=== PATIENT | male | born 1975 | race Caucasian/White ===

== ENCOUNTER 2023-03-22 13:37 | Outpatient (OUT) | payer BC, SELFPAY ==
--- NOTE | 2023-03-22 13:37 | CONS_ITS ---
PAIN MANAGEMENT CONSULTATION ? CONSULTATION DATE: ??03/22/2023 ? TO:? Jaymie Haas M.D. ? CHIEF COMPLAINT:? Includes left lower back pain.? ? HISTORY:? Patient returns today complaining of 3-7/10 pain in her left lower back area, sharp in character, increased with activities such as standing, walking and performing transitioning maneuvers. ?She feels most comfortable in the semi-recumbent position.? Denies any change in bowel and bladder habits or new sensorimotor changes in the lower extremities. ? MEDICATIONS:? Current medications include Flexeril 20 mg at h.s., Percocet which she uses sparingly, 5 mg pills, one pill daily p.r.n.? She reports it does improve her quality of life, level of functioning and sleep pattern.? When she does take the medications, she denies any side effects. ? EXAM:? Notable for patient having no clinical radiculopathy or myelopathy involving the lower extremities; however, she has severe pain with lumbar facet loading maneuvers on the left side.? It appears to be most significant at possibly the L4 level.? She has significant myofascial spasm, which is also quite severe, along the left erector spinae muscle. ? IMPRESSION:? Our impression is patient appears to have chronic pain secondary to lumbosacral spondylosis on the left side, possibly most severe at the L4-5 level.? It was difficult to determine the level involved.? There is associated significant myofascial spasm of the left erector spinae muscle. ? RECOMMENDATIONS:? I have recommended she undergo lumbosacral spine films.? I have placed a skin marker over the most painful area, and review of the same revealed the patient to have a skin marker over the left L3-L4 facet joint area.? I have discontinued Flexeril.? I have placed her on Zanaflex 4 mg pills, half a pill to one pill t.i.d.? I did start aquatic therapy and to consider proceeding with trigger point injection of the left erector spinae muscle in the office.? Will see the patient back in the office in approximately 4-6 weeks? time or sooner if needed. ? As part of providing excellent, safe, comprehensive care, the following was completed at our patient's visit: ? 1. A medication reconciliation and review to ensure accurate knowledge of current/active medications, including asking our patients to inform us about any raqr-nmn-qmjkaoc medications or herbal remedies/nutritional supplements/alternative remedies. ? 2. A review to specifically ensure our patients have had annual screening for: elevated body mass index (BMI, see intake chart for exact total), tobacco use, screening for depression, and screening for unhealthy alcohol use.? When screening is concerning, patients are provided with education and the specific recommendation to discuss the concerning health issue and treatment options with their primary care provider.? MTDD
== END 2023-03-22 13:38 | disposition home or self-care (01) ==
LOC: PM 13:37
PROVIDERS: PCP Family Medicine; Visit Provider Nurse Practitioner
DX: M54.50 Low back pain, unspecified (principal); M47.816 Spondylosis without myelopathy or radiculopathy, lumbar region; M51.36 Other intervertebral disc degeneration, lumbar region; M47.817 Spondylosis without myelopathy or radiculopathy, lumbosacral region; G89.29 Other chronic pain; M62.838 Other muscle spasm
CPT/HCPCS: 72114; G0463

== ENCOUNTER 2023-03-22 14:40 | Outpatient (OUT) | payer BC, SELFPAY ==
--- NOTE | 2023-03-22 | XR_ITS ---
The [address] [address] Patient Name: SUSHILA YATES MRN: [id number] date: 1975 Sex: M Assigned Patient Location: [facility] Current Patient Location: Accession/Order Number: [id number] Exam Date: 03/22/2023 15:19 Report Date: 03/23/2023 05:39 At the request of: SANDY SALAZAR Procedure: XR lumbar spine 6V w bending EXAMINATION: XR lumbar spine 6V w bending HISTORY: Lumbar Pain , chronic COMPARISON: No relevant comparison available. FINDINGS: BONES: Mild degenerative facet arthropathy L3-L4 through L5-S1. No significant spondylosis, scoliosis, fracture, or visible bony lesion. DISC SPACES: Slight disc space narrowing L4-L5, L5-S1. PARASPINOUS: Negative. No paraspinous abnormality is seen. OTHER: Skin surface marker projects posterior to the L3-L4 left facet. XR/XR lumbar spine 6V w bending IMPRESSION: 1. Mild degenerative disc disease and facet arthropathy of the lower lumbar spine. Electronically authenticated by: ROBERT RAI Date: 03/23/2023 05:39
== END 2023-03-22 14:41 | disposition home or self-care (01) ==
PROVIDERS: PCP Family Medicine; Visit Provider Anesthesiology Pain Medicine
DX: M54.50 Low back pain, unspecified (principal); M47.816 Spondylosis without myelopathy or radiculopathy, lumbar region; M51.36 Other intervertebral disc degeneration, lumbar region
CPT/HCPCS: 72114

== ENCOUNTER 2023-06-14 14:43 | Outpatient (OUT) | payer BC, SELFPAY ==
--- NOTE | 2023-06-14 | CONS_ITS ---
CONSULTATION DATE: ??06/14/2023 TO:? Jaymie Haas M.D. HISTORY:? Patient was seen today complaining of pain in multiple areas, mainly his left lower back area, ore than the right side.? It was not associated with spasm.? He describes the pain as overall being 5-7/10 pain, sharp in character, increased with activities such as standing, walking and performing transitioning maneuvers.? He feels most comfortable in the semi-recumbent position.? Denies any change in bowel and bladder habits or new sensorimotor changes in the lower extremities.? MEDICATION:? Current medication includes tizanidine 4 mg b.i.d. to t.i.d., Percocet which he takes infrequently.? He reports, when he does take the medicine, it does improve in history symptoms, quality of life and sleep pattern.? Again, he takes this infrequently, possibly two to a maximum of three times per week and he denies any side effects with the use of the same. EXAM:? His examination is notable for patient having no clinical radiculopathy or myelopathy involving the lower extremities.? Patient had severe pain with lumbar facet loading maneuvers occurring bilaterally from L2 through L5, mainly at L2-3 and L4-5, with associated myofascial spasm of the erector spinae muscle, predominantly on the left side, most severe at the L5 level.? Currently, patient has no signs consistent with myelopathy or radiculopathy on today?s visit. IMPRESSION:? Our impression is patient has chronic pain secondary to lumbosacral spondylosis with facet loading pain clinically.? His last RFA performed at L2-3 and L4-5 was on 06/30/2021 and 07/14/2021.? RECOMMENDATIONS:? I recommend we proceed with a bilateral L2-3 and L4-5 RFA under fluoroscopic guidance, with anesthesia.? I have also recommended trigger point injection on today?s visit for the left erector spinae muscle using 2 mL of 2% lidocaine, 2 mL of 0.25% Marcaine and 10 mg of Kenalog.? Of note, status post which, patient reports a marked reduction in pain symptoms.? As part of providing excellent, safe, comprehensive care, the following was completed at our patient's visit: 1. A medication reconciliation and review to ensure accurate knowledge of current/active medications, including asking our patients to inform us about any [id number]-wxmxsoj medications or herbal remedies/nutritional supplements/alternative remedies. 2. A review to specifically ensure our patients have had annual screening for: elevated body mass index (BMI, see intake chart for exact total), tobacco use, screening for depression, and screening for unhealthy alcohol use.? When screening is concerning, patients are provided with education and the specific recommendation to discuss the concerning health issue and treatment options with their primary care provider. JANINE
--- NOTE | 2023-06-14 | CONS_ITS ---
PROCEDURE DATE: ??06/14/2023 PROCEDURE:? Trigger point injection left erector spinae muscle at the L5 level in the office. PREOPERATIVE DIAGNOSIS:? Pain secondary to myofascial spasm left erector spinae muscle, lumbar spondylosis. POSTOPERATIVE DIAGNOSIS:? Pain secondary to myofascial spasm left erector spinae muscle, lumbar spondylosis. SOLUTION USED FOR INJECTION:? 2 mL of 2% lidocaine, 2 mL of 0.25% Marcaine and 10 mg of Kenalog, total of 5 mL, and 3 mL used for the injection at the site. IMMEDIATE COMPLICATIONS:? None. PROCEDURE:? After informed consent was obtained from the patient, placed in the prone position.? Skin overlying the area was prepped with alcohol.? A 25 gauge 1 ?? needle was inserted at the substance of the left erector spinae muscle, approximately 2 cm from midline at the L5 level.?? Needle tip was advanced there was a mild twitch response, at which point we injected 3 mL of solution.? No indication of intravascular or intraneural needle tip placement or injection.? Patient tolerated the procedure well without complications, reports a reduction in pain symptoms post procedurally. JANINE
== END 2023-06-14 14:44 | disposition home or self-care (01) ==
LOC: PM 14:43
PROVIDERS: PCP Family Medicine; Visit Provider Anesthesiology Pain Medicine
DX: M62.838 Other muscle spasm (principal); M47.816 Spondylosis without myelopathy or radiculopathy, lumbar region; M47.817 Spondylosis without myelopathy or radiculopathy, lumbosacral region
CPT/HCPCS: 20552

== ENCOUNTER 2023-06-28 09:46 | Day surgery (SDC) | payer BC, SELFPAY ==
[2023-06-28 10:34] VITALS: BP 159/102; PULSE 69; RESP 16; TEMP 37.3; O2SAT 96
[2023-06-28] MEDS: 0.9 % SODIUM CHLORIDE 500 ML IV (10:44)
[2023-06-28] MEDS: METHYLPREDNISOLONE ACETATE 40 MG/ML VIAL INJ (11:57)
[2023-06-28] MEDS: LIDOCAINE HCL 2% 400 MG/20 ML MDV 15 ML INJ (11:57)
[2023-06-28] MEDS: BUPIVACAINE HCL 0.25% PF 25 MG/10 ML VIAL 6 ML INJ (11:57)
--- NOTE | 2023-06-28 12:12 | W.PM.PROCNOT ---
Date of procedure: 06/28/23 Pre-op diagnosis: Lumbar Spondylosis Post-op diagnosis: same as pre-op Procedure: Bilateral Lumbar 2/3, 4/5 Radiofrequency ablation Under fluoroscopic guidance Rhizotomy was created using radio frequency ablation at 80?C for 90 seconds 1 to 2 lesions created at each site. Post lesioning injection of 2 mL each of 0.25% Marcaine and 2% lidocaine with Depo-Medrol 40mg. 0.5 to 1 mL injected at each site IV in place yes If Intravenous fluids: NS at KVO Anesthesia local 2% lidocaine for Anesthesia Other: MAC Timeout process compliant After informed consent obtained.Patient brought to the procedure room placed in the prone position skin overlying the area was prepped and draped in a sterile fashion using betadine. 25 gauge needle was used to create a skin wheal over each of the targeted areas utilizing 2% lidocaine. A rhizotomy needle with a 10 mm active tip was inserted over each of the anesthetized areas and directed towards each of the medial branches accomplished under fluoroscopic guidance. after encountering the same we had positive sensory stimulation, negative motor stimulation was noted. lesions were then created. Post lesioning, steroid solution was injected needles removed. Patient was transferred to recovery room in stable condition to be discharged home after meeting criteria. Anesthesia: MAC Surgeon: Sha Johnson Condition: stable
[2023-06-28 12:23] VITALS: BP 154/99; PULSE 80; RESP 16; O2SAT 97
--- NOTE | 2023-06-28 16:37 | PC.NURSE ---
Pt was advised at time of discharge to take BP med when he returned home as he had skipped it early am of procedure d/t NPO.
== END 2023-06-28 12:54 | disposition home or self-care (01) ==
LOC: SURGOUT 09:46
PROVIDERS: PCP Family Medicine; Visit Provider Anesthesiology Pain Medicine
DX: M47.816 Spondylosis without myelopathy or radiculopathy, lumbar region (principal)
CPT/HCPCS: 64635; 64636; J1030; J2704

== ENCOUNTER 2023-07-20 09:47 | Outpatient (OUT) | payer BC, SELFPAY ==
--- NOTE | 2023-07-20 10:18 | P.CN_ITS ---
Consult Note: HPI Data of Consult Patient: known to practice within the last 3 years Requesting Physician: Cheryl Arango NP Primary Care Provider: Jaymie Haas MD Consult Narrative Reason for consult: f/u Narrative: Prosper Milian a pleasant 47 year old male presents for evaluation and management of chronic pain. today 0/10, reporting 100% relief in pain and functional improvement post bilateral L2,3 4,5 thermal RFA. Finds benefit from current medication regimen, tolerating well without side effects. cc:: CC: Cheryl Arango NP Review of Systems ROS Status of ROS 10 or more systems reviewed and unremark able except as noted in history and [facility] (Updated 07/20/23 @ 10:25 by Cheryl Arango NP) Subdural hematoma ?S06.5XAA - Traumatic subdural hemorrhage with loss of consciousness status unknown, initial encounter (ICD-10) Osteoarthritis ?M19.90 - Unspecified osteoarthritis, unspecified site (ICD-10) Asthma ?J45.909 - Unspecified asthma, uncomplicated (ICD-10) HTN (hypertension) ?I10 - Essential (primary) hypertension (ICD-10) Meds Home Medications and Allergies Home Medications Medication Instructions Recorded Confirmed Type albuterol sulfate 90 mcg/actuation 2 inh inhalation Q3H PRN shortness 03/22/23 03/22/23 History aerosol inhaler of breath or wheezing dexamethasone 6 mg tablet 6 mg PO DAILY 03/22/23 03/22/23 History diclofenac sodium 50 mg 50 mg PO BID 03/22/23 03/22/23 History tablet,delayed release fluticasone propionate 110 2 inh inhalation BID 03/22/23 03/22/23 History mcg/actuation HFA aerosol inhaler lisinopril 20 mg tablet 20 mg PO DAILY 03/22/23 03/22/23 History metoprolol tartrate 25 mg tablet 25 mg PO DAILY 03/22/23 03/22/23 History ondansetron HCl 8 mg tablet 8 mg PO TID 03/22/23 03/22/23 History oxycodone-acetaminophen 5 mg-325 1 tab PO DAILY 03/22/23 03/22/23 History mg tablet (Endocet) simvastatin 20 mg tablet 20 mg PO DAILY 03/22/23 03/22/23 History sumatriptan succinate 50 mg tablet See Rx Instructions PO .COMPLEX 03/22/23 03/22/23 History tizanidine 4 mg capsule 4 mg PO TID PRN muscle spasticity 03/22/23 03/22/23 History Allergies Allergy/AdvReac Type Severity Reaction Status Date / Time nubain Allergy Unknown Uncoded 03/22/23 15:33 Exam Constitutional Documenting provider has reviewed patient's vital signs: yes Common normals: no apparent distress, oriented x3, healthy appearing, alert and well nourished General appearance: cooperative HENMT Common normals: normocephalic, hearing grossly normal bilaterally and moist oral mucous membranes Head and scalp: normocephalic Eye Common normals: PERRL Pupil: PERRL Neck & C-Spine Common normals: full ROM General: normal visual inspection Chest Common normals: inspection of chest normal Respiratory Common normals: normal respiratory effort, no retractions and no use of accessory muscles Back & Pelvis Lumbar spine/lower back: lumbar ROM normal and other soft tissue findings (right lower paraspinal muscle tenderness) Other: no radiculopathy negative facet loading Extremity Common normals: normal to inspection and full ROM Neuro Common normals: oriented x3, CN's II-XII intact bilaterally, moves all extremities, no focal motor deficits, no sensory deficits noted and deep tendon reflexes 2+ bilaterally Sensorium/orientation: alert Motor exam: strength 5/5 throughout and no movement abnormalities noted Psych Common normals: mental status grossly normal, thought process normal, cooperative, affect normal, speech normal and activity/motor behavior normal Speech: normal speech Thought process: normal thought process Results Additional Findings Additional findings: I have checked an [place] report on this patient today and there are no aberrancies noted in the prescribing history.?? A drug screen was completed and reviewed within the last year, and if there has not been a drug screen completed we ordered one today to monitor higher risk, state monitored pain medication use. As part of providing excellent, safe, comprehensive care, the following was completed at our patient's visit: 1. A medication reconciliation and review to ensure accurate knowledge of current/active medications, including asking our patients to inform us about any osxs-swr-yggrvuc medications or herbal remedies/nutritional supplemen ts/alternative remedies. 2. A review to specifically ensure our patients have had annual screening for: elevated body mass index (BMI), tobacco use, screening for depression, and screening for unhealthy alcohol use. When screening is concerning, patients are provided with education and the specific recommendation to discuss the concerning health issue and treatment options with their primary care provider. Assessment and Plan Assessment and Plan (1) Lumbar spondylosis: (2) Chronic prescription opiate use: Assessment and Plan: I feel these medications are improving the patient's quality of life and allow them to tolerate activities of daily living as well as participate in recreational activity.? The patient does not report intolerable side effects. The patient is NOT opioid naive and non-pharmacologic and non-opioid treatment has failed to significantly relieve the patient's pain and improve functionality. The patient has a diagnosis that is related to a somatic or visceral pain etiology. ? ?? I reviewed with the patient the potential risks and side effects with the use of? opioid medications including but not limited to respiratory depression,? sedation, and even . I verified the patient has access to naloxone should? these effects occur. I advised the patient to avoid the use of any other? sedation substances including alcohol, THC, and benzodiazepines while? taking opioid medications due to the risk of compounding side effects and? detrimental outcomes. I reviewed the REGISTERED RADIATION THERAPIST, pain treatment agreement, urine? drug screen, and opioid start talking forms. The patient was advised to let? their family know they had Naloxone in case they would need to administer? the medication.? ?? A drug screen was completed within the last year, and no aberrancies were noted regarding their use of controlled substances. The patient understands they are subject to the terms and conditions of the pain contract that they have signed. ? ?? I have checked an [place] report on this patient today and there are no aberrancies noted in the prescribing history.? (3) Muscle spasm: Plan continue current medication regimen, tolerating well without side effects. finding functional benefit. f/u as needed
== END 2023-07-20 09:48 | disposition home or self-care (01) ==
LOC: PM 09:47
PROVIDERS: PCP Family Medicine; Visit Provider Nurse Practitioner
DX: M47.816 Spondylosis without myelopathy or radiculopathy, lumbar region (principal); Z79.891 Long term (current) use of opiate analgesic; M62.838 Other muscle spasm
CPT/HCPCS: G0463

== ENCOUNTER 2023-08-22 14:02 | Outpatient (OUT) | payer BC, SELFPAY ==
--- OUTSIDE RECORDS SUMMARY | 2023-08-22 14:14 | XMS_ITS | CCD ---
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 Name Role Phone Jaymie Mart MD Primary Care Provider [phone] HAMILTON CUMMINGS Referring Unavailable JAYMIE MART Primary Care Unavailable JAYMIE MART Primary Care Unavailable HAMILTON CUMMINGS Referring Unavailable Jaymie Mart Unavailable Austin aBrahona Unavailable Kurtis Patel Admitting UnavailKurtis Maldonado Attending Unavailadrianne e Jaymie Mart Primary Care Unavailable PANTOJA ., DR ALLYSON Tellez Attending Unavailable PANTOJA ., DR ALLYSON Tellez Admitting Unavailable MA ., HANNA Consulting Unavailable BARRON, DR JAYMIE Gonzalez Primary Care Unavailable BARRON, DR JAYMIE Gonzalez Primary Care Unavailable LAKSHMIPATHY ., SANDY Admitting Ginger vailable LAKSHMIPATHY ., SANDY Attending Ginger vailable PANTOJA ., DR ALLYSON Tellez Admitting Unavailable PANTOJA ., DR ALLYSON Tellez Consulting Unavailable PANTOJA ., DR ALLYSON Tellez Attending Unavailable BARRON, DR JAYMIE Gonzalez Primary Care Unavailable PANTOJA ., DR ALLYSON Tellez Admitting Unavailable PANTOJA ., DR ALLYSON Tellez Attending Unavailable MA ., HANNA Consulting Unavailable BARRON, DR JAYMIE Gonzalez Primary Care Unavailable PANTOJA ., DR ALLYSON Tellez Admitting Unavailable PANTOJA ., DR ALLYSON Tellez Consulting Unavailable PANTOJA ., DR ALLYSON Tellez Attending Unavailable BARRON, DR JAYMIE Gonzalez Primary Care Unavailable MA ., HANNA Attending Unavailable MA ., HANNA Admitting Unavailable BARRON, DR JAYMIE Gonzalez Primary Care Unavailable DR ROBERT RAI Consulting Unavailable MA ., HANNA Consulting Unavailable BARRON, DR JAYMIE Gonzalez Consulting Unavailable BARRON, DR JAYMIE Gonzalez Attending Unavailable BARRON, DR JAYMIE Gonzalez Admitting Unavailable BARRON, DR JAYMIE Gonzalez Primary Care Unavailable BARRON, DR JAYMIE Gonzalez Primary Care Unavailable BARRON, DR JAYMIE Gonzalez Consulting Unavailable MART, DR JAYMIE Gonzalez Attending Unavailable MART, DR JAYMIE Gonzalez Admitting Unavailable ALFONZO FERNANDEZ Consulting Unavailable MART, DR JAYMIE Gonzalez Primary Care Unavailable MART, DR JAYMIE Gonzalez Consulting Unavailable MART, DR JAYMIE Gonzalez Attending Unavailable MART, DR JAYMIE Gonzalez Admitting Unavailable PANTOJA ., DR ALLYSON Tellez Attending Unavailable PANTOJA ., DR ALLYSON Tellez Admitting Unavailable MA ., HANNA Consulting Unavailable BARRON, DR JAYMIE Gonzalez Primary Care Unavailable PANTOJA ., DR ALLYSON Tlelez Attending Unavailable PANTOJA ., DR ALLYSON Tellez Admitting Unavailable MA ., HANNA Consulting Unavailable BARRON, DR JAYMIE Gonzalez Primary Care Unavailable MART, DR JAYMIE Gonzalez Primary Care Unavailable PANTOJA ., DR ALLYSON Tellez Attending Unavailable PANTOJA ., DR ALLYSON Tellez Admitting Unavailable MA ., HANNA Consulting Unavailable Allergies Allergy Classification Reported Allergen(s) Allergy Type Date of Onset Reaction(s) Facility Nalbuphine (2 sources) Nalbuphine Drug Allergy 7 [facility] Opioid Agonists (2 sources) traMADol Drug Allergy 1 Nausea And Vomiting [facility] (13 sources) Nalbuphine; Translations: [Nubain] Drug Allergy 7 BP dropped [facility] Repository (5 sources) traMADol Drug Allergy 6 Unknown [facility] Other (5 sources) Nubain *ANALGESICS - OPIOID* Propensity to adverse reactions Unknown [facility] Other (3 sources) Allergies Reconciled Propensity to adverse reactions Unknown [facility] Other (3 sources) patient allergy list reviewed by nurse or physicia Propensity to adverse reactions 9 Comment:Done [facility] Other Medications Current Medications Medication Drug Class(es) Dates Sig (Normalized) Sig (Original) acetaminophen 325 mg / oxyCODONE hydrochloride 5 mg oral tablet (3 sources) Opioid Agonist take 1 tablet by mouth every six hours oxyCODONE-Acetamin ophen 5-325 MG 1 tablet as needed Orally every 6 hrs Active albuterol 0.83 mg/ml inhalation solution (20 sources) beta2-Adrenergic Agonist Albuterol Sulfate (2.5 MG/3ML) 0.083% 3 mL as needed Inhalation every 6 hrs Active take 1 puff(s) by in halation every four hours as needed Albuterol Sulfate HFA 108 (90 Base) MCG/ACT INHALE 1 PUFF INTO THE LUNGS EVERY 4 HOURS NEEDED for 30 Active Albuterol Sulfat e (2.5 MG/3ML) 0.083% 3 mL as needed Inhalation every 6 hrs Active take 1 puff(s) by in halation every four hours as needed Albuterol Sulfate HFA 108 (90 Base) MCG/ACT INHALE 1 PUFF INTO THE LUNGS EVERY 4 HOURS NEEDED for 30 Active take 1 puff(s) by in halation every four hours as needed Albuterol Sulfate HFA 108 (90 Base) MCG/ACT 1 puff as needed Inhalation every 4 hrs for 30 days Active azithromycin 250 mg oral tablet (3 sources) Macrolide Antimicrobial Start: 06-03-2023 Azithromycin 250 MG as directed Orally 2 tabs po today, then 1 tab daily x 4 more days for May, Active Start: 12-10-2022 Azithromycin 2 50 MG as directed Orally 2 tabs po today, then 1 tab daily x 4 more days for December, Active cyclobenzaprine hydrochloride 10 mg oral tablet (11 sources) Muscle Relaxant take 2 tablets by mouth once daily at bedtime Cyclobenzaprine HCl 10 MG 2 tabs @ HS Orally Once a day Active diclofenac potassium 50 mg oral tablet (11 sources) Nonsteroidal Anti-inflammatory Drug take 1.5 tablets by mouth once daily Diclofenac Potassium 50 MG 1.5 tabs Orally once a day Active lisinopril 20 mg oral tablet (13 sources) Angiotensin Converting Enzyme Inhibitor take 1 tablet by mouth once daily Lisinopril 20 MG TAKE 1 TABLET BY MOUTH EVERY DAY for 90 Active take 1 tablet by mouth once zuleima y lisinopril (PRINIVIL;ZESTRIL) 10 MG tablet Take 10 mg by mouth daily 0 Active meclizine hydrochloride 12.5 mg oral tablet (1 source) Antiemetic Start: 11-02-2022 take 1 tablet by mouth every eight hours as needed for dizziness Meclizine HCl 12.5 MG 1 tablet as needed Orally every 8 hours as needed for dizziness, may cause sedation for 5 days Oct, Active meloxicam 15 mg oral tablet (2 sources) Nonsteroidal Anti-inflammatory Drug Start: 11-16-2020 take 1 tablet by mouth once daily meloxicam (MOBIC) 15 MG tablet TAKE 1 TABLET BY MOUTH EVERY DAY 0 11/16/2020 Active 24 hr metoprolol succinate 25 mg extended release oral tablet (11 sources) beta-Adrenergic Montserrat take 1 tablet by mouth once daily Metoprolol Succinate ER 25 MG TAKE 1 TABLET BY MOUTH EVERY DAY for 90 Active predniSONE 20 mg oral tablet (6 sources) Start: 12-02-2022 take 2 tablets by mouth every twenty-four hours predniSONE 20 MG 2 tablets Orally Once a day for 5 days Nov, Active Start: 12-02-2022 take 2 tablets by mouth every twenty-four hours simvastatin 20 mg oral tablet (13 sources) HMG-CoA Reductase Inhibitor take 1 tablet by mouth once daily Simvastatin 20 MG TAKE 1 TABLET BY MOUTH EVERY DAY for 90 Active tiZANidine 4 mg oral tablet (2 sources) Central alpha-2 Adrenergic Agonist Start: take 1 tablet by mouth three times daily as needed tiZANidine (ZANAFLEX) 4 MG tablet TAKE 1 TABLET BY MOUTH 3 TIMES A DAY NEEDED 0 11/20/2020 Active traZODone hydrochloride 50 mg oral tablet (2 sources) Serotonin Reuptake Inhibitor Start: take 1 tablet by mouth every twenty-four hours traZODone HCl 50 MG 1 tablet at bedtime as needed Orally Once a day for 30 day(s) Jul, Active valACYclovir 1000 mg oral tablet (1 source) Herpesvirus Nucleoside Analog DNA Polymerase Inhibitor, Herpes Simplex Virus Nucleoside Analog DNA Polymerase Inhibitor, Herpes Zoster Virus Nucleoside Analog DNA Polymerase Inhibitor take 1 tablet by mouth twice daily Valtrex 1 GM 1 tab Orally bid for 1 days Active Completed/Discontinued Medications Medication Drug Class(es) Dates Sig (Normalized) Sig (Original) gabapentin 100 mg oral capsule (1 source) Anti-epileptic Agent Start: 01-30-2021 End: 02-27-2021 gabapentin (NEURONTIN) 100 MG capsule TAKE 2 PILLS THREE TIMES PER DAY 180 capsule 0 01/30/2021 02/27/2021 Discontinued (REORDER) iopamidol (ISOVUE-M 200) 41 % injection (1 source) Start: 02-25-2021 End: 02-25-2021 iopamidol (ISOVUE-M 200) 41 % injection 10 ml lidocaine hydrochloride 20 mg/ml injection (1 source) Antiarrhythmic, Amide Local Anesthetic Start: 02-25-2021 End: 02-25-2021 lidocaine 2 % injection Problems Active Problems Problem Classification Problem Date Documented Date Episodic/Chronic Abdominal pain (6 sources) Generalized abdominal pain; Translations: [Generalized abdominal pain] Onset: 05-01-2014 Episodic Acute bronchitis (1 source) Acute bronchitis, unspecified Episodic Anxiety disorders (13 sources) Generalized anxiety disorder; Translations: [Generalized anxiety disorder] Onset: 08-02-2018 Chronic Asthma (11 sources) Reactive airways dysfunction syndrome; Translations: [Unspecified asthma, uncomplicated] Chronic Chronic obstructive pulmonary disease and bronchiectasis (3 sources) Acute exacerbation of chronic asthmatic bronchitis; Translations: [Chronic obstructive asthma, with (acute) exacerbation] Onset: 10-29-2016 Chronic Chronic obstructive pulmonary disease and bronchiectasis (4 sources) Bronchitis, not specified as acute or chronic; Translations: [BRONCHITIS NOT SPEC ACUTE/CHRON] Onset: 12-10-2022 Episodic Conditions associated with dizziness or vertigo (1 source) Benign paroxysmal vertigo, left ear Episodic Disorders of lipid metabolism (14 sources) Hyperlipidemia; Translations: [Hyperlipidemia, unspecified] Chronic Essential hypertension (6 sources) Benign essential hypertension; Translations: [Essential hypertension, benign] Onset: 01-10-2019 Chronic Headache; including migraine (17 sources) Complicated migraine; Translations: [Migraine with aura, not intractable, without status migrainosus] Chronic Joint disorders and dislocations; trauma-related (3 sources) Traumatic arthropathy of the shoulder region; Translations: [Traumatic arthropathy, shoulder region] Onset: 03-08-2017 Chronic Malaise and fatigue (18 sources) Fatigue; Translations: [Other fatigue] Onset: 07-06-2022 Episodic Miscellaneous mental health disorders (4 sources) Primary insomnia; Translations: [Primary insomnia] Chronic Noninfectious gastroenteritis (14 sources) Acute gastroenteritis; Translations: [Noninfective gastroenteritis and colitis, unspecified] Episodic Osteoarthritis (1 source) Unilateral primary osteoarthritis, left hip; Translations: [UNI PRIM OSTEOARTHRITIS LT HIP] Onset: 04-22-2022 Chronic Other circulatory disease (12 sources) Elevated blood-pressure reading without diagnosis of hypertension; Translations: [Elevated blood-pressure reading, without diagnosis of hypertension] Episodic Other connective tissue disease (4 sources) Cramp and spasm; Translations: [CRAMP AND SPASM] Onset: 09-16-2022 Episodic Other connective tissue disease (5 sources) Other muscle spasm; Translations: [OTHER MUSCLE SPASM] Onset: 06-24-2022 Episodic Other injuries and conditions due to external causes (3 sources) Injury of left lower leg; Translations: [Unspecified injury of left lower leg, initial encounter] Episodic Other nervous system disorders (1 source) Other chronic pain; Translations: [OTHER CHRONIC PAIN] Onset: 06-02-2022 Chronic Other non-traumatic joint disorders (17 sources) Shoulder joint pain; Translations: [Pain in right shoulder] Onset: 03-08-2017 Episodic Other nutritional; endocrine; and metabolic disorders (9 sources) Body mass index 30+ - obesity; Translations: [Obesity, unspecified] Chronic Other nutritional; endocrine; and metabolic disorders (6 sources) Obese class II; Translations: [Body mass index (BMI) 36.0-36.9, adult] Chronic Other nutritional; endocrine; and metabolic disorders (9 sources) Obese class I; Translations: [Body mass index 32.0-32.9, adult] Onset: 10-29-2016 Chronic Other nutritional; endocrine; and metabolic disorders (3 sources) Simple obesity ; Translations: [Other obesity due to excess calories] Onset: 10-29-2016 Chronic Other nutritional; endocrine; and metabolic disorders (3 sources) Obesity; Translations: [Obesity, unspecified] Chronic Other skin disorders (11 sources) Other hypertrophic disorders of the skin; Translations: [Inflamed skin tag] Episodic Other skin disorders (3 sources) Hypertrophic condition of skin; Translations: [Other hypertrophic disorders of the skin] Episodic Other upper respiratory disease (11 sources) Rhinitis; Translations: [Chronic rhinitis] Chronic Other upper respiratory disease (3 sources) Seasonal allergic rhinitis; Translations: [Other seasonal allergic rhinitis] Onset: 01-05-2018 Chronic Other upper respiratory infections (6 sources) Chronic maxillary sinusitis; Translations: [Chronic maxillary sinusitis] Onset: 10-29-2016 Chronic Otitis media and related conditions (3 sources) Non-suppurative otitis media; Translations: [Unspecified nonsuppurative otitis media, right ear] Episodic Residual codes; unclassified (1 source) Family history of malignant neoplasm of digestive organs; Translations: [Family history of malignant neoplasm of digestive organs] Onset: 11-29-2022 Episodic Residual codes; unclassified (3 sources) Family history of malignant neoplasm of gastrointestinal tract; Translations: [Family history of malignant neoplasm of digestive organs] Episodic Respiratory failure; insufficiency; arrest (adult) (11 sources) Chronic respiratory failure; Translations: [Chronic respiratory failure with hypoxia] Chronic Spondylosis; intervertebral disc disorders; other back problems (20 sources) Lumbar spondylosis; Translations: [Spondylosis without myelopathy or radiculopathy, lumbar region] Onset: 02-19-2021 02-19-2021 Chronic Spondylosis; intervertebral disc disorders; other back problems (20 sources) Sciatica; Translations: [Sciatica, left side] Onset: 05-08-2018 02-19-2021 Episodic Syncope (15 sources) Syncope and collapse; Translations: [Syncope and collapse] Onset: 03-31-2022 Episodic Unclassified (1 source) Encounter for screening for malignant neoplasm of colon; Translations: [Encounter for screening for malignant neoplasm of colon] Onset: 11-29-2022 Unclassified (4 sources) LOW BACK PAIN, UNSPECIFIED; Translations: [LOW BACK PAIN, UNSPECIFIED] Onset: 06-02-2022 Unclassified (3 sources) History of disease caused by Severe acute respiratory syndrome coronavirus 2 (situation); Translations: [Personal history of COVID-19] Viral infection (1 source) Viral infection, unspecified Episodic Viral infection (3 sources) Disease caused by 2019-nCoV; Translations: [COVID-19] Past or Other Problems Problem Classification Problem Date Documented Da te Episodic/Chronic Allergic reactions (3 sources) Contact dermatitis; Translations: [Contact dermatitis and other eczema, due to unspecified cause] Onset: 07-18-2018 Episodic Bacterial infection; unspecified site (3 sources) Bacterial infectious disease; Translations: [Bacterial infection, unspecified, in conditions classified elsewhere and of unspecified site] Onset: 10-29-2016 Episodic Fluid and electrolyte disorders (3 sources) Dehydration; Translations: [Dehydration] Onset: 01-05-2018 Episodic Headache; including migraine (3 sources) Cough headache syndrome; Translations: [Primary cough headache] Onset: 10-29-2016 Episodic Immunizations and screening for infectious disease (2 sources) Contact with or exposure to other viral diseases; Translations: [Contact with and (suspected) exposure to covid-19] Onset: 08-26-2020 02-19-2021 Episodic Influenza (3 sources) Upper respiratory tract infection due to Influenza; Translations: [Influenza due to unidentified influenza virus with other respiratory manifestations] Onset: 11-26-2015 Episodic Mycoses (3 sources) Tinea cruris; Translations: [Tinea cruris] Onset: 05-08-2018 Episodic Open wounds of extremities (3 sources) Open wound of hand except fingers without complication; Translations: [Open wound of hand except finger(s) alone, without mention of complication] Onset: 08-25-2015 Episodic Other circulatory disease (2 sources) Elevated blood-pressure reading, without diagnosis of hypertension; Translations: [ELEVATED BP READING W/O DX HTN] Onset: 04-01-2022 Episodic Other connective tissue disease (3 sources) Ganglion of joint; Translations: [Ganglion of joint] Onset: 01-10-2019 Episodic Other connective tissue disease (3 sources) Cramp in limb; Translations: [Cramp of limb] Onset: 02-28-2018 Episodic Other lower respiratory disease (6 sources) Cough; Translations: [Cough, unspecified] Onset: 12-04-2015 Episodic Other non-traumatic joint disorders (4 sources) Pain in left hip; Translations: [PAIN IN LEFT HIP] Onset: 04-20-2022 Episodic Other non-traumatic joint disorders (3 sources) Arthralgia of the ankle and/or foot; Translations: [Pain in joint, ankle and foot] Onset: 05-03-2016 Episodic Residual codes; unclassified (3 sources) Family history of diabetes mellitus; Translations: [Family history of diabetes mellitus] Onset: 01-25-2014 Episodic Residual codes; unclassified (3 sources) C/O - a back symptom; Translations: [Other symptoms referable to back] Onset: 05-17-2016 Episodic Residual codes; unclassified (3 sources) Insomnia; Translations: [Insomnia, unspecified] Onset: 08-02-2018 Episodic Sprains and strains (6 sources) Lumbar sprain; Translations: [Sprain of ligaments of lumbar spine, initial encounter] Onset: 08-27-2014 Episodic Unclassified (1 source) LOW BACK PAIN, UNSPECIFIED; Translations: [LOW BACK PAIN, UNSPECIFIED] Onset: 06-01-2022 Unclassified (3 sources) Tetanus-diphtheria [Td] [DT]; Translations: [Tetanus-diphtheria [Td] [DT]] Onset: 08-25-2015 Results Test Name Value Interpretation Reference Range Facility XR CHEST 2 Von 12-10-2022 XR CHEST 2 V EXAM: XR CHEST 2 V HISTORY: Bronchitis , cough and symptoms of a cold for the past 3 days. COMPARISON: 08/22/2021 TECHNIQUE: Upright PA and lateral chest x-ray FINDINGS: There has been interval clearing of the bilateral infiltrates. No acute infiltrate, effusion or pneumothorax is identified. The heart is not enlarged and the vasculature is not distended. Calcification of the costochondral cartilage is noted in the osseous structures are grossly intact. IMPRESSION: Interval clearing of the previously noted bilateral infiltrates. There is no evidence of a focal infiltrate or cardiac decompensation at this time. Electronically authenticated by: ALFONZO FERNANDEZ Date: 2022-12-10 12:03 Normal [facility] CBC AUTO DIFFon 07-06-2022 BASO # 0.1 103/ul Normal 0.0-0.1 [facility] Comment on above: Performed By: #### B CATHY, TSH #### [facility] [address] [address] [address] Fazal Shearer Basophils/100 WBC (Bld) 0.8 % Normal 0.2-2.0 [facility] Comment on above: Performed By: #### B CATHY, TSH #### [facility] [address] [place] [address] Dr. Fazal Shearer EO # 0.2 103/ul Normal 0.0-0.7 [facility] Comment on above: Performed By: #### B MP, TSH #### [facility] [address] [address] [address] Fazal Shearer Eosinophils/100 WBC (Bld) 2.1 % Normal 0.9-7.0 [facility] Comment on above: Performed By: #### B MP, TSH #### [facility] [address] [place] [address] Dr. Fazal Shearer Erythrocyte distribution width (RBC) [Ratio] 12.7 % Normal 11.0-15.0 [facility] Comment on above: Performed By: #### B MP, TSH #### [facility] [address] [address] [address] Fazal Shearer Hematocrit (Bld) [Volume fraction] 45.2 % Normal 42.0-54.0 [facility] Comment on above: Performed By: #### B MP, TSH #### [facility] [address] [place] [address] Dr. Fazal Shearer Hemoglobin (Bld) [Mass/Vol] 15.4 g/dL Normal 14.0-18.0 [facility] Comment on above: Performed By: #### B MP, TSH #### [facility] [address] [place] [address] Dr. Fazal Shearer IG # 0.07 10e3/ul Critically high 0.00-0.03 [facility] Comment on above: Performed By: #### B MP, TSH #### [facility] [address] [place] [address] Dr. Fazal Shearer IG % 0.9 % Critically high 0.0-0.5 [facility] Comment on above: Performed By: #### B MP, TSH #### [facility] [address] [place] [address] Dr. Fazal Shearer LYMPH # 2.3 103/ul Normal 1.2-3.8 [facility] Comment on above: Performed By: #### B MP, TSH #### [facility] [address] [place] [address] Dr. Fazal Shearer Lymphocytes/100 WBC (Bld) 30.2 % Normal 20.5-60.0 [facility] Comment on above: Performed By: #### B MP, TSH #### [facility] [address] [place] [address] Dr. Fazal Shearer MANUAL DIFF REQ NO Normal [facility] Comment on above: Performed By: #### B MP, TSH #### [facility] [address] [place] [address] Dr. Fazal Shearer MCH (RBC) [Entitic mass] 28.8 pg Normal 25.9-34.0 [facility] Comment on above: Performed By: #### B MP, TSH #### [facility] [address] [place] [address] Dr. Fazal Shearer MCHC (RBC) [Mass/Vol] 34.1 g/dL Normal 29.9-35.2 [facility] Comment on above: Performed By: #### B MP, TSH #### [facility] [address] [place] [address] Dr. Fazal Shearer MCV (RBC) [Entitic vol] 84.6 fL Normal 80.0-94.0 [facility] Comment on above: Performed By: #### B MP, TSH #### [facility] [address] [place] [address] Dr. Fazal Shearer MONO # 0.6 103/ul Normal 0.3-0.8 [facility] Comment on above: Performed By: #### B MP, TSH #### [facility] [address] [place] [address] Dr. Fazal Shearer Monocytes/100 WBC (Bld) 7.5 % Normal 1.7-12.0 [facility] Comment on above: Performed By: #### B MP, TSH #### [facility] [address] [place] [address] Dr. Fazal Shearer NEUT # 4.4 103/ul Normal 1.4-6.5 [facility] Comment on above: Performed By: #### B MP, TSH #### [facility] [address] [place] [address] Dr. Fazal Shearer Neutrophils/100 WBC (Bld) 58.5 % Normal 43.0-75.0 [facility] Comment on above: Performed By: #### B MP, TSH #### [facility] [address] [place] [address] Dr. Fazal Shearer Platelet mean volume (Bld) [Entitic vol] 9.1 fL Critically low 9.5-13.5 [facility] Comment on above: Performed By: #### B MP, TSH #### [facility] [address] [place] [address] Dr. Fazal Shearer PLT 245 103/ul Normal 150-450 [facility] Comment on above: Performed By: #### B MP, TSH #### [facility] [address] [place] [address] Dr. Fazal Shearer RBC 5.34 106/ul Normal 4.70-6.10 [facility] Comment on above: Performed By: #### B MP, TSH #### [facility] [address] [place] [address] Dr. Fazal Shearer WBC 7.5 103/ul Normal 4.0-11.[address] [facility] Comment on above: Performed By: #### B MP, TSH #### [facility] [address] [place] [address] Dr. Fazal Shearer PROF CHEM 8 (BAS METB)on Anion gap [Moles/Vol] 9.3 mmol/L Normal [facility] Comment on above: Performed By: #### B CATHY, TSH #### [facility] [address] [place] [address] Dr. Fazal Shearer Calcium [Mass/Vol] 9.2 mg/dL Normal 8.5-10.1 [facility] Comment on above: Performed By: #### B MP, TSH #### [facility] [address] [place] [address] Dr. Fazal Shearer Chloride [Moles/Vol] 105 mmol/L Normal 98-[address] [facility] Comment on above: Performed By: #### B MP, TSH #### [facility] [address] [place] [address] Dr. Fazal Shearer CO2 [Moles/Vol] 31.9 mmol/L Normal 21.0-32.0 [facility] Comment on above: Performed By: #### B MP, TSH #### [facility] [address] [place] [address] Dr. Fazal Shearer Creatinine [Mass/Vol] 1.04 mg/dL Normal 0.70-1.30 [facility] Comment on above: Performed By: #### B MP, TSH #### [facility] [address] [place] [address] Dr. Fazal Shearer EGFR-AF LUXEMBOURGER >60 Normal >=60 [facility] Comment on above: Performed By: #### B MP, TSH #### [facility] [address] [place] [address] Dr. Fazal Shearer EGFR-NON AF LUXEMBOURGER >60 Normal >=60 [facility] Comment on above: Performed By: #### B MP, TSH #### [facility] [address] [address] [address] Fazal Shearer Glucose [Mass/Vol] 102 mg/dL Normal 74-106 [facility] Comment on above: Performed By: #### B MP, TSH #### [facility] [address] [place] [address] Dr. Fazal Shearer Potassium [Moles/Vol] 5.2 mmol/L Critically high 3.5-5.1 [facility] Comment on above: Performed By: #### B MP, TSH #### [facility] [address] [place] [address] Dr. Fazal Shearer Sodium [Moles/Vol] 141 mmol/L Normal 136-145 [facility] Comment on above: Performed By: #### B MP, TSH #### [facility] [address] [place] [address] Dr. Fazal Shearer Urea nitrogen [Mass/Vol] 15.0 mg/dL Normal 7.0-18.0 [facility] Comment on above: Performed By: #### B MP, TSH #### [facility] [address] [place] [address] Dr. Fazal Shearer Urea nitrogen/Creatinine [Mass ratio] 14.4 mg/mg Normal [facility] Comment on above: Performed By: #### B MP, TSH #### [facility] [address] [place] [address] Dr. Fazal Shearer TSHon 07-06-2022 TSH 1.300 uIU/mL Normal 0.358-3.740 [facility] Comment on above: Performed By: #### B MP, TSH #### [facility] [address] [place] [address] Dr. Fazal Shearer CBC AUTO DIFFon 03-31-2022 BASO # 0.1 103/ul Normal 0.0-0.1 [facility] Comment on above: Performed By: #### B MP, TSH #### [facility] [address] [place] [address] Dr. Fazal Shearer Basophils/100 WBC (Bld) 0.9 % Normal 0.2-2.0 [facility] Comment on above: Performed By: #### B MP, TSH #### [facility] [address] [place] [address] Dr. Fazal Shearer EO # 0.2 103/ul Normal 0.0-0.7 [facility] Comment on above: Performed By: #### B MP, TSH #### [facility] [address] [place] [address] Dr. Fazal Shearer Eosinophils/100 WBC (Bld) 3.2 % Normal 0.9-7.0 [facility] Comment on above: Performed By: #### B CATHY, TSH #### [facility] [address] [place] [address] Dr. Fazal Shearer Erythrocyte distribution width (RBC) [Ratio] 12.2 % Normal 11.0-15.0 [facility] Comment on above: Performed By: #### B MP, TSH #### [facility] [address] [place] [address] Dr. Fazal Shearer Hematocrit (Bld) [Volume fraction] 41.3 % Critically low 42.0-54.0 [facility] Comment on above: Performed By: #### B MP, TSH #### [facility] [address] [place] [address] Dr. Fazal Shearer Hemoglobin (Bld) [Mass/Vol] 14.1 g/dL Normal 14.0-18.0 [facility] Comment on above: Performed By: #### B MP, TSH #### [facility] [address] [place] [address] Dr. Fazal Shearer IG # 0.05 10e3/ul Critically high 0.00-0.03 [facility] Comment on above: Performed By: #### B MP, TSH #### [facility] [address] [address] [address] Fazal Shearer IG % 0.9 % Critically high 0.0-0.5 [facility] Comment on above: Performed By: #### B MP, TSH #### [facility] [address] [address] [address] Fazal Shearer LYMPH # 2.0 103/ul Normal 1.2-3.8 [facility] Comment on above: Performed By: #### B MP, TSH #### [facility] [address] [address] [address] Fazal Shearer Lymphocytes/100 WBC (Bld) 33.5 % Normal 20.5-60.0 [facility] Comment on above: Performed By: #### B MP, TSH #### [facility] [address] [place] [address] Dr. Fazal Shearer MANUAL DIFF REQ NO Normal [facility] Comment on above: Performed By: #### B MP, TSH #### [facility] [address] [place] [address] Dr. Fazal Shearer MCH (RBC) [Entitic mass] 29.3 pg Normal 25.9-34.0 [facility] Comment on above: Performed By: #### B MP, TSH #### [facility] [address] [place] [address] Dr. Fazal Shearer MCHC (RBC) [Mass/Vol] 34.1 g/dL Normal 29.9-35.2 [facility] Comment on above: Performed By: #### B MP, TSH #### [facility] [address] [place] [address] Dr. Fazal Shearer MCV (RBC) [Entitic vol] 85.9 fL Normal 80.0-94.0 [facility] Comment on above: Performed By: #### B MP, TSH #### [facility] [address] [address] [address] Fazal Shearer MONO # 0.5 103/ul Normal 0.3-0.8 [facility] Comment on above: Performed By: #### B MP, TSH #### [facility] [address] [address] [address] Fazal Shearer Monocytes/100 WBC (Bld) 8.4 % Normal 1.7-12.0 [facility] Comment on above: Performed By: #### B MP, TSH #### [facility] [address] [place] [address] Dr. Fazal Shearer NEUT # 3.1 103/ul Normal 1.4-6.5 [facility] Comment on above: Performed By: #### B MP, TSH #### [facility] [address] [place] [address] Dr. Fazal Shearer Neutrophils/100 WBC (Bld) 53.1 % Normal 43.0-75.0 [facility] Comment on above: Performed By: #### B MP, TSH #### [facility] [address] [place] [address] Dr. Fazal Shearer Platelet mean volume (Bld) [Entitic vol] 9.3 fL Critically low 9.5-13.5 [facility] Comment on above: Performed By: #### B MP, TSH #### [facility] [address] [place] [address] Dr. Fazal Shearer PLT 248 103/ul Normal 150-450 [facility] Comment on above: Performed By: #### B MP, TSH #### [facility] [address] [place] [address] Dr. Fazal Shearer RBC 4.81 106/ul Normal 4.70-6.10 [facility] Comment on above: Performed By: #### B MP, TSH #### [facility] [address] [place] [address] Dr. Fazal Shearer WBC 5.9 103/ul Normal 4.0-11.0 [facility] Comment on above: Performed By: #### B MP, TSH #### [facility] [address] [place] [address] Dr. Fazal Shearer ECHOCARDIO M/2D COMPLETEon 0 03-31-2022 ECHOCARDIO M/2D COMPLETE Patient: SUSHILA YATES Exam Date: 03/31/2022 : 1975 Gender:M Ordering : DR JAYMIE MART M.D. Admission #: [id number] Family : Order #: [id number] CLICK HERE TO VIEW EXAM ECHOCARDIOGRAM REPORT PROCEDURE: CARDIO PULMONARY ECHOCARDIO M/2D COMP INDICATIONS: Syncope and collapse, hypertension COMPARISON: None. DESCRIPTION: COMPLETE ECHOCARDIOGRAM Real-time transthoracic echocardiography with 2D, M-mode, spectral and color flow Doppler performed. QUALITY: Technical quality was limited. 71 260# BP 143/94 HR 73 LEFT VENTRICLE: Normal chamber size. Mild concentric left ventricular hypertrophy. Normal systolic function. LV EF: Normal left ventricular ejection fraction, (55%). DIASTOLIC: Normal diastolic function. ATRIAL SEPTUM: Visually appears intact. LEFT ATRIUM: Normal chamber size. RIGHT ATRIUM: Normal chamber size. RIGHT VENTRICLE: Normal chamber size. Normal right ventricular systolic function. TRICUSPID VALVE: Normal mobility and thickness. No stenosis with trivial regurgitation. No evidence of pulmonary hypertension. RVSP 24 mmHg MITRAL VALVE: Normal mobility and thickness. No evidence of mitral valve stenosis. There is no mitral annular calcification. No mitral regurgitation. AORTIC VALVE: Normal trileaflet appearance. No visible sclerosis. Normal leaflet mobility. No evidence of aortic valve stenosis. No aortic regurgitation. AORTIC ROOT: Normal diameter and appearance. Ascending aorta is normal in size. PULMONIC VALVE: Normal thickness and mobility. No stenosis. Mild regurgitation. PERICARDIUM: No evidence of pericardial effusion. IVC: Collapses with inspirations. IVC is normal in size. PLEURA: CONCLUSION: 1. Technically limited study with poor sound transmission. 2. Mild concentric left ventricular hypertrophy. Ventricular systolic function appears normal. LVEF is 55%. 3. Normal diastolic function. 4. No significant valvular dysfunction. 5. No pericardial effusion. 6. Normal right-sided pressures. Dictated by: Dustin Mei M.D. on 03/31/2022 at 19:37 Approved by: Dustin Mei M.D. on 03/31/2022 at 19:40 Normal [facility] PROF CHEM 8 (BAS METB)on Anion gap [Moles/Vol] 7.8 mmol/L Normal [facility] Comment on above: Performed By: #### B MP, TSH #### [facility] [address] [place] [address] Dr. Fazal Shearer Calcium [Mass/Vol] 8.4 mg/dL Critically low 8.5-10.1 [facility] Comment on above: Performed By: #### B MP, TSH #### [facility] [address] [address] [address] Fazal Shearer Chloride [Moles/Vol] 104 mmol/L Normal 98-107 [facility] Comment on above: Performed By: #### B MP, TSH #### [facility] [address] [address] [address] Fazal Shearer CO2 [Moles/Vol] 30.3 mmol/L Normal 21.0-32.0 [facility] Comment on above: Performed By: #### B CATHY, TSH #### [facility] [address] [place] [address] Dr. Fazal Shearer Creatinine [Mass/Vol] 0.99 mg/dL Normal 0.70-1.30 [facility] Comment on above: Performed By: #### B CATHY, TSH #### [facility] [address] [address] [address] Fazal Shearer EGFR-AF LUXEMBOURGER >60 Normal >=60 [facility] Comment on above: Performed By: #### B CATHY, TSH #### [facility] [address] [place] [address] Dr. Fazal Shearer EGFR-NON AF LUXEMBOURGER >60 Normal >=60 [facility] Comment on above: Performed By: #### B CATHY, TSH #### [facility] [address] [address] [address] Fazal Shearer Glucose [Mass/Vol] 103 mg/dL Normal 74-106 [facility] Comment on above: Performed By: #### B CATHY, TSH #### [facility] [address] [address] [address] Fazal Shearer Potassium [Moles/Vol] 4.1 mmol/L Normal 3.5-5.1 [facility] Comment on above: Performed By: #### B CATHY, TSH #### [facility] [address] [address] [address] Fazal Shearer Sodium [Moles/Vol] 138 mmol/L Normal 136-145 [facility] Comment on above: Performed By: #### B CATHY, TSH #### [facility] [address] [address] [address] Fazal Shearer Urea nitrogen [Mass/Vol] 17.0 mg/dL Normal 7.0-18.0 [facility] Comment on above: Performed By: #### B CATHY, TSH #### [facility] [address] [address] [address] Fazal Shearer Urea nitrogen/Creatinine [Mass ratio] 17.2 mg/mg Normal [facility] Comment on above: Performed By: #### B CATHY, TSH #### [facility] [address] [place] [address] Dr. Fazal Shearer TSHon 03-31-2022 TSH 0.867 uIU/mL Normal 0.358-3.740 [facility] Comment on above: Performed By: #### B CATHY, TSH #### [facility] [address] [place] [address] Dr. Fazal Shearer Coding Summary.on 08-17-2021 Coding Summary. [id number] ODs5xAp+PGhlYWQ+PE1 JTKWeR71blELlgQ1BR0 dAGP0XLBAOHQWTNP2RW H6evNQ1GYinX8OjqeEm UdyqxEEnTS94WJh3LNH 6jXhrHNjvzB6ejLQcH5 d8JyQsCW14zB79ICrxD FKkUcV3DuZpqkfvpYMf R3uxApWorEOkPyh+PHR hYmxlIHdpZHRoPScxMD RjHmSfbVfjVN2rYa2rW GVyLWNvbGxhcHNlOiBj g4siISOyUKrqRU8ewQi uS7ZpkKF5WDOoo5n1Qv 48dHI+DNLmKLG9rYccE Vzic239IfVnl0urAGD0 bFAkIEyiFSB0A07jm8B 1UWVaMSIoYOZ0cMH6iF 1umHpdersxH4ZmnYTbW lJ5SHF9kUUqmC7qzVis gdeyeV6nZfz+L97JRH3 DDKADNW5WUbd5A1MbCo wvdHI+BO36CFDnTN11a FMhoMCon2lpmIl6ZvZl XGLyEUA0zMlpCGenc3A hYKVoG54ytWYfd6V5IU EujAholMNcWxMpxYZ0x P0xCVrupvvrt7gzmxzl Etttw0dfxq20xL35Z52 vPVovNUSnBUW8EPXvPN QclXwjip6lgI1kPp1+I Fldq9drk1jxeNn7RoJk BFAovbUizCjfRHX6r7G gRh28E4GjzLzyi4GeQc i6be73nSKah1T3mJV9C DhdUCYstT8nROseNdH6 PHVvUeEhsU04yNDdLEz sHq9tlOttsShcSS3cCY RxmychRJWyeJ2bHPTdj VGfnNhoSF5xHQJzdrfm z710QzZkHCN9BHFkyCK kA3JmsK0hXzRuMTMzGO QyY0SsaZSdQHipA725Z HmiNxX4OSUjmqJgD7Zz RPTfkKkgOxR1y5N0Fz8 Od1VzxsgrKNV0QPkdCR YgZvByGkPxWiZ8R5FwF ua7YYMzdAhcFH3wN3Eq EHKmgrsfzydnyMQ5SGM hKXNkiP95tJDsYVzxZz 2wb0J4o403ODEvHFSgr D50Sr7duQyqQSBzeTOD rY1mrrxoa0lovfbuQbV mUCMzWFf9MGt0DDLsjM uhBcYvICX2LhR5FBV6f XEweF5oyXgyryruyD9n Oyc+B05plP3lAHO6XCV 5tfpbFRMmmwVmAG16ET 84A6FhZmukeBPirPQ+P VOohsOidIkkZK3tSoGg y4mtu0CsCVrdL3IxZBJ nMFshWmc9OCReORB1rH I9oH4zPZMbRXnbp7M7x KL6T1QzepNxkz7re4qa ELPnUKroU95pqBGjv6A 9AKKjwCZ1VWXumYjxRj DwcA78Qoe+PGNvbGdyb 1AmPiwvy1siy7iunBy0 IjMwJSIgdmFsaWduPSJ 4c3RcPb77Q60zSQtsNR RoPSIxNSUiIHZhbGlnb z5toL6dTd7+PGNvbCB3 pPZ6mW5bOXXlAbY3CHx lI915KfJtxALsVekap2 mtp6tpkYw2KfFhCNMgg wMyvCynFAV2g5ZkHm84 E84hPBavMVEaIKVkHSR vDMNlwPdxri8boT5eGg 8+OC0fm9oube19cM98i HI+NTEyASD1mBsuEGpg BBBqgN4hDJnpZfY0DHW xFpSgqU86xXRuLYdzIs 9tvMonpVmyJH8nRXSji hyrk068DyLym1ukBKEz hFAgIGoxYFY5N93gv6Q 5MMBdUGRyIMB7lYY5gW 1hbGlnbjogbGVmdDsgd dKtkMouPXplWSjbT744 IHRvcDsnPlBhdGllbnQ cDkJhSBg5S6IuJcr5BR OvtZuoDN4qsGNjQJnsB z7mqMixrUzwZA2iKQAb qsfkw715NyVbg8heTGB azERyPGtiOTM4X05to6 Y0RGXhBVSkSUJ2fYE6z L8cnEowleumcPHgmThg phAqzVdbPBgtFBqiK44 6IHRvcDsnPkJpcnRoIE QeiVC0BE44ZJ39uCTdg 0B0lNV2O6ZnIOLbptua qhgkfBQ3BIGyZPQozH0 4Il2brZvjEf2yVBHaYT O8YXHofWNrT0ZtwA7tA hLwZGHeRYZiG4InrHVl VVbtW384GVktFhP0PJZ mxiSxR4WbNZAzzFtqTl A5s6T4Rk2MN5Q8EK55C E37oQDqr4O0xKT6C9Xr LMQhojtgryqfmJM3WJW fEIXsmJ60Oo3fsGngRs 1cWLEtZYU7HGCuyOKsS 9AbyP9tMiNdXKQwAJAj V7KtzKNaNOrpO420BZo mGfP1LXKfilYaO5TpLL ZgmQhmIiW7i9C7Yb2EB Lb9TE60KA82mFKci5N4 iFI0I1KzFNTmvwjhtuv ixTT0HSJsVXTqaZ36Ka 8uxRejPm0fDYTzKAJ8B NKqrRUuP9LgqP4tDgZx PWXcAMCqO2DwhRXjQCz dU275AMvfGoX5ZZDuyd JtL1DfGKZsgGekOyO4f 3S7Zk3SWLMrEH07JBE1 oYH8SM21MJ13D6UpLpx vdGFibGU+PHRhYmxlIH dpZHRoPScxMDAlJyBzd BjqRX0rCz1xOHDgZSRc pZdyeDXlEaEgf8gtARE iKDxkIB7jqOtpC8XfaI T2EQArq1q3Ml19F49wW 3JvdXA+LNBoqLJ8iCL4 xZ8nRgCtCaA3CVoxQ58 1XsTlyCGgAhkcm5cqq0 cdlQx7YdV7JKNuliXcu KabHKK8d3KrQk46M19j IHdpZHRoPSIxNSUiIHZ itMqtci6apG6mYu5+PG FaxKW7wCX8gL5rPpHgI gZ2LGcvE178XtJbwVYf Xmtil7dir1sbpAp2EaM vZAIgxkMacNnbUQN3c9 ErPn36V8OzhWqcw2KuK hn3hp15uFVhp2Y3sSY1 N4QtOQSpcrcfaBYgrFf sVW0xAKGnfpesJJYorG 5dCLXtB0q7WxArIsF7V JlmB3LovnW2OPWlvSGj XOzdDFX1B67ca0N5RIN tWCOxBGC1tUE5mP4gaI lnbjogbGVmdDsgdmVyd XlhBRdsZRqtL646WPRj rUjmWWOdkQ3kWHTicXZ szXzjBQ5wYLYcqnziUx RJRElPTiwgREVOTklTP F77NB46iWYoy4X1zYL2 N0BzQOVaofizuapyzVA 8BPRsEDVgbN40oAHxAL vrEg1uq2P2c892EKMnA SGugQ11Ca1yeRcxOYIf lQHOfL4saptrd1ymzhy gZrBcPEAbGKt6ECr4MF PrpUviRhDlBPP7YcN9C XE9kWPnkN1hyPkswcbs vF1iUka+MDEvMDUvMTk 3NjwvdGQ+YPQeMWO4bO tqHZweSFRynV7vNBZzE 6w0AyLlFfM9CHngY9Ya GZRztyhbOx52lK6cJcU fSgG2KFejG4KpwbA1HT PpsUQpDLneUQG8I24vt 3R7ZCJkXEPlTNN8wON5 dA0zsOtahqcxiVOdyYg gdmVydGljYWwtYWxpZ2 61BDXcdXliPtA2UUmvD RYaBZ55DA95aLQtr5H3 sMV7A8WkBMEenmsnwcg liJI6HVCvEZMqrL14jC MgOFcvPz7sc3Z2r307J PVhPLDlsQ07Pf9buVdt VJVnlEOMsO4aoqiel3j agwzhUbZeAULiSDg0WL o1WCFcpPezMpKuZZG0H sR9KFY8tZKkpI6apJvq rkueoP6fRmr+TWFsZTw vdGQ+ZBRlEER1rDapTM xrPRXydN7mYFAsH9h8L qByGpD7MSuvH3CoLAXa dkntRr02fV7sDwMpWoO 1JNhxL9JkvbH3KMTstM UrJDfeMTO0I69rq0O6L FNqIGQaTMO0nDT2yF1i bGlnbjogbGVmdDsgdmV qyPxdJMttIYulZ683MZ PgwIwoObUeESNeER5hg TwvdGQ+PT81dg82U4Fo OdifCri3NTIlJIS5fSU 9cP9sHWYyHCvbk9O5kP B0P7HxgaIvpq5td9uzM HQxFSxoE11jeBBlb5F8 KKFeiSZ4IIZfwZtuMxG yhK03Fcw+PGNvbGdyb3 FuQpubm2lqk2wqwAs5Y jMwJSIgdmFsaWduPSJ0 i6LyPc46X09iWEkvOTE oPSIzMCUiIHZhbGlnbj 4oxC3dMi3+KEGkoTA7o IE8cZ6yCtQxWbZ8WLlu U115XqJlsTBgHejug5n bs6zutKb6FyCuWCIrzx RnmOfcVDA1l5TqEn70U 5ErdUkmp1FeStp7mi03 rFAcs2L1wNT9B7YpTAA jnbwhnLDhuLvwRZ6tDZ OiubkpKSZkqK1sUERjF 1y6FpBtVjM8VAinD6Kj loS7OWJhqMDvHDQpwER RsE3rhifpv6upyhhzDj IaKMRsHQi2OWu6TLTmu YpfZsBxPZZ7YuJ6TIV3 yZUhzB2dyUpwiuzxfQ4 wOyc+RKg6w9ijeIMqXB 6ppCM6ZX54XT99jQUsh 1F5lIQ8C0ArRUFmsruy sszpzFF0AHYrFHHzbO8 1Rg3kuZmdIw8xSWXsAD B1EUWshQLtL4PisV4hK cRoWDLqLIIoU0CcoXPc QJtcB051UVmaEzA8OLG oyrLmG3UvEANgdSpnBp M0r8P8Fk2KED23BJ93U Z47rNVxo3E8pQU7O7Py RDIxfggvoexiaUJ6KQX wPOUukP85Ri9quKuhYm 7qTITwWYC0IIWmqSBlD 5GztA6pIeUkICOyHNBu L2IanHOiOXvaZ021GTs jXpX8HUUtwzJvX9FgNC EtpDxwOwP5c0X7Ho5PA j34WS61HB85eEXuf4Y9 eWL2V0VyFWPxhrwhkkq nvTE7VUZtSNRsvV54Dn 7oqEszLh1gOPHmKXE6F FPzfLBzL4MdsL9kGlKx BDDcSQDcI8HfcPPvMGf kG639JQovIqB8OLTisq JfM7LvIJWqfEwbEnU0l 2D4Lf9YNZwmfgh6R7Ot PjwvdHI+KO33DAVvUP6 1jNCljMYcv0nkjVb4Ig XgHMLrTZS9pVziTBovr 8HlSEFlZ71bxPPol6F8 IGNv (more content not included)... Normal [facility] Auto Diffon 08-08-2021 Basophils/100 WBC (Bld) 0.6 % Normal 0.0-2.0 F [facility] Comment on above: Order Comment: Order Added by Discern Expert. Performed By: #### 2 [id number], [id number], 0932483, [id number], 7270297, 43093826, 8190193, 74880618, 2534007, [id number] #### [facility] [address] [place] [address] Basophils/Leukocytes Auto (Bld) [Pure # fraction] 0.1 E9/L Normal 0.0-0.2 [facility] Comment on above: Order Comment: Order Added by Discern Expert. Performed By: #### 2 149443, 5577227, 8554153, 15528262, 9381653, 88583486, 9768293, 42996262, 6202875, 32453974 #### [facility] [address] [place] [address] 45680 Eosinophils/100 WBC (Bld) 1.0 % Normal 0.0-8.0 [facility] Comment on above: Order Comment: Order Added by Discern Expert. Performed By: #### 2 148480, 1402563, 6090376, 66791655, 6965259, 67500989, 3034070, 24151087, 4873618, 12286112 #### [facility] [address] [place] [address] 10201 Eosinophils/Leukocytes Auto (Bld) [Pure # fraction] 0.1 E9/L Normal 0.0-0.5 [facility] Comment on above: Order Comment: Order Added by Discern Expert. Performed By: #### 2 207326, 9268947, 7917980, 87465069, 2751342, 39341622, 9882049, 89633782, 1439692, 91076319 #### [facility] [address] [place] [address] 64177 Lymphocytes/100 WBC (Bld) 7.4 % Low 14.0-50.0 [facility] Comment on above: Order Comment: Order Added by Discern Expert. Performed By: #### 2 475228, 1032263, 1600282, 00216250, 6107989, 36376823, 1995140, 70871035, 9840419, 68619434 #### [facility] [address] [place] [address] Lymphocytes/Leukocytes Auto (Bld) [Pure # fraction] 0.8 E9/L Low 1.0-4.0 [facility] Comment on above: Order Comment: Order Added by Discern Expert. Performed By: #### 2 930555, 4664268, 3820892, 60042626, 9985737, 18109483, 6059823, 26429133, 3640303, 72911093 #### [facility] [address] [place] [address] Monocytes/100 WBC (Bld) 11.8 % Normal 4.0-14.0 [facility] Comment on above: Order Comment: Order Added by Discern Expert. Performed By: #### 2 196378, 9454081, 9490986, 96457888, 2562253, 42919145, 2393666, 82650615, 8048587, 46387719 #### [facility] [address] [place] [address] Monocytes/Leukocytes Auto (Bld) [Pure # fraction] 1.2 E9/L High 0.2-1.0 [facility] Comment on above: Order Comment: Order Added by Discern Expert. Performed By: #### 2 837683, 9097482, 7310834, 11644079, 1609735, 22378903, 6724956, 86296507, 6223993, 03384349 #### [facility] [address] [place] [address] Neutrophils/100 WBC (Bld) 79.2 % High 36.0-75.0 [facility] Comment on above: Order Comment: Order Added by Discern Expert. Performed By: #### 2 391627, 8410551, 8756566, 19009375, 2453854, 67289962, 9345097, 67377906, 6753115, 63771617 #### [facility] [address] [place] [address] Neutrophils/Leukocytes Auto (Bld) [Pure # fraction] 8.3 E9/L High 2.0-7.5 [facility] Comment on above: Order Comment: Order Added by Discern Expert. Performed By: #### 2 548578, 2119454, 1616775, 73940900, 2104860, 39279046, 7680814, 34287511, 7690245, 42351283 #### [facility] [address] [place] [address] BMPon 08-08-2021 Creatinine [Mass/Vol] 1.1 mg/dL Normal 0.5-1.3 [facility] Comment on above: Performed By: #### 2 643692, 6980861, 2796822, 79704494, 5625407, 34963478, 3992016, 33876453, 0481159, 75087444 #### [facility] [address] [place] [address] Urea nitrogen [Mass/Vol] 15 mg/dL Normal 5-21 [facility] Comment on above: Performed By: #### 2 748498, 6312330, 9340144, 75495910, 1728646, 33926160, 9418946, 52077397, 9811089, 87391729 #### [facility] [address] [place] [address] Urea nitrogen/Creatinine [Mass ratio] 14 No Units Normal 10-20 [facility] Comment on above: Performed By: #### 2 697011, 0675729, 5117756, 83454682, 6116313, 64968473, 3898577, 19627584, 8728807, 56376922 #### [facility] [address] [place] [address] Anion gap [Moles/Vol] 17 mmol/L High 6-16 [facility] Comment on above: Performed By: #### 2 892743, 4576983, 6972219, 17404669, 7076282, 40854470, 3104420, 24070774, 7499256, 62679737 #### [facility] [address] [place] [address] Calcium [Mass/Vol] 8.9 mg/dL Normal 8.9-11.1 [facility] Comment on above: Performed By: #### 2 242287, 6649481, 3403051, 80853194, 9541874, 55589917, 0050881, 78036467, 3475297, 43285402 #### [facility] [address] [place] [address] Chloride [Moles/Vol] 98 mmol/L Low 101-111 [facility] Comment on above: Performed By: #### 2 213690, 2697172, 2824766, 86894568, 3466500, 95560814, 7056672, 70019138, 5076332, 79704894 #### [facility] [address] [place] [address] CO2 [Moles/Vol] 22 mmol/L Normal 21-31 [facility] Comment on above: Performed By: #### 2 451563, 8610727, 6469969, 98494827, 1033454, 61810653, 7394329, 75050174, 2062044, 87020406 #### [facility] [address] [place] [address] Glucose [Mass/Vol] 108 mg/dL Normal 55-199 [facility] Comment on above: Result Comment: If t his glucose result represents a fasting glucose, interpretation should refer to the following reference range: 55-99 mg/dL Performed By: #### 2 068932, 2882909, 9704390, 94616539, 8017305, 17904195, 0327982, 72475938, 3712539, 81260180 #### [facility] [address] [place] [address] Potassium [Moles/Vol] 3.9 mmol/L Normal 3.5-5.3 [facility] Comment on above: Performed By: #### 2 613367, 5570446, 8982390, 79390562, 2629299, 10907094, 5074993, 44309693, 6800382, 74494326 #### [facility] [address] [place] [address] Sodium [Moles/Vol] 133 mmol/L Low 135-145 [facility] Comment on above: Performed By: #### 2 473926, 6833913, 8516500, 70851261, 9750128, 86488550, 0822735, 12432403, 8660249, 00821071 #### [facility] [address] [place] [address] BNPon 08-08-2021 Natriuretic peptide B (Bld) [Mass/Vol] pg/mL Low 5-80 [facility] Comment on above: Performed By: #### 2 712111, 3844808, 5980353, 23025846, 8057299, 44023726, 4696487, 54419332, 6442388, 93050492 #### [facility] [address] [place] [address] CBC w/ Auto Diffon Erythrocyte distribution width (RBC) [Ratio] 13.0 % Normal 10.9-14.2 [facility] Comment on above: Performed By: #### 2 982118, 0560851, 3976054, 09074754, 5557074, 63105612, 7331206, 44626177, 1895979, 31189846 #### [facility] [address] [place] [address] Hematocrit (Bld) [Volume fraction] 42.6 % Normal 37.7-49.0 [facility] Comment on above: Performed By: #### 2 950464, 6818972, 4965421, 10303307, 5848463, 00884398, 2302461, 01104358, 1132172, 61642835 #### [facility] [address] [place] [address] Hemoglobin (Bld) [Mass/Vol] 15.0 g/dL Normal 13.5-17.5 [facility] Comment on above: Performed By: #### 2 882290, 4035653, 9639027, 37878701, 8967319, 22491388, 8001680, 34059537, 1115815, 59723267 #### [facility] [address] [place] [address] MCH (RBC) [Entitic mass] 29.2 pg Normal 27.0-34.0 [facility] Comment on above: Performed By: #### 2 881201, 8608983, 5704665, 25039157, 3541054, 53438697, 5550436, 73204706, 4949649, 36148798 #### [facility] [address] [place] [address] MCHC (RBC) [Mass/Vol] 35.2 g/dL Normal 31.4-36.0 [facility] Comment on above: Performed By: #### 2 162586, 9484943, 1062545, 40063060, 8567333, 75071704, 5208786, 84309694, 2447668, 70791684 #### [facility] [address] [place] [address] MCV (RBC) [Entitic vol] 82.9 fL Normal 80.0-100.0 [facility] Comment on above: Performed By: #### 2 108746, 1036345, 8310252, 98669115, 2965786, 18132001, 3890270, 59247366, 0042118, 65916677 #### [facility] [address] [place] [address] Platelet mean volume (Bld) [Entitic vol] 7.2 fL Normal 6.4-10.8 [facility] Comment on above: Performed By: #### 2 032947, 3517001, 2480918, 56479842, 9245593, 83287375, 9767984, 57684657, 5840612, 31546006 #### [facility] [address] [place] [address] Platelets (Bld) [#/Vol] 263.0 E9/L Normal 150.0-500.0 [facility] Comment on above: Performed By: #### 2 080022, 8375676, 7957805, 69908903, 7662396, 81732258, 3253998, 98515596, 4644279, 34499458 #### [facility] [address] [place] [address] RBC (Bld) [#/Vol] 5.1 E12/L Normal 4.3-5.9 [facility] Comment on above: Performed By: #### 2 526994, 0693406, 1781792, 26925850, 8252222, 30218835, 3812339, 72719641, 0892284, 18359684 #### [facility] [address] [place] [address] WBC corrected for nucl RBC Auto (Bld) [#/Vol] 10.5 E9/L Normal 4.0-11.0 [facility] Comment on above: Performed By: #### 2 486528, 7196833, 3376042, 45707803, 3380389, 20397673, 4479268, 31163615, 7270470, 33262769 #### [facility] [address] [place] [address] CTA Cheston 08-08-2021 CTA Chest Exam Date/Time: 08/08/2021 14:51 EST Reason for Exam: PE suspected, low/intermediate prob, positive D-dimer;Other (please specify) Report IMPRESSION: NO CT EVIDENCE OF PULMONARY EMBOLISM. NO CHEST ABNORMALITY IS EVIDENT. CLINICAL HISTORY: PE suspected, low/intermediate prob, positive D-dimer. Cough and shortness of breath. COMMENT: Axial images were obtained after the rapid injection of IV contrast with narrow collimation and reconstructed at a narrow interval. Coronal and sagittal reconstructions were performed. On the PACS, images were reviewed in cine display and using MIP postprocessing. The pulmonary arteries are contrast opacified and no intraluminal filling defects are noted. The thoracic aorta is normal in diameter, without evidence of aneurysm or dissection. The heart is normal in size. No pericardial effusion is noted. There is no mediastinal nor hilar lymphadenopathy. No infiltration, no lung mass, nor pleural effusion is evident. All CT scans at this facility use dose modulation, iterative reconstruction, and/or weight based dosing when appropriate to reduce radiation dose to as low as reasonably achievable. FINAL REPORT Dictated: 08/08/2021 3:25 pm Hung Mg M.D. Signed (Electronic Signature): 08/08/2021 3:25 pm Signed by: Hung Mg M.D. Transcribed by: MANDA Technologist: KRISTIN Technical Comments GFR (mL/min/1/73m2) >60 Contrast: Isovue 370 Contrast amount in ml's: 83 Normal [facility] Consent for Treatmenton 01-0 Consent for Treatment [id number] 2 [id number] E1#1.00CD:127 Normal [facility] D-Dimeron 08-08-2021 Fibrin D-dimer FEU (PPP) [Mass/Vol] 889 [id number] Abnormal 215-500 [facility] Comment on above: Result Comment: Resu lts Verified By Repeat Analysis Results Called To MYA ADAM By And Read Back For Confirmation On 08/08/2021 13:45:41 EST. This assay is intended for use as an aid in the diagnosis of DVT or PE. These conditions cannot be excluded with certainty solely on the basis of a D-dimer concentration being within the reference range This D-Dimer assay may be used in conjunction with a non-high clinical pretest probability assessment to exclude deep-vein thrombosis(DVT). For exclusion of venous thrombosis or pulmonary embolism the analyte D-Dimer should not be used as an aid in patients with: Therapeutic dose anticoagulant therapy for >24 hours Fibrinolytic therapy within previous 7 days Trauma or surgery within previous 4 weeks Disseminated malignacies Aortic aneurysm Sepsis, severe infections, pneumonia, severe skin infections Liver cirrhosis Performed By: #### 2 000521, 8861774, 6484280, 66091748, 1156915, 61904217, 2788844, 10569452, 3709073, 59841155 #### [facility] [address] [place] [address] Discharge Instructionson Discharge Instructions [id number] 01 [id number] 32#1.00CD:127 Normal [facility] ED Clinical Summaryon 2021 ED Clinical Summary [address] [address] ED Clinical Summary Person Information Name: DIDION[facility] Age[facility] 45 Years : 1975 Sex: Male Language: Norwegian PCP: JAYMIE MART MD Marital Status: Visit Id: Visit Reason: Body aches; Cough; Vomiting; VOMITING, DRY SINUS Speciality: Acuity: 2 Enc Type: Emergency Med Service: Emergency Arrival: 08/08/2021 11:40:31 Discharge: 08/08/2021 16:51:53 LOS: 000 05:11 Checkin: 08/08/2021 11:40:31 Checkout: 08/08/2021 16:51:53 Dispo Type: Home (Routine DC) EVENTS: Event Name Event Status Request Date/Time Start Date/Time Complete Date/Time Arrive Complete 08/08/2021 11:40:31 08/08/2021 11:40:31 08/08/2021 11:40:31 Document Home Meds Request 08/08/2021 11:40:31 Triage Complete 08/08/2021 11:40:31 08/08/2021 11:50:43 08/08/2021 11:50:43 Registration Complete 08/08/2021 11:46:46 08/08/2021 11:46:46 08/08/2021 11:46:46 Reg Complete Request 08/08/2021 11:46:46 Workers Comp Complete 08/08/2021 11:50:43 08/08/2021 12:36:21 08/08/2021 12:36:21 Patient Care Request 08/08/2021 11:50:44 Patient Isolation Request 08/08/2021 11:50:44 Bed Assign Complete 08/08/2021 11:51:20 08/08/2021 11:51:20 08/08/2021 11:51:20 Dr Exam Complete 08/08/2021 11:51:20 08/08/2021 12:11:02 08/08/2021 12:11:02 RN Exam Complete 08/08/2021 11:51:20 08/08/2021 12:01:26 08/08/2021 12:01:26 Meds Admin Complete 08/08/2021 12:02:28 08/08/2021 12:22:43 Pending Labs Complete 08/08/2021 12:02:28 08/08/2021 12:50:15 Lab Complete 08/08/2021 12:02:28 08/08/2021 12:50:15 X-Ray Complete 08/08/2021 12:02:28 08/08/2021 12:08:48 08/08/2021 12:18:39 Registration Complete 08/08/2021 12:11:02 08/08/2021 12:16:03 08/08/2021 12:16:03 Pending Labs Complete 08/08/2021 12:13:38 08/08/2021 12:13:38 08/08/2021 12:35:50 Lab Complete 08/08/2021 12:13:38 08/08/2021 12:13:38 08/08/2021 12:35:50 Pending Labs Complete 08/08/2021 12:14:21 08/08/2021 12:14:21 08/08/2021 12:14:21 Wet Read Request 08/08/2021 12:18:39 Pending Labs Complete 08/08/2021 12:19:35 08/08/2021 12:19:35 08/08/2021 12:19:43 Lab Complete 08/08/2021 12:19:35 08/08/2021 12:19:35 08/08/2021 12:19:43 EKG Complete 08/08/2021 12:35:06 08/08/2021 13:11:00 Meds Admin Complete 08/08/2021 12:35:06 08/08/2021 15:58:03 Pending Labs Request 08/08/2021 12:35:06 Lab Inlab 08/08/2021 12:35:06 RT Request 08/08/2021 12:35:06 RT Tx/ABG Complete 08/08/2021 12:35:06 08/08/2021 14:49:35 08/08/2021 14:49:35 RT Tx/ABG Complete 08/08/2021 12:35:06 08/08/2021 12:36:15 08/08/2021 12:36:15 RT Tx/ABG Complete 08/08/2021 12:35:07 08/08/2021 14:49:30 08/08/2021 14:49:30 RT Tx/ABG Complete 08/08/2021 12:35:07 08/08/2021 12:36:09 08/08/2021 12:36:09 RT Tx/ABG Complete 08/08/2021 12:48:39 08/08/2021 14:49:24 08/08/2021 14:49:24 Pending Labs Complete 08/08/2021 13:01:58 08/08/2021 13:01:58 08/08/2021 13:46:01 Lab Complete 08/08/2021 13:01:58 08/08/2021 13:01:58 08/08/2021 13:46:01 CT Complete 08/08/2021 13:49:56 08/08/2021 14:21:58 08/08/2021 14:51:39 Meds Admin Complete 08/08/2021 15:42:12 08/08/2021 15:58:04 Discharge Complete 08/08/2021 15:54:09 08/08/2021 16:52:02 08/08/2021 16:52:02 Transfer Complete 08/08/2021 16:52:02 08/08/2021 16:52:02 08/08/2021 16:52:02 ADDRESS: [address] [place] [id number] [facility] DOC NOTES: MEDICAL INFORMATION: Prescriptions Given: New Medications Printed Prescriptions azithromycin (azithromycin 250 mg Tab) 250 Milligram By Mouth As Directed. Refills: 0. codeine-promethazin e (Codeine Phosphate-Promethaz ine HCl 10mg-6.25mg Syrup) 5 Milliliter By Mouth every 4 hours. Refills: 0. ondansetron (Zofran ODT 4 mg Tab-Dis) 1 Tablets By Mouth every 8 hours. Refills: 0. predniSONE (predniSONE 20 mg Tab) 1 Tablets By Mouth As Directed. take two tabs daily for 5 days, then one tab daily for 5 days.. Refills: 0. PATIENT EDUCATION INFORMATION: Instructions: Acute Bronchitis, Adult, Rqgf-[id number] Follow up: With: Address: When: JAYMIE MART [facility] [place] [id number] Business (1) In 3 days 08/11/2021 DIAGNOSIS: 1:Acute bronchitis Normal [facility] ED Note-Physicianon 08-08-19 ED Note-Physician Basic Information Time Seen: Chaz Enamorado MD 08/08/2021 12:11 Chief Complaint pt reports to ed for vomiting that started yesterday. reports cough fever and body aches that started the 25th History of Present Illness 45-year-old male presents with a chief complaint of uncontrolled vomiting since 10 PM last evening. He states that he has had a vigorous nonproductive cough this last 24 hours. He states that when he attempts to lay down the cough becomes more vigorous. He has been unable to keep liquids down. Patient states that he started with congestion about 10 days ago. Nasal congestion dry throat. He then developed a cough that became very severe these last 2 days. Patient's past medical history is positive only for hypertension. He does not have a history of heart or lung disease. Patient has not been vaccinated against Covid. Review of Systems A 10 point review of systems is negative except as noted above. Medical and Surgical History: Reviewed and noted Social history: Lives at home Tobacco: Denies Physical Exam Vitals & Measurements T: 37.4 ?C(Oral) HR: 118(Monitored) RR: 20 BP: 147/92 SpO2: 95% HT: 180.0 cm HT: 180 cm WT: 118.0 kg WT: 118 kg BMI: 36.42 This is an overweight 45-year-old male he is alert and oriented x3 he has a vigorous continuous cough throughout the entire exam. His skin is slightly diaphoretic and warm to the touch. Color is pink on room air. The heart is accelerated but regular. Fairly good air entry to both lung moore. No definite wheezing is obtained. Abdomen is obese soft but tender to palpation across the upper abdomen. There is no guarding rebound or masses. Medical Decision Making Patient got significant improvement following the breathing treatment. This will be continued home with 2 puffs every 4 hours. We will add a steroid and an antibiotic because of the fever and the duration of the symptoms. Patient will be given a total of 2 L of normal saline here before discharge. Assessment/Plan 1. Acute bronchitis (J20.9: Acute bronchitis, unspecified) Orders: albuterol, 180 mcg, 2 puff(s), Aerosol, Inhalation, Once, Stop date 08/08/21 12:33:00 EST, STAT, Start date 08/08/21 12:33:00 EST, Teach and Treat azithromycin, 250 mg, Oral, As Directed, # 6 tab(s), Refills(s) 0 codeine-promethazin e, 5 mL, Oral, q4hr, 240 mL, Refill(s) 0 ondansetron, 4 mg = 1 tab(s), Oral, q8hr, # 10 tab(s), Refills(s) 0 predniSONE, 20 mg = 1 tab(s), Oral, As Directed, take two tabs daily for 5 days, then one tab daily for 5 days., # 15 tab(s), Refills(s) 0 predniSONE, 40 mg = 2 tab(s), Tab, Oral, Once, Stop date 08/08/21 15:42:00 EST, STAT, Start date 08/08/21 15:42:00 EST, 08/08/21 15:42:00 EST Sodium Chloride 0.9% intravenous solution, 1,000 mL, Soln-IV, IV, Once, Stop date 08/08/21 12:33:00 EST, STAT, Start date 08/08/21 12:33:00 EST, mL/hr, Infuse over 61, minute(s) Sodium Chloride 0.9% intravenous solution, Soln-IV, Misc, Once, Stop date 08/08/21 15:53:52 EST, Physician Stop, 08/08/21 15:53:52 EST B-Type Natriuretic Peptide Blood Culture Charcoal Blood Culture Charcoal Continuous Pulse Oximetry CTA Chest D-Dimer ECG 12 Lead Adult ED Cardiac Monitoring Oxygen Therapy Troponin 0 Hr. Troponin 3 Hr. Troponin 6 Hr. Troponin 9 Hr. Medications Administered Given albuterol HFA 90 mcg/inh MDI, 180 mcg, Inhalation [id number] [F], 1000 mL, IV [id number] [F], 1000 mL, IV predniSONE 20 mg Tab, 40 mg, Oral Zofran 4 mg/2 mL Injection, 4 mg, IV Push Disposition Plan Patient Discharge Condition Improved Discharge Disposition Home Discharge Prescription List Prescriptions azithromycin 250 mg Tab, 250 mg, Oral, As Directed Codeine Phosphate-Promethaz ine HCl 10mg-6.25mg Syrup, 5 mL, Oral, q4hr predniSONE 20 mg Tab, 20 mg= 1 tab(s), Oral, As Directed Zofran ODT 4 mg Tab-Dis, 4 mg= 1 tab(s), Oral, q8hr Follow-up With When Contact Information JAYMIE MART In 3 days 08/11/[address] [facility] (1) Additional Instructions: Patient Education Acute Bronchitis, Adult, Qwpm-mo-Olok Problem List/Past Medical History Ongoing No qualifying data Historical No qualifying data Medications Inpatient No active inpatient medications Home azithromycin 250 mg Tab, 250 mg, Oral, As Directed Codeine Phosphate-Promethaz ine HCl 10mg-6.25mg Syrup, 5 mL, Oral, q4hr predniSONE 20 mg Tab, 20 mg= 1 tab(s), Oral, As Directed Zofran ODT 4 mg Tab-Dis, 4 mg= 1 tab(s), Oral, q8hr Allergies Nubain (Hives) Lab Results WBC: 10.5 E9/L (08/08/21 12:10:00) RBC: 5.1 E12/L (08/08/21 12:10:00) HGB: 15 gm/dL (08/08/21 12:10:00) Hct: 42.6 % (08/08/21 12:10:00) MCV: 82.9 fL (08/08/21 12:10:00) MCH: 29.2 pg (08/08/21 12:10:00) MCHC: 35.2 gm/dL (08/08/21 12:10:00) RDW: 13 % (08/08/21 12:10:00) Platelet: 263 E9/L (08/08/21 12:10:00) MPV: 7.2 fL (08/08/21 12:10:00) Neutro Auto: 79.2 % High (08/08/21 12:10:00) Lymph Auto: 7.4 % Low (08/08/21 1 (more content not included)... Normal [facility] Comment on above: Result Comment: Elec tronically Signed By: Fei ARENAS, Chaz\.br\Date and Time Signed: 08/08/21 16:00 [facility] ED Patient Education Noteon 08-08-2021 ED Patient Education Note Pulmonary Medicine Acute Bronchitis, Adult Acute bronchitis is when air tubes (bronchi) in the lungs suddenly get swollen. The condition can make it hard to breathe. It can also cause these symptoms: ? A cough. ? Coughing up clear, yellow, or green mucus. ? Wheezing. ? Chest congestion. ? Shortness of breath. ? A fever. ? Body aches. ? Chills. ? A sore throat. Follow these instructions at home: Medicines ? Take poea-apt-fxdzrak and prescription medicines only as told by your doctor. ? If you were prescribed an antibiotic medicine, take it as told by your doctor. Do not stop taking the antibiotic even if you start to feel better. General instructions ? Rest. ? Drink enough fluids to keep your pee (urine) pale yellow. ? Avoid smoking and secondhand smoke. If you smoke and you need help quitting, ask your doctor. Quitting will help your lungs heal faster. ? Use an inhaler, cool mist vaporizer, or humidifier as told by your doctor. ? Keep all follow-up visits as told by your doctor. This is important. How is this prevented? To lower your risk of getting this condition again: ? Wash your hands often with soap and water. If you cannot use soap and water, use hand associate product manager. ? Avoid contact with people who have cold symptoms. ? Try not to touch your hands to your mouth, nose, or eyes. ? Make sure to get the flu shot every year. Contact a doctor if: ? Your symptoms do not get better in 2 weeks. Get help right away if: ? You cough up blood. ? You have chest pain. ? You have very bad shortness of breath. ? You become dehydrated. ? You faint (pass out) or keep feeling like you are going to pass out. ? You keep throwing up (vomiting). ? You have a very bad headache. ? Your fever or chills gets worse. This information is not intended to replace advice given to you by your health care provider. Make sure you discuss any questions you have with your health care provider. Document Released: 01/10/2009 Document Revised: 07/07/2018 Document Reviewed: 01/12/2017 Elsevier Patient Education ? 2019 [employer]. Normal [facility] ED Patient Summaryon 022 ED Patient Summary [address] [address] Patient Discharge Instructions Person Information Name: SUSHILA YATES Age: 45 Years Arrival Date: 08/08/2021 11:40:31 Discharge Diagnosis: 1:Acute bronchitis Primary Care Physician: JAYMIE MART MD Provider Information Primary Provider: Chaz Enamorado MD Advanced Charter Boat Captain:None The exam and treatment you received in the Emergency Department were for an urgent problem and are not intended as complete care. It is important that you follow up with a doctor, nurse practitioner, or physician?s child nutrition assistant for ongoing care. If your symptoms become worse or you do not improve as expected and you are unable to reach your usual health care provider, you should return to the Emergency Department. We are available 24 hours a day. SUSHILA YATES has been given the following list of patient education materials, prescriptions and follow-up instructions: Follow-up Instructions: With: Address: When: JAYMIE MART [address] [place], [place] [id number] Business (1) In 3 days 08/11/2021 In the event that this physician does not participate in your insurance network, please consult with your insurance company to find a nearby participating provider. Patient Education Materials: Acute Bronchitis, Adult, Upqs-tx-Eekc A MESSAGE TO ALL PATIENTS REGARDING OPIOIDS PRESCRIPTION OPIOIDS: WHAT YOU NEED TO KNOW Prescription opioids can be used to help relieve rnvwwztq-tm-rqykrr pain and are often prescribed following a surgery or injury, or for certain health conditions. These medications can be an important part of the treatment but also come with serious risks. It is important to work with your healthcare provider to make sure you are getting the safest, most effective care. WHAT ARE THE RISKS AND SIDE EFFECTS OF OPIOID USE? Prescription opioids carry serious risks of addiction and overdose, especially with prolonged use. An opioid overdose, often marked by slowed breathing, can cause sudden . The use of prescription opioids can have a number of side effects as well, even when taken as directed: ? Tolerance?meaning you might need to take more of the medication for the same pain relief ? Physical dependence?meaning you have symptoms of withdrawal when a medication is stopped ? Increased sensitivity to pain ? Constipation ? Nausea, vomiting, and dry mouth ? Sleepiness and dizziness ? Confusion ? Depression ? Low levels of testosterone that can result in lower sex drive, energy, and strength ? Itching and sweating RISKS ARE GREATER WITH: ? History of drug misuse, substance use disorder, or overdose ? Mental health conditions (such as depression or anxiety) ? Sleep apnea ? Older age (65 years and older) ? Avoid alcohol while taking prescription opioids. Also, unless specifically advised by your health care provider, medications to avoid include: ? Benzodiazepines (such as Xanax or Valium) ? Muscle relaxants (such as Soma or Flexeril) ? Hypnotics (such as Ambien or Lunesta) ? Other prescription opioids KNOW YOUR OPTIONS Talk to your health care provider about ways to manage your pain that don?t involve prescription opioids. Some of these options may actually work better and have fewer risks and side effects. Options may include: ? Pain relievers such as acetaminophen, ibuprofen, and naproxen ? Some medication that are also used for depression or seizures ? Physical therapy and exercise ? Cognitive behavioral therapy, a psychological, goal-directed approach, in which patients learn how to modify physical, behavioral, and emotional triggers of pain and stress. IF YOU ARE PRESCRIBED OPIOIDS FOR PAIN: ? Never take opioids in greater amounts or more often than prescribed. ? Follow up with your primary health care provider. o Work together to create a plan on how to manage your pain. o Talk about ways to help manage your pain that don?t involve prescription opioids. o Talk about any and all concerns and side effects. ? Help prevent misuse and abuse o Never sell or share prescription opioids. o Never use another person?s prescription opioids. ? Store prescription opioids in a secure place and out of reach of others (this may include visitors, children, friends, and family). ? Safely dispose of unused prescription opioids: Find your community drug take-back program or your pharmacy mail-back program, or flush them down the toilet, following guidance from the Food and Drug Administration (www.fda.gov/Drugs/ ResourcesForYou). ? Visit www.cdc.gov/drugove rdose to learn about the risks of opioids abuse and overdose. ? If you believe you may be struggling with addiction, tell your health caregiver services home and ask for guidance or call [facility]?S National Helpline at 2-377-340-PTBB. i Source: [facility] (more content not included)... Normal [facility] Hep Func Panelon 08-08-2021 Bilirubin.indirect [Mass or moles/Vol] UTC Abnormal 0.1-0.9 [facility] Comment on above: Result Comment: Resu lt verified by Discern Rule. Performed result UT (Unable to Calculate) was sent as an Alpha code due the inability to calculate a valid numeric value. Performed By: #### 2 [id number], [id number], 5825055, 29053335, 3136237, 42425665, 7485887, 88248808, 2853387, [id number] #### [facility] [address] [place] [address] Albumin [Mass/Vol] 4.1 g/dL Normal 3.3-5.0 [facility] Comment on above: Performed By: #### 2 993594, 8358098, 1117626, 24320075, 5402681, 86725221, 2452835, 75543124, 9589959, 85127701 #### [facility] [address] [place] [address] Albumin/Globulin (S) [Mass conc ratio] 1.2 Normal 1.1-2.2 [facility] Comment on above: Performed By: #### 2 059442, 3031545, 9280296, 49262191, 8851816, 85415287, 1767694, 63881917, 2392835, 24677244 #### [facility] [address] [place] [address] ALP [Catalytic activity/Vol] 54 Int._Unit/L Normal 21-98 [facility] Comment on above: Performed By: #### 2 285590, 1727822, 0638652, 34818992, 1427588, 39507397, 0811972, 49706811, 9510570, 33789382 #### [facility] [address] [place] [address] ALT No additional P-5'-P [Catalytic activity/Vol] 34 Int._Unit/L Normal 6-46 [facility] Comment on above: Performed By: #### 2 209961, 8634794, 8582454, 49519979, 1789212, 05664885, 6304238, 16519849, 9643261, 74857602 #### [facility] [address] [place] [address] AST [Catalytic activity/Vol] 30 Int._Unit/L Normal 5-43 [facility] Comment on above: Performed By: #### 2 340041, 6405137, 3454778, 96068580, 7456973, 96327964, 0256551, 21244851, 4613148, 49609228 #### [facility] [address] [place] 0[address] Bilirubin [Mass/Vol] 0.7 mg/dL Normal 0.0-1.1 [facility] Comment on above: Performed By: #### 2 807566, 5595294, 1264226, 40682293, 0460993, 64145115, 4189886, 60693018, 8742304, 13096938 #### [facility] [address] [place] [address] Bilirubin.direct [Mass/Vol] mg/dL Normal 0.1-0.4 [facility] Comment on above: Performed By: #### 2 277431, 0803478, 3344923, 44879609, 3068410, 88283849, 6637628, 94384402, 1530035, 87536661 #### [facility] [address] [place] [address] Globulin (S) [Mass/Vol] 3.5 g/dL Normal 1.4-4.0 [facility] Comment on above: Performed By: #### 2 156615, 9482006, 7567924, 80683765, 1568890, 25815352, 8695332, 62107764, 4739800, 26757971 #### [facility] [address] [place] [address] Protein [Mass/Vol] 7.6 g/dL Normal 6.0-7.8 [facility] Comment on above: Performed By: #### 2 432216, 7199509, 8502202, 13092531, 6530048, 42377967, 0443954, 11396121, 0429457, 60398900 #### [facility] [address] [place] [address] Lipase Levelon 08-08-2021 Lipase [Catalytic activity/Vol] 24 U/L Normal 13-58 [facility] Comment on above: Performed By: #### 2 105972, 4966010, 3188456, 57955217, 1039264, 75837209, 3015382, 81899658, 6230513, 37972407 #### [facility] [address] [place] [address] Monitor Recordon 08-08-2021 Monitor Record [id number] Normal [facility] PT & PTTon 08-08-2021 aPTT Coag (PPP) [Time] 33.1 second(s) Normal 25.1-36.5 [facility] Comment on above: Result Comment: Hepa rin therapeutic range (represented by Anti-Factor Xa activity of 0.2 - 0.4 U/mL) corresponds to PTT of 56.6 - 109.0 sec. Performed By: #### 2 348687, 2767645, 5562896, 09928897, 8523638, 91668897, 6500204, 89338437, 1279959, 73823842 #### [facility] [address] [place] [address] INR Coag (PPP) [Relative time] 1.1 {INR} Invalid Interpretation Code [facility] Comment on above: Result Comment: INR results are specifically intended to assess patients stabilized on long-term Anticoagulation therapy suggested INR?s ?Less Intensive Anticoagulation? 2.0 ? 3.0 Conventional Range 3.0 ? 4.5 Performed By: #### 2 790074, 8880971, 1371226, 46311986, 5341654, 87309035, 9396251, 74010562, 9201723, 54377494 #### [facility] [address] [place] [address] PT Coag (PPP) [Time] 13.6 second(s) High 10.2-12.9 [facility] Comment on above: Performed By: #### 2 483148, 2947763, 1364553, 73335412, 2342343, 87952423, 1802280, 53780063, 1543377, 09831686 #### [facility] [address] [place] [address] Rapid COVID Antigen ([facility])on 08-08-2021 Rapid COV Int NEG Ctl Pass Normal [facility] Comment on above: Performed By: #### 2 [id number] #### [facility] [address] [place] [address] Rapid COV Int POS Ctl Pass Normal [facility] Comment on above: Performed By: #### 2 [id number] #### [facility] [address] [place] [address] SARS-CoV+SARS-CoV-2 (COVID-19) Ag IA.rapid Ql (Resp) Not detected Normal Not Detected [facility] Comment on above: Result Comment: The [employer]? System for Rapid Detection of SARS-CoV-2 is a chromatographic digital immunoassay intended for the direct and qualitative detection of SARS-CoV-2 nucleocapsid antigens in nasal swabs from individuals who are suspected of COVID-19 by their healthcare provider within the first five days of the onset of symptoms. Negative results should be treated as presumptive, do not rule out SARS-CoV-2 infection and should not be used as the sole basis for treatment or patient management decisions, including infection control decisions. Negative results should be considered in the context of a patient?s recent exposures, history and the presence of clinical signs and symptoms consistent with COVID-19, and confirmed with a molecular assay, if necessary, for patient management. For in vitro diagnostic use. In the [facility], only for use under an Emergency Use Authorization. In the [place], this test has not been FDA cleared or approved; this test has been authorized by FDA under an EUA for use by authorized laboratories; use by laboratories certified under the CLIA, 42 U.S.C. ?263a, that meet requirements to perform moderate, high, or waived complexity tests and at the Point of Care (POC), i.e., in patient care settings operating under a CLIA Certificate of Waiver, Certificate of Compliance, or Certificate of Accreditation. This test has been authorized only for the detection of proteins from SARS-CoV-2, not for any other viruses or pathogens; and, in the [place], this test is only authorized for the duration of the declaration that circumstances exist justifying the authorization of emergency use of in vitro diagnostics for detection and/or diagnosis of the virus that causes COVID-19 under Section 564(b)(1) of the Act, 21 U.S.C. ? 360bbb-3(b)(1), unless the authorization is terminated or revoked sooner. Performed By: #### 2 [id number] #### [facility] [address] [place] [address] ADMITTED TO INTENSIVE CARE UNIT FOR CONDITION OF INTEREST:FIND:PT: NO Normal [facility] Comment on above: Performed By: #### 2 [id number] #### [facility] [address] [place] [address] EMPLOYED IN A HEALTHCARE SETTING:FIND:PT: NO Normal [facility] Comment on above: Performed By: #### 2 [id number] #### [facility] [address] [place] [address] FIRST TEST FOR CONDITION OF INTEREST:FIND:PT: Unknown Normal [facility] Comment on above: Performed By: #### 2 [id number] #### [facility] [address] [place] [address] HAS SYMPTOMS RELATED TO CONDITION OF INTEREST:FIND:PT: YES Normal [facility] Comment on above: Performed By: #### 2 [id number] #### [facility] [address] [place] [address] HOSPITALIZED FOR CONDITION OF INTEREST:FIND:PT: Unknown Normal [facility] Comment on above: Performed By: #### 2 [id number] #### [facility] [address] [place] [address] STATUS:FIND:PT: NO Normal [facility] Comment on above: Performed By: #### 2 [id number] #### [facility] [address] [place] [address] RESIDES IN A CONGREGATE CARE SETTING:FIND:PT: NO Normal [facility] Comment on above: Performed By: #### 2 [id number] #### [facility] [address] [place] [address] Troponin 0 Hr.on 08-08-2021 Troponin I.cardiac [Mass/Vol] 3.40 pg/mL Low 15.90-38.40 [facility] Comment on above: Result Comment: The 95% CI (Confidence Interval) PPV (Positive Predictive Value) for myocardial infarction in females is 38 pg/mL, in males 51 pg/mL. The results should be used in conjunction with clinical conditions of myocardial infarction. (Access High Sensitivity Troponin I Instructions For Use, [employer], March 2018) Performed By: #### 2 979095, 5113168, 7067971, 16605547, 1405348, 84377980, 8627197, 81394714, 2863844, 89370339 #### [facility] [address] [place] [address] XR Chest Single Viewon 08-08 XR Chest Single View Exam Date/Time: 08/08/2021 12:18 EST Reason for Exam: Cough Report IMPRESSION: NO EVIDENCE OF ACTIVE CHEST DISEASE. CLINICAL HISTORY: Cough. COMMENT: AP portable. The heart is normal in size. The mediastinum is unremarkable. The lungs appear clear. No infiltration nor pleural effusion is evident. FINAL REPORT Dictated: 08/08/2021 2:50 pm Hung Mg M.D. Signed (Electronic Signature): 08/08/2021 2:50 pm Signed by: Hung Mg M.D. Transcribed by: MANDA Technologist: ALLAN Bo [facility] eGFRon 08-08-2021 GFR/1.73 sq M.predicted among blacks MDRD (S/P/Bld) [Vol rate/Area] mL/min/{1.73_m2} Normal >=59 [facility] Comment on above: Order Comment: Order added by Discern Expert. Result Comment: eGFR is race adjusted. AA=. Performed By: #### 2 959680, 4248970, 0940746, 29906348, 1236116, 19590500, 5347792, 03920408, 6229029, 38761538 #### [facility] [address] [place] [address] GFR/1.73 sq M.predicted among non-blacks MDRD (S/P/Bld) [Vol rate/Area] mL/min/{1.73_m2} Normal >=59 [facility] Comment on above: Order Comment: Order added by Discern Expert. Result Comment: Waste Hand gregory kidney disease could be indicated at eGFR's of less than 60 mL/min/1.73m2. Kidney failure is indicated at less than 15 mL/min/1.73m2. Performed By: #### 2 155287, 9588910, 9178108, 67982778, 2450827, 85244535, 8470090, 07349352, 8425703, 74417994 #### [facility] [address] [place] [address] CT LUMBAR SPINE W CONTRASTOr dered By: Hamilton Cummings on 02-26-2021 L5/S1 moderate bilateral neuroforaminal narrowing due to posterior disc osteophyte complex and bilateral facet joint hypertrophy with mild posterior listhesis of L5 on S1. The remainder of the lumbar spine demonstrates mild discogenic degenerative change with mild facet joint hypertrophy as detailed below. COMPARISON: No prior studies available for comparison. DIAGNOSIS: M54.16 Lumbar radiculopathy ICD10 COMMENTS: Back pain TECHNIQUE: Spiral scanning of the lumbar spine was performed after intrathecal injection of contrast under fluoroscopy in a separate procedure. CT Dose-Length Product (estimate related to radiation exposure from this exam): 984.32 mGy*cm. FINDINGS: The visualized lung bases show no signs of focal infiltrate or nodule. T11/T12: The spinal canal is patent. The bilateral neuroforamina are patent. Disc space height is preserved. There is a very small amount of degenerative change with Schmorl's nodes at the inferior endplate of T11. Note is made of spina bifida of posterior spinous process of T11. T12/L1: The spinal canal is patent. The bilateral neuroforamina are patent. Disc space height is preserved. L1/L2: Spinal canal is patent. There is very subtle left posterior impression on the thecal sac from a slightly hypertrophied left facet joint, this is very subtle and does not lead to any canal stenosis. L2/L3: The spinal canal is patent. The bilateral neuroforamina are patent. There is very subtle left posterior impression on the thecal sac from a slightly hypertrophied left facet joint and subtle hypertrophy of the ligamentum flavum. This does not lead to any significant canal stenosis. L3/L4: Spinal canal is patent. Bilateral neuroforamina are patent. There is mild to moderate degenerative change at the inferior endplate of L3 and superior endplate of L3 with small Schmorl's nodes. There is subtle bilateral facet hypertrophy. L4/L5: Spinal canal is patent. The bilateral neuroforamina are patent. There is mild bilateral facet joint hypertrophy. L5/S1: Spinal canal is patent. There is moderate bilateral neural foraminal stenosis secondary to posterior disc osteophyte complex. There is moderate loss of disc space height and 2 mm posterior listhesis of L5 on S1. [employer] Work Phone: [place], [facility] Incoming Radiant Results From [employer] - 02/26/2021 10:26 AM EDT IMPRESSION: L5/S1 moderate bilateral neuroforaminal narrowing due to posterior disc osteophyte complex and bilateral facet joint hypertrophy with mild posterior listhesis of L5 on S1. The remainder of the lumbar spine demonstrates mild discogenic degenerative change with mild facet joint hypertrophy as detailed below. COMPARISON: No prior studies available for comparison. DIAGNOSIS: M54.16 Lumbar radiculopathy ICD10 COMMENTS: Back pain TECHNIQUE: Spiral scanning of the lumbar spine was performed after intrathecal injection of contrast under fluoroscopy in a separate procedure. CT Dose-Length Product (estimate related to radiation exposure from this exam): 984.32 mGy*cm. FINDINGS: The visualized lung bases show no signs of focal infiltrate or nodule. T11/T12: The spinal canal is patent. The bilateral neuroforamina are patent. Disc space height is preserved. There is a very small amount of degenerative change with Schmorl's nodes at the inferior endplate of T11. Note is made of spina bifida of posterior spinous process of T11. T12/L1: The spinal canal is patent. The bilateral neuroforamina are patent. Disc space height is preserved. L1/L2: Spinal canal is patent. There is very subtle left posterior impression on the thecal sac from a slightly hypertrophied left facet joint, this is very subtle and does not lead to any canal stenosis. L2/L3: The spinal canal is patent. The bilateral neuroforamina are patent. There is very subtle left posterior impression on the thecal sac from a slightly hypertrophied left facet joint and subtle hypertrophy of the ligamentum flavum. This does not lead to any significant canal stenosis. L3/L4: Spinal canal is patent. Bilateral neuroforamina are patent. There is mild to moderate degenerative change at the inferior endplate of L3 and superior endplate of L3 with small Schmorl's nodes. There is subtle bilateral facet hypertrophy. L4/L5: Spinal canal is patent. The bilateral neuroforamina are patent. There is mild bilateral facet joint hypertrophy. L5/S1: Spinal canal is patent. There is moderate bilateral neural foraminal stenosis secondary to posterior disc osteophyte complex. There is moderate loss of disc space height and 2 mm posterior listhesis of L5 on S1. [employer] Work Phone: IR LUMBAR PUNCTURE FOR MYELO GRAM CTOrdered By: Hamilton Cummings on 02-26-2021 1. Successful fluoroscopy-guided myelogram by injection of contrast in the intrathecal sac under fluoroscopic imaging. 2. Both cinematic and spot fluoroscopy images were obtained. Contrast is seen to traverse the lumbar spine. There is no significant canal stenosis. Bilateral neuroforamina and nerve sleeves are seen. HISTORY: SUSHILA YATES is a Male of 45 years age, with M54.16 Lumbar radiculopathy ICD10. Radiation dose: 50.62 mGy. DIAGNOSIS: Back pain COMMENTS: None PROCEDURE: Following universal protocol, patient and site verification was performed with a timeout prior to the procedure. Following the discussion of the procedure, and this, risks versus benefits, informed consent was obtained from the patient. The patient was placed on fluoroscopy table in prone position and the lower back area was prepped and draped in usual sterile fashion. The area between the interspinous process was marked. This was at the L3 level. Using the usual sterile conditions, 1% lidocaine (5 mL) and fluoroscopy guidance, a 20 gauge needle was inserted into the spinal canal. After confirmation of intra-thecal location of the needle tip by CSF leakage through the needle. 15 mL of Isovue was injected into the spinal canal under direct fluoroscopic imaging. Both see me and spot fluoroscopy images were obtained. Contrast was seen to traverse both cranially and caudally throughout the lumbar spinal canal. The bilateral nerve sleeves are seen. There is no significant canal stenosis seen. Following that the needle was withdrawn from the back. The patient tolerated the procedure well without complications. The patient was transferred to CT for CT myelogram imaging. Please see CT dictation for full details. [employer] Work Phone: [place], [facility] Incoming Radiant Results From [employer] - 02/26/2021 11:13 AM EDT IMPRESSION: 1. Successful fluoroscopy-guided myelogram by injection of contrast in the intrathecal sac under fluoroscopic imaging. 2. Both cinematic and spot fluoroscopy images were obtained. Contrast is seen to traverse the lumbar spine. There is no significant canal stenosis. Bilateral neuroforamina and nerve sleeves are seen. HISTORY: SUSHILA YATES is a Male of 45 years age, with M54.16 Lumbar radiculopathy ICD10. Radiation dose: 50.62 mGy. DIAGNOSIS: Back pain COMMENTS: None PROCEDURE: Following universal protocol, patient and site verification was performed with a timeout prior to the procedure. Following the discussion of the procedure, and this, risks versus benefits, informed consent was obtained from the patient. The patient was placed on fluoroscopy table in prone position and the lower back area was prepped and draped in usual sterile fashion. The area between the interspinous process was marked. This was at the L3 level. Using the usual sterile conditions, 1% lidocaine (5 mL) and fluoroscopy guidance, a 20 gauge needle was inserted into the spinal canal. After confirmation of intra-thecal location of the needle tip by CSF leakage through the needle. 15 mL of Isovue was injected into the spinal canal under direct fluoroscopic imaging. Both see me and spot fluoroscopy images were obtained. Contrast was seen to traverse both cranially and caudally throughout the lumbar spinal canal. The bilateral nerve sleeves are seen. There is no significant canal stenosis seen. Following that the needle was withdrawn from the back. The patient tolerated the procedure well without complications. The patient was transferred to CT for CT myelogram imaging. Please see CT dictation for full details. [employer] Phone: No Panel InformationOrdered By: Hamilton Cummings on 02-26-2021 [employer] Phone: [employer] Phone: CT LUMBAR SPINE W CONTRASTon 02-25-2021 CT LUMBAR SPINE W CONTRAST IMPRESSION: L5/S1 moderate bilateral neuroforaminal narrowing due to posterior disc osteophyte complex and bilateral facet joint hypertrophy with mild posterior listhesis of L5 on S1. The remainder of the lumbar spine demonstrates mild discogenic degenerative change with mild facet joint hypertrophy as detailed below. COMPARISON: No prior studies available for comparison. DIAGNOSIS: M54.16 Lumbar radiculopathy ICD10 COMMENTS: Back pain TECHNIQUE: Spiral scanning of the lumbar spine was performed after intrathecal injection of contrast under fluoroscopy in a separate procedure. CT Dose-Length Product (estimate related to radiation exposure from this exam): 984.32 mGy*cm. FINDINGS: The visualized lung bases show no signs of focal infiltrate or nodule. T11/T12: The spinal canal is patent. The bilateral neuroforamina are patent. Disc space height is preserved. There is a very small amount of degenerative change with Schmorl's nodes at the inferior endplate of T11. Note is made of spina bifida of posterior spinous process of T11. T12/L1: The spinal canal is patent. The bilateral neuroforamina are patent. Disc space height is preserved. L1/L2: Spinal canal is patent. There is very subtle left posterior impression on the thecal sac from a slightly hypertrophied left facet joint, this is very subtle and does not lead to any canal stenosis. L2/L3: The spinal canal is patent. The bilateral neuroforamina are patent. There is very subtle left posterior impression on the thecal sac from a slightly hypertrophied left facet joint and subtle hypertrophy of the ligamentum flavum. This does not lead to any significant canal stenosis. L3/L4: Spinal canal is patent. Bilateral neuroforamina are patent. There is mild to moderate degenerative change at the inferior endplate of L3 and superior endplate of L3 with small Schmorl's nodes. There is subtle bilateral facet hypertrophy. L4/L5: Spinal canal is patent. The bilateral neuroforamina are patent. There is mild bilateral facet joint hypertrophy. L5/S1: Spinal canal is patent. There is moderate bilateral neural foraminal stenosis secondary to posterior disc osteophyte complex. There is moderate loss of disc space height and 2 mm posterior listhesis of L5 on S1. Interpreted by: Shun Shah MD Signed by: Shun Shah MD 02/26/21 Final result Normal [facility] IR LUMBAR PUNCTURE FOR MYELO GRAM CTon 02-25-2021 IR LUMBAR PUNCTURE FOR MYELOGRAM CT IMPRESSION: 1. Successful fluoroscopy-guided myelogram by injection of contrast in the intrathecal sac under fluoroscopic imaging. 2. Both cinematic and spot fluoroscopy images were obtained. Contrast is seen to traverse the lumbar spine. There is no significant canal stenosis. Bilateral neuroforamina and nerve sleeves are seen. HISTORY: SUSHILA YATES is a Male of 45 years age, with M54.16 Lumbar radiculopathy ICD10. Radiation dose: 50.62 mGy. DIAGNOSIS: Back pain COMMENTS: None PROCEDURE: Following universal protocol, patient and site verification was performed with a timeout prior to the procedure. Following the discussion of the procedure, and this, risks versus benefits, informed consent was obtained from the patient. The patient was placed on fluoroscopy table in prone position and the lower back area was prepped and draped in usual sterile fashion. The area between the interspinous process was marked. This was at the L3 level. Using the usual sterile conditions, 1% lidocaine (5 mL) and fluoroscopy guidance, a 20 gauge needle was inserted into the spinal canal. After confirmation of intra-thecal location of the needle tip by CSF leakage through the needle. 15 mL of Isovue was injected into the spinal canal under direct fluoroscopic imaging. Both see me and spot fluoroscopy images were obtained. Contrast was seen to traverse both cranially and caudally throughout the lumbar spinal canal. The bilateral nerve sleeves are seen. There is no significant canal stenosis seen. Following that the needle was withdrawn from the back. The patient tolerated the procedure well without complications. The patient was transferred to CT for CT myelogram imaging. Please see CT dictation for full details. Interpreted by: Shun Shah MD Signed by: Shun Shah MD 02/26/21 Final result Normal [facility] Basic Metabolic Panelon 07 Anion gap [Moles/Vol] 10 mmol/L Normal 9-15 [facility] Comment on above: Performed By: #### B MP #### [facility] [address] [place] [address] Calcium [Mass/Vol] 9.3 mg/dL Normal 8.5-9.9 [facility] Comment on above: Performed By: #### B MP #### [facility] [address] [place] [address] Chloride [Moles/Vol] 102 mmol/L Normal 95-107 [facility] Comment on above: Performed By: #### B MP #### [facility] [address] [place] [address] CO2 [Moles/Vol] 27 mmol/L Normal 20-31 [facility] Comment on above: Performed By: #### B MP #### [facility] [address] [place] [address] Creatinine [Mass/Vol] 0.83 mg/dL Normal 0.70-1.20 [facility] Comment on above: Performed By: #### B MP #### [facility] [address] [place] [address] GFR >60.0 Normal >60 [facility] Comment on above: Result Comment: >60 mL/min/1.73m2 EGFR, calc. for ages 18 and older using the MDRD formula (not corrected for weight), is valid for stable renal function. Performed By: #### B MP #### [facility] [address] [place] [address] GFR/1.73 sq M.predicted among blacks MDRD (S/P/Bld) [Vol rate/Area] mL/min/{1.73_m2} Normal >60 [facility] Comment on above: Result Comment: >60 mL/min/1.73m2 EGFR, calc. for ages 18 and older using the MDRD formula (not corrected for weight), is valid for stable renal function. Performed By: #### B MP #### [facility] [address] [place] [address] Glucose [Mass/Vol] 96 mg/dL Normal 70-99 [facility] Comment on above: Performed By: #### B MP #### [facility] [address] [place] [address] Potassium [Moles/Vol] 3.8 mmol/L Normal 3.4-4.9 [facility] Comment on above: Performed By: #### B MP #### [facility] [address] [place] [address] Sodium [Moles/Vol] 139 mmol/L Normal 135-144 [facility] Comment on above: Performed By: #### B MP #### [facility] [address] [place] [address] Urea nitrogen [Mass/Vol] 13 mg/dL Normal 6-20 [facility] Comment on above: Performed By: #### B MP #### [facility] [address] [place] [address] CBC With Platelet No Differe ntialon 02-19-2021 Erythrocyte distribution width (RBC) [Ratio] 12.9 % Normal 11.5-14.5 [facility] Comment on above: Performed By: #### C BCND #### [facility] [address] [place] [address] Hematocrit (Bld) [Volume fraction] 45.5 % Normal 42.0-52.0 [facility] Comment on above: Performed By: #### C BCND #### [facility] [address] [place] [address] Hemoglobin (Bld) [Mass/Vol] 15.3 g/dL Normal 14.0-18.0 [facility] Comment on above: Performed By: #### C BCND #### [facility] [address] [place] [address] MCH (RBC) [Entitic mass] 28.7 pg Normal 27.0-31.3 [facility] Comment on above: Performed By: #### C BCND #### [facility] [address] [place] [address] MCHC 33.7 % Normal 33.0-37.0 [facility] Comment on above: Performed By: #### C BCND #### [facility] [address] [place] [address] MCV (RBC) [Entitic vol] 85.4 fL Normal 80.0-100.0 [facility] Comment on above: Performed By: #### C BCND #### [facility] [address] [place] [address] Platelets (Bld) [#/Vol] 259 10*3/uL Normal 130-400 [facility] Comment on above: Performed By: #### C BCND #### [facility] [address] [place] [address] RBC (Bld) [#/Vol] 5.33 10*6/uL Normal 4.70-6.10 [facility] Comment on above: Performed By: #### C BCND #### [facility] [address] [place] [address] WBC (Bld) [#/Vol] 6.2 10*3/uL Normal 4.8-10.8 [facility] Comment on above: Performed By: #### C BCND #### [facility] [address] [place] [address] Prothrombin Timeon INR Coag (PPP) [Relative time] 1.0 {INR} Normal [facility] Comment on above: Performed By: #### P T #### [facility] [address] [place] [address] PT Coag (PPP) [Time] 13.2 s Normal 12.3-14.9 [facility] Comment on above: Performed By: #### P T #### [facility] [address] [place] [address] Vital Signs Date Time Vital Sign Value Performing Clinician Facility 07-26-2023 10:45-0500 Body height 182.88 cm Jaymie Mart Other [facility] Other 07-26-2023 10:45-0500 Body mass index (BMI) [Ratio] 37.24 kg/m2 Jaymie Mart Other [facility] Other 07-26-2023 10:45-0500 Body weight 124.56 kg Jaymie Mart Other [facility] Other 07-26-2023 10:45-0500 Diastolic blood pressure 85 mm[Hg] Jaymie Mart Other [facility] Other 07-26-2023 10:45-0500 Systolic blood pressure 122 mm[Hg] Jaymie Mart Other [facility] Other 06-03-2023 15:00-0400 Body height 182.88 cm Jaymie Mart Other [facility] Other 06-03-2023 15:00-0400 Body mass index (BMI) [Ratio] 37.81 kg/m2 Jaymie Mart Other [facility] Other 06-03-2023 15:00-0400 Body temperature 98 [degF] Jaymie Mart Other [facility] Other 06-03-2023 15:00-0400 Body weight 126.46 kg Jaymie Mart Other [facility] Other 06-03-2023 15:00-0400 Diastolic blood pressure 76 mm[Hg] Jaymie Mrat Other [facility] Other 06-03-2023 15:00-0400 SaO2% (BldA) [Mass fraction] 98 % Jaymie Mart Other [facility] Other 06-03-2023 15:00-0400 Systolic blood pressure 130 mm[Hg] Jaymie Mart Other [facility] Other 02-11-2023 10:30-0400 Body height 182.88 cm Jaymie Mart Other [facility] Other 02-11-2023 10:30-0400 Body mass index (BMI) [Ratio] 37.16 kg/m2 Jaymie Mart Other [facility] Other 02-11-2023 10:30-0400 Body weight 124.29 kg Jaymie Mart Other [facility] Other 02-11-2023 10:30-0400 Diastolic blood pressure 85 mm[Hg] Jaymie Mart Other [facility] Other 02-11-2023 10:30-0400 Systolic blood pressure 124 mm[Hg] Jaymie Mart Other [facility] Other 11-02-2022 16:15-0400 Body height 182.88 cm Austin Jun Other [facility] Other 11-02-2022 16:15-0400 Body mass index (BMI) [Ratio] 37.05 kg/m2 Austin Ball Other [facility] Other 11-02-2022 16:15-0400 Body weight 123.92 kg Austin Ball Other [facility] Other 11-02-2022 16:15-0400 Diastolic blood pressure 86 mm[Hg] Austin Ball Other [facility] Other 11-02-2022 16:15-0400 Respiratory rate 16 /min Austin Ball Other [facility] Other 11-02-2022 16:15-0400 Systolic blood pressure 136 mm[Hg] Austin Ball Other [facility] Other 10-27-2022 11:30-0400 Body height 182.88 cm Jaymie Mart Other [facility] Other 10-27-2022 11:30-0400 Body mass index (BMI) [Ratio] 37.29 kg/m2 Jaymie Mart Other [facility] Other 10-27-2022 11:30-0400 Body weight 124.74 kg Jaymie Mart Other [facility] Other 10-27-2022 11:30-0400 Diastolic blood pressure 80 mm[Hg] Jaymie Mart Other [facility] Other 10-27-2022 11:30-0400 SaO2% (BldA) [Mass fraction] 97 % Jaymie Mart Other [facility] Other 03-22-2023 11:30-0400 Systolic blood pressure 132 mm[Hg] Jaymie Mart Other [facility] Other 02-25-2021 14:30-0400 Diastolic blood pressure 90 mm[Hg] [place] [facility] [employer] Phone: 02-25-2021 14:30-0400 Heart rate 79 /min [place] [facility] [employer] Phone: 02-25-2021 14:30-0400 Respiratory rate 16 /min [place] [facility] [employer] Phone: 02-25-2021 14:30-0400 SaO2% (BldA) [Mass fraction] 97 % [place] [facility] [employer] Phone: 02-25-2021 14:30-0400 Systolic blood pressure 148 mm[Hg] [place] [facility] [employer] Phone: 02-25-2021 10:43-0400 Body height 180.3 cm [place] [facility] [employer] Phone: 02-25-2021 10:43-0400 Body mass index (BMI) [Ratio] 36.54 kg/m2 [place] [facility] [employer] Phone: 02-25-2021 10:43-0400 Body weight 118.84 kg [place] [facility] [employer] Phone: Encounters Encounter Date Encounter Type Care Provider Facility Start: 08-17-2023 End: 08-17-2023 ambulatory Jaymie Mart Other [facility] Other Start: 08-17-2023 Telephone encounter Jaymie Mart [facility] Start: 07-26-2023 End: 07-26-2023 ambulatory Jaymie Mart Other [facility] Other Start: 07-26-2023 Office outpatient vi sit 15 minutes Jaymie Mart [facility] Start: 07-18-2023 End: 07-18-2023 ambulatory Jaymie Mart Other [facility] Other Start: 07-18-2023 Telephone encounter Jaymie Mart [facility] Start: 06-03-2023 End: 06-03-2023 ambulatory Jaymie Mart Other [facility] Other Start: 06-03-2023 Office outpatient vi sit 15 minutes Jaymie Mart [facility] Start: 05-27-2023 End: 05-27-2023 ambulatory Jaymie Mart Other [facility] Other Start: 05-27-2023 Telephone encounter Jaymie Mart [facility] Start: 02-11-2023 End: 02-11-2023 ambulatory Jaymie Mart Other [facility] Other Start: 02-11-2023 Office outpatient vi sit 15 minutes Jaymie Mart [facility] Start: 12-10-2022 Telephone encounter Jaymie Mart [facility] Start: 12-10-2022 End: 12-11-[address] JAYMIE MART [facility] Other Start: 12-02-2022 (Televisit) Televisit Jaymie Mart [facility] Start: 12-02-2022 End: 12-02-2022 ambulatory Jaymie Mart Other [facility] Other Start: 11-29-2022 End: 11-29-2022 ambulatory Kurtis Patel Facility:[facility] Start: 11-02-2022 End: 11-02-2022 ambulatory Austin Barahona Other [facility] Other Start: 11-02-2022 Office outpatient vi sit 15 minutes [facility] Start: 10-29-2022 End: 10-29-2022 ambulatory Jaymie Mart Other [facility] Other Start: 10-29-2022 Telephone encounter Jaymie Mart [facility] Start: 10-27-2022 End: 10-27-2022 ambulatory Jaymie Mart Other [place] [employer] Other Start: 10-27-2022 Office outpatient vi sit 15 minutes Jaymie Mart [facility] Start: 09-16-2022 End: 09-17-[address] ALLYSON PANTOJA . Facility:[facility] Start: 07-06-2022 End: 07-07-[address] JAYMIE MART Facility:[facility] Start: 06-24-2022 End: 06-25-[address] ALLYSON PANTOJA . Facility:[facility] Start: 06-01-2022 End: 06-01-[address] ALLYSON PANTOJA . Facility:[facility] Start: 05-13-2022 End: 05-14-[address] ALLYSON PANTOJA . Facility:[facility] Start: 04-20-2022 End: 04-20-[address] ALLYSON PANTOJA . Facility:[facility] Start: 04-01-2022 End: 04-02-2022 ambulatory HANNA MA . Facility:[facility] Start: 03-31-2022 End: 04-01-[address] JAYMIE MART Facility:[facility] Start: 12-24-2021 End: 12-25-[address] JAYMIE MART Facility:[facility] Start: 02-25-2021 End: 02-28-2021 ambulatory JAYMIE MART [facility] Start: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 spondylosis Bilateral low back pain with sciatica, sciatica laterality unspecified, unspecified chronicity Procedures IR LUMBAR PUNCTURE FOR MYELOGRAM CT Hamilton Cummings APRN - [employer] [address] [facility] [facility] [address] [place] [address] Additional Source Comments (unrecognized sect ion and content) No Status Records FoundNo Status Records FoundNo Status Records FoundNo Status Records FoundNo Status Records Found INFORMATION SOURCE (unrecogn ized section and content) DATE CREATED AUTHOR 02/20/2021 [facility] DATE CREATED AUTHOR AUTHOR'S ORGANIZ ATION 02/28/2021 [facility] DATE CREATED AUTHOR AUTHOR'S ORGANIZ ATION 10/25/2021 [facility] DATE CREATED AUTHOR AUTHOR'S ORGANIZ ATION 12/03/2022 [facility] DATE CREATED AUTHOR AUTHOR'S ORGANIZ ATION 12/17/2022 [facility] Reason for Visit (unrecogniz ed section and content) Refill Status Reason Specialty Diagnoses / Procedures Referre d By Contact Referred To Contact Closed Radiology Diagnoses Lumbar radiculopathy Lumbar spondylosis Bilateral low back pain with sciatica, sciatica laterality unspecified, unspecified chronicity Procedures CT LUMBAR SPINE W CONTRAST Hamilton Cummings, BED SETTER - [employer] [address] [place] [address] FOR RECORDS PERTAINING TO PATIENTS WHO ARE OR HAVE BEEN ENROLLED IN A CHEMICAL DEPENDENCY/SUBSTANCEABUSE PROGRAM, SOME INFORMATION MAY BE OMITTED. This clinical summary was aggregated from multiple sources. Caution should be exercised in using it in the provision of clinical care. This summary normalizes information from multiple sources, and as a consequence, information in this document may materially change the coding, format and clinical context of patient data. In addition, data may be omitted in some cases. CLINICAL DECISIONS SHOULD BE BASED ON THE PRIMARY CLINICAL RECORDS. [facility] [employer] [facility]. provides no warranty or guarantee of the accuracy or completeness of information in this document.
--- NOTE | 2023-08-22 15:23 | PM.CN ---
Consult Note: HPI Data of Consult Patient: known to practice within the last 3 years Consult date: 08/22/23 Requesting Physician: Portia Clark MD Primary Care Provider: Jaymie Haas MD Consult Narrative Reason for consult: low back pain Narrative: 48yom who presents for assessment. notes increasing low back pain after straining last week. radiates into buttocks. has used percocet, with minimal benefit. 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 denies adverse med side effects. cc:: CC: Portia Clark MD Review of Systems ROS Status of ROS 10 or more systems reviewed and unremarkable except as noted in history and below [facility] Medical History Subdural hematoma ?S06.5XAA - Traumatic subdural hemorrhage with loss of consciousness status unknown, initial encounter (ICD-10) Osteoarthritis ?M19.90 - Unspecified osteoarthritis, unspecified site (ICD-10) Asthma ?J45.909 - Unspecified asthma, uncomplicated (ICD-10) HTN (hypertension) ?I10 - Essential (primary) hypertension (ICD-10) Meds Home Medications and Allergies Home Medications Medication Instructions Recorded Confirmed Type albuterol sulfate 90 mcg/actuation 2 inh inhalation Q3H PRN shortness 03/22/23 03/22/23 History aerosol inhaler of breath or wheezing dexamethasone 6 mg tablet 6 mg PO DAILY 03/22/23 03/22/23 History diclofenac sodium 50 mg 50 mg PO BID 03/22/23 03/22/23 History tablet,delayed release fluticasone propionate 110 2 inh inhalation BID 03/22/23 03/22/23 History mcg/actuation HFA aerosol inhaler lisinopril 20 mg tablet 20 mg PO DAILY 03/22/23 03/22/23 History metoprolol tartrate 25 mg tablet 25 mg PO DAILY 03/22/23 03/22/23 History ondansetron HCl 8 mg tablet 8 mg PO TID 03/22/23 03/22/23 History oxycodone-acetaminophen 5 mg-325 1 tab PO DAILY 03/22/23 03/22/23 History mg tablet (Endocet) simvastatin 20 mg tablet 20 mg PO DAILY 03/22/23 03/22/23 History sumatriptan succinate 50 mg tablet See Rx Instructions PO .COMPLEX 03/22/23 03/22/23 History tizanidine 4 mg capsule 4 mg PO TID PRN muscle spasticity 03/22/23 03/22/23 History oxycodone-acetaminophen 5 mg-325 1 tab PO DAILY PRN pain #30 tabs 08/22/23 Rx mg tablet (Percocet) Allergies Allergy/AdvReac Type Severity Reaction Status Date / Time nubain Allergy Unknown Uncoded 03/22/23 15:33 Exam Narrative Exam Narrative: Psych-alert and oriented x 3. Attentive and appropriate, constitutionally normal, displays normal mood and affect per situation.? There are no obvious deficits in memory, reasoning, or intellect.? Skin-no obvious rashes, bruising, erythema noted to the patient's area of pain. Extremities- extremities are warm with minimal edema and palpable pulses. Lumbar-no significant tenderness to palpation noted in the lumbar spine and paraspinal musculature.?Multiple trigger points expressed on palpation. Pain is elicited with extension, and lateral rotation of the lumbar spine. Range of motion is slightly diminished with these motions due to pain. Coordination remains intact.? Gait remains non-antalgic. Assessment and Plan Assessment and Plan (1) Myofascial pain dysfunction syndrome: (2) Lumbar spondylosis: Plan 48yom who presents for assessment. failed physical and medical modalities. given low back spasming and trigger points expressed on palpation, prudent to attempt bilateral paralumbar trigger point injections. he is in agreement. meds reviewed, will refill percocet. follow up in 4-6 weeks. Procedure: Bilateral paralumbar trigger point injection Medications: Bupivacaine 0.25% 4cc, kenalog 40mg I explained the details of the procedure to the patient including the risks, benefits, and alternatives.? We had an informed discussion.? The patient verbalized understanding and signed the consent form.? All questions were answered appropriately.? A time-out was performed.? After obtaining a comfortable seated position, the skin overlying the lumbar spine was prepped with alcohol 3 times.? The needle was inserted in a sterile manner towards the trigger points expressed. The contents of the syringe were gently injected without any resistance into the joint space after negative aspiration for blood or other bodily fluids.? The needle was removed and pressure was applied at the injection site to decrease the incidence of ecchymosis and hematoma formation.? A sterile bandage was applied.
== END 2023-08-22 14:03 | disposition home or self-care (01) ==
PROVIDERS: PCP Family Medicine; Visit Provider Anesthesiology
DX: M79.18 Myalgia, other site (principal); M47.816 Spondylosis without myelopathy or radiculopathy, lumbar region
CPT/HCPCS: 20553; J0665; J3301

== ENCOUNTER 2023-09-19 11:08 | Outpatient (OUT) | payer BC, SELFPAY ==
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
== END 2023-09-19 11:09 | disposition home or self-care (01) ==
PROVIDERS: PCP Family Medicine; Visit Provider Anesthesiology
DX: M79.18 Myalgia, other site (principal); M47.816 Spondylosis without myelopathy or radiculopathy, lumbar region
CPT/HCPCS: 20553; J0665; J3301

== ENCOUNTER 2023-09-29 12:19 | Outpatient (OUT) | payer BC, SELFPAY ==
--- OUTSIDE RECORDS SUMMARY | 2023-09-29 12:24 | XMS_ITS | CCD ---
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 Performed By: #### 2 150213 ####[facility] [address] [place] [address] U PCP Scr Negative Normal NEGATIVE [facility] Comment on above: Performed By: #### 2 [id number] ####[facility] [address] [place] [address] Vaccinationson 09-16-2023 Vaccinations [id number] Normal [facility] eGFRon 09-16-2023 eGFR 93 mL/min/1.73 m2 Normal >=59 [facility] Comment on above: Order Comment: Order added by Discern Expert. Performed By: #### 2 [id number], [id number], [id number], 9740572, 7739972, 9921491, 3222063, [id number] ####[facility] [address] [place] [address] XR CHEST 2 Von 12-10-2022 XR CHEST [...] ALFONZO FERNANDEZ Date: 2022-12-10 12:03 Normal [facility] [place] CBC AUTO DIFFon 07-06-2022 BASO # 0.1 103/ul Normal 0.0-0.1 [facility] Comment on above: Performed By: #### B CATHY, TSH #### [facility] [place] [facility] [address] [place] [address] Dr. Fazal Shearer Basophils/100 WBC (Bld) 0.8 % Normal 0.2-2.0 [facility] Comment on above: Performed By: #### B CATHY, TSH #### [facility] [place] [facility] [address] [place] [address] Dr. Fazal Shearer EO # 0.2 103/ul Normal 0.0-0.7 [facility] Comment on above: Performed By: #### B CATHY, TSH #### [facility] [place] [facility] [address] [place] [address] Dr. Fazal Shearer Eosinophils/100 WBC (Bld) 2.1 % Normal 0.9-7.0 [facility] Comment on above: Performed By: #### B CATHY, TSH #### [facility] [place] [facility] [address] [place] [address] Dr. Fazal Shearer Erythrocyte distribution width (RBC) [Ratio] 12.7 % Normal 11.0-15.0 [facility] Comment on above: Performed By: #### B CATHY, TSH #### [facility] [place] [facility] [address] [place] [address] Dr. Fazal Shearer Hematocrit (Bld) [Volume fraction] 45.2 % Normal 42.0-54.0 [facility] Comment on above: Performed By: #### B MP, TSH #### [facility] [place] [facility] [address] [place] [address] Dr. Fazal Shearer Hemoglobin (Bld) [Mass/Vol] 15.4 g/dL Normal 14.0-18.0 [facility] Comment on above: Performed By: #### B MP, TSH #### [facility] [place] [facility] [address] [place] [address] Dr. Fazal Shearer IG # 0.07 10e3/ul Critically high 0.00-0.03 [facility] Comment on above: Performed By: #### B CATHY, TSH #### [facility] [place] [facility] [address] [place] [address] Dr. Fazal Shearer IG % 0.9 % Critically high 0.0-0.5 [facility] Comment on above: Performed By: #### B CATHY, TSH #### [facility] [place] [facility] [address] [place] [address] Dr. Fazal Shearer LYMPH # 2.3 103/ul Normal 1.2-3.8 [facility] Comment on above: Performed By: #### B CATHY, TSH #### [facility] [place] [facility] [address] [place] [address] Dr. Fazal Shearer Lymphocytes/100 WBC (Bld) 30.2 % Normal 20.5-60.0 [facility] Comment on above: Performed By: #### B CATHY, TSH #### [facility] [place] [facility] [address] [place] [address] Dr. Fazal Shearer MANUAL DIFF REQ NO Normal [facility] Comment on above: Performed By: #### B MP, TSH #### [facility] [place] [facility] [address] [place] [address] Dr. Fazal Shearer MCH (RBC) [Entitic mass] 28.8 pg Normal 25.9-34.0 [facility] Comment on above: Performed By: #### B CATHY, TSH #### [facility] [place] [facility] [address] [place] [address] Dr. Fazal Shearer MCHC (RBC) [Mass/Vol] 34.1 g/dL Normal 29.9-35.2 [facility] Comment on above: Performed By: #### B CATHY, TSH #### [facility] [place] [facility] [address] [place] [address] Dr. Fazal Shearer MCV (RBC) [Entitic vol] 84.6 fL Normal 80.0-94.0 [facility] Comment on above: Performed By: #### B MP, TSH #### [facility] [place] [facility] [address] [place] [address] Dr. Fazal Shearer MONO # 0.6 103/ul Normal 0.3-0.8 [facility] Comment on above: Performed By: #### B CATHY, TSH #### [facility] [place] [facility] [address] [place] [address] Dr. Fazal Shearer Monocytes/100 WBC (Bld) 7.5 % Normal 1.7-12.0 [facility] Comment on above: Performed By: #### B CATHY, TSH #### [facility] [place] [facility] [address] [place] [address] Dr. Fazal Shearer NEUT # 4.4 103/ul Normal 1.4-6.5 [facility] Comment on above: Performed By: #### B CATHY, TSH #### [facility] [place] [facility] [address] [place] [address] Dr. Fazal Shearer Neutrophils/100 WBC (Bld) 58.5 % Normal 43.0-75.0 [facility] Comment on above: Performed By: #### B CATHY, TSH #### [facility] [place] [facility] [address] [place] [address] Dr. Fazal Shearer Platelet mean volume (Bld) [Entitic vol] 9.1 fL Critically low 9.5-13.5 [facility] Comment on above: Performed By: #### B CATHY, TSH #### [facility] [place] [facility] [address] [place] [address] Dr. Fazal Shearer PLT 245 103/ul Normal 150-450 [facility] [place] Comment on above: Performed By: #### B CATHY, TSH #### [facility] [place] [facility] [address] [place] [address] Dr. Fazal Shearer RBC 5.34 106/ul Normal 4.70-6.10 [facility] Comment on above: Performed By: #### B CATHY, TSH #### [facility] [place] [facility] [address] [address] [address] Fazal Shearer WBC 7.5 103/ul Normal 4.0-11.0 [facility] Comment on above: Performed By: #### B CATHY, TSH #### [facility] [place] [facility] [address] [address] [address] Fazal Shearer PROF CHEM 8 (BAS METB)on Anion gap [Moles/Vol] 9.3 mmol/L Normal [facility] Comment on above: Performed By: #### B CATHY, TSH #### [facility] [place] [facility] [address] [place] [address] Dr. Fazal Shearer Calcium [Mass/Vol] 9.2 mg/dL Normal 8.5-10.1 [facility] Comment on above: Performed By: #### B CATHY, TSH #### [facility] [place] [facility] [address] [place] [address] Dr. Fazal Shearer Chloride [Moles/Vol] 105 mmol/L Normal 98-107 [facility] [place] Comment on above: Performed By: #### B CATHY, TSH #### [facility] [place] [facility] [address] [place] [address] Dr. Fazal Shearer CO2 [Moles/Vol] 31.9 mmol/L Normal 21.0-32.0 [facility] Comment on above: Performed By: #### B CATHY, TSH #### [facility] [place] [facility] [address] [address] [address] Fazal Shearer Creatinine [Mass/Vol] 1.04 mg/dL Normal 0.70-1.30 [facility] [place] Comment on above: Performed By: #### B CATHY, TSH #### [facility] [place] [facility] [address] [place] [address] Dr. Fazal Shearer EGFR-AF SLOVAK >60 Normal >=60 [facility] Comment on above: Performed By: #### B CATHY, TSH #### [facility] [place] [facility] [address] [address] [address] Fazal Shearer EGFR-NON AF SLOVAK >60 Normal >=60 [facility] [place] Comment on above: Performed By: #### B MP, TSH #### [facility] [place] [facility] [address] [address] [address] Fazal Shearer Glucose [Mass/Vol] 102 mg/dL Normal 74-106 [facility] Comment on above: Performed By: #### B MP, TSH #### [facility] [place] [facility] [address] [address] [address] Fazal Shearer Potassium [Moles/Vol] 5.2 mmol/L Critically high 3.5-5.1 [facility] Comment on above: Performed By: #### B MP, TSH #### [facility] [place] [facility] [address] [place] [address] Dr. Fazal Shearer Sodium [Moles/Vol] 141 mmol/L Normal 136-145 [facility] Comment on above: Performed By: #### B MP, TSH #### [facility] [place] [facility] [address] [place] [address] Dr. Fazal Shearer Urea nitrogen [Mass/Vol] 15.0 mg/dL Normal 7.0-18.0 [facility] Comment on above: Performed By: #### B MP, TSH #### [facility] [place] [facility] [address] [place] [address] Dr. Fazal Shearer Urea nitrogen/Creatinine [Mass ratio] 14.4 mg/mg Normal [facility] Comment on above: Performed By: #### B MP, TSH #### [facility] [place] [facility] [address] [place] [address] Dr. Fazal Shearer TSHon 07-06-2022 TSH 1.300 uIU/mL Normal 0.358-3.740 [facility] Comment on above: Performed By: #### B MP, TSH #### [facility] [place] [facility] [address] [place] [address] Dr. Fazal Shearer CBC AUTO DIFFon 03-31-2022 BASO # 0.1 103/ul Normal 0.0-0.1 [facility] Comment on above: Performed By: #### B MP, TSH #### [facility] [place] [facility] [address] [address] [address] Fazal Shearer Basophils/100 WBC (Bld) 0.9 % Normal 0.2-2.0 [facility] Comment on above: Performed By: #### B MP, TSH #### [facility] [place] [facility] [address] [place] [address] Dr. Fazal Shearer EO # 0.2 103/ul Normal 0.0-0.7 [facility] Comment on above: Performed By: #### B MP, TSH #### [facility] [place] [facility] [address] [place] [address] Dr. Fazal Shearer Eosinophils/100 WBC (Bld) 3.2 % Normal 0.9-7.0 [facility] Comment on above: Performed By: #### B MP, TSH #### [facility] [place] [facility] [address] [place] [address] Dr. Fazal Shearer Erythrocyte distribution width (RBC) [Ratio] 12.2 % Normal 11.0-15.0 [facility] Comment on above: Performed By: #### B MP, TSH #### [facility] [place] [facility] [address] [place] [address] Dr. Fazal Shearer Hematocrit (Bld) [Volume fraction] 41.3 % Critically low 42.0-54.0 [facility] Comment on above: Performed By: #### B MP, TSH #### [facility] [place] [facility] [address] [place] [address] Dr. Fazal Shearer Hemoglobin (Bld) [Mass/Vol] 14.1 g/dL Normal 14.0-18.0 [facility] Comment on above: Performed By: #### B MP, TSH #### [facility] [place] [facility] [address] [place] [address] Dr. Fazal Shearer IG # 0.05 10e3/ul Critically high 0.00-0.03 [facility] Comment on above: Performed By: #### B MP, TSH #### [facility] [place] [facility] [address] [place] [address] Dr. Fazal Shearer IG % 0.9 % Critically high 0.0-0.5 [facility] Comment on above: Performed By: #### B MP, TSH #### [facility] [place] [facility] [address] [address] [address] Fazal Shearer LYMPH # 2.0 103/ul Normal 1.2-3.8 [facility] Comment on above: Performed By: #### B MP, TSH #### [facility] [place] [facility] [address] [address] [address] Fazal Shearer Lymphocytes/100 WBC (Bld) 33.5 % Normal 20.5-60.0 [facility] Comment on above: Performed By: #### B MP, TSH #### [facility] [place] [facility] [address] [place] [address] Dr. Fazal Shearer MANUAL DIFF REQ NO Normal [facility] Comment on above: Performed By: #### B MP, TSH #### [facility] [place] [facility] [address] [place] [address] Dr. Fazal Shearer MCH (RBC) [Entitic mass] 29.3 pg Normal 25.9-34.0 [facility] Comment on above: Performed By: #### B MP, TSH #### [facility] [place] [facility] [address] [place] [address] Dr. Fazal Shearer MCHC (RBC) [Mass/Vol] 34.1 g/dL Normal 29.9-35.2 [facility] Comment on above: Performed By: #### B MP, TSH #### [facility] [place] [facility] [address] [place] [address] Dr. Fazal Shearer MCV (RBC) [Entitic vol] 85.9 fL Normal 80.0-94.0 [facility] Comment on above: Performed By: #### B MP, TSH #### [facility] [place] [facility] [address] [place] [address] Dr. Fazal Shearer MONO # 0.5 103/ul Normal 0.3-0.8 [facility] Comment on above: Performed By: #### B MP, TSH #### [facility] [place] [facility] [address] [address] [address] Fazal Shearer Monocytes/100 WBC (Bld) 8.4 % Normal 1.7-12.0 [facility] Comment on above: Performed By: #### B MP, TSH #### [facility] [place] [facility] [address] [place] [address] Dr. Fazal Shearer NEUT # 3.1 103/ul Normal 1.4-6.5 [facility] Comment on above: Performed By: #### B MP, TSH #### [facility] [place] [facility] [address] [place] [address] Dr. Fazal Shearer Neutrophils/100 WBC (Bld) 53.1 % Normal 43.0-75.0 [facility] Comment on above: Performed By: #### B MP, TSH #### [facility] [place] [facility] [address] [place] [address] Dr. Fazal Shearer Platelet mean volume (Bld) [Entitic vol] 9.3 fL Critically low 9.5-13.5 [facility] Comment on above: Performed By: #### B MP, TSH #### [facility] [place] [facility] [address] [place] [address] Dr. Fazal Shearer PLT 248 103/ul Normal 150-450 [facility] Comment on above: Performed By: #### B MP, TSH #### [facility] [place] [facility] [address] [place] [address] Dr. Fazal Shearer RBC 4.81 106/ul Normal 4.70-6.10 [facility] Comment on above: Performed By: #### B MP, TSH #### [facility] [place] [facility] [address] [place] [address] Dr. Fazal Shearer WBC 5.9 103/ul Normal 4.0-11.0 [facility] Comment on above: Performed By: #### B MP, TSH #### [facility] [place] [facility] [address] [place] [address] Dr. Fazal Shearer ECHOCARDIO M/2D COMPLETEon 0 03-31-2022 ECHOCARDIO M/2D COMPLETE Patient: SUSHILA YATES Exam Date: 03/31/2022 : 1975 Gender:M Ordering : DR JAYMIE MART M.D. Admission #: [id number] Family : Order #: [id number] CLICK HERE TO VIEW EXAM ECHOCARDIOGRAM REPORT [...] Mei M.D. on 03/31/2022 at 19:40 Normal [facility] PROF CHEM 8 (BAS METB)on Anion gap [Moles/Vol] 7.8 mmol/L Normal [facility] Comment on above: Performed By: #### B MP, TSH #### [facility] [place] [facility] [address] [place] [address] Dr. Fazal Shearer Calcium [Mass/Vol] 8.4 mg/dL Critically low 8.5-10.1 Th e [facility] [place] Comment on above: Performed By: #### B MP, TSH #### [facility] [place] [facility] [address] [address] [address] Fazal Shearer Chloride [Moles/Vol] 104 mmol/L Normal 98-107 [facility] Comment on above: Performed By: #### B MP, TSH #### [facility] [place] [facility] [address] [address] [address] Fazal Shearer CO2 [Moles/Vol] 30.3 mmol/L Normal 21.0-32.0 [facility] Comment on above: Performed By: #### B MP, TSH #### [facility] [place] [facility] [address] [address] [address] Fazal Shearer Creatinine [Mass/Vol] 0.99 mg/dL Normal 0.70-1.30 [facility] [place] Comment on above: Performed By: #### B MP, TSH #### [facility] [place] [facility] [address] [address] [address] Fazal Shearer EGFR-AF SLOVAK >60 Normal >=60 [facility] Comment on above: Performed By: #### B MP, TSH #### [facility] [place] [facility] [address] [address] [address] Fazal Shearer EGFR-NON AF SLOVAK >60 Normal >=60 [facility] Comment on above: Performed By: #### B MP, TSH #### [facility] [place] [facility] [address] [address] [address] Fazal Shearer Glucose [Mass/Vol] 103 mg/dL Normal 74-106 [facility] Comment on above: Performed By: #### B MP, TSH #### [facility] [place] [facility] [address] [address] [address] Fazal Shearer Potassium [Moles/Vol] 4.1 mmol/L Normal 3.5-5.1 [facility] [place] Comment on above: Performed By: #### B MP, TSH #### [facility] [place] [facility] [address] [address] [address] Fazal Shearer Sodium [Moles/Vol] 138 mmol/L Normal 136-145 [facility] Comment on above: Performed By: #### B MP, TSH #### [facility] [place] [facility] [address] [place], [place] [address] Dr. Fazal Shearer Urea nitrogen [Mass/Vol] 17.0 mg/dL Normal 7.0-18.0 [facility] Comment on above: Performed By: #### B MP, TSH #### [facility] [place] [facility] [address] [place], [place] [address] Dr. Fazal Shearer Urea nitrogen/Creatinine [Mass ratio] 17.2 mg/mg Normal [facility] Comment on above: Performed By: #### B MP, TSH #### [facility] [place] [facility] [address] [place], [place] [address] Dr. Fazal Shearer TSHon 03-31-2022 TSH 0.867 uIU/mL Normal 0.358-3.740 [facility] Comment on above: Performed By: #### B MP, TSH #### [facility] [place] [facility] [address] [place], [place] [address] LUMBAR SPINE W [...] mm posterior listhesis of L5 on S1. [employer] Work Phone: [place], [facility] Incoming Radiant Results From [employer] - 02/26/2021 10:26 AM EDT IMPRESSION: L5/S1 [...] mm posterior listhesis of L5 on S1. [employer] Work Phone: IR LUMBAR PUNCTURE FOR MYELO [...] Please see CT dictation for full details. [employer] Work Phone: [place], [facility] Incoming Radiant Results From [employer] - 02/26/2021 11:13 AM EDT IMPRESSION: 1. [...] Please see CT dictation for full details. [employer] Phone: No Panel InformationOrdered By: Hamilton Cummings on 02-26-2021 [employer] Phone: [employer] Phone: CT LUMBAR SPINE W CONTRASTon 02-25-2021 [...] Shun Shah MD 02/26/21 Final result Normal [facility] IR LUMBAR PUNCTURE FOR MYELO GRAM [...] Shun Shah MD 02/26/21 Final result Normal [facility] Basic Metabolic Panelon 07-1 Anion gap [Moles/Vol] 10 mmol/L Normal 9-15 [facility] Comment on above: Performed By: #### B MP #### [facility] [address] [place] [address] Calcium [Mass/Vol] 9.3 mg/dL Normal 8.5-9.9 [facility] Comment on above: Performed By: #### B MP #### [facility] [address] [place] [address] Chloride [Moles/Vol] 102 mmol/L Normal 95-107 [facility] Comment on above: Performed By: #### B MP #### [facility] [address] [place] [address] CO2 [Moles/Vol] 27 mmol/L Normal 20-31 [facility] Comment on above: Performed By: #### B MP #### [facility] [address] [place] [address] Creatinine [Mass/Vol] 0.83 mg/dL Normal 0.70-1.20 [facility] Comment on above: Performed By: #### B MP #### [facility] [address] [place] [address] GFR >60.0 Normal >60 [facility] Comment on above: Result Comment: >60 mL/min/1.73m2 EGFR, calc. for ages 18 and older using the MDRD formula (not corrected for weight), is valid for stable renal function. Performed By: #### B MP #### [facility] [address] [place] [address] GFR/1.73 sq M.predicted among blacks MDRD (S/P/Bld) [Vol rate/Area] mL/min/{1.73_m2} Normal >60 [facility] Comment on above: Result Comment: >60 mL/min/1.73m2 EGFR, calc. for ages 18 and older using the MDRD formula (not corrected for weight), is valid for stable renal function. Performed By: #### B MP #### [facility] [address] [place] [address] Glucose [Mass/Vol] 96 mg/dL Normal 70-99 [facility] Comment on above: Performed By: #### B MP #### [facility] [address] [place] [address] Potassium [Moles/Vol] 3.8 mmol/L Normal 3.4-4.9 [facility] Comment on above: Performed By: #### B MP #### [facility] [address] [place] [address] Sodium [Moles/Vol] 139 mmol/L Normal 135-144 [facility] Comment on above: Performed By: #### B MP #### [facility] [address] [place] [address] Urea nitrogen [Mass/Vol] 13 mg/dL Normal 6-20 [facility] Comment on above: Performed By: #### B MP #### [facility] [address] [place] [address] CBC With Platelet No Differe ntialon 02-19-2021 Erythrocyte distribution width (RBC) [Ratio] 12.9 % Normal 11.5-14.5 [facility] Comment on above: Performed By: #### C BCND #### [facility] [address] [place] [address] Hematocrit (Bld) [Volume fraction] 45.5 % Normal 42.0-52.0 [facility] Comment on above: Performed By: #### C BCND #### [facility] [address] [place] [address] Hemoglobin (Bld) [Mass/Vol] 15.3 g/dL Normal 14.0-18.0 [facility] Comment on above: Performed By: #### C BCND #### [facility] [address] [place] [address] MCH (RBC) [Entitic mass] 28.7 pg Normal 27.0-31.3 [facility] Comment on above: Performed By: #### C BCND #### [facility] [address] [place] [address] MCHC 33.7 % Normal 33.0-37.0 [facility] Comment on above: Performed By: #### C BCND #### [facility] [address] [place] [address] MCV (RBC) [Entitic vol] 85.4 fL Normal 80.0-100.[address] [facility] Comment on above: Performed By: #### C BCND #### [facility] [address] [place] [address] Platelets (Bld) [#/Vol] 259 10*3/uL Normal 130-400 [facility] Comment on above: Performed By: #### C BCND #### [facility] [address] [place] [address] RBC (Bld) [#/Vol] 5.33 10*6/uL Normal 4.70-6.10 [facility] Comment on above: Performed By: #### C BCND #### [facility] [address] [place] [address] WBC (Bld) [#/Vol] 6.2 10*3/uL Normal 4.8-10.8 [facility] Comment on above: Performed By: #### C BCND #### [facility] [address] [place] [address] Prothrombin Timeon 1 INR Coag (PPP) [Relative time] 1.0 {INR} Normal [facility] Comment on above: Performed By: #### P T #### [facility] [address] [place] [address] PT Coag (PPP) [Time] 13.2 s Normal 12.3-14.9 [facility] Comment on above: Performed By: #### P T #### [facility] [address] [place] [address] Vital Signs Date Time Vital Sign Value Performing Clinician Facility 09-19-2023 11:45-0500 Body height 182.88 cm Jaymie Mart Other [facility] Other 09-19-2023 11:45-0500 Body mass index (BMI) [Ratio] 37.29 kg/m2 Jaymie Mart Other [facility] Other 09-19-2023 11:45-0500 Body weight 124.74 kg Jaymie Mart Other [facility] Other 09-19-2023 11:45-0500 Diastolic blood pressure 81 mm[Hg] Jaymie Mart Other [facility] Other 09-19-2023 11:45-0500 Systolic blood pressure 121 mm[Hg] Jaymie Mart Other [facility] Other 07-26-2023 10:45-0500 Body height 182.88 cm Jaymie Mart Other [facility] Other 07-26-2023 10:45-0500 Body mass index (BMI) [Ratio] 37.24 kg/m2 Jaymie Mart Other [facility] Other 07-26-2023 10:45-0500 Body weight 124.56 kg Jaymie Mart Other [facility] Other 07-26-2023 10:45-0500 Diastolic blood pressure 85 mm[Hg] Jaymie Mart Other [facility] Other 07-26-2023 10:45-0500 Systolic blood pressure 122 mm[Hg] Jaymie Mart Other [facility] Other 06-03-2023 15:00-0400 Body height 182.88 cm Jaymie Mart Other [facility] Other 06-03-2023 15:00-0400 Body mass index (BMI) [Ratio] 37.81 kg/m2 Jaymie Mart Other [facility] Other 06-03-2023 15:00-0400 Body temperature 98 [degF] Jaymie Mart Other [facility] Other 06-03-2023 15:00-0400 Body weight 126.46 kg Jaymie Mart Other [facility] Other 06-03-2023 15:00-0400 Diastolic blood pressure 76 mm[Hg] Jaymie Mart Other [facility] Other 06-03-2023 15:00-0400 SaO2% (BldA) [Mass fraction] 98 % Jaymie Mart Other [facility] Other 06-03-2023 15:00-0400 Systolic blood pressure 130 mm[Hg] Jaymie Mart Other [facility] Other 02-11-2023 10:30-0400 Body height 182.88 cm Jaymie Mart Other [facility] Other 02-11-2023 10:30-0400 Body mass index (BMI) [Ratio] 37.16 kg/m2 Jaymie Mart Other [facility] Other 02-11-2023 10:30-0400 Body weight 124.29 kg Jaymie Mart Other [facility] Other 02-11-2023 10:30-0400 Diastolic blood pressure 85 mm[Hg] Jaymie Mart Other [facility] Other 02-11-2023 10:30-0400 Systolic blood pressure 124 mm[Hg] Jaymie Mart Other [facility] Other 11-02-2022 16:15-0400 Body height 182.88 cm Austin Ball Other [facility] Other 11-02-2022 16:15-0400 Body mass index (BMI) [Ratio] 37.05 kg/m2 Austin Ball Other [facility] Other 11-02-2022 16:15-0400 Body weight 123.92 kg Austin Ball Other [facility] Other 11-02-2022 16:15-0400 Diastolic blood pressure 86 mm[Hg] Austin Ball Other [facility] Other 11-02-2022 16:15-0400 Respiratory rate 16 /min Austin Ball Other [facility] Other 11-02-2022 16:15-0400 Systolic blood pressure 136 mm[Hg] Austin Ball Other [facility] Other 10-27-2022 11:30-0400 Body height 182.88 cm Jaymie Mart Other [facility] Other 10-27-2022 11:30-0400 Body mass index (BMI) [Ratio] 37.29 kg/m2 Jaymie Mart Other [facility] Other 10-27-2022 11:30-0400 Body weight 124.74 kg Jaymie Mart Other [facility] Other 10-27-2022 11:30-0400 Diastolic blood pressure 80 mm[Hg] Jaymie Mart Other [facility] Other 10-27-2022 11:30-0400 SaO2% (BldA) [Mass fraction] 97 % Jaymie Mart Other [facility] Other 10-27-2022 11:30-0400 Systolic blood pressure 132 mm[Hg] Jaymie Mart Other [facility] Other 02-25-2021 14:30-0400 Diastolic blood pressure 90 mm[Hg] [place] [facility] Phone: 02-25-2021 14:30-0400 Heart rate 79 /min [place] 1 [facility] Phone: 02-25-2021 14:30-0400 Respiratory rate 16 /min [place] 1 [facility] Phone: 02-25-2021 14:30-0400 SaO2% (BldA) [Mass fraction] 97 % [place] 1 [facility] Phone: 02-25-2021 14:30-0400 Systolic blood pressure 148 mm[Hg] [place] 1 [facility] Phone: 02-25-2021 10:43-0400 Body height 180.3 cm [place] 1 [facility] Phone: 02-25-2021 10:43-0400 Body mass index (BMI) [Ratio] 36.54 kg/m2 [place] 1 [facility] Phone: 02-25-2021 10:43-0400 Body weight 118.84 kg [place] 1 [facility] Phone: Encounters Encounter Date Encounter Type Care Provider Facility Start: 09-19-2023 End: 09-20-2023 ambulatory Andosman Clark MD [facility] Other Start: 09-19-2023 Office outpatient vi sit 15 minutes Jaymie Mart [facility] Start: 09-16-2023 End: 09-17-2023 Emergency department patient visit Mayela Vicente [place] Start: 08-22-2023 End: 08-23-2023 ambulatory Portia Clark MD Facility:[facility] Start: 08-17-2023 End: 08-17-2023 ambulatory Jaymie Mart Other [facility] Other Start: 08-17-2023 Telephone encounter Jaymie Mart [facility] Start: 07-26-2023 End: 07-26-2023 ambulatory Jaymie Mart Other [facility] Other Start: 07-26-2023 Office outpatient vi sit 15 minutes Jaymie Mart [facility] Start: 07-18-2023 End: 07-18-2023 ambulatory Jaymie Barron Other [facility] Other Start: 07-18-2023 Telephone encounter Jaymie Mart [facility] Start: 06-03-2023 End: 06-03-2023 ambulatory Jaymie Barron Other [facility] Other Start: 06-03-2023 Office outpatient vi sit 15 minutes Jaymie Mart [facility] Start: 05-27-2023 End: 05-27-2023 ambulatory Jaymie Barron Other [facility] Other Start: 05-27-2023 Telephone encounter Jaymie Mart [facility] Start: 02-11-2023 End: 02-11-2023 ambulatory Jaymie Mart Other [facility] Other Start: 02-11-2023 Office outpatient vi sit 15 minutes Jaymie Mart [facility] Start: 12-10-2022 Telephone encounter Jaymie Mart [facility] Start: 12-10-2022 End: 12-11-[address] JAYMIE MART [facility]

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
== END 2023-09-29 12:20 | disposition home or self-care (01) ==
PROVIDERS: PCP Family Medicine; Visit Provider Family Medicine
DX: N50.82 Scrotal pain (principal)
CPT/HCPCS: 76870

== ENCOUNTER 2023-10-10 09:02 | Outpatient (OUT) | payer BC, SELFPAY ==
--- OUTSIDE RECORDS SUMMARY | 2023-10-10 09:07 | XMS_ITS | CCD ---
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 #### B CAHTY, TSH #### [facility] [address] [place] [address] Dr. Fazal Shearer Calcium [Mass/Vol] 9.2 mg/dL Normal 8.5-10.1 [facility] Comment on above: Performed By: #### B CATHY, TSH #### [facility] [address] [place] [address] Dr. Fazal Shearer Chloride [Moles/Vol] 105 mmol/L Normal 98-107 [facility] Comment on above: Performed By: #### B CATHY, TSH #### [facility] [address] [place] [address] Dr. Fazal Shearer CO2 [Moles/Vol] 31.9 mmol/L Normal 21.0-32.0 [facility] Comment on above: Performed By: #### B CATHY, TSH #### [facility] [address] [place] [address] Dr. Fazal Shearer Creatinine [Mass/Vol] 1.04 mg/dL Normal 0.70-1.30 [facility] Comment on above: Performed By: #### B CATHY, TSH #### [facility] [address] [place] [address] Dr. Fazal Shearer EGFR-AF CITIZEN OF [place] >60 Normal >=60 [facility] Comment on above: Performed By: #### B CATHY, TSH #### [facility] [address] [address] [address] Fazal Shearer EGFR-NON AF CITIZEN OF [place] >60 Normal >=60 [facility] Comment on above: Performed By: #### B MP, TSH #### [facility] [address] [address] [address] Fazal Shearer Glucose [Mass/Vol] 102 mg/dL Normal 74-106 [facility] Comment on above: Performed By: #### B MP, TSH #### [facility] [address] [address] [address] Fazal Shearer Potassium [Moles/Vol] 5.2 mmol/L Critically high 3.5-5.1 [facility] Comment on above: Performed By: #### B CATHY, TSH #### [facility] [address] [place] [address] Dr. Fazal Shearer Sodium [Moles/Vol] 141 mmol/L Normal 136-145 [facility] Comment on above: Performed By: #### B CATHY, TSH #### [facility] [address] [place] [address] Dr. Fazal Shearer Urea nitrogen [Mass/Vol] 15.0 mg/dL Normal 7.0-18.0 [facility] Comment on above: Performed By: #### B CATHY, TSH #### [facility] [address] [place] [address] Dr. Fazal Shearer Urea nitrogen/Creatinine [Mass ratio] 14.4 mg/mg Normal [facility] Comment on above: Performed By: #### B CATHY, TSH #### [facility] [address] [place] [address] Dr. Fazal Shearer TSHon 07-06-2022 TSH 1.300 uIU/mL Normal 0.358-3.740 [facility] Comment on above: Performed By: #### B MP, TSH #### [facility] [address] [place] [address] Dr. Fazal Shearer CBC AUTO DIFFon 03-31-2022 BASO # 0.1 103/ul Normal 0.0-0.1 [facility] Comment on above: Performed By: #### B CATHY, TSH #### [facility] [address] [place] [address] Dr. Fazal Shearer Basophils/100 WBC (Bld) 0.9 % Normal 0.2-2.0 [facility] Comment on above: Performed By: #### B MP, TSH #### [facility] [address] [place] [address] Dr. Fazal Shearer EO # 0.2 103/ul Normal 0.0-0.7 [facility] Comment on above: Performed By: #### B MP, TSH #### [facility] [address] [place] [address] Dr. Fazal Shearer Eosinophils/100 WBC (Bld) 3.2 % Normal 0.9-7.0 [facility] Comment on above: Performed By: #### B MP, TSH #### [facility] [address] [place] [address] Dr. Fazal Shearer Erythrocyte distribution width (RBC) [Ratio] 12.2 % Normal 11.0-15.0 [facility] Comment on above: Performed By: #### B MP, TSH #### [facility] [address] [place] [address] Dr. Fazal Shearer Hematocrit (Bld) [Volume fraction] 41.3 % Critically low 42.0-54.0 [facility] Comment on above: Performed By: #### B MP, TSH #### [facility] [address] [place] [address] Dr. Fazal Shearer Hemoglobin (Bld) [Mass/Vol] 14.1 g/dL Normal 14.0-18.0 [facility] Comment on above: Performed By: #### B MP, TSH #### [facility] [address] [place] [address] Dr. Fazal Shearer IG # 0.05 10e3/ul Critically high 0.00-0.03 [place] Comment on above: Performed By: #### B MP, TSH #### [facility] [address] [place] [address] Dr. Fazal Shearer IG % 0.9 % Critically high 0.0-0.5 [facility] Comment on above: Performed By: #### B MP, TSH #### [facility] [address] [address] [address] Fazal Shearer LYMPH # 2.0 103/ul Normal 1.2-3.8 [facility] Comment on above: Performed By: #### B MP, TSH #### [facility] [address] [address] [address] Fazal Shearer Lymphocytes/100 WBC (Bld) 33.5 % Normal 20.5-60.0 [facility] Comment on above: Performed By: #### B MP, TSH #### [facility] [address] [place] [address] Dr. Fazal Shearer MANUAL DIFF REQ NO Normal [facility] Comment on above: Performed By: #### B MP, TSH #### [facility] [address] [place] [address] Dr. Fazal Shearer MCH (RBC) [Entitic mass] 29.3 pg Normal 25.9-34.0 [facility] Comment on above: Performed By: #### B MP, TSH #### [facility] [address] [place] [address] Dr. Fazal Shearer MCHC (RBC) [Mass/Vol] 34.1 g/dL Normal 29.9-35.2 [facility] Comment on above: Performed By: #### B MP, TSH #### [facility] [address] [place] [address] Dr. Fazal Shearer MCV (RBC) [Entitic vol] 85.9 fL Normal 80.0-94.0 [facility] Comment on above: Performed By: #### B MP, TSH #### [facility] [address] [place] [address] Dr. Fazal Shearer MONO # 0.5 103/ul Normal 0.3-0.8 [facility] Comment on above: Performed By: #### B MP, TSH #### [facility] [address] [place] [address] Dr. Fazal Shearer Monocytes/100 WBC (Bld) 8.4 % Normal 1.7-12.0 [facility] Comment on above: Performed By: #### B MP, TSH #### [facility] [address] [place] [address] Dr. Fazal Shearer NEUT # 3.1 103/ul Normal 1.4-6.5 [facility] Comment on above: Performed By: #### B MP, TSH #### [facility] [address] [place] [address] Dr. Fazal Shearer Neutrophils/100 WBC (Bld) 53.1 % Normal 43.0-75.0 [facility] Comment on above: Performed By: #### B MP, TSH #### [facility] [address] [place] [address] Dr. Fazal Shearer Platelet mean volume (Bld) [Entitic vol] 9.3 fL Critically low 9.5-13.5 [facility] Comment on above: Performed By: #### B MP, TSH #### [facility] [address] [place] [address] Dr. Fazal Shearer PLT 248 103/ul Normal 150-450 [facility] Comment on above: Performed By: #### B MP, TSH #### [facility] [address] [place] [address] Dr. Fazal Shearer RBC 4.81 106/ul Normal 4.70-6.10 [facility] Comment on above: Performed By: #### B MP, TSH #### [facility] [address] [place] [address] Dr. Fazal Shearer WBC 5.9 103/ul Normal 4.0-11.0 [facility] Comment on above: Performed By: #### B MP, TSH #### [facility] [address] [place] [address] Dr. Fazal Shearer ECHOCARDIO M/2D COMPLETEon 0 03-31-2022 ECHOCARDIO M/2D COMPLETE Patient: SUSHILA YATES Exam Date: 03/31/2022 : 1975 Gender:M Ordering : DR JAYMIE MART M.D. Admission #: [id number] Family : Order #: [id number] CLICK HERE TO VIEW EXAM ECHOCARDIOGRAM REPORT [...] Mei M.D. on 03/31/2022 at 19:40 Normal [facility] PROF CHEM 8 (BAS METB)on Anion gap [Moles/Vol] 7.8 mmol/L Normal [facility] Comment on above: Performed By: #### B MP, TSH #### [facility] [address] [place] [address] Dr. Fazal Shearer Calcium [Mass/Vol] 8.4 mg/dL Critically low 8.5-10.1 [facility] Comment on above: Performed By: #### B MP, TSH #### [facility] [address] [address] [address] Fazal Shearer Chloride [Moles/Vol] 104 mmol/L Normal 98-107 [facility] Comment on above: Performed By: #### B MP, TSH #### [facility] [address] [address] [address] Fazal Shearer CO2 [Moles/Vol] 30.3 mmol/L Normal 21.0-32.0 [facility] Comment on above: Performed By: #### B MP, TSH #### [facility] [address] [address] [address] Fazal Shearer Creatinine [Mass/Vol] 0.99 mg/dL Normal 0.70-1.30 [facility] Comment on above: Performed By: #### B MP, TSH #### [facility] [address] [address] [address] Fazal Shearer EGFR-AF CITIZ[place] >60 Normal >=60 [facility] Comment on above: Performed By: #### B MP, TSH #### [facility] [address] [address] [address] Fazal Shearer EGFR-NON AF CITIZEN OF [place] >60 Normal >=60 [facility] Comment on above: Performed By: #### B MP, TSH #### [facility] [address] [address] [address] Fazal Shearer Glucose [Mass/Vol] 103 mg/dL Normal 74-106 [facility] Comment on above: Performed By: #### B MP, TSH #### [facility] [address] [address] [address] Fazal Shearer Potassium [Moles/Vol] 4.1 mmol/L Normal 3.5-5.1 [facility] Comment on above: Performed By: #### B MP, TSH #### [facility] [address] [address] [address] Fazal Shearer Sodium [Moles/Vol] 138 mmol/L Normal 136-145 [facility] Comment on above: Performed By: #### B MP, TSH #### [facility] [address] [place], [place] [address] Dr. Fazal Shearer Urea nitrogen [Mass/Vol] 17.0 mg/dL Normal 7.0-18.0 [facility] Comment on above: Performed By: #### B MP, TSH #### [facility] [address] [place], [place] [address] Dr. Fazal Shearer Urea nitrogen/Creatinine [Mass ratio] 17.2 mg/mg Normal [facility] Comment on above: Performed By: #### B MP, TSH #### [facility] [address] [place], [place] [address] Dr. Fazal Shearer TSHon 03-31-2022 TSH 0.867 uIU/mL Normal 0.358-3.740 [facility] Comment on above: Performed By: #### B MP, TSH #### [facility] [address] [place], [place] [address] LUMBAR SPINE W [...] mm posterior listhesis of L5 on S1. [employer] Work Phone: [place], [facility] Incoming Radiant Results From [employer] - 02/26/2021 10:26 AM EDT IMPRESSION: L5/S1 [...] mm posterior listhesis of L5 on S1. [employer] Work Phone: IR LUMBAR PUNCTURE FOR MYELO [...] Please see CT dictation for full details. [employer] Work Phone: [place], [place] Incoming Radiant Results From [employer] - 02/26/2021 11:13 AM EDT IMPRESSION: 1. [...] Please see CT dictation for full details. [employer] Phone: No Panel InformationOrdered By: Hamilton Cummings on 02-26-2021 [employer] Phone: [employer] Phone: CT LUMBAR SPINE W CONTRASTon 02-25-2021 [...] Shun Shah MD 02/26/21 Final result Normal [facility] IR LUMBAR PUNCTURE FOR MYELO GRAM [...] Shun Shah MD 02/26/21 Final result Normal [facility] Basic Metabolic Panelon 07- Anion gap [Moles/Vol] 10 mmol/L Normal 9-15 [facility] Comment on above: Performed By: #### B MP #### [facility] [address] [place] [address] Calcium [Mass/Vol] 9.3 mg/dL Normal 8.5-9.9 [facility] Comment on above: Performed By: #### B MP #### [facility] [address] [place] [address] Chloride [Moles/Vol] 102 mmol/L Normal 95-107 [facility] Comment on above: Performed By: #### B MP #### [facility] [address] [place] [address] CO2 [Moles/Vol] 27 mmol/L Normal 20-31 [facility] Comment on above: Performed By: #### B MP #### [facility] [address] [place] [address] Creatinine [Mass/Vol] 0.83 mg/dL Normal 0.70-1.20 [facility] Comment on above: Performed By: #### B MP #### [facility] [address] [place] [address] GFR >60.0 Normal >60 [facility] Comment on above: Result Comment: >60 mL/min/1.73m2 EGFR, calc. for ages 18 and older using the MDRD formula (not corrected for weight), is valid for stable renal function. Performed By: #### B MP #### [facility] [address] [place] [address] GFR/1.73 sq M.predicted among blacks MDRD (S/P/Bld) [Vol rate/Area] mL/min/{1.73_m2} Normal >60 [facility] Comment on above: Result Comment: >60 mL/min/1.73m2 EGFR, calc. for ages 18 and older using the MDRD formula (not corrected for weight), is valid for stable renal function. Performed By: #### B MP #### [facility] [address] [place] [address] Glucose [Mass/Vol] 96 mg/dL Normal 70-99 [facility] Comment on above: Performed By: #### B MP #### [facility] [address] [place] [address] Potassium [Moles/Vol] 3.8 mmol/L Normal 3.4-4.9 [facility] Comment on above: Performed By: #### B MP #### [facility] [address] [place] [address] Sodium [Moles/Vol] 139 mmol/L Normal 135-144 [facility] Comment on above: Performed By: #### B MP #### [facility] [address] [place] [address] Urea nitrogen [Mass/Vol] 13 mg/dL Normal 6-20 [facility] Comment on above: Performed By: #### B MP #### [facility] [address] [place] [address] CBC With Platelet No Differe ntialon 02-19-2021 Erythrocyte distribution width (RBC) [Ratio] 12.9 % Normal 11.5-14.5 [facility] Comment on above: Performed By: #### C BCND #### [facility] [address] [place] [address] Hematocrit (Bld) [Volume fraction] 45.5 % Normal 42.0-52.0 [facility] Comment on above: Performed By: #### C BCND #### [facility] [address] [place] [address] Hemoglobin (Bld) [Mass/Vol] 15.3 g/dL Normal 14.0-18.0 [facility] Comment on above: Performed By: #### C BCND #### [facility] [address] [place] [address] MCH (RBC) [Entitic mass] 28.7 pg Normal 27.0-31.3 [facility] Comment on above: Performed By: #### C BCND #### [facility] [address] [place] [address] MCHC 33.7 % Normal 33.0-37.0 [facility] Comment on above: Performed By: #### C BCND #### [facility] [address] [place] [address] MCV (RBC) [Entitic vol] 85.4 fL Normal 80.0-100.0 [facility] Comment on above: Performed By: #### C BCND #### [facility] [address] [place] [address] Platelets (Bld) [#/Vol] 259 10*3/uL Normal 130-400 [facility] Comment on above: Performed By: #### C BCND #### [facility] [address] [place] [address] RBC (Bld) [#/Vol] 5.33 10*6/uL Normal 4.70-6.10 [facility] Comment on above: Performed By: #### C BCND #### [facility] [address] [place] [address] WBC (Bld) [#/Vol] 6.2 10*3/uL Normal 4.8-10.8 [facility] Comment on above: Performed By: #### C BCND #### [facility] [address] [place] [address] Prothrombin Timeon 1 INR Coag (PPP) [Relative time] 1.0 {INR} Normal [facility] Comment on above: Performed By: #### P T #### [facility] [address] [place] [address] PT Coag (PPP) [Time] 13.2 s Normal 12.3-14.9 [facility] Comment on above: Performed By: #### P T #### [facility] [address] [place] [address] Vital Signs Date Time Vital Sign Value Performing Clinician Facility 09-19-2023 11:45-0500 Body height 182.88 cm Jaymie Mart Other [facility] Other 09-19-2023 11:45-0500 Body mass index (BMI) [Ratio] 37.29 kg/m2 Jaymie Mart Other [facility] Other 09-19-2023 11:45-0500 Body weight 124.74 kg Jaymie Mart Other [facility] Other 09-19-2023 11:45-0500 Diastolic blood pressure 81 mm[Hg] Jaymie Mart Other [facility] Other 09-19-2023 11:45-0500 Systolic blood pressure 121 mm[Hg] Jaymie Mart Other [facility] Other 07-26-2023 10:45-0500 Body height 182.88 cm Jaymie Mart Other [facility] Other 07-26-2023 10:45-0500 Body mass index (BMI) [Ratio] 37.24 kg/m2 Jaymie Matr Other [facility] Other 07-26-2023 10:45-0500 Body weight 124.56 kg Jaymie Mart Other [facility] Other 07-26-2023 10:45-0500 Diastolic blood pressure 85 mm[Hg] Jaymie Mart Other [facility] Other 07-26-2023 10:45-0500 Systolic blood pressure 122 mm[Hg] Jaymie Mart Other [facility] Other 06-03-2023 15:00-0400 Body height 182.88 cm Jaymie Mart Other [facility] Other 06-03-2023 15:00-0400 Body mass index (BMI) [Ratio] 37.81 kg/m2 Jaymie Mart Other [facility] Other 06-03-2023 15:00-0400 Body temperature 98 [degF] Jaymie Mart Other [facility] Other 06-03-2023 15:00-0400 Body weight 126.46 kg Jaymie Mart Other [facility] Other 06-03-2023 15:00-0400 Diastolic blood pressure 76 mm[Hg] Jaymie Mart Other [facility] Other 06-03-2023 15:00-0400 SaO2% (BldA) [Mass fraction] 98 % Jaymie Mart Other [facility] Other 06-03-2023 15:00-0400 Systolic blood pressure 130 mm[Hg] Jaymie Mart Other [facility] Other 02-11-2023 10:30-0400 Body height 182.88 cm Jaymie Mart Other [facility] Other 02-11-2023 10:30-0400 Body mass index (BMI) [Ratio] 37.16 kg/m2 Jaymie Mart Other [facility] Other 02-11-2023 10:30-0400 Body weight 124.29 kg Jaymie Mart Other [facility] Other 02-11-2023 10:30-0400 Diastolic blood pressure 85 mm[Hg] Jaymie Mart Other [facility] Other 02-11-2023 10:30-0400 Systolic blood pressure 124 mm[Hg] Jaymie Mart Other [facility] Other 11-02-2022 16:15-0400 Body height 182.88 cm Austin Ball Other [facility] Other 11-02-2022 16:15-0400 Body mass index (BMI) [Ratio] 37.05 kg/m2 Austin Ball Other [facility] Other 11-02-2022 16:15-0400 Body weight 123.92 kg Austin Ball Other [facility] Other 11-02-2022 16:15-0400 Diastolic blood pressure 86 mm[Hg] Austin Ball Other [facility] Other 11-02-2022 16:15-0400 Respiratory rate 16 /min Austin Ball Other [facility] Other 11-02-2022 16:15-0400 Systolic blood pressure 136 mm[Hg] Austin Ball Other [facility] Other 10-27-2022 11:30-0400 Body height 182.88 cm Jaymie Mart Other [facility] Other 10-27-2022 11:30-0400 Body mass index (BMI) [Ratio] 37.29 kg/m2 Jaymie Mart Other [facility] Other 10-27-2022 11:30-0400 Body weight 124.74 kg Jaymie Mart Other [facility] Other 10-27-2022 11:30-0400 Diastolic blood pressure 80 mm[Hg] Jaymie Mart Other [facility] Other 10-27-2022 11:30-0400 SaO2% (BldA) [Mass fraction] 97 % Jaymie Mart Other [facility] Other 10-27-2022 11:30-0400 Systolic blood pressure 132 mm[Hg] Jaymie Mart Other [facility] Other 02-25-2021 14:30-0400 Diastolic blood pressure 90 mm[Hg] [place] [facility] [employer] [facility] [employer] Phone: 02-25-2021 14:30-0400 Heart rate 79 /min [place] [facility] Phone: 02-25-2021 14:30-0400 Respiratory rate 16 /min [place] [facility] [employer] [facility] [employer] Phone: 02-25-2021 14:30-0400 SaO2% (BldA) [Mass fraction] 97 % [place] [facility] Phone: 02-25-2021 14:30-0400 Systolic blood pressure 148 mm[Hg] [place] [facility] [employer] [facility] [employer] Phone: 02-25-2021 10:43-0400 Body height 180.3 cm [place] [facility] Phone: 02-25-2021 10:43-0400 Body mass index (BMI) [Ratio] 36.54 kg/m2 [place] [facility] Phone: 02-25-2021 10:43-0400 Body weight 118.84 kg [place] [facility] [employer] Phone: Encounters Encounter Date Encounter Type Care Provider Facility Start: 09-19-2023 End: 09-20-2023 ambulatory Portia Clark MD [facility] Other Start: 09-19-2023 Office outpatient vi sit 15 minutes Jaymie Mart [facility] Start: 09-16-2023 End: 09-17-2023 Emergency department patient visit DO Mayela Vicente Facility:[facility] Start: 08-22-2023 End: 08-23-2023 ambulatory Portia Clark MD Facility:[facility] Start: 08-17-2023 End: 08-17-2023 ambulatory Jaymie Mart Other [facility] Other Start: 08-17-2023 Telephone encounter Jaymie Mart [facility] Start: 07-26-2023 End: 07-26-2023 ambulatory Jaymie Mart Other [facility] Other Start: 07-26-2023 Office outpatient vi sit 15 minutes Jaymie Mart [facility] Start: 07-18-2023 End: 07-18-2023 ambulatory Jaymie Mart Other [facility] Other Start: 07-18-2023 Telephone encounter Jaymie Mart [facility] Start: 06-03-2023 End: 06-03-2023 ambulatory Jaymie Barron Other [facility] Other Start: 06-03-2023 Office outpatient vi sit 15 minutes Jaymie Mart [facility] Start: 05-27-2023 End: 05-27-2023 ambulatory Jaymie Mart Other [employer] Other Start: 05-27-2023 Telephone encounter Jaymie Mart [facility] Start: 02-11-2023 End: 02-11-2023 ambulatory Jaymie Mart Other [facility] Other Start: 02-11-2023 Office outpatient vi sit 15 minutes Jaymie Mart [facility] Start: 12-10-2022 Telephone encounter Jaymie Mart [facility] Start: 12-10-2022 End: 12-11-[address] JAYMIE MART [facility] Other Start: 12-02-2022 (Televisit) Televisit Jaymie Mart Lisa [facility] Start: 12-02-2022 End: 12-02-2022 ambulatory Jaymie Mart Other [facility] Other Start: 11-29-2022 End: 11-29-2022 ambulatory Kurtis Patel Facility:[facility] Start: 11-02-2022 End: 11-02-2022 ambulatory Austin Jun Other [employer] Other Start: 11-02-2022 Office outpatient vi sit 15 minutes [facility] Start: 10-29-2022 End: 10-29-2022 ambulatory Jaymie Mart Other [facility] Other Start: 10-29-2022 Telephone encounter Jaymie Mart [facility] Start: 10-27-2022 End: 10-27-2022 ambulatory Jaymie Mart Other [facility] Other Start: 10-27-2022 Office outpatient vi sit 15 minutes Jaymie Mart [facility] Start: 09-16-2022 End: 09-17-[address] ALLYSON [...] Start: 02-25-2021 End: 02-28-2021 ambulatory JAYMIE MART [facility] Start: 02-25-2021 End: 02-27-2021 Subsequent hospital visit by physician Shun Shah MD Work Phone: [facility] CT Scan Comment on above: Arrived Lumbar radiculopathy ; Lumbar spondylosis; Bilateral low back pain with sciatica, sciatica laterality unspecified, unspecified chronicity Procedures Date Procedure Procedure Detail Performing Clinician Start: 02-25-2021 Ct lumbar spine w/contrast material Hamilton Cummings [employer] 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 Phone: Start: 02-25-2021 Injection procedure myelography/ct lumbar Hamilton Cummings 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 Phone: Plan of Treatment Date Care Activity Detail Author Start: 12-23-2022 ambulatory Ambulatory Facility:[facility] Start: 02-19-2022 Creatinine measurement Creatinine mo nitoring [facility] [employer] Phone: Start: 02-19-2022 Potassium monitoring Potassium monit oring [facility] [employer] Phone: Start: 04-08-2021 Influenza vaccination Flu vaccine (# 1) [facility] [employer] Phone: Start: 2020 Screening for malign ant neoplasm of colon Colon cancer screen colonoscopy [facility] [employer] Phone: Start: 1994 DTaP/Tdap/Td vaccine (1 - Tdap) DTaP/Tdap/Td vaccine (1 - Tdap) [facility] [employer] Phone: Start: 1990 HIV screening HIV screen [facility] Work Phone: Start: 1987 COVID-19 Vaccine (1) COVID-19 Vaccin e (1) [facility] Work Phone: Start: 1985 Lipid panel Lipid screen [facility] Work Phone: Start: 1975 Hepatitis C screening Hepatitis C sc kwaku [facility] Work Phone: Immunizations Immunization Date Immunization Notes Care Provider Mat hutchinson 08-25-2015 tetanus toxoid, reduced diphtheria toxoid, and acellular pertussis vaccine, adsorbed Jaymie Mart Other [employer] Other Payers Date Payer Category Payer Unknown [id number] 2023 Unknown 2022 Self-pay 1975 Unknown [id number] 2.16.8 [id number] 1975 Unknown [id number] 2.16.8 40.1.774195.3.579.2.182 1975 Unknown [id number] 2.16.84 0.1.505538.3.579.2.593 1975 Unknown [id number] 2.16.84 0.1.134081.3.579.2.593 1975 Unknown [id number] 2.16.84 0.1.826709.3.579.2.593 1975 Unknown [id number] 2.16.84 0.1.610967.3.579.2.593 1975 Unknown [id number] 2.16.84 0.1.872394.3.579.2.593 1975 Unknown [id number] 2.16.84 0.1.701314.3.579.2.593 1975 Unknown [id number] 2.16.84 0.1.014394.3.579.2.593 1975 Unknown [id number] 2.16.84 0.1.234368.3.579.2.593 1975 Unknown [id number] 2.16.84 0.1.559286.3.579.2.593 1975 Unknown [id number] 2.16.84 0.1.073033.3.579.2.593 1975 Unknown [id number] 2.16.84 0.1.899643.3.579.2.593 1975 Unknown [id number] 2.16.84 0.1.873776.3.579.2.593 1975 Unknown [id number] 2.16. 840.1.654588.3.579.2.196 1975 Unknown [id number] 2.16. 840.1.144942.3.579.2.196 1975 Unknown [id number] 2.16.8 40.1.461844.3.579.2.727 1959 Unknown [id number] 1. [id number] Unknown [id number] 2.16.8 40.1.434426.3.579.2.531 Social History Date Type Detail Facility Start: 02-25-2021 Tobacco smoking status [facility] Never smoker [employer] Phone: Start: 02-25-2021 Tobacco use and exposure Never used [employer] Start: 1975 Sex Assigned At Not on file [facility] [employer] Phone: Exposure to SARS-CoV-2 (event) Not sure [employer] Phone: Sex Assigned At Sex Assigned At [facility] [employer] Other Clinical Notes 04-08-2016 to 09-19-2023 Note Date & Type Note Facility 09-19-2023 Evaluation note Encounter Date Diagnosis Assessment Notes Sep, Lumbar pain (ICD-10 - M54.50) Continue meds per pain mgmt @ [facility], heat, icing area. Agreed off work through 10/08. Followup w pain mgmt as scheduled and call for appt if that needs extended. [facility] Other 01-10-2024 Evaluation note* Encounter Date Diagnosis Assessment Notes Treatment Notes Treatment Clinical Notes Aug, Primary insomnia (ICD-10 - F51.01) [facility] Other 12-19-2023 Evaluation note* Encounter Date Diagnosis [...] how his sleep issues could cause headaches [facility] Other 10-27-2023 Evaluation note* Encounter Date Diagnosis [...] verbalized understanding and agreement with treatment plan. [facility] Other 04-27-2023 Evaluation note* Encounter Date Diagnosis Assessment Notes Treatment Notes Treatment Clinical Notes Nov, Viral illness (ICD-10 - B34.9) Discussed symptom managment. his vomiting has subsided. will improve cough and dyspnea w steroids and inhaler. Note printed and faxed to his work. [employer] Other 03-28-2023 Evaluation note* Encounter Date Diagnosis [...] exercise. Keep active and continue present trreatment [facility] Other 03-22-2023 Evaluation note* Encounter Date Diagnosis Assessment Notes Treatment Notes Treatment Clinical Notes Oct, Lumbar degenerative disc disease (ICD-10 - M51.36) Discussed work responsibilities and completed letter as requested. [employer] Other 02-09-2023 NoteCONSULTATION CONSULTATION DATE: 09/16/2022 HISTORY [...] otherwise indicated. Patient agrees with this plan.[facility] 09-16-2022 NoteCONSULTATION PROCEDURE DATE: 09/16/2022 PREOPERATIVE DIAGNOSIS: [...] will be followed up in the clinic.[facility] [id number] NoteCONSULTATION CONSULTATION DATE: 06/24/2022 This is a [...] otherwise indicated. The patient agrees with this.[facility] [id number] NoteCONSULTATION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
--- NOTE | 2023-10-10 09:17 | XR_ITS ---
The [address] [address] Patient Name: SUSHILA YATES MRN: [id number] date: 1975 Sex: M Assigned Patient Location: RAD Current Patient Location: RAD Accession/Order Number: [id number] Exam Date: 10/10/2023 09:35 Report Date: 10/10/2023 10:00 At the request of: ROBERT ROSAS Procedure: XR foreign body eye EXAMINATION: XR foreign body eye HISTORY: pre mri COMPARISON: No relevant comparison available. FINDINGS: ORBITS: A metallic plate and screws identified along the inferior margin. Multiple metallic wires project over the right maxillary sinus. Left craniotomy with metallic plates and screws OTHER: Negative. XR/XR foreign body eye IMPRESSION: Multiple metallic plates and screws as detailed above. Composition should be determined before MRI Electronically authenticated by: JANEL MORA Date: 10/10/2023 10:00
== END 2023-10-10 09:03 | disposition home or self-care (01) ==
LOC: RAD 09:03
PROVIDERS: PCP Family Medicine; Visit Provider Orthopaedic Surgery
DX: R10.2 Pelvic and perineal pain (principal); Z96.7 Presence of other bone and tendon implants; M54.50 Low back pain, unspecified
CPT/HCPCS: 70030

== ENCOUNTER 2023-10-24 09:20 | Outpatient (OUT) | payer BC, SELFPAY ==
--- NOTE | 2023-10-24 | XR_ITS ---
The [place] [address] Patient Name: SUSHILA YATES MRN: [id number] date: 1975 Sex: M Assigned Patient Location: Current Patient Location: Accession/Order Number: [id number] Exam Date: 10/24/2023 09:22 Report Date: 10/24/2023 15:16 At the request of: ROBERT ROSAS Procedure: XR lumbar spine min 4V EXAMINATION: XR lumbar spine min 4V HISTORY: LUMBAR SPINE PAIN COMPARISON: No relevant comparison available. FINDINGS: BONES: Normal alignment with no acute fracture or spondylolisthesis. Mild facet osteoarthropathy DISC SPACES: Moderate narrowing L5-S1 with endplate sclerosis PARASPINOUS: Negative. No paraspinous abnormality is seen. OTHER: No transient spondylolisthesis with flexion or extension XR/XR lumbar spine min 4V IMPRESSION: Mild degenerative changes No dynamic instability Electronically authenticated by: JANEL MORA Date: 10/24/2023 15:16
--- NOTE | 2023-10-24 | XR_ITS ---
The [address] [address] Patient Name: SUSHILA YATES MRN: [id number] date: 1975 Sex: M Assigned Patient Location: Current Patient Location: Accession/Order Number: [id number] Exam Date: 10/24/2023 09:22 Report Date: 10/24/2023 13:39 At the request of: ROBERT ROSAS Procedure: XR pelvis 1-2V PROCEDURE: XR pelvis 1-2V COMPARISON: None. 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 No evidence of acute fracture. SOFT TISSUES:Negative. No visible soft tissue swelling. EFFUSION:None visible. OTHER: Negative. XR/XR pelvis 1-2V IMPRESSION: Diastases of the pubic symphysis Electronically authenticated by: JANEL MORA Date: 10/24/2023 13:39
--- OUTSIDE RECORDS SUMMARY | 2023-10-24 09:39 | XMS_ITS | CCD ---
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 Calcium [Mass/Vol] 9.2 mg/dL Normal 8.5-10.1 [facility] Comment on above: Performed By: #### B CATHY, TSH #### [facility] [address] [place] [address] Dr. Fazal Shearer Chloride [Moles/Vol] 105 mmol/L Normal 98-107 [facility] Comment on above: Performed By: #### B CATHY, TSH #### [facility] [address] [place] [address] Dr. Fazal Shearer CO2 [Moles/Vol] 31.9 mmol/L Normal 21.0-32.0 [facility] Comment on above: Performed By: #### B CATHY, TSH #### [facility] [address] [place] [address] Dr. Fazal Shearer Creatinine [Mass/Vol] 1.04 mg/dL Normal 0.70-1.30 [facility] Comment on above: Performed By: #### B CATHY, TSH #### [facility] [address] [place] [address] Dr. Fazal Shearer EGFR-AF NIGERIAN >60 Normal >=60 [facility] Comment on above: Performed By: #### B CATHY, TSH #### [facility] [address] [address] [address] Fazal Shearer EGFR-NON AF NIGERIAN >60 Normal >=60 [facility] Comment on above: Performed By: #### B MP, TSH #### [facility] [address] [address] [address] Fazal Shearer Glucose [Mass/Vol] 102 mg/dL Normal 74-106 [facility] Comment on above: Performed By: #### B MP, TSH #### [facility] [address] [address] [address] Fazal Shearer Potassium [Moles/Vol] 5.2 mmol/L Critically high 3.5-5.1 [facility] Comment on above: Performed By: #### B CATHY, TSH #### [facility] [address] [place] [address] Dr. Fazal Shearer Sodium [Moles/Vol] 141 mmol/L Normal 136-145 [facility] Comment on above: Performed By: #### B CATHY, TSH #### [facility] [address] [place] [address] Dr. Fazal Shearer Urea nitrogen [Mass/Vol] 15.0 mg/dL Normal 7.0-18.0 [facility] Comment on above: Performed By: #### B CATHY, TSH #### [facility] [address] [place] [address] Dr. Fazal Shearer Urea nitrogen/Creatinine [Mass ratio] 14.4 mg/mg Normal [facility] Comment on above: Performed By: #### B CATHY, TSH #### [facility] [address] [place] [address] Dr. Fazal Shearer TSHon 07-06-2022 TSH 1.300 uIU/mL Normal 0.358-3.[address] [facility] Comment on above: Performed By: #### B MP, TSH #### [facility] [address] [place] [address] Dr. Fazal Shearer CBC AUTO DIFFon 03-31-2022 BASO # 0.1 103/ul Normal 0.0-0.1 [facility] Comment on above: Performed By: #### B CATHY, TSH #### [facility] [address] [place] [address] Dr. Fazal Shearer Basophils/100 WBC (Bld) 0.9 % Normal 0.2-2.0 [facility] Comment on above: Performed By: #### B MP, TSH #### [facility] [address] [place] [address] Dr. Fazal Shearer EO # 0.2 103/ul Normal 0.0-0.7 [facility] Comment on above: Performed By: #### B MP, TSH #### [facility] [address] [place] [address] Dr. Fazal Shearer Eosinophils/100 WBC (Bld) 3.2 % Normal 0.9-7.0 [facility] Comment on above: Performed By: #### B MP, TSH #### [facility] [address] [place] [address] Dr. Fazal Shearer Erythrocyte distribution width (RBC) [Ratio] 12.2 % Normal 11.0-15.0 [facility] Comment on above: Performed By: #### B MP, TSH #### [facility] [address] [place] [address] Dr. Fazal Shearer Hematocrit (Bld) [Volume fraction] 41.3 % Critically low 42.0-54.0 [facility] Comment on above: Performed By: #### B MP, TSH #### [facility] [address] [place] [address] Dr. Fazal Shearer Hemoglobin (Bld) [Mass/Vol] 14.1 g/dL Normal 14.0-18.0 [facility] Comment on above: Performed By: #### B MP, TSH #### [facility] [address] [place] [address] Dr. Fazal Shearer IG # 0.05 10e3/ul Critically high 0.00-0.03 [facility] Comment on above: Performed By: #### B MP, TSH #### [facility] [address] [place] [address] Dr. Fazal Shearer IG % 0.9 % Critically high 0.0-0.5 [facility] Comment on above: Performed By: #### B MP, TSH #### [facility] [address] [address] [address] Fazal Shearer LYMPH # 2.0 103/ul Normal 1.2-3.8 [facility] Comment on above: Performed By: #### B MP, TSH #### [facility] [address] [address] [address] Fazal Shearer Lymphocytes/100 WBC (Bld) 33.5 % Normal 20.5-60.0 [facility] Comment on above: Performed By: #### B MP, TSH #### [facility] [address] [place] [address] Dr. Fazal Shearer MANUAL DIFF REQ NO Normal [facility] Comment on above: Performed By: #### B MP, TSH #### [facility] [address] [place] [address] Dr. Fazal Shearer MCH (RBC) [Entitic mass] 29.3 pg Normal 25.9-34.0 [facility] Comment on above: Performed By: #### B MP, TSH #### [facility] [address] [place] [address] Dr. Fazal Shearer MCHC (RBC) [Mass/Vol] 34.1 g/dL Normal 29.9-35.2 [facility] Comment on above: Performed By: #### B MP, TSH #### [facility] [address] [place] [address] Dr. Fazal Shearer MCV (RBC) [Entitic vol] 85.9 fL Normal 80.0-94.0 [facility] Comment on above: Performed By: #### B MP, TSH #### [facility] [address] [place] [address] Dr. Fazal Shearer MONO # 0.5 103/ul Normal 0.3-0.8 [facility] Comment on above: Performed By: #### B MP, TSH #### [facility] [address] [place] [address] Dr. Fazal Shearer Monocytes/100 WBC (Bld) 8.4 % Normal 1.7-12.0 [facility] Comment on above: Performed By: #### B MP, TSH #### [facility] [address] [place] [address] Dr. Fazal Shearer NEUT # 3.1 103/ul Normal 1.4-6.5 [facility] Comment on above: Performed By: #### B MP, TSH #### [facility] [address] [place] [address] Dr. Fazal Shearer Neutrophils/100 WBC (Bld) 53.1 % Normal 43.0-75.0 [facility] Comment on above: Performed By: #### B MP, TSH #### [facility] [address] [place] [address] Dr. Fazal Shearer Platelet mean volume (Bld) [Entitic vol] 9.3 fL Critically low 9.5-13.5 [facility] Comment on above: Performed By: #### B MP, TSH #### [facility] [address] [place] [address] Dr. Fazal Shearer PLT 248 103/ul Normal 150-450 [facility] Comment on above: Performed By: #### B MP, TSH #### [facility] [address] [place] [address] Dr. Fazal Shearer RBC 4.81 106/ul Normal 4.70-6.10 [facility] Comment on above: Performed By: #### B MP, TSH #### [facility] [address] [place] [address] Dr. Fazal Shearer WBC 5.9 103/ul Normal 4.0-11.0 [facility] Comment on above: Performed By: #### B MP, TSH #### [facility] [address] [place] [address] Dr. Fazal Shearer ECHOCARDIO M/2D COMPLETEon 0 03-31-2022 ECHOCARDIO M/2D COMPLETE Patient: SUSHILA YATES Exam Date: 03/31/2022 : 1975 Gender:M Ordering : DR JAYMIE MART M.D. Admission #: [id number] Family : Order #: [id number] CLICK HERE TO VIEW EXAM ECHOCARDIOGRAM REPORT [...] Mei M.D. on 03/31/2022 at 19:40 Normal [facility] PROF CHEM 8 (BAS METB)on Anion gap [Moles/Vol] 7.8 mmol/L Normal [facility] Comment on above: Performed By: #### B MP, TSH #### [facility] [address] [place] [address] Dr. Fazal Shearer Calcium [Mass/Vol] 8.4 mg/dL Critically low 8.5-10.1 [facility] Comment on above: Performed By: #### B MP, TSH #### [facility] [address] [address] [address] Fazal Shearer Chloride [Moles/Vol] 104 mmol/L Normal 98-107 [facility] Comment on above: Performed By: #### B MP, TSH #### [facility] [address] [address] [address] Fazal Shearer CO2 [Moles/Vol] 30.3 mmol/L Normal 21.0-32.0 [facility] Comment on above: Performed By: #### B MP, TSH #### [facility] [address] [address] [address] Fazal Shearer Creatinine [Mass/Vol] 0.99 mg/dL Normal 0.70-1.30 [facility] Comment on above: Performed By: #### B MP, TSH #### [facility] [address] [address] [address] Fazal Shearer EGFR-AF NIGERIAN >60 Normal >=60 [facility] Comment on above: Performed By: #### B MP, TSH #### [facility] [address] [address] [address] Fazal Shearer EGFR-NON AF NIGERIAN >60 Normal >=60 [facility] Comment on above: Performed By: #### B MP, TSH #### [facility] [address] [address] [address] Fazal Shearer Glucose [Mass/Vol] 103 mg/dL Normal 74-106 [facility] Comment on above: Performed By: #### B MP, TSH #### [facility] [address] [address] [address] Fazal Shearer Potassium [Moles/Vol] 4.1 mmol/L Normal 3.5-5.1 [facility] Comment on above: Performed By: #### B MP, TSH #### [facility] [address] [address] [address] Fazal Shearer Sodium [Moles/Vol] 138 mmol/L Normal 136-145 [facility] Comment on above: Performed By: #### B MP, TSH #### [facility] [address] [place], [place] [address] Dr. Fazal Shearer Urea nitrogen [Mass/Vol] 17.0 mg/dL Normal 7.0-18.0 [facility] Comment on above: Performed By: #### B MP, TSH #### [facility] [address] [place], [place] [address] Dr. Fazal Shearer Urea nitrogen/Creatinine [Mass ratio] 17.2 mg/mg Normal [facility] Comment on above: Performed By: #### B MP, TSH #### [facility] [address] [place], [place] [address] Dr. Fazal Shearer TSHon 03-31-2022 TSH 0.867 uIU/mL Normal 0.358-3.740 [facility] Comment on above: Performed By: #### B MP, TSH #### [facility] [address] [place], [place] [address] LUMBAR SPINE W [...] mm posterior listhesis of L5 on S1. [employer] Work Phone: [place], [facility] Incoming Radiant Results From [employer] - 02/26/2021 10:26 AM EDT IMPRESSION: L5/S1 [...] mm posterior listhesis of L5 on S1. [employer] Work Phone: IR LUMBAR PUNCTURE FOR MYELO [...] Please see CT dictation for full details. [employer] Work Phone: [place], [facility] Incoming Radiant Results From [employer] - 02/26/2021 11:13 AM EDT IMPRESSION: 1. [...] Please see CT dictation for full details. [employer] Phone: No Panel InformationOrdered By: Hamilton [employer] on 02-26-2021 [employer] Phone: [employer] Phone: CT LUMBAR SPINE W CONTRASTon 02-25-2021 [...] Shun Shah MD 02/26/21 Final result Normal [facility] IR LUMBAR PUNCTURE FOR MYELO GRAM CTon [...] Shun Shah MD 02/26/21 Final result Normal [facility] Basic Metabolic Panelon 07- Anion gap [Moles/Vol] 10 mmol/L Normal 9-15 [facility] Comment on above: Performed By: #### B MP #### [facility] [address] [place] [address] Calcium [Mass/Vol] 9.3 mg/dL Normal 8.5-9.9 [facility] Comment on above: Performed By: #### B MP #### [facility] [address] [place] [address] Chloride [Moles/Vol] 102 mmol/L Normal 95-107 [facility] Comment on above: Performed By: #### B MP #### [facility] [address] [place] [address] CO2 [Moles/Vol] 27 mmol/L Normal 20-31 [facility] Comment on above: Performed By: #### B MP #### [facility] [address] [place] [address] Creatinine [Mass/Vol] 0.83 mg/dL Normal 0.70-1.20 [facility] Comment on above: Performed By: #### B MP #### [facility] [address] [place] [address] GFR >60.0 Normal >60 [facility] Comment on above: Result Comment: >60 mL/min/1.73m2 EGFR, calc. for ages 18 and older using the MDRD formula (not corrected for weight), is valid for stable renal function. Performed By: #### B MP #### [facility] [address] [place] [address] GFR/1.73 sq M.predicted among blacks MDRD (S/P/Bld) [Vol rate/Area] mL/min/{1.73_m2} Normal >60 [facility] Comment on above: Result Comment: >60 mL/min/1.73m2 EGFR, calc. for ages 18 and older using the MDRD formula (not corrected for weight), is valid for stable renal function. Performed By: #### B MP #### [facility] [address] [place] [address] Glucose [Mass/Vol] 96 mg/dL Normal 70-99 [facility] Comment on above: Performed By: #### B MP #### [facility] [address] [place] [address] Potassium [Moles/Vol] 3.8 mmol/L Normal 3.4-4.9 [facility] Comment on above: Performed By: #### B MP #### [facility] [address] [place] [address] Sodium [Moles/Vol] 139 mmol/L Normal 135-144 [facility] Comment on above: Performed By: #### B MP #### [facility] [address] [place] [address] Urea nitrogen [Mass/Vol] 13 mg/dL Normal 6-20 [facility] Comment on above: Performed By: #### B MP #### [facility] [address] [place] [address] CBC With Platelet No Differe ntialon 02-19-2021 Erythrocyte distribution width (RBC) [Ratio] 12.9 % Normal 11.5-14.5 [facility] Comment on above: Performed By: #### C BCND #### [facility] [address] [place] [address] Hematocrit (Bld) [Volume fraction] 45.5 % Normal 42.0-52.0 [facility] Comment on above: Performed By: #### C BCND #### [facility] [address] [place] [address] Hemoglobin (Bld) [Mass/Vol] 15.3 g/dL Normal 14.0-18.0 [facility] Comment on above: Performed By: #### C BCND #### [facility] [address] [place] [address] MCH (RBC) [Entitic mass] 28.7 pg Normal 27.0-31.3 [facility] Comment on above: Performed By: #### C BCND #### [facility] [address] [place] [address] MCHC 33.7 % Normal 33.0-37.0 [facility] Comment on above: Performed By: #### C BCND #### [facility] [address] [place] [address] MCV (RBC) [Entitic vol] 85.4 fL Normal 80.0-100.0 [facility] Comment on above: Performed By: #### C BCND #### [facility] [address] [place] [address] Platelets (Bld) [#/Vol] 259 10*3/uL Normal 130-400 [facility] Comment on above: Performed By: #### C BCND #### [facility] [address] [place] [address] RBC (Bld) [#/Vol] 5.33 10*6/uL Normal 4.70-6.10 [facility] Comment on above: Performed By: #### C BCND #### [facility] [address] [place] [address] WBC (Bld) [#/Vol] 6.2 10*3/uL Normal 4.8-10.8 [facility] Comment on above: Performed By: #### C BCND #### [facility] [address] [place] [address] Prothrombin Timeon 1 INR Coag (PPP) [Relative time] 1.0 {INR} Normal [facility] Comment on above: Performed By: #### P T #### [facility] [address] [place] [address] PT Coag (PPP) [Time] 13.2 s Normal 12.3-14.9 [facility] Comment on above: Performed By: #### P T #### [facility] [address] [place] [address] Vital Signs Date Time Vital Sign Value Performing Clinician Facility 09-19-2023 11:45-0500 Body height 182.88 cm Jaymie Mart Other [facility] 09-19-2023 11:45-0500 Body mass index (BMI) [Ratio] 37.29 kg/m2 Jaymie Mart Other [facility] Other 09-19-2023 11:45-0500 Body weight 124.74 kg Jaymie Mart Other [facility] Other 09-19-2023 11:45-0500 Diastolic blood pressure 81 mm[Hg] Jaymie Mart Other [facility] Other 09-19-2023 11:45-0500 Systolic blood pressure 121 mm[Hg] Jaymie Mart Other [facility] Other 07-26-2023 10:45-0500 Body height 182.88 cm Jaymie Mart Other [facility] Other 07-26-2023 10:45-0500 Body mass index (BMI) [Ratio] 37.24 kg/m2 Jaymie Mart Other [facility] Other 07-26-2023 10:45-0500 Body weight 124.56 kg Jaymie Mart Other [facility] Other 07-26-2023 10:45-0500 Diastolic blood pressure 85 mm[Hg] Jaymie Mart Other [facility] Other 07-26-2023 10:45-0500 Systolic blood pressure 122 mm[Hg] Jaymie Mart Other [facility] Other 06-03-2023 15:00-0400 Body height 182.88 cm Jaymie Mart Other [facility] Other 06-03-2023 15:00-0400 Body mass index (BMI) [Ratio] 37.81 kg/m2 Jaymie Mart Other [facility] Other 06-03-2023 15:00-0400 Body temperature 98 [degF] Jaymie Mart Other [facility] Other 06-03-2023 15:00-0400 Body weight 126.46 kg Jaymie Mart Other [facility] Other 06-03-2023 15:00-0400 Diastolic blood pressure 76 mm[Hg] Jaymie Mart Other [facility] Other 06-03-2023 15:00-0400 SaO2% (BldA) [Mass fraction] 98 % Jaymie Mart Other [facility] Other 06-03-2023 15:00-0400 Systolic blood pressure 130 mm[Hg] Jaymie Mart Other [facility] Other 02-11-2023 10:30-0400 Body height 182.88 cm Jaymie Mart Other [facility] Other 02-11-2023 10:30-0400 Body mass index (BMI) [Ratio] 37.16 kg/m2 Jaymie Mart Other [facility] Other 02-11-2023 10:30-0400 Body weight 124.29 kg Jaymie Mart Other [facility] Other 02-11-2023 10:30-0400 Diastolic blood pressure 85 mm[Hg] Jaymie Mart Other [facility] Other 02-11-2023 10:30-0400 Systolic blood pressure 124 mm[Hg] Jaymie Mart Other [facility] Other 11-02-2022 16:15-0400 Body height 182.88 cm Austin Ball Other [facility] Other 11-02-2022 16:15-0400 Body mass index (BMI) [Ratio] 37.05 kg/m2 Austin Ball Other [facility] Other 11-02-2022 16:15-0400 Body weight 123.92 kg Austin Ball Other [facility] Other 11-02-2022 16:15-0400 Diastolic blood pressure 86 mm[Hg] Austin Ball Other [facility] Other 11-02-2022 16:15-0400 Respiratory rate 16 /min Austin Ball Other [facility] Other 11-02-2022 16:15-0400 Systolic blood pressure 136 mm[Hg] Austin Ball Other [facility] Other 10-27-2022 11:30-0400 Body height 182.88 cm Jaymie Mart Other [facility] Other 10-27-2022 11:30-0400 Body mass index (BMI) [Ratio] 37.29 kg/m2 Jaymie Mart Other [facility] Other 10-27-2022 11:30-0400 Body weight 124.74 kg Jaymie Mart Other [facility] Other 10-27-2022 11:30-0400 Diastolic blood pressure 80 mm[Hg] Jaymie Mart Other [facility] Other 10-27-2022 11:30-0400 SaO2% (BldA) [Mass fraction] 97 % Jaymie Mart Other [facility] Other 10-27-2022 11:30-0400 Systolic blood pressure 132 mm[Hg] Jaymie Mart Other [facility] Other 02-25-2021 14:30-0400 Diastolic blood pressure 90 mm[Hg] [place] [facility] Phone: 02-25-2021 14:30-0400 Heart rate 79 /min [place] [facility] Phone: 02-25-2021 14:30-0400 Respiratory rate 16 /min [place] [facility] Phone: 02-25-2021 14:30-0400 SaO2% (BldA) [Mass fraction] 97 % [place] [facility] Phone: 02-25-2021 14:30-0400 Systolic blood pressure 148 mm[Hg] [place] [facility] Phone: 02-25-2021 10:43-0400 Body height 180.3 cm [place] [facility] Phone: 02-25-2021 10:43-0400 Body mass index (BMI) [Ratio] 36.54 kg/m2 [place] [facility] Phone: 02-25-2021 10:43-0400 Body weight 118.84 kg [place] [facility] Phone: Encounters Encounter Date Encounter Type Care Provider Facility Start: 09-19-2023 End: 09-20-2023 ambulatory Portia Clark MD [facility] Other Start: 09-19-2023 Office outpatient vi sit 15 minutes Jaymie Mart [facility] Start: 09-16-2023 End: 09-17-2023 Emergency department patient visit DO Mayela Vicente Facility:[facility] Start: 08-22-2023 End: 08-23-2023 ambulatory Portia Clark MD Facility:[facility] [place] [facility] Start: 08-17-2023 End: 08-17-2023 ambulatory Jaymie Mart Other [facility] Other Start: 08-17-2023 Telephone encounter Jaymie Mart [facility] Start: 07-26-2023 End: 07-26-2023 ambulatory Jyamie Mart Other [facility] Other Start: 07-26-2023 Office outpatient vi sit 15 minutes Jaymie Mart [facility] Start: 07-18-2023 End: 07-18-2023 ambulatory Jaymie Mart Other [facility] Other Start: 07-18-2023 Telephone encounter Jaymie Mart [facility] Start: 06-03-2023 End: 06-03-2023 ambulatory Jaymie Barron Other [facility] Other Start: 06-03-2023 Office outpatient vi sit 15 minutes Jaymie Mart [facility] Start: 05-27-2023 End: 05-27-2023 ambulatory Jaymie Mart Other [facility] Other Start: 05-27-2023 Telephone encounter Jaymie Mart [facility] Start: 02-11-2023 End: 02-11-2023 ambulatory Jaymie Mart Other [facility] Other Start: 02-11-2023 Office outpatient vi sit 15 minutes Jaymie Mart [facility] Start: 12-10-2022 Telephone encounter Jaymie Mart [facility] Start: 12-10-2022 End: 12-11-[address] JAYMIE MART [facility] Other Start: 12-02-2022 (Televisit) Televisit Jaymie Mart [facility] Start: 12-02-2022 End: 12-02-2022 ambulatory Jaymie Mart Other [facility] Other Start: 11-29-2022 End: 11-29-2022 ambulatory Kurtis Patel Facility:[facility] Start: 11-02-2022 End: 11-02-2022 ambulatory Austin Jun Other [facility] Other Start: 11-02-2022 Office outpatient vi sit 15 minutes [facility] Start: 10-29-2022 End: 10-29-2022 ambulatory Jaymie Mart Other [facility] Other Start: 10-29-2022 Telephone encounter Jaymie Mart [facility] Start: 10-27-2022 End: 10-27-2022 ambulatory Jaymie Mart Other [facility] Other Start: 10-27-2022 Office outpatient vi sit 15 minutes Jaymie Mart [facility] Start: 09-16-2022 End: 09-17-[address] [...] Start: 02-25-2021 End: 02-28-[address] 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 - [employer] Work Phone: Plan of Treatment Date Care Activity Detail Author Start: 12-23-2022 ambulatory Ambulatory Facility:[facility] Start: 02-19-2022 Creatinine measurement Creatinine mo nitoring [facility] Phone: Start: 02-19-2022 Potassium monitoring Potassium monit oring [facility] Phone: Start: 04-08-2021 Influenza vaccination Flu vaccine (# 1) [facility] Phone: Start: 2020 Screening for malign ant neoplasm of colon Colon cancer screen colonoscopy [facility] Phone: Start: 1994 DTaP/Tdap/Td vaccine (1 - Tdap) DTaP/Tdap/Td vaccine (1 - Tdap) [facility] Phone: Start: 1990 HIV screening HIV screen [facility] Work Phone: Start: 1987 COVID-19 Vaccine (1) COVID-19 Vaccin e (1) [facility] Work Phone: Start: 1985 Lipid panel Lipid screen [facility] Work Phone: Start: 1975 Hepatitis C screening Hepatitis C sc kwaku [facility] Work Phone: Immunizations Immunization Date Immunization Notes Care Provider Mat hutchinson 08-25-2015 tetanus toxoid, reduced diphtheria toxoid, and acellular pertussis vaccine, adsorbed Jaymie Mart Other [facility] Other Payers Date Payer Category Payer Unknown [id number] 2023 Unknown 2022 Self-pay 1975 Unknown [id number] 2.16.8 [id number] 1975 Unknown [id number] 2.16.8 40.1.279542.3.579.2.182 1975 Unknown [id number] 2.16.84 0.1.294900.3.579.2.593 1975 Unknown [id number] 2.16.84 0.1.817577.3.579.2.593 1975 Unknown [id number] 2.16.84 0.1.131768.3.579.2.593 1975 Unknown [id number] 2.16.84 0.1.227785.3.579.2.593 1975 Unknown [id number] 2.16.84 0.1.241889.3.579.2.593 1975 Unknown [id number] 2.16.84 0.1.176681.3.579.2.593 1975 Unknown [id number] 2.16.84 0.1.687943.3.579.2.593 1975 Unknown [id number] 2.16.84 0.1.392848.3.579.2.593 1975 Unknown [id number] 2.16.84 0.1.070499.3.579.2.593 1975 Unknown [id number] 2.16.84 0.1.089606.3.579.2.593 1975 Unknown [id number] 2.16.84 0.1.687484.3.579.2.593 1975 Unknown [id number] 2.16.84 0.1.713642.3.579.2.593 1975 Unknown [id number] 2.16. 840.1.447998.3.579.2.196 1975 Unknown [id number] 2.16. 840.1.904685.3.579.2.196 1975 Unknown [id number] 2.16.8 40.1.605453.3.579.2.727 1959 Unknown [id number] 1. [id number] Unknown [id number] 2.16.8 40.1.896095.3.579.2.531 Social History Date Type Detail Facility Start: 02-25-2021 Tobacco smoking status [facility] Never smoker [facility] Phone: Start: 02-25-2021 Tobacco use and exposure Never used [facility] Start: 1975 Sex Assigned At Not on file [facility] Phone: Exposure to SARS-CoV-2 (event) Not sure [facility] Phone: Sex Assigned At Sex Assigned At [facility] Other Clinical Notes 04-08-2016 to 09-19-2023 Note Date & Type Note Facility 09-19-2023 Evaluation note Encounter Date Diagnosis Assessment Notes Sep, Lumbar pain (ICD-10 - M54.50) Continue meds per pain mgmt @ [facility], heat, icing area. Agreed off work through 10/08. Followup w pain mgmt as scheduled and call for appt if that needs extended. [facility] Other 01-10-2024 Evaluation note* Encounter Date Diagnosis Assessment Notes Treatment Notes Treatment Clinical Notes Aug, Primary insomnia (ICD-10 - F51.01) [facility] Other 12-19-2023 Evaluation note* Encounter Date Diagnosis [...] how his sleep issues could cause headaches [facility] Other 10-27-2023 Evaluation note* Encounter Date Diagnosis [...] verbalized understanding and agreement with treatment plan. [facility] Other 04-27-2023 Evaluation note* Encounter Date Diagnosis Assessment Notes Treatment Notes Treatment Clinical Notes Nov, Viral illness (ICD-10 - B34.9) Discussed symptom managment. his vomiting has subsided. will improve cough and dyspnea w steroids and inhaler. Note printed and faxed to his work. [facility] Other 03-28-2023 Evaluation note* Encounter Date Diagnosis [...] exercise. Keep active and continue present trreatment [facility] Other 03-22-2023 Evaluation note* Encounter Date Diagnosis Assessment Notes Treatment Notes Treatment Clinical Notes Oct, Lumbar degenerative disc disease (ICD-10 - M51.36) Discussed work responsibilities and completed letter as requested. [facility] Other 02-09-2023 NoteCONSULTATION CONSULTATION DATE: 09/16/2022 HISTORY [...] otherwise indicated. Patient agrees with this plan.[facility] 09-16-2022 NoteCONSULTATION PROCEDURE DATE: 09/16/2022 PREOPERATIVE DIAGNOSIS: [...] will be followed up in the clinic.[id number] NoteCONSULTATION CONSULTATION DATE: 06/24/2022 This is a [...] otherwise indicated. The patient agrees with this.[id number] NoteCONSULTATION CONSULTATION DATE: HISTORY OF PRESENT ILLNESS: [...] 10 mg q.h.s., diclofenac 50 mg b.i.d., [place] 5/325 b.i.d., multivitamin. Patient's REVIEW OF SYSTEMS [...] is complaining of slight constipation with his [place]; therefore, I recommended MiraLax to be taken once to twice daily to effect. Vitamin importance was discussed as well.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
== END 2023-10-24 09:21 | disposition home or self-care (01) ==
LOC: EC 09:20
PROVIDERS: PCP Family Medicine; Visit Provider Orthopaedic Surgery
DX: M54.50 Low back pain, unspecified (principal); R10.2 Pelvic and perineal pain; S33.4XXA Traumatic rupture of symphysis pubis, initial encounter
CPT/HCPCS: 72110; 72170

== ENCOUNTER 2023-10-27 08:00 | Outpatient (OUT) | payer BC, SELFPAY ==
--- OUTSIDE RECORDS SUMMARY | 2023-10-27 08:04 | XMS_ITS | CCD ---
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 Performed By: #### B MP, TSH #### [facility] [address] [address] [address] Fazal Shearer IG % 0.9 % Critically high 0.0-0.5 [facility] Comment on above: Performed By: #### B MP, TSH #### [facility] [address] [place] [address] Dr. Fazal Shearer LYMPH # 2.3 103/ul Normal 1.2-3.8 [facility] Comment on above: Performed By: #### B MP, TSH #### [facility] [address] [address] [address] Fazal Shearer Lymphocytes/100 WBC (Bld) 30.2 % Normal 20.5-60.0 [facility] Comment on above: Performed By: #### B MP, TSH #### [facility] [address] [address] [address] Fazal Shearer MANUAL DIFF REQ NO Normal [facility] Comment on above: Performed By: #### B MP, TSH #### [facility] [address] [address] [address] Fazal Shearer MCH (RBC) [Entitic mass] 28.8 pg Normal 25.9-34.0 [facility] Comment on above: Performed By: #### B MP, TSH #### [facility] [address] [place] [address] Dr. Fazal Shearer MCHC (RBC) [Mass/Vol] 34.1 g/dL Normal 29.9-35.2 [facility] Comment on above: Performed By: #### B MP, TSH #### [facility] [address] [address] [address] Fazal Shearer MCV (RBC) [Entitic vol] 84.6 fL Normal 80.0-94.[address] [facility] Comment on above: Performed By: #### B MP, TSH #### [facility] [address] [place] [address] Dr. Fazal Shearer MONO # 0.6 103/ul Normal 0.3-0.8 [facility] Comment on above: Performed By: #### B MP, TSH #### [facility] [address] [place] [address] Dr. Fazal Shearer Monocytes/100 WBC (Bld) 7.5 % Normal 1.7-12.[address] [facility] Comment on above: Performed By: #### B MP, TSH #### [facility] [address] [place] [address] Dr. Fazal Shearer NEUT # 4.4 103/ul Normal 1.4-6.5 [facility] Comment on above: Performed By: #### B MP, TSH #### [facility] [address] [place] [address] Dr. Fazal Shearer Neutrophils/100 WBC (Bld) 58.5 % Normal 43.0-75.0 [facility] Comment on above: Performed By: #### B MP, TSH #### [facility] [address] [place] [address] Dr. Fazal Shearer Platelet mean volume (Bld) [Entitic vol] 9.1 fL Critically low 9.5-13.5 [facility] Comment on above: Performed By: #### B MP, TSH #### [facility] [address] [place] [address] Dr. Fazal Shearer PLT 245 103/ul Normal 150-450 [facility] Comment on above: Performed By: #### B MP, TSH #### [facility] [address] [place] [address] Dr. Fazal Shearer RBC 5.34 106/ul Normal 4.70-6.10 [facility] Comment on above: Performed By: #### B MP, TSH #### [facility] [address] [address] [address] Fazal Shearer WBC 7.5 103/ul Normal 4.0-11.0 [facility] Comment on above: Performed By: #### B MP, TSH #### [facility] [address] [place] [address] Dr. Fazal Shearer PROF CHEM 8 (BAS METB)on Anion gap [Moles/Vol] 9.3 mmol/L Normal [facility] Comment on above: Performed By: #### B CATHY, TSH #### [facility] [address] [place] [address] Dr. Fazal Shearer Calcium [Mass/Vol] 9.2 mg/dL Normal 8.5-10.1 [facility] Comment on above: Performed By: #### B CATHY, TSH #### [facility] [address] [place] [address] Dr. Fazal Shearer Chloride [Moles/Vol] 105 mmol/L Normal 98-107 [facility] Comment on above: Performed By: #### B CATHY, TSH #### [facility] [address] [place] [address] Dr. Fazal Shearer CO2 [Moles/Vol] 31.9 mmol/L Normal 21.0-32.0 [facility] Comment on above: Performed By: #### B CATHY, TSH #### [facility] [address] [place] [address] Dr. Fazal Shearer Creatinine [Mass/Vol] 1.04 mg/dL Normal 0.70-1.30 [facility] Comment on above: Performed By: #### B CATHY, TSH #### [facility] [address] [place] [address] Dr. Fazal Shearer EGFR-AF UZBEK >60 Normal >=60 [facility] Comment on above: Performed By: #### B CATHY, TSH #### [facility] [address] [place] [address] Dr. Fazal Shearer EGFR-NON AF UZBEK >60 Normal >=60 [facility] Comment on above: Performed By: #### B MP, TSH #### [facility] [address] [place] [address] Dr. Fazal Shearer Glucose [Mass/Vol] 102 mg/dL Normal 74-106 [facility] Comment on above: Performed By: #### B MP, TSH #### [facility] [address] [place] [address] Dr. Fazal Shearer Potassium [Moles/Vol] 5.2 mmol/L Critically high 3.5-5.1 [facility] Comment on above: Performed By: #### B MP, TSH #### [facility] [address] [place] [address] Dr. Fazal Shearer Sodium [Moles/Vol] 141 mmol/L Normal 136-145 [facility] Comment on above: Performed By: #### B MP, TSH #### [facility] [address] [place] [address] Dr. Fazal Shearer Urea nitrogen [Mass/Vol] 15.0 mg/dL Normal 7.0-18.0 [facility] Comment on above: Performed By: #### B MP, TSH #### [facility] [address] [place] [address] Dr. Fazal Shearer Urea nitrogen/Creatinine [Mass ratio] 14.4 mg/mg Normal [facility] Comment on above: Performed By: #### B MP, TSH #### [facility] [address] [place] [address] Dr. Fazal Shearer TSHon 07-06-2022 TSH 1.300 uIU/mL Normal 0.358-3.740 [facility] Comment on above: Performed By: #### B MP, TSH #### [facility] [address] [place] [address] Dr. Fazal Shearer CBC AUTO DIFFon 03-31-2022 BASO # 0.1 103/ul Normal 0.0-0.1 [facility] Comment on above: Performed By: #### B MP, TSH #### [facility] [address] [place] [address] Dr. Fazal Shearer Basophils/100 WBC (Bld) 0.9 % Normal 0.2-2.[address] [facility] Comment on above: Performed By: #### B MP, TSH #### [facility] [address] [place] [address] Dr. Fazal Shearer EO # 0.2 103/ul Normal 0.0-0.7 [facility] Comment on above: Performed By: #### B MP, TSH #### [facility] [address] [place] [address] Dr. Fazal Shearer Eosinophils/100 WBC (Bld) 3.2 % Normal 0.9-7.0 [facility] Comment on above: Performed By: #### B CATHY, TSH #### [facility] [address] [place] [address] Dr. Fazal Shearer Erythrocyte distribution width (RBC) [Ratio] 12.2 % Normal 11.0-15.0 [facility] Comment on above: Performed By: #### B CATHY, TSH #### [facility] [address] [place] [address] Dr. Fazal Shearer Hematocrit (Bld) [Volume fraction] 41.3 % Critically low 42.0-54.0 [facility] Comment on above: Performed By: #### B CATHY, TSH #### [facility] [address] [place] [address] Dr. Fazal Shearer Hemoglobin (Bld) [Mass/Vol] 14.1 g/dL Normal 14.0-18.0 [facility] Comment on above: Performed By: #### B MP, TSH #### [facility] [address] [place] [address] Dr. Fazal Shearer IG # 0.05 10e3/ul Critically high 0.00-0.03 [facility] Comment on above: Performed By: #### B CATHY, TSH #### [facility] [address] [place] [address] Dr. Fazal Shearer IG % 0.9 % Critically high 0.0-0.5 [facility] Comment on above: Performed By: #### B CATHY, TSH #### [facility] [address] [address] [address] Fazal Shearer LYMPH # 2.0 103/ul Normal 1.2-3.8 [facility] Comment on above: Performed By: #### B MP, TSH #### [facility] [address] [address] [address] Fazal Shearer Lymphocytes/100 WBC (Bld) 33.5 % Normal 20.5-60.0 [facility] Comment on above: Performed By: #### B MP, TSH #### [facility] [address] [address] [address] Fazal Shearer MANUAL DIFF REQ NO Normal [facility] Comment on above: Performed By: #### B MP, TSH #### [facility] [address] [place] [address] Dr. Fazal Shearer MCH (RBC) [Entitic mass] 29.3 pg Normal 25.9-34.0 [facility] Comment on above: Performed By: #### B MP, TSH #### [facility] [address] [place] [address] Dr. Fazal Shearer MCHC (RBC) [Mass/Vol] 34.1 g/dL Normal 29.9-35.2 [facility] Comment on above: Performed By: #### B MP, TSH #### [facility] [address] [place] [address] Dr. Fazal Shearer MCV (RBC) [Entitic vol] 85.9 fL Normal 80.0-94.[address] [facility] Comment on above: Performed By: #### B MP, TSH #### [facility] [address] [place] [address] Dr. Fazal Shearer MONO # 0.5 103/ul Normal 0.3-0.8 [facility] Comment on above: Performed By: #### B MP, TSH #### [facility] [address] [place] [address] Dr. Fazal Shearer Monocytes/100 WBC (Bld) 8.4 % Normal 1.7-12.[address] [facility] Comment on above: Performed By: #### B MP, TSH #### [facility] [address] [address] [address] Fazal Shearer NEUT # 3.1 103/ul Normal 1.4-6.5 [facility] Comment on above: Performed By: #### B MP, TSH #### [facility] [address] [address] [address] Fazal Shearer Neutrophils/100 WBC (Bld) 53.1 % Normal 43.0-75.0 [facility] Comment on above: Performed By: #### B MP, TSH #### [facility] [address] [address] [address] Fazal Shearer Platelet mean volume (Bld) [Entitic vol] 9.3 fL Critically low 9.5-13.5 [facility] Comment on above: Performed By: #### B MP, TSH #### [facility] [address] [address] [address] Fazal Shearer PLT 248 103/ul Normal 150-450 [facility] Comment on above: Performed By: #### B MP, TSH #### [facility] [address] [address] [address] Fazal Shearer RBC 4.81 106/ul Normal 4.70-6.10 [facility] Comment on above: Performed By: #### B MP, TSH #### [facility] [address] [address] [address] Fazal Shearer WBC 5.9 103/ul Normal 4.0-11.0 [facility] Comment on above: Performed By: #### B MP, TSH #### [facility] [address] [address] [address] Fazal Shearer ECHOCARDIO M/2D COMPLETEon 0 03-31-2022 ECHOCARDIO M/2D COMPLETE Patient: SUSHILA YATES Exam Date: 03/31/2022 : 1975 Gender:M Ordering : DR JAYMIE MART M.D. Admission #: [id number] Family : Order #: [id number] CLICK HERE TO VIEW EXAM ECHOCARDIOGRAM REPORT [...] Mei M.D. on 03/31/2022 at 19:40 Normal [facility] PROF CHEM 8 (BAS METB)on Anion gap [Moles/Vol] 7.8 mmol/L Normal [facility] Comment on above: Performed By: #### B CATHY, TSH #### [facility] [address] [place], [place] [address] Dr. Fazal Shearer Calcium [Mass/Vol] 8.4 mg/dL Critically low 8.5-10.1 [facility] Comment on above: Performed By: #### B CATHY, TSH #### [facility] [address] [address] [address] Fazal Shearer Chloride [Moles/Vol] 104 mmol/L Normal 98-107 [facility] Comment on above: Performed By: #### B MP, TSH #### [facility] [address] [place] [address] Dr. Fazal Shearer CO2 [Moles/Vol] 30.3 mmol/L Normal 21.0-32.0 [facility] Comment on above: Performed By: #### B MP, TSH #### [facility] [address] [place] [address] Dr. Fazal Shearer Creatinine [Mass/Vol] 0.99 mg/dL Normal 0.70-1.30 [facility] Comment on above: Performed By: #### B CATHY, TSH #### [facility] [address] [place] [address] Dr. Fazal Shearer EGFR-AF UZBEK >60 Normal >=60 [facility] Comment on above: Performed By: #### B CATHY, TSH #### [facility] [address] [place] [address] Dr. Fazal Shearer EGFR-NON AF UZBEK >60 Normal >=60 [facility] Comment on above: Performed By: #### B CATHY, TSH #### [facility] [address] [place] [address] Dr. Fazal Shearer Glucose [Mass/Vol] 103 mg/dL Normal 74-106 [facility] Comment on above: Performed By: #### B CATHY, TSH #### [facility] [address] [place] [address] Dr. Fazal Shearer Potassium [Moles/Vol] 4.1 mmol/L Normal 3.5-5.1 [facility] Comment on above: Performed By: #### B MP, TSH #### [facility] [address] [place] [address] Dr. Fazal Shearer Sodium [Moles/Vol] 138 mmol/L Normal 136-145 [facility] Comment on above: Performed By: #### B CATHY, TSH #### [facility] [address] [place] [address] Dr. Fazal Shearer Urea nitrogen [Mass/Vol] 17.0 mg/dL Normal 7.0-18.0 [facility] Comment on above: Performed By: #### B MP, TSH #### [facility] [address] [place], [place] [address] Dr. Fazal Shearer Urea nitrogen/Creatinine [Mass ratio] 17.2 mg/mg Normal [facility] Comment on above: Performed By: #### B MP, TSH #### [facility] [address] [place], [place] [address] Dr. Fazal Shearer TSHon 03-31-2022 TSH 0.867 uIU/mL Normal 0.358-3.740 [facility] Comment on above: Performed By: #### B MP, TSH #### [facility] [address] [place], [place] [address] LUMBAR SPINE W [...] mm posterior listhesis of L5 on S1. [employer] Work Phone: [place], [facility] Incoming Radiant Results From [employer] - 02/26/2021 10:26 AM EDT IMPRESSION: L5/S1 [...] mm posterior listhesis of L5 on S1. [employer] Work Phone: IR LUMBAR PUNCTURE FOR MYELO [...] Please see CT dictation for full details. [employer] Work Phone: [place], [facility] Incoming Radiant Results From [employer] - 02/26/2021 11:13 AM EDT IMPRESSION: 1. [...] Please see CT dictation for full details. [employer] Phone: No Panel InformationOrdered By: Hamilton Cummings on 02-26-2021 [employer] Phone: [employer] Phone: CT LUMBAR SPINE W CONTRASTon 02-25-2021 [...] Shun Shah MD 02/26/21 Final result Normal [facility] IR LUMBAR PUNCTURE FOR MYELO [...] Shun Shah MD 02/26/21 Final result Normal [facility] Basic Metabolic Panelon 07- Anion gap [Moles/Vol] 10 mmol/L Normal 9-15 [facility] Comment on above: Performed By: #### B MP #### [facility] [address] [place] [address] Calcium [Mass/Vol] 9.3 mg/dL Normal 8.5-9.9 [facility] Comment on above: Performed By: #### B MP #### [facility] [address] [place] [address] Chloride [Moles/Vol] 102 mmol/L Normal 95-107 [facility] Comment on above: Performed By: #### B MP #### [facility] [address] [place] [address] CO2 [Moles/Vol] 27 mmol/L Normal 20-31 [facility] Comment on above: Performed By: #### B MP #### [facility] [address] [place] [address] Creatinine [Mass/Vol] 0.83 mg/dL Normal 0.70-1.20 [facility] Comment on above: Performed By: #### B MP #### [facility] [address] [place] [address] GFR >60.0 Normal >60 [facility] Comment on above: Result Comment: >60 mL/min/1.73m2 EGFR, calc. for ages 18 and older using the MDRD formula (not corrected for weight), is valid for stable renal function. Performed By: #### B MP #### [facility] [address] [place] [address] GFR/1.73 sq M.predicted among blacks MDRD (S/P/Bld) [Vol rate/Area] mL/min/{1.73_m2} Normal >60 [facility] Comment on above: Result Comment: >60 mL/min/1.73m2 EGFR, calc. for ages 18 and older using the MDRD formula (not corrected for weight), is valid for stable renal function. Performed By: #### B MP #### [facility] [address] [place] [address] Glucose [Mass/Vol] 96 mg/dL Normal 70-99 [facility] Comment on above: Performed By: #### B MP #### [facility] [address] [place] [address] Potassium [Moles/Vol] 3.8 mmol/L Normal 3.4-4.9 [facility] Comment on above: Performed By: #### B MP #### [facility] [address] [place] [address] Sodium [Moles/Vol] 139 mmol/L Normal 135-144 [facility] Comment on above: Performed By: #### B MP #### [facility] [address] [place] [address] Urea nitrogen [Mass/Vol] 13 mg/dL Normal 6-20 [facility] Comment on above: Performed By: #### B MP #### [facility] [address] [place] [address] CBC With Platelet No Differe ntialon 02-19-2021 Erythrocyte distribution width (RBC) [Ratio] 12.9 % Normal 11.5-14.5 [facility] Comment on above: Performed By: #### C BCND #### [facility] [address] [place] [address] Hematocrit (Bld) [Volume fraction] 45.5 % Normal 42.0-52.0 [facility] Comment on above: Performed By: #### C BCND #### [facility] [address] [place] [address] Hemoglobin (Bld) [Mass/Vol] 15.3 g/dL Normal 14.0-18.0 [facility] Comment on above: Performed By: #### C BCND #### [facility] [address] [place] [address] MCH (RBC) [Entitic mass] 28.7 pg Normal 27.0-31.3 [facility] Comment on above: Performed By: #### C BCND #### [facility] [address] [place] [address] MCHC 33.7 % Normal 33.0-37.0 [facility] Comment on above: Performed By: #### C BCND #### [facility] [address] [place] [address] MCV (RBC) [Entitic vol] 85.4 fL Normal 80.0-100.0 [facility] Comment on above: Performed By: #### C BCND #### [facility] [address] [place] [address] Platelets (Bld) [#/Vol] 259 10*3/uL Normal 130-400 [facility] Comment on above: Performed By: #### C BCND #### [facility] [address] [place] [address] RBC (Bld) [#/Vol] 5.33 10*6/uL Normal 4.70-6.10 [facility] Comment on above: Performed By: #### C BCND #### [facility] [address] [place] [address] WBC (Bld) [#/Vol] 6.2 10*3/uL Normal 4.8-10.8 [facility] Comment on above: Performed By: #### C BCND #### [facility] [address] [place] [address] Prothrombin Timeon 1 INR Coag (PPP) [Relative time] 1.0 {INR} Normal [facility] Comment on above: Performed By: #### P T #### [facility] [address] [place] [address] PT Coag (PPP) [Time] 13.2 s Normal 12.3-14.9 [facility] Comment on above: Performed By: #### P T #### [facility] [address] [place] [address] Vital Signs Date Time Vital Sign Value Performing Clinician Facility 09-19-2023 11:45-0500 Body height 182.88 cm Jaymie Mart Other [facility] Other 09-19-2023 11:45-0500 Body mass index (BMI) [Ratio] 37.29 kg/m2 Jaymie Mart Other [facility] Other 09-19-2023 11:45-0500 Body weight 124.74 kg Jaymie Mart Other [facility] Other 09-19-2023 11:45-0500 Diastolic blood pressure 81 mm[Hg] Jaymie Mart Other [facility] Other 09-19-2023 11:45-0500 Systolic blood pressure 121 mm[Hg] Jaymie Mart Other [facility] Other 07-26-2023 10:45-0500 Body height 182.88 cm Jaymie Mart Other [facility] Other 07-26-2023 10:45-0500 Body mass index (BMI) [Ratio] 37.24 kg/m2 Jaymie Mart Other [facility] Other 07-26-2023 10:45-0500 Body weight 124.56 kg Jaymie Mart Other [facility] Other 07-26-2023 10:45-0500 Diastolic blood pressure 85 mm[Hg] Jaymie Mart Other [facility] Other 07-26-2023 10:45-0500 Systolic blood pressure 122 mm[Hg] Jaymie Mart Other [facility] Other 06-03-2023 15:00-0400 Body height 182.88 cm Jaymie Mart Other [facility] Other 06-03-2023 15:00-0400 Body mass index (BMI) [Ratio] 37.81 kg/m2 Jaymie Mart Other [facility] Other 06-03-2023 15:00-0400 Body temperature 98 [degF] Jaymie Mart Other [facility] Other 06-03-2023 15:00-0400 Body weight 126.46 kg Jaymie Mart Other [facility] Other 06-03-2023 15:00-0400 Diastolic blood pressure 76 mm[Hg] Jaymie Mart Other [facility] Other 06-03-2023 15:00-0400 SaO2% (BldA) [Mass fraction] 98 % Jaymie Mart Other [facility] Other 06-03-2023 15:00-0400 Systolic blood pressure 130 mm[Hg] Jaymie Mart Other [facility] Other 02-11-2023 10:30-0400 Body height 182.88 cm Jaymie Mart Other [facility] Other 02-11-2023 10:30-0400 Body mass index (BMI) [Ratio] 37.16 kg/m2 Jaymie Mart Other [facility] Other 02-11-2023 10:30-0400 Body weight 124.29 kg Jaymie Mart Other [facility] Other 02-11-2023 10:30-0400 Diastolic blood pressure 85 mm[Hg] Jaymie Mart Other [facility] Other 02-11-2023 10:30-0400 Systolic blood pressure 124 mm[Hg] Jaymie Mart Other [facility] Other 11-02-2022 16:15-0400 Body height 182.88 cm Austin Ball Other [facility] Other 11-02-2022 16:15-0400 Body mass index (BMI) [Ratio] 37.05 kg/m2 Austin Ball Other [facility] Other 11-02-2022 16:15-0400 Body weight 123.92 kg Austin Ball Other [facility] Other 11-02-2022 16:15-0400 Diastolic blood pressure 86 mm[Hg] Austin Ball Other [facility] Other 11-02-2022 16:15-0400 Respiratory rate 16 /min Austin Ball Other [facility] Other 11-02-2022 16:15-0400 Systolic blood pressure 136 mm[Hg] Austin Ball Other [facility] Other 10-27-2022 11:30-0400 Body height 182.88 cm Jaymie Mart Other [facility] Other 10-27-2022 11:30-0400 Body mass index (BMI) [Ratio] 37.29 kg/m2 Jaymie Mart Other [facility] Other 10-27-2022 11:30-0400 Body weight 124.74 kg Jaymie Mart Other [facility] Other 10-27-2022 11:30-0400 Diastolic blood pressure 80 mm[Hg] Jaymie Mart Other [facility] Other 10-27-2022 11:30-0400 SaO2% (BldA) [Mass fraction] 97 % Jaymie Mart Other [facility] Other 10-27-2022 11:30-0400 Systolic blood pressure 132 mm[Hg] Jaymie Mart Other [facility] Other 02-25-2021 14:30-0400 Diastolic blood pressure 90 mm[Hg] [facility] Phone: 02-25-2021 14:30-0400 Heart rate 79 /min [facility] Phone: 02-25-2021 14:30-0400 Respiratory rate 16 /min [facility] Phone: 02-25-2021 14:30-0400 SaO2% (BldA) [Mass fraction] 97 % [facility] Phone: 02-25-2021 14:30-0400 Systolic blood pressure 148 mm[Hg] [facility] Phone: 02-25-2021 10:43-0400 Body height 180.3 cm [facility] Phone: 02-25-2021 10:43-0400 Body mass index (BMI) [Ratio] 36.54 kg/m2 [facility] Phone: 02-25-2021 10:43-0400 Body weight 118.84 kg [facility] Phone: Encounters Encounter Date Encounter Type Care Provider Facility Start: 09-19-2023 End: 09-20-2023 ambulatory Portia Clark MD [facility] Other Start: 09-19-2023 Office outpatient vi sit 15 minutes Jaymie Mart [facility] Start: 09-16-2023 End: 09-17-2023 Emergency department patient visit DO Mayela Vicente [place] Start: 08-22-2023 End: 08-23-2023 ambulatory Portia Clark MD Facility:[facility] Start: 08-17-2023 End: 08-17-2023 ambulatory Jaymie Mart Other [facility] Other Start: 08-17-2023 Telephone encounter Jaymie Mart [facility] Start: 07-26-2023 End: 07-26-2023 ambulatory Jaymie Mart Other [facility] Other Start: 07-26-2023 Office outpatient vi sit 15 minutes Jaymie Mart [facility] Start: 07-18-2023 End: 07-18-2023 ambulatory Jaymie Mart Other [facility] Other Start: 07-18-2023 Telephone encounter Jaymie Mart [facility] Start: 06-03-2023 End: 06-03-2023 ambulatory Jaymie Mart Other [facility] Other Start: 06-03-2023 Office outpatient vi sit 15 minutes Jaymie Mart [facility] Start: 05-27-2023 End: 05-27-2023 ambulatory Jaymie Mart Other [facility] Other Start: 05-27-2023 Telephone encounter Jaymie Mart [facility] Start: 02-11-2023 End: 02-11-2023 ambulatory Jaymie Mart Other [facility] Other Start: 02-11-2023 Office outpatient vi sit 15 minutes Jaymie Mart [facility] Start: 12-10-2022 Telephone encounter Jaymie Mart [facility] Start: 12-10-2022 End: 12-11-[address] JAYMIE MART [facility] Other Start: 12-02-2022 (Televisit) Televisit Jaymie Mart [facility] Start: 12-02-2022 End: 12-02-2022 ambulatory Jaymie Mart Other [facility] Other Start: 11-29-2022 End: 11-29-2022 ambulatory Kurtis Patel Facility:[facility] Start: 11-02-2022 End: 11-02-2022 ambulatory Austin Barahona Other [facility] Other Start: 11-02-2022 Office outpatient vi sit 15 minutes [facility] Start: 10-29-2022 End: 10-29-2022 ambulatory Jaymie Mart Other [facility] Other Start: 10-29-2022 Telephone encounter Jaymie Mart [facility] Start: 10-27-2022 End: 10-27-2022 ambulatory Jaymie Mart Other [facility] Other Start: 10-27-2022 Office outpatient vi sit 15 minutes Jaymie Mart [facility] Start: 09-16-2022 End: 09-17-[address] [...] Start: 02-25-2021 End: 02-28-2021 ambulatory JAYMIE MART [facility] Start: 02-25-2021 End: 02-27-2021 Subsequent hospital visit by physician Shun Shah MD Work Phone: [facility] CT Scan Comment on above: Arrived Lumbar radiculopathy ; Lumbar spondylosis; Bilateral low back pain with sciatica, sciatica laterality unspecified, unspecified chronicity Procedures Date Procedure Procedure Detail Performing Clinician Start: 02-25-2021 Ct lumbar spine w/contrast material Hamilton Cummings CULTURAL ANTHROPOLOGY PROFESSOR - TOUR SALES REPRESENTATIVE Work Phone: Start: 02-25-2021 Injection procedure myelography/ct lumbar Hamilton Cummings CULTURAL ANTHROPOLOGY PROFESSOR - TOUR SALES REPRESENTATIVE Work Phone: Plan of Treatment Date Care Activity Detail Author Start: 12-23-2022 ambulatory Ambulatory Facility:[facility] 1 Start: 02-19-2022 Creatinine measurement Creatinine mo nitoring [facility] Phone: Start: 02-19-2022 Potassium monitoring Potassium monit oring [facility] Phone: Start: 04-08-2021 Influenza vaccination Flu vaccine (# 1) [facility] Phone: Start: 2020 Screening for malign ant neoplasm of colon Colon cancer screen colonoscopy [facility] Phone: Start: 1994 DTaP/Tdap/Td vaccine (1 - Tdap) DTaP/Tdap/Td vaccine (1 - Tdap) [facility] Phone: Start: 1990 HIV screening HIV screen [facility] Work Phone: Start: 1987 COVID-19 Vaccine (1) COVID-19 Vaccin e (1) [facility] Phone: Start: 01-05-1986 Lipid panel Lipid screen [facility] Work Phone: Start: 1975 Hepatitis C screening Hepatitis C [facility] Work Phone: Immunizations Immunization Date Immunization Notes Care Provider Mat hutchinson 08-25-2015 tetanus toxoid, reduced diphtheria toxoid, and acellular pertussis vaccine, adsorbed Jaymie Mart Other [facility] Other Payers Date Payer Category Payer Unknown [id number] 2023 Unknown 2022 Self-pay 1975 Unknown [id number] 2.16.8 [id number] 1975 Unknown [id number] 2.16.8 [id number] 1975 Unknown [id number] 2.16.84 0.1.653126.3.579.2.593 1975 Unknown [id number] 2.16.84 0.1.225427.3.579.2.593 1975 Unknown [id number] 2.16.84 0.1.258094.3.579.2.593 1975 Unknown [id number] 2.16.84 0.1.599970.3.579.2.593 1975 Unknown [id number] 2.16.84 0.1.026953.3.579.2.593 1975 Unknown [id number] 2.16.84 0.1.778254.3.579.2.593 1975 Unknown [id number] 2.16.84 0.1.133856.3.579.2.593 1975 Unknown [id number] 2.16.84 0.1.998735.3.579.2.593 1975 Unknown [id number] 2.16.84 0.1.660222.3.579.2.593 1975 Unknown [id number] 2.16.84 0.1.702661.3.579.2.593 1975 Unknown [id number] 2.16.84 0.1.279290.3.579.2.593 1975 Unknown [id number] 2.16.84 0.1.183463.3.579.2.593 1975 Unknown [id number] 2.16. 840.1.263082.3.579.2.196 1975 Unknown [id number] 2.16. 840.1.880489.3.579.2.196 1975 Unknown [id number] 2.16.8 40.1.693412.3.579.2.727 1959 Unknown [id number] 1.

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
--- NOTE | 2023-10-27 08:45 | PM.CN ---
Consult Note: HPI Data of Consult Requesting Physician: Cheryl Arango NP Primary Care Provider: Jaymie Haas MD Consult Narrative cc:: CC: Cheryl Arango NP [facility] Medical History Subdural hematoma ?S06.5XAA - Traumatic subdural hemorrhage with loss of consciousness status unknown, initial encounter (ICD-10) Osteoarthritis ?M19.90 - Unspecified osteoarthritis, unspecified site (ICD-10) Asthma ?J45.909 - Unspecified asthma, uncomplicated (ICD-10) HTN (hypertension) ?I10 - Essential (primary) hypertension (ICD-10) Meds Home Medications and Allergies Home Medications ?Medication ?Instructions ?Recorded ?Confirmed ?Type albuterol sulfate 90 mcg/actuation 2 inh inhalation Q3H PRN shortness 03/22/23 03/22/23 History aerosol inhaler of breath or wheezing dexamethasone 6 mg tablet 6 mg PO DAILY 03/22/23 03/22/23 History diclofenac sodium 50 mg 50 mg PO BID 03/22/23 03/22/23 History tablet,delayed release fluticasone propionate 110 2 inh inhalation BID 03/22/23 03/22/23 History mcg/actuation HFA aerosol inhaler lisinopril 20 mg tablet 20 mg PO DAILY 03/22/23 03/22/23 History metoprolol tartrate 25 mg tablet 25 mg PO DAILY 03/22/23 03/22/23 History ondansetron HCl 8 mg tablet 8 mg PO TID 03/22/23 03/22/23 History oxycodone-acetaminophen 5 mg-325 1 tab PO DAILY 03/22/23 03/22/23 History mg tablet (Endocet) simvastatin 20 mg tablet 20 mg PO DAILY 03/22/23 03/22/23 History sumatriptan succinate 50 mg tablet See Rx Instructions PO .COMPLEX 03/22/23 03/22/23 History tizanidine 4 mg capsule 4 mg PO TID PRN muscle spasticity 03/22/23 03/22/23 History oxycodone-acetaminophen 5 mg-325 1 tab PO DAILY PRN pain #30 tabs 08/22/23 Rx mg tablet (Percocet) oxycodone-acetaminophen 5 mg-325 1 tab PO Q8H PRN pain #7 tabs 08/22/23 Rx mg tablet (Percocet) oxycodone-acetaminophen 5 mg-325 1 tab PO DAILY PRN pain #30 tabs 09/16/23 Rx mg tablet (Percocet) oxycodone-acetaminophen 5 mg-325 1 tab PO DAILY PRN pain #30 tabs 09/19/23 Rx mg tablet (Percocet) gabapentin 300 mg capsule 300 mg PO QID #120 caps 10/10/23 Rx oxycodone-acetaminophen 5 mg-325 1 tab PO TID PRN pain #90 tabs 10/10/23 Rx mg tablet (Percocet) Allergies Allergy/AdvReac Type Severity Reaction Status Date / Time nubain Allergy Unknown Uncoded 03/22/23 15:33 Assessment and Plan Assessment and Plan (1) Myofascial pain dysfunction syndrome: (2) Lumbar spondylosis: (3) Pelvic fracture: (4) Chronic prescription opiate use: Assessment and Plan: I feel these medications are improving the patient's quality of life and allow them to tolerate activities of daily living as well as participate in recreational activity.? The patient does not report intolerable side effects. The patient is NOT opioid naive and non-pharmacologic and non-opioid treatment has failed to significantly relieve the patient's pain and improve functionality. The patient has a diagnosis that is related to a somatic or visceral pain etiology. ? ?? I reviewed with the patient the potential risks and side effects with the use of? opioid medications including but not limited to respiratory depression,? sedation, and even . I verified the patient has access to naloxone should? these effects occur. I advised the patient to avoid the use of any other? sedation substances including alcohol, THC, and benzodiazepines while? taking opioid medications due to the risk of compounding side effects and? detrimental outcomes. I reviewed the TELEPHONE DIRECTORY DISTRIBUTOR DRIVER, pain treatment agreement, urine? drug screen, and opioid start talking forms. The patient was advised to let? their family know they had Naloxone in case they would need to administer? the medication.? ?? A drug screen was completed within the last year, and no aberrancies were noted regarding their use of controlled substances. The patient understands they are subject to the terms and conditions of the pain contract that they have signed. ? ?? I have checked an [place] report on this patient today and there are no aberrancies noted in the prescribing history.? (5) Chronic pain syndrome: Plan update UDS today start gabapentin 300mg HS continue current medications, tolerating well without side effects, finding functional improvement continue f/u with orthopedics f/u 3 months, sooner if needed
== END 2023-10-27 08:01 | disposition home or self-care (01) ==
LOC: PM 08:01
PROVIDERS: PCP Family Medicine; Visit Provider Nurse Practitioner
DX: M79.18 Myalgia, other site (principal); M47.816 Spondylosis without myelopathy or radiculopathy, lumbar region; S32.599A Other specified fracture of unspecified pubis, initial encounter for closed fracture; Z79.891 Long term (current) use of opiate analgesic; G89.4 Chronic pain syndrome
CPT/HCPCS: G0463

== ENCOUNTER 2024-01-25 08:53 | Outpatient (OUT) | payer BC, SELFPAY ==
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
--- OUTSIDE RECORDS SUMMARY | 2024-01-25 09:03 | XMS_ITS | CCD ---
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 Name Role Phone Chantal Mart MD Primary Care Provider [phone] HAMILTON ELDER Referring Unavailable CHANTAL MART Primary Care Unavailable CHANTAL MART Primary Care Unavailable HAMILTON ELDER Referring Unavailable Chantal Mart Unavailable Austni Barahona Unavailable Kurtis Patel Admitting UnavailKurtis Maldonado Attending UnavailChantal Vincent Primary Care Unavailable PANTOJA ., DR ALLYSON Tellez Attending Unavailable PANTOJA ., DR ALLYSON Tellez Admitting Unavailable MA ., HANNA Consulting Unavailable MART, DR CHANTAL Gonzalez Primary Care Unavailable MART, DR CHANTAL Gonzalez Primary Care Unavailable LAKSHMIPATHY ., SANDY Admitting Ginger vailable LAKSHMIPATHJosee ., SANDY Attending Ginger vailable PANTOJA ., DR ALLYSON Tellez Admitting Unavailable PANTOJA ., DR ALLYSON Tellez Consulting Unavailable PANTOJA ., DR ALLYSON Tellez Attending Unavailable MART, DR CHANTAL Gonzalez Primary Care Unavailable PANTOJA ., DR ALLYSON Tellez Admitting Unavailable PANTOJA ., DR ALLYSON Tellez Attending Unavailable MA ., HANNA Consulting Unavailable BARRON, DR CHANTAL Gonzalez Primary Care Unavailable PANTOJA ., DR ALLYSON Tellez Admitting Unavailable PANTOJA ., DR ALLYSON Tellez Consulting Unavailable PANTOJA ., DR ALLYSON Tellez Attending Unavailable MART, DR CHANTAL Gonzalez Primary Care Unavailable MA ., HANNA Attending Unavailable MA ., HANNA Admitting Unavailable BARRON, DR CHANTAL Gonzalez Primary Care Unavailable DR ROBERT RAI Consulting Unavailable MA ., HANNA Consulting Unavailable BARRON, DR CHANTAL Gonzalez Consulting Unavailable BARRON, DR CHANTAL Gonzalez Attending Unavailable MART, DR CHNATAL Gonzalez Admitting Unavailable MART, DR CHANTAL Gonzalez Primary Care Unavailable MART, DR CHANTAL Gonzalez Primary Care Unavailable BARRON, DR CHANTAL Gonzalez Consulting Unavailable BARRON, DR CHANTAL Gonzalez Attending Unavailable BARRON, DR CHANTAL Gonzalez Admitting Unavailable NEFCY, ALFONZO Consulting Unavailable BARRON, DR CHANTAL Gonzalez Primary Care Unavailable MART, DR CHANTAL Gonzalez Consulting Unavailable BARRON, DR CHANTAL Gonzalez Attending Unavailable BARRON, DR CHANTAL Gonzalez Admitting Unavailable PANTOJA ., DR ALLYSON Tellez Attending Unavailable PANTOJA ., DR ALLYSON Tellez Admitting Unavailable MA ., HANNA Consulting Unavailable BARRON, DR CHANTAL Gonzalez Primary Care Unavailable PANTOJA ., DR ALLYSON Tellez Attending Unavailable PANTOJA ., DR ALLYSON Tellez Admitting Unavailable MA ., HANNA Consulting Unavailable MART, DR CHANTAL Gonzalez Primary Care Unavailable MART, DR CHANTAL Gonzalez Primary Care Unavailable PANTOJA ., DR ALLYSON Tellez Attending Unavailable PANTOJA ., DR ALLYSON Tellez Admitting Unavailable MA ., HANNA Consulting Unavailable Amber ARENAS, Portia Garcia Attending Unavailable Amber ARENAS, Portia Garcia Attending Unavailable Unavailable Primary Care Provider UnavailMayela yS Attending Unavailable Chantal Mart MD Primary Care Provider NAPADAM CORTEZ Attending Unavailable ADAM NAVARRO K Attending Unavailable CHANTAL MART Primary Care Unavailable SHANICEORA ADAM K Referring Unavailable CHANTAL MART Primary Care Unavailable NAPORA ADAM K Admitting Unavailable NAPORA, ADAM K Attending Unavailable CHANTAL MART Primary Care Unavailable NAPORA, ADAM K Referring Unavailable Allergies Allergy Classification Reported Allergen(s) Allergy Type Date of Onset Reaction(s) Facility Nalbuphine (2 sources) Nalbuphine Drug Allergy 7 [facility] Opioid Agonists (2 sources) traMADol Drug Allergy 1 Nausea And Vomiting [facility] (15 sources) Nalbuphine; Translations: [Nubain] Drug Allergy 7 BP dropped [facility] Repository (10 sources) traMADol; Translations: [TRAMADOL] Drug Allergy 6 Nausea And Vomiting [employer] Other (6 sources) Nubain *ANALGESICS - OPIOID* Propensity to adverse reactions Unknown [employer] Other (3 sources) Allergies Reconciled Propensity to adverse reactions Unknown [employer] Other (3 sources) patient allergy list reviewed by nurse or physicia Propensity to adverse reactions 9 Comment:Done [employer] Other (7 sources) Nalbuphine; Translations: [NALBUPHINE] Drug Allergy 7 [facility] (1 source) No Known Medication Allergies; Translations: [No Known Medication Allergies] Propensity to adverse reactions (disorder) [facility] Repository Medications Current Medications Medication Drug Class(es) Dates Sig (Normalized) Sig (Original) acetaminophen 325 mg oral tablet (4 sources) Start: 12-14-2023 take 2 tablets by mouth every six hours for pain acetaminophen (TylenoL) 325 mg tablet Indications: Pelvic pain Take 2 tablets (650 mg) by mouth every 6 hours if needed for mild pain (1 - 3) for up to 30 doses. 30 tablet 12/14/2023 Active Start: 12-08-2023 take 1 tablet by olive th every four hours as needed 650 mg, oral, Every 4 hours PRN, pain mild (1-3), first line, Starting on Tue12/08/23 at 1809, If ordered PRN for pain, nurse is permitted to administer this medication for higher pain scores based on patient preference? Yes acetaminophen 325 mg / oxyCODONE hydrochloride 5 mg oral tablet (6 sources) Opioid Agonist End: 12-21-2023 take 1 tablet by mouth three times daily as needed oxyCODONE-acetaminophen (Percocet) 5-325 mg tablet Take 1 tablet by mouth 3 times a day as needed. 12/21/2023 Discontinued (Stop Taking at Discharge) take 1 tablet by olive th every six hours oxyCODONE-Acetaminophen 5-325 MG 1 table t as needed Orally every 6 hrs Active [id number] 200 actuat albuterol 0.09 mg/actuat metered dose inhaler (20 sources) beta2-Adrenergic Agonist Start: 12-09-2023 take 2 puff(s) by inhalation every six hours as needed for wheezing 2 puff, inhalation, Every 6 hours PRN, wheezing, Starting on Tue12/09/23 at 1116, Shake well before use. Albuterol Sulfat e (2.5 MG/3ML) 0.083% 3 [...] every 4 hrs for 30 days Active aspirin 81 mg delayed release oral tablet (5 sources) Platelet Aggregation Inhibitor, Nonsteroidal Anti-inflammatory Drug Start: 12-10-2023 End: 01-25-2024 take 1 tablet by mouth twice daily aspirin 81 mg EC tablet Indications: Pelvic pain Take 1 tablet (81 mg) by mouth 2 times a day. 84 tablet 12/14/2023 01/25/2024 Active Start: 12-08-2023 End: 12-10-2023 take 81 mg by mouth twice daily 81 mg, oral, 2 times d aily, First dose on Tue12/08/23 at 2100 azithromycin 250 mg oral tablet (3 sources) Macrolide Antimicrobial Start: 06-03-2023 Azithromycin 250 MG as directed Orally 2 tabs po today, then 1 tab daily x 4 more days for May, Active Start: 12-10-2022 Azithromycin 2 50 MG as directed Orally 2 tabs po today, then 1 tab daily x 4 more days for 5 December, Active benzocaine 15 mg / menthol 3.6 mg oral lozenge (1 source) Standardized Chemical Allergen Start: 12-09-2023 1 lozenge, Mouth/Throat, Every 2 hour PRN, sore throat, Starting on Tue12/09/23 at 0739 bisacodyl 10 mg rectal suppository (1 source) Stimulant Laxative Start: 12-10-2023 take 10 mg rectal route every twenty-four hours as needed 10 mg, rectal, Daily PRN, constipation, first line, Starting on Tue12/10/23 at 0723 calcium carbonate 500 mg chewable tablet (1 source) Start: 12-10-2023 take 1000 mg by mouth four times daily as needed for gastroesophageal reflux disease 1,000 mg, oral, 4 times daily PRN, heartburn, indigestion, Starting on 12/10/23 at 2201 calcium carbonate 1500 mg / cholecalciferol 800 unt chewable tablet (3 sources) Vitamin D Start: 12-14-2023 End: 01-13-2024 calcium carbonate-vitami n D3 (Calcium 600 with Vitamin D3) 600 mg-10 mcg (400 unit) chewable tablet Indications: Pelvic pain Chew 1 tablet 2 times a day. 60 tablet 12/14/2023 01/13/2024 Active cetirizine hydrochloride 10 mg oral tablet (3 sources) Histamine-1 Receptor Antagonist take 1 tablet by mouth every twelve hours cetirizine (ZyrTEC) 10 mg tablet Take 1 tablet (10 mg) by mouth every 12 hours. Active cholecalciferol 0.025 mg oral tablet (4 sources) Vitamin D Start: 12-08-2023 take 5000 [IU] by mouth once daily 5,000 Units, oral, Daily, First dose on Tata 12/08/23 at 2100 take 1 tablet by mouth once zuleima y cholecalciferol (Vitamin D-3) 5,000 Units tablet Take 1 tablet (5,000 Units) by mouth once daily. Active cyclobenzaprine hydrochloride 10 mg oral tablet (18 sources) Muscle Relaxant Start: 12-14-2023 take 1 tablet by mouth three times daily as needed for muscle spasms cyclobenzaprine (Flexeril) 10 mg tablet Indications: Pelvic pain Take 1 tablet (10 mg) by mouth 3 times a day as needed for muscle spasms for up to 7 days. 21 tablet 12/14/2023 Active Start: 09-17-2023 End: 12-08-2023 take 1 tablet by mouth three times daily as needed for pain cyclobenzaprine (Flexeril) 10 mg tablet TAKE 1 TABLET BY MOUTH THREE TIMES A DAY NEEDED FOR MUSCLE PAIN 09/17/2023 12/08/2023 Discontinued (Therapy completed) take [address] [facility] once daily at bedtime Cyclobenzaprine HCl 10 MG 2 tabs @ HS Orally Once a day Active diclofenac sodium 50 mg delayed release oral tablet (17 sources) Nonsteroidal Anti-inflammatory Drug take 1 tablet by mouth twice daily diclofenac (Voltaren) 50 mg EC tablet Take 1 tablet (50 mg) by mouth 2 times a day. Active take 1.5 tablets by mouth once d aily Diclofenac Potassium 50 MG 1.5 tabs Orally once a day Active diphenhydrAMINE hydrochloride 25 mg oral capsule (1 source) Histamine-1 Receptor Antagonist Start: 12-12-2023 25 mg, oral, Nightly PRN, sleep, If melatonin does not work, Starting on Tue12/12/23 at 0310 docusate sodium 100 mg oral capsule (4 sources) Start: 12-08-2023 End: 01-13-2024 take 1 capsule by mouth twice daily docusate sodium (Colace) 100 mg capsule Indications: Pelvic pain Take 1 capsule (100 mg) by mouth 2 times a day. 60 capsule 12/14/2023 01/13/2024 Active fluticasone propionate 0.05 mg/actuat metered dose nasal spray (1 source) Corticosteroid Start: 12-14-2023 2 spray, Each Nostril, Daily, First dose on Tue12/14/23 at 2030, Shake gently. Before first use, prime pump (press 6 times until fine spray appears). After use, clean tip and replace cap. gabapentin 300 mg oral capsule (7 sources) Anti-epileptic Agent Start: 10-27-2023 take 1 capsule by mouth once daily at bedtime gabapentin (Neurontin) 300 mg capsule Take 1 capsule (300 mg) by mouth once daily at bedtime. 10/27/2023 Active Start: 01-30-2021 End: 02-27-2021 gabapentin (NEURONTIN) 100 M G capsule TAKE 2 PILLS THREE TIMES PER DAY 180 capsule 0 01/30/2021 02/27/2021 Discontinued (REORDER) glucosamine/chondr [place] A sod (OSTEO BI-FLEX ORAL) (3 sources) take 1 tablet by mouth twice daily glucosamine/chondr [place] A sod (OSTEO BI-FLEX ORAL) Take 1 tablet by mouth 2 times a day. Active 1 ml HYDROmorphone hydrochloride 1 mg/ml cartridge (2 sources) Opioid Agonist Start: 024 0.2 mg, intravenous, Every 3 hours PRN, pain breakthrough, Starting on Tue12/08/23 at 1810 Start: 12-08-2023 End: 12-08-2023 0.4 mg, intravenous, Every 5 min PRN, pain severe (7-10), first line, Starting on Tue12/08/23 at 1441, Recovery (only), Max total of 4 mg regardless of dose. lisinopril 20 mg oral tablet (19 sources) Angiotensin Converting Enzyme Inhibitor take 1 tablet by mouth once daily lisinopril 20 mg tablet Take 1 tablet (20 mg) by mouth once daily. Active take 1 tablet by mouth once zuleima y lisinopril (PRINIVIL;ZESTRIL) 10 MG tablet Take 10 mg by mouth daily 0 Active loratadine 10 mg oral tablet (2 sources) Start: 12-14-2023 take 10 mg by mouth twice daily 10 mg, oral, 2 times daily, First dose (after last modification) on Tue12/14/23 at 2115 Start: 12-13-2023 End: 12-14-2023 take 10 mg by mouth once daily 10 mg, oral, Daily, Fir st dose on Tue12/13/23 at 2145 magnesium oxide 500 mg oral tablet (5 sources) Start: 11-29-2022 take 1 tablet by mouth once daily magnesium oxide 500 mg magnesium tablet Take 1 tablet (500 mg) by mouth once daily. 11/29/2022 Active meclizine hydrochloride 12.5 mg oral tablet (1 source) Antiemetic Start: 11-02-2022 take 1 tablet by mouth every eight hours as needed for dizziness Meclizine HCl 12.5 MG 1 tablet as needed Orally every 8 hours as needed for dizziness, may cause sedation for 5 days Oct, Active melatonin 5 mg oral tablet (1 source) Start: 12-09-2023 take 5 mg by mouth once daily as needed for sleep 5 mg, oral, Nightly PRN, sleep, Starting on Tue12/09/23 at 2318 meloxicam 15 mg oral tablet (2 sources) Nonsteroidal Anti-inflammatory Drug Start: 11-16-2020 take 1 tablet by mouth once daily meloxicam (MOBIC) 15 MG tablet TAKE 1 TABLET BY MOUTH EVERY DAY 0 11/16/2020 Active 24 hr metoprolol succinate 25 mg extended release oral tablet (18 sources) beta-Adrenergic [place] Start: 11-15-2023 take 1 tablet by mouth once daily metoprolol succinate XL (Toprol-XL) 25 mg 24 hr tablet Take 1 tablet (25 mg) by mouth once daily. 11/15/2023 Active take 1 tablet by mouth once zuleima y Metoprolol Succinate ER 25 MG TAKE 1 TABLET BY MOUTH EVERY DAY for 90 Active multivitamin tablet (3 sources) take 1 tablet by mouth once daily multivitamin tablet Take 1 tablet by mouth once daily. Active ondansetron 4 mg oral tablet (4 sources) Serotonin-3 Receptor Antagonist Start: ondansetron (Zofran) 4 mg tablet Indications: Pelvic pain Take 2 tablets (8 mg) by mouth every 8 hours if needed for nausea or vomiting for up to 15 doses. 15 tablet 12/14/2023 Active Start: 12-08-2023 take 1 tablet by olive th every eight hours as needed ondansetron (Zofran) tablet 4 mg oxyCODONE hydrochloride 5 mg oral tablet (3 sources) Opioid Agonist Start: 12-08-2023 take 1 tablet by mouth every six hours as needed 10 mg, oral, Every 6 hours PRN, pain severe (7-10), first line, Starting on Tata 12/08/23 at 1809, If ordered PRN for pain, nurse is permitted to administer this medication for higher pain scores based on patient preference? Yes Start: 12-08-2023 End: 12-21-2023 take 1 tablet by mouth every six hours oxyCODONE (Roxicodone) 5 mg immediate release tablet Indications: Pelvic pain , Acute postoperative pain Take 1 tablet (5 mg) by mouth every 6 hours for 7 days. 28 tablet 12/14/2023 12/21/2023 Active pantoprazole (1 source) Proton Pump Inhibitor Start: 12-11-2023 pantoprazole (ProtoNix) EC tablet 40 mg phenol 14 mg/ml mucosal spray (1 source) Start: 12-11-2023 take 1 spray(s) by mouth every two hours as needed 1 spray, Mouth/Throat, Every 2 hour PRN, sore throat, Starting on [place] 12/11/23 at 1141, Instruct patient to spit out after 15 seconds. polyethylene glycol 3350 39085 mg powder for oral solution (1 source) Osmotic Laxative Start: 12-08-2023 17 g, oral, D aily, First dose on Tue12/08/23 at 1830, Bowel Regimen - for prevention of constipation. predniSONE 20 mg oral tablet (6 sources) Start: 12-02-2022 take 2 tablets by mouth every twenty-four hours predniSONE 20 MG 2 tablets Orally Once a day for 5 days Nov, Active Start: 12-02-2022 take 2 tablets by mouth every twenty-four hours Promethazine (1 source) Phenothiazine Start: 12-11-2023 take 1 tablet by mouth every six hours as needed promethazine (Phenergan) tablet 25 mg promethazine (Phenergan) 12.5 mg in sodium chloride 0.9% 50 mL IV (1 source) Start: 12-11-2023 take 12.5 mg intravenously every six hours as needed 12.5 mg, intravenous, Administer over 15 Minutes, Every 6 hours PRN, nausea/vomiting, first line, Starting on Tue12/11/23 at 2110 sennosides, care home 8.6 mg oral tablet (1 source) Start: 12-08-2023 take 1 tablet by mouth once daily 8.6 mg (1 tablet), oral, Nightly, First dose on Tue12/08/23 at 2100 simethicone 80 mg chewable tablet (1 source) Start: 12-09-2023 take 40 mg by mouth four times daily as needed 40 mg, oral, 4 times daily PRN, flatulence, Starting on Tue12/09/23 at 1319 simvastatin 20 mg oral tablet (20 sources) HMG-CoA Reductase Inhibitor Start: 12-08-2023 take 20 mg by mouth once daily 20 mg, oral, Nightly, First dose on Tue12/08/23 at 2100 sodium chloride 0.111 meq/ml nasal spray (1 source) Start: 12-13-2023 take 1 spray(s) nasal route four times daily as needed for congestion 1 spray, Each Nostril, 4 times daily PRN, congestion, Starting on Tue12/13/23 at 1350 tiZANidine 4 mg oral tablet (5 sources) Central alpha-2 Adrenergic Agonist Start: 11-20-2020 take 1 tablet by mouth three times daily as needed tiZANidine (ZANAFLEX) 4 MG tablet TAKE 1 TABLET BY MOUTH 3 TIMES A DAY NEEDED 0 11/20/2020 Active traZODone hydrochloride 50 mg oral tablet (8 sources) Serotonin Reuptake Inhibitor Start: 07-26-2023 take 1 tablet by mouth every twenty-four [...] Drug Class(es) Dates Sig (Normalized) Sig (Original) calcium chloride 0.0014 meq/ml / potassium chloride 0.004 meq/ml / sodium chloride 0.103 meq/ml / sodium lactate 0.028 meq/ml injectable solution (2 sources) Start: 12-11-2023 End: 12-15-2023 take 75 mL intravenously every hour 75 mL/hr, intravenous, Continuous, Starting on Tue12/11/23 at 0000 Start: 12-08-2023 End: 12-08-2023 take 100 mL intravenously every hour 100 mL/hr, intravenous, Continuous, Starting on Tue12/08/23 at 1500, Recovery (only) ceFAZolin 2000 mg injection (1 source) Cephalosporin Antibacterial Start: 12-09-2023 End: 12-09-2023 take 2 g intravenously every eight hours 2 g, intravenous, Administer over 30 Minutes, Every 8 hours, First dose on Tue12/09/23 at 0630, For 2 doses, premix bag, Dosing of this medication varies based on severity of illness. Does this patient have sepsis or concern for sepsis (probable or documented infection plus systemic manifestations of infection)? No, Suspected Indication (Select all that apply): Surgical Prophylaxis iopamidol (ISOVUE-M 200) 41 % injection (1 source) Start: 02-25-2021 End: 02-25-2021 iopamidol (ISOVUE-M 200) 41 % injection 10 ml lidocaine hydrochloride 20 mg/ml injection (1 source) Antiarrhythmic, Amide Local Anesthetic Start: 02-25-2021 End: 02-25-2021 lidocaine 2 % injection naproxen 500 mg oral tablet (1 source) Nonsteroidal Anti-inflammatory Drug Start: 09-17-2023 End: 09-24-2023 take 1 tablet by mouth twice daily naproxen (Naprosyn) 500 mg tablet Take 1 tablet (500 mg) by mouth 2 times a day. 09/17/2023 09/24/2023 oxygen (O2) therapy (1 source) Start: 12-08-2023 End: 12-08-2023 inhalation, Continuous , First dose on Tata 12/08/23 at 1500, Recovery (only), Device: Nasal Cannula, Rate in liters per minute: 2 LPM, Keep O2 Sat Above: 92% Problems Active Problems Problem Classification Problem Date Documented Date Episodic/Chronic Abdominal pain (20 sources) Generalized abdominal pain; Translations: [Generalized abdominal pain] Onset: 05-01-2014 11-30-2023 Episodic Acute bronchitis (1 source) Acute bronchitis, unspecified Episodic Anxiety disorders (14 sources) Generalized anxiety disorder; Translations: [Generalized anxiety disorder] Onset: 08-02-2018 Chronic Asthma (15 sources) Reactive airways dysfunction syndrome; Translations: [Unspecified asthma, uncomplicated] Onset: 12-08-2023 12-08-2023 Chronic Chronic obstructive pulmonary disease and bronchiectasis [...] left ear Episodic Disorders of lipid metabolism (18 sources) Hyperlipidemia; Translations: [Hyperlipidemia, unspecified] Onset: 12-08-2023 12-08-2023 Chronic Essential hypertension (9 sources) Benign essential hypertension; Translations: [Essential hypertension, benign] Onset: 01-10-2019 12-08-2023 Chronic Headache; including migraine (19 sources) Complicated [...] left lower leg, initial encounter] Episodic Other male genital disorders (5 sources) Pain in scrotum ; Translations: [Scrotal pain] Onset: 11-30-2023 11-30-2023 Episodic Other nervous system disorders (1 source) Other chronic pain; Translations: [OTHER CHRONIC PAIN] Onset: 06-02-2022 Chronic Other nervous system disorders (1 source) Acute postoperative pain; Translations: [Other acute postprocedural pain] 12-14-2023 Episodic Other nervous system disorders (2 sources) Other acute postprocedural pain; Translations: [Other acute postprocedural pain] Onset: 12-08-2023 Episodic Other non-traumatic joint disorders (18 sources) Shoulder joint pain; Translations: [Pain in right shoulder] Onset: 03-08-2017 Episodic Other non-traumatic joint disorders (5 sources) Hip pain; Translations: [Pain in right hip] Onset: 11-30-2023 11-30-2023 Episodic Other nutritional; endocrine; and metabolic disorders [...] nutritional; endocrine; and metabolic disorders (6 sources) Obesity; Translations: [Obesity, unspecified] Onset: 12-08-2023 12-08-2023 Chronic Other skin disorders (12 sources) Other [...] Episodic Immunizations and screening for infectious disease (7 sources) Contact with or exposure to other [...] Name Value Interpretation Reference Range Facility XR PELVIS 3+ VIEWSon 024 XR PELVIS 3+ VIEWS Interpreted By: Caryn Norman, STUDY: XR PELVIS 3+ VIEWS; ; 12/28/2023 12:54 pm INDICATION: Signs/Symptoms:pain. COMPARISON: Pelvis radiographs dated 12/08/2023. ACCESSION NUMBER(S): [id number] ORDERING CLINICIAN: ADAM NAVARRO FINDINGS: Extensive postsurgical changes of the pelvic fusion through parasymphyseal pubis and bilateral sacroiliac joints is noted. Hardware is intact without perihardware lucency to suggest loosening. There is interval evidence of metallic clips projecting over the pubic symphysis, likely related to recent postsurgical status. No obvious soft tissue abnormality. IMPRESSION: Extensive postsurgical changes of the pelvis with intact hardware. MACRO: None Signed by: Caryn Norman 12/30/2023 12:52 PM Dictation workstation: [id number] [facility] Comment on above: Order Comment: 5v pe lvis (AP/inlet/outlet/Judet's) Basic metabolic 2000 panelon 12-14-2023 Anion gap [Moles/Vol] 12 mmol/L Normal 10-20 [facility] Comment on above: Performed By: #### 2 4321-2 ####ANASTACIO Hodge ([id number])[facility] ([facility])[address] [place] [address] Calcium [Mass/Vol] 8.3 mg/dL Low 8.6-10.6 [facility] Comment on above: Performed By: #### 2 4321-2 ####ANASTACIO Hodge ([id number])[facility] ([facility])[address] [place] [address] Chloride [Moles/Vol] 103 mmol/L Normal 98-107 [facility] Comment on above: Performed By: #### 2 4321-2 ####ANASTACIO WOOD L ([id number])[facility] ([facility])[address] [place] [address] CO2 [Moles/Vol] 27 mmol/L Normal 21-32 [facility] Comment on above: Performed By: #### 2 4321-2 ####ANASTACIO WOOD L ([id number])[facility] ([facility])[address] [place] [address] Creatinine [Mass/Vol] 0.82 mg/dL Normal 0.50-1.30 [facility] Comment on above: Performed By: #### 2 4321-2 ####ANASTACIO WOOD L ([id number])[facility] ([facility])[address] [place] [address] GFR/1.73 sq M.predicted MDRD (S/P/Bld) [Vol rate/Area] mL/min/{1.73_m2} Normal >60 [facility] Comment on above: Result Comment: Calc ulations of estimated GFR are performed using the 2020 CKD-EPI Study Refit equation without the race variable for the IDMS-Traceable creatinine methods. https://jasn.asnjournals.org/content/early/ASN.15914 22613 Performed By: #### 2 4321-2 ####ANASTACIO Hodge ([id number])[facility] ([facility])[address] [place] [address] Glucose [Mass/Vol] 103 mg/dL High 74-99 [facility] Comment on above: Performed By: #### 2 4321-2 ####ANASTACIO Hodge ([id number])[facility] ([facility])[address] [place] [address] Potassium [Moles/Vol] 3.6 mmol/L Normal 3.5-5.3 [facility] Comment on above: Performed By: #### 2 4321-2 ####ANASTACIO WOOD L ([id number])[facility] ([facility])[address] [place] [address] Sodium [Moles/Vol] 138 mmol/L Normal 136-145 [facility] Comment on above: Performed By: #### 2 4321-2 ####ANASTACIO WOOD L ([id number])[facility] ([facility])[address] [place] [address] Urea nitrogen [Mass/Vol] 14 mg/dL Normal 6-23 [facility] Comment on above: Performed By: #### 2 4321-2 ####ANASTACIO HAMMTZER L ([id number])[facility] ([facility])[address] [place] [address] Anion gap [Moles/Vol] 12 mmol/L 10 - 2 0 mmol/L [facility] Calcium [Mass/Vol] 8.3 mg/dL Low 8.6 - 10. 6 mg/dL [facility] Chloride [Moles/Vol] 103 mmol/L 98 - 10 7 mmol/L [facility] CO2 [Moles/Vol] 27 mmol/L 21 - 32 mmol/L [facility] Creatinine [Mass/Vol] 0.82 mg/dL 0.50 - 1.30 mg/dL [facility] eGFR - PINF [facility] Comment on above: Calculations of cris mated GFR are performed using the 2020 CKD-EPI Study Refit equation without the race variable for the IDMS-Traceable creatinine methods. https://jasn.asnjournals.org/content/early/ASN.68063 93973 Glucose [Mass/Vol] 103 mg/dL High 74 - 99 mg/dL [facility] Interpretation and review of laboratory results Abnormal [facility] Potassium [Moles/Vol] 3.6 mmol/L 3.5 - 5.3 mmol/L [facility] Sodium [Moles/Vol] 138 mmol/L 136 - 145 mmol/L [facility] Urea nitrogen [Mass/Vol] 14 mg/dL 6 - 23 mg/dL [facility] CBC W Auto Differential pane l (Bld)on 12-14-2023 Basophils (Bld) [#/Vol] 0.05 x10*3/uL Normal 0.00-0.10 [facility] Comment on above: Performed By: #### 5 7021-8 ####ANASTACIO WOOD L ([id number])[facility] ([facility])[address] [place] [address] Basophils/100 WBC (Bld) 0.6 % Normal 0.0-2.0 [facility] Comment on above: Performed By: #### 5 7021-8 ####ANASTACIO KENNYMOTZER L ([id number])[facility] ([facility])[address] [place] [address] Eosinophils (Bld) [#/Vol] 0.30 x10*3/uL Normal 0.00-0.70 [facility] Comment on above: Performed By: #### 5 7021-8 ####ANASTACIO KENNYMOTZER L ([id number])[facility] ([facility])[address] [place] [address] Eosinophils/100 WBC (Bld) 3.3 % Normal 0.0-6.0 [facility] Comment on above: Performed By: #### 5 7021-8 ####ANASTACIO Hodge ([id number])[facility] ([facility])[address] [place] [address] Erythrocyte distribution width (RBC) [Ratio] 13.1 % Normal 11.5-14.5 [facility] Comment on above: Performed By: #### 5 7021-8 ####ANASTACIO Hodge ([id number])[facility] ([facility])[address] [place] [address] Hematocrit (Bld) [Volume fraction] 32.7 % Low 41.0-52.0 [facility] Comment on above: Performed By: #### 5 7021-8 ####ANASTACIO Hodge ([id number])[facility] ([facility])[address] [place] [address] Hemoglobin (Bld) [Mass/Vol] 10.8 g/dL Low 13.5-17.5 [facility] Comment on above: Performed By: #### 5 7021-8 ####ANASTACIO Hodge ([id number])[facility] ([facility])[address] [place] [address] Immature granulocytes (Bld) [#/Vol] 0.13 x10*3/uL Normal 0.00-0.70 [facility] Comment on above: Performed By: #### 5 7021-8 ####ANASTACIO Hodge ([id number])[facility] ([facility])[address] [place] [address] Immature granulocytes/100 WBC (Bld) 1.4 % High 0.0-0.9 [facility] Comment on above: Result Comment: Brittany ture Granulocyte Count (IG) includes promyelocytes, myelocytes and metamyelocytes but does not include bands. Percent differential counts (%) should be interpreted in the context of the absolute cell counts (cells/UL). Performed By: #### 5 7021-8 ####ANASTACIO Hodge ([id number])[facility] ([facility])[address] [place] [address] Lymphocytes (Bld) [#/Vol] 1.61 x10*3/uL Normal 1.20-4.80 [facility] Comment on above: Performed By: #### 5 7021-8 ####ANASTACIO Hodge ([id number])[facility] ([facility])[address] [place] [address] Lymphocytes/100 WBC (Bld) 17.8 % Normal 13.0-44.0 [facility] Comment on above: Performed By: #### 5 7021-8 ####ANASTACIO Hodge ([id number])[facility] ([facility])[address] [place] [address] MCH (RBC) [Entitic mass] 28.1 pg Normal 26.0-34.0 [facility] Comment on above: Performed By: #### 5 7021-8 ####ANASTACIO Hodge ([id number])[facility] ([facility])[address] [place] [address] MCHC (RBC) [Mass/Vol] 33.0 g/dL Normal 32.0-36.0 [facility] Comment on above: Performed By: #### 5 7021-8 ####ANASTACIO Hodge ([id number])[facility] ([facility])[address] [place] [address] MCV (RBC) [Entitic vol] 85 fL Normal 80-100 [facility] Comment on above: Performed By: #### 5 7021-8 ####ANASTACIO Hodge ([id number])[facility] ([facility])[address] [place] [address] Monocytes (Bld) [#/Vol] 0.71 x10*3/uL Normal 0.10-1.00 [facility] Comment on above: Performed By: #### 5 7021-8 ####ANASTACIO Hodge ([id number])[facility] ([facility])[address] [place] [address] Monocytes/100 WBC (Bld) 7.8 % Normal 2.0-10.0 [facility] Comment on above: Performed By: #### 5 7021-8 ####ANASTACIO Hodge ([id number])[facility] ([facility])[address] [place] [address] Neutrophils (Bld) [#/Vol] 6.25 x10*3/uL Normal 1.20-7.70 [facility] Comment on above: Result Comment: Perc ent differential counts (%) should be interpreted in the context of the absolute cell counts (cells/uL). Performed By: #### 5 7021-8 ####ANASTACIO Hodge ([id number])[facility] ([facility])[address] [place] [address] Neutrophils/100 WBC (Bld) 69.1 % Normal 40.0-80.0 [facility] Comment on above: Performed By: #### 5 7021-8 ####ANASTACIO Hodge ([id number])[facility] ([facility])[address] [place] [address] Nucleated RBC/100 WBC (Bld) [Ratio] 0.0 /100 WBCs Normal 0.0-0.0 [facility] Comment on above: Performed By: #### 5 7021-8 ####ANASTACIO Hodge ([id number])[facility] ([facility])[address] [place] [address] Platelets (Bld) [#/Vol] 280 x10*3/uL Normal 150-450 [facility] Comment on above: Performed By: #### 5 7021-8 ####ANASTACIO Hodge ([id number])[facility] ([facility])[address] [place] [address] RBC (Bld) [#/Vol] 3.85 x10*6/uL Low 4.50-5.90 [facility] Comment on above: Performed By: #### 5 7021-8 ####ANASTACIO Hodge ([id number])[facility] ([facility])[address] [place] [address] WBC (Bld) [#/Vol] 9.1 x10*3/uL Normal 4.4-11.3 [facility] Comment on above: Performed By: #### 5 7021-8 ####ANASTACIO Hodge ([id number])[facility] ([facility])[address] [place] [address] Basophils (Bld) [#/Vol] 0.05 10*3/uL [facility] Basophils/100 WBC (Bld) 0.6 % 0.0 - 2.0 % [facility] Eosinophils (Bld) [#/Vol] 0.30 10*3/uL [facility] Eosinophils/100 WBC (Bld) 3.3 % 0.0 - 6.0 % [facility] Erythrocyte distribution width (RBC) [Ratio] 13.1 % 11.5 - 14.5 % [facility] Hematocrit (Bld) [Volume fraction] 32.7 % Low 41.0 - 52.0 % [facility] Hemoglobin (Bld) [Mass/Vol] 10.8 g/dL Low 13.5 - 17.5 g/dL [facility] Immature granulocytes (Bld) [#/Vol] 0.13 10*3/uL [facility] Immature granulocytes/100 WBC (Bld) 1.4 % High 0.0 - 0.9 % [facility] Comment on above: Immature Granulocyte Count (IG) includes promyelocytes, myelocytes and metamyelocytes but does not include bands. Percent differential counts (%) should be interpreted in the context of the absolute cell counts (cells/UL). Interpretation and review of laboratory results Abnormal [facility] Lymphocytes (Bld) [#/Vol] 1.61 10*3/uL [facility] Lymphocytes/100 WBC (Bld) 17.8 % 13.0 - 44.0 % [facility] MCH (RBC) [Entitic mass] 28.1 pg 26.0 - 34.0 pg [facility] MCHC (RBC) [Mass/Vol] 33.0 g/dL 32.0 - 36.0 g/dL [facility] MCV (RBC) [Entitic vol] 85 fL 80 - 100 fL [facility] Monocytes (Bld) [#/Vol] 0.71 10*3/uL [facility] Monocytes/100 WBC (Bld) 7.8 % 2.0 - 10.0 % [facility] Neutrophils (Bld) [#/Vol] 6.25 10*3/uL [facility] Comment on above: Percent differential counts (%) should be interpreted in the context of the absolute cell counts (cells/uL). Neutrophils/100 WBC (Bld) 69.1 % 40.0 - 80.0 % [facility] Nucleated RBC/100 WBC (Bld) [Ratio] 0.0 % [facility] Platelets (Bld) [#/Vol] 280 10*3/uL [facility] RBC (Bld) [#/Vol] 3.85 10*6/uL [facility] WBC (Bld) [#/Vol] 9.1 10*3/uL [facility] Electrocardiogram, 12-lead P RN ACS symptomsOrdered By: Dustin Lyman on 12-14-2023 Atrial Rate 104 BPM [facility] Work Phone: [phone] P [place] 43 degrees [facility] Work Phone: [phone] P Offset 196 ms [facility] Work Phone: [phone] P Onset 139 ms [facility] Work Phone: [phone] TN Interval 154 ms [facility] Work Phone: [phone] Q Onset 216 ms [facility] Work Phone: [phone] QRS Count 17 beats [facility] Work Phone: [phone] QRS Duration 94 ms [facility] Work Phone: [phone] QT Interval 346 ms [facility] Work Phone: [phone] QTC Calculation(Bazett) 454 ms [facility] Work Phone: [phone] QTC Fredericia 415 ms [facility] Work Phone: R [place] 9 degrees [facility] Work Phone: T [place] 27 degrees [facility] Work Phone: T Offset 389 ms [facility] Work Phone: Ventricular Rate 104 BPM [facility] Work Phone: [facility] Work Phone: Electrocardiogram, 12-lead P RN ACS symptomson 12-14-2023 Sinus tachycardia Minimal voltage criteria for LVH, may be normal variant Borderline ECG No previous ECGs available Confirmed by Dustin Lyman ([id number]) on 12/14/2023 2:58:33 PM Dustin Bernabe MD - 12/14/2023 Sinus tachycardia Minimal voltage criteria for LVH, may be normal variant Borderline ECG No previous ECGs available Confirmed by Dustin Lyman ([id number]) on 12/14/2023 2:58:33 PM [facility] Work Phone: Magnesiumon 12-14-2023 Magnesium [Mass/Vol] 2.11 mg/dL Normal 1.60-2.40 [facility] Comment on above: Performed By: #### 1 9123-9 ####ANASTACIO Hodge ([id number])[facility] ([facility])[address] [place] [address] Magnesium [Mass/Vol] 2.11 mg/dL 1.60 - 2.40 mg/dL [facility] Magnesium [Mass/Vol]on 12-13 Interpretation and review of laboratory results Normal [facility] No Panel Informationon 12-13 [facility] Basic metabolic 2000 panelon 12-13-2023 Anion gap [Moles/Vol] 13 mmol/L Normal 10-20 [facility] Comment on above: Performed By: #### 2 4321-2 ####ANASTACIO Hodge ([id number])[facility] ([facility])[address] [place] [address] Calcium [Mass/Vol] 8.5 mg/dL Low 8.6-10.6 [facility] Comment on above: Performed By: #### 2 4321-2 ####ANASTACIO Hodge ([id number])[facility] ([facility])[address] [place] [address] Chloride [Moles/Vol] 100 mmol/L Normal 98-107 [facility] Comment on above: Performed By: #### 2 4321-2 ####ANASTACIO Hodge ([id number])[facility] ([facility])[address] [place] [address] CO2 [Moles/Vol] 28 mmol/L Normal 21-32 [facility] Comment on above: Performed By: #### 2 4321-2 ####ANASTACIO Hodge ([id number])[facility] ([facility])[address] [place] [address] Creatinine [Mass/Vol] 0.92 mg/dL Normal 0.50-1.30 [facility] Comment on above: Performed By: #### 2 4321-2 ####ANASTACIO Hodge ([id number])[facility] ([facility])[address] [place] [address] GFR/1.73 sq M.predicted MDRD (S/P/Bld) [Vol rate/Area] mL/min/{1.73_m2} Normal >60 [facility] Comment on above: Result Comment: Calc ulations of estimated GFR are performed using the 2020 CKD-EPI Study Refit equation without the race variable for the IDMS-Traceable creatinine methods. https://jasn.asnjournals.org/content//ASN.34154 85087 Performed By: #### 2 4321-2 ####ANASTACIO Hodeg ([id number])[facility] ([facility])[address] [place] [address] Glucose [Mass/Vol] 101 mg/dL High 74-99 [facility] Comment on above: Performed By: #### 2 4321-2 ####ANASTACIO WOOD L ([id number])[facility] ([facility])[address] [place] [address] Potassium [Moles/Vol] 3.9 mmol/L Normal 3.5-5.3 [facility] Comment on above: Performed By: #### 2 4321-2 ####ANASTACIO WOOD L ([id number])[facility] ([facility])[address] [place] [address] Sodium [Moles/Vol] 137 mmol/L Normal 136-145 [facility] Comment on above: Performed By: #### 2 4321-2 ####ANASTACIO WOOD L ([id number])[facility] ([facility])[address] [place] [address] Urea nitrogen [Mass/Vol] 16 mg/dL Normal 6-23 [facility] Comment on above: Performed By: #### 2 4321-2 ####ANASTACIO WOOD L ([id number])[facility] ([facility])[address] [place] [address] Anion gap [Moles/Vol] 13 mmol/L 10 - 2 0 mmol/L [facility] Calcium [Mass/Vol] 8.5 mg/dL Low 8.6 - 10. 6 mg/dL [facility] Chloride [Moles/Vol] 100 mmol/L 98 - 10 7 mmol/L [facility] CO2 [Moles/Vol] 28 mmol/L 21 - 32 mmol/L [facility] Creatinine [Mass/Vol] 0.92 mg/dL 0.50 - 1.30 mg/dL [facility] eGFR - PINF [facility] Comment on above: Calculations of cris mated GFR are performed using the 2020 CKD-EPI Study Refit equation without the race variable for the IDMS-Traceable creatinine methods. https://jasn.asnjournals.org/content//ASN.21887 66238 Glucose [Mass/Vol] 101 mg/dL High 74 - 99 mg/dL [facility] Interpretation and review of laboratory results Abnormal [facility] Potassium [Moles/Vol] 3.9 mmol/L 3.5 - 5.3 mmol/L [facility] Sodium [Moles/Vol] 137 mmol/L 136 - 145 mmol/L [facility] Urea nitrogen [Mass/Vol] 16 mg/dL 6 - 23 mg/dL [facility] CBC W Auto Differential pane l (Bld)on 12-13-2023 Basophils (Bld) [#/Vol] 0.06 x10*3/uL Normal 0.00-0.10 [facility] Comment on above: Performed By: #### 5 7021-8 ####ANASTACIO Hodge ([id number])[facility] ([facility])[address] [place] [address] Basophils/100 WBC (Bld) 0.5 % Normal 0.0-2.0 [facility] Comment on above: Performed By: #### 5 7021-8 ####ANASTACIO KENNYMOEDBI L ([id number])[facility] ([facility])[address] [place] [address] Eosinophils (Bld) [#/Vol] 0.40 x10*3/uL Normal 0.00-0.70 [facility] Comment on above: Performed By: #### 5 7021-8 ####ANASTACIO KENNYMODEBI L ([id number])[facility] ([facility])[address] [place] [address] Eosinophils/100 WBC (Bld) 3.4 % Normal 0.0-6.0 [facility] Comment on above: Performed By: #### 5 7021-8 ####ANASTACIO KENNYMODEBI L ([id number])[facility] ([facility])[address] [place] [address] Erythrocyte distribution width (RBC) [Ratio] 13.1 % Normal 11.5-14.5 [facility] Comment on above: Performed By: #### 5 7021-8 ####ANASTACIO KENNYMOTZER L ([id number])[facility] ([facility])[address] [place] [address] Hematocrit (Bld) [Volume fraction] 36.4 % Low 41.0-52.0 [facility] Comment on above: Performed By: #### 5 7021-8 ####ANASTACIO Hodge ([id number])[facility] ([facility])[address] [place] [address] Hemoglobin (Bld) [Mass/Vol] 12.0 g/dL Low 13.5-17.5 [facility] Comment on above: Performed By: #### 5 7021-8 ####ANASTACIO Hodge ([id number])[facility] ([facility])[address] [place] [address] Immature granulocytes (Bld) [#/Vol] 0.17 x10*3/uL Normal 0.00-0.70 [facility] Comment on above: Performed By: #### 5 7021-8 ####ANASTACIO Hodge ([id number])[facility] ([facility])[address] [place] [address] Immature granulocytes/100 WBC (Bld) 1.4 % High 0.0-0.9 [facility] Comment on above: Result Comment: Brittany ture Granulocyte Count (IG) includes promyelocytes, myelocytes and metamyelocytes but does not include bands. Percent differential counts (%) should be interpreted in the context of the absolute cell counts (cells/UL). Performed By: #### 5 7021-8 ####ANASTACIO Hodge ([id number])[facility] ([facility])[address] [place] [address] Lymphocytes (Bld) [#/Vol] 2.07 x10*3/uL Normal 1.20-4.80 [facility] Comment on above: Performed By: #### 5 7021-8 ####ANASTACIO Hodge ([id number])[facility] ([facility])[address] [place] [address] Lymphocytes/100 WBC (Bld) 17.5 % Normal 13.0-44.0 [facility] Comment on above: Performed By: #### 5 7021-8 ####ANASTACIO Hodge ([id number])[facility] ([facility])[address] [place] [address] MCH (RBC) [Entitic mass] 28.1 pg Normal 26.0-34.0 [facility] Comment on above: Performed By: #### 5 7021-8 ####ANASTACIO Hodge ([id number])[facility] ([facility])[address] [place] [address] MCHC (RBC) [Mass/Vol] 33.0 g/dL Normal 32.0-36.0 [facility] Comment on above: Performed By: #### 5 7021-8 ####ANASTACIO Hodge ([id number])[facility] ([facility])[address] [place] [address] MCV (RBC) [Entitic vol] 85 fL Normal 80-100 [facility] Comment on above: Performed By: #### 5 7021-8 ####ANASTACIO Hodge ([id number])[facility] ([facility])[address] [place] [address] Monocytes (Bld) [#/Vol] 0.87 x10*3/uL Normal 0.10-1.00 [facility] Comment on above: Performed By: #### 5 7021-8 ####ANASTACIO Hodge ([id number])[facility] ([facility])[address]34 [place] [address] Monocytes/100 WBC (Bld) 7.3 % Normal 2.0-10.0 [facility] Comment on above: Performed By: #### 5 7021-8 ####ANASTACIO Hodge ([id number])[facility] ([facility])[address] [place] [address] Neutrophils (Bld) [#/Vol] 8.28 x10*3/uL High 1.20-7.70 [facility] Comment on above: Result Comment: Perc ent differential counts (%) should be interpreted in the context of the absolute cell counts (cells/uL). Performed By: #### 5 7021-8 ####ANASTACIO Hodge ([id number])[facility] ([facility])[address] [place] [address] Neutrophils/100 WBC (Bld) 69.9 % Normal 40.0-80.0 [facility] Comment on above: Performed By: #### 5 7021-8 ####ANASTACIO Hodge ([id number])[facility] ([facility])[address] [place] [address] Nucleated RBC/100 WBC (Bld) [Ratio] 0.0 /100 WBCs Normal 0.0-0.0 [facility] Comment on above: Performed By: #### 5 7021-8 ####ANASTACIO Hodge ([id number])[facility] ([facility])[address] [place] [address] Platelets (Bld) [#/Vol] 307 x10*3/uL Normal 150-450 [facility] Comment on above: Performed By: #### 5 7021-8 ####ANASTACIO Hodge ([id number])[facility] ([facility])[address] [place] [address] RBC (Bld) [#/Vol] 4.27 x10*6/uL Low 4.50-5.90 [facility] Comment on above: Performed By: #### 5 7021-8 ####ANASTACIO Hodge ([id number])[facility] ([facility])[address] [place] [address] WBC (Bld) [#/Vol] 11.9 x10*3/uL High 4.4-11.3 [facility] Comment on above: Performed By: #### 5 7021-8 ####ANASTACIO WOOD L ([id number])[facility] ([facility])[address] [place] [address] Basophils (Bld) [#/Vol] 0.06 10*3/uL [facility] Basophils/100 WBC (Bld) 0.5 % 0.0 - 2.0 % [facility] Eosinophils (Bld) [#/Vol] 0.40 10*3/uL [facility] Eosinophils/100 WBC (Bld) 3.4 % 0.0 - 6.0 % [facility] Erythrocyte distribution width (RBC) [Ratio] 13.1 % 11.5 - 14.5 % [facility] Hematocrit (Bld) [Volume fraction] 36.4 % Low 41.0 - 52.0 % [facility] Hemoglobin (Bld) [Mass/Vol] 12.0 g/dL Low 13.5 - 17.5 g/dL [facility] Immature granulocytes (Bld) [#/Vol] 0.17 10*3/uL [facility] Immature granulocytes/100 WBC (Bld) 1.4 % High 0.0 - 0.9 % [facility] Comment on above: Immature Granulocyte Count (IG) includes promyelocytes, myelocytes and metamyelocytes but does not include bands. Percent differential counts (%) should be interpreted in the context of the absolute cell counts (cells/UL). Interpretation and review of laboratory results Abnormal [facility] Lymphocytes (Bld) [#/Vol] 2.07 10*3/uL [facility] Lymphocytes/100 WBC (Bld) 17.5 % 13.0 - 44.0 % [facility] MCH (RBC) [Entitic mass] 28.1 pg 26.0 - 34.0 pg [facility] MCHC (RBC) [Mass/Vol] 33.0 g/dL 32.0 - 36.0 g/dL [facility] MCV (RBC) [Entitic vol] 85 fL 80 - 100 fL [facility] Monocytes (Bld) [#/Vol] 0.87 10*3/uL [facility] Monocytes/100 WBC (Bld) 7.3 % 2.0 - 10.0 % [facility] Neutrophils (Bld) [#/Vol] 8.28 10*3/uL High [facility] Comment on above: Percent differential counts (%) should be interpreted in the context of the absolute cell counts (cells/uL). Neutrophils/100 WBC (Bld) 69.9 % 40.0 - 80.0 % [facility] Nucleated RBC/100 WBC (Bld) [Ratio] 0.0 % [facility] Platelets (Bld) [#/Vol] 307 10*3/uL [facility] RBC (Bld) [#/Vol] 4.27 10*6/uL [facility] WBC (Bld) [#/Vol] 11.9 10*3/uL [facility] Magnesiumon 12-13-2023 Magnesium [Mass/Vol] 2.12 mg/dL Normal 1.60-2.40 [facility] Comment on above: Performed By: #### 1 9123-9 ####ANASTACIO Hodge ([id number])[facility] ([facility])[address] [place] [address] Magnesium [Mass/Vol] 2.12 mg/dL 1.60 - 2.40 mg/dL [facility] Magnesium [Mass/Vol]on 12-12 Interpretation and review of laboratory results Normal [facility] [facility] No Panel Informationon 12-12 [facility] Basic metabolic 2000 panelon 12-12-2023 Anion gap [Moles/Vol] 14 mmol/L 10 - 2 0 mmol/L [facility] Calcium [Mass/Vol] 7.8 mg/dL Low 8.6 - 10. 6 mg/dL [facility] Chloride [Moles/Vol] 103 mmol/L 98 - 10 7 mmol/L [facility] CO2 [Moles/Vol] 25 mmol/L 21 - 32 mmol/L [facility] Creatinine [Mass/Vol] 0.87 mg/dL 0.50 - 1.30 mg/dL [facility] eGFR - PINF [facility] Comment on above: Calculations of cris mated GFR are performed using the 2020 CKD-EPI Study Refit equation without the race variable for the IDMS-Traceable creatinine methods. https://jasn.asnjournals.org/content/early/ASN.23221 43033 Glucose [Mass/Vol] 89 mg/dL 74 - 99 mg/dL [facility] Interpretation and review of laboratory results Abnormal [facility] Potassium [Moles/Vol] 3.4 mmol/L Low 3.5 - 5.3 mmol/L [facility] Sodium [Moles/Vol] 139 mmol/L 136 - 145 mmol/L [facility] Urea nitrogen [Mass/Vol] 14 mg/dL 6 - 23 mg/dL [facility] Anion gap [Moles/Vol] 14 mmol/L Normal 10-20 [facility] Comment on above: Performed By: #### 2 4321-2 ####ANASTACIO Hodge ([id number])[facility] ([facility])[address] [place] [address] Calcium [Mass/Vol] 7.8 mg/dL Low 8.6-10.6 [facility] Comment on above: Performed By: #### 2 4321-2 ####ANASTACIO Hodge ([id number])[facility] ([facility])[address] [place] [address] Chloride [Moles/Vol] 103 mmol/L Normal 98-107 [facility] Comment on above: Performed By: #### 2 4321-2 ####ANASTACIO WOOD L ([id number])[facility] ([facility])[address] [place] [address] CO2 [Moles/Vol] 25 mmol/L Normal 21-32 [facility] Comment on above: Performed By: #### 2 4321-2 ####ANASTACIO Hodge ([id number])[facility] ([facility])[address] [place] [address] Creatinine [Mass/Vol] 0.87 mg/dL Normal 0.50-1.30 [facility] Comment on above: Performed By: #### 2 4321-2 ####ANASTACIO WOOD L ([id number])[facility] ([facility])[address] [place] [address] GFR/1.73 sq M.predicted MDRD (S/P/Bld) [Vol rate/Area] mL/min/{1.73_m2} Normal >60 [facility] Comment on above: Result Comment: Calc ulations of estimated GFR are performed using the 2020 CKD-EPI Study Refit equation without the race variable for the IDMS-Traceable creatinine methods. https://jasn.asnjournals.org/content/early/ASN.80889 31251 Performed By: #### 2 4321-2 ####ANASTACIO Hodge ([id number])[facility] ([facility])[address] [place] [address] Glucose [Mass/Vol] 89 mg/dL Normal 74-99 [facility] Comment on above: Performed By: #### 2 4321-2 ####ANASTACIO Hodge ([id number])[facility] ([facility])[address] [place] [address] Potassium [Moles/Vol] 3.4 mmol/L Low 3.5-5.3 [facility] Comment on above: Performed By: #### 2 4321-2 ####ANASTACIO WOOD L ([id number])[facility] ([facility])[address] [place] [address] Sodium [Moles/Vol] 139 mmol/L Normal 136-145 [facility] Comment on above: Performed By: #### 2 4321-2 ####ANASTACIO WOOD L ([id number])[facility] ([facility])[address] [place] [address] Urea nitrogen [Mass/Vol] 14 mg/dL Normal 6-23 [facility] Comment on above: Performed By: #### 2 4321-2 ####ANASTACIO WOOD L ([id number])[facility] ([facility])[address] [place] [address] CBC W Auto Differential pane l (Bld)on 12-12-2023 Basophils (Bld) [#/Vol] 0.07 10*3/uL [facility] Basophils/100 WBC (Bld) 0.5 % 0.0 - 2.0 % [facility] Eosinophils (Bld) [#/Vol] 0.26 10*3/uL [facility] Eosinophils/100 WBC (Bld) 2.0 % 0.0 - 6.0 % [facility] Erythrocyte distribution width (RBC) [Ratio] 12.8 % 11.5 - 14.5 % [facility] Hematocrit (Bld) [Volume fraction] 34.8 % Low 41.0 - 52.0 % [facility] Hemoglobin (Bld) [Mass/Vol] 11.8 g/dL Low 13.5 - 17.5 g/dL [facility] Immature granulocytes (Bld) [#/Vol] 0.10 10*3/uL [facility] Immature granulocytes/100 WBC (Bld) 0.8 % 0.0 - 0.9 % [facility] Comment on above: Immature Granulocyte Count (IG) includes promyelocytes, myelocytes and metamyelocytes but does not include bands. Percent differential counts (%) should be interpreted in the context of the absolute cell counts (cells/UL). Interpretation and review of laboratory results Abnormal [facility] Lymphocytes (Bld) [#/Vol] 1.93 10*3/uL [facility] Lymphocytes/100 WBC (Bld) 14.7 % 13.0 - 44.0 % [facility] MCH (RBC) [Entitic mass] 27.8 pg 26.0 - 34.0 pg [facility] MCHC (RBC) [Mass/Vol] 33.9 g/dL 32.0 - 36.0 g/dL [facility] MCV (RBC) [Entitic vol] 82 fL 80 - 100 fL [facility] Monocytes (Bld) [#/Vol] 1.09 10*3/uL High [facility] Monocytes/100 WBC (Bld) 8.3 % 2.0 - 10.0 % [facility] Neutrophils (Bld) [#/Vol] 9.66 10*3/uL High [facility] Comment on above: Percent differential counts (%) should be interpreted in the context of the absolute cell counts (cells/uL). Neutrophils/100 WBC (Bld) 73.7 % 40.0 - 80.0 % [facility] Nucleated RBC/100 WBC (Bld) [Ratio] 0.0 % [facility] Platelets (Bld) [#/Vol] 296 10*3/uL [facility] RBC (Bld) [#/Vol] 4.25 10*6/uL [facility] WBC (Bld) [#/Vol] 13.1 10*3/uL High [facility] Basophils (Bld) [#/Vol] 0.07 x10*3/uL Normal 0.00-0.10 [facility] Comment on above: Performed By: #### 5 7021-8 #### ANASTACIO Hodge ([id number]) [facility] ([facility]) [address] [place] [address] Basophils/100 WBC (Bld) 0.5 % Normal 0.0-2.0 [facility] Comment on above: Performed By: #### 5 7021-8 #### ANASTACIO Hodge ([id number]) [facility] ([facility]) [address] [place] [address] 39646 Eosinophils (Bld) [#/Vol] 0.26 x10*3/uL Normal 0.00-0.70 [facility] Comment on above: Performed By: #### 5 7021-8 #### ANASTACIO Hodge ([id number]) [facility] ([facility]) [address] [place] [address] 12140 Eosinophils/100 WBC (Bld) 2.0 % Normal 0.0-6.0 [facility] Comment on above: Performed By: #### 5 7021-8 #### ANASTACIO Hodge ([id number]) [facility] ([facility]) [address] [place] [address] 60035 Erythrocyte distribution width (RBC) [Ratio] 12.8 % Normal 11.5-14.5 [facility] Comment on above: Performed By: #### 5 7021-8 #### ANASTACIO Hodge ([id number]) [facility] ([facility]) [address] [place] [address] 73746 Hematocrit (Bld) [Volume fraction] 34.8 % Low 41.0-52.0 [facility] Comment on above: Performed By: #### 5 7021-8 #### ANASTACIO HAMMTZER L ([id number]) [facility] ([facility]) [address] [place] [address] 91994 Hemoglobin (Bld) [Mass/Vol] 11.8 g/dL Low 13.5-17.5 [facility] Comment on above: Performed By: #### 5 7021-8 #### ANASTACIO SCHMOTZER L ([id number]) [facility] ([facility]) [address] [place] [address] 26104 Immature granulocytes (Bld) [#/Vol] 0.10 x10*3/uL Normal 0.00-0.70 [facility] Comment on above: Performed By: #### 5 7021-8 #### ANASTACIO KENNYMOTZER L ([id number]) [facility] ([facility]) [address] [place] [address] 85663 Immature granulocytes/100 WBC (Bld) 0.8 % Normal 0.0-0.9 [facility] Comment on above: Result Comment: Brittany ture Granulocyte Count (IG) includes promyelocytes, myelocytes and metamyelocytes but does not include bands. Percent differential counts (%) should be interpreted in the context of the absolute cell counts (cells/UL). Performed By: #### 5 7021-8 #### ANASTACIO WOOD L ([id number]) [facility] ([facility]) [address] [place] [address]59[address] Lymphocytes (Bld) [#/Vol] 1.93 x10*3/uL Normal 1.20-4.80 [facility] Comment on above: Performed By: #### 5 7021-8 #### ANASTACIO HAMMTZER L ([id number]) [facility] ([facility]) [address] [place] [address] 18092 Lymphocytes/100 WBC (Bld) 14.7 % Normal 13.0-44.0 [facility] Comment on above: Performed By: #### 5 7021-8 #### ANASTACIO KENNYMOTZER L ([id number]) [facility] ([facility]) [address] [place] [address] MCH (RBC) [Entitic mass] 27.8 pg Normal 26.0-34.0 [facility] Comment on above: Performed By: #### 5 7021-8 #### ANASTACIO Hodge ([id number]) [facility] ([facility]) [address] [place] [address] MCHC (RBC) [Mass/Vol] 33.9 g/dL Normal 32.0-36.0 [facility] Comment on above: Performed By: #### 5 7021-8 #### ANASTACIO Hodge ([id number]) [facility] ([facility]) [address] [place] [address] MCV (RBC) [Entitic vol] 82 fL Normal 80-100 [facility] Comment on above: Performed By: #### 5 7021-8 #### ANASTACIO Hodge ([id number]) [facility] ([facility]) [address] [place] [address] Monocytes (Bld) [#/Vol] 1.09 x10*3/uL High 0.10-1.00 [facility] Comment on above: Performed By: #### 5 7021-8 #### ANASTACIO Hodge ([id number]) [facility] ([facility]) [address] [place] [address] Monocytes/100 WBC (Bld) 8.3 % Normal 2.0-10.0 [facility] Comment on above: Performed By: #### 5 7021-8 #### ANASTACIO Hodge ([id number]) [facility] ([facility]) [address] [place] [address] Neutrophils (Bld) [#/Vol] 9.66 x10*3/uL High 1.20-7.70 [facility] Comment on above: Result Comment: Perc ent differential counts (%) should be interpreted in the context of the absolute cell counts (cells/uL). Performed By: #### 5 7021-8 #### ANASTACIO Hodge ([id number]) [facility] ([facility]) [address] [place] [address] 61674 Neutrophils/100 WBC (Bld) 73.7 % Normal 40.0-80.0 [facility] Comment on above: Performed By: #### 5 7021-8 #### ANASTACIO Hodge ([id number]) [facility] ([facility]) [address] [place] [address] 86703 Nucleated RBC/100 WBC (Bld) [Ratio] 0.0 /100 WBCs Normal 0.0-0.0 [facility] Comment on above: Performed By: #### 5 7021-8 #### ANASTACIO Hodge ([id number]) [facility] ([facility]) [address] [place] [address] 73143 Platelets (Bld) [#/Vol] 296 x10*3/uL Normal 150-450 [facility] Comment on above: Performed By: #### 5 7021-8 #### ANASTACIO Hodge ([id number]) [facility] ([facility]) [address] [place] [address] 47069 RBC (Bld) [#/Vol] 4.25 x10*6/uL Low 4.50-5.90 [facility] Comment on above: Performed By: #### 5 7021-8 #### ANASTACIO Hodge ([id number]) [facility] ([facility]) [address] [place] [address] 53664 WBC (Bld) [#/Vol] 13.1 x10*3/uL High 4.4-11.3 [facility] Comment on above: Performed By: #### 5 7021-8 #### ANASTACIO Hodge ([id number]) [facility] ([facility]) [address] [place] [address] 03136 Magnesiumon 12-12-2023 Magnesium [Mass/Vol] 1.81 mg/dL 1.60 - 2.40 mg/dL [facility] Magnesium [Mass/Vol] 1.81 mg/dL Normal 1.60-2.40 [facility] Comment on above: Performed By: #### 1 9123-9 #### ANASTACIO Hodge ([id number]) [facility] ([facility]) [address] [place] [address] Magnesium [Mass/Vol]on 12-11 Interpretation and review of laboratory results Normal [facility] No Panel Informationon 12-11 [facility] ECG 12-LEADon 12-11-2023 ECG 12-LEAD Ventricular Rate 104 Atrial Rate 104 P-R Interval 154 QRS Duration 94 Q-T Interval 346 QTC Calculation(Bazett) 454 P [place] 43 R [place] 9 T [place] 27 QRS Count 17 Q Onset 216 P Onset 139 P Offset 196 T Offset 389 QTC Fredericia 415 Diagnosis Sinus tachycardia Minimal voltage criteria for LVH, may be normal variant Borderline ECG No previous ECGs available Confirmed by Dustin Lyman ([id number]) on 12/14/2023 2:58:33 PM Normal [facility] XR ABDOMEN 1 VIEWon 12-11-19 24 XR ABDOMEN 1 VIEW Interpreted By: Victoriano Warren and Liller Gregory STUDY: XR ABDOMEN 1 VIEW; 12/11/2023 12:18 pm INDICATION: Signs/Symptoms:Confi rm NG tube placement. COMPARISON: 12/10/2023 ACCESSION NUMBER(S): [id number] ORDERING CLINICIAN: CORRIE CAI FINDINGS: Interval placement of enteric tube which projects over the expected location of the gastric antrum/proximal duodenum. Similar gaseous distention of multiple loops of bowel when compared to prior exam measuring up to 4.7 cm. No evidence to suggest pneumoperitoneum. Visualized lungs are clear. No acute osseous injury. IMPRESSION: 1. Enteric tube projects over the expected location of the gastric antrum/proximal duodenum. 2. Similar gaseous distention of multiple loops of small bowel when compared to prior exam. I personally reviewed the images/study and I agree with the findings as stated above by resident physician, Dr. Benny Matamoros. The study was interpreted at [facility] in [facility]. MACRO: none Signed by: Victoriano Warren 12/11/2023 4:14 PM Dictation workstation: [id number] Normal [facility] XR ABDOMEN 1 VIEW Interpreted By: Victoriano Warren and Stephens Katherine STUDY: XR ABDOMEN 1 VIEW; 12/10/2023 11:52 pm INDICATION: Signs/Symptoms:c/f postop ileus. COMPARISON: Pelvic radiographs 12/08/2023 ACCESSION NUMBER(S): [id number] ORDERING CLINICIAN: ROXANNA BERMAN FINDINGS: Postsurgical changes noted from pelvic ring fusion with trans sacroiliac screws. Hardware is intact without perihardware fracture or lucency. Overall nonobstructive bowel gas pattern with gaseous distention of multiple loops of small bowel throughout the abdomen measuring up to 4.3 cm. Limited evaluation of pneumoperitoneum on supine imaging, however no gross evidence of free air is noted. Osseous structures demonstrate no acute bony changes. IMPRESSION: 1. Gaseous distention of multiple loops of bowel throughout the abdomen with overall nonobstructive bowel gas pattern. Findings compatible with postoperative ileus. 2. Postsurgical changes as described above. I personally reviewed the images/study and I agree with Leti Dumont DO's (president + publisher) findings as stated. This study was interpreted at [place], [place]. MACRO: None Signed by: Victoriano Warren 12/11/2023 11:13 AM Dictation workstation: [id number] Normal [facility] XR Abdomen Single viewon 1. Enteric tube projects over the expected location of the gastric antrum/proximal duodenum. 2. Similar gaseous distention of multiple loops of small bowel when compared to prior exam. I personally reviewed the images/study and I agree with the findings as stated above by resident physician, Dr. Benny Matamoros. The study was interpreted at [facility] in [facility]. MACRO: none Signed by: Victoriano Warren 12/11/2023 4:14 PM Dictation workstation: [id number] [facility]AL Interpreted By: Victoriano Warren and Liller Gregory STUDY: XR ABDOMEN 1 VIEW; 12/11/2023 12:18 pm INDICATION: Signs/Symptoms:Confi rm NG tube placement. COMPARISON: 12/10/2023 ACCESSION NUMBER(S): [id number] ORDERING CLINICIAN: CORRIE CAI FINDINGS: Interval placement of enteric tube which projects over the expected location of the gastric antrum/proximal duodenum. Similar gaseous distention of multiple loops of bowel when compared to prior exam measuring up to 4.7 cm. No evidence to suggest pneumoperitoneum. Visualized lungs are clear. No acute osseous injury. [facility] Laci Warren MD - 12/11/2023 Interpreted By: Victoriano Warren and Liller Gregory STUDY: XR ABDOMEN 1 VIEW; 12/11/2023 12:18 pm INDICATION: Signs/Symptoms:Confi rm NG tube placement. COMPARISON: 12/10/2023 ACCESSION NUMBER(S): [id number] ORDERING CLINICIAN: CORRIE CAI FINDINGS: Interval placement of enteric tube which projects over the expected location of the gastric antrum/proximal duodenum. Similar gaseous distention of multiple loops of bowel when compared to prior exam measuring up to 4.7 cm. No evidence to suggest pneumoperitoneum. Visualized lungs are clear. No acute osseous injury. IMPRESSION: 1. Enteric tube projects over the expected location of the gastric antrum/proximal duodenum. 2. Similar gaseous distention of multiple loops of small bowel when compared to prior exam. I personally reviewed the images/study and I agree with the findings as stated above by resident physician, Dr. Benny Matamoros. The study was interpreted at [facility] in [facility]. MACRO: none Signed by: Victoriano Warren 12/11/2023 4:14 PM Dictation workstation: [id number] [facility] Work Phone: [facility] Work Phone: Radiology Study observation (narrative) [facility] Work Phone: 1. Gaseous distention of multiple loops of bowel throughout the abdomen with overall nonobstructive bowel gas pattern. Findings compatible with postoperative ileus. 2. Postsurgical changes as described above. I personally reviewed the images/study and I agree with Leti Dumont DO's (president + publisher) findings as stated. This study was interpreted at [place], [place]. MACRO: None Signed by: Victoriano Warren 12/11/2023 11:13 AM Dictation workstation: [id number] MMODAL Interpreted By: Victoriano Warren and Stephens Katherine STUDY: XR ABDOMEN 1 VIEW; 12/10/2023 11:52 pm INDICATION: Signs/Symptoms:c/f postop ileus. COMPARISON: Pelvic radiographs 12/08/2023 ACCESSION NUMBER(S): [id number] ORDERING CLINICIAN: ROXANNA BERMAN FINDINGS: Postsurgical changes noted from pelvic ring fusion with trans sacroiliac screws. Hardware is intact without perihardware fracture or lucency. Overall nonobstructive bowel gas pattern with gaseous distention of multiple loops of small bowel throughout the abdomen measuring up to 4.3 cm. Limited evaluation of pneumoperitoneum on supine imaging, however no gross evidence of free air is noted. Osseous structures demonstrate no acute bony changes. MMODAL Laci Warren MD - 12/11/2023 Interpreted By: Victoriano Warren and Stephens Katherine STUDY: XR ABDOMEN 1 VIEW; 12/10/2023 11:52 pm INDICATION: Signs/Symptoms:c/f postop ileus. COMPARISON: Pelvic radiographs 12/08/2023 ACCESSION NUMBER(S): [id number] ORDERING CLINICIAN: ROXANNA BERMAN FINDINGS: Postsurgical changes noted from pelvic ring fusion with trans sacroiliac screws. Hardware is intact without perihardware fracture or lucency. Overall nonobstructive bowel gas pattern with gaseous distention of multiple loops of small bowel throughout the abdomen measuring up to 4.3 cm. Limited evaluation of pneumoperitoneum on supine imaging, however no gross evidence of free air is noted. Osseous structures demonstrate no acute bony changes. IMPRESSION: 1. Gaseous distention of multiple loops of bowel throughout the abdomen with overall nonobstructive bowel gas pattern. Findings compatible with postoperative ileus. 2. Postsurgical changes as described above. I personally reviewed the images/study and I agree with Leti Dumont DO's (president + publisher) findings as stated. This study was interpreted at [place], [place]. MACRO: None Signed by: Victoriano Warren 12/11/2023 11:13 AM Dictation workstation: [id number] [facility] Work Phone: XR Abdomen Single viewOrdere d By: Laci Warren on 12-11-2023 [facility] Work Phone: Basic metabolic 2000 panelon 12-10-2023 Anion gap [Moles/Vol] 14 mmol/L Normal 10-20 [facility] Comment on above: Performed By: #### 2 4321-2 #### ANASTACIO Hodge ([id number]) [facility] ([facility]) [address] [place] [address] 13274 Calcium [Mass/Vol] 9.3 mg/dL Normal 8.6-10.6 [facility] Comment on above: Performed By: #### 2 4321-2 #### ANASTACIO WOOD L ([id number]) [facility] ([facility]) [address] [place] [address] 92068 Chloride [Moles/Vol] 95 mmol/L Low 98-107 [facility] Comment on above: Performed By: #### 2 4321-2 #### ANASTACIO WOOD L ([id number]) [facility] ([facility]) [address] [place] [address] 07197 CO2 [Moles/Vol] 31 mmol/L Normal 21-32 [facility] Comment on above: Performed By: #### 2 4321-2 #### ANASTACIO WOOD L ([id number]) [facility] ([facility]) [address] [place] [address] 08413 Creatinine [Mass/Vol] 1.01 mg/dL Normal 0.50-1.30 [facility] Comment on above: Performed By: #### 2 4321-2 #### ANASTACIO WOOD L ([id number]) [facility] ([facility]) [address] [place] [address] 14446 GFR/1.73 sq M.predicted MDRD (S/P/Bld) [Vol rate/Area] mL/min/{1.73_m2} Normal >60 [facility] Comment on above: Result Comment: Calc ulations of estimated GFR are performed using the 2020 CKD-EPI Study Refit equation without the race variable for the IDMS-Traceable creatinine methods. https://jasn.asnjournals.org/content//ASN.37941 90393 Performed By: #### 2 4321-2 #### ANASTACIO Hodge ([id number]) [facility] ([facility]) [address] [place] [address] 64661 Glucose [Mass/Vol] 109 mg/dL High 74-99 [facility] Comment on above: Performed By: #### 2 4321-2 #### ANASTACIO Hodge ([id number]) [facility] ([facility]) [address] [place] [address] 04697 Potassium [Moles/Vol] 4.2 mmol/L Normal 3.5-5.3 [facility] Comment on above: Performed By: #### 2 4321-2 #### ANASTACIO Hodge ([id number]) [facility] ([facility]) [address] [place] [address] 16346 Sodium [Moles/Vol] 136 mmol/L Normal 136-145 [facility] Comment on above: Performed By: #### 2 4321-2 #### ANASTACIO Hodge ([id number]) [facility] ([facility]) [address] [place] [address] 85650 Urea nitrogen [Mass/Vol] 12 mg/dL Normal 6-23 [facility] Comment on above: Performed By: #### 2 4321-2 #### ANASTACIO Hodge ([id number]) [facility] ([facility]) [address] [place] [address] 15033 Anion gap [Moles/Vol] 14 mmol/L 10 - 2 0 mmol/L [facility] Calcium [Mass/Vol] 9.3 mg/dL 8.6 - 10. 6 mg/dL [facility] Chloride [Moles/Vol] 95 mmol/L Low 98 - 10 7 mmol/L [facility] CO2 [Moles/Vol] 31 mmol/L 21 - 32 mmol/L [facility] Creatinine [Mass/Vol] 1.01 mg/dL 0.50 - 1.30 mg/dL [facility] eGFR - PINF [facility] Comment on above: Calculations of cris mated GFR are performed using the 2020 CKD-EPI Study Refit equation without the race variable for the IDMS-Traceable creatinine methods. https://jasn.asnjournals.org/content//ASN.27649 55888 Glucose [Mass/Vol] 109 mg/dL High 74 - 99 mg/dL [facility] Interpretation and review of laboratory results Abnormal [facility] Potassium [Moles/Vol] 4.2 mmol/L 3.5 - 5.3 mmol/L [facility] Sodium [Moles/Vol] 136 mmol/L 136 - 145 mmol/L [facility] Urea nitrogen [Mass/Vol] 12 mg/dL 6 - 23 mg/dL [facility] CBC W Auto Differential pane l (Bld)on 12-10-2023 Basophils (Bld) [#/Vol] 0.08 x10*3/uL Normal 0.00-0.10 [facility] Comment on above: Performed By: #### 5 7021-8 #### ANASTACIO KENNYMOTZER L ([id number]) [facility] ([facility]) [address] [place] [address] Basophils/100 WBC (Bld) 0.7 % Normal 0.0-2.0 [facility] Comment on above: Performed By: #### 5 7021-8 #### ANASTACIO SCHMOTZER L ([id number]) [facility] ([facility]) [address] [place] [address] Eosinophils (Bld) [#/Vol] 0.17 x10*3/uL Normal 0.00-0.70 [facility] Comment on above: Performed By: #### 5 7021-8 #### ANASTACIO SCHMOTZER L ([id number]) [facility] ([facility]) [address] [place] [address] Eosinophils/100 WBC (Bld) 1.4 % Normal 0.0-6.0 [facility] Comment on above: Performed By: #### 5 7021-8 #### ANASTACIO Hodge ([id number]) [facility] ([facility]) [address] [place] [address] Erythrocyte distribution width (RBC) [Ratio] 13.1 % Normal 11.5-14.5 [facility] Comment on above: Performed By: #### 5 7021-8 #### ANASTACIO Hodge ([id number]) [facility] ([facility]) [address] [place] [address] Hematocrit (Bld) [Volume fraction] 40.2 % Low 41.0-52.0 [facility] Comment on above: Performed By: #### 5 7021-8 #### ANASTACIO Hodge ([id number]) [facility] ([facility]) [address] [place] [address] Hemoglobin (Bld) [Mass/Vol] 12.9 g/dL Low 13.5-17.5 [facility] Comment on above: Performed By: #### 5 7021-8 #### ANASTACIO Hodge ([id number]) [facility] ([facility]) [address] [place] [address] Immature granulocytes (Bld) [#/Vol] 0.11 x10*3/uL Normal 0.00-0.70 [facility] Comment on above: Performed By: #### 5 7021-8 #### ANASTACIO Hodge ([id number]) [facility] ([facility]) [address] [place] [address] Immature granulocytes/100 WBC (Bld) 0.9 % Normal 0.0-0.9 [facility] Comment on above: Result Comment: Brittany ture Granulocyte Count (IG) includes promyelocytes, myelocytes and metamyelocytes but does not include bands. Percent differential counts (%) should be interpreted in the context of the absolute cell counts (cells/UL). Performed By: #### 5 7021-8 #### ANASTACIO Hodge ([id number]) [facility] ([facility]) [address] [place] [address] Lymphocytes (Bld) [#/Vol] 1.82 x10*3/uL Normal 1.20-4.80 [facility] Comment on above: Performed By: #### 5 7021-8 #### ANASTACIO Hodge ([id number]) [facility] ([facility]) [address] [place] [address] Lymphocytes/100 WBC (Bld) 15.4 % Normal 13.0-44.0 [facility] Comment on above: Performed By: #### 5 7021-8 #### ANASTACIO Hodge ([id number]) [facility] ([facility]) [address] [place] [address]6299 MCH (RBC) [Entitic mass] 27.6 pg Normal 26.0-34.0 [facility] Comment on above: Performed By: #### 5 7021-8 #### ANASTACIO Hodge ([id number]) [facility] ([facility]) [address] [place] [address] MCHC (RBC) [Mass/Vol] 32.1 g/dL Normal 32.0-36.0 [facility] Comment on above: Performed By: #### 5 7021-8 #### ANASTACIO Hodge ([id number]) [facility] ([facility]) [address] [place] [address]89 MCV (RBC) [Entitic vol] 86 fL Normal 80-100 [facility] Comment on above: Performed By: #### 5 7021-8 #### ANASTACIO Hodge ([id number]) [facility] ([facility]) [address] [place] [address] Monocytes (Bld) [#/Vol] 0.86 x10*3/uL Normal 0.10-1.00 [facility] Comment on above: Performed By: #### 5 7021-8 #### ANASTACIO Hodge ([id number]) [facility] ([facility]) [address] [place] [address]991 Monocytes/100 WBC (Bld) 7.3 % Normal 2.0-10.0 [facility] Comment on above: Performed By: #### 5 7021-8 #### ANASTACIO Hodge ([id number]) [facility] ([facility]) [address] [place] [address] Neutrophils (Bld) [#/Vol] 8.78 x10*3/uL High 1.20-7.70 [facility] Comment on above: Result Comment: Perc ent differential counts (%) should be interpreted in the context of the absolute cell counts (cells/uL). Performed By: #### 5 7021-8 #### ANASTACIO Hodge ([id number]) [facility] ([facility]) [address] [place] [address] Neutrophils/100 WBC (Bld) 74.3 % Normal 40.0-80.0 [facility] Comment on above: Performed By: #### 5 7021-8 #### ANASTACIO Hodge ([id number]) [facility] ([facility]) [address] [place] [address] 65[address] Nucleated RBC/100 WBC (Bld) [Ratio] 0.0 /100 WBCs Normal 0.0-0.0 [facility] Comment on above: Performed By: #### 5 7021-8 #### ANASTACIO oHdge ([id number]) [facility] ([facility]) [address] [place] [address] Platelets (Bld) [#/Vol] 286 x10*3/uL Normal 150-450 [facility] Comment on above: Performed By: #### 5 7021-8 #### ANASTACIO Hodge ([id number]) [facility] ([facility]) [address] [place] [address]1339 RBC (Bld) [#/Vol] 4.67 x10*6/uL Normal 4.50-5.90 [facility] Comment on above: Performed By: #### 5 7021-8 #### ANASTACIO Hodge ([id number]) [facility] ([facility]) [address] [place] [address] 35951 WBC (Bld) [#/Vol] 11.8 x10*3/uL High 4.4-11.3 [facility] Comment on above: Performed By: #### 5 7021-8 #### ANASTACIO Hodge ([id number]) [facility] ([facility]) [address] [place] [address] Basophils (Bld) [#/Vol] 0.08 10*3/uL [facility] Basophils/100 WBC (Bld) 0.7 % 0.0 - 2.0 % [facility] Eosinophils (Bld) [#/Vol] 0.17 10*3/uL [facility] Eosinophils/100 WBC (Bld) 1.4 % 0.0 - 6.0 % [facility] Erythrocyte distribution width (RBC) [Ratio] 13.1 % 11.5 - 14.5 % [facility] Hematocrit (Bld) [Volume fraction] 40.2 % Low 41.0 - 52.0 % [facility] Hemoglobin (Bld) [Mass/Vol] 12.9 g/dL Low 13.5 - 17.5 g/dL [facility] Immature granulocytes (Bld) [#/Vol] 0.11 10*3/uL [facility] Immature granulocytes/100 WBC (Bld) 0.9 % 0.0 - 0.9 % [facility] Comment on above: Immature Granulocyte Count (IG) includes promyelocytes, myelocytes and metamyelocytes but does not include bands. Percent differential counts (%) should be interpreted in the context of the absolute cell counts (cells/UL). Interpretation and review of laboratory results Abnormal [facility] Lymphocytes (Bld) [#/Vol] 1.82 10*3/uL [facility] Lymphocytes/100 WBC (Bld) 15.4 % 13.0 - 44.0 % [facility] MCH (RBC) [Entitic mass] 27.6 pg 26.0 - 34.0 pg [facility] MCHC (RBC) [Mass/Vol] 32.1 g/dL 32.0 - 36.0 g/dL [facility] MCV (RBC) [Entitic vol] 86 fL 80 - 100 fL [facility] Monocytes (Bld) [#/Vol] 0.86 10*3/uL [facility] Monocytes/100 WBC (Bld) 7.3 % 2.0 - 10.0 % [facility] Neutrophils (Bld) [#/Vol] 8.78 10*3/uL [facility] Comment on above: Percent differential counts (%) should be interpreted in the context of the absolute cell counts (cells/uL). Neutrophils/100 WBC (Bld) 74.3 % 40.0 - 80.0 % [facility] Nucleated RBC/100 WBC (Bld) [Ratio] 0.0 % [facility] Platelets (Bld) [#/Vol] 286 10*3/uL [facility] RBC (Bld) [#/Vol] 4.67 10*6/uL [facility] WBC (Bld) [#/Vol] 11.8 10*3/uL [facility] XR Abdomen Single viewon Radiology Study observation (narrative) [facility] Work Phone: Blood type and Indirect anti body screen panel (Bld)on 12-08-2023 ABO group Nom (Bld) O [facility] Blood group antibody screen Ql Negative [facility] D Ag Ql (Bld) Positive [facility] ABO group Nom (Bld) O Normal [facility] Comment on above: Performed By: #### 3 4532-2 #### ANASTACIO Hodge ([id number]) [facility] ([facility]) [address] [place] [address] Blood group antibody screen Ql Negative Normal [facility] Comment on above: Performed By: #### 3 4532-2 #### ANASTACIO Hodge ([id number]) [facility] ([facility]) [address] [place] [address] D Ag Ql (Bld) Positive [facility] Comment on above: Performed By: #### 3 4532-2 #### ANASTACIO Hodge ([id number]) [facility] ([facility]) [address] [place] [address] FL FLUORO IMAGES NO CHARGEon 05-02-2024 FL FLUORO IMAGES NO CHARGE These images are not reportable by radiology and will not be interpreted by Radiologists. [facility] VERAB/VERIFY ABORHon 024 ABO group Nom (Bld) O [facility] Comment on above: Performed By: #### V ERAB ####ANASTACIO WOOD L ([id number])[facility] ([facility])[address] [place] [address] D Ag Ql (Bld) Positive [facility] Comment on above: Performed By: #### V ERAB ####ANASTACIO WOOD L ([id number])[facility] ([facility])[address] [place] [address] XR PELVIS 1-2 VIEWSon 2023 XR PELVIS 1-2 VIEWS Interpreted By: Sushma Black, STUDY: Pelvis, 2 views. INDICATION: Signs/Symptoms:COUNT NOT DONE. RULE OUT ANY RETAINED SURGICAL ITEMS. MP Vizcaino #[id number]. COMPARISON: 11/30/2023. ACCESSION NUMBER(S): [id number] ORDERING CLINICIAN: ADAM NAVARRO FINDINGS: No unexpected surgical instrument is visualized within the pelvis. Anterior and posterior pelvic ring fusion changes noted with trans sacral trans iliac screws and plate and screws across the pubic symphysis. IMPRESSION: 1. No unexpected surgical instrument is visualized within the pelvis. MACRO: None. Signed by: Sushma Black 12/08/2023 2:12 PM Dictation workstation: [id number] [facility] XR Pelvis 1 or 2 Viewson 1. No unexpected surgical instrument is visualized within the pelvis. MACRO: None. Signed by: Sushma Black 12/08/2023 2:12 PM Dictation workstation: [id number] MMODAL Interpreted By: Sushma Black, STUDY: Pelvis, 2 views. INDICATION: Signs/Symptoms:COUNT NOT DONE. RULE OUT ANY RETAINED SURGICAL ITEMS. MP HURTADO 10 #[id number]. COMPARISON: 11/30/2023. ACCESSION NUMBER(S): [id number] ORDERING CLINICIAN: ADAM NAVARRO FINDINGS: No unexpected surgical instrument is visualized within the pelvis. Anterior and posterior pelvic ring fusion changes noted with trans sacral trans iliac screws and plate and screws across the pubic symphysis. MMODAL Sushma Black MD - 12/08/2023 Interpreted By: Sushma Black, STUDY: Pelvis, 2 views. INDICATION: Signs/Symptoms:COUNT NOT DONE. RULE OUT ANY RETAINED SURGICAL ITEMS. MP OR 10 #[id number]. COMPARISON: 11/30/2023. ACCESSION NUMBER(S): [id number] ORDERING CLINICIAN: ADAM NAVARRO FINDINGS: No unexpected surgical instrument is visualized within the pelvis. Anterior and posterior pelvic ring fusion changes noted with trans sacral trans iliac screws and plate and screws across the pubic symphysis. IMPRESSION: 1. No unexpected surgical instrument is visualized within the pelvis. MACRO: None. Signed by: Sushma Black 12/08/2023 2:12 PM Dictation workstation: [id number] [facility] Work Phone: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 Shearer NEUT # 4.4 103/ul Normal 1.4-6.5 [facility] Comment on above: Performed By: #### B MP, TSH #### [facility] [address] [place] [address] Dr. Fazal Shearer Neutrophils/100 WBC (Bld) 58.5 % Normal 43.0-75.0 [facility] Comment on above: Performed By: #### B MP, TSH #### [facility] [address] [place] [address] Dr. Fazal Shearer Platelet mean volume (Bld) [Entitic vol] 9.1 fL Critically low 9.5-13.5 [facility] Comment on above: Performed By: #### B MP, TSH #### [facility] [address] [place] [address] Dr. Fazal Shearer PLT 245 103/ul Normal 150-450 [facility] Comment on above: Performed By: #### B MP, TSH #### [facility] [address] [place] [address] Dr. Fazal Shearer RBC 5.34 106/ul Normal 4.70-6.10 [facility] Comment on above: Performed By: #### B MP, TSH #### [facility] [address] [place] [address] Dr. Fazal Seharer WBC 7.5 103/ul Normal 4.0-11.0 [facility] Comment on above: Performed By: #### B MP, TSH #### [facility] [address] [address] [address] Fazal Shearer PROF CHEM 8 (BAS METB)on Anion gap [Moles/Vol] 9.3 mmol/L Normal [facility] Comment on above: Performed By: #### B MP, TSH #### [facility] [address] [place] [address] Dr. Fazal Shearer Calcium [Mass/Vol] 9.2 mg/dL Normal 8.5-10.1 [facility] Comment on above: Performed By: #### B MP, TSH #### [facility] [address] [place] [address] Dr. Fazal Shearer Chloride [Moles/Vol] 105 mmol/L Normal 98-107 [facility] Comment on above: Performed By: #### B MP, TSH #### [facility] [address] [place] [address] Dr. Fazal Shearer CO2 [Moles/Vol] 31.9 mmol/L Normal 21.0-32.0 [facility] Comment on above: Performed By: #### B MP, TSH #### [facility] [address] [place] [address] Dr. Fazal Shearer Creatinine [Mass/Vol] 1.04 mg/dL Normal 0.70-1.30 [facility] Comment on above: Performed By: #### B MP, TSH #### [facility] [address] [place] [address] Dr. Fazal Shearer EGFR-AF CONGOLESE >60 Normal >=60 [facility] Comment on above: Performed By: #### B MP, TSH #### [facility] [address] [place] [address] Dr. Fazal Shearer EGFR-NON AF CONGOLESE >60 Normal >=60 [facility] Comment on above: Performed By: #### B MP, TSH #### [facility] [address] [place] [address] Dr. Fazal Shearer Glucose [Mass/Vol] 102 mg/dL Normal 74-106 [facility] Comment on above: Performed By: #### B MP, TSH #### [facility] [address] [place] [address] Dr. Fazal Shearer Potassium [Moles/Vol] 5.2 mmol/L Critically high 3.5-5.1 [facility] Comment on above: Performed By: #### B MP, TSH #### [facility] [address] [place] [address] Dr. Fazal Shearer Sodium [Moles/Vol] 141 mmol/L Normal 136-145 [facility] Comment on above: Performed By: #### B MP, TSH #### [facility] [address] [place] [address] Dr. Fazal Shearer Urea nitrogen [Mass/Vol] 15.0 mg/dL Normal 7.0-18.0 [facility] Comment on above: Performed By: #### B MP, TSH #### [facility] [address] [place] [address] Dr. Fazal Shearer Urea nitrogen/Creatinine [Mass ratio] 14.4 mg/mg Normal [facility] Comment on above: Performed By: #### B MP, TSH #### [facility] [address] [place] [address] Dr. Fazal Shearer TSHon 07-06-2022 TSH 1.300 uIU/mL Normal 0.358-3.740 [facility] Comment on above: Performed By: #### B MP, TSH #### [facility] [address] [place] [address] Dr. Fazal Shearer CBC AUTO DIFFon 03-31-2022 BASO # 0.1 103/ul Normal 0.0-0.1 [facility] Comment on above: Performed By: #### B MP, TSH #### [facility] [address] [place] [address] Dr. Fazal Shearer Basophils/100 WBC (Bld) 0.9 % Normal 0.2-2.0 [facility] Comment on above: Performed By: #### B MP, TSH #### [facility] [address] [place] [address] Dr. Fazal Shearer EO # 0.2 103/ul Normal 0.0-0.7 [facility] Comment on above: Performed By: #### B MP, TSH #### [facility] [address] [place] [address] Dr. Fazal Shearer Eosinophils/100 WBC (Bld) 3.2 % Normal 0.9-7.0 [facility] Comment on above: Performed By: #### B CATHY, TSH #### [facility] [address] [place] [address] Dr. Fazal Shearer Erythrocyte distribution width (RBC) [Ratio] 12.2 % Normal 11.0-15.0 [facility] Comment on above: Performed By: #### B CATHY, TSH #### [facility] [address] [place] [address] Dr. Fazal Shearer Hematocrit (Bld) [Volume fraction] 41.3 % Critically low 42.0-54.0 [facility] Comment on above: Performed By: #### B CATHY, TSH #### [facility] [address] [place] [address] Dr. Fazal Shearer Hemoglobin (Bld) [Mass/Vol] 14.1 g/dL Normal 14.0-18.0 [facility] Comment on above: Performed By: #### B CATHY, TSH #### [facility] [address] [place] [address] Dr. Fazal Shearer IG # 0.05 10e3/ul Critically high 0.00-0.03 [facility] Comment on above: Performed By: #### B CATHY, TSH #### [facility] [address] [place] [address] Dr. Fazal Shearer IG % 0.9 % Critically high 0.0-0.5 [facility] Comment on above: Performed By: #### B MP, TSH #### [facility] [address] [place] [address] Dr. Fazal Shearer LYMPH # 2.0 103/ul Normal 1.2-3.8 The [facility] Comment on above: Performed By: #### B CATHY, TSH #### [facility] [address] [place] [address] Dr. Fazal Shearer Lymphocytes/100 WBC (Bld) 33.5 % Normal 20.5-60.0 [facility] Comment on above: Performed By: #### B MP, TSH #### [facility] [address] [place] [address] Dr. Fazal Shearer MANUAL DIFF REQ NO Normal [facility] Comment on above: Performed By: #### B MP, TSH #### [facility] [address] [place] [address] Dr. Fazal Shearer MCH (RBC) [Entitic mass] 29.3 pg Normal 25.9-34.0 [facility] Comment on above: Performed By: #### B CATHY, TSH #### [facility] [address] [place] [address] Dr. Fazal Shearer MCHC (RBC) [Mass/Vol] 34.1 g/dL Normal 29.9-35.2 [facility] Comment on above: Performed By: #### B CATHY, TSH #### [facility] [address] [place] [address] Dr. Fazal Shearer MCV (RBC) [Entitic vol] 85.9 fL Normal 80.0-94.0 [facility] Comment on above: Performed By: #### B CATHY, TSH #### [facility] [address] [place] [address] Dr. Fazal Shearer MONO # 0.5 103/ul Normal 0.3-0.8 [facility] Comment on above: Performed By: #### B CATHY, TSH #### [facility] [address] [place] [address] Dr. Fazal Shearer Monocytes/100 WBC (Bld) 8.4 % Normal 1.7-12.0 [facility] Comment on above: Performed By: #### B MP, TSH #### [facility] [address] [place] [address] Dr. Fazal Shearer NEUT # 3.1 103/ul Normal 1.4-6.5 [facility] Comment on above: Performed By: #### B MP, TSH #### [facility] [address] [address] [address] Fazal Shearer Neutrophils/100 WBC (Bld) 53.1 % Normal 43.0-75.0 [facility] Comment on above: Performed By: #### B MP, TSH #### [facility] [address] [address] [address] Fazal Shearer Platelet mean volume (Bld) [Entitic vol] 9.3 fL Critically low 9.5-13.5 [facility] Comment on above: Performed By: #### B MP, TSH #### [facility] [address] [address] [address] Fazal Shearer PLT 248 103/ul Normal 150-450 [facility] Comment on above: Performed By: #### B CATHY, TSH #### [facility] [address] [address] [address] Fazal Shearer RBC 4.81 106/ul Normal 4.70-6.10 [facility] Comment on above: Performed By: #### B CATHY, TSH #### [facility] [address] [address] [address] Fazal Shearer WBC 5.9 103/ul Normal 4.0-11.0 [facility] Comment on above: Performed By: #### B CATHY, TSH #### [facility] [address] [address] [address] Fazal Shearer ECHOCARDIO M/2D COMPLETEon 0 03-31-2022 ECHOCARDIO M/2D COMPLETE Patient: PROSPER MILIAN Exam Date: 03/31/2022 : 1975 Gender:M Ordering : DR CHANTAL MART M.D. Admission #: [id number] Family : Order #: [id number] CLICK HERE TO VIEW EXAM ECHOCARDIOGRAM REPORT [...] Mei M.D. on 03/31/2022 at 19:40 Normal [facility] PROF CHEM 8 (BAS METB)on Anion gap [Moles/Vol] 7.8 mmol/L Normal [facility] Comment on above: Performed By: #### B CATHY, TSH #### [facility] [address] [place] [address] Dr. Fazal Shearer Calcium [Mass/Vol] 8.4 mg/dL Critically low 8.5-10.1 Th e [facility] Comment on above: Performed By: #### B CATHY, TSH #### [facility] [address] [address] [address] Fazal Shearer Chloride [Moles/Vol] 104 mmol/L Normal 98-107 [facility] Comment on above: Performed By: #### B CATHY, TSH #### [facility] [address] [address] [address] Fazal Shearer CO2 [Moles/Vol] 30.3 mmol/L Normal 21.0-32.0 [facility] Comment on above: Performed By: #### B MP, TSH #### [facility] [address] [place] [address] Dr. Fazal Shearer Creatinine [Mass/Vol] 0.99 mg/dL Normal 0.70-1.30 [facility] Comment on above: Performed By: #### B MP, TSH #### [facility] [address] [address] [address] Fazal Shearer EGFR-AF CONGOLESE >60 Normal >=60 [facility] Comment on above: Performed By: #### B MP, TSH #### [facility] [address] [place] [address] Dr. Fazal Shearer EGFR-NON AF [place]ESE >60 Normal >=60 [facility] Comment on above: Performed By: #### B MP, TSH #### [facility] [address] [place] [address] Dr. Fazal Shearer Glucose [Mass/Vol] 103 mg/dL Normal 74-106 [facility] Comment on above: Performed By: #### B MP, TSH #### [facility] [address] [place] [address] Dr. Fazal Shearer Potassium [Moles/Vol] 4.1 mmol/L Normal 3.5-5.1 [facility] Comment on above: Performed By: #### B MP, TSH #### [facility] [address] [place] [address] Dr. Fazal Shearer Sodium [Moles/Vol] 138 mmol/L Normal 136-145 [facility] Comment on above: Performed By: #### B MP, TSH #### [facility] [address] [address] [address] Fazal Shearer Urea nitrogen [Mass/Vol] 17.0 mg/dL Normal 7.0-18.0 [facility] Comment on above: Performed By: #### B MP, TSH #### [facility] [address] [place] [address] Dr. Fazal Shearer Urea nitrogen/Creatinine [Mass ratio] 17.2 mg/mg Normal [facility] Comment on above: Performed By: #### B MP, TSH #### [facility] [address] [place], [place] [address] Dr. Fazal Shearer TSHon 03-31-2022 TSH 0.867 uIU/mL Normal 0.358-3.740 [facility] Comment on above: Performed By: #### B MP, TSH #### [facility] [address] [place], [place] [address] LUMBAR SPINE W CONTRASTOr dered By: Hamilton Elder on 02-26-2021 L5/S1 moderate bilateral neuroforaminal narrowing [...] mm posterior listhesis of L5 on S1. [employer] Work Phone: [place], [facility] Incoming Radiant Results From [employer] - 02/26/2021 10:26 AM EDT IMPRESSION: L5/S1 [...] mm posterior listhesis of L5 on S1. [employer] Work Phone: IR LUMBAR PUNCTURE FOR MYELO GRAM CTOrdered By: Hamilton Elder on 02-26-2021 1. Successful fluoroscopy-guided myelogram by injection of contrast in the intrathecal sac under fluoroscopic imaging. 2. Both cinematic and spot fluoroscopy images were obtained. Contrast is seen to traverse the lumbar spine. There is no significant canal stenosis. Bilateral neuroforamina and nerve sleeves are seen. HISTORY: PROSPER MILIAN is a Male of 45 years age, [...] Please see CT dictation for full details. [employer] Phone: [place], [place] Incoming Radiant Results From [employer] - 02/26/2021 11:13 AM EDT IMPRESSION: 1. Successful fluoroscopy-guided myelogram by injection of contrast in the intrathecal sac under fluoroscopic imaging. 2. Both cinematic and spot fluoroscopy images were obtained. Contrast is seen to traverse the lumbar spine. There is no significant canal stenosis. Bilateral neuroforamina and nerve sleeves are seen. HISTORY: PROSPER MILIAN is a Male of 45 years age, [...] Please see CT dictation for full details. [employer] Phone: No Panel InformationOrdered By: Hamilton Elder on 02-26-2021 [employer] Phone: [employer] Phone: CT LUMBAR SPINE W CONTRASTon 02-25-2021 [...] Shun Shah MD 02/26/21 Final result Normal [facility] IR LUMBAR PUNCTURE FOR MYELO GRAM CTon 02-25-2021 IR LUMBAR PUNCTURE FOR MYELOGRAM CT IMPRESSION: 1. Successful fluoroscopy-guided myelogram by injection of contrast in the intrathecal sac under fluoroscopic imaging. 2. Both cinematic and spot fluoroscopy images were obtained. Contrast is seen to traverse the lumbar spine. There is no significant canal stenosis. Bilateral neuroforamina and nerve sleeves are seen. HISTORY: PROSPER IMLIAN is a Male of 45 years age, [...] Shun Shah MD 02/26/21 Final result Normal [facility] Basic Metabolic Panelon 02-05 Anion gap [Moles/Vol] 10 mmol/L Normal 9-15 [facility] Comment on above: Performed By: #### B MP #### [facility] [address] [facility] [address] Calcium [Mass/Vol] 9.3 mg/dL Normal 8.5-9.9 [facility] Comment on above: Performed By: #### B MP #### [facility] [address] [place] [address] Chloride [Moles/Vol] 102 mmol/L Normal 95-107 [facility] Comment on above: Performed By: #### B MP #### [facility] [address] [place] [address] CO2 [Moles/Vol] 27 mmol/L Normal 20-31 [facility] Comment on above: Performed By: #### B MP #### [facility] [address] [place] [address] Creatinine [Mass/Vol] 0.83 mg/dL Normal 0.70-1.20 [facility] Comment on above: Performed By: #### B MP #### [facility] [address] [place] [address] GFR >60.0 Normal >60 [facility] Comment on above: Result Comment: >60 mL/min/1.73m2 EGFR, calc. for ages 18 and older using the MDRD formula (not corrected for weight), is valid for stable renal function. Performed By: #### B MP #### [facility] [address] [place] [address] GFR/1.73 sq M.predicted among blacks MDRD (S/P/Bld) [Vol rate/Area] mL/min/{1.73_m2} Normal >60 [facility] Comment on above: Result Comment: >60 mL/min/1.73m2 EGFR, calc. for ages 18 and older using the MDRD formula (not corrected for weight), is valid for stable renal function. Performed By: #### B MP #### [facility] [address] [place] [address] Glucose [Mass/Vol] 96 mg/dL Normal 70-99 [facility] Comment on above: Performed By: #### B MP #### [facility] [address] [place] [address] Potassium [Moles/Vol] 3.8 mmol/L Normal 3.4-4.9 [facility] Comment on above: Performed By: #### B MP #### [facility] [address] [place] [address] Sodium [Moles/Vol] 139 mmol/L Normal 135-144 [facility] Comment on above: Performed By: #### B MP #### [facility] [address] [place] [address] Urea nitrogen [Mass/Vol] 13 mg/dL Normal 6-20 [facility] Comment on above: Performed By: #### B MP #### [facility] [address] [place] [address] CBC With Platelet No Differe ntialon 02-19-2021 Erythrocyte distribution width (RBC) [Ratio] 12.9 % Normal 11.5-14.5 [facility] Comment on above: Performed By: #### C BCND #### [facility] [address] [place] [address] Hematocrit (Bld) [Volume fraction] 45.5 % Normal 42.0-52.0 [facility] Comment on above: Performed By: #### C BCND #### [facility] [address] [place] [address] Hemoglobin (Bld) [Mass/Vol] 15.3 g/dL Normal 14.0-18.0 [facility] Comment on above: Performed By: #### C BCND #### [facility] [address] [place] [address] MCH (RBC) [Entitic mass] 28.7 pg Normal 27.0-31.3 [facility] Comment on above: Performed By: #### C BCND #### [facility] [address] [place] [address] MCHC 33.7 % Normal 33.0-37.0 [facility] Comment on above: Performed By: #### C BCND #### [facility] [address] [place] [address] MCV (RBC) [Entitic vol] 85.4 fL Normal 80.0-100.0 [facility] Comment on above: Performed By: #### C BCND #### [facility] [address] [place] [address] Platelets (Bld) [#/Vol] 259 10*3/uL Normal 130-400 [facility] Comment on above: Performed By: #### C BCND #### [facility] [address] [place] [address] RBC (Bld) [#/Vol] 5.33 10*6/uL Normal 4.70-6.10 [facility] Comment on above: Performed By: #### C BCND #### [facility] [address] [place] [address] WBC (Bld) [#/Vol] 6.2 10*3/uL Normal 4.8-10.8 [facility] Comment on above: Performed By: #### C BCND #### [facility] [address] [place] [address] Prothrombin Timeon 1 INR Coag (PPP) [Relative time] 1.0 {INR} Normal [facility] Comment on above: Performed By: #### P T #### [facility] [address] [place] [address] PT Coag (PPP) [Time] 13.2 s Normal 12.3-14.9 [facility] Comment on above: Performed By: #### P T #### [facility] [address] [place] [address] Vital Signs Date Time Vital Sign Value Performing Clinician Facility 12-21-2023 08:13-0400 Body temperature 97.5 [degF] Adam Navarro MD Work Phone: [facility] 12-21-2023 08:13-0400 Diastolic blood pressure 80 mm[Hg] Adam Navarro MD Work Phone: [facility] 12-21-2023 08:13-0400 Heart rate 85 /min Adam Navarro MD Work Phone: [facility] 12-21-2023 08:13-0400 Respiratory rate 16 /min Adam Navarro MD Work Phone: [facility] 12-21-2023 08:13-0400 SaO2% (BldA) [Mass fraction] 97 % Adam Navarro MD Work Phone: [facility] 12-21-2023 08:13-0400 Systolic blood pressure 119 mm[Hg] Adam Navarro MD Work Phone: [facility] 12-11-2023 08:33-0400 Body height 180.3 cm Adam Navarro MD Work Phone: [facility] 12-11-2023 08:33-0400 Body mass index (BMI) [Ratio] 38.76 kg/m2 Adam Navarro MD Work Phone: [facility] 12-11-2023 08:33-0400 Body weight 126 kg Adam Navarro MD Work Phone: [facility] 11-30-2023 13:53-0400 Body height 180.3 cm Adam Navarro MD Work Phone: [facility] 11-30-2023 13:53-0400 Body mass index (BMI) [Ratio] 37.66 kg/m2 Adam Navarro MD Work Phone: [facility] 11-30-2023 13:53-0400 Body weight 122.47 kg Adam Navarro MD Work Phone: [facility] 09-19-2023 11:45-0500 Body height 182.88 cm Chantal Mart Other [employer] Other 09-19-2023 11:45-0500 Body mass index (BMI) [Ratio] 37.29 kg/m2 Chantal Mart Other [employer] Other 09-19-2023 11:45-0500 Body weight 124.74 kg Chantal Mart Other [employer] Other 09-19-2023 11:45-0500 Diastolic blood pressure 81 mm[Hg] Chantal Mart Other [employer] Other 09-19-2023 11:45-0500 Systolic blood pressure 121 mm[Hg] Chantal Mart Other [employer] Other 07-26-2023 10:45-0500 Body height 182.88 cm Chantal Mart Other [employer] Other 07-26-2023 10:45-0500 Body mass index (BMI) [Ratio] 37.24 kg/m2 Chantal Mart Other [employer] Other 07-26-2023 10:45-0500 Body weight 124.56 kg Chantal Mart Other [employer] Other 07-26-2023 10:45-0500 Diastolic blood pressure 85 mm[Hg] Chantal Mart Other [employer] Other 07-26-2023 10:45-0500 Systolic blood pressure 122 mm[Hg] Chantal Mart Other [employer] Other 06-03-2023 15:00-0400 Body height 182.88 cm Chantal Mart Other [employer] Other 06-03-2023 15:00-0400 Body mass index (BMI) [Ratio] 37.81 kg/m2 Chantal Mart Other [employer] Other 06-03-2023 15:00-0400 Body temperature 98 [degF] Chantal Mart Other [employer] Other 06-03-2023 15:00-0400 Body weight 126.46 kg Chantal Mart Other [employer] Other 06-03-2023 15:00-0400 Diastolic blood pressure 76 mm[Hg] Chantal Mart Other [employer] Other 06-03-2023 15:00-0400 SaO2% (BldA) [Mass fraction] 98 % Chantal Mart Other [employer] Other 06-03-2023 15:00-0400 Systolic blood pressure 130 mm[Hg] Chantal Mart Other [employer] Other 02-11-2023 10:30-0400 Body height 182.88 cm Chantal Mart Other [employer] Other 02-11-2023 10:30-0400 Body mass index (BMI) [Ratio] 37.16 kg/m2 Chantal Mart Other [employer] Other 02-11-2023 10:30-0400 Body weight 124.29 kg Chantal Mart Other [employer] Other 02-11-2023 10:30-0400 Diastolic blood pressure 85 mm[Hg] Chantal Mart Other [employer] Other 02-11-2023 10:30-0400 Systolic blood pressure 124 mm[Hg] Chantal Mart Other [employer] Other 11-02-2022 16:15-0400 Body height 182.88 cm Austin Ball Other [employer] Other 11-02-2022 16:15-0400 Body mass index (BMI) [Ratio] 37.05 kg/m2 Austin Ball Other [employer] Other 11-02-2022 16:15-0400 Body weight 123.92 kg Austin Ball Other [employer] Other 11-02-2022 16:15-0400 Diastolic blood pressure 86 mm[Hg] Austin Ball Other [employer] Other 11-02-2022 16:15-0400 Respiratory rate 16 /min Austin Ball Other [employer] Other 11-02-2022 16:15-0400 Systolic blood pressure 136 mm[Hg] Austin Ball Other [employer] Other 10-27-2022 11:30-0400 Body height 182.88 cm Chantal Mart Other [employer] Other 10-27-2022 11:30-0400 Body mass index (BMI) [Ratio] 37.29 kg/m2 Chantal Mart Other [employer] Other 10-27-2022 11:30-0400 Body weight 124.74 kg Chantal Mart Other [employer] Other 10-27-2022 11:30-0400 Diastolic blood pressure 80 mm[Hg] Chantal Mart Other [employer] Other 10-27-2022 11:30-0400 SaO2% (BldA) [Mass fraction] 97 % Chantal Mart Other [employer] Other 10-27-2022 11:30-0400 Systolic blood pressure 132 mm[Hg] Chantal Mart Other [employer] Other 02-25-2021 14:30-0400 Diastolic blood pressure 90 mm[Hg] [place] [facility] [employer] Phone: 02-25-2021 14:30-0400 Heart rate 79 /min [place] [facility] [employer] Phone: 02-25-2021 14:30-0400 Respiratory rate 16 /min [place] [facility] [employer] Phone: 02-25-2021 14:30-0400 SaO2% (BldA) [Mass fraction] 97 % [place] [facility] [employer] Phone: 02-25-2021 14:30-0400 Systolic blood pressure 148 mm[Hg] [place] [facility] [employer] Phone: 02-25-2021 10:43-0400 Body height 180.3 cm [place] [facility] [employer] Phone: 02-25-2021 10:43-0400 Body mass index (BMI) [Ratio] 36.54 kg/m2 [place] [facility] [employer] Phone: 02-25-2021 10:43-0400 Body weight 118.84 kg [place] [facility] [employer] Phone: Encounters Encounter Date Encounter Type Care Provider Facility Start: 12-28-2023 End: 12-29-2023 ambulatory ADAM NAVARRO [facility]ulatory Start: 12-28-2023 End: 12-28-2023 Postop follow up visit related to original px Adam Navarro MD Work Phone: [facility] Comment on above: Pelvic pain Start: 12-28-2023 End: 12-28-2023 Subsequent hospital visit by physician [place] [id number] X-Ray 3 [facility] Comment on above: Pelvic pain Start: 12-08-2023 End: 12-21-2023 Evaluation and management of inpatient [facility] Start: 12-08-2023 End: 12-21-2023 Evaluation and management of inpatient Adam Navarro MD Work Phone: [facility] 6 Comment on above: Pelvic pain (Primary Dx); Acute postoperative pain Start: 11-30-2023 End: 12-01-2023 ambulatory [facility]ulatory Start: 11-30-2023 End: 11-30-2023 Office outpatient new 60 minutes Adam Navarro MD Work Phone: [facility] Comment on above: Pelvic pain (Primary Dx) Start: 11-30-2023 End: 11-30-2023 Subsequent hospital visit by physician [facility] [id number] X-Ray 2 [facility] Comment on above: Pelvic pain Start: 09-19-2023 End: 09-20-2023 ambulatory Portia Clark MD [employer] Other Start: 09-19-2023 Office outpatient vi sit 15 minutes Chantal Mart [facility] Start: 09-16-2023 End: 09-17-2023 Emergency department patient visit Mayela Vicente [place] [place]: 08-22-2023 End: 08-23-2023 ambulatory Portia Clark MD Facility: [facility] Start: 08-17-2023 End: 08-17-2023 ambulatory Chantal Mart Other [employer] Other Start: 08-17-2023 Telephone encounter Chantal Mart [facility] Start: 07-26-2023 End: 07-26-2023 ambulatory Chantal Mart Other [employer] Other Start: 07-26-2023 Office outpatient vi sit 15 minutes Chantal Mart [facility] Start: 07-18-2023 End: 07-18-2023 ambulatory Chantal Mart Other [employer] Other Start: 07-18-2023 Telephone encounter Chantal Mart [facility] Start: 06-03-2023 End: 06-03-2023 ambulatory Chantal Mart Other [employer] Other Start: 06-03-2023 Office outpatient vi sit 15 minutes Chantal Mart [facility] Start: 05-27-2023 End: 05-27-2023 ambulatory Chantal Mart Other [employer] Other Start: 05-27-2023 Telephone encounter Chantal Mart [facility] Start: 02-11-2023 End: 02-11-2023 ambulatory Chantal Mart Other [employer] Other Start: 02-11-2023 Office outpatient vi sit 15 minutes Chantal Mart [facility] Start: 12-10-2022 Telephone encounter Chantal Mart [facility] Start: 12-10-2022 End: 12-11-[address] CHANTAL MART [employer] Other Start: 12-02-2022 (Televisit) Televisit Chantal Gonzalez [facility] Start: 12-02-2022 End: 12-02-2022 ambulatory Chantal Mart Other [employer] Other Start: 11-29-2022 End: 11-29-2022 ambulatory Kurtis Patel Facility:[facility] Start: 11-02-2022 End: 11-02-2022 ambulatory Austin Jun Other [employer] Other Start: 11-02-2022 Office outpatient vi sit 15 minutes Austin Barahona [facility] Start: 10-29-2022 End: 10-29-2022 ambulatory Chantal Mart Other [employer] Other Start: 10-29-2022 Telephone encounter Chantal Mart [facility] Start: 10-27-2022 End: 10-27-2022 ambulatory Chantal Mart Other [employer] Other Start: 10-27-2022 Office outpatient vi sit 15 minutes Chantal Mart [facility] Start: 09-16-2022 End: 09-17-[address] ALLYSON PANTOJA . Facility:[facility] Start: 07-06-2022 End: 07-07-[address] CHANTAL MART Facility:[facility] Start: 06-24-2022 End: 06-25-[address] ALLYSON PANTOJA . Facility:[facility] Start: 06-01-2022 End: 06-01-[address] ALLYSON PANTOJA . Facility:[facility] Start: 05-13-2022 End: 05-14-[address] ALLYSON PANTOJA . Facility:[facility] Start: 04-20-2022 End: 04-20-[address] ALLYSON PANTOJA . Facility:[facility] Start: 04-01-2022 End: 04-02-2022 ambulatory HANNA MA . Facility:[facility] Start: 03-31-2022 End: 04-01-[address] CHANTAL MART Facility:[facility] Start: 12-24-2021 End: 12-25-[address] CHANTAL MART Facility:[facility] Start: 02-25-2021 End: 02-28-2021 ambulatory CHANTAL MART [facility] Start: 02-25-2021 End: 02-27-2021 Subsequent hospital visit by physician Shun Shah MD Work Phone: [facility] CT Scan Comment on above: Arrived Lumbar radiculopathy ; Lumbar spondylosis; Bilateral low back pain with sciatica, sciatica laterality unspecified, unspecified chronicity Procedures Date Procedure Procedure Detail Performing Clinician Start: 12-21-2023 DISCHARGE PATIENT DERICK NAVARRO Start: 12-14-2023 PROVIDER CERTIFICATION ADAM NAVARRO Start: 12-14-2023 ADULT DISCHARGE DIET MARCO ANTONIO NAVARRO Start: 12-14-2023 MEDICATION ADMINISTRATION ADAM NAVARRO Start: 12-14-2023 NOTIFY PROVIDER (DO NOT PROMPT FOR PARAMETERS) ADAM NAVARRO Start: 12-14-2023 SNF DISCHARGE POTENTIAL ADAM NAVARRO Start: 12-14-2023 SNF LEVEL OF CARE DERICK NAVARRO Start: 12-14-2023 SNF RECEIVING AGENCY STANDING ORDERS ADAM NAVARRO Start: 12-14-2023 SNF REHAB POTENTIAL DRAKE NAVARRO Start: 12-14-2023 VITAL SIGNS ADAM CORTEZ Start: 12-14-2023 Basic metabolic 2000 panel - Serum or Plasma ADAM NAVARRO Start: 12-14-2023 CBC W Auto Different ial panel - Blood ADAM NAVARRO Start: 12-14-2023 Magnesium [Mass/volu me] in Serum or Plasma ADAM NAVARRO Start: 12-14-2023 Basic metabolic pane l calcium total Fausto Zendejas MD Work Phone: Start: 12-13-2023 Basic metabolic 2000 panel - Serum or Plasma ADAM NAVARRO Start: 12-13-2023 CBC W Auto Different ial panel - Blood ADAM NAVARRO Start: 12-13-2023 Magnesium [Mass/volu me] in Serum or Plasma ADAM NAVARRO Start: 12-13-2023 Basic metabolic pane l calcium total Fausto Zendejas MD Work Phone: Start: 12-12-2023 ECG 12-LEAD ADAM CORTEZ Start: 12-12-2023 Basic metabolic 2000 panel - Serum or Plasma ADAM NAVARRO Start: 12-12-2023 CBC W Auto Different ial panel - Blood ADAM NAVARRO Start: 12-12-2023 Magnesium [Mass/volu me] in Serum or Plasma ADAM NAVARRO Start: 12-12-2023 Basic metabolic pane l calcium total Fausto Zendejas MD Work Phone: Start: 12-11-2023 ECG 12-LEAD ADAM CORTEZ Start: 12-11-2023 Ecg routine ecg w/le ast 12 lds trcg only w/o i&r Sam Gibson DPM Work Phone: Start: 12-11-2023 XR ABDOMEN 1 VIEW DERICK NAVARRO Start: 12-11-2023 Radiologic exam abdo men 1 view Corrie Cai MD Work Phone: Start: 12-11-2023 NASOGASTRIC TUBE INSERTION ADAM NAVARRO Start: 12-11-2023 XR ABDOMEN 1 VIEW DERICK NAVARRO Start: 12-10-2023 Radiologic exam abdo men 1 view Roxanna Berman MD Work Phone: Start: 12-10-2023 Basic metabolic 2000 panel - Serum or Plasma ADAM NAVARRO Start: 12-10-2023 CBC W Auto Different ial panel - Blood ADAM NAVARRO Start: 12-10-2023 Basic metabolic pane l calcium total Fausto Zendejas MD Work Phone: Start: 12-08-2023 PULSE OXIMETRY, CONTINUOUS ADAM NAVARRO Start: 12-08-2023 PULSE OXIMETRY, CONTINUOUS Sam Arthur DPM Work Phone: Start: 12-08-2023 ADMIT TO INPATIENT YAMILET NAVARRO Start: 12-08-2023 FL FLUORO IMAGES NO CHARGE ADAM NAVARRO Start: 12-08-2023 XR PELVIS 1-2 VIEWS DRAKE NAVARRO Start: 12-08-2023 XR tomography Unspec ified body region Adam Navarro MD Work Phone: Start: 12-08-2023 Radiologic examinati on pelvis 1/2 views Adam Navarro MD Work Phone: Start: 12-08-2023 VERAB/VERIFY ABORH YAMILET NAVARRO Start: 12-08-2023 TYPE AND SCREEN ADAM NAVARRO Start: 12-08-2023 Blood typing serolog ic rh (d) Benny Dacosta DO Work Phone: Start: 12-08-2023 End: 12-08-2023 Optx ant pelvic bone fx&/dislc int fixj if pfr Adam Navarro MD Work Phone: Start: 12-08-2023 PLACE IN OUTPATIENT/HOSPITAL AMBULATORY SURGERY ADAM NAVARRO Start: 12-08-2023 FULL CODE ADAM CORTEZ Start: 11-30-2023 CASE REQUEST OPERATING ROOM ADAM NAVARRO Start: 11-30-2023 XR PELVIS 3+ VIEWS YAMILET NAVARRO Start: 02-25-2021 Ct lumbar spine w/co ntrast material Hamilton Hensley Jael [employer] 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 Work Phone: Start: 02-25-2021 Injection procedure myelography/ct lumbar Hamilton Hensley Jael [employer]ACLE 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 Work Phone: Plan of Treatment Date Care Activity Detail Author Start: 09-16-2033 DTaP/Tdap/Td Vaccine s (2 - Td or Tdap) DTaP/Tdap/Td Vaccines (2 - Td or Tdap) [facility] Start: 2025 Zoster Vaccines (1 o f 2) Zoster Vaccines (1 of 2) [facility] Start: 04-08-2024 Influenza vaccination Influenz a Vaccine (Season Ended) [facility] Start: 02-01-2024 End: 02-01-2024 Patient encounter procedure 02/01/2024 1:30 PM EDT Office Visit [facility] [address] [place] [id number] [place] [address] [place] [address] [facility] Start: 01-28-2024 End: 12-27-2024 XR Pelvis 3 Views XR pelvis 3+ views Imaging Routine Pelvic pain Expected: 01/28/2024, Expires: 12/27/2024 [facility] Work Phone: Comment on above: Expected: 01/28/2024 , Expires: 12/27/2024 Start: 12-28-2023 End: 12-26-2024 XR Pelvis 3 Views [facility] Area Work Phone: Comment on above: Expected: 12/28/2023 , Expires: 12/26/2024 Once for 1 Occurrenc es starting 12/28/2023 until 12/28/2023 Start: 12-08-2023 Subsequent hospital visit by physician 12/08/2023 Hospital Encounter [facility] [address] [place] [address] [place] [address] Department of Orthopedics [place], [place] [id number] [facility] [place] Start: 11-30-2023 End: 11-29-2024 XR Pelvis 3 Views [facility] Service Area Work Phone: Comment on above: Expected: 11/30/2023 , Expires: 11/29/2024 Once for 1 Occurrenc es starting 11/30/2023 until 11/30/2023 Start: 04-08-2023 COVID-19 Vaccine () COVID-19 Vaccine () [facility] Start: 12-23-2022 ambulatory Ambulatory Facility:H 1 Start: 02-19-2022 Creatinine measurement Creatinine mo nitoring [facility] Phone: Start: 02-19-2022 Potassium monitoring Potassium monit oring [facility] Phone: Start: 04-08-2021 Influenza vaccination Flu vaccine (# 1) [facility] Phone: Start: 2020 Screening for malign ant neoplasm of colon Colon cancer screen colonoscopy [facility] Phone: Start: 1994 DTaP/Tdap/Td vaccine (1 - Tdap) DTaP/Tdap/Td vaccine (1 - Tdap) [facility] Phone: Start: 1994 Hepatitis B Vaccines (1 of 3 - 19+ 3-dose series) Hepatitis B Vaccines (1 of 3 - 19+ 3-dose series) [facility] Start: 1993 Diabetes mellitus screening Diabetes Screening [facility] Start: 1993 Hepatitis C screening Hepatitis C [facility] Start: 1990 HIV screening HIV screen [facility] Work Phone: Start: 1987 COVID-19 Vaccine (1) COVID-19 Vaccin e (1) [facility] Work Phone: Start: 1985 Lipid panel Lipid screen [facility] Work Phone: Start: 1981 Pneumococcal Vaccine : Pediatrics (0 to 5 Years) and At-Risk Patients (6 to 64 Years) (1 of 2 - PCV) Pneumococcal Vaccine: Pediatrics (0 to 5 Years) and At-Risk Patients (6 to 64 Years) (1 of 2 - PCV) [facility] Start: 1976 MMR Vaccines (1 of 1 - Standard series) MMR Vaccines (1 of 1 - Standard series) [facility] Start: 1975 Hepatitis C screening Hepatitis C [facility] Work Phone: Start: 1975 HIV screening HIV Screening [facility] Start: 1975 Lipid panel Lipid Panel [facility] Start: 1975 Screening for malign ant neoplasm of colon [facility] Start: 1975 Yearly Adult Physical Yearly Adult P hysical [facility] End: 12-08-2023 Continuous Pulse oximetry, In Phase 1 Continuous Pulse oximetry, In Phase 1 Respiratory Care Routine Continuous until discontinued starting 12/08/2023 [facility] Work Phone: Comment on above: Continuous until dis continued starting 12/08/2023 Electrocardiogram, 12-lead PRN ACS symptoms Electrocardiogram, 12-lead PRN ACS symptoms ECG Routine As needed until discontinued starting 12/08/2023, 1 completed [facility] Work Phone: Comment on above: As needed until disc ontinued starting 12/08/2023, 1 completed Electrocardiogram, 12-lead PRN ACS symptoms Electrocardiogram, 12-lead PRN ACS symptoms ECG Routine 12/12/2023 12:34 PM EDT [facility] Work Phone: Optx ant pelvic bone fx&/dislc int fixj if pfr Open Reduction Internal Fixation Pelvis Pelvic pain [facility] End: 12-09-2023 Urethral Catheter Removal Urethral Catheter Removal Procedures Routine Once for 1 Occurrences starting 12/09/2023 until 12/09/2023 [facility] Work Phone: Comment on above: Once for 1 Occurrenc es starting 12/09/2023 until 12/09/2023 End: 12-08-2023 Verify ABO/Rh Group Test (VERAB) [facility] Work Phone: Comment on above: STAT (Lab) for 1 Occ urrences starting 12/08/2023 until 12/08/2023 Immunizations Immunization Date Immunization Notes Care Provider Mat hutchinson 09-16-2023 tetanus toxoid, reduced diphtheria toxoid, and acellular pertussis vaccine, adsorbed Adam Navarro MD Work Phone: [facility] 05-23-2019 influenza virus vaccine, unspecified formulation Adam Navarro MD Work Phone: [facility] Work Phone: 08-25-2015 tetanus and diphther ia toxoids, adsorbed, preservative free, for adult use (5 Lf of tetanus toxoid and 2 Lf of diphtheria toxoid) Adam Navarro MD Work Phone: [facility] Work Phone: 08-25-2015 tetanus toxoid, reduced diphtheria toxoid, and acellular pertussis vaccine, adsorbed [employer] Other Payers Date Payer Category Payer Unknown [id number] 2022 Self-pay 2020 Unknown 1975 Unknown [id number] 2.16.8 [id number] 1975 Unknown [id number] 2.16.8 40.1.546796.3.579.2.182 1975 Unknown [id number] 2.16.84 0.1.721216.3.579.2.593 1975 Unknown [id number] 2.16.84 0.1.723933.3.579.2.593 1975 Unknown [id number] 2.16.84 0.1.681010.3.579.2.593 1975 Unknown [id number] 2.16.84 0.1.507643.3.579.2.593 1975 Unknown [id number] 2.16.84 0.1.767510.3.579.2.593 1975 Unknown [id number] 2.16.84 0.1.318137.3.579.2.593 1975 Unknown [id number] 2.16.84 0.1.306519.3.579.2.593 1975 Unknown [id number] 2.16.84 0.1.212196.3.579.2.593 1975 Unknown [id number] 2.16.84 0.1.155831.3.579.2.593 1975 Unknown [id number] 2.16.84 0.1.664981.3.579.2.593 1975 Unknown [id number] 2.16.84 0.1.731203.3.579.2.593 1975 Unknown [id number] 2.16.84 0.1.520329.3.579.2.593 1975 Unknown [id number] 2.16. 840.1.902695.3.579.2.196 1975 Unknown [id number] 2.16. 840.1.057679.3.579.2.196 1975 Unknown [id number] 2.16.8 40.1.302005.3.579.2.727 1975 Unknown [id number] 2.16.8 40.1.536049.3.579.2.1244 1975 Unknown [id number] 2.16.8 40.1.034063.3.579.2.1244 1975 Unknown [id number] 2.16.8 40.1.137739.3.579.2.1245 1975 Unknown [id number] 2.16.8 40.1.254532.3.579.2.124 1975 Unknown [id number] 2.16.8 40.1.407544.3.579.2.1245 1959 Unknown [id number] 1. [id number] Unknown [id number] 2.16.8 40.1.067356.3.579.2.531 Social History Date Type Detail Facility Start: 02-25-2021 End: 11-30-2023 Tobacco smoking status [facility] Never smoker [facility] Phone: Start: 02-25-2021 End: 11-30-2023 Tobacco use and exposure Never used [employer] Start: 1975 Sex Assigned At Not on file [facility] Phone: Start: 11-20-2023 End: 12-28-2023 Exposure to SARS-CoV-2 (event) Not sure [facility] Phone: Start: 12-08-2023 End: 12-11-2023 Sex Assigned At [facility] Start: 11-30-2023 End: 12-28-2023 Alcoholic beverage intake Ex-drinker (finding) [facility] Work Phone: Start: 1975 Sex assigned at Male [facility] Start: 11-30-2023 Gender identity Identifies as male gender (finding) [facility] Work Phone: Start: 11-30-2023 Sexual orientation Heterosexual (finding) [facility] Work Phone: Start: 12-08-2023 End: 12-11-2023 History of Social function [facility] Has the [employer], [employer], [employer], or water [employer] threatened to shut off services in your home in past 12Mo No [facility] How often to you hav e a drink containing alcohol? Never [facility] How many standard drinks containing alcohol do you have on a typical day? Patient does not drink [facility] Work Phone: Do you feel stress - tense, restless, nervous, or anxious, or unable to sleep at night because your mind is troubled all the time - these days [OSQ] Not at all [facility] Work Phone: (I/We) worried kiki er (my/our) food would run out before (I/we) got money to buy more. Never true [facility] Work Phone: Medical Equipment Procedure Code Equipment Code Equipment Origin al Text Equipment Identifier Morgan Welch 5.5cc - [id number] - [id number] Start: 12-08-2023 Power Mix, Mini Ingite, 4cc - [id number] - [id number], [id number] FDA Start: 12-08-2023 Bme Elite Implan t Kit [id number] Start: 12-08-2023 Comment on above: Description: Per ibis morgan 5/3 Screw, Cortical, Self-Tapping, 3.5 X 32 Mm, Stainless Steel - [id number] Start: 12-08-2023 Screw, 7.3mm Can n, Full Thread, 165mm, Sterile - [id number] Start: 12-08-2023 Screw, 7.3mm Can n, Full Thread, 145mm, Sterile - [id number] Start: 12-08-2023 Screw, Cortical, Self-Tapping, 3.5 X 36 Mm, Stainless Steel - [id number] Start: 12-08-2023 Plate, 3.5 X 6h Pubic Symphysis - Sna - [id number] Start: 12-08-2023 Screw, Cortical, Self-Tapping, 3.5 X 30 Mm, Stainless Steel - Sna - [id number] Start: 12-08-2023 Screw, Cortical, Self-Tapping, 3.5 X 24 Mm, Stainless Steel - Sna - [id number] Start: 12-08-2023 Screw Cortex 3.5 X 70 - Sna - [id number] Start: 12-08-2023 Screw, Cortical, Self-Tapping, 3.5 X 34 Mm, Stainless Steel - Sna - [id number] Start: 12-08-2023 Screw, Cortical, Self-Tapping, 3.5 X 75 Mm, Stainless Steel - Sna - [id number] Start: 12-08-2023 Washer, F/Large Screws, 13 Mm, Stainless Steel - [id number] Start: 12-08-2023 Clinical Notes 04-08-2016 to 12-20-2023 Daisy Watson - 12/20/2023 12:34 PM Man Hobson PTA - 12/19/2023 2:09 PM Hina Watson - 12/19/2023 11:52 AM KIMTRaul Hayward MD - 12/19/2023 5:25 AM EDTDischarge Instructions Note Date & Type Note Facility 12-20-2023 History of Presen t illness Narrative GUALBERTO sent updates to [facility] and asked for an update on precert. Precert escalated 12/18. GUALBERTO will continue to follow. 1434-Auth received. SW attempted to book transport for 6pm today, [facility] intent on confirming for 9pm[facility] confirmed stretcher transport for 930 am Wednesday 12/20. GUALBERTO updated [facility], the floor SNF and patient. 7000 complete, [facility] sent. [facility] Physical Therapy Treatment Patient Name: Prosper Milian Today's Date: 12/19/2023 Time Calculation Start Time: 1300 Stop Time: 1311 Time Calculation (min): 11 min Assessment/Plan PT Assessment End of Session Communication: Bedside nurse, PCT/NA/CTA Assessment Comment: . End of Session Patient Position: Up in chair, Alarm on PT Plan Inpatient/Swing Bed or Outpatient: Inpatient PT Plan Treatment/Interventions: Bed mobility, Transfer training, Balance training, Neuromuscular re-education, Strengthening, Endurance training, Range of motion, Therapeutic exercise, Therapeutic activity, Home exercise program, Positioning, Postural re-education, Wheelchair management PT Plan: Skilled PT PT Frequency: 3 times per week PT Discharge Recommendations: Moderate intensity level of continued care Equipment Recommended upon Discharge: (TBD at next level of care) PT Recommended Transfer Status: Assist x1, Assistive device (bariatric RW) PT - OK to Discharge: Yes (PT eval complete and DC rec made) General Visit Information: PT Visit PT Received On: 12/19/23 General Patient Position Received: Bed, 3 rail up, Alarm on General Comment: Pt in supine on arrival, willing to participate with encouragement, pt demonstrates increased ability to pivot to chair while maintaining WBing precautions Subjective Precautions: Precautions Medical Precautions: (NWBL LE, stand pivot R LE) Vital Signs: Objective Pain: Pain Assessment Pain Score: 0 - No pain Cognition: Cognition Orientation Level: Oriented X4 Treatments: Therapeutic Exercise Therapeutic Exercise Activity 1: sitting LAQ x15 reps AROM Bed Mobility 1 Bed Mobility 1: Supine to sitting Level of Assistance 1: Close supervision Bed Mobility Comments 1: HOB maximally elevated, additional time to complete Transfer 1 Technique 1: Sit to stand Transfer Device 1: Walker Transfer Level of Assistance 1: Contact guard Trials/Comments 1: cues for hand placement and to maintain M+WBing precuaiotns Transfers 2 Transfer From 2: Bed to Transfer to 2: Chair with arms Technique 2: To right, Stand pivot Transfer Device 2: Walker Transfer Level of Assistance 2: Contact guard Outcome Measures: [facility] Basic Mobility Turning from your back to your side while in a flat bed without using bedrails: A little Moving from lying on your back to sitting on the side of a flat bed without using bedrails: A little Moving to and from bed to chair (including a wheelchair): A little Standing up from a chair using your arms (e.g. wheelchair or bedside chair): A little To walk in hospital room: Total Climbing 3-5 steps with railing: Total Basic Mobility - Total Score: 14 Education Documentation Precautions, taught by Mal Hobson PTA at 12/19/2023 2:06 PM. Learner: Patient Readiness: Acceptance Method: Explanation Response: Verbalizes Understanding Education Comments No comments found. OP EDUCATION: Encounter Problems Encounter Problems (Active) Balance STG - Maintains dynamic sitting balance without upper extremity support and supervision. (Progressing) Start: 12/09/23 Expected End: 12/23/23 INTERVENTIONS: 1. Practice sitting on the edge of a bed/mat with minimal support. 2. Educate patient about maintining total hip precautions while maintaining balance. 3. Educate patient about pressure relief. 4. Educate patient about use of assistive device. Mobility Pt will perform bed mobility with min assist. (Progressing) Start: 12/09/23 Expected End: 12/23/23 Encounter Problems (Resolved) PT Transfers Pt will perform stand pivot transfer with fww and mod assist while maintaining WB precautions. (Met) Start: 12/09/23 Expected End: 12/23/23 Resolved: 12/15/23 Pending updated therapy notes for precert. [facility] notified. SW will continue to follow. 1610-SW sent updated PT note to [facility]. SW escalated precert. SW will continue to follow. [facility] Orthopaedic Surgery Progress Note: S: NAEON. AFVSS. Pain controlled on current regimen. Denies any new onset numbness, tingling or weakness. Denies nausea, vomiting, chest pain, dyspnea, or calf tenderness. Denies any fever or chills. O: Constitutional: NAD, resting comfortably in bed CV: RRR per peripheral pulses, limbs wwp GI: normalizing distention Psych: Appropriate mood and behavior MSK: Bilateral lower extremities/Pelvis -Post-operative dressing in place without strikethrough bleeding. -Motor intact in DF/PF/EHL/FHL -SILT in saph/sural/SPN/DPN distributions -Foot wwp, palpable DP pulse RLE, dopplerable DP/PT pulse LLE -Compartments soft and compressible, no pain with passive dorsiflexion A/P: 48yo M s/p anterior pelvis ORIF, perc fixation posterior pelvis on 12/[address] Navarro. Recovering appropriately - tolerating regular diet - Bowel Regimen: Colace, senna, dulcolax. Got enema 12/11/23 - Multimodal pain therapy: scheduled tylenol, prn oxycodone, dilaudid prn for breakthrough - Weightbearing: stand pivot transfer RLE, NWB LLE. - DVT PPx: SCD, ASA 81 mg BID - Drain: HV x1 removed 12/12 - Dressing removed 12/15 - ACS consulted for ileus: NGT removed, tolerating regular diet, signed off - Continue home meds: as indicated Dispo: SNF; medically clear for discharge, awaiting precert This plan was discussed with the attending, Dr. Navarro. This patient will be followed by ortho trauma team (All Ideagen chat preferred): 1st call: Raul Hayward PGY1 2nd call: Thad Marie PGY2 3rd call: Fausto Zendejas PGY3 Raul Hayward MD Orthopedic Surgery PGY-1 [facility] Pager: [phone] Available by Flinja Please reach out to the orthopaedic on-call SAMMY or resident (please refer to Qgenda) On weekends and after 6PM: At [facility] Main: Please reach out to the orthopaedic on-call resident ([phone]) At [facility]: Please reach out to the orthopaedic on-call SAMMY or resident (please refer to Qgenda) Orthopaedic Surgery Progress Note: S: NAEON. AFVSS. Pain controlled on current regimen. Denies any new onset numbness, tingling or weakness. Denies nausea, vomiting, chest pain, dyspnea, or calf tenderness. Denies any fever or chills. O: Constitutional: NAD, resting comfortably in bed CV: RRR per peripheral pulses, limbs wwp GI: normalizing distention Psych: Appropriate mood and behavior MSK: Bilateral lower extremities/Pelvis -Post-operative dressing in place without strikethrough bleeding. -Motor intact in DF/PF/EHL/FHL -SILT in saph/sural/SPN/DPN distributions -Foot wwp, palpable DP pulse RLE, dopplerable DP/PT pulse LLE -Compartments soft and compressible, no pain with passive dorsiflexion A/P: 48yo M s/p anterior pelvis ORIF, perc fixation posterior pelvis on 12/[address] Navarro. Recovering appropriately - tolerating regular diet - Bowel Regimen: Colace, senna, dulcolax. Got enema 12/11/23 - Multimodal pain therapy: scheduled tylenol, prn oxycodone, dilaudid prn for breakthrough - Weightbearing: stand pivot transfer RLE, NWB LLE. - DVT PPx: SCD, ASA 81 mg BID - Drain: HV x1 removed 12/12 - Dressing removed 12/15 - ACS consulted for ileus: NGT removed, tolerating regular diet, signed off - Continue home meds: as indicated Dispo: SNF; medically clear for discharge This plan was discussed with the attending, Dr. Navarro. This patient will be followed by ortho trauma team (All Epic chat preferred): 1st call: Raul Hayward PGY1 2nd call: Thad Marie PGY2 3rd call: Fausto Zendejas PGY3 Thad Marie MD Orthopaedic Surgery PGY-2 Orthopa[facility] Surgery Progress Note: S: NAEON. AFVSS. Pain controlled on current regimen. Denies any new onset numbness, tingling or weakness. Denies nausea, vomiting, chest pain, dyspnea, or calf tenderness. Denies any fever or chills. O: Constitutional: NAD, resting comfortably in bed CV: RRR per peripheral pulses, limbs wwp GI: normalizing distention Psych: Appropriate mood and behavior MSK: Bilateral lower extremities/Pelvis -Post-operative dressing in place without strikethrough bleeding. -Motor intact in DF/PF/EHL/FHL -SILT in saph/sural/SPN/DPN distributions -Foot wwp, palpable DP pulse RLE, dopplerable DP/PT pulse LLE -Compartments soft and compressible, no pain with passive dorsiflexion A/P: 48yo M s/p anterior pelvis ORIF, perc fixation posterior pelvis on 12/[address] Navarro. Recovering appropriately - NPO - Bowel Regimen: Colace, senna, dulcolax. Got enema 12/11/23 - Multimodal pain therapy: scheduled tylenol, prn oxycodone, dilaudid prn for breakthrough - Weightbearing: stand pivot transfer RLE, NWB LLE. - DVT PPx: SCD, ASA 81 mg BID - Drain: HV x1 removed 12/12 - Dressing removed 12/15 - ACS consulted for ileus: NGT removed, tolerating regular diet, signed off - Continue home meds: as indicated Dispo: SNF; medically clear for discharge This plan was discussed with the attending, Dr. Navarro. This patient will be followed by ortho trauma team (All Epic chat preferred): 1st call: Raul Hayward PGY1 2nd call: Thad Marie PGY2 3rd call: Fausto Zendejas PGY3 Thad Marie MD Orthopaedic Surgery PGY-2 GUALBERTO received a call from [facility] requesting 7000 for precert. GUALBERTO requested SNF to start precert yesterday. Finalized [facility] needed for 7000 to be submitted. [facility] needs signature for completion. GUALBERTO updated [facility]. Will continue to follow. 1034-GUALBERTO received update from sig other requesting referral to be submitted to [facility]. Referral submitted for review. Will follow up. 1134- [facility] accepted. GUALBERTO asked SNF to start precert. [place] completed, GUALBERTO updated DSC for 7000. GUALBERTO updated patient and sig other. Will continue to follow. ENID Tovar Orthopaedic Surgery Progress Note: S: NAEON. AFVSS. Pain controlled on current regimen. Denies any new onset numbness, tingling or weakness. Denies nausea, vomiting, chest pain, dyspnea, or calf tenderness. Denies any fever or chills. O: Constitutional: NAD, resting comfortably in bed CV: RRR per peripheral pulses, limbs wwp GI: less distended Psych: Appropriate mood and behavior MSK: Bilateral lower extremities/Pelvis -Post-operative dressing in place without strikethrough bleeding. -Motor intact in DF/PF/EHL/FHL -SILT in saph/sural/SPN/DPN distributions -Foot wwp, palpable DP pulse RLE, dopplerable DP/PT pulse LLE -Compartments soft and compressible, no pain with passive dorsiflexion A/P: 48yo M s/p anterior pelvis ORIF, perc fixation posterior pelvis on 12/[address] Navarro. Recovering appropriately - NPO - Bowel Regimen: Colace, senna, dulcolax. Got enema 12/11/23 - Multimodal pain therapy: scheduled tylenol, prn oxycodone, dilaudid prn for breakthrough - Weightbearing: stand pivot transfer RLE, NWB LLE. - DVT PPx: SCD, ASA 81 mg BID - Drain: HV x1 removed 12/12 - Dressing removed 12/15 - ACS consulted for ileus: NGT removed, tolerating regular diet, signed off - Continue home meds: as indicated Dispo: SNF; medically clear for discharge This plan was discussed with the attending, Dr. Navarro. This patient will be followed by ortho trauma team (All Epic chat preferred): 1st call: Raul Hayward PGY1 2nd call: Thad Marie PGY2 3rd call: Fausto Zendejas PGY3 Thda Marie MD Orthopaedic Surgery PGY-2 GUALBERTO followed up with sig brandon Mcduffie. S.O. states patient is agreeable to [facility]. GUALBERTO spoke to [facility]. They are OON with insurance. [facility] confirmed they are in network and can clincally accept. GUALBERTO asked [facility] [place] to initiate precert. SW updated patient at bedside. Patient confirmed he is agreeable. SW will continue to follow. [facility] Physical Therapy Physical Therapy Treatment Patient Name: Prosper Milian Today's Date: 12/15/2023 Time Calculation Start Time: 1035 Stop Time: 1059 Time Calculation (min): 24 min Assessment/Plan PT Assessment Barriers to Discharge: moderate assist for bed mobility with HOB elevated and use of bed rails, stairs to enter home End of Session Communication: Bedside nurse, PCT/NA/CTA Assessment Comment: Pt tolerated session well. Continues to require moderate assistance at trunk for supine to sit bed mobility with HOB elevated and significant use of bed rails. Pt transferred sit to stand and stand pivot transfer bed to chair with CGA and VCs fror hand placement. Pt continues to benefit from skilled PT and remains appropriate for moderate intensity PT upon discharge. End of Session Patient Position: Up in chair, Alarm on PT Plan Inpatient/Swing Bed or Outpatient: Inpatient PT Plan Treatment/Interventions: Bed mobility, Transfer training, Balance training, Neuromuscular re-education, Strengthening, Endurance training, Range of motion, Therapeutic exercise, Therapeutic activity, Home exercise program, Positioning, Postural re-education, Wheelchair management PT Plan: Skilled PT PT Frequency: 3 times per week PT Discharge Recommendations: Moderate intensity level of continued care Equipment Recommended upon Discharge: (TBD at next level of care) PT Recommended Transfer Status: Assist x1, Assistive device (bariatric RW) PT - OK to Discharge: Yes (PT eval complete and DC rec made) General Visit Information: PT Visit PT Received On: 12/15/23 General Reason for Referral: 48 year old male s/p anterior pelvis ORIF, percutaneous fixation on 12/08/23. Past Medical History Relevant to Rehab: s/p [facility]ING 09/16/23 pubic symphysis injury Prior to Session Communication: Bedside nurse Patient Position Received: Bed, 4 rail up, Alarm on General Comment: Pt cleared for PT by RN. Pt alert and agreeable to PT. Subjective Precautions: Precautions LE Weight Bearing Status: (NWB L LE, stand pivot WB R LE) Medical Precautions: Fall precautions Objective Pain: Pain Assessment Pain Assessment: 0-10 Pain Score: 2 Pain Type: Surgical pain Pain Location: Pelvis Pain Interventions: Repositioned, Rest (transfer to chair) Response to Interventions: no change in pain Cognition: Cognition Overall Cognitive Status: Within Functional Limits Postural Control: Postural Control Posture Comment: WFL Static Sitting Balance Static Sitting-Balance Support: Bilateral upper extremity supported, Feet supported Static Sitting-Level of Assistance: Distant supervision Dynamic Sitting Balance Dynamic Sitting-Balance Support: Bilateral upper extremity supported, Feet supported Dynamic Sitting-Balance: Forward lean Dynamic Sitting-Comments: distant supervision Static Standing Balance Static Standing-Balance Support: Bilateral upper extremity supported (bariatric RW) Static Standing-Level of Assistance: Contact guard Dynamic Standing Balance Dynamic Standing-Balance Support: Bilateral upper extremity supported (bariatric RW) Dynamic Standing-Balance: Turning (pivoting on R LE, L LE NWB) Dynamic Standing-Comments: CGA Activity Tolerance: Activity Tolerance Endurance: Endurance does not limit participation in activity Treatments: Therapeutic Exercise Therapeutic Exercise Performed: Yes Therapeutic Exercise Activity 1: LAQx3 hold, seated marches, ankle pumps Therapeutic Activity Therapeutic Activity Performed: Yes Therapeutic Activity 1: room set up, bed mobility, transfers, patient education, sitting balance Bed Mobility Bed Mobility: Yes Bed Mobility 1 Bed Mobility 1: Supine to sitting Level of Assistance 1: Moderate assistance (trunk mnanagement) Bed Mobility Comments 1: HOB partially elevated, significant use of bed rails Ambulation/Gait Training Ambulation/Gait Training Performed: No (pt only cleared for R LE stand pivot transfer WB) Transfers Transfer: Yes Transfer 1 Transfer From 1: Bed to Transfer to 1: Chair with arms Technique 1: Stand pivot Transfer Device 1: (bariatric RW) Transfer Level of Assistance 1: Contact guard Trials/Comments 1: pt puilling up on RW and quickly achieving stand before PT could give VCs for proper hand placement Transfers 2 Transfer From 2: Chair with arms to Transfer to 2: Stand Technique 2: Sit to stand, Stand to sit Transfer Device 2: (bariatric RW) Transfer Level of Assistance 2: Contact guard Trials/Comments 2: VCs for hand placement Outcome Measures: [facility] Basic Mobility Turning from your back to your side while in a flat bed without using bedrails: A lot Moving from lying on your back to sitting on the side of a flat bed without using bedrails: A lot Moving to and from bed to chair (including a wheelchair): A little Standing up from a chair using your arms (e.g. wheelchair or bedside chair): A little To walk in hospital room: Total Climbing 3-5 steps with railing: Total Basic Mobility - Total Score: 12 Education Documentation Precautions, taught by Cheryl Morrow V PT at 12/15/2023 11:18 AM. Learner: Patient Readiness: Acceptance Method: Explanation Response: Verbalizes Understanding Comment: NWB L LE, Stand pivot transfer WB R LE Mobility Training, taught by Cheryl Morrow V PT at 12/15/2023 11:18 AM. Learner: Patient Readiness: Acceptance Method: Explanation Response: Verbalizes Understanding Comment: NWB L LE, Stand pivot transfer WB R LE Education Comments No comments found. Encounter Problems Encounter Problems (Active) Balance STG - Maintains dynamic sitting balance without upper extremity support and supervision. (Progressing) Mobility Pt will perform bed mobility with min assist. (Progressing) Start: 12/09/23 Expected End: 12/23/23 Encounter Problems (Resolved) PT Transfers Pt will perform stand pivot transfer with fww and mod assist while maintaining WB precautions. (Met) Start: 12/09/23 Expected End: 12/23/23 Resolved: 12/15/23 Orthopaedic Surgery Progress Note: S: NAEON. AFVSS. Pain controlled on current regimen. Denies any new onset numbness, tingling or weakness. Denies nausea, vomiting, chest pain, dyspnea, or calf tenderness. Denies any fever or chills. O: Constitutional: NAD, resting comfortably in bed CV: RRR per peripheral pulses, limbs wwp GI: less distended Psych: Appropriate mood and behavior MSK: Bilateral lower extremities/Pelvis -Post-operative dressing in place without strikethrough bleeding. -Motor intact in DF/PF/EHL/FHL -SILT in saph/sural/SPN/DPN distributions -Foot wwp, palpable DP pulse RLE, dopplerable DP/PT pulse LLE -Compartments soft and compressible, no pain with passive dorsiflexion A/P: 48yo M s/p anterior pelvis ORIF, perc fixation posterior pelvis on 12/[address] Navarro. Recovering appropriately - NPO - Bowel Regimen: Colace, senna, dulcolax. Got enema 12/11/23 - Multimodal pain therapy: scheduled tylenol, prn oxycodone, dilaudid prn for breakthrough - Weightbearing: stand pivot transfer RLE, NWB LLE. - DVT PPx: SCD, ASA 81 mg BID - Drain: HV x1 removed 12/12 - ACS consulted for ileus: NGT removed, tolerating regular diet, signed off - Continue home meds: as indicated Dispo: SNF; medically clear for discharge This plan was discussed with the attending, Dr. Navarro. This patient will be followed by ortho trauma team (All Epic chat preferred): 1st call: Raul Hayward PGY1 2nd call: Thad Marie PGY2 3rd call: Fausto Zendejas PGY3 Thad Marie MD Orthopaedic Surgery PGY-2 GUALBERTO received call from Shukri Mcduffie. Shukri reports interest in [facility]. Referral submitted for review. GUALBERTO asked [facility] [place] if they have a bed available. GUALBERTO will continue to follow. [facility] cannot accept. [facility] state they do not have a bed available. GUALBERTO updated Meri Mcduffie. Geoff.Mayank is agreeable to referral being submitted to SNFs in their area. Referrals submitted for review. GUALBERTO will continue to follow. ENID Tovar Orthopaedic Surgery Progress Note: S: NAEON. AFVSS. Pain controlled on current regimen. Denies any new onset numbness, tingling or weakness. Denies nausea, vomiting, chest pain, dyspnea, or calf tenderness. Denies any fever or chills. Abdominal pain much improved. Several BM yesterday. Tolerating regular diet. O: Constitutional: NAD, resting comfortably in bed CV: RRR per peripheral pulses, limbs wwp GI: distended Psych: Appropriate mood and behavior MSK: Bilateral lower extremities/Pelvis -Post-operative dressing in place without strikethrough bleeding. -Motor intact in DF/PF/EHL/FHL -SILT in saph/sural/SPN/DPN distributions -Foot wwp, palpable DP pulse RLE, dopplerable DP/PT pulse LLE -Compartments soft and compressible, no pain with passive dorsiflexion A/P: 48yo M s/p anterior pelvis ORIF, perc fixation posterior pelvis on 12/[address] Navarro. Recovering appropriately - NPO - Bowel Regimen: Colace, senna, dulcolax. Got enema 12/11/23 - Multimodal pain therapy: scheduled tylenol, prn oxycodone, dilaudid prn for breakthrough - Weightbearing: stand pivot transfer RLE, NWB LLE. - DVT PPx: SCD, ASA 81 mg BID - Drain: HV x1 removed 12/12 - ACS consulted for ileus: NGT removed, tolerating regular diet, signed off - Continue home meds: as indicated Dispo: SNF; medically clear for discharge This plan was discussed with the attending, Dr. Navarro. This patient will be followed by ortho trauma team (All Epic chat preferred): 1st call: Raul Hayward PGY1 2nd call: Thad Mraie PGY2 3rd call: Fausto Zendejas PGY3 Thad Marie MD Orthopaedic Surgery PGY-2 Physical Therapy Physical Therapy Treatment Patient Name: Prosper Milian Today's Date: 12/13/2023 Time Calculation Start Time: 1602 Stop Time: 1625 Time Calculation (min): 23 min Assessment/Plan PT Assessment End of Session Communication: Bedside nurse Assessment Comment: Pt tolerated session well. Reports 4/10 soreness with LE ther ex. Unrated pain in standing on R LE. Pt completed sit to stand transfer with Mod Ax1, standing pivots with CGA. Maintained NWB L LE throguhout session. Pt continues to benefit from skilled PT and remains appropriate for moderate intensity PT upon discharge. End of Session Patient Position: Bed, 3 rail up, Alarm off, not on at start of session PT Plan Inpatient/Swing Bed or Outpatient: Inpatient PT Plan Treatment/Interventions: Bed mobility, Transfer training, Balance training, Neuromuscular re-education, Strengthening, Endurance training, Range of motion, Therapeutic exercise, Therapeutic activity, Home exercise program, Positioning, Postural re-education, Wheelchair management PT Plan: Skilled PT PT Frequency: 3 times per week PT Discharge Recommendations: Moderate intensity level of continued care Equipment Recommended upon Discharge: (TBD at next level of care) PT Recommended Transfer Status: Assist x1, Assistive device (RW for stand pivot transfers) PT - OK to Discharge: Yes (PT eval complete and DC rec made) General Visit Information: PT Visit PT Received On: 12/13/23 General Reason for Referral: 48 year old male s/p anterior pelvis ORIF, percutaneous fixation on 12/08/23. Past Medical History Relevant to Rehab: s/p SENIOR LIVING 09/16/23 pubic symphysis injury Prior to Session Communication: Bedside nurse Patient Position Received: Bed, 3 rail up, Alarm off, not on at start of session General Comment: Pt cleared for PT by RN. Pt alert and agreeable to PT. Subjective Precautions: Precautions LE Weight Bearing Status: (NWB L LE, stand pivot WB R LE) Medical Precautions: Fall precautions Objective Pain: Pain Assessment Pain Assessment: 0-10 Pain Score: 0 - No pain Pain Interventions: Repositioned, Rest (LE ther ex, sit to stand transfer, pivoting in standing) Response to Interventions: pain increased to 4/10 with ther ex, unable to rate pain with standing Cognition: Cognition Overall Cognitive Status: Within Functional Limits Postural Control: Postural Control Posture Comment: posterior lean onto B UEs in sitting, WFL in standing with RW Static Sitting Balance Static Sitting-Balance Support: Bilateral upper extremity supported, Feet supported Static Sitting-Level of Assistance: Close supervision Dynamic Sitting Balance Dynamic Sitting-Balance Support: Bilateral upper extremity supported, Feet supported Dynamic Sitting-Balance: Reaching for objects Dynamic Sitting-Comments: close supervision Static Standing Balance Static Standing-Balance Support: Bilateral upper extremity supported (RW) Static Standing-Level of Assistance: Contact guard Static Standing-Comment/Number of Minutes: NWB L LE Dynamic Standing Balance Dynamic Standing-Balance Support: Bilateral upper extremity supported (RW) Dynamic Standing-Balance: Turning Dynamic Standing-Comments: NWB L LE Activity Tolerance: Activity Tolerance Endurance: Tolerates 10 - 20 min exercise with multiple rests Treatments: Therapeutic Exercise Therapeutic Exercise Performed: Yes Therapeutic Exercise Activity 1: supine ankle pumps, heel slides, glute sets, quad sets, hip abd/add, SAQx3 hold 2x10 each LE. Therapeutic Activity Therapeutic Activity Performed: Yes Therapeutic Activity 1: bed mobility, transfers, brief standing pivots Bed Mobility Bed Mobility: Yes Bed Mobility 1 Bed Mobility 1: Supine to sitting Level of Assistance 1: Moderate assistance (trunk and L LE management) Bed Mobility 2 Bed Mobility 2: Sitting to supine Level of Assistance 2: Minimum assistance Bed Mobility Comments 2: L LE management Bed Mobility 3 Bed Mobility 3: Rolling right Level of Assistance 3: Close supervision Bed Mobility Comments 3: use of bed rails Transfers Transfer: Yes Transfer 1 Transfer From 1: Bed to Transfer to 1: Stand Technique 1: Sit to stand, Stand to sit Transfer Device 1: Walker, Gait belt Transfer Level of Assistance 1: Moderate assistance Trials/Comments 1: VCs for hand placement for sit to stand transfer Transfers 2 Technique 2: Stand pivot Transfer Device 2: Walker (Gait belt) Transfer Level of Assistance 2: Contact guard Trials/Comments 2: pivoting 90* to R in standing, then 90* back to L, then pivoting laterally about 1/2ft to reach HOB Outcome Measures: [facility] Basic Mobility Turning from your back to your side while in a flat bed without using bedrails: A lot Moving from lying on your back to sitting on the side of a flat bed without using bedrails: A lot Moving to and from bed to chair (including a wheelchair): A lot Standing up from a chair using your arms (e.g. wheelchair or bedside chair): A lot To walk in hospital room: Total Climbing 3-5 steps with railing: Total Basic Mobility - Total Score: 10 Education Documentation Precautions, taught by Cheryl Morrow PT at 12/13/2023 5:00 PM. Learner: Patient Readiness: Acceptance Method: Explanation Response: Verbalizes Understanding Comment: CHRISTOPHER Hodge LE Mobility Training, taught by Cheryl Morrow PT at 12/13/2023 5:00 PM. Learner: Patient Readiness: Acceptance Method: Explanation Response: Verbalizes Understanding Comment: NWB L LE Education Comments No comments found. Encounter Problems Encounter Problems (Active) Balance STG - Maintains dynamic sitting balance without upper extremity support and supervision. (Progressing) Mobility Pt will perform bed mobility with min assist. (Progressing) Start: 12/09/23 Expected End: 12/23/23 PT Transfers Pt will perform stand pivot transfer with fww and mod assist while maintaining WB precautions. (Progressing) Start: 12/09/23 Expected End: 12/23/23 Called [facility] regarding insurance claim paying for SNF. Stated they can't use insurance to pay for the SNF. Veronica Soto RN, [facility] ACUTE CARE SURGERY - PROGRESS NOTE Patient Name: Prosper Milian Admit Date: [id number] : 1975 AGE: 48 y.o. GENDER: male TODAY'S ASSESSMENT AND PLAN OF CARE: Prosper Milian is a 48 y.o. male who presented for elective orthopedic procedure on 12/07 and underwent Anterior pelvic ring ORIF and posterior pelvic ring screw fixation with Dr Navarro. ACS consulted for ileus. Patient doing well this AM. States his abdominal bloating and discomfort is improving. Passing flatus and had BM. Tolerating clears without n/v Recs: - No indication for surgical intervention - Ok to advance diet as tolerated - Rest of care per primary team - ACS will sign off, please call with questions or if condition changes. Patient discussed with attending Dr. Jorgito Iyer APRN-[facility] Acute Care Surgery Pager [phone] CHIEF COMPLAINT / EVENTS LAST 24HRS / HPI: NAEO. Patient endorsing passing gas and having bowel movements. Tolerating clears without n/v MEDICAL HISTORY / ROS: Admission history and ROS reviewed. Pertinent changes as follows: none PHYSICAL EXAM: Temp: [36.3 C (97.3 F)] Resp: [18] BP: (142-144)/(92-104) SpO2: [97 %] Physical Exam Neurological: Awake, alert, conversive Respiratory/Thorax: even, unlabored Gastrointestinal: Distended but improving from prior exam, non tender, soft. Lower midline and b/l flank incisions with dressing and drain in place per ortho Skin: warm, dry Musculoskeletal: HENRY Eyes: non-icteric Extremities: no edema Psychological: appropriate mood/affect IMAGING SUMMARY: KUB showed distended bowel loops LABS: Results from last 7 days Lab Units 12/12/23 0714 12/10/23 0946 WBC AUTO x10*3/uL 13.1* 11.8* HEMOGLOBIN g/dL 11.8* 12.9* HEMATOCRIT % 34.8* 40.2* PLATELETS AUTO x10*3/uL 296 286 NEUTROS PCT AUTO % 73.7 74.3 LYMPHS PCT AUTO % 14.7 15.4 MONOS PCT AUTO % 8.3 7.3 EOS PCT AUTO % 2.0 1.4 Results from last 7 days Lab Units 12/12/23 0714 12/10/23 0946 SODIUM mmol/L 139 136 POTASSIUM mmol/L 3.4* 4.2 CHLORIDE mmol/L 103 95* CO2 mmol/L 25 31 BUN mg/dL 14 12 CREATININE mg/dL 0.87 1.01 CALCIUM mg/dL 7.8* 9.3 GLUCOSE mg/dL 89 109* I have reviewed all medications, laboratory results, and imaging pertinent for today's encounter. Orthopaedic Surgery Progress Note: S: NAEON. AFVSS. Pain controlled on current regimen. Denies any new onset numbness, tingling or weakness. Denies nausea, vomiting, chest pain, dyspnea, or calf tenderness. Denies any fever or chills. Abdominal pain much improved. Several BM yesterday. O: Constitutional: NAD, resting comfortably in bed CV: RRR per peripheral pulses, limbs wwp GI: distended Psych: Appropriate mood and behavior MSK: Bilateral lower extremities/Pelvis -Post-operative dressing in place without strikethrough bleeding. -HV in place holding suction -Motor intact in DF/PF/EHL/FHL -SILT in saph/sural/SPN/DPN distributions -Foot wwp, palpable DP pulse RLE, dopplerable DP/PT pulse LLE -Compartments soft and compressible, no pain with passive dorsiflexion A/P: 48yo M s/p anterior pelvis ORIF, perc fixation posterior pelvis on 12/[address] Navarro. Recovering appropriately - NPO - Bowel Regimen: Colace, senna, dulcolax. Got enema 12/11/23 - Multimodal pain therapy: scheduled tylenol, prn oxycodone, dilaudid prn for breakthrough - Weightbearing: stand pivot transfer RLE, NWB LLE. - DVT PPx: SCD, ASA 81 mg BID - Drain: HVx1, please record output at the end of each 8 hour nursing shift - will remove today - ACS consulted for ileus: NGT removed, clears now transitioned to broth, HOB elevated to 30 degrees at all times, K>4, Mg>2 - Continue home meds: as indicated Dispo: PT recs SNF, pending placement, drain, ACS recs for ileus This plan was discussed with the attending, Dr. Navarro. This patient will be followed by ortho trauma team (All Epic chat preferred): 1st call: Raul Hayward PGY1 2nd call: Thad Marie PGY2 3rd call: Fausto Zendejas PGY3 Thad Marie MD Orthopaedic Surgery PGY-2 Occupational Therapy Occupational Therapy Occupational Therapy Treatment Name: Prosper Milian : 1975 Date: 12/12/23 Room: [address] [place] [address] Time Calculation Start Time: 1342 Stop Time: 1405 Time Calculation (min): 23 min Assessment: End of Session Communication: Bedside nurse End of Session Patient Position: Bed, 2 rail up (bed in chair position) Plan: Treatment Interventions: ADL retraining, Functional transfer training, Patient/family training, Equipment evaluation/education, Compensatory technique education OT Frequency: 3 times per week OT Discharge Recommendations: Moderate intensity level of continued care OT Recommended Transfer Status: Maximum assist, Assist of 2 OT - OK to Discharge: Yes Subjective General: OT Last Visit OT Received On: 12/12/23 Prior to Session Communication: Bedside nurse Patient Position Received: Bed, 3 rail up, Alarm off, not on at start of session Family/Caregiver Present: Yes Caregiver Feedback: pt's girlfriend present during session General Comment: Pt in supine on arrival, c/o abdominal discomfort d/t ilius, willing to participate in OT. Pt tolerated mobilizing to EOB with assistance and practiced one brief STS using WW and Assistance. Precautions: LE Weight Bearing Status: (NWB L LE, Stand Pivot transfer R LE) Medical Precautions: Fall precautions Vitals: Vital Signs Heart Rate: (102-118) BP: (!) 142/104 Lines/Tubes/Drains: Closed/Suction Drain Left;Proximal;Anterior Thigh Accordion (Active) Number of days: 4 Cognition: Orientation Level: Oriented X4 Pain Assessment: Pain Assessment Pain Assessment: 0-10 Pain Score: (unrated) Pain Type: Acute pain Pain Location: Abdomen Pain Interventions: Repositioned Objective Activities of Daily Living: UE Dressing UE Dressing Level of Assistance: Minimum assistance UE Dressing Comments: required assistance with R sleeve d/t IV LE Dressing Sock Level of Assistance: Maximum assistance Bed Mobility/Transfers: Bed Mobility Bed Mobility: Yes Bed Mobility 1 Bed Mobility 1: Supine to sitting Level of Assistance 1: Moderate assistance (x2) Bed Mobility 2 Bed Mobility 2: Sitting to supine Level of Assistance 2: Moderate assistance Transfers Transfer: Yes Transfer 1 Transfer From 1: Sit to Transfer to 1: Stand Technique 1: Sit to stand Transfer Device 1: Walker Transfer Level of Assistance 1: Moderate assistance Trials/Comments 1: Pt required pulling up on walker handles and cues to maintain L LE NWB Balance: Dynamic Sitting Balance Dynamic Sitting-Comments: Pt worked on lateral scooting with Min A and verbal cues to maintain WB restrictions Outcome Measures: [facility] Daily Activity Putting on and taking off regular lower body clothing: A lot Bathing (including washing, rinsing, drying): A lot Putting on and taking off regular upper body clothing: A lot Toileting, which includes using toilet, bedpan or urinal: A lot Taking care of personal grooming such as brushing teeth: A little Eating Meals: None Daily Activity - Total Score: 15 Education Documentation No documentation found. Education Comments No comments found. Goals: Encounter Problems Encounter Problems (Active) ADLs Patient with complete upper body dressing with set-up level of assistance donning and doffing all UE clothes with no adaptive equipment while edge of bed (Progressing) Start: 12/09/23 Expected End: 12/30/23 Patient with complete lower body dressing with minimal assist level of assistance donning and doffing all LE clothes with PRN adaptive equipment while edge of bed (Progressing) Start: 12/09/23 Expected End: 12/30/23 Patient will complete toileting including hygiene clothing management/hygiene with minimal assist level of assistance and bedside commode. (Progressing) Start: 12/09/23 Expected End: 12/30/23 COGNITION/SAFETY Patient will recall and adhere to weight bearing and /or ROM restrictions with all ADL and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 (4-6), first line, Starting on Tata 12/08/23 at 1809, If ordered PRN for pain, nurse is permitted to administer this medication for higher pain scores based on patient preference? Yes phenoL (Chloraseptic) 1.4 % mouth/throat spray 1 spray 1 spray, Mouth/Throat, Every 2 hour PRN, sore throat, Starting on 12/11/23 at 1141, Instruct patient to spit out after 15 seconds. promethazine (Phenergan) 12.5 mg in sodium chloride 0.9% 50 mL IV 12.5 mg, intravenous, Administer over 15 Minutes, Every 6 hours PRN, nausea/vomiting, first line, Starting on 12/11/23 at 2110 promethazine (Phenergan) suppository 25 mg(Linked Group 3) 25 mg, rectal, Every 12 hours PRN, nausea/vomiting, first line, Starting on 12/11/23 at 2053, 1st Line. Give TN if patient is unable to take orally. If inadequate response within 60 minutes, proceed to next-line agent or contact provider if no further options ordered. promethazine (Phenergan) tablet 25 mg(Linked Group 3) 25 mg, oral, Every 6 hours PRN, nausea/vomiting, first line, Starting on 12/11/23 at 2053, 1st Line. If inadequate response within 60 minutes, proceed to next-line agent or contact provider if no further options ordered. simethicone (Mylicon) chewable tablet 40 mg 40 mg, oral, 4 times daily PRN, flatulence, Starting on Tue12/09/23 at 1319 sodium chloride (Jay) 0.65 % nasal spray 1 spray 1 spray, Each Nostril, 4 times daily PRN, congestion, Starting on Tue12/13/23 at 1350 Linked Groups Order Group 1: pantoprazole (ProtoNix) EC tablet 40 mgJump to med 40 mg, oral, Daily before breakfast, First dose on 12/11/23 at 0700, Use pantoprazole tablet if patient can take meds orally. Do not crush, chew, or split. Or esomeprazole (NexIUM) suspension 40 mgJump to med 40 mg, nasoduodenal tube, Daily before breakfast, First dose on 12/11/23 at 0700, Use esomeprazole suspension if patient cannot take meds orally but has feeding tube. Add 15 mL water to catheter-tipped syringe, add granules from packet. Shake and let thicken. Administer through NG tube within 30 minutes. Refill with 15 mL of water, shake and flush NG tube. Or pantoprazole (ProtoNix) injection 40 mgJump to med 40 mg, intravenous, Daily before breakfast, First dose on 12/11/23 at 0700, Use pantoprazole injection if patient unable to take meds orally or per feeding tube. Reconstitute with 10 mL sodium chloride 0.9% for injection. Push over 2 minutes. Group 2: ondansetron (Zofran) tablet 4 mgJump to med 4 mg, oral, Every 8 hours PRN, nausea/vomiting, first line, Starting on [facility] 12/08/23 at 2006 Or ondansetron (Zofran) injection 4 mgJump to med 4 mg, intravenous, Every 8 hours PRN, nausea/vomiting, second line, Starting on [facility] 12/08/23 at 2006, Give IV if patient is unable to take orally. When administering via IV Push, administer over 3-5 minutes. Group 3: promethazine (Phenergan) tablet 25 mgJump to med 25 mg, oral, Every 6 hours PRN, nausea/vomiting, first line, Starting on 12/11/23 at 2052, 1st Line. If inadequate response within 60 minutes, proceed to next- line agent or contact provider if no further options ordered. Or promethazine (Phenergan) suppository 25 mgJump to med 25 mg, rectal, Every 12 hours PRN, nausea/vomiting, first line, Starting on 12/11/23 at 2052, 1st Line. Give TN if patient is unable to take orally. If inadequate response within 60 minutes, proceed to next-line agent or contact provider if no further options ordered. 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 [facility]. provides no warranty or guarantee of the accuracy or completeness of information in this document.
== END 2024-01-25 08:54 | disposition home or self-care (01) ==
PROVIDERS: PCP Family Medicine; Visit Provider Nurse Practitioner
DX: M79.18 Myalgia, other site (principal); M47.816 Spondylosis without myelopathy or radiculopathy, lumbar region; S32.9XXA Fracture of unspecified parts of lumbosacral spine and pelvis, initial encounter for closed fracture; Z79.891 Long term (current) use of opiate analgesic; G89.4 Chronic pain syndrome
CPT/HCPCS: G0463

== ENCOUNTER 2024-03-06 14:45 | Outpatient (RCR) | payer BC, SELFPAY | END 2024-05-04 11:55 | disposition home or self-care (01) | LOC: PT 14:45 | PROVIDERS: PCP Family Medicine | DX: R10.2 Pelvic and perineal pain (principal) | CPT/HCPCS: 97010; 97014; 97026; 97110; 97112; 97162; 97530 ==

== ENCOUNTER 2024-04-26 13:42 | Outpatient (OUT) | payer BC, SELFPAY ==
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
== END 2024-04-26 13:43 | disposition home or self-care (01) ==
PROVIDERS: PCP Family Medicine; Visit Provider Nurse Practitioner
DX: M47.816 Spondylosis without myelopathy or radiculopathy, lumbar region (principal); M46.1 Sacroiliitis, not elsewhere classified; M62.838 Other muscle spasm; Z79.891 Long term (current) use of opiate analgesic
CPT/HCPCS: G0463

== ENCOUNTER 2024-05-01 07:56 | Emergency (ER) | payer BC, SELFPAY ==
[2024-05-01] VITALS (26 sets, daily range): BP systolic 113–171; BP diastolic 82–95; PULSE 59–76; TEMP 36.6; O2SAT 95–99; BMI 49.6
--- NOTE | 2024-05-01 08:05 | ECG_ITS ---
[facility] Test Date: 2024-05-01 Pat Name: SUSHILA YATES Department: Room: - Gender: Male [place] Gilder: : 1975 Requested By: CHANTAL MART Order Number: [id number] Reading MD: JUS JENKINS Measurements Intervals Epps Rate: 65 P: 38 MO: 178 QRS: 12 QRSD: 104 T: 17 QT: 402 QTc: 414 Interpretive Statements 1100 Sinus rhythm 1102 Sinus arrhythmia 5211 Minimal voltage criteria for LVH, may be normal variant 9130 borderline ECG Compared to ECG 08/19/2021 12:07:53 Left ventricular hypertrophy now present Sinus tachycardia no longer present Electronically Signed On 05-01-2024 22:31:42 EDT by JUS JENKINS
--- NOTE | 2024-05-01 08:05 | XR_ITS ---
[address] [address] Patient Name: SUSHILA YATES MRN: [id number] date: 1975 Sex: M Assigned Patient Location: ER Current Patient Location: ER Accession/Order Number: [id number] Exam Date: 05/01/2024 08:02 Report Date: 05/01/2024 08:26 At the request of: LEOBARDO JAMESON Procedure: XR chest 1V EXAM: CHEST 2 VIEWS HISTORY: cp TECHNIQUE: PA and lateral views chest. COMPARISON: None. FINDINGS: The lungs are clear. There is no focal lung consolidation, pleural effusion or pneumothorax. Pulmonary vasculature is within normal limits. Mild cardiomegaly. XR/XR chest 1V IMPRESSION: 1. No acute cardiopulmonary disease. 2. Mild cardiomegaly. Electronically authenticated by: TRUNG NEVAREZ Date: 05/01/2024 08:26
--- OUTSIDE RECORDS SUMMARY | 2024-05-01 08:28 | XMS_ITS | CCD ---
Author Organization [facility] Care Team Providers Care Strainer Tender Name Role Phone Chantal Mart MD Primary Care Provider HAMILTON ELDER Referring Unavailable CHANTAL MART Primary Care Unavailable CHANTAL MART Primary Care Unavailable HAMILTON ELDER Referring Unavailable Chantal Mart Unavailable Austin Barahona Unavailable Kurtis Patel Admitting UnavailKurtis Maldonado Attending UnavailChantal Vincent Primary Care Unavailable PANTOJA ., DR ALLYSON Tellez Attending Unavailable PANTOJA ., DR ALLYSON Tellez Admitting Unavailable MA ., HANNA Consulting Unavailable MART, DR CHANTAL Gonzalez Primary Care Unavailable MART, DR CHANTAL Gonzalez Primary Care Unavailable LAKSHMIPATHY ., SANDY Admitting Ginger vailable LAKSHMIPATHMary ., SANDY Attending Ginger vailable PANTOJA ., [...] DR CHANTAL Gonzalez Attending Unavailable MART, DR CHANTAL Gonzalez Admitting Unavailable MART, DR CHANTAL Gonzalez Primary Care Unavailable MART, DR CHANTAL Gonzalez Primary Care Unavailable BARRON, DR CHANTAL Gonzalez Consulting Unavailable BARRON, DR CHANTAL Gonzalez Attending Unavailable MART, DR CHANTAL Gonzalez Admitting Unavailable NEFCY, ALFONZO [...] Attending Unavailable Unavailable Primary Care Provider UnavailMayela Sy Attending Unavailable Chantal Mart MD Primary Care Provider NAPORA, ADAM K Attending Unavailable CHANTAL MART Primary Care Unavailable NAPORA, ADAM K Attending Unavailable CHANTAL MART Primary Care Unavailable NAPORA, ADAM K Attending Unavailable NAPORA, ADAM K Referring Unavailable NAPORA, ADAM K Admitting Unavailable NAPORA, ADAM K Attending Unavailable CHANTAL MART Primary Care Unavailable NAPORA, ADAM K Referring Unavailable CHANTAL MART Primary Care Unavailable NAPORA, ADAM K Referring Unavailable CHANTAL MART Primary Care Unavailable NAPORA, ADAM K Referring Unavailable CHANTAL MART Primary Care Unavailable Allergies Allergy Classification Reported Allergen(s) Allergy Type Date of Onset Reaction(s) Facility Nalbuphine (2 sources) [facility]uphine [facility]on[facility] (2 sources) traMADol Drug Allergy 1 Nausea And Vomiting [employer]Alerts (15 sources) Nalbuphine; Translations: [Nubain] Drug Allergy 7 BP dropped [facility] Repository (10 sources) traMADol; Translations: [TRAMADOL] Drug Allergy 6 Nausea And Vomiting General Assembly Other (6 sources) Nubain *ANALGESICS - OPIOID* Propensity to adverse reactions Unknown General Assembly Other (3 sources) Allergies Reconciled Propensity to adverse reactions Unknown General Assembly Other (3 sources) patient allergy list reviewed by nurse or physicia Propensity to adverse reactions 9 Comment:Done General Assembly Other (7 sources) Nalbuphine; Translations: [NALBUPHINE] Drug Allergy 7 [facility] (1 source) No Known Medication Allergies; Translations: [No Known Medication Allergies] Propensity to adverse reactions (disorder) [facility] Repository Medications Current Medications Medication Drug Class(es) [...] pain mild (1-3), first line, Starting on Tata 12/08/23 at [...] as needed Orally every 6 hrs Active [id number] 200 actuat albuterol 0.09 mg/actuat metered dose [...] x 4 more days for December, Active benzocaine 15 mg / menthol [...] Starting on 12/10/23 at 0723 calcium carbonate 500 mg chewable [...] Discontinued (Therapy completed) take 2 tablets by mo ut once daily at bedtime Cyclobenzaprine HCl 10 [...] Start: 12-08-2023 take 1 tablet by olive every eight hours as needed ondansetron (Zofran) [...] 2 hour PRN, sore throat, Starting on Tue12/11/23 at 1141, Instruct patient to spit out after 15 seconds. polyethylene glycol 3350 69209 mg powder for oral solution (1 source) [...] line, Starting on Tue12/11/23 at 2110 sennosides, jail 8.6 mg oral tablet (1 source) Start: [...] sources) Sciatica; Translations: [Sciatica, left side] Onset: 10-01-2018 07-15-2021 Episodic Syncope (16 sources) Syncope and collapse; [...] Solomon, STUDY: XR PELVIS 3+ VIEWS; ; 02/29/2024 12:59 pm INDICATION: Signs/Symptoms:pelvi s fracture. COMPARISON: 02/01/2020 ACCESSION NUMBER(S): [id number] ORDERING CLINICIAN: ADAM NAVARRO FINDINGS: Pelvis, five views Postsurgical changes in the sacrum and the pubic symphysis with screws and plate and screw fixation respectively. The hardware is intact. There is no malalignment. No significant degenerative changes IMPRESSION: Postsurgical change in the pelvis with intact hardware. No malalignment seen MACRO: None Signed by: Cesar Solomon 03/01/2024 6:55 PM Dictation workstation: [id number] [facility] Comment on above: Order Comment: 5 vie w of the pelvis XR PELVIS 3+ VIEWSon 024 XR PELVIS 3+ VIEWS Interpreted By: Sushma Black, STUDY: Pelvis, 5 views. INDICATION: Signs/Symptoms:pelvi s fracture. COMPARISON: 12/28/2023. ACCESSION NUMBER(S): [id number] ORDERING CLINICIAN: ADAM NAVARRO FINDINGS: No acute fracture or malalignment. Anterior pelvic ring fusion with plate and screws. Posterior pelvic ring fusion with trans sacral trans iliac screws. Hardware is intact without perihardware fractures or lucencies. Pelvic ring is maintained. Bilateral hip joints are unremarkable with well preserved joint spaces. Soft tissues are within normal limits. IMPRESSION: Anterior and posterior pelvic ring fusion without hardware complication. MACRO: None. Signed by: Sushma Black 02/02/2024 7:24 PM Dictation workstation: [id number] [facility] Comment on above: Order Comment: 5 vie w of the pelvis XR PELVIS 3+ VIEWSon 024 XR PELVIS 3+ VIEWS Interpreted By: Caryn Norman, STUDY: XR PELVIS 3+ VIEWS; ; 12/28/2023 12:54 pm INDICATION: Signs/Symptoms:pain. COMPARISON: Pelvis radiographs dated 12/08/2023. ACCESSION NUMBER(S): [id number] ORDERING CLINICIAN: ADAM NAVARRO FINDINGS: Extensive postsurgical [...] Caryn Norman 12/30/2023 12:52 PM Dictation workstation: [id number] [facility] Comment on above: Order Comment: 5v pe lvis (AP/inlet/outlet/Judet's) Basic metabolic 2000 panelon 12-14-2023 Anion gap [Moles/Vol] 12 mmol/L 10 - 2 0 mmol/L [facility] Calcium [Mass/Vol] 8.3 mg/dL Low 8.6 - 10. 6 mg/dL [facility] Chloride [Moles/Vol] 103 mmol/L 98 - 10 7 mmol/L [facility] CO2 [Moles/Vol] 27 mmol/L 21 - 32 mmol/L [facility] Creatinine [Mass/Vol] 0.82 mg/dL 0.50 - 1.30 mg/dL [facility] eGFR - PINF [facility] Comment on above: Calculations of cris mated GFR are performed using the 2020 CKD-EPI Study Refit equation without the race variable for the IDMS-Traceable creatinine methods. https://jasn.asnjournals.org/content//ASN.70921 57148 Glucose [Mass/Vol] 103 mg/dL High 74 - 99 mg/dL [facility] Interpretation and review of laboratory results Abnormal [facility] Potassium [Moles/Vol] 3.6 mmol/L 3.5 - 5.3 mmol/L [facility] Sodium [Moles/Vol] 138 mmol/L 136 - 145 mmol/L [facility] Urea nitrogen [Mass/Vol] 14 mg/dL 6 - 23 mg/dL [facility] Anion gap [Moles/Vol] 12 mmol/L Normal 10-20 [facility] Comment on above: Performed By: #### 2 4321-2 ####ANASTACIO Hodge ([id number])[facility] ([facility])[address] [place] [address] Calcium [Mass/Vol] 8.3 mg/dL Low 8.6-10.6 [facility] Comment on above: Performed By: #### 2 4321-2 ####ANASTACIO WOOD L ([id number])[facility] ([facility])[address] [place] [address] Chloride [Moles/Vol] 103 mmol/L Normal 98-107 [facility] Comment on above: Performed By: #### 2 4321-2 ####ANASTACIO Hodge ([id number])[facility] ([facility])[address] [place] [address] CO2 [Moles/Vol] 27 mmol/L Normal 21-32 [facility] Comment on above: Performed By: #### 2 4321-2 ####ANASTACIO Hodge ([id number])[facility] ([facility])[address] [place] [address] Creatinine [Mass/Vol] 0.82 mg/dL Normal 0.50-1.30 [facility] Comment on above: Performed By: #### 2 4321-2 ####ANASTACIO Hodge ([id number])[facility] ([facility])[address] [place] [address] GFR/1.73 sq M.predicted MDRD (S/P/Bld) [Vol rate/Area] mL/min/{1.73_m2} Normal >60 [facility] Comment on above: Result Comment: Calc ulations of estimated GFR are performed using the 2020 CKD-EPI Study Refit equation without the race variable for the IDMS-Traceable creatinine methods. https://jasn.asnjournals.org/content///ASN.44459 76338 Performed By: #### 2 4321-2 ####ANASTACIO Hodge ([id number])[facility] ([facility])[address] [place] [address] Glucose [Mass/Vol] 103 mg/dL High 74-99 [facility] Comment on above: Performed By: #### 2 4321-2 ####ANASTACIO Hodge ([id number])[facility] ([facility])[address] [place] [address] Potassium [Moles/Vol] 3.6 mmol/L Normal 3.5-5.3 [facility] Comment on above: Performed By: #### 2 4321-2 ####ANASTACIO WOOD L ([id number])[facility] ([facility])[address] [place] [address] Sodium [Moles/Vol] 138 mmol/L Normal 136-145 [facility] Comment on above: Performed By: #### 2 4321-2 ####ANASTACIO WOOD L ([id number])[facility] ([facility])[address] [place] [address] Urea nitrogen [Mass/Vol] 14 mg/dL Normal 6-23 [facility] Comment on above: Performed By: #### 2 4321-2 ####ANASTACIO WOOD L ([id number])[facility] ([facility])[address] [place] [address] CBC W Auto Differential pane l (Bld)on 12-14-2023 Basophils (Bld) [#/Vol] 0.05 10*3/uL [facility] Basophils/100 WBC (Bld) 0.6 % 0.0 - 2.0 % [facility] Eosinophils (Bld) [#/Vol] 0.30 10*3/uL [facility] Eosinophils/100 WBC (Bld) 3.3 % 0.0 - 6.0 % [facility] Erythrocyte distribution width (RBC) [Ratio] 13.1 % 11.5 - 14.5 % [facility] Hematocrit (Bld) [Volume fraction] 32.7 % Low 41.0 - 52.0 % [facility] Hemoglobin (Bld) [Mass/Vol] 10.8 g/dL Low 13.5 - 17.5 g/dL [facility] Immature granulocytes (Bld) [#/Vol] 0.13 10*3/uL [facility] Immature granulocytes/100 WBC (Bld) 1.4 % High 0.0 - 0.9 % [facility] Comment on above: Immature Granulocyte Count (IG) includes promyelocytes, myelocytes and metamyelocytes but does not include bands. Percent differential counts (%) should be interpreted in the context of the absolute cell counts (cells/UL). Interpretation and review of laboratory results Abnormal [facility] Lymphocytes (Bld) [#/Vol] 1.61 10*3/uL [facility] Lymphocytes/100 WBC (Bld) 17.8 % 13.0 - 44.0 % [facility] MCH (RBC) [Entitic mass] 28.1 pg 26.0 - 34.0 pg [facility] MCHC (RBC) [Mass/Vol] 33.0 g/dL 32.0 - 36.0 g/dL [facility] MCV (RBC) [Entitic vol] 85 fL 80 - 100 fL [facility] Monocytes (Bld) [#/Vol] 0.71 10*3/uL [facility] Monocytes/100 WBC (Bld) 7.8 % 2.0 - 10.0 % [facility] Neutrophils (Bld) [#/Vol] 6.25 10*3/uL [facility] Comment on above: Percent differential counts (%) should be interpreted in the context of the absolute cell counts (cells/uL). Neutrophils/100 WBC (Bld) 69.1 % 40.0 - 80.0 % [facility] Nucleated RBC/100 WBC (Bld) [Ratio] 0.0 % [facility] Platelets (Bld) [#/Vol] 280 10*3/uL [facility] RBC (Bld) [#/Vol] 3.85 10*6/uL Low [facility] WBC (Bld) [#/Vol] 9.1 10*3/uL [facility] Basophils (Bld) [#/Vol] 0.05 x10*3/uL Normal 0.00-0.10 [facility] Comment on above: Performed By: #### 5 7021-8 ####ANASTACIO Hodge ([id number])[facility] ([facility])[address] [place] [address] Basophils/100 WBC (Bld) 0.6 % Normal 0.0-2.0 [facility] Comment on above: Performed By: #### 5 7021-8 ####ANASTACIO Hodge ([id number])[facility] ([facility])[id number] [place] [address] Eosinophils (Bld) [#/Vol] 0.30 x10*3/uL Normal 0.00-0.70 [facility] Comment on above: Performed By: #### 5 7021-8 ####ANASTACIO Hodge ([id number])[facility] ([facility])[address] [place] [address] Eosinophils/100 WBC (Bld) 3.3 % Normal 0.0-6.0 [facility] Comment on above: Performed By: #### 5 7021-8 ####ANASTACIO Hodge ([id number])[facility] ([facility])[address] [place] [address] Erythrocyte distribution width (RBC) [Ratio] 13.1 % Normal 11.5-14.5 [facility] Comment on above: Performed By: #### 5 7021-8 ####ANASTACIO Hodge ([id number])[facility] ([facility])[address] [place] [address] Hematocrit (Bld) [Volume fraction] 32.7 % Low 41.0-52.0 [facility] Comment on above: Performed By: #### 5 7021-8 ####ANASTACIO Hodge ([id number])[facility] ([facility])[address] [place] [address] Hemoglobin (Bld) [Mass/Vol] 10.8 g/dL Low 13.5-17.5 [facility] Comment on above: Performed By: #### 5 7021-8 ####ANASTACIO WOOD L ([id number])[facility] ([facility])[address] [place] [address] Immature granulocytes (Bld) [#/Vol] 0.13 x10*3/uL Normal 0.00-0.70 [facility] Comment on above: Performed By: #### 5 7021-8 ####ANASTACIO Hodge ([id number])[facility] ([facility])[address] [place] [address] Immature granulocytes/100 WBC (Bld) 1.4 % High 0.0-0.9 [facility] Comment on above: Result Comment: Brittany ture Granulocyte Count (IG) includes promyelocytes, myelocytes and metamyelocytes but does not include bands. Percent differential counts (%) should be interpreted in the context of the absolute cell counts (cells/UL). Performed By: #### 5 7021-8 ####ANASTACIO Hodge ([id number])[facility] ([facility])[address] [place] [address] Lymphocytes (Bld) [#/Vol] 1.61 x10*3/uL Normal 1.20-4.80 [facility] Comment on above: Performed By: #### 5 7021-8 ####ANASTACIO Hodge ([id number])[facility] ([facility])[address] [place] [address] Lymphocytes/100 WBC (Bld) 17.8 % Normal 13.0-44.0 [facility] Comment on above: Performed By: #### 5 7021-8 ####ANASTACIO Hodge ([id number])[facility] ([facility])[address] [place] [address] MCH (RBC) [Entitic mass] 28.1 pg Normal 26.0-34.0 [facility] Comment on above: Performed By: #### 5 7021-8 ####ANASTACIO Hodge ([id number])[facility] ([facility])[address] [place] [address] MCHC (RBC) [Mass/Vol] 33.0 g/dL Normal 32.0-36.0 [facility] Comment on above: Performed By: #### 5 7021-8 ####ANASTACIO Hodge ([id number])[facility] ([facility])[address] [place] [address] MCV (RBC) [Entitic vol] 85 fL Normal 80-100 [facility] Comment on above: Performed By: #### 5 7021-8 ####ANASTACIO Hodge ([id number])[facility] ([facility])[address] [place] [address] Monocytes (Bld) [#/Vol] 0.71 x10*3/uL Normal 0.10-1.00 [facility] Comment on above: Performed By: #### 5 7021-8 ####ANASTACIO Hodge ([id number])[facility] ([facility])[address] [place] [address] Monocytes/100 WBC (Bld) 7.8 % Normal 2.0-10.0 [facility] Comment on above: Performed By: #### 5 7021-8 ####ANASTACIO Hodge ([id number])[facility] ([facility])[address] [place] [address] Neutrophils (Bld) [#/Vol] 6.25 x10*3/uL Normal 1.20-7.70 [facility] Comment on above: Result Comment: Perc ent differential counts (%) should be interpreted in the context of the absolute cell counts (cells/uL). Performed By: #### 5 7021-8 ####ANASTACIO Hodge ([id number])[facility] ([facility])[address] [place] [address] Neutrophils/100 WBC (Bld) 69.1 % Normal 40.0-80.0 [facility] Comment on above: Performed By: #### 5 7021-8 ####ANASTACIO Hodge ([id number])[facility] ([facility])[address] [place] [address] Nucleated RBC/100 WBC (Bld) [Ratio] 0.0 /100 WBCs Normal 0.0-0.0 [facility] Comment on above: Performed By: #### 5 7021-8 ####ANASTACIO Hodge ([id number])[facility] ([facility])[address] [place] [address] Platelets (Bld) [#/Vol] 280 x10*3/uL Normal 150-450 [facility] Comment on above: Performed By: #### 5 7021-8 ####ANASTACIO Hodge ([id number])[facility] ([facility])[address] [place] [address] RBC (Bld) [#/Vol] 3.85 x10*6/uL Low 4.50-5.90 [facility] Comment on above: Performed By: #### 5 7021-8 ####ANASTACIO Hodge ([id number])[facility] ([facility])[address] [place] [address] WBC (Bld) [#/Vol] 9.1 x10*3/uL Normal 4.4-11.3 [facility] Comment on above: Performed By: #### 5 7021-8 ####ANASTACIO Hodge ([id number])[facility] ([facility])[address] [place] [address] Electrocardiogram, 12-lead P RN ACS symptomsOrdered By: Dustin Lyman on 12-14-2023 Atrial Rate 104 BPM [facility] Work Phone: [phone] P Deland 43 degrees [facility] Work Phone: [phone] P Offset 196 ms [facility] Work Phone: [phone] P Onset 139 ms [facility] Work Phone: [phone] TN Interval 154 ms [facility] Work Phone: [phone] Q Onset 216 ms [facility] Work Phone: [phone] QRS Count 17 beats [facility] Work Phone: [phone] QRS Duration 94 ms [facility] Work Phone: [phone] QT Interval 346 ms [facility] Work Phone: [phone] QTC Calculation(Bazett) 454 ms [facility] Work Phone: [phone] QTC Fredericia 415 ms [facility] Work Phone: [phone] R Deland 9 degrees [facility] Work Phone: [phone] T Deland 27 degrees [facility] Work Phone: T Offset 389 ms [facility] Work Phone: Ventricular Rate [address] [facility] Work Phone: [facility] Work Phone: Electrocardiogram, 12-lead P RN ACS symptomson 12-14-2023 Sinus tachycardia Minimal voltage criteria for LVH, may be normal variant Borderline ECG No previous ECGs available Confirmed by Dustin Lyman ([id number]) on 12/14/2023 2:58:33 PM MUSE Dustin Lyman MD - 12/14/2023 Sinus tachycardia Minimal voltage criteria for LVH, may be normal variant Borderline ECG No previous ECGs available Confirmed by Dustin Lyman ([id number]) on 12/14/2023 2:58:33 PM [facility] Work Phone: Magnesiumon 12-14-2023 Magnesium [Mass/Vol] 2.11 mg/dL 1.60 - 2.40 mg/dL [facility] Magnesium [Mass/Vol] 2.11 mg/dL Normal 1.60-2.40 [facility] Comment on above: Performed By: #### 1 9123-9 ####ANASTACIO Hodge ([id number])[facility] ([facility])[address] [place] [address] Magnesium [Mass/Vol]on 12-13 Interpretation and review of laboratory results Normal [facility] No Panel Informationon 12-13 [facility] Basic metabolic 2000 panelon 12-13-2023 Anion gap [Moles/Vol] 13 mmol/L 10 - 2 0 mmol/L [facility] Calcium [Mass/Vol] 8.5 mg/dL Low 8.6 - 10. 6 mg/dL [facility] Chloride [Moles/Vol] 100 mmol/L 98 - 10 7 mmol/L [facility] CO2 [Moles/Vol] 28 mmol/L 21 - 32 mmol/L [facility] Creatinine [Mass/Vol] 0.92 mg/dL 0.50 - 1.30 mg/dL [facility] eGFR - PINF [facility] Comment on above: Calculations of cris mated GFR are performed using the 2020 CKD-EPI Study Refit equation without the race variable for the IDMS-Traceable creatinine methods. https://jasn.asnjournals.org/content/early//ASN.58504 27889 Glucose [Mass/Vol] 101 mg/dL High 74 - 99 mg/dL [facility] Interpretation and review of laboratory results Abnormal [facility] Potassium [Moles/Vol] 3.9 mmol/L 3.5 - 5.3 mmol/L [facility] Sodium [Moles/Vol] 137 mmol/L 136 - 145 mmol/L [facility] Urea nitrogen [Mass/Vol] 16 mg/dL 6 - 23 mg/dL [facility] Anion gap [Moles/Vol] 13 mmol/L Normal 10-20 [facility] Comment on above: Performed By: #### 2 4321-2 ####ANASTACIO WOOD L ([id number])[facility] ([facility])[address] [place] [address] Calcium [Mass/Vol] 8.5 mg/dL Low 8.6-10.6 [facility] Comment on above: Performed By: #### 2 4321-2 ####ANASTACIO KENNYMOTZER L ([id number])[facility] ([facility])[address] [place] [address] Chloride [Moles/Vol] 100 mmol/L Normal 98-107 [facility] Comment on above: Performed By: #### 2 4321-2 ####ANASTACIO KENNYMOTZER L ([id number])[facility] ([facility])[address] [place] [address] CO2 [Moles/Vol] 28 mmol/L Normal 21-32 [facility] Comment on above: Performed By: #### 2 4321-2 ####ANASTACIO WOOD L ([id number])[facility] ([facility])[address] [place] [address] Creatinine [Mass/Vol] 0.92 mg/dL Normal 0.50-1.30 [facility] Comment on above: Performed By: #### 2 4321-2 ####ANASTACIO Hodge ([id number])[facility] ([facility])[address] [place] [address] GFR/1.73 sq M.predicted MDRD (S/P/Bld) [Vol rate/Area] mL/min/{1.73_m2} Normal >60 [facility] Comment on above: Result Comment: Calc ulations of estimated GFR are performed using the 2020 CKD-EPI Study Refit equation without the race variable for the IDMS-Traceable creatinine methods. https://jasn.asnjournals.org/content//ASN.01709 07230 Performed By: #### 2 4321-2 ####ANASTACIO Hodge ([id number])[facility] ([facility])[address] [place] [address] Glucose [Mass/Vol] 101 mg/dL High 74-99 [facility] Comment on above: Performed By: #### 2 4321-2 ####ANASTACIO Hodge ([id number])[facility] ([facility])[address] [place] [address] Potassium [Moles/Vol] 3.9 mmol/L Normal 3.5-5.3 [facility] Comment on above: Performed By: #### 2 4321-2 ####ANASTACIO Hodge ([id number])[facility] ([facility])[address] [place] [address] Sodium [Moles/Vol] 137 mmol/L Normal 136-145 [facility] Comment on above: Performed By: #### 2 4321-2 ####ANASTACIO Hodge ([id number])[facility] ([facility])[address] [place] [address] Urea nitrogen [Mass/Vol] 16 mg/dL Normal 6-23 [facility] Comment on above: Performed By: #### 2 4321-2 ####ANASTACIO Hodge ([id number])[facility] ([facility])[address] [place] [address] CBC W Auto Differential pane l (Bld)on 12-13-2023 Basophils (Bld) [#/Vol] 0.06 10*3/uL [facility] Basophils/100 WBC (Bld) 0.5 % 0.0 - 2.0 % [facility] Eosinophils (Bld) [#/Vol] 0.40 10*3/uL [facility] Eosinophils/100 WBC (Bld) 3.4 % 0.0 - 6.0 % [facility] [facility] Erythrocyte distribution width (RBC) [Ratio] 13.1 % 11.5 - 14.5 % [facility] Hematocrit (Bld) [Volume fraction] 36.4 % Low 41.0 - 52.0 % [facility] Hemoglobin (Bld) [Mass/Vol] 12.0 g/dL Low 13.5 - 17.5 g/dL [facility] Immature granulocytes (Bld) [#/Vol] 0.17 10*3/uL [facility] Immature granulocytes/100 WBC (Bld) 1.4 % High 0.0 - 0.9 % [facility] Comment on above: Immature Granulocyte Count (IG) includes promyelocytes, myelocytes and metamyelocytes but does not include bands. Percent differential counts (%) should be interpreted in the context of the absolute cell counts (cells/UL). Interpretation and review of laboratory results Abnormal [facility] Lymphocytes (Bld) [#/Vol] 2.07 10*3/uL [facility] Lymphocytes/100 WBC (Bld) 17.5 % 13.0 - 44.0 % [facility] MCH (RBC) [Entitic mass] 28.1 pg 26.0 - 34.0 pg [facility] MCHC (RBC) [Mass/Vol] 33.0 g/dL 32.0 - 36.0 g/dL [facility] MCV (RBC) [Entitic vol] 85 fL 80 - 100 fL [facility] Monocytes (Bld) [#/Vol] 0.87 10*3/uL [facility] Monocytes/100 WBC (Bld) 7.3 % 2.0 - 10.0 % [facility] Neutrophils (Bld) [#/Vol] 8.28 10*3/uL High [facility] Comment on above: Percent differential counts (%) should be interpreted in the context of the absolute cell counts (cells/uL). Neutrophils/100 WBC (Bld) 69.9 % 40.0 - 80.0 % [facility] Nucleated RBC/100 WBC (Bld) [Ratio] 0.0 % [facility] Platelets (Bld) [#/Vol] 307 10*3/uL [facility] RBC (Bld) [#/Vol] 4.27 10*6/uL Low [facility] WBC (Bld) [#/Vol] 11.9 10*3/uL High [facility] Basophils (Bld) [#/Vol] 0.06 x10*3/uL Normal 0.00-0.10 [facility] Comment on above: Performed By: #### 5 7021-8 ####ANASTACIO Hodge ([id number])[facility] ([facility])[address] [place] [address] Basophils/100 WBC (Bld) 0.5 % Normal 0.0-2.0 [facility] Comment on above: Performed By: #### 5 7021-8 ####ANASTACIO KENNYMOTZER L ([id number])[facility] ([facility])[address] [place] [address] Eosinophils (Bld) [#/Vol] 0.40 x10*3/uL Normal 0.00-0.70 [facility] Comment on above: Performed By: #### 5 7021-8 ####ANASTACIO KENNYMODEBI L ([id number])[facility] ([facility])[address] [place] [address] Eosinophils/100 WBC (Bld) 3.4 % Normal 0.0-6.0 [facility] Comment on above: Performed By: #### 5 7021-8 ####ANASTACIO KENNYMODEBI L ([id number])[facility] ([facility])[address] [place] [address] Erythrocyte distribution width (RBC) [Ratio] 13.1 % Normal 11.5-14.5 [facility] Comment on above: Performed By: #### 5 7021-8 ####ANASTACIO Hodge ([id number])[facility] ([facility])[address] [place] [address] Hematocrit (Bld) [Volume fraction] 36.4 % Low 41.0-52.0 [facility] Comment on above: Performed By: #### 5 7021-8 ####ANASTACIO Hodge ([id number])[facility] ([facility])[address] [place] [address] Hemoglobin (Bld) [Mass/Vol] 12.0 g/dL Low 13.5-17.5 [facility] Comment on above: Performed By: #### 5 7021-8 ####ANASTACIO Hodge ([id number])[facility] ([facility])[address] [place] [address] Immature granulocytes (Bld) [#/Vol] 0.17 x10*3/uL Normal 0.00-0.70 [facility] Comment on above: Performed By: #### 5 7021-8 ####ANASTACIO Hodge ([id number])[facility] ([facility])[address] [place] [address] Immature granulocytes/100 WBC (Bld) 1.4 % High 0.0-0.9 [facility] Comment on above: Result Comment: Brittany ture Granulocyte Count (IG) includes promyelocytes, myelocytes and metamyelocytes but does not include bands. Percent differential counts (%) should be interpreted in the context of the absolute cell counts (cells/UL). Performed By: #### 5 7021-8 ####ANASTACIO Hodge ([id number])[facility] ([facility])[address] [place] [address] Lymphocytes (Bld) [#/Vol] 2.07 x10*3/uL Normal 1.20-4.80 [facility] Comment on above: Performed By: #### 5 7021-8 ####ANASTACIO Hodge ([id number])[facility] ([facility])[address] [place] [address] Lymphocytes/100 WBC (Bld) 17.5 % Normal 13.0-44.0 [facility] Comment on above: Performed By: #### 5 7021-8 ####ANASTACIO Hdoge ([id number])[facility] ([facility])[address] [place] [address] MCH (RBC) [Entitic mass] 28.1 pg Normal 26.0-34.0 [facility] Comment on above: Performed By: #### 5 7021-8 ####ANASTACIO Hodge ([id number])[facility] ([facility])[address] [place] [address] MCHC (RBC) [Mass/Vol] 33.0 g/dL Normal 32.0-36.0 [facility] Comment on above: Performed By: #### 5 7021-8 ####ANASTACIO Hodge ([id number])[facility] ([facility])[address] [place] [address] MCV (RBC) [Entitic vol] 85 fL Normal 80-100 [facility] Comment on above: Performed By: #### 5 7021-8 ####ANASTACIO Hodge ([id number])[facility] ([facility])[address] [place] [address] Monocytes (Bld) [#/Vol] 0.87 x10*3/uL Normal 0.10-1.00 [facility] Comment on above: Performed By: #### 5 7021-8 ####ANASTACIO Hodge ([id number])[facility] ([facility])[address] [place] [address] Monocytes/100 WBC (Bld) 7.3 % Normal 2.0-10.0 [facility] Comment on above: Performed By: #### 5 7021-8 ####ANASTACIO Hodge ([id number])[facility] ([facility])[address] [place] [address] Neutrophils (Bld) [#/Vol] 8.28 x10*3/uL High 1.20-7.70 [facility] Comment on above: Result Comment: Perc ent differential counts (%) should be interpreted in the context of the absolute cell counts (cells/uL). Performed By: #### 5 7021-8 ####ANASTACIO Hodge ([id number])[facility] ([facility])[address] [place] [address] Neutrophils/100 WBC (Bld) 69.9 % Normal 40.0-80.0 [facility] Comment on above: Performed By: #### 5 7021-8 ####ANASTACIO Hodge ([id number])[facility] ([facility])[address] [place] [address] Nucleated RBC/100 WBC (Bld) [Ratio] 0.0 /100 WBCs Normal 0.0-0.0 [facility] Comment on above: Performed By: #### 5 7021-8 ####ANASTACIO Hodge ([id number])[facility] ([facility])[address] [place] [address] Platelets (Bld) [#/Vol] 307 x10*3/uL Normal 150-450 [facility] Comment on above: Performed By: #### 5 7021-8 ####ANASTACIO Hodge ([id number])[facility] ([facility])[address] [place] [address] RBC (Bld) [#/Vol] 4.27 x10*6/uL Low 4.50-5.90 [facility] Comment on above: Performed By: #### 5 7021-8 ####ANASTACIO Hodge ([id number])[facility] ([facility])[address] [place] [address] WBC (Bld) [#/Vol] 11.9 x10*3/uL High 4.4-11.3 [facility] Comment on above: Performed By: #### 5 7021-8 ####ANASTACIO WOOD L ([id number])[facility] ([facility])[address] [place] [address] Magnesiumon 12-13-2023 Magnesium [Mass/Vol] 2.12 mg/dL 1.60 - 2.40 mg/dL [facility] Magnesium [Mass/Vol] 2.12 mg/dL Normal 1.60-2.40 [facility] Comment on above: Performed By: #### 1 9123-9 ####ANASTACIO WOOD L ([id number])[facility] ([facility])[address] [place] [address] Magnesium [Mass/Vol]on 12-12 Interpretation and review of laboratory results Normal [facility] No Panel Informationon 12-12 [facility] Basic metabolic 2000 panelon 12-12-2023 Anion gap [Moles/Vol] 14 mmol/L 10 - 2 0 mmol/L [facility] Calcium [Mass/Vol] 7.8 mg/dL Low 8.6 - 10. 6 mg/dL [facility] Chloride [Moles/Vol] 103 mmol/L 98 - 10 7 mmol/L [facility] CO2 [Moles/Vol] 25 mmol/L 21 - 32 mmol/L [facility] Creatinine [Mass/Vol] 0.87 mg/dL 0.50 - 1.30 mg/dL [facility] eGFR - PINF [facility] Comment on above: Calculations of cris mated GFR are performed using the 2020 CKD-EPI Study Refit equation without the race variable for the IDMS-Traceable creatinine methods. https://jasn.asnjournals.org/content//ASN.42221 04076 Glucose [Mass/Vol] 89 mg/dL 74 - 99 mg/dL [facility] Interpretation and review of laboratory results Abnormal [facility] Potassium [Moles/Vol] 3.4 mmol/L Low 3.5 - 5.3 mmol/L [facility] Sodium [Moles/Vol] 139 mmol/L 136 - 145 mmol/L [facility] Urea nitrogen [Mass/Vol] 14 mg/dL 6 - 23 mg/dL [facility] Anion gap [Moles/Vol] 14 mmol/L Normal 10-20 [facility] Comment on above: Performed By: #### 2 4321-2 ####ANASTACIO WOOD L ([id number])[facility] ([facility])[address] [place] [address] Calcium [Mass/Vol] 7.8 mg/dL Low 8.6-10.6 [facility] Comment on above: Performed By: #### 2 4321-2 ####ANASTACIO HAMMTZER L ([id number])[facility] ([facility])[address] [place] [address] Chloride [Moles/Vol] 103 mmol/L Normal 98-107 [facility] Comment on above: Performed By: #### 2 4321-2 ####ANASTACIO WOOD L ([id number])[facility] ([facility])[address] [place] [address] CO2 [Moles/Vol] 25 mmol/L Normal 21-32 [facility] Comment on above: Performed By: #### 2 4321-2 ####ANASTACIO WOOD L ([id number])[facility] ([facility])[address] [place] [address] Creatinine [Mass/Vol] 0.87 mg/dL Normal 0.50-1.30 [facility] Comment on above: Performed By: #### 2 4321-2 ####ANASTACIO HAMMTZER L ([id number])[facility] ([facility])[address] [place] [address] GFR/1.73 sq M.predicted MDRD (S/P/Bld) [Vol rate/Area] mL/min/{1.73_m2} Normal >60 [facility] Comment on above: Result Comment: Calc ulations of estimated GFR are performed using the 2020 CKD-EPI Study Refit equation without the race variable for the IDMS-Traceable creatinine methods. https://jasn.asnjournals.org/content//ASN.14314 70072 Performed By: #### 2 4321-2 ####ANASTACIO Hodge ([id number])[facility] ([facility])[address] [place] [address] Glucose [Mass/Vol] 89 mg/dL Normal 74-99 [facility] Comment on above: Performed By: #### 2 4321-2 ####ANASTACIO Hodge ([id number])[facility] ([facility])[address] [place] [address] Potassium [Moles/Vol] 3.4 mmol/L Low 3.5-5.3 [facility] Comment on above: Performed By: #### 2 4321-2 ####ANASTACIO Hodge ([id number])[facility] ([facility])[address] [place] [address] Sodium [Moles/Vol] 139 mmol/L Normal 136-145 [facility] Comment on above: Performed By: #### 2 4321-2 ####ANASTACIO Hodge ([id number])[facility] ([facility])[address] [place] [address] Urea nitrogen [Mass/Vol] 14 mg/dL Normal 6-23 [facility] Comment on above: Performed By: #### 2 4321-2 ####ANASTACIO Hodge ([id number])[facility] ([facility])[address] [place] [address] CBC W Auto Differential pane l (Bld)on 12-12-2023 Basophils (Bld) [#/Vol] 0.07 10*3/uL [facility] Basophils/100 WBC (Bld) 0.5 % 0.0 - 2.0 % [facility] Eosinophils (Bld) [#/Vol] 0.26 10*3/uL [facility] Eosinophils/100 WBC (Bld) 2.0 % 0.0 - 6.0 % [facility] Erythrocyte distribution width (RBC) [Ratio] 12.8 % 11.5 - 14.5 % [facility] Hematocrit (Bld) [Volume fraction] 34.8 % Low 41.0 - 52.0 % [facility] Hemoglobin (Bld) [Mass/Vol] 11.8 g/dL Low 13.5 - 17.5 g/dL [facility] Immature granulocytes (Bld) [#/Vol] 0.10 10*3/uL [facility] Immature granulocytes/100 WBC (Bld) 0.8 % 0.0 - 0.9 % [facility] Comment on above: Immature Granulocyte Count (IG) includes promyelocytes, myelocytes and metamyelocytes but does not include bands. Percent differential counts (%) should be interpreted in the context of the absolute cell counts (cells/UL). Interpretation and review of laboratory results Abnormal [facility] Lymphocytes (Bld) [#/Vol] 1.93 10*3/uL [facility] Lymphocytes/100 WBC (Bld) 14.7 % 13.0 - 44.0 % [facility] MCH (RBC) [Entitic mass] 27.8 pg 26.0 - 34.0 pg [facility] MCHC (RBC) [Mass/Vol] 33.9 g/dL 32.0 - 36.0 g/dL [facility] MCV (RBC) [Entitic vol] 82 fL 80 - 100 fL [facility] Monocytes (Bld) [#/Vol] 1.09 10*3/uL High [facility] Monocytes/100 WBC (Bld) 8.3 % 2.0 - 10.0 % [facility] Neutrophils (Bld) [#/Vol] 9.66 10*3/uL High [facility] Comment on above: Percent differential counts (%) should be interpreted in the context of the absolute cell counts (cells/uL). Neutrophils/100 WBC (Bld) 73.7 % 40.0 - 80.0 % [facility] Nucleated RBC/100 WBC (Bld) [Ratio] 0.0 % [facility] Platelets (Bld) [#/Vol] 296 10*3/uL [facility] RBC (Bld) [#/Vol] 4.25 10*6/uL Low [facility] WBC (Bld) [#/Vol] 13.1 10*3/uL [facility] Basophils (Bld) [#/Vol] 0.07 x10*3/uL Normal 0.00-0.10 [facility] Comment on above: Performed By: #### 5 7021-8 #### ANASTACIO Hodge ([id number]) [facility] ([facility]) [address] [place] [address] Basophils/100 WBC (Bld) 0.5 % Normal 0.0-2.0 [facility] Comment on above: Performed By: #### 5 7021-8 #### ANASTACIO Hodge ([id number]) [facility] ([facility]) [address] [place] [address] Eosinophils (Bld) [#/Vol] 0.26 x10*3/uL Normal 0.00-0.70 [facility] Comment on above: Performed By: #### 5 7021-8 #### ANASTACIO WOOD L ([id number]) [facility] ([facility]) [address] [place] [address] Eosinophils/100 WBC (Bld) 2.0 % Normal 0.0-6.0 [facility] Comment on above: Performed By: #### 5 7021-8 #### ANASTACIO Hodge ([id number]) [facility] ([facility]) [address] [place] [address] Erythrocyte distribution width (RBC) [Ratio] 12.8 % Normal 11.5-14.5 [facility] Comment on above: Performed By: #### 5 7021-8 #### ANASTACIO WOOD L ([id number]) [facility] ([facility]) [address] [place] [address] Hematocrit (Bld) [Volume fraction] 34.8 % Low 41.0-52.0 [facility] Comment on above: Performed By: #### 5 7021-8 #### ANASTACIO WOOD L ([id number]) [facility] ([facility]) [address] [place] [address], [place] [address] Hemoglobin (Bld) [Mass/Vol] 11.8 g/dL Low 13.5-17.5 [facility] Comment on above: Performed By: #### 5 7021-8 #### ANASTACIO Hodge ([id number]) [facility] ([facility]) [address] [place] [address] Immature granulocytes (Bld) [#/Vol] 0.10 x10*3/uL Normal 0.00-0.70 [facility] Comment on above: Performed By: #### 5 7021-8 #### ANASTACIO Hodge ([id number]) [facility] ([facility]) [address] [place] [address] Immature granulocytes/100 WBC (Bld) 0.8 % Normal 0.0-0.9 [facility] Comment on above: Result Comment: Brittany ture Granulocyte Count (IG) includes promyelocytes, myelocytes and metamyelocytes but does not include bands. Percent differential counts (%) should be interpreted in the context of the absolute cell counts (cells/UL). Performed By: #### 5 7021-8 #### ANASTACIO Hodge ([id number]) [facility] ([facility]) [address] [place] [address] Lymphocytes (Bld) [#/Vol] 1.93 x10*3/uL Normal 1.20-4.80 [facility] Comment on above: Performed By: #### 5 7021-8 #### ANASTACIO Hodge ([id number]) [facility] ([facility]) [address] [place] [address] Lymphocytes/100 WBC (Bld) 14.7 % Normal 13.0-44.0 [facility] Comment on above: Performed By: #### 5 7021-8 #### ANASTACIO Hodge ([id number]) [facility] ([facility]) [address] [place] [address] MCH (RBC) [Entitic mass] 27.8 pg Normal 26.0-34.0 [facility] Comment on above: Performed By: #### 5 7021-8 #### ANASTACIO Hodge ([id number]) [facility] ([facility]) [address] [place] [address] MCHC (RBC) [Mass/Vol] 33.9 g/dL Normal 32.0-36.0 [facility] Comment on above: Performed By: #### 5 7021-8 #### ANASTACIO WOOD L ([id number]) [facility] ([facility]) [address] [place] [address] MCV (RBC) [Entitic vol] 82 fL Normal 80-100 [facility] Comment on above: Performed By: #### 5 7021-8 #### ANASTACIO Hodge ([id number]) [facility] ([facility]) [address] [place] [address] Monocytes (Bld) [#/Vol] 1.09 x10*3/uL High 0.10-1.00 [facility] Comment on above: Performed By: #### 5 7021-8 #### ANASTACIO WOOD L ([id number]) [facility] ([facility]) [address] [place] [address] Monocytes/100 WBC (Bld) 8.3 % Normal 2.0-10.0 [facility] Comment on above: Performed By: #### 5 7021-8 #### ANASTACIO KENNYMODEBI L ([id number]) [facility] ([facility]) [address] [place] [address] Neutrophils (Bld) [#/Vol] 9.66 x10*3/uL High 1.20-7.70 [facility] Comment on above: Result Comment: Perc ent differential counts (%) should be interpreted in the context of the absolute cell counts (cells/uL). Performed By: #### 5 7021-8 #### ANASTACIO KENNYMOTZSABINE L ([id number]) [facility] ([facility]) [address] [place] [address] Neutrophils/100 WBC (Bld) 73.7 % Normal 40.0-80.0 [facility] Comment on above: Performed By: #### 5 7021-8 #### ANASTACIO Hodge ([id number]) [facility] ([facility]) [address] [place] [address] Nucleated RBC/100 WBC (Bld) [Ratio] 0.0 /100 WBCs Normal 0.0-0.0 [facility] Comment on above: Performed By: #### 5 7021-8 #### ANASTACIO Hodge ([id number]) [facility] ([facility]) [address] [place] [address] Platelets (Bld) [#/Vol] 296 x10*3/uL Normal 150-450 [facility] Comment on above: Performed By: #### 5 7021-8 #### ANASTACIO Hodge ([id number]) [facility] ([facility]) [address] [place] [address] RBC (Bld) [#/Vol] 4.25 x10*6/uL Low 4.50-5.90 [facility] Comment on above: Performed By: #### 5 7021-8 #### ANASTACIO Hodge ([id number]) [facility] ([facility]) [address] [place] [address] WBC (Bld) [#/Vol] 13.1 x10*3/uL High 4.4-11.3 [facility] Comment on above: Performed By: #### 5 7021-8 #### ANASTACIO Hodge ([id number]) [facility] ([facility]) [address] [place] [address] Magnesiumon 12-12-2023 Magnesium [Mass/Vol] 1.81 mg/dL 1.60 - 2.40 mg/dL [facility] Magnesium [Mass/Vol] 1.81 mg/dL Normal 1.60-2.40 [facility] Comment on above: Performed By: #### 1 9123-9 #### ANASTACIO Hodge ([id number]) [facility] ([facility]) [address] [place] [address] Magnesium [Mass/Vol]on 12-11 Interpretation and review of laboratory results Normal [facility] No Panel Informationon 12-11 [facility] ECG 12-LEADon 12-11-2023 ECG 12-LEAD Ventricular Rate 104 Atrial Rate 104 P-R Interval 154 QRS Duration 94 Q-T Interval 346 QTC Calculation(Bazett) 454 P Deland 43 R Deland 9 T Deland 27 QRS Count 17 Q Onset 216 P Onset 139 P Offset 196 T Offset 389 QTC Fredericia 415 Diagnosis Sinus tachycardia Minimal voltage criteria for LVH, may be normal variant Borderline ECG No previous ECGs available Confirmed by Dustin Lyman ([id number]) on 12/14/2023 2:58:33 PM Normal [facility] XR ABDOMEN 1 VIEWon 12-11-19 24 XR ABDOMEN 1 VIEW Interpreted By: Victoriano Warren and Liller Gregory STUDY: XR ABDOMEN 1 VIEW; 12/11/2023 12:18 pm INDICATION: Signs/Symptoms:Confi rm NG tube placement. COMPARISON: 12/10/2023 ACCESSION NUMBER(S): [id number] ORDERING CLINICIAN: CORRIE CAI FINDINGS: Interval placement [...] Benny Matamoros. The study was interpreted at [facility] in [facility]. MACRO: none Signed by: Victoriano Warren 12/11/2023 4:14 PM Dictation workstation: [id number] Normal [facility] XR Abdomen Single viewon 1. Enteric tube projects over the expected location of the gastric antrum/proximal duodenum. 2. Similar gaseous distention of multiple loops of small bowel when compared to prior exam. I personally reviewed the images/study and I agree with the findings as stated above by resident physician, Dr. Benny Matamoros. The study was interpreted at [facility] in [facility]. MACRO: none Signed by: Victoriano Warren 12/11/2023 4:14 PM Dictation workstation: [id number] MMODAL Interpreted By: Victoriano Warren and Liller Gregory STUDY: XR ABDOMEN 1 VIEW; 12/11/2023 12:18 pm INDICATION: Signs/Symptoms:Confi rm NG tube placement. COMPARISON: 12/10/2023 ACCESSION NUMBER(S): [id number] ORDERING CLINICIAN: CORRIE MEDVED FINDINGS: Interval placement of enteric tube which projects over the expected location of the gastric antrum/proximal duodenum. Similar gaseous distention of multiple loops of bowel when compared to prior exam measuring up to 4.7 cm. No evidence to suggest pneumoperitoneum. Visualized lungs are clear. No acute osseous injury. MMODAL Laci Warren MD - 12/11/2023 Interpreted By: Victoriano Warren and Liller Gregory STUDY: XR ABDOMEN 1 VIEW; 12/11/2023 12:18 pm INDICATION: Signs/Symptoms:Confi rm NG tube placement. COMPARISON: 12/10/2023 ACCESSION NUMBER(S): [id number] ORDERING CLINICIAN: CORRIE TAVAREZVED FINDINGS: Interval placement of enteric tube which [...] Benny Matamoros. The study was interpreted at [facility] in [facility]. MACRO: none Signed by: Victoriano Warren 12/11/2023 4:14 PM Dictation workstation: [id number] [facility] Work Phone: [facility] Work Phone: Radiology Study observation (narrative) [facility] Work Phone: 1. Gaseous distention of multiple loops of bowel throughout the abdomen with overall nonobstructive bowel gas pattern. Findings compatible with postoperative ileus. 2. Postsurgical changes as described above. I personally reviewed the images/study and I agree with Leti Dumont DO's (medical transcription radiology) findings as stated. This study was interpreted at [place], [place]. MACRO: None Signed by: Victoriano Warren 12/11/2023 11:13 AM Dictation workstation: [id number] MMODAL Interpreted By: Victoriano Warren and Stephens Katherine STUDY: XR ABDOMEN 1 VIEW; 12/10/2023 11:52 pm INDICATION: Signs/Symptoms:c/f postop ileus. COMPARISON: Pelvic radiographs 12/08/2023 ACCESSION NUMBER(S): [id number] ORDERING CLINICIAN: ROXANNA BERMAN FINDINGS: Postsurgical changes [...] ileus. COMPARISON: Pelvic radiographs 12/08/2023 ACCESSION NUMBER(S): [id number] ORDERING CLINICIAN: ROXANNA BERMAN FINDINGS: Postsurgical changes [...] and I agree with Leti Dumont DO's (medical transcription radiology) findings as stated. This study was interpreted at [facility], [place], [place]. MACRO: None Signed by: Victoriano Warren 12/11/2023 11:13 AM Dictation workstation: [id number] [facility] Work Phone: XR Abdomen Single viewOrdere d By: Laci Warren on 12-11-2023 [facility] Work Phone: Basic metabolic 2000 panelon 12-10-2023 Anion gap [Moles/Vol] 14 mmol/L 10 - 2 0 mmol/L [facility] Calcium [Mass/Vol] 9.3 mg/dL 8.6 - 10. 6 mg/dL [facility] Chloride [Moles/Vol] 95 mmol/L Low 98 - 10 7 mmol/L [facility] CO2 [Moles/Vol] 31 mmol/L 21 - 32 mmol/L [facility] Creatinine [Mass/Vol] 1.01 mg/dL 0.50 - 1.30 mg/dL [facility] eGFR - PINF [facility] Comment on above: Calculations of cris mated GFR are performed using the 2020 CKD-EPI Study Refit equation without the race variable for the IDMS-Traceable creatinine methods. https://jasn.asnjournals.org/content/early/ASN.32544 07804 Glucose [Mass/Vol] 109 mg/dL High 74 - 99 mg/dL [facility] Interpretation and review of laboratory results Abnormal [facility] Potassium [Moles/Vol] 4.2 mmol/L 3.5 - 5.3 mmol/L [facility] Sodium [Moles/Vol] 136 mmol/L 136 - 145 mmol/L [facility] Urea nitrogen [Mass/Vol] 12 mg/dL 6 - 23 mg/dL [facility] Anion gap [Moles/Vol] 14 mmol/L Normal 10-20 [facility] Comment on above: Performed By: #### 2 4321-2 #### ANASTACIO WOOD L ([id number]) [facility] ([facility]) [address] [place] [address] 68573 Calcium [Mass/Vol] 9.3 mg/dL Normal 8.6-10.6 [facility] Comment on above: Performed By: #### 2 4321-2 #### ANASTACIO HAMMTZER L ([id number]) [facility] ([facility]) [address] [place] [address] 64267 Chloride [Moles/Vol] 95 mmol/L Low 98-107 [facility] Comment on above: Performed By: #### 2 4321-2 #### ANASTACIO WOOD L ([id number]) [facility] ([facility]) [address] [place] [address] 22449 CO2 [Moles/Vol] 31 mmol/L Normal 21-32 [facility] Comment on above: Performed By: #### 2 4321-2 #### ANASTACIO WOOD L ([id number]) [facility] ([facility]) [address] [place] [address] 13819 Creatinine [Mass/Vol] 1.01 mg/dL Normal 0.50-1.30 [facility] Comment on above: Performed By: #### 2 4321-2 #### ANASTACIO WOOD L ([id number]) [facility] ([facility]) [address] [place] [address] 58619 GFR/1.73 sq M.predicted MDRD (S/P/Bld) [Vol rate/Area] mL/min/{1.73_m2} Normal >60 [facility] Comment on above: Result Comment: Calc ulations of estimated GFR are performed using the 2020 CKD-EPI Study Refit equation without the race variable for the IDMS-Traceable creatinine methods. https://jasn.asnjournals.org/content//ASN.02132 32193 Performed By: #### 2 4321-2 #### ANASTACIO Hodge ([id number]) [facility] ([facility]) [address] [place] [address] Glucose [Mass/Vol] 109 mg/dL High 74-99 [facility] Comment on above: Performed By: #### 2 4321-2 #### ANASTACIO Hodge ([id number]) [facility] ([facility]) [address] [place] [address] 94595 Potassium [Moles/Vol] 4.2 mmol/L Normal 3.5-5.3 [facility] Comment on above: Performed By: #### 2 4321-2 #### ANASTACIO Hodge ([id number]) [facility] ([facility]) [address] [place] [address] 58166 Sodium [Moles/Vol] 136 mmol/L Normal 136-145 [facility] Comment on above: Performed By: #### 2 4321-2 #### ANASTACIO Hodge ([id number]) [facility] ([facility]) [address] [place] [address] 21699 Urea nitrogen [Mass/Vol] 12 mg/dL Normal 6-23 [facility] Comment on above: Performed By: #### 2 4321-2 #### ANASTACIO WOOD L ([id number]) [facility] ([facility]) [address] [place] [address] 82695 CBC W Auto Differential pane l (Bld)on 12-10-2023 Basophils (Bld) [#/Vol] 0.08 10*3/uL [facility] Basophils/100 WBC (Bld) 0.7 % 0.0 - 2.0 % [facility] Eosinophils (Bld) [#/Vol] 0.17 10*3/uL [facility] Eosinophils/100 WBC (Bld) 1.4 % 0.0 - 6.0 % [facility] Erythrocyte distribution width (RBC) [Ratio] 13.1 % 11.5 - 14.5 % [facility] Hematocrit (Bld) [Volume fraction] 40.2 % Low 41.0 - 52.0 % [facility] Hemoglobin (Bld) [Mass/Vol] 12.9 g/dL Low 13.5 - 17.5 g/dL [facility] Immature granulocytes (Bld) [#/Vol] 0.11 10*3/uL [facility] Immature granulocytes/100 WBC (Bld) 0.9 % 0.0 - 0.9 % [facility] Comment on above: Immature Granulocyte Count (IG) includes promyelocytes, myelocytes and metamyelocytes but does not include bands. Percent differential counts (%) should be interpreted in the context of the absolute cell counts (cells/UL). Interpretation and review of laboratory results Abnormal [facility] Lymphocytes (Bld) [#/Vol] 1.82 10*3/uL [facility] Lymphocytes/100 WBC (Bld) 15.4 % 13.0 - 44.0 % [facility] MCH (RBC) [Entitic mass] 27.6 pg 26.0 - 34.0 pg [facility] MCHC (RBC) [Mass/Vol] 32.1 g/dL 32.0 - 36.0 g/dL [facility] MCV (RBC) [Entitic vol] 86 fL 80 - 100 fL [facility] Monocytes (Bld) [#/Vol] 0.86 10*3/uL [facility] Monocytes/100 WBC (Bld) 7.3 % 2.0 - 10.0 % [facility] Neutrophils (Bld) [#/Vol] 8.78 10*3/uL High [facility] Comment on above: Percent differential counts (%) should be interpreted in the context of the absolute cell counts (cells/uL). Neutrophils/100 WBC (Bld) 74.3 % 40.0 - 80.0 % [facility] Nucleated RBC/100 WBC (Bld) [Ratio] 0.0 % [facility] Platelets (Bld) [#/Vol] 286 10*3/uL [facility] RBC (Bld) [#/Vol] 4.67 10*6/uL [facility] WBC (Bld) [#/Vol] 11.8 10*3/uL [facility] Basophils (Bld) [#/Vol] 0.08 x10*3/uL Normal 0.00-0.10 [facility] Comment on above: Performed By: #### 5 7021-8 #### ANASTACIO Hodge ([id number]) [facility] ([facility]) [address] [place] [address] 00375 Basophils/100 WBC (Bld) 0.7 % Normal 0.0-2.0 [facility] Comment on above: Performed By: #### 5 7021-8 #### ANASTACIO Hodge ([id number]) [facility] ([facility]) [address] [place] [address] 41804 Eosinophils (Bld) [#/Vol] 0.17 x10*3/uL Normal 0.00-0.70 [facility] Comment on above: Performed By: #### 5 7021-8 #### ANASTACIO Hodge ([id number]) [facility] ([facility]) [address] [place] [address] 30534 Eosinophils/100 WBC (Bld) 1.4 % Normal 0.0-6.0 [facility] Comment on above: Performed By: #### 5 7021-8 #### ANASTACIO Hodge ([id number]) [facility] ([facility]) [address] [place] [address] 13591 Erythrocyte distribution width (RBC) [Ratio] 13.1 % Normal 11.5-14.5 [facility] Comment on above: Performed By: #### 5 7021-8 #### ANASTACIO Hodge ([id number]) [facility] ([facility]) [address] [place] [address] 49555 Hematocrit (Bld) [Volume fraction] 40.2 % Low 41.0-52.0 [facility] Comment on above: Performed By: #### 5 7021-8 #### ANASTACIO Hodge ([id number]) [facility] ([facility]) [address] [place] [address] 17121 Hemoglobin (Bld) [Mass/Vol] 12.9 g/dL Low 13.5-17.5 [facility] Comment on above: Performed By: #### 5 7021-8 #### ANASTACIO Hodge ([id number]) [facility] ([facility]) [address] [place] [address] 07520 Immature granulocytes (Bld) [#/Vol] 0.11 x10*3/uL Normal 0.00-0.70 [facility] Comment on above: Performed By: #### 5 7021-8 #### ANASTACIO Hodge ([id number]) [facility] ([facility]) [address] [place] [address] 57672 Immature granulocytes/100 WBC (Bld) 0.9 % Normal 0.0-0.9 [facility] Comment on above: Result Comment: Brittany ture Granulocyte Count (IG) includes promyelocytes, myelocytes and metamyelocytes but does not include bands. Percent differential counts (%) should be interpreted in the context of the absolute cell counts (cells/UL). Performed By: #### 5 7021-8 #### ANASTACIO Hodge ([id number]) [facility] ([facility]) [address] [place] [address] 60741 Lymphocytes (Bld) [#/Vol] 1.82 x10*3/uL Normal 1.20-4.80 [facility] Comment on above: Performed By: #### 5 7021-8 #### ANASTACIO Hodge ([id number]) [facility] ([facility]) [address] [place] [address] 83117 Lymphocytes/100 WBC (Bld) 15.4 % Normal 13.0-44.0 [facility] Comment on above: Performed By: #### 5 7021-8 #### ANASTACIO Hodge ([id number]) [facility] ([facility]) [address] [place] [address] 89084 MCH (RBC) [Entitic mass] 27.6 pg Normal 26.0-34.0 [facility] Comment on above: Performed By: #### 5 7021-8 #### ANASTACIO Hodge ([id number]) [facility] ([facility]) [address] [place] [address] MCHC (RBC) [Mass/Vol] 32.1 g/dL Normal 32.0-36.0 [facility] Comment on above: Performed By: #### 5 7021-8 #### ANASTACIO Hodge ([id number]) [facility] ([facility]) [address] [place] [address] 39575 MCV (RBC) [Entitic vol] 86 fL Normal 80-100 [facility] Comment on above: Performed By: #### 5 7021-8 #### ANASTACIO Hodge ([id number]) [facility] ([facility]) [address] [place] [address] 40353 Monocytes (Bld) [#/Vol] 0.86 x10*3/uL Normal 0.10-1.00 [facility] Comment on above: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 [id number] 9#1.00TIFF Normal [facility] eGFRon 09-16-2023 eGFR 93 mL/min/1.73 m2 Normal >=59 [facility] Comment on above: Order Comment: Order added by Discern Expert. Performed By: #### 2 556880, 1750245, 6805710, 52075028, 4458622, 7911893, 54676478, 2057552 ####[address] [place] [address] XR CHEST 2 Von 12-10-2022 XR CHEST [...] ALFONZO FERNANDEZ Date: 2022-12-10 12:03 Normal [facility] CBC AUTO DIFFon 07-06-2022 BASO # 0.1 103/ul Normal 0.0-0.1 [facility] Comment on above: Performed By: #### B MP, TSH #### [facility] [address] [place] [address] Dr. Fazal Shearer Basophils/100 WBC (Bld) 0.8 % Normal 0.2-2.0 [facility] Comment on above: Performed By: #### B MP, TSH #### [facility] [address] [place] [address] Dr. Fazal Shearer EO # 0.2 103/ul Normal 0.0-0.7 [facility] Comment on above: Performed By: #### B MP, TSH #### [facility] [address] [place] [address] Dr. Fazal Shearer Eosinophils/100 WBC (Bld) 2.1 % Normal 0.9-7.0 [facility] Comment on above: Performed By: #### B MP, TSH #### [facility] [address] [place] [address] Dr. Fazal Shearer Erythrocyte distribution width (RBC) [Ratio] 12.7 % Normal 11.0-15.0 [facility] Comment on above: Performed By: #### B MP, TSH #### [facility] [address] [place] [address] Dr. Fazal Shearer Hematocrit (Bld) [Volume fraction] 45.2 % Normal 42.0-54.0 [facility] Comment on above: Performed By: #### B MP, TSH #### [facility] [address] [place] [address] Dr. Fazal Shearer Hemoglobin (Bld) [Mass/Vol] 15.4 g/dL Normal 14.0-18.0 [facility] Comment on above: Performed By: #### B MP, TSH #### [facility] [address] [place] [address] Dr. Fazal Shearer IG # 0.07 10e3/ul Critically high 0.00-0.03 [facility] Comment on above: Performed By: #### B MP, TSH #### [facility] [address] [place] [address] Dr. Fazal Shearer IG % 0.9 % Critically high 0.0-0.5 [facility] Comment on above: Performed By: #### B MP, TSH #### [facility] [address] [place] [address] Dr. Fazal Shearer LYMPH # 2.3 103/ul Normal 1.2-3.8 [facility] Comment on above: Performed By: #### B CATHY, TSH #### [facility] [address] [place] [address] Dr. Fazal Shearer Lymphocytes/100 WBC (Bld) 30.2 % Normal 20.5-60.0 [facility] Comment on above: Performed By: #### B MP, TSH #### [facility] [address] [place] [address] Dr. Fazal Shearer MANUAL DIFF REQ NO Normal [facility] Comment on above: Performed By: #### B CATHY, TSH #### [facility] [address] [place] [address] Dr. Fazal Shearer MCH (RBC) [Entitic mass] 28.8 pg Normal 25.9-34.0 [facility] Comment on above: Performed By: #### B CATHY, TSH #### [facility] [address] [place] [address] Dr. Fazal Shearer MCHC (RBC) [Mass/Vol] 34.1 g/dL Normal 29.9-35.2 [facility] Comment on above: Performed By: #### B CATHY, TSH #### [facility] [address] [place] [address] Dr. Fazal Shearer MCV (RBC) [Entitic vol] 84.6 fL Normal 80.0-94.0 [facility] Comment on above: Performed By: #### B CATHY, TSH #### [facility] [address] [place] [address] Dr. Fazal Shearer MONO # 0.6 103/ul Normal 0.3-0.8 [facility] Comment on above: Performed By: #### B CATHY, TSH #### [facility] [address] [place] [address] Dr. Fazal Shearer Monocytes/100 WBC (Bld) 7.5 % Normal 1.7-12.0 [facility] Comment on above: Performed By: #### B CATHY, TSH #### [facility] [address] [place] [address] Dr. Fazal Shearer NEUT # 4.4 103/ul Normal 1.4-6.5 [facility] Comment on above: Performed By: #### B CATHY, TSH #### [facility] [address] [place] [address] Dr. Fazal Shearer Neutrophils/100 WBC (Bld) 58.5 % Normal 43.0-75.0 [facility] Comment on above: Performed By: #### B CATHY, TSH #### [facility] [address] [place] [address] Dr. Fazal Shearer Platelet mean volume (Bld) [Entitic vol] 9.1 fL Critically low 9.5-13.5 [facility] Comment on above: Performed By: #### B CATHY, TSH #### [facility] [address] [place] [address] Dr. Fazal Shearer PLT 245 103/ul Normal 150-450 [facility] Comment on above: Performed By: #### B CATHY, TSH #### [facility] [address] [place] [address] Dr. Fazal Sheaerr RBC 5.34 106/ul Normal 4.70-6.10 [facility] Comment on above: Performed By: #### B CATHY, TSH #### [facility] [address] [place] [address] Dr. Fazal Shearer WBC 7.5 103/ul Normal 4.0-11.0 [facility] Comment on above: Performed By: #### B CATHY, TSH #### [facility] [address] [place] [address] Dr. Fazal Shearer PROF CHEM 8 (BAS METB)on Anion gap [Moles/Vol] 9.3 mmol/L Normal [facility] Comment on above: Performed By: #### B MP, TSH #### [facility] [address] [place] [address] Dr. Fazal Shearer Calcium [Mass/Vol] 9.2 mg/dL Normal 8.5-10.1 [facility] Comment on above: Performed By: #### B MP, TSH #### [facility] [address] [place] [address] Dr. Fazal Shearer Chloride [Moles/Vol] 105 mmol/L Normal 98-107 [facility] Comment on above: Performed By: #### B MP, TSH #### [facility] [address] [place] [address] Dr. Fazal Shearer CO2 [Moles/Vol] 31.9 mmol/L Normal 21.0-32.0 [facility] Comment on above: Performed By: #### B MP, TSH #### [facility] [address] [place] [address] Dr. Fazal Shearer Creatinine [Mass/Vol] 1.04 mg/dL Normal 0.70-1.30 [facility] Comment on above: Performed By: #### B MP, TSH #### [facility] [address] [place] [address] Dr. Fazal Shearer EGFR-AF FAROESE >60 Normal >=60 [facility] Comment on above: Performed By: #### B MP, TSH #### [facility] [address] [place] [address] Dr. Fazal Shearer EGFR-NON AF FAROESE >60 Normal >=60 [facility] Comment on above: Performed By: #### B MP, TSH #### [facility] [address] [place] [address] Dr. Fazal Shearer Glucose [Mass/Vol] 102 mg/dL Normal 74-106 [facility] Comment on above: Performed By: #### B MP, TSH #### [facility] [address] [place] [address] Dr. Fazal Shearer Potassium [Moles/Vol] 5.2 mmol/L Critically high 3.5-5.1 [facility] Comment on above: Performed By: #### B MP, TSH #### [facility] [address] [place] [address] Dr. Fazal Shearer Sodium [Moles/Vol] 141 mmol/L Normal 136-145 [facility] Comment on above: Performed By: #### B MP, TSH #### [facility] [address] [place] [address] Dr. Fazal Shearer Urea nitrogen [Mass/Vol] 15.0 mg/dL Normal 7.0-18.0 [facility] Comment on above: Performed By: #### B CATHY, TSH #### [facility] [address] [place] [address] Dr. Fazal Shearer Urea nitrogen/Creatinine [Mass ratio] 14.4 mg/mg Normal [facility] Comment on above: Performed By: #### B CATHY, TSH #### [facility] [address] [place] [address] Dr. Fazal Shearer TSHon 07-06-2022 TSH 1.300 uIU/mL Normal 0.358-3.740 [facility] Comment on above: Performed By: #### B CATHY, TSH #### [facility] [address] [place] [address] Dr. Fazal Shearer CBC AUTO DIFFon 03-31-2022 BASO # 0.1 103/ul Normal 0.0-0.1 [facility] Comment on above: Performed By: #### B MP, TSH #### [facility] [address] [place] [address] Dr. Fazal Shearer Basophils/100 WBC (Bld) 0.9 % Normal 0.2-2.0 [facility] Comment on above: Performed By: #### B MP, TSH #### [facility] [address] [place] [address] Dr. Fazal Shearer EO # 0.2 103/ul Normal 0.0-0.7 [facility] Comment on above: Performed By: #### B CATHY, TSH #### [facility] [address] [address] [address] Fazal Shearer Eosinophils/100 WBC (Bld) 3.2 % Normal 0.9-7.0 [facility] Comment on above: Performed By: #### B MP, TSH #### [facility] [address] [place] [address] Dr. Fazal Shearer Erythrocyte distribution width (RBC) [Ratio] 12.2 % Normal 11.0-15.0 [facility] Comment on above: Performed By: #### B MP, TSH #### [facility] [address] [place] [address] Dr. Fazal Shearer Hematocrit (Bld) [Volume fraction] 41.3 % Critically low 42.0-54.0 [facility] Comment on above: Performed By: #### B MP, TSH #### [facility] [address] [place] [address] Dr. Fazal Shearer Hemoglobin (Bld) [Mass/Vol] 14.1 g/dL Normal 14.0-18.0 [facility] Comment on above: Performed By: #### B MP, TSH #### [facility] [address] [place] [address] Dr. Fazal Shearer IG # 0.05 10e3/ul Critically high 0.00-0.03 [facility] Comment on above: Performed By: #### B MP, TSH #### [facility] [address] [place] [address] Dr. Fazal Shearer IG % 0.9 % Critically high 0.0-0.5 [facility] Comment on above: Performed By: #### B MP, TSH #### [facility] [address] [place] [address] Dr. Fazal Shearer LYMPH # 2.0 103/ul Normal 1.2-3.8 [facility] Comment on above: Performed By: #### B MP, TSH #### [facility] [address] [place] [address] Dr. Fazal Shearer Lymphocytes/100 WBC (Bld) 33.5 % Normal 20.5-60.0 [facility] Comment on above: Performed By: #### B MP, TSH #### [facility] [address] [place] [address] Dr. Fazal Shearer MANUAL DIFF REQ NO Normal [facility] Comment on above: Performed By: #### B MP, TSH #### [facility] [address] [place] [address] Dr. Fazal Shearer MCH (RBC) [Entitic mass] 29.3 pg Normal 25.9-34.0 [facility] Comment on above: Performed By: #### B MP, TSH #### [facility] [address] [place] [address] Dr. Fazal Shearer MCHC (RBC) [Mass/Vol] 34.1 g/dL Normal 29.9-35.2 [facility] Comment on above: Performed By: #### B MP, TSH #### [facility] [address] [place] [address] Dr. Fazal Shearer MCV (RBC) [Entitic vol] 85.9 fL Normal 80.0-94.0 [facility] Comment on above: Performed By: #### B MP, TSH #### [facility] [address] [place] [address] Dr. Fazal Shearer MONO # 0.5 103/ul Normal 0.3-0.8 [facility] Comment on above: Performed By: #### B MP, TSH #### [facility] [address] [place] [address] Dr. Fazal Shearer Monocytes/100 WBC (Bld) 8.4 % Normal 1.7-12.0 [facility] Comment on above: Performed By: #### B MP, TSH #### [facility] [address] [place] [address] Dr. Fazal Shearer NEUT # 3.1 103/ul Normal 1.4-6.5 [facility] Comment on above: Performed By: #### B MP, TSH #### [facility] [address] [place] [address] Dr. Fazal Shearer Neutrophils/100 WBC (Bld) 53.1 % Normal 43.0-75.0 [facility] Comment on above: Performed By: #### B MP, TSH #### [facility] [address] [address] [address] Fazal Shearer Platelet mean volume (Bld) [Entitic vol] 9.3 fL Critically low 9.5-13.5 [facility] Comment on above: Performed By: #### B MP, TSH #### [facility] [address] [address] [address] Fazal Shearer PLT 248 103/ul Normal 150-450 [facility] Comment on above: Performed By: #### B MP, TSH #### [facility] [address] [address] [address] Fazal Shearer RBC 4.81 106/ul Normal 4.70-6.10 [facility] Comment on above: Performed By: #### B MP, TSH #### [facility] [address] [address] [address] Fazal Shearer WBC 5.9 103/ul Normal 4.0-11.0 [facility] Comment on above: Performed By: #### B MP, TSH #### [facility] [address] [place] [address] Dr. Fazal Shearer ECHOCARDIO M/2D COMPLETEon 0 03-31-2022 ECHOCARDIO M/2D COMPLETE Patient: PROSPER MILIAN Exam Date: 03/31/2022 : 1975 Gender:M Ordering : DR CHANTAL MART M.D. Admission #: [id number] Family : Order #: [id number] CLICK HERE TO VIEW EXAM ECHOCARDIOGRAM REPORT [...] M.D. on 03/31/2022 at 19:40 Normal [facility] PROF CHEM 8 (BAS METB)on Anion gap [Moles/Vol] 7.8 mmol/L Normal [facility] Comment on above: Performed By: #### B CATHY, TSH #### [facility] [address] [address] [address] Fazal Shearer Calcium [Mass/Vol] 8.4 mg/dL Critically low 8.5-10.1 [facility] Comment on above: Performed By: #### B MP, TSH #### [facility] [address] [address] [address] Fazal Shearer Chloride [Moles/Vol] 104 mmol/L Normal 98-107 [facility] Comment on above: Performed By: #### B MP, TSH #### [facility] [address] [address] [address] Fazal Shearer CO2 [Moles/Vol] 30.3 mmol/L Normal 21.0-32.0 [facility] Comment on above: Performed By: #### B MP, TSH #### [facility] [address] [address] [address] Fazal Shearer Creatinine [Mass/Vol] 0.99 mg/dL Normal 0.70-1.30 [facility] Comment on above: Performed By: #### B MP, TSH #### [facility] [address] [address] [address] Fazal Shearer EGFR-AF FAROESE >60 Normal >=60 [facility] Comment on above: Performed By: #### B MP, TSH #### [facility] [address] [address] [address] Fazal Shearer EGFR-NON AF FAROESE >60 Normal >=60 [facility] Comment on above: Performed By: #### B MP, TSH #### [facility] [address] [place] [address] Dr. Fazal Shearer Glucose [Mass/Vol] 103 mg/dL Normal 74-106 [facility] Comment on above: Performed By: #### B MP, TSH #### [facility] [address] [place] [address] Dr. Fazal Shearer Potassium [Moles/Vol] 4.1 mmol/L Normal 3.5-5.1 [facility] Comment on above: Performed By: #### B MP, TSH #### [facility] [address] [place] [address] Dr. Fazal Shearer Sodium [Moles/Vol] 138 mmol/L Normal 136-145 [facility] Comment on above: Performed By: #### B MP, TSH #### [facility] [address] [place] [address] Dr. Fazal Shearer Urea nitrogen [Mass/Vol] 17.0 mg/dL Normal 7.0-18.0 [facility] Comment on above: Performed By: #### B MP, TSH #### [facility] [address] [place] [address] Dr. Fazal Shearer Urea nitrogen/Creatinine [Mass ratio] 17.2 mg/mg Normal [facility] Comment on above: Performed By: #### B MP, TSH #### [facility] [address] [place], [place] [address] Dr. Fazal Shearer TSHon 03-31-2022 TSH 0.867 uIU/mL Normal 0.358-3.740 [facility] Comment on above: Performed By: #### B MP, TSH #### [facility] [address] [place], [place] [address] LUMBAR SPINE W [...] mm posterior listhesis of L5 on S1. [employer] Work Phone: [place], [facility] Incoming Radiant Results From [employer] - 02/26/2021 10:26 AM EDT IMPRESSION: L5/S1 [...] mm posterior listhesis of L5 on S1. [employer] Work Phone: IR LUMBAR PUNCTURE FOR MYELO [...] Please see CT dictation for full details. [employer] Phone: [place], [place] Incoming Radiant Results From [employer] - 02/26/2021 11:13 AM EDT IMPRESSION: 1. [...] Please see CT dictation for full details. [employer] Phone: No Panel InformationOrdered By: Hamilton Elder on 02-26-2021 [employer] Phone: [employer] Phone: CT LUMBAR SPINE W CONTRASTon 02-25-2021 [...] Shun Shah MD 02/26/[address] [facility] ([place], [place] IR LUMBAR PUNCTURE FOR MYELO GRAM CTon [...] Shun Shah MD 02/26/[address] [facility] [place] Basic Metabolic Panelon 02-05 Anion gap [Moles/Vol] 10 mmol/L Normal 9-15 [facility] Comment on above: Performed By: #### B MP #### [facility] [place] [address] [place] [address] Calcium [Mass/Vol] 9.3 mg/dL Normal 8.5-9.9 [facility] [place] Comment on above: Performed By: #### B MP #### [facility], [place]) [address] [place] [address] Chloride [Moles/Vol] 102 mmol/L Normal 95-107 [facility] Comment on above: Performed By: #### B MP #### [facility] [place] [address] [place] [address] CO2 [Moles/Vol] 27 mmol/L Normal 20-31 [facility] [place] Comment on above: Performed By: #### B MP #### [facility], [place]) [address] [place] [address] Creatinine [Mass/Vol] 0.83 mg/dL Normal 0.70-1.20 [facility] Comment on above: Performed By: #### B MP #### [facility], [place]) [address] [place] [address] GFR >60.0 Normal >60 [facility] [place] Comment on above: Result Comment: >60 mL/min/1.73m2 EGFR, calc. for ages 18 and older using the MDRD formula (not corrected for weight), is valid for stable renal function. Performed By: #### B MP #### [facility] ([place], [place]) [address] [place] [address] GFR/1.73 sq M.predicted among blacks MDRD (S/P/Bld) [Vol rate/Area] mL/min/{1.73_m2} Normal >60 [facility] [place] Comment on above: Result Comment: >60 mL/min/1.73m2 EGFR, calc. for ages 18 and older using the MDRD formula (not corrected for weight), is valid for stable renal function. Performed By: #### B MP #### [facility], [place]) [address] [place] [address] Glucose [Mass/Vol] 96 mg/dL Normal 70-99 [facility] [place] Comment on above: Performed By: #### B MP #### [facility], [place]) [address] [place] [address] Potassium [Moles/Vol] 3.8 mmol/L Normal 3.4-4.9 [facility] Comment on above: Performed By: #### B MP #### [facility], [place]) [address] [place] [address] Sodium [Moles/Vol] 139 mmol/L Normal 135-144 [facility] [place] Comment on above: Performed By: #### B MP #### [facility], [place]) [address] [place] [address] Urea nitrogen [Mass/Vol] 13 mg/dL Normal 6-20 [facility] [place] Comment on above: Performed By: #### B MP #### [facility] ([place], [place]) [address] [place] [address] CBC With Platelet No Differe ntialon 02-19-2021 Erythrocyte distribution width (RBC) [Ratio] 12.9 % Normal 11.5-14.5 [facility] [place] Comment on above: Performed By: #### C BCND #### [facility] ([place], [place]) [address] [place] [address] Hematocrit (Bld) [Volume fraction] 45.5 % Normal 42.0-52.0 [facility] [place] Comment on above: Performed By: #### C BCND #### [facility], [place]) [address] [place] [address] Hemoglobin (Bld) [Mass/Vol] 15.3 g/dL Normal 14.0-18.0 [facility] [place] Comment on above: Performed By: #### C BCND #### [facility], [place]) [address] [place] [address] MCH (RBC) [Entitic mass] 28.7 pg Normal 27.0-31.3 [facility] [place] Comment on above: Performed By: #### C BCND #### [facility], [place]) [address] [place] [address] MCHC 33.7 % Normal 33.0-37.0 [facility] [place] Comment on above: Performed By: #### C BCND #### [facility], [place]) [address] [place] [address] MCV (RBC) [Entitic vol] 85.4 fL Normal 80.0-100.0 [facility] [place] Comment on above: Performed By: #### C BCND #### [facility], [place]) [address] [place] [address] Platelets (Bld) [#/Vol] 259 10*3/uL Normal 130-400 [facility] [place] Comment on above: Performed By: #### C BCND #### [facility], [place]) [address] [place] [address] RBC (Bld) [#/Vol] 5.33 10*6/uL Normal 4.70-6.10 [facility] [place] Comment on above: Performed By: #### C BCND #### [facility], [place]) [address] [place] [address] WBC (Bld) [#/Vol] 6.2 10*3/uL Normal 4.8-10.8 [facility] [place] Comment on above: Performed By: #### C BCND #### [facility], [place]) [address] [place] [address] Prothrombin Timeon INR Coag (PPP) [Relative time] 1.0 {INR} Normal [facility] [place] Comment on above: Performed By: #### P T #### [facility], [place]) [address] [place] [address] PT Coag (PPP) [Time] 13.2 s Normal 12.3-14.9 [facility] Comment on above: Performed By: #### P T #### [facility], [place]) [address] [place] [address] Vital Signs Date Time Vital Sign Value Performing Clinician Facility 12-21-2023 08:13-040 Body temperature 97.5 [degF] Adam Navarro MD Work Phone: [facility] 12-21-2023 08:13-040 Diastolic blood pressure 80 mm[Hg] Adam Navarro MD Work Phone: [facility] 12-21-2023 08:13-0400 Heart rate 85 /min Adam Navarro MD Work Phone: [facility] 12-21-2023 08:13-0400 Respiratory rate 16 /min Adam Navarro MD Work Phone: [facility] 12-21-2023 08:13-0400 SaO2% (BldA) [Mass fraction] 97 % Adam Navarro MD Work Phone: [facility] 12-21-2023 08:13-0400 Systolic blood pressure 119 mm[Hg] Adam Navarro MD Work Phone: [facility] 12-11-2023 08:33-0400 Body height 180.3 cm Adam Navarro MD Work Phone: [facility] 12-11-2023 08:33-0400 Body mass index (BMI) [Ratio] 38.76 kg/m2 Adam Navarro MD Work Phone: [facility] 12-11-2023 08:33-0400 Body weight 126 kg Adam Navarro MD Work Phone: [facility] 11-30-2023 13:53-0400 Body height 180.3 cm Adam Navarro MD Work Phone: [facility] 11-30-2023 13:53-0400 Body mass index (BMI) [Ratio] 37.66 kg/m2 Adam Navarro MD Work Phone: [facility] 11-30-2023 13:53-0400 Body weight 122.47 kg Adam Navarro MD Work Phone: [facility] 09-19-2023 11:45-0500 Body height 182.88 cm Chantal Mart Other [employer] Other 09-19-2023 11:45-0500 Body mass index (BMI) [Ratio] 37.29 kg/m2 Chantal Mart Other [employer] Other 09-19-2023 11:45-0500 Body weight 124.74 kg Chantal Mart Other [employer] Other 09-19-2023 11:45-0500 Diastolic blood pressure 81 mm[Hg] Chantal Mart Other [employer] Other 09-19-2023 11:45-0500 Systolic blood pressure 121 mm[Hg] Chantal Mart Other [employer] Other 07-26-2023 10:45-0500 Body height 182.88 cm Chantal Mart Other [employer] Other 07-26-2023 10:45-0500 Body mass index (BMI) [Ratio] 37.24 kg/m2 Chantal Mart Other [employer] Other 07-26-2023 10:45-0500 Body weight 124.56 kg Chantal Mart Other [employer] Other 07-26-2023 10:45-0500 Diastolic blood pressure 85 mm[Hg] Chantal Mart Other [employer] Other 07-26-2023 10:45-0500 Systolic blood pressure 122 mm[Hg] Chantal Mart Other [employer] Other 06-03-2023 15:00-0400 Body height 182.88 cm Chantal Mart Other [employer] Other 06-03-2023 15:00-0400 Body mass index (BMI) [Ratio] 37.81 kg/m2 Chantal Mart Other [employer] Other 06-03-2023 15:00-0400 Body temperature 98 [degF] Chantal Mart Other [employer] Other 06-03-2023 15:00-0400 Body weight 126.46 kg Chantal Mart Other [employer] Other 06-03-2023 15:00-0400 Diastolic blood pressure 76 mm[Hg] Chantal Mart Other [employer] Other 06-03-2023 15:00-0400 SaO2% (BldA) [Mass fraction] 98 % Chantal Mart Other [employer] Other 06-03-2023 15:00-0400 Systolic blood pressure 130 mm[Hg] Chantal Mart Other [employer] Other 02-11-2023 10:30-0400 Body height 182.88 cm Chantal Mart Other [employer] Other 02-11-2023 10:30-0400 Body mass index (BMI) [Ratio] 37.16 kg/m2 Chantal Mart Other [employer] Other 02-11-2023 10:30-0400 Body weight 124.29 kg Chantal Mart Other [employer] Other 02-11-2023 10:30-0400 Diastolic blood pressure 85 mm[Hg] Chantal Mart Other [employer] Other 02-11-2023 10:30-0400 Systolic blood pressure 124 mm[Hg] Chantal Mart Other [employer] Other 11-02-2022 16:15-0400 Body height 182.88 cm Austin Ball Other [employer] Other 11-02-2022 16:15-0400 Body mass index (BMI) [Ratio] 37.05 kg/m2 Austin Ball Other [facility] [employer] Other 11-02-2022 16:15-0400 Body weight 123.92 kg Austin Ball Other [employer] Other 11-02-2022 16:15-0400 Diastolic blood pressure 86 mm[Hg] Austin Ball Other [facility] [employer] Other 11-02-2022 16:15-0400 Respiratory rate 16 /min Austin Ball Other [facility] [employer] Other 11-02-2022 16:15-0400 Systolic blood pressure 136 mm[Hg] Austin Ball Other [facility] [employer] Other 10-27-2022 11:30-0400 Body height 182.88 cm Chantal Mart Other [facility] [employer] Other 10-27-2022 11:30-0400 Body mass index (BMI) [Ratio] 37.29 kg/m2 Chantal Mart Other [facility] [employer] Other 10-27-2022 11:30-0400 Body weight 124.74 kg Chantal Mart Other [employer] Other 10-27-2022 11:30-0400 Diastolic blood pressure 80 mm[Hg] Chantal Mart Other [employer] Other 10-27-2022 11:30-0400 SaO2% (BldA) [Mass fraction] 97 % Chantal Mart Other [employer] Other 10-27-2022 11:30-0400 Systolic blood pressure 132 mm[Hg] Chantal Mart Other [employer] Other 02-25-2021 14:30-0400 Diastolic blood pressure 90 mm[Hg] [place] [address] [employer] Phone: 02-25-2021 14:30-0400 Heart rate 79 /min [place] [address] [employer] Work Phone: 02-25-2021 14:30-0400 Respiratory rate 16 /min [place] [address] [employer] Phone: 02-25-2021 14:30-0400 SaO2% (BldA) [Mass fraction] 97 % [place] [address] [employer] Phone: 02-25-2021 14:30-0400 Systolic blood pressure 148 mm[Hg] [place] [address] [employer] Work Phone: 02-25-2021 10:43-0400 Body height 180.3 cm [place] [address] [employer] Phone: 02-25-2021 10:43-0400 Body mass index (BMI) [Ratio] 36.54 kg/m2 [place] [address] [employer] Phone: 02-25-2021 10:43-0400 Body weight 118.84 kg [place] [address] [employer] Phone: Encounters Encounter Date Encounter Type Care Provider Facility Start: 02-29-2024 End: 02[facility]29[facility] Start: 02-01-2024 End: 02-02-2024 ambulatory [facility] Start: 12-28-2023 End: 12-28-2023 Postop follow up visit related to original px Adam Navarro MD Work Phone: [facility] Comment on above: Pelvic pain Start: 12-28-2023 End: 12-28-2023 Subsequent hospital visit by physician [place] [address] X-Ray 3 [facility] Comment on above: Pelvic pain Start: 12-28-2023 End: 12-28-2023 ambulatory [facility] Start: 12-08-2023 End: 12-21-2023 Evaluation and management of inpatient Adam Navarro MD Work Phone: [facility] [place] [address] Comment on above: Pelvic pain (Primary Dx); Acute postoperative pain Start: 11-30-2023 End: 11-30-2023 Office outpatient new 60 minutes Adam Navarro MD Work Phone: [facility] Comment on above: Pelvic pain (Primary Dx) Start: 11-30-2023 End: 11-30-2023 Subsequent hospital visit by physician Larry [id number] X-Ray 2 [facility] Comment on above: Pelvic pain Start: 11-30-2023 End: 12-01-2023 ambulatory [facility] Start: 09-19-2023 End: 09-20-2023 ambulatory Portia Clark MD [facility] [employer] Other Start: 09-19-2023 Office outpatient vi sit 15 minutes Chantal Mart [facility] Start: 09-16-2023 End: 09-17-2023 Emergency department patient visit Mayela Vicente Facility:[facility] Start: 08-22-2023 End: 08-23-2023 ambulatory Portia Clark MD Facility:[facility] Start: 08-17-2023 End: 08-17-2023 ambulatory Chantal Mart Other [employer] Other Start: 08-17-2023 Telephone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
[2024-05-01 08:32] LABS: Basophils Absolute Auto 0.1 10^3/uL (0.0-0.1); Basophils Percent Auto 0.7 % (0.2-2.0); Eosinophils Absolute Auto 0.3 10^3/uL (0.0-0.7); Hematocrit 41.9 % (42.0-54.0); Hemoglobin 13.2 g/dL (14.0-18.0); Immature Granulocytes Abs Auto 0.06 10^3/uL (0.00-0.03); Immature Granulocytes Pct Auto 0.7 % (0.0-0.5); Lymphocytes Absolute Auto 2.9 10^3/uL (1.2-3.8); Lymphocytes Percent Auto 31.3 % (20.5-60.0); Mean Corpuscular HGB Conc 31.5 g/dL (29.9-35.2); Mean Corpuscular Hemoglobin 25.4 pg (25.9-34.0); Mean Corpuscular Volume 80.7 fL (80.0-94.0); Mean Platelet Volume 9.3 fL (9.5-13.5); Monocytes Absolute Auto 0.6 10^3/uL (0.3-0.8); Monocytes Percent Auto 6.7 % (1.7-12.0); Neutrophils Absolute Auto 5.3 10^3/uL (1.4-6.5); Neutrophils Percent Auto 57.6 % (43.0-75.0); Platelet Count 251 10^3/uL (150-450); Red Blood Count 5.19 10^6/uL (4.70-6.10); Red Cell Distribution Width 14.5 % (11.0-15.0); White Blood Count 9.1 10^3/uL (4.0-11.0)
[2024-05-01] MEDS: FAMOTIDINE/PF 20 MG/2 ML VIAL IV (08:37)
[2024-05-01 08:45] LABS: INR 1.02; Prothrombin Time 10.8 sec (9.0-11.6)
[2024-05-01 08:47] LABS: Troponin I High Sensitivity 6.7 pg/mL (4.0-76.1)
[2024-05-01 08:48] LABS: Alanine Aminotransferase 28 U/L (16-63); Albumin Globulin Ratio 1.1; Albumin Level 3.8 g/dL (3.4-5.0); Alkaline Phosphatase 78 U/L (46-116); Anion Gap 9.6; Aspartate Amino Transferase 17 U/L (15-37); BUN Creatinine Ratio 16.8; Bilirubin Total 0.3 mg/dL (0.2-1.0); Calcium 9.2 mg/dL (8.5-10.1); Carbon Dioxide 29.1 mmol/L (21.0-32.0); Chloride 102 mmol/L (98-107); Estimated GFR (African America >60 (>=60); Estimated GFR (Non-African Ame >60 (>=60); Globulin 3.4 g/dL; Glucose 104 mg/dL (74-106); Potassium 3.7 mmol/L (3.5-5.1); Sodium 137 mmol/L (136-145); Total Protein 7.2 g/dL (6.4-8.2)
--- NOTE | 2024-05-01 09:22 | ED_ITS ---
HPI - Chest Pain General Chief Complaint: Chest Pain Stated Complaint: CHEST TIGHTNESS/ SHORTNESS OF BREATH Time Seen by Provider: 05/01/24 08:04 Source: patient Mode of arrival: walk-in Limitations: no limitations History of Present Illness HPI narrative: The patient presented to us with a chest pressure that started at 4 AM, he mentioned that he was going to sleep when he felt pressure in the retrosternal area, not associated with any pain otherwise no fever chills he did mention that he have a chronic cough although he is not a smoker But his cough usually is associated with the morning and the cough usually is productive The patient have no fever chills nausea vomiting or any other complaint that he denies any complaint before going to sleep at 4 AM Related Data Home Medications ?Medication ?Instructions ?Recorded ?Confirmed albuterol sulfate 90 mcg/actuation 2 inh inhalation Q3H PRN shortness 03/22/23 04/26/24 aerosol inhaler of breath or wheezing fluticasone propionate 110 2 inh inhalation BID 03/22/23 04/26/24 mcg/actuation HFA aerosol inhaler lisinopril 20 mg tablet 20 mg PO DAILY 03/22/23 04/26/24 metoprolol tartrate 25 mg tablet 25 mg PO DAILY 03/22/23 04/26/24 simvastatin 20 mg tablet 20 mg PO DAILY 03/22/23 04/26/24 sumatriptan succinate 50 mg tablet See Rx Instructions PO .COMPLEX 03/22/23 04/26/24 gabapentin 300 mg capsule 300 mg PO BID 01/25/24 04/26/24 Previous Rx's ?Medication ?Instructions ?Recorded oxycodone-acetaminophen 5 mg-325 1 tab PO TID PRN pain #90 tabs 01/25/24 mg tablet (Percocet) diclofenac sodium 50 mg 50 mg PO BID PRN pain #60 tabs 02/29/24 tablet,delayed release baclofen 10 mg tablet 10 mg PO TID PRN muscle spasm #90 04/26/24 tabs oxycodone-acetaminophen 5 mg-325 1 tab PO TID PRN pain #90 tabs 04/26/24 mg tablet (Percocet) famotidine 20 mg tablet (Pepcid) 20 mg PO BID #10 tabs 05/01/24 pantoprazole 40 mg tablet,delayed 40 mg PO DAILY #30 tabs 05/01/24 release (Protonix) Allergies Allergy/AdvReac Type Severity Reaction Status Date / Time nubain Allergy Unknown Uncoded 03/22/23 15:33 Review of Systems ROS Status of ROS 10 or more systems reviewed and unremark able except as noted in history and below [facility] [place] [facility] History Subdural hematoma ?S06.5XAA - Traumatic subdural hemorrhage with loss of consciousness status unknown, initial encounter (ICD-10) Osteoarthritis ?M19.90 - Unspecified osteoarthritis, unspecified site (ICD-10) Asthma ?J45.909 - Unspecified asthma, uncomplicated (ICD-10) HTN (hypertension) ?I10 - Essential (primary) hypertension (ICD-10) Social History Little interest or pleasure in doing things: not at all Feeling down, depressed, or hopeless: not at all Exam Narrative Exam Narrative: Nurses notes and vital signs reviewed and patient is not hypoxic. General: Well-appearing and in no apparent distress. Skin: Warm, dry, no pallor noted. No rash. Head: Normocephalic, atraumatic. Neck: Supple, non-tender. Eye: Pupils are equal, round and EOMI. No scleral icterus. Ears, Nose, Mouth, and Throat: TM are clear, no nasal mucosal hypertrophy. Oral mucosa is moist, no posterior oropharynx erythema, uvula is mid-line Cardiovascular: Regular Rate and Rhythm without murmur, gallop or rub. Respiratory: No accessory muscle use or respiratory distress. Lungs are clear to auscultation, no wheezing, rales or rhonchi Chest Wall: no tenderness Back: No midline thoracic or lumbar vertebral tenderness. No CVA tenderness Musculoskeletal: normal ROM, no calf or popliteal tenderness, no lower extremity edema/swelling GI: Abdomen is soft, non-distended. Normal bowel sounds. No masses appreciated. No tenderness to palpation. No rebound, guarding, or rigidity noted. Neurological: A&O x4. No cranial nerve dysfunction observed. No truncal ataxia. Moves all extremities. Sensation intact. Psychiatric: Cooperative and interactive. Normal mood and affect. Constitutional Vital Signs, click to edit/add: Last Vital Signs Temp 97.9 F 05/01/24 08:06 Pulse 66 05/01/24 08:50 Resp 16 05/01/24 08:50 BP 138/88 05/01/24 08:45 Pulse Ox 97 05/01/24 08:50 O2 Del Method Room Air 05/01/24 08:06 Course Vital Signs Vital signs: Vital Signs Pulse Oximetry 99 05/01/24 08:03 Temperature 97.9 F 05/01/24 08:06 Pulse Rate 66 05/01/24 08:50 Respiratory Rate 16 05/01/24 08:50 Blood Pressure 138/88 05/01/24 08:45 Pulse Oximetry 97 05/01/24 08:50 Oxygen Delivery Method Room Air 05/01/24 08:06 MDM - Chest Pain MDM Narrative Medical decision making narrative: The patient EKG showing sinus rhythm with a heart rate of [address] elevation or depression The patient chest x-ray showed no acute pathology as well as the rest of his blood workup including CBC chemistry and troponin The patient troponin was repeated twice and was negative the patient also was treated in the ER with Pepcid He was discharged home with GERD treatment in addition to Protonix The patient is to follow up with primary care physician in next 2-3 days or to r eturn to the emergency department should any of the signs or symptoms worsen or new symptoms develop. The patient agrees with the following Diagnosis and Treatment plan and the patient will be discharged home. Lab Data Labs: Lab Results 05/01/24 05/01/24 Range/Units 08:19 09:27 WBC 9.1 (4.0-11.0) 10^3/uL RBC 5.19 (4.70-6.10) 10^6/uL Hgb 13.2 L (14.0-18.0) g/dL Hct 41.9 L (42.0-54.0) % MCV 80.7 (80.0-94.0) fL MCH 25.4 L (25.9-34.0) pg MCHC 31.5 (29.9-35.2) g/dL RDW 14.5 (11.0-15.0) % Plt Count 251 (150-450) 10^3/uL MPV 9.3 L (9.5-13.5) fL Neut % (Auto) 57.6 (43.0-75.0) % Lymph % (Auto) 31.3 (20.5-60.0) % [place] % (Auto) 6.7 (1.7-12.0) % Eos % (Auto) 3.0 (0.9-7.0) % Baso % (Auto) 0.7 (0.2-2.0) % Neut # (Auto) 5.3 (1.4-6.5) 10^3/uL Lymph # (Auto) 2.9 (1.2-3.8) 10^3/uL [place] # (Auto) 0.6 (0.3-0.8) 10^3/uL Eos # (Auto) 0.3 (0.0-0.7) 10^3/uL Baso # (Auto) 0.1 (0.0-0.1) 10^3/uL Abs Immat Gran (auto) 0.06 H (0.00-0.03) 10^3/uL Imm/Tot Granulo (auto) 0.7 H (0.0-0.5) % PT 10.8 (9.0-11.6) sec INR 1.02 Sodium 137 (136-145) mmol/L Potassium 3.7 (3.5-5.1) mmol/L Chloride 102 (98-107) mmol/L Carbon Dioxide 29.1 (21.0-32.0) mmol/L Anion Gap 9.6 BUN 17.0 (7.0-18.0) mg/dL Creatinine 1.01 (0.70-1.30) mg/dL Est GFR ( Amer) >60 (>=60) Est GFR (Non-Af Amer) >60 (>=60) BUN/Creatinine Ratio 16.8 Glucose 104 (74-106) mg/dL Calcium 9.2 (8.5-10.1) mg/dL Total Bilirubin 0.3 (0.2-1.0) mg/dL AST 17 (15-37) U/L ALT 28 (16-63) U/L Alkaline Phosphatase 78 (46-116) U/L Troponin I High Sens 6.7 4.9 (4.0-76.1) pg/mL Total Protein 7.2 (6.4-8.2) g/dL Albumin 3.8 (3.4-5.0) g/dL Globulin 3.4 g/dL Albumin/Globulin Ratio 1.1 Discharge Plan Discharge Chief Complaint: Chest Pain Clinical Impression: Chest pressure, Chest pain due to GERD Patient Disposition: Home, Self-Care Time of Disposition Decision: 09:24 Condition: Good Prescriptions / Home Meds: New famotidine [Pepcid] 20 mg tablet 20 mg PO BID Qty: 10 0RF pantoprazole [Protonix] 40 mg tablet,delayed release (DR/EC) 40 mg PO DAILY Qty: 30 0RF No Action albuterol sulfate 90 mcg/actuation HFA aerosol inhaler 2 inh inhalation Q3H PRN (Reason: shortness of breath or wheezing) fluticasone propionate 110 mcg/actuation HFA aerosol inhaler 2 inh inhalation BID sumatriptan succinate 50 mg tablet See Rx Instructions .ROUTE .COMPLEX Rx Instructions: take 1 tab at onset of headache; if no relief may repeat 1 tab after at least 2 hrs; max = 4 tabs/24 hr lisinopril 20 mg tablet 20 mg PO DAILY metoprolol tartrate 25 mg tablet 25 mg PO DAILY simvastatin 20 mg tablet 20 mg PO DAILY oxycodone-acetaminophen [Percocet] 5-325 mg tablet 1 tab PO TID PRN (Reason: pain) Qty: 90 0RF baclofen 10 mg tablet 10 mg PO TID PRN (Reason: muscle spasm) Qty: 90 2RF gabapentin 300 mg capsule 300 mg PO BID oxycodone-acetaminophen [Percocet] 5-325 mg tablet 1 tab PO TID PRN (Reason: pain) Qty: 90 0RF Rx Instructions: must last 30 days diclofenac sodium 50 mg tablet,delayed release (DR/EC) 50 mg PO BID PRN (Reason: pain) Qty: 60 2RF Print Language: [place] Instructions: Chest Pain (DC), GERD (Gastroesophageal Reflux Disease) (ED) Referrals: Jaymie Haas MD [Primary Care Provider] - 1 week
[2024-05-01 10:34] LABS: Troponin I High Sensitivity 4.9 pg/mL (4.0-76.1)
== END 2024-05-01 10:57 | disposition home or self-care (01) ==
PROVIDERS: Emergency Provider Emergency Medicine; PCP Family Medicine
DX: K21.9 Gastro-esophageal reflux disease without esophagitis (principal); R07.89 Other chest pain
CPT/HCPCS: 36415; 71045; 80053; 84484; 85025; 85610; 93005; 96374; 99285

== ENCOUNTER 2024-05-14 07:51 | Day surgery (SDC) | payer BC, SELFPAY ==
--- OUTSIDE RECORDS SUMMARY | 2024-05-14 07:55 | XMS_ITS | CCD ---
Author Organization [facility] Care Team Providers Care Certified Social Workers In Health Care Name Role Phone Chantal Mart MD Primary Care Provider HAMILTON ELDER Referring Unavailable CHANTAL MART Primary Care Unavailable CHANTAL MART Primary Care Unavailable HAMILTON ELDER Referring Unavailable Chantal Mart Unavailable Austin Barahona Unavailable Kurtis Patel Admitting UnavailKutris Maldonado Attending UnavailChantal Vincent Primary Care Unavailable [...] CHANTAL Gonzalez Primary Care Unavailable MA ., HNANA Attending Unavailable MA ., HANNA Admitting Unavailable [...] Unavailable Chantal Mart MD Primary Care Provider [phone] [place], ADAM K Attending Unavailable CHANTAL MART [...] Nalbuphine (2 sources) [facility]id Agonists (2 sources) traMADol Drug Allergy 1 Nausea And Vomiting ZAINA PHARMA (15 sources) Nalbuphine; Translations: [Nubain] Drug Allergy [address] [facility] Repository (10 sources) traMADol; Translations: [TRAMADOL] Drug Allergy 6 Nausea And Vomiting Seekly Other (6 sources) Nubain *ANALGESICS - OPIOID* Propensity to adverse reactions Unknown [facility] Other (3 sources) Allergies Reconciled Propensity to adverse reactions Unknown [facility] Other (3 sources) patient allergy list reviewed by nurse or physicia Propensity to adverse reactions 9 Comment:Done [facility]ek[facility] Other (7 sources) Nalbuphine; Translations: [NALBUPHINE] Drug Allergy 7 [facility] (1 source) No Known Medication Allergies; Translations: [No Known Medication Allergies] Propensity to adverse reactions (disorder) [facility] Repository Medications Current Medications Medication Drug [...] as needed Orally every 6 hrs Active [id number] 200 actuat albuterol 0.09 mg/actuat metered dose [...] out after 15 seconds. polyethylene glycol 3350 73307 mg powder for oral solution (1 source) [...] line, Starting on Tue12/11/23 at 2110 sennosides, longterm 8.6 mg oral tablet (1 source) Start: [...] Signs/Symptoms:pelvi s fracture. COMPARISON: 02/01/2020 ACCESSION NUMBER(S): [id number] ORDERING CLINICIAN: ADAM NAVARRO FINDINGS: Pelvis, five views Postsurgical changes in the sacrum and the pubic symphysis with screws and plate and screw fixation respectively. The hardware is intact. There is no malalignment. No significant degenerative changes IMPRESSION: Postsurgical change in the pelvis with intact hardware. No malalignment seen MACRO: None Signed by: Cesar Solomon 03/01/2024 6:55 PM Dictation workstation: [id number] [facility] Comment on above: Order Comment: 5 vie w of the pelvis XR PELVIS 3+ VIEWSon 024 XR PELVIS 3+ VIEWS Interpreted By: Sushma Black, STUDY: Pelvis, 5 views. INDICATION: Signs/Symptoms:pelvi s fracture. COMPARISON: 12/28/2023. ACCESSION NUMBER(S): [id number] ORDERING CLINICIAN: ADAM NAVARRO FINDINGS: No acute [...] Sushma Black 02/02/2024 7:24 PM Dictation workstation: [id number] [facility] Comment on above: Order Comment: 5 vie w of the pelvis XR PELVIS 3+ VIEWSon 024 XR PELVIS 3+ VIEWS Interpreted By: Caryn Norman, STUDY: XR PELVIS 3+ VIEWS; ; 12/28/2023 12:54 pm INDICATION: Signs/Symptoms:pain. COMPARISON: Pelvis radiographs dated 12/08/2023. ACCESSION NUMBER(S): [id number] ORDERING CLINICIAN: ADAM NAVARRO FINDINGS: Extensive postsurgical [...] Caryn Norman 12/30/2023 12:52 PM Dictation workstation: [id number] [facility] Comment on above: Order Comment: 5v pe lvis (AP/inlet/outlet/Judet's) Basic metabolic 2000 panelon 12-14-2023 Anion gap [Moles/Vol] 12 mmol/L 10 - 2 0 mmol/L [facility] Calcium [Mass/Vol] 8.3 mg/dL Low 8.6 - 10. 6 mg/dL [facility] Chloride [Moles/Vol] 103 mmol/L 98 - 10 7 mmol/L [facility] CO2 [Moles/Vol] 27 mmol/L 21 - 32 mmol/L [facility] Creatinine [Mass/Vol] 0.82 mg/dL 0.50 - 1.30 mg/dL [facility] eGFR - PINF [facility] Comment on above: Calculations of cris mated GFR are performed using the 2020 CKD-EPI Study Refit equation without the race variable for the IDMS-Traceable creatinine methods. https://jasn.asnjournals.org/content//ASN.26295 65990 Glucose [Mass/Vol] 103 mg/dL High 74 - 99 mg/dL [facility] Interpretation and review of laboratory results Abnormal [facility] Potassium [Moles/Vol] 3.6 mmol/L 3.5 - 5.3 mmol/L [facility] Sodium [Moles/Vol] 138 mmol/L 136 - 145 mmol/L [facility] Urea nitrogen [Mass/Vol] 14 mg/dL 6 - 23 mg/dL [facility] Anion gap [Moles/Vol] 12 mmol/L Normal 10-20 [facility] Comment on above: Performed By: #### 2 4321-2 ####ANASTACIO Hodge ([id number])[facility] ([facility])[address] [place] [address] Calcium [Mass/Vol] 8.3 mg/dL Low 8.6-10.6 [facility] Comment on above: Performed By: #### 2 4321-2 ####ANASTACIO WOOD L ([id number])[facility] ([facility])[address] [place] [address] Chloride [Moles/Vol] 103 mmol/L Normal 98-107 [facility] Comment on above: Performed By: #### 2 4321-2 ####ANASTACIO Hodge ([id number])[facility] ([facility])[address] [place] [address] CO2 [Moles/Vol] 27 mmol/L Normal 21-32 [facility] Comment on above: Performed By: #### 2 4321-2 ####ANASTACIO Hodge ([id number])[facility] ([facility])[address] [place] [address] Creatinine [Mass/Vol] 0.82 mg/dL Normal 0.50-1.30 [facility] Comment on above: Performed By: #### 2 4321-2 ####ANASTACIO Hodge ([id number])[facility] ([facility])[address] [place] [address] GFR/1.73 sq M.predicted MDRD (S/P/Bld) [Vol rate/Area] mL/min/{1.73_m2} Normal >60 [facility] Comment on above: Result Comment: Calc ulations of estimated GFR are performed using the 2020 CKD-EPI Study Refit equation without the race variable for the IDMS-Traceable creatinine methods. https://jasn.asnjournals.org/content///ASN.11234 69269 Performed By: #### 2 4321-2 ####ANASTACIO Hodge ([id number])[facility] ([facility])[address] [place] [address] Glucose [Mass/Vol] 103 mg/dL High 74-99 [facility] Comment on above: Performed By: #### 2 4321-2 ####ANASTACIO Hodge ([id number])[facility] ([facility])[address] [place] [address] Potassium [Moles/Vol] 3.6 mmol/L Normal 3.5-5.3 [facility] Comment on above: Performed By: #### 2 4321-2 ####ANASTACIO WOOD L ([id number])[facility] ([facility])[address] [place] [address] Sodium [Moles/Vol] 138 mmol/L Normal 136-145 [facility] Comment on above: Performed By: #### 2 4321-2 ####ANASTACIO WOOD L ([id number])[facility] ([facility])[address] [place] [address] Urea nitrogen [Mass/Vol] 14 mg/dL Normal 6-23 [facility] Comment on above: Performed By: #### 2 4321-2 ####ANASTACIO WOOD L ([id number])[facility] ([facility])[address] [place] [address] CBC W Auto Differential pane l (Bld)on 12-14-2023 Basophils (Bld) [#/Vol] 0.05 10*3/uL [facility] Basophils/100 WBC (Bld) 0.6 % 0.0 - 2.0 % [facility] Eosinophils (Bld) [#/Vol] 0.30 10*3/uL [facility] Eosinophils/100 WBC (Bld) 3.3 % 0.0 - 6.0 % [facility] Erythrocyte distribution width (RBC) [Ratio] 13.1 % 11.5 - 14.5 % [facility] Hematocrit (Bld) [Volume fraction] 32.7 % Low 41.0 - 52.0 % [facility] Hemoglobin (Bld) [Mass/Vol] 10.8 g/dL Low 13.5 - 17.5 g/dL [facility] Immature granulocytes (Bld) [#/Vol] 0.13 10*3/uL [facility] Immature granulocytes/100 WBC (Bld) 1.4 % High 0.0 - 0.9 % [facility] Comment on above: Immature Granulocyte Count (IG) includes promyelocytes, myelocytes and metamyelocytes but does not include bands. Percent differential counts (%) should be interpreted in the context of the absolute cell counts (cells/UL). Interpretation and review of laboratory results Abnormal [facility] Lymphocytes (Bld) [#/Vol] 1.61 10*3/uL [facility] Lymphocytes/100 WBC (Bld) 17.8 % 13.0 - 44.0 % [facility] MCH (RBC) [Entitic mass] 28.1 pg 26.0 - 34.0 pg [facility] MCHC (RBC) [Mass/Vol] 33.0 g/dL 32.0 - 36.0 g/dL [facility] MCV (RBC) [Entitic vol] 85 fL 80 - 100 fL [facility] Monocytes (Bld) [#/Vol] 0.71 10*3/uL [facility] Monocytes/100 WBC (Bld) 7.8 % 2.0 - 10.0 % [facility] Neutrophils (Bld) [#/Vol] 6.25 10*3/uL [facility] Comment on above: Percent differential counts (%) should be interpreted in the context of the absolute cell counts (cells/uL). Neutrophils/100 WBC (Bld) 69.1 % 40.0 - 80.0 % [facility] Nucleated RBC/100 WBC (Bld) [Ratio] 0.0 % [facility] Platelets (Bld) [#/Vol] 280 10*3/uL [facility] RBC (Bld) [#/Vol] 3.85 10*6/uL [facility] WBC (Bld) [#/Vol] 9.1 10*3/uL [facility] Basophils (Bld) [#/Vol] 0.05 x10*3/uL Normal 0.00-0.10 [facility] Comment on above: Performed By: #### 5 7021-8 ####ANASTACIO Hodge ([id number])[facility] ([facility])[address] [place] [address] Basophils/100 WBC (Bld) 0.6 % Normal 0.0-2.0 [facility] Comment on above: Performed By: #### 5 7021-8 ####ANASTACIO Hodge ([id number])[facility] ([facility])[id number] [place] [address] Eosinophils (Bld) [#/Vol] 0.30 x10*3/uL Normal 0.00-0.70 [facility] Comment on above: Performed By: #### 5 7021-8 ####ANASTACIO Hodge ([id number])[facility] ([facility])[id number] [place] [address] Eosinophils/100 WBC (Bld) 3.3 % Normal 0.0-6.0 [facility] Comment on above: Performed By: #### 5 7021-8 ####ANASTACIO Hodge ([id number])[facility] ([facility])[address] [place] [address] Erythrocyte distribution width (RBC) [Ratio] 13.1 % Normal 11.5-14.5 [facility] Comment on above: Performed By: #### 5 7021-8 ####ANASTACIO Hodge ([id number])[facility] ([facility])[address] [place] [address] Hematocrit (Bld) [Volume fraction] 32.7 % Low 41.0-52.0 [facility] Comment on above: Performed By: #### 5 7021-8 ####ANASTACIO Hodge ([id number])[facility] ([facility])[address] [place] [address] Hemoglobin (Bld) [Mass/Vol] 10.8 g/dL Low 13.5-17.5 [facility] Comment on above: Performed By: #### 5 7021-8 ####ANASTACIO WOOD L ([id number])[facility] ([facility])[id number] [place] [address] Immature granulocytes (Bld) [#/Vol] 0.13 x10*3/uL Normal 0.00-0.70 [facility] Comment on above: Performed By: #### 5 7021-8 ####ANASTACIO Hodge ([id number])[facility] ([facility])[id number] [place] [address] Immature granulocytes/100 WBC (Bld) 1.4 % High 0.0-0.9 [facility] Comment on above: Result Comment: Brittany ture Granulocyte Count (IG) includes promyelocytes, myelocytes and metamyelocytes but does not include bands. Percent differential counts (%) should be interpreted in the context of the absolute cell counts (cells/UL). Performed By: #### 5 7021-8 ####ANASTACIO Hodge ([id number])[facility] ([facility])[address] [place] [address] Lymphocytes (Bld) [#/Vol] 1.61 x10*3/uL Normal 1.20-4.80 [facility] Comment on above: Performed By: #### 5 7021-8 ####ANASTACIO Hodge ([id number])[facility] ([facility])[address] [place] [address] Lymphocytes/100 WBC (Bld) 17.8 % Normal 13.0-44.0 [facility] Comment on above: Performed By: #### 5 7021-8 ####ANASTACIO Hodge ([id number])[facility] ([facility])[address] [place] [address] MCH (RBC) [Entitic mass] 28.1 pg Normal 26.0-34.0 [facility] Comment on above: Performed By: #### 5 7021-8 ####ANASTACIO Hodge ([id number])[facility] ([facility])[address] [place] [address] MCHC (RBC) [Mass/Vol] 33.0 g/dL Normal 32.0-36.0 [facility] Comment on above: Performed By: #### 5 7021-8 ####ANASTACIO Hodge ([id number])[facility] ([facility])[address] [place] [address] MCV (RBC) [Entitic vol] 85 fL Normal 80-100 [facility] Comment on above: Performed By: #### 5 7021-8 ####ANASTACIO Hodge ([id number])[facility] ([facility])[address] [place] [address] Monocytes (Bld) [#/Vol] 0.71 x10*3/uL Normal 0.10-1.00 [facility] Comment on above: Performed By: #### 5 7021-8 ####ANASTACIO Hodge ([id number])[facility] ([facility])[address] [place] [address] Monocytes/100 WBC (Bld) 7.8 % Normal 2.0-10.0 [facility] Comment on above: Performed By: #### 5 7021-8 ####ANASTACIO Hodge ([id number])[facility] ([facility])[address] [place] [address] Neutrophils (Bld) [#/Vol] 6.25 x10*3/uL Normal 1.20-7.70 [facility] Comment on above: Result Comment: Perc ent differential counts (%) should be interpreted in the context of the absolute cell counts (cells/uL). Performed By: #### 5 7021-8 ####ANASTACIO Hodge ([id number])[facility] ([facility])[address] [place] [address] Neutrophils/100 WBC (Bld) 69.1 % Normal 40.0-80.0 [facility] Comment on above: Performed By: #### 5 7021-8 ####ANASTACIO Hodge ([id number])[facility] ([facility])[address] [place] [address] Nucleated RBC/100 WBC (Bld) [Ratio] 0.0 /100 WBCs Normal 0.0-0.0 [facility] Comment on above: Performed By: #### 5 7021-8 ####ANASTACIO Hodge ([id number])[facility] ([facility])[address] [place] [address] Platelets (Bld) [#/Vol] 280 x10*3/uL Normal 150-450 [facility] Comment on above: Performed By: #### 5 7021-8 ####ANASTACIO Hodge ([id number])[facility] ([facility])[address] [place] [address] RBC (Bld) [#/Vol] 3.85 x10*6/uL Low 4.50-5.90 [facility] Comment on above: Performed By: #### 5 7021-8 ####ANASTACIO Hodge ([id number])[facility] ([facility])[address] [place] [address] WBC (Bld) [#/Vol] 9.1 x10*3/uL Normal 4.4-11.3 [facility] Comment on above: Performed By: #### 5 7021-8 ####ANASTACIO Hodge ([id number])[facility] ([facility])[address] [place] [address] Electrocardiogram, 12-lead P RN ACS symptomsOrdered By: Dustin Lyman on 12-14-2023 Atrial Rate 104 BPM [facility] Work Phone: [phone] P [place] 43 degrees [facility] Work Phone: [phone] P Offset 196 ms [facility] Work Phone: [phone] P Onset 139 ms [facility] Work Phone: [phone] AK Interval 154 ms [facility] Work Phone: [phone] Q Onset 216 ms [facility] Work Phone: [phone] QRS Count 17 beats [facility] Work Phone: [phone] QRS Duration 94 ms [facility] Work Phone: [phone] QT Interval 346 ms [facility] Work Phone: [phone] QTC Calculation(Bazett) 454 ms [facility] Work Phone: [phone] QTC Fredericia 415 ms [facility] Work Phone: [phone] R [place] 9 degrees [facility] Work Phone: [phone] T [place] 27 degrees [facility] Work Phone: T Offset 389 ms [facility] Work Phone: Ventricular Rate 104 BPM [facility] Work Phone: [facility] Work Phone: Electrocardiogram, 12-lead P RN ACS symptomson 12-14-2023 Sinus tachycardia Minimal voltage criteria for LVH, may be normal variant Borderline ECG No previous ECGs available Confirmed by Dustin Lyman ([id number]) on 12/14/2023 2:58:33 PM MUSE Dustin Lyman MD - 12/14/2023 Sinus tachycardia Minimal voltage criteria for LVH, may be normal variant Borderline ECG No previous ECGs available Confirmed by Dustin Lyman ([id number]) on 12/14/2023 2:58:33 PM [facility] Work Phone: Magnesiumon 12-14-2023 Magnesium [Mass/Vol] 2.11 mg/dL 1.60 - 2.40 mg/dL [facility] Magnesium [Mass/Vol] 2.11 mg/dL Normal 1.60-2.40 [facility] Comment on above: Performed By: #### 1 9123-9 ####ANASTACIO Hodge ([id number])[facility] ([facility])[id number] [place] [address] Magnesium [Mass/Vol]on 12-13 Interpretation and review of laboratory results Normal [facility] No Panel Informationon 12-13 [facility] Basic metabolic 2000 panelon 12-13-2023 Anion gap [Moles/Vol] 13 mmol/L 10 - 2 0 mmol/L [facility] Calcium [Mass/Vol] 8.5 mg/dL Low 8.6 - 10. 6 mg/dL [facility] Chloride [Moles/Vol] 100 mmol/L 98 - 10 7 mmol/L [facility] CO2 [Moles/Vol] 28 mmol/L 21 - 32 mmol/L [facility] Creatinine [Mass/Vol] 0.92 mg/dL 0.50 - 1.30 mg/dL [facility] eGFR - PINF [facility] Comment on above: Calculations of cris mated GFR are performed using the 2020 CKD-EPI Study Refit equation without the race variable for the IDMS-Traceable creatinine methods. https://jasn.asnjournals.org/content/early//ASN.87832 89079 Glucose [Mass/Vol] 101 mg/dL High 74 - 99 mg/dL [facility] Interpretation and review of laboratory results Abnormal [facility] Potassium [Moles/Vol] 3.9 mmol/L 3.5 - 5.3 mmol/L [facility] Sodium [Moles/Vol] 137 mmol/L 136 - 145 mmol/L [facility] Urea nitrogen [Mass/Vol] 16 mg/dL 6 - 23 mg/dL [facility] Anion gap [Moles/Vol] 13 mmol/L Normal 10-20 [facility] Comment on above: Performed By: #### 2 4321-2 ####ANASTACIO WOOD L ([id number])[facility] ([facility])[address] [place] [address] Calcium [Mass/Vol] 8.5 mg/dL Low 8.6-10.6 [facility] Comment on above: Performed By: #### 2 4321-2 ####ANASTACIO KENNYMOTZER L ([id number])[facility] ([facility])[address] [place] [address] Chloride [Moles/Vol] 100 mmol/L Normal 98-107 [facility] Comment on above: Performed By: #### 2 4321-2 ####ANASTACIO KENNYMOTZER L ([id number])[facility] ([facility])[address] [place] [address] CO2 [Moles/Vol] 28 mmol/L Normal 21-32 [facility] Comment on above: Performed By: #### 2 4321-2 ####ANASTACIO WOOD L ([id number])[facility] ([facility])[address] [place] [address] Creatinine [Mass/Vol] 0.92 mg/dL Normal 0.50-1.30 [facility] Comment on above: Performed By: #### 2 4321-2 ####ANASTACIO Hodge ([id number])[facility] ([facility])[address] [place] [address] GFR/1.73 sq M.predicted MDRD (S/P/Bld) [Vol rate/Area] mL/min/{1.73_m2} Normal >60 [facility] Comment on above: Result Comment: Calc ulations of estimated GFR are performed using the 2020 CKD-EPI Study Refit equation without the race variable for the IDMS-Traceable creatinine methods. https://jasn.asnjournals.org/content//ASN.57396 39425 Performed By: #### 2 4321-2 ####ANASTACIO Hodge ([id number])[facility] ([facility])[address] [place] [address] Glucose [Mass/Vol] 101 mg/dL High 74-99 [facility] Comment on above: Performed By: #### 2 4321-2 ####ANASTACIO Hodge ([id number])[facility] ([facility])[address] [place] [address] Potassium [Moles/Vol] 3.9 mmol/L Normal 3.5-5.3 [facility] Comment on above: Performed By: #### 2 4321-2 ####ANASTACIO Hodge ([id number])[facility] ([facility])[address] [place] [address] Sodium [Moles/Vol] 137 mmol/L Normal 136-145 [facility] Comment on above: Performed By: #### 2 4321-2 ####ANASTACIO Hodge ([id number])[facility] ([facility])[address] [place] [address] Urea nitrogen [Mass/Vol] 16 mg/dL Normal 6-23 [facility] Comment on above: Performed By: #### 2 4321-2 ####ANASTACIO Hodge ([id number])[facility] ([facility])[address] [place] [address] CBC W Auto Differential pane l (Bld)on 12-13-2023 Basophils (Bld) [#/Vol] 0.06 10*3/uL [facility] Basophils/100 WBC (Bld) 0.5 % 0.0 - 2.0 % [facility] Eosinophils (Bld) [#/Vol] 0.40 10*3/uL [facility] Eosinophils/100 WBC (Bld) 3.4 % 0.0 - 6.0 % [facility] Erythrocyte distribution width (RBC) [Ratio] 13.1 % 11.5 - 14.5 % [facility] Hematocrit (Bld) [Volume fraction] 36.4 % Low 41.0 - 52.0 % [facility] Hemoglobin (Bld) [Mass/Vol] 12.0 g/dL Low 13.5 - 17.5 g/dL [facility] Immature granulocytes (Bld) [#/Vol] 0.17 10*3/uL [facility] Immature granulocytes/100 WBC (Bld) 1.4 % High 0.0 - 0.9 % [facility] Comment on above: Immature Granulocyte Count (IG) includes promyelocytes, myelocytes and metamyelocytes but does not include bands. Percent differential counts (%) should be interpreted in the context of the absolute cell counts (cells/UL). Interpretation and review of laboratory results Abnormal [facility] Lymphocytes (Bld) [#/Vol] 2.07 10*3/uL [facility] Lymphocytes/100 WBC (Bld) 17.5 % 13.0 - 44.0 % [facility] MCH (RBC) [Entitic mass] 28.1 pg 26.0 - 34.0 pg [facility] MCHC (RBC) [Mass/Vol] 33.0 g/dL 32.0 - 36.0 g/dL [facility] MCV (RBC) [Entitic vol] 85 fL 80 - 100 fL [facility] Monocytes (Bld) [#/Vol] 0.87 10*3/uL [facility] Monocytes/100 WBC (Bld) 7.3 % 2.0 - 10.0 % [facility] Neutrophils (Bld) [#/Vol] 8.28 10*3/uL High [facility] Comment on above: Percent differential counts (%) should be interpreted in the context of the absolute cell counts (cells/uL). Neutrophils/100 WBC (Bld) 69.9 % 40.0 - 80.0 % [facility] [facility] Nucleated RBC/100 WBC (Bld) [Ratio] 0.0 % [facility] Platelets (Bld) [#/Vol] 307 10*3/uL [facility] RBC (Bld) [#/Vol] 4.27 10*6/uL Low [facility] WBC (Bld) [#/Vol] 11.9 10*3/uL High [facility] Basophils (Bld) [#/Vol] 0.06 x10*3/uL Normal 0.00-0.10 [facility] Comment on above: Performed By: #### 5 7021-8 ####ANASTACIO Hodge ([id number])[facility] ([facility])[address] [place] [address] Basophils/100 WBC (Bld) 0.5 % Normal 0.0-2.0 [facility] Comment on above: Performed By: #### 5 7021-8 ####ANASTACIO KENNYMOTZER L ([id number])[facility] ([facility])[address] [place] [address] Eosinophils (Bld) [#/Vol] 0.40 x10*3/uL Normal 0.00-0.70 [facility] Comment on above: Performed By: #### 5 7021-8 ####ANASTACIO KENNYMODEBI L ([id number])[facility] ([facility])[address] [place] [address] Eosinophils/100 WBC (Bld) 3.4 % Normal 0.0-6.0 [facility] Comment on above: Performed By: #### 5 7021-8 ####ANASTACIO KENNYMODEBI L ([id number])[facility] ([facility])[address] [place] [address] Erythrocyte distribution width (RBC) [Ratio] 13.1 % Normal 11.5-14.5 [facility] Comment on above: Performed By: #### 5 7021-8 ####ANASTACIO Hodge ([id number])[facility] ([facility])[address] [place] [address] Hematocrit (Bld) [Volume fraction] 36.4 % Low 41.0-52.0 [facility] Comment on above: Performed By: #### 5 7021-8 ####ANASTACIO Hodge ([id number])[facility] ([facility])[id number] [place] [address] Hemoglobin (Bld) [Mass/Vol] 12.0 g/dL Low 13.5-17.5 [facility] Comment on above: Performed By: #### 5 7021-8 ####ANASTACIO Hodge ([id number])[facility] ([facility])[id number] [place] [address] Immature granulocytes (Bld) [#/Vol] 0.17 x10*3/uL Normal 0.00-0.70 [facility] Comment on above: Performed By: #### 5 7021-8 ####ANASTACIO Hodge ([id number])[facility] ([facility])[id number] [place] [address] Immature granulocytes/100 WBC (Bld) 1.4 % High 0.0-0.9 [facility] Comment on above: Result Comment: Brittany ture Granulocyte Count (IG) includes promyelocytes, myelocytes and metamyelocytes but does not include bands. Percent differential counts (%) should be interpreted in the context of the absolute cell counts (cells/UL). Performed By: #### 5 7021-8 ####ANASTACIO Hodge ([id number])[facility] ([facility])[address] [place] [address] Lymphocytes (Bld) [#/Vol] 2.07 x10*3/uL Normal 1.20-4.80 [facility] Comment on above: Performed By: #### 5 7021-8 ####ANASTACIO Hodge ([id number])[facility] ([facility])[address] [place] [address] Lymphocytes/100 WBC (Bld) 17.5 % Normal 13.0-44.0 [facility] Comment on above: Performed By: #### 5 7021-8 ####ANASTACIO Hodge ([id number])[facility] ([facility])[address] [place] [address] MCH (RBC) [Entitic mass] 28.1 pg Normal 26.0-34.0 [facility] Comment on above: Performed By: #### 5 7021-8 ####ANASTACIO Hodge ([id number])[facility] ([facility])[address]67 [place] [address] MCHC (RBC) [Mass/Vol] 33.0 g/dL Normal 32.0-36.0 [facility] Comment on above: Performed By: #### 5 7021-8 ####ANASTACIO Hodge ([id number])[facility] ([facility])[address] [place] [address] MCV (RBC) [Entitic vol] 85 fL Normal 80-100 [facility] Comment on above: Performed By: #### 5 7021-8 ####ANASTACIO Hodge ([id number])[facility] ([facility])[address]247 [place] [address] Monocytes (Bld) [#/Vol] 0.87 x10*3/uL Normal 0.10-1.00 [facility] Comment on above: Performed By: #### 5 7021-8 ####ANASTACIO Hodge ([id number])[facility] ([facility])[address]72 [place] [address] Monocytes/100 WBC (Bld) 7.3 % Normal 2.0-10.0 [facility] Comment on above: Performed By: #### 5 7021-8 ####ANASTACIO Hodge ([id number])[facility] ([facility])[address]90 [place] [address] Neutrophils (Bld) [#/Vol] 8.28 x10*3/uL High 1.20-7.70 [facility] Comment on above: Result Comment: Perc ent differential counts (%) should be interpreted in the context of the absolute cell counts (cells/uL). Performed By: #### 5 7021-8 ####ANASTACIO Hodge ([id number])[facility] ([facility])[address]53 [place] [address] Neutrophils/100 WBC (Bld) 69.9 % Normal 40.0-80.0 [facility] Comment on above: Performed By: #### 5 7021-8 ####ANASTACIO Hodge ([id number])[facility] ([facility])[address]90 [place] [address] Nucleated RBC/100 WBC (Bld) [Ratio] 0.0 /100 WBCs Normal 0.0-0.0 [facility] Comment on above: Performed By: #### 5 7021-8 ####ANASTACIO Hodge ([id number])[facility] ([facility])[address]255 [place] [address] Platelets (Bld) [#/Vol] 307 x10*3/uL Normal 150-450 [facility] Comment on above: Performed By: #### 5 7021-8 ####ANASTACIO Hodge ([id number])[facility] ([facility])[address]37 [place] [address] RBC (Bld) [#/Vol] 4.27 x10*6/uL Low 4.50-5.90 [facility] Comment on above: Performed By: #### 5 7021-8 ####ANASTACIO Hodge ([id number])[facility] ([facility])[address]186 [place] [address] WBC (Bld) [#/Vol] 11.9 x10*3/uL High 4.4-11.3 [facility] Comment on above: Performed By: #### 5 7021-8 ####ANASTACIO WOOD L ([id number])[facility] ([facility])[address]63 [place] [address] Magnesiumon 12-13-2023 Magnesium [Mass/Vol] 2.12 mg/dL 1.60 - 2.40 mg/dL [facility] Magnesium [Mass/Vol] 2.12 mg/dL Normal 1.60-2.40 [facility] Comment on above: Performed By: #### 1 9123-9 ####ANASTACIO WOOD L ([id number])[facility] ([facility])[address]115 [place] [address] Magnesium [Mass/Vol]on 12-12 Interpretation and review of laboratory results Normal [facility] No Panel Informationon 12-12 [facility] Basic metabolic 2000 panelon 12-12-2023 Anion gap [Moles/Vol] 14 mmol/L 10 - 2 0 mmol/L [facility] Calcium [Mass/Vol] 7.8 mg/dL Low 8.6 - 10. 6 mg/dL [facility] Chloride [Moles/Vol] 103 mmol/L 98 - 10 7 mmol/L [facility] CO2 [Moles/Vol] 25 mmol/L 21 - 32 mmol/L [facility] Creatinine [Mass/Vol] 0.87 mg/dL 0.50 - 1.30 mg/dL [facility] eGFR - PINF [facility] Comment on above: Calculations of cris mated GFR are performed using the 2020 CKD-EPI Study Refit equation without the race variable for the IDMS-Traceable creatinine methods. https://jasn.asnjournals.org/content//ASN.95432 01375 Glucose [Mass/Vol] 89 mg/dL 74 - 99 mg/dL [facility] Interpretation and review of laboratory results Abnormal [facility] Potassium [Moles/Vol] 3.4 mmol/L Low 3.5 - 5.3 mmol/L [facility] Sodium [Moles/Vol] 139 mmol/L 136 - 145 mmol/L [facility] Urea nitrogen [Mass/Vol] 14 mg/dL 6 - 23 mg/dL [facility] Anion gap [Moles/Vol] 14 mmol/L Normal 10-20 [facility] Comment on above: Performed By: #### 2 4321-2 ####ANASTACIO WOOD L ([id number])[facility] ([facility])[address] [place] [address] Calcium [Mass/Vol] 7.8 mg/dL Low 8.6-10.6 [facility] Comment on above: Performed By: #### 2 4321-2 ####ANASTACIO HAMMTZER L ([id number])[facility] ([facility])[address]755 [place] [address] Chloride [Moles/Vol] 103 mmol/L Normal 98-107 [facility] Comment on above: Performed By: #### 2 4321-2 ####ANASTACIO WOOD L ([id number])[facility] ([facility])[address]67 [place] [address] CO2 [Moles/Vol] 25 mmol/L Normal 21-32 [facility] Comment on above: Performed By: #### 2 4321-2 ####ANASTACIO WOOD L ([id number])[facility] ([facility])[address] [place] [address] Creatinine [Mass/Vol] 0.87 mg/dL Normal 0.50-1.30 [facility] Comment on above: Performed By: #### 2 4321-2 ####ANASTACIO HAMMTZER L ([id number])[facility] ([facility])[address] [place] [address] GFR/1.73 sq M.predicted MDRD (S/P/Bld) [Vol rate/Area] mL/min/{1.73_m2} Normal >60 [facility] Comment on above: Result Comment: Calc ulations of estimated GFR are performed using the 2020 CKD-EPI Study Refit equation without the race variable for the IDMS-Traceable creatinine methods. https://jasn.asnjournals.org/content//ASN.20698 65184 Performed By: #### 2 4321-2 ####ANASTACIO Hodge ([id number])[facility] ([facility])[address]17 [place] [address] Glucose [Mass/Vol] 89 mg/dL Normal 74-99 [facility] Comment on above: Performed By: #### 2 4321-2 ####ANASTACIO Hodge ([id number])[facility] ([facility])[address]698 [place] [address] Potassium [Moles/Vol] 3.4 mmol/L Low 3.5-5.3 [facility] Comment on above: Performed By: #### 2 4321-2 ####ANASTACIO Hodge ([id number])[facility] ([facility])[address]12 [place] [address] Sodium [Moles/Vol] 139 mmol/L Normal 136-145 [facility] Comment on above: Performed By: #### 2 4321-2 ####ANASTACIO Hodge ([id number])[facility] ([facility])[address]491 [place] [address] Urea nitrogen [Mass/Vol] 14 mg/dL Normal 6-23 [facility] Comment on above: Performed By: #### 2 4321-2 ####ANASTACIO Hodge ([id number])[facility] ([facility])[id number] [place] [address] CBC W Auto Differential pane l (Bld)on 12-12-2023 Basophils (Bld) [#/Vol] 0.07 10*3/uL [facility] Basophils/100 WBC (Bld) 0.5 % 0.0 - 2.0 % [facility] Eosinophils (Bld) [#/Vol] 0.26 10*3/uL [facility] Eosinophils/100 WBC (Bld) 2.0 % 0.0 - 6.0 % [facility] Erythrocyte distribution width (RBC) [Ratio] 12.8 % 11.5 - 14.5 % [facility] Hematocrit (Bld) [Volume fraction] 34.8 % Low 41.0 - 52.0 % [facility] Hemoglobin (Bld) [Mass/Vol] 11.8 g/dL Low 13.5 - 17.5 g/dL [facility] Immature granulocytes (Bld) [#/Vol] 0.10 10*3/uL [facility] Immature granulocytes/100 WBC (Bld) 0.8 % 0.0 - 0.9 % [facility] Comment on above: Immature Granulocyte Count (IG) includes promyelocytes, myelocytes and metamyelocytes but does not include bands. Percent differential counts (%) should be interpreted in the context of the absolute cell counts (cells/UL). Interpretation and review of laboratory results Abnormal [facility] Lymphocytes (Bld) [#/Vol] 1.93 10*3/uL [facility] Lymphocytes/100 WBC (Bld) 14.7 % 13.0 - 44.0 % [facility] MCH (RBC) [Entitic mass] 27.8 pg 26.0 - 34.0 pg [facility] MCHC (RBC) [Mass/Vol] 33.9 g/dL 32.0 - 36.0 g/dL [facility] MCV (RBC) [Entitic vol] 82 fL 80 - 100 fL [facility] Monocytes (Bld) [#/Vol] 1.09 10*3/uL High [facility] Monocytes/100 WBC (Bld) 8.3 % 2.0 - 10.0 % [facility] Neutrophils (Bld) [#/Vol] 9.66 10*3/uL High [facility] Comment on above: Percent differential counts (%) should be interpreted in the context of the absolute cell counts (cells/uL). Neutrophils/100 WBC (Bld) 73.7 % 40.0 - 80.0 % [facility] Nucleated RBC/100 WBC (Bld) [Ratio] 0.0 % [facility] Platelets (Bld) [#/Vol] 296 10*3/uL [facility] RBC (Bld) [#/Vol] 4.25 10*6/uL Low [facility] WBC (Bld) [#/Vol] 13.1 10*3/uL [facility] Basophils (Bld) [#/Vol] 0.07 x10*3/uL Normal 0.00-0.10 [facility] Comment on above: Performed By: #### 5 7021-8 #### ANASTACIO Hodge ([id number]) [facility] ([facility]) [address] [place] [address] Basophils/100 WBC (Bld) 0.5 % Normal 0.0-2.0 [facility] Comment on above: Performed By: #### 5 7021-8 #### ANASTACIO Hodge ([id number]) [facility] ([facility]) [address] [place] [address] Eosinophils (Bld) [#/Vol] 0.26 x10*3/uL Normal 0.00-0.70 [facility] Comment on above: Performed By: #### 5 7021-8 #### ANASTACIO WOOD L ([id number]) [facility] ([facility]) [address] [place] [address] Eosinophils/100 WBC (Bld) 2.0 % Normal 0.0-6.0 [facility] Comment on above: Performed By: #### 5 7021-8 #### ANASTACIO Hodge ([id number]) [facility] ([facility]) [address] [place] [address] Erythrocyte distribution width (RBC) [Ratio] 12.8 % Normal 11.5-14.5 [facility] Comment on above: Performed By: #### 5 7021-8 #### ANASTACIO WOOD L ([id number]) [facility] ([facility]) [address] [place] [address] Hematocrit (Bld) [Volume fraction] 34.8 % Low 41.0-52.0 [facility] Comment on above: Performed By: #### 5 7021-8 #### ANASTACIO WOOD L ([id number]) [facility] ([facility]) [address] [place] [address], [place] [address] Hemoglobin (Bld) [Mass/Vol] 11.8 g/dL Low 13.5-17.5 [facility] Comment on above: Performed By: #### 5 7021-8 #### ANASTACIO Hodge ([id number]) [facility] ([facility]) [address] [place] [address] Immature granulocytes (Bld) [#/Vol] 0.10 x10*3/uL Normal 0.00-0.70 [facility] Comment on above: Performed By: #### 5 7021-8 #### ANASTACIO Hodge ([id number]) [facility] ([facility]) [address] [place] [address] Immature granulocytes/100 WBC (Bld) 0.8 % Normal 0.0-0.9 [facility] Comment on above: Result Comment: Brittany ture Granulocyte Count (IG) includes promyelocytes, myelocytes and metamyelocytes but does not include bands. Percent differential counts (%) should be interpreted in the context of the absolute cell counts (cells/UL). Performed By: #### 5 7021-8 #### ANASTACIO Hodge ([id number]) [facility] ([facility]) [address] [place] [address] Lymphocytes (Bld) [#/Vol] 1.93 x10*3/uL Normal 1.20-4.80 [facility] Comment on above: Performed By: #### 5 7021-8 #### ANASTACIO Hodge ([id number]) [facility] ([facility]) [address] [place] [address] Lymphocytes/100 WBC (Bld) 14.7 % Normal 13.0-44.0 [facility] Comment on above: Performed By: #### 5 7021-8 #### ANASTACIO Hodge ([id number]) [facility] ([facility]) [address] [place] [address] MCH (RBC) [Entitic mass] 27.8 pg Normal 26.0-34.0 [facility] Comment on above: Performed By: #### 5 7021-8 #### ANASTACIO Hodge ([id number]) [facility] ([facility]) [address] [place] [address] MCHC (RBC) [Mass/Vol] 33.9 g/dL Normal 32.0-36.0 [facility] Comment on above: Performed By: #### 5 7021-8 #### ANASTACIO WOOD L ([id number]) [facility] ([facility]) [address] [place] [address] MCV (RBC) [Entitic vol] 82 fL Normal 80-100 [facility] Comment on above: Performed By: #### 5 7021-8 #### ANASTACIO Hodge ([id number]) [facility] ([facility]) [address] [place] [address]805 Monocytes (Bld) [#/Vol] 1.09 x10*3/uL High 0.10-1.00 [facility] Comment on above: Performed By: #### 5 7021-8 #### ANASTACIO WOOD L ([id number]) [facility] ([facility]) [id number] [place] [address]40 Monocytes/100 WBC (Bld) 8.3 % Normal 2.0-10.0 [facility] Comment on above: Performed By: #### 5 7021-8 #### ANASTACIO KENNYMODEBI L ([id number]) [facility] ([facility]) [address] [place] [address]84 Neutrophils (Bld) [#/Vol] 9.66 x10*3/uL High 1.20-7.70 [facility] Comment on above: Result Comment: Perc ent differential counts (%) should be interpreted in the context of the absolute cell counts (cells/uL). Performed By: #### 5 7021-8 #### ANASTACIO KENNYMOTZSABINE L ([id number]) [facility] ([facility]) [address] [place] [address] Neutrophils/100 WBC (Bld) 73.7 % Normal 40.0-80.0 [facility] Comment on above: Performed By: #### 5 7021-8 #### ANASTACIO Hodge ([id number]) [facility] ([facility]) [address] [place] [address] 34091 Nucleated RBC/100 WBC (Bld) [Ratio] 0.0 /100 WBCs Normal 0.0-0.0 [facility] Comment on above: Performed By: #### 5 7021-8 #### ANASTACIO Hodge ([id number]) [facility] ([facility]) [address] [place] [address]80 Platelets (Bld) [#/Vol] 296 x10*3/uL Normal 150-450 [facility] Comment on above: Performed By: #### 5 7021-8 #### ANASTACIO Hodge ([id number]) [facility] ([facility]) [address] [place] [address] 00294 RBC (Bld) [#/Vol] 4.25 x10*6/uL Low 4.50-5.90 [facility] Comment on above: Performed By: #### 5 7021-8 #### ANASTACIO Hodge ([id number]) [facility] ([facility]) [address] [place] [address] 86178 WBC (Bld) [#/Vol] 13.1 x10*3/uL High 4.4-11.3 [facility] Comment on above: Performed By: #### 5 7021-8 #### ANASTACIO Hodge ([id number]) [facility] ([facility]) [address] [place] [address] Magnesiumon 12-12-2023 Magnesium [Mass/Vol] 1.81 mg/dL 1.60 - 2.40 mg/dL [facility] Magnesium [Mass/Vol] 1.81 mg/dL Normal 1.60-2.40 [facility] Comment on above: Performed By: #### 1 9123-9 #### ANASTACIO Hodge ([id number]) [facility] ([facility]) [address] [place] [address] 26317 Magnesium [Mass/Vol]on 12-11 Interpretation and review of laboratory results Normal [facility] No Panel Informationon 12-11 [facility] ECG 12-LEADon 12-11-2023 ECG 12-LEAD Ventricular Rate 104 Atrial Rate 104 P-R Interval 154 QRS Duration 94 Q-T Interval 346 QTC Calculation(Bazett) 454 P [place] 43 R [place] 9 T [place] 27 QRS Count 17 Q Onset 216 P Onset 139 P Offset 196 T Offset 389 QTC Fredericia 415 Diagnosis Sinus tachycardia Minimal voltage criteria for LVH, may be normal variant Borderline ECG No previous ECGs available Confirmed by Dustin Lyman ([id number]) on 12/14/2023 2:58:33 PM Normal [facility] XR ABDOMEN 1 VIEWon 12-11-19 24 XR ABDOMEN 1 VIEW Interpreted By: Victoriano Warren and Liller Gregory STUDY: XR ABDOMEN 1 VIEW; 12/11/2023 12:18 pm INDICATION: Signs/Symptoms:Confi rm NG tube placement. COMPARISON: 12/10/2023 ACCESSION NUMBER(S): [id number] ORDERING CLINICIAN: CORRIE CAI FINDINGS: Interval placement [...] Benny Matamoros. The study was interpreted at [facility] in [facility]. MACRO: none Signed by: Victoriano Warren 12/11/2023 4:14 PM Dictation workstation: [id number] [address] [facility] XR Abdomen Single viewon 1. Enteric tube projects over the expected location of the gastric antrum/proximal duodenum. 2. Similar gaseous distention of multiple loops of small bowel when compared to prior exam. I personally reviewed the images/study and I agree with the findings as stated above by resident physician, Dr. Benny Matamoros. The study was interpreted at [facility] in [facility]. MACRO: none Signed by: Victoriano Warren 12/11/2023 4:14 PM Dictation workstation: [id number] Interpreted By: Victoriano Warren and Liller Gregory STUDY: XR ABDOMEN 1 VIEW; 12/11/2023 12:18 pm INDICATION: Signs/Symptoms:Confi rm NG tube placement. COMPARISON: 12/10/2023 ACCESSION NUMBER(S): [id number] ORDERING CLINICIAN: CORRIE MEDVED FINDINGS: Interval placement [...] NG tube placement. COMPARISON: 12/10/2023 ACCESSION NUMBER(S): [id number] ORDERING CLINICIAN: CORRIE TAVAREZVED FINDINGS: Interval placement [...] Benny Matamoros. The study was interpreted at [facility] in [facility]. MACRO: none Signed by: Victoriano Warren 12/11/2023 4:14 PM Dictation workstation: [id number] [facility] Work Phone: [facility] Work Phone: Radiology Study observation (narrative) [facility] Work Phone: 1. Gaseous distention of multiple loops of bowel throughout the abdomen with overall nonobstructive bowel gas pattern. Findings compatible with postoperative ileus. 2. Postsurgical changes as described above. I personally reviewed the images/study and I agree with Leti Dumont DO's (manager of radiology) findings as stated. This study was interpreted at [place], [place]. MACRO: None Signed by: Victoriano Warren 12/11/2023 11:13 AM Dictation workstation: [id number] MMODAL Interpreted By: Victoriano Warren and Stephens Katherine STUDY: XR ABDOMEN 1 VIEW; 12/10/2023 11:52 pm INDICATION: Signs/Symptoms:c/f postop ileus. COMPARISON: Pelvic radiographs 12/08/2023 ACCESSION NUMBER(S): [id number] ORDERING CLINICIAN: ROXANNA BERMAN FINDINGS: Postsurgical changes [...] ileus. COMPARISON: Pelvic radiographs 12/08/2023 ACCESSION NUMBER(S): [id number] ORDERING CLINICIAN: ROXANNA BERMAN FINDINGS: Postsurgical changes [...] and I agree with Leti Dumont DO's (manager of radiology) findings as stated. This study was interpreted at [facility], [place], [place]. MACRO: None Signed by: Victoriano Warren 12/11/2023 11:13 AM Dictation workstation: [id number] [facility] Work Phone: XR Abdomen Single viewOrdere d By: Laci Warren on 12-11-2023 [facility] [facility] Work Phone: Basic metabolic 2000 panelon 12-10-2023 Anion gap [Moles/Vol] 14 mmol/L 10 - 2 0 mmol/L [facility] Calcium [Mass/Vol] 9.3 mg/dL 8.6 - 10. 6 mg/dL [facility] Chloride [Moles/Vol] 95 mmol/L Low 98 - 10 7 mmol/L [facility] CO2 [Moles/Vol] 31 mmol/L 21 - 32 mmol/L [facility] Creatinine [Mass/Vol] 1.01 mg/dL 0.50 - 1.30 mg/dL [facility] eGFR - PINF [facility] Comment on above: Calculations of cris mated GFR are performed using the 2020 CKD-EPI Study Refit equation without the race variable for the IDMS-Traceable creatinine methods. https://jasn.asnjournals.org/content/early/ASN.28272 18560 Glucose [Mass/Vol] 109 mg/dL High 74 - 99 mg/dL [facility] Interpretation and review of laboratory results Abnormal [facility] Potassium [Moles/Vol] 4.2 mmol/L 3.5 - 5.3 mmol/L [facility] Sodium [Moles/Vol] 136 mmol/L 136 - 145 mmol/L [facility] Urea nitrogen [Mass/Vol] 12 mg/dL 6 - 23 mg/dL [facility] Anion gap [Moles/Vol] 14 mmol/L Normal 10-20 [facility] Comment on above: Performed By: #### 2 4321-2 #### ANASTACIO WOOD L ([id number]) [facility] ([facility]) [address] [place] [address] 84410 Calcium [Mass/Vol] 9.3 mg/dL Normal 8.6-10.6 [facility] Comment on above: Performed By: #### 2 4321-2 #### ANASTACIO HAMMTZER L ([id number]) [facility] ([facility]) [address] [place] [address] 13766 Chloride [Moles/Vol] 95 mmol/L Low 98-107 [facility] Comment on above: Performed By: #### 2 4321-2 #### ANASTACIO WOOD L ([id number]) [facility] ([facility]) [address] [place] [address] 16610 CO2 [Moles/Vol] 31 mmol/L Normal 21-32 [facility] Comment on above: Performed By: #### 2 4321-2 #### ANASTACIO WOOD L ([id number]) [facility] ([facility]) [address] [place] [address] 16460 Creatinine [Mass/Vol] 1.01 mg/dL Normal 0.50-1.30 [facility] Comment on above: Performed By: #### 2 4321-2 #### ANASTACIO WOOD L ([id number]) [facility] ([facility]) [address] [place] [address] 41092 GFR/1.73 sq M.predicted MDRD (S/P/Bld) [Vol rate/Area] mL/min/{1.73_m2} Normal >60 [facility] Comment on above: Result Comment: Calc ulations of estimated GFR are performed using the 2020 CKD-EPI Study Refit equation without the race variable for the IDMS-Traceable creatinine methods. https://jasn.asnjournals.org/content//ASN.51255 25647 Performed By: #### 2 4321-2 #### ANASTACIO Hodge ([id number]) [facility] ([facility]) [address] [place] [address] Glucose [Mass/Vol] 109 mg/dL High 74-99 [facility] Comment on above: Performed By: #### 2 4321-2 #### ANASTACIO Hodge ([id number]) [facility] ([facility]) [address] [place] [address] 43064 Potassium [Moles/Vol] 4.2 mmol/L Normal 3.5-5.3 [facility] Comment on above: Performed By: #### 2 4321-2 #### ANASTACIO Hodge ([id number]) [facility] ([facility]) [address] [place] [address] 50973 Sodium [Moles/Vol] 136 mmol/L Normal 136-145 [facility] Comment on above: Performed By: #### 2 4321-2 #### ANASTACIO Hodge ([id number]) [facility] ([facility]) [address] [place] [address] 96376 Urea nitrogen [Mass/Vol] 12 mg/dL Normal 6-23 [facility] Comment on above: Performed By: #### 2 4321-2 #### ANASTACIO WOOD L ([id number]) [facility] ([facility]) [address] [place] [address] 87616 CBC W Auto Differential pane l (Bld)on 12-10-2023 Basophils (Bld) [#/Vol] 0.08 10*3/uL [facility] Basophils/100 WBC (Bld) 0.7 % 0.0 - 2.0 % [facility] Eosinophils (Bld) [#/Vol] 0.17 10*3/uL [facility] Eosinophils/100 WBC (Bld) 1.4 % 0.0 - 6.0 % [facility] Erythrocyte distribution width (RBC) [Ratio] 13.1 % 11.5 - 14.5 % [facility] Hematocrit (Bld) [Volume fraction] 40.2 % Low 41.0 - 52.0 % [facility] Hemoglobin (Bld) [Mass/Vol] 12.9 g/dL Low 13.5 - 17.5 g/dL [facility] Immature granulocytes (Bld) [#/Vol] 0.11 10*3/uL [facility] Immature granulocytes/100 WBC (Bld) 0.9 % 0.0 - 0.9 % [facility] Comment on above: Immature Granulocyte Count (IG) includes promyelocytes, myelocytes and metamyelocytes but does not include bands. Percent differential counts (%) should be interpreted in the context of the absolute cell counts (cells/UL). Interpretation and review of laboratory results Abnormal [facility] Lymphocytes (Bld) [#/Vol] 1.82 10*3/uL [facility] Lymphocytes/100 WBC (Bld) 15.4 % 13.0 - 44.0 % [facility] MCH (RBC) [Entitic mass] 27.6 pg 26.0 - 34.0 pg [facility] MCHC (RBC) [Mass/Vol] 32.1 g/dL 32.0 - 36.0 g/dL [facility] MCV (RBC) [Entitic vol] 86 fL 80 - 100 fL [facility] Monocytes (Bld) [#/Vol] 0.86 10*3/uL [facility] Monocytes/100 WBC (Bld) 7.3 % 2.0 - 10.0 % [facility] Neutrophils (Bld) [#/Vol] 8.78 10*3/uL High [facility] Comment on above: Percent differential counts (%) should be interpreted in the context of the absolute cell counts (cells/uL). Neutrophils/100 WBC (Bld) 74.3 % 40.0 - 80.0 % [facility] Nucleated RBC/100 WBC (Bld) [Ratio] 0.0 % [facility] Platelets (Bld) [#/Vol] 286 10*3/uL [facility] RBC (Bld) [#/Vol] 4.67 10*6/uL [facility] WBC (Bld) [#/Vol] 11.8 10*3/uL [facility] Basophils (Bld) [#/Vol] 0.08 x10*3/uL Normal 0.00-0.10 [facility] Comment on above: Performed By: #### 5 7021-8 #### ANASTACIO Hodge ([id number]) [facility] ([facility]) [address] [place] [address] 44069 Basophils/100 WBC (Bld) 0.7 % Normal 0.0-2.0 [facility] Comment on above: Performed By: #### 5 7021-8 #### ANASTACIO Hodge ([id number]) [facility] ([facility]) [address] [place] [address] 20408 Eosinophils (Bld) [#/Vol] 0.17 x10*3/uL Normal 0.00-0.70 [facility] Comment on above: Performed By: #### 5 7021-8 #### ANASTACIO Hodge ([id number]) [facility] ([facility]) [address] [place] [address] 28028 Eosinophils/100 WBC (Bld) 1.4 % Normal 0.0-6.0 [facility] Comment on above: Performed By: #### 5 7021-8 #### ANASTACIO Hodge ([id number]) [facility] ([facility]) [address] [place] [address] 91765 Erythrocyte distribution width (RBC) [Ratio] 13.1 % Normal 11.5-14.5 [facility] Comment on above: Performed By: #### 5 7021-8 #### ANASTACIO Hodge ([id number]) [facility] ([facility]) [address] [place] [address] 97368 Hematocrit (Bld) [Volume fraction] 40.2 % Low 41.0-52.0 [facility] Comment on above: Performed By: #### 5 7021-8 #### ANASTACIO Hodge ([id number]) [facility] ([facility]) [address] [place] [address] 50744 Hemoglobin (Bld) [Mass/Vol] 12.9 g/dL Low 13.5-17.5 [facility] Comment on above: Performed By: #### 5 7021-8 #### ANASTACIO Hodge ([id number]) [facility] ([facility]) [address] [place] [address] 51756 Immature granulocytes (Bld) [#/Vol] 0.11 x10*3/uL Normal 0.00-0.70 [facility] Comment on above: Performed By: #### 5 7021-8 #### ANASTACIO Hodge ([id number]) [facility] ([facility]) [address] [place] [address] 07729 Immature granulocytes/100 WBC (Bld) 0.9 % Normal 0.0-0.9 [facility] Comment on above: Result Comment: Brittany ture Granulocyte Count (IG) includes promyelocytes, myelocytes and metamyelocytes but does not include bands. Percent differential counts (%) should be interpreted in the context of the absolute cell counts (cells/UL). Performed By: #### 5 7021-8 #### ANASTACIO Hodge ([id number]) [facility] ([facility]) [address] [place] [address] 20156 Lymphocytes (Bld) [#/Vol] 1.82 x10*3/uL Normal 1.20-4.80 [facility] Comment on above: Performed By: #### 5 7021-8 #### ANASTACIO Hodge ([id number]) [facility] ([facility]) [address] [place] [address] 17477 Lymphocytes/100 WBC (Bld) 15.4 % Normal 13.0-44.0 [facility] Comment on above: Performed By: #### 5 7021-8 #### ANASTACIO Hodge ([id number]) [facility] ([facility]) [address] [place] [address] 32141 MCH (RBC) [Entitic mass] 27.6 pg Normal 26.0-34.0 [facility] Comment on above: Performed By: #### 5 7021-8 #### ANASTACIO Hodge ([id number]) [facility] ([facility]) [address] [place] [address] MCHC (RBC) [Mass/Vol] 32.1 g/dL Normal 32.0-36.0 [facility] Comment on above: Performed By: #### 5 7021-8 #### ANASTACIO Hodge ([id number]) [facility] ([facility]) [address] [place] [address] 53336 MCV (RBC) [Entitic vol] 86 fL Normal 80-100 [facility] Comment on above: Performed By: #### 5 7021-8 #### ANASTACIO Hodge ([id number]) [facility] ([facility]) [address] [place] [address] 95493 Monocytes (Bld) [#/Vol] 0.86 x10*3/uL Normal 0.10-1.00 [facility] Comment on above: Performed By: #### 5 7021-8 #### ANASTACIO Hodge ([id number]) [facility] ([facility]) [address] [place] [address] 31826 Monocytes/100 WBC (Bld) 7.3 % Normal 2.0-10.0 [facility] Comment on above: Performed By: #### 5 7021-8 #### ANASTACIO Hodge ([id number]) [facility] ([facility]) [address] [place] [address] 68771 Neutrophils (Bld) [#/Vol] 8.78 x10*3/uL High 1.20-7.70 [facility] Comment on above: Result Comment: Perc ent differential counts (%) should be interpreted in the context of the absolute cell counts (cells/uL). Performed By: #### 5 7021-8 #### ANASTACIO Hodge ([id number]) [facility] ([facility]) [address] [place] [address] 62913 Neutrophils/100 WBC (Bld) 74.3 % Normal 40.0-80.0 [facility] Comment on above: Performed By: #### 5 7021-8 #### ANASTACIO Hodge ([id number]) [facility] ([facility]) [address] [place] [address] Nucleated RBC/100 WBC (Bld) [Ratio] 0.0 /100 WBCs Normal 0.0-0.0 [facility] Comment on above: Performed By: #### 5 7021-8 #### ANASTACIO WOOD L ([id number]) [facility] ([facility]) [address] [place] [address] Platelets (Bld) [#/Vol] 286 x10*3/uL Normal 150-450 [facility] Comment on above: Performed By: #### 5 7021-8 #### ANASTACIO Hodge ([id number]) [facility] ([facility]) [address] [place] [address] 43800 RBC (Bld) [#/Vol] 4.67 x10*6/uL Normal 4.50-5.90 [facility] Comment on above: Performed By: #### 5 7021-8 #### ANASTACIO WOOD L ([id number]) [facility] ([facility]) [address] [place] [address] 50456 WBC (Bld) [#/Vol] 11.8 x10*3/uL High 4.4-11.3 [facility] Comment on above: Performed By: #### 5 7021-8 #### ANASTACIO Hodge ([id number]) [facility] ([facility]) [address] [place] [address] 30477 XR ABDOMEN 1 VIEWon 12-10-19 24 XR ABDOMEN 1 VIEW Interpreted By: Victoriano Warren and Stephens Katherine STUDY: XR ABDOMEN 1 VIEW; 12/10/2023 11:52 pm INDICATION: Signs/Symptoms:c/f postop ileus. COMPARISON: Pelvic radiographs 12/08/2023 ACCESSION NUMBER(S): [id number] ORDERING CLINICIAN: ROXANNA BERMAN FINDINGS: Postsurgical changes [...] and I agree with Leti Dumont DO's (manager of radiology) findings as stated. This study was interpreted at [place], [place]. MACRO: None Signed by: Victoriano Warren 12/11/2023 11:13 AM Dictation workstation: [id number] [facility] XR Abdomen Single viewon Radiology Study observation (narrative) [facility] Work Phone: Blood type and Indirect anti body screen panel (Bld)on 12-08-2023 ABO group Nom (Bld) O [facility] Blood group antibody screen Ql Negative [facility] D Ag Ql (Bld) Positive [facility] ABO group Nom (Bld) O Normal [facility] Comment on above: Performed By: #### 3 4532-2 #### ANASTACIO Hodge ([id number]) [facility] ([facility]) [address] [place] [address] Blood group antibody screen Ql Negative [facility] Comment on above: Performed By: #### 3 4532-2 #### ANASTACIO Hodge ([id number]) [facility] ([facility] [address] [place] [address] D Ag Ql (Bld) Positive [facility] Comment on above: Performed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 #### [facility] [address] [place] [address] Dr. Fazal Shearer Monocytes/100 WBC (Bld) 7.5 % Normal 1.7-12.[address] [facility] Comment on above: Performed By: #### B CATHY, TSH #### [facility] [address] [place] [address] Dr. Fazal Shearer NEUT # 4.4 103/ul Normal 1.4-6.[address] [facility] Comment on above: Performed By: #### B CATHY, TSH #### [facility] [address] [place] [address] Dr. Fazal Shearer Neutrophils/100 WBC (Bld) 58.5 % Normal 43.0-75.0 [facility] Comment on above: Performed By: #### B CATHY, TSH #### [facility] [address] [place] [address] Dr. Fazal Shearer Platelet mean volume (Bld) [Entitic vol] 9.1 fL Critically low 9.5-13.[address] [facility] Comment on above: Performed By: #### B CATHY, TSH #### [facility] [address] [place] [address] Dr. Fazal Shearer PLT 245 103/ul Normal 150-[address] [facility] Comment on above: Performed By: #### B CATHY, TSH #### [facility] [address] [place] [address] Dr. Fazal Shearer RBC 5.34 106/ul Normal 4.70-6.[address] [facility] Comment on above: Performed By: #### B CATHY, TSH #### [facility] [address] [place] [address] Dr. Fazal Shearer WBC 7.5 103/ul Normal 4.0-11.[address] [facility] Comment on above: Performed By: #### B CATHY, TSH #### [facility] [address] [place] [address] Dr. Fazal Shearer PROF CHEM 8 (BAS METB)on Anion gap [Moles/Vol] 9.3 mmol/L Normal [facility] Comment on above: Performed By: #### B MP, TSH #### [facility] [address] [place] [address] Dr. Fazal Shearer Calcium [Mass/Vol] 9.2 mg/dL Normal 8.5-10.1 [facility] Comment on above: Performed By: #### B MP, TSH #### [facility] [address] [place] [address] Dr. Fazal Shearer Chloride [Moles/Vol] 105 mmol/L Normal 98-[address] [facility] Comment on above: Performed By: #### B MP, TSH #### [facility] [address] [place] [address] Dr. Fazal Shearer CO2 [Moles/Vol] 31.9 mmol/L Normal 21.0-32.0 [facility] Comment on above: Performed By: #### B MP, TSH #### [facility] [address] [place] [address] Dr. Fazal Shearer Creatinine [Mass/Vol] 1.04 mg/dL Normal 0.70-1.[address] [facility] Comment on above: Performed By: #### B MP, TSH #### [facility] [address] [place] [address] Dr. Fazal Shearer EGFR-AF BOLIVIAN >60 Normal >=60 [facility] Comment on above: Performed By: #### B MP, TSH #### [facility] [address] [place] [address] Dr. Fazal Shearer EGFR-NON AF BOLIVIAN >60 Normal >=60 [facility] Comment on above: Performed By: #### B MP, TSH #### [facility] [address] [place] [address] Dr. Fazal Shearer Glucose [Mass/Vol] 102 mg/dL Normal 74-106 [facility] Comment on above: Performed By: #### B MP, TSH #### [facility] [address] [place] [address] Dr. Fazal Shearer Potassium [Moles/Vol] 5.2 mmol/L Critically high 3.5-5.1 [facility] Comment on above: Performed By: #### B MP, TSH #### [facility] [address] [place] [address] Dr. Fazal Shearer Sodium [Moles/Vol] 141 mmol/L Normal 136-145 [facility] Comment on above: Performed By: #### B MP, TSH #### [facility] [address] [place] [address] Dr. Fazal Shearer Urea nitrogen [Mass/Vol] 15.0 mg/dL Normal 7.0-18.0 [facility] Comment on above: Performed By: #### B CATHY, TSH #### [facility] [address] [place] [address] Dr. Fazal Shearer Urea nitrogen/Creatinine [Mass ratio] 14.4 mg/mg Normal [facility] Comment on above: Performed By: #### B CATHY, TSH #### [facility] [address] [place] [address] Dr. Fazal Shearer TSHon 07-06-2022 TSH 1.300 uIU/mL Normal 0.358-3.740 [facility] Comment on above: Performed By: #### B CATHY, TSH #### [facility] [address] [place] [address] Dr. Fazal Shearer CBC AUTO DIFFon 03-31-2022 BASO # 0.1 103/ul Normal 0.0-0.1 [facility] Comment on above: Performed By: #### B MP, TSH #### [facility] [address] [place] [address] Dr. Fazal Shearer Basophils/100 WBC (Bld) 0.9 % Normal 0.2-2.0 [facility] Comment on above: Performed By: #### B MP, TSH #### [facility] [address] [place] [address] Dr. Fazal Shearer EO # 0.2 103/ul Normal 0.0-0.7 [facility] Comment on above: Performed By: #### B CATHY, TSH #### [facility] [address] [address] [address] Fazal Shearer Eosinophils/100 WBC (Bld) 3.2 % Normal 0.9-7.0 [facility] Comment on above: Performed By: #### B MP, TSH #### [facility] [address] [place] [address] Dr. Fazal Shearer Erythrocyte distribution width (RBC) [Ratio] 12.2 % Normal 11.0-15.0 [facility] Comment on above: Performed By: #### B MP, TSH #### [facility] [address] [place] [address] Dr. Fazal Shearer Hematocrit (Bld) [Volume fraction] 41.3 % Critically low 42.0-54.0 [facility] Comment on above: Performed By: #### B MP, TSH #### [facility] [address] [place] [address] Dr. Fazal Shearer Hemoglobin (Bld) [Mass/Vol] 14.1 g/dL Normal 14.0-18.0 [facility] Comment on above: Performed By: #### B MP, TSH #### [facility] [address] [place] [address] Dr. Fazal Shearer IG # 0.05 10e3/ul Critically high 0.00-0.03 [facility] Comment on above: Performed By: #### B MP, TSH #### [facility] [address] [place] [address] Dr. Fazal Shearer IG % 0.9 % Critically high 0.0-0.5 [facility] Comment on above: Performed By: #### B MP, TSH #### [facility] [address] [place] [address] Dr. Fazal Shearer LYMPH # 2.0 103/ul Normal 1.2-3.[address] [facility] Comment on above: Performed By: #### B MP, TSH #### [facility] [address] [place] [address] Dr. Fazal Shearer Lymphocytes/100 WBC (Bld) 33.5 % Normal 20.5-60.0 [facility] Comment on above: Performed By: #### B MP, TSH #### [facility] [address] [place] [address] Dr. Fazal Shearer MANUAL DIFF REQ NO Normal [facility] Comment on above: Performed By: #### B MP, TSH #### [facility] [address] [place] [address] Dr. Fazal Shearer MCH (RBC) [Entitic mass] 29.3 pg Normal 25.9-34.0 [facility] Comment on above: Performed By: #### B MP, TSH #### [facility] [address] [place] [address] Dr. Fazal Shearer MCHC (RBC) [Mass/Vol] 34.1 g/dL Normal 29.9-35.2 [facility] Comment on above: Performed By: #### B MP, TSH #### [facility] [address] [place] [address] Dr. Fazal Shearer MCV (RBC) [Entitic vol] 85.9 fL Normal 80.0-94.0 [facility] Comment on above: Performed By: #### B MP, TSH #### [facility] [address] [place] [address] Dr. Fazal Shearer MONO # 0.5 103/ul Normal 0.3-0.8 [facility] Comment on above: Performed By: #### B MP, TSH #### [facility] [address] [place] [address] Dr. Fazal Shearer Monocytes/100 WBC (Bld) 8.4 % Normal 1.7-12.0 [facility] Comment on above: Performed By: #### B MP, TSH #### [facility] [address] [place] [address] Dr. Fazal Shearer NEUT # 3.1 103/ul Normal 1.4-6.5 [facility] Comment on above: Performed By: #### B MP, TSH #### [facility] [address] [place] [address] Dr. Fazal Shearer Neutrophils/100 WBC (Bld) 53.1 % Normal 43.0-75.0 [facility] Comment on above: Performed By: #### B MP, TSH #### [facility] [address] [address] [address] Fazal Shearer Platelet mean volume (Bld) [Entitic vol] 9.3 fL Critically low 9.5-13.5 [facility] Comment on above: Performed By: #### B MP, TSH #### [facility] [address] [address] [address] Fazal Shearer PLT 248 103/ul Normal 150-450 [facility] Comment on above: Performed By: #### B MP, TSH #### [facility] [address] [address] [address] Fazal Shearer RBC 4.81 106/ul Normal 4.70-6.10 [facility] Comment on above: Performed By: #### B MP, TSH #### [facility] [address] [address] [address] Fazal Shearer WBC 5.9 103/ul Normal 4.0-11.0 [facility] Comment on above: Performed By: #### B MP, TSH #### [facility] [address] [place] [address] Dr. Fazal Shearer ECHOCARDIO M/2D COMPLETEon 0 03-31-2022 ECHOCARDIO M/2D COMPLETE Patient: PROSPER MILIAN Exam Date: 03/31/2022 : 1975 Gender:M Ordering : DR CHANTAL MART M.D. Admission #: [id number] Family : Order #: [id number] CLICK HERE TO VIEW EXAM ECHOCARDIOGRAM REPORT [...] M.D. on 03/31/2022 at 19:[address] [facility] PROF CHEM 8 (BAS METB)on Anion gap [Moles/Vol] 7.8 mmol/L Normal [facility] Comment on above: Performed By: #### B CATHY, TSH #### [facility] [address] [address] [address] Fazal Shearer Calcium [Mass/Vol] 8.4 mg/dL Critically low 8.5-10.1 [facility] Comment on above: Performed By: #### B MP, TSH #### [facility] [address] [address] [address] Fazal Shearer Chloride [Moles/Vol] 104 mmol/L Normal 98-107 [facility] Comment on above: Performed By: #### B MP, TSH #### [facility] [address] [address] [address] Fazal Shearer CO2 [Moles/Vol] 30.3 mmol/L Normal 21.0-32.0 [facility] Comment on above: Performed By: #### B MP, TSH #### [facility] [address] [address] [address] Fazal Shearer Creatinine [Mass/Vol] 0.99 mg/dL Normal 0.70-1.30 [facility] Comment on above: Performed By: #### B MP, TSH #### [facility] [address] [address] [address] Fazal Shearer EGFR-AF BOLIVIAN >60 Normal >=60 [facility] Comment on above: Performed By: #### B MP, TSH #### [facility] [address] [address] [address] Fazal Shearer EGFR-NON AF BOLIVIAN >60 Normal >=60 [facility] Comment on above: Performed By: #### B MP, TSH #### [facility] [address] [place] [address] Dr. Fazal Shearer Glucose [Mass/Vol] 103 mg/dL Normal 74-106 [facility] Comment on above: Performed By: #### B MP, TSH #### [facility] [address] [place] [address] Dr. Fazal Shearer Potassium [Moles/Vol] 4.1 mmol/L Normal 3.5-5.1 [facility] Comment on above: Performed By: #### B MP, TSH #### [facility] [address] [place] [address] Dr. Fazal Shearer Sodium [Moles/Vol] 138 mmol/L Normal 136-145 [facility] Comment on above: Performed By: #### B MP, TSH #### [facility] [address] [place] [address] Dr. Fazal Shearer Urea nitrogen [Mass/Vol] 17.0 mg/dL Normal 7.0-18.0 [facility] Comment on above: Performed By: #### B MP, TSH #### [facility] [address] [place] [address] Dr. Fazal Shearer Urea nitrogen/Creatinine [Mass ratio] 17.2 mg/mg Normal [facility] Comment on above: Performed By: #### B MP, TSH #### [facility] [address] [place], [place] [address] Dr. Fazal Shearer TSHon 03-31-2022 TSH 0.867 uIU/mL Normal 0.358-3.740 [facility] Comment on above: Performed By: #### B MP, TSH #### [facility] [address] [place], [place] [address] LUMBAR SPINE W [...] mm posterior listhesis of L5 on S1. [facility]AINA PHARMA Work Phone: [place] Incoming Radiant Results From [employer] - 02/26/2021 10:26 AM EDT IMPRESSION: L5/S1 [...] mm posterior listhesis of L5 on S1. [facility] PHARMA Work Phone: IR LUMBAR PUNCTURE FOR MYELO [...] Please see CT dictation for full details. [facility] Phone: [place], [place] Incoming Radiant Results From [employer] - 02/26/2021 11:13 AM EDT IMPRESSION: 1. [...] Please see CT dictation for full details. [facility] Phone: No Panel InformationOrdered By: Hamilton Elder on 02-26-2021 [facility] Phone: [facility] Phone: CT LUMBAR SPINE W CONTRASTon 02-25-2021 [...] Shun Shah MD 02/26/21 Final result Normal [facility] IR LUMBAR PUNCTURE FOR MYELO GRAM [...] Shun Shah MD 02/26/21 Final result Normal [facility] Basic Metabolic Panelon 02-05 Anion gap [Moles/Vol] 10 mmol/L Normal 9-15 [facility] Comment on above: Performed By: #### B MP #### [facility] [address] [place] [address] Calcium [Mass/Vol] 9.3 mg/dL Normal 8.5-9.9 [facility] Comment on above: Performed By: #### B MP #### [facility] [address] [place] [address] Chloride [Moles/Vol] 102 mmol/L Normal 95-107 [facility] Comment on above: Performed By: #### B MP #### [facility] [address] [place] [address] CO2 [Moles/Vol] 27 mmol/L Normal 20-31 [facility] Comment on above: Performed By: #### B MP #### [facility] [address] [place] [address] Creatinine [Mass/Vol] 0.83 mg/dL Normal 0.70-1.20 [facility] Comment on above: Performed By: #### B MP #### [facility] [address] [place] [address] GFR >60.0 Normal >60 [facility] Comment on above: Result Comment: >60 mL/min/1.73m2 EGFR, calc. for ages 18 and older using the MDRD formula (not corrected for weight), is valid for stable renal function. Performed By: #### B MP #### [facility] [address] [place] [address] GFR/1.73 sq M.predicted among blacks MDRD (S/P/Bld) [Vol rate/Area] mL/min/{1.73_m2} Normal >60 [facility] Comment on above: Result Comment: >60 mL/min/1.73m2 EGFR, calc. for ages 18 and older using the MDRD formula (not corrected for weight), is valid for stable renal function. Performed By: #### B MP #### [facility] [address] [place] [address] Glucose [Mass/Vol] 96 mg/dL Normal 70-99 [facility] Comment on above: Performed By: #### B MP #### [facility] [address] [place] [address] Potassium [Moles/Vol] 3.8 mmol/L Normal 3.4-4.9 [facility] Comment on above: Performed By: #### B MP #### [facility] [address] [place] [address] Sodium [Moles/Vol] 139 mmol/L Normal 135-144 [facility] Comment on above: Performed By: #### B MP #### [facility] [address] [place] [address] Urea nitrogen [Mass/Vol] 13 mg/dL Normal 6-20 [facility] Comment on above: Performed By: #### B MP #### [facility] [address] [place] [address] CBC With Platelet No Differe ntialon 02-19-2021 Erythrocyte distribution width (RBC) [Ratio] 12.9 % Normal 11.5-14.5 [facility] Comment on above: Performed By: #### C BCND #### [facility] [address] [place] [address] Hematocrit (Bld) [Volume fraction] 45.5 % Normal 42.0-52.0 [facility] Comment on above: Performed By: #### C BCND #### [facility] [address] [place] [address] Hemoglobin (Bld) [Mass/Vol] 15.3 g/dL Normal 14.0-18.0 [facility] Comment on above: Performed By: #### C BCND #### [facility] [address] [place] [address] MCH (RBC) [Entitic mass] 28.7 pg Normal 27.0-31.3 [facility] Comment on above: Performed By: #### C BCND #### [facility] [address] [place] [address] MCHC 33.7 % Normal 33.0-37.0 [facility] Comment on above: Performed By: #### C BCND #### [facility] [address] [place] [address] MCV (RBC) [Entitic vol] 85.4 fL Normal 80.0-100.0 [facility] Comment on above: Performed By: #### C BCND #### [facility] [address] [place] [address] Platelets (Bld) [#/Vol] 259 10*3/uL Normal 130-400 [facility] Comment on above: Performed By: #### C BCND #### [facility] [address] [place] [address] RBC (Bld) [#/Vol] 5.33 10*6/uL Normal 4.70-6.10 [facility] Comment on above: Performed By: #### C BCND #### [facility] [address] [place] [address] WBC (Bld) [#/Vol] 6.2 10*3/uL Normal 4.8-10.8 [facility] Comment on above: Performed By: #### C BCND #### [facility] [address] [place] [address] Prothrombin Timeon INR Coag (PPP) [Relative time] 1.0 {INR} Normal [facility] Comment on above: Performed By: #### P T #### [facility] [address] [place] [address] PT Coag (PPP) [Time] 13.2 s Normal 12.3-14.9 [facility] Comment on above: Performed By: #### P T #### [facility] [address] [place] [address] Vital Signs Date Time Vital Sign Value Performing Clinician Facility 12-21-2023 08:13-040 Body temperature 97.5 [degF] Adam Navarro MD Work Phone: [facility] 12-21-2023 08:13-040 Diastolic blood pressure 80 mm[Hg] Adam Navarro MD Work Phone: [facility] 12-21-2023 08:13-0400 Heart rate 85 /min Adam Navarro MD Work Phone: [facility] 12-21-2023 08:13-0400 Respiratory rate 16 /min Adam Navarro MD Work Phone: [facility] 12-21-2023 08:13-0400 SaO2% (BldA) [Mass fraction] 97 % Adam Navarro MD Work Phone: [facility] 12-21-2023 08:13-0400 Systolic blood pressure 119 mm[Hg] Adam Navarro MD Work Phone: [facility] 12-11-2023 08:33-0400 Body height 180.3 cm Adam Navarro MD Work Phone: [facility] 12-11-2023 08:33-0400 Body mass index (BMI) [Ratio] 38.76 kg/m2 Adam Navarro MD Work Phone: [facility] 12-11-2023 08:33-0400 Body weight 126 kg Adam Navarro MD Work Phone: [facility] 11-30-2023 13:53-0400 Body height 180.3 cm Adam Navarro MD Work Phone: [facility] 11-30-2023 13:53-0400 Body mass index (BMI) [Ratio] 37.66 kg/m2 Adam Navarro MD Work Phone: [facility] 11-30-2023 13:53-0400 Body weight 122.47 kg Adam Navarro MD Work Phone: [facility] 09-19-2023 11:45-0500 Body height 182.88 cm Chantal Mart Other [facility] Other 09-19-2023 11:45-0500 Body mass index (BMI) [Ratio] 37.29 kg/m2 Chantal Mart Other [facility] Other 09-19-2023 11:45-0500 Body weight 124.74 kg Chantal Mart Other [facility] Other 09-19-2023 11:45-0500 Diastolic blood pressure 81 mm[Hg] Chantal Matr Other [facility] Other 09-19-2023 11:45-0500 Systolic blood pressure 121 mm[Hg] Chantal Mart Other [facility] Other 07-26-2023 10:45-0500 Body height 182.88 cm Chnatal Mart Other [facility] Other 07-26-2023 10:45-0500 Body mass index (BMI) [Ratio] 37.24 kg/m2 Chantal Mart Other [facility] Other 07-26-2023 10:45-0500 Body weight 124.56 kg Chantal Mart Other [facility] Other 07-26-2023 10:45-0500 Diastolic blood pressure 85 mm[Hg] Chantal Mart Other [facility] Other 07-26-2023 10:45-0500 Systolic blood pressure 122 mm[Hg] Chantal Mart Other [facility] Other 06-03-2023 15:00-0400 Body height 182.88 cm Chantal Mart Other [facility] Other 06-03-2023 15:00-0400 Body mass index (BMI) [Ratio] 37.81 kg/m2 Chantal Mart Other [facility] Other 06-03-2023 15:00-0400 Body temperature 98 [degF] Chantal Mart Other [facility] Other 06-03-2023 15:00-0400 Body weight 126.46 kg Chantal Mart Other [facility] Other 06-03-2023 15:00-0400 Diastolic blood pressure 76 mm[Hg] Chantal Mart Other [facility] Other 06-03-2023 15:00-0400 SaO2% (BldA) [Mass fraction] 98 % Chantal Mart Other [facility] Other 06-03-2023 15:00-0400 Systolic blood pressure 130 mm[Hg] Chantal Mart Other [facility] Other 02-11-2023 10:30-0400 Body height 182.88 cm Chantal Mart Other [facility] Other 02-11-2023 10:30-0400 Body mass index (BMI) [Ratio] 37.16 kg/m2 Chantal Mart Other [facility] Other 02-11-2023 10:30-0400 Body weight 124.29 kg Chantal Mart Other [facility] Other 02-11-2023 10:30-0400 Diastolic blood pressure 85 mm[Hg] Chantal Mart Other [facility] Other 02-11-2023 10:30-0400 Systolic blood pressure 124 mm[Hg] Chantal Mart Other [facility] Other 11-02-2022 16:15-0400 Body height 182.88 cm Austin Ball Other [facility] Other 11-02-2022 16:15-0400 Body mass index (BMI) [Ratio] 37.05 kg/m2 Austin Ball Other [facility] Other 11-02-2022 16:15-0400 Body weight 123.92 kg Austin Ball Other [facility] Other 11-02-2022 16:15-0400 Diastolic blood pressure 86 mm[Hg] Austin Ball Other [facility] Other 11-02-2022 16:15-0400 Respiratory rate 16 /min Austin Ball Other [facility] Other 11-02-2022 16:15-0400 Systolic blood pressure 136 mm[Hg] Austin Ball Other [facility] Other 10-27-2022 11:30-0400 Body height 182.88 cm Chantal Mart Other [facility] Other 10-27-2022 11:30-0400 Body mass index (BMI) [Ratio] 37.29 kg/m2 Chantal Mart Other [facility] Other 10-27-2022 11:30-0400 Body weight 124.74 kg Chantal Mart Other [facility] Other 10-27-2022 11:30-0400 Diastolic blood pressure 80 mm[Hg] Chantal Mart Other [facility] Other 10-27-2022 11:30-0400 SaO2% (BldA) [Mass fraction] 97 % Chantal Mart Other [facility] Other 10-27-2022 11:30-0400 Systolic blood pressure 132 mm[Hg] Chantal Mart Other [facility] Other 02-25-2021 14:30-0400 Diastolic blood pressure 90 mm[Hg] [place] [address] [facility] Phone: 02-25-2021 14:30-0400 Heart rate 79 /min [place] 1 [facility] Work Phone: 02-25-2021 14:30-0400 Respiratory rate 16 /min [place] 1 [facility] Phone: 02-25-2021 14:30-0400 SaO2% (BldA) [Mass fraction] 97 % [place] 1 [facility] Phone: 02-25-2021 14:30-0400 Systolic blood pressure 148 mm[Hg] [place] 1 [facility] Work Phone: 02-25-2021 10:43-0400 Body height 180.3 cm [place] 1 [facility] Phone: 02-25-2021 10:43-0400 Body mass index (BMI) [Ratio] 36.54 kg/m2 [place] 1 [facility] Phone: 02-25-2021 10:43-0400 Body weight 118.84 kg [place] 1 [facility] Phone: Encounters Encounter Date Encounter Type Care Provider Facility Start: 02-29-2024 End: 02[facility]29[facility] Start: 02-01-2024 End: 02-02-[address] [facility] Start: 12-28-2023 End: 12-28-2023 Postop follow up visit related to original px Adam Navarro MD Work Phone: [facility] Comment on above: Pelvic pain Start: 12-28-2023 End: 12-28-2023 Subsequent hospital visit by physician [place] [id number] X-Ray 3 [facility] Comment on above: Pelvic pain Start: 12-28-2023 End: 12-28-[address] [facility] Start: 12-08-2023 End: 12-21-2023 Evaluation and management of inpatient Adam Navarro MD Work Phone: [facility] Darrian [address] 6 Comment on above: Pelvic pain (Primary Dx); Acute postoperative pain Start: 11-30-2023 End: 11-30-2023 Office outpatient new 60 minutes Adam Navarro MD Work Phone: [facility] Comment on above: Pelvic pain (Primary Dx) Start: 11-30-2023 End: 11-30-2023 Subsequent hospital visit by physician Larry [id number] X-Ray 2 [facility] Comment on above: Pelvic pain Start: 11-30-2023 End: 12-01-[address] [facility] Start: 09-19-2023 End: 09-20-2023 ambulatory Portia Clark MD [facility] Other Start: 09-19-2023 Office outpatient vi sit 15 minutes Chantal Mart [facility] Start: 09-16-2023 End: 09-17-2023 Emergency department patient visit Mayela Vicente [place] Start: 08-22-2023 End: 08-23-2023 ambulatory Portia Clark MD Facility:[facility] Start: 08-17-2023 End: 08-17-2023 ambulatory Chantal Mart Other [facility] Other Start: 08-17-2023 Telephone encounter Chantal Mart [facility] Start: 07-26-2023 End: 07-26-2023 ambulatory Chantal Mart Other [facility] Other Start: 07-26-2023 Office outpatient vi sit 15 minutes Chantal Mart [facility] Start: 07-18-2023 End: 07-18-2023 ambulatory Chantal Mart Other [facility] Other Start: 07-18-2023 Telephone encounter Chantal Mart [facility] Start: 06-03-2023 End: 06-03-2023 ambulatory Chantal Mart Other [facility] Other Start: 06-03-2023 Office outpatient vi sit 15 minutes Chantal Mart [facility] Start: 05-27-2023 End: 05-27-2023 ambulatory Chantal Mart Other [facility] Other Start: 05-27-2023 Telephone encounter Chantal Mart [facility] Start: 02-11-2023 End: 02-11-2023 ambulatory Chantal Mart Other [facility] Other Start: 02-11-2023 Office outpatient vi sit 15 minutes Chantal Mart [facility] Start: 12-10-2022 Telephone encounter Chantal Mart [facility] Start: 12-10-2022 End: 12-11-[address] CHANTAL MART [facility] Other Start: 12-02-2022 (Televisit) Televisit Chantal Gonzalez [facility] Start: 12-02-2022 End: 12-02-2022 ambulatory Chantal Mart Other [facility] Other Start: 11-29-2022 End: 11-29-2022 ambulatory Kurtis Ptael Facility:[facility] Start: 11-02-2022 End: 11-02-2022 ambulatory Austin Barahona Other [facility] Other Start: 11-02-2022 Office outpatient vi sit 15 minutes [facility] Start: 10-29-2022 End: 10-29-2022 ambulatory Chantal Mart Other [facility] Other Start: 10-29-2022 Telephone encounter Chantal Mart [facility] Start: 10-27-2022 End: 10-27-2022 ambulatory Chantal Mart Other [facility] Other Start: 10-27-2022 Office outpatient vi sit 15 minutes Chantal Mart [facility] Start: 09-16-2022 End: 09-17-[address] ALLYSON [...] Start: 02-25-2021 End: 02-28-2021 ambulatory CHANTAL MART [facility] Start: 02-25-2021 End: 02-27-2021 Subsequent hospital visit by physician Shun Shah MD Work Phone: [facility] CT Scan Comment on above: Arrived [...] Phone: Start: 12-08-2023 ADMIT TO INPATIENT YAMILET NAVRARO Start: 12-08-2023 [place] FLUORO IMAGES NO CHARGE [...] SURGERY ADAM NAVARRO Start: 12-08-2023 FULL CODE ADMA CORTEZ Start: 11-30-2023 CASE REQUEST OPERATING ROOM ADAM NAVARRO Start: 11-30-2023 XR PELVIS 3+ VIEWS YAMILET NAVARRO Start: 02-25-2021 Ct lumbar spine w/co ntrast material Hamilton Hensley Jael DENTAL INSURANCE 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: Start: 02-25-2021 Injection procedure myelography/ct lumbar Hamilton Elder DENTAL INSURANCE 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: Plan of Treatment Date Care Activity Detail Author Start: 09-16-2033 DTaP/Tdap/Td Vaccine s (2 - Td or Tdap) DTaP/Tdap/Td Vaccines (2 - Td or Tdap) [facility] Start: 2025 Zoster Vaccines (1 o f 2) Zoster Vaccines (1 of 2) [facility] Start: 04-08-2024 Influenza vaccination Influenz a Vaccine (Season Ended) [facility] Start: 02-01-2024 End: 02-01-2024 Patient encounter procedure 02/01/2024 1:30 PM EDT Office Visit [facility] [address] [place] [address] [place] [id number] [place] [address] [facility] Start: 01-28-2024 End: 12-27-2024 XR Pelvis 3 Views XR pelvis 3+ views Imaging Routine Pelvic pain Expected: 01/28/2024, Expires: 12/27/2024 [facility] Work Phone: Comment on above: Expected: 01/28/2024 , Expires: 12/27/2024 Start: 12-28-2023 End: 12-26-2024 XR Pelvis 3 Views [facility] Service Area Work Phone: Comment on above: Expected: 12/28/2023 , Expires: 12/26/2024 Once for 1 Occurrenc es starting 12/28/2023 until 12/28/2023 Start: 12-08-2023 Subsequent hospital visit by physician 12/08/2023 Hospital Encounter [facility] [address] [place]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
[2024-05-14 08:42] VITALS: BP 139/87; PULSE 81; TEMP 37.4; O2SAT 96
[2024-05-14 09:28] VITALS: BP 149/100; PULSE 77; O2SAT 97
[2024-05-14 09:29] VITALS: BP 145/87; PULSE 75; O2SAT 97
[2024-05-14] MEDS: LIDOCAINE HCL 2% 400 MG/20 ML MDV INJ (09:32)
[2024-05-14] MEDS: BUPIVACAINE HCL 0.25% PF 25 MG/10 ML VIAL 4 ML INJ (09:32)
[2024-05-14] MEDS: IOHEXOL 240 MG/ML - 10 ML VIAL 12 MG INJ (09:32)
--- NOTE | 2024-05-14 09:32 | W.PM.PROCNOT ---
Date of procedure: 05/14/24 Pre-op diagnosis: Pain due to bilateral sacroiliitis Post-op diagnosis: same as pre-op Procedure: Procedure: Bilateral sacroiliac joint injection Medications: Bupivacaine 0.25% 3cc, kenalog 40mg x2 After informed consent was obtained, the patient was brought to the medical procedure unit and placed in the prone position, when a timeout was completed verifying correct patient, procedure, site, positioning, implant, and/or special equipment.? The skin overlying the area was prepped and draped in standard sterile fashion using alcohol.? A 25-gauge needle was inserted towards the left sacroiliac joint under direct fluoroscopic imaging.? Needle tip was advanced until the joint was encountered.? We instilled a total of 2 mL of solution.? The same procedure was then completed on the right side.? Postoperatively needles were removed.? The patient tolerated the procedure well without complication.? The patient reported reduction in pain symptoms postoperatively. Anesthesia: Local Surgeon: Portia Clark Pathology: none sent Condition: stable Disposition: no change
[2024-05-14] MEDS: TRIAMCINOLONE ACETONIDE 40 MG/ML VIAL 80 MG INJ (09:33)
== END 2024-05-14 09:33 | disposition home or self-care (01) ==
LOC: SURGOUT 07:51
PROVIDERS: PCP Family Medicine; Visit Provider Anesthesiology
DX: M46.1 Sacroiliitis, not elsewhere classified (principal)
CPT/HCPCS: 27096; J0665; J3301; Q9966

== ENCOUNTER 2024-05-21 13:43 | Outpatient (OUT) | payer BC, SELFPAY ==
--- NOTE | 2024-05-21 15:10 | PM.CN ---
Consult Note: HPI Data of Consult Patient: known to practice within the last 3 years Consult date: 05/21/24 Requesting Physician: Portia Clark MD Primary Care Provider: Jaymie Haas MD Consult Narrative Reason for consult: low back pain Narrative: 48yom who presents for assessment. notes moderate relief after his recent bilateral sacroiliac joint injection. continues to have muscle spasms throughout his low back. has had tpis in the past, with significant relief of >50% relief for >3 months. interested in repeating this. continues to use percocet and gabapentin. denies adverse med side effects. cc:: CC: Portia Clark MD Review of Systems ROS Status of ROS 10 or more systems reviewed and unremarkable except as noted in history and below [facility] Medical History Subdural hematoma ?S06.5XAA - Traumatic subdural hemorrhage with loss of consciousness status unknown, initial encounter (ICD-10) Osteoarthritis ?M19.90 - Unspecified osteoarthritis, unspecified site (ICD-10) Asthma ?J45.909 - Unspecified asthma, uncomplicated (ICD-10) HTN (hypertension) ?I10 - Essential (primary) hypertension (ICD-10) Social History Little interest or pleasure in doing things: not at all Feeling down, depressed, or hopeless: not at all Meds Home Medications and Allergies Home Medications ?Medication ?Instructions ?Recorded ?Confirmed ?Type albuterol sulfate 90 mcg/actuation 2 inh inhalation Q3H PRN shortness 03/22/23 05/14/24 History aerosol inhaler of breath or wheezing fluticasone propionate 110 2 inh inhalation BID 03/22/23 05/14/24 History mcg/actuation HFA aerosol inhaler lisinopril 20 mg tablet 20 mg PO DAILY 03/22/23 05/14/24 History metoprolol tartrate 25 mg tablet 25 mg PO DAILY 03/22/23 05/14/24 History simvastatin 20 mg tablet 20 mg PO DAILY 03/22/23 05/14/24 History sumatriptan succinate 50 mg tablet See Rx Instructions PO .COMPLEX 03/22/23 05/14/24 History gabapentin 300 mg capsule 300 mg PO BID 01/25/24 05/14/24 History diclofenac sodium 50 mg 50 mg PO BID PRN pain #60 tabs 02/29/24 05/14/24 Rx tablet,delayed release baclofen 10 mg tablet 10 mg PO TID PRN muscle spasm #90 04/26/24 05/14/24 Rx tabs oxycodone-acetaminophen 5 mg-325 1 tab PO TID PRN pain #90 tabs 04/26/24 05/14/24 Rx mg tablet (Percocet) famotidine 20 mg tablet (Pepcid) 20 mg PO BID #10 tabs 05/01/24 05/14/24 Rx pantoprazole 40 mg tablet,delayed 40 mg PO DAILY #30 tabs 05/01/24 05/14/24 Rx release (Protonix) Allergies Allergy/AdvReac Type Severity Reaction Status Date / Time nalbuphine (From Nubain) AdvReac Unknown Nausea Verified 05/14/24 08:40 Exam Narrative Exam Narrative: Psych-alert and oriented x 3. Attentive and appropriate, constitutionally normal, displays normal mood and affect per situation.? There are no obvious deficits in memory, reasoning, or intellect.? Skin-no obvious rashes, bruising, erythema noted to the patient's area of pain. Extremities- extremities are warm with minimal edema and palpable pulses. Lumbar- tenderness to palpation noted in the lumbar spine and paraspinal musculature.?Multiple trigger points expressed on palpation. Pain is elicited with extension, and lateral rotation of the lumbar spine. Range of motion is slightly diminished with these motions due to pain. Facet loading maneuvers are positive bilaterally and do appear to be concordant with the patient's normal complaints of pain.? Coordination remains intact.? Gait remains non-antalgic. Assessment and Plan Assessment and Plan (1) Lumbar spondylosis: (2) Myofascial pain dysfunction syndrome: (3) Lumbar stenosis with neurogenic claudication: Plan 48yom who presents for assessment. had good relief after recent bilateral sij injection. would like to repeat paralumbar tpis for his persistent muscle spasms. i am in agreement with this. he is also interested in spinal cord stimulation, given his history of back surgery and persistence of pain. provided him with information about this. meds reviewed, no changes. follow up in 1 month.
== END 2024-05-21 13:44 | disposition home or self-care (01) ==
LOC: PM 13:44
PROVIDERS: PCP Family Medicine; Visit Provider Anesthesiology
DX: M47.816 Spondylosis without myelopathy or radiculopathy, lumbar region (principal); M48.062 Spinal stenosis, lumbar region with neurogenic claudication; M79.18 Myalgia, other site
CPT/HCPCS: 20553; J0665; J3301

== ENCOUNTER 2024-06-08 12:56 | Outpatient (RCR) | payer BC, SELFPAY | END 2024-06-28 13:38 | disposition home or self-care (01) | LOC: PT 12:56 | PROVIDERS: PCP Family Medicine | DX: R10.2 Pelvic and perineal pain (principal) | CPT/HCPCS: 97110; 97161 ==

== ENCOUNTER 2024-06-19 15:07 | Outpatient (OUT) | payer BC, SELFPAY ==
[2024-06-20 06:09] LABS: HIV Ab/p24 Ag Screen Non Reactive (Non Reactive)
[2024-06-21 05:08] LABS: Neisseria gonorrhoeae, NAA Negative (Negative)
== END 2024-06-19 15:08 | disposition home or self-care (01) ==
PROVIDERS: PCP Family Medicine; Visit Provider Family Medicine
DX: Z11.3 Encounter for screening for infections with a predominantly sexual mode of transmission (principal)
CPT/HCPCS: 36415; 87389; 87491; 87591

== ENCOUNTER 2024-06-20 13:18 | Outpatient (OUT) | payer BC, SELFPAY ==
--- NOTE | 2024-06-20 14:09 | PM.CN ---
Consult Note: HPI Data of Consult Patient: known to practice within the last 3 years Consult date: 05/21/24 Requesting Physician: Cheryl Arango NP Primary Care Provider: Jaymie Haas MD Consult Narrative Reason for consult: low back pain Narrative: 48yom who presents for assessment. notes moderate relief after his recent bilateral sacroiliac joint injection. continues to have muscle spasms throughout his low back, responds well to TPIs and most recent injection providing moderate relief ongoing. continues to use diclofenac, baclofen, percocet and gabapentin. denies adverse med side effects. Pt has been engaged in working out and weight loss efforts, has noticed improvement in low back pain since last visit. Pain today 3-4/10, occasionally increasing to 8/10 with standing, walking, activity, sleep. Pain improved with sitting and lying. Prior CT of lumbar spine revealed facet arthropathy and lumbar DDD at L5-S1. No recent NS consult. Pt is interested in repeat RFAs as previous bilateral L2-3 L4-5 facet RFA provided >50% improvement greater than 6 months. At last OV pt expressed interest in spinal cord stimulation and is still interested in exploring this option. cc:: CC: Cheryl Arango NP Review of Systems ROS Status of ROS 10 or more systems reviewed and unremarkable except as noted in history and below Musculoskeletal Reports: back pain PFSH PFSH Medical History Subdural hematoma ?S06.5XAA - Traumatic subdural hemorrhage with loss of consciousness status unknown, initial encounter (ICD-10) Osteoarthritis ?M19.90 - Unspecified osteoarthritis, unspecified site (ICD-10) Asthma ?J45.909 - Unspecified asthma, uncomplicated (ICD-10) HTN (hypertension) ?I10 - Essential (primary) hypertension (ICD-10) Social History Little interest or pleasure in doing things: not at all Feeling down, depressed, or hopeless: not at all Meds Home Medications and Allergies Home Medications ?Medication ?Instructions ?Recorded ?Confirmed ?Type albuterol sulfate 90 mcg/actuation 2 inh inhalation Q3H PRN shortness 03/22/23 05/14/24 History aerosol inhaler of breath or wheezing fluticasone propionate 110 2 inh inhalation BID 03/22/23 05/14/24 History mcg/actuation HFA aerosol inhaler lisinopril 20 mg tablet 20 mg PO DAILY 03/22/23 05/14/24 History metoprolol tartrate 25 mg tablet 25 mg PO DAILY 03/22/23 05/14/24 History simvastatin 20 mg tablet 20 mg PO DAILY 03/22/23 05/14/24 History sumatriptan succinate 50 mg tablet See Rx Instructions PO .COMPLEX 03/22/23 05/14/24 History gabapentin 300 mg capsule 300 mg PO BID 01/25/24 05/14/24 History diclofenac sodium 50 mg 50 mg PO BID PRN pain #60 tabs 02/29/24 05/14/24 Rx tablet,delayed release baclofen 10 mg tablet 10 mg PO TID PRN muscle spasm #90 04/26/24 05/14/24 Rx tabs oxycodone-acetaminophen 5 mg-325 1 tab PO TID PRN pain #90 tabs 04/26/24 05/14/24 Rx mg tablet (Percocet) famotidine 20 mg tablet (Pepcid) 20 mg PO BID #10 tabs 05/01/24 05/14/24 Rx pantoprazole 40 mg tablet,delayed 40 mg PO DAILY #30 tabs 05/01/24 05/14/24 Rx release (Protonix) oxycodone-acetaminophen 5 mg-325 1 tab PO TID PRN pain #90 tabs 06/04/24 Rx mg tablet (Percocet) Allergies Allergy/AdvReac Type Severity Reaction Status Date / Time nalbuphine (From [facility]) AdvReac Unknown Nausea Verified 05/14/24 08:40 Exam Constitutional Documenting provider has reviewed patient's vital signs: yes Common normals: no apparent distress, oriented x3, healthy appearing, alert and well nourished General appearance: cooperative HENAK Common normals: normocephalic, hearing grossly normal bilaterally and moist oral mucous membranes Head and scalp: normocephalic Eye Common normals: PERRL Pupil: PERRL Neck & C-Spine Common normals: full ROM General: normal visual inspection Chest Common normals: inspection of chest normal Respiratory Common normals: normal respiratory effort, no retractions and no use of accessory muscles Back & Pelvis Lumbar spine/lower back: ROM limited, pain with ROM, paraspinal muscle tenderness and straight leg raise negative bilaterally; no lumbar spinal tenderness and no paraspinal muscle spasm Sacroiliac joints: SI joints normal Other: positive facet loading L2-S1 sensation intact BLE strength 5/5 in BLE negative bilateral ivy(patricks), gaenslens, thigh thrust, compression test Neuro Common normals: oriented x3, CN's II-XII intact bilaterally, moves all extremities, no focal motor deficits, no sensory deficits noted and deep tendon reflexes 2+ bilaterally Sensorium/orientation: alert Motor exam: strength 5/5 throughout and no movement abnormalities noted Psych Common normals: mental status grossly normal, thought process normal, cooperative, affect normal, speech normal and activity/motor behavior normal Speech: normal speech Thought process: normal thought process Assessment and Plan Assessment and Plan (1) Lumbar spondylosis: (2) Lumbar degenerative disc disease: (3) Chronic prescription opiate use: (4) Muscle spasm: (5) Sacroiliitis: (6) Chronic pain syndrome: Plan repeat bilateral L2-3 L4-5 facet RFA under fluoroscopy with IV sedation, risks vs benefits reviewed. previous RFAs provided >50% improvement in pain and functional ability greater than 6 months change gabapentin 600mg tabs 0.5-1 tab BID as tolerated continue HEP as tolerated refer to [facility] for consideration of surgical intervention vs spinal cord stimulation f/u 1 month after RFAs complete
== END 2024-06-20 13:19 | disposition home or self-care (01) ==
LOC: PM 13:19
PROVIDERS: PCP Family Medicine; Visit Provider Nurse Practitioner
DX: M47.816 Spondylosis without myelopathy or radiculopathy, lumbar region (principal); M51.369 Other intervertebral disc degeneration, lumbar region without mention of lumbar back pain or lower extremity pain; Z79.891 Long term (current) use of opiate analgesic; M62.838 Other muscle spasm; M46.1 Sacroiliitis, not elsewhere classified; G89.4 Chronic pain syndrome
CPT/HCPCS: G0463

== ENCOUNTER 2024-07-16 06:40 | Day surgery (SDC) | payer BC, SELFPAY ==
[2024-07-16 06:59] VITALS: BP 128/82; PULSE 92; TEMP 36.7; O2SAT 94
[2024-07-16] MEDS: 0.9 % SODIUM CHLORIDE 500 ML 50 ML IV (07:07)
[2024-07-16] MEDS: LIDOCAINE HCL 2% 400 MG/20 ML MDV 16 ML INJ (08:01)
[2024-07-16] MEDS: BUPIVACAINE HCL 0.25% PF 25 MG/10 ML VIAL 4 ML INJ (08:05)
[2024-07-16] MEDS: TRIAMCINOLONE ACETONIDE 40 MG/ML VIAL 80 MG INJ (08:06)
[2024-07-16 08:08] VITALS: BP 116/76; PULSE 75; TEMP 37; O2SAT 95
[2024-07-16 08:13] VITALS: BP 116/76; PULSE 77; O2SAT 95
--- NOTE | 2024-07-16 08:18 | P.ON_ITS ---
Date of procedure: 07/16/24 Pre-op diagnosis: Pain due to lumbar spondylosis without myelopathy Post-op diagnosis: same as pre-op Procedure: Procedure: Bilateral L2-3, L4-5 radiofrequency ablation Medications: Bupivacaine 0.25% 6cc, lidocaine 2% 6cc, kenalog 80mg The patient was seen and examined in the preoperative holding area.? The site was marked.? Written informed consent was obtained and placed on the chart.? The patient was brought to the medical procedure unit and placed in the prone position.? A timeout was completed verifying correct patient, procedure, positioning, and special requirements.? The skin overlying the target points, the designated medial branch, were prepped and draped in the usual sterile fashion.? The target point was achieved with a 20-gauge 15 cm with a 10 mm curved active tip radiofrequency cannula under direct fluoroscopic visualization.? The needle was inserted at level L2 on the right side. Needle tip position was confirmed with lateral fluoroscopic position.? Motor stimulation was carried out at 2 Hz up to 5 volts with the absence of extremity activity.? This was repeated at level L3, 4, 5 on right side.?? Sensory stimulation was carried out.? Concordant pain was realized at the above- mentioned sites.? Then radiofrequency lesioning was carried out times 90 seconds at 80 degrees times 2 lesions at each level.? The radiofrequency probe was removed prior to cannula removal.? The above-mentioned injectate was placed in 1 mL increments.? The needle was removed. The same procedure, with the same steps, was then completed on the left side at the same levels. Insertion sites were covered.? The patient was taken to the postoperative recovery area and monitored for an appropriate length of time before being found suitable for discharge in the company of a responsible adult. Anesthesia: MAC Surgeon: Portia Clark Pathology: none sent Condition: stable Disposition: no change
== END 2024-07-16 08:30 | disposition home or self-care (01) ==
LOC: SURGOUT 06:41
PROVIDERS: PCP Family Medicine; Visit Provider Anesthesiology
PROC: (CPT 1992; principal; 2024-07-16 07:40)
DX: M47.816 Spondylosis without myelopathy or radiculopathy, lumbar region (principal); E78.5 Hyperlipidemia, unspecified; I10 Essential (primary) hypertension; J45.909 Unspecified asthma, uncomplicated
CPT/HCPCS: 64635; 64636; J0665; J2704; J3301

== ENCOUNTER 2024-08-16 15:06 | Outpatient (OUT) | payer BC, SELFPAY ==
--- NOTE | 2024-08-16 15:38 | P.CN_ITS ---
Consult Note: HPI Data of Consult Patient: known to practice within the last 3 years Consult date: 05/21/24 Requesting Physician: Cheryl Arango NP Primary Care Provider: Jaymie Haas MD Consult Narrative Reason for consult: low back pain Narrative: 48yom who presents for assessment. notes moderate relief after his recent bilateral sacroiliac joint injection. continues to have muscle spasms throughout his low back, responds well to TPIs and most recent injection providing moderate relief ongoing. continues to use diclofenac, baclofen, percocet and gabapentin. denies adverse med side effects. Pt has been engaged in working out and weight loss efforts, has noticed improvement in low back pain since last visit. Pain today 4/10, occasionally increasing to 8/10 with standing, walking, activity, sleep. Pain improved with sitting and lying. Prior CT of lumbar spine revealed facet arthropathy and lumbar DDD at L5-S1. No recent NS consult. recent bilateral L2-3 L4-5 RFA providing no improvement per pt. continues to f/u with NS for consideration of spinal cord sitm vs NS intervention, pending CT myelogram. cc:: CC: Cheryl Arango NP Review of Systems ROS Status of ROS 10 or more systems reviewed and unremark able except as noted in history and below Musculoskeletal Reports: back pain and joint pain PFSH [facility] Medical History (Updated 07/12/24 @ 14:14 by Blanca Mary) Glenoid cavity and neck of scapula fracture ?S42.143A - Displaced fracture of glenoid cavity of scapula, unspecified shoulder, initial encounter for closed fracture (ICD-10) ?S42.153A - Displaced fracture of neck of scapula, unspecified shoulder, initial encounter for closed fracture (ICD-10) Pubic bone fracture ?S32.509A - Unspecified fracture of unspecified pubis, initial encounter for closed fracture (ICD-10) Subdural hematoma ?S06.5XAA - Traumatic subdural hemorrhage with loss of consciousness status unknown, initial encounter (ICD-10) Osteoarthritis ?M19.90 - Unspecified osteoarthritis, unspecified site (ICD-10) Asthma ?J45.909 - Unspecified asthma, uncomplicated (ICD-10) HTN (hypertension) ?I10 - Essential (primary) hypertension (ICD-10) Surgical History S/P correction of deviated nasal septum ?Z98.890 - Other specified postprocedural states (ICD-10) Social History Little interest or pleasure in doing things: not at all Feeling down, depressed, or hopeless: not at all Meds Home Medications and Allergies Home Medications ?Medication ?Instructions ?Recorded ?Confirmed ?Type albuterol sulfate 90 mcg/actuation 2 inh inhalation Q3H PRN shortness 03/22/23 07/16/24 History aerosol inhaler of breath or wheezing lisinopril 20 mg tablet 20 mg PO DAILY 03/22/23 07/16/24 History metoprolol tartrate 25 mg tablet 25 mg PO DAILY 03/22/23 07/16/24 History simvastatin 20 mg tablet 20 mg PO DAILY 03/22/23 07/16/24 History sumatriptan succinate 50 mg tablet See Rx Instructions PO .COMPLEX 03/22/23 07/16/24 History gabapentin 300 mg capsule 300 mg PO BID 01/25/24 07/16/24 History diclofenac sodium 50 mg 50 mg PO BID PRN pain #60 tabs 02/29/24 07/16/24 Rx tablet,delayed release baclofen 10 mg tablet 10 mg PO TID PRN muscle spasm #90 04/26/24 07/16/24 Rx tabs oxycodone-acetaminophen 5 mg-325 1 tab PO TID PRN pain #90 tabs 04/26/24 07/16/24 Rx mg tablet (Percocet) naloxone 4 mg/actuation nasal 4 mg intranasal Q3M PRN opioid 07/04/24 07/16/24 Rx spray (Narcan) overdose #2 ea baclofen 10 mg tablet 10 mg PO TID #90 tabs 07/30/24 Rx diclofenac sodium 50 mg 50 mg PO BID #60 tabs 07/30/24 Rx tablet,delayed release gabapentin 600 mg tablet 600 mg PO BID #60 tabs 07/30/24 Rx oxycodone-acetaminophen 5 mg-325 1 tab PO TID PRN pain #90 tabs 07/30/24 Rx mg tablet (Percocet) Allergies Allergy/AdvReac Type Severity Reaction Status Date / Time nalbuphine (From [facility]) AdvReac Unknown Nausea Verified 12/09/24 07:08 Exam Constitutional Documenting provider has reviewed patient's vital signs: yes Common normals: no apparent distress, oriented x3, healthy appearing, alert and well nourished General appearance: cooperative HENMT Common normals: normocephalic, hearing grossly normal bilaterally and moist oral mucous membranes Head and scalp: normocephalic Eye Common normals: PERRL Pupil: PERRL Neck & C-Spine Common normals: full ROM General: normal visual inspection Chest Common normals: inspection of chest normal Respiratory Common normals: normal respiratory effort, no retractions and no use of accessory muscles Back & Pelvis Lumbar spine/lower back: ROM limited, pain with ROM, paraspinal muscle tenderness and straight leg raise negative bilaterally; no lumbar spinal tenderness and no paraspinal muscle spasm Sacroiliac joints: SI joints normal Other: positive facet loading L2-S1 sensation intact BLE strength 5/5 in BLE negative bilateral ivy(patricks), gaenslens, thigh thrust, compression test Neuro Common normals: oriented x3, CN's II-XII intact bilaterally, moves all extremities, no focal motor deficits, no sensory deficits noted and deep tendon reflexes 2+ bilaterally Sensorium/orientation: alert Motor exam: strength 5/5 throughout and no movement abnormalities noted Psych Common normals: mental status grossly normal, thought process normal, cooperative, affect normal, speech normal and activity/motor behavior normal Speech: normal speech Thought process: normal thought process Assessment and Plan Assessment and Plan (1) Lumbar spondylosis: (2) Lumbar degenerative disc disease: (3) Chronic prescription opiate use: (4) Muscle spasm: (5) Sacroiliitis: (6) Chronic pain syndrome: Plan continue gabapentin 600mg tabs 0.5-1 tab BID as tolerated continue HEP as tolerated continue f/u with [facility]oco for consideration of surgical intervention vs spinal cord stimulation f/u based on NS recommendations
== END 2024-08-16 15:07 | disposition home or self-care (01) ==
LOC: PM 15:06
PROVIDERS: PCP Family Medicine; Visit Provider Nurse Practitioner
DX: M47.816 Spondylosis without myelopathy or radiculopathy, lumbar region (principal); M51.369 Other intervertebral disc degeneration, lumbar region without mention of lumbar back pain or lower extremity pain; Z79.891 Long term (current) use of opiate analgesic; M62.838 Other muscle spasm; M46.1 Sacroiliitis, not elsewhere classified; G89.4 Chronic pain syndrome
CPT/HCPCS: G0463

== ENCOUNTER 2024-08-29 08:16 | Day surgery (SDC) | payer BC, SELFPAY ==
--- NOTE | 2024-08-29 08:19 | CT_ITS ---
[address] [address] Patient Name: SUSHILA YATES MRN: [id number] date: 1975 Sex: M Assigned Patient Location: [place] Current Patient Location: Accession/Order Number: [id number] Exam Date: 08/29/2024 09:27 Report Date: 08/29/2024 12:52 At the request of: NON-STAFF PHYSICIAN Procedure: CT lumbar spine w con EXAMINATION: CT lumbar spine w con HISTORY: Back Pain ; chronic thoracic and lumbar pain. COMPARISON: No relevant comparison available. TECHNIQUE: Axial, Coronal, and Sagittal images were created without IV contrast. Dose reduction techniques were achieved by using automated exposure control and/or adjustment of mA and/or kV according to patient size and/or use of iterative reconstruction technique. FINDINGS: VERTEBRAL BODIES: No fracture, pars defect, or osseous lesion. FACET JOINTS: Minimal degenerative facet arthropathy. No disruption or abnormal widening. DISCS: Mild diffuse disc bulging L2-3 through L5-S1. Mild-moderate disc height reduction L5-S1. Mild foramen narrowing L3-4. Moderate L4-5 foramen narrowing on the right. Moderate-marked foramen narrowing at L5-S1 bilaterally. CENTRAL CANAL: No stenosis or evidence of hemorrhage. PARASPINAL AREA: Prior mechanical fusion of the sacroiliac joints. CT/CT lumbar spine w con IMPRESSION: 1. No appreciable acute abnormality. 2. L5-S1 moderate degenerative disc disease with moderate-marked foramen narrowing bilaterally. 3. Multilevel mild degenerative disc disease and mild foraminal narrowing. 4. No appreciable central canal stenosis. Electronically authenticated by: ROBERT RAI Date: 08/29/2024 12:52
--- NOTE | 2024-08-29 08:20 | FL_ITS ---
The [address] [address] Patient Name: SUSHILA YATES MRN: [id number] date: 1975 Sex: M Assigned Patient Location: [place] Current Patient Location: [place] Accession/Order Number: [id number] Exam Date: 08/29/2024 09:00 Report Date: 08/29/2024 10:28 At the request of: NON-STAFF PHYSICIAN Procedure: FL Myelogram inj procedure EXAMINATION: FL Myelogram inj procedure, FL Myelogram needle placement HISTORY: Back Pain COMPARISON: No relevant comparison available. FLUOROSCOPY TIME: Fluoro time measures 42.1 seconds and 5 images were obtained. TECHNIQUE: After obtaining the patient's informed consent, a lumbar myelogram was performed in the usual sterile manner via lumbar puncture at the L4-5 level. Standard level fluoroscopic mode of operation utilized. FINDINGS: PARASPINAL AREA: Normal appreciable abnormality. BONES: Degenerative changes. CENTRAL CANAL: Normal caliber and contour. The conus terminates at a normal level. FL/FL Myelogram inj procedure IMPRESSION: 1. Technically successful lumbar myelogram injection. Electronically authenticated by: ROBERT RAI Date: 08/29/2024 10:28
--- NOTE | 2024-08-29 08:20 | FL_ITS ---
The [address] [address] Patient Name: SUSHILA YATES MRN: [id number] date: 1975 Sex: M Assigned Patient Location: [place] Current Patient Location: [place] Accession/Order Number: [id number] Exam Date: 08/29/2024 09:00 Report Date: 08/29/2024 10:28 At the request of: NON-STAFF PHYSICIAN Procedure: FL Myelogram needle placement EXAMINATION: FL Myelogram inj procedure, FL Myelogram needle placement HISTORY: Back Pain COMPARISON: No relevant comparison available. FLUOROSCOPY TIME: Fluoro time measures 42.1 seconds and 5 images were obtained. TECHNIQUE: After obtaining the patient's informed consent, a lumbar myelogram was performed in the usual sterile manner via lumbar puncture at the L4-5 level. Standard level fluoroscopic mode of operation utilized. FINDINGS: PARASPINAL AREA: Normal appreciable abnormality. BONES: Degenerative changes. CENTRAL CANAL: Normal caliber and contour. The conus terminates at a normal level. FL/FL Myelogram needle placement IMPRESSION: 1. Technically successful lumbar myelogram injection. Electronically authenticated by: ROBERT RAI Date: 08/29/2024 10:28
--- NOTE | 2024-08-29 08:21 | CT_ITS ---
[address] [address] Patient Name: SUSHILA YATES MRN: [id number] date: 1975 Sex: M Assigned Patient Location: [place] Current Patient Location: [place] Accession/Order Number: [id number] Exam Date: 08/29/2024 09:27 Report Date: 08/29/2024 14:07 At the request of: NON-STAFF PHYSICIAN Procedure: CT thoracic spine w con EXAMINATION: CT thoracic spine w con HISTORY: Back Pain ; chronic thoracic and lumbar pain COMPARISON: CT chest abdomen pelvis 09/16/2023 TECHNIQUE: Axial, Coronal, and Sagittal images were created without IV contrast. Dose reduction techniques were achieved by using automated exposure control and/or adjustment of mA and/or kV according to patient size and/or use of iterative reconstruction technique. FINDINGS: VERTEBRAL BODIES: Mild right convex curvature of thoracic spine. No fracture, spondylolisthesis, or bone lesion. FACET JOINTS: Minimal degenerative facet arthropathy. No disruption or abnormal widening. DISCS: Mild degenerative changes of several midthoracic levels. No significant disc bulging, central canal narrowing, or significant foraminal stenosis. CENTRAL CANAL: No evidence of hemorrhage. PARASPINAL AREA: No visible mass. CT/CT thoracic spine w con IMPRESSION: 1. No acute bone abnormality. 2. Minimal degenerative changes. 3. Mild right convex curvature of thoracic spine which appears to be chronic. Electronically authenticated by: ROBERT RAI Date: 08/29/2024 14:07
[2024-08-29 08:30] VITALS: BP 136/81; TEMP 37.1; O2SAT 96
[2024-08-29] MEDS: LIDOCAINE HCL 10 ML, SODIUM BICARBONATE 1 MEQ INJ (09:05)
[2024-08-29 09:45] VITALS: BP 120/81; PULSE 55; O2SAT 95
[2024-08-29 10:00] VITALS: BP 121/84; PULSE 71; O2SAT 96
--- NOTE | 2024-08-29 10:14 | SUR.PREOP ---
08/15/24 Per Brian pt instructed on procedure, date, time,and prep. 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
[2024-08-29 10:15] VITALS: BP 126/89; PULSE 62; O2SAT 97
[2024-08-29 10:30] VITALS: BP 135/85; PULSE 67; O2SAT 98
--- NOTE | 2024-08-29 11:10 | PC.NURSE ---
0920 Pt taken by cart to CT. Pt rolled twice prior to CT to circulate contrast . 0945 CT completed and pt taken by cart to holding area. HOB at 30 degrees. Siderails up x 2. Call light in reach. Pt denies any c/o back pain right now. Bandaid dry and intact. Pt ordered 2 beverages but declined any food at this time. 1000 Pt denies any complaints. Drinking orange juice and coffee. 1020 Pt denies any complaints. Watching TV. Dr Liriano out to talk with pt. Approves of discharge to home at 1045.
== END 2024-08-29 11:00 | disposition home or self-care (01) ==
LOC: FL 08:16
PROVIDERS: Radiology Diagnostic Radiology; PCP Family Medicine
DX: M54.9 Dorsalgia, unspecified (principal); M51.34 Other intervertebral disc degeneration, thoracic region; R51.9 Headache, unspecified; M51.369 Other intervertebral disc degeneration, lumbar region without mention of lumbar back pain or lower extremity pain; M51.379 Other intervertebral disc degeneration, lumbosacral region without mention of lumbar back pain or lower extremity pain
CPT/HCPCS: 36415; 62284; 72129; 72132; 77003; 80048; 85025; 96365; 96375; 96376; 99284; J0706; J1171; J2270; J2405; Q9966

== ENCOUNTER 2024-08-29 21:15 | Emergency (ER) | payer BC, SELFPAY ==
[2024-08-29 21:18] VITALS: BP 157/93; PULSE 113; TEMP 36.8; O2SAT 98; BMI 31.7
--- OUTSIDE RECORDS SUMMARY | 2024-08-29 21:22 | XMS_ITS | CCD ---
Author Organization [facility] Care Team Providers Care Egg Caser Name Role Phone Chantal Mart MD Primary Care Provider [phone] HAMILTON ELDER Referring Unavailable CHANTAL MART Primary Care Unavailable CHANTAL MART Primary Care Unavailable HAMILTON ELDER Referring Unavailable Chantal Mart Unavailable Austin Barahona Unavailable SCARLETT ., DR ALLYSON Marrero Attending Unavailable PANTOJA ., DR ALLYSON Marrero Admitting Unavailable MA ., HANNA Consulting Unavailable BARRON, DR CHANTAL Gonzalez Primary Care Unavailable BARRON, DR CHANTAL Gonzalez Primary Care Unavailable LAKSHMIPATHY ., SANDY Admitting Ginger vailable LAKSHMIPATHY ., SANDY Attending Ginger vailable PANTOJA ., DR ALLYSON Marrero Admitting Unavailable PANTOJA ., DR ALLYSON Marrero Consulting Unavailable PANTOJA ., DR ALLYSON Marrero Attending Unavailable MART, DR CHANTAL Gonzalez Primary Care Unavailable PANTOJA ., DR ALLYSON Marrero Admitting Unavailable PANTOJA ., DR ALLYSON Marrero Attending Unavailable FRANCESCA ., HANNA Consulting Unavailable BARRON, DR CHANTAL Gonzalez Primary Care Unavailable SCARLETT ., DR ALLYSON Marrero Admitting Unavailable PANTOJA ., DR ALLYSON Marrero Consulting Unavailable PANTOJA ., DR ALLYSON Marrero Attending Unavailable BARRON, DR CHANTAL Gonzalez Primary Care Unavailable MA ., HANNA Attending Unavailable MA ., HANNA Admitting Unavailable BARRON, DR CHANTAL Gonzalez Primary Care Unavailable DR ROBERT RAI Consulting Unavailable MA ., HANNA Consulting Unavailable BARRON, DR CHANTAL Gonzalez Consulting Unavailable BARRON, DR CHANTAL Gonzalez Attending Unavailable BARRON, DR CHANTAL Gonzalez Admitting Unavailable BARRON, DR CHANTAL Gonzalez Primary Care Unavailable BARRON, DR CHANTAL Gonzalez Primary Care Unavailable BARRON, DR CHANTAL Gonzalez Consulting Unavailable BARRON, DR CHANTAL Gonzalez Attending Unavailable MART, DR CHANTAL Gonzalez Admitting Unavailable ALFONZO FERNANDEZ Consulting Unavailable BARRON, DR CHANTAL Gonzalez Primary Care Unavailable MART, DR CHANTAL Gonzalez Consulting Unavailable MART, DR CHANTAL Gonzalez Attending Unavailable BARRON, DR CHANTAL Gonzalez Admitting Unavailable PANTOJA ., DR ALLYSON Marrero Attending Unavailable PANTOJA ., DR ALLYSON Marrero Admitting Unavailable MA ., HANNA Consulting Unavailable BARRON, DR CHANTAL Gonzalez Primary Care Unavailable PANTOJA ., DR ALLYSON Marrero Attending Unavailable PANTOJA ., DR ALLYSON Marrero Admitting Unavailable MA ., HANNA Consulting Unavailable MART, DR CHANTAL Gonzalez Primary Care Unavailable MART, DR CHANTAL Gonzalez Primary Care Unavailable PANTOJA ., DR ALLYSON Marrero Attending Unavailable PANTOJA ., DR ALLYSON Marrero Admitting Unavailable MA ., HANNA Consulting Unavailable Unavailable Primary Care Provider UnavailMayela Sy Attending Unavailable Chantal Mart MD Primary Care Provider NAPORA, ADAM K Attending Unavailable CHANTAL MART Primary Care Unavailable SHANICEORAMARCO ANTONIOADAM K Attending Unavailable CHANTAL MART E Primary Care Unavailable NAPORAMARCO ANTONIOADAM K Attending Unavailable NAPORA, ADAM K Referring Unavailable NAPORA, ADAM K Admitting Unavailable NAPORA ADAM K Attending Unavailable CHANTAL MART Primary Care Unavailable NAPORA, ADAM K Referring Unavailable MARTCHANTAL Primary Care Unavailable NAPORA, ADAM K Referring Unavailable MARTCHANTAL E Primary Care Unavailable NAPORA, ADAM K Referring Unavailable CHANTAL MART Primary Care Unavailable NAPORA, ADAM K Attending Unavailable CHANTAL MART E Primary Care Unavailable NAPORA, ADAM K Referring Unavailable CHANTAL MART E Primary Care Unavailable Amber ARENAS, Andrius Garcia Attending Unavailable Giluisraitis , Andrius Vytautlinda Attending Unavailable Gikeshaitis , Andrius Vytautas Attending Unavailable Gikeshaitis , Andrius Vytautas Attending Unavailable Gikeshaitis , Andrius Vytautlinda Attending Unavailable Chantal Mart Attending Unavailable Chantal Mart E Primary Care Unavailable Chantal Mart Admitting Unavailable CYNDI, BURT Referring Unavailable CYNDI, BURT Referring Unavailable CYNDI, BURT Attending Unavailable Allergies Allergy Classification Reported Allergen(s) Allergy Type Date of Onset Reaction(s) Facility Nalbuphine (2 sources) Nalbuphine Drug Allergy 7 [facility] Opioid Agonists (2 sources) traMADol Drug Allergy 1 Nausea And Vomiting [facility] (15 sources) Nalbuphine; Translations: [Nubain] Drug Allergy 7 BP dropped [facility] Repository (15 sources) traMADol; Translations: [TRAMADOL] Drug Allergy 6 Nausea And Vomiting, [facility] Other (6 sources) Nubain *ANALGESICS - OPIOID* Propensity to adverse reactions [facility] Other (3 sources) Allergies Reconciled Propensity to adverse reactions [facility] Other (3 sources) patient allergy list reviewed by nurse or physicia Propensity to adverse reactions 9 Comment:Done [facility] Other (12 sources) Nalbuphine; Translations: [NALBUPHINE] Drug Allergy 7 [facility] (1 source) No Known Medication Allergies; Translations: [No Known Medication Allergies] Propensity to adverse reactions (disorder) [facility] Repository (1 source) Nalbuphine Drug Allergy 4 [facility] Repository (1 source) traMADol Drug Allergy 4 [facility] Repository (1 source) ALLERGIES NOT ON FILE; Translations: [ALLERGIES NOT ON FILE] Propensity to adverse reactions (disorder) [facility] Repository Medications Current Medications Medication Drug Class(es) Dates Sig (Normalized) Sig (Original) acetaminophen 325 mg oral tablet (8 sources) Start: 12-14-2023 take 2 tablets by [...] as needed Orally every 6 hrs Active [id number] 200 actuat albuterol 0.09 mg/actuat metered dose [...] 2 times d aily, First dose on Tata 12/08/23 at 2100 azithromycin 250 mg oral tablet [...] Active cetirizine hydrochloride 10 mg oral tablet (7 sources) Histamine-1 Receptor Antagonist take 1 tablet by mouth every twelve hours cetirizine (ZyrTEC) 10 mg tablet Take 1 tablet (10 mg) by mouth every 12 hours. Active cholecalciferol 0.025 mg oral tablet (8 sources) Vitamin D Start: 12-08-2023 take 5000 [IU] by mouth once daily 5,000 Units, oral, Daily, First dose on Tata 12/08/23 at 2100 take 1 tablet by mouth once zuleima y cholecalciferol (Vitamin D-3) 5,000 Units tablet Take 1 tablet (5,000 Units) by mouth once daily. Active cyclobenzaprine hydrochloride 10 mg oral tablet (20 sources) Muscle Relaxant Start: 12-14-2023 take 1 [...] (Therapy completed) take 2 tablets by mo uth once daily at bedtime Cyclobenzaprine HCl 10 MG 2 tabs @ HS Orally Once a day Active diclofenac sodium 50 mg delayed release oral tablet (20 sources) Nonsteroidal Anti-inflammatory Drug take 1 tablet [...] replace cap. gabapentin 300 mg oral capsule (11 sources) Anti-epileptic Agent Start: 10-27-2023 take 1 capsule by mouth once daily at bedtime gabapentin (Neurontin) 300 mg capsule Take 1 capsule (300 mg) by mouth once daily at bedtime. 10/27/2023 Active Start: 01-30-2021 End: 02-27-2021 gabapentin (NEURONTIN) 100 M G capsule TAKE 2 PILLS THREE TIMES PER DAY 180 capsule 0 01/30/2021 02/27/2021 Discontinued (REORDER) glucosamine/chondr langford A sod (OSTEO BI-FLEX ORAL) (7 sources) take 1 tablet by mouth twice [...] of dose. lisinopril 20 mg oral tablet (20 sources) Angiotensin Converting Enzyme Inhibitor take 1 [...] 2145 magnesium oxide 500 mg oral tablet (9 sources) Start: 04-24-2023 take 1 tablet by mouth once daily [...] succinate 25 mg extended release oral tablet (20 sources) beta-Adrenergic [place] Start: 11-15-2023 take 1 tablet by mouth once daily metoprolol succinate XL (Toprol-XL) 25 mg 24 hr tablet Take 1 tablet (25 mg) by mouth once daily. 11/15/2023 Active take 1 tablet by mouth once zuleima y Metoprolol Succinate ER 25 MG TAKE 1 TABLET BY MOUTH EVERY DAY for 90 Active multivitamin tablet (7 sources) take 1 tablet by mouth once daily multivitamin tablet Take 1 tablet by mouth once daily. Active ondansetron 4 mg oral tablet (8 sources) Serotonin-3 Receptor Antagonist Start: ondansetron (Zofran) [...] out after 15 seconds. polyethylene glycol 3350 91099 mg powder for oral solution (1 source) [...] line, Starting on Tue12/11/23 at 2110 sennosides, alf 8.6 mg oral tablet (1 source) Start: 12-08-2023 take 1 tablet by mouth once daily 8.6 mg (1 tablet), oral, Nightly, First dose on Tata 12/08/23 at 2100 simethicone 80 mg chewable tablet [...] at 1350 tiZANidine 4 mg oral tablet (9 sources) Central alpha-2 Adrenergic Agonist Start: 11-20-2020 take 1 tablet by mouth three times daily as needed tiZANidine (ZANAFLEX) 4 MG tablet TAKE 1 TABLET BY MOUTH 3 TIMES A DAY NEEDED 0 11/20/2020 Active traZODone hydrochloride 50 mg oral tablet (12 sources) Serotonin Reuptake Inhibitor Start: 07-26-2023 take [...] source) Start: 12-08-2023 End: 12-08-2023 inhalation, Continuous - , First dose on Tue12/08/23 at 1500, Recovery (only), Device: Nasal Cannula, Rate in liters per minute: 2 LPM, Keep O2 Sat Above: 92% Problems Active Problems Problem Classification Problem Date Documented Date Episodic/Chronic Acute bronchitis (1 source) Acute bronchitis, unspecified Episodic Anxiety disorders (14 sources) Generalized anxiety disorder; Translations: [Generalized anxiety disorder] Onset: 08-02-2018 Chronic Asthma (19 sources) Reactive airways dysfunction syndrome; Translations: [Unspecified asthma, uncomplicated] Onset: 12-08-2023 12-08-2023 Chronic Chronic obstructive pulmonary disease and bronchiectasis (3 sources) Acute exacerbation of chronic asthmatic bronchitis; Translations: [Chronic obstructive asthma, with (acute) exacerbation] Onset: 10-29-2016 Chronic Chronic obstructive pulmonary disease and bronchiectasis (4 sources) Bronchitis, not specified as acute or chronic; Translations: [BRONCHITIS NOT SPEC ACUTE/CHRON] Onset: 12-10-2022 Episodic Complication of device; implant or graft (2 sources) Fracture of pelvis following insertion of orthopedic implant, joint prosthesis, or bone plate; Translations: [Fracture of pelvis following insertion of orthopedic implant, joint prosthesis, or bone plate] Onset: 05-23-2024 Episodic Conditions associated with dizziness or vertigo (1 source) Benign paroxysmal vertigo, left ear Episodic Disorders of lipid metabolism (20 sources) Hyperlipidemia; Translations: [Hyperlipidemia, unspecified] Onset: 12-08-2023 12-08-2023 Chronic Essential hypertension (13 sources) Benign essential hypertension; Translations: [Essential hypertension, [...] Translations: [Noninfective gastroenteritis and colitis, unspecified] Episodic Nonspecific chest pain (1 source) Chest pain, unspecified; Translations: [Chest pain, unspecified] Onset: 07-09-2024 Episodic Osteoarthritis (1 source) Unilateral primary osteoarthritis, [...] [OTHER MUSCLE SPASM] Onset: 06-24-2022 Episodic Other fractures (2 sources) Fracture of unspecified parts of lumbosacral spine and pelvis, subsequent encounter for fracture with routine healing; Translations: [Fracture of unspecified parts of lumbosacral spine and pelvis, subsequent encounter for fracture with routine healing] Onset: 05-23-2024 Episodic Other injuries and conditions due to external causes (3 sources) Injury of left lower leg; Translations: [Unspecified injury of left lower leg, initial encounter] Episodic Other nervous system disorders (1 source) Other chronic pain; Translations: [OTHER CHRONIC PAIN] Onset: 06-02-2022 Chronic Other nervous system disorders (1 source) Acute postoperative pain; Translations: [Other acute postprocedural pain] 12-14-2023 Episodic Other non-traumatic joint disorders (18 sources) [...] Chronic Other nutritional; endocrine; and metabolic disorders (10 sources) Obesity; Translations: [Obesity, unspecified] Onset: 12-08-2023 [...] media, right ear] Episodic Residual codes; unclassified (3 sources) Family [...] [Syncope and collapse] Onset: 03-31-2022 Episodic Unclassified (4 sources) LOW BACK PAIN, UNSPECIFIED; Translations: [LOW BACK PAIN, UNSPECIFIED] Onset: 06-02-2022 Unclassified (3 sources) History of disease caused by Severe acute respiratory syndrome coronavirus 2 (situation); Translations: [Personal history of COVID-19] Viral infection (1 source) Viral infection, unspecified Episodic Viral infection (3 sources) Disease caused by 2019-nCoV; Translations: [COVID-19] Past or Other Problems Problem Classification Problem Date Documented Date Episodic/Chronic Abdominal pain (20 sources) Generalized abdominal pain; Translations: [Generalized abdominal pain] Onset: 05-01-2014 11-30-2023 Episodic Allergic reactions (3 sources) Contact dermatitis; Translations: [...] Episodic Immunizations and screening for infectious disease (11 sources) Contact with or exposure to other [...] Translations: [Cough, unspecified] Onset: 12-04-2015 Episodic Other male genital disorders (9 sources) Pain in scrotum ; Translations: [Scrotal pain] Onset: 11-30-2023 11-30-2023 Episodic Other nervous system disorders (2 sources) Other acute postprocedural pain; Translations: [Other acute postprocedural pain] Onset: 12-08-2023 Episodic Other non-traumatic joint disorders (4 sources) Pain in left hip; Translations: [PAIN IN LEFT HIP] Onset: 04-20-2022 Episodic Other non-traumatic joint disorders (3 sources) Arthralgia of the ankle and/or foot; Translations: [Pain in joint, ankle and foot] Onset: 05-03-2016 Episodic Other non-traumatic joint disorders (9 sources) Hip pain; Translations: [Pain in right hip] Onset: 11-30-2023 11-30-2023 Episodic Residual codes; unclassified (3 sources) Family [...] Test Name Value Interpretation Reference Range Facility Consulton 08-07-2024 Consult [id number] Prosper Milian 1975 M Date Provider Department Center 08/07/[address] [facility] SURG [place] Fl Family History Problem Relation Age of Onset Cancer Father Cancer Paternal Grandfather Family Status - Relation Status Age at Father Paternal Grandfather Level of Service:74057 [place] OFFICE/OP CONSLTJ NEW/EST PT MOD MDM 40 MINUTES Reason for Visit and Comments: Consult [484] Normal [facility] NM beba perf SPECT rest stron 07-10-2024 NM beba perf SPECT rest str [facility] [place] [address] Nuclear Medicine Report Signed Patient: Prosper Milian MR#: [id number] 6 : 1975 Acct:[id number] Age/Sex: 48 / M ADM Date: 07/09/24 Loc: Room: Type: [facility] Attending Dr: Chantal Mart MD Copies to: MD Chantal Belcher MD Ordering Provider: Chantal Mart MD Date of Service: 07/09/24 NM/NM beba perf SPECT rest str: Chest pain NUCLEAR MYOCARDIAL PERFUSION DATE OF PROCEDURE: 07/10/24 PROCEDURE: The patient achieved a workload of 10.7 METs. During the last one minute of exercise, the patient was then injected with 28.6 millicuries of Technetium 99M Sestamibi one minute before the end of the exercise. For rest images the patient was injected with 29.3 millicuries of Technetium 99M Sestamibi. FINDINGS: The raw cine images were reviewed. The post stress and rest perfusion images were reviewed as well as the computer quantification.? There was uniform uptake of the radiotracer with no perfusion defects identified.? On the gated portion of the study, there was uniform thickening with an overall ejection fraction calculated at 64%.? TID score was within normal limits. CONCLUSION: 1. Gated spect Sestamibi study is within normal limits. 2. Left ventricular function was preserved. Impression dictated by: Evelyn Macdonald M.D.07/10/2024 2:38 PM Dictation Location: [place] [address] Transcribed By: [facility] 07/10/24 143 Dictated By: Evelyn Macdonald MD 07/10/24 143 Signed By: 07/10/24 143 Normal [facility] XR PELVIS 3+ VIEWSon 024 XR PELVIS 3+ VIEWS Interpreted By: Cesar Solomon, STUDY: XR PELVIS 3+ VIEWS; ; 05/23/2024 1:18 pm INDICATION: Signs/Symptoms:pelvi s fracture. ,R10.2 Pelvic and perineal pain COMPARISON: 02/29/2024 ACCESSION NUMBER(S): [id number] ORDERING CLINICIAN: ADAM NAVARRO FINDINGS: Pelvis, five views Postsurgical changes in the pelvis with screw fixation through the sacrum and the plate and screw fixation of the pubic symphysis. No acute fracture seen. Mild degenerative change of the hips IMPRESSION: Postsurgical change about the pelvis without hardware failure. MACRO: None Signed by: Cesar Solomon 05/24/2024 7:08 AM Dictation workstation: [id number] [facility] Comment on above: Order Comment: 5 vie w of the pelvis XR PELVIS 3+ VIEWSon 024 XR PELVIS 3+ VIEWS Interpreted By: Cesar Solomon, STUDY: XR PELVIS 3+ VIEWS; ; 02/29/2024 12:59 pm INDICATION: Signs/Symptoms:pelvi s fracture. COMPARISON: 02/01/2020 ACCESSION NUMBER(S): [id number] ORDERING CLINICIAN: ADAM NAVARRO FINDINGS: Pelvis, five views Postsurgical changes in the sacrum and the pubic symphysis with screws and plate and screw fixation respectively. The hardware is intact. There is no malalignment. No significant degenerative changes IMPRESSION: Postsurgical change in the pelvis with intact hardware. No malalignment seen MACRO: None Signed by: Cesar Solomon 03/01/2024 6:55 PM Dictation workstation: [id number] [facility] Comment on above: Order Comment: 5 vie w of the pelvis XR PELVIS 3+ VIEWSon 024 XR PELVIS 3+ VIEWS Interpreted By: Sushma Black, STUDY: Pelvis, 5 views. INDICATION: Signs/Symptoms:pelvi s fracture. COMPARISON: 12/28/2023. ACCESSION NUMBER(S): [id number] ORDERING CLINICIAN: ADAM NAVARRO FINDINGS: No acute [...] Sushma Black 02/02/2024 7:24 PM Dictation workstation: [id number] [facility] Comment on above: Order Comment: 5 vie w of the pelvis XR PELVIS 3+ VIEWSon 024 XR PELVIS 3+ VIEWS Interpreted By: Caryn Norman, STUDY: XR PELVIS 3+ VIEWS; ; 12/28/2023 12:54 pm INDICATION: Signs/Symptoms:pain. COMPARISON: Pelvis radiographs dated 12/08/2023. ACCESSION NUMBER(S): [id number] ORDERING CLINICIAN: ADAM NAVARRO FINDINGS: Extensive postsurgical [...] Caryn Norman 12/30/2023 12:52 PM Dictation workstation: [id number] [facility] Comment on above: Order Comment: 5v pe lvis (AP/inlet/outlet/Judet's) Basic metabolic 2000 panelon 12-14-2023 Anion gap [Moles/Vol] 12 mmol/L 10 - 2 0 mmol/L [facility] Calcium [Mass/Vol] 8.3 mg/dL Low 8.6 - 10. 6 mg/dL [facility] Chloride [Moles/Vol] 103 mmol/L 98 - 10 7 mmol/L [facility] CO2 [Moles/Vol] 27 mmol/L 21 - 32 mmol/L [facility] Creatinine [Mass/Vol] 0.82 mg/dL 0.50 - 1.30 mg/dL [facility] eGFR - PINF [facility] Comment on above: Calculations of cris mated GFR are performed using the 2020 CKD-EPI Study Refit equation without the race variable for the IDMS-Traceable creatinine methods. https://jasn.asnjournals.org/content//ASN.16182 46374 Glucose [Mass/Vol] 103 mg/dL High 74 - 99 mg/dL [facility] Interpretation and review of laboratory results Abnormal [facility] Potassium [Moles/Vol] 3.6 mmol/L 3.5 - 5.3 mmol/L [facility] Sodium [Moles/Vol] 138 mmol/L 136 - 145 mmol/L [facility] Urea nitrogen [Mass/Vol] 14 mg/dL 6 - 23 mg/dL [facility] Anion gap [Moles/Vol] 12 mmol/L Normal 10-20 [facility] Comment on above: Performed By: #### 2 4321-2 ####ANASTACIO Hodge ([id number])[facility] ([facility])[address] [place] [address] Calcium [Mass/Vol] 8.3 mg/dL Low 8.6-10.6 [facility] Comment on above: Performed By: #### 2 4321-2 ####ANASTACIO WOOD L ([id number])[facility] ([facility])[address] [place] [address] Chloride [Moles/Vol] 103 mmol/L Normal 98-107 [facility] Comment on above: Performed By: #### 2 4321-2 ####ANASTACIO Hodge ([id number])[facility] ([facility])[address] [place] [address] CO2 [Moles/Vol] 27 mmol/L Normal 21-32 [facility] Comment on above: Performed By: #### 2 4321-2 ####ANASTACIO Hodge ([id number])[facility] ([facility])[address] [place] [address] Creatinine [Mass/Vol] 0.82 mg/dL Normal 0.50-1.30 [facility] Comment on above: Performed By: #### 2 4321-2 ####ANASTACIO Hodge ([id number])[facility] ([facility])[address] [place] [address] GFR/1.73 sq M.predicted MDRD (S/P/Bld) [Vol rate/Area] mL/min/{1.73_m2} Normal >60 [facility] Comment on above: Result Comment: Calc ulations of estimated GFR are performed using the 2020 CKD-EPI Study Refit equation without the race variable for the IDMS-Traceable creatinine methods. https://jasn.asnjournals.org/content//ASN.83585 73228 Performed By: #### 2 4321-2 ####ANASTACIO Hodge ([id number])[facility] ([facility])[address] [place] [address] Glucose [Mass/Vol] 103 mg/dL High 74-99 [facility] Comment on above: Performed By: #### 2 4321-2 ####ANASTACIO Hodge ([id number])[facility] ([facility])[address] [place] [address] Potassium [Moles/Vol] 3.6 mmol/L Normal 3.5-5.3 [facility] Comment on above: Performed By: #### 2 4321-2 ####ANASTACIO WOOD L ([id number])[facility] ([facility])[address] [place] [address] Sodium [Moles/Vol] 138 mmol/L Normal 136-145 [facility] Comment on above: Performed By: #### 2 4321-2 ####ANASTACIO WOOD L ([id number])[facility] ([facility])[address] [place] [address] Urea nitrogen [Mass/Vol] 14 mg/dL Normal 6-23 [facility] Comment on above: Performed By: #### 2 4321-2 ####ANASTACIO WOOD L ([id number])[facility] ([facility])[address] [place] [address] CBC W Auto Differential pane l (Bld)on 12-14-2023 Basophils (Bld) [#/Vol] 0.05 10*3/uL [facility] Basophils/100 WBC (Bld) 0.6 % 0.0 - 2.0 % [facility] Eosinophils (Bld) [#/Vol] 0.30 10*3/uL [facility] Eosinophils/100 WBC (Bld) 3.3 % 0.0 - 6.0 % [facility] Erythrocyte distribution width (RBC) [Ratio] 13.1 % 11.5 - 14.5 % [facility] Hematocrit (Bld) [Volume fraction] 32.7 % Low 41.0 - 52.0 % [facility] Hemoglobin (Bld) [Mass/Vol] 10.8 g/dL Low 13.5 - 17.5 g/dL [facility] Immature granulocytes (Bld) [#/Vol] 0.13 10*3/uL [facility] Immature granulocytes/100 WBC (Bld) 1.4 % High 0.0 - 0.9 % [facility] Comment on above: Immature Granulocyte Count (IG) includes promyelocytes, myelocytes and metamyelocytes but does not include bands. Percent differential counts (%) should be interpreted in the context of the absolute cell counts (cells/UL). Interpretation and review of laboratory results Abnormal [facility] Lymphocytes (Bld) [#/Vol] 1.61 10*3/uL [facility] Lymphocytes/100 WBC (Bld) 17.8 % 13.0 - 44.0 % [facility] MCH (RBC) [Entitic mass] 28.1 pg 26.0 - 34.0 pg [facility] MCHC (RBC) [Mass/Vol] 33.0 g/dL 32.0 - 36.0 g/dL [facility] MCV (RBC) [Entitic vol] 85 fL 80 - 100 fL [facility] Monocytes (Bld) [#/Vol] 0.71 10*3/uL [facility] Monocytes/100 WBC (Bld) 7.8 % 2.0 - 10.0 % [facility] Neutrophils (Bld) [#/Vol] 6.25 10*3/uL [facility] Comment on above: Percent differential counts (%) should be interpreted in the context of the absolute cell counts (cells/uL). Neutrophils/100 WBC (Bld) 69.1 % 40.0 - 80.0 % [facility] Nucleated RBC/100 WBC (Bld) [Ratio] 0.0 % [facility] Platelets (Bld) [#/Vol] 280 10*3/uL [facility] RBC (Bld) [#/Vol] 3.85 10*6/uL [facility] WBC (Bld) [#/Vol] 9.1 10*3/uL [facility] Basophils (Bld) [#/Vol] 0.05 x10*3/uL Normal 0.00-0.10 [facility] Comment on above: Performed By: #### 5 7021-8 ####ANASTACIO Hodge ([id number])[facility] ([facility])[id number] [place] [address] Basophils/100 WBC (Bld) 0.6 % Normal 0.0-2.0 [facility] Comment on above: Performed By: #### 5 7021-8 ####ANASTACIO Hodge ([id number])[facility] ([facility])[address] [place] [address] Eosinophils (Bld) [#/Vol] 0.30 x10*3/uL Normal 0.00-0.70 [facility] Comment on above: Performed By: #### 5 7021-8 ####ANASTACIO Hodge ([id number])[facility] ([facility])[address] [place] [address] Eosinophils/100 WBC (Bld) 3.3 % Normal 0.0-6.0 [facility] Comment on above: Performed By: #### 5 7021-8 ####ANASTACIO Hodge ([id number])[facility] ([facility])[address] [place] [address] Erythrocyte distribution width (RBC) [Ratio] 13.1 % Normal 11.5-14.5 [facility] Comment on above: Performed By: #### 5 7021-8 ####ANASTACIO Hodge ([id number])[facility] ([facility])[address] [place] [address] Hematocrit (Bld) [Volume fraction] 32.7 % Low 41.0-52.0 [facility] Comment on above: Performed By: #### 5 7021-8 ####ANASTACIO Hodge ([id number])[facility] ([facility])[address] [place] [address] Hemoglobin (Bld) [Mass/Vol] 10.8 g/dL Low 13.5-17.5 [facility] Comment on above: Performed By: #### 5 7021-8 ####ANASTACIO Hodge ([id number])[facility] ([facility])[address] [place] [address] Immature granulocytes (Bld) [#/Vol] 0.13 x10*3/uL Normal 0.00-0.70 [facility] Comment on above: Performed By: #### 5 7021-8 ####ANASTACIO Hodge ([id number])[facility] ([facility])[address] [place] [address] Immature granulocytes/100 WBC (Bld) 1.4 % High 0.0-0.9 [facility] Comment on above: Result Comment: Brittany ture Granulocyte Count (IG) includes promyelocytes, myelocytes and metamyelocytes but does not include bands. Percent differential counts (%) should be interpreted in the context of the absolute cell counts (cells/UL). Performed By: #### 5 7021-8 ####ANASTACIO Hodge ([id number])[facility] ([facility])[address] [place] [address] Lymphocytes (Bld) [#/Vol] 1.61 x10*3/uL Normal 1.20-4.80 [facility] Comment on above: Performed By: #### 5 7021-8 ####ANASTACIO Hodge ([id number])[facility] ([facility])[address] [place] [address] Lymphocytes/100 WBC (Bld) 17.8 % Normal 13.0-44.0 [facility] Comment on above: Performed By: #### 5 7021-8 ####ANASTACIO Hodge ([id number])[facility] ([facility])[address] [place] [address] MCH (RBC) [Entitic mass] 28.1 pg Normal 26.0-34.0 [facility] Comment on above: Performed By: #### 5 7021-8 ####ANASTACIO Hodge ([id number])[facility] ([facility])[address] [place] [address] MCHC (RBC) [Mass/Vol] 33.0 g/dL Normal 32.0-36.0 [facility] Comment on above: Performed By: #### 5 7021-8 ####ANASTACIO Hodge ([id number])[facility] ([facility])[address] [place] [address] MCV (RBC) [Entitic vol] 85 fL Normal 80-100 [facility] Comment on above: Performed By: #### 5 7021-8 ####ANASTACIO Hodge ([id number])[facility] ([facility])[address] [place] [address] Monocytes (Bld) [#/Vol] 0.71 x10*3/uL Normal 0.10-1.00 [facility] Comment on above: Performed By: #### 5 7021-8 ####ANASTACIO Hodge ([id number])[facility] ([facility])[address] [place] [address] Monocytes/100 WBC (Bld) 7.8 % Normal 2.0-10.0 [facility] Comment on above: Performed By: #### 5 7021-8 ####ANASTACIO Hodge ([id number])[facility] ([facility])[address] [place] [address] Neutrophils (Bld) [#/Vol] 6.25 x10*3/uL Normal 1.20-7.70 [facility] Comment on above: Result Comment: Perc ent differential counts (%) should be interpreted in the context of the absolute cell counts (cells/uL). Performed By: #### 5 7021-8 ####ANASTACIO Hodge ([id number])[facility] ([facility])[address] [place] [address] Neutrophils/100 WBC (Bld) 69.1 % Normal 40.0-80.0 [facility] Comment on above: Performed By: #### 5 7021-8 ####ANASTACIO Hodge ([id number])[facility] ([facility])[address] [place] [address] Nucleated RBC/100 WBC (Bld) [Ratio] 0.0 /100 WBCs Normal 0.0-0.0 [facility] Comment on above: Performed By: #### 5 7021-8 ####ANASTACIO Hodge ([id number])[facility] ([facility])[address] [place] [address] Platelets (Bld) [#/Vol] 280 x10*3/uL Normal 150-450 [facility] Comment on above: Performed By: #### 5 7021-8 ####ANASTACIO Hodge ([id number])[facility] ([facility])[address] [place] [address] RBC (Bld) [#/Vol] 3.85 x10*6/uL Low 4.50-5.90 [facility] Comment on above: Performed By: #### 5 7021-8 ####ANASTACIO WOOD L ([id number])[facility] ([facility])[address] [place] [address] WBC (Bld) [#/Vol] 9.1 x10*3/uL Normal 4.4-11.3 [facility] Comment on above: Performed By: #### 5 7021-8 ####ANASTACIO Hodge ([id number])[facility] ([facility])[address] [place] [address] Electrocardiogram, 12-lead P RN ACS symptomsOrdered By: Dustin Lyman on 12-14-2023 Atrial Rate 104 BPM [facility] Work Phone: [phone] P Fillmore 43 degrees [facility] Work Phone: [phone] P Offset 196 ms [facility] Work Phone: [phone] P Onset 139 ms [facility] Work Phone: [phone] TN Interval 154 ms [facility] Work Phone: [phone] Q Onset 216 ms [facility] Work Phone: [phone] QRS Count 17 beats [facility] Work Phone: [phone] QRS Duration 94 ms [facility] Work Phone: [phone] QT Interval 346 ms [facility] Work Phone: [phone] QTC Calculation(Bazett) 454 ms [facility] Work Phone: [phone] QTC Fredericia 415 ms [facility] Work Phone: [phone] R Fillmore 9 degrees [facility] Work Phone: [phone] T Fillmore 27 degrees [facility] Work Phone: T Offset 389 ms [facility] Work Phone: Ventricular Rate 104 BPM [facility] Work Phone: [facility] Work Phone: Electrocardiogram, 12-lead P RN ACS symptomson 12-14-2023 Sinus tachycardia Minimal voltage criteria for LVH, may be normal variant Borderline ECG No previous ECGs available Confirmed by Dustin Lyman ([id number]) on 12/14/2023 2:58:33 PM MUSE Dustin Lyman MD - 12/14/2023 Sinus tachycardia Minimal voltage criteria for LVH, may be normal variant Borderline ECG No previous ECGs available Confirmed by Dustin Lyman ([id number]) on 12/14/2023 2:58:33 PM [facility] Work Phone: Magnesiumon 12-14-2023 Magnesium [Mass/Vol] 2.11 mg/dL 1.60 - 2.40 mg/dL [facility] Magnesium [Mass/Vol] 2.11 mg/dL Normal 1.60-2.40 [facility] Comment on above: Performed By: #### 1 9123-9 ####ANASTACIO Hodge ([id number])[facility] ([facility])[address] [place] [address] Magnesium [Mass/Vol]on 12-13 Interpretation and review of laboratory results Normal [facility] No Panel Informationon 12-13 [facility] Basic metabolic 2000 panelon 12-13-2023 Anion gap [Moles/Vol] 13 mmol/L 10 - 2 0 mmol/L [facility] Calcium [Mass/Vol] 8.5 mg/dL Low 8.6 - 10. 6 mg/dL [facility] Chloride [Moles/Vol] 100 mmol/L 98 - 10 7 mmol/L [facility] CO2 [Moles/Vol] 28 mmol/L 21 - 32 mmol/L [facility] Creatinine [Mass/Vol] 0.92 mg/dL 0.50 - 1.30 mg/dL [facility] eGFR - PINF [facility] Comment on above: Calculations of cris mated GFR are performed using the 2020 CKD-EPI Study Refit equation without the race variable for the IDMS-Traceable creatinine methods. https://jasn.asnjournals.org/content//ASN.22896 10572 Glucose [Mass/Vol] 101 mg/dL High 74 - 99 mg/dL [facility] Interpretation and review of laboratory results Abnormal [facility] Potassium [Moles/Vol] 3.9 mmol/L 3.5 - 5.3 mmol/L [facility] Sodium [Moles/Vol] 137 mmol/L 136 - 145 mmol/L [facility] Urea nitrogen [Mass/Vol] 16 mg/dL 6 - 23 mg/dL [facility] Anion gap [Moles/Vol] 13 mmol/L Normal 10-20 [facility] Comment on above: Performed By: #### 2 4321-2 ####ANASTACIO WOOD L ([id number])[facility] ([facility])[address] [place] [address] Calcium [Mass/Vol] 8.5 mg/dL Low 8.6-10.6 [facility] Comment on above: Performed By: #### 2 4321-2 ####ANASTACIO KENNYMOTZER L ([id number])[facility] ([facility])[address] [place] [address] Chloride [Moles/Vol] 100 mmol/L Normal 98-107 [facility] Comment on above: Performed By: #### 2 4321-2 ####ANASTACIO KENNYMOTZER L ([id number])[facility] ([facility])[address] [place] [address] CO2 [Moles/Vol] 28 mmol/L Normal 21-32 [facility] Comment on above: Performed By: #### 2 4321-2 ####ANASTACIO KENNYMOTZER L ([id number])[facility] ([facility])[address] [place] [address] Creatinine [Mass/Vol] 0.92 mg/dL Normal 0.50-1.30 [facility] Comment on above: Performed By: #### 2 4321-2 ####ANASTACIO Hodge ([id number])[facility] ([facility])[address] [place] [address] GFR/1.73 sq M.predicted MDRD (S/P/Bld) [Vol rate/Area] mL/min/{1.73_m2} Normal >60 [facility] Comment on above: Result Comment: Calc ulations of estimated GFR are performed using the 2020 CKD-EPI Study Refit equation without the race variable for the IDMS-Traceable creatinine methods. https://jasn.asnjournals.org/content/early//ASN.68390 09111 Performed By: #### 2 4321-2 ####ANASTACIO Hodge ([id number])[facility] ([facility])[address] [place] [address] Glucose [Mass/Vol] 101 mg/dL High 74-99 [facility] Comment on above: Performed By: #### 2 4321-2 ####ANASTACIO Hodge ([id number])[facility] ([facility])[address] [place] [address] Potassium [Moles/Vol] 3.9 mmol/L Normal 3.5-5.3 [facility] Comment on above: Performed By: #### 2 4321-2 ####ANASTACIO Hodge ([id number])[facility] ([facility])[address] [place] [address] Sodium [Moles/Vol] 137 mmol/L Normal 136-145 [facility] Comment on above: Performed By: #### 2 4321-2 ####ANASTACIO Hodge ([id number])[facility] ([facility])[address] [place] [address] Urea nitrogen [Mass/Vol] 16 mg/dL Normal 6-23 [facility] Comment on above: Performed By: #### 2 4321-2 ####ANASTACIO Hodge ([id number])[facility] ([facility])[address] [place] [address] CBC W Auto Differential pane l (Bld)on 12-13-2023 Basophils (Bld) [#/Vol] 0.06 10*3/uL [facility] Basophils/100 WBC (Bld) 0.5 % 0.0 - 2.0 % [facility] Eosinophils (Bld) [#/Vol] 0.40 10*3/uL [facility] Eosinophils/100 WBC (Bld) 3.4 % 0.0 - 6.0 % [facility] Erythrocyte distribution width (RBC) [Ratio] 13.1 % 11.5 - 14.5 % [facility] Hematocrit (Bld) [Volume fraction] 36.4 % Low 41.0 - 52.0 % [facility] Hemoglobin (Bld) [Mass/Vol] 12.0 g/dL Low 13.5 - 17.5 g/dL [facility] Immature granulocytes (Bld) [#/Vol] 0.17 10*3/uL [facility] Immature granulocytes/100 WBC (Bld) 1.4 % High 0.0 - 0.9 % [facility] Comment on above: Immature Granulocyte Count (IG) includes promyelocytes, myelocytes and metamyelocytes but does not include bands. Percent differential counts (%) should be interpreted in the context of the absolute cell counts (cells/UL). Interpretation and review of laboratory results Abnormal [facility] Lymphocytes (Bld) [#/Vol] 2.07 10*3/uL [facility] Lymphocytes/100 WBC (Bld) 17.5 % 13.0 - 44.0 % [facility] MCH (RBC) [Entitic mass] 28.1 pg 26.0 - 34.0 pg [facility] MCHC (RBC) [Mass/Vol] 33.0 g/dL 32.0 - 36.0 g/dL [facility] MCV (RBC) [Entitic vol] 85 fL 80 - 100 fL [facility] Monocytes (Bld) [#/Vol] 0.87 10*3/uL [facility] Monocytes/100 WBC (Bld) 7.3 % 2.0 - 10.0 % [facility] Neutrophils (Bld) [#/Vol] 8.28 10*3/uL High [facility] Comment on above: Percent differential counts (%) should be interpreted in the context of the absolute cell counts (cells/uL). Neutrophils/100 WBC (Bld) 69.9 % 40.0 - 80.0 % [facility] Nucleated RBC/100 WBC (Bld) [Ratio] 0.0 % [facility] Platelets (Bld) [#/Vol] 307 10*3/uL [facility] RBC (Bld) [#/Vol] 4.27 10*6/uL Low [facility] WBC (Bld) [#/Vol] 11.9 10*3/uL High [facility] Basophils (Bld) [#/Vol] 0.06 x10*3/uL Normal 0.00-0.10 [facility] Comment on above: Performed By: #### 5 7021-8 ####ANASTACIO Hodge ([id number])[facility] ([facility])[address] [place] [address] Basophils/100 WBC (Bld) 0.5 % Normal 0.0-2.0 [facility] Comment on above: Performed By: #### 5 7021-8 ####ANASTACIO KENNYMOTZSABINE L ([id number])[facility] ([facility])[address] [place] [address] Eosinophils (Bld) [#/Vol] 0.40 x10*3/uL Normal 0.00-0.70 [facility] Comment on above: Performed By: #### 5 7021-8 ####ANASTACIO WOOD L ([id number])[facility] ([facility])[address] [place] [address] Eosinophils/100 WBC (Bld) 3.4 % Normal 0.0-6.0 [facility] Comment on above: Performed By: #### 5 7021-8 ####ANASTACIO WOOD L ([id number])[facility] ([facility])[address] [place] [address] Erythrocyte distribution width (RBC) [Ratio] 13.1 % Normal 11.5-14.5 [facility] Comment on above: Performed By: #### 5 7021-8 ####ANASTACIO Hodge ([id number])[facility] ([facility])[address] [place] [address] Hematocrit (Bld) [Volume fraction] 36.4 % Low 41.0-52.0 [facility] Comment on above: Performed By: #### 5 7021-8 ####ANASTACIO Hodge ([id number])[facility] ([facility])[address] [place] [address] Hemoglobin (Bld) [Mass/Vol] 12.0 g/dL Low 13.5-17.5 [facility] Comment on above: Performed By: #### 5 7021-8 ####ANASTACIO Hodge ([id number])[facility] ([facility])[address] [place] [address] Immature granulocytes (Bld) [#/Vol] 0.17 x10*3/uL Normal 0.00-0.70 [facility] Comment on above: Performed By: #### 5 7021-8 ####ANASTACIO Hodge ([id number])[facility] ([facility])[address] [place] [address] Immature granulocytes/100 WBC (Bld) 1.4 % High 0.0-0.9 [facility] Comment on above: Result Comment: Brittany ture Granulocyte Count (IG) includes promyelocytes, myelocytes and metamyelocytes but does not include bands. Percent differential counts (%) should be interpreted in the context of the absolute cell counts (cells/UL). Performed By: #### 5 7021-8 ####ANASTACIO Hodge ([id number])[facility] ([facility])[address] [place] [address] Lymphocytes (Bld) [#/Vol] 2.07 x10*3/uL Normal 1.20-4.80 [facility] Comment on above: Performed By: #### 5 7021-8 ####ANASTACIO Hodge ([id number])[facility] ([facility])[address] [place] [address] Lymphocytes/100 WBC (Bld) 17.5 % Normal 13.0-44.0 [facility] Comment on above: Performed By: #### 5 7021-8 ####ANASTACIO Hodge ([id number])[facility] ([facility])[address] [place] [address] MCH (RBC) [Entitic mass] 28.1 pg Normal 26.0-34.0 [facility] Comment on above: Performed By: #### 5 7021-8 ####ANASTACIO Hodge ([id number])[facility] ([facility])[address] [place] [address] MCHC (RBC) [Mass/Vol] 33.0 g/dL Normal 32.0-36.0 [facility] Comment on above: Performed By: #### 5 7021-8 ####ANASTACIO Hodge ([id number])[facility] ([facility])[address] [place] [address] MCV (RBC) [Entitic vol] 85 fL Normal 80-100 [facility] Comment on above: Performed By: #### 5 7021-8 ####ANASTACIO Hodge ([id number])[facility] ([facility])[address] [place] [address] Monocytes (Bld) [#/Vol] 0.87 x10*3/uL Normal 0.10-1.00 [facility] Comment on above: Performed By: #### 5 7021-8 ####ANASTACIO Hodge ([id number])[facility] ([facility])[address] [place] [address] Monocytes/100 WBC (Bld) 7.3 % Normal 2.0-10.0 [facility] Comment on above: Performed By: #### 5 7021-8 ####ANASTACIO Hodge ([id number])[facility] ([facility])[address] [place] [address] Neutrophils (Bld) [#/Vol] 8.28 x10*3/uL High 1.20-7.70 [facility] Comment on above: Result Comment: Perc ent differential counts (%) should be interpreted in the context of the absolute cell counts (cells/uL). Performed By: #### 5 7021-8 ####ANASTACIO Hodge ([id number])[facility] ([facility])[address] [place] [address] Neutrophils/100 WBC (Bld) 69.9 % Normal 40.0-80.0 [facility] Comment on above: Performed By: #### 5 7021-8 ####ANASTACIO Hodge ([id number])[facility] ([facility])[address] [place] [address] Nucleated RBC/100 WBC (Bld) [Ratio] 0.0 /100 WBCs Normal 0.0-0.0 [facility] Comment on above: Performed By: #### 5 7021-8 ####ANASTACIO Hodge ([id number])[facility] ([facility])[address] [place] [address] Platelets (Bld) [#/Vol] 307 x10*3/uL Normal 150-450 [facility] Comment on above: Performed By: #### 5 7021-8 ####ANASTACIO Hodge ([id number])[facility] ([facility])[address] [place] [address] RBC (Bld) [#/Vol] 4.27 x10*6/uL Low 4.50-5.90 [facility] Comment on above: Performed By: #### 5 7021-8 ####ANASTACIO Hodge ([id number])[facility] ([facility])[address] [place] [address] WBC (Bld) [#/Vol] 11.9 x10*3/uL High 4.4-11.3 [facility] Comment on above: Performed By: #### 5 7021-8 ####ANASTACIO GEER L ([id number])[facility] ([facility])[address] [place] [address] Magnesiumon 12-13-2023 Magnesium [Mass/Vol] 2.12 mg/dL 1.60 - 2.40 mg/dL [facility] Magnesium [Mass/Vol] 2.12 mg/dL Normal 1.60-2.40 [facility] Comment on above: Performed By: #### 1 9123-9 ####ANASTACIO GEER L ([id number])[facility] ([facility])[address] [place] [address] Magnesium [Mass/Vol]on 12-12 Interpretation and review of laboratory results Normal [facility] No Panel Informationon 12-12 [facility] Basic metabolic 2000 panelon 12-12-2023 Anion gap [Moles/Vol] 14 mmol/L 10 - 2 0 mmol/L [facility] Calcium [Mass/Vol] 7.8 mg/dL Low 8.6 - 10. 6 mg/dL [facility] Chloride [Moles/Vol] 103 mmol/L 98 - 10 7 mmol/L [facility] CO2 [Moles/Vol] 25 mmol/L 21 - 32 mmol/L [facility] Creatinine [Mass/Vol] 0.87 mg/dL 0.50 - 1.30 mg/dL [facility] eGFR - PINF [facility] Comment on above: Calculations of cris mated GFR are performed using the 2020 CKD-EPI Study Refit equation without the race variable for the IDMS-Traceable creatinine methods. https://jasn.asnjournals.org/content//ASN.48562 31879 Glucose [Mass/Vol] 89 mg/dL 74 - 99 mg/dL [facility] Interpretation and review of laboratory results Abnormal [facility] Potassium [Moles/Vol] 3.4 mmol/L Low 3.5 - 5.3 mmol/L [facility] Sodium [Moles/Vol] 139 mmol/L 136 - 145 mmol/L [facility] Urea nitrogen [Mass/Vol] 14 mg/dL 6 - 23 mg/dL [facility] Anion gap [Moles/Vol] 14 mmol/L Normal 10-20 [facility] Comment on above: Performed By: #### 2 4321-2 ####ANASTACIO WOOD L ([id number])[facility] ([facility])[address] [place] [address] Calcium [Mass/Vol] 7.8 mg/dL Low 8.6-10.6 [facility] Comment on above: Performed By: #### 2 4321-2 ####ANASTACIO WOOD L ([id number])[facility] ([facility])[address] [place] [address] Chloride [Moles/Vol] 103 mmol/L Normal 98-107 [facility] Comment on above: Performed By: #### 2 4321-2 ####ANASTACIO WOOD L ([id number])[facility] ([facility])[address] [place] [address] CO2 [Moles/Vol] 25 mmol/L Normal 21-32 [facility] Comment on above: Performed By: #### 2 4321-2 ####ANASTACIO WOOD L ([id number])[facility] ([facility])[address] [place] [address] Creatinine [Mass/Vol] 0.87 mg/dL Normal 0.50-1.30 [facility] Comment on above: Performed By: #### 2 4321-2 ####ANASTACIO WOOD L ([id number])[facility] ([facility])[address] [place] [address] GFR/1.73 sq M.predicted MDRD (S/P/Bld) [Vol rate/Area] mL/min/{1.73_m2} Normal >60 [facility] Comment on above: Result Comment: Calc ulations of estimated GFR are performed using the 2020 CKD-EPI Study Refit equation without the race variable for the IDMS-Traceable creatinine methods. https://jasn.asnjournals.org/content//ASN.48099 49484 Performed By: #### 2 4321-2 ####ANASTACIO Hodge ([id number])[facility] ([facility])[address] [place] [address] Glucose [Mass/Vol] 89 mg/dL Normal 74-99 [facility] Comment on above: Performed By: #### 2 4321-2 ####NAASTACIO Hodge ([id number])[facility] ([facility])[address] [place] [address] Potassium [Moles/Vol] 3.4 mmol/L Low 3.5-5.3 [facility] Comment on above: Performed By: #### 2 4321-2 ####ANASTACIO Hodge ([id number])[facility] ([facility])[address] [place] [address] Sodium [Moles/Vol] 139 mmol/L Normal 136-145 [facility] Comment on above: Performed By: #### 2 4321-2 ####ANASTACIO Hodge ([id number])[facility] ([facility])[id number] [place] [id number] Urea nitrogen [Mass/Vol] 14 mg/dL Normal 6-23 [facility] Comment on above: Performed By: #### 2 4321-2 ####ANASTACIO Hodge ([id number])[facility] ([facility])[id number] [place] [address] 67186 CBC W Auto Differential pane l (Bld)on 12-12-2023 Basophils (Bld) [#/Vol] 0.07 10*3/uL [facility] Basophils/100 WBC (Bld) 0.5 % 0.0 - 2.0 % [facility] Eosinophils (Bld) [#/Vol] 0.26 10*3/uL [facility] Eosinophils/100 WBC (Bld) 2.0 % 0.0 - 6.0 % [facility] Erythrocyte distribution width (RBC) [Ratio] 12.8 % 11.5 - 14.5 % [facility] Hematocrit (Bld) [Volume fraction] 34.8 % Low 41.0 - 52.0 % [facility] Hemoglobin (Bld) [Mass/Vol] 11.8 g/dL Low 13.5 - 17.5 g/dL [facility] Immature granulocytes (Bld) [#/Vol] 0.10 10*3/uL [facility] Immature granulocytes/100 WBC (Bld) 0.8 % 0.0 - 0.9 % [facility] Comment on above: Immature Granulocyte Count (IG) includes promyelocytes, myelocytes and metamyelocytes but does not include bands. Percent differential counts (%) should be interpreted in the context of the absolute cell counts (cells/UL). Interpretation and review of laboratory results Abnormal [facility] Lymphocytes (Bld) [#/Vol] 1.93 10*3/uL [facility] Lymphocytes/100 WBC (Bld) 14.7 % 13.0 - 44.0 % [facility] MCH (RBC) [Entitic mass] 27.8 pg 26.0 - 34.0 pg [facility] MCHC (RBC) [Mass/Vol] 33.9 g/dL 32.0 - 36.0 g/dL [facility] MCV (RBC) [Entitic vol] 82 fL 80 - 100 fL [facility] Monocytes (Bld) [#/Vol] 1.09 10*3/uL High [facility] Monocytes/100 WBC (Bld) 8.3 % 2.0 - 10.0 % [facility] Neutrophils (Bld) [#/Vol] 9.66 10*3/uL High [facility] Comment on above: Percent differential counts (%) should be interpreted in the context of the absolute cell counts (cells/uL). Neutrophils/100 WBC (Bld) 73.7 % 40.0 - 80.0 % [facility] Nucleated RBC/100 WBC (Bld) [Ratio] 0.0 % [facility] Platelets (Bld) [#/Vol] 296 10*3/uL [facility] RBC (Bld) [#/Vol] 4.25 10*6/uL Low [facility] WBC (Bld) [#/Vol] 13.1 10*3/uL High [facility] Basophils (Bld) [#/Vol] 0.07 x10*3/uL Normal 0.00-0.10 [facility] Comment on above: Performed By: #### 5 7021-8 #### ANASTACIO Hodge ([id number]) [facility] ([facility]) [address] [place] [address] 68030 Basophils/100 WBC (Bld) 0.5 % Normal 0.0-2.0 [facility] Comment on above: Performed By: #### 7021-8 #### ANASTACIO WOOD L ([id number]) [facility] ([facility]) [address] [place] [address] 69329 Eosinophils (Bld) [#/Vol] 0.26 x10*3/uL Normal 0.00-0.70 [facility] Comment on above: Performed By: #### 5 7021-8 #### ANASTACIO WOOD L ([id number]) [facility] ([facility]) [address] [place] [address] 66589 Eosinophils/100 WBC (Bld) 2.0 % Normal 0.0-6.0 [facility] Comment on above: Performed By: #### 5 7021-8 #### ANASTACIO WOOD L ([id number]) [facility] ([facility]) [address] [place] [address] 77615 Erythrocyte distribution width (RBC) [Ratio] 12.8 % Normal 11.5-14.5 [facility] Comment on above: Performed By: #### 5 7021-8 #### ANASTACIO WOOD L ([id number]) [facility] ([facility]) [address] [place] [address] 91828 Hematocrit (Bld) [Volume fraction] 34.8 % Low 41.0-52.0 [facility] Comment on above: Performed By: #### 5 7021-8 #### ANASTACIO WOOD L ([id number]) [facility] ([facility]) [address] [place] [address] 64088 Hemoglobin (Bld) [Mass/Vol] 11.8 g/dL Low 13.5-17.5 [facility] Comment on above: Performed By: #### 5 7021-8 #### ANASTACIO Hodge ([id number]) [facility] ([facility]) [address] [place] [address] 79041 Immature granulocytes (Bld) [#/Vol] 0.10 x10*3/uL Normal 0.00-0.70 [facility] Comment on above: Performed By: #### 5 7021-8 #### ANASTACIO Hodge ([id number]) [facility] ([facility]) [address] [place] [address] 63684 Immature granulocytes/100 WBC (Bld) 0.8 % Normal 0.0-0.9 [facility] Comment on above: Result Comment: Brittany ture Granulocyte Count (IG) includes promyelocytes, myelocytes and metamyelocytes but does not include bands. Percent differential counts (%) should be interpreted in the context of the absolute cell counts (cells/UL). Performed By: #### 5 7021-8 #### ANASTACIO Hodge ([id number]) [facility] ([facility]) [address] [place] [address] 94367 Lymphocytes (Bld) [#/Vol] 1.93 x10*3/uL Normal 1.20-4.80 [facility] Comment on above: Performed By: #### 5 7021-8 #### ANASTACIO Hodge ([id number]) [facility] ([facility]) [address] [place] [address] 56430 Lymphocytes/100 WBC (Bld) 14.7 % Normal 13.0-44.0 [facility] Comment on above: Performed By: #### 5 7021-8 #### ANASTACIO Hodge ([id number]) [facility] ([facility]) [address] [place] [address] 46247 MCH (RBC) [Entitic mass] 27.8 pg Normal 26.0-34.0 [facility] Comment on above: Performed By: #### 5 7021-8 #### ANASTACIO Hodge ([id number]) [facility] ([facility]) [address] [place] [address] MCHC (RBC) [Mass/Vol] 33.9 g/dL Normal 32.0-36.0 [facility] Comment on above: Performed By: #### 5 7021-8 #### ANASTACIO KENNYMODEBI L (65279) [facility] ([facility]) [address] [place] [address] 62493 MCV (RBC) [Entitic vol] 82 fL Normal 80-100 [facility] Comment on above: Performed By: #### 5 7021-8 #### ANASTACIO WOOD L ([id number]) [facility] ([facility]) [address] [place] [address] 48583 Monocytes (Bld) [#/Vol] 1.09 x10*3/uL High 0.10-1.00 [facility] Comment on above: Performed By: #### 5 7021-8 #### ANASTACIO WOOD L (60598) [facility] ([facility]) [address] [place] [address] 67523 Monocytes/100 WBC (Bld) 8.3 % Normal 2.0-10.0 [facility] Comment on above: Performed By: #### 5 7021-8 #### ANASTACIO KENNYMODEBI L (48270) [facility] ([facility]) [address] [place] [address] 08071 Neutrophils (Bld) [#/Vol] 9.66 x10*3/uL High 1.20-7.70 [facility] Comment on above: Result Comment: Perc ent differential counts (%) should be interpreted in the context of the absolute cell counts (cells/uL). Performed By: #### 5 7021-8 #### ANASTACIO KENNYMOTZSABINE L ([id number]) [facility] ([facility]) [address] [place] [address] Neutrophils/100 WBC (Bld) 73.7 % Normal 40.0-80.0 [facility] Comment on above: Performed By: #### 5 7021-8 #### ANASTACIO Hodge (44082) [facility] ([facility]) [address] [place] [address] 83871 Nucleated RBC/100 WBC (Bld) [Ratio] 0.0 /100 WBCs Normal 0.0-0.0 [facility] Comment on above: Performed By: #### 5 7021-8 #### ANASTACIO Hodge ([id number]) [facility] ([facility]) [address] [place] [address] 85244 Platelets (Bld) [#/Vol] 296 x10*3/uL Normal 150-450 [facility] Comment on above: Performed By: #### 5 7021-8 #### ANASTACIO Hodge ([id number]) [facility] ([facility]) [address] [place] [address] 12540 RBC (Bld) [#/Vol] 4.25 x10*6/uL Low 4.50-5.90 [facility] Comment on above: Performed By: #### 5 7021-8 #### ANASTACIO Hodge ([id number]) [facility] ([facility]) [address] [place] [address] 63066 WBC (Bld) [#/Vol] 13.1 x10*3/uL High 4.4-11.3 [facility] Comment on above: Performed By: #### 5 7021-8 #### ANASTACIO Hodge ([id number]) [facility] ([facility]) [address] [place] [address] 78773 Magnesiumon 12-12-2023 Magnesium [Mass/Vol] 1.81 mg/dL 1.60 - 2.40 mg/dL [facility] Magnesium [Mass/Vol] 1.81 mg/dL Normal 1.60-2.40 [facility] Comment on above: Performed By: #### 1 9123-9 #### ANASTACIO Hodge ([id number]) [facility] ([facility]) [address] [place] [address] 47361 Magnesium [Mass/Vol]on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 listhesis of L5 on S1. [employer] Phone: IR LUMBAR PUNCTURE FOR MYELO GRAM [...] Please see CT dictation for full details. [employer] Phone: [place] [place] Incoming Radiant Results From [employer] - 02/26/2021 11:13 AM EDT IMPRESSION: 1. [...] Please see CT dictation for full details. [employer] Phone: No Panel InformationOrdered By: Hamilton Elder on 02-26-2021 [employer] Phone: [employer] Phone: CT LUMBAR SPINE W CONTRASTon 02-25-2021 [...] Shun Shah MD 02/26/21 Final result [facility] IR LUMBAR PUNCTURE FOR MYELO GRAM [...] Shun Shah MD 02/26/21 Final result [facility] Basic Metabolic Panelon 02-05 Anion gap [Moles/Vol] 10 mmol/L Normal 9-15 [facility] Comment on above: Performed By: #### B MP #### [facility] [address] [place] [address] Calcium [Mass/Vol] 9.3 mg/dL Normal 8.5-9.9 [facility] Comment on above: Performed By: #### B MP #### [facility] [address] [place] [address] Chloride [Moles/Vol] 102 mmol/L Normal 95-107 [facility] Comment on above: Performed By: #### B MP #### [facility] [address] [place] [address] CO2 [Moles/Vol] 27 mmol/L Normal 20-31 [facility] Comment on above: Performed By: #### B MP #### [facility] [address] [place] [address] Creatinine [Mass/Vol] 0.83 mg/dL Normal 0.70-1.20 [facility] Comment on above: Performed By: #### B MP #### [facility] [address] [place] [address] GFR >60.0 Normal >60 [facility] Comment on above: Result Comment: >60 mL/min/1.73m2 EGFR, calc. for ages 18 and older using the MDRD formula (not corrected for weight), is valid for stable renal function. Performed By: #### B MP #### [facility] [address] [place] [address] GFR/1.73 sq M.predicted among blacks MDRD (S/P/Bld) [Vol rate/Area] mL/min/{1.73_m2} Normal >60 [facility] Comment on above: Result Comment: >60 mL/min/1.73m2 EGFR, calc. for ages 18 and older using the MDRD formula (not corrected for weight), is valid for stable renal function. Performed By: #### B MP #### [facility] [address] [place] [address] Glucose [Mass/Vol] 96 mg/dL Normal 70-99 [facility] Comment on above: Performed By: #### B MP #### [facility] [address] [place] [address] Potassium [Moles/Vol] 3.8 mmol/L Normal 3.4-4.9 [facility] Comment on above: Performed By: #### B MP #### [facility] [address] [place] [address] Sodium [Moles/Vol] 139 mmol/L Normal 135-144 [facility] Comment on above: Performed By: #### B MP #### [facility] [address] [place] [address] Urea nitrogen [Mass/Vol] 13 mg/dL Normal 6-20 [facility] Comment on above: Performed By: #### B MP #### [facility] [address] [place] [address] CBC With Platelet No Differe ntialon 02-19-2021 Erythrocyte distribution width (RBC) [Ratio] 12.9 % Normal 11.5-14.5 [facility] Comment on above: Performed By: #### C BCND #### [facility] [address] [place] [address] Hematocrit (Bld) [Volume fraction] 45.5 % Normal 42.0-52.0 [facility] Comment on above: Performed By: #### C BCND #### [facility] [address] [place] [address] Hemoglobin (Bld) [Mass/Vol] 15.3 g/dL Normal 14.0-18.0 [facility] Comment on above: Performed By: #### C BCND #### [facility] [address] [place] [address] MCH (RBC) [Entitic mass] 28.7 pg Normal 27.0-31.3 [facility] Comment on above: Performed By: #### C BCND #### [facility] [address] [place] [address] MCHC 33.7 % Normal 33.0-37.0 [facility] Comment on above: Performed By: #### C BCND #### [facility] [address] [place] [address] MCV (RBC) [Entitic vol] 85.4 fL Normal 80.0-100.0 [facility] Comment on above: Performed By: #### C BCND #### [facility] [address] [place] [address] Platelets (Bld) [#/Vol] 259 10*3/uL Normal 130-400 [facility] Comment on above: Performed By: #### C BCND #### [facility] [address] [place] [address] RBC (Bld) [#/Vol] 5.33 10*6/uL Normal 4.70-6.10 [facility] Comment on above: Performed By: #### C BCND #### [facility] [address] [place] [address] WBC (Bld) [#/Vol] 6.2 10*3/uL Normal 4.8-10.8 [facility] Comment on above: Performed By: #### C BCND #### [facility] [address] [place] [address] Prothrombin Timeon INR Coag (PPP) [Relative time] 1.0 {INR} Normal [facility] Comment on above: Performed By: #### P T #### [facility] [address] [place] [address] PT Coag (PPP) [Time] 13.2 s Normal 12.3-14.9 [facility] Comment on above: Performed By: #### P T #### [facility] [address] [place] [address] Vital Signs Date Time Vital Sign Value Performing Clinician Facility 12-21-2023 08:13-0400 Body temperature 97.5 [degF] Adam Navarro MD Work Phone: [facility] 12-21-2023 08:13-0400 Diastolic blood pressure 80 mm[Hg] Adam Navarro MD Work Phone: [facility] 12-21-2023 08:13-0400 Heart rate 85 /min Adam Navarro MD Work Phone: [facility] 12-21-2023 08:13-0400 Respiratory rate 16 /min Adam Navarro MD Work Phone: [facility] 12-21-2023 08:13-0400 SaO2% (BldA) [Mass fraction] 97 % Adam Navarro MD Work Phone: [facility] 12-21-2023 08:13-0400 Systolic blood pressure 119 mm[Hg] Adam Navarro MD Work Phone: [facility] 12-11-2023 08:33-0400 Body height 180.3 cm Adam Navarro MD Work Phone: [facility] 12-11-2023 08:33-0400 Body mass index (BMI) [Ratio] 38.76 kg/m2 Adam Navarro MD Work Phone: [facility] 12-11-2023 08:33-0400 Body weight 126 kg Adam Navarro MD Work Phone: [facility] 11-30-2023 13:53-0400 Body height 180.3 cm Adam Navarro MD Work Phone: [facility] 11-30-2023 13:53-0400 Body mass index (BMI) [Ratio] 37.66 kg/m2 Adam Navarro MD Work Phone: [facility] 11-30-2023 13:53-0400 Body weight 122.47 kg Adam Navarro MD Work Phone: [facility] 09-19-2023 11:45-0500 Body height 182.88 cm [facility] Other 09-19-2023 11:45-0500 Body mass index (BMI) [Ratio] 37.29 kg/m2 [facility] Other 09-19-2023 11:45-0500 Body weight 124.74 kg [facility] Other 09-19-2023 11:45-0500 Diastolic blood pressure 81 mm[Hg] [facility] Other 09-19-2023 11:45-0500 Systolic blood pressure 121 mm[Hg] [facility] Other 07-26-2023 10:45-0500 Body height 182.88 cm [facility] Other 07-26-2023 10:45-0500 Body mass index (BMI) [Ratio] 37.24 kg/m2 [facility] Other 07-26-2023 10:45-0500 Body weight 124.56 kg [facility] Other 07-26-2023 10:45-0500 Diastolic blood pressure 85 mm[Hg] [facility] Other 07-26-2023 10:45-0500 Systolic blood pressure 122 mm[Hg] [facility] Other 06-03-2023 15:00-0400 Body height 182.88 cm [facility] 06-03-2023 15:00-0400 Body mass index (BMI) [Ratio] 37.81 kg/m2 [facility] Other 06-03-2023 15:00-0400 Body temperature 98 [degF] [facility] Other 06-03-2023 15:00-0400 Body weight 126.46 kg [facility] Other 06-03-2023 15:00-0400 Diastolic blood pressure 76 mm[Hg] [facility] Other 06-03-2023 15:00-0400 SaO2% (BldA) [Mass fraction] 98 % [facility] Other 06-03-2023 15:00-0400 Systolic blood pressure 130 mm[Hg] [facility] Other 02-11-2023 10:30-0400 Body height 182.88 cm [facility] Other 02-11-2023 10:30-0400 Body mass index (BMI) [Ratio] 37.16 kg/m2 [facility] Other 02-11-2023 10:30-0400 Body weight 124.29 kg [facility] Other 02-11-2023 10:30-0400 Diastolic blood pressure 85 mm[Hg] [facility] Other 02-11-2023 10:30-0400 Systolic blood pressure 124 mm[Hg] [facility] Other 11-02-2022 16:15-0400 Body height 182.88 cm [facility] Other 11-02-2022 16:15-0400 Body mass index (BMI) [Ratio] 37.05 kg/m2 [facility] Other 11-02-2022 16:15-0400 Body weight 123.92 kg [facility] Other 11-02-2022 16:15-0400 Diastolic blood pressure 86 mm[Hg] [facility] Other 11-02-2022 16:15-0400 Respiratory rate 16 /min [facility] Other 11-02-2022 16:15-0400 Systolic blood pressure 136 mm[Hg] [facility] Other 10-27-2022 11:30-0400 Body height 182.88 cm [facility] Other 10-27-2022 11:30-0400 Body mass index (BMI) [Ratio] 37.29 kg/m2 [facility] Other 10-27-2022 11:30-0400 Body weight 124.74 kg [facility] Other 10-27-2022 11:30-0400 Diastolic blood pressure 80 mm[Hg] [facility] Other 10-27-2022 11:30-0400 SaO2% (BldA) [Mass fraction] 97 % [facility] Other 10-27-2022 11:30-0400 Systolic blood pressure 132 mm[Hg] [facility] Other 02-25-2021 14:30-0400 Diastolic blood pressure 90 mm[Hg] [place] [facility] Phone: 02-25-2021 14:30-0400 Heart rate 79 /min [place] [facility] Phone: 02-25-2021 14:30-0400 Respiratory rate 16 /min [place] [facility] Phone: 02-25-2021 14:30-0400 SaO2% (BldA) [Mass fraction] 97 % [place] [facility] Phone: 02-25-2021 14:30-0400 Systolic blood pressure 148 mm[Hg] [place] [facility] Phone: 02-25-2021 10:43-0400 Body height 180.3 cm [place] [facility] Phone: 02-25-2021 10:43-0400 Body mass index (BMI) [Ratio] 36.54 kg/m2 [place] [facility] Phone: 02-25-2021 10:43-0400 Body weight 118.84 kg [place] [facility] Phone: Encounters Encounter Date Encounter Type Care Provider Facility Start: 08-07-2024 End: 08-07-2024 ambulatory [facility] Start: 07-16-2024 End: 07-16-2024 ambulatory Portia Clark MD Facility:[facility] Start: 07-09-2024 End: 07-09-2024 ambulatory Chantal Mart Facility:[facility] Start: 06-22-2024 End: 06-22-2024 ambulatory [facility] Start: 06-22-2024 End: 06-22-2024 ambulatory [facility] Start: 05-23-2024 End: 05-23-2024 Office outpatient visit 25 minutes Adam Navarro MD Work Phone: [facility] Comment on above: Pelvic pain (Primary Dx) Start: 05-23-2024 End: 05-23-2024 Subsequent hospital visit by physician Larry Muniz X-Ray 2 [facility] Comment on above: Pelvic pain Start: 05-23-2024 End: 05-24-2024 ambulatory [facility] Start: 05-21-2024 End: 05-21-2024 ambulatory Portia Clark MD Facility: [facility] Start: 05-14-2024 End: 05-14-2024 ambulatory Portia Clark MD Facility: [facility] Start: 02-29-2024 End: 02-29-2024 ambulatory ADAM K [facility] Start: 02-01-2024 End: 02-01-2024 Postop follow up visit related to original px Adam Navarro MD Work Phone: [facility] Comment on above: Pelvic pain (Primary Dx) Start: 02-01-2024 End: 02-01-2024 Subsequent hospital visit by physician Larry [id number] X-Ray 2 Comment on above: Pelvic pain Start: 02-01-2024 End: 02-02-2024 ambulatory [facility] Start: 12-28-2023 End: 12-28-2023 Postop follow up visit related to original px Adam Navarro MD Work Phone: [facility] Comment on above: Pelvic pain Start: 12-28-2023 End: 12-28-2023 Subsequent hospital visit by physician Larry [id number] X-Ray 3 Comment on above: Pelvic pain Start: 12-28-2023 End: 12-28-2023 ambulatory [facility] Start: 12-08-2023 End: 12-21-2023 Evaluation and management of inpatient Adam Navarro MD Work Phone: [facility] Darrian Blas 6 Comment on above: Pelvic pain (Primary Dx); Acute postoperative pain Start: 11-30-2023 End: 11-30-2023 Office outpatient new 60 minutes Adam Navarro MD Work Phone: [facility] Comment on above: Pelvic pain (Primary Dx) Start: 11-30-2023 End: 11-30-2023 Subsequent hospital visit by physician [facility] X-Ray 2 Comment on above: Pelvic pain Start: 11-30-2023 End: 12-01-2023 ambulatory ADAM Garcia [facility] Start: 09-19-2023 End: 09-19-2023 ambulatory [facility] Start: 09-19-2023 Office outpatient vi sit 15 minutes Chantal Mart [facility] Start: 09-19-2023 End: 09-19-2023 [facility] Start: 09-16-2023 End: 09-17-2023 Emergency department patient visit Mayela Vicente Facility[facility] Start: 08-22-2023 End: 08-22-2023 ambulatory Portia Clark MD Facility: [facility] Start: 08-17-2023 End: 08-17-2023 ambulatory [facility] Start: 08-17-2023 Telephone encounter Chantal Mart [facility] Start: 07-26-2023 End: 07-26-2023 ambulatory [facility] Start: 07-26-2023 Office outpatient vi sit 15 minutes Chantal Mart [facility] Start: 07-18-2023 End: 07-18-2023 ambulatory [facility] Start: 07-18-2023 Telephone encounter Chantal Mart [facility] Start: 06-03-2023 End: 06-03-2023 ambulatory [facility] Start: 06-03-2023 Office outpatient vi sit 15 minutes Chantal Mart [facility] Start: 05-27-2023 End: 05-27-2023 ambulatory [facility] Start: 05-27-2023 Telephone encounter Chantal Mart [facility] Start: 02-11-2023 End: 02-11-2023 ambulatory [facility] Start: 02-11-2023 Office outpatient vi sit 15 minutes Chantal Mart [facility] Start: 12-10-2022 Telephone encounter Chantal Mart [facility] Start: 12-10-2022 End: 12-11-[address] [facility] Other Start: 12-02-2022 (Televisit) Televisit Chantal Gonzalez [facility] Start: 12-02-2022 End: 12-02-2022 ambulatory [facility] Start: 11-02-2022 End: 11-02-2022 ambulatory [facility] Other Start: 11-02-2022 Office outpatient vi sit 15 minutes [facility] Start: 10-29-2022 End: 10-29-2022 ambulatory [facility] Start: 10-29-2022 Telephone encounter Chantal Mart [facility] Start: 10-27-2022 End: 03-22-2023 ambulatory Chantal Mart Other [facility] [employer] Other Start: 10-27-2022 Office outpatient vi sit 15 minutes Chantal Mart [facility] Start: 09-16-2022 End: 09-17-[address] [...] Start: 02-25-2021 End: 02-28-2021 ambulatory CHANTAL MART [facility] Start: 02-25-2021 End: 02-27-2021 Subsequent hospital visit by physician Shun Shah MD Work Phone: [facility] CT Scan Comment on above: Arrived [...] W Auto Different ial panel - Blood DAAM NAVARRO Start: 12-10-2023 Basic metabolic pane l calcium total Fausto Zendejas MD Work Phone: Start: 12-08-2023 PULSE OXIMETRY, CONTINUOUS ADAM NAAVRRO Start: 12-08-2023 PULSE OXIMETRY, CONTINUOUS Sam Arthur [...] spine w/co ntrast material Hamilton Hensley Jael [employer] Work Phone: Start: 02-25-2021 Injection procedure myelography/ct lumbar Hamilton Shellie Elder [employer] Work Phone: Plan of Treatment Date Care Activity Detail Author Start: 09-16-2033 DTaP/Tdap/Td Vaccine s (2 - Td or Tdap) DTaP/Tdap/Td Vaccines (2 - Td or Tdap) [facility] Start: 2025 Zoster Vaccines (1 o f 2) Zoster Vaccines (1 of 2) [facility] Start: 11-21-2024 End: 05-23-2025 XR Pelvis 3 Views XR pelvis 3+ views Imaging Routine Pelvic pain Expected: 11/21/2024, Expires: 05/23/2025 [facility] Work Phone: Comment on above: Expected: 11/21/2024 , Expires: 05/23/2025 Start: 11-21-2024 End: 11-21-2024 Patient encounter procedure 11/21/2024 1:30 PM EDT Office Visit [facility] [address] [facility] [address] [place] [address] [place] [address] [place] [address] [facility] Start: 05-23-2024 Subsequent hospital visit by physician 05/23/2024 12:59 PM EDT Hospital Encounter [facility] [address] [facility] [address] [place] [id number] Pelvic pain [facility] Comment on above: Pelvic pain Start: 04-08-2024 COVID-19 Vaccine () COVID-19 Vaccine () [facility] Start: 04-08-2024 Influenza vaccination [facility] Start: 03-02-2024 End: 01-31-2025 XR Pelvis 3 Views XR pelvis 3+ views Imaging Routine Pelvic pain Expected: 03/02/2024, Expires: 01/31/2025 [facility] Work Phone: Comment on above: Expected: 03/02/2024 , Expires: 01/31/2025 Start: 02-29-2024 End: 02-29-2024 Patient encounter procedure 02/29/2024 1:15 PM EDT Office Visit [facility] [address] [place] [address] [place] [address] [address] [place] [address] [facility] Start: 02-01-2024 End: 02-01-2024 Patient encounter procedure 02/01/2024 1:30 PM EDT Office Visit [facility] [address] [place] [address] [place] [address] [place] [address] [facility] Start: 01-28-2024 End: 12-27-2024 XR Pelvis 3 Views XR pelvis 3+ views Imaging Routine Pelvic pain Expected: 01/28/2024, Expires: 12/27/2024 [facility] Work Phone: Comment on above: Expected: 01/28/2024 , Expires: 12/27/2024 Start: 12-28-2023 End: 12-26-2024 XR Pelvis 3 Views [facility] Work Phone: Comment on above: Expected: 12/28/2023 , Expires: 12/26/2024 Once for 1 Occurrenc es starting 12/28/2023 until 12/28/2023 Start: 05-02-2024 Subsequent hospital visit by physician 12/08/2023 Hospital Encounter [facility] [place] [address] [place] [address] [place] [address] [place] [address] [facility] [place] Start: 11-30-2023 End: 11-29-2024 XR Pelvis 3 Views [facility] Work Phone: Comment on above: Expected: 11/30/2023 , Expires: 11/29/2024 Once for 1 Occurrenc es starting 11/30/2023 until 11/30/2023 Start: 04-08-2023 COVID-19 Vaccine ( season) COVID-19 Vaccine ( season) [facility] Start: 12-23-2022 ambulatory Ambulatory Facility:[facility] 1 Start: 02-19-2022 Creatinine measurement Creatinine mo nitoring [facility] Phone: Start: 02-19-2022 Potassium monitoring Potassium monit oring [facility] Phone: Start: 04-08-2021 Influenza vaccination Flu vaccine (# 1) [facility] Phone: Start: 2020 Screening for malign ant neoplasm of colon Colon cancer screen colonoscopy [facility] Phone: Start: 1994 DTaP/Tdap/Td vaccine (1 - Tdap) DTaP/Tdap/Td vaccine (1 - Tdap) [facility] Phone: Start: 1994 Hepatitis B Vaccines (1 of 3 - 19+ 3-dose series) Hepatitis B Vaccines (1 of 3 - 19+ 3-dose series) [facility] Start: 1993 Diabetes mellitus screening Diabetes Screening [facility] Start: 1993 Hepatitis C screening Hepatitis C Sc reening [facility] Start: 1990 HIV screening HIV screen [facility] Work Phone: Start: 1987 COVID-19 Vaccine (1) COVID-19 Vaccin e (1) [facility] Work Phone: Start: 1985 Lipid panel Lipid screen [facility] Work Phone: Start: 1981 Pneumococcal Vaccine : Pediatrics (0 to 5 Years) and At-Risk Patients (6 to 64 Years) (1 of 2 - PCV) Pneumococcal Vaccine: Pediatrics (0 to 5 Years) and At-Risk Patients (6 to 64 Years) (1 of 2 - PCV) [facility] Start: 1976 MMR Vaccines (1 of 1 - Standard series) MMR Vaccines (1 of 1 - Standard series) [facility] Start: 1975 Hepatitis C screening Hepatitis C sc reen [facility] Work Phone: Start: 1975 HIV screening HIV Screening [facility] Start: 1975 Lipid panel Lipid Panel [facility] Start: 1975 Screening for malign ant neoplasm of colon [facility] Start: 1975 Yearly Adult Physical Yearly Adult P hysical [facility] End: 12-08-2023 Continuous Pulse oximetry, In Phase 1 Continuous Pulse oximetry, In Phase 1 Respiratory Care Routine Continuous until discontinued starting 12/08/2023 [facility] Work Phone: Comment on above: Continuous until dis continued starting 12/08/2023 Electrocardiogram, 12-lead PRN ACS symptoms Electrocardiogram, 12-lead PRN ACS symptoms ECG Routine As needed until discontinued starting 12/08/2023, 1 completed [facility] Work Phone: Comment on above: As needed until disc ontinued starting 12/08/2023, 1 completed Electrocardiogram, 12-lead PRN ACS symptoms Electrocardiogram, 12-lead PRN ACS symptoms ECG Routine 12/12/2023 12:34 PM EDT [facility] Work Phone: Optx ant pelvic bone fx&/dislc int fixj if pfr Open Reduction Internal Fixation Pelvis Pelvic pain Virtual [facility] [place] End: 12-09-2023 Urethral Catheter Removal Urethral Catheter Removal Procedures Routine Once for 1 Occurrences starting 12/09/2023 until 12/09/2023 [facility] Work Phone: Comment on above: Once for 1 Occurrenc es starting 12/09/2023 until 12/09/2023 End: 12-08-2023 Verify ABO/Rh Group Test (VERAB) [facility] Work Phone: Comment on above: STAT (Lab) for 1 Occ urrences starting 12/08/2023 until 12/08/2023 End: 05-23-2024 XR Pelvis 3 Views [facility] Work Phone: Comment on above: Once for 1 Occurrenc es starting 05/23/2024 until 05/23/2024 End: 02-01-2024 XR Pelvis 3 Views [facility] Work Phone: Comment on above: Once for 1 Occurrenc es starting 02/01/2024 until 02/01/2024 Immunizations Immunization Date Immunization Notes Care Provider Fa [facility] 09-16-2023 tetanus toxoid, reduced diphtheria toxoid, and acellular pertussis vaccine, adsorbed Adam Navarro MD Work Phone: [facility] 05-23-2019 influenza virus vaccine, unspecified formulation Adam Navarro MD Work Phone: [facility] Work Phone: 08-25-2015 tetanus and diphther ia toxoids, adsorbed, preservative free, for adult use (5 Lf of tetanus toxoid and 2 Lf of diphtheria toxoid) Adam Navarro MD Work Phone: [facility] Work Phone: 08-25-2015 tetanus toxoid, reduced diphtheria toxoid, and acellular pertussis vaccine, adsorbed [facility] Other Payers Date Payer Category Payer Self-pay 2023 Unknown [id number] 2020 Blue Cross Blue Shie ld Managed Care [facility] [id number] 2020 Unknown [id number]. 1.13.647. 2.7.3.383562.315 1975 Unknown [id number] 2.16.840.1.479083.3.579. 2.182 1975 Unknown [id number] 2.16.840.1.750314.3.579. 2.182 1975 Unknown [id number] 2.16.840.1.830640.3.579. 2.593 1975 Unknown [id number] 2.16.840.1.051625.3.579. 2.593 1975 Unknown [id number] 2.16.840.1.254358.3.579. 2.593 1975 Unknown [id number] 2.16.840.1.932019.3.579. 2.593 1975 Unknown [id number] 2.16.840.1.595642.3.579. 2.593 1975 Unknown [id number] 2.16.840.1.611349.3.579. 2.593 1975 Unknown [id number] 2.16.840.1.048325.3.579. 2.593 1975 Unknown [id number] 2.16.840.1.166774.3.579. 2.593 1975 Unknown [id number] 2.16.840.1.898125.3.579. 2.593 1975 Unknown [id number] 2.16.840.1.945643.3.579. 2.593 1975 Unknown [id number] 2.16.840.1.324464.3.579. 2.593 1975 Unknown [id number] 2.16.840.1.406796.3.579. 2.593 1975 Unknown [id number] 2.16.840.1.042265.3.579. 2.727 1975 Unknown [id number] 2.16.840.1.799231.3.579. 2.1243 1975 Unknown [id number] 2.16.840.1.789708.3.579. 2.1243 1975 Unknown [id number] 2.16.840.1.296161.3.579. 2.1243 1975 Unknown [id number] 2.16.840.1.145655.3.579. 2.1244 1975 Unknown [id number] 2.16.840.1.450027.3.579. 2.124 1975 Unknown [id number] 2.16.840.1.254047.3.579. 2.124 1975 Unknown [id number] 2.16.840.1.931515.3.579. 2.1244 1975 Unknown [id number] 2.16.840.1.602819.3.579. 2.1244 1975 Unknown [id number] 2.16.840.1.853522.3.579. 2.1244 1975 Unknown [id number] 2.16.840.1.091353.3.579. 2.1244 1975 Unknown [id number] 2.16.840.1.417983.3.579. 2.196 1975 Unknown [id number] 2.16.840.1.626665.3.579. 2.196 1975 Unknown [id number] 2.16.840.1.227749.3.579. 2.196 1975 Unknown [id number] 2.16.840.1.001293.3.579. 2.196 1975 Unknown [id number] 2.16.840.1.689524.3.579. 2.196 1959 Unknown [id number] 1.2.840.505259.1.13.239. 2.7.3.191918.315 Unknown [id number] 2.16.840.1.531848.3.579. 2.531 Social History Date Type Detail Facility Start: 02-25-2021 End: 11-30-2023 Tobacco smoking status NHIS Never smoker [facility] Phone: Start: 02-25-2021 End: 11-30-2023 Tobacco use and exposure Never used [employer] Start: 1975 Sex Assigned At Not on file [facility] Phone: Start: 11-20-2023 End: 05-23-2024 Exposure to SARS-CoV-2 (event) Not sure [facility] Phone: Start: 12-08-2023 End: 12-11-2023 Sex Assigned At [facility] Start: 11-30-2023 End: 02-01-2024 Alcoholic beverage intake Ex-drinker (finding) [facility] Work Phone: Start: 1975 Sex assigned at Male [facility] Start: 11-30-2023 Gender identity Identifies as male gender (finding) [facility] Work Phone: Start: 11-30-2023 Sexual orientation Heterosexual (finding) [facility] Work Phone: Start: 12-08-2023 End: 12-11-2023 History of Social function [facility] Has the Anywhere to Go, [employer], My Ad Box, or water eblizz threatened to shut off services in your home in past 12Mo No [facility] How often to you hav e a drink containing alcohol? Never [facility] How many standard drinks containing alcohol do you have on a typical day? Patient does not drink [facility] Work Phone: Do you feel stress - tense, restless, nervous, or anxious, or unable to sleep at night because your mind is troubled all the time - these days [OSQ] Not at all [facility] Work Phone: (I/We) worried kiki er (my/our) food would run out before (I/we) got money to buy more. Never true [facility] Work Phone: Medical Equipment Procedure Code Equipment Code Equipment Origin al Text Equipment Identifier Rudy Manzano, Morgan marrero 5.5cc - [id number] - [id number] Start: 12-08-2023 Power Mix, Mini Ingite, c - [id number] - [id number], [id number] FDA Start: 12-08-2023 Bme Elite Implan t Kit [id number] [id number] Start: 12-08-2023 Comment on above: Description: Per ibis morgan 5/ Screw, Cortical, Self-Tapping, 3.5 X 32 Mm, Stainless Steel - [id number] Start: 12-08-2023 Screw, 7.3mm Can n, Full Thread, 165mm, Sterile - [id number] Start: 12-08-2023 Screw, 7.3mm Can n, Full Thread, 145mm, Sterile - [id number] Start: 12-08-2023 Screw, Cortical, Self-Tapping, 3.5 X 36 Mm, Stainless Steel - [id number] Start: 12-08-2023 Plate, 3.5 X 6h Pubic Symphysis - Sna - [id number] Start: 12-08-2023 Screw, Cortical, Self-Tapping, 3.5 X 30 Mm, Stainless Steel - Sna - [id number] Start: 12-08-2023 Screw, Cortical, Self-Tapping, 3.5 X 24 Mm, Stainless Steel - Sna - [id number] Start: 12-08-2023 Screw Cortex 3.5 X 70 - Sna - [id number] Start: 12-08-2023 Screw, Cortical, Self-Tapping, 3.5 X 34 Mm, Stainless Steel - Sna - [id number] Start: 12-08-2023 Screw, Cortical, Self-Tapping, 3.5 X 75 Mm, Stainless Steel - Sna - [id number] Start: 12-08-2023 Washer, F/Large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
--- NOTE | 2024-08-29 21:31 | ED.GENADUL1 ---
HPI HPI - General Adult General Chief complaint: Headache Stated complaint: HEADACHE, TEMP Time Seen by Provider: 08/29/24 21:17 Source: patient Mode of arrival: walk-in Limitations: no limitations History of Present Illness HPI narrative: 49-year-old male presents to the emergency department for a headache. It started at noon today after getting home from the CT myelogram. He has Percocet at home but did not take any. He states he checked his temperature on his forehead and it was 102 degrees but 10 minutes later when he arrived here we checked it orally and he did not have a fever. His temperature at triage was 98.3 degrees. No localized weakness. The headache has been continuous. Related Data Home Medications ?Medication ?Instructions ?Recorded ?Confirmed albuterol sulfate 90 mcg/actuation 2 inh inhalation Q3H PRN shortness 03/22/23 07/16/24 aerosol inhaler of breath or wheezing lisinopril 20 mg tablet 20 mg PO DAILY 03/22/23 08/29/24 metoprolol tartrate 25 mg tablet 25 mg PO DAILY 03/22/23 08/29/24 simvastatin 20 mg tablet 20 mg PO DAILY 03/22/23 08/29/24 sumatriptan succinate 50 mg tablet See Rx Instructions PO .COMPLEX 03/22/23 07/16/24 Glucosamine chondroitin 1 tab PO BID 08/29/24 08/29/24 cetirizine 10 mg capsule (Allergy 10 mg PO DAILY 08/29/24 08/29/24 Relief (cetirizine)) multivitamin 1 tab PO DAILY 08/29/24 08/29/24 Previous Rx's ?Medication ?Instructions ?Recorded diclofenac sodium 50 mg 50 mg PO BID PRN pain #60 tabs 02/29/24 tablet,delayed release baclofen 10 mg tablet 10 mg PO TID PRN muscle spasm #90 04/26/24 tabs naloxone 4 mg/actuation nasal 4 mg intranasal Q3M PRN opioid 07/04/24 spray (Narcan) overdose #2 ea oxycodone-acetaminophen 5 mg-325 1 tab PO TID PRN pain #90 tabs 07/30/24 mg tablet (Percocet) Allergies Allergy/AdvReac Type Severity Reaction Status Date / Time tramadol Allergy Nausea Verified 08/29/24 21:22 nalbuphine (From Nubain) AdvReac Unknown Nausea Verified 08/29/24 21:22 Opioid HPI Opioid Management Most Recent Opioid Data: Last Pain Scale 9 08/29/24 23:40 08/29/24 Last Pain Assessment 08/29/24 09:45 Review of Systems ROS Narrative A ten point review of systems is negative except as noted above. [facility] Medical History (Updated 08/30/24 @ 00:34 by Wing Garcia MD) Lumbar back pain ?M54.50 - Low back pain, unspecified (ICD-10) High cholesterol ?E78.00 - Pure hypercholesterolemia, unspecified (ICD-10) Glenoid cavity and neck of scapula fracture ?S42.143A - Displaced fracture of glenoid cavity of scapula, unspecified shoulder, initial encounter for closed fracture (ICD-10) ?S42.153A - Displaced fracture of neck of scapula, unspecified shoulder, initial encounter for closed fracture (ICD-10) Subdural hematoma ?S06.5XAA - Traumatic subdural hemorrhage with loss of consciousness status unknown, initial encounter (ICD-10) Osteoarthritis ?M19.90 - Unspecified osteoarthritis, unspecified site (ICD-10) Asthma ?J45.909 - Unspecified asthma, uncomplicated (ICD-10) HTN (hypertension) ?I10 - Essential (primary) hypertension (ICD-10) Surgical History (Updated 08/29/24 @ 10:02 by Sherri Vasques) S/P ORIF (open reduction internal fixation) fracture ?Z98.890 - Other specified postprocedural states (ICD-10) ?Z87.81 - Personal history of (healed) traumatic fracture (ICD-10) History of facial surgery ?Z98.890 - Other specified postprocedural states (ICD-10) Hx of colonoscopy ?Z98.890 - Other specified postprocedural states (ICD-10) S/P correction of deviated nasal septum ?Z98.890 - Other specified postprocedural states (ICD-10) Social History Little interest or pleasure in doing things: not at all Feeling down, depressed, or hopeless: not at all Exam Narrative Exam Narrative: Nurses note and vital signs reviewed and patient is not hypoxic. General: The patient appears in no apparent distress. Skin: Warm, dry, no pallor noted. There is no rash noted. Head: Normocephalic, atraumatic; neck supple, no nuchal rigidity Eye: Normal conjunctiva, no drainage Ears, Nose, Mouth, and Throat: oral mucosa is moist. Nares patent. Cardiovascular: Regular Rate and Rhythm Respiratory: Patient is in no distress, no accessory muscle use, lungs are clear to auscultation, no wheezing, rales or rhonchi Back: non-tender, injection site is healing well, no drainage or erythema or bleeding. GI: Soft and nontender Musculoskeletal: The patient has no evidence of calf tenderness, no pitting edema, symmetrical pulses noted bilaterally Neurological: A&O, normal speech Psychiatric: Cooperative Constitutional Vital Signs, click to edit/add: Last Vital Signs Temp 98.3 F 08/29/24 21:18 Pulse 80 08/30/24 00:25 Resp 14 08/30/24 00:25 BP 159/87 H 08/30/24 00:25 Pulse Ox 97 08/30/24 00:25 O2 Del Method Room Air 08/30/24 00:25 Course Vital Signs Vital signs: Vital Signs Temperature 98.3 F 08/29/24 21:18 Pulse Rate 113 H 08/29/24 21:18 Respiratory Rate 18 08/29/24 21:18 Blood Pressure 157/93 H 08/29/24 21:18 Pulse Oximetry 98 08/29/24 21:18 Oxygen Delivery Method Room Air 08/29/24 21:18 Temperature 98.3 F 08/29/24 21:18 Pulse Rate 80 08/30/24 00:25 Respiratory Rate 14 08/30/24 00:25 Blood Pressure 159/87 H 08/30/24 00:25 Pulse Oximetry 97 08/30/24 00:25 Oxygen Delivery Method Room Air 08/30/24 00:25 Medical Decision Making MDM Narrative Medical decision making narrative: My clinical impression is that he has a spinal headache. He was given IV caffeine as well as several doses of IV pain medication. He was offered admission the hospital but does not feel that he needs it and he states he is comfortable going home. His is driving him home. He has oxycodone at home for pain. Treatment diagnosis and follow-up were discussed with the patient. I have no clinical suspicion of meningitis in this patient. Differential Diagnosis Differential Diagnosis: Spinal headache, meningitis Lab Data Lab results reviewed: Yes I reviewed the patient's lab results Labs: Lab Results 08/29/24 Range/Units 21:44 WBC 11.3 H (4.0-11.0) 10^3/uL RBC 5.20 (4.70-6.10) 10^6/uL Hgb 12.9 L (14.0-18.0) g/dL Hct 40.8 L (42.0-54.0) % MCV 78.5 L (80.0-94.0) fL MCH 24.8 L (25.9-34.0) pg MCHC 31.6 (29.9-35.2) g/dL RDW 14.5 (11.0-15.0) % Plt Count 303 (150-450) 10^3/uL MPV 9.6 (9.5-13.5) fL Neut % (Auto) 79.5 H (43.0-75.0) % Lymph % (Auto) 11.9 L (20.5-60.0) % [place] % (Auto) 6.4 (1.7-12.0) % Eos % (Auto) 1.2 (0.9-7.0) % Baso % (Auto) 0.6 (0.2-2.0) % Neut # (Auto) 9.0 H (1.4-6.5) 10^3/uL Lymph # (Auto) 1.4 (1.2-3.8) 10^3/uL [place] # (Auto) 0.7 (0.3-0.8) 10^3/uL Eos # (Auto) 0.1 (0.0-0.7) 10^3/uL Baso # (Auto) 0.1 (0.0-0.1) 10^3/uL Abs Immat Gran (auto) 0.05 H (0.00-0.03) 10^3/uL Imm/Tot Granulo (auto) 0.4 (0.0-0.5) % Sodium 138 (136-145) mmol/L Potassium 4.0 (3.5-5.1) mmol/L Chloride 102 (98-107) mmol/L Carbon Dioxide 27.9 (21.0-32.0) mmol/L Anion Gap 12.1 BUN 10.0 (7.0-18.0) mg/dL Creatinine 1.20 (0.70-1.30) mg/dL Est GFR ( Amer) >60 (>=60 mL/min/1.73m^2) Est GFR (Non-Af Amer) >60 (>=60 mL/min/1.73m^2) BUN/Creatinine Ratio 8.3 Glucose 113 H (74-106) mg/dL Calcium 8.7 (8.5-10.1) mg/dL Discharge Plan Discharge Chief Complaint: Headache Clinical Impression: Spinal headache Patient Disposition: Home, Self-Care Time of Disposition Decision: 00:34 Condition: Good Mode of Transportation: Private Vehicle Prescriptions / Home Meds: No Action albuterol sulfate 90 mcg/actuation HFA aerosol inhaler 2 inh inhalation Q3H PRN (Reason: shortness of breath or wheezing) sumatriptan succinate 50 mg tablet See Rx Instructions .ROUTE .COMPLEX Rx Instructions: take 1 tab at onset of headache; if no relief may repeat 1 tab after at least 2 hrs; max = 4 tabs/24 hr lisinopril 20 mg tablet 20 mg PO DAILY metoprolol tartrate 25 mg tablet 25 mg PO DAILY simvastatin 20 mg tablet 20 mg PO DAILY baclofen 10 mg tablet 10 mg PO TID PRN (Reason: muscle spasm) Qty: 90 2RF naloxone [Narcan] 4 mg/actuation spray,non-aerosol 4 mg intranasal Q3M PRN (Reason: opioid overdose) Qty: 2 0RF Rx Instructions: spray 1 dose into ONE nostril; alternate nostrils w each dose until help arrives oxycodone-acetaminophen [Percocet] 5-325 mg tablet 1 tab PO TID PRN (Reason: pain) Qty: 90 0RF diclofenac sodium 50 mg tablet,delayed release (DR/EC) 50 mg PO BID PRN (Reason: pain) Qty: 60 2RF multivitamin Tablet 1 tab PO DAILY Glucosamine chondroitin 1 tab PO BID Allergy Relief (cetirizine) 10 mg capsule 10 mg PO DAILY Print Language: Algerian Instructions: Acute Headache (ED) Referrals: Jaymie Haas MD [Primary Care Provider] - 1 week
[2024-08-29] MEDS: MORPHINE SULFATE 4 MG/ML VIAL IV ×2 (21:57→22:26)
[2024-08-29] MEDS: 0.9 % SODIUM CHLORIDE 1,000 ML 1000 ML IV (21:57)
[2024-08-29 22:00] LABS: Basophils Absolute Auto 0.1 10^3/uL (0.0-0.1); Basophils Percent Auto 0.6 % (0.2-2.0); Eosinophils Absolute Auto 0.1 10^3/uL (0.0-0.7); Eosinophils Percent Auto 1.2 % (0.9-7.0); Hematocrit 40.8 % (42.0-54.0); Hemoglobin 12.9 g/dL (14.0-18.0); Immature Granulocytes Abs Auto 0.05 10^3/uL (0.00-0.03); Immature Granulocytes Pct Auto 0.4 % (0.0-0.5); Lymphocytes Absolute Auto 1.4 10^3/uL (1.2-3.8); Lymphocytes Percent Auto 11.9 % (20.5-60.0); Mean Corpuscular HGB Conc 31.6 g/dL (29.9-35.2); Mean Corpuscular Hemoglobin 24.8 pg (25.9-34.0); Mean Corpuscular Volume 78.5 fL (80.0-94.0); Mean Platelet Volume 9.6 fL (9.5-13.5); Monocytes Absolute Auto 0.7 10^3/uL (0.3-0.8); Monocytes Percent Auto 6.4 % (1.7-12.0); Neutrophils Percent Auto 79.5 % (43.0-75.0); Platelet Count 303 10^3/uL (150-450); Red Cell Distribution Width 14.5 % (11.0-15.0); White Blood Count 11.3 10^3/uL (4.0-11.0)
[2024-08-29 22:11] LABS: Anion Gap 12.1; BUN Creatinine Ratio 8.3; Calcium 8.7 mg/dL (8.5-10.1); Carbon Dioxide 27.9 mmol/L (21.0-32.0); Chloride 102 mmol/L (98-107); Estimated GFR (African America >60 (>=60 mL/min/1.73m^2); Estimated GFR (Non-African Ame >60 (>=60 mL/min/1.73m^2); Glucose 113 mg/dL (74-106); Sodium 138 mmol/L (136-145)
[2024-08-29] MEDS: CAFFEINE CITRATE 300 MG in DEXTROSE 5 % IN WATER 250 ML 530 MG IV (22:14)
[2024-08-29] MEDS: HYDROMORPHONE HCL 1 MG/ML CARTRIDGE IV ×2 (23:12→23:40)
[2024-08-29] MEDS: ONDANSETRON PF 4 MG/2 ML VIAL IV (23:41)
[2024-08-29 23:48] VITALS: BP 154/95
--- NOTE | 2024-08-29 23:52 | PC.NURSE ---
Pt states that he feels high and sleepy, from the dilaudid, but pain is not yet down to a tolerable level. Currently it is a 7. Zofran given for nausea that pt had after the second dose of dilaudid. No emesis. Less nauseated after receiving the Zofran.
--- NOTE | 2024-08-30 00:22 | PC.NURSE ---
at 0014, Dr Garcia contacted for continued c/o pain that is almost tolerable per pt report. Received VO to give 1 mg dilaudid IVP. VR.
[2024-08-30 00:25] VITALS: BP 159/87; PULSE 80; O2SAT 97
[2024-08-30] MEDS: HYDROMORPHONE HCL 1 MG/ML CARTRIDGE IV (00:25)
[2024-08-30 00:57] VITALS: BP 122/69; PULSE 84; O2SAT 98
== END 2024-08-30 01:00 | disposition home or self-care (01) ==
PROVIDERS: Emergency Provider Emergency Medicine; PCP Family Medicine
DX: R51.9 Headache, unspecified (principal)
CPT/HCPCS: 36415; 80048; 85025; 96365; 96375; 96376; 99284; J0706; J1171; J2270; J2405

== ENCOUNTER 2024-11-30 09:04 | Outpatient (OUT) | payer BC, SELFPAY ==
[2024-11-30 09:36] LABS: Basophils Absolute Auto 0.1 10^3/uL (0.0-0.1); Basophils Percent Auto 0.8 % (0.2-2.0); Eosinophils Absolute Auto 0.3 10^3/uL (0.0-0.7); Eosinophils Percent Auto 3.5 % (0.9-7.0); Hematocrit 37.7 % (42.0-54.0); Hemoglobin 11.8 g/dL (14.0-18.0); Immature Granulocytes Abs Auto 0.02 10^3/uL (0.00-0.03); Immature Granulocytes Pct Auto 0.3 % (0.0-0.5); Lymphocytes Absolute Auto 1.8 10^3/uL (1.2-3.8); Lymphocytes Percent Auto 24.7 % (20.5-60.0); Mean Corpuscular HGB Conc 31.3 g/dL (29.9-35.2); Mean Corpuscular Hemoglobin 24.7 pg (25.9-34.0); Monocytes Absolute Auto 0.6 10^3/uL (0.3-0.8); Monocytes Percent Auto 8.4 % (1.7-12.0); Neutrophils Absolute Auto 4.5 10^3/uL (1.4-6.5); Neutrophils Percent Auto 62.3 % (43.0-75.0); Platelet Count 302 10^3/uL (150-450); Red Blood Count 4.77 10^6/uL (4.70-6.10); Red Cell Distribution Width 14.3 % (11.0-15.0); White Blood Count 7.2 10^3/uL (4.0-11.0)
[2024-11-30 10:39] LABS: Alanine Aminotransferase 19 U/L (16-63); Albumin Globulin Ratio 1.2; Albumin Level 3.5 g/dL (3.4-5.0); Alkaline Phosphatase 61 U/L (46-116); Anion Gap 10.5; Aspartate Amino Transferase 16 U/L (15-37); BUN Creatinine Ratio 10.8; Bilirubin Total 0.4 mg/dL (0.2-1.0); Calcium 8.5 mg/dL (8.5-10.1); Carbon Dioxide 28.9 mmol/L (21.0-32.0); Chloride 106 mmol/L (98-107); Cholesterol 129 mg/dL (<=200); Estimated GFR (African America >60 (>=60 mL/min/1.73m^2); Estimated GFR (Non-African Ame >60 (>=60 mL/min/1.73m^2); Glucose 92 mg/dL (74-106); HDL Cholesterol 32 mg/dL (40-60); Potassium 4.4 mmol/L (3.5-5.1); Sodium 141 mmol/L (136-145); Total Protein 6.5 g/dL (6.4-8.2); Triglycerides 85 mg/dL (<=150)
[2024-11-30 10:51] LABS: Prostate Specific Antigen Scrn 2.52 ng/mL (<=4.00)
== END 2024-11-30 09:05 | disposition home or self-care (01) ==
LOC: LAB 09:06
PROVIDERS: PCP Family Medicine; Visit Provider Family Medicine
DX: Z00.00 Encounter for general adult medical examination without abnormal findings (principal); Z80.42 Family history of malignant neoplasm of prostate; I10 Essential (primary) hypertension; Z12.5 Encounter for screening for malignant neoplasm of prostate
CPT/HCPCS: 36415; 80053; 80061; 85025; G0103

== ENCOUNTER 2024-12-05 15:00 | Outpatient (OUT) | payer BC, SELFPAY ==
--- NOTE | 2024-12-05 15:16 | PM.CN ---
Consult Note: HPI Data of Consult Patient: known to practice within the last 3 years Consult date: 12/05/24 Requesting Physician: Cheryl Arango NP Primary Care Provider: Jaymie Haas MD Consult Narrative Reason for consult: low back pain Narrative: 49yom who presents for assessment. continues to use diclofenac, baclofen, percocet and gabapentin. denies adverse med side effects. Pt has been engaged in working out and weight loss efforts. Pain today 4/10, occasionally increasing to 8/10 with standing, walking, activity, sleep. Pain improved with sitting and lying. Prior CT of lumbar spine revealed facet arthropathy and lumbar DDD at L5-S1. continues to f/u with NS for consideration of spinal cord sitm vs NS intervention, pt was not able to attend last visit due to work schedule but has intentions of rescheduling. cc:: CC: Cheryl Arango NP Review of Systems ROS Status of ROS 10 or more systems reviewed and unremarkable except as noted in history and below Musculoskeletal Reports: back pain and joint pain PFSH PFSH Medical History (Updated 08/30/24 @ 00:34 by Wing Garcia MD) Lumbar back pain ?M54.50 - Low back pain, unspecified (ICD-10) High cholesterol ?E78.00 - Pure hypercholesterolemia, unspecified (ICD-10) Glenoid cavity and neck of scapula fracture ?S42.143A - Displaced fracture of glenoid cavity of scapula, unspecified shoulder, initial encounter for closed fracture (ICD-10) ?S42.153A - Displaced fracture of neck of scapula, unspecified shoulder, initial encounter for closed fracture (ICD-10) Subdural hematoma ?S06.5XAA - Traumatic subdural hemorrhage with loss of consciousness status unknown, initial encounter (ICD-10) Osteoarthritis ?M19.90 - Unspecified osteoarthritis, unspecified site (ICD-10) Asthma ?J45.909 - Unspecified asthma, uncomplicated (ICD-10) HTN (hypertension) ?I10 - Essential (primary) hypertension (ICD-10) Surgical History (Updated 08/29/24 @ 10:02 by Sherri Vasques) S/P ORIF (open reduction internal fixation) fracture ?Z98.890 - Other specified postprocedural states (ICD-10) ?Z87.81 - Personal history of (healed) traumatic fracture (ICD-10) History of facial surgery ?Z98.890 - Other specified postprocedural states (ICD-10) Hx of colonoscopy ?Z98.890 - Other specified postprocedural states (ICD-10) S/P correction of deviated nasal septum ?Z98.890 - Other specified postprocedural states (ICD-10) Social History Little interest or pleasure in doing things: not at all Feeling down, depressed, or hopeless: not at all Meds Home Medications and Allergies Home Medications ?Medication ?Instructions ?Recorded ?Confirmed ?Type albuterol sulfate 90 mcg/actuation 2 inh inhalation Q3H PRN shortness 03/22/23 07/16/24 History aerosol inhaler of breath or wheezing lisinopril 20 mg tablet 20 mg PO DAILY 03/22/23 08/29/24 History metoprolol tartrate 25 mg tablet 25 mg PO DAILY 03/22/23 08/29/24 History simvastatin 20 mg tablet 20 mg PO DAILY 03/22/23 08/29/24 History sumatriptan succinate 50 mg tablet See Rx Instructions PO .COMPLEX 03/22/23 07/16/24 History diclofenac sodium 50 mg 50 mg PO BID PRN pain #60 tabs 02/29/24 08/29/24 Rx tablet,delayed release baclofen 10 mg tablet 10 mg PO TID PRN muscle spasm #90 04/26/24 08/29/24 Rx tabs naloxone 4 mg/actuation nasal 4 mg intranasal Q3M PRN opioid 07/04/24 07/16/24 Rx spray (Narcan) overdose #2 ea oxycodone-acetaminophen 5 mg-325 1 tab PO TID PRN pain #90 tabs 07/30/24 08/29/24 Rx mg tablet (Percocet) Glucosamine chondroitin 1 tab PO BID 08/29/24 08/29/24 History cetirizine 10 mg capsule (Allergy 10 mg PO DAILY 08/29/24 08/29/24 History Relief (cetirizine)) multivitamin 1 tab PO DAILY 08/29/24 08/29/24 History gabapentin 600 mg tablet 600 mg PO BID #60 tabs 10/01/24 Rx oxycodone-acetaminophen 5 mg-325 1 tab PO TID PRN pain #90 tabs 10/01/24 Rx mg tablet (Percocet) baclofen 10 mg tablet 10 mg PO TID #90 tabs 10/30/24 Rx oxycodone-acetaminophen 5 mg-325 1 tab PO TID PRN pain #90 tabs 10/30/24 Rx mg tablet (Percocet) oxycodone-acetaminophen 5 mg-325 1 tab PO TID PRN pain #90 tabs 11/28/24 Rx mg tablet (Percocet) gabapentin 600 mg tablet 600 mg PO BID #60 tabs 12/05/24 Rx Allergies Allergy/AdvReac Type Severity Reaction Status Date / Time tramadol Allergy Nausea Verified 08/29/24 21:22 nalbuphine (From Nubain) AdvReac Unknown Nausea Verified 08/29/24 21:22 Exam Constitutional Documenting provider has reviewed patient's vital signs: yes Common normals: no apparent distress, oriented x3, healthy appearing, alert and well nourished General appearance: cooperative HENMT Common normals: normocephalic, hearing grossly normal bilaterally and moist oral mucous membranes Head and scalp: normocephalic Eye Common normals: PERRL Pupil: PERRL Neck & C-Spine Common normals: full ROM General: normal visual inspection Chest Common normals: inspection of chest normal Respiratory Common normals: normal respiratory effort, no retractions and no use of accessory muscles Back & Pelvis Lumbar spine/lower back: ROM limited, pain with ROM, paraspinal muscle tenderness and straight leg raise negative bilaterally; no lumbar spinal tenderness and no paraspinal muscle spasm Sacroiliac joints: SI joint(s) abnormal Other: positive facet loading L2-S1 sensation intact BLE strength 5/5 in BLE left > right ivy(patricks), gaenslens, thigh thrust, compression test Neuro Common normals: oriented x3, CN's II-XII intact bilaterally, moves all extremities, no focal motor deficits, no sensory deficits noted and deep tendon reflexes 2+ bilaterally Sensorium/orientation: alert Motor exam: strength 5/5 throughout and no movement abnormalities noted Psych Common normals: mental status grossly normal, thought process normal, cooperative, affect normal, speech normal and activity/motor behavior normal Speech: normal speech Thought process: normal thought process Assessment and Plan Assessment and Plan (1) Lumbar spondylosis: (2) Lumbar degenerative disc disease: (3) Chronic prescription opiate use: (4) Muscle spasm: (5) Sacroiliitis: (6) Chronic pain syndrome: Plan continue current medications, risks vs benefits reviewed update UDS today continue HEP as tolerated continue f/u with NS Dr Loco for consideration of surgical intervention vs spinal cord stimulation f/u based on NS recommendations or 3 months for medication monitoring
== END 2024-12-05 15:01 | disposition home or self-care (01) ==
LOC: PM 12-06 07:08
PROVIDERS: PCP Family Medicine; Visit Provider Nurse Practitioner
DX: M47.816 Spondylosis without myelopathy or radiculopathy, lumbar region (principal); M51.369 Other intervertebral disc degeneration, lumbar region without mention of lumbar back pain or lower extremity pain; Z79.891 Long term (current) use of opiate analgesic; M62.838 Other muscle spasm; M46.1 Sacroiliitis, not elsewhere classified; G89.4 Chronic pain syndrome
CPT/HCPCS: G0463

== ENCOUNTER 2025-02-14 12:45 | Outpatient (OUT) | payer BC, SELFPAY ==
--- NOTE | 2025-02-14 13:01 | PM.CN ---
Consult Note: HPI Data of Consult Patient: known to practice within the last 3 years Consult date: 02/14/25 Requesting Physician: Cheryl Arango NP Primary Care Provider: Jaymie Haas MD Consult Narrative Reason for consult: low back pain Narrative: 49yom who presents for assessment. continues to use diclofenac, baclofen, percocet and gabapentin. denies adverse med side effects. Pt has been engaged in working out and weight loss efforts. Pain today 4/10, occasionally increasing to 8/10 with standing, walking, activity, sleep. Pain improved with sitting and lying. Prior CT of lumbar spine revealed facet arthropathy and lumbar DDD at L5-S1. continues to f/u with NS for consideration of spinal cord sitm vs NS intervention, pt was not able to attend last visit due to work schedule but has intentions of rescheduling. since last visit has noticed increase in right shoulder pain, hx of numerous shoulder surgeries per pt, not currently following with anyone. cc:: CC: Cheryl Arango NP Review of Systems ROS Status of ROS 10 or more systems reviewed and unremarkable except as noted in history and below Musculoskeletal Reports: back pain and joint pain PFSH PFS Medical History (Updated 02/14/25 @ 13:13 by Cheryl Arango NP) Lumbar back pain ?M54.50 - Low back pain, unspecified (ICD-10) High cholesterol ?E78.00 - Pure hypercholesterolemia, unspecified (ICD-10) Glenoid cavity and neck of scapula fracture ?S42.143A - Displaced fracture of glenoid cavity of scapula, unspecified shoulder, initial encounter for closed fracture (ICD-10) ?S42.153A - Displaced fracture of neck of scapula, unspecified shoulder, initial encounter for closed fracture (ICD-10) Subdural hematoma ?S06.5XAA - Traumatic subdural hemorrhage with loss of consciousness status unknown, initial encounter (ICD-10) Osteoarthritis ?M19.90 - Unspecified osteoarthritis, unspecified site (ICD-10) Asthma ?J45.909 - Unspecified asthma, uncomplicated (ICD-10) HTN (hypertension) ?I10 - Essential (primary) hypertension (ICD-10) Surgical History (Updated 08/29/24 @ 10:02 by Sherri Vasques) S/P ORIF (open reduction internal fixation) fracture ?Z98.890 - Other specified postprocedural states (ICD-10) ?Z87.81 - Personal history of (healed) traumatic fracture (ICD-10) History of facial surgery ?Z98.890 - Other specified postprocedural states (ICD-10) Hx of colonoscopy ?Z98.890 - Other specified postprocedural states (ICD-10) S/P correction of deviated nasal septum ?Z98.890 - Other specified postprocedural states (ICD-10) Social History Little interest or pleasure in doing things: not at all Feeling down, depressed, or hopeless: not at all Meds Home Medications and Allergies Home Medications ?Medication ?Instructions ?Recorded ?Confirmed ?Type albuterol sulfate 90 mcg/actuation 2 inh inhalation Q3H PRN shortness 03/22/23 07/16/24 History aerosol inhaler of breath or wheezing lisinopril 20 mg tablet 20 mg PO DAILY 03/22/23 08/29/24 History metoprolol tartrate 25 mg tablet 25 mg PO DAILY 03/22/23 08/29/24 History simvastatin 20 mg tablet 20 mg PO DAILY 03/22/23 08/29/24 History sumatriptan succinate 50 mg tablet See Rx Instructions PO .COMPLEX 03/22/23 07/16/24 History diclofenac sodium 50 mg 50 mg PO BID PRN pain #60 tabs 02/29/24 08/29/24 Rx tablet,delayed release baclofen 10 mg tablet 10 mg PO TID PRN muscle spasm #90 04/26/24 08/29/24 Rx tabs naloxone 4 mg/actuation nasal 4 mg intranasal Q3M PRN opioid 07/04/24 07/16/24 Rx spray (Narcan) overdose #2 ea Glucosamine chondroitin 1 tab PO BID 08/29/24 08/29/24 History cetirizine 10 mg capsule (Allergy 10 mg PO DAILY 08/29/24 08/29/24 History Relief (cetirizine)) multivitamin 1 tab PO DAILY 08/29/24 08/29/24 History gabapentin 600 mg tablet 600 mg PO BID #60 tabs 12/05/24 Rx gabapentin 600 mg tablet 600 mg PO BID #60 tabs 01/02/25 Rx oxycodone-acetaminophen 5 mg-325 1 tab PO TID PRN pain #90 tabs 01/02/25 Rx mg tablet (Percocet) gabapentin 600 mg tablet 600 mg PO BID #60 tabs 01/28/25 Rx oxycodone-acetaminophen 5 mg-325 1 tab PO TID PRN pain #90 tabs 01/28/25 Rx mg tablet (Percocet) Allergies Allergy/AdvReac Type Severity Reaction Status Date / Time tramadol Allergy Nausea Verified 08/29/24 21:22 nalbuphine (From Nubain) AdvReac Unknown Nausea Verified 08/29/24 21:22 Exam Constitutional Documenting provider has reviewed patient's vital signs: yes Common normals: no apparent distress, oriented x3, healthy appearing, alert and well nourished General appearance: cooperative HENMT Common normals: normocephalic, hearing grossly normal bilaterally and moist oral mucous membranes Head and scalp: normocephalic Eye Common normals: PERRL Pupil: PERRL Neck & C-Spine Common normals: full ROM General: normal visual inspection Chest Common normals: inspection of chest normal Respiratory Common normals: normal respiratory effort, no retractions and no use of accessory muscles Back & Pelvis Lumbar spine/lower back: ROM limited, pain with ROM, paraspinal muscle tenderness and straight leg raise negative bilaterally; no lumbar spinal tenderness and no paraspinal muscle spasm Sacroiliac joints: SI joint(s) abnormal Other: positive facet loading L2-S1 sensation intact BLE strength 5/5 in BLE left > right ivy(patricks), gaenslens, thigh thrust, compression test Extremity Right upper extremity: shoulder joint Other: positive empty can and posterior liftoff, increased pain in right AC joint with crossbody adduction. limited ROM with overhead reach Neuro Common normals: oriented x3, CN's II-XII intact bilaterally, moves all extremities, no focal motor deficits, no sensory deficits noted and deep tendon reflexes 2+ bilaterally Sensorium/orientation: alert Motor exam: strength 5/5 throughout and no movement abnormalities noted Psych Common normals: mental status grossly normal, thought process normal, cooperative, affect normal, speech normal and activity/motor behavior normal Speech: normal speech Thought process: normal thought process Assessment and Plan Assessment and Plan (1) Chronic right shoulder pain: (2) Lumbar spondylosis: (3) Lumbar degenerative disc disease: (4) Chronic prescription opiate use: (5) Muscle spasm: (6) Sacroiliitis: (7) Chronic pain syndrome: Plan continue current medications, risks vs benefits reviewed. pt encouraged to decrease percocet usage to BID to TID PRN moderate to severe pain continue HEP as tolerated continue f/u with NS Dr Loco for consideration of surgical intervention vs spinal cord stimulation, pt reports he's been playing phone tag with their office update right shoulder xray to assess OA, based on results will proceed with right shoulder injection with Dr Clark
--- OUTSIDE RECORDS SUMMARY | 2025-02-14 15:15 | XMS_ITS | Encounter Summary ---
Author Organization [facility] Address [address] [place] [address] Care Team Providers Care Veterans Contact Representative Name Role Phone Jaymie Haas MD Primary Care Provider [phone] Rolo Thornton DO Unavailable [phone] Reason for Visit * Reason Comments Sinusitis 1 month navjot Encounter Details Date Type Department Care Team (Late st Contact Info) Description 02/14/2025 3:15 PM EDT Office Visit [facility] [address] [place] [address] Rolo Thornton, DO [address] [place], [place] [id number] History of facial trauma (Primary Dx); Nasal septal deviation; Nasal valve collapse; Chronic sinusitis, unspecified location Social History Tobacco Use Types Packs/Day Years Used Date Smoking Tobacco: Never Smokeless Tobacco: Never Tobacco Cessation:Counseling Given: Not Answered Alcohol Use Standard Drinks/Week Comments Not Currently 0 (1 standard drink = 0.6 oz pur e alcohol) Sex and Gender Information Value Date Recorded Sex Assigned at Not on file Legal Sex Male 6:44 PM EDT Gender Identity Not on file Sexual Orientation Not on file documented as of this encounter Last Filed Vital Signs Vital Sign Reading Time Taken Comments Blood Pressure - - Pulse - - Temperature - - Respiratory Rate - - Oxygen Saturation - - Inhaled Oxygen Concentration - - Weight 104 kg (230 lb) 02/14/2025 3:14 PM EDT Height 182.9 cm (6') 02/14/2025 3:14 PM EDT Body Mass Index 31.19 02/14/2025 3:14 PM EDT documented in this encounter Progress Notes * Rolo Thornton, DO - 02/14/2025 3:15 PM EDT Subjective Patient ID: Prosper Milian is a 49 y.o. male who presents for Sinusitis (1 month navjot ) Sinusitis 49-year-old white male presents today for follow-up of chronic nasal and sinus symptoms. Patient describes difficulties going on for several years. Does have a history of facial trauma resulting in open reduction and internal fixation. Has undergone nasal surgery in the past. Continues to have significant difficulties with nasal congestion and drainage. Describes excessive throat mucus and frequen t coughing and voice change in the mornings. Does use Flonase daily Does take allergy medications. Presents today for follow-up evaluation and treatment. Review of Systems Patient denies any fever. Does describe decreased ventilation of the left nasal airway compared to the right. Previous history of facial trauma. Of allergic rhinitis. Some mid facial pressure at times. The rest of his review of systems is negative Allergies as of 02/14/2025 - Reviewed 02/14/2025 Allergen Reaction Noted Nalbuphine Hives 04/09/2017 Tramadol Nausea And Vomiting 05/17/2016 Past Medical History: Diagnosis Date Asthma (HCC) 12/08/2023 Bilateral hip pain 11/30/2023 Contact with and (suspected) exposure to covid-19 08/26/2020 Family history of colon cancer requiring screening colonoscopy 08/07/2024 Fracture of left pelvis (HCC) 08/07/2024 HTN (hypertension) 12/08/2023 Hyperlipidemia 12/08/2023 Lumbar pain 11/30/2023 Obesity 12/08/2023 Sacroiliac joint dysfunction of both sides 08/07/2024 Sciatica, left side 11/20/2020 Scrotum pain 11/30/2023 Traumatic separation of pubic symphysis 08/07/2024 Current Outpatient Medications: albuterol HFA 90 mcg/act inhaler, , Disp: , Rfl: baclofen (Lioresal) 10 MG tablet, Take 10 mg by mouth in the morning and 10 mg in the evening and 10 mg before bedtime., Disp: , Rfl: cetirizine (ZyrTEC) 10 MG tablet, Take 10 mg by mouth every 12 (twelve) hours, Disp: , Rfl: cholecalciferol (Vitamin D-3) 125 MCG (5000 UT) tablet, Take 5,000 Units by mouth in the morning., Disp: , Rfl: diclofenac (Voltaren) 50 MG EC tablet, Take 50 mg by mouth in the morning and 50 mg before bedtime., Disp: , Rfl: Fluticasone Propionate (Xhance) 93 MCG/ACT Exhaler Suspension, Administer 1 puff into affected nostril(s) in the morning and 1 puff before bedtime. Samples LOT # [id number] Exp 10/2025., Disp: 16 mL, Rfl:1 gabapentin (Neurontin) 600 MG tablet, Take 600 mg by mouth in the morning and 600 mg before bedtime., Disp: , Rfl: lisinopril 20 MG tablet, Take 20 mg by mouth Daily, Disp: , Rfl: metoprolol succinate XL (Toprol-XL) 25 MG 24 hr tablet, Take 25 mg by mouth Daily, Disp: , Rfl: omeprazole (PriLOSEC) [address] capsule, Take 1 capsule (40 mg) by mouth in the morning. Take beforemeals. Do not crush or chew., Disp: 30 capsule, Rfl: 2 oxyCODONE-acetaminophen (Percocet) 5-325 MG tablet, TAKE 1 TABLET BY MOUTH THREE TIMES A DAY NEEDED FOR PAIN, Disp: , Rfl: sildenafil (Viagra) 50 MG tablet, , Disp: , Rfl: simvastatin (Zocor) 20 MG tablet, Take 20 mg by mouth Daily, Disp: , Rfl: SUMAtriptan (Imitrex) 50 MG tablet, , Disp: , Rfl: traZODone (Desyrel) 50 MG tablet, Take 50 mg by mouth at bedtime, Disp: , Rfl: Past Surgical History: Procedure Laterality Date ORIF HIP FRACTURE SHOULDER SURGERY Social History Socioeconomic History Marital status: Unmarried Spouse name: Not on file Number of children: Not on file Years of education: Not on file Highest education level: Not on file Occupational History Not on file Tobacco Use Smoking status: Never Smokeless tobacco: Never Substance and Sexual Activity Alcohol use: Not Currently Drug use: Defer Sexual activity: Not on file Other Topics Concern Not on file Social History Narrative Not on file Social Drivers of Health Financial Resource Strain: Low Risk (12/08/2023) Received from [facility] Overall Financial Resource Strain (CARDIA) Difficulty of Paying Living Expenses: Not hard at all Food Insecurity: No Food Insecurity (12/08/2023) Received from [facility] Hunger Vital Sign Worried About Running Out of Food in the Last Year: Never true Ran Out of Food in the Last Year: Never true Transportation Needs: No Transportation Needs (12/08/2023) Received from [facility] PRAPARE - Transportation Lack of Transportation (Medical): No Lack of Transportation (Non-Medical): No Physical Activity: Insufficiently Active (12/08/2023) Received from [facility] Exercise Vital Sign Days of Exercise per Week: 3 days Minutes of Exercise per Session: 30 min Stress: No Stress Concern Present (12/08/2023) Received from [facility] [place] [facility] - Occupational Stress Questionnaire Feeling of Stress : Not at all Social Connections: Not on file Intimate Partner Violence: Unknown (08/07/2024) Received from [facility] Humiliation, Afraid, Rape, and Kick questionnaire Fear of Current or Ex-Partner: Patient unable to answer Emotionally Abused: Not on file Physically Abused: Not on file Sexually Abused: Not on file Housing Stability: Low Risk (12/11/2023) Received from [facility] Housing Stability Vital Sign Unable to Pay for Housing in the Last Year: No Number of Places Lived in the Last Year: 1 Unstable Housing in the Last Year: No Objective ENT Physical Exam General Examination: General overview: Normal, age-appropriate, no evidence of distress, sounds congested Head: Normocephalic, atraumatic Eyes: Pupils are equally round and reactive to light and accommodation, extraocular muscles are intact Ears: External ear architecture within normal limits, ear canals are patent, tympanic membranes areintact. Nose: External nose shows some angulation to the right with evidence of prior trauma., nares patent, septum intact, Septal deviation is noted. bilateralcongestion. Review of his CT scan does reveal evidence of mild pansinusitis with some collapse of the lateral nasal wall on the left. Obvious evidence of prior surgical intervention for trauma. Most of the sinus inflammatory change are right-sided. Inferior turbinates are enlarged. Darryl maneuver on the left reveals significant improvement of symptoms Oral cavity: Mucosa moist, no evidence of ulcer, mass, or lesion Throat: Clear Neck/thyroid: Neck supple, full range of motion, no cervical lymphadenopathy, no evidence of thyromegaly Lymph nodes: No cervical lymphadenopathy Skin: Warm and dry, no evidence of suspicious lesions, no rash Heart: No jugular venous distention, point of maximal impulse normal Lungs: Good air movement, no audible wheezing, no shortness of breath Chest: Normal shape and expansion Abdomen: Normal, soft, nontender, nondistended Musculoskeletal: Cervical spine normal, full range of motion Extremities: No clubbing, cyanosis, or edema Peripheral pulses: 2+ radial, 2+ carotid Neurologic: Alert and oriented, cranial nerves 2-12 are grossly intact Psych: Alert and oriented, normal affect, no evidence of distress Assessment/Plan Diagnoses and all orders for this visit: History of facial trauma Comments: Currently stable Nasal septal deviation Comments: consider revision septoplasty for correction of the anterior deflection on the left side Nasal valve collapse Comments: recommend Latera implants versus suture nasal valvuloplasty to improve integrity of the left nasal airway which is currently collapsing Chronic sinusitis, unspecified location Comments: patient will continue using nasal steroid Septoplasty is recommended. All of the options, risks, and indications of this procedure are reviewed in detail. Risks include but are not limited to bleeding, incomplete repair, septal perforation, infection, serous disability, and . Have discussed nasal valvuloplasty on the left, risks include but are not limited to bleeding, infection, poor wound healing, need for further surgery, serous disability, and . documented in this encounter Plan of Treatment Not on file documented as of this encounter Visit Diagnoses Diagnosis History of facial trauma- Primary Nasal septal deviation Deviated nasal septum Nasal valve collapse Chronic sinusitis, unspecified location documented in this encounter Care Teams Veterans Contact Representative Relationship Specialty Start Date End Date Jaymie Haas MD [address] [place] [address] PCP - General Family Medicine 11/13/24 Rolo Thornton DO [address] [place] [address] Otolaryngology 11/13/24 documented as of this encounter
--- OUTSIDE RECORDS SUMMARY | 2025-02-19 06:49 | XMS_ITS | Clinical Summary ---
Author Organization [facility] Address [address] [place] [address] Care Team Providers Care Liquefier Name Role Phone Jaymie Haas MD Primary Care Provider [phone] Allergies Active Allergy Reactions Criticality Noted Date Comments Nalbuphine Hives 04/09/2017 Tramadol Nausea And Vomiting,Unknown Low 05/17/20 16 Medications metoprolol succinate XL (Toprol-XL) 25 mg 24 hr tablet Take 25 mg by mouth in the morning. Active lisinopril 20 mg tablet Take 20 mg by mouth in the morning. Active simvastatin (Zocor) 20 mg tablet Take 20 mg by mouth in the morning. Active baclofen (Lioresal) 10 mg tablet Take 1 tablet by mouth every 6 (six) hours during the day. 07/30/2024 Active diclofenac (Voltaren) 50 mg EC tablet Take 50 mg by mouth in the morning and at bedtime. Active oxyCODONE-aceta minophen (Percocet) 5-325 mg tablet TAKE 1 TABLET BY MOUTH THREE TIMES A DAY NEEDED FOR PAIN *DNF 08/03/24* Active cetirizine (ZyrTEC) 10 mg tablet 10 mg. 11/29/2022 Active glucosamine/cho ndr langford A sod (OSTEO BI-FLEX ORAL) Take 1 tablet by mouth twice a day. Active cholecalciferol (D3-5) 5,000 Units tablet in the morning. 11/29/2022 Active multivit with minerals/lutein (MULTIVITAMIN 50 PLUS ORAL) 1 tablet. 11/29/2022 Activ e Active Problems Problem Noted Date Diagnosed Date Family history of colon canc er requiring screening colonoscopy 08/07/2024 Fracture of left pelvis 08/07/2024 Sacroiliac joint dysfunction of both sides 08/07 Traumatic separation of pubic symphysis 08/07/20 Asthma 12/08/2023 HTN (hypertension) 12/08/2023 Hyperlipidemia 12/08/2023 Obesity 12/08/2023 Bilateral hip pain 11/30/2023 Pelvic pain 11/30/2023 Lumbar pain 11/30/2023 Scrotum pain 11/30/2023 Lumbar radiculopathy 02/19/2021 Lumbar spondylosis 02/19/2021 Sciatica, left side 11/20/2020 Contact with and (suspected) exposure to covid-1 9 08/26/2020 Family History Medical History Relation Name Comments Cancer Father Prosper Milian Cancer Paternal Grandfather Ziggy Milian Relation Name Status Comments Father Prosper Milian Paternal Grandfather Ziggy Milian Social History Tobacco Use Types Packs/Day Years Used Date Smoking Tobacco: Never Smokeless Tobacco: Never Tobacco Cessation:Counseling Given: Not Answered Alcohol Use Standard Drinks/Week Comments Never 0 (1 standard drink = 0.6 oz pur e alcohol) Humiliation, Afraid, Rape, a nd Kick questionnaire Answer Date Recorded Within the last year, have y ou been afraid of your partner or ex-partner? Patient unable to answer 08/07/2024 Emotionally Abused Not on file 08/07/2024 Physically Abused Not on file 08/07/2024 Sexually Abused Not on file 08/07/2024 PHQ-2 Answer Date Recorded Patient Health Questionnaire-2 Score 1 08/07/2024 Sex and Gender Information Value Date Recorded Sex Assigned at Not on file Legal Sex Male 11:36 AM EST Gender Identity Not on file Sexual Orientation Not on file Last Filed Vital Signs Vital Sign Reading Time Taken Comments Blood Pressure 134/78 08/07/2024 1:36 PM EST Pulse 77 08/07/2024 1:36 PM EST Temperature 36.8 C (98.2 F) 08/07/2024 1:36 PM EST Respiratory Rate - - Oxygen Saturation - - Inhaled Oxygen Concentration - - Weight 109 kg (240 lb) 08/07/2024 1:36 PM EST Height 182.9 cm (6') 08/07/2024 1:36 PM EST Body Mass Index 32.55 08/07/2024 1:36 PM EST Plan of Treatment Health Maintenance Due Date Last Done Comments CT Colonography 1975 Colonoscopy 1975 Colorectal Cancer Screening 1975 FIT-DNA 1975 FIT 1975 FOBT 1975 Sigmoidoscopy 1975 Hepatitis B Vaccines (1 of 3 - 19+ 3-dose series) 1994 Pneumococcal Vaccine: Pediatrics (0 to 5 Years) and At-Risk Patients (6 to 64 Years) (1 of 2 - PCV) 1994 COVID-19 Vaccine ( - 2023-2 5 season) 2024 03/23/2022, 10/17/2021, 09/19/2021 Influenza Vaccine (#1) 2025 05/23/2019 Depression Screening 08/07/2025 08/07/2024 Zoster Vaccines (1 of 2) 2025 Adult Tetanus 09/16/2033 09/16/2023, 08/25/2015 HIB Vaccines Aged Out No longer eligi ble based on patient's age to complete this topic HPV Vaccines Aged Out No longer eligi ble based on patient's age to complete this topic IPV Vaccines Aged Out No longer eligi ble based on patient's age to complete this topic Meningococcal B Vaccine Aged Out No l onger eligible based on patient's age to complete this topic Meningococcal Vaccine Aged Out No ketan alyssia eligible based on patient's age to complete this topic Rotavirus Vaccines Aged Out No longer eligible based on patient's age to complete this topic Insurance [facility] Care Teams Liquefier Relationship Specialty Start Date End Date Jaymie Haas MD [address] [place] [address] PCP - General 06/22/24
--- OUTSIDE RECORDS SUMMARY | 2025-02-19 06:50 | XMS_ITS | Clinical Summary ---
Author Organization [facility] Address [address] [place] [address] Care Team Providers Care Contracts Specialist Name Role Phone Jaymie Haas MD Primary Care Provider [phone] Rolo Thornton DO Unavailable [phone] Allergies Active Allergy Reactions Criticality Noted Date Comments Nalbuphine Hives 04/09/2017 Tramadol Nausea And Vomiting Low 05/17/2016 Other Reaction(s): Unknown Medications traZODone (Desyrel) 50 MG tablet Take 50 mg by mouth at bedtime Active simvastatin (Zocor) 20 MG tablet Take 20 mg by mouth Daily Active sildenafil (Viagra) 50 MG tablet 5 Active metoprolol succinate XL (Toprol-XL) 25 MG 24 hr tablet Take 25 mg by mouth Daily Active lisinopril 20 MG tablet Take 20 mg by mouth Daily Active diclofenac (Voltaren) 50 MG EC tablet Take 50 mg by mouth in the morning and 50 mg before bedtime. Active cetirizine (ZyrTEC) 10 MG tablet Take 10 mg by mouth every 12 (twelve) hours Active cholecalciferol (Vitamin D-3) 125 MCG (5000 UT) tablet Take 5,000 Units by mouth in the morning. Active albuterol HFA 90 mcg/act inhaler 4 Active gabapentin (Neurontin) 600 MG tablet Take 600 mg by mouth in the morning and 600 mg before bedtime. 5 Active oxyCODONE-acetam inophen (Percocet) 5-325 MG tablet TAKE 1 TABLET BY MOUTH THREE TIMES A DAY NEEDED FOR PAIN 5 Active baclofen (Lioresal) 10 MG tablet Take 10 mg by mouth in the morning and 10 mg in the evening and 10 mg before bedtime. Active Fluticasone Propionate (Xhance) 93 MCG/ACT Exhaler SuspensionIndica tions:Chronic sinusitis, unspecified location,Nasal polyp Administer 1 puff into affected nostril(s) in the morning and 1 puff before bedtime. Samples LOT # [id number] Exp 10/2025. 16 mL 1 5 Active SUMAtriptan (Imitrex) 50 MG tablet 5 Active omeprazole (PriLOSEC) [address] capsuleIndicatio ns:Laryngopharyn geal reflux (LPR) Take 1 capsule (40 mg) by mouth in the morning. Take before meals. Do not crush or chew. 30 capsule 2 5 01/04/20 26 Active Active Problems No known active problems Resolved Problems Problem Noted Date Diagnosed Date Resolved Date Family history of colon canc er requiring screening colonoscopy 08/07/2024 11/13/2024 Fracture of left pelvis 08/07/2024 04/0 03/2025 Sacroiliac joint dysfunction of both sides 08/07/2024 11/13/2024 Traumatic separation of pubic symphysis 08/07/2024 11/13/2024 Asthma 12/08/2023 11/13/2024 HTN (hypertension) 12/08/2023 5 Hyperlipidemia 12/08/2023 11/13/2024 Obesity 12/08/2023 11/13/2024 Bilateral hip pain 11/30/2023 Lumbar pain 11/30/2023 11/13/2024 Scrotum pain 11/30/2023 11/13/2024 Sciatica, left side 11/20/2020 11/14/19 25 Contact with and (suspected) exposure to covid-19 08/26/2020 11/13/2024 Encounters Date Type Department Care Team Description 02/14/2025 3:15 PM EDT Office Visit [facility] [place] [address] [place] [address] Rolo Thornton, DO History of facial trauma (Primary Dx); Nasal septal deviation; Nasal valve collapse; Chronic sinusitis, unspecified location 02/14/2025 Bamboo flowsheet [facility] [place] [address] [place] [address] Rolo Thornton, 02/14/2025 Travel 01/03/2025 1:45 PM EDT Office Visit [facility] [place] [address] [place] [address] Rolo Thornton, Chronic sinusitis, unspecified location (Primary Dx); Laryngopharyngeal reflux (LPR); Hypertrophy of nasal turbinates; History of facial trauma; Nasal septal deviation 01/03/2025 Bamboo flowsheet [facility] [place] [address] [place] [address] Rolo Thornton, 01/03/2025 Travel 12/11/2024 1:45 PM EDT Office Visit [facility] [place] [address] [place] [address] Rolo Thornton, Nasal valve collapse (Primary Dx); Chronic sinusitis, unspecified location; Nasal polyp; Hypertrophy of nasal turbinates 12/11/2024 Bamboo flowsheet [facility] [place] [address] [place] [address] Rolo Thornton, 12/11/2024 Travel 11/30/2024 10:30 AM EDT Ancillary Procedure [facility] [address] [place] [address] Chronic sinusitis, unspecified location; Nasal polyp 11/30/2024 Travel 11/27/2024 Travel from Last 3 Months Immunizations Immunization Administration Dates Next Due Influenza, injectable, quadrivalent, preservativ e free 05/23/2019 Td (adult), 5 Lf tetanus tox oid, preservative free, adsorbed 08/25/2015 Tdap 09/16/2023 Social History Tobacco Use Types Packs/Day Years [...] Mass Index 31.19 02/14/2025 3:14 PM EDT Plan of Treatment Health Maintenance Due Date Last Done Comments CT Colonography 1975 Colonoscopy 1975 Colorectal Cancer Screening 1975 FIT-DNA 1975 FIT 1975 FOBT 1975 Sigmoidoscopy 1975 Influenza Vaccine (#1) 2025 05/23/2019 Procedures Procedure Name Priority Date/Time Associated Diagnosis Comments CT MAXILLOFACIAL WO IV CONTRAST Routine 11/30/2024 10:14 AM EDT Chronic sinusitis, unspecified location Nasal polyp from Last 3 Months Results * CT maxillofacial wo IV contrast (11/30/2024 10:14 AM EDT) Anatomical Region Laterality Modality Head, Neck Computed Tomogra phy 11/30/2024 10:2 1 AM EDT Impressions 11/30/2024 10:25 AM EDT Paranasal sinus disease as detailed. ELECTRONICALLY SIGNED BY: Victoriano Keller DO Narrative 11/30/2024 10:25 AM EDT Exam: CT MAXILLOFACIAL WO IV CONTRAST History: Sinusitis. Nasal polyps. Technique: Multiple contiguous axial images were obtained of the maxillofacial bones without contrast. Multiplanar reformats were obtained. All CT scans at this facility use dose modulation, iterative reconstruction, and/or weight based dosing when appropriate to reduce radiation dose to as low as reasonably achievable. Comparison: None available Findings: Maxillary Sinuses: Minimal mucosal thickening of the bilateral maxillary sinuses. Postsurgical changes of the anterior wall of the left maxillary sinus. Ethmoid sinuses: Mild mucosal thickening. Sphenoid sinuses: 1 cm mucous retention cyst versus polyp of the right sphenoid sinus. There is sphenoid pneumatization that extends inferior and posterior to the sella, resulting in a thin posterior bony margin of the clivus, consistent with sellar type pneumatization. Frontal sinuses: Minimal mucosal thickening of the right frontal sinus. The left frontal sinus is aplastic Right sphenoethmoidal recess: Clear. Left sphenoethmoidal recess: Clear. Right ostiomeatal complex and frontal recess: Clear. Left ostiomeatal complex and frontal recess: Clear. Nasal septum: Minimal rightward deviation. Other: Keros type 2 olfactory fossa. No Onodi or Naye cells. Mastoid air cells & middle ears: Clear. The middle ears are unremarkable. Soft tissues & Brain: No acute abnormality identified. Orbital contents are within normal limits. Postsurgical changes of the right side of the calvarium are partially visualized. Procedure Note Victoriano Keller, DO - 11/30/2024 Exam: CT MAXILLOFACIAL WO IV CONTRAST History: Sinusitis. Nasal polyps. Technique: Multiple contiguous axial images were obtained of themaxillofacial bones without contrast. Multiplanar reformats wereobtained. All CT scans at this facility use dose modulation, iterativereconstruction, and/or weight based dosing when appropriate to reduceradiation dose to as low as reasonably achievable. Comparison: None available Findings: Maxillary Sinuses: Minimal mucosal thickening of the bilateral maxillarysinuses. Postsurgical changes of the anterior wall of the left maxillarysinus. Ethmoid sinuses: Mild mucosal thickening. Sphenoid sinuses: 1 cm mucous retention cyst versus polyp of the rightsphenoid sinus. There is sphenoid pneumatization that extends inferior andposterior to the sella, resulting in a thin posterior bony margin of theclivus, consistent with sellar type pneumatization. Frontal sinuses: Minimal mucosal thickening of the right frontal sinus.The left frontal sinus is aplastic Right sphenoethmoidal recess: Clear. Left sphenoethmoidal recess: Clear. Right ostiomeatal complex and frontal recess: Clear. Left ostiomeatal complex and frontal recess: Clear. Nasal septum: Minimal rightward deviation. Other: Keros type 2 olfactory fossa. No Onodi or Naye cells. Mastoid air cells & middle ears: Clear. The middle ears areunremarkable. Soft tissues & Brain: No acute abnormality identified. Orbital contentsare within normal limits. Postsurgical changes of the right side of thecalvarium are partially visualized. IMPRESSION: Paranasal sinus disease as detailed. ELECTRONICALLY SIGNED BY: Victoriano Keller DO Rolo Thornton DO IMG CT PROCEDURES Final Res ult from Last 3 Months Insurance [employer] Member Subscriber Plan / Payer (Ef fective 2020-Present) Name:Porsper Milian Relation to Subscriber:Self Name:Prosper Milian Payer ID:Not on file Type:Not on file Address: [place] [phone] Care Teams Contracts Specialist Relationship Specialty Start Date End Date Jaymie Haas MD [address] [place] [address] PCP - General Family Medicine 11/13/24 Rolo Thornton DO [address] [place] [address] Otolaryngology 11/13/24
--- OUTSIDE RECORDS SUMMARY | 2025-02-19 06:50 | XMS_ITS | Encounter Summary ---
Author Organization [facility] Address [address] [place] [address] Care Team Providers Care Asbestos Textile Supervisor Name Role Phone Jaymie Haas MD Primary Care Provider [phone] Rolo Thornton DO Unavailable [phone] Encounter Details Date Type Department Care Team (Late st Contact Info) Description 02/14/2025 Bamboo flowsheet [facility] [address] [place] [address] Rolo Thornton DO [address] [facility] [place] [address] Social History Tobacco Use Types Packs/Day Years Used Date Smoking Tobacco: Never Smokeless Tobacco: Never Alcohol Use Standard Drinks/Week Comments Not Currently 0 (1 standard drink = 0.6 oz pur e alcohol) Sex and Gender Information Value Date Recorded Sex Assigned at Not on file Legal Sex Male 6:44 PM EDT Gender Identity Not on file Sexual Orientation Not on file documented as of this encounter Plan of Treatment Not on file documented as of this encounter Visit Diagnoses Not on filedocumented in this encounter Care Teams Asbestos Textile Supervisor Relationship Specialty Start Date End Date Jaymie Haas MD [address] [place] [phone] PCP - General Family Medicine 11/13/24 Rolo Thornton DO [address] [place], [place] [id number] Otolaryngology 11/13/24 documented as of this encounter
--- OUTSIDE RECORDS SUMMARY | 2025-02-19 06:50 | XMS_ITS | Patient Health Record ---
Author Organization [facility] Address [address] [place] [address] Care Team Providers Care Equipment Operator Warehouse Name Role Phone Seng Paez [phone] Allergies Allergen (clinical drug ingredient) Drug/Non Drug Allergy documented on EMR Reaction Allergy Type Onset Date Status nubain (uncoded) Unknown Allergy Act rubin Reason For Referral No Information Social History Tobacco Use: Social History Observation Description Date Details (start date - stop date) Never Smoker NA - NA Smoking History Question Answer Notes Smoking Status NonSmoker Alcohol Screening Question Answer Notes Did you have a drink contain ging alcohol in the last year? Yes Points 1 Interpretation Positive How often did you have six o r more drinks on one occasion? Never (0 points) How many drinks did you have on a typical day when you were drinking in the last year? 1 or 2 (0 points) How often did you have a dri nk containing alcohol in the last year? Monthly or less (1 point) Plan Of Treatment No Information Insurance Providers Payer Name Payer Address Payer Phone Subscriber Number Group Number Insured Name Patient Relationship to Insured Coverage Start Date Coverage End Date [address] [place] [address] [id number] AV DAVID YATESNIS Self - patient is the insured Medical (General) History Medical History History ICD Code Chronic back pain:: Yes CPAP Machine:: No Healthcare worker: No Latex Allergy: No Have you been in close conta ct with someone who has had MRSA within the last year?: No Have you ever had or presently have MRSA ?: No Have you been seen by a dentist in the l ast year?: Yes Do you have any dental probl ems i.e. Broken, loose, or chipped teeth, absess, gum disease?: No
--- OUTSIDE RECORDS SUMMARY | 2025-02-19 06:50 | XMS_ITS | Clinical Summary ---
Author Organization [facility] Address [address] [place] [address] Care Team Providers Care Material Reprocessing Associate Name Role Phone Jaymie Haas MD Primary Care Provider [phone] Allergies Active Allergy Reactions Criticality Noted Date Comments Nalbuphine 04/09/2017 Tramadol Nausea And Vomiting Low 02/19/2021 Medications lisinopril (PRINIVIL;ZESTR IL) 10 MG tablet Take 10 mg by mouth daily Active simvastatin (ZOCOR) 20 MG tablet Take 20 mg by mouth nightly Active meloxicam (MOBIC) 15 MG tablet TAKE 1 TABLET BY MOUTH EVERY DAY 11/16/2020 Active tiZANidine (ZANAFLEX) 4 MG tablet TAKE 1 TABLET BY MOUTH 3 TIMES A DAY NEEDED 11/20/2020 Active gabapentin (NEURONTIN) 100 MG capsule TAKE 2 PILLS THREE TIMES PER DAY 180 capsule 02/27/2021 Active Active Problems Problem Noted Date Diagnosed Date Lumbar radiculopathy 02/19/2021 Lumbar spondylosis 02/19/2021 Sciatica, left side 11/20/2020 Contact with and (suspected) exposure to covid-1 9 08/26/2020 Family History Medical History Relation Name Comments Cancer Father Diabetes Father Arthritis Mother Diabetes Mother Relation Name Status Comments Father Mother Social History Tobacco Use Types Packs/Day Years Used Date Smoking Tobacco: Never Smokeless Tobacco: Never Sex and Gender Information Value Date Recorded Sex Assigned at Male 03/09/2021 8:38 PM EDT Legal Sex Male 10:57 AM EST Gender Identity Male 03/09/2021 8:38 PM EDT Sexual Orientation Straight 03/09/2021 8: 38 PM EDT Last Filed Vital Signs Vital Sign Reading Time Taken Comments Blood Pressure 148/90 02/25/2021 2:30 PM EDT Pulse 79 02/25/2021 2:30 PM EDT Temperature 36.1 C (96.9 F) 02/27/2021 9:03 AM EDT Respiratory Rate 16 02/25/2021 2:30 PM EDT Oxygen Saturation 97% 02/25/2021 2:30 PM EDT Inhaled Oxygen Concentration - - Weight 117.9 kg (260 lb) 02/27/2021 9:03 AM EDT Height 180.3 cm (5' 11 ) 02/27/2021 9:03 AM EDT Body Mass Index 36.26 02/27/2021 9:03 AM EDT Plan of Treatment Not on file Insurance [place] [facility] Care Teams Material Reprocessing Associate Relationship Specialty Start Date End Date Jaymie Haas MD [address] [place] [phone] PCP - General Family Medicine 01/30/21
--- OUTSIDE RECORDS SUMMARY | 2025-02-19 06:50 | XMS_ITS | Encounter Summary ---
Author [facility] Address [address] [place] [address] Care Team Providers Care Lens Mold Setter Name Role Phone Jaymie Haas MD Primary Care Provider [phone] Encounter Details Date Type Department Care Team (Late st Contact Info) Description 02/26/2021 Post-op Telephone [facility] Special Procedure [address] [place], [place] [id number] Audra Worley, RN Social History Tobacco Use Types Packs/Day Years Used Date Smoking Tobacco: Never Smokeless Tobacco: Never Sex and Gender Information Value Date Recorded Sex Assigned at Male 03/09/2021 8:38 PM EDT Legal Sex Male 10:57 AM EST Gender Identity Male 03/09/2021 8:38 PM EDT Sexual Orientation Straight 03/09/2021 8: 38 PM EDT COVID-19 Exposure Response Date Recorded In the last month, have you been in contact with someone who was confirmed or suspected to have Coronavirus / COVID-19? No / Unsure 02/25/2021 10:14 AM EDT documented as of this encounter Progress Notes * Audra Worley RN - 02/26/2021 9:58 AM EDT Spoke to the patient who had a Myelogram with CT to follow yesterday by Dr. Shah. Patient says that he has had no issues,problems,or concerns post Myelogram. The site looks good. He denies any spinal headache. documented in this encounter Plan of Treatment Not on file documented as of this encounter Visit Diagnoses Not on filedocumented in this encounter Care Teams Lens Mold Setter Relationship Specialty [place] [address] [place] [phone] PCP - General Family Medicine 01/30/21 documented as of this encounter
--- OUTSIDE RECORDS SUMMARY | 2025-02-19 06:50 | XMS_ITS | CCD ---
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 Name Role Phone Chantal Mart MD Primary Care Provider HAMILTON ELDER Referring Unavailable CHANTAL MART Primary Care Unavailable CHANTAL MART Primary Care Unavailable HAMILTON ELDER Referring Unavailable Chantal Mart Unavailable Austin Barahona Unavailable SCARLETT ., DR ALLYSON Tellez Attending Unavailable PANTOJA ., DR ALLYSON Tellez Admitting Unavailable MA ., HANNA Consulting Unavailable BARRON, DR CHANTAL Gonzalez Primary Care Unavailable MART, DR CHANTAL Gonzalez Primary Care Unavailable LAKSHMIPATHY ., NARJOHNNY Admitting Ginger vailable LAKSHMIPATHY ., SANDY Attending Ginger vailable PANTOJA ., DR ALLYSON Tellez Admitting Unavailable PANTOJA ., DR ALLYSON Tellez Consulting Unavailable PANTOJA ., DR ALLYSON Tellez Attending Unavailable MART, DR CHANTAL Gonzalez Primary Care Unavailable PANTOJA ., DR ALLYSON Tellez Admitting Unavailable PANTOJA ., DR ALLYSON Tellez Attending Unavailable MA .HANNA Consulting Unavailable BARRON, DR CHANTAL Gonzalez Primary [...] DR CHANTAL Gonzalez Consulting Unavailable BARRON, DR CHATNAL Gonzalez Attending Unavailable BARRON, DR CHANTAL Gonzalez Admitting Unavailable BARRON, DR CHANTAL Gonzalez Primary Care Unavailable BARRON, DR CHANTAL Gonzalez Primary Care Unavailable BARRON, DR CHANTAL Gonzalez Consulting Unavailable BARRON, DR CHANTAL Gonzalez Attending Unavailable BARRON, DR CHANTAL Gonzalez Admitting Unavailable ALFONZO FERNANDEZ Consulting Unavailable BARRON, DR CHANTAL Gonzalez Primary Care Unavailable MART, DR CHANTAL Gonzalez Consulting Unavailable MART, DR CHANTAL Gonzalez Attending Unavailable MART, DR CHANTAL Gonzalez Admitting Unavailable PANTOJA ., [...] Unavailable Chantal Mart MD Primary Care Provider NAPORAADAM K Attending Unavailable CHANTAL MART Primary Care Unavailable NAPORA, ADAM K Attending Unavailable CHANTAL MART Primary Care Unavailable NAPORA, ADAM K Attending Unavailable Gieditis , Andrius Vytautlinda Attending Unavailable Giedraitis , Andrius Vytautlinda Attending Unavailable Gikeshaitis , Andrius Vytautlinda Attending Unavailable Giedraitis , Andrius Vytautlinda Attending Unavailable Giedraitis , Jonesrius Vsadia Attending Unavailable Chantal Mart Attending Unavailable Chantal Mart Primary Care Unavailable Chantal Mart Admitting Unavailable CYNDI, BURT Referring Unavailable CYNDI, BURT Referring Unavailable CYNDI, BURT Referring Unavailable CYNDI, BURT Attending Unavailable Chantal Mart MD Primary Care Provider Chantal Mart MD Attending Provider Chantal Mart MD Primary Care Provider [phone] Rolo Phoenix DO Unavailable [phone] NAPORA, ADAM K Referring Unavailable NAPORA, ADAM K Admitting Unavailable NAPORA, ADAM K Attending Unavailable CHANTAL MART Primary Care Unavailable NAPORA, ADAM K Referring Unavailable CHANTAL MART Primary Care Unavailable NAPORA, ADAM K Referring Unavailable CHANTAL MART Primary Care Unavailable NAPORA, ADAM K Referring Unavailable CHANTAL MART Primary Care Unavailable NAPORA, ADAM K Attending Unavailable CHANTAL MART Primary Care Unavailable ADAM NAVARRO Referring Unavailable CHANTAL MART Primary Care Unavailable ADAM NAVARRO Attending Unavailable CHANTAL MART Primary Care Unavailable ADAM NAVARRO Referring Unavailable CHANTAL MART Primary Care Unavailable Chantal Mart MD Primary Care Provider ROLO PHOENIX Attending Unavailable CHANTAL MART Referring Unavailable LIZETT, ROLO Tellez Referring Unavailable ROLO PHOENIX Attending Unavailable CHANTAL MART Referring Unavailable BILUISENZEB, ROLO Tellez Attending Unavailable BINOBLE, ROLO Tellez Attending Unavailable Allergies Allergy Classification Reported Allergen(s) Allergy Type Date of Onset Reaction(s) Facility Nalbuphine (2 sources) Nalbuphine Drug Allergy 7 [facility] Opioid Agonists (2 sources) traMADol Drug Allergy 1 Nausea And Vomiting [facility] (15 sources) Nalbuphine; Translations: [Nubain] Drug Allergy 7 BP dropped [facility] Repository (20 sources) traMADol; Translations: [TRAMADOL] Drug Allergy 6 Nausea And Vomiting, Unknown [facility] Other (6 sources) Nubain *ANALGESICS - OPIOID* Propensity to adverse reactions Unknown [facility] Other (3 sources) Allergies Reconciled Propensity to adverse reactions Unknown [facility] Other (3 sources) patient allergy list reviewed by nurse or physicia Propensity to adverse reactions 9 Comment:Done [facility] Other (20 sources) Nalbuphine; Translations: [NALBUPHINE] Drug Allergy 7 [facility] (1 source) No Known Medication Allergies; Translations: [No Known Medication Allergies] Propensity to adverse reactions (disorder) [facility] Repository (1 source) Nalbuphine Drug Allergy 4 [facility] Repository (1 source) traMADol Drug Allergy 4 [facility] Repository (1 source) ALLERGIES NOT ON FILE; Translations: [ALLERGIES NOT ON FILE] Propensity to adverse reactions (disorder) [facility] Repository Medications Current Medications Medication Drug Class(es) Dates Sig (Normalized) Sig (Original) acetaminophen 325 mg oral tablet (10 sources) Start: 12-14-2023 take 2 tablets by [...] / oxyCODONE hydrochloride 5 mg oral tablet (18 sources) Opioid Agonist Start: 12-03-2024 take 1 tablet by mouth three times daily as needed for pain oxyCODONE-acetaminophen (Percocet) 5-325 MG tablet TAKE 1 TABLET BY MOUTH THREE TIMES A DAY NEEDED FOR PAIN 12/03/2024 Active Start: 11-29-2022 End: 07-02-2024 take 1 tablet by mouth every six hours as needed for pain Oxycodone-Acetaminophen (Endocet) 5-325 mg tablet Discontinued 1 TAB PO Every 6 hours as needed for Pain November 29, 2022 12:00am July 02, 2024 3:48pm End: 12-21-2023 take 1 tablet by mouth [...] mg/ml inhalation solution (20 sources) beta2-Adrenergic Agonist Start: 09-24-2024 take 3 mL by inhalation every six hours as needed Albuterol Sulfate 2.5 mg /3 mL (0.083 %) solution for nebulization Active 2.5 MG INHALATION Every 6 hours September 24, 2024 1:00am Free[employer] mL as needed Inhalation every 6 hrs; Note: Source Status: Taking; Provider: Barron Coon ( ) Start: 05-08-2024 albuterol HFA 90 mcg/act inhaler 05/08/2024 Active Start: 05-08-2024 take 1 puff(s) by mo uth every four hours as needed albuterol HFA 90 mcg/act inhaler INHALE 1 PUFF BY MOUTH EVERY 4 HOURS NEEDED 05/08/2024 Active Start: 03-13-2024 End: 05-08-2024 take 1 puff(s) by inhalation every four hours as needed Albuterol Sulfate 90 mcg/actuation HFA aerosol inhaler Active 0 .ROUTE .COMPLEX 8.5 May 08, 2024 8:34am INHALE 1 PUFF INTO THE LUNGS EVERY 4 HOURS NEEDED Start: 03-13-2024 End: 03-13-2024 take 1 puff(s) by inhalation every four hours as needed Albuterol Sulfate 90 mcg/actuation HFA aerosol inhaler Discontinued 1 PUFF INHALATION Every 4 hours as needed March 13, 2024 12:00am March 13, 2024 9:50am Start: 12-09-2023 take 2 puff(s) by in halation every six hours as needed for wheezing [...] First dose on [facility] 12/08/23 at 2100 baclofen 10 mg oral tablet (12 sources) gamma-Aminobutyric Acid-ergic Agonist Start: 06-19-2024 take 1 tablet by mouth in the morning, then take 1 tablet by mouth in the evening, then take 1 tablet by mouth at bedtime baclofen (Lioresal) 10 MG tablet Take 10 mg by mouth in the morning and 10 mg in the evening and 10 mg before bedtime. 11/29/2024 Active benzocaine 15 mg / menthol 3.6 [...] Vitamin D Start: 12-14-2023 End: 01-13-2024 calcium carbonate-vit butterfield D3 (Calcium 600 with Vitamin D3) 600 mg-10 mcg (400 unit) chewable tablet Indications: Pelvic pain Chew 1 tablet 2 times a day. 60 tablet 12/14/2023 01/13/2024 Active cetirizine hydrochloride 10 mg oral tablet (20 sources) Histamine-1 Receptor Antagonist Start: 11-29-2022 take 1 tablet by mouth twice daily Cetirizine 10 mg Tablet Active 10 MG PO Twice daily November 29, 2022 12:00am take 1 tablet by olive th every twelve hours cetirizine (ZyrTEC) 10 MG tablet Take 10 mg by mouth every 12 (twelve) hours Active take 1 tablet by olive th every twelve hours cetirizine (ZyrTEC) 10 mg tablet Take 1 tablet (10 mg) by mouth every 12 hours. Active cholecalciferol 0.025 mg oral tablet (20 sources) Vitamin D Start: 12-08-2023 take 5000 [IU] by mouth once daily 5,000 Units, oral, Daily, First dose on [facility] 12/08/23 at 2100 Start: 11-29-2022 take 1 tablet by olive th once daily Cholecalciferol (Vitamin D3) (Vitamin D3) 125 mcg (5,000 unit) Tablet Active 125 MCG PO Daily November 29, 2022 12:00am take 1 tablet by olive th in the morning cholecalciferol (Vitamin D-3) 125 MCG (5000 UT) tablet Take 5,000 Units by mouth in the morning. Active take 1 tablet by olive th once daily cholecalciferol (Vitamin D-3) 5,000 Units tablet Take [...] MUSCLE PAIN 09/17/2023 12/08/2023 Discontinued (Therapy completed) Start: 11-29-2022 End: 06-19-2024 take 2 tablets by mouth at bedtime Cyclobenzaprine 10 mg tablet Discontinued 20 MG PO Bedtime November 29, 2022 12:00am June 19, 2024 3:15pm diclofenac sodium 75 mg delayed release oral tablet (20 sources) Nonsteroidal Anti-inflammatory Drug Start: 11-29-2022 take 1 tablet by mouth twice daily Diclofenac Sodium 75 mg tablet,delayed release (DR/EC) Active 75 MG PO Twice daily November 29, 2022 12:00am take 1 tablet by mouth in the mo rning diclofenac (Voltaren) 50 MG EC tablet Take 50 mg by mouth in the morning and 50 mg before bedtime. Active take 1.5 tablets by mouth once [...] 60 capsule 12/14/2023 01/13/2024 Active fluticasone propionate 0.093 mg/actuat metered dose nasal spray (9 sources) Corticosteroid Start: 12-11-2024 take 1 puff(s) nasal route in the morning Fluticasone Propionate (Xhance) 93 MCG/ACT Exhaler Suspension Indications: Chronic sinusitis, unspecified location , Nasal polyp Administer 1 puff into affected nostril(s) in the morning and 1 puff before bedtime. Samples LOT # [id number] Exp 10/2025. 16 mL 1 12/11/2024 Active Start: 12-14-2023 2 spray, Each Nostril, Daily, First dose on Tue12/14/23 at 2030, Shake gently. Before first use, prime pump (press 6 times until fine spray appears). After use, clean tip and replace cap. gabapentin 600 mg oral tablet (20 sources) Anti-epileptic Agent Start: 12-05-2024 take 1 tablet by mouth in the morning gabapentin (Neurontin) 600 MG tablet Take 600 mg by mouth in the morning and 600 mg before bedtime. 12/05/2024 Active Start: 10-27-2023 take 1 capsule by mo [facility] once daily at bedtime gabapentin (Neurontin) 300 mg capsule Take 1 capsule (300 mg) by mouth once daily at bedtime. 10/27/2023 Active Start: 01-30-2021 End: 02-27-2021 gabapentin (NEURONTIN) 100 M G capsule TAKE 2 PILLS THREE TIMES PER DAY 180 capsule 0 01/30/2021 02/27/2021 Discontinued (REORDER) glucosamine/chondr langford A sod (OSTEO BI-FLEX ORAL) (9 sources) take 1 tablet by mouth twice daily glucosamine/chondr langford A sod (OSTEO BI-FLEX ORAL) Take 1 tablet by mouth 2 times a day. Active 1 ml HYDROmorphone hydrochloride 1 mg/ml cartridge (2 sources) Opioid Agonist Start: 024 0.2 mg, intravenous, Every 3 hours PRN, pain breakthrough, Starting on [facility] 12/08/23 at 1810 Start: 12-08-2023 End: 12-08-2023 0.4 mg, intravenous, Every 5 min PRN, pain severe (7-10), first line, Starting on [facility] 12/08/23 at 1441, Recovery (only), Max total of 4 mg regardless of dose. lisinopril 10 mg oral tablet (20 sources) Angiotensin Converting Enzyme Inhibitor Start: 12-27-2024 take 1 tablet by mouth once daily Lisinopril 10 mg tablet Active 10 MG PO Daily December 27, 2024 1:57pm Start: 11-15-2023 End: 12-27-2024 take 1 tablet by mouth once daily Lisinopril 20 mg tablet Discontinued 0 .ROUTE .COMPLEX November 08, 2024 9:40am December 27, 2024 1:57pm TAKE 1 TABLET BY MOUTH EVERY DAY Start: 11-29-2022 End: 11-15-2023 take 1 tablet by mouth once daily Lisinopril 20 mg tablet Discontinued 20 MG PO Daily November 29, 2022 12:00am November 15, 2023 8:41am take 1 tablet by [facility] once daily lisinopril (PRINIVIL;ZESTRIL) 10 MG tablet Take 10 [...] 2145 magnesium oxide 500 mg oral tablet (11 sources) Start: 11-29-2022 take 1 tablet by [...] BY MOUTH EVERY DAY 0 11/16/2020 Active multivitamin tablet (9 sources) take 1 tablet by mouth once daily multivitamin tablet Take 1 tablet by mouth once daily. Active Multivitamin Tablet (4 sources) Start: 11-29-2022 take 1 tablet by mouth once daily Multivitamin Tablet Active 1 TAB PO Daily November 29, 2022 12:00am Start: 11-29-2022 take 1 tablet by olive th once daily Multivitamin Tablet Active 1 TAB PO Daily November 28, 2022 11:00pm omeprazole 40 mg delayed release oral capsule (5 sources) Proton Pump Inhibitor Start: 01-03-2025 End: 01-03-2026 take 1 capsule by mouth before mealtime omeprazole (PriLOSEC) [address] capsule Indications: Laryngopharyngeal reflux (LPR) Take 1 capsule (40 mg) by mouth in the morning. Take before meals. Do not crush or chew. 30 capsule 2 01/03/2025 01/03/2026 Active oxyCODONE hydrochloride 5 mg oral tablet (3 [...] 2 hour PRN, sore throat, Starting on [place] 12/11/23 at 1141, Instruct patient to spit out after 15 seconds. polyethylene glycol 3350 68358 mg powder for oral solution (1 source) Osmotic Laxative Start: 12-08-2023 17 g, oral, D aily, First dose on [facility] 12/08/23 at 1830, [...] line, Starting on Tue12/11/23 at 2110 sennosides, snf 8.6 mg oral tablet (1 source) Start: 12-08-2023 take 1 tablet by mouth once daily 8.6 mg (1 tablet), oral, Nightly, First dose on [employer] 12/08/23 at 2100 sildenafil 50 mg oral tablet (16 sources) Phosphodiesterase 5 Inhibitor Start: 08-11-2024 sildenafil (Viagra) 50 MG tablet 08/11/2024 Active Start: 07-16-2024 End: 12-10-2024 Sildenafil (Viagra) 50 mg ta blet Active 50 MG PO Daily as needed for sexual activity December 10, 2024 4:05pm administer 30 minutes to 4 hours before activity simethicone 80 mg chewable tablet (1 source) Start: 12-09-2023 take 40 mg by mouth four times daily as needed 40 mg, oral, 4 times daily PRN, flatulence, Starting on Tue12/09/23 at 1319 sodium chloride 0.111 meq/ml nasal spray (1 source) Start: 12-13-2023 take 1 spray(s) nasal route four times daily as needed for congestion 1 spray, Each Nostril, 4 times daily PRN, congestion, Starting on Tue12/13/23 at 1350 SUMAtriptan 50 mg oral tablet (6 sources) Serotonin-1b and Serotonin-1d Receptor Agonist Start: 12-27-2024 SUMAtriptan (Imitrex) 50 MG tablet 12/27/2024 Active tiZANidine 4 mg oral tablet (11 sources) Central alpha-2 Adrenergic Agonist Start: 11-20-2020 take 1 tablet by mouth three times daily as needed tiZANidine (ZANAFLEX) 4 MG tablet TAKE 1 TABLET BY MOUTH 3 TIMES A DAY NEEDED 0 11/20/2020 Active valACYclovir 1000 mg oral tablet (9 sources) Herpesvirus Nucleoside Analog DNA Polymerase Inhibitor, Herpes Simplex Virus Nucleoside Analog DNA Polymerase Inhibitor, Herpes Zoster Virus Nucleoside Analog DNA Polymerase Inhibitor Start: 09-03-2024 End: 09-17-2024 Valacyclovir (Valtrex) 1 gram tablet Active 2000 MG PO Twice daily September 17, 2024 5:27pm take 1 tablet by mouth twice jesi ly Valtrex 1 GM 1 tab Orally bid for 1 days Active Completed/Discontinued Medications Medication Drug Class(es) Dates Sig (Normalized) Sig (Original) azithromycin 250 mg oral tablet (10 sources) Macrolide Antimicrobial Start: 09-26-2024 End: 11-30-2024 Azithromycin 250 mg tablet Discontinued 0 PO .COMPLEX 6 October 15, 2024 11:59am November 30, 2024 8:31am For 250 mg dose pack: take 500 mg today (day 1), then 250 mg for 4 days (days 2-5) PO Start: 06-03-2023 Azithromycin 2 50 MG as directed Orally 2 tabs po today, then 1 tab daily x 4 more days for May, Active Start: 12-10-2022 Azithromycin 2 50 MG as directed Orally 2 tabs po today, then 1 tab daily x 4 more days for December, Active calcium chloride 0.0014 meq/ml / potassium chloride [...] 02-25-2021 End: 02-25-2021 lidocaine 2 % injection Magnesium (4 sources) Start: 11-29-2022 End: 01-12-2024 take 2 tablets by mouth once daily Magnesium 250 mg Tablet Discontinued 500 MG PO Daily November 29, 2022 12:00am January 12, 2024 11:00am Start: 11-29-2022 End: 01-12-2024 take 2 tablets by mouth once daily Magnesium 250 mg Tablet Discontinued 500 MG PO Daily November 28, 2022 11:00pm January 12, 2024 10:00am 24 hr metoprolol succinate 25 mg extended release oral tablet (20 sources) beta-Adrenergic [place] Start: 11-15-2023 take 1 tablet by mouth once daily metoprolol succinate XL (Toprol-XL) 25 mg 24 hr tablet Take 1 tablet (25 mg) by mouth once daily. 11/15/2023 Active Start: 11-15-2023 End: 11-30-2024 take 1 tablet by mouth once daily Metoprolol Succinate 25 mg tablet extended release 24 hr Discontinued 0 .ROUTE .COMPLEX 90 November 08, 2024 9:40am November 30, 2024 8:52am TAKE 1 TABLET BY MOUTH EVERY DAY Start: 11-29-2022 End: 11-15-2023 take 1 tablet by mouth once daily Metoprolol Tartrate 25 mg Tablet Discontinued 25 MG PO Daily November 29, 2022 12:00am November 15, 2023 8:41am naproxen 500 mg oral tablet (1 source) Nonsteroidal Anti-inflammatory Drug Start: 09-17-2023 End: 09-24-2023 take 1 tablet by mouth twice daily naproxen (Naprosyn) 500 mg tablet Take 1 tablet (500 mg) by mouth 2 times a day. 09/17/2023 09/24/2023 ondansetron 4 mg disintegrating oral tablet (14 sources) Serotonin-3 Receptor Antagonist Start: 09-26-2024 End: 11-30-2024 take 1 tablet by mouth every eight hours as needed for nausea and vomiting Ondansetron 4 mg tablet,disintegr ating Discontinued 4 MG PO Q8H as needed for nausea and vomiting September 26, 2024 1:00am November 30, 2024 8:32am Start: 12-14-2023 ondansetron (Z ofran) 4 mg tablet Indications: Pelvic pain Take 2 tablets (8 mg) by mouth every 8 hours if needed for nausea or vomiting for up to 15 doses. 15 tablet 12/14/2023 Active Start: 12-08-2023 take 1 tablet by olive th every eight hours as needed ondansetron (Zofran) tablet 4 mg oxygen (O2) therapy (1 source) Start: 12-08-2023 End: 12-08-2023 inhalation, Continuous , First dose on [facility] 12/08/23 at 1500, Recovery (only), Device: Nasal Cannula, Rate in liters per minute: 2 LPM, Keep O2 Sat Above: 92% simvastatin 20 mg oral tablet (20 sources) HMG-CoA Reductase Inhibitor Start: 12-08-2023 take 20 mg by mouth once daily 20 mg, oral, Nightly, First dose on [facility] 12/08/23 at 2100 Start: 11-15-2023 End: 11-08-2024 take 1 tablet by mouth once daily Simvastatin 20 mg tablet Discontinued 0 .ROUTE .COMPLEX May 16, 2024 11:04am November 08, 2024 9:40am TAKE 1 TABLET BY MOUTH EVERY DAY Start: 11-29-2022 End: 11-15-2023 take 1 tablet by mouth at bedtime Simvastatin 20 mg tablet Discontinued 20 MG PO Bedtime November 29, 2022 12:00am November 15, 2023 8:41am traZODone hydrochloride 50 mg oral tablet (20 sources) Serotonin Reuptake Inhibitor Start: 12-19-2023 End: 11-05-2024 take 1 tablet by mouth once daily at bedtime Trazodone 50 mg tablet Discontinued 0 .ROUTE .COMPLEX April 30, 2024 1:12pm November 05, 2024 9:13am TAKE 1 TABLET BY MOUTH EVERYDAY AT BEDTIME Start: 07-26-2023 End: 12-19-2023 take 1 tablet by mouth once daily at bedtime Trazodone 50 mg tablet Discontinued 50 MG PO Daily at bedtime October 24, 2023 4:41pm October 25, 2023 12:25pm undefined Problems Active Problems Problem Classification Problem Date Documented Date Episodic/Chronic Acute bronchitis (1 source) Acute bronchitis, unspecified Episodic Anxiety disorders (14 sources) Generalized anxiety disorder; Translations: [Generalized anxiety disorder] Onset: 8 Chronic Chronic obstructive pulmonary disease and bronchiectasis (3 sources) Acute exacerbation of chronic asthmatic bronchitis; Translations: [Chronic obstructive asthma, with (acute) exacerbation] Onset: 7 Chronic Chronic obstructive pulmonary disease and bronchiectasis (4 sources) Bronchitis, not specified as acute or chronic; Translations: [BRONCHITIS NOT SPEC ACUTE/CHRON] Onset: 3 Episodic Complications of surgical procedures or medical care (7 sources) Headache following lumbar puncture; Translations: [Other reaction to spinal and lumbar puncture] 09-06-2024 Episodic Conditions associated with dizziness or vertigo (1 source) Benign paroxysmal vertigo, left ear Episodic Esophageal disorders (2 sources) Laryngopharyngeal reflux; Translations: [Gastro-esophageal reflux disease without esophagitis] 01-03-2025 Chronic Headache; including migraine (19 sources) Complicated migraine; Translations: [Migraine with aura, not intractable, without status migrainosus] Chronic Joint disorders and dislocations; trauma-related (3 sources) Traumatic arthropathy of the shoulder region; Translations: [Traumatic arthropathy, shoulder region] Onset: 7 Chronic Malaise and fatigue (19 sources) Fatigue; Translations: [Other fatigue] Onset: 2 Episodic Miscellaneous mental health disorders (5 sources) Primary insomnia; Translations: [Primary insomnia] Chronic Noninfectious gastroenteritis (15 sources) Acute gastroenteritis; Translations: [Noninfective gastroenteritis and colitis, unspecified] Episodic Nonspecific chest pain (5 sources) Chest pain, unspecified; Translations: [Chest pain at rest] Onset: 4 06-19-2024 Episodic Osteoarthritis (1 source) Unilateral primary osteoarthritis, left hip; Translations: [UNI PRIM OSTEOARTHRITIS LT HIP] Onset: 2 Chronic Other acquired deformities (4 sources) Incompetence of nasal valve; 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] 12-11-2024 Episodic Other circulatory disease (13 sources) Elevated blood-pressure reading without diagnosis of hypertension; Translations: [Elevated blood-pressure reading, without diagnosis of hypertension] Episodic Other connective tissue disease (4 sources) Cramp and spasm; Translations: [CRAMP AND SPASM] Onset: 3 Episodic Other connective tissue disease (5 sources) Other muscle spasm; Translations: [OTHER MUSCLE SPASM] Onset: 2 Episodic Other fractures (1 source) Closed fracture dislocation of pelvis ; Translations: [Fracture of unspecified parts of lumbosacral spine and pelvis, subsequent encounter for fracture with routine healing] 11-21-2024 Episodic Other fractures (3 sources) Fracture of unspecified parts of lumbosacral spine and pelvis, subsequent encounter for fracture with routine healing; Translations: [Aftercare for healing traumatic fracture of other bone] Onset: 4 Episodic Other fractures (1 source) Fracture of unspecified parts of lumbosacral spine and pelvis, initial encounter for closed fracture; Translations: [Closed unspecified fracture of pelvis] 11-30-2024 Episodic Other injuries and conditions due to external causes (3 sources) Injury of left lower leg; Translations: [Unspecified injury of left lower leg, initial encounter] Episodic Other injuries and conditions due to external causes (6 sources) H/O: facial injury; Translations: [Personal history of other (healed) physical injury and trauma] 11-13-2024 Episodic Other nervous system disorders (1 source) Other chronic pain; Translations: [OTHER CHRONIC PAIN] Onset: 2 Chronic Other nervous system disorders (1 source) Acute postoperative pain; Translations: [Other acute postprocedural pain] 12-14-2023 Episodic Other non-traumatic joint disorders (18 sources) Shoulder joint pain; Translations: [Pain in right shoulder] Onset: 7 Episodic Other nutritional; endocrine; and metabolic disorders (10 sources) Body mass index 30+ - obesity; Translations: [Obesity, unspecified] Chronic Other nutritional; endocrine; and metabolic disorders (6 sources) Obese class II; Translations: [Body mass index (BMI) 36.0-36.9, adult] Chronic Other nutritional; endocrine; and metabolic disorders (9 sources) Obese class I; Translations: [Body mass index 32.0-32.9, adult] Onset: 7 Chronic Other nutritional; endocrine; and metabolic disorders (3 sources) Simple obesity ; Translations: [Other obesity due to excess calories] Onset: 7 Chronic Other skin disorders (14 sources) Other hypertrophic disorders of the skin; Translations: [Unspecified hypertrophic and atrophic conditions of skin] 07-02-2024 Episodic Other skin disorders (3 sources) Hypertrophic condition of skin; Translations: [Other hypertrophic disorders of the skin] Episodic Other skin disorders (4 sources) Skin tag; Translations: [Other hypertrophic disorders of the skin] 07-02-2024 Episodic Other upper respiratory disease (12 sources) Rhinitis; Translations: [Chronic rhinitis] Chronic Other upper respiratory disease (3 sources) Seasonal allergic rhinitis; Translations: [Other seasonal allergic rhinitis] Onset: 8 Chronic Other upper respiratory disease (2 sources) Allergic rhinitis; Translations: [Allergic rhinitis, unspecified] 11-13-2024 Chronic Other upper respiratory disease (6 sources) Polyp of nasal cavity and/or nasal sinus; Translations: [Nasal polyp, unspecified] 11-13-2024 Episodic Other upper respiratory disease (6 sources) Deviated nasal septum; Translations: [Deviated nasal septum] 11-13-2024 Episodic Other upper respiratory disease (4 sources) Hypertrophy of nasal turbinates; Translations: [Hypertrophy of nasal turbinates] 12-11-2024 Episodic Other upper respiratory infections (20 sources) Chronic maxillary sinusitis; Translations: [Chronic maxillary sinusitis] Onset: 7 11-13-2024 Chronic Other upper respiratory infections (5 sources) Acute maxillary sinusitis; Translations: [Acute maxillary sinusitis, unspecified] 09-27-2024 Episodic Otitis media and related conditions (3 sources) Non-suppurative otitis media; Translations: [Unspecified nonsuppurative otitis media, right ear] Episodic Residual codes; unclassified (3 sources) Family history of malignant neoplasm of gastrointestinal tract; Translations: [Family history of malignant neoplasm of digestive organs] Episodic Residual codes; unclassified (2 sources) Family history of prostate cancer; Translations: [Family history of malignant neoplasm of prostate] 11-30-2024 Episodic Residual codes; unclassified (2 sources) Family history of malignant neoplasm of prostate; Translations: [Family history of malignant neoplasm of prostate] 11-30-2024 Episodic Respiratory failure; insufficiency; arrest (adult) (12 sources) Chronic respiratory failure; Translations: [Chronic respiratory failure with hypoxia] Chronic Spondylosis; intervertebral disc disorders; other back problems (20 sources) Lumbar spondylosis; Translations: [Spondylosis without myelopathy or radiculopathy, lumbar region] Onset: 1 02-19-2021 Chronic Syncope (16 sources) Syncope and collapse; Translations: [Syncope and collapse] Onset: 2 Episodic Unclassified (4 sources) LOW BACK PAIN, UNSPECIFIED; Translations: [LOW BACK PAIN, UNSPECIFIED] Onset: 2 Unclassified (3 sources) History of disease caused by Severe acute respiratory syndrome coronavirus 2 (situation); Translations: [Personal history of COVID-19] Viral infection (8 sources) Viral infection, unspecified; Translations: [Recurrent herpes simplex labialis] Episodic Viral infection (3 sources) Disease caused by 2019-nCoV; Translations: [COVID-19] Past or Other Problems Problem Classification Problem Date Documented Date Episodic/Chronic Abdominal pain (20 sources) Generalized abdominal pain; Translations: [Generalized abdominal pain] Onset: 05-01-2014 11-30-2023 Episodic Allergic reactions (3 sources) Contact dermatitis; Translations: [Contact dermatitis and other eczema, due to unspecified cause] Onset: 07-18-2018 Episodic Asthma (20 sources) Reactive airways dysfunction syndrome; Translations: [Unspecified asthma, uncomplicated] Onset: 12-08-2023 Resolved: 11-13-2024 12-08-2023 Chronic Bacterial infection; unspecified site (3 sources) Bacterial infectious disease; Translations: [Bacterial infection, unspecified, in conditions classified elsewhere and of unspecified site] Onset: 10-29-2016 Episodic Complication of device; implant or graft (2 sources) Fracture of pelvis following insertion of orthopedic implant, joint prosthesis, or bone plate; Translations: [Fracture of pelvis following insertion of orthopedic implant, joint prosthesis, or bone plate] Onset: 05-23-2024 Episodic Disorders of lipid metabolism (20 sources) Hyperlipidemia; Translations: [Hyperlipidemia, unspecified] Onset: 12-08-2023 Resolved: 11-13-2024 12-08-2023 Chronic Essential hypertension (20 sources) Benign essential hypertension; Translations: [Essential hypertension, benign] Onset: 01-10-2019 Resolved: 11-13-2024 12-08-2023 Chronic Comment on above: Problem List clean-u p per request of Phys. EHR Cmte Fluid and electrolyte disorders (3 sources) Dehydration; Translations: [Dehydration] Onset: 01-05-2018 Episodic Headache; including migraine (3 sources) Cough headache syndrome; Translations: [Primary cough headache] Onset: 10-29-2016 Episodic Immunizations and screening for infectious disease (20 sources) Contact with or exposure to other viral diseases; Translations: [Contact with and (suspected) exposure to covid-19] Onset: 08-26-2020 Resolved: 11-13-2024 02-19-2021 Episodic Influenza (3 sources) Upper respiratory tract infection due to Influenza; Translations: [Influenza due to unidentified influenza virus with other respiratory manifestations] Onset: 11-26-2015 Episodic Joint disorders and dislocations; trauma-related (15 sources) Traumatic pubic symphysis separation; Translations: [Traumatic rupture of symphysis pubis, initial encounter] Onset: 08-07-2024 Resolved: 11-13-2024 10-24-2023 Episodic Mycoses (3 sources) Tinea cruris; Translations: [...] [Cramp of limb] Onset: 02-28-2018 Episodic Other fractures (16 sources) Fracture of pelvis; Translations: [Fracture of unspecified parts of lumbosacral spine and pelvis, initial encounter for closed fracture] Onset: 08-07-2024 Resolved: 11-13-2024 10-24-2023 Episodic Other lower respiratory disease (6 sources) Cough; Translations: [Cough, unspecified] Onset: 12-04-2015 Episodic Other male genital disorders (20 sources) Pain in scrotum ; Translations: [Scrotal pain] Onset: 11-30-2023 Resolved: 11-13-2024 11-30-2023 Episodic Other nervous system disorders (2 [...] Onset: 05-03-2016 Episodic Other non-traumatic joint disorders (20 sources) Hip pain; Translations: [Pain in right hip] Onset: 11-30-2023 Resolved: 11-13-2024 11-30-2023 Episodic Other nutritional; endocrine; and metabolic disorders (20 sources) Obesity; Translations: [Obesity, unspecified] Onset: 12-08-2023 Resolved: 11-13-2024 12-08-2023 Chronic Residual codes; unclassified (3 sources) Family history of diabetes mellitus; Translations: [Family history of diabetes mellitus] Onset: 01-25-2014 Episodic Residual codes; unclassified (3 sources) C/O - a back symptom; Translations: [Other symptoms referable to back] Onset: 05-17-2016 Episodic Residual codes; unclassified (3 sources) Insomnia; Translations: [Insomnia, unspecified] Onset: 08-02-2018 Episodic Residual codes; unclassified (15 sources) Family history of cancer of colon; Translations: [Family history of malignant neoplasm of digestive organs] Onset: 08-07-2024 Resolved: 11-13-2024 07-20-2023 Episodic Comment on above: Problem List clean-u p per request of Phys. EHR Cmte Spondylosis; intervertebral disc disorders; other back problems (20 sources) Sciatica; Translations: [Sciatica, left side] Onset: 05-08-2018 Resolved: 11-13-2024 02-19-2021 Episodic Sprains and strains (6 sources) Lumbar sprain; Translations: [Sprain of ligaments of lumbar spine, initial encounter] Onset: 08-27-2014 Episodic Unclassified (1 source) LOW BACK PAIN, UNSPECIFIED; Translations: [LOW BACK PAIN, UNSPECIFIED] Onset: 06-01-2022 Unclassified (3 sources) Tetanus-diphtheria [Td] [DT]; Translations: [Tetanus-diphtheria [Td] [DT]] Onset: 08-25-2015 Unclassified (1 source) Lumbar pain M54.50 Results Test Name Value Interpretation Reference Range Facility Basophils Auto (Bld) [#/Vol] on 11-30-2024 Basophils (Bld) [#/Vol] Automated basophil count 0.0-0.1 [facility] Basophils/100 WBC Auto (Bld) on 11-30-2024 Basophils/100 WBC (Bld) Automated basophil % 0.2-2.[address] [facility] [address] MAXILLOFACIAL WO IV CONTR Donnie 11-30-2024 CT MAXILLOFACIAL WO IV CONTRAST Exam: CT MAXILLOFACIAL WO IV CONTRAST History: [...] side of the calvarium are partially visualized. IMPRESSION: Paranasal sinus disease as detailed. ELECTRONICALLY SIGNED BY: Victoriano Keller, DO Normal Not Available Cholesterol in LDL Calc [Mas s/Vol]on 11-30-2024 Cholesterol in LDL [Mass/Vol] Cholesterol in LDL [Mass/volume] in Serum or Plasma by calculation [facility] Comment on above: <100 mg/dl [id number] 0-129 mg/dl NEAR OR ABOVE [id number] mg/dl BORDERLINE [id number] mg/dl HIGH>190 mg/dl VERY HIGH Cholesterol in VLDL Calc [Ma ss/Vol]on 11-30-2024 Cholesterol in VLDL [Mass/Vol] Cholesterol in VLDL [Mass/volume] in Serum or Plasma by calculation [facility] Eosinophils/100 WBC Auto (Bl d)on 11-30-2024 Eosinophils/100 WBC (Bld) Automated eosinophil % 0.9-7.0 [facility] Erythrocyte distribution wid th Auto (RBC) [Ratio]on 11-30-2024 Erythrocyte distribution width (RBC) [Ratio] Erythrocyte distribution width [Ratio] by Automated count 11.0-15.0 [facility] Estimated glomerular filtrat ion rate (GFR) non- Americanon 11-30-2024 GFR/1.73 sq M.predicted among non-blacks MDRD (S/P/Bld) [Vol rate/Area] Estimated glomerular filtration rate (GFR) non- >=60 mL/min/1.73m 2 [facility] Globulin Calc (S) [Mass/Vol] on 11-30-2024 Globulin (S) [Mass/Vol] Serum globulin measurement by calculation (mass/volume) [facility] Hematocrit Auto (Bld) [Volum e fraction]on 11-30-2024 Hematocrit (Bld) [Volume fraction] Hematocrit [Volume Fraction] of Blood by Automated count Low 42.0-54.0 [facility] Hemoglobin [Mass/volume] in Bloodon 11-30-2024 Hemoglobin (Bld) [Mass/Vol] Hemoglobin [Mass/volume] in Blood Low 14.0-18.0 [facility] Laboratory - Chemistry and C hemistry - challengeon 11-30-2024 Albumin [Mass/Vol] 3.5 g/dL 3.4-5.[address] [facility] ALP [Catalytic activity/Vol] 61 U/L 46-116 [facility] ALT [Catalytic activity/Vol] 19 U/L 16-63 [facility] AST [Catalytic activity/Vol] 16 U/L 15-37 [facility] Bilirubin [Mass/Vol] 0.4 mg/dL 0.2-1.0 [facility] Calcium [Mass/Vol] 8.5 mg/dL 8.5-10.[address] [facility] Chloride [Moles/Vol] 106 mmol/L 98-107 [facility] Cholesterol [Mass/Vol] 129 mg/dL <=200 [facility] Cholesterol in HDL [Mass/Vol] 32 mg/dL Low 40-60 [facility] Comment on above: > or =60 mg/dl - LOW CARDIOVASCULAR RISK<40 mg/dl - HIGH CARDIOVASCULAR RISK CO2 [Moles/Vol] 28.9 mmol/L 21.0-32.0 [facility] Creatinine [Mass/Vol] 0.93 mg/dL 0.70-1.[address] [facility] GFR/1.73 sq M.predicted MDRD (S/P/Bld) [Vol rate/Area] mL/min/{1.73_m2} >=60 mL/min/1.73m 2 [facility] Glucose [Mass/Vol] 92 mg/dL 74-[address] [facility] Potassium [Moles/Vol] 4.4 mmol/L 3.5-5.[address] [facility] Protein [Mass/Vol] 6.5 g/dL 6.4-8.[address] [facility] Sodium [Moles/Vol] 141 mmol/L 136-[address] [facility] Triglyceride [Mass/Vol] 85 mg/dL <=150 [facility] Urea nitrogen [Mass/Vol] 10.0 mg/dL 7.0-18.0 [facility] Urea nitrogen/Creatinine [Mass ratio] 10.8 mg/mg [facility] Laboratory - Hematology and Cell countson 11-30-2024 Immature granulocytes/100 WBC (Bld) 0.3 % 0.0-0.5 [facility] Leukocytes [#/volume] correc camilo for nucleated erythrocytes in Blood by Automated counon 11-30-2024 WBC corrected for nucl RBC Auto (Bld) [#/Vol] Leukocytes [#/volume] corrected for nucleated erythrocytes in Blood by Automated coun 4.0-11.0 [facility] Lymphocytes Auto (Bld) [#/Vo l]on 11-30-2024 Lymphocytes (Bld) [#/Vol] Lymphocytes [#/volume] in Blood by Automated count 1.2-3.8 [facility] Lymphocytes/100 WBC Auto (Bl d)on 11-30-2024 Lymphocytes/100 WBC (Bld) Lymphocytes/100 leukocytes in Blood by Automated count 20.5-60.0 [facility] MCH Auto (RBC) [Entitic mass ]on 11-30-2024 MCH (RBC) [Entitic mass] MCH [Entitic mass] by Automated count Low 25.9-34.0 [facility] MCHC Auto (RBC) [Mass/Vol]on 11-30-2024 MCHC (RBC) [Mass/Vol] MCHC [Mass/volume] by Automated count 29.9-35.2 [facility] MCV Auto (RBC) [Entitic vol] on 11-30-2024 MCV (RBC) [Entitic vol] MCV [Entitic volume] by Automated count Low 80.0-94.0 [facility] Monocytes Auto (Bld) [#/Vol] on 11-30-2024 Monocytes (Bld) [#/Vol] Automated blood monocyte count 0.3-0.8 [facility] Monocytes/100 WBC Auto (Bld) on 11-30-2024 Monocytes/100 WBC (Bld) Automated monocyte % 1.7-12.0 [facility] Neutrophils Auto (Bld) [#/Vo l]on 11-30-2024 Neutrophils (Bld) [#/Vol] Neutrophils [#/volume] in Blood by Automated count 1.4-6.5 [facility] Neutrophils/100 WBC Auto (Bl d)on 11-30-2024 Neutrophils/100 WBC (Bld) Automated neutrophil % 43.0-75.0 [facility] No Panel Informationon 11-30 Eosinophils # (Auto) 0.3 10 3/uL 0.0-0.[address] [facility] Immature Granulocyte # (Auto) 0.02 10 3/uL 0.00-0.03 [facility] Prostate Specific Antigen Screen 2.52 ng/mL <=4.00 [facility] Platelet mean volume Auto (B ld) [Entitic vol]on 11-30-2024 Platelet mean volume (Bld) [Entitic vol] Platelet mean volume [Entitic volume] in Blood by Automated count Low 9.5-13.5 [facility] Platelets Auto (Bld) [#/Vol] on 11-30-2024 Platelets (Bld) [#/Vol] Platelets [#/volume] in Blood by Automated count 150-450 [facility] RBC Auto (Bld) [#/Vol]on RBC (Bld) [#/Vol] Erythrocytes [#/volume] in Blood by Automated count 4.70-6.10 [facility] Serum or plasma albumin/glob ulin mass ratioon 11-30-2024 Albumin/Globulin [Mass ratio] Serum or plasma albumin/globulin mass ratio [facility] Serum or plasma anion gap de terminationon 11-30-2024 Anion gap [Moles/Vol] Serum or plasma anion gap determination [facility] Serum or plasma total choles terol/high density lipoprotein (HDL) cholesterol mass inrav 11-30-2024 Cholesterol.total/Chol esterol in HDL [Mass ratio] Serum or plasma total cholesterol/high density lipoprotein (HDL) cholesterol mass rat [facility] Comment on above: 3.3 - 4.4 LOW RISK4. 4 - 7.1 AVERAGE RISK7.1 - 11.0 MODERATE RISK>11.0 HIGH RISK XR PELVIS 3+ VIEWSon 025 XR PELVIS 3+ VIEWS Interpreted By: Sushma Black, STUDY: Pelvis, 5 views. INDICATION: Signs/Symptoms:pelvi s fracture. COMPARISON: 05/23/2024. ACCESSION NUMBER(S): [id number] ORDERING CLINICIAN: ADAM NAVARRO FINDINGS: No acute fracture or malalignment. Posterior pelvic ring fusion with trans sacral trans iliac screws. Anterior pelvic ring fusion with plate and screws. There is interval fracture of 1 of the screws in the region of the left pubic body. Otherwise, no hardware complication. Pelvic ring is maintained. Bilateral hip joints are unremarkable with well preserved joint spaces. Soft tissues are within normal limits. IMPRESSION: As above. MACRO: None. Signed by: Sushma Black 11/22/2024 1:23 PM Dictation workstation: [id number] [facility] Comment on above: Order Comment: 5 vie w of the pelvis Influenza virus B Ag [Presen ce] in Upper respiratory specimen by Rapid immunoassayon 09-26-2024 FLUBV Ag IA.rapid Ql (Nph) Influenza virus B Ag [Presence] in Upper respiratory specimen by Rapid immunoassay [facility] No Panel Informationon 09-26 Influenza Type A (Rapid) Negative [facility] POC SARS CoV-2 Antigen Negative [facility] Basophils Auto (Bld) [#/Vol] on 08-29-2024 Basophils (Bld) [#/Vol] Automated basophil count 0.0-0.1 [facility] Basophils/100 WBC Auto (Bld) on 08-29-2024 Basophils/100 WBC (Bld) Automated basophil % 0.2-2.0 [facility] Eosinophils/100 WBC Auto (Bl d)on 08-29-2024 Eosinophils/100 WBC (Bld) Automated eosinophil % 0.9-7.0 [facility] Erythrocyte distribution wid th Auto (RBC) [Ratio]on 08-29-2024 Erythrocyte distribution width (RBC) [Ratio] Erythrocyte distribution width [Ratio] by Automated count 11.0-15.0 [facility] Estimated glomerular filtrat ion rate (GFR) non- Americanon 08-29-2024 GFR/1.73 sq M.predicted among non-blacks MDRD (S/P/Bld) [Vol rate/Area] Estimated glomerular filtration rate (GFR) non- >=60 mL/min/1.73m 2 [facility] Hematocrit Auto (Bld) [Volum e fraction]on 08-29-2024 Hematocrit (Bld) [Volume fraction] Hematocrit [Volume Fraction] of Blood by Automated count Low 42.0-54.0 [facility] Hemoglobin [Mass/volume] in Bloodon 08-29-2024 Hemoglobin (Bld) [Mass/Vol] Hemoglobin [Mass/volume] in Blood Low 14.0-18.0 [facility] Laboratory - Chemistry and C hemistry - challengeon 08-29-2024 Calcium [Mass/Vol] 8.7 mg/dL 8.5-10.[address] [facility] Chloride [Moles/Vol] 102 mmol/L 98-107 [facility] CO2 [Moles/Vol] 27.9 mmol/L 21.0-32.0 [facility] Creatinine [Mass/Vol] 1.20 mg/dL 0.70-1.[address] [facility] GFR/1.73 sq M.predicted MDRD (S/P/Bld) [Vol rate/Area] mL/min/{1.73_m2} >=60 mL/min/1.73m 2 [facility] Glucose [Mass/Vol] 113 mg/dL High 74-[address] [facility] Potassium [Moles/Vol] 4.0 mmol/L 3.5-5.[address] [facility] Sodium [Moles/Vol] 138 mmol/L 136-[address] [facility] Urea nitrogen [Mass/Vol] 10.0 mg/dL 7.0-18.0 [facility] Urea nitrogen/Creatinine [Mass ratio] 8.3 mg/mg [facility] Laboratory - Hematology and Cell countson 08-29-2024 Immature granulocytes/100 WBC (Bld) 0.4 % 0.0-0.5 [facility] Leukocytes [#/volume] correc camilo for nucleated erythrocytes in Blood by Automated counon 08-29-2024 WBC corrected for nucl RBC Auto (Bld) [#/Vol] Leukocytes [#/volume] corrected for nucleated erythrocytes in Blood by Automated coun High 4.0-11.0 [facility] Lymphocytes Auto (Bld) [#/Vo l]on 08-29-2024 Lymphocytes (Bld) [#/Vol] Lymphocytes [#/volume] in Blood by Automated count 1.2-3.8 [facility] Lymphocytes/100 WBC Auto (Bl d)on 08-29-2024 Lymphocytes/100 WBC (Bld) Lymphocytes/100 leukocytes in Blood by Automated count Low 20.5-60.0 [facility] MCH Auto (RBC) [Entitic mass ]on 08-29-2024 MCH (RBC) [Entitic mass] MCH [Entitic mass] by Automated count Low 25.9-34.0 [facility] MCHC Auto (RBC) [Mass/Vol]on 08-29-2024 MCHC (RBC) [Mass/Vol] MCHC [Mass/volume] by Automated count 29.9-35.2 [facility] MCV Auto (RBC) [Entitic vol] on 08-29-2024 MCV (RBC) [Entitic vol] MCV [Entitic volume] by Automated count Low 80.0-94.0 [facility] Monocytes Auto (Bld) [#/Vol] on 08-29-2024 Monocytes (Bld) [#/Vol] Automated blood monocyte count 0.3-0.8 [facility] Monocytes/100 WBC Auto (Bld) on 08-29-2024 Monocytes/100 WBC (Bld) Automated monocyte % 1.7-12.0 [facility] Neutrophils Auto (Bld) [#/Vo l]on 08-29-2024 Neutrophils (Bld) [#/Vol] Neutrophils [#/volume] in Blood by Automated count High 1.4-6.5 [facility] Neutrophils/100 WBC Auto (Bl d)on 08-29-2024 Neutrophils/100 WBC (Bld) Automated neutrophil % High 43.0-75.0 [facility] No Panel Informationon 08-29 Eosinophils # (Auto) 0.1 10 3/uL 0.0-0.[address] [facility] Immature Granulocyte # (Auto) 0.05 10 3/uL High 0.00-0.03 [facility] Platelet mean volume Auto (B ld) [Entitic vol]on 08-29-2024 Platelet mean volume (Bld) [Entitic vol] Platelet mean volume [Entitic volume] in Blood by Automated count 9.5-13.5 [facility] Platelets Auto (Bld) [#/Vol] on 08-29-2024 Platelets (Bld) [#/Vol] Platelets [#/volume] in Blood by Automated count 150-450 [facility] RBC Auto (Bld) [#/Vol]on RBC (Bld) [#/Vol] Erythrocytes [#/volume] in Blood by Automated count 4.70-6.10 [facility] Serum or plasma anion gap de terminationon 08-29-2024 Anion gap [Moles/Vol] Serum or plasma anion gap determination [facility] Consulton 08-07-2024 Consult [id number] Prosper Milian 1975 M Date Provider Department Center 08/07/2024 KeyurМаринаSinCYNDI [facility] [place] Family History Problem Relation Age of Onset Cancer Father Cancer Paternal Grandfather Family Status - Relation Status Age at Father Paternal Grandfather Level of Service:12857 SC OFFICE/OP CONSLTJ NEW/EST PT MOD MDM 40 MINUTES Reason for Visit and Comments: Consult [484] Normal [facility] NM beba perf SPECT rest stron 07-10-2024 NM beba perf SPECT rest str [facility] [place] [address] Nuclear Medicine Report Signed Patient: Prosper Milian MR#: [id number] 6 : 1975 Acct:[id number] Age/Sex: 48 / M ADM Date: 07/09/24 Loc: Room: Type: [facility] Attending Dr: Chantal Mart MD Copies to: [...] Evelyn Macdonald M.D.07/10/2024 2:38 PM Dictation Location: [place] [address] Transcribed By: [facility] 07/10/24 1438 Dictated By: Evelyn Macdonald MD 07/10/24 1435 Signed By: 07/10/24 1438 Normal [facility] XR PELVIS 3+ VIEWSon 024 XR PELVIS 3+ VIEWS Interpreted By: Cesar Solomon, STUDY: XR PELVIS 3+ VIEWS; ; 05/23/2024 1:18 pm INDICATION: Signs/Symptoms:pelvi s fracture. ,R10.2 Pelvic and perineal pain COMPARISON: 02/29/2024 ACCESSION NUMBER(S): [id number] ORDERING CLINICIAN: ADAM NAVARRO FINDINGS: Pelvis, five views Postsurgical changes in the pelvis with screw fixation through the sacrum and the plate and screw fixation of the pubic symphysis. No acute fracture seen. Mild degenerative change of the hips IMPRESSION: Postsurgical change about the pelvis without hardware failure. MACRO: None Signed by: Cesar Solomon 05/24/2024 7:08 AM Dictation workstation: [id number] [facility] Comment on above: Order Comment: 5 vie w of the pelvis XR PELVIS 3+ VIEWSon 024 XR PELVIS 3+ VIEWS Interpreted By: Cesar Solomon, STUDY: XR PELVIS 3+ VIEWS; ; 02/29/2024 12:59 pm INDICATION: Signs/Symptoms:pelvi s fracture. COMPARISON: 02/01/2020 ACCESSION NUMBER(S): [id number] ORDERING CLINICIAN: ADAM NAVARRO FINDINGS: Pelvis, five views Postsurgical changes in the sacrum and the pubic symphysis with screws and plate and screw fixation respectively. The hardware is intact. There is no malalignment. No significant degenerative changes IMPRESSION: Postsurgical change in the pelvis with intact hardware. No malalignment seen MACRO: None Signed by: Cesar Solomon 03/01/2024 6:55 PM Dictation workstation: [id number] [facility] Comment on above: Order Comment: 5 vie w of the pelvis XR PELVIS 3+ VIEWSon 024 XR PELVIS 3+ VIEWS Interpreted By: Sushma Black, STUDY: Pelvis, 5 views. INDICATION: Signs/Symptoms:pelvi s fracture. COMPARISON: 12/28/2023. ACCESSION NUMBER(S): [id number] ORDERING CLINICIAN: ADAM NAVARRO FINDINGS: No acute [...] Sushma Black 02/02/2024 7:24 PM Dictation workstation: [id number] [facility] Comment on above: Order Comment: 5 vie w of the pelvis XR PELVIS 3+ VIEWSon 024 XR PELVIS 3+ VIEWS Interpreted By: Caryn Norman, STUDY: XR PELVIS 3+ VIEWS; ; 12/28/2023 12:54 pm INDICATION: Signs/Symptoms:pain. COMPARISON: Pelvis radiographs dated 12/08/2023. ACCESSION NUMBER(S): [id number] ORDERING CLINICIAN: ADAM NAVARRO FINDINGS: Extensive postsurgical [...] Caryn Norman 12/30/2023 12:52 PM Dictation workstation: [id number] [facility] Comment on above: Order Comment: 5v pe lvis (AP/inlet/outlet/Judet's) Basic metabolic 2000 panelon 12-14-2023 Anion gap [Moles/Vol] 12 mmol/L 10 - 2 0 mmol/L [facility] Calcium [Mass/Vol] 8.3 mg/dL Low 8.6 - 10. 6 mg/dL [facility] Chloride [Moles/Vol] 103 mmol/L 98 - 10 7 mmol/L [facility] CO2 [Moles/Vol] 27 mmol/L 21 - 32 mmol/L [facility] Creatinine [Mass/Vol] 0.82 mg/dL 0.50 - 1.30 mg/dL [facility] eGFR - PINF [facility] Comment on above: Calculations of cris mated GFR are performed using the 2020 CKD-EPI Study Refit equation without the race variable for the IDMS-Traceable creatinine methods. https://jasn.asnjournals.org/content//ASN.63025 66480 Glucose [Mass/Vol] 103 mg/dL High 74 - 99 mg/dL [facility] Interpretation and review of laboratory results Abnormal [facility] Potassium [Moles/Vol] 3.6 mmol/L 3.5 - 5.3 mmol/L [facility] Sodium [Moles/Vol] 138 mmol/L 136 - 145 mmol/L [facility] Urea nitrogen [Mass/Vol] 14 mg/dL 6 - 23 mg/dL [facility] Anion gap [Moles/Vol] 12 mmol/L Normal 10-20 [facility] Comment on above: Performed By: #### 2 4321-2 ####ANASTACIO Hodge ([id number])[facility] ([facility])[address] [place] [address] Calcium [Mass/Vol] 8.3 mg/dL Low 8.6-10.[address] [facility] Comment on above: Performed By: #### 2 4321-2 ####ANASTACIO Hodge ([id number])[facility] ([facility])[address] [place] [address] Chloride [Moles/Vol] 103 mmol/L Normal 98-107 [facility] Comment on above: Performed By: #### 2 4321-2 ####ANASTACIO Hodge ([id number])[facility] ([facility])[address] [place] [address] CO2 [Moles/Vol] 27 mmol/L Normal 21-32 [facility] Comment on above: Performed By: #### 2 4321-2 ####ANASTACIO Hodge ([id number])[facility] ([facility])[address] [place] [address] Creatinine [Mass/Vol] 0.82 mg/dL Normal 0.50-1.30 [facility] Comment on above: Performed By: #### 2 4321-2 ####ANASTACIO Hodge ([id number])[facility] ([facility])[address] [place] [address] GFR/1.73 sq M.predicted MDRD (S/P/Bld) [Vol rate/Area] mL/min/{1.73_m2} Normal >60 [facility] Comment on above: Result Comment: Calc ulations of estimated GFR are performed using the 2020 CKD-EPI Study Refit equation without the race variable for the IDMS-Traceable creatinine methods. https://jasn.asnjournals.org/content//ASN.17702 44429 Performed By: #### 2 4321-2 ####ANASTACIO Hodge ([id number])[facility] ([facility])[address] [place] [address] Glucose [Mass/Vol] 103 mg/dL High 74-[address] [facility] Comment on above: Performed By: #### 2 4321-2 ####ANASTACIO Hodge ([id number])[facility] ([facility])[address] [place] [address] Potassium [Moles/Vol] 3.6 mmol/L Normal 3.5-5.3 [facility] Comment on above: Performed By: #### 2 4321-2 ####ANASTACIO WOOD L ([id number])[facility] ([facility])[address] [place] [address] Sodium [Moles/Vol] 138 mmol/L Normal 136-[address] [facility] Comment on above: Performed By: #### 2 4321-2 ####ANASTACIO Hodge ([id number])[facility] ([facility])[address] [place] [address] Urea nitrogen [Mass/Vol] 14 mg/dL Normal 6-23 [facility] Comment on above: Performed By: #### 2 4321-2 ####ANASTACIO Hodge ([id number])[facility] ([facility])[address] [place] [id number] CBC W Auto Differential pane l (Bld)on 12-14-2023 Basophils (Bld) [#/Vol] 0.05 10*3/uL [facility] Basophils/100 WBC (Bld) 0.6 % 0.0 - 2.0 % [facility] Eosinophils (Bld) [#/Vol] 0.30 10*3/uL [facility] Eosinophils/100 WBC (Bld) 3.3 % 0.0 - 6.0 % [facility] Erythrocyte distribution width (RBC) [Ratio] 13.1 % 11.5 - 14.5 % [facility] Hematocrit (Bld) [Volume fraction] 32.7 % Low 41.0 - 52.0 % [facility] Hemoglobin (Bld) [Mass/Vol] 10.8 g/dL Low 13.5 - 17.5 g/dL [facility] Immature granulocytes (Bld) [#/Vol] 0.13 10*3/uL [facility] Immature granulocytes/100 WBC (Bld) 1.4 % High 0.0 - 0.9 % [facility] Comment on above: Immature Granulocyte Count (IG) includes promyelocytes, myelocytes and metamyelocytes but does not include bands. Percent differential counts (%) should be interpreted in the context of the absolute cell counts (cells/UL). Interpretation and review of laboratory results Abnormal [facility] Lymphocytes (Bld) [#/Vol] 1.61 10*3/uL [facility] Lymphocytes/100 WBC (Bld) 17.8 % 13.0 - 44.0 % [facility] MCH (RBC) [Entitic mass] 28.1 pg 26.0 - 34.0 pg [facility] MCHC (RBC) [Mass/Vol] 33.0 g/dL 32.0 - 36.0 g/dL [facility] MCV (RBC) [Entitic vol] 85 fL 80 - 100 fL [facility] Monocytes (Bld) [#/Vol] 0.71 10*3/uL [facility] Monocytes/100 WBC (Bld) 7.8 % 2.0 - 10.0 % [facility] Neutrophils (Bld) [#/Vol] 6.25 10*3/uL [facility] Comment on above: Percent differential counts (%) should be interpreted in the context of the absolute cell counts (cells/uL). Neutrophils/100 WBC (Bld) 69.1 % 40.0 - 80.0 % [facility] Nucleated RBC/100 WBC (Bld) [Ratio] 0.0 % [facility] Platelets (Bld) [#/Vol] 280 10*3/uL [facility] RBC (Bld) [#/Vol] 3.85 10*6/uL Low [facility] WBC (Bld) [#/Vol] 9.1 10*3/uL [facility] Basophils (Bld) [#/Vol] 0.05 x10*3/uL Normal 0.00-0.10 [facility] Comment on above: Performed By: #### 5 7021-8 ####ANASTACIO Hodge ([id number])[facility] ([facility])[address] [place] [address] Basophils/100 WBC (Bld) 0.6 % Normal 0.0-2.0 [facility] Comment on above: Performed By: #### 5 7021-8 ####ANASTACIO Hodge ([id number])[facility] ([facility])[address] [place] [address] Eosinophils (Bld) [#/Vol] 0.30 x10*3/uL Normal 0.00-0.70 [facility] Comment on above: Performed By: #### 5 7021-8 ####ANASTACIO Hodge ([id number])[facility] ([facility])[address] [place] [address] Eosinophils/100 WBC (Bld) 3.3 % Normal 0.0-6.0 [facility] Comment on above: Performed By: #### 5 7021-8 ####ANASTACIO Hodge ([id number])[facility] ([facility])[address] [place] [address] Erythrocyte distribution width (RBC) [Ratio] 13.1 % Normal 11.5-14.5 [facility] Comment on above: Performed By: #### 5 7021-8 ####ANASTACIO Hodge ([id number])[facility] ([facility])[address] [place] [address] Hematocrit (Bld) [Volume fraction] 32.7 % Low 41.0-52.0 [facility] Comment on above: Performed By: #### 5 7021-8 ####ANASTACIO oHdge ([id number])[facility] ([facility])[address] [place] [address] Hemoglobin (Bld) [Mass/Vol] 10.8 g/dL Low 13.5-17.5 [facility] Comment on above: Performed By: #### 5 7021-8 ####NAASTACIO Hodge ([id number])[facility] ([facility])[address] [place] [address] Immature granulocytes (Bld) [#/Vol] 0.13 x10*3/uL Normal 0.00-0.70 [facility] Comment on above: Performed By: #### 5 7021-8 ####ANASTACIO WOOD L ([id number])[facility] ([facility])[address] [place] [address] Immature granulocytes/100 WBC (Bld) 1.4 % High 0.0-0.9 [facility] Comment on above: Result Comment: Brittany ture Granulocyte Count (IG) includes promyelocytes, myelocytes and metamyelocytes but does not include bands. Percent differential counts (%) should be interpreted in the context of the absolute cell counts (cells/UL). Performed By: #### 5 7021-8 ####ANASTACIO Hodge ([id number])[facility] ([facility])[address] [place] [address] Lymphocytes (Bld) [#/Vol] 1.61 x10*3/uL Normal 1.20-4.80 [facility] Comment on above: Performed By: #### 5 7021-8 ####ANASTACIO Hodge ([id number])[facility] ([facility])[address] [place] [address] Lymphocytes/100 WBC (Bld) 17.8 % Normal 13.0-44.0 [facility] Comment on above: Performed By: #### 5 7021-8 ####ANASTACIO Hodge ([id number])[facility] ([facility])[address] [place] [address] MCH (RBC) [Entitic mass] 28.1 pg Normal 26.0-34.0 [facility] Comment on above: Performed By: #### 5 7021-8 ####ANASTACIO Hodge ([id number])[facility] ([facility])[address] [place] [address] MCHC (RBC) [Mass/Vol] 33.0 g/dL Normal 32.0-36.0 [facility] Comment on above: Performed By: #### 5 7021-8 ####ANASTACIO Hodge ([id number])[facility] ([facility])[address] [place] [address] MCV (RBC) [Entitic vol] 85 fL Normal 80-100 [facility] Comment on above: Performed By: #### 5 7021-8 ####ANASTACIO Hodge ([id number])[facility] ([facility])[address] [place] [address] Monocytes (Bld) [#/Vol] 0.71 x10*3/uL Normal 0.10-1.00 [facility] Comment on above: Performed By: #### 5 7021-8 ####ANASTACIO Hodge ([id number])[facility] ([facility])[address] [place] [address] Monocytes/100 WBC (Bld) 7.8 % Normal 2.0-10.0 [facility] Comment on above: Performed By: #### 5 7021-8 ####ANASTACIO Hodge ([id number])[facility] ([facility])[address] [place] [address] Neutrophils (Bld) [#/Vol] 6.25 x10*3/uL Normal 1.20-7.70 [facility] Comment on above: Result Comment: Perc ent differential counts (%) should be interpreted in the context of the absolute cell counts (cells/uL). Performed By: #### 5 7021-8 ####ANASTACIO Hodge ([id number])[facility] ([facility])[address] [place] [address] Neutrophils/100 WBC (Bld) 69.1 % Normal 40.0-80.0 [facility] Comment on above: Performed By: #### 5 7021-8 ####ANASTACIO Hodge ([id number])[facility] ([facility])[address] [place] [address] Nucleated RBC/100 WBC (Bld) [Ratio] 0.0 /100 WBCs Normal 0.0-0.0 [facility] Comment on above: Performed By: #### 5 7021-8 ####ANASTACIO Hodge ([id number])[facility] ([facility])[address] [place] [address] Platelets (Bld) [#/Vol] 280 x10*3/uL Normal 150-450 [facility] Comment on above: Performed By: #### 5 7021-8 ####ANASTACIO WOOD L ([id number])[facility] ([facility])[address] [place] [address] RBC (Bld) [#/Vol] 3.85 x10*6/uL Low 4.50-5.90 [facility] Comment on above: Performed By: #### 5 7021-8 ####ANASTACIO Hodge ([id number])[facility] ([facility])[address] [place] [address] WBC (Bld) [#/Vol] 9.1 x10*3/uL Normal 4.4-11.3 [facility] Comment on above: Performed By: #### 5 7021-8 ####ANASTACIO Hodge ([id number])[facility] ([facility])[address] [place] [address] Electrocardiogram, 12-lead P RN ACS symptomsOrdered By: Dustin Lyman on 12-14-2023 Atrial Rate 104 BPM [facility] Work Phone: P [place] 43 degrees [facility] Work Phone: [phone] P Offset 196 ms [facility] Work Phone: [phone] P Onset 139 ms [facility] Work Phone: SC Interval 154 ms [facility] Work Phone: [phone] Q Onset 216 ms [facility] Work Phone: [phone] QRS Count 17 beats [facility] Work Phone: QRS Duration 94 ms [facility] Work Phone: [phone] QT Interval 346 ms [facility] Work Phone: [phone] QTC Calculation(Bazett) 454 ms [facility] Work Phone: QTC Fredericia 415 ms [facility] Work Phone: [phone] R [place] 9 degrees [facility] Work Phone: [phone] T [place] 27 degrees [facility] Work Phone: [phone] T Offset 389 ms [facility] Work Phone: [phone] Ventricular Rate 104 BPM [facility]: [phone] [facility] Work Phone: [phone] Electrocardiogram, 12-lead P RN ACS symptomson 12-14-2023 Sinus tachycardia Minimal voltage criteria for LVH, may be normal variant Borderline ECG No previous ECGs available Confirmed by Dustin Lyman ([id number]) on 12/14/2023 2:58:33 PM MUSE Dustin Lyman MD - 12/14/2023 Sinus tachycardia Minimal voltage criteria for LVH, may be normal variant Borderline ECG No previous ECGs available Confirmed by Dustin Lyman ([id number]) on 12/14/2023 2:58:33 PM [facility] Work Phone: Magnesiumon 12-14-2023 Magnesium [Mass/Vol] 2.11 mg/dL 1.60 - 2.40 mg/dL [facility] Magnesium [Mass/Vol] 2.11 mg/dL Normal 1.60-2.40 [facility] Comment on above: Performed By: #### 1 9123-9 ####ANASTACIO Hodge ([id number])[facility] ([facility])[address] [place] [address] Magnesium [Mass/Vol]on 12-13 Interpretation and review of laboratory results Normal [facility] No Panel Informationon 12-13 [facility] Basic metabolic 2000 panelon 12-13-2023 Anion gap [Moles/Vol] 13 mmol/L 10 - 2 0 mmol/L [facility] Calcium [Mass/Vol] 8.5 mg/dL Low 8.6 - 10. 6 mg/dL [facility] Chloride [Moles/Vol] 100 mmol/L 98 - 10 7 mmol/L [facility] CO2 [Moles/Vol] 28 mmol/L 21 - 32 mmol/L [facility] Creatinine [Mass/Vol] 0.92 mg/dL 0.50 - 1.30 mg/dL [facility] eGFR - PINF [facility] Comment on above: Calculations of cris mated GFR are performed using the 2020 CKD-EPI Study Refit equation without the race variable for the IDMS-Traceable creatinine methods. https://jasn.asnjournals.org/content/early//ASN.29724 76615 Glucose [Mass/Vol] 101 mg/dL High 74 - 99 mg/dL [facility] Interpretation and review of laboratory results Abnormal [facility] Potassium [Moles/Vol] 3.9 mmol/L 3.5 - 5.3 mmol/L [facility] Sodium [Moles/Vol] 137 mmol/L 136 - 145 mmol/L [facility] Urea nitrogen [Mass/Vol] 16 mg/dL 6 - 23 mg/dL [facility] Anion gap [Moles/Vol] 13 mmol/L Normal 10-20 [facility] Comment on above: Performed By: #### 2 4321-2 ####ANASTACIO Hodge ([id number])[facility] ([facility])[address] [place] [address] Calcium [Mass/Vol] 8.5 mg/dL Low 8.6-10.[address] [facility] Comment on above: Performed By: #### 2 4321-2 ####ANASTACIO Hodge ([id number])[facility] ([facility])[address] [place] [address] Chloride [Moles/Vol] 100 mmol/L Normal 98-107 [facility] Comment on above: Performed By: #### 2 4321-2 ####ANASTACIO Hodge ([id number])[facility] ([facility])[address] [place] [address] CO2 [Moles/Vol] 28 mmol/L Normal 21-32 [facility] Comment on above: Performed By: #### 2 4321-2 ####ANASTACIO Hodge ([id number])[facility] ([facility])[address] [place] [address] Creatinine [Mass/Vol] 0.92 mg/dL Normal 0.50-1.30 [facility] Comment on above: Performed By: #### 2 4321-2 ####ANASTACIO Hodge ([id number])[facility] ([facility])[address] [place] [address] GFR/1.73 sq M.predicted MDRD (S/P/Bld) [Vol rate/Area] mL/min/{1.73_m2} Normal >60 [facility] Comment on above: Result Comment: Calc ulations of estimated GFR are performed using the 2020 CKD-EPI Study Refit equation without the race variable for the IDMS-Traceable creatinine methods. https://jasn.asnjournals.org/content/early/ASN.63932 36988 Performed By: #### 2 4321-2 ####ANASTACIO Hodge ([id number])[facility] ([facility])[address] [place] [address] Glucose [Mass/Vol] 101 mg/dL High 74-[address] [facility] Comment on above: Performed By: #### 2 4321-2 ####ANASTACIO Hodge ([id number])[facility] ([facility])[address] [place] [address] Potassium [Moles/Vol] 3.9 mmol/L Normal 3.5-5.3 [facility] Comment on above: Performed By: #### 2 4321-2 ####ANASTACIO Hodge ([id number])[facility] ([facility])[address] [place] [address] Sodium [Moles/Vol] 137 mmol/L Normal 136-[address] [facility] Comment on above: Performed By: #### 2 4321-2 ####ANASTACIO WOOD L ([id number])[facility] ([facility])[address] [place] [address] Urea nitrogen [Mass/Vol] 16 mg/dL Normal 6-23 [facility] Comment on above: Performed By: #### 2 4321-2 ####ANASTACIO WOOD L ([id number])[facility] ([facility])[address] [place] [address] CBC W Auto Differential pane l (Bld)on 12-13-2023 Basophils (Bld) [#/Vol] 0.06 10*3/uL [facility] Basophils/100 WBC (Bld) 0.5 % 0.0 - 2.0 % [facility] Eosinophils (Bld) [#/Vol] 0.40 10*3/uL [facility] Eosinophils/100 WBC (Bld) 3.4 % 0.0 - 6.0 % [facility] Erythrocyte distribution width (RBC) [Ratio] 13.1 % 11.5 - 14.5 % [facility] Hematocrit (Bld) [Volume fraction] 36.4 % Low 41.0 - 52.0 % [facility] Hemoglobin (Bld) [Mass/Vol] 12.0 g/dL Low 13.5 - 17.5 g/dL [facility] Immature granulocytes (Bld) [#/Vol] 0.17 10*3/uL [facility] Immature granulocytes/100 WBC (Bld) 1.4 % High 0.0 - 0.9 % [facility] Comment on above: Immature Granulocyte Count (IG) includes promyelocytes, myelocytes and metamyelocytes but does not include bands. Percent differential counts (%) should be interpreted in the context of the absolute cell counts (cells/UL). Interpretation and review of laboratory results Abnormal [facility] Lymphocytes (Bld) [#/Vol] 2.07 10*3/uL [facility] Lymphocytes/100 WBC (Bld) 17.5 % 13.0 - 44.0 % [facility] MCH (RBC) [Entitic mass] 28.1 pg 26.0 - 34.0 pg [facility] MCHC (RBC) [Mass/Vol] 33.0 g/dL 32.0 - 36.0 g/dL [facility] MCV (RBC) [Entitic vol] 85 fL 80 - 100 fL [facility] Monocytes (Bld) [#/Vol] 0.87 10*3/uL [facility] Monocytes/100 WBC (Bld) 7.3 % 2.0 - 10.0 % [facility] Neutrophils (Bld) [#/Vol] 8.28 10*3/uL High [facility] Comment on above: Percent differential counts (%) should be interpreted in the context of the absolute cell counts (cells/uL). Neutrophils/100 WBC (Bld) 69.9 % 40.0 - 80.0 % [facility] Nucleated RBC/100 WBC (Bld) [Ratio] 0.0 % [facility] Platelets (Bld) [#/Vol] 307 10*3/uL [facility] RBC (Bld) [#/Vol] 4.27 10*6/uL Low [facility] WBC (Bld) [#/Vol] 11.9 10*3/uL High [facility] Basophils (Bld) [#/Vol] 0.06 x10*3/uL Normal 0.00-0.10 [facility] Comment on above: Performed By: #### 5 7021-8 ####ANASTACIO Hodge ([id number])[facility] ([facility])[address] [place] [address] Basophils/100 WBC (Bld) 0.5 % Normal 0.0-2.0 [facility] Comment on above: Performed By: #### 5 7021-8 ####ANASTACIO Hodge ([id number])[facility] ([facility])[address] [place] [address] Eosinophils (Bld) [#/Vol] 0.40 x10*3/uL Normal 0.00-0.70 [facility] Comment on above: Performed By: #### 5 7021-8 ####ANASTACIO Hodge ([id number])[facility] ([facility])[address] [place] [address] Eosinophils/100 WBC (Bld) 3.4 % Normal 0.0-6.0 [facility] Comment on above: Performed By: #### 5 7021-8 ####ANASTACIO WOOD L ([id number])[facility] ([facility])[address]32 [place] [address] Erythrocyte distribution width (RBC) [Ratio] 13.1 % Normal 11.5-14.5 [facility] Comment on above: Performed By: #### 5 7021-8 ####ANASTACIO WOOD L ([id number])[facility] ([facility])[address] [place] [address] Hematocrit (Bld) [Volume fraction] 36.4 % Low 41.0-52.0 [facility] Comment on above: Performed By: #### 5 7021-8 ####ANASTACIO KENNYMOTZER L ([id number])[facility] ([facility])[address] [place] [address] Hemoglobin (Bld) [Mass/Vol] 12.0 g/dL Low 13.5-17.5 [facility] Comment on above: Performed By: #### 5 7021-8 ####ANASTACIO KENNYMOTZER L ([id number])[facility] ([facility])[address] [place] [address] Immature granulocytes (Bld) [#/Vol] 0.17 x10*3/uL Normal 0.00-0.70 [facility] Comment on above: Performed By: #### 5 7021-8 ####ANASTACIO KENNYMOTZER L ([id number])[facility] ([facility])[address] [place] [address] Immature granulocytes/100 WBC (Bld) 1.4 % High 0.0-0.9 [facility] Comment on above: Result Comment: Brittany ture Granulocyte Count (IG) includes promyelocytes, myelocytes and metamyelocytes but does not include bands. Percent differential counts (%) should be interpreted in the context of the absolute cell counts (cells/UL). Performed By: #### 5 7021-8 ####ANASTACIO HAMMTZSABINE L ([id number])[facility] ([facility])[address] [place] [address] Lymphocytes (Bld) [#/Vol] 2.07 x10*3/uL Normal 1.20-4.80 [facility] Comment on above: Performed By: #### 5 7021-8 ####ANASTACIO KENNYMOTZER L ([id number])[facility] ([facility])[address] [place] [address] Lymphocytes/100 WBC (Bld) 17.5 % Normal 13.0-44.0 [facility] Comment on above: Performed By: #### 5 7021-8 ####ANASTACIO KENNYMOTZER L ([id number])[facility] ([facility])[address] [place] [address] MCH (RBC) [Entitic mass] 28.1 pg Normal 26.0-34.0 [facility] [place] [facility] Comment on above: Performed By: #### 5 7021-8 ####ANASTACIO Hodge ([id number])[facility] ([facility])[address] [place] [address] MCHC (RBC) [Mass/Vol] 33.0 g/dL Normal 32.0-36.0 [facility] Comment on above: Performed By: #### 5 7021-8 ####ANASTACIO Hodge ([id number])[facility] ([facility])[address] [place] [address] MCV (RBC) [Entitic vol] 85 fL Normal 80-100 [facility] [place] [facility] Comment on above: Performed By: #### 5 7021-8 ####ANASTACIO Hodge ([id number])[facility] ([facility])[address] [place] [address] Monocytes (Bld) [#/Vol] 0.87 x10*3/uL Normal 0.10-1.00 [facility] [place] [facility] Comment on above: Performed By: #### 5 7021-8 ####ANASTACIO Hodge ([id number])[facility] ([facility])[address] [place] [address] Monocytes/100 WBC (Bld) 7.3 % Normal 2.0-10.0 [facility] [place] [facility] Comment on above: Performed By: #### 5 7021-8 ####ANASTACIO Hodge ([id number])[facility] ([facility])[address] [place] [address] Neutrophils (Bld) [#/Vol] 8.28 x10*3/uL High 1.20-7.70 [facility] [place] [facility] Comment on above: Result Comment: Perc ent differential counts (%) should be interpreted in the context of the absolute cell counts (cells/uL). Performed By: #### 5 7021-8 ####ANASTACIO Hodge ([id number])[facility] ([facility])[address] [place] [address] Neutrophils/100 WBC (Bld) 69.9 % Normal 40.0-80.0 [facility] [place] [facility] Comment on above: Performed By: #### 5 7021-8 ####ANASTACIO Hodge ([id number])[facility] ([facility])[address] [place] [address] Nucleated RBC/100 WBC (Bld) [Ratio] 0.0 /100 WBCs Normal 0.0-0.0 [facility] [place] [facility] Comment on above: Performed By: #### 5 7021-8 ####ANASTACIO Hodge ([id number])[facility] ([facility])[address] [place] [address] Platelets (Bld) [#/Vol] 307 x10*3/uL Normal 150-450 [facility] [place] [facility] Comment on above: Performed By: #### 5 7021-8 ####ANASTACIO Hodge ([id number])[facility] ([facility])[address] [place] [address] RBC (Bld) [#/Vol] 4.27 x10*6/uL Low 4.50-5.90 [facility] Comment on above: Performed By: #### 5 7021-8 ####ANASTACIO Hodge ([id number])[facility] ([facility])[address] [place] [address] WBC (Bld) [#/Vol] 11.9 x10*3/uL High 4.4-11.3 [facility] Comment on above: Performed By: #### 5 7021-8 ####ANASTACIO Hodge ([id number])[facility] ([facility])[address] [place] [address] Magnesiumon 12-13-2023 Magnesium [Mass/Vol] 2.12 mg/dL 1.60 - 2.40 mg/dL [facility] Magnesium [Mass/Vol] 2.12 mg/dL Normal 1.60-2.40 [facility] Comment on above: Performed By: #### 1 9123-9 ####ANASTACIO Hodge ([id number])[facility] ([facility])[address] [place] [address] Magnesium [Mass/Vol]on 12-12 Interpretation and review of laboratory results Normal [facility] No Panel Informationon 12-12 [facility] Basic metabolic 2000 panelon 12-12-2023 Anion gap [Moles/Vol] 14 mmol/L 10 - 2 0 mmol/L [facility] Calcium [Mass/Vol] 7.8 mg/dL Low 8.6 - 10. 6 mg/dL [facility] Chloride [Moles/Vol] 103 mmol/L 98 - 10 7 mmol/L [facility] CO2 [Moles/Vol] 25 mmol/L 21 - 32 mmol/L [facility] Creatinine [Mass/Vol] 0.87 mg/dL 0.50 - 1.30 mg/dL [facility] eGFR - PINF [facility] Comment on above: Calculations of cris mated GFR are performed using the 2020 CKD-EPI Study Refit equation without the race variable for the IDMS-Traceable creatinine methods. https://jasn.asnjournals.org/content//ASN.56953 08572 Glucose [Mass/Vol] 89 mg/dL 74 - 99 mg/dL [facility] Interpretation and review of laboratory results Abnormal [facility] Potassium [Moles/Vol] 3.4 mmol/L Low 3.5 - 5.3 mmol/L [facility] Sodium [Moles/Vol] 139 mmol/L 136 - 145 mmol/L [facility] Urea nitrogen [Mass/Vol] 14 mg/dL 6 - 23 mg/dL [facility] Anion gap [Moles/Vol] 14 mmol/L Normal 10-20 [facility] Comment on above: Performed By: #### 2 4321-2 ####ANASTACIO Hodge ([id number])[facility] ([facility])[address] [place] [address] Calcium [Mass/Vol] 7.8 mg/dL Low 8.6-10.[address] [facility] Comment on above: Performed By: #### 2 4321-2 ####ANASTACIO Hodge ([id number])[facility] ([facility])[address] [place] [address] Chloride [Moles/Vol] 103 mmol/L Normal 98-107 [facility] Comment on above: Performed By: #### 2 4321-2 ####ANASTACIO WOOD L ([id number])[facility] ([facility])[address] [place] [address] CO2 [Moles/Vol] 25 mmol/L Normal 21-32 [facility] Comment on above: Performed By: #### 2 4321-2 ####ANASTACIO Hodge ([id number])[facility] ([facility])[address] [place] [address] Creatinine [Mass/Vol] 0.87 mg/dL Normal 0.50-1.30 [facility] Comment on above: Performed By: #### 2 4321-2 ####ANASTACIO Hodge ([id number])[facility] ([facility])[address] [place] [address] GFR/1.73 sq M.predicted MDRD (S/P/Bld) [Vol rate/Area] mL/min/{1.73_m2} Normal >60 [facility] [place] [facility] Comment on above: Result Comment: Calc ulations of estimated GFR are performed using the 2020 CKD-EPI Study Refit equation without the race variable for the IDMS-Traceable creatinine methods. https://jasn.asnjournals.org/content/early//ASN.10662 86956 Performed By: #### 2 4321-2 ####ANASTACIO Hodge ([id number])[facility] ([facility])[address] [place] [address] Glucose [Mass/Vol] 89 mg/dL Normal 74-[address] [facility] Comment on above: Performed By: #### 2 4321-2 ####ANASTACIO Hodge ([id number])[facility] ([facility])[address] [place] [address] Potassium [Moles/Vol] 3.4 mmol/L Low 3.5-5.3 [facility] Comment on above: Performed By: #### 2 4321-2 ####ANASTACIO WOOD L ([id number])[facility] ([facility])[address] [place] [address] Sodium [Moles/Vol] 139 mmol/L Normal 136-[address] [facility] Comment on above: Performed By: #### 2 4321-2 ####ANASTACIO WOOD L ([id number])[facility] ([facility])[address] [place] [address] Urea nitrogen [Mass/Vol] 14 mg/dL Normal 6-23 [facility] [place] [facility] Comment on above: Performed By: #### 2 4321-2 ####ANASTACIO Hodge ([id number])[facility] ([facility])[address] [place] [address] CBC W Auto Differential pane l (Bld)on 12-12-2023 Basophils (Bld) [#/Vol] 0.07 10*3/uL [facility] Basophils/100 WBC (Bld) 0.5 % 0.0 - 2.0 % [facility] Eosinophils (Bld) [#/Vol] 0.26 10*3/uL [facility] Eosinophils/100 WBC (Bld) 2.0 % 0.0 - 6.0 % [facility] Erythrocyte distribution width (RBC) [Ratio] 12.8 % 11.5 - 14.5 % [facility] Hematocrit (Bld) [Volume fraction] 34.8 % Low 41.0 - 52.0 % [facility] Hemoglobin (Bld) [Mass/Vol] 11.8 g/dL Low 13.5 - 17.5 g/dL [facility] Immature granulocytes (Bld) [#/Vol] 0.10 10*3/uL [facility] Immature granulocytes/100 WBC (Bld) 0.8 % 0.0 - 0.9 % [facility] Comment on above: Immature Granulocyte Count (IG) includes promyelocytes, myelocytes and metamyelocytes but does not include bands. Percent differential counts (%) should be interpreted in the context of the absolute cell counts (cells/UL). Interpretation and review of laboratory results Abnormal [facility] Lymphocytes (Bld) [#/Vol] 1.93 10*3/uL [facility] Lymphocytes/100 WBC (Bld) 14.7 % 13.0 - 44.0 % [facility] MCH (RBC) [Entitic mass] 27.8 pg 26.0 - 34.0 pg [facility] MCHC (RBC) [Mass/Vol] 33.9 g/dL 32.0 - 36.0 g/dL [facility] MCV (RBC) [Entitic vol] 82 fL 80 - 100 fL [facility] Monocytes (Bld) [#/Vol] 1.09 10*3/uL High [facility] Monocytes/100 WBC (Bld) 8.3 % 2.0 - 10.0 % [facility] Neutrophils (Bld) [#/Vol] 9.66 10*3/uL High [facility] Comment on above: Percent differential counts (%) should be interpreted in the context of the absolute cell counts (cells/uL). Neutrophils/100 WBC (Bld) 73.7 % 40.0 - 80.0 % [facility] Nucleated RBC/100 WBC (Bld) [Ratio] 0.0 % [facility] Platelets (Bld) [#/Vol] 296 10*3/uL [facility] RBC (Bld) [#/Vol] 4.25 10*6/uL Low [facility] WBC (Bld) [#/Vol] 13.1 10*3/uL High [facility] Basophils (Bld) [#/Vol] 0.07 x10*3/uL Normal 0.00-0.10 [facility] [place] [facility] Comment on above: Performed By: #### 5 7021-8 #### ANASTACIO Hodge ([id number]) [facility] ([facility]) [address] [place] [address] Basophils/100 WBC (Bld) 0.5 % Normal 0.0-2.0 [facility] [place] [facility] Comment on above: Performed By: #### 5 7021-8 #### ANASTACIO Hodge ([id number]) [facility] ([facility]) [address] [place] [address] Eosinophils (Bld) [#/Vol] 0.26 x10*3/uL Normal 0.00-0.70 [facility] [place] [facility] Comment on above: Performed By: #### 5 7021-8 #### ANASTACIO Hodge ([id number]) [facility] ([facility]) [address] [place] [address] Eosinophils/100 WBC (Bld) 2.0 % Normal 0.0-6.0 [facility] [place] [facility] Comment on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
--- OUTSIDE RECORDS SUMMARY | 2025-02-19 06:50 | XMS_ITS | Clinical Summary ---
Author Organization [facility] Address [address] [place] [address] Phone Care Team Providers Care Dry Kiln Burner Name Role Phone Jaymie Haas MD Primary Care Provider [phone] Allergies Active Allergy Reactions Criticality Noted Date Comments Nalbuphine Hives 04/09/2017 Tramadol Nausea And Vomiting,Unknown Low 05/17/20 16 Medications magnesium oxide 500 mg magnesium tablet Take 1 tablet (500 mg) by mouth once daily. 11/29/2022 Active diclofenac (Voltaren) 50 mg EC tablet Take 1 tablet (50 mg) by mouth 2 times a day. Active gabapentin (Neurontin) 300 mg capsule Take 1 capsule (300 mg) by mouth once daily at bedtime. 10/27/2023 Active lisinopril 20 mg tablet Take 1 tablet (20 mg) by mouth once daily. Active metoprolol succinate XL (Toprol-XL) 25 mg 24 hr tablet Take 1 tablet (25 mg) by mouth once daily. 11/15/2023 Active simvastatin (Zocor) 20 mg tablet Take 1 tablet (20 mg) by mouth once daily. Active traZODone (Desyrel) 50 mg tablet Take 1 tablet (50 mg) by mouth once daily at bedtime. Active tiZANidine (Zanaflex) 4 mg tablet Take 1 tablet (4 mg) by mouth 3 times a day. Active cetirizine (ZyrTEC) 10 mg tablet Take 1 tablet (10 mg) by mouth every 12 hours. Active glucosamine/cho ndr langford A sod (OSTEO BI-FLEX ORAL) Take 1 tablet by mouth 2 times a day. Active multivitamin tablet Take 1 tablet by mouth once daily. Active cholecalciferol (Vitamin D-3) 5,000 Units tablet Take 1 tablet (5,000 Units) by mouth once daily. Active cyclobenzaprine (Flexeril) 10 mg tabletIndicatio ns:Pelvic pain Take 1 tablet (10 mg) by mouth 3 times a day as needed for muscle spasms for up to 7 days. 21 tablet 12/14/2023 Active ondansetron (Zofran) 4 mg tabletIndicatio ns:Pelvic pain Take 2 tablets (8 mg) by mouth every 8 hours if needed for nausea or vomiting for up to 15 doses. 15 tablet 12/14/2023 Active acetaminophen (TylenoL) 325 mg tabletIndicatio ns:Pelvic pain Take 2 tablets (650 mg) by mouth every 6 hours if needed for mild pain (1 - 3) for up to 30 doses. 30 tablet 12/14/2023 Active Active Problems Problem Noted Date Diagnosed Date HTN (hypertension) 12/08/2023 Hyperlipidemia 12/08/2023 Asthma 12/08/2023 Obesity 12/08/2023 Bilateral hip pain 11/30/2023 Lumbar pain 11/30/2023 Scrotum pain 11/30/2023 Pelvic pain 11/30/2023 Lumbar radiculopathy 02/19/2021 Lumbar spondylosis 02/19/2021 Sciatica, left side 11/20/2020 Contact with and (suspected) exposure to covid-1 9 08/26/2020 Encounters Date Type Department Care Team Description 11/21/2024 1:30 PM EDT Office Visit [facility] [address] [phone] Adam Navarro MD Closed fracture dislocation of pelvis with routine healing (Primary Dx) 11/21/2024 1:00 PM EDT - 11/21/2024 11:59 PM EDT Hospital Encounter [facility] [address] [address] Pelvic pain Discharge Disposition: Home 11/21/2024 Travel from Last 3 Months Immunizations Immunization Administration Dates Next Due Td vaccine, age 7 years and older (TENIVAC) 08/08 Tdap vaccine, age 7 year and older (BOOSTRIX, AD ACEL) 09/16/2023 Family History Medical History Relation Name Comments Cancer Paternal Grandfather Ziggy Milian Diabetes Paternal Grandmother Kassy Didjennifer Relation Name Status Comments Paternal Grandfather Edeloy Didion Paternal Grandmother Kassy Didion Social History Tobacco Use Types Packs/Day Years Used Date Smoking Tobacco: Never Smokeless Tobacco: Never Tobacco Cessation:Counseling Given: Not Answered Alcohol Use Standard Drinks/Week Comments Not Currently 0 (1 standard drink = 0.6 oz pur e alcohol) [facility] Utilities Answer Date Recorded In the past 12 months has e [employer], gas, oil, or water company threatened to shut off services in your home? No 12/11/2023 AUDIT-C Answer Date Recorded Q1: How often do you have a drink containing alcohol? Never 12/08/2023 Q2: How many drinks containi ng alcohol do you have on a typical day when you are drinking? Patient does not drink Q3: How often do you have si x or more drinks on one occasion? Never 12/08/2023 Overall Financial Resource Strain (CARDIA) Answe r Date Recorded How hard is it for you to pa y for the very basics like food, housing, medical care, and heating? Not hard at all 12/08/2023 PHQ-2 Answer Date Recorded Patient Health Questionnaire-2 Score 0 02/29/2024 [facility] - Occupational Stress Questionnaire Answer Date Recorded Do you feel stress - tense, restless, nervous, or anxious, or unable to sleep at night because your mind is troubled all the time - these days? Not at all 12/08/2023 Exercise Vital Sign Answer Date Recorde d On average, how many days pe r week do you engage in moderate to strenuous exercise (like a brisk walk)? 3 days 12/08/2023 On average, how many minutes do you engage in exercise at this level? 30 min 12/08/2023 Hunger Vital Sign Answer Date Recorded Within the past 12 months, y ou worried that your food would run out before you got the money to buy more. Never true 12/08/19 Within the past 12 months, t he food you bought just didn't last and you didn't have money to get more. Never true 12/08/2023 PRAPARE - Transportation Answer Date Re corded In the past 12 months, has l ack of transportation kept you from medical appointments or from getting medications? No 09/2023 In the past 12 months, has l ack of transportation kept you from meetings, work, or from getting things needed for daily living? No 12/08/2023 Housing Stability Vital Sign Answer Gomez e Recorded In the last 12 months, was t here a time when you were not able to pay the mortgage or rent on time? No 12/11/2023 In the last 12 months, how many places have you lived? 1 12/11/2023 In the last 12 months, was t here a time when you did not have a steady place to sleep or slept in a assisted (including now)? No 12/11/2023 Sex and Gender Information Value Date Recorded Sex Assigned at Male 11/30/2023 9:24 PM EDT Legal Sex Male 11:58 AM EDT Gender Identity Male 11/30/2023 9:24 PM EDT Sexual Orientation Straight 11/30/2023 9: 24 PM EDT Last Filed Vital Signs Vital Sign Reading Time Taken Comments Blood Pressure 119/80 12/21/2023 8:13 AM EDT Pulse 85 12/21/2023 8:13 AM EDT Temperature 36.4 C (97.5 F) 12/21/2023 8:13 AM EDT Respiratory Rate 16 12/21/2023 8:13 AM EDT Oxygen Saturation 97% 12/21/2023 8:13 AM EDT Inhaled Oxygen Concentration - - Weight 126 kg (277 lb 12.5 oz) 12/11/2023 8:33 A M EDT Height 180.3 cm (5' 10.98 ) 12/11/2023 8:33 AM E DT Body Mass Index 38.76 12/11/2023 8:33 AM EDT Plan of Treatment Health Maintenance Due Date Last Done Comments CT Colonography 1975 Colonoscopy 1975 Colorectal Cancer Screening 1975 FIT-DNA (Cologuard) 1975 FIT 1975 HIV Screening 1975 Lipid Panel 1975 Sigmoidoscopy 1975 Yearly Adult Physical 1975 MMR Vaccines (1 of 1 - Standard series) 1976 Hepatitis C Screening 1993 Hepatitis B Vaccines (1 of 3 - 19+ 3-dose series) 1994 Pneumococcal Vaccine: Pediatrics and At-Risk Adult Patients (1 of 2 - PCV) 1994 COVID-19 Vaccine ( - season) 2024 03/23/2022, 10/17/2021, 09/19/2021 Influenza Vaccine (#1) 2025 05/23/2019 Zoster Vaccines (1 of 2) 2025 Diabetes Screening 12/13/2026 12/14/2023, 0 12/13/2023, 12/12/2023, Additional history exists DTaP/Tdap/Td Vaccines (2 - Td or Tdap) 09/16/2033 09/16/2023, 08/25/2015, 08/25/2015 HIB Vaccines Aged Out No longer eligi ble based on patient's age to complete this topic HPV Vaccines (No Doses Required) Completed Hepatitis A Vaccines Aged Out No long er eligible based on patient's age to complete this topic IPV Vaccines Aged Out No longer eligi ble based on patient's age to complete this topic Meningococcal Vaccine Aged Out No ketan alyssia eligible based on patient's age to complete this topic Rotavirus Vaccines Aged Out No longer eligible based on patient's age to complete this topic Medical Devices Implanted Type Area Software Configuration Manager Device Identifier Shelf Expiration Date Model / Serial / Lot Allograft, Gabriel 5.5cc - [id number] - [id number] Implanted:Q ty: 1 on 12/08/2023 by Adam Navarro MD at [facility] Graft N/A: [employer] 03/14/2024 MG-5 / [id number] / Power Mix, Mini Ingite, 4cc - [id number] - [id number] Implanted:Q ty: 1 on 12/08/2023 by Adam Navarro MD at [facility] Implant N/A: [employer] [id number] 07/12/2026 [id number] / [id number] Bme Elite Implant Kit [id number] 2 Legs Implanted:Q ty: 1 on 12/08/2023 by Adam Navarro MD at [facility] Orthopedic Implant N/A: Pelvis SYNTHES 11/06/2026 [id number] 2 / NA / [id number] Description:Per nicola morgan 5 /3 Screw, Cortical, Self-Tappin g, 3.5 X 32 Mm, Stainless Steel - [id number] Implanted:Q ty: 1 on 12/08/2023 by Adam Navarro MD at [facility] Screw N/A: [employer]ulum SY[employer]ES 204.832 / / Screw, 7.3mm Geoff, Full Thread, 165mm, Sterile - [id number] Implanted:Q ty: 1 on 12/08/2023 by Adam Navarro MD at [facility] Screw N/A: Pelvis SYNTHES 09/07/2031 209.765S / / [id number] Screw, 7.3mm Geoff, Full Thread, 145mm, Sterile - [id number] Implanted:Q ty: 1 on 12/08/2023 by Adam Navarro MD at [facility] Screw N/A: Pelvis SYN[employer]ES 09/07/2031 209.745S / / [id number] Screw, Cortical, Self-Tappin g, 3.5 X 36 Mm, Stainless Steel - [id number] Implanted:Q ty: 1 on 12/08/2023 by Adam Navarro MD at [facility] Screw N/A: Ac[employer]ulum [employer] 204.836 / / Plate, 3.5 X 6h Pubic Symphysis - Sna - [id number] Implanted:Q ty: 1 on 12/08/2023 by Adam Navarro MD at [facility] Screw N/A: Pelvis SYNTHES 12/08/2023 02.100.0 06 / NA / Screw, Cortical, Self-Tappin g, 3.5 X 30 Mm, Stainless Steel - Sna - [id number] Implanted:Q ty: 1 on 12/08/2023 by Adam Navarro MD at [facility] Screw N/A: Pelvis SYNTHES 12/08/2023 204.830 / NA / Screw, Cortical, Self-Tappin g, 3.5 X 24 Mm, Stainless Steel - Sna - [id number] Implanted:Q ty: 1 on 12/08/2023 by Adam Navarro MD at [facility] Screw N/A: Pelvis SYNTHES 12/08/2023 204.824 / NA / Screw Cortex 3.5 X 70 - Sna - [id number] Implanted:Q ty: 2 on 12/08/2023 by Adam Navarro MD at [facility] Screw N/A: Pelvis SYNTHES 12/08/2023 204.870 / NA / Screw, Cortical, Self-Tappin g, 3.5 X 34 Mm, Stainless Steel - Sna - [id number] Implanted:Q ty: 1 on 12/08/2023 by Adam Navarro MD at [facility] Screw N/A: Pelvis SYNTHES 12/08/2023 204.834 / NA / Screw, Cortical, Self-Tappin g, 3.5 X 75 Mm, Stainless Steel - Sna - [id number] Implanted:Q ty: 2 on 12/08/2023 by Adam Navarro MD at [facility] Screw N/A: Pelvis SYNTHES 12/08/2023 204.875 / NA / Washer, F/Large Screws, 13 Mm, Stainless Steel - [id number] Implanted:Q ty: 2 on 12/08/2023 by Adam Navarro MD at [facility] Screw N/A: Acetabulum SY[employer]ES 219.99 / / Procedures Procedure Name Priority Date/Time Associated Diagnosis Comments HC X-RAY PELVIS 3+ VW - XR PELVIS 3+ VIEWS Routine 11/21/2024 1:34 PM EDT Pelvic pain BASIC METABOLIC PANEL Routine 12/14/2023 6:41 AM EDT from Last 3 Months or Most Recently Relevant to Health Maintenance Results * XR pelvis 3+ views (11/21/2024 1:34 PM EDT) Anatomical Region Laterality Modality Musculoskeletal Computed Radiogr aphy 11/22/2024 1:24 PM EDT 11/22/2024 1:24 PM EDT Impressions 11/22/2024 1:23 PM EDT As above. MACRO: None. Signed by: Sushma Black 11/22/2024 1:23 PM Dictation workstation: [id number] Narrative 11/22/2024 1:23 PM EDT Interpreted By: Sushma Blakc, STUDY: Pelvis, 5 views. INDICATION: Signs/Symptoms:pelvis fracture. COMPARISON: 05/23/2024. ACCESSION NUMBER(S): [id number] ORDERING CLINICIAN: ADAM NAVARRO FINDINGS: No acute [...] spaces. Soft tissues are within normal limits. Procedure Note Sushma Black MD - 11/22/2024 Interpreted By: Sushma Black, STUDY: Pelvis, 5 views. INDICATION: Signs/Symptoms:pelvis fracture. COMPARISON: 05/23/2024. ACCESSION NUMBER(S): [id number] ORDERING CLINICIAN: ADAM NAVARRO FINDINGS: No acute [...] Sushma Black 11/22/2024 1:23 PM Dictation workstation: [id number] Adam Navarro MD IMG XR PROCEDURES Final Resul t * (ABNORMAL) Basic metabolic panel (12/14/2023 6:41 AM EDT) [facility] Glucose 103(H) 74 - 99 mg/dL LAB CHEMISTRY METHOD 12/14/2023 7:45 AM EDT [facility] Sodium 138 136 - 145 mmol/L LAB CHEMISTRY METHOD 12/14/2023 7:45 AM EDT [facility] Potassium 3.6 3.5 - 5.3 mmol/L LAB CHEMISTRY METHOD 12/14/2023 7:45 AM EDT [facility] Chloride 103 98 - 107 mmol/L LAB CHEMISTRY METHOD 12/14/2023 7:45 AM EDT [facility] Bicarbonate 27 21 - 32 mmol/L LAB CHEMISTRY METHOD 12/14/2023 7:45 AM EDT [facility] Anion Gap 12 10 - 20 mmol/L LAB CHEMISTRY METHOD 12/14/2023 7:45 AM EDT [facility] Urea Nitrogen 14 6 - 23 mg/dL LAB CHEMISTRY METHOD 12/14/2023 7:45 AM EDT [facility] Creatinine 0.82 0.50 - 1.30 mg/dL LAB CHEMISTRY METHOD 12/14/2023 7:45 AM EDT [facility] eGFR >90 >60 mL/min/1. 73m*2 LAB CHEMISTRY METHOD 12/14/2023 7:45 AM EDT [facility] Comment: Calculations of estimated GFR are performed using the 2020 CKD-EPI Study Refit equation without the race variable for the IDMS-Traceable creatinine methods. https://jasn.asnjournals.org/content///ASN.5019488912 Calcium 8.3(L) 8.6 - 10.6 mg/dL LAB CHEMISTRY METHOD 12/14/2023 7:45 AM EDT [facility] Blood Venous blood specimen / Unknown Venipuncture / Unknown 12/14/2023 6:41 AM EDT 12/14/2023 7:12 AM EDT us Adam Navarro MD LAB BLOOD ORDERABLES Final Re sult [facility] [address] [facility] [id number] [place], [place] [id number] from Last 3 Months or Most Recently Relevant to Health Maintenance Insurance Advance Directives For more information, please contact: [phone] (Available ) * Full Code (Latest Code Status on File) Date Activated Date Inactivated Comments 12/08/2023 8:25 AM Question Answer Comments Plan of Care: Code Status Discussion Completed Decision Maker: Patient Care Teams Dry Kiln Burner Relationship Specialty Start Date End Date Jaymie Haas MD [address] [place] [address] PCP - General Family Medicine 12/05/23
--- OUTSIDE RECORDS SUMMARY | 2025-02-19 06:50 | XMS_ITS | Encounter Summary ---
Author Organization [facility] Address [address] [place] [address] Care Team Providers Care Skin Care Instructor Name Role Phone Jaymie Haas MD Primary Care Provider [phone] Rolo Thornton DO Unavailable [phone] Encounter Details Date Type Department Care Team (Latest Contact Info) Description 02/14/2025 Travel Social History Tobacco Use Types Packs/Day Years [...] on filedocumented in this encounter Care Teams Skin Care Instructor Relationship Specialty Start Date End Date Jaymie Haas MD [address] [place] [id number] PCP - General Family Medicine 11/13/24 Rolo Thornton DO [address] [place] [address] Otolaryngology 11/13/24 documented as of this encounter
== END 2025-02-14 12:46 | disposition home or self-care (01) ==
LOC: PM 02-19 06:47
PROVIDERS: PCP Family Medicine; Visit Provider Nurse Practitioner
DX: M25.511 Pain in right shoulder (principal); M47.816 Spondylosis without myelopathy or radiculopathy, lumbar region; M51.369 Other intervertebral disc degeneration, lumbar region without mention of lumbar back pain or lower extremity pain; Z79.891 Long term (current) use of opiate analgesic; M62.838 Other muscle spasm; M46.1 Sacroiliitis, not elsewhere classified; G89.4 Chronic pain syndrome
CPT/HCPCS: G0463

== ENCOUNTER 2025-05-09 08:50 | Outpatient (OUT) | payer BC, SELFPAY ==
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
--- OUTSIDE RECORDS SUMMARY | 2025-05-09 08:52 | XMS_ITS | Patient Health Record ---
Author Organization [facility] Address [address] [place] [address] Care Team Providers Care Endoscopy Support Specialist Name Role Phone Seng Paez [phone] Allergies Allergen (clinical drug ingredient) Drug/Non Drug [...] Start Date Coverage End Date [address] [place] [address] [id number] AV DAVID YATESNIS Self - patient is [...]
--- OUTSIDE RECORDS SUMMARY | 2025-05-09 08:52 | XMS_ITS | Clinical Summary ---
Author Organization [facility] Address [address] [place] [address] Care Team Providers Care Black Oxide Coating Equipment Tender Name Role Phone Jaymie Haas MD Primary Care Provider [phone] Allergies Active Allergy Reactions Criticality Noted Date [...] of 2 - PCV) 1994 COVID-19 Vaccine (4 - 2024-2 6 season) 2025 03/23/2022, 10/17/2021, 09/19/2021 Influenza Vaccine (#1) 2025 [...] patient's age to complete this topic Insurance [facility] Care Teams Black Oxide Coating Equipment Tender Relationship Specialty Start Date End Date Jaymie Haas MD [address] [place] [address] PCP - General 06/22/24
--- OUTSIDE RECORDS SUMMARY | 2025-05-09 08:52 | XMS_ITS | Clinical Summary ---
Author Organization [facility] Address [address] [place] [address] Care Team Providers Care Casing Mixer Name Role Phone Unavailable Primary Care Provider Unavailabl e Social History Tobacco Use Types Packs/Day Years Used Date Smoking Tobacco: Never Assessed Sex and Gender Information Value Date Recorded Sex Assigned at Not on file Legal Sex Male 8:26 AM EST Gender Identity Not on file Sexual Orientation Not on file Plan of Treatment Health Maintenance Due Date Last Done Comments Anxiety Screening 1993 Depression Screening 1993 HIV Screening 1993 Hepatitis C Screening 1993 DTaP,Tdap,Td Vaccine (1 - Tdap) 1994 Hepatitis B Vaccine (1 of 3 - 19+ 3-dose series) 08/[address] Colonography 2020 Cologuard (FIT-DNA) 2020 Colonoscopy 2020 Colorectal Cancer Screening 2020 Diabetes Screening 2020 Fecal Occult Blood 2020 Sigmoidoscopy 2020 Influenza Vaccine (#1) 2025 Insurance MMO [employer]
--- OUTSIDE RECORDS SUMMARY | 2025-05-09 08:52 | XMS_ITS | Encounter Summary ---
Author Organization [facility] Address [address], [address] [place] [address] Care Team Providers Care Pensions Retirement Plan Specialist Name Role Phone Jaymie Haas MD Primary Care Provider [phone] Encounter Details Date Type Department Care Team (Late st Contact Info) Description 02/26/2021 Post-op Telephone [facility] Special Procedure [address] [place], [place] [id number] Audra Worley, RN Social History Tobacco Use [...] on filedocumented in this encounter Care Teams Pensions Retirement Plan Specialist Relationship Specialty [place] [address] [place] [phone] PCP - General Family Medicine 01/30/21 documented as of this encounter
--- OUTSIDE RECORDS SUMMARY | 2025-05-09 08:52 | XMS_ITS | Clinical Summary ---
Author Organization [facility] Address [address] [place] [address] Phone Care Team Providers Care Program Manager Transportation Name Role Phone Jaymie Haas MD Primary Care Provider [phone] Allergies Active Allergy Reactions Criticality Noted Date [...] Date HTN (hypertension) 12/08/2023 Hyperlipidemia 12/08/2023 Asthma (HHS-HCC) 12/08/2023 Obesity 12/08/2023 Bilateral hip pain 11/30/2023 Lumbar pain 11/30/2023 Scrotum pain 11/30/2023 Pelvic pain 11/30/2023 Lumbar radiculopathy 02/19/2021 Lumbar spondylosis 02/19/2021 Sciatica, left side 11/20/2020 Contact with and (suspected) exposure to covid-1 9 08/26/2020 Immunizations Immunization Administration Dates Next Due Td vaccine, age 7 years and older (TENIVAC) 08/08 Tdap vaccine, age 7 year and older (BOOSTRIX, AD ACEL) 09/16/2023 Family History Medical History Relation Name Comments Cancer Paternal Grandfather Edeloy Milian Diabetes Paternal Grandmother Kassy Didion Relation Name Status Comments Paternal Grandfather Edeloy Hamion Paternal Grandmother Kassy Didion Social History Tobacco Use Types Packs/Day Years Used Date Smoking Tobacco: Never Smokeless Tobacco: Never Tobacco Cessation:Counseling Given: Not Answered Alcohol Use Standard Drinks/Week Comments Not Currently 0 (1 standard drink = 0.6 oz pur e alcohol) [facility] Utilities Answer Date Recorded In the past 12 months has th e electric, gas, oil, or water company threatened to [...] Recorded Patient Health Questionnaire-2 Score 0 02/29/2024 [facility] - Occupational Stress Questionnaire Answer Date [...] money to buy more. Never true 12/08/19 24 Within the past 12 months, t he [...] place to sleep or slept in a [facility] (including now)? No 12/11/2023 Sex and Gender [...] 2 - PCV) 1994 COVID-19 Vaccine ( season) 2025 03/23/2022, 10/17/2021, 09/19/2021 Influenza Vaccine [...] on patient's age to complete this topic Hepatitis A Vaccines Aged Out No long [...] this topic Medical Devices Implanted Type Area Lamination Operator Device Identifier Shelf Expiration Date Model / Serial / Lot Allograft, Gabriel 5.5cc - [id number] - [id number] Implanted:Q ty: 1 on 12/08/2023 by Adam Santoyo MD at [facility] Graft N/A: Acetabulum [employer] 03/14/2024 MG-5 / [id number] / Power Mix, Mini Ingite, c - [id number] - [id number] Implanted:Q ty: 1 on 12/08/2023 by Adam Santoyo MD at [facility] Implant N/A: Acetabulum DisplayLink [id number] 07/12/2026 [id number] / [id number] Bme Elite Implant Kit [id number] 2 Legs Implanted:Q ty: 1 on 12/08/2023 by Adam Santoyo MD at [facility] Orthopedic Implant N/A: Pelvis SYNTHES 11/06/2026 [id number] 2 / NA / [id number] Description:Per oracle jdr 5 /3 Screw, Cortical, Self-Tappin g, 3.5 X 32 Mm, Stainless Steel - [id number] Implanted:Q ty: 1 on 12/08/2023 by Adam Santoyo MD at [facility] Screw N/A: Acetabulum SYNTHES 204.832 / / Screw, 7.3mm Geoff, Full Thread, 165mm, Sterile - [id number] Implanted:Q ty: 1 on 12/08/2023 by Adam Santoyo MD at [facility] Screw N/A: Pelvis SYNTHES 09/07/2031 209.765S / / [id number] Screw, 7.3mm Geoff, Full Thread, 145mm, Sterile - [id number] Implanted:Q ty: 1 on 12/08/2023 by Adam Santoyo MD at [facility] Screw N/A: Pelvis SYNTHES 09/07/2031 209.745S / / [id number] Screw, Cortical, Self-Tappin g, 3.5 X 36 Mm, Stainless Steel - [id number] Implanted:Q ty: 1 on 12/08/2023 by Adam Santoyo MD at [facility] Screw N/A: Acetabulum SYNTHES 204.836 / / Plate, 3.5 X 6h Pubic Symphysis - Sna - [id number] Implanted:Q ty: 1 on 12/08/2023 by Adam Sanotyo MD at [facility] Screw N/A: Pelvis SYNTHES 12/08/2023 02.100.0 06 / NA / Screw, Cortical, Self-Tappin g, 3.5 X 30 Mm, Stainless Steel - Sna - [id number] Implanted:Q ty: 1 on 12/08/2023 by Adam Santoyo MD at [facility] Screw N/A: Pelvis SYNTHES 12/08/2023 204.830 / NA / Screw, Cortical, Self-Tappin g, 3.5 X 24 Mm, Stainless Steel - Sna - [id number] Implanted:Q ty: 1 on 12/08/2023 by Adam Santoyo MD at [facility] Screw N/A: Pelvis SYNTHES 12/08/2023 204.824 / NA / Screw Cortex 3.5 X 70 - Sna - [id number] Implanted:Q ty: 2 on 12/08/2023 by Adam Santoyo MD at [facility] Screw N/A: Pelvis SYNTHES 12/08/2023 204.870 / NA / Screw, Cortical, Self-Tappin g, 3.5 X 34 Mm, Stainless Steel - Sna - [id number] Implanted:Q ty: 1 on 12/08/2023 by Adam Santoyo MD at [facility] Screw N/A: Pelvis SYNTHES 12/08/2023 204.834 / NA / Screw, Cortical, Self-Tappin g, 3.5 X 75 Mm, Stainless Steel - Sna - [id number] Implanted:Q ty: 2 on 12/08/2023 by Adam Santoyo MD at [facility] Screw N/A: Pelvis SYNTHES 12/08/2023 204.875 / NA / Washer, F/Large Screws, 13 Mm, Stainless Steel - [id number] Implanted:Q ty: 2 on 12/08/2023 by Adam Santoyo MD at [facility] Screw N/A: Acetabulum SYNTHES 219.99 / / Procedures Procedure Name Priority Date/Time Associated Diagnosis Comments BASIC METABOLIC PANEL Routine 12/14/2023 6:41 AM EDT from Last 3 Months or Most Recently Relevant to Health Maintenance Results * (ABNORMAL) Basic metabolic panel (12/14/2023 6:41 AM EDT) [facility] Glucose 103(H) 74 - 99 mg/dL LAB CHEMISTRY METHOD 12/14/2023 7:45 AM EDT [facility] Sodium 138 136 - 145 mmol/L LAB CHEMISTRY METHOD 12/14/2023 7:45 AM EDT [facility] Potassium 3.6 3.5 - 5.3 mmol/L LAB CHEMISTRY METHOD 12/14/2023 7:45 AM EDT [facility] Chloride 103 98 - 107 mmol/L LAB CHEMISTRY METHOD 12/14/2023 7:45 AM EDT [facility] Bicarbonate 27 21 - 32 mmol/L LAB CHEMISTRY METHOD 12/14/2023 7:45 AM EDT [facility] Anion Gap 12 10 - 20 mmol/L LAB CHEMISTRY METHOD 12/14/2023 7:45 AM EDT [facility] Urea Nitrogen 14 6 - 23 mg/dL LAB CHEMISTRY METHOD 12/14/2023 7:45 AM EDT [facility] Creatinine 0.82 0.50 - 1.30 mg/dL LAB CHEMISTRY METHOD 12/14/2023 7:45 AM EDT [facility] eGFR >90 >60 mL/min/1. 73m*2 LAB CHEMISTRY METHOD 12/14/2023 7:45 AM EDT [facility] Comment: Calculations of estimated GFR are performed using the 2020 CKD-EPI Study Refit equation without the race variable for the IDMS-Traceable creatinine methods. https://jasn.asnjournals.org/content/early//ASN.8555518315 Calcium 8.3(L) 8.6 - 10.6 mg/dL LAB CHEMISTRY METHOD 12/14/2023 7:45 AM EDT [facility] Blood Venous blood specimen / Unknown Venipuncture / Unknown 12/14/2023 6:41 AM EDT 12/14/2023 7:12 AM EDT us Adam Santoyo MD LAB BLOOD ORDERABLES Final Re sult [facility] [address] [place], [place] [id number] from Last 3 Months or Most Recently Relevant to Health Maintenance Insurance [facility] Advance Directives For more information, please contact: [phone] (Available ) * Full Code (Latest Code Status on File) Date Activated Date Inactivated Comments 12/08/2023 8:25 AM Question Answer Comments Plan of Care: Code Status Discussion Completed Decision Maker: Patient Care Teams Program Manager Transportation Relationship Specialty Start Date End Date Jaymie aHas MD [address] [facility] [place] [address] PCP - General Family Medicine 12/05/23
--- OUTSIDE RECORDS SUMMARY | 2025-05-09 08:52 | XMS_ITS | Clinical Summary ---
Author Organization [facility] Address [address], [address] [place] [address] Care Team Providers Care Crawler Dragline Operator Name Role Phone Jaymie Haas MD Primary Care Provider [phone] Allergies Active Allergy Reactions Criticality Noted Date [...] of Treatment Not on file Insurance [place] [facility] Care Teams Crawler Dragline Operator Relationship Specialty Start Date End Date Jaymie Haas MD [address] [place] [address] PCP - General Family Medicine 01/30/21
--- NOTE | 2025-05-09 09:17 | PM.CN ---
Consult Note: HPI Data of Consult Patient: known to practice within the last 3 years Consult date: 05/09/25 Requesting Physician: Cheryl Arango NP Primary Care Provider: Jaymie Haas MD Consult Narrative Reason for consult: low back pain Narrative: 49yom who presents for assessment. continues to use diclofenac, baclofen, percocet and gabapentin. denies adverse med side effects. Pain today 3/10, occasionally increasing to 6/10 with standing, walking, activity, sleep. Pain improved with sitting and lying. Prior CT of lumbar spine revealed facet arthropathy and lumbar DDD at L5-S1. Since last visit pt did not complete his right shoulder xray despite numerous reminders, has not been evaluated by Dr Loco and team. notes his pain is well controlled with current medications. cc:: CC: Cheryl Arango NP Review of Systems ROS Musculoskeletal Reports: back pain and joint pain PFSH PFS Medical History (Updated 05/09/25 @ 09:20 by Cheryl Arango NP) Lumbar back pain ?M54.50 - Low back pain, unspecified (ICD-10) High cholesterol ?E78.00 - Pure hypercholesterolemia, unspecified (ICD-10) Glenoid cavity and neck of scapula fracture ?S42.143A - Displaced fracture of glenoid cavity of scapula, unspecified shoulder, initial encounter for closed fracture (ICD-10) ?S42.153A - Displaced fracture of neck of scapula, unspecified shoulder, initial encounter for closed fracture (ICD-10) Subdural hematoma ?S06.5XAA - Traumatic subdural hemorrhage with loss of consciousness status unknown, initial encounter (ICD-10) Osteoarthritis ?M19.90 - Unspecified osteoarthritis, unspecified site (ICD-10) Asthma ?J45.909 - Unspecified asthma, uncomplicated (ICD-10) HTN (hypertension) ?I10 - Essential (primary) hypertension (ICD-10) Surgical History (Updated 08/29/24 @ 10:02 by Sherri Vasques) S/P ORIF (open reduction internal fixation) fracture ?Z98.890 - Other specified postprocedural states (ICD-10) ?Z87.81 - Personal history of (healed) traumatic fracture (ICD-10) History of facial surgery ?Z98.890 - Other specified postprocedural states (ICD-10) Hx of colonoscopy ?Z98.890 - Other specified postprocedural states (ICD-10) S/P correction of deviated nasal septum ?Z98.890 - Other specified postprocedural states (ICD-10) Social History Little interest or pleasure in doing things: not at all Feeling down, depressed, or hopeless: not at all Meds Home Medications and Allergies Home Medications ?Medication ?Instructions ?Recorded ?Confirmed ?Type albuterol sulfate 90 mcg/actuation 2 inh inhalation Q3H PRN shortness 03/22/23 07/16/24 History aerosol inhaler of breath or wheezing lisinopril 20 mg tablet 10 mg PO DAILY 03/22/23 02/14/25 History simvastatin 20 mg tablet 20 mg PO DAILY 03/22/23 08/29/24 History sumatriptan succinate 50 mg tablet See Rx Instructions PO .COMPLEX 03/22/23 07/16/24 History diclofenac sodium 50 mg 50 mg PO BID PRN pain #60 tabs 02/29/24 08/29/24 Rx tablet,delayed release baclofen 10 mg tablet 10 mg PO TID PRN muscle spasm #90 04/26/24 08/29/24 Rx tabs naloxone 4 mg/actuation nasal 4 mg intranasal Q3M PRN opioid 07/04/24 07/16/24 Rx spray (Narcan) overdose #2 ea Glucosamine chondroitin 1 tab PO BID 08/29/24 08/29/24 History multivitamin 1 tab PO DAILY 08/29/24 08/29/24 History gabapentin 600 mg tablet 600 mg PO BID #60 tabs 01/28/25 Rx oxycodone-acetaminophen 5 mg-325 1 tab PO TID PRN pain #90 tabs 01/28/25 Rx mg tablet (Percocet) diclofenac sodium 50 mg 50 mg PO BID #60 tabs 02/25/25 Rx tablet,delayed release gabapentin 600 mg tablet 600 mg PO BID #60 tabs 02/25/25 Rx oxycodone-acetaminophen 5 mg-325 1 tab PO TID PRN pain #90 tabs 02/25/25 Rx mg tablet (Percocet) oxycodone-acetaminophen 5 mg-325 1 tab PO TID PRN pain #90 tabs 03/27/25 Rx mg tablet (Percocet) gabapentin 600 mg tablet 600 mg PO BID #60 tabs 04/04/25 Rx oxycodone-acetaminophen 5 mg-325 1 tab PO TID PRN pain #90 tabs 04/29/25 Rx mg tablet (Percocet) baclofen 10 mg tablet 10 mg PO TID PRN muscle spasm #90 05/01/25 Rx tabs Allergies Allergy/AdvReac Type Severity Reaction Status Date / Time tramadol Allergy Nausea Verified 08/29/24 21:22 nalbuphine (From Nubain) AdvReac Unknown Nausea Verified 08/29/24 21:22 Exam Constitutional Documenting provider has reviewed patient's vital signs: yes Common normals: no apparent distress, oriented x3, healthy appearing, alert and well nourished General appearance: cooperative HENMT Common normals: normocephalic, hearing grossly normal bilaterally and moist oral mucous membranes Head and scalp: normocephalic Eye Common normals: PERRL Pupil: PERRL Neck & C-Spine Common normals: full ROM General: normal visual inspection Chest Common normals: inspection of chest normal Respiratory Common normals: normal respiratory effort, no retractions and no use of accessory muscles Back & Pelvis Lumbar spine/lower back: ROM limited, pain with ROM, paraspinal muscle tenderness and straight leg raise negative bilaterally; no lumbar spinal tenderness and no paraspinal muscle spasm Other: sensation intact BLE strength 5/5 in BLE Extremity Right upper extremity: shoulder joint Other: positive empty can and posterior liftoff, increased pain in right AC joint with crossbody adduction. limited ROM with overhead reach Neuro Common normals: oriented x3, CN's II-XII intact bilaterally, moves all extremities, no focal motor deficits, no sensory deficits noted and deep tendon reflexes 2+ bilaterally Sensorium/orientation: alert Motor exam: strength 5/5 throughout and no movement abnormalities noted Psych Common normals: mental status grossly normal, thought process normal, cooperative, affect normal, speech normal and activity/motor behavior normal Speech: normal speech Thought process: normal thought process Assessment and Plan Assessment and Plan (1) Chronic right shoulder pain: (2) Lumbar spondylosis: (3) Lumbar degenerative disc disease: (4) Chronic prescription opiate use: (5) Muscle spasm: (6) Sacroiliitis: (7) Chronic pain syndrome: (8) Noncompliance: Assessment and Plan: since last visit pt continues to utilize percocet 5-325mg TID, has not trialed BID dosing as he has increased pain without the percocet has not completed his right shoulder xray despite numerous reminders and being instructed to complete before todays appointment, pt was instructed to go complete this at the hospital after todays appointment. pt verbalized agreement Plan continue current medications, risks vs benefits reviewed. pt again encouraged to decrease percocet usage to BID to TID PRN moderate to severe pain. as discussed today at next visit we will discuss weaning pt to hydrocodone in efforts to reduce risks, addiction, opioid tolerance continue HEP as tolerated continue f/u with NS Dr Loco for consideration of surgical intervention vs spinal cord stimulation, pt reports he's been playing phone tag with their office update right shoulder xray to assess OA f/u 2 weeks to review shoulder xray and plan of care
== END 2025-05-09 08:51 | disposition home or self-care (01) ==
LOC: PM 08:50
PROVIDERS: PCP Family Medicine; Visit Provider Nurse Practitioner
DX: M25.511 Pain in right shoulder (principal); M47.816 Spondylosis without myelopathy or radiculopathy, lumbar region; M51.369 Other intervertebral disc degeneration, lumbar region without mention of lumbar back pain or lower extremity pain; Z79.891 Long term (current) use of opiate analgesic; M62.838 Other muscle spasm; M46.1 Sacroiliitis, not elsewhere classified; G89.4 Chronic pain syndrome; Z91.199 Patient's noncompliance with other medical treatment and regimen due to unspecified reason; Z98.890 Other specified postprocedural states
CPT/HCPCS: 73030; G0463

== ENCOUNTER 2025-05-09 09:25 | Outpatient (OUT) | payer BC, SELFPAY ==
--- NOTE | 2025-05-09 09:46 | XR_ITS ---
The [address] [address] Patient Name: SUSHILA YATES MRN: [id number] date: 1975 Sex: M Assigned Patient Location: [facility] Current Patient Location: [facility] Accession/Order Number: [id number] Exam Date: 05/09/2025 09:55 Report Date: 05/09/2025 11:08 At the request of: CAREY BHATT NP Procedure: XR shoulder RT min 2V RIGHT SHOULDER - 3 views CLINICAL HISTORY: Posterior right shoulder pain, without injury. Previous surgery. COMPARISON: Chest x-ray 05/01/2024 AP, Y and Grashey views were obtained. Clips/pins overlie the glenohumeral joint on the AP and Grashey views. There is no acute fracture or dislocation. Mild degenerative changes seen at the acromioclavicular joint and greater tuberosity. There is moderate spurring at the inferior glenohumeral joints where there are adjacent osteochondral loose bodies. There is narrowing of the acromiohumeral interval and rotator cuff disease is possible. There is no obvious soft tissue swelling. XR/XR shoulder RT min 2V IMPRESSION: POSTOPERATIVE AND DEGENERATIVE CHANGES, DESCRIBED. Impression dictated by: Corinna Eduardo M.D. 05/09/2025 11:08 AM Dictation Location: [place] [address] Electronically authenticated by: [id number] Y Date: 05/09/2025 11:08
== END 2025-05-09 09:26 | disposition home or self-care (01) ==
LOC: RAD 09:26
PROVIDERS: PCP Family Medicine; Visit Provider Nurse Practitioner
DX: M25.511 Pain in right shoulder (principal); Z98.890 Other specified postprocedural states
CPT/HCPCS: 73030

== ENCOUNTER 2025-05-23 14:41 | Outpatient (OUT) | payer BC, SELFPAY ==
--- OUTSIDE RECORDS SUMMARY | 2025-05-23 14:45 | XMS_ITS | CCD ---
Author Organization [facility] Care Team Providers Care [place] Technician Name Role Phone Chantal Mart MD Primary [...] Unavailable Chantal Mart MD Primary Care Provider [phone] Chantal Mart MD Attending Provider [phone] Chantal Mart MD Primary Care Provider Rolo Phoenix DO Unavailable [phone] NAPORA, ADAM K Referring Unavailable NAPORA, ADAM K Admitting Unavailable NAPORA, ADAM K Attending Unavailable CHANTAL MART Primary Care Unavailable NAPORA, ADAM K Referring Unavailable CHANTAL MART Primary Care Unavailable NAPORA, ADAM K Referring Unavailable CHANTAL MART Primary Care Unavailable NAPORA, ADAM K Referring Unavailable CHNATAL MART Primary Care Unavailable NAPORA, ADAM K Attending Unavailable CHANTAL MART Primary Care Unavailable ADAM NAVARRO Referring Unavailable CHANTAL MART Primary Care Unavailable ADAM NAVARRO Attending Unavailable CHANTAL MART Primary Care Unavailable ADAM NAVARRO Referring Unavailable CHANTAL MART Primary Care Unavailable Chantal Mart MD Primary Care Provider Chantal Mart MD Primary Care Provider [phone] Chantal Mart MD Attending Provider [phone] ROLO PHOENIX Attending Unavailable CHANTAL MART Referring Unavailable LIZETT, ROLO Tellez Referring Unavailable LIZETT, ROLO Tellez Attending Unavailable CHANTAL MART Referring Unavailable LIZETT, ROLO Tellez Attending Unavailable LIZETT, ROLO Tellez Attending Unavailable TOM ZARATE Attending Unavailable Allergies Allergy Classification Reported Allergen(s) Allergy Type Date of Onset Reaction(s) Facility Nalbuphine (2 sources) Nalbuphine Drug Allergy 7 [facility] Opioid Agonists (2 sources) traMADol Drug Allergy 1 Nausea And Vomiting [facility] (15 sources) Nalbuphine; Translations: [Nubain] Drug Allergy 7 BP dropped [facility] Repository (20 sources) traMADol; Translations: [TRAMADOL] Drug Allergy 6 Nausea And Vomiting, Unknown [employer] Other Comment on above: Onset Date: 05/17/20 16 (6 sources) Nubain *ANALGESICS - OPIOID* Propensity to adverse reactions Unknown [employer] Other (3 sources) Allergies Reconciled Propensity to adverse reactions Unknown [employer] Other (3 sources) patient allergy list reviewed by nurse or physicia Propensity to adverse reactions 9 Comment:Done [employer] Other (20 sources) Nalbuphine; Translations: [NALBUPHINE] Drug Allergy 7 [facility] (1 source) No Known Medication Allergies; Translations: [No Known Medication Allergies] Propensity to adverse reactions (disorder) [facility] Repository (1 source) Nalbuphine Drug Allergy 12-03-202 4 [facility] Repository (1 source) traMADol Drug Allergy 4 [facility] Repository (1 source) ALLERGIES NOT ON FILE; Translations: [ALLERGIES NOT ON FILE] Propensity to adverse reactions (disorder) [facility] Medications Current Medications Medication Drug [...] / oxyCODONE hydrochloride 5 mg oral tablet (20 sources) Opioid Agonist Start: 12-03-2024 take 1 [...] inhalation solution (20 sources) beta2-Adrenergic Agonist Start: 03-11-2025 albut raymundo (2.5 MG/3ML) 0.083% nebulizer solution Indications: Acute cough , Chest congestion , Mild intermittent asthmatic bronchitis with acute exacerbation (HCC) Take 3 mL (2.5 mg) by nebulization every 6 (six) hours if needed for wheezing 75 mL 03/11/2025 Active Start: 09-24-2024 take 3 mL by inhalat ion every six hours as needed Albuterol Sulfate 2.5 mg /3 mL (0.083 %) solution for nebulization Active 2.5 MG INHALATION Every 6 hours September 24, 2024 1:00am [employer] mL as needed Inhalation every 6 hrs; Note: Source Status: Taking; Provider: Barron Coon ( ) Complies with drug therapy Start: 05-08-2024 albuterol HFA 90 mcg/act inhaler [...] INTO THE LUNGS EVERY 4 HOURS NEEDED Complies with drug therapy Start: 03-13-2024 End: 03-13-2024 take 1 puff(s) [...] at 2100 azithromycin 250 mg oral tablet (14 sources) Macrolide Antimicrobial Start: 03-11-2025 azithromycin (Zithromax) 250 MG tablet Indications: Acute cough , Chest congestion , Mild intermittent asthmatic bronchitis with acute exacerbation (HCC) Take 1 tablet (250 mg) by mouth Daily Take 2 tabs on day 1 and 1 tab on days 2-5 then stop 6 tablet 03/11/2025 Active Start: 09-26-2024 End: 11-30-2024 Azithromycin 250 mg tablet D iscontinued 0 PO .COMPLEX October 15, 2024 11:59am November 30, 2024 [...] 4 more days for 5 December, Active baclofen 10 mg oral tablet (15 sources) gamma-Aminobutyric Acid-ergic Agonist Start: 06-19-2024 take [...] sore throat, Starting on Tue12/09/23 at 0739 benzonatate 100 mg oral capsule (2 sources) Non-narcotic Antitussive Start: 03-11-2025 take 1 capsule by mouth three times daily as needed for cough benzonatate (Tessalon Perles) 100 MG capsule Indications: Acute cough , Chest congestion , Mild intermittent asthmatic bronchitis with acute exacerbation (HCC) Take 1 capsule (100 mg) by mouth 3 (three) times a day as needed for cough Do not crush or chew. 21 capsule 03/11/2025 Active bisacodyl 10 mg rectal suppository (1 source) [...] Vitamin D Start: 12-14-2023 End: 01-13-2024 calcium carbonate-tomas min D3 (Calcium 600 with Vitamin D3) 600 mg-10 mcg (400 unit) chewable tablet Indications: Pelvic pain Chew 1 tablet 2 times a day. 60 tablet 12/14/2023 01/13/2024 Active cetirizine hydrochloride 10 mg oral tablet (20 sources) Histamine-1 Receptor Antagonist Start: 11-29-2022 take 1 tablet by mouth twice daily Cetirizine 10 mg Tablet Active 10 MG PO Twice daily November 29, 2022 12:00am Complies with drug therapy take 1 tablet by olive th every [...] MCG PO Daily November 29, 2022 12:00am Complies with drug therapy take 1 tablet by olive th in the morning cholecalciferol (Vitamin D-3) 125 MCG (5000 UT) tablet Take 5,000 Units by mouth in the morning. Active take 1 tablet by oliev th once daily cholecalciferol (Vitamin D-3) 5,000 [...] PO Twice daily November 29, 2022 12:00am Complies with drug therapy take 1 tablet by mouth in the [...] propionate 0.093 mg/actuat metered dose nasal spray (11 sources) Corticosteroid Start: 12-11-2024 take 1 puff(s) nasal route in the morning Fluticasone Propionate (Xhance) 93 MCG/ACT Exhaler Suspension Indications: Chronic sinusitis, unspecified location , Nasal polyp Administer 1 puff into affected nostril(s) in the morning and 1 puff before bedtime. Samples LOT # [id number] Exp 10/2025. 16 mL 1 12/11/2024 Active [...] Start: 10-27-2023 take 1 capsule by mo [facility] once daily at bedtime gabapentin [...] pain severe (7-10), first line, Starting on [facility] 12/08/23 at 1441, Recovery (only), Max total of 4 mg regardless of dose. lisinopril 10 mg oral tablet (20 sources) Angiotensin Converting Enzyme Inhibitor Start: 12-27-2024 take 1 tablet by mouth once daily Lisinopril 10 mg tablet Active 10 MG PO Daily December 27, 2024 1:57pm Complies with drug therapy Start: 11-15-2023 End: 12-27-2024 take 1 tablet [...] 15, 2023 8:41am take 1 tablet by [facility] once daily lisinopril (PRINIVIL;ZESTRIL) 10 MG tablet [...] BY MOUTH EVERY DAY 0 11/16/2020 Active methylPREDNISolone (2 sources) Corticosteroid Start: 03-11-2025 End: 03-18-2025 methylPREDNISolone (Medrol Dospak) 4 MG tablets Indications: Acute cough , Chest congestion , Mild intermittent asthmatic bronchitis with acute exacerbation (HCC) Follow schedule on package instructions 21 tablet 03/11/2025 03/18/2025 Active multivitamin tablet (9 sources) take 1 tablet by mouth once daily multivitamin tablet Take 1 tablet by mouth once daily. Active Multivitamin Tablet (5 sources) Start: 11-29-2022 take 1 tablet by mouth once daily Multivitamin Tablet Active 1 TAB PO Daily November 29, 2022 12:00am Complies with drug therapy Start: 11-29-2022 take 1 tablet by olive th once daily Multivitamin Tablet Active 1 TAB PO Daily November 29, 2022 12:00am Start: 11-29-2022 take 1 tablet by olive th once daily Multivitamin Tablet Active 1 TAB PO Daily November 28, 2022 11:00pm omeprazole 40 mg delayed release oral capsule (7 sources) Proton Pump Inhibitor Start: 01-03-2025 End: [...] 2 hour PRN, sore throat, Starting on [place] 12/11/23 at 1141, Instruct patient to spit out after 15 seconds. polyethylene glycol 3350 08687 mg powder for oral solution (1 source) [...] line, Starting on Tue12/11/23 at 2110 sennosides, residential 8.6 mg oral tablet (1 source) Start: 12-08-2023 take 1 tablet by mouth once daily 8.6 mg (1 tablet), oral, Nightly, First dose on Tue12/08/23 at 2100 sildenafil 100 mg oral tablet (20 sources) Phosphodiesterase 5 Inhibitor Start: 01-14-2025 End: 02-06-2025 Sildenafil 100 mg tablet Active 100 MG PO Daily as needed for sexual activity February 06, 2025 8:50am administer 30 minutes to 4 hours before activity Complies with drug therapy Start: 08-11-2024 sildenafil (Vi agra) 50 MG tablet 08/11/2024 Active Start: 07-16-2024 End: 01-14-2025 Sildenafil (Viagra) 50 mg ta blet Discontinued 50 MG PO Daily as needed for sexual activity December 10, 2024 4:05pm January 14, 2025 8:32am administer 30 minutes to 4 hours before [...] at 1350 SUMAtriptan 50 mg oral tablet (10 sources) Serotonin-1b and Serotonin-1d Receptor Agonist Start: 01-29-2025 take 1 tablet by mouth every two hours, then take 4 tablets by mouth every hour Sumatriptan Succinate 50 mg tablet Active 0 .ROUTE .COMPLEX January 29, 2025 12:42pm TAKE 1 TABLET BY MOUTH AT ONSET OF HEADACHE. MAY REPEAT IN 2 HOURS IF NO RELIEF. MAX 4 TABS/24 HOURS Complies with drug therapy Start: 12-27-2024 End: 01-29-2025 SUMAtriptan (Imitrex) 50 MG tablet 12/27/2024 Active tiZANidine 4 mg oral tablet (11 sources) Central alpha-2 Adrenergic Agonist Start: 11-20-2020 take 1 tablet by mouth three times daily as needed tiZANidine (ZANAFLEX) 4 MG tablet TAKE 1 TABLET BY MOUTH 3 TIMES A DAY NEEDED 0 11/20/2020 Active valACYclovir 1000 mg oral tablet (11 sources) Herpesvirus Nucleoside Analog DNA Polymerase Inhibitor, Herpes Simplex Virus Nucleoside Analog DNA Polymerase Inhibitor, Herpes Zoster Virus Nucleoside Analog DNA Polymerase Inhibitor Start: 09-03-2024 End: 09-17-2024 Valacyclovir (Valtrex) 1 gram tablet Active 2000 MG PO Twice daily September 17, 2024 5:27pm Complies with drug therapy take 1 tablet by mouth twice jesi [...] hour 100 mL/hr, intravenous, Continuous, Starting on [place] 12/08/23 at 1500, Recovery (only) ceFAZolin 2000 mg [...] End: 02-25-2021 lidocaine 2 % injection Magnesium (5 sources) Start: 11-29-2022 End: 01-12-2024 take 2 [...] 09/24/2023 ondansetron 4 mg disintegrating oral tablet (15 sources) Serotonin-3 Receptor Antagonist Start: 09-26-2024 End: [...] 20 mg tablet Discontinued 0 .ROUTE .COMPLEX 90 May 16, 2024 11:04am November 08, 2024 [...] 50 mg tablet Discontinued 0 .ROUTE .COMPLEX 90 April 30, 2024 1:12pm November 05, 2024 [...] Translations: [Generalized anxiety disorder] Onset: 8 Chronic Asthma (20 sources) Reactive airways dysfunction syndrome; Translations: [Unspecified asthma, uncomplicated] Onset: 4 Resolved: 5 12-08-2023 Chronic Chronic obstructive pulmonary disease and bronchiectasis (3 sources) Acute exacerbation of chronic asthmatic bronchitis; Translations: [Chronic obstructive asthma, with (acute) exacerbation] Onset: 7 Chronic Chronic obstructive pulmonary disease and bronchiectasis (4 sources) Bronchitis, not specified as acute or chronic; Translations: [BRONCHITIS NOT SPEC ACUTE/CHRON] Onset: 3 Episodic Complications of surgical procedures or medical care (8 sources) Headache following lumbar puncture; Translations: [Other reaction to spinal and lumbar puncture] 09-06-2024 Episodic Conditions associated with dizziness or vertigo (3 sources) Benign paroxysmal vertigo, left ear; Translations: [Lightheadedness] Episodic Esophageal disorders (2 sources) Laryngopharyngeal reflux; Translations: [Gastro-esophageal reflux disease without esophagitis] 01-03-2025 Chronic Headache; including migraine (20 sources) Complicated migraine; Translations: [Migraine with aura, [...] and colitis, unspecified] Episodic Nonspecific chest pain (6 sources) Chest pain, unspecified; Translations: [Chest pain [...] reading, without diagnosis of hypertension] Episodic Other circulatory disease (2 sources) Pulmonary congestion ; Translations: [Other specified symptoms and signs involving the circulatory and respiratory systems] 03-11-2025 Episodic Other connective tissue disease (4 sources) [...] physical injury and trauma] 11-13-2024 Episodic Other lower respiratory disease (2 sources) Cough; Translations: [Acute cough] 03-11-2025 Episodic Other nervous system disorders (1 source) [...] of the skin] Episodic Other skin disorders (5 sources) Skin tag; Translations: [Other hypertrophic disorders [...] 7 11-13-2024 Chronic Other upper respiratory infections (6 sources) Acute maxillary sinusitis; Translations: [Acute maxillary sinusitis, unspecified] 09-27-2024 Episodic Otitis media and related conditions (3 sources) Non-suppurative otitis media; Translations: [Unspecified nonsuppurative otitis media, right ear] Episodic Residual codes; unclassified (3 sources) Family history of malignant neoplasm of gastrointestinal tract; Translations: [Family history of malignant neoplasm of digestive organs] Episodic Residual codes; unclassified (4 sources) Family history of prostate cancer; Translations: [...] Translations: [Personal history of COVID-19] Viral infection (9 sources) Viral infection, unspecified; Translations: [Recurrent herpes [...] 11-26-2015 Episodic Joint disorders and dislocations; trauma-related (18 sources) Traumatic pubic symphysis separation; Translations: [Traumatic [...] [ELEVATED BP READING W/O DX HTN] Onset: 08-25-2022 Episodic Other connective tissue disease (3 sources) Ganglion of joint; Translations: [Ganglion of joint] Onset: 01-10-2019 Episodic Other connective tissue disease (3 sources) Cramp in limb; Translations: [Cramp of limb] Onset: 02-28-2018 Episodic Other fractures (20 sources) Fracture of pelvis; Translations: [Fracture of [...] unspecified] Onset: 08-02-2018 Episodic Residual codes; unclassified (18 sources) Family history of cancer of colon; [...] Basophils (Bld) [#/Vol] Automated basophil count 0.0-0.1 [facility] Basophils (Bld) [#/Vol] 0.1 10 3/uL 0.0-0.1 [facility] Basophils/100 WBC Auto (Bld) on 11-30-2024 Basophils/100 WBC (Bld) Automated basophil % 0.2-2.0 [facility] Basophils/100 WBC (Bld) 0.8 % 0.2-2.[address] [facility] [address] MAXILLOFACIAL WO IV CONTR Donnie [...] [Mass/volume] in Serum or Plasma by calculation [facility] Comment on above: <100 mg/dl [id number] 0-129 mg/dl NEAR OR ABOVE [id number] mg/dl BORDERLINE [id number] mg/dl HIGH>190 mg/dl VERY HIGH Cholesterol in LDL [Mass/Vol] 80.0 mg/dL [facility] Comment on above: <100 mg/dl [id number] 0-129 mg/dl NEAR OR ABOVE [id number] mg/dl BORDERLINE [id number] mg/dl HIGH>190 mg/dl VERY HIGH Cholesterol in VLDL Calc [Ma ss/Vol]on 11-30-2024 Cholesterol in VLDL [Mass/Vol] Cholesterol in VLDL [Mass/volume] in Serum or Plasma by calculation [facility] Cholesterol in VLDL [Mass/Vol] 17.0 mg/dL [facility] Eosinophils/100 WBC Auto (Bl d)on 11-30-2024 Eosinophils/100 WBC (Bld) Automated eosinophil % 0.9-7.0 [facility] Eosinophils/100 WBC (Bld) 3.5 % 0.9-7.0 [facility] Erythrocyte distribution wid th Auto (RBC) [Ratio]on 11-30-2024 Erythrocyte distribution width (RBC) [Ratio] Erythrocyte distribution width [Ratio] by Automated count 11.0-15.0 [facility] Erythrocyte distribution width (RBC) [Ratio] 14.3 % 11.0-15.0 [facility] Estimated glomerular filtrat ion rate (GFR) non- Americanon 11-30-2024 GFR/1.73 sq M.predicted among non-blacks MDRD (S/P/Bld) [Vol rate/Area] Estimated glomerular filtration rate (GFR) non- >=60 mL/min/1.73m 2 [facility] GFR/1.73 sq M.predicted among non-blacks MDRD (S/P/Bld) [Vol rate/Area] mL/min/{1.73_m2} >=60 mL/min/1.73m 2 [facility] Globulin Calc (S) [Mass/Vol] on 11-30-2024 Globulin (S) [Mass/Vol] Serum globulin measurement by calculation (mass/volume) [facility] Globulin (S) [Mass/Vol] 3.0 g/dL [facility] Hematocrit Auto (Bld) [Volum e fraction]on 11-30-2024 Hematocrit (Bld) [Volume fraction] Hematocrit [Volume Fraction] of Blood by Automated count Low 42.0-54.0 [facility] Hematocrit (Bld) [Volume fraction] 37.7 % Low 42.0-54.0 [facility] Hemoglobin [Mass/volume] in Bloodon 11-30-2024 Hemoglobin (Bld) [Mass/Vol] Hemoglobin [Mass/volume] in Blood Low 14.0-18.0 [facility] Hemoglobin (Bld) [Mass/Vol] 11.8 g/dL Low 14.0-18.0 [facility] Laboratory - Chemistry and C hemistry - challengeon 11-30-2024 Albumin [Mass/Vol] 3.5 g/dL 3.4-5.0 [facility] ALP [Catalytic activity/Vol] 61 U/L 46-116 [facility] ALT [Catalytic activity/Vol] 19 U/L 16-63 [facility] AST [Catalytic activity/Vol] 16 U/L 15-37 [facility] Bilirubin [Mass/Vol] 0.4 mg/dL 0.2-1.0 [facility] Calcium [Mass/Vol] 8.5 mg/dL 8.5-10.1 [facility] Chloride [Moles/Vol] 106 mmol/L 98-107 [facility] Cholesterol [Mass/Vol] 129 mg/dL <=200 [facility] Cholesterol in HDL [Mass/Vol] 32 mg/dL Low 40-60 [facility] Comment on above: > or =60 mg/dl - LOW CARDIOVASCULAR RISK<40 mg/dl - HIGH CARDIOVASCULAR RISK CO2 [Moles/Vol] 28.9 mmol/L 21.0-32.0 [facility] Creatinine [Mass/Vol] 0.93 mg/dL 0.70-1.30 [facility] GFR/1.73 sq M.predicted MDRD (S/P/Bld) [Vol rate/Area] mL/min/{1.73_m2} >=60 mL/min/1.73m 2 [facility] Glucose [Mass/Vol] 92 mg/dL 74-106 [facility] Potassium [Moles/Vol] 4.4 mmol/L 3.5-5.1 [facility] Protein [Mass/Vol] 6.5 g/dL 6.4-8.2 [facility] Sodium [Moles/Vol] 141 mmol/L 136-145 [facility] Triglyceride [Mass/Vol] 85 mg/dL <=150 [facility] Urea nitrogen [Mass/Vol] 10.0 mg/dL 7.0-18.0 [facility] Urea nitrogen/Creatinine [Mass ratio] 10.8 mg/mg [facility] Laboratory - Hematology and Cell countson 11-30-2024 Immature granulocytes/100 WBC (Bld) 0.3 % 0.0-0.5 [facility] Leukocytes [#/volume] correc camilo for nucleated erythrocytes in Blood by Automated counon 11-30-2024 WBC corrected for nucl RBC Auto (Bld) [#/Vol] Leukocytes [#/volume] corrected for nucleated erythrocytes in Blood by Automated coun 4.0-11.0 [facility] WBC corrected for nucl RBC Auto (Bld) [#/Vol] 7.2 10 3/uL 4.0-11.0 [facility] Lymphocytes Auto (Bld) [#/Vo l]on 11-30-2024 Lymphocytes (Bld) [#/Vol] Lymphocytes [#/volume] in Blood by Automated count 1.2-3.8 [facility] Lymphocytes (Bld) [#/Vol] 1.8 10 3/uL 1.2-3.8 [facility] Lymphocytes/100 WBC Auto (Bl d)on 11-30-2024 Lymphocytes/100 WBC (Bld) Lymphocytes/100 leukocytes in Blood by Automated count 20.5-60.0 [facility] Lymphocytes/100 WBC (Bld) 24.7 % 20.5-60.0 [facility] MCH Auto (RBC) [Entitic mass ]on 11-30-2024 MCH (RBC) [Entitic mass] MCH [Entitic mass] by Automated count Low 25.9-34.0 [facility] MCH (RBC) [Entitic mass] 24.7 pg Low 25.9-34.0 [facility] MCHC Auto (RBC) [Mass/Vol]on 11-30-2024 MCHC (RBC) [Mass/Vol] MCHC [Mass/volume] by Automated count 29.9-35.2 [facility] MCHC (RBC) [Mass/Vol] 31.3 g/dL 29.9-35.2 [facility] MCV Auto (RBC) [Entitic vol] on 11-30-2024 MCV (RBC) [Entitic vol] MCV [Entitic volume] by Automated count Low 80.0-94.0 [facility] MCV (RBC) [Entitic vol] 79.0 fL Low 80.0-94.0 [facility] Monocytes Auto (Bld) [#/Vol] on 11-30-2024 Monocytes (Bld) [#/Vol] Automated blood monocyte count 0.3-0.8 [facility] Monocytes (Bld) [#/Vol] 0.6 10 3/uL 0.3-0.8 [facility] Monocytes/100 WBC Auto (Bld) on 11-30-2024 Monocytes/100 WBC (Bld) Automated monocyte % 1.7-12.0 [facility] Monocytes/100 WBC (Bld) 8.4 % 1.7-12.0 [facility] Neutrophils Auto (Bld) [#/Vo l]on 11-30-2024 Neutrophils (Bld) [#/Vol] Neutrophils [#/volume] in Blood by Automated count 1.4-6.5 [facility] Neutrophils (Bld) [#/Vol] 4.5 10 3/uL 1.4-6.5 [facility] Neutrophils/100 WBC Auto (Bl d)on 11-30-2024 Neutrophils/100 WBC (Bld) Automated neutrophil % 43.0-75.0 [facility] Neutrophils/100 WBC (Bld) 62.3 % 43.0-75.0 [facility] No Panel Informationon 11-30 Eosinophils # (Auto) 0.3 10 3/uL 0.0-0.7 [facility] Immature Granulocyte # (Auto) 0.02 10 3/uL 0.00-0.03 [facility] Prostate Specific Antigen Screen 2.52 ng/mL <=4.00 [facility] Platelet mean volume Auto (B ld) [Entitic vol]on 11-30-2024 Platelet mean volume (Bld) [Entitic vol] Platelet mean volume [Entitic volume] in Blood by Automated count Low 9.5-13.5 [facility] Platelet mean volume (Bld) [Entitic vol] 9.0 fL Low 9.5-13.5 [facility] Platelets Auto (Bld) [#/Vol] on 11-30-2024 Platelets (Bld) [#/Vol] Platelets [#/volume] in Blood by Automated count 150-450 [facility] Platelets (Bld) [#/Vol] 302 10 3/uL 150-450 [facility] RBC Auto (Bld) [#/Vol]on RBC (Bld) [#/Vol] Erythrocytes [#/volume] in Blood by Automated count 4.70-6.10 [facility] RBC (Bld) [#/Vol] 4.77 10 6/uL 4.70-6.10 [facility] Serum or plasma albumin/glob ulin mass ratioon 11-30-2024 Albumin/Globulin [Mass ratio] Serum or plasma albumin/globulin mass ratio [facility] Albumin/Globulin [Mass ratio] 1.2 {ratio} [facility] Serum or plasma anion gap de terminationon 11-30-2024 Anion gap [Moles/Vol] Serum or plasma anion gap determination [facility] Anion gap [Moles/Vol] 10.5 mmol/L [facility] Serum or plasma total choles terol/high density lipoprotein (HDL) cholesterol mass nirav 11-30-2024 Cholesterol.total/Chol esterol in HDL [Mass ratio] Serum or plasma total cholesterol/high density lipoprotein (HDL) cholesterol mass rat [facility] Comment on above: 3.3 - 4.4 LOW RISK4. 4 - 7.1 AVERAGE RISK7.1 - 11.0 MODERATE RISK>11.0 HIGH RISK Cholesterol.total/Chol esterol in HDL [Mass ratio] 4.0 {ratio} [facility] Comment on above: 3.3 - 4.4 LOW RISK4. 4 - 7.1 AVERAGE RISK7.1 - 11.0 MODERATE RISK>11.0 HIGH RISK XR PELVIS 3+ VIEWSon 025 XR PELVIS 3+ VIEWS Interpreted By: Sushma Black, STUDY: Pelvis, 5 views. INDICATION: Signs/Symptoms:pelvi s fracture. COMPARISON: 05/23/2024. ACCESSION NUMBER(S): [id number] ORDERING CLINICIAN: ADAM NAVARRO FINDINGS: No acute [...] Sushma Black 11/22/2024 1:23 PM Dictation workstation: [id number] [facility] Comment on above: Order Comment: 5 malia w of the pelvis Influenza virus B Ag [Presen ce] in Upper respiratory specimen by Rapid immunoassayon 09-26-2024 FLUBV Ag IA.rapid Ql (Nph) Influenza virus B Ag [Presence] in Upper respiratory specimen by Rapid immunoassay [facility] No Panel Informationon 09-26 Influenza Type A (Rapid) Negative [facility] POC SARS CoV-2 Antigen Negative [facility] Basophils Auto (Bld) [#/Vol] on 08-29-2024 Basophils (Bld) [#/Vol] Automated basophil count 0.0-0.1 [facility] Basophils/100 WBC Auto (Bld) on 08-29-2024 Basophils/100 WBC (Bld) Automated basophil % 0.2-2.0 [facility] Eosinophils/100 WBC Auto (Bl d)on 08-29-2024 Eosinophils/100 WBC (Bld) Automated eosinophil % 0.9-7.0 [facility] Erythrocyte distribution wid th Auto (RBC) [Ratio]on 08-29-2024 Erythrocyte distribution width (RBC) [Ratio] Erythrocyte distribution width [Ratio] by Automated count 11.0-15.0 [facility] Estimated glomerular filtrat ion rate (GFR) non- Americanon 08-29-2024 GFR/1.73 sq M.predicted among non-blacks MDRD (S/P/Bld) [Vol rate/Area] Estimated glomerular filtration rate (GFR) non- >=60 mL/min/1.73m 2 [facility] Hematocrit Auto (Bld) [Volum e fraction]on 08-29-2024 Hematocrit (Bld) [Volume fraction] Hematocrit [Volume Fraction] of Blood by Automated count Low 42.0-54.0 [facility] Hemoglobin [Mass/volume] in Bloodon 08-29-2024 Hemoglobin (Bld) [Mass/Vol] Hemoglobin [Mass/volume] in Blood Low 14.0-18.0 [facility] Laboratory - Chemistry and C hemistry - challengeon 08-29-2024 Calcium [Mass/Vol] 8.7 mg/dL 8.5-10.1 [facility] Chloride [Moles/Vol] 102 mmol/L 98-107 [facility] CO2 [Moles/Vol] 27.9 mmol/L 21.0-32.0 [facility] Creatinine [Mass/Vol] 1.20 mg/dL 0.70-1.30 [facility] GFR/1.73 sq M.predicted MDRD (S/P/Bld) [Vol rate/Area] mL/min/{1.73_m2} >=60 mL/min/1.73m 2 [facility] Glucose [Mass/Vol] 113 mg/dL High 74-106 [facility] Potassium [Moles/Vol] 4.0 mmol/L 3.5-5.1 [facility] Sodium [Moles/Vol] 138 mmol/L 136-145 [facility] Urea nitrogen [Mass/Vol] 10.0 mg/dL 7.0-18.0 [facility] Urea nitrogen/Creatinine [Mass ratio] 8.3 mg/mg [facility] Laboratory - Hematology and Cell countson 08-29-2024 Immature granulocytes/100 WBC (Bld) 0.4 % 0.0-0.5 [facility] Leukocytes [#/volume] correc camilo for nucleated erythrocytes in Blood by Automated counon 08-29-2024 WBC corrected for nucl RBC Auto (Bld) [#/Vol] Leukocytes [#/volume] corrected for nucleated erythrocytes in Blood by Automated coun High 4.0-11.0 [facility] Lymphocytes Auto (Bld) [#/Vo l]on 08-29-2024 Lymphocytes (Bld) [#/Vol] Lymphocytes [#/volume] in Blood by Automated count 1.2-3.8 [facility] Lymphocytes/100 WBC Auto (Bl d)on 08-29-2024 Lymphocytes/100 WBC (Bld) Lymphocytes/100 leukocytes in Blood by Automated count Low 20.5-60.0 [facility] MCH Auto (RBC) [Entitic mass ]on 08-29-2024 MCH (RBC) [Entitic mass] MCH [Entitic mass] by Automated count Low 25.9-34.0 [facility] MCHC Auto (RBC) [Mass/Vol]on 08-29-2024 MCHC (RBC) [Mass/Vol] MCHC [Mass/volume] by Automated count 29.9-35.2 [facility] MCV Auto (RBC) [Entitic vol] on 08-29-2024 MCV (RBC) [Entitic vol] MCV [Entitic volume] by Automated count Low 80.0-94.0 [facility] Monocytes Auto (Bld) [#/Vol] on 08-29-2024 Monocytes (Bld) [#/Vol] Automated blood monocyte count 0.3-0.8 [facility] Monocytes/100 WBC Auto (Bld) on 08-29-2024 Monocytes/100 WBC (Bld) Automated monocyte % 1.7-12.0 [facility] Neutrophils Auto (Bld) [#/Vo l]on 08-29-2024 Neutrophils (Bld) [#/Vol] Neutrophils [#/volume] in Blood by Automated count High 1.4-6.5 [facility] Neutrophils/100 WBC Auto (Bl d)on 08-29-2024 Neutrophils/100 WBC (Bld) Automated neutrophil % High 43.0-75.0 [facility] No Panel Informationon 08-29 Eosinophils # (Auto) 0.1 10 3/uL 0.0-0.7 [facility] Immature Granulocyte # (Auto) 0.05 10 3/uL High 0.00-0.03 [facility] Platelet mean volume Auto (B ld) [Entitic vol]on 08-29-2024 Platelet mean volume (Bld) [Entitic vol] Platelet mean volume [Entitic volume] in Blood by Automated count 9.5-13.5 [facility] Platelets Auto (Bld) [#/Vol] on 08-29-2024 Platelets (Bld) [#/Vol] Platelets [#/volume] in Blood by Automated count 150-450 [facility] RBC Auto (Bld) [#/Vol]on RBC (Bld) [#/Vol] Erythrocytes [#/volume] in Blood by Automated count 4.70-6.10 [facility] Serum or plasma anion gap de terminationon 08-29-2024 Anion gap [Moles/Vol] Serum or plasma anion gap determination [facility] Consulton 08-07-2024 Consult [id number] Prosper Milian 1975 M Date Provider Department Center 08/07/2024 [facility] SURG [place] Family History Problem Relation Age of Onset Cancer Father Cancer Paternal Grandfather Family Status - Relation Status Age at Father Paternal Grandfather Level of Service:13692 [place] OFFICE/OP CONSLTJ NEW/EST PT MOD MDM 40 MINUTES Reason for Visit and Comments: Consult [484] [facility] NM beba perf SPECT rest stron 07-10-2024 NM beba perf SPECT rest str [facility] [place] [address] Nuclear Medicine Report Signed Patient: Prosper Milian MR#: [id number] 6 : 1975 Acct:[id number] Age/Sex: 48 / M ADM Date: 07/09/24 Loc: Room: Type: [facility] Attending Dr: Chantal Mart MD Copies to: [...] Evelyn Macdonald M.D.07/10/2024 2:38 PM Dictation Location: [place] [address] Transcribed By: REBA 07/10/24 1438 Dictated By: Evelyn Macdonald MD 07/10/24 1435 Signed By: 07/10/24 1438 [facility] XR PELVIS 3+ VIEWSon 024 XR PELVIS 3+ VIEWS Interpreted By: Cesar Solomon, STUDY: XR PELVIS 3+ VIEWS; ; 05/23/2024 1:18 pm INDICATION: Signs/Symptoms:pelvi s fracture. ,R10.2 Pelvic and perineal pain COMPARISON: 02/29/2024 ACCESSION NUMBER(S): [id number] ORDERING CLINICIAN: ADAM NAVARRO FINDINGS: Pelvis, five views Postsurgical changes in the pelvis with screw fixation through the sacrum and the plate and screw fixation of the pubic symphysis. No acute fracture seen. Mild degenerative change of the hips IMPRESSION: Postsurgical change about the pelvis without hardware failure. MACRO: None Signed by: Cesar Solomon 05/24/2024 7:08 AM Dictation workstation: [id number] [facility] Comment on above: Order Comment: 5 vie w of the pelvis XR PELVIS 3+ VIEWSon 024 XR PELVIS 3+ VIEWS Interpreted By: Cesar Solomon, STUDY: XR PELVIS 3+ VIEWS; ; 02/29/2024 12:59 pm INDICATION: Signs/Symptoms:pelvi s fracture. COMPARISON: 02/01/2020 ACCESSION NUMBER(S): [id number] ORDERING CLINICIAN: ADAM NAVARRO FINDINGS: Pelvis, five views Postsurgical changes in the sacrum and the pubic symphysis with screws and plate and screw fixation respectively. The hardware is intact. There is no malalignment. No significant degenerative changes IMPRESSION: Postsurgical change in the pelvis with intact hardware. No malalignment seen MACRO: None Signed by: Cesar Solomon 03/01/2024 6:55 PM Dictation workstation: [id number] [facility] Comment on above: Order Comment: 5 vie w of the pelvis XR PELVIS 3+ VIEWSon 024 XR PELVIS 3+ VIEWS Interpreted By: Sushma Black, STUDY: Pelvis, 5 views. INDICATION: Signs/Symptoms:pelvi s fracture. COMPARISON: 12/28/2023. ACCESSION NUMBER(S): [id number] ORDERING CLINICIAN: ADAM NAVARRO FINDINGS: No acute [...] Sushma Black 02/02/2024 7:24 PM Dictation workstation: [id number] [facility] Comment on above: Order Comment: 5 vie w of the pelvis XR PELVIS 3+ VIEWSon 024 XR PELVIS 3+ VIEWS Interpreted By: Caryn Norman, STUDY: XR PELVIS 3+ VIEWS; ; 12/28/2023 12:54 pm INDICATION: Signs/Symptoms:pain. COMPARISON: Pelvis radiographs dated 12/08/2023. ACCESSION NUMBER(S): [id number] ORDERING CLINICIAN: ADAM NAVARRO FINDINGS: Extensive postsurgical [...] Caryn Norman 12/30/2023 12:52 PM Dictation workstation: [id number] [facility] Comment on above: Order Comment: 5v pe lvis (AP/inlet/outlet/Judet's) Basic metabolic 2000 panelon 12-14-2023 Anion gap [Moles/Vol] 12 mmol/L 10 - 2 0 mmol/L [facility] Calcium [Mass/Vol] 8.3 mg/dL Low 8.6 - 10. 6 mg/dL [facility] Chloride [Moles/Vol] 103 mmol/L 98 - 10 7 mmol/L [facility] CO2 [Moles/Vol] 27 mmol/L 21 - 32 mmol/L [facility] Creatinine [Mass/Vol] 0.82 mg/dL 0.50 - 1.30 mg/dL [facility] eGFR - PINF [facility] Comment on above: Calculations of cris mated GFR are performed using the 2020 CKD-EPI Study Refit equation without the race variable for the IDMS-Traceable creatinine methods. https://jasn.asnjournals.org/content//ASN.46842 20460 Glucose [Mass/Vol] 103 mg/dL High 74 - 99 mg/dL [facility] Interpretation and review of laboratory results Abnormal [facility] Potassium [Moles/Vol] 3.6 mmol/L 3.5 - 5.3 mmol/L [facility] Sodium [Moles/Vol] 138 mmol/L 136 - 145 mmol/L [facility] Urea nitrogen [Mass/Vol] 14 mg/dL 6 - 23 mg/dL [facility] Anion gap [Moles/Vol] 12 mmol/L Normal 10-20 [facility] Comment on above: Performed By: #### 2 4321-2 ####ANASTACIO HAMMTZSABINE L ([id number])[facility] ([facility])[address] [place] [address] Calcium [Mass/Vol] 8.3 mg/dL Low 8.6-10.6 [facility] Comment on above: Performed By: #### 2 4321-2 ####ANASTACIO KENNYMOTZER L ([id number])[facility] ([facility])[address] [place] [address] Chloride [Moles/Vol] 103 mmol/L Normal 98-107 [facility] Comment on above: Performed By: #### 2 4321-2 ####ANASTACIO KENNYMOTZER L ([id number])[facility] ([facility])[address] [place] [address] CO2 [Moles/Vol] 27 mmol/L Normal 21-32 [facility] Comment on above: Performed By: #### 2 4321-2 ####ANASTACIO WOOD L ([id number])[facility] ([facility])[address] [place] [address] Creatinine [Mass/Vol] 0.82 mg/dL Normal 0.50-1.30 [facility] Comment on above: Performed By: #### 2 4321-2 ####ANASTACIO Hodge ([id number])[facility] ([facility])[address] [place] [address] GFR/1.73 sq M.predicted MDRD (S/P/Bld) [Vol rate/Area] mL/min/{1.73_m2} Normal >60 [facility] Comment on above: Result Comment: Calc ulations of estimated GFR are performed using the 2020 CKD-EPI Study Refit equation without the race variable for the IDMS-Traceable creatinine methods. https://jasn.asnjournals.org/content//ASN.66975 28302 Performed By: #### 2 4321-2 ####ANASTACIO Hodge ([id number])[facility] ([facility])[address] [place] [address] Glucose [Mass/Vol] 103 mg/dL High 74-99 [facility] Comment on above: Performed By: #### 2 4321-2 ####ANASTACIO WOOD L ([id number])[facility] ([facility])[address] [place] [address] Potassium [Moles/Vol] 3.6 mmol/L Normal 3.5-5.3 [facility] Comment on above: Performed By: #### 2 4321-2 ####ANASTACIO WOOD L ([id number])[facility] ([facility])[address] [place] [address] Sodium [Moles/Vol] 138 mmol/L Normal 136-145 [facility] Comment on above: Performed By: #### 2 4321-2 ####ANASTACIO WOOD L ([id number])[facility] ([facility])[address] [place] [address] Urea nitrogen [Mass/Vol] 14 mg/dL Normal 6-23 [facility] Comment on above: Performed By: #### 2 4321-2 ####ANASTACIO Hodge ([id number])[facility] ([facility])[address] [place] [address] CBC W Auto Differential pane l (Bld)on 12-14-2023 Basophils (Bld) [#/Vol] 0.05 10*3/uL [facility] Basophils/100 WBC (Bld) 0.6 % 0.0 - 2.0 % [facility] Eosinophils (Bld) [#/Vol] 0.30 10*3/uL [facility] Eosinophils/100 WBC (Bld) 3.3 % 0.0 - 6.0 % [facility] Erythrocyte distribution width (RBC) [Ratio] 13.1 % 11.5 - 14.5 % [facility] Hematocrit (Bld) [Volume fraction] 32.7 % Low 41.0 - 52.0 % [facility] Hemoglobin (Bld) [Mass/Vol] 10.8 g/dL Low 13.5 - 17.5 g/dL [facility] Immature granulocytes (Bld) [#/Vol] 0.13 10*3/uL [facility] Immature granulocytes/100 WBC (Bld) 1.4 % High 0.0 - 0.9 % [facility] Comment on above: Immature Granulocyte Count (IG) includes promyelocytes, myelocytes and metamyelocytes but does not include bands. Percent differential counts (%) should be interpreted in the context of the absolute cell counts (cells/UL). Interpretation and review of laboratory results Abnormal [facility] Lymphocytes (Bld) [#/Vol] 1.61 10*3/uL [facility] Lymphocytes/100 WBC (Bld) 17.8 % 13.0 - 44.0 % [facility] MCH (RBC) [Entitic mass] 28.1 pg 26.0 - 34.0 pg [facility] MCHC (RBC) [Mass/Vol] 33.0 g/dL 32.0 - 36.0 g/dL [facility] MCV (RBC) [Entitic vol] 85 fL 80 - 100 fL [facility] Monocytes (Bld) [#/Vol] 0.71 10*3/uL [facility] Monocytes/100 WBC (Bld) 7.8 % 2.0 - 10.0 % [facility] Neutrophils (Bld) [#/Vol] 6.25 10*3/uL [facility] Comment on above: Percent differential counts (%) should be interpreted in the context of the absolute cell counts (cells/uL). Neutrophils/100 WBC (Bld) 69.1 % 40.0 - 80.0 % [facility] Nucleated RBC/100 WBC (Bld) [Ratio] 0.0 % [facility] Platelets (Bld) [#/Vol] 280 10*3/uL [facility] RBC (Bld) [#/Vol] 3.85 10*6/uL Low [facility] WBC (Bld) [#/Vol] 9.1 10*3/uL [facility] Basophils (Bld) [#/Vol] 0.05 x10*3/uL Normal 0.00-0.10 [facility] Comment on above: Performed By: #### 5 7021-8 ####ANASTACIO WOOD L ([id number])[facility] ([facility])[address] [place] [address] Basophils/100 WBC (Bld) 0.6 % Normal 0.0-2.0 [facility] Comment on above: Performed By: #### 5 7021-8 ####ANASTACIO KENNYMOTZER L ([id number])[facility] ([facility])[address] [place] [address] Eosinophils (Bld) [#/Vol] 0.30 x10*3/uL Normal 0.00-0.70 [facility] Comment on above: Performed By: #### 5 7021-8 ####ANASTACIO KENNYMOTZER L ([id number])[facility] ([facility])[address] [place] [address] Eosinophils/100 WBC (Bld) 3.3 % Normal 0.0-6.0 [facility] Comment on above: Performed By: #### 5 7021-8 ####ANASTACIO KENNYMOTZSABINE L ([id number])[facility] ([facility])[address] [place] [address] Erythrocyte distribution width (RBC) [Ratio] 13.1 % Normal 11.5-14.5 [facility] Comment on above: Performed By: #### 5 7021-8 ####ANASTACIO Hodge ([id number])[facility] ([facility])[address] [place] [address] Hematocrit (Bld) [Volume fraction] 32.7 % Low 41.0-52.0 [facility] Comment on above: Performed By: #### 5 7021-8 ####ANASTACIO Hodge ([id number])[facility] ([facility])[address] [place] [address] Hemoglobin (Bld) [Mass/Vol] 10.8 g/dL Low 13.5-17.5 [facility] Comment on above: Performed By: #### 5 7021-8 ####ANASTACIO Hodge ([id number])[facility] ([facility])[address] [place] [address] Immature granulocytes (Bld) [#/Vol] 0.13 x10*3/uL Normal 0.00-0.70 [facility] Comment on above: Performed By: #### 5 7021-8 ####ANASTACIO Hodge ([id number])[facility] ([facility])[address] [place] [address] Immature granulocytes/100 WBC (Bld) 1.4 % High 0.0-0.9 [facility] Comment on above: Result Comment: Brittany ture Granulocyte Count (IG) includes promyelocytes, myelocytes and metamyelocytes but does not include bands. Percent differential counts (%) should be interpreted in the context of the absolute cell counts (cells/UL). Performed By: #### 5 7021-8 ####ANASTACIO Hodge ([id number])[facility] ([facility])[address] [place] [address] Lymphocytes (Bld) [#/Vol] 1.61 x10*3/uL Normal 1.20-4.80 [facility] Comment on above: Performed By: #### 5 7021-8 ####ANASTACIO Hodge ([id number])[facility] ([facility])[address] [place] [address] Lymphocytes/100 WBC (Bld) 17.8 % Normal 13.0-44.0 [facility] Comment on above: Performed By: #### 5 7021-8 ####ANASTACIO WOOD L ([id number])[facility] ([facility])[address] [place] [address] MCH (RBC) [Entitic mass] 28.1 pg Normal 26.0-34.0 [facility] Comment on above: Performed By: #### 5 7021-8 ####ANASTACIO Hodge ([id number])[facility] ([facility])[address] [place] [address] MCHC (RBC) [Mass/Vol] 33.0 g/dL Normal 32.0-36.0 [facility] Comment on above: Performed By: #### 5 7021-8 ####ANASTACIO WOOD L ([id number])[facility] ([facility])[address] [place] [address] MCV (RBC) [Entitic vol] 85 fL Normal 80-100 [facility] Comment on above: Performed By: #### 5 7021-8 ####ANASTACIO WOOD L ([id number])[facility] ([facility])[address] [place] [address] Monocytes (Bld) [#/Vol] 0.71 x10*3/uL Normal 0.10-1.00 [facility] Comment on above: Performed By: #### 5 7021-8 ####ANASTACIO WOOD L ([id number])[facility] ([facility])[address] [place] [address] Monocytes/100 WBC (Bld) 7.8 % Normal 2.0-10.0 [facility] Comment on above: Performed By: #### 5 7021-8 ####ANASTACIO Hodge ([id number])[facility] ([facility])[address] [place] [address] Neutrophils (Bld) [#/Vol] 6.25 x10*3/uL Normal 1.20-7.70 [facility] Comment on above: Result Comment: Perc ent differential counts (%) should be interpreted in the context of the absolute cell counts (cells/uL). Performed By: #### 5 7021-8 ####ANASTACIO WOOD L ([id number])[facility] ([facility])[address] [place] [address] Neutrophils/100 WBC (Bld) 69.1 % Normal 40.0-80.0 [facility] Comment on above: Performed By: #### 5 7021-8 ####ANASTACIO WOOD L ([id number])[facility] ([facility])[address] [place] [address] Nucleated RBC/100 WBC (Bld) [Ratio] 0.0 /100 WBCs Normal 0.0-0.0 [facility] Comment on above: Performed By: #### 5 7021-8 ####ANASTACIO KENNYMOTZER L ([id number])[facility] ([facility])[address] [place] [address] Platelets (Bld) [#/Vol] 280 x10*3/uL Normal 150-450 [facility] Comment on above: Performed By: #### 5 7021-8 ####ANASTACIO KENNYMOTZER L ([id number])[facility] ([facility])[address] [place] [address] RBC (Bld) [#/Vol] 3.85 x10*6/uL Low 4.50-5.90 [facility] Comment on above: Performed By: #### 5 7021-8 ####ANASTACIO SCHMOTZER L ([id number])[facility] ([facility])[address] [place] [address] WBC (Bld) [#/Vol] 9.1 x10*3/uL Normal 4.4-11.3 [facility] Comment on above: Performed By: #### 5 7021-8 ####ANASTACIO NINA Hodge ([id number])[facility] ([facility])[id number] [place], [place] [address] Electrocardiogram, 12-lead P RN ACS symptomsOrdered By: Dustin Lyman on 12-14-2023 Atrial Rate 104 BPM [facility] Work Phone: [phone] P [place] 43 degrees [facility] Work Phone: [phone] P Offset 196 ms [facility] Work Phone: P Onset 139 ms [facility] Work Phone: [phone] CA Interval 154 ms [facility] Work Phone: [phone] Q Onset 216 ms [facility] Work Phone: [phone] QRS Count 17 beats [facility] Work Phone: [phone] QRS Duration 94 ms [facility] Work Phone: [phone] QT Interval 346 ms [facility] Work Phone: QTC Calculation(Bazett) 454 ms [facility] Work Phone: [phone] QTC Fredericia 415 ms [facility] Work Phone: [phone] R [place] 9 degrees [facility] Work Phone: [phone] T [place] 27 degrees [facility] Work Phone: [phone] T Offset 389 ms [facility] Work Phone: [phone] Ventricular Rate 104 BPM [facility] Work Phone: [phone] [facility] Work Phone: [phone] Electrocardiogram, 12-lead P RN ACS symptomson 12-14-2023 Sinus tachycardia Minimal voltage criteria for LVH, may be normal variant Borderline ECG No previous ECGs available Confirmed by Dustin Lyman ([id number]) on 12/14/2023 2:58:33 PM MUSE Dustin Lyman MD - 12/14/2023 Sinus tachycardia Minimal voltage criteria for LVH, may be normal variant Borderline ECG No previous ECGs available Confirmed by Dustin Lyman ([id number]) on 12/14/2023 2:58:33 PM [facility] Work Phone: Magnesiumon 12-14-2023 Magnesium [Mass/Vol] 2.11 mg/dL 1.60 - 2.40 mg/dL [facility] Magnesium [Mass/Vol] 2.11 mg/dL Normal 1.60-2.40 [facility] Comment on above: Performed By: #### 1 9123-9 ####ANASTACIO Hodge ([id number])[facility] ([facility])[address] [place] [address] Magnesium [Mass/Vol]on 12-13 Interpretation and review of laboratory results Normal [facility] No Panel Informationon 12-13 [facility] Basic metabolic 2000 panelon 12-13-2023 Anion gap [Moles/Vol] 13 mmol/L 10 - 2 0 mmol/L [facility] Calcium [Mass/Vol] 8.5 mg/dL Low 8.6 - 10. 6 mg/dL [facility] Chloride [Moles/Vol] 100 mmol/L 98 - 10 7 mmol/L [facility] CO2 [Moles/Vol] 28 mmol/L 21 - 32 mmol/L [facility] Creatinine [Mass/Vol] 0.92 mg/dL 0.50 - 1.30 mg/dL [facility] eGFR - PINF [facility] Comment on above: Calculations of cris mated GFR are performed using the 2020 CKD-EPI Study Refit equation without the race variable for the IDMS-Traceable creatinine methods. https://jasn.asnjournals.org/content//ASN.46535 39742 Glucose [Mass/Vol] 101 mg/dL High 74 - 99 mg/dL [facility] Interpretation and review of laboratory results Abnormal [facility] Potassium [Moles/Vol] 3.9 mmol/L 3.5 - 5.3 mmol/L [facility] Sodium [Moles/Vol] 137 mmol/L 136 - 145 mmol/L [facility] Urea nitrogen [Mass/Vol] 16 mg/dL 6 - 23 mg/dL [facility] Anion gap [Moles/Vol] 13 mmol/L Normal 10-20 [facility] Comment on above: Performed By: #### 2 4321-2 ####ANASTACIO Hodge ([id number])[facility] ([facility])[address] [place] [address] Calcium [Mass/Vol] 8.5 mg/dL Low 8.6-10.6 [facility] Comment on above: Performed By: #### 2 4321-2 ####ANASTACIO WOOD L ([id number])[facility] ([facility])[address] [place] [address] Chloride [Moles/Vol] 100 mmol/L Normal 98-107 [facility] Comment on above: Performed By: #### 2 4321-2 ####ANASTACIO WOOD L ([id number])[facility] ([facility])[address] [place] [address] CO2 [Moles/Vol] 28 mmol/L Normal 21-32 [facility] Comment on above: Performed By: #### 2 4321-2 ####ANASTACIO WOOD L ([id number])[facility] ([facility])[address] [place] [address] Creatinine [Mass/Vol] 0.92 mg/dL Normal 0.50-1.30 [facility] Comment on above: Performed By: #### 2 4321-2 ####ANASTACIO WOOD L ([id number])[facility] ([facility])[address] [place] [address] GFR/1.73 sq M.predicted MDRD (S/P/Bld) [Vol rate/Area] mL/min/{1.73_m2} Normal >60 [facility] Comment on above: Result Comment: Calc ulations of estimated GFR are performed using the 2020 CKD-EPI Study Refit equation without the race variable for the IDMS-Traceable creatinine methods. https://jasn.asnjournals.org/content//ASN.65547 27179 Performed By: #### 2 4321-2 ####ANASTACIO Hodge ([id number])[facility] ([facility])[address] [place] [address] Glucose [Mass/Vol] 101 mg/dL High 74-99 [facility] Comment on above: Performed By: #### 2 4321-2 ####ANASTACIO Hodge ([id number])[facility] ([facility])[address] [place] [address] Potassium [Moles/Vol] 3.9 mmol/L Normal 3.5-5.3 [facility] Comment on above: Performed By: #### 2 4321-2 ####ANASTACIO Hodge ([id number])[facility] ([facility])[address] [place] [address] Sodium [Moles/Vol] 137 mmol/L Normal 136-145 [facility] Comment on above: Performed By: #### 2 4321-2 ####ANASTACIO Hodge ([id number])[facility] ([facility])[address] [place] [address] Urea nitrogen [Mass/Vol] 16 mg/dL Normal 6-23 [facility] Comment on above: Performed By: #### 2 4321-2 ####ANASTACIO Hodge ([id number])[facility] ([facility])[address] [place] [address]60 CBC W Auto Differential pane l (Bld)on 12-13-2023 Basophils (Bld) [#/Vol] 0.06 10*3/uL [facility] Basophils/100 WBC (Bld) 0.5 % 0.0 - 2.0 % [facility] Eosinophils (Bld) [#/Vol] 0.40 10*3/uL [facility] Eosinophils/100 WBC (Bld) 3.4 % 0.0 - 6.0 % [facility] Erythrocyte distribution width (RBC) [Ratio] 13.1 % 11.5 - 14.5 % [facility] Hematocrit (Bld) [Volume fraction] 36.4 % Low 41.0 - 52.0 % [facility] Hemoglobin (Bld) [Mass/Vol] 12.0 g/dL Low 13.5 - 17.5 g/dL [facility] Immature granulocytes (Bld) [#/Vol] 0.17 10*3/uL [facility] Immature granulocytes/100 WBC (Bld) 1.4 % High 0.0 - 0.9 % [facility] Comment on above: Immature Granulocyte Count (IG) includes promyelocytes, myelocytes and metamyelocytes but does not include bands. Percent differential counts (%) should be interpreted in the context of the absolute cell counts (cells/UL). Interpretation and review of laboratory results Abnormal [facility] Lymphocytes (Bld) [#/Vol] 2.07 10*3/uL [facility] Lymphocytes/100 WBC (Bld) 17.5 % 13.0 - 44.0 % [facility] MCH (RBC) [Entitic mass] 28.1 pg 26.0 - 34.0 pg [facility] MCHC (RBC) [Mass/Vol] 33.0 g/dL 32.0 - 36.0 g/dL [facility] MCV (RBC) [Entitic vol] 85 fL 80 - 100 fL [facility] Monocytes (Bld) [#/Vol] 0.87 10*3/uL [facility] Monocytes/100 WBC (Bld) 7.3 % 2.0 - 10.0 % [facility] Neutrophils (Bld) [#/Vol] 8.28 10*3/uL High [facility] Comment on above: Percent differential counts (%) should be interpreted in the context of the absolute cell counts (cells/uL). Neutrophils/100 WBC (Bld) 69.9 % 40.0 - 80.0 % [facility] Nucleated RBC/100 WBC (Bld) [Ratio] 0.0 % [facility] Platelets (Bld) [#/Vol] 307 10*3/uL [facility] RBC (Bld) [#/Vol] 4.27 10*6/uL Low [facility] WBC (Bld) [#/Vol] 11.9 10*3/uL High [facility] Basophils (Bld) [#/Vol] 0.06 x10*3/uL Normal 0.00-0.10 [facility] Comment on above: Performed By: #### 5 7021-8 ####ANASTACIO Hodge ([id number])[facility] ([facility])[id number] [place] [address] Basophils/100 WBC (Bld) 0.5 % Normal 0.0-2.0 [facility] Comment on above: Performed By: #### 5 7021-8 ####ANASTACIO WOOD L ([id number])[facility] ([facility])[address] [place] [address] Eosinophils (Bld) [#/Vol] 0.40 x10*3/uL Normal 0.00-0.70 [facility] Comment on above: Performed By: #### 5 7021-8 ####ANASTACIO KENNYMODEBI L ([id number])[facility] ([facility])[address] [place] [address] Eosinophils/100 WBC (Bld) 3.4 % Normal 0.0-6.0 [facility] Comment on above: Performed By: #### 5 7021-8 ####ANASTACIO WOOD L ([id number])[facility] ([facility])[address] [place] [address] Erythrocyte distribution width (RBC) [Ratio] 13.1 % Normal 11.5-14.5 [facility] Comment on above: Performed By: #### 5 7021-8 ####ANASTACIO WOOD L ([id number])[facility] ([facility])[address] [place] [address] Hematocrit (Bld) [Volume fraction] 36.4 % Low 41.0-52.0 [facility] Comment on above: Performed By: #### 5 7021-8 ####ANASTACIO WOOD L ([id number])[facility] ([facility])[address] [place] [address] Hemoglobin (Bld) [Mass/Vol] 12.0 g/dL Low 13.5-17.5 [facility] Comment on above: Performed By: #### 5 7021-8 ####ANASTACIO Hodge ([id number])[facility] ([facility])[address] [place] [address] Immature granulocytes (Bld) [#/Vol] 0.17 x10*3/uL Normal 0.00-0.70 [facility] Comment on above: Performed By: #### 5 7021-8 ####ANASTACIO Hodge ([id number])[facility] ([facility])[address] [place] [address] Immature granulocytes/100 WBC (Bld) 1.4 % High 0.0-0.9 [facility] Comment on above: Result Comment: Brittany ture Granulocyte Count (IG) includes promyelocytes, myelocytes and metamyelocytes but does not include bands. Percent differential counts (%) should be interpreted in the context of the absolute cell counts (cells/UL). Performed By: #### 5 7021-8 ####ANASTACIO Hodge ([id number])[facility] ([facility])[address] [place] [address] Lymphocytes (Bld) [#/Vol] 2.07 x10*3/uL Normal 1.20-4.80 [facility] Comment on above: Performed By: #### 5 7021-8 ####ANASTACIO Hodge ([id number])[facility] ([facility])[address] [place] [address] Lymphocytes/100 WBC (Bld) 17.5 % Normal 13.0-44.0 [facility] Comment on above: Performed By: #### 5 7021-8 ####ANASTACIO Hodge ([id number])[facility] ([facility])[address] [place] [address] MCH (RBC) [Entitic mass] 28.1 pg Normal 26.0-34.0 [facility] Comment on above: Performed By: #### 5 7021-8 ####ANASTACIO Hodge ([id number])[facility] ([facility])[address] [place] [address] MCHC (RBC) [Mass/Vol] 33.0 g/dL Normal 32.0-36.0 [facility] Comment on above: Performed By: #### 5 7021-8 ####ANASTACIO WOOD L ([id number])[facility] ([facility])[address] [place] [address] MCV (RBC) [Entitic vol] 85 fL Normal 80-100 [facility] Comment on above: Performed By: #### 5 7021-8 ####ANASTACIO Hodge ([id number])[facility] ([facility])[address] [place] [address] Monocytes (Bld) [#/Vol] 0.87 x10*3/uL Normal 0.10-1.00 [facility] Comment on above: Performed By: #### 5 7021-8 ####ANASTACIO Hodge ([id number])[facility] ([facility])[address] [place] [address] Monocytes/100 WBC (Bld) 7.3 % Normal 2.0-10.0 [facility] Comment on above: Performed By: #### 5 7021-8 ####ANASTACIO KENNYMODEBI L ([id number])[facility] ([facility])[address] [place] [address] Neutrophils (Bld) [#/Vol] 8.28 x10*3/uL High 1.20-7.70 [facility] Comment on above: Result Comment: Perc ent differential counts (%) should be interpreted in the context of the absolute cell counts (cells/uL). Performed By: #### 5 7021-8 ####ANASTACIO KENNYMOTZSABINE L ([id number])[facility] ([facility])[address] [place] [address] Neutrophils/100 WBC (Bld) 69.9 % Normal 40.0-80.0 [facility] Comment on above: Performed By: #### 5 7021-8 ####ANASTACIO Hodge ([id number])[facility] ([facility])[address] [place] [address] 64181 Nucleated RBC/100 WBC (Bld) [Ratio] 0.0 /100 WBCs Normal 0.0-0.0 [facility] Comment on above: Performed By: #### 5 7021-8 ####ANASTACIO Hodge ([id number])[facility] ([facility])[address] [place] [address] Platelets (Bld) [#/Vol] 307 x10*3/uL Normal 150-450 [facility] Comment on above: Performed By: #### 5 7021-8 ####ANASTACIO Hodge ([id number])[facility] ([facility])[address] [place] [address]43 RBC (Bld) [#/Vol] 4.27 x10*6/uL Low 4.50-5.90 [facility] Comment on above: Performed By: #### 5 7021-8 ####ANASTACIO Hodge ([id number])[facility] ([facility])[address] [place] [address] 64045 WBC (Bld) [#/Vol] 11.9 x10*3/uL High 4.4-11.3 [facility] Comment on above: Performed By: #### 5 7021-8 ####ANASTACIO Hodge ([id number])[facility] ([facility])[address] [place] [address]15 Magnesiumon 12-13-2023 Magnesium [Mass/Vol] 2.12 mg/dL 1.60 - 2.40 mg/dL [facility] Magnesium [Mass/Vol] 2.12 mg/dL Normal 1.60-2.40 [facility] Comment on above: Performed By: #### 1 9123-9 ####ANASTACIO Hodge ([id number])[facility] ([facility])[address] [place] [address] Magnesium [Mass/Vol]on 12-12 Interpretation and review of laboratory results Normal [facility] No Panel Informationon 12-12 [facility] Basic metabolic 2000 panelon 12-12-2023 Anion gap [Moles/Vol] 14 mmol/L 10 - 2 0 mmol/L [facility] Calcium [Mass/Vol] 7.8 mg/dL Low 8.6 - 10. 6 mg/dL [facility] Chloride [Moles/Vol] 103 mmol/L 98 - 10 7 mmol/L [facility] CO2 [Moles/Vol] 25 mmol/L 21 - 32 mmol/L [facility] Creatinine [Mass/Vol] 0.87 mg/dL 0.50 - 1.30 mg/dL [facility] eGFR - PINF [facility] Comment on above: Calculations of cris mated GFR are performed using the 2020 CKD-EPI Study Refit equation without the race variable for the IDMS-Traceable creatinine methods. https://jasn.asnjournals.org/content/early//ASN.09961 60431 Glucose [Mass/Vol] 89 mg/dL 74 - 99 mg/dL [facility] Interpretation and review of laboratory results Abnormal [facility] Potassium [Moles/Vol] 3.4 mmol/L Low 3.5 - 5.3 mmol/L [facility] Sodium [Moles/Vol] 139 mmol/L 136 - 145 mmol/L [facility] Urea nitrogen [Mass/Vol] 14 mg/dL 6 - 23 mg/dL [facility] Anion gap [Moles/Vol] 14 mmol/L Normal 10-20 [facility] Comment on above: Performed By: #### 2 4321-2 ####ANASTACIO Hodge ([id number])[facility] ([facility])[address] [place] [address]33 Calcium [Mass/Vol] 7.8 mg/dL Low 8.6-10.6 [facility] Comment on above: Performed By: #### 2 4321-2 ####ANASTACIO Hodge ([id number])[facility] ([facility])[address] [place] [address] Chloride [Moles/Vol] 103 mmol/L Normal 98-107 [facility] Comment on above: Performed By: #### 2 4321-2 ####ANASTACIO Hodge ([id number])[facility] ([facility])[address] [place] [address] CO2 [Moles/Vol] 25 mmol/L Normal 21-32 [facility] Comment on above: Performed By: #### 2 4321-2 ####ANASTACIO Hodge ([id number])[facility] ([facility])[address] [place] [address] Creatinine [Mass/Vol] 0.87 mg/dL Normal 0.50-1.30 [facility] Comment on above: Performed By: #### 2 4321-2 ####ANASTACIO Hodge ([id number])[facility] ([facility])[address] [place] [address] GFR/1.73 sq M.predicted MDRD (S/P/Bld) [Vol rate/Area] mL/min/{1.73_m2} Normal >60 [facility] Comment on above: Result Comment: Calc ulations of estimated GFR are performed using the 2020 CKD-EPI Study Refit equation without the race variable for the IDMS-Traceable creatinine methods. https://jasn.asnjournals.org/content//ASN.88981 42496 Performed By: #### 2 4321-2 ####ANASTACIO Hodge ([id number])[facility] ([facility])[address] [place] [address] Glucose [Mass/Vol] 89 mg/dL Normal 74-99 [facility] Comment on above: Performed By: #### 2 4321-2 ####ANASTACIO Hodge ([id number])[facility] ([facility])[address] [place] [address] Potassium [Moles/Vol] 3.4 mmol/L Low 3.5-5.3 [facility] Comment on above: Performed By: #### 2 4321-2 ####ANASTACIO Hodge ([id number])[facility] ([facility])[address] [place] [address] Sodium [Moles/Vol] 139 mmol/L Normal 136-145 [facility] Comment on above: Performed By: #### 2 4321-2 ####ANASTACIO Hodge ([id number])[facility] ([facility])[address] [place] [address] Urea nitrogen [Mass/Vol] 14 mg/dL Normal 6-23 [facility] Comment on above: Performed By: #### 2 4321-2 ####ANASTACIO Hodge ([id number])[facility] ([facility])[address] [place] [address] CBC W Auto Differential pane l (Bld)on 12-12-2023 Basophils (Bld) [#/Vol] 0.07 10*3/uL [facility] Basophils/100 WBC (Bld) 0.5 % 0.0 - 2.0 % [facility] Eosinophils (Bld) [#/Vol] 0.26 10*3/uL [facility] Eosinophils/100 WBC (Bld) 2.0 % 0.0 - 6.0 % [facility] Erythrocyte distribution width (RBC) [Ratio] 12.8 % 11.5 - 14.5 % [facility] Hematocrit (Bld) [Volume fraction] 34.8 % Low 41.0 - 52.0 % [facility] Hemoglobin (Bld) [Mass/Vol] 11.8 g/dL Low 13.5 - 17.5 g/dL [facility] Immature granulocytes (Bld) [#/Vol] 0.10 10*3/uL [facility] Immature granulocytes/100 WBC (Bld) 0.8 % 0.0 - 0.9 % [facility] Comment on above: Immature Granulocyte Count (IG) includes promyelocytes, myelocytes and metamyelocytes but does not include bands. Percent differential counts (%) should be interpreted in the context of the absolute cell counts (cells/UL). Interpretation and review of laboratory results Abnormal [facility] Lymphocytes (Bld) [#/Vol] 1.93 10*3/uL [facility] Lymphocytes/100 WBC (Bld) 14.7 % 13.0 - 44.0 % [facility] MCH (RBC) [Entitic mass] 27.8 pg 26.0 - 34.0 pg [facility] MCHC (RBC) [Mass/Vol] 33.9 g/dL 32.0 - 36.0 g/dL [facility] MCV (RBC) [Entitic vol] 82 fL 80 - 100 fL [facility] Monocytes (Bld) [#/Vol] 1.09 10*3/uL High [facility] Monocytes/100 WBC (Bld) 8.3 % 2.0 - 10.0 % [facility] Neutrophils (Bld) [#/Vol] 9.66 10*3/uL High [facility] Comment on above: Percent differential counts (%) should be interpreted in the context of the absolute cell counts (cells/uL). Neutrophils/100 WBC (Bld) 73.7 % 40.0 - 80.0 % [facility] Nucleated RBC/100 WBC (Bld) [Ratio] 0.0 % [facility] Platelets (Bld) [#/Vol] 296 10*3/uL [facility] RBC (Bld) [#/Vol] 4.25 10*6/uL Low [facility] WBC (Bld) [#/Vol] 13.1 10*3/uL High [facility] Basophils (Bld) [#/Vol] 0.07 x10*3/uL Normal 0.00-0.10 [facility] Comment on above: Performed By: #### 5 7021-8 #### ANASTACIO Hodge ([id number]) [facility] ([facility]) [address] [place] [address] Basophils/100 WBC (Bld) 0.5 % Normal 0.0-2.0 [facility] Comment on above: Performed By: #### 5 7021-8 #### ANASTACIO Hodge ([id number]) [facility] ([facility]) [address] [place] [address] 60924 Eosinophils (Bld) [#/Vol] 0.26 x10*3/uL Normal 0.00-0.70 [facility] Comment on above: Performed By: #### 5 7021-8 #### ANASTACIO Hodge ([id number]) [facility] ([facility]) [address] [place] [address] 70554 Eosinophils/100 WBC (Bld) 2.0 % Normal 0.0-6.0 [facility] Comment on above: Performed By: #### 5 7021-8 #### ANASTACIO Hodge ([id number]) [facility] ([facility]) [address] [place] [address] 00711 Erythrocyte distribution width (RBC) [Ratio] 12.8 % Normal 11.5-14.5 [facility] Comment on above: Performed By: #### 5 7021-8 #### ANASTACIO Hodge ([id number]) [facility] ([facility]) [address] [place] [address] 14863 Hematocrit (Bld) [Volume fraction] 34.8 % Low 41.0-52.0 [facility] Comment on above: Performed By: #### 5 7021-8 #### ANASTACIO Hodge ([id number]) [facility] ([facility]) [address] [place] [address]113 Hemoglobin (Bld) [Mass/Vol] 11.8 g/dL Low 13.5-17.5 [facility] Comment on above: Performed By: #### 5 7021-8 #### ANASTACIO Hodge ([id number]) [facility] ([facility]) [address] [place] [address] 27636 Immature granulocytes (Bld) [#/Vol] 0.10 x10*3/uL Normal 0.00-0.70 [facility] Comment on above: Performed By: #### 5 7021-8 #### ANASTACIO Hodge ([id number]) [facility] ([facility]) [address] [place] [address] Immature granulocytes/100 WBC (Bld) 0.8 % Normal 0.0-0.9 [facility] Comment on above: Result Comment: Brittany ture Granulocyte Count (IG) includes promyelocytes, myelocytes and metamyelocytes but does not include bands. Percent differential counts (%) should be interpreted in the context of the absolute cell counts (cells/UL). Performed By: #### 5 7021-8 #### ANASTACIO Hodge ([id number]) [facility] ([facility]) [address] [place] [address] 09196 Lymphocytes (Bld) [#/Vol] 1.93 x10*3/uL Normal 1.20-4.80 [facility] Comment on above: Performed By: #### 5 7021-8 #### ANASTACIO Hodge ([id number]) [facility] ([facility]) [address] [place] [address] 94686 Lymphocytes/100 WBC (Bld) 14.7 % Normal 13.0-44.0 [facility] Comment on above: Performed By: #### 5 7021-8 #### ANASTACIO Hodge ([id number]) [facility] ([facility]) [address] [place] [address] 62993 MCH (RBC) [Entitic mass] 27.8 pg Normal 26.0-34.0 [facility] Comment on above: Performed By: #### 5 7021-8 #### ANASTACIO Hodge ([id number]) [facility] ([facility]) [address] [place] [address] 83263 MCHC (RBC) [Mass/Vol] 33.9 g/dL Normal 32.0-36.0 [facility] Comment on above: Performed By: #### 5 7021-8 #### ANASTACIO Hodge ([id number]) [facility] ([facility]) [address] [place] [address] MCV (RBC) [Entitic vol] 82 fL Normal 80-100 [facility] Comment on above: Performed By: #### 5 7021-8 #### ANASTACIO Hodge ([id number]) [facility] ([facility]) [address] [place] [address] Monocytes (Bld) [#/Vol] 1.09 x10*3/uL High 0.10-1.00 [facility] Comment on above: Performed By: #### 5 7021-8 #### ANASTACIO Hodge ([id number]) [facility] ([facility]) [address] [place] [address] 22386 Monocytes/100 WBC (Bld) 8.3 % Normal 2.0-10.0 [facility] Comment on above: Performed By: #### 5 7021-8 #### ANASTACIO Hodge ([id number]) [facility] ([facility]) [address] [place] [address] 05449 Neutrophils (Bld) [#/Vol] 9.66 x10*3/uL High 1.20-7.70 [facility] Comment on above: Result Comment: Perc ent differential counts (%) should be interpreted in the context of the absolute cell counts (cells/uL). Performed By: #### 5 7021-8 #### ANASTACIO Hodge ([id number]) [facility] ([facility]) [address] [place] [address] 47255 Neutrophils/100 WBC (Bld) 73.7 % Normal 40.0-80.0 [facility] Comment on above: Performed By: #### 5 7021-8 #### ANASTACIO Hodge ([id number]) [facility] ([facility]) [address] [place] [address] 52321 Nucleated RBC/100 WBC (Bld) [Ratio] 0.0 /100 WBCs Normal 0.0-0.0 [facility] Comment on above: Performed By: #### 5 7021-8 #### ANASTACIO Hodge ([id number]) [facility] ([facility]) [address] [place] [address] 87808 Platelets (Bld) [#/Vol] 296 x10*3/uL Normal 150-450 [facility] Comment on above: Performed By: #### 5 7021-8 #### ANASTACIO Hodge ([id number]) [facility] ([facility]) [address] [place] [address] RBC (Bld) [#/Vol] 4.25 x10*6/uL Low 4.50-5.90 [facility] Comment on above: Performed By: #### 5 7021-8 #### ANASTACIO Hodge ([id number]) [facility] ([facility]) [address] [place] [address] WBC (Bld) [#/Vol] 13.1 x10*3/uL High 4.4-11.3 [facility] Comment on above: Performed By: #### 5 7021-8 #### ANASTACIO Hodge ([id number]) [facility] ([facility]) [address] [place] [address] 76492 Magnesiumon 12-12-2023 Magnesium [Mass/Vol] 1.81 mg/dL 1.60 - 2.40 mg/dL [facility] Magnesium [Mass/Vol] 1.81 mg/dL Normal 1.60-2.40 [facility] Comment on above: Performed By: #### 1 9123-9 #### ANASTACIO Hodge ([id number]) [facility] ([facility]) [address] [place] [address] 06233 Magnesium [Mass/Vol]on 12-11 Interpretation and review of laboratory results Normal [facility] No Panel Informationon 12-11 [facility] ECG 12-LEADon 12-11-2023 ECG 12-LEAD Ventricular Rate 104 Atrial Rate 104 P-R Interval 154 QRS Duration 94 Q-T Interval 346 QTC Calculation(Bazett) 454 P [place] 43 R [place] 9 T [place] 27 QRS Count 17 Q Onset 216 P Onset 139 P Offset 196 T Offset 389 QTC Fredericia 415 Diagnosis Sinus tachycardia Minimal voltage criteria for LVH, may be normal variant Borderline ECG No previous ECGs available Confirmed by Dustin Lyman ([id number]) on 12/14/2023 2:58:33 PM Normal [place] [facility] 1 VIEWon 12-11-19 24 XR ABDOMEN 1 VIEW Interpreted By: Victoriano Warren and Liller Gregory STUDY: XR ABDOMEN 1 VIEW; 12/11/2023 12:18 pm INDICATION: Signs/Symptoms:Confi rm NG tube placement. COMPARISON: 12/10/2023 ACCESSION NUMBER(S): [id number] ORDERING CLINICIAN: CORRIE TAVAREZVED FINDINGS: Interval placement [...] Benny Matamoros. The study was interpreted at [facility] in [facility]. MACRO: none Signed by: Victoriano Warren 12/11/2023 4:14 PM Dictation workstation: [id number] Normal [facility] XR Abdomen Single viewon 1. Enteric tube projects over the expected location of the gastric antrum/proximal duodenum. 2. Similar gaseous distention of multiple loops of small bowel when compared to prior exam. I personally reviewed the images/study and I agree with the findings as stated above by resident physician, Dr. Benny Matamoros. The study was interpreted at [facility] in [facility]. MACRO: none Signed by: Victoriano Warren 12/11/2023 4:14 PM Dictation workstation: [id number] [facility] Interpreted By: Victoriano Warren and Liller Gregory STUDY: XR ABDOMEN 1 VIEW; 12/11/2023 12:18 pm INDICATION: Signs/Symptoms:Confi rm NG tube placement. COMPARISON: 12/10/2023 ACCESSION NUMBER(S): [id number] ORDERING CLINICIAN: CORRIE TAVAREZVED FINDINGS: Interval placement [...] NG tube placement. COMPARISON: 12/10/2023 ACCESSION NUMBER(S): [id number] ORDERING CLINICIAN: CORRIE CAI FINDINGS: Interval placement [...] Benny Matamoros. The study was interpreted at [facility] in [facility]. MACRO: none Signed by: Victoriano Warren 12/11/2023 4:14 PM Dictation workstation: [id number] [facility] Work Phone: [facility] Work Phone: Radiology Study observation (narrative) [facility] Work Phone: 1. Gaseous distention of multiple loops of bowel throughout the abdomen with overall nonobstructive bowel gas pattern. Findings compatible with postoperative ileus. 2. Postsurgical changes as described above. I personally reviewed the images/study and I agree with Leti Dumont DO's (vice president research) findings as stated. This study was interpreted at [place], [place]. MACRO: None Signed by: Victoriano Warren 12/11/2023 11:13 AM Dictation workstation: [id number] MMODAL Interpreted By: Victoriano Warren and Stephens Katherine STUDY: XR ABDOMEN 1 VIEW; 12/10/2023 11:52 pm INDICATION: Signs/Symptoms:c/f postop ileus. COMPARISON: Pelvic radiographs 12/08/2023 ACCESSION NUMBER(S): [id number] ORDERING CLINICIAN: ROXANNA BERMAN FINDINGS: Postsurgical changes [...] Osseous structures demonstrate no acute bony changes. [facility] Laci Warren MD - 12/11/2023 Interpreted By: Victoriano Warren and Stephens Katherine STUDY: XR ABDOMEN 1 VIEW; 12/10/2023 11:52 pm INDICATION: Signs/Symptoms:c/f postop ileus. COMPARISON: Pelvic radiographs 12/08/2023 ACCESSION NUMBER(S): [id number] ORDERING CLINICIAN: ROXANNA BERMAN FINDINGS: Postsurgical changes [...] and I agree with Leti Dumont DO's (vice president research) findings as stated. This study was interpreted at [place], [place]. MACRO: None Signed by: Victoriano Warren 12/11/2023 11:13 AM Dictation workstation: [id number] [facility] Work Phone: XR Abdomen Single viewOrdere d By: Laci Warren on 12-11-2023 [facility] Work Phone: Basic metabolic 2000 panelon 12-10-2023 Anion gap [Moles/Vol] 14 mmol/L 10 - 2 0 mmol/L [facility] Calcium [Mass/Vol] 9.3 mg/dL 8.6 - 10. 6 mg/dL [facility] Chloride [Moles/Vol] 95 mmol/L Low 98 - 10 7 mmol/L [facility] CO2 [Moles/Vol] 31 mmol/L 21 - 32 mmol/L [facility] Creatinine [Mass/Vol] 1.01 mg/dL 0.50 - 1.30 mg/dL [facility] eGFR - PINF [facility] Comment on above: Calculations of cris mated GFR are performed using the 2020 CKD-EPI Study Refit equation without the race variable for the IDMS-Traceable creatinine methods. https://jasn.asnjournals.org/content//ASN.95537 84891 Glucose [Mass/Vol] 109 mg/dL High 74 - 99 mg/dL [facility] Interpretation and review of laboratory results Abnormal [facility] Potassium [Moles/Vol] 4.2 mmol/L 3.5 - 5.3 mmol/L [facility] Sodium [Moles/Vol] 136 mmol/L 136 - 145 mmol/L [facility] Urea nitrogen [Mass/Vol] 12 mg/dL 6 - 23 mg/dL [facility] Anion gap [Moles/Vol] 14 mmol/L Normal 10-20 [facility] Comment on above: Performed By: #### 2 4321-2 #### ANASTACIO Hodge ([id number]) [facility] ([facility]) [address] [place] [address] Calcium [Mass/Vol] 9.3 mg/dL Normal 8.6-10.6 [facility] Comment on above: Performed By: #### 2 4321-2 #### ANASTACIO Hodge ([id number]) [facility] ([facility]) [address] [place] [address] Chloride [Moles/Vol] 95 mmol/L Low 98-107 [facility] [place] Comment on above: Performed By: #### 2 4321-2 #### ANASTACIO Hodge ([id number]) [facility] ([facility]) [address] [place] [address] CO2 [Moles/Vol] 31 mmol/L Normal 21-32 [facility] Comment on above: Performed By: #### 2 4321-2 #### ANASTACIO Hodge ([id number]) [facility] ([facility]) [address] [place] [address] Creatinine [Mass/Vol] 1.01 mg/dL Normal 0.50-1.30 [facility] Comment on above: Performed By: #### 2 4321-2 #### ANASTACIO Hodge ([id number]) [facility] ([facility]) [address] [place] [address] GFR/1.73 sq M.predicted MDRD (S/P/Bld) [Vol rate/Area] mL/min/{1.73_m2} Normal >60 [facility] Comment on above: Result Comment: Calc ulations of estimated GFR are performed using the 2020 CKD-EPI Study Refit equation without the race variable for the IDMS-Traceable creatinine methods. https://jasn.asnjournals.org/content/early//ASN.85506 81796 Performed By: #### 2 4321-2 #### ANASTACIO Hodge ([id number]) [facility] ([facility]) [address] [place] [address] Glucose [Mass/Vol] 109 mg/dL High 74-99 [facility] Comment on above: Performed By: #### 2 4321-2 #### ANASTACIO Hodge ([id number]) [facility] ([facility]) [address] [place] [address] Potassium [Moles/Vol] 4.2 mmol/L Normal 3.5-5.3 [facility] Comment on above: Performed By: #### 2 4321-2 #### ANASTACIO Hodge ([id number]) [facility] ([facility]) [address] [place] [address] Sodium [Moles/Vol] 136 mmol/L Normal 136-145 [facility] Comment on above: Performed By: #### 2 4321-2 #### ANASTACIO Hodge ([id number]) [facility] ([facility]) [address] [place] [address] Urea nitrogen [Mass/Vol] 12 mg/dL Normal 6-23 [facility] Comment on above: Performed By: #### 2 4321-2 #### ANASTACIO Hodge ([id number]) [facility] ([facility]) [address] [place] [address] CBC W Auto Differential pane l (Bld)on 12-10-2023 Basophils (Bld) [#/Vol] 0.08 10*3/uL [facility] Basophils/100 WBC (Bld) 0.7 % 0.0 - 2.0 % [facility] Eosinophils (Bld) [#/Vol] 0.17 10*3/uL [facility] Eosinophils/100 WBC (Bld) 1.4 % 0.0 - 6.0 % [facility] Erythrocyte distribution width (RBC) [Ratio] 13.1 % 11.5 - 14.5 % [facility] Hematocrit (Bld) [Volume fraction] 40.2 % Low 41.0 - 52.0 % [facility] Hemoglobin (Bld) [Mass/Vol] 12.9 g/dL Low 13.5 - 17.5 g/dL [facility] Immature granulocytes (Bld) [#/Vol] 0.11 10*3/uL [facility] Immature granulocytes/100 WBC (Bld) 0.9 % 0.0 - 0.9 % [facility] Comment on above: Immature Granulocyte Count (IG) includes promyelocytes, myelocytes and metamyelocytes but does not include bands. Percent differential counts (%) should be interpreted in the context of the absolute cell counts (cells/UL). Interpretation and review of laboratory results Abnormal [facility] Lymphocytes (Bld) [#/Vol] 1.82 10*3/uL [facility] Lymphocytes/100 WBC (Bld) 15.4 % 13.0 - 44.0 % [facility] MCH (RBC) [Entitic mass] 27.6 pg 26.0 - 34.0 pg [facility] MCHC (RBC) [Mass/Vol] 32.1 g/dL 32.0 - 36.0 g/dL [facility] MCV (RBC) [Entitic vol] 86 fL 80 - 100 fL [facility] Monocytes (Bld) [#/Vol] 0.86 10*3/uL [facility] Monocytes/100 WBC (Bld) 7.3 % 2.0 - 10.0 % [facility] Neutrophils (Bld) [#/Vol] 8.78 10*3/uL High [facility] Comment on above: Percent differential counts (%) should be interpreted in the context of the absolute cell counts (cells/uL). Neutrophils/100 WBC (Bld) 74.3 % 40.0 - 80.0 % [facility] Nucleated RBC/100 WBC (Bld) [Ratio] 0.0 % [facility] Platelets (Bld) [#/Vol] 286 10*3/uL [facility] RBC (Bld) [#/Vol] 4.67 10*6/uL [facility] WBC (Bld) [#/Vol] 11.8 10*3/uL [facility] Basophils (Bld) [#/Vol] 0.08 x10*3/uL Normal 0.00-0.10 [facility] Comment on above: Performed By: #### 5 7021-8 #### ANASTACIO Hodge ([id number]) [facility] ([facility]) [address] [place], [place] [address] Basophils/100 WBC (Bld) 0.7 % Normal 0.0-2.0 [facility] Comment on above: Performed By: #### 5 7021-8 #### ANASTACIO Hodge ([id number]) [facility] ([facility]) [address] [place] [address] Eosinophils (Bld) [#/Vol] 0.17 x10*3/uL Normal 0.00-0.70 [facility] Comment on above: Performed By: #### 5 7021-8 #### ANASTACIO Hodge ([id number]) [facility] ([facility]) [address] [place] [address] Eosinophils/100 WBC (Bld) 1.4 % Normal 0.0-6.0 [facility] Comment on above: Performed By: #### 5 7021-8 #### ANASTACIO Hodge ([id number]) [facility] ([facility]) [address] [place] [address] Erythrocyte distribution width (RBC) [Ratio] 13.1 % Normal 11.5-14.5 [facility] Comment on above: Performed By: #### 5 7021-8 #### ANASTACIO Hodge ([id number]) [facility] ([facility]) [address] [place] [address] Hematocrit (Bld) [Volume fraction] 40.2 % Low 41.0-52.0 [facility] Comment on above: Performed By: #### 5 7021-8 #### ANASTACIO Hodge ([id number]) [facility] ([facility]) [address] [place] [address] Hemoglobin (Bld) [Mass/Vol] 12.9 g/dL Low 13.5-17.5 [facility] Comment on above: Performed By: #### 5 7021-8 #### ANASTACIO Hodge ([id number]) [facility] ([facility]) [address] [place] [address] Immature granulocytes (Bld) [#/Vol] 0.11 x10*3/uL Normal 0.00-0.70 [facility] Comment on above: Performed By: #### 5 7021-8 #### ANASTACIO Hodge ([id number]) [facility] ([facility]) [address] [place] [address] Immature granulocytes/100 WBC (Bld) 0.9 % Normal 0.0-0.9 [facility] Comment on above: Result Comment: Brittany ture Granulocyte Count (IG) includes promyelocytes, myelocytes and metamyelocytes but does not include bands. Percent differential counts (%) should be interpreted in the context of the absolute cell counts (cells/UL). Performed By: #### 5 7021-8 #### ANASTACIO Hodge ([id number]) [facility] ([facility]) [address] [place] [address] Lymphocytes (Bld) [#/Vol] 1.82 x10*3/uL Normal 1.20-4.80 [facility] Comment on above: Performed By: #### 5 7021-8 #### ANASTACIO Hodge ([id number]) [facility] ([facility]) [address] [place] [address] Lymphocytes/100 WBC (Bld) 15.4 % Normal 13.0-44.0 [facility] Comment on above: Performed By: #### 5 7021-8 #### ANASTACIO Hodge ([id number]) [facility] ([facility]) [address] [place] [address] MCH (RBC) [Entitic mass] 27.6 pg Normal 26.0-34.0 [facility] Comment on above: Performed By: #### 5 7021-8 #### ANASTACIO Hodge ([id number]) [facility] ([facility]) [address] [place] [address] MCHC (RBC) [Mass/Vol] 32.1 g/dL Normal 32.0-36.0 [facility] Comment on above: Performed By: #### 5 7021-8 #### ANASTACIO Hodge ([id number]) [facility] ([facility]) [address] [place] [address] MCV (RBC) [Entitic vol] 86 fL Normal 80-100 [facility] Comment on above: Performed By: #### 5 7021-8 #### ANASTACIO Hodge ([id number]) [facility] ([facility]) [address] [place] [address] Monocytes (Bld) [#/Vol] 0.86 x10*3/uL Normal 0.10-1.00 [facility] Comment on above: Performed By: #### 5 7021-8 #### ANASTACIO WOOD L ([id number]) [facility] ([facility]) [address] [place] [address] Monocytes/100 WBC (Bld) 7.3 % Normal 2.0-10.0 [facility] Comment on above: Performed By: #### 5 7021-8 #### ANASTACIO WOOD L ([id number]) [facility] ([facility]) [address] [place] [address] Neutrophils (Bld) [#/Vol] 8.78 x10*3/uL High 1.20-7.70 [facility] Comment on above: Result Comment: Perc ent differential counts (%) should be interpreted in the context of the absolute cell counts (cells/uL). Performed By: #### 5 7021-8 #### ANASTACIO WOOD L ([id number]) [facility] ([facility]) [address] [place] [address] 1999[address] Neutrophils/100 WBC (Bld) 74.3 % Normal 40.0-80.0 [facility] Comment on above: Performed By: #### 5 7021-8 #### ANASTACIO Hodge ([id number]) [facility] ([facility]) [address] [place] [address] Nucleated RBC/100 WBC (Bld) [Ratio] 0.0 /100 WBCs Normal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 on above: Performed By: #### 2 706423 ####[facility] [address] [place] [address] Vaccinationson 09-16-2023 Vaccinations [id number] 9#1.00TIFF Normal [facility] eGFRon 09-16-2023 eGFR 93 mL/min/1.73 m2 Normal >=59 [facility] Comment on above: Order Comment: Order added by Discern Expert. Performed By: #### 2 484928, 9114562, 3397056, 39990039, 3574304, 1681001, 12919259, 7048055 ####[facility] [address] [place] [address] XR CHEST 2 Von 12-10-2022 XR CHEST [...] ALFONZO FERNANDEZ Date: 2022-12-10 12:03 Normal [facility] CBC AUTO DIFFon 07-06-2022 BASO # 0.1 103/ul Normal 0.0-0.1 [facility] Comment on above: Performed By: #### B CATHY, TSH #### [facility] [address] [address] [address] Fazal Shearer Basophils/100 WBC (Bld) 0.8 % Normal 0.2-2.0 [facility] Comment on above: Performed By: #### B CATHY, TSH #### [facility] [address] [address] [address] Fazal Shearer EO # 0.2 103/ul Normal 0.0-0.7 [facility] Comment on above: Performed By: #### B MP, TSH #### [facility] [address] [place] [address] Dr. Fazal Shearer Eosinophils/100 WBC (Bld) 2.1 % Normal 0.9-7.0 [facility] Comment on above: Performed By: #### B MP, TSH #### [facility] [address] [place] [address] Dr. Fazal Shearer Erythrocyte distribution width (RBC) [Ratio] 12.7 % Normal 11.0-15.0 [facility] Comment on above: Performed By: #### B MP, TSH #### [facility] [address] [place] [address] Dr. Fazal Shearer Hematocrit (Bld) [Volume fraction] 45.2 % Normal 42.0-54.0 [facility] Comment on above: Performed By: #### B MP, TSH #### [facility] [address] [place] [address] Dr. Fazal Shearer Hemoglobin (Bld) [Mass/Vol] 15.4 g/dL Normal 14.0-18.0 [facility] Comment on above: Performed By: #### B MP, TSH #### [facility] [address] [place] [address] Dr. Fazal Shearer IG # 0.07 10e3/ul Critically high 0.00-0.03 [facility] Comment on above: Performed By: #### B MP, TSH #### [facility] [address] [place] [address] Dr. Fazal Shearer IG % 0.9 % Critically high 0.0-0.5 [facility] Comment on above: Performed By: #### B MP, TSH #### [facility] [address] [place] [address] Dr. Fazal Shearer LYMPH # 2.3 103/ul Normal 1.2-3.8 [facility] Comment on above: Performed By: #### B MP, TSH #### [facility] [address] [place] [address] Dr. Fazal Shearer Lymphocytes/100 WBC (Bld) 30.2 % Normal 20.5-60.0 [facility] Comment on above: Performed By: #### B MP, TSH #### [facility] [address] [place] [address] Dr. Fazal Shearer MANUAL DIFF REQ NO Normal [facility] Comment on above: Performed By: #### B MP, TSH #### [facility] [address] [place] [address] Dr. Fazal Shearer MCH (RBC) [Entitic mass] 28.8 pg Normal 25.9-34.0 [facility] Comment on above: Performed By: #### B MP, TSH #### [facility] [address] [place] [address] Dr. Fazal Shearer MCHC (RBC) [Mass/Vol] 34.1 g/dL Normal 29.9-35.2 [facility] Comment on above: Performed By: #### B MP, TSH #### [facility] [address] [place] [address] Dr. Fazal Shearer MCV (RBC) [Entitic vol] 84.6 fL Normal 80.0-94.0 [facility] Comment on above: Performed By: #### B MP, TSH #### [facility] [address] [place] [address] Dr. Fazal Shearer MONO # 0.6 103/ul Normal 0.3-0.8 [facility] Comment on above: Performed By: #### B MP, TSH #### [facility] [address] [place] [address] Dr. Fazal Shearer Monocytes/100 WBC (Bld) 7.5 % Normal 1.7-12.0 [facility] Comment on above: Performed By: #### B MP, TSH #### [facility] [address] [place] [address] Dr. Fazal Shearer NEUT # 4.4 103/ul Normal 1.4-6.5 [facility] Comment on above: Performed By: #### B MP, TSH #### [facility] [address] [address] [address] Fazal Shearer Neutrophils/100 WBC (Bld) 58.5 % Normal 43.0-75.0 [facility] Comment on above: Performed By: #### B MP, TSH #### [facility] [address] [address] [address] Fazal Shearer Platelet mean volume (Bld) [Entitic vol] 9.1 fL Critically low 9.5-13.5 [facility] Comment on above: Performed By: #### B MP, TSH #### [facility] [address] [place] [address] Dr. Fazal Shearer PLT 245 103/ul Normal 150-450 [facility] Comment on above: Performed By: #### B MP, TSH #### [facility] [address] [place] [address] Dr. Fazal Shearer RBC 5.34 106/ul Normal 4.70-6.10 [facility] Comment on above: Performed By: #### B MP, TSH #### [facility] [address] [place] [address] Dr. Fazal Shearer WBC 7.5 103/ul Normal 4.0-11.0 [facility] Comment on above: Performed By: #### B MP, TSH #### [facility] [address] [place] [address] Dr. Fazal Shearer PROF CHEM 8 (BAS METB)on Anion gap [Moles/Vol] 9.3 mmol/L Normal [facility] Comment on above: Performed By: #### B MP, TSH #### [facility] [address] [place] [address] Dr. Fazal Shearer Calcium [Mass/Vol] 9.2 mg/dL Normal 8.5-10.1 [facility] Comment on above: Performed By: #### B MP, TSH #### [facility] [address] [place] [address] Dr. Fazal Shearer Chloride [Moles/Vol] 105 mmol/L Normal 98-107 [facility] Comment on above: Performed By: #### B MP, TSH #### [facility] [address] [address] [address] Fazal Shearer CO2 [Moles/Vol] 31.9 mmol/L Normal 21.0-32.0 [facility] Comment on above: Performed By: #### B MP, TSH #### [facility] [address] [address] [address] Fazal Shearer Creatinine [Mass/Vol] 1.04 mg/dL Normal 0.70-1.30 [facility] Comment on above: Performed By: #### B MP, TSH #### [facility] [address] [address] [address] Fazal Shearer EGFR-AF LATVIAN >60 Normal >=60 [facility] Comment on above: Performed By: #### B MP, TSH #### [facility] [address] [address] [address] Fazal Shearer EGFR-NON AF LATVIAN >60 Normal >=60 [facility] Comment on above: Performed By: #### B MP, TSH #### [facility] [address] [address] [address] Fazal Shearer Glucose [Mass/Vol] 102 mg/dL Normal 74-106 [facility] Comment on above: Performed By: #### B MP, TSH #### [facility] [address] [address] [address] Fazal Shearer Potassium [Moles/Vol] 5.2 mmol/L Critically high 3.5-5.1 [facility] Comment on above: Performed By: #### B MP, TSH #### [facility] [address] [address] [address] Fazal Shearer Sodium [Moles/Vol] 141 mmol/L Normal 136-145 [facility] Comment on above: Performed By: #### B MP, TSH #### [facility] [address] [address] [address] Fazal Shearer Urea nitrogen [Mass/Vol] 15.0 mg/dL Normal 7.0-18.0 [facility] Comment on above: Performed By: #### B MP, TSH #### [facility] [address] [place] [address] Dr. Fazal Shearer Urea nitrogen/Creatinine [Mass ratio] 14.4 mg/mg Normal [facility] Comment on above: Performed By: #### B MP, TSH #### [facility] [address] [place] [address] Dr. Fazal Shearer TSHon 07-06-2022 TSH 1.300 uIU/mL Normal 0.358-3.740 [facility] Comment on above: Performed By: #### B MP, TSH #### [facility] [address] [place] [address] Dr. Fazal Shearer CBC AUTO DIFFon 03-31-2022 BASO # 0.1 103/ul Normal 0.0-0.1 [facility] Comment on above: Performed By: #### B MP, TSH #### [facility] [address] [place] [address] Dr. Fazal Shearer Basophils/100 WBC (Bld) 0.9 % Normal 0.2-2.0 [facility] Comment on above: Performed By: #### B MP, TSH #### [facility] [address] [place] [address] Dr. Fazal Shearer EO # 0.2 103/ul Normal 0.0-0.7 [facility] Comment on above: Performed By: #### B MP, TSH #### [facility] [address] [place] [address] Dr. Fazal Shaerer Eosinophils/100 WBC (Bld) 3.2 % Normal 0.9-7.0 [facility] Comment on above: Performed By: #### B MP, TSH #### [facility] [address] [place] [address] Dr. Fazal Shearer Erythrocyte distribution width (RBC) [Ratio] 12.2 % Normal 11.0-15.0 [facility] Comment on above: Performed By: #### B MP, TSH #### [facility] [address] [place] [address] Dr. Fazal Shearer Hematocrit (Bld) [Volume fraction] 41.3 % Critically low 42.0-54.0 [facility] Comment on above: Performed By: #### B MP, TSH #### [facility] [address] [place] [address] Dr. Fazla Shearer Hemoglobin (Bld) [Mass/Vol] 14.1 g/dL Normal 14.0-18.0 [facility] Comment on above: Performed By: #### B MP, TSH #### [facility] [address] [place] [address] Dr. Fazal Shearer IG # 0.05 10e3/ul Critically high 0.00-0.03 [facility] Comment on above: Performed By: #### B MP, TSH #### [facility] [address] [place] [address] Dr. Fazal Shearer IG % 0.9 % Critically high 0.0-0.5 [facility] Comment on above: Performed By: #### B MP, TSH #### [facility] [address] [place] [address] Dr. Fazal Shearer LYMPH # 2.0 103/ul Normal 1.2-3.8 [facility] Comment on above: Performed By: #### B MP, TSH #### [facility] [address] [place] [address] Dr. Fazal Shearer Lymphocytes/100 WBC (Bld) 33.5 % Normal 20.5-60.0 [facility] Comment on above: Performed By: #### B MP, TSH #### [facility] [address] [place] [address] Dr. Fazal Shearer MANUAL DIFF REQ NO Normal [facility] Comment on above: Performed By: #### B MP, TSH #### [facility] [address] [place] [address] Dr. Fazal Shearer MCH (RBC) [Entitic mass] 29.3 pg Normal 25.9-34.0 [facility] Comment on above: Performed By: #### B MP, TSH #### [facility] [address] [place] [address] Dr. Fazal Shearer MCHC (RBC) [Mass/Vol] 34.1 g/dL Normal 29.9-35.2 [facility] Comment on above: Performed By: #### B MP, TSH #### [facility] [address] [place] [address] Dr. Fazal Shearer MCV (RBC) [Entitic vol] 85.9 fL Normal 80.0-94.0 [facility] Comment on above: Performed By: #### B MP, TSH #### [facility] [address] [place] [address] Dr. Fazal Shearer MONO # 0.5 103/ul Normal 0.3-0.8 [facility] Comment on above: Performed By: #### B CATHY, TSH #### [facility] [address] [place] [address] Dr. Fazal Shearer Monocytes/100 WBC (Bld) 8.4 % Normal 1.7-12.0 [facility] Comment on above: Performed By: #### B CATHY, TSH #### [facility] [address] [place] [address] Dr. Fazal Shearer NEUT # 3.1 103/ul Normal 1.4-6.5 [facility] Comment on above: Performed By: #### B CATHY, TSH #### [facility] [address] [place] [address] Dr. Fazal Shearer Neutrophils/100 WBC (Bld) 53.1 % Normal 43.0-75.0 [facility] Comment on above: Performed By: #### B CATHY, TSH #### [facility] [address] [place] [address] Dr. Fazal Shearer Platelet mean volume (Bld) [Entitic vol] 9.3 fL Critically low 9.5-13.5 [facility] Comment on above: Performed By: #### B MP, TSH #### [facility] [address] [place] [address] Dr. Fazal Shearer PLT 248 103/ul Normal 150-450 [facility] Comment on above: Performed By: #### B CATHY, TSH #### [facility] [address] [place] [address] Dr. Fazal Shearer RBC 4.81 106/ul Normal 4.70-6.10 [facility] Comment on above: Performed By: #### B MP, TSH #### [facility] [address] [address] [address] Fazal Shearer WBC 5.9 103/ul Normal 4.0-11.0 [facility] Comment on above: Performed By: #### B MP, TSH #### [facility] [address] [address] [address] Fazal Shearer ECHOCARDIO M/2D COMPLETEon 0 03-31-2022 ECHOCARDIO M/2D COMPLETE Patient: PROSPER MILIAN Exam Date: 03/31/2022 : 1975 Gender:M Ordering : DR CHANTAL MART M.D. Admission #: [id number] Family : Order #: [id number] CLICK HERE TO VIEW EXAM ECHOCARDIOGRAM REPORT [...] M.D. on 03/31/2022 at 19:40 Normal [facility] PROF CHEM 8 (BAS METB)on Anion gap [Moles/Vol] 7.8 mmol/L Normal [facility] Comment on above: Performed By: #### B MP, TSH #### [facility] [address] [place] [address] Dr. Fazal Shearer Calcium [Mass/Vol] 8.4 mg/dL Critically low 8.5-10.1 [facility] Comment on above: Performed By: #### B CATHY, TSH #### [facility] [address] [place] [address] Dr. Fazal Shearer Chloride [Moles/Vol] 104 mmol/L Normal 98-107 [facility] Comment on above: Performed By: #### B CATHY, TSH #### [facility] [address] [place] [address] Dr. Fazal Shearer CO2 [Moles/Vol] 30.3 mmol/L Normal 21.0-32.0 [facility] Comment on above: Performed By: #### B MP, TSH #### [facility] [address] [place] [address] Dr. Fazal Shearer Creatinine [Mass/Vol] 0.99 mg/dL Normal 0.70-1.30 [facility] Comment on above: Performed By: #### B MP, TSH #### [facility] [address] [place] [address] Dr. Fazal Shearer EGFR-AF LATVIAN >60 Normal >=60 [facility] Comment on above: Performed By: #### B MP, TSH #### [facility] [address] [place] [address] Dr. Fazal Shearer EGFR-NON AF LATVIAN >60 Normal >=60 [facility] Comment on above: Performed By: #### B MP, TSH #### [facility] [address] [address] [address] Fazal Shearer Glucose [Mass/Vol] 103 mg/dL Normal 74-106 [facility] Comment on above: Performed By: #### B MP, TSH #### [facility] [address] [address] [address] Fazal Shearer Potassium [Moles/Vol] 4.1 mmol/L Normal 3.5-5.1 [facility] Comment on above: Performed By: #### B MP, TSH #### [facility] [address] [address] [address] Fazal Shearer Sodium [Moles/Vol] 138 mmol/L Normal 136-145 [facility] Comment on above: Performed By: #### B MP, TSH #### [facility] [address] [address] [address] Fazal Shearer Urea nitrogen [Mass/Vol] 17.0 mg/dL Normal 7.0-18.0 [facility] Comment on above: Performed By: #### B MP, TSH #### [facility] [address] [address] [address] Fazal Shearer Urea nitrogen/Creatinine [Mass ratio] 17.2 mg/mg Normal [facility] Comment on above: Performed By: #### B MP, TSH #### [facility] [address] [address] [address] Fazal Shearer TSHon 03-31-2022 TSH 0.867 uIU/mL Normal 0.358-3.740 [facility] Comment on above: Performed By: #### B MP, TSH #### [facility] [address] [address] [address] LUMBAR SPINE W [...] mm posterior listhesis of L5 on S1. [employer] Work Phone: [place], [employer] Incoming Radiant Results From [employer] - 02/26/2021 10:26 AM EDT IMPRESSION: L5/S1 [...] mm posterior listhesis of L5 on S1. [employer] Work Phone: IR LUMBAR PUNCTURE FOR MYELO GRAM CTOrdered By: Hamliton Elder on 02-26-2021 1. Successful fluoroscopy-guided myelogram [...] Please see CT dictation for full details. [employer] Work Phone: [place], [facility] Incoming Radiant Results From [employer] - 02/26/2021 11:13 AM EDT IMPRESSION: 1. [...] Please see CT dictation for full details. [employer] Work Phone: No Panel InformationOrdered By: Hamilton Elder on 02-26-2021 [email or web address] Phone: [email or web address] Phone: CT LUMBAR SPINE W CONTRASTon 02-25-2021 [...] Shun Shah MD 02/26/21 Final result Normal [facility] IR LUMBAR PUNCTURE FOR MYELO GRAM CTon [...] Shun Shah MD 02/26/21 Final result Normal [facility] Basic Metabolic Panelon 07- Anion gap [Moles/Vol] 10 mmol/L Normal 9-15 [facility] Comment on above: Performed By: #### B MP #### [facility] [address] [place] [address] Calcium [Mass/Vol] 9.3 mg/dL Normal 8.5-9.9 [facility] Comment on above: Performed By: #### B MP #### [facility] [address] [place] [address] Chloride [Moles/Vol] 102 mmol/L Normal 95-107 [facility] Comment on above: Performed By: #### B MP #### [facility] [address] [place] [address] CO2 [Moles/Vol] 27 mmol/L Normal 20-31 [facility] Comment on above: Performed By: #### B MP #### [facility] [address] [place] [address] Creatinine [Mass/Vol] 0.83 mg/dL Normal 0.70-1.20 [facility] Comment on above: Performed By: #### B MP #### [facility] [address] [place] [address] GFR >60.0 Normal >60 [facility] Comment on above: Result Comment: >60 mL/min/1.73m2 EGFR, calc. for ages 18 and older using the MDRD formula (not corrected for weight), is valid for stable renal function. Performed By: #### B MP #### [facility] [address] [place] [address] GFR/1.73 sq M.predicted among blacks MDRD (S/P/Bld) [Vol rate/Area] mL/min/{1.73_m2} Normal >60 [facility] Comment on above: Result Comment: >60 mL/min/1.73m2 EGFR, calc. for ages 18 and older using the MDRD formula (not corrected for weight), is valid for stable renal function. Performed By: #### B MP #### [facility] [address] [place] [address] Glucose [Mass/Vol] 96 mg/dL Normal 70-99 [facility] Comment on above: Performed By: #### B MP #### [facility] [address] [place] [address] Potassium [Moles/Vol] 3.8 mmol/L Normal 3.4-4.9 [facility] Comment on above: Performed By: #### B MP #### [facility] [address] [place] [address] Sodium [Moles/Vol] 139 mmol/L Normal 135-144 [facility] Comment on above: Performed By: #### B MP #### [facility] [address] [place] [address] Urea nitrogen [Mass/Vol] 13 mg/dL Normal 6-20 [facility] Comment on above: Performed By: #### B MP #### [facility] [address] [place] [address] CBC With Platelet No Differe ntialon 07-15-2021 Erythrocyte distribution width (RBC) [Ratio] 12.9 % Normal 11.5-14.5 [facility] Comment on above: Performed By: #### C BCND #### [facility] [address] [place] [address] Hematocrit (Bld) [Volume fraction] 45.5 % Normal 42.0-52.0 [facility] Comment on above: Performed By: #### C BCND #### [facility] [address] [place] [address] Hemoglobin (Bld) [Mass/Vol] 15.3 g/dL Normal 14.0-18.0 [facility] Comment on above: Performed By: #### C BCND #### [facility] [address] [place] [address] MCH (RBC) [Entitic mass] 28.7 pg Normal 27.0-31.3 [facility] Comment on above: Performed By: #### C BCND #### [facility] [address] [place] [address] MCHC 33.7 % Normal 33.0-37.0 [facility] Comment on above: Performed By: #### C BCND #### [facility] [address] [place] [address] MCV (RBC) [Entitic vol] 85.4 fL Normal 80.0-100.0 [facility] Comment on above: Performed By: #### C BCND #### [facility] [address] [place] [address] Platelets (Bld) [#/Vol] 259 10*3/uL Normal 130-400 [facility] Comment on above: Performed By: #### C BCND #### [facility] [address] [place] [address] RBC (Bld) [#/Vol] 5.33 10*6/uL Normal 4.70-6.10 [facility] Comment on above: Performed By: #### C BCND #### [facility] [address] [place] [address] WBC (Bld) [#/Vol] 6.2 10*3/uL Normal 4.8-10.8 [facility] Comment on above: Performed By: #### C BCND #### [facility] [address] [place] [address] Prothrombin Timeon INR Coag (PPP) [Relative time] 1.0 {INR} Normal [facility] Comment on above: Performed By: #### P T #### [facility] [address] [place] [address] PT Coag (PPP) [Time] 13.2 s Normal 12.3-14.9 [facility] Comment on above: Performed By: #### P T #### [facility] [address] [place] [address] Vital Signs Date Time Vital Sign Value Performing Clinician Facility 03-11-2025 15:58-0400 Body mass index (BMI) [Ratio] 31.33 kg/m2 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 Phone: [facility] 03-11-2025 15:58-0400 Body temperature 97.59 [degF] 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 Phone: [facility] 03-11-2025 15:58-0400 Body weight 104.78 kg 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 Phone: [facility] 03-11-2025 15:58-0400 Diastolic blood pressure 82 mm[Hg] 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 Phone: [facility] 03-11-2025 15:58-0400 Heart rate 94 /min 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 Phone: [facility] 03-11-2025 15:58-0400 Respiratory rate 20 /min 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 Phone: [facility] 03-11-2025 15:58-0400 SaO2% (BldA) [Mass fraction] 98 % 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 Phone: [facility] 03-11-2025 15:58-0400 Systolic blood pressure 126 mm[Hg] 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 Phone: [facility] 02-21-2025 09:59-0400 Body height 182.88 cm Chantal Mart MD Work Phone: [facility] 02-21-2025 09:59-0400 Body mass index (BMI) [Ratio] 33.7 kg/m2 Chantal Mart MD Work Phone: [facility] 02-21-2025 09:59-0400 Body weight 112.94 kg Chantal Mart MD Work Phone: [facility] 02-21-2025 09:59-0400 Diastolic blood pressure 91 mm[Hg] Chantal Mart MD Work Phone: [facility] 02-21-2025 09:59-0400 Heart rate 67 /min Chantal Mart MD Work Phone: [facility] 02-21-2025 09:59-0400 Systolic blood pressure 146 mm[Hg] Chantal Mart MD Work Phone: [facility] 02-14-2025 15:14-0400 Body height 182.9 cm Rolo Lizett DO Work Phone: [facility] 02-14-2025 15:14-0400 Body mass index (BMI) [Ratio] 31.19 kg/m2 Rolo Biedenzeb DO Work Phone: [facility] 02-14-2025 15:14-0400 Body weight 104.33 kg Rolo Biedenzeb DO Work Phone: [facility] 01-03-2025 13:43-0400 Body height 182.9 cm Rolo Biedenzeb DO Work Phone: [facility] 01-03-2025 13:43-0400 Body mass index (BMI) [Ratio] 31.19 kg/m2 Rolo Biedenbach DO Work Phone: [facility] 01-03-2025 13:43-0400 Body weight 104.33 kg Rolo Phoenix DO Work Phone: [facility] 12-27-2024 13:23-0400 Body height 182.88 cm [facility] 12-27-2024 13:23-0400 Body mass index (BMI) [Ratio] 31.4 kg/m2 [facility] 12-27-2024 13:23-0400 Body weight 105 kg [facility] 12-27-2024 13:23-0400 Diastolic blood pressure 74 mm[Hg] [facility] 12-27-2024 13:23-0400 Heart rate 91 /min [facility] 12-27-2024 13:23-0400 Systolic blood pressure 110 mm[Hg] [facility] 12-11-2024 13:37-0400 Body height 182.9 cm Rolo Phoenix DO Work Phone: [facility] 12-11-2024 13:37-0400 Body mass index (BMI) [Ratio] 31.19 kg/m2 Rolo Villavicencioedenzeb DO Work Phone: [facility] 12-11-2024 13:37-0400 Body weight 104.33 kg Rolo Villavicencioedsilver DO Work Phone: [facility] 11-30-2024 08:27-0400 Body height 182.88 cm [facility] 11-30-2024 08:27-0400 Body mass index (BMI) [Ratio] 32.1 kg/m2 [facility] 11-30-2024 08:27-0400 Body weight 107.5 kg [facility] 11-30-2024 08:27-0400 Diastolic blood pressure 70 mm[Hg] [facility] 11-30-2024 08:27-0400 Heart rate 87 /min [facility] 11-30-2024 08:27-0400 Systolic blood pressure 123 mm[Hg] [facility] 11-13-2024 14:01-0400 Body height 182.9 cm Rolo Phoenix DO Work Phone: [facility] 11-13-2024 14:01-0400 Body mass index (BMI) [Ratio] 31.46 kg/m2 Rolo Phoenix DO Work Phone: [facility] 11-13-2024 14:01-0400 Body weight 105.23 kg Rolo Phoenix DO Work Phone: [facility] 10-19-2024 08:25-0400 Body height 182.88 cm [facility] 10-19-2024 08:25-0400 Body mass index (BMI) [Ratio] 31.4 kg/m2 [facility] 10-19-2024 08:25-0400 Body temperature 98.2 [degF] [facility] 10-19-2024 08:25-0400 Body weight 105.23 kg [facility] 10-19-2024 08:25-0400 Diastolic blood pressure 79 mm[Hg] [facility] 10-19-2024 08:25-0400 Heart rate 76 /min [facility] 10-19-2024 08:25-0400 Systolic blood pressure 114 mm[Hg] [facility] 09-26-2024 10:56-0500 Body height 182.88 cm Chantal Mart MD Work Phone: [facility] 09-26-2024 10:56-0500 Body mass index (BMI) [Ratio] 32.3 kg/m2 Chantal Mart MD Work Phone: [facility] 09-26-2024 10:56-0500 Body temperature 98.9 [degF] Chantal Mart MD Work Phone: [facility] 09-26-2024 10:56-0500 Body weight 107.95 kg Chantal Mart MD Work Phone: [facility] 09-26-2024 10:56-0500 Diastolic blood pressure 77 mm[Hg] Chantal Mart MD Work Phone: [facility] 09-26-2024 10:56-0500 Heart rate 76 /min Chantal Mart MD Work Phone: [facility] 09-26-2024 10:56-0500 SaO2% (BldA) [Mass fraction] 97 % Chantal Mart MD Work Phone: [facility] 09-26-2024 10:56-0500 Systolic blood pressure 117 mm[Hg] Chantal Mart MD Work Phone: [facility] 09-03-2024 15:05-0500 Body height 182.88 cm Chantal Mart MD Work Phone: [facility] 09-03-2024 15:05-0500 Body mass index (BMI) [Ratio] 32 kg/m2 Chantal Mart MD Work Phone: [facility] 09-03-2024 15:05-0500 Body weight 107.04 kg Chantal Mart MD Work Phone: [facility] 09-03-2024 15:05-0500 Diastolic blood pressure 83 mm[Hg] Chantal Mart MD Work Phone: [facility] 09-03-2024 15:05-0500 Heart rate 90 /min Chantal Mart MD Work Phone: [facility] 09-03-2024 15:05-0500 Systolic blood pressure 116 mm[Hg] Chantal Mart MD Work Phone: [facility] 07-11-2024 11:53-0500 Body height 182.88 cm Chantal Mart MD Work Phone: [facility] 07-11-2024 11:53-0500 Body mass index (BMI) [Ratio] 33 kg/m2 Chantal Mart MD Work Phone: [facility] 07-11-2024 11:53-0500 Body weight 110.67 kg Chantal Mart MD Work Phone: [facility] 07-11-2024 11:53-0500 Diastolic blood pressure 86 mm[Hg] Chantal Mart MD Work Phone: [facility] 07-11-2024 11:53-0500 Heart rate 83 /min Chantal Mart MD Work Phone: [facility] 07-11-2024 11:53-0500 Systolic blood pressure 129 mm[Hg] Chantal Mart MD Work Phone: [facility] 07-02-2024 14:38-0500 Body height 182.88 cm Chantal Mart MD Work Phone: [facility] 07-02-2024 14:38-0500 Body mass index (BMI) [Ratio] 33.2 kg/m2 Chantal Mart MD Work Phone: [facility] 07-02-2024 14:38-0500 Body weight 111.13 kg Chantal Mart MD Work Phone: [facility] 07-02-2024 14:38-0500 Diastolic blood pressure 88 mm[Hg] Chantal Mart MD Work Phone: [facility] 07-02-2024 14:38-0500 Heart rate 89 /min Chantal Mart MD Work Phone: [facility] 07-02-2024 14:38-0500 Systolic blood pressure 117 mm[Hg] Chantal Mart MD Work Phone: [facility] 12-21-2023 08:13-0400 Body temperature 97.5 [degF] Adam Navarro MD Work Phone: [facility] 12-21-2023 08:13-0400 Diastolic blood pressure 80 mm[Hg] Adam Navarro MD Work Phone: [facility] 12-21-2023 08:13-0400 Heart rate 85 /min Adam Navarro MD Work Phone: [facility] 12-21-2023 08:13-0400 Respiratory rate 16 /min Adam Navarro MD Work Phone: [facility] 12-21-2023 08:13-0400 SaO2% (BldA) [Mass fraction] 97 % Adam Navarro MD Work Phone: [facility] 12-21-2023 08:13-0400 Systolic blood pressure 119 mm[Hg] Adam Navarro MD Work Phone: [facility] 12-11-2023 08:33-0400 Body height 180.3 cm Adam Navarro MD Work Phone: [facility] 12-11-2023 08:33-0400 Body mass index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
--- NOTE | 2025-05-23 14:52 | PM.CN ---
Consult Note: HPI Data of Consult Patient: known to practice within the last 3 years Consult date: 05/23/25 Requesting Physician: Cheryl Arango NP Primary Care Provider: Jaymie Haas MD Consult Narrative Reason for consult: right shoulder and low back pain Narrative: 49yom who presents for assessment. continues to use diclofenac, baclofen, percocet and gabapentin. denies adverse med side effects. Pain today 6/10, increaing with standing, walking, activity, sleep, and cold weather. Pain improved with sitting and lying. Prior CT of lumbar spine revealed facet arthropathy and lumbar DDD at L5-S1. pt did complete right shoulder xray with results below. cc:: CC: Cheryl Arango NP Review of Systems ROS Musculoskeletal Reports: back pain and joint pain PFSH PFSH Medical History Lumbar back pain ?M54.50 - Low back pain, unspecified (ICD-10) High cholesterol ?E78.00 - Pure hypercholesterolemia, unspecified (ICD-10) Glenoid cavity and neck of scapula fracture ?S42.143A - Displaced fracture of glenoid cavity of scapula, unspecified shoulder, initial encounter for closed fracture (ICD-10) ?S42.153A - Displaced fracture of neck of scapula, unspecified shoulder, initial encounter for closed fracture (ICD-10) Subdural hematoma ?S06.5XAA - Traumatic subdural hemorrhage with loss of consciousness status unknown, initial encounter (ICD-10) Osteoarthritis ?M19.90 - Unspecified osteoarthritis, unspecified site (ICD-10) Asthma ?J45.909 - Unspecified asthma, uncomplicated (ICD-10) HTN (hypertension) ?I10 - Essential (primary) hypertension (ICD-10) Surgical History S/P ORIF (open reduction internal fixation) fracture ?Z98.890 - Other specified postprocedural states (ICD-10) ?Z87.81 - Personal history of (healed) traumatic fracture (ICD-10) History of facial surgery ?Z98.890 - Other specified postprocedural states (ICD-10) Hx of colonoscopy ?Z98.890 - Other specified postprocedural states (ICD-10) S/P correction of deviated nasal septum ?Z98.890 - Other specified postprocedural states (ICD-10) Social History Little interest or pleasure in doing things: not at all Feeling down, depressed, or hopeless: not at all Meds Home Medications and Allergies Home Medications ?Medication ?Instructions ?Recorded ?Confirmed ?Type albuterol sulfate 90 mcg/actuation 2 inh inhalation Q3H PRN shortness 03/22/23 07/16/24 History aerosol inhaler of breath or wheezing lisinopril 20 mg tablet 10 mg PO DAILY 03/22/23 02/14/25 History simvastatin 20 mg tablet 20 mg PO DAILY 03/22/23 08/29/24 History sumatriptan succinate 50 mg tablet See Rx Instructions PO .COMPLEX 03/22/23 07/16/24 History diclofenac sodium 50 mg 50 mg PO BID PRN pain #60 tabs 02/29/24 08/29/24 Rx tablet,delayed release baclofen 10 mg tablet 10 mg PO TID PRN muscle spasm #90 04/26/24 08/29/24 Rx tabs naloxone 4 mg/actuation nasal 4 mg intranasal Q3M PRN opioid 07/04/24 07/16/24 Rx spray (Narcan) overdose #2 ea Glucosamine chondroitin 1 tab PO BID 08/29/24 08/29/24 History multivitamin 1 tab PO DAILY 08/29/24 08/29/24 History gabapentin 600 mg tablet 600 mg PO BID #60 tabs 04/04/25 Rx oxycodone-acetaminophen 5 mg-325 1 tab PO TID PRN pain #90 tabs 04/29/25 Rx mg tablet (Percocet) gabapentin 600 mg tablet 600 mg PO BID #60 tabs 05/09/25 Rx Allergies Allergy/AdvReac Type Severity Reaction Status Date / Time tramadol Allergy Nausea Verified 08/29/24 21:22 nalbuphine (From Nubain) AdvReac Unknown Nausea Verified 08/29/24 21:22 Exam Constitutional Documenting provider has reviewed patient's vital signs: yes Common normals: no apparent distress, oriented x3, healthy appearing, alert and well nourished General appearance: cooperative HENMT Common normals: normocephalic, hearing grossly normal bilaterally and moist oral mucous membranes Head and scalp: normocephalic Eye Common normals: PERRL Pupil: PERRL Neck & C-Spine Common normals: full ROM General: normal visual inspection Chest Common normals: inspection of chest normal Respiratory Common normals: normal respiratory effort, no retractions and no use of accessory muscles Back & Pelvis Lumbar spine/lower back: ROM limited and pain with ROM Extremity Right upper extremity: shoulder joint Other: positive empty can and posterior liftoff, increased pain in right AC joint with crossbody adduction. limited ROM with overhead reach Neuro Common normals: oriented x3, CN's II-XII intact bilaterally, moves all extremities, no focal motor deficits, no sensory deficits noted and deep tendon reflexes 2+ bilaterally Sensorium/orientation: alert Motor exam: strength 5/5 throughout and no movement abnormalities noted Psych Common normals: mental status grossly normal, thought process normal, cooperative, affect normal, speech normal and activity/motor behavior normal Speech: normal speech Thought process: normal thought process Results Additional Findings Additional findings: AP, Y and Grashey views were obtained. Clips/pins overlie the glenohumeral joint on the AP and Grashey views. There is no acute fracture or dislocation. Mild degenerative changes seen at the acromioclavicular joint and greater tuberosity. There is moderate spurring at the inferior glenohumeral joints where there are adjacent osteochondral loose bodies. There is narrowing of the acromiohumeral interval and rotator cuff disease is possible. There is no obvious soft tissue swelling. Assessment and Plan Assessment and Plan (1) Chronic right shoulder pain: (2) Osteoarthritis of right shoulder: (3) Lumbar spondylosis: (4) Lumbar degenerative disc disease: (5) Chronic prescription opiate use: (6) Muscle spasm: (7) Sacroiliitis: (8) Chronic pain syndrome: Plan right shoulder xray reviewed with pt, proceed with right shoulder injection with Dr Clark decrease percocet 5-325mg bid prn moderate to severe pain pt not interested in further consultation with Dr Loco or scs trial for low back pain continue HEP as tolerated f/u after injection
== END 2025-05-23 14:42 | disposition home or self-care (01) ==
LOC: PM 14:42
PROVIDERS: PCP Family Medicine; Visit Provider Nurse Practitioner
DX: M25.511 Pain in right shoulder (principal); M19.011 Primary osteoarthritis, right shoulder; M47.816 Spondylosis without myelopathy or radiculopathy, lumbar region; M51.369 Other intervertebral disc degeneration, lumbar region without mention of lumbar back pain or lower extremity pain; Z79.891 Long term (current) use of opiate analgesic; M62.838 Other muscle spasm; M46.1 Sacroiliitis, not elsewhere classified; G89.4 Chronic pain syndrome
CPT/HCPCS: G0463

== ENCOUNTER 2025-06-10 14:55 | Outpatient (OUT) | payer BC, SELFPAY ==
--- OUTSIDE RECORDS SUMMARY | 2025-06-10 14:58 | XMS_ITS | Clinical Summary ---
Author Organization [facility] Address [address] [place] [address] Phone Care Team Providers Care Children'S Tutor Name Role Phone Jaymie Haas MD Primary Care Provider [phone] Allergies Active AllergyReactionsCriticalityNoted DejlKypdhddjHdivaxouilAuesr27/02/2017 TramadolNausea And Vomiting,SbikjsnIxp28/10/2016 Medications MedicationSigDispense QuantityRefillsLast FilledStart DateEnd DateStatus magnesium oxide 500 mg magnesium tablet Take 1 tablet (500 mg) by mouth once daily.11/29/2022ctive diclofenac (Voltaren) 50 mg EC tablet Take 1 tablet (50 mg) by mouth 2 times a day.Active gabapentin (Neurontin) 300 mg capsule Take 1 capsule (300 mg) by mouth once daily at bedtime.10/27/2023ctive lisinopril 20 mg tablet Take 1 tablet (20 mg) by mouth once daily.Active metoprolol succinate XL (Toprol-XL) 25 mg 24 hr tablet Take 1 tablet (25 mg) by mouth once daily.11/15/2023ctive simvastatin (Zocor) 20 mg tablet Take 1 tablet (20 mg) by mouth once daily.Active traZODone (Desyrel) 50 mg tablet Take 1 tablet (50 mg) by mouth once daily at bedtime.Active tiZANidine (Zanaflex) 4 mg tablet Take 1 tablet (4 mg) by mouth 3 times a day.Active cetirizine (ZyrTEC) 10 mg tablet Take 1 tablet (10 mg) by mouth every 12 hours.Active glucosamine/chondr langford A sod (OSTEO BI-FLEX ORAL) Take 1 tablet by mouth 2 times a day.Active multivitamin tablet Take 1 tablet by mouth once daily.Active cholecalciferol (Vitamin D-3) 5,000 Units tablet Take 1 tablet (5,000 Units) by mouth once daily.Active cyclobenzaprine (Flexeril) 10 mg tablet Indications:Pelvic painTake 1 tablet (10 mg) by mouth 3 times a day as needed for muscle spasms for up to 7 days. 21 tablet 12/14/2023ctive ondansetron (Zofran) 4 mg tablet Indications:Pelvic painTake 2 tablets (8 mg) by mouth every 8 hours if needed for nausea or vomiting for up to 15 doses. 15 tablet 12/14/2023ctive acetaminophen (TylenoL) 325 mg tablet Indications:Pelvic painTake 2 tablets (650 mg) by mouth every 6 hours if needed for mild pain (1 - 3) for up to 30 doses. 30 tablet 12/14/2023ctive Active Problems ProblemNoted DateDiagnosed DateHTN (hypertension)12/08/2023Hyperlipidemia 12/08/20239265Ajcand34/02/1269Scrdbga92/02/2024ilateral hip pain11/30/2023Lumbar pain11/30/2023Scrotum pain11/30/2023elvic pain11/30/2023Lumbar radiculopathy 02/19/2021umbar swaryooprlx97/15/2021ciatica, left side11/20/2020ontact with and (suspected) exposure to covid-19008/26/2020 Immunizations ImmunizationAdministration DatesNext DueTd vaccine, age 7 years and older (TENIVAC)08/25/2015Tdap vaccine, age 7 year and older (BOOSTRIX, ADACEL) 09/16/2023 Family History Medical HistoryRelationNameCommentsCancerPaternal GrandfatherEdward Didion DiabetesPaternal GrandmotherEsther DidionRelationNameStatusCommentsPaternal GrandfatherEdward DidionPaternal GrandmotherEsther Didion Social History Tobacco UseTypesPacks/DayYears UsedDateSmoking Tobacco: NeverSmokeless Tobacco: Never Tobacco Cessation:Counseling Given: Not Answered Alcohol UseStandard Drinks/WeekCommentsNot Currently0 (1 standard drink = 0.6 oz pure alcohol)[facility] UtilitiesAnswerDate RecordedIn the past 12 months has the electric, gas, oil, or water company threatened to shut off services in your home?No12/11/2023UDIT-CAnswerDate RecordedQ1: How often do you have a drink containing alcohol?Never12/08/2023Q2: How many drinks containing alcohol do you have on a typical day when you are drinking?Patient does not drink12/08/2023Q3: How often do you have six or more drinks on one occasion?Never12/08/2023Overall Financial Resource Strain (CARDIA)AnswerDate RecordedHow hard is it for you to pay for the very basics like food, housing, medical care, and heating?Not hard at all12/08/2023HQ-2AnswerDate RecordedPatient Health Questionnaire-2 Score0 02/29/2024[facility] - Occupational Stress QuestionnaireAnswerDate RecordedDo you feel stress - tense, restless, nervous, or anxious, or unable to sleep at night because yourmind is troubled all the time - these days?Not at all12/08/2023Exercise Vital SignAnswerDate RecordedOn average, how many days per week do you engage in moderate to strenuous exercise (like a brisk walk)?3 days12/08/2023On average, how many minutes do you engage in exercise at this level?30 min12/08/2023Hunger Vital SignAnswerDate Recorded Within the past 12 months, you worried that your food would run out before you got the money to buymore.Never true12/08/2023Within the past 12 months, the food you bought just didn't last and you didn't have money to get more.Never true 12/08/2023RAPARE - TransportationAnswerDate RecordedIn the past 12 months, has lack of transportation kept you from medical appointments or from getting medications?No12/08/2023In the past 12 months, has lack of transportation kept you from meetings, work, or from getting things needed for daily living?No 12/08/2023Housing Stability Vital SignAnswerDate RecordedIn the last 12 months, was there a time when you were not able to pay the mortgage or rent on time?No 12/11/2023In the last 12 months, how many places have you lived?In the last 12 months, was there a time when you did not have a steady place to sleep or slept in [place] (including now)?No12/11/2023Sex and Gender InformationValueDate RecordedSex Assigned at EnjmtIjkl28/24/2024 9:24 PM EDT Legal WfvEmay5611/04/2023 11:58 AM EDTGender GvtwngfaUltv64/24/2024 9:24 PM EDT Sexual QnmemxlybhhEoowdkdc77/24/2024 9:24 PM EDT Last Filed Vital Signs Vital SignReadingTime TakenCommentsBlood Ewsuzsng750/8005 8:13 AM EDT Zwzde834412/21/2023 8:13 AM LMFGsryrwlytvc43.4 ??C (97.5 ??F)12/21/2023 8:13 AM EDTRespiratory Cuvw902012/21/2023 8:13 AM EDTOxygen Fmqgiwluuq06%12/21/2023 8:13 AM EDTInhaled Oxygen Concentration--Bgkgzz784 kg (277 lb 12.5 oz)12/11/2023 8:33 AM QACLxvwtz469.3 cm (5' 10.98 )12/11/2023 8:33 AM EDTBody Mass Index38.76 12/11/2023 8:33 AM EDT Plan of Treatment Health MaintenanceDue DateLast DoneCommentsCT Bwfnjsubqoep18/05/1976Colonoscopy 1975Colorectal Cancer Tzwvbqppi57/05/1976FIT-DNA (Cologuard)1975FIT 1975HIV Klgfbfyue83/05/1976Lipid Panel1975 9250Pyyqphulqgqdn70/05/1976 Yearly Adult Vqdnkytq25/05/1976MMR Vaccines (1 of 1 - Standard series)1976 Hepatitis C Lfqvycqzs59/05/1994Hepatitis B Vaccines (1 of 3 - 19+ 3-dose series) 1994Pneumococcal Vaccine: Pediatrics and At-Risk Adult Patients (1 of 2 - PCV)1994Influenza Vaccine (#1)COVID-19 Vaccine (4 - season)/, 10/17/2021, 09/19/2021Zoster Vaccines (1 of 2)2025Diabetes Ktwyqvbqj58/03/2024, 12/13/2023, 12/12/2023, Additional history existsDTaP/Tdap/Td Vaccines (2 - Td or Tdap)09/16/2033 09/16/2023, 08/25/2015, 08/25/2015HIB VaccinesAged OutNo longer eligible based on patient's age to complete this topicHPV VaccinesAged OutNo longer eligible based on patient's age to complete this topicHepatitis A VaccinesAged OutNo longer eligible based on patient's age to complete this topicIPV VaccinesAged OutNo longer eligible based on patient's age to complete this topicMeningococcal VaccineAged OutNo longer eligible based on patient's age to complete this topic Rotavirus VaccinesAged OutNo longer eligible based on patient's age to complete this topic Medical Devices ImplantedTypeAreaManufacturerDevice IdentifierShelf Expiration DateModel / Serial / LotAllograft, Gabriel 5.5cc - [id number] - [id number] Implanted:Qty: 1 on 12/08/2023 [facility]: AcetabulumROYAL FDBNGKKYM10/07/2024MG-5 / [id number] / Power Mix, Mini Ingite, 4cc - [id number] - [id number] Implanted:Qty: 1 on 12/08/2023 [facility]ImplantN/A: AcetabulumWR[employer] MEDICAL [employer]CHN[employer] [id number] / [id number] / [id number] Elite Implant Kit 81b64xc 2 Legs Implanted:Qty: 1 on 12/08/2023 [facility]plantN/A: [id number] / NA / [id number]:Per oracle jdr 5/3Screw, Cortical, Self-Tapping, 3.5 X 32 Mm, Stainless Steel - [id number] Implanted:Qty: 1 on 12/08/2023 [facility]/A: XfdhuxtlbxBXLKFZJ829.832 / / Screw, 7.3mm Geoff, Full Thread, 165mm, Sterile - [id number] Implanted:Qty: 1 on 12/08/2023 by [facility]/A: AphlapQDNCRLE51/31/1144223.765S / / [id number], 7.3mm Geoff, Full Thread, 145mm, Sterile - [id number] Implanted:Qty: 1 on 12/08/2023 by [facility]wN/A: GpnnfoYHQDNWG70/31/[id number] / / [id number], Cortical, Self-Tapping, 3.5 X 36 Mm, Stainless Steel - [id number] Implanted:Qty: 1 on 12/08/2023 by [facility]/A: XgrjiuatjyHDXUACA213.836 / / Plate, 3.5 X 6h Pubic Symphysis - Sna - [id number] Implanted:Qty: 1 on 12/08/2023 by [facility]/A: KgutdhXEOUCTP05/02/823206.100.006 / NA / Screw, Cortical, Self-Tapping, 3.5 X 30 Mm, Stainless Steel - Sna - [id number] Implanted:Qty: 1 on 12/08/2023 by [facility]N/A: TvsptzPTHJENR77/02/2705315.830 / NA / Screw, Cortical, Self-Tapping, 3.5 X 24 Mm, Stainless Steel - Sna - [id number] Implanted:Qty: 1 on 12/08/2023 by [facility]wN/A: YdkazyHBJBXMP00/02/2024204.824 / NA / Screw Cortex 3.5 X 70 - Sna - [id number] Implanted:Qty: 2 on 12/08/2023 by [facility]wN/A: VciztmWKGJEYD64/02/2024204.870 / NA / Screw, Cortical, Self-Tapping, 3.5 X 34 Mm, Stainless Steel - Sna - [id number] Implanted:Qty: 1 on 12/08/2023 by [facility]/A: EypralBGCRSVY64/02/2024204.834 / NA / Screw, Cortical, Self-Tapping, 3.5 X 75 Mm, Stainless Steel - Sna - [id number] Implanted:Qty: 2 on 12/08/2023 by [facility]wN/A: JqfhloKPXNRIL62/02/2024204.875 / NA / Washer, F/Large Screws, 13 Mm, Stainless Steel - [id number] Implanted:Qty: 2 on 12/08/2023 by [facility]wN/A: SznvnwwyfzLOKRNHK728.99 / / Procedures Procedure NamePriorityDate/TimeAssociated DiagnosisCommentsBASIC METABOLIC PANEL Jxcooxt1712/14/2023 6:41 AM EDT from Last 3 Months or Most Recently Relevant to Health Maintenance Results * (ABNORMAL) Basic metabolic panel (12/14/2023 6:41 AM EDT)ComponentValueRef RangeTest MethodAnalysis TimePerformed AtPathologist OmubqsbvrUnfdjar955(H)74 - 99 mg/dL LAB CHEMISTRY METHOD 12/14/2023 7:[facility] VMNXevxul791064 - 145 mmol/L LAB CHEMISTRY METHOD 12/14/2023 7:45 [facility] LABPotassium3.63.5 - 5.3 mmol/L LAB CHEMISTRY METHOD 12/14/2023 7:45 AM [facility] MYELanqruqk34970 - 107 mmol/L LAB CHEMISTRY METHOD 12/14/2023 7:45 AM [facility] RZUYrewbxpjkxe5392 - 32 mmol/L LAB CHEMISTRY METHOD 12/14/2023 7:45 AM [facility] LABAnion Irp8005 - 20 mmol/L LAB CHEMISTRY METHOD 12/14/2023 7:45 AM [facility] LABUrea Lokbwgyi151 - 23 mg/dL LAB CHEMISTRY METHOD 12/14/2023 7:45 AM [facility] LABCreatinine0.820.50 - 1.30 mg/dL LAB CHEMISTRY METHOD 12/14/2023 7:45 AM [facility] LABeGFR>90>60 mL/min/1.73m*2 LAB CHEMISTRY METHOD 12/14/2023 7:45 AM [facility] LABComment: Calculations of estimated GFR are performed using the 2020 CKD-EPI Study Refit equation without therace variable for the IDMS-Traceable creatinine methods. https://jasn.asnjournals.org/content//ASN.5669599988 Calcium8.3(L)8.6 - 10.6 mg/dL LAB CHEMISTRY METHOD 12/14/2023 7:45 AM [facility] LABSpecimen (Source)Anatomical Location / Laterality Collection Method / VolumeCollection TimeReceived TimeBloodVenous blood specimen / UnknownVenipuncture / Ajgzqso1512/14/2023 6:41 AM EDT12/14/2023 7:12 AM EDT Narrative Authorizing ProviderResult TypeResult StatusJodarrius ODOM BLOOD ORDERABLESFinal ResultPerforming OrganizationAddressCity/State/ZIP CodePhone Number [facility] [address] [place], [place] [address] from Last 3 Months or Most Recently Relevant to Health Maintenance Insurance Advance Directives For more information, please contact: [phone] (Available ) * Full Code (Latest Code Status on File) Date ActivatedDate InactivatedComedward p. [facility]12/08/2023 8:25 AMQuestionAnswerCommentsPlan of Care:* Code Status Discussion Completed Decision Maker:* Patient Care Teams Team MemberRelationshipSpecialtyStart DateEnd Date Jaymie Haas MD PCP - GeneralFamily Medicine12/05/23
--- OUTSIDE RECORDS SUMMARY | 2025-06-10 14:58 | XMS_ITS | Clinical Summary ---
Author Organization [facility] Address [address], [address] [place] [address] Care Team Providers Care Tape Librarian Name Role Phone Jaymie Haas MD Primary Care Provider [phone] Allergies Active AllergyReactionsCriticalityNoted OmbbBzqpmjhfYieavlutar89/02/2017Tramadol Nausea And McejtjjiEpq06/15/2021 Medications MedicationSigDispense QuantityRefillsLast FilledStart DateEnd DateStatus lisinopril (PRINIVIL;ZESTRIL) 10 MG tablet Take 10 mg by mouth dailyActive simvastatin (ZOCOR) 20 MG tablet Take 20 mg by mouth nightlyActive meloxicam (MOBIC) 15 MG tablet TAKE 1 TABLET BY MOUTH EVERY DAY11/16/2020ctive tiZANidine (ZANAFLEX) 4 MG tablet TAKE 1 TABLET BY MOUTH 3 TIMES A DAY PVLBHG3011/20/2020ctive gabapentin (NEURONTIN) 100 MG capsule TAKE 2 PILLS THREE TIMES PER DAY 180 capsule 02/27/2021ctive Active Problems ProblemNoted DateDiagnosed DateLumbar bkauunuurgbgn51/15/2021umbar spondylosis 02/19/2021ciatica, left side11/20/2020ontact with and (suspected) exposure to covid- Family History Medical HistoryRelationNameCommentsCancerFatherDiabetesFatherArthritisMother DiabetesMotherRelationNameStatusCommentsFatherMother Social History Tobacco UseTypesPacks/DayYears UsedDateSmoking Tobacco: NeverSmokeless Tobacco: NeverSex and Gender InformationValueDate RecordedSex Assigned at BirthMale 03/09/2021 8:38 PM EDTLegal XtlKvrq8109/17/2012 10:57 AM ESTGender IdentityMale 03/09/2021 8:38 PM EDTSexual TmcbussvyqoQmqeafih87/02/2021 8:38 PM EDT Last Filed Vital Signs Vital SignReadingTime TakenCommentsBlood Jscnoznh341/90002/25/2021 2:30 PM EDT Oqyow628302/25/2021 2:30 PM DNMEmwikzstlva09.1 ??C (96.9 ??F)02/27/2021 9:03 AM EDTRespiratory Hgyw682502/25/2021 2:30 PM EDTOxygen Hfxizztchy90%02/25/2021 2:30 PM EDTInhaled Oxygen Concentration--Dditaa471.9 kg (260 lb)02/27/2021 9:03 AM QYDGbvzqk172.3 cm (5' 11 )02/27/2021 9:03 AM EDTBody Mass Index36.26002/27/2021 9:03 AM EDT Plan of Treatment Not on file Insurance Care Teams Team MemberRelationshipSpecialtyStart DateEnd Date Jaymie Haas MD [address] [place] [address] PCP - GeneralFamily Medicine01/30/21
--- OUTSIDE RECORDS SUMMARY | 2025-06-10 14:58 | XMS_ITS | Patient Health Record ---
Author Organization [facility] Address [address] [place] [address] Care Team Providers Care Custom Feed Mill Operator Name Role Phone Seng Paez [phone] Allergies Allergen (clinical drug ingredient) Drug/Non Drug Allergy documented on EMR Reaction Allergy Type Onset Date Status nubain (uncoded)UnknownAllergyActive Reason For Referral No Information Social History Tobacco Use: Social History Observation Description Date Details (start date - stop date) Never Smoker NA - NA Smoking History Question Answer Notes Smoking Status NonSmoker Alcohol Screening Question Answer Notes Did you have a drink containging alcohol in the last year? Yes Owfocj1SmrstmizsqspnmQbhlrsifOwt often did you have six or more drinks on one occasion?Never (0 points)How many drinks did you have on a typical day when you were drinking in the last year?1 or 2 (0 points)How often did you have a drink containing alcohol in the last year?Monthly or less (1 point) Plan Of Treatment No Information Insurance Providers Payer Name Payer Address Payer Phone Subscriber Number Group Number Insured Name Patient Relationship to Insured Coverage Start Date Coverage End Date [address] [place] [address] [id number] SUSHILA YATES Self - patient is the insured Medical (General) History Medical History History ICD Code Chronic back pain:: Yes CPAP Machine:: NoHealthcare worker: NoLatex Allergy: NoHave you been in close contact with someone who has had MRSA within the last year?: NoHave you ever had or presently have MRSA?: NoHave you been seen by a dentist in the last year?: YesDo you have any dental problems i.e. Broken, loose, or chipped teeth, absess, gum disease?: No
--- OUTSIDE RECORDS SUMMARY | 2025-06-10 14:58 | XMS_ITS | Clinical Summary ---
Author Organization [facility] Address [address] [place] [address] Care Team Providers Care Professor Of Surgery Name Role Phone Jaymie Haas MD Primary Care Provider [phone] Allergies Active AllergyReactionsCriticalityNoted QenqZetqcpjgCwssdoqccdPdjbv64/02/2017 TramadolNausea And Vomiting,LmqtbksQju81/10/2016 Medications MedicationSigDispense QuantityRefillsLast FilledStart DateEnd DateStatus metoprolol succinate XL (Toprol-XL) 25 mg 24 hr tablet Take 25 mg by mouth in the morning.Active lisinopril 20 mg tablet Take 20 mg by mouth in the morning.Active simvastatin (Zocor) 20 mg tablet Take 20 mg by mouth in the morning.Active baclofen (Lioresal) 10 mg tablet Take 1 tablet by mouth every 6 (six) hours during the day.07/30/2024ctive diclofenac (Voltaren) 50 mg EC tablet Take 50 mg by mouth in the morning and at bedtime.Active oxyCODONE-acetaminophen (Percocet) 5-325 mg tablet TAKE 1 TABLET BY MOUTH THREE TIMES A DAY NEEDED FOR PAIN *DNF 08/03/24*Active cetirizine (ZyrTEC) 10 mg tablet 10 mg.11/29/2022ctive glucosamine/chondr langford A sod (OSTEO BI-FLEX ORAL) Take 1 tablet by mouth twice a day.Active cholecalciferol (D3-5) 5,000 Units tablet in the morning.11/29/2022ctive multivit with minerals/lutein (MULTIVITAMIN 50 PLUS ORAL) 1 tablet.11/29/2022ctive Active Problems ProblemNoted DateDiagnosed DateFamily history of colon cancer requiring screening igbrotnhdzr52/31/2024Fracture of left xvdpnz1508/07/2024Sacroiliac joint dysfunction of both sides08/07/2024Traumatic separation of pubic symphysis 08/07/20242396Vajeil12/02/2024HTN (hypertension)12/08/20232022Hgvpxilhthltec43/02/2024 Bnacijz3412/08/2023ilateral hip pain11/30/2023elvic pain11/30/2023Lumbar pain 11/30/2023Scrotum pain11/30/2023Lumbar amcqsfvqvmkts79/15/2021umbar spondylosis 02/19/2021ciatica, left side11/20/2020ontact with and (suspected) exposure to covid-19008/26/2020 Family History Medical HistoryRelationNameCommentsCancerFatherDennis L DidionCancerPaternal GrandfatherEdward DidionRelationNameStatusCommentsFatherDennis L DidionPaternal GrandfatherEdward Didion Social History Tobacco UseTypesPacks/DayYears UsedDateSmoking Tobacco: NeverSmokeless Tobacco: Never Tobacco Cessation:Counseling Given: Not Answered Alcohol UseStandard Drinks/WeekCommentsNever0 (1 standard drink = 0.6 oz pure alcohol)Humiliation, Afraid, Rape, and Kick questionnaireAnswerDate Recorded Within the last year, have you been afraid of your partner or ex-partner?Patient unable to yeteds1408/07/2024Emotionally AbusedNot on file08/07/2024hysically AbusedNot on file08/07/2024Sexually AbusedNot on file08/07/2024HQ-2AnswerDate RecordedPatient Health Questionnaire-2 Lycnq528Sex and Gender InformationValueDate RecordedSex Assigned at BirthNot on fileLegal SexMale 06/22/2024 11:36 AM ESTGender IdentityNot on fileSexual OrientationNot on file Last Filed Vital Signs Vital SignReadingTime TakenCommentsBlood Okqxbzxi979/7808/07/2024 1:36 PM EST Wnofm368008/07/2024 1:36 PM AJOCebxnnhktdy67.8 ??C (98.2 ??F)08/07/2024 1:36 PM ESTRespiratory Rate--Oxygen Saturation--Inhaled Oxygen Concentration--Hhvzru769 kg (240 lb)08/07/2024 1:36 PM DXYMorstc475.9 cm (6')08/07/2024 1:36 PM ESTBody Mass Index32.5508/07/2024 1:36 PM EST Plan of Treatment Health MaintenanceDue DateLast DoneCommentsCT Uolkqebngjjh95/05/1976Colonoscopy 1975Colorectal Cancer Aivpscnoj24/05/1976FIT-DNA1975FIT1975 FOBT1975 3982Uaaavuvutrgrb72/05/1976Hepatitis B Vaccines (1 of 3 - 19+ 3-dose series)1994Pneumococcal Vaccine: Pediatrics (0 to 5 Years) and At-Risk Patients (6 to 64 Years) (1 of 2 - PCV)1994COVID-19 Vaccine (4 - season)/, 10/17/2021, 09/19/2021Influenza Vaccine (#1) /Depression Aqfvikhhi18Zoster Vaccines (1 of 2)2025dult Yhxbdhk03/04/2024, 08/25/2015HIB VaccinesAged Out No longer eligible based on patient's age to complete this topicHPV VaccinesAged OutNo longer eligible based on patient's age to complete this topicIPV Vaccines Aged OutNo longer eligible based on patient's age to complete this topic Meningococcal B VaccineAged OutNo longer eligible based on patient's age to complete this topicMeningococcal VaccineAged OutNo longer eligible based on patient's age to complete this topicRotavirus VaccinesAged OutNo longer eligible based on patient's age to complete this topic Insurance Care Teams Team MemberRelationshipSpecialtyStart DateEnd Date Jaymie Haas MD [facility] [place] [address] PCP - Zlqhiow35/15/24
--- OUTSIDE RECORDS SUMMARY | 2025-06-10 14:58 | XMS_ITS | Clinical Summary ---
Author Organization [facility] Address [address] [place] [address] Care Team Providers Care Outdoor Recreation Specialist Name Role Phone Jaymie Haas MD Primary Care Provider [phone] Rolo Thornton DO Unavailable [phone] Allergies Active AllergyReactionsCriticalityNoted AfnuXbiqlimcHowquhwutuZudhc83/02/2017 TramadolNausea And DkraqnxuTgk83/10/2016 Other Reaction(s): Unknown Medications MedicationSigDispense QuantityRefillsLast FilledStart DateEnd DateStatus traZODone (Desyrel) 50 MG tablet Take 50 mg by mouth at bedtimeActive simvastatin (Zocor) 20 MG tablet Take 20 mg by mouth DailyActive sildenafil (Viagra) 50 MG tablet 5Active metoprolol succinate XL (Toprol-XL) 25 MG 24 hr tablet Take 25 mg by mouth DailyActive lisinopril 20 MG tablet Take 20 mg by mouth DailyActive diclofenac (Voltaren) 50 MG EC tablet Take 50 mg by mouth in the morning and 50 mg before bedtime.Active cetirizine (ZyrTEC) 10 MG tablet Take 10 mg by mouth every 12 (twelve) hoursActive cholecalciferol (Vitamin D-3) 125 MCG (5000 UT) tablet Take 5,000 Units by mouth in the morning.Active albuterol HFA 90 mcg/act inhaler 4Active gabapentin (Neurontin) 600 MG tablet Take 600 mg by mouth in the morning and 600 mg before bedtime.5Active oxyCODONE-acetaminophen (Percocet) 5-325 MG tablet TAKE 1 TABLET BY MOUTH THREE TIMES A DAY NEEDED FOR PAIN5Active baclofen (Lioresal) 10 MG tablet Take 10 mg by mouth in the morning and 10 mg in the evening and 10 mg before bedtime.5Active Fluticasone Propionate (Xhance) 93 MCG/ACT Exhaler Suspension Indications:Chronic sinusitis, unspecified location,Nasal polypAdminister 1 puff into affected nostril(s) in the morning and 1 puff before bedtime. Samples LOT # [id number] Exp 10/2025. 16 mL 5Active SUMAtriptan (Imitrex) 50 MG tablet 5Active azithromycin (Zithromax) 250 MG tablet Indications:Acute cough,Chest congestion,Mild intermittent asthmatic bronchitis with acute exacerbation (HCC)Take 1 tablet (250 mg) by mouth Daily Take 2 tabs on day 1 and 1 tab on days 2-5 then stop 6 tablet 5Active benzonatate (Tessalon Perles) 100 MG capsule Indications:Acute cough,Chest congestion,Mild intermittent asthmatic bronchitis with acute exacerbation (HCC)Take 1 capsule (100 mg) by mouth 3 (three) times a day as needed for cough Do not crush or chew. 21 capsule 5Active albuterol (2.5 MG/3ML) 0.083% nebulizer solution Indications:Acute cough,Chest congestion,Mild intermittent asthmatic bronchitis with acute exacerbation (HCC)Take 3 mL (2.5 mg) by nebulization every 6 (six) hours if needed for wheezing 75 mL 5Active omeprazole (PriLOSEC) [address] capsule Indications:Laryngopharyngeal reflux (LPR)TAKE 1 CAPSULE BY MOUTH IN THE MORNING. TAKE BEFORE MEALS 30 capsule 5Active Active Problems No known active problems Resolved Problems ProblemNoted DateDiagnosed DateResolved DateFamily history of colon cancer requiring screening lwowbpbxkrd85Fracture of left pelvis Sacroiliac joint dysfunction of both sides08/07/2024 11/13/2024Traumatic separation of pubic svbuicepl29sthma HTN (hypertension)Hyperlipidemia /03/20252654Rdwjyfo31ilateral hip pain11/30/2023 11/13/2024Lumbar painScrotum pain Sciatica, left side/ontact with and (suspected) exposure to covid-190 Encounters DateTypeDepartmentCare HuvjCheqhtwktld83/22/2025[facility] [address] [place] [id number] Rolo Thornton, DO Laryngopharyngeal reflux (LPR)03/28/2025[facility] [address] [place] [id number] Rolo Thornton, DO Laryngopharyngeal reflux (LPR)03/11/2025 3:55 PM EDTOffice Visit [facility] [address] [place] [address] Roxie Su, [employer] Acute cough (Primary Dx); Chest congestion; Mild intermittent asthmatic bronchitis with acute exacerbation (HCC)03/11/2025 Travelfrom Last 3 Months Immunizations ImmunizationAdministration DatesNext DueInfluenza, injectable, quadrivalent, preservative free05/23/2019Td (adult), 5 Lf tetanus toxoid, preservative free, xkjgwube07/18/3653Uhui40/09/2024 Social History Tobacco UseTypesPacks/DayYears UsedDateSmoking Tobacco: NeverSmokeless Tobacco: Never Tobacco Cessation:Counseling Given: Not Answered Alcohol UseStandard Drinks/WeekCommentsNot Currently0 (1 standard drink = 0.6 oz pure alcohol)Sex and Gender InformationValueDate RecordedSex Assigned at Not on fileLegal XjkEael7510/20/2022 6:44 PM EDTGender IdentityNot on fileSexual OrientationNot on file Last Filed Vital Signs Vital SignReadingTime TakenCommentsBlood Dhsiurxh771/8208 3:58 PM EDT Tuiqy0281 3:58 PM RTLNmjffbirpni30.4 ??C (97.6 ??F)03/11/2025 3:58 PM EDTRespiratory Njsl753203/11/2025 3:58 PM EDTOxygen Rcmyhzismh18%03/11/2025 3:58 PM EDTInhaled Oxygen Concentration--Zxlauj706 kg (231 lb)03/11/2025 3:58 PM EDT Cpzkoq430.9 cm (6')02/14/2025 3:14 PM EDTBody Mass Index31.33002/14/2025 3:14 PM EDT Plan of Treatment Health MaintenanceDue DateLast DoneCommentsCT Kjkdkhvejjhw34/05/1976Colonoscopy 1975Colorectal Cancer Zsaxljawv92/05/1976FIT-DNA1975FIT1975 FOBT1975 1379Hdpbpkbbbmqvi21/05/1976MMR Vaccines (1 of 1 - Standard series) 1976Hepatitis B Vaccines (1 of 3 - 19+ 3-dose series)1994 DTaP/Tdap/Td Vaccines (3 - Td or Tdap)/04/2024, 08/25/2015COVID-19 Vaccine ( - season)/, 10/17/2021, 09/19/2021 Influenza Vaccine (#1)HIB VaccinesAged OutNo longer eligible based on patient's [...] based on patient's age to complete this topicPneumococcal Vaccine: Pediatrics (0 to 5 Years) and At-Risk Patients (6 to 64 Years)Aged OutNo longer eligible based on patient's age to complete this topicRotavirus VaccinesAged OutNo longer eligible based on patient's age to complete this topic Insurance Care Teams Team MemberRelationshipSpecialtyStart DateEnd Date Jaymie Haas MD [address] [place] [id number] PCP - GeneralFamily Medicine11/13/24 Rolo Thornton DO [address] [place] [address] Otolaryngology11/13/24
--- OUTSIDE RECORDS SUMMARY | 2025-06-10 15:01 | XMS_ITS | CCD ---
Author Organization [facility] Care Team Providers Care Flight Instructor Name Role Phone Chantal Mart MD Primary [...] Unavailable Chantal Mart MD Primary Care Provider [phone] NAPORAADAM K Attending Unavailable CHANTAL MART Primary [...] Provider Chantal Mart MD Primary Care Provider Rolo Phoenix DO Unavailable NAPORA, ADAM K Referring Unavailable NAPORA, [...] Provider Chantal Mart MD Primary Care Provider Chantal Mart MD Attending Provider [phone] ROLO PHOENIX Attending Unavailable CHANTAL MART Referring Unavailable BINOBLE, ROLO Tellez Referring Unavailable LIZETT, ROLO Tellez Attending Unavailable CHANTAL MART Referring Unavailable LIZETT, ROLO Tellez Attending Unavailable LIZETT, ROLO Tellez Attending Unavailable TOM ZARATE Attending Unavailable Allergies Allergy ClassificationReported Allergen(s)Allergy TypeDate of OnsetReaction(s) FacilityNalbuphine (2 sources)NalbuphineDrug [id number] HealthOpioid Agonists (2 sources)traMADolDrug Logklch17-20-8767Dldywv And VomitingOhiohealth [facility]ering[facility] (15 sources)Nalbuphine; Translations: [Nubain]Drug Pofmtgi62-89-7960XM dropped [facility] (20 sources)traMADol; Translations: [TRAMADOL]Drug Xuupomb70-98-2869Pgbqkz And Vomiting, [facility] PubGame Other Comment on above:Onset Date: 05/17/2016 (6 sources)Nubain *ANALGESICS - OPIOID*Propensity to adverse reactionsUnknoResearch Medical Center PubGame Other (3 sources)Allergies ReconciledPropensity to adverse reactionsUnknoParkland Health Center PubGame Other (3 sources)patient allergy list reviewed by nurse or physiciaPropensity to adverse kyahragbc10-19-8122Axnyzms:[facility] PubGame Other (20 sources)Nalbuphine; Translations: [NALBUPHINE]Drug Dgjdinp79-95-8799GefymSelect [facility] (1 source)No Known Medication Allergies; Translations: [No Known Medication Allergies]Propensity to adverse reactions (disorder)[facility] (1 source)NalbuphineDrug Tiogakc88-49-1561[address] [facility] (1 source)traMADolDrug Rqsjdqz23-93-3845SxfqfexvkWilson [address] Hospital [facility] (1 source)ALLERGIES NOT ON FILE; Translations: [ALLERGIES NOT ON FILE]Propensity to adverse reactions (disorder)[facility] Medications Current Medications MedicationDrug Class(es)DatesSig (Normalized)Sig (Original)acetaminophen 325 mg oral tablet (10 sources)Start: 55-64-8158eind 2 tablets by mouth every six hours for pain acetaminophen (TylenoL) 325 mg tablet Indications: Pelvic pain Take 2 tablets (650 mg) by mouth every 6 hours if needed for mild pain (1 - 3) for up to 30 doses. 30 tablet 12/14/2023 ActiveStart: 24-18-2142wcen 1 tablet by mouth every four hours as ekoltf974 mg, oral, Every 4 hours PRN, pain mild (1-3), first line, Starting on [place] 12/08/23 at 1809, If ordered PRN for pain, nurse is permitted to administer this medication for higher pain scores based onpatient preference? Yesacetaminophen 325 mg / oxyCODONE hydrochloride 5 mg oral tablet (20 sources)Opioid AgonistStart: 26-19-2530ynqu 1 tablet by mouth three times daily as needed for painoxyCODONE-acetaminophen (Percocet) 5-325 MG tablet TAKE 1 TABLET BY MOUTH THREE TIMES A DAY NEEDED FOR PAIN 12/03/2024 ActiveStart: 11-29-2022 End: 79-91-6587xfym 1 tablet by mouth every six hours as needed for pain Oxycodone-Acetaminophen (Endocet) 5-325 mg tablet Discontinued 1 TAB PO Every 6 hours as needed forPain November 29, 2022 12:00am July 02, 2024 3:48pm End: 12-71-0731clrd 1 tablet by mouth three times daily as neededoxyCODONE- acetaminophen (Percocet) 5-325 mg tablet Take 1 tablet by mouth 3 times a day as needed. 12/21/2023 Discontinued (Stop Taking at Discharge)take 1 tablet by mouth every six hoursoxyCODONE-Acetaminophen 5-325 MG 1 tablet as needed Orally every 6 hrs Activealbuterol 0.83 mg/ml inhalation solution (20 sources)beta2-Adrenergic AgonistStart: 64-55-2093mbgdwftlr (2.5 MG/3ML) 0.083% nebulizer solution Indications: Acute cough , Chest congestion , Mild intermittent asthmatic bronchitis with acute exacerbation (HCC) Take 3 mL (2.5 mg) by nebulization every 6 (six) hours if needed for wheezing 75 mL 03/11/2025 ActiveStart: 48-65-0875tegf 3 mL by inhalation every six hours as needed Albuterol Sulfate 2.5 mg /3 mL (0.083 %) solution for nebulization Active 2.5 MG INHALATION Every 6hours September 24, 2024 1:00am FreeTextSi mL as needed Inhalation every 6 hrs; Note: Source Status: Taking; Provider: Barron Coon ( ) Complies with drug therapyStart: 81-08-0291eagacnagw HFA 90 mcg/act inhaler 05/08/2024 ActiveStart: 69-14-3634iigo 1 puff(s) by mouth every four hours as neededalbuterol HFA 90 mcg/act inhaler INHALE 1 PUFF BY MOUTH EVERY 4 HOURS NEEDED 05/08/2024 ActiveStart: 03-13-2024 End: 00-49-5808rkpz 1 puff(s) by inhalation every four hours as neededAlbuterol Sulfate 90 mcg/actuation HFA aerosol inhaler Active 0 .ROUTE .COMPLEX 8.5 May 08, 2024 8:34am INHALE 1 PUFF INTO THE LUNGS EVERY 4 HOURS NEEDED Complies with drug therapyStart: 03-13-2024 End: 49-13-1763cdmy 1 puff(s) by inhalation every four hours as neededAlbuterol Sulfate 90 mcg/actuation HFA aerosol inhaler Discontinued 1 PUFF INHALATION Every 4 hoursas needed March 13, 2024 12:00am March 13, 2024 9:50amStart: 99-38-9588bcgm 2 puff(s) by inhalation every six hours as needed for wheezing2 puff, inhalation, Every 6 hours PRN, wheezing, Starting on Tue12/09/23 at 1116, Shake well before use.Albuterol Sulfate (2.5 MG/3ML) 0.083% 3 mL as needed Inhalation every 6 hrs Activetake 1 puff(s) by inhalation every four hours as neededAlbuterol Sulfate HFA 108 (90 Base) MCG/ACT INHALE 1 PUFF INTO THE LUNGS EVERY 4 HOURS NEEDED for 30 ActiveAlbuterol Sulfate (2.5 MG/3ML) 0.083% 3 mL as needed Inhalation every 6 hrs Activetake 1 puff(s) by inhalation every four hours as neededAlbuterol Sulfate HFA 108 (90 Base) MCG/ACT INHALE 1 PUFF INTO THE LUNGS EVERY 4 HOURS NEEDED for 30 Activetake 1 puff(s) by inhalation every four hours as neededAlbuterol Sulfate HFA 108 (90 Base) MCG/ACT 1 puff as needed Inhalation every 4 hrs for 30 days Activeaspirin 81 mg delayed release oral tablet (5 sources)Platelet Aggregation Inhibitor, Nonsteroidal Anti-inflammatory Drug Start: 12-10-2023 End: 02-35-0125fery 1 tablet by mouth twice dailyaspirin 81 mg EC tablet Indications: Pelvic pain Take 1 tablet (81 mg) by mouth 2 times a day. 84 tablet 12/14/2023 01/25/2024 ActiveStart: 12-08-2023 End: 54-92-6005ribd 81 mg by mouth twice daily81 mg, oral, 2 times daily, First dose on [facility] 12/08/23 at 2100azithromycin 250 mg oral tablet (14 sources)Macrolide AntimicrobialStart: 54-51-5959nqvfymvvjoko (Zithromax) 250 MG tablet Indications: Acute cough , Chest congestion , Mild intermittent asthmatic bronchitis with acute exacerbation (HCC) Take 1 tablet (250 mg) by mouth Daily Take 2 tabs on day 1 and 1 tab on days 2-5 then stop 6 tablet 03/11/2025 ActiveStart: 09-26-2024 End: 87-58-9726Ibtmvdhohnpe 250 mg tablet Discontinued 0 PO .COMPLEX 6 October 15, 2024 11:59am November 30, 2024 8:31am For 250 mg dose pack: take 500 mg today (day 1), then 250 mg for 4 days (days 2-5) POStart: 40-63-5978Yxtklxrgfphq 250 MG as directed Orally 2 tabs po today, then 1 tab daily x 4 more days for 5 May, ActiveStart: 12-15-7809Dxexwvluzqiy 250 MG as directed Orally 2 tabs po today, then 1 tab daily x 4 more days for 5 December, Activebaclofen 10 mg oral tablet (15 sources)gamma-Aminobutyric Acid-ergic AgonistStart: 42-82-8084nvvf 1 tablet by mouth in the morning, then take 1 tablet by mouth in the evening, then take 1 tablet by mouth at bedtimebaclofen (Lioresal) 10 MG tablet Take 10 mg by mouth in the morning and 10 mg in the evening and 10mg before bedtime. 11/29/2024 Activebenzocaine 15 mg / menthol 3.6 mg oral lozenge (1 source)Standardized Chemical AllergenStart: lozenge, Mouth/Throat, Every 2 hour PRN, sore throat, Starting on Tue12/09/23 at 0739 benzonatate 100 mg oral capsule (2 sources)Non-narcotic AntitussiveStart: 45-39-9458rewc 1 capsule by mouth three times daily as needed for coughbenzonatate (Tessalon Perles) 100 MG capsule Indications: Acute cough , Chest congestion , Mild intermittent asthmatic bronchitis with acute exacerbation (HCC) Take 1 capsule (100 mg) by mouth 3 (three) times a day as needed for cough Do not crush or chew. 21 capsule 03/11/2025 Activebisacodyl 10 mg rectal suppository (1 source)Stimulant LaxativeStart: 04-98-8647odon 10 mg rectal route every twenty-four hours as dswaqf13 mg, rectal, Daily PRN, constipation, first line, Starting on 12/10/23 at 0723calcium carbonate 500 mg chewable tablet (1 source)Start: 31-47-8332ptbf 1000 mg by mouth four times daily as needed for gastroesophageal reflux disease1,000 mg, oral, 4 times daily PRN, heartburn, indigestion, Starting on 12/10/23 at 2201calcium carbonate 1500 mg / cholecalciferol 800 unt chewable tablet (3 sources)Vitamin DStart: 12-14-2023 End: 34-00-8040wsrlulw carbonate-vitamin D3 (Calcium 600 with Vitamin D3) 600 mg-10 mcg (400 unit) chewable tabletIndications: Pelvic pain Chew 1 tablet 2 times a day. 60 tablet 12/14/2023 01/13/2024 Activecetirizine hydrochloride 10 mg oral tablet (20 sources)Histamine-1 Receptor AntagonistStart: 32-12-6353cmlv 1 tablet by mouth twice dailyCetirizine 10 mg Tablet Active 10 MG PO Twice daily November 29, 2022 12:00am Complies with drug therapytake 1 tablet by mouth every twelve hours cetirizine (ZyrTEC) 10 MG tablet Take 10 mg by mouth every 12 (twelve) hours Activetake 1 tablet by mouth every twelve hourscetirizine (ZyrTEC) 10 mg tablet Take 1 tablet (10 mg) by mouth every 12 hours. Activecholecalciferol 0.025 mg oral tablet (20 sources)Vitamin DStart: 15-73-8471ndgl 5000 [IU] by mouth once daily5,000 Units, oral, Daily, First dose on [employer] 12/08/23 at 2100Start: 24-02-3167zfxn 1 tablet by mouth once dailyCholecalciferol (Vitamin D3) (Vitamin D3) 125 mcg (5,000 unit) Tablet Active 125 MCG PO Daily 2022 12:00am Complies with drug therapytake 1 tablet by mouth in the morningcholecalciferol (Vitamin D-3) 125 MCG (5000 UT) tablet Take 5,000 Units by mouth in the morning. Active take 1 tablet by mouth once dailycholecalciferol (Vitamin D-3) 5,000 Units tablet Take 1 tablet (5,000 Units) by mouth once daily. Activecyclobenzaprine hydrochloride 10 mg oral tablet (20 sources)Muscle RelaxantStart: 75-02-8771xbaa 1 tablet by mouth three times daily as needed for muscle spasmscyclobenzaprine (Flexeril) 10 mg tablet Indications: Pelvic pain Take 1 tablet (10 mg) by mouth 3 times a day as needed for muscle spasms for up to 7 days. 21 tablet 12/14/2023 ActiveStart: 09-17-2023 End: 20-86-7324uqgn 1 tablet by mouth three times daily as needed for pain cyclobenzaprine (Flexeril) 10 mg tablet TAKE 1 TABLET BY MOUTH THREE TIMES A DAY NEEDED FOR MUSCLE PAIN 09/17/2023 12/08/2023 Discontinued (Therapy completed)Start: 11-29-2022 End: 68-02-6490xptm 2 tablets by mouth at bedtimeCyclobenzaprine 10 mg tablet Discontinued 20 MG PO Bedtime November 29, 2022 12:00am June 19, 2024 3:15pmdiclofenac sodium 75 mg delayed release oral tablet (20 sources)Nonsteroidal Anti-inflammatory DrugStart: 18-00-0963hvgs 1 tablet by mouth twice dailyDiclofenac Sodium 75 mg tablet,delayed release (DR/EC) Active 75 MG PO Twice daily November 292:00am Complies with drug therapytake 1 tablet by mouth in the morningdiclofenac (Voltaren) 50 MG EC tablet Take 50 mg by mouth in the morning and 50 mg before bedtime. Activetake 1.5 tablets by mouth once dailyDiclofenac Potassium 50 MG 1.5 tabs Orally once a day Active diphenhydrAMINE hydrochloride 25 mg oral capsule (1 source)Histamine-1 Receptor AntagonistStart: 90-54-329470 mg, oral, Nightly PRN, sleep, If melatonin does not work, Starting on Tue12/12/23 at 0310docusate sodium 100 mg oral capsule (4 sources)Start: 12-08-2023 End: 96-60-6297mrzm 1 capsule by mouth twice dailydocusate sodium (Colace) 100 mg capsule Indications: Pelvic pain Take 1 capsule (100 mg) by mouth 2times a day. 60 capsule 12/14/2023 01/13/2024 Activefluticasone propionate 0.093 mg/actuat metered dose nasal spray (11 sources)CorticosteroidStart: 03-88-3255phll 1 puff(s) nasal route in the morningFluticasone Propionate (Xhance) 93 MCG/ACT Exhaler Suspension Indications: Chronic sinusitis, unspecified location , Nasal polyp Administer 1 puff into affected nostril(s) in the morning and 1 puff before bedtime. Samples LOT # [id number] Exp 10/2025. 16 mL 1 12/11/2024 ActiveStart: spray, Each Nostril, Daily, First dose on Tue12/14/23 at 2030, Shake gently. Before first use, prime pump (press 6 times until fine spray appears). After use, clean tip and replace cap.gabapentin 600 mg oral tablet (20 sources)Anti-epileptic AgentStart: 16-02-8304dtkv 1 tablet by mouth in the morninggabapentin (Neurontin) 600 MG tablet Take 600 mg by mouth in the morning and 600 mg before bedtime.12/05/2024 ActiveStart: 32-80-4602doae 1 capsule by mouth once daily at bedtimegabapentin (Neurontin) 300 mg capsule Take 1 capsule (300 mg) by mouth once daily at bedtime. 10/27/2023 ActiveStart: 01-30-2021 End: 06-69-9944nbskennhyt (NEURONTIN) 100 MG capsule TAKE 2 PILLS THREE TIMES PER DAY 180 capsule 0 01/30/2021 02/27/2021 Discontinued (REORDER) glucosamine/chondr langford A sod (OSTEO BI-FLEX ORAL) (9 sources)take 1 tablet by mouth twice dailyglucosamine/chondr langford A sod (OSTEO BI-FLEX ORAL) Take 1 tablet by mouth 2 times a day. Active1 ml HYDROmorphone hydrochloride 1 mg/ml cartridge (2 sources)Opioid AgonistStart: .2 mg, intravenous, Every 3 hours PRN, pain breakthrough, Starting on [place] 12/08/23 at 1810Start: 12-08-2023 End: .4 mg, intravenous, Every 5 min PRN, pain severe (7-10), first line, Starting on [place] 12/08/23 at 1441, Recovery (only), Max total of 4 mg regardless of dose.lisinopril 10 mg oral tablet (20 sources)Angiotensin Converting Enzyme InhibitorStart: 79-83-6437sgiz 1 tablet by mouth once dailyLisinopril 10 mg tablet Active 10 MG PO Daily December 27, 2024 1:57pm Complies with drug therapyStart: 11-15-2023 End: 51-49-6122ndhy 1 tablet by mouth once dailyLisinopril 20 mg tablet Discontinued 0 .ROUTE .COMPLEX November 08, 2024 9:40am December 27, 2024 1:57pm TAKE 1 TABLET BY MOUTH EVERY DAYStart: 11-29-2022 End: 82-31-4093ccwe 1 tablet by mouth once dailyLisinopril 20 mg tablet Discontinued 20 MG PO Daily November 29, 2022 12:00am November 15, 2023 8:41amtake 1 tablet by mouth once dailylisinopril (PRINIVIL;ZESTRIL) 10 MG tablet Take 10 mg by mouth daily 0 Activeloratadine 10 mg oral tablet (2 sources)Start: 16-63-0584rmyi 10 mg by mouth twice daily10 mg, oral, 2 times daily, First dose (after last modification) on Tue12/14/23 at 2115Start: 12-13-2023 End: 34-36-3242dymt 10 mg by mouth once daily10 mg, oral, Daily, First dose on Tue12/13/23 at 2145magnesium oxide 500 mg oral tablet (11 sources)Start: 97-18-2377fkum 1 tablet by mouth once dailymagnesium oxide 500 mg magnesium tablet Take 1 tablet (500 mg) by mouth once daily. 11/29/2022 Activemeclizine hydrochloride 12.5 mg oral tablet (1 source)AntiemeticStart: 77-06-3321tuqg 1 tablet by mouth every eight hours as needed for dizzinessMeclizine HCl 12.5 MG 1 tablet as needed Orally every 8 hours as needed for dizziness, may cause sedation for 5 days Oct, Active melatonin 5 mg oral tablet (1 source)Start: 81-39-1040gzuf 5 mg by mouth once daily as needed for sleep5 mg, oral, Nightly PRN, sleep, Starting on Tue12/09/23 at 2318meloxicam 15 mg oral tablet (2 sources)Nonsteroidal Anti-inflammatory DrugStart: 00-55-2305lqzc 1 tablet by mouth once dailymeloxicam (MOBIC) 15 MG tablet TAKE 1 TABLET BY MOUTH EVERY DAY 0 11/16/2020 ActivemethylPREDNISolone (2 sources)CorticosteroidStart: 03-11-2025 End: 92-09-1518vpqberQFBXBSJzcznw (Medrol Dospak) 4 MG tablets Indications: Acute cough , Chest congestion , Mild intermittent asthmatic bronchitis with acute exacerbation (HCC) Follow schedule on package instructions 21 tablet 03/11/2025 03/18/2025 Activemultivitamin tablet (9 sources)take 1 tablet by mouth once dailymultivitamin tablet Take 1 tablet by mouth once daily. ActiveMultivitamin Tablet (5 sources)Start: 71-39-2961stmg 1 tablet by mouth once dailyMultivitamin Tablet Active 1 TAB PO Daily November 29, 2022 12:00am Complies with drug therapyStart: 79-66-4420ieqq 1 tablet by mouth once dailyMultivitamin Tablet Active 1 TAB PO Daily November 29, 2022 12:00amStart: 66-57-8717qoij 1 tablet by mouth once daily Multivitamin Tablet Active 1 TAB PO Daily November 28, 2022 11:00pmomeprazole 40 mg delayed release oral capsule (7 sources)Proton Pump InhibitorStart: 01-03-2025 End: 73-77-1185xgcz 1 capsule by mouth before mealtimeomeprazole (PriLOSEC) [address] capsule Indications: Laryngopharyngeal reflux (LPR) Take 1 capsule (40 mg) by mouth in the morning. Take before meals. Do not crush or chew. 30 capsule 2 01/03/2025 01/03/2026 ActiveoxyCODONE hydrochloride 5 mg oral tablet (3 sources)Opioid AgonistStart: 17-62-4085afqv 1 tablet by mouth every six hours as ypnrkv14 mg, oral, Every 6 hours PRN, pain severe (7-10), first line, Starting on [place] 12/08/23 at 1809, If ordered PRN for pain, nurse is permitted to administer this medication for higher pain scores based on patient preference? YesStart: 12-08-2023 End: 38-20-0033bhlp 1 tablet by mouth every six hoursoxyCODONE (Roxicodone) 5 mg immediate release tablet Indications: Pelvic pain , Acute postoperativepain Take 1 tablet (5 mg) by mouth every 6 hours for 7 days. 28 tablet 12/14/2023 12/21/2023 Activepantoprazole (1 source)Proton Pump InhibitorStart: 10-71-9789lonjdacpmvef (ProtoNix) EC tablet 40 mgphenol 14 mg/ml mucosal spray (1 source)Start: 43-42-6954prtr 1 spray(s) by mouth every two hours as needed1 spray, Mouth/Throat, Every 2 hour PRN, sore throat, Starting on [place] 12/11/23 at 1141, Instruct patient to spit out after 15 seconds.polyethylene glycol 3350 75789 mg powder for oral solution (1 source)Osmotic LaxativeStart: 24-60-657305 g, oral, Daily, First dose on Tue12/08/23 at 1830, Bowel Regimen - for prevention of constipation.predniSONE 20 mg oral tablet (6 sources)Start: 54-96-9897sxig 2 tablets by mouth every twenty-four hours predniSONE 20 MG 2 tablets Orally Once a day for 5 days Nov, Active Start: 25-01-3660izff 2 tablets by mouth every twenty-four hoursPromethazine (1 source)PhenothiazineStart: 44-37-3755xxrb 1 tablet by mouth every six hours as neededpromethazine (Phenergan) tablet 25 mgpromethazine (Phenergan) 12.5 mg in sodium chloride 0.9% 50 mL IV (1 source)Start: 94-56-6474mlko 12.5 mg intravenously every six hours as needed 12.5 mg, intravenous, Administer over 15 Minutes, Every 6 hours PRN, nausea/vomiting, first line, Starting on Tue12/11/23 at 2110sennosides, long term 8.6 mg oral tablet (1 source)Start: 43-85-6515slzd 1 tablet by mouth once daily8.6 mg (1 tablet), oral, Nightly, First dose on [facility] 12/08/23 at 2100sildenafil 100 mg oral tablet (20 sources)Phosphodiesterase 5 InhibitorStart: 01-14-2025 End: 29-80-7376Utwjbogutc 100 mg tablet Active 100 MG PO Daily as needed for sexual activity February 06, 2025 8:50am administer 30 minutes to 4 hours before activity Complies with drug therapyStart: 10-41-5608xcxxmjcqtv (Viagra) 50 MG tablet 08/11/2024 ActiveStart: 07-16-2024 End: 96-88-2204Ypnuvjrpek (Viagra) 50 mg tablet Discontinued 50 MG PO Daily as needed for sexual activity December 10, 2024 4:05pm January 14, 2025 8:32am administer 30 minutes to 4 hours before activitysimethicone 80 mg chewable tablet (1 source)Start: 18-67-9738pvkf 40 mg by mouth four times daily as vybxyt99 mg, oral, 4 times daily PRN, flatulence, Starting on Tue12/09/23 at 1319sodium chloride 0.111 meq/ml nasal spray (1 source)Start: 97-71-1330apoa 1 spray(s) nasal route four times daily as needed for congestion1 spray, Each Nostril, 4 times daily PRN, congestion, Starting on Tue12/13/23 at 1350SUMAtriptan 50 mg oral tablet (10 sources)Serotonin-1b and Serotonin-1d Receptor AgonistStart: 46-32-5857ivnq 1 tablet by mouth every two hours, then take 4 tablets by mouth every hour Sumatriptan Succinate 50 mg tablet Active 0 .ROUTE .COMPLEX January 29, 2025 12:42pm TAKE 1 TABLETBY MOUTH AT ONSET OF HEADACHE. MAY REPEAT IN 2 HOURS IF NO RELIEF. MAX 4 TABS/24 HOURS Complies with drug therapyStart: 12-27-2024 End: 12-59-6575PLUGwjbggvi (Imitrex) 50 MG tablet 12/27/2024 ActivetiZANidine 4 mg oral tablet (11 sources)Central alpha-2 Adrenergic AgonistStart: 99-47-7335itmj 1 tablet by mouth three times daily as neededtiZANidine (ZANAFLEX) 4 MG tablet TAKE 1 TABLET BY MOUTH 3 TIMES A DAY NEEDED 0 11/20/2020 ActivevalACYclovir 1000 mg oral tablet (11 sources)Herpesvirus Nucleoside Analog DNA Polymerase Inhibitor, Herpes Simplex Virus Nucleoside Analog DNA Polymerase Inhibitor, Herpes Zoster Virus Nucleoside Analog DNA Polymerase InhibitorStart: 09-03-2024 End: 85-58-5903Yzapnlivnjrf (Valtrex) 1 gram tablet Active 2000 MG PO Twice daily September 17, 2024 5:27pm Complies with drug therapytake 1 tablet by mouth twice dailyValtrex 1 GM 1 tab Orally bid for 1 days Active Completed/Discontinued Medications MedicationDrug Class(es)DatesSig (Normalized)Sig (Original)calcium chloride 0.0014 meq/ml / potassium chloride 0.004 meq/ml / sodium chloride 0.103 meq/ml / sodium lactate 0.028 meq/ml injectable solution (2 sources)Start: 12-11-2023 End: 14-97-6380bbod 75 mL intravenously every hour75 mL/hr, intravenous, Continuous, Starting on Tue12/11/23 at 0000Start: 12-08-2023 End: 67-56-2912rhwo 100 mL intravenously every teoy581 mL/hr, intravenous, Continuous, Starting on Tue12/08/23 at 1500, Recovery (only)ceFAZolin 2000 mg injection (1 source)Cephalosporin AntibacterialStart: 12-09-2023 End: 36-17-8394cnbg 2 g intravenously every eight hours2 g, intravenous, Administer over 30 Minutes, Every 8 hours, First dose on Tue12/09/23 at 0630, For 2 doses, premix bag, Dosing of this medication varies based on severity of illness. Does this patient have sepsis or concern for sepsis (probable or documented infection plus systemic manifestations of infection)? No, Suspected Indication (Select all that apply): Surgical Prophylaxisiopamidol (ISOVUE-M 200) 41 % injection (1 source)Start: 02-25-2021 End: 51-61-1936xkxtgrtqp (ISOVUE-M 200) 41 % xoxnvcijy05 ml lidocaine hydrochloride 20 mg/ml injection (1 source)Antiarrhythmic, Amide Local AnestheticStart: 02-25-2021 End: 07-28-2622epyvlykqr 2 % injectionMagnesium (5 sources)Start: 11-29-2022 End: 91-10-0728wlts 2 tablets by mouth once dailyMagnesium 250 mg Tablet Discontinued 500 MG PO Daily November 29, 2022 12:00am January 12, 2024 11:00am Start: 11-29-2022 End: 34-42-0737rmku 2 tablets by mouth once dailyMagnesium 250 mg Tablet Discontinued 500 MG PO Daily November 28, 2022 11:00pm January 12, 2024 10:00am24 hr metoprolol succinate 25 mg extended release oral tablet (20 sources)beta-Adrenergic BlockerStart: 07-77-3659fplg 1 tablet by mouth once dailymetoprolol succinate XL (Toprol-XL) 25 mg 24 hr tablet Take 1 tablet (25 mg) by mouth once daily. 11/15/2023 ActiveStart: 11-15-2023 End: 65-19-6289rrlt 1 tablet by mouth once dailyMetoprolol Succinate 25 mg tablet extended release 24 hr Discontinued 0 .ROUTE .COMPLEX 90 November 08, 2024 9:40am November 30, 2024 8:52am TAKE 1 TABLET BY MOUTH EVERY DAYStart: 11-29-2022 End: 84-31-4263mike 1 tablet by mouth once dailyMetoprolol Tartrate 25 mg Tablet Discontinued 25 MG PO Daily November 29, 2022 12:00am November 15, 2023 8:41am naproxen 500 mg oral tablet (1 source)Nonsteroidal Anti-inflammatory DrugStart: 09-17-2023 End: 52-11-0015hejh 1 tablet by mouth twice dailynaproxen (Naprosyn) 500 mg tablet Take 1 tablet (500 mg) by mouth 2 times a day. 09/17/2023 09/24/2023 Expiredondansetron 4 mg disintegrating oral tablet (15 sources)Serotonin-3 Receptor AntagonistStart: 09-26-2024 End: 34-80-4045mnfg 1 tablet by mouth every eight hours as needed for nausea and vomitingOndansetron 4 mg tablet,disintegrating Discontinued 4 MG PO Q8H as needed for nausea and vomiting September 26, 2024 1:00am November 30, 2024 8:32amStart: 59-40-3029vmquchyygkj (Zofran) 4 mg tablet Indications: Pelvic pain Take 2 tablets (8 mg) by mouth every 8 hours if needed for nausea or vomiting for up to 15 doses. 15 tablet 12/14/2023 ActiveStart: 83-99-9276bpil 1 tablet by mouth every eight hours as neededondansetron (Zofran) tablet 4 mgoxygen (O2) therapy (1 source)Start: 12-08-2023 End: 26-22-7803llgxbxlsbf, Continuous , First dose on Tue12/08/23 at 1500, Recovery (only), Device: NasalCannula, Rate in liters per minute: 2 LPM, Keep O2 Sat Above: 92%simvastatin 20 mg oral tablet (20 sources)HMG-CoA Reductase InhibitorStart: 84-60-1547zzkw 20 mg by mouth once daily20 mg, oral, Nightly, First dose on Tue12/08/23 at 2100Start: 11-15-2023 End: 36-33-5992ilxg 1 tablet by mouth once dailySimvastatin 20 mg tablet Discontinued 0 .ROUTE .COMPLEX 90 May 16, 2024 11:04am November 08, 2024 9:40am TAKE 1 TABLET BY MOUTH EVERY DAYStart: 11-29-2022 End: 84-10-3630hdrq 1 tablet by mouth at bedtimeSimvastatin 20 mg tablet Discontinued 20 MG PO Bedtime November 29, 2022 12:00am November 15, 2023 8:41am traZODone hydrochloride 50 mg oral tablet (20 sources)Serotonin Reuptake InhibitorStart: 12-19-2023 End: 84-48-6115eucl 1 tablet by mouth once daily at bedtimeTrazodone 50 mg tablet Discontinued 0 .ROUTE .COMPLEX 90 April 30, 2024 1:12pm November 05, 2024 9:13am TAKE 1 TABLET BY MOUTH EVERYDAY AT BEDTIMEStart: 07-26-2023 End: 53-44-6964ueyo 1 tablet by mouth once daily at bedtimeTrazodone 50 mg tablet Discontinued 50 MG PO Daily at bedtime October 24, 2023 4:41pm October 25, 2023 12:25pm undefined Problems Active Problems Problem ClassificationProblemDateDocumented DateEpisodic/ChronicAcute bronchitis (1 source)Acute bronchitis, unspecifiedEpisodicAnxiety disorders (14 sources)Generalized anxiety disorder; Translations: [Generalized anxiety disorder]Onset: 09-69-4590TcyvxtdTucgdw (20 sources)Reactive airways dysfunction syndrome; Translations: [Unspecified asthma, uncomplicated]Onset: 12-08-2023 Resolved: 88-89-961312092150-85-7821OwurhbrZmjpnpp obstructive pulmonary disease and bronchiectasis (3 sources)Acute exacerbation of chronic asthmatic bronchitis; Translations: [Chronic obstructive asthma, with(acute) exacerbation]Onset: 70-01-0182Fhaaqgr Chronic obstructive pulmonary disease and bronchiectasis (4 sources)Bronchitis, not specified as acute or chronic; Translations: [BRONCHITIS NOT SPEC ACUTE/CHRON]Onset: 24-21-4394ZonvemwdIbnedhlxhydfh of surgical procedures or medical care (8 sources)Headache following lumbar puncture; Translations: [Other reaction to spinal and lumbar puncture]62-24-8283JyebhptxUvvjetwhjh associated with dizziness or vertigo (3 sources)Benign paroxysmal vertigo, left ear; Translations: [Lightheadedness] EpisodicEsophageal disorders (2 sources)Laryngopharyngeal reflux; Translations: [Gastro-esophageal reflux disease without esophagitis]27-43-5516WsbkurxXpwpddry; including migraine (20 sources)Complicated migraine; Translations: [Migraine with aura, not intractable, without status migrainosus]ChronicJoint disorders and dislocations; trauma-related (3 sources)Traumatic arthropathy of the shoulder region; Translations: [Traumatic arthropathy, shoulder region]Onset: 52-19-7486WuecazjBnjiqfs and fatigue (19 sources)Fatigue; Translations: [Other fatigue]Onset: 50-15-9474Jannrucu Miscellaneous mental health disorders (5 sources)Primary insomnia; Translations: [Primary insomnia]Chronic Noninfectious gastroenteritis (15 sources)Acute gastroenteritis; Translations: [Noninfective gastroenteritis and colitis, unspecified]EpisodicNonspecific chest pain (6 sources)Chest pain, unspecified; Translations: [Chest pain at rest]Onset: 133040-06-0888DipqjpunGiedydvjsohajx (1 source)Unilateral primary osteoarthritis, left hip; Translations: [UNI PRIM OSTEOARTHRITIS LT HIP]Onset: 52-31-4963IyuohwbQazps acquired deformities (4 sources)Incompetence of nasal valve; 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] 23-05-3089RdirruauRymxk circulatory disease (13 sources)Elevated blood-pressure reading without diagnosis of hypertension; Translations: [Elevated blood-pressure reading, without diagnosis of hypertension]EpisodicOther circulatory disease (2 sources)Pulmonary congestion ; Translations: [Other specified symptoms and signs involving the circulatory and respiratory systems]32-40-8450LulwhpigFgidq connective tissue disease (4 sources)Cramp and spasm; Translations: [CRAMP AND SPASM]Onset: 09-16-2022 EpisodicOther connective tissue disease (5 sources)Other muscle spasm; Translations: [OTHER MUSCLE SPASM]Onset: 83-80-8507EnxystqcIylig fractures (1 source)Closed fracture dislocation of pelvis ; Translations: [Fracture of unspecified parts of lumbosacralspine and pelvis, subsequent encounter for fracture with routine healing]48-86-1036KluwhuysUvpvl fractures (3 sources)Fracture of unspecified parts of lumbosacral spine and pelvis, subsequent encounter for fracture with routine healing; Translations: [Aftercare for healing traumatic fracture of other bone]Onset: 33-23-2938RgxhgkwsApoea fractures (1 source)Fracture of unspecified parts of lumbosacral spine and pelvis, initial encounter for closed fracture; Translations: [Closed unspecified fracture of pelvis]95-22-3203HkstjcfxBdpku injuries and conditions due to external causes (3 sources)Injury of left lower leg; Translations: [Unspecified injury of left lower leg, initial encounter]EpisodicOther injuries and conditions due to external causes (6 sources)H/O: facial injury; Translations: [Personal history of other (healed) physical injury and trauma]16-93-6310QkbiamvuJpczi lower respiratory disease (2 sources)Cough; Translations: [Acute cough]63-65-1392MawsglowVcyvg nervous system disorders (1 source)Other chronic pain; Translations: [OTHER CHRONIC PAIN]Onset: 97-74-4211BprzgnwDvopx nervous system disorders (1 source)Acute postoperative pain; Translations: [Other acute postprocedural pain]58-26-1120PjxgbmhfDjfuw non-traumatic joint disorders (18 sources)Shoulder joint pain; Translations: [Pain in right shoulder]Onset: 41-46-6230LcvbvyqgVkeps nutritional; endocrine; and metabolic disorders (10 sources)Body mass index 30+ - obesity; Translations: [Obesity, unspecified] ChronicOther nutritional; endocrine; and metabolic disorders (6 sources)Obese class II; Translations: [Body mass index (BMI) 36.0-36.9, adult]ChronicOther nutritional; endocrine; and metabolic disorders (9 sources)Obese class I; Translations: [Body mass index 32.0-32.9, adult]Onset: 58-19-3666KmbjrjxZlnol nutritional; endocrine; and metabolic disorders (3 sources)Simple obesity ; Translations: [Other obesity due to excess calories] Onset: 03-00-7777MddeqpqOftqz skin disorders (14 sources)Other hypertrophic disorders of the skin; Translations: [Unspecified hypertrophic and atrophic conditions of skin]58-64-8048WkgksigjAlmnt skin disorders (3 sources)Hypertrophic condition of skin; Translations: [Other hypertrophic disorders of the skin]EpisodicOther skin disorders (5 sources)Skin tag; Translations: [Other hypertrophic disorders of the skin] 26-55-1509KrghdnqtZxbsk upper respiratory disease (12 sources)Rhinitis; Translations: [Chronic rhinitis]ChronicOther upper respiratory disease (3 sources)Seasonal allergic rhinitis; Translations: [Other seasonal allergic rhinitis]Onset: 75-76-3007HiferxcUychn upper respiratory disease (2 sources)Allergic rhinitis; Translations: [Allergic rhinitis, unspecified] 21-07-0106WsumebgCrpdt upper respiratory disease (6 sources)Polyp of nasal cavity and/or nasal sinus; Translations: [Nasal polyp, unspecified]30-15-5990FjtvbkzjGxpkf upper respiratory disease (6 sources)Deviated nasal septum; Translations: [Deviated nasal septum] 57-12-9885SvwmqzmlLosga upper respiratory disease (4 sources)Hypertrophy of nasal turbinates; Translations: [Hypertrophy of nasal turbinates]86-80-6403HjfkjxamGhqoi upper respiratory infections (20 sources)Chronic maxillary sinusitis; Translations: [Chronic maxillary sinusitis]Onset: 295942-62-0487IahydopArsdo upper respiratory infections (6 sources)Acute maxillary sinusitis; Translations: [Acute maxillary sinusitis, unspecified]95-99-8816MbvazifeMyyylo media and related conditions (3 sources)Non-suppurative otitis media; Translations: [Unspecified nonsuppurative otitis media, right ear]EpisodicResidual codes; unclassified (3 sources)Family history of malignant neoplasm of gastrointestinal tract; Translations: [Family history of malignant neoplasm of digestive organs]Episodic Residual codes; unclassified (4 sources)Family history of prostate cancer; Translations: [Family history of malignant neoplasm of prostate]46-29-8100SfhkzdppOpomwtjx codes; unclassified (2 sources)Family history of malignant neoplasm of prostate; Translations: [Family history of malignant neoplasm of prostate]86-90-2208RacessgeZvkevstavzv failure; insufficiency; arrest (adult) (12 sources)Chronic respiratory failure; Translations: [Chronic respiratory failure with hypoxia]ChronicSpondylosis; intervertebral disc disorders; other back problems (20 sources)Lumbar spondylosis; Translations: [Spondylosis without myelopathy or radiculopathy, lumbar region]Onset: 114010-55-4198FlyhvirPozahqo (16 sources)Syncope and collapse; Translations: [Syncope and collapse]Onset: 80-41-5498OucsjsemNiibihaycvmm (4 sources)LOW BACK PAIN, UNSPECIFIED; Translations: [LOW BACK PAIN, UNSPECIFIED]Onset: 96-33-3491Bsrlrlklxnfr (3 sources)History of disease caused by Severe acute respiratory syndrome coronavirus 2 (situation); Translations: [Personal history of COVID-19]Viral infection (9 sources)Viral infection, unspecified; Translations: [Recurrent herpes simplex labialis]EpisodicViral infection (3 sources)Disease caused by 2019-nCoV; Translations: [COVID-19] Past or Other Problems Problem ClassificationProblemDateDocumented DateEpisodic/ChronicAbdominal pain (20 sources)Generalized abdominal pain; Translations: [Generalized abdominal pain]Onset: 138113-32-5958ZyrcgxvfIwpdhymv reactions (3 sources)Contact dermatitis; Translations: [Contact dermatitis and other eczema, due to unspecified cause]Onset: 44-06-7222GrmrrrvePabwdhpfp infection; unspecified site (3 sources)Bacterial infectious disease; Translations: [Bacterial infection, unspecified, in conditions classified elsewhere and of unspecified site]Onset: 39-18-0292NaiavoqqIemjfozcbzqa of device; implant or graft (2 sources)Fracture of pelvis following insertion of orthopedic implant, joint prosthesis, or bone plate; Translations: [Fracture of pelvis following insertion of orthopedic implant, joint prosthesis, or bone plate]Onset: 05-23-2024 EpisodicDisorders of lipid metabolism (20 sources)Hyperlipidemia; Translations: [Hyperlipidemia, unspecified]Onset: 12-08-2023 Resolved: 249694-82-8377JeleescDlvpzcqlb hypertension (20 sources)Benign essential hypertension; Translations: [Essential hypertension, benign]Onset: 01-10-2019 Resolved: 845139-34-7050YlhijfaOjmcwnr on above:Problem List clean-up per request of Phys. EHR CmteFluid and electrolyte disorders (3 sources)Dehydration; Translations: [Dehydration]Onset: 52-60-1450Nxuoarje Headache; including migraine (3 sources)Cough headache syndrome; Translations: [Primary cough headache]Onset: 52-61-6850FcdjhpyoAezdbjauzgzfm and screening for infectious disease (20 sources)Contact with or exposure to other viral diseases; Translations: [Contact with and (suspected) exposure to covid-19]Onset: 08-26-2020 Resolved: 704794-40-7223VeudxvsmLsgmbpbdn (3 sources)Upper respiratory tract infection due to Influenza; Translations: [Influenza due to unidentified influenza virus with other respiratory manifestations]Onset: 76-69-4527GmbibwgeXjewv disorders and dislocations; trauma-related (18 sources)Traumatic pubic symphysis separation; Translations: [Traumatic rupture of symphysis pubis, initial encounter]Onset: 08-07-2024 Resolved: 102250-53-0918SpjgdnbwTdmazlk (3 sources)Tinea cruris; Translations: [Tinea cruris]Onset: 60-83-2255Uctntuvo Open wounds of extremities (3 sources)Open wound of hand except fingers without complication; Translations: [Open wound of hand except finger(s) alone, without mention of complication] Onset: 19-80-5851ChevqfqhPqsjg circulatory disease (2 sources)Elevated blood-pressure reading, without diagnosis of hypertension; Translations: [ELEVATED BP READING W/O DX HTN]Onset: 80-85-9199JihgjlxhTjdtf connective tissue disease (3 sources)Ganglion of joint; Translations: [Ganglion of joint]Onset: 01-10-2019 EpisodicOther connective tissue disease (3 sources)Cramp in limb; Translations: [Cramp of limb]Onset: 61-89-1291Xpwtunlu Other fractures (20 sources)Fracture of pelvis; Translations: [Fracture of unspecified parts of lumbosacral spine and pelvis, initial encounter for closed fracture]Onset: 08-07-2024 Resolved: 848760-10-5212IqdwosljThvgc lower respiratory disease (6 sources)Cough; Translations: [Cough, unspecified]Onset: 54-01-4797Urleyftc Other male genital disorders (20 sources)Pain in scrotum ; Translations: [Scrotal pain]Onset: 11-30-2023 Resolved: 028962-58-9488ApkqgiwhNoctb nervous system disorders (2 sources)Other acute postprocedural pain; Translations: [Other acute postprocedural pain]Onset: 64-48-1441BltfoqeuVssgu non-traumatic joint disorders (4 sources)Pain in left hip; Translations: [PAIN IN LEFT HIP]Onset: 04-20-2022 EpisodicOther non-traumatic joint disorders (3 sources)Arthralgia of the ankle and/or foot; Translations: [Pain in joint, ankle and foot]Onset: 42-46-6331ImlvutcvMltkf non-traumatic joint disorders (20 sources)Hip pain; Translations: [Pain in right hip]Onset: 11-30-2023 Resolved: 927504-33-9178PihpxqxoOqvfs nutritional; endocrine; and metabolic disorders (20 sources)Obesity; Translations: [Obesity, unspecified]Onset: 12-08-2023 Resolved: 538625-30-1273MmdctglFfffseho codes; unclassified (3 sources)Family history of diabetes mellitus; Translations: [Family history of diabetes mellitus]Onset: 04-98-5685AplnfzttTzuzrpch codes; unclassified (3 sources)C/O - a back symptom; Translations: [Other symptoms referable to back]Onset: 91-45-2280TvrpwjucIuxupwac codes; unclassified (3 sources)Insomnia; Translations: [Insomnia, unspecified]Onset: 08-02-2018 EpisodicResidual codes; unclassified (18 sources)Family history of cancer of colon; Translations: [Family history of malignant neoplasm of digestiveorgans]Onset: 08-07-2024 Resolved: 740919-59-2755JphkwgadYprpxhp on above:Problem List clean-up per request of Phys. EHR CmteSpondylosis; intervertebral disc disorders; other back problems (20 sources)Sciatica; Translations: [Sciatica, left side]Onset: 05-08-2018 Resolved: 613188-01-0530YfhbtlcoKkbkanz and strains (6 sources)Lumbar sprain; Translations: [Sprain of ligaments of lumbar spine, initial encounter]Onset: 91-11-1540NhjuovgzSyffwuxuclan (1 source)LOW BACK PAIN, UNSPECIFIED; Translations: [LOW BACK PAIN, UNSPECIFIED] Onset: 54-85-3227Dfqzpobidash (3 sources)Tetanus-diphtheria [Td] [DT]; Translations: [Tetanus-diphtheria [Td] [DT]]Onset: 88-87-2983Zqerztnhaofv (1 source)Lumbar pain M54.50 Results Test NameValueInterpretationReference RangeFacilityBasophils Auto (Bld) [#/Vol] on 76-87-6197Zdeyyfpjz (Bld) [#/Vol]Automated basophil count0.0-0.1FLakeHealth Beachwood Medical CenterBasophils (Bld) [#/Vol]0.1 10 3/uL0.0-0.1FLakeHealth Beachwood Medical CenterBasophils/100 WBC Auto (Bld)on 58-88-1197Lagtycgfa/100 WBC (Bld)Automated basophil %0.2-2.0[facility] Basophils/100 WBC (Bld)0.8 %0.2-2.0[facility] HospitalCT MAXILLOFACIAL WO IV CONTRASTon 60-02-7305EO MAXILLOFACIAL WO IV CONTRASTExam: CT MAXILLOFACIAL WO IV CONTRAST History: Sinusitis. [...] to the sella, resulting in a thin posteriorbony margin of the clivus, consistent with sellar [...] as detailed. ELECTRONICALLY SIGNED BY: Victoriano Keller, DONormalNot AvailableCholesterol in LDL Calc [Mass/Vol]on 62-31-0971Jkriatqijyn in LDL [Mass/Vol]Cholesterol in LDL [Mass/volume] in Serum or Plasma by calculationWilson Street Hospital Comment on above:<100 mg/dl SDNUAKU785-611 mg/dl NEAR OR ABOVE DCUDMBH426-207 mg/dl BORDERLINE LSTX117-898 mg/dl HIGH>190 mg/dl VERY HIGHCholesterol in LDL [Mass/Vol]80.0 mg/dLWilson Street HospitalComment on above:<100 mg/dl LQZHHVE324-257 mg/dl NEAR OR ABOVE VUTTWGP908-964 mg/dl BORDERLINE LVFJ326-221 mg/dl HIGH>190 mg/dl VERY HIGHCholesterol in VLDL Calc [Mass/Vol]on 11-30-2024 Cholesterol in VLDL [Mass/Vol]Cholesterol in VLDL [Mass/volume] in Serum or Plasma by calculationWilson Street HospitalCholesterol in VLDL [Mass/Vol]17.0 mg/dLWilson Street HospitalEosinophils/100 WBC Auto (Bld)on 93-22-7062Lyhbrkehlqw/100 WBC (Bld)Automated eosinophil %0.9-7.[address] HospitalEosinophils/100 WBC (Bld)3.5 %0.9-7.0[facility] [address] HospitalErythrocyte distribution width Auto (RBC) [Ratio]on 04-87-6220Stvjtkihtth distribution width (RBC) [Ratio]Erythrocyte distribution width [Ratio] by Automated count11.0-15.0[facility] Erythrocyte distribution width (RBC) [Ratio]14.3 %11.0-15.0[facility] HospitalEstimated glomerular filtration rate (GFR) non- Americanon 73-66-6976RID/1.73 sq M.predicted among non-blacks MDRD (S/P/Bld) [Vol rate/Area]Estimated glomerular filtration rate (GFR) non->=60 mL/min/1.73m 2FLakeHealth Beachwood Medical CenterGFR/1.73 sq M.predicted among non-blacks MDRD (S/P/Bld) [Vol rate/Area]mL/min/{1.73_m2}>=60 mL/min/1.[address]m [address] HospitalGlobulin Calc (S) [Mass/Vol]on 11-30-2024 Globulin (S) [Mass/Vol]Serum globulin measurement by calculation (mass/volume) [facility] HospitalGlobulin (S) [Mass/Vol]3.0 g/dLWilson [address] HospitalHematocrit Auto (Bld) [Volume fraction]on 11-30-2024 Hematocrit (Bld) [Volume fraction]Hematocrit [Volume Fraction] of Blood by Automated znvsaWep63.0-54.0[address] HospitalHematocrit (d) [Volume fraction]37.7 %Low42.0-54.0[facility] [address] HospitalHemoglobin [Mass/volume] in Bloodon 06-24-7819Iuxwtbjotx (Bld) [Mass/Vol]Hemoglobin [Mass/volume] in DlmviTlq21.0-18.0[facility] [address] HospitalHemoglobin (Bld) [Mass/Vol]11.8 g/dLLow14.0-18.0[facility] [address] HospitalLaboratory - Chemistry and Chemistry - challengeon 91-46-1694Jddbnwd [Mass/Vol]3.5 g/dL 3.4-5.0[address] HospitalALP [Catalytic activity/Vol]61 U/L46-[address] HospitalALT [Catalytic activity/Vol]19 U/L16-[address] HospitalAST [Catalytic activity/Vol]16 U/L15-[address] HospitalBilirubin [Mass/Vol]0.4 mg/dL0.2-1.0[address] HospitalCalcium [Mass/Vol]8.5 mg/dL8.5-10.1FLakeHealth Beachwood Medical CenterChloride [Moles/Vol]106 mmol/O94-331AiussdcqrWilson [address] HospitalCholesterol [Mass/Vol]129 mg/dL<=200[facility] Cholesterol in HDL [Mass/Vol]32 mg/dRMeg73-11GxtbhnoduWilson [address] Hospital Comment on above:> or =60 mg/dl - LOW CARDIOVASCULAR RISK<40 mg/dl - HIGH CARDIOVASCULAR RISKCO2 [Moles/Vol]28.9 mmol/L21.0-32.0[facility] [address] HospitalCreatinine [Mass/Vol]0.93 mg/dL0.70-1.30[facility] GFR/1.73 sq M.predicted MDRD (S/P/Bld) [Vol rate/Area]mL/min/{1.73_m2}>=60 mL/min/1.73m 2FLakeHealth Beachwood Medical CenterGlucose [Mass/Vol]92 mg/eP32-[address] HospitalPotassium [Moles/Vol]4.4 mmol/L3.5-5.1FLakeHealth Beachwood Medical CenterProtein [Mass/Vol]6.5 g/dL6.4-8.2FOhio State East Hospitalodium [Moles/Vol]141 mmol/K790-116GrnfmcdziWilson [address] HospitalTriglyceride [Mass/Vol]85 mg/dL<=150[address] HospitalUrea nitrogen [Mass/Vol]10.0 mg/dL7.0-18.0[address] HospitalUrea nitrogen/Creatinine [Mass ratio]10.8 mg/mgWilson [address] Hospital Laboratory - Hematology and Cell countson 23-34-6038Comixlom granulocytes/100 WBC (Bld)0.3 %0.0-0.5FLakeHealth Beachwood Medical CenterLeukocytes [#/volume] corrected for nucleated erythrocytes in Blood by Automated counon 68-90-6045WBM corrected for nucl RBC Auto (Bld) [#/Vol]Leukocytes [#/volume] corrected for nucleated erythrocytes in Blood by Automated coun4.0-11.0[facility] [address] HospitalWBC corrected for nucl RBC Auto (Bld) [#/Vol]7.2 10 3/uL4.0-11.[address] HospitalLymphocytes Auto (Bld) [#/Vol]on 11-30-2024 Lymphocytes (Bld) [#/Vol]Lymphocytes [#/volume] in Blood by Automated count 1.2-3.8[address] HospitalLymphocytes (Bld) [#/Vol]1.8 10 3/uL 1.2-3.8[address] HospitalLymphocytes/100 WBC Auto (Bld)on 43-58-0239Wlsafnuiljb/100 WBC (Bld)Lymphocytes/100 leukocytes in Blood by Automated count20.5-60.0[address] HospitalLymphocytes/100 WBC (Bld)24.7 %20.5-60.0[facility] Auto (RBC) [Entitic mass]on 34-79-8875KFI (RBC) [Entitic mass]MCH [Entitic mass] by Automated count Low25.9-34.0[facility] (RBC) [Entitic mass]24.7 pgLow 25.9-34.0[facility] Auto (RBC) [Mass/Vol]on 11-61-6418DNWO (RBC) [Mass/Vol]MCHC [Mass/volume] by Automated count29.9-35.2 [facility]HC (RBC) [Mass/Vol]31.3 g/dL29.9-35.2 [facility] SouthV Auto (RBC) [Entitic vol]on 07-11-9604ZSP (RBC) [Entitic vol]MCV [Entitic volume] by Automated lpylpSfe60.0-94.0[facility] SouthV (RBC) [Entitic vol]79.[address] HospitalMonocytes Auto (Bld) [#/Vol]on 70-43-2499Xbkncjzwg (Bld) [#/Vol]Automated blood monocyte count0.3-0.8[facility] Monocytes (Bld) [#/Vol]0.6 10 3/uL0.3-0.8[facility] Monocytes/100 WBC Auto (Bld)on 83-20-9648Qkehjkvog/100 WBC (Bld)Automated monocyte %1.7-12.0[facility] [address] HospitalMonocytes/100 WBC (Bld)8.4 % 1.7-12.0[address] HospitalNeutrophils Auto (Bld) [#/Vol]on 93-80-9454Mgeiqgrrrka (Bld) [#/Vol]Neutrophils [#/volume] in Blood by Automated count1.4-6.5FLakeHealth Beachwood Medical CenterNeutrophils (Bld) [#/Vol]4.5 10 3/uL1.4-6.5FLakeHealth Beachwood Medical CenterNeutrophils/100 WBC Auto (Bld)on 80-43-7923Azveruyzoeb/100 WBC (Bld)Automated neutrophil %43.0-75.0[facility] [address] HospitalNeutrophils/100 WBC (Bld)62.3 %43.0-75.0[address] HospitalNo Panel Informationon 06-53-8044Myyllvsofah # (Auto)0.3 10 3/uL0.0-0.7FLakeHealth Beachwood Medical CenterImmature Granulocyte # (Auto)0.02 10 3/uL0.00-0.03[address] HospitalProstate Specific Antigen Screen2.52 ng/mL<=4.00[address] HospitalPlatelet mean volume Auto (Bld) [Entitic vol]on 64-03-9425Dqfaedit mean volume (Bld) [Entitic vol] Platelet mean volume [Entitic volume] in Blood by Automated countLow9.5-13.[address] HospitalPlatelet mean volume (Bld) [Entitic vol]9.0 fL Low9.5-13.5FLakeHealth Beachwood Medical CenterPlatelets Auto (Bld) [#/Vol]on 51-14-0185Dfbfqctlj (Bld) [#/Vol]Platelets [#/volume] in Blood by Automated zybnn089-438PfaquyrteWilson Street HospitalPlatelets (Bld) [#/Vol]302 10 3/uL 150-450[address] HospitalRBC Auto (Bld) [#/Vol]on 44-81-1488JWG (Bld) [#/Vol]Erythrocytes [#/volume] in Blood by Automated count4.70-6.[address] HospitalRBC (Bld) [#/Vol]4.77 10 6/uL4.70-6.10[facility]atierum or plasma albumin/globulin mass ratioon 11-30-2024 Albumin/Globulin [Mass ratio]Serum or plasma albumin/globulin mass ratio [facility] HospitalAlbumin/Globulin [Mass ratio]1.2 {ratio} [facility]ierum or plasma anion gap determinationon 50-39-9724Dawmj gap [Moles/Vol]Serum or plasma anion gap determinationWilson Street HospitalAnion gap [Moles/Vol]10.5 mmol/LFOhio State East Hospitalerum or plasma total cholesterol/high density lipoprotein (HDL) cholesterol mass nirav 80-41-4054Eiwvmpklvyu.total/Cholesterol in HDL [Mass ratio]Serum or plasma total cholesterol/high density lipoprotein (HDL) cholesterol mass [facility] CenterComment on above:3.3 - 4.4 LOW RISK4.4 - 7.1 AVERAGE RISK7.1 - 11.0 MODERATE RISK>11.0 HIGH RISK Cholesterol.total/Cholesterol in HDL [Mass ratio]4.0 {ratio}[facility] [address] HospitalComment on above:3.3 - 4.4 LOW RISK4.4 - 7.1 AVERAGE RISK7.1 - 11.0 MODERATE RISK>11.0 HIGH RISKXR PELVIS 3+ VIEWSon 50-33-7384GS PELVIS 3+ VIEWSInterpreted By: Sushma Black, STUDY: Pelvis, 5 views. INDICATION: Signs/Symptoms:pelvis fracture. COMPARISON: 05/23/2024. ACCESSION NUMBER(S): [id number] ORDERING CLINICIAN: ADAM NAVARRO FINDINGS: No acute [...] Sushma Black 11/22/2024 1:23 PM Dictation workstation: [id number]th Grove City Methodist HospitalComment on above:Order Comment: 5 view of the pelvisInfluenza virus B Ag [Presence] in Upper respiratory specimen by Rapid immunoassayon 84-08-5013IWFEE Ag IA.rapid Ql (Nph)Influenza virus B Ag [Presence] in Upper respiratory specimen by Rapid immunoassayWilson Street HospitalNo Panel Informationon 47-22-3112Utdifvqza Type A (Rapid)NegativeWilson Street HospitalPOC SARS CoV-[address] Basophils Auto (Bld) [#/Vol]on 65-04-7167Tzyiphdbd (Bld) [#/Vol]Automated basophil count0.0-0.1FLakeHealth Beachwood Medical CenterBasophils/100 WBC Auto (Bld)on 56-05-8875Ycjtqfzrr/100 WBC (Bld)Automated basophil %0.2-2.0[facility] [address] HospitalEosinophils/100 WBC Auto (Bld)on 08-29-2024 Eosinophils/100 WBC (Bld)Automated eosinophil %0.9-7.0[facility] [address] HospitalErythrocyte distribution width Auto (RBC) [Ratio]on 51-43-3864Zezoaikjfjl distribution width (RBC) [Ratio]Erythrocyte distribution width [Ratio] by Automated count11.0-15.0[address] HospitalEstimated glomerular filtration rate (GFR) non- Americanon 98-22-4902IEV/1.73 sq M.predicted among non-blacks MDRD (S/P/Bld) [Vol rate/Area]Estimated glomerular filtration rate (GFR) non->=60 mL/min/1.73m 2FLakeHealth Beachwood Medical CenterHematocrit Auto (Bld) [Volume fraction]on 48-51-4080Vwtczwgigx (Bld) [Volume fraction]Hematocrit [Volume Fraction] of Blood by Automated countLow 42.0-54.0[address] HospitalHemoglobin [Mass/volume] in Bloodon 93-44-0752Krezbletrz (Bld) [Mass/Vol]Hemoglobin [Mass/volume] in BloodLow 14.0-18.0[address] HospitalLaboratory - Chemistry and Chemistry - challengeon 45-48-2122Bgeumxe [Mass/Vol]8.7 mg/dL8.5-10.1FLakeHealth Beachwood Medical CenterChloride [Moles/Vol]102 mmol/N39-453OvvptnobfWilson [address] HospitalCO2 [Moles/Vol]27.9 mmol/L21.0-32.0[facility] Creatinine [Mass/Vol]1.20 mg/dL0.70-1.30[facility] GFR/1.73 sq M.predicted MDRD (S/P/Bld) [Vol rate/Area]mL/min/{1.73_m2}>=60 mL/min/1.73m 2FLakeHealth Beachwood Medical CenterGlucose [Mass/Vol]113 mg/dLJ.W. Ruby [facility] 74-[address] HospitalPotassium [Moles/Vol]4.0 mmol/L3.5-5.1 [facility]atiodium [Moles/Vol]138 mmol/X429-444WldxdtzgdWilson [address] HospitalUrea nitrogen [Mass/Vol]10.0 mg/dL7.0-18.0[address] HospitalUrea nitrogen/Creatinine [Mass ratio]8.3 mg/mgWilson Street HospitalLaboratory - Hematology and Cell countson 08-29-2024 Immature granulocytes/100 WBC (Bld)0.4 %0.0-0.5FLakeHealth Beachwood Medical Center Leukocytes [#/volume] corrected for nucleated erythrocytes in Blood by Automated counon 79-73-5076RMR corrected for nucl RBC Auto (Bld) [#/Vol]Leukocytes [#/volume] corrected for nucleated erythrocytes in Blood by Automated counJ.W. Ruby Memorial Hospital 4.0-11.0[address] HospitalLymphocytes Auto (Bld) [#/Vol]on 78-07-5404Sfrzcidwdmb (Bld) [#/Vol]Lymphocytes [#/volume] in Blood by Automated count1.2-3.8[address] HospitalLymphocytes/100 WBC Auto (Bld)on 63-36-2497Qfafbevyhzn/100 WBC (Bld)Lymphocytes/100 leukocytes in Blood by Automated dfdcaKwd78.5-60.0[facility] SouthH Auto (RBC) [Entitic mass]on 81-82-0149WVS (RBC) [Entitic mass]MCH [Entitic mass] by Automated vazqmSxl89.9-34.0[facility] SouthHC Auto (RBC) [Mass/Vol]on 24-49-0856ZCBB (RBC) [Mass/Vol]MCHC [Mass/volume] by Automated count29.9-35.2FLakeHealth Beachwood Medical CenterMCV Auto (RBC) [Entitic vol]on 23-36-1612FHN (RBC) [Entitic vol]MCV [Entitic volume] by Automated countLow 80.0-94.0[address] HospitalMonocytes Auto (Bld) [#/Vol]on 08-49-9897Zunybirdd (Bld) [#/Vol]Automated blood monocyte count0.3-0.8[address] HospitalMonocytes/100 WBC Auto (Bld)on 92-45-8242Ybhsggnrs/100 WBC (Bld)Automated monocyte %1.7-12.0[facility] Neutrophils Auto (Bld) [#/Vol]on 02-33-1402Qxdxgwnsgpy (Bld) [#/Vol]Neutrophils [#/volume] in Blood by Automated countHigh1.4-6.5FLakeHealth Beachwood Medical CenterNeutrophils/100 WBC Auto (Bld)on 35-56-5796Rkcsbxclozk/100 WBC (Bld) Automated neutrophil %High43.0-75.0[address] HospitalNo Panel Informationon 91-96-2627Ssyavyhzofe # (Auto)0.1 10 3/uL0.0-0.7FLakeHealth Beachwood Medical CenterImmature Granulocyte # (Auto)0.05 10 3/uLHigh0.00-0.03[address] HospitalPlatelet mean volume Auto (Bld) [Entitic vol]on 13-26-8901Frwgolzv mean volume (Bld) [Entitic vol]Platelet mean volume [Entitic volume] in Blood by Automated count9.5-13.5FLakeHealth Beachwood Medical Center Platelets Auto (Bld) [#/Vol]on 38-57-0278Quztmysse (Bld) [#/Vol]Platelets [#/volume] in Blood by Automated kdseq945-509FkuyrthqfWilson Street Hospital RBC Auto (Bld) [#/Vol]on 24-12-4125CUU (Bld) [#/Vol]Erythrocytes [#/volume] in Blood by Automated count4.70-6.10[facility] Cincinnatierum or plasma anion gap determinationon 22-76-9376Rzopw gap [Moles/Vol]Serum or plasma anion gap determinationWilson Street HospitalConsulton 08-07-2024 [id number] Prosper Milian 1975 M Date Provider Department Center 08/07/2024 KeyurМаринаSinCYNDIBURT [facility] SURG Second Fl Family History Problem Relation Age of Onset Cancer Father Cancer Paternal Grandfather Family Status - Relation Status Age at Father Paternal Grandfather Level of Service:44156 AR OFFICE/OP CONSLTJ NEW/EST PT MOD MDM 40 MINUTES Reason for Visit and Comments: Consult [674][facility] CenterNM beba perf SPECT rest str on 25-53-6975ND beba perf SPECT rest strSOUTHERN [facility] [place] [address] Nuclear Medicine Report Signed Patient: Prosper Milian MR#: [id number] 6 : 1975 Acct:[id number] Age/Sex: 48 / M ADM Date: 07/09/24 Loc: Room: Type: [facility] Attending Dr: Chantal Mart MD Copies [...] Evelyn Macdonald M.D.07/10/2024 2:38 PM Dictation Location: [place] [address] Transcribed By: [facility] 07/10/24 1438 Dictated By: Evelyn Macdonald MD 07/10/24 1435 Signed By: 07/10/24 1438[facility] Physician GroupXR PELVIS 3+ VIEWSon 05-23-2024 XR PELVIS 3+ VIEWSInterpreted By: Cesar Solomon, STUDY: XR PELVIS 3+ VIEWS; ; 05/23/2024 1:18 pm INDICATION: Signs/Symptoms:pelvis fracture. ,R10.2 Pelvic and perineal pain COMPARISON: 02/29/2024 ACCESSION NUMBER(S): [id number] ORDERING CLINICIAN: ADAM NAVARRO FINDINGS: Pelvis, five views Postsurgical changes in the pelvis with screw fixation through the sacrum and the plate and screw fixation of the pubic symphysis. No acute fracture seen. Mild degenerative change of the hips IMPRESSION: Postsurgical change about the pelvis without hardware failure. MACRO: None Signed by: Cesar Solomon 05/24/2024 7:08 AM Dictation workstation: [id number] Pruitt StreetComment on above:Order Comment: 5 view of the pelvisXR PELVIS 3+ VIEWSon 80-81-6874PE PELVIS 3+ VIEWSInterpreted By: Cesar Solomon, STUDY: XR PELVIS 3+ VIEWS; ; 02/29/2024 12:59 pm INDICATION: Signs/Symptoms:pelvis fracture. COMPARISON: 02/01/2020 ACCESSION NUMBER(S): [id number] ORDERING CLINICIAN: ADAM NAVARRO FINDINGS: Pelvis, five views Postsurgical changes in the sacrum and the pubic symphysis with screws and plate and screw fixation respectively. The hardware is intact. There is no malalignment. No significant degenerative changes IMPRESSION: Postsurgical change in the pelvis with intact hardware. No malalignment seen MACRO: None Signed by: Cesar Solomon 03/01/2024 6:55 PM Dictation workstation: [id number]th Grove City Methodist HospitalComment on above:Order Comment: 5 view of the pelvisXR PELVIS 3+ VIEWSon 37-88-6346JL PELVIS 3+ VIEWSInterpreted By: Sushma Black, STUDY: Pelvis, 5 views. INDICATION: Signs/Symptoms:pelvis fracture. COMPARISON: 12/28/2023. ACCESSION NUMBER(S): [id number] ORDERING CLINICIAN: ADAM NAVARRO FINDINGS: No acute [...] Sushma Black 02/02/2024 7:24 PM Dictation workstation: [id number]th Grove City Methodist HospitalComment on above:Order Comment: 5 view of the pelvisXR PELVIS 3+ VIEWSon 29-26-4071IP PELVIS 3+ VIEWSInterpreted By: Caryn Norman, STUDY: XR PELVIS 3+ VIEWS; ; 12/28/2023 12:54 pm INDICATION: Signs/Symptoms:pain. COMPARISON: Pelvis radiographs dated 12/08/2023. ACCESSION NUMBER(S): [id number] ORDERING CLINICIAN: ADAM NAVARRO FINDINGS: Extensive postsurgical [...] Caryn Norman 12/30/2023 12:52 PM Dictation workstation: [id number]th Grove City Methodist HospitalComment on above:Order Comment: 5v pelvis (AP/inlet/outlet/Judet's)Basic metabolic 2000 panelon 01-23-6864Bbwsy gap [Moles/Vol]12 mmol/L10 - 20 mmol/L [facility] InstituteCalcium [Mass/Vol]8.3 mg/dLLow8.6 - 10.6 mg/dL [facility] InstituteChloride [Moles/Vol]103 mmol/L98 - 107 mmol/L [facility] InstituteCO2 [Moles/Vol]27 mmol/L21 - 32 mmol/L [facility] InstituteCreatinine [Mass/Vol]0.82 mg/dL0.50 - 1.30 mg/dLUnOhioHealth O'Bleness HospitaleGFR- PINFUniFostoria City HospitalComment on above:Calculations of estimated GFR are performed using the 2020 CKD-EPI Study Refit equation without therace variable for the IDMS- Traceable creatinine methods. https://jasn.asnjournals.org/content/early/ASN.3424778617 Glucose [Mass/Vol]103 mg/uLJoel43 - 99 mg/dLUnOhioHealth O'Bleness Hospital Interpretation and review of laboratory resultsAbnormalUUniversity Hospitals Elyria Medical CenterPotassium [Moles/Vol]3.6 mmol/L3.5 - 5.3 mmol/[facility] CenterSodium [Moles/Vol]138 mmol/L136 - 145 mmol/[facility] CenterUrea nitrogen [Mass/Vol]14 mg/dL6 - 23 mg/dLUnOhioHealth O'Bleness HospitalAnion gap [Moles/Vol]12 mmol/XEbfrfp67-18MhzyqyizywSouthwest General Health CenterComment on above:Performed By: #### 25654-9 ####ANASTACIO Hodge ([id number])[facility] ([facility])[address] [place], [place] [address]Dvqvdqx [Mass/Vol]8.3 mg/dLLow8.6-10.6UnSouthwest General Health Center Comment on above:Performed By: #### 09566-1 ####ANASTACIO Hodge ([id number])[facility] ([facility])[address] [place], [place] [address]Cbjpjxvq [Moles/Vol] 103 mmol/VQyfrpm91-687PpsjquqxnsSouthwest General Health CenterComment on above:Performed By: #### 25735-5 ####ANASTACIO Hodge ([id number])[facility] ([facility])[address] [place], [place] [address]NV5 [Moles/Vol]27 mmol/YBisccf90-10 [facility] HospitalComment on above:Performed By: #### 02084-0 ####ANASTACIO Hodge ([id number])[facility] ([facility])[address] [place], [place] [address]Dqqnaxeigh [Mass/Vol]0.82 mg/dLNormal0.50-1.30 [facility] HospitalComment on above:Performed By: #### 38732-2 ####ANASTACIO Hodge ([id number])[facility] ([facility])[address] [place], [place] [address]VIE/1.73 sq M.predicted MDRD (S/P/Bld) [Vol rate/Area] mL/min/{1.73_m2}Normal>60UnSouthwest General Health CenterComment on above:Result Comment: Calculations of estimated GFR are performed using the 2020 CKD-EPI Study Refit equation without the race variable for the IDMS-Traceable creatinine methods. https://jasn.asnjournals.org/content/early//ASN.6995069211Kzjfzknaz By: #### 92093-2 ####ANASTACIO Hodge ([id number])[facility] ([facility])[address] [place], [place] [address]Giktaqh [Mass/Vol]103 mg/aHDaaq45-50TrwoerkbobSouthwest General Health CenterComment on above:Performed By: #### 44651-1 ####ANASTACIO Hodge ([id number])[facility] ([facility])[address] [place], [place] [address]Oyqkotgdn [Moles/Vol]3.6 mmol/LNormal3.5-5.3UnSouthwest General Health CenterComment on above:Performed By: #### 79792-6 ####ANASTACIO Hodge ([id number])[facility] ([facility])[address] [place], [place] [address]Uavboi [Moles/Vol]138 mmol/NHxjbzg079-039WkcfaedvzmSouthwest General Health Center Comment on above:Performed By: #### 56220-3 ####ANASTACIO Hodge ([id number])[facility] ([facility])[address] [place], [place] [address]Mgsj nitrogen [Mass/Vol]14 mg/dLNormal6-23Community Memorial HospitalComment on above:Performed By: #### 32260-9 ####ANASTACIO Hodge ([id number])[facility] ([facility])[address] [place], [place] [address]DIS W Auto Differential panel (Bld)on 56-30-9461Uotoniltp (Bld) [#/Vol]0.05 10*3/[facility] Basophils/100 WBC (Bld)0.6 %0.0 - 2.0 %[facility] Eosinophils (Bld) [#/Vol]0.30 10*3/[facility] Eosinophils/100 WBC (Bld)3.3 %0.0 - 6.0 %[facility] Erythrocyte distribution width (RBC) [Ratio]13.1 %11.5 - 14.5 %[facility] InstituteHematocrit (Bld) [Volume fraction]32.7 %Low41.0 - 52.0 % [facility] InstituteHemoglobin (Bld) [Mass/Vol]10.8 g/dLLow13.5 - 17.5 g/dLUnOhioHealth O'Bleness HospitalImmauniversity hospitals conneaut medical center granulocytes (Bld) [#/Vol] 0.13 10*3/[facility] HospitalImellett memorial hospital granulocytes/100 WBC (Bld) 1.4 %High0.0 - 0.9 %[facility] InstituteComment on above:Immature Granulocyte Count (IG) includes promyelocytes, myelocytes and metamyelocytes but does not include bands. Percent differential counts (%) should be interpreted in the context of the absolute cell counts (cells/UL).Interpretation and review of laboratory resultsAbnormalUniFostoria City HospitalLymphocytes (Bld) [#/Vol]1.61 10*3/[facility] HospitalLymphocytes/100 WBC (Bld) 17.8 %13.0 - 44.0 %[facility] InstituteMCH (RBC) [Entitic mass]28.1 pg26.0 - 34.0 pgUnOhioHealth O'Bleness HospitalMCHC (RBC) [Mass/Vol]33.0 g/dL 32.0 - 36.0 g/dLShelby Memorial HospitalV (RBC) [Entitic vol]85 fL80 - 100 fLUniFostoria City HospitalMonocytes (Bld) [#/Vol]0.71 10*3/uL [facility] InstituteMonocytes/100 WBC (Bld)7.8 %2.0 - 10.0 % [facility] InstituteNeutrophils (Bld) [#/Vol]6.25 10*3/[facility] HospitalComment on above:Percent differential counts (%) should be interpreted in the context of the absolute cell counts (cells/uL). Neutrophils/100 WBC (Bld)69.1 %40.0 - 80.0 %[facility] Nucleated RBC/100 WBC (Bld) [Ratio]0.0 %[facility] Platelets (Bld) [#/Vol]280 10*3/[facility] HospitalRBC (Bld) [#/Vol]3.85 10*6/[facility] HospitalWBC (Bld) [#/Vol]9.1 10*3/[facility] HospitalUnOhioHealth O'Bleness Hospital Basophils (Bld) [#/Vol]0.05 x10*3/uLNormal0.00-0.10[facility] HospitalComment on above:Performed By: #### 97881-4 ####ANASTACIO Hodge ([id number])[facility] ([facility])[address] [place], [place] [address]Mxzrtwves/100 WBC (Bld)0.6 %Normal0.0-2.0[facility] HospitalComment on above:Performed By: #### 00700-0 ####ANASTACIO Hodge ([id number])[facility] ([facility])[address] [place] [address] Eosinophils (Bld) [#/Vol]0.30 x10*3/uLNormal0.00-0.70[facility] HospitalComment on above:Performed By: #### 28672-8 ####ANASTACIO Hodge ([id number])[facility] ([facility])[address] [place], [place] [address]Xqqfgfhcsmw/100 WBC (Bld)3.3 %Normal0.0-6.0[facility] HospitalComment on above:Performed By: #### 89528-9 ####ANASTACIO Hodge ([id number])[facility] ([facility])[address] [place] [address] Erythrocyte distribution width (RBC) [Ratio]13.1 %Frglea24.5-14.5[facility] Memorial HospitalComment on above:Performed By: #### 71521-9 ####ANASTACIO Hodge ([id number])[facility] ([facility])[address] [place], [place] [address]Jbhdrjmfnt (Bld) [Volume fraction]32.7 %Low41.0-52.0UnSouthwest General Health CenterComment on above:Performed By: #### 73027-9 ####ANASTACIO Hodge ([id number])[facility] ([facility])[address] [place], [place] [address]Aauqxyagif (Bld) [Mass/Vol]10.8 g/dLLow13.5-17.5[facility] HospitalComment on above:Performed By: #### 24582-5 ####ANASTACIO Hodge ([id number])[facility] ([facility])[address] [place], [place] [address]Lljifmup granulocytes (Bld) [#/Vol]0.13 x10*3/uLNormal0.00-0.70[facility] HospitalComment on above:Performed By: #### 90696-9 ####ANASTACIO Hodge ([id number])[facility] ([facility])[address] [place], [place] [address]Serafozv granulocytes/100 WBC (Bld)1.4 %High0.0-0.9[facility] Memorial HospitalComment on above:Result Comment: Immature Granulocyte Count (IG) includes promyelocytes, myelocytes and metamyelocytes but does not include bands. Percent differential counts (%) should be interpreted in the context of the absolute cell counts (cells/UL).Performed By: #### 28444-1 ####ANASTACIO Hodge ([id number])[facility] ([facility])[address] [place], [place] [address]Vslyekpeygo (Bld) [#/Vol]1.61 x10*3/uLNormal1.20-4.80UnSouthwest General Health CenterComment on above:Performed By: #### 26237-4 ####ANASTACIO Hodge ([id number])[facility] ([facility])[address] [place], [place] [address]Ubpeqxdqdkn/100 WBC (Bld)17.8 %Mwbsnn60.0-44.0UnSouthwest General Health CenterComment on above:Performed By: #### 18491-0 ####ANASTACIO Hodge (68091)[facility] ([facility])[address] [place], [place] [address]IGV (RBC) [Entitic mass]28.1 jqLbiecn68.0-34.0UnSouthwest General Health CenterComment on above:Performed By: #### 60207-3 ####ANASTACIO Hodge ([id number])[facility] ([facility])[address] [place], [place] [address]XCDW (RBC) [Mass/Vol]33.0 g/yUDgipmu03.0-36.0UnSouthwest General Health CenterComment on above:Performed By: #### 82583-4 ####ANASTACIO Hodge ([id number])[facility] ([facility])[address] [place], [place] [address]IOC (RBC) [Entitic vol]85 yFEtjliz59-366EfnytykpinSouthwest General Health CenterComment on above:Performed By: #### 96038-8 ####ANASTACIO Hodge ([id number])[facility] ([facility])[address] [place], [place] [address]Vbssdxcol (Bld) [#/Vol]0.71 x10*3/uLNormal0.10-1.00[facility] Comment on above:Performed By: #### 85100-0 ####ANASTACIO Hodge ([id number])[facility] ([facility])[address] [place], [place] [address]Ttsdjltzk/100 WBC (Bld)7.8 %Normal2.0-10.0[facility] HospitalComment on above:Performed By: #### 06843-3 ####ANASTACIO Hodge ([id number])[facility] ([facility])[address] [place], [place] [address]Pdxnyvosmug (Bld) [#/Vol]6.25 x10*3/uLNormal1.20-7.70UnSouthwest General Health CenterComment on above:Result Comment: Percent differential counts (%) should be interpreted in the context of the absolute cell counts (cells/uL).Performed By: #### 09949-2 ####ANASTACIO Hodge ([id number])[facility] ([facility])[address] [place], [place] [address]Feanyyoqhht/100 WBC (Bld)69.1 %Nocbga05.0-80.0[facility] Memorial HospitalComment on above:Performed By: #### 57682-8 ####ANASTACIO Hodge ([id number])[facility] ([facility])[address] [place], [place] [address]Zjgfrjixb RBC/100 WBC (Bld) [Ratio]0.0 /100 WBCsNormal0.0-0.0[facility] HospitalComment on above:Performed By: #### 64521-5 ####ANASTACIO Hodge ([id number])[facility] ([facility])[address] [place], [place] [address]Gbuujcvmb (Bld) [#/Vol]280 x10*3/qOEyyuik722-600AwvrkftlcuSouthwest General Health CenterComment on above:Performed By: #### 54705-8 ####ANASTACIO Hodge (41940)[facility] ([facility])[address] [place], [place] [address]CSW (Bld) [#/Vol]3.85 x10*6/uLLow4.50-5.90[facility] HospitalComment on above:Performed By: #### 09284-2 ####ANASTACIO Hodge ([id number])[facility] ([facility])[address] [place], [place] [address]HSI (Bld) [#/Vol]9.1 x10*3/uLNormal4.4-11.3[facility] HospitalComment on above:Performed By: #### 80193-0 ####ANASTACIO Hodge ([id number])[facility] ([facility])[address] [place], [place] [address]Xntvtyjfloioiwwrn, 12-lead PRN ACS symptomsOrdered By: Dustin Lyman on 35-86-8626Lhggpu Vzgb372FLN [facility] Work Phone: [phone] Eayf90juwywnwRkzvtwwpbdRiverview Health Institute Work Phone: [phone] Dlcxyi690 [facility] Work Phone: [phone] Dvciy237 [facility] Work Phone: [phone] Ucexrggb318 [facility] Work Phone: [phone] Oqtey883 [facility] Work Phone: [phone] Hnjql40gpgsoXtlgqiubmyFostoria City Hospital Work Phone: [phone] Rumebgil51 [facility] Work Phone: [phone] Rhtbpyzp104 [facility] Work Phone: [phone] Calculation(Batomastt)454 [facility] Work Phone: [phone] Rroobutqcm412 [facility] Work Phone: R Nejc5qqmyjnxQvilnqohutSumma Health Work Phone: [phone] Twxt62sklsbtsIvdzsoznavSumma Health Work Phone: [phone] Eioqxw021 [facility] Work Phone: [phone] Ryzv926KEPTtolhysdtyProMedica Memorial Hospital Work Phone: [phone] O'Bleness Hospital Work Phone: Electrocardiogram, 12-lead PRN ACS symptomson 65-28-3244Pxanz tachycardia Minimal voltage criteria for LVH, may be normal variant Borderline ECG No previous ECGs available Confirmed by Dustin Lyman ([id number]) on 12/14/2023 2:58:33 PMDustin Rutledge MD - 12/14/2023 Sinus tachycardia Minimal voltage criteria for LVH, may be normal variant Borderline ECG No previous ECGs available Confirmed by Dustin Lyman ([id number]) on 12/14/2023 2:58:33 PM [facility] Work Phone: Magnesiumon 36-67-7896Gkweiremn [Mass/Vol]2.11 mg/dL 1.60 - 2.40 mg/dLRiverview Health InstituteMagnesium [Mass/Vol]2.11 mg/dL Normal1.60-2.40UnSouthwest General Health CenterComment on above: Performed By: #### 86069-4 ####ANASTACIO Hodge ([id number])[facility] ([facility])[address] [place], [place] [address]Ylectveuc [Mass/Vol]on 21-94-1123Klnpblmpjhxkdi and review of laboratory resultsNormalUniversAdams Memorial HospitalNo Panel Informationon 34-23-0314YqjltqqfvcOhioHealth O'Bleness HospitalBasic metabolic 2000 panelon 01-30-2412Pvsyp gap [Moles/Vol]13 mmol/L10 - 20 mmol/LUnOhioHealth O'Bleness HospitalCalcium [Mass/Vol]8.5 mg/dLLow8.6 - 10.6 mg/dLUnOhioHealth O'Bleness HospitalChloride [Moles/Vol]100 mmol/L98 - 107 mmol/[facility] CenterCO2 [Moles/Vol]28 mmol/L21 - 32 mmol/[facility] CenterCreatinine [Mass/Vol]0.92 mg/dL0.50 - 1.30 mg/dLUnOhioHealth O'Bleness HospitaleGFR- PINFUniFostoria City HospitalComment on above:Calculations of estimated GFR are performed using the 2020 CKD-EPI Study Refit equation without therace variable for the IDMS-Traceable creatinine methods. https://jasn.asnjournals.org/content//ASN.0004885136 Glucose [Mass/Vol]101 mg/dUEamy85 - 99 mg/dLUnOhioHealth O'Bleness Hospital Interpretation and review of laboratory resultsAbnoalUUniversity Hospitals Elyria Medical CenterPotassium [Moles/Vol]3.9 mmol/L3.5 - 5.3 mmol/[facility] CenterSodium [Moles/Vol]137 mmol/L136 - 145 mmol/[facility] CenterUrea nitrogen [Mass/Vol]16 mg/dL6 - 23 mg/dLUnOhioHealth O'Bleness HospitalAnion gap [Moles/Vol]13 mmol/VMzgvup27-09GtvytufownSouthwest General Health CenterComment on above:Performed By: #### [id number] ####ANASTACIO Hodge ([id number])[facility] ([facility])[address] [place], [place] [address]Ohqwqti [Mass/Vol]8.5 mg/dLLow8.6-10.6UnSouthwest General Health Center Comment on above:Performed By: #### [id number] ####ANASTACIO Hodge ([id number])[facility] ([facility])[address] [place], [place] [address]Emneenje [Moles/Vol] 100 mmol/SNlpntl93-308NzufhnjgsgSouthwest General Health CenterComment on above:Performed By: #### 64923-4 ####ANASTACIO Hodge ([id number])[facility] ([facility])[address] [place], [place] [address]GB0 [Moles/Vol]28 mmol/TIqgstr45-52 [facility] HospitalComment on above:Performed By: #### 40184-3 ####ANASTACIO Hodge ([id number])[facility] ([facility])[address] [place], [place] [address]Hqfckfpfov [Mass/Vol]0.92 mg/dLNormal0.50-1.30 [facility] HospitalComment on above:Performed By: #### 75936-5 ####ANASTACIO Hodge ([id number])[facility] ([facility])[address] [place], [place] [address]QZD/1.73 sq M.predicted MDRD (S/P/Bld) [Vol rate/Area] mL/min/{1.73_m2}Normal>60UnSouthwest General Health CenterComment on above:Result Comment: Calculations of estimated GFR are performed using the 2020 CKD-EPI Study Refit equation without the race variable for the IDMS-Traceable creatinine methods. https://jasn.asnjournals.org/content/early//ASN.2526619430Krxvshnfg By: #### 19899-2 ####ANASTACIO Hodge ([id number])[facility] ([facility])[address] [place], [place] [address]Hfmtjvv [Mass/Vol]101 mg/uQMqdw84-37XgargrapsuSouthwest General Health CenterComment on above:Performed By: #### 08062-1 ####ANASTACIO Hodge ([id number])[facility] ([facility])[address] [place], [place] [address]Cptgjbejh [Moles/Vol]3.9 mmol/LNormal3.5-5.3UnSouthwest General Health CenterComment on above:Performed By: #### 01475-8 ####ANASTACIO Hodge ([id number])[facility] ([facility])[address] [place], [place] [address]Elkvgk [Moles/Vol]137 mmol/XSaxlju614-220JsqkmtedboSouthwest General Health Center Comment on above:Performed By: #### 16408-4 ####ANASTACIO Hodge ([id number])[facility] ([facility])[address] [place], [place] [address]Fiho nitrogen [Mass/Vol]16 mg/dLNormal6-23Community Memorial HospitalComment on above:Performed By: #### 98532-1 ####ANASTACIO Hodge ([id number])[facility] ([facility])[address] [place], [place] [address]THQ W Auto Differential panel (Bld)on 90-90-0560Vljynhhlz (Bld) [#/Vol]0.06 10*3/[facility] Basophils/100 WBC (Bld)0.5 %0.0 - 2.0 %[facility] Eosinophils (Bld) [#/Vol]0.40 10*3/[facility] Eosinophils/100 WBC (Bld)3.4 %0.0 - 6.0 %[facility] Erythrocyte distribution width (RBC) [Ratio]13.1 %11.5 - 14.5 %[facility] InstituteHematocrit (Bld) [Volume fraction]36.4 %Low41.0 - 52.0 % [facility] InstituteHemoglobin (Bld) [Mass/Vol]12.0 g/dLLow13.5 - 17.5 g/dLRiverview Health InstituteImellett memorial hospital granulocytes (Bld) [#/Vol] 0.17 10*3/[facility] HospitalImellett memorial hospital granulocytes/100 WBC (Bld) 1.4 %High0.0 - 0.9 %[facility] Health InstituteComment on above:Immature Granulocyte Count (IG) includes promyelocytes, myelocytes and metamyelocytes but does not include bands. Percent differential counts (%) should be interpreted in the context of the absolute cell counts (cells/UL).Interpretation and review of laboratory resultsAbnormalUniFostoria City HospitalLymphocytes (Bld) [#/Vol]2.07 10*3/[facility] HospitalLymphocytes/100 WBC (Bld) 17.5 %13.0 - 44.0 %[facility] HospitalH (RBC) [Entitic mass]28.1 pg26.0 - 34.0 pgUnSt. Rita's HospitalHC (RBC) [Mass/Vol]33.0 g/dL 32.0 - 36.0 g/dLShelby Memorial HospitalV (RBC) [Entitic vol]85 fL80 - 100 fLUniFostoria City HospitalMonocytes (Bld) [#/Vol]0.87 10*3/uL [facility] InstituteMonocytes/100 WBC (Bld)7.3 %2.0 - 10.0 % [facility] InstituteNeutrophils (Bld) [#/Vol]8.28 10*3/uLZanesville City HospitalComment on above:Percent differential counts (%) should be interpreted in the context of the absolute cell counts (cells/uL). Neutrophils/100 WBC (Bld)69.9 %40.0 - 80.0 %[facility] Nucleated RBC/100 WBC (Bld) [Ratio]0.0 %[facility] Platelets (Bld) [#/Vol]307 10*3/[facility] HospitalRBC (Bld) [#/Vol]4.27 10*6/[facility] HospitalWBC (Bld) [#/Vol]11.9 10*3/[facility] Medical CenterUnOhioHealth O'[facility] Hospital Basophils (Bld) [#/Vol]0.06 x10*3/uLNormal0.00-0.10UnSouthwest General Health CenterComment on above:Performed By: #### 48403-8 ####ANASTACIO Hodge ([id number])[facility] ([facility])[address] [place], [place] [address]Lgivngxfw/100 WBC (Bld)0.5 %Normal0.0-2.0UnSouthwest General Health CenterComment on above:Performed By: #### 88054-9 ####ANASTACIO WOOD L ([id number])[facility] ([facility])[address] [place] [address] Eosinophils (Bld) [#/Vol]0.40 x10*3/uLNormal0.00-0.70Community Memorial HospitalComment on above:Performed By: #### 91193-0 ####ANASTACIO Hodge ([id number])[facility] ([facility])[address] [place], [place] [address]Hpuuooxmhcj/100 WBC (Bld)3.4 %Normal0.0-6.0UnSouthwest General Health CenterComment on above:Performed By: #### 77850-9 ####ANASTACIO Hodge ([id number])[facility] ([facility])[address] [place] [address] Erythrocyte distribution width (RBC) [Ratio]13.1 %Tvfkie71.5-14.5Community Memorial HospitalComment on above:Performed By: #### 75413-7 ####ANASTACIO Hodge (69905)[facility] ([facility])[address] [place], [place] [address]Qbvxlabvkp (Bld) [Volume fraction]36.4 %Low41.0-52.0Community Memorial HospitalComment on above:Performed By: #### 52521-0 ####ANASTACIO Hodge ([id number])[facility] ([facility])[address] [place], [place] [address]Dztbrpkxse (Bld) [Mass/Vol]12.0 g/dLLow13.5-17.5Community Memorial HospitalComment on above:Performed By: #### 84345-6 ####ANASTACIO Hodge ([id number])[facility] ([facility])[address] [place], [place] [address]Egcofxwx granulocytes (Bld) [#/Vol]0.17 x10*3/uLNormal0.00-0.70[facility] Memorial HospitalComment on above:Performed By: #### 99097-6 ####ANASTACIO Hodge ([id number])[facility] ([facility])[address] [place], [place] [address]Mbeilujb granulocytes/100 WBC (Bld)1.4 %High0.0-0.9UnSouthwest General Health CenterComment on above:Result Comment: Immature Granulocyte Count (IG) includes promyelocytes, myelocytes and metamyelocytes but does not include bands. Percent differential counts (%) should be interpreted in the context of the absolute cell counts (cells/UL).Performed By: #### 97169-3 ####ANASTACIO Hodge ([id number])[facility] ([facility])[address] [place], [place] [address]Rizjqtgtzzq (Bld) [#/Vol]2.07 x10*3/uLNormal1.20-4.80UnSouthwest General Health CenterComment on above:Performed By: #### 52266-0 ####ANASTACIO Hodge ([id number])[facility] ([facility])[address] [place] [address]Jdhzolsowhg/100 WBC (Bld)17.5 %Acxfon35.0-44.0UnSouthwest General Health CenterComment on above:Performed By: #### 84265-5 ####ANASTACIO Hodge ([id number])[facility] ([facility])[address] [place], [place] [address]UNF (RBC) [Entitic mass]28.1 cmQjpvex55.0-34.0UnSouthwest General Health CenterComment on above:Performed By: #### 29244-2 ####ANASTACIO Hodge ([id number])[facility] ([facility])[address] [place], [place] [address]QFNO (RBC) [Mass/Vol]33.0 g/yUBobwog26.0-36.0UnSouthwest General Health CenterComment on above:Performed By: #### 14542-2 ####ANASTACIO Hodge ([id number])[facility] ([facility])[address] [place] [address]QCC (RBC) [Entitic vol]85 uBIupset30-001XkmkdnsespSouthwest General Health CenterComment on above:Performed By: #### 48786-5 ####ANASTACIO Hodge ([id number])[facility] ([facility])[address] [place], [place] [address]Pjnhfprlw (Bld) [#/Vol]0.87 x10*3/uLNormal0.10-1.00[facility] Comment on above:Performed By: #### 58808-6 ####ANASTACIO Hodge ([id number])[facility] ([facility])[address] [place], [place] [address]Hordguhug/100 WBC (Bld)7.3 %Normal2.0-10.0[facility] Memorial HospitalComment on above:Performed By: #### 31093-0 ####ANASTACIO Hodge ([id number])[facility] ([facility])[address] [place], [place] [address]Pbmtlofamvn (Bld) [#/Vol]8.28 x10*3/uLHigh1.20-7.70UnSouthwest General Health CenterComment on above:Result Comment: Percent differential counts (%) should be interpreted in the context of the absolute cell counts (cells/uL).Performed By: #### 47099-1 ####ANASTACIO Hodge ([id number])[facility] ([facility])[address] [place], [place] [address]Xljitnrymmt/100 WBC (Bld)69.9 %Tbkcaj16.0-80.0Community Memorial HospitalComment on above:Performed By: #### 99041-7 ####ANASTACIO Hodge (36596)[facility] ([facility])[address] [place], [place] [address]Hdyjwsjwy RBC/100 WBC (Bld) [Ratio]0.0 /100 WBCsNormal0.0-0.0Community Memorial HospitalComment on above:Performed By: #### 20317-8 ####ANASTACIO Hodge (62063)[facility] ([facility])[address] [place], [place] [address]Zvrsovqrb (Bld) [#/Vol]307 x10*3/nJUvapgb756-010WswjzvztcsSouthwest General Health CenterComment on above:Performed By: #### 75879-9 ####ANASTACIO Hodge ([id number])[facility] ([facility])[address] [place] [address]LOQ (Bld) [#/Vol]4.27 x10*6/uLLow4.50-5.90UnSouthwest General Health CenterComment on above:Performed By: #### 70391-0 ####ANASTACIO Hodge ([id number])[facility] ([facility])[address] [place] [address]ZDO (Bld) [#/Vol]11.9 x10*3/uLHigh4.4-11.3UnSouthwest General Health CenterComment on above:Performed By: #### 56769-7 ####ANASTACIO Hodge ([id number])[facility] ([facility])[address] [place] [address]Mtjwauoklqy 54-93-8100Btzwkqsox [Mass/Vol]2.12 mg/dL1.60 - 2.40 mg/dLUnOhioHealth O'Bleness HospitalMagnesium [Mass/Vol]2.12 mg/dLNormal1.60-2.40Community Memorial HospitalComment on above:Performed By: #### 30314-3 ####ANASTACIO Hodge ([id number])[facility] ([facility])[address] [place] [address]Ndnyrtvjc [Mass/Vol]on 23-93-1833Zqkhyagplabjyj and review of laboratory resultsNormalUniversAdams Memorial HospitalNo Panel Informationon 12-13-2023 [facility] InstituteBasi metabolic 2000 panelon 42-84-8716Bvtob gap [Moles/Vol]14 mmol/L10 - 20 mmol/[facility] CenterCalcium [Mass/Vol]7.8 mg/dLLow8.6 - 10.6 mg/dLRiverview Health InstituteChloride [Moles/Vol]103 mmol/L98 - 107 mmol/[facility] CenterCO2 [Moles/Vol]25 mmol/L21 - 32 mmol/[facility] CenterCreatinine [Mass/Vol]0.87 mg/dL0.50 - 1.30 mg/dLUnOhioHealth O'Bleness HospitaleGFR- PINF [facility] InstituteComment on above:Calculations of estimated GFR are performed using the 2020 CKD-EPI Study Refit equation without therace variable for the IDMS-Traceable creatinine methods. https://jasn.asnjournals.org/content/early//ASN.9951125240 Glucose [Mass/Vol]89 mg/dL74 - 99 mg/dLUnOhioHealth O'Bleness Hospital Interpretation and review of laboratory resultsAbnormalUniFostoria City HospitalPotassium [Moles/Vol]3.4 mmol/LLow3.5 - 5.3 mmol/[facility] CenterSodium [Moles/Vol]139 mmol/L136 - 145 mmol/[facility] CenterUrea nitrogen [Mass/Vol]14 mg/dL6 - 23 mg/dLUnOhioHealth O'Bleness HospitalAnion gap [Moles/Vol]14 mmol/JHrhzab04-78YjuerqvkfySouthwest General Health CenterComment on above:Performed By: #### 32350-0 ####ANASTACIO Hodge ([id number])[facility] ([facility])[address] [place], [place] [address]Odvxbwr [Mass/Vol]7.8 mg/dLLow8.6-10.6UnSouthwest General Health Center Comment on above:Performed By: #### 27021-8 ####ANASTACIO Hodge ([id number])[facility] ([facility])[address] [place], [place] [address]Dotncbkl [Moles/Vol] 103 mmol/CQgvhvd55-939CkydyeamxrSouthwest General Health CenterComment on above:Performed By: #### 77051-8 ####ANASTACIO Hodge (72071)[facility] ([facility])[address] [place], [place] [address]MD8 [Moles/Vol]25 mmol/TUunkvx64-96 [facility] Memorial HospitalComment on above:Performed By: #### 80039-3 ####ANASTACIO Hodge ([id number])[facility] ([facility])[address] [place], [place] [address]Xwtgrtxpce [Mass/Vol]0.87 mg/dLNormal0.50-1.30 [facility] HospitalComment on above:Performed By: #### 80453-4 ####ANASTACIO Hodge (59651)[facility] ([facility])[address] [place], [place] [address]APX/1.73 sq M.predicted MDRD (S/P/Bld) [Vol rate/Area] mL/min/{1.73_m2}Normal>60UnSouthwest General Health CenterComment on above:Result Comment: Calculations of estimated GFR are performed using the 2020 CKD-EPI Study Refit equation without the race variable for the IDMS-Traceable creatinine methods. https://jasn.asnjournals.org/content/early//ASN.4855184843Uowzpjiqz By: #### 24654-6 ####ANASTACIO Hodge ([id number])[facility] ([facility])[address] [place], [place] [address]Dyooyrc [Mass/Vol]89 mg/rVPirfff66-42WegyyuuvlmSouthwest General Health CenterComment on above:Performed By: #### 09486-1 ####ANASTACIO Hodge ([id number])[facility] ([facility])[address] [place], [place] [address]Rcqjngtpa [Moles/Vol]3.4 mmol/LLow3.5-5.3Community Memorial HospitalComment on above:Performed By: #### 76499-1 ####ANASTACIO Hodge (34766)[facility] ([facility])[address] [place], [place] [address]Pyfnzt [Moles/Vol]139 mmol/RYjiiio182-222HvtopvslhxSouthwest General Health Center Comment on above:Performed By: #### 40213-4 ####ANASTACIO Hodge (09008)[facility] ([facility])[address] [place], [place] [address]Xlzg nitrogen [Mass/Vol]14 mg/dLNormal6-23Community Memorial HospitalComment on above:Performed By: #### 07121-9 ####ANASTACIO Hodge ([id number])[facility] ([facility])[address] [place], [place] [address]DPT W Auto Differential panel (Bld)on 12-90-0493Qsnxgbsdd (Bld) [#/Vol]0.07 10*3/[facility] Basophils/100 WBC (Bld)0.5 %0.0 - 2.0 %[facility] Eosinophils (Bld) [#/Vol]0.26 10*3/[facility] Eosinophils/100 WBC (Bld)2.0 %0.0 - 6.0 %[facility] Erythrocyte distribution width (RBC) [Ratio]12.8 %11.5 - 14.5 %[facility] InstituteHematocrit (Bld) [Volume fraction]34.8 %Low41.0 - 52.0 % [facility] InstituteHemoglobin (Bld) [Mass/Vol]11.8 g/dLLow13.5 - 17.5 g/dLUnOhioHealth O'Bleness HospitalImmauniversity hospitals conneaut medical center granulocytes (Bld) [#/Vol] 0.10 10*3/[facility] HospitalImellett memorial hospital granulocytes/100 WBC (Bld) 0.8 %0.0 - 0.9 %[facility] InstituteComment on above:Immature Granulocyte Count (IG) includes promyelocytes, myelocytes and metamyelocytes but does not include bands. Percent differential counts (%) should be interpreted in the context of the absolute cell counts (cells/UL).Interpretation and review of laboratory resultsAbnormalUniFostoria City HospitalLymphocytes (Bld) [#/Vol]1.93 10*3/[facility] HospitalLymphocytes/100 WBC (Bld) 14.7 %13.0 - 44.0 %[facility] InstituteMCH (RBC) [Entitic mass]27.8 pg26.0 - 34.0 pgRiverview Health InstituteMCHC (RBC) [Mass/Vol]33.9 g/dL 32.0 - 36.0 g/dLRiverview Health InstituteMCV (RBC) [Entitic vol]82 fL80 - 100 fLUniFostoria City HospitalMonocytes (Bld) [#/Vol]1.09 10*3/[facility] - AkronMonocytes/100 WBC (Bld)8.3 %2.0 - 10.0 % [facility] InstituteNeutrophils (Bld) [#/Vol]9.66 10*3/uLZanesville City HospitalComment on above:Percent differential counts (%) should be interpreted in the context of the absolute cell counts (cells/uL). Neutrophils/100 WBC (Bld)73.7 %40.0 - 80.0 %[facility] Nucleated RBC/100 WBC (Bld) [Ratio]0.0 %[facility] Platelets (Bld) [#/Vol]296 10*3/[facility] HospitalRBC (Bld) [#/Vol]4.25 10*6/[facility] Mary HospitalWBC (Bld) [#/Vol]13.1 10*3/[facility] Medical CenterUnOhioHealth O'Bleness Hospital Basophils (Bld) [#/Vol]0.07 x10*3/uLNormal0.00-0.10Community [facility] HospitalComment on above:Performed By: #### 50848-9 #### ANASTACIO Hodge ([id number]) [facility] ([facility]) [address] [place] [address]Axpntuahu/100 WBC (Bld)0.5 %Normal0.0-2.0UnSouthwest General Health CenterComment on above:Performed By: #### 73040-5 #### ANASTACIO Hodge (25360) [facility] ([facility]) [address] [place], [place] [address]Kxlgdzxpeqf (Bld) [#/Vol]0.26 x10*3/uLNormal0.00-0.70 [facility] HospitalComment on above:Performed By: #### 64932-0 #### ANASTACIO Hodge ([id number]) [facility] ([facility]) [address] [place] [address]Gndogxcdbbk/100 WBC (Bld)2.0 %Normal0.0-6.0UnSouthwest General Health CenterComment on above:Performed By: #### 75848-5 #### ANASTACIO Hodge (79804) [facility] ([facility]) [address] [place] [address]Hkaizdmcejf distribution width (RBC) [Ratio]12.8 %Normal 11.5-14.5UnSouthwest General Health CenterComment on above:Performed By: #### 59413-1 #### ANASTACIO Hodge ([id number]) [facility] ([facility]) [address] [place] [address]Vukflstsln (Bld) [Volume fraction]34.8 %Low41.0-52.0 [facility] HospitalComment on above:Performed By: #### 31833-9 #### ANASTACIO Hodge (07493) [facility] ([facility]) [address] [place] [address]74[address]Bewoicobun (Bld) [Mass/Vol]11.8 g/dLLow13.5-17.5UnSouthwest General Health CenterComment on above:Performed By: #### 99514-6 #### ANASTACIO Hodeg (70014) [facility] ([facility]) [address] [place] [address]Ezrhwvot granulocytes (Bld) [#/Vol]0.10 x10*3/uLNormal 0.00-0.70UnSouthwest General Health CenterComment on above:Performed By: #### 88343-0 #### ANASTACIO Hodge (20495) [facility] ([facility]) [address] [place] [address]Tozbemge granulocytes/100 WBC (Bld)0.8 %Normal0.0-0.9 [facility] HospitalComment on above:Result Comment: Immature Granulocyte Count (IG) includes promyelocytes, myelocytes and metamyelocytes but does not include bands. Percent differential counts (%) should be interpreted in the context of the absolute cell counts (cells/UL). Performed By: #### 36349-6 #### ANASTACIO Hodge (88809) [facility] ([facility]) [address] [place] [address]Mmcoypibipm (Bld) [#/Vol]1.93 x10*3/uLNormal1.20-4.80 [facility] HospitalComment on above:Performed By: #### 30011-6 #### ANASTACIO Hodge (10642) [facility] ([facility]) [address] [place] [address]96[address]Kfgcswzxdvj/100 WBC (Bld)14.7 %Lyxnpq46.0-44.0Community Memorial HospitalComment on above:Performed By: #### 07418-5 #### ANASTACIO Hodge (47655) [facility] ([facility]) [address] [place] [address] 41664ERS (RBC) [Entitic mass]27.8 kgUqgpjc95.0-34.0Community Memorial HospitalComment on above:Performed By: #### 11403-3 #### ANASTACIO Hodge (31371) [facility] ([facility]) [address] [place], [place] [address]AODJ (RBC) [Mass/Vol]33.9 g/gCFaftfm37.0-36.0UnSouthwest General Health CenterComment on above:Performed By: #### 01201-3 #### ANASTACIO Hodge (92531) [facility] ([facility]) [address] [place] [address] 15339RWP (RBC) [Entitic vol]82 nUNxbwac11-253RkjspfrigpSouthwest General Health CenterComment on above:Performed By: #### 39510-9 #### ANASTACIO Hodge (90654) [facility] ([facility]) [address] [place] [address] 244[address]Zystbylng (Bld) [#/Vol]1.09 x10*3/uLHigh0.10-1.00UnSouthwest General Health CenterComment on above:Performed By: #### 78544-2 #### ANASTACIO Hodge (50221) [facility] ([facility]) [address] [place] [address] 07[address]Hcqnvvoiu/100 WBC (Bld)8.3 %Normal2.0-10.0UnSouthwest General Health CenterComment on above:Performed By: #### 62353-3 #### ANASTACIO Hodge (67073) [facility] ([facility]) [address] [place] [address] 86807Qjxacvifnvi (Bld) [#/Vol]9.66 x10*3/uLHigh1.20-7.70UnSouthwest General Health CenterComment on above:Result Comment: Percent differential counts (%) should be interpreted in the context of the absolute cell counts (cells/uL).Performed By: #### 17516-6 #### ANASTACIO Hodge (31179) [facility] ([facility]) [address] [place] [address] 22060Ybsjndyjjqn/100 WBC (Bld)73.7 %Oovpjt98.0-80.0UnSouthwest General Health CenterComment on above:Performed By: #### 17604-4 #### ANASTACIO Hodge (15356) [facility] ([facility]) [address] [place] [address] 327[address]Qcldpvchg RBC/100 WBC (Bld) [Ratio]0.0 /100 WBCsNormal0.0-0.0 [facility] HospitalComment on above:Performed By: #### 05929-6 #### ANASTACIO Hodge (50421) [facility] ([facility]) [address] [place] [address] 127[address]Jhrjpihdd (Bld) [#/Vol]296 x10*3/zZBeyupr166-652BkrjlnqoxuSouthwest General Health CenterComment on above:Performed By: #### [id number] #### ANASTACIO Hodge ([id number]) [facility] ([facility]) [id number] [place] [address] 68054ICM (Bld) [#/Vol]4.25 x10*6/uLLow4.50-5.90[facility] HospitalComment on above:Performed By: #### [id number] #### ANASTACIO Hodge ([id number]) [facility] ([facility]) [id number] [place] [address] 53595ZPY (Bld) [#/Vol]13.1 x10*3/uLHigh4.4-11.3[facility] HospitalComment on above:Performed By: #### [id number] #### ANASTACIO Hodge ([id number]) [facility] ([facility]) [address] [place] [address] 69079Hjprjgeuael [id number] [Mass/Vol]1.81 mg/dL1.60 - 2.40 mg/dLRiverview Health InstituteMagnesium [Mass/Vol]1.81 mg/dLNormal 1.60-2.40[facility] HospitalComment on above:Performed By: #### 47093-6 #### ANASTACIO Hodge ([id number]) [facility] ([facility]) [address] [place] [address] 96720Faandldse [Mass/Vol]on 31-31-6984Jlpvpvwqjnznja and review of laboratory resultsNormalUniFostoria City HospitalNo Panel Informationon [id number] Health InstituteECG 12-LEADon 31-42-5829SUN 12-LEAD Ventricular Rate 104 Atrial Rate 104 P-R Interval 154 QRS Duration 94 Q-T Interval 346 QTC Calculation(Bazett) 454 P [place] 43 R [place] 9 T [place] 27 QRS Count 17 Q Onset 216 P Onset 139 P Offset 196 T Offset 389 QTC Fredericia 415 Diagnosis Sinus tachycardia Minimal voltage criteria for LVH, may be normal variant Borderline ECG No previous ECGs available Confirmed by Dustin Lyman ([id number]) on 12/14/2023 2:58:33 [facility] ClinicXR ABDOMEN 1 VIEWon [id number] ABDOMEN 1 VIEWInterpreted By: Victoriano Warren and Liller Gregory STUDY: XR ABDOMEN 1 VIEW; 12/11/2023 12:18 pm INDICATION: Signs/Symptoms:Confirm NG tube placement. COMPARISON: 12/10/2023 ACCESSION NUMBER(S): [id number] ORDERING CLINICIAN: MARY GRACE TAVAREZVED FINDINGS: Interval placement of enteric tube [...] Benny Matamoros. The study was interpreted at [facility] in [facility] [place] [facility]. MACRO: none Signed by: Victoriano Warren 12/11/2023 4:14 PM Dictation workstation: [id number]th Grove City Methodist HospitalXR Abdomen Single viewon . Enteric tube projects over the expected location of the gastric antrum/proximal duodenum. 2. Similar gaseous distention of multiple loops of small bowel when compared to prior exam. I personally reviewed the images/study and I agree with the findings as stated above by resident physician, Dr. Benny Matamoros. The study was interpreted at [facility] in [facility] [place] [facility]. MACRO: none Signed by: Victoriano Warren 12/11/2023 4:14 PM Dictation workstation: [id number] MMODALInterpreted By: Victoriano Warren and Liller Gregory STUDY: XR ABDOMEN 1 VIEW; 12/11/2023 12:18 pm INDICATION: Signs/Symptoms:Confirm NG tube placement. COMPARISON: 12/10/2023 ACCESSION NUMBER(S): [id number] ORDERING CLINICIAN: MARY GRACE TAVAREZVED FINDINGS: Interval placement of enteric tube which projects over the expected location of the gastric antrum/proximal duodenum. Similar gaseous distention of multiple loops of bowel when compared to prior exam measuring up to 4.7 cm. No evidence to suggest pneumoperitoneum. Visualized lungs are clear. No acute osseous injury. Laci Toussaint MD - 12/11/2023 Interpreted By: Victoriano Warren and Liller Gregory STUDY: XR ABDOMEN 1 VIEW; 12/11/2023 12:18 pm INDICATION: Signs/Symptoms:Confirm NG tube placement. COMPARISON: 12/10/2023 ACCESSION NUMBER(S): [id number] ORDERING CLINICIAN: MARY GRACE CAI FINDINGS: Interval placement of enteric tube [...] Benny Matamoros. The study was interpreted at [facility] in [facility] [place] [facility]. MACRO: none Signed by: Victoriano Warren 12/11/2023 4:14 PM Dictation workstation: [id number] [facility] Work Phone: UnOhioHealth O'Bleness Hospital Work Phone: Radiology Study observation (narrative)[facility] Work Phone: [phone]. Gaseous distention of multiple loops of bowel throughout the abdomen with overall nonobstructive bowel gas pattern. Findings compatible with postoperative ileus. 2. Postsurgical changes as described above. I personally reviewed the images/study and I agree with Leti Dumont DO's (financial institution president) findings as stated. This study was interpreted at [place], [place]. MACRO: None Signed by: Victoriano Warren 12/11/2023 11:13 AM Dictation workstation: [id number] MMODALInterpreted By: Victoriano Warren and Stephens Katherine STUDY: XR ABDOMEN 1 VIEW; 12/10/2023 11:52 pm INDICATION: Signs/Symptoms:c/f postop ileus. COMPARISON: Pelvic radiographs 12/08/2023 ACCESSION NUMBER(S): [id number] ORDERING CLINICIAN: ROXANNA BERMAN FINDINGS: Postsurgical changes [...] Osseous structures demonstrate no acute bony changes. Laci Belle MD - 12/11/2023 Interpreted By: Victoriano Warren and Stephens Katherine STUDY: XR ABDOMEN 1 VIEW; 12/10/2023 11:52 pm INDICATION: Signs/Symptoms:c/f postop ileus. COMPARISON: Pelvic radiographs 12/08/2023 ACCESSION NUMBER(S): [id number] ORDERING CLINICIAN: ROXANNA BERMAN FINDINGS: Postsurgical changes [...] and I agree with Leti Dumont DO's (financial institution president) findings as stated. This study was interpreted at [place], [place]. MACRO: None Signed by: Victoriano Warren 12/11/2023 11:13 AM Dictation workstation: [id number] [facility] Work Phone: xr Abdomen Single viewOrdered By: Laci Warren on 59-01-6555WcfbpegycgOhioHealth O'Bleness Hospital Work Phone: [facility] panelon 92-16-1003Uumlj gap [Moles/Vol]14 mmol/L10 - 20 mmol/[facility] Medical CenterCalcium [Mass/Vol]9.3 mg/dL8.6 - 10.6 mg/dLUnOhioHealth O'Bleness HospitalChloride [Moles/Vol]95 mmol/LLow98 - 107 mmol/[facility] Medical CenterCO2 [Moles/Vol]31 mmol/L21 - 32 mmol/[facility] Medical CenterCreatinine [Mass/Vol]1.01 mg/dL0.50 - 1.30 mg/dLUnOhioHealth O'Bleness HospitaleGRegional Medical CenterComment on above:Calculations of estimated GFR are performed using the 2020 CKD-EPI Study Refit equation without therace variable for the IDMS-Traceable creatinine methods. https://jasn.asnjournals.org/content//ASN.8277838423 Glucose [Mass/Vol]109 mg/fQTzln99 - 99 mg/dLUnOhioHealth O'Bleness Hospital Interpretation and review of laboratory resultsAbnormalUniFostoria City HospitalPotassium [Moles/Vol]4.2 mmol/L3.5 - 5.3 mmol/[facility] Medical CenterSodium [Moles/Vol]136 mmol/L136 - 145 mmol/[facility] Medical CenterUrea nitrogen [Mass/Vol]12 mg/dL6 - 23 mg/dLUnOhioHealth O'Bleness HospitalUnOhioHealth O'Bleness HospitalAnion gap [Moles/Vol]14 mmol/LNormal 10-20UnSouthwest General Health CenterComment on above:Performed By: #### 99992-5 #### ANASTACIO Hodge ([id number]) [facility] ([facility]) [address] [place] [address] 78454Zvwzqhm [Mass/Vol]9.3 mg/dLNormal8.6-10.6UnSouthwest General Health CenterComment on above:Performed By: #### 51553-1 #### ANASTACIO Hodge ([id number]) [facility] ([facility]) [address] [place], [place] [address]Wvfenlbl [Moles/Vol]95 mmol/JRrq72-410EgsurgejtdSouthwest General Health CenterComment on above:Performed By: #### 17047-5 #### ANASTACIO Hodge ([id number]) [facility] ([facility]) [address] [place], [place] [address]LJ4 [Moles/Vol]31 mmol/FBevlmj15-00OakhfqrepgSouthwest General Health CenterComment on above:Performed By: #### 25670-6 #### ANASTACIO Hodge ([id number]) [facility] ([facility]) [address] [place], [place] [address]Qblrivsmnq [Mass/Vol]1.01 mg/dLNormal0.50-1.30Community Memorial HospitalComment on above:Performed By: #### 84776-1 #### ANASTACIO Hodge ([id number]) [facility] ([facility]) [address] [place], [place] [address]ZIT/1.73 sq M.predicted MDRD (S/P/Bld) [Vol rate/Area] mL/min/{1.73_m2}Normal>60UnSouthwest General Health CenterComment on above:Result Comment: Calculations of estimated GFR are performed using the 2020 CKD-EPI Study Refit equation without the race variable for the IDMS-Traceable creatinine methods. https://jasn.asnjournals.org/content//ASN.3443075470Cstvtuumb By: #### 36942-7 #### ANASTACIO Hodge ([id number]) [facility] ([facility]) [address] [place], [place] [address]Sxfbhah [Mass/Vol]109 mg/rIEhrv01-96PlbrogdxriSouthwest General Health CenterComment on above:Performed By: #### 62914-1 #### ANASTACIO Hodge ([id number]) [facility] ([facility]) [address] [place], [place] [address]Kzmnyadfl [Moles/Vol]4.2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 Liverpool City Hospitaltart: 11-13-2024 End: 99-52-0033xpjwbwbposQLAU S BIEDENBACHNot AvailableStart: 11-13-2024 End: 89-70-0061Guesxf flowsheetPaul S Biedenbach DO Work Phone: [facility] NORWALKStart: 11-13-2024 End: 74-69-4842Zozxmn flowsheetPaul S Biedenbach DO Work Phone: [facility] NORWALKStart: 11-13-2024 End: 31-74-4673Fnlbpe outpatient new 45 minutesPaul S Biedenbach DO Work Phone: [facility] NORWALKComment on above:History of facial trauma (Primary Dx); Chronic sinusitis, unspecified location; Nasal polyp; Nasal septal deviation; Allergic rhinitis, unspecified seasonality, unspecified triggerStart: 10-19-2024 End: 02-62-5084uukztgxcugZdumdspnfTrinity Health System Work Phone: Start: 10-19-2024 End: 39-04-0526Fuiubtj encounter procedureValentin Physician [facility] Work Phone: Start: 09-26-2024 End: 32-96-6091lkiuntjzsePvkxog E Braun MD Work Phone: [facility] Work Phone: Start: 09-26-2024 End: 75-82-3905Pioprhl encounter procedureChantal Mart MD Work Phone: [facility] Work Phone: Start: 09-04-2024 End: 84-46-4038nophdqveirHNFDSDVGOhioHealth Mansfield Hospitaltart: 09-03-2024 End: 86-05-3605Itahayy encounter procedureChantal Mart MD Work Phone: [facility] Work Phone: Start: 73-86-9473Ujf-patient / Non-visitChantal Mart MD Work Phone: [facility] Work Phone: Start: 06-45-3673Hgf-patient / Non-visitChantal Mart MD Work Phone: [facility] Phys[facility] Work Phone: Start: 08-07-2024 End: 28-36-7341xhlljuhgdxXZOGKNVNOhioHealth Mansfield Hospitaltart: 07-16-2024 End: 01-75-4186jfaogjlfcfZfkljemGiorgio Clark MDFacility:TERRY Killian Start: 07-11-2024 End: 26-99-1250Teyztwa encounter procedureChantal Mart MD Work Phone: [facility] Work Phone: Start: 60-68-2012Lgr-patient / Non-visitChantal Mart MD Work Phone: [facility] Work Phone: Start: 07-09-2024 End: 50-71-2587Kypbmmk encounter procedureChantal Mart MD Work Phone: [facility] Work Phone: Start: 07-09-2024 End: 39-72-0058vbefmfnlvtRmldkm E BraunFacility:[facility]art: 07-02-2024 End: 05-50-0010Mkztchj encounter procedureChantal Mart MD Work Phone: [facility] Work Phone: Start: 06-22-2024 End: 56-71-2655xnkyddiutmBCDWTGKYOhioHealth Mansfield Hospitaltart: 06-22-2024 End: 18-60-0899okgqvmtpkoDCNDFEOZOhioHealth Mansfield Hospitaltart: 05-23-2024 End: 73-35-2909Zenabp outpatient visit 25 minutesAdam Navarro MD Work Phone: [facility] [place]villeComment on above: Pelvic pain (Primary Dx)Start: 05-23-2024 End: 89-44-6170Wdkauuoier hospital visit by physician[facility] Flavio5f X-Ray 2[facility] Bolhighsmith-rainey specialty hospitalComment on above:Pelvic painStart: 05-23-2024 End: 53-25-9839nguwnrkgjkYFRWZU K [place] Hospitaltart: 05-21-2024 End: 39-40-0430tlucxswvjiPjxeape Vytautas Giedraitis MDFacility:[facility] [place] Start: 05-14-2024 End: 55-40-1612itscerfkluYhwdblu Vytautas Giedraitis Facility:[facility] Start: 02-29-2024 End: 12-55-6536sacxhawxsjTIYMSA K [place] Hospitaltart: 02-01-2024 End: 32-08-3058Cwgbvb follow up visit related to original Daryl Navarro MD Work Phone: [facility] DurandComment on above:Pelvic pain (Primary Dx)Start: 02-01-2024 End: 34-49-2669Uplrzruvgu hospital visit by physicianO[facility]1200 X-Ray 2[facility] CenterComment on above:Pelvic painStart: 02-01-2024 End: 14-68-0152kqiaskevszYANDOZHighlands-Cashiers Hospital AmbulatoryStart: 12-28-2023 End: 12-32-8561Xhtkgo follow up visit related to original Daryl Navarro MD Work Phone: [facility] DurandComment on above:Pelvic painStart: 12-28-2023 End: 84-00-5933Vivdnsoodb hospital visit by physicianOceans [facility]al [facility] Biloxi1200 X-Ray 3[facility] County Health CenterComment on above:Pelvic painStart: 12-28-2023 End: 42-42-8758mvbbzicmwyNUOXJVJasper Memorial Hospital AmbulatoryStart: 12-08-2023 End: 48-04-9888Iyfiiazknm and management of inpatientAdam Navarro MD Work Phone: [facility] Darrian Blas 6Comment on above:Pelvic pain (Primary Dx); Acute postoperative painStart: 11-30-2023 End: 90-93-1473Ryqxbj outpatient new 60 Ezequiel Navarro MD Work Phone: [facility] DurandComment on above:Pelvic pain (Primary Dx)Start: 11-30-2023 End: 13-77-4863Zenrbxdgth hospital visit by physicianO[facility] Biloxi1200 X-Ray 2[facility] County Health CenterComment on above:Pelvic painStart: 11-30-2023 End: 08-33-3200ppxymtykacSCWBBPJasper Memorial Hospital AmbulatoryStart: 09-19-2023 End: 81-72-3373awchdzxfjtTibdrt Mart Other [employer] Other Start: 34-50-0137Egzhha outpatient visit 15 minutes Chantal [facility] ClinicStart: 09-19-2023 End: 20-17-9864qwphalimrbVzoyjod Vytautas Giedraitis MDFacility:[facility] [place] Start: 09-16-2023 End: 17-85-7507Tlkvojygg department patient visitKaylinsilvino WiseenFacility:[facility] Start: 08-22-2023 End: 51-23-8207wfeiayipqpCwmcdap Vytautas Giedraitis MDFacility:[facility] [place] Start: 08-17-2023 End: 65-55-9843qhcoqdfycyUhuywo Mart Other [employer] Other Start: 60-11-7899Taojbfecy encounterMarcia BarronOhioHealth Dublin Methodist Hospital ClinicStart: 07-26-2023 End: 28-19-9297pxnuypzdbyMcydxu Mart Other [employer] Other Start: 92-63-6957Kaqgbz outpatient visit 15 minutes Chantal [facility] ClinicStart: 07-18-2023 End: 41-93-7590fwdkmkqdhnDpboqn Mart Other [employer] Other Start: 45-91-8378Nkysrrxqn encounterMarcia Jennifer [facility] ClinicStart: 06-03-2023 End: 50-42-2883alunnvbfelJuwxib Mart Other [employer] Other Start: 89-34-1858Zaixpb outpatient visit 15 minutes Chantal [facility] ClinicStart: 05-27-2023 End: 27-22-1713brdvrkliptJswhda Mart Other [employer] Other start: 08-87-9120Otfndeokg encounterMarciphyllis [facility] ClinicStart: 02-11-2023 End: 50-93-8452zujetjpmxmIhiyum Mart Other [employer] Other Start: 27-54-1316Ldxsaf outpatient visit 15 minutes Chantal [facility] ClinicStart: 77-34-3073Sgducfsdt encounterMarciphyllis [facility] ClinicStart: 12-10-2022 End: 13-32-5199itgvwnaogpGJ CHANTAL Gonzalez [place] [employer] Other Start: 12-02-2022(Televisit) TelevisitChantal [facility] ClinicStart: 12-02-2022 End: 02-34-6878pqxqvxgkbvYcemet Mart Other [address] Other Start: 11-02-2022 End: 02-83-1052evrvngpxenLrkcpdjj Ball Other [employer] Other Start: 95-06-0093Vjbimm outpatient visit 15 minutes Austin [facility] ClinicStart: 10-29-2022 End: 37-54-4355tdqslrwyrlSfvwtj Mart Other [employer] Other Start: 47-44-2436Zxrgdtvxs encounterMarciphyllis [facility] ClinicStart: 10-27-2022 End: 25-11-9019gtbxflwxhjHrimrs Mart Other no[employer]ook[employer] Other Start: 39-36-1336Pnjadt outpatient visit 15 minutes Chantal [facility] ClinicStart: 09-16-2022 End: 17-76-5187dqydnyyfhtBR ALLYSON PANTOJA .Facility:E5Nvksa: 07-06-2022 End: 78-61-3270tsdmkeauhrJZ CHANTAL MARTFacility:T5Cgdzq: 06-24-2022 End: 78-10-1807bptvqnheuuGO ALLYSON S PANTOJA .Facility:Y1Mmnpp: 06-01-2022 End: 83-60-9110mbvtzuqguwZT ALLYSON S PANTOJA .Facility:S6Qgrna: 05-13-2022 End: 18-70-8607inbqaacjehBH ALLYSON S PANTOJA .Facility:O4Qqlxo: 04-20-2022 End: 67-30-8844ajseacwincGR ALLYSON S PANTOJA .Facility:T9Urlpi: 04-01-2022 End: 16-29-2255bsmbukearxTDQI MA .Facility:J5Tvwbk: 03-31-2022 End: 42-85-0085wudjstweafIB MARCIA E BRAUNFacility:I8Lwzcl: 12-24-2021 End: 84-08-8191qwvloakuwkCS MARCIA E BRAUNFacility:J9Miecy: 02-25-2021 End: 57-95-7580vnozedvagsHQKHZOGlenn Medical Centertart: 02-25-2021 End: 91-65-4474Cvamjjbepm hospital visit by Cash Shah MD Work Phone: [facility] CT ScanComment on above:Arrived Lumbar radiculopathy; Lumbar spondylosis; Bilateral low back pain with sciatica, sciatica laterality unspecified, unspecified chronicity Procedures DateProcedureProcedure DetailPerforming ClinicianStart: 06-68-9471Wedyzovwhuzt myocardial perfusion stress studyChantal Mart MD Work Phone: Start: 57-88-1803BRSITMFBW PATIENTJOLOVERING COLONY STATE HOSPITALStart: 38-12-8108JMDOUVXG CERTIFICATIONJOLOVERING COLONY STATE HOSPITALStart: 44-22-8342RIWBW DISCHARGE DIETJOLOVERING COLONY STATE HOSPITALStart: 13-88-7054DGXOLXBZQO ADMINISTRATIONJOMorton Hospitalart: 21-29-7528LVRJZF PROVIDER (DO NOT PROMPT FOR PARAMETERS)[facility] Hospitalart: 52-96-5910NFI DISCHARGE POTENTIALJOMorton Hospitalart: 49-66-6261GMF LEVEL OF CARE [facility] Hospitalart: 11-94-4442DYH RECEIVING AGENCY STANDING ORDERSADAM NAVARRO Start: 69-11-0158MMT REHAB POTENTIALJONAOMI PRASADWEST PALM BEACHStart: 14-87-6634SYWWL SIGNS [facility]OSPITALStart: 70-03-9098Rwnqg metabolic 2000 panel - Serum or PlasmaJOSHUA NAPORAStart: 83-64-2423JOK W Auto Differential panel - BloodJOSHUA NAPWEST PALM BEACHStart: 91-39-6183Lsydgocwx [Mass/volume] in Serum or PlasmaJOSHUA NAPORAStart: 17-45-7368Nhunu metabolic panel calcium Gerda Zendejas MD Work Phone: Start: 44-08-1892Mcttq metabolic 2000 panel - Serum or PlasmaJOSHUA NAPORAStart: 81-49-4176DKF W Auto Differential panel - BloodJOSHUA NAPWEST PALM BEACHStart: 18-04-7362Pvdyfazry [Mass/volume] in Serum or PlasmaJOSHUA NAPORA Start: 68-61-3367Gciyj metabolic panel calcium shiraRywilmar Zendejas MD Work Phone: Start: 48-41-2051RTJ 12-LEADJOSHUA NAPWEST PALM BEACHStart: 09-22-8383Rllnu metabolic 2000 panel - Serum or PlasmaJOSHUA NAPWEST PALM BEACHStart: 71-42-6439VPS W Auto Differential panel - BloodJOSHUA [facility]LEY HOSPITALStart: 12-12-2023 Magnesium [Mass/volume] in Serum or PlasmaJOSHUA NAPORAStart: 10-90-6954Dglym metabolic panel calcium shiraRywilmar Zendejas MD Work Phone: Start: 96-81-8209YJV 12-LEADJOSHUA NAPORAStart: 43-60-7746Prs routine ecg w/least 12 lds trcg only w/o i&rRomeo Arthur DPM Work Phone: Start: 01-19-7274PN ABDOMEN 1 [facility]IEWSAINT [facility]STDE[facility] HOSPITALStart: 49-81-6389Tzcuqlvtjd exam abdomen 1 sumaTomijohn Cai MD Work Phone: Start: 34-71-2123PYCBDQDNJJQ TUBE INSERTIONJOLOVERING COLONY STATE HOSPITALStart: 76-78-7498KG ABDOMEN 1 VIEWJOLOVERING COLONY STATE HOSPITALStart: 07-27-6026Mymyfftwkj exam abdomen 1 viewRoxanna Berman MD Work Phone: Start: 37-38-8453Gztkv metabolic 2000 panel - Serum or PlasmaJOLOVERING COLONY STATE HOSPITALStart: 80-45-1658WOE W Auto Differential panel - BloodJOLOVERING COLONY STATE HOSPITALStart: 94-60-7079Xjcil metabolic panel calcium totalFausto Zendejas MD Work Phone: Start: 81-35-5893JSWED OXIMETRY, CONTINUOUSJOLOVERING COLONY STATE HOSPITALStart: 03-67-1112OZFVH OXIMETRY, CONTINUOUSRomeo Marie-Jose Guadalupe DPM Work Phone: Start: 49-33-6071SHQPA TO INPATIENTJOMorton Hospitalart: 68-98-0093CR FLUORO IMAGES NO CHARGEJOLOVERING COLONY STATE HOSPITALStart: 38-12-8955LV PELVIS 1-2 VIEWSLAHEY HOSPITAL & MEDICAL CENTERStart: 77-56-5180DE tomography Unspecified body regionAdam Navarro MD Work Phone: Start: 04-81-9026Ehwqsdijbf examination pelvis 1/2 Daniel Navarro MD Work Phone: Start: 12-28-7605USWMK/VERIFY ABORHJOMorton Hospitalart: 07-13-0827QDLR AND SCREENJOMorton Hospitalart: 98-91-4315Xxmrj typing serologic rh (d)Benny Dacosta DO Work Phone: Start: 12-08-2023 End: 49-48-8260Dtio ant pelvic bone fx&/dislc int fixj if pfrAdam Navarro MD Work Phone: Start: 16-95-0787SKKDR IN OUTPATIENT/HOSPITAL AMBULATORY SURGERYJOMorton Hospitalart: 00-88-7502WOJL CODEClinton Hospital: 53-17-4851WKTN REQUEST OPERATING ROOMLAHEY HOSPITAL & MEDICAL CENTERStart: 24-47-1235HA PELVIS 3+ VIEWSJOCLEVELAND CLINICORAStart: 09-41-2338Zt lumbar spine w/contrast materialJoni Shellie Elder APPLICATIONS SUPPORT SPECIALIST - REGULATORY AGENCY DIRECTOR Work Phone: start: 19-64-4719Hftynttmc procedure myelography/ct lumbarJoni Shellie Jael APPLICATIONS SUPPORT SPECIALIST - REGULATORY AGENCY DIRECTOR Work Phone: Plan of Treatment DateCare ActivityDetailAuthorStart: 17-48-3678LKzT/Tdap/Td Vaccines (2 - Td or Tdap)DTaP/Tdap/Td Vaccines (2 - Td or Tdap)[facility] Start: 80-90-0257Findna Vaccines (1 of 2)Zoster Vaccines (1 of 2)[facility] InstituteStart: 62-38-8594Uofsttebw vaccinationNOVT Healthcare Start: 02-14-2025 End: 76-69-5264Huutlkh encounter procedureNOMS ENT NORWALKComment on above: ArrivedStart: 01-03-2025 End: 19-65-3917Lewqfvq encounter procedureNOMS ENT NORWALKComment on above: ArrivedStart: 12-11-2024 End: 95-13-4767Phawgom encounter procedureNOMS ENT NORWALKComment on above: ArrivedStart: 11-28-2024 End: 82-08-7356Piqwtihuyhqo / ancillary services xwazckjnbd87/23/2025 9:00 AM EDT Ancillary Procedure [facility] [address] [place] [address] [facility] CTStart: 11-21-2024 End: 51-65-3738ZE Pelvis 3 [facility] Service Area Work Phone: Comment on above:Expected: 11/21/2024, Expires: 05/23/2025Once for 1 Occurrences starting 11/21/2024 until 11/21/2024Start: 11-21-2024 End: 31-17-0534Egfranr encounter awjdpmira73/16/2025 1:30 PM EDT Office Visit [facility] [place] [address] [address] [place] [address] [address] Department [place] [address] [facility] [place]Start: 23-08-0596Sqiufyalqt hospital visit by ifogoiilm36/16/2025 1:00 PM EDT Hospital Encounter [facility] [place] [address] [address] Pelvic painEast [facility], KnoxvilleComment on above:Pelvic painStart: 11-13-2024 End: 89-66-3544QG Maxillofacial region WO and W contrast IVCT maxillofacial wo IV contrast Imaging Routine Chronic sinusitis, unspecified location Nasal polyp Expected: 11/13/2024, Expires: 11/13/2025[facility] Work Phone: comment on above:Expected: 11/13/2024, Expires: 11/13/2025Start: 61-77-0907Leodpwrthy hospital visit by lcjobiani37/16/2024 12:59 PM EDT Hospital Encounter [facility] [place] [address] [address] [id number] Pel[facility] painEast [facility], KnoxvilleComment on above:Pelvic painStart: 04-08-2024 COVID-19 Vaccine ( season)COVID-19 Vaccine ( season) [facility]Start: 07-08-3609Ecwbuavit vaccination [facility] InstituteStart: 03-02-2024 End: 08-26-9055KJ Pelvis 3 ViewsXR pelvis 3+ views Imaging Routine Pelvic pain Expected: 03/02/2024, Expires: 01/31/2025[facility] Service Area Work Phone: Comment on above:Expected: 03/02/2024, Expires: 01/31/2025Start: 02-29-2024 End: 25-40-0164Xogaies encounter tvbmvdurx52/24/2024 1:15 PM EDT Office Visit [facility] [address] [place] [address] [place] [address] [address] Department [place] [address] [facility] 02-01-2024 End: 14-06-8304Pyfhnbh encounter hohagmowr83/26/2024 1:30 PM EDT Office Visit [facility] [address] [place] [address] [place] [address] [address] Department [place] [address] [facility]: 01-28-2024 End: 18-98-1697VX Pelvis 3 ViewsXR pelvis 3+ views Imaging Routine Pelvic pain Expected: 01/28/2024, Expires: 12/27/2024UnOhioHealth O'Bleness Hospital Work Phone: Comment on above:Expected: 01/28/2024, Expires: 12/27/2024Start: 12-28-2023 End: 44-12-4163KW Pelvis 3 [facility] Work Phone: Comment on above:Expected: 12/28/2023, Expires: 12/26/2024Once for 1 Occurrences starting 12/28/2023 until 12/28/2023Start: 31-42-7425Zwbclexymz hospital visit by yqnnuzcxd93/02/2024 Hospital Encounter [facility] [address] [place] [address] [place] [address] [address] Department [place] [address] [facility] Mp ORStart: 11-30-2023 End: 96-81-0248FQ Pelvis 3 ViewsUHHS Service Area Work Phone: Comment on above:Expected: 11/30/2023, Expires: 11/29/2024Once for 1 Occurrences starting 11/30/2023 until 11/30/2023Start: 65-81-9510QSMWX-19 Vaccine ( season)COVID-19 Vaccine ()[facility]: 78-24-9520pylmzigfddSpzkuirhgy Facility:O5Qfwgr: 64-72-3009Akichxryzo measurementCreatinine monitoringCleveland Clinic Euclid HospitalYOUnite Work Phone: start: 44-74-8087Xtniztpzg monitoringPotassium monitoringMerYOUnite Work Phone: start: 70-41-7717Tdhwsitfq vaccinationFlu vaccine (#1) [employer] Phone: start: 21-33-6940Ihhompbfc for malignant neoplasm of colonColon cancer screen colonoscopyCleveland Clinic Euclid HospitalYOUnite Work Phone: start: 86-82-8936THxL/Tdap/Td vaccine (1 - Tdap) DTaP/Tdap/Td vaccine (1 - Tdap)[employer] Phone: start: 08-61-6087Cqkumgrzz B Vaccines (1 of 3 - 19+ 3- dose series)Hepatitis B Vaccines (1 of 3 - 19+ 3-dose series)[facility]: 72-73-5273Mcoaonzcrouw Vaccine: Pediatrics and At- Risk Adult Patients (1 of 2 - PCV)Pneumococcal Vaccine: Pediatrics and At-Risk Adult Patients (1 of 2 - PCV)[facility]: 1993 Diabetes mellitus screeningDiabetes ScreeningRiverview Health Institute Start: 00-83-4809Qsbfieaol C screeningHepatitis C ScreeningRiverview Health InstituteStart: 39-38-5849SZQ screeningHIV screenCleveland Clinic Euclid HospitalYOUnite Work Phone: start: 58-02-3422GZSVG-19 Vaccine (1)COVID-19 Vaccine (1)[employer] Work Phone: start: 93-07-2177Whmoo panelLipid screenMercy Health St. Charles Hospital [employer] Work Phone: start: 02-05-6148Jbvqjeutcxab Vaccine: Pediatrics (0 to 5 Years) and At-Risk Patients (6 to 64 Years) (1 of 2 - PCV)Pneumococcal Vaccine: Pediatrics (0 to 5 Years) and At-Risk Patients (6 to 64 Years) (1 of 2 - PCV)[facility]: 78-82-0582AVF Vaccines (1 of 1 - Standard series)MMR Vaccines (1 of 1 - Standard series)[facility]: 51-75-1993Jossedzvt C screeningHepatitis C [facility] [employer] Work Phone: start: 51-22-0355QSC screeningHIV ScreeningUnSelect Medical Specialty Hospital - [facility]: 59-78-8292Oqbbz panelLipid PanelUnSelect Medical Specialty Hospital - [place]: 03-48-7530Pxbcqvyit for malignant neoplasm of colon [facility]: 14-46-8584Hnomme Adult PhysicalYearly Adult PhysicalUnOhioHealth O'Bleness HospitalComprehensive metabolic 2000 panel - Serum or PlasmaWilson Street Hospital End: 33-08-5825Tywjbfyhqu Pulse oximetry, In Phase 1Continuous Pulse oximetry, In Phase 1 Respiratory Care Routine Continuous until discontinued starting 12/08/2023[facility] Service Area Work Phone: Comment on above:Continuous until discontinued starting 12/08/2023Electrocardiogram, 12-lead PRN ACS symptomsElectrocardiogram, 12-lead PRN ACS symptoms ECG Routine As needed until discontinued starting 12/08/2023, 1 completedR[facility]SEVELT [facility] Service Area Work Phone: Comment on above:As needed until discontinued starting 12/08/2023, 1 completedElectrocardiogram, 12-lead PRN ACS symptoms Electrocardiogram, 12-lead PRN ACS symptoms ECG Routine 12/12/2023 12:34 PM EDT [facility] Work Phone: Optx ant pelvic bone fx&/dislc int fixj if pfrOpen Reduction Internal Fixation Pelvis Pelvic painVirtual [facility] Mp OR End: 72-63-0702Dyhuvxal Catheter RemovalUrethral Catheter Removal Procedures Routine Once for 1 Occurrences starting 12/09/2023 until 12/09/2023[facility] Work Phone: Comment on above:Once for 1 Occurrences starting 12/09/2023 until 12/09/2023 End: 14-11-7079Vyaecb ABO/Rh Group Test (VERAB)[facility] Work Phone: Comment on above:STAT (Lab) for 1 Occurrences starting 12/08/2023 until 12/08/2023 End: 53-95-6411FX Pelvis 3 [facility] Service Area Work Phone: Comebvy on above:Once for 1 Occurrences starting 05/23/2024 until 05/23/2024 End: 31-85-3612QW Pelvis 3 [facility] Service Area Work Phone: Comment on above:Once for 1 Occurrences starting 02/01/2024 until 02/01/2024[facility] Immunizations Immunization DateImmunizationNotesCare HnfstyavFoebhlrc18-64-6396bgyxknp toxoid, reduced diphtheria toxoid, and acellular pertussis vaccine, adsorbedAdam Navarro MD Work Phone: UnOhioHealth O'Bleness Hospital10-16-2019influenza, injectable, quadrivalent, preservative freeRolo Phoenix Work Phone: [facility] St[facility] John'sLxcatvcfxx13-47-8587acxwemqkc virus vaccine, unspecified formulationAdam Navarro MD Work Phone: [facility] Work Phone: [phone]zp and diphtheria toxoids, adsorbed, preservative free, for adult use (5 Lf of tetanus toxoid and 2 Lf of diphtheria toxoid)Adam Navarro MD Work Phone: [facility] Work Phone: [phone] toxoid, reduced diphtheria toxoid, and acellular pertussis vaccine, adsorbedMarcia Mart Other [place] [employer] Other Payers DatePayer CategoryPayerPolicy [id number] 45-87-1991CkqsArtesia General HospitalBS Member Subscriber Plan / Payer (Effective 2020-Present) Name: Aurelio Miliankarol Gonzalez Relation to Subscriber: Self Name: Prosper Milian PayerID: Not on file Type: Not on file Address: [address] [place] [id number] 09-60-2203PdqyChoctaw General Hospital CareST. MARY'S [facility] 1.2.840.691652.1.13.647.2.7.9.753137.731747.19123-49-9766Sdxjbyu 1.2.840.236102.1.13.647.2.7.3.875[id number] 2.16840.1.232131.3.579.2.33406-76-9230Johbixr58429789 2.0.1.019815.3.579.2.57764-12-2935Onaoqlc2376520 2.16.840.1.265831.3.579.2.53307-28-7349Rtqolqb1720659 2.16840.1.768916.3.579.2.21686-42-2160Lksnepo1944205 2.16840.1.497277.3.579.2.00633-71-9656Sdiqwbi8087408 2.840.1.126463.3.579.2.28903-25-8451Hlllhor2208042 2.840.1.772977.3.579.2.77072-68-7589Csamaod9129526 2.840.1.412768.3.579.2.05243-81-1698Rppdlqw8827466 2.840.1.196679.3.579.2.00727-53-9463Dwaqfdi8319361 2.840.1.591809.3.579.2.53582-90-7428Wpciynf6641237 2.840.1.834302.3.579.2.45897-21-5595Itouyim9152433 2.840.1.580538.3.579.2.86971-58-7917Knyqttq3404063 2.840.1.386623.3.579.2.51428-00-8768Otyaxgq5698731 2.840.1.638087.3.579.2.65497-95-7687Myjclgn54095340 2.840.1.216517.3.579.2.25698-20-1737Kneutxb03679314 2.840.1.893872.3.579.2.368739-88-6936Udgesch53572680 2.840.1.989715.3.579.2.160657-39-8224Ezhhbfk26093968 2..840.1.492488.3.579.2.150349-10-8226Fnyahtb566049904 2..840.1.680732.3.579.2.06821-15-1041Kpijall800403801 2..840.1.315146.3.579.2.09094-65-8354Mrtvvhb252062197 2.840.1.621102.3.579.2.83560-11-2796Wjxlfxd652119045 2.0.1.472816.3.579.2.54404-70-3231Cnfbttv106576036 2..1.893118.3.579.2.14485-49-8030Ziueotd347342410 2.0.1.973639.3.579.2.620088-37-3159Smdfrbx974007782 2.0.1.798274.3.579.2.512407-51-4534Dkqsctv35517730 2..1.886815.3.579.2.137048-96-8344Roinhwx33039660 2..1.534700.3.579.2.655321-41-9206Qwbdukm80522113 2.0.1.718913.3.579.2.729971-63-3403Jwxgrsp21741096 2.0.1.341142.3.579.2.827989-22-0105Wffukqp75389170 2.0.1.950490.3.579.2.022022-16-9224Dkeuecx73312215 2.0.1.554033.3.579.2.976004-80-1216Axifjkt79169687 2.16.840.1.030102.3.579.2.037575-30-4714Orezomd16909550 2.16.840.1.653298.3.579.2.038064-39-2236Jocgdfx57718563 2.16.840.1.821059.3.579.2.895572-57-1133Pdoheyk6237843 2.16.840.1.353998.3.579.2.439854-61-1281Hjiijxw9758752 2.16.840.1.274939.3.579.2.481833-26-8073Zvdgydd5577662 2.16.840.1.982409.3.579.2.072274-66-6346Wjrvavj7956277 2.16.840.1.344085.3.579.2.804642-58-3539NxklcbbGZS442Z29849 1.2.840.612015.1.13.239.2.7.3.367079.247Kkdmqtd97198478 2.16.840.1.760315.3.579.2.531UnknownAnthem /[id number] 44zq52y7-f5d0-761o-hu62-44p8asbix793 Social History DateTypeDetailFacilityStart: 02-25-2021 End: 37-92-3384Ebzxzjy smoking status NHISNever smokerDali Wireless Phone: start: 02-25-2021 End: 41-74-2605Wbmsrum use and exposureNever usedAtlas5DStart: 1975 Sex Assigned At BirthNot on [facility] hospitalD[facility] Phone: start: 11-20-2023 End: 65-95-2360Btnvbmrm to SARS-CoV-2 (event)Not [facility] hospitalD[facility] Wireless Phone: Start: 12-11-2023 End: 36-39-5868Aue Assigned At [facility] HospitalStart: 11-30-2023 End: 40-48-7977Tfaumjivv beverage intakeEx-drinker (finding)[facility] Work Phone: Start: 6505Poo assigned at [facility] CenterStart: 71-35-6655Upgkmf identityIdentifies as male gender (finding)[facility] Work Phone: Start: 52-18-9241Jfdtlx orientationHeterosexual (finding)[facility] Work Phone: Start: 12-11-2023 End: 93-53-1471Jwwwlum of Social functionUnOhioHealth O'Bleness HospitalHa the BIOeCON gas, oil, or water [employer] threatened to shut off services in your home in past 12MoNoUnOhioHealth O'Bleness HospitalHow often to you have a drink containing alcohol?NeverRiverview Health InstituteHow many standard drinks containing alcohol do you have on a typical day?Patient does not drink [facility] Work Phone: Do you feel stress - tense, restless, nervous, or anxious, or unable to sleep at night because yourmind is troubled all the time - these days [OSQ]Not at allRiverview Health Institute Work Phone: (I/We) worried whether (my/our) food would run out before (I/we) got money to buy more.Never trueR[facility]view Health Institute Work Phone: Start: 09-26-2024 End: 58-02-5503WaqJrgl (finding)[facility] HospitalTobanorman regional [facility] smoking status NHISTobacco smoking consumption unknownNOMS Healthcare Medical Equipment Procedure CodeEquipment CodeEquipment Original TextEquipment IdentifierDates Gabriel Manzano 5.5cc - [id number] - [id number]: 12-08-2023 Power Mix, Mini Ingite, [facility] - [id number] - [id number], [id number] FDAStart: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 HealthcareHistory general Narrative - ReportedNorth [employer] Other Reason for referral (narrative)No reason for referral information availableMartin Memorial Hospital Work Phone: Reason for visit Narrative* Imaging (Routine) - AuthorizedSpecialtyDiagnoses / ProceduresReferred By ContactReferred To ContactRadiology Diagnoses Pelvic pain Procedures XR pelvis 3+ [place] [address] [facility] [place] [address] Phone: tel: fax: Referral IDStatusReasonStart DateExpiration DateVisits RequestedVisits [id number] Perform Procedure / [facility] Work Phone: Reason for visit Narrative* Imaging (Routine) - AuthorizedSpecialtyDiagnoses / ProceduresReferred By ContactReferred To ContactRadiology Diagnoses Pelvic pain Procedures [place]R pelvis 3+ [place] [address] [facility] [place] [address] Phone: tel: fax: Referral IDStatusReasonStart DateExpiration DateVisits RequestedVisits [id number] Perform Procedure [facility] Work Phone: Summary Purpose Family History No Family History Records Found Relationship Condition Age at Onset Recorded Date/T david father Malignant neoplasm of prostate Unknown fatherHypertensionUnknownMalignant neoplasmUnknownHeart diseaseUnknownMalignant neoplasm of prostateUnknown Advance Directives No Advanced Directives Records Found Date ActivatedDate InactivatedComments12/08/2023 8:25 AMQuestionAnswerCommentsPlan of Care:* Code Status Discussion Completed Decision Maker:* Patient Advance Directive Response Recorded Date/ Time Advance Directives No January 29 6:53pm Advance Directive Response Recorded Date/ Time Advance Directives No January 29 7:53pm Date ActivatedDate InactivatedComments12/08/2023 8:25 AMQuestionAnswerCommentsPlan of Care:* Code Status Discussion Completed Decision Maker:* Patient Reason for Referral StatusReasonSpecialtyDiagnoses / ProceduresReferred By ContactReferred To ContactClosedRadiology Diagnoses Lumbar radiculopathy Lumbar spondylosis Bilateral low back pain with sciatica, sciatica laterality unspecified, unspecified chronicity Procedures CT LUMBAR SPINE W CONTRAST Hamilton Elder, APPLICATIONS SUPPORT SPECIALIST - REGULATORY AGENCY DIRECTOR [address] [place] [address] StatusReasonSpecialtyDiagnoses / ProceduresReferred By ContactReferred To ContactClosedRadiology Diagnoses Lumbar radiculopathy Lumbar spondylosis Bilateral low back pain with sciatica, sciatica laterality unspecified, unspecified chronicity Procedures IR LUMBAR PUNCTURE FOR MYELOGRAM CT Hamilton Elder, APPLICATIONS SUPPORT SPECIALIST - REGULATORY AGENCY DIRECTOR [address] [place] [address] SpecialtyDiagnoses / ProceduresReferred By ContactReferred To ContactRadiology Diagnoses Pelvic pain Procedures XR pelvis 3+ [place] [address] [facility] Department [place] [address] Referral IDStatusReasonStart DateExpiration DateVisits RequestedVisits [id number] Perform Procedure /[id number] / ProceduresReferred By ContactReferred To Contact Diagnoses Pelvic pain [place] [address] [address] Department of Orthopedics/[place] [address] Referral IDStatusReasonStart DateExpiration DateVisits RequestedVisits [id number] IDStatusReasonStart DateExpiration DateVisits RequestedVisits [id number] Perform Procedure /[id number] IDStatusReasonStclint DateExpiration DateVisits RequestedVisits [id number] Perform Procedure /[id number] IDStatusReasonStart DateExpiration DateVisits RequestedVisits [id number] Perform Procedure / Chief Complaint and Reason for Visit Chief [...] September 10:41am Recurrent sinus infections October 19, 8:19am Family history of prostate cancer in [...] section and content) DATE CREATED AUTHOR 02/20/2021 [facility] DATE CREATED AUTHOR AUTHOR'S ORGANIZ ATION 02/28/2021 [facility] DATE CREATED AUTHOR AUTHOR'S ORGANIZ ATION 12/17/2022 [facility] DATE CREATED AUTHOR AUTHOR'S ORGANIZ ATION 12/16/2023 [facility] DATE CREATED AUTHOR AUTHOR'S ORGANIZ ATION 12/17/2023 [facility] DATE CREATED AUTHOR AUTHOR'S ORGANIZ ATION 02/03/2024 [facility] DATE CREATED AUTHOR AUTHOR'S ORGANIZ ATION 07/30/2024 [facility] DATE CREATED AUTHOR AUTHOR'S ORGANIZ ATION 08/05/2024 [facility] DATE CREATED AUTHOR AUTHOR'S ORGANIZ ATION 09/10/2024 [facility] DATE CREATED AUTHOR AUTHOR'S ORGANIZ ATION 11/26/2024 [facility] DATE CREATED AUTHOR AUTHOR'S ORGANIZ ATION 03/13/2025 [facility] EPIC Reason for Visit (unrecogniz ed section and content) StatusReasonSpecialtyDiagnoses / ProceduresReferred By ContactReferred To ContactClosedRadiology Diagnoses Lumbar radiculopathy Lumbar spondylosis Bilateral low back pain with sciatica, sciatica laterality unspecified, unspecified chronicity Procedures CT LUMBAR SPINE W CONTRAST Hamilton Elder, APPLICATIONS SUPPORT SPECIALIST - REGULATORY AGENCY DIRECTOR [address] [place] [address] 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 [facility] SepSpecialtyDiagnoses / ProceduresReferred By ContactReferred To ContactRadiology Diagnoses Pelvic pain Procedures XR pelvis 3+ [place] [address] [place] [address] Referral IDStatusReasonStclint DateExpiration DateVisits RequestedVisits [id number] Perform Procedure /[id number] / ProceduresReferred By ContactReferred To Contact Diagnoses Pelvic pain Pelvic pain [R10.2] Procedures AR OPTX ANT PELVIC BONE FX&/DISLC INT FIXJ IF PFR Open Reduction [place] [address] [facility] Department [place] [address] Larry Landry [address] [place] [address] Referral IDStatusReasonStart DateExpiration DateVisits RequestedVisits [id number] PELVIC RING ORIF DOS 12/08/23Post-opPOV PELVIC RING ORIF DOS 12/08/23Referral IDStatusReasonStart DateExpiration Date Visits RequestedVisits [id number] Perform Procedure /[id number]-joUYV PELVIC RING ORIF DOS 12/08/23Reason CommentsFollow-upFUV PELVIC RING ORIF DOS 12/08/23Referral IDStatusReasonStart DateExpiration DateVisits RequestedVisits [id number] Perform Procedure /[id number]ag Patient : ongoing sinus issues / congestionReasonCommentsSinusitisCT resultsReasonCommentsSinusitis3 week navjot ReasonCommentsSinusitis1 month navjot Scheduled Active and Recently Administ ered Medications (unrecognized section and content) Medication Order// aspirin EC tablet 81 mg 81 mg, oral, 2 times daily, First dose on 12/10/23 at 2100, Do not crush, chew, or split. * 1047 (Given - Provider: Padmini Tony RN) * 2014 (Given - Provider: Rubina Collins LPN) * 0843 (Given - Provider: Madison Spencer RN) * 2004 (Given - Provider: Anushka Tinsley RN) * 08 (Given - Provider: Duyen Rivas RN) * 2099 (Due) cholecalciferol (Vitamin D-3) tablet 5,000 Units 5,000 Units, oral, Daily, First dose on Tata 12/08/23 at 2100 * 1047 (Given - Provider: Padmini Tony RN) * 0843 (Given - Provider: Madison Spencer RN) * 0807 (Given - Provider: Duyen Rivas, SHANT) docusate sodium (Colace) capsule 100 mg 100 mg, oral, 2 times daily, First dose on Tata 12/08/23 at 2100 * 1047 (Given - Provider: Padmini Tony RN) * 2014 (Given - Provider: Rubina Collins LPN) * 0843 (Given - Provider: Madison Spencer RN) * 2004 (Given - Provider: Anushka Tinsley RN) * 0807 (Given - Provider: Duyen Rivas, SHANT) * 2100 (Due) esomeprazole (NexIUM) suspension 40 mg(Linked Group [...] of water, shake and flush NG tube. * 0800 (See Alternative - Provider: Padmini Tony RN) * 0603 (See Alternative - Provider: Anushka Tinsley RN) * 0611 (See Alternative - Provider: Anushka Tinsley RN) fluticasone (Flonase) nasal spray 2 spray 2 spray, Each Nostril, Daily, First dose on Tue12/14/23 at 2030, Shake gently. Before first use, prime pump (press 6 times until fine spray appears). After use, clean tip and replace cap. * 0900 (Not Given - Provider: Padmini Tony RN - Reason: Patient/family refused) * 0843 (Given - Provider: Madison Spencer RN) * 0806 (Given - Provider: Duyen Rivas RN) gabapentin (Neurontin) capsule 300 mg 300 mg, oral, Nightly, First dose on Tata 12/08/23 at 2100, Capsules may be opened and sprinkled on food (eg, applesauce, orange juice, pudding * 2014 (Given - Provider: Rubina Collins LPN) * 2004 (Given - Provider: Anushka Tinsley RN) * 2100 (Due) lidocaine (Xylocaine) 2 % jelly 1 Application 1 Application, Topical, Once, On Tue12/11/23 at 0915, For 1 dose, Apply to NG tube if helpful for placement loratadine (Claritin) tablet 10 mg 10 mg, oral, 2 times daily, First dose (after last modification) on Tue12/14/23 at 2115 * 1047 (Given - Provider: Padmini Tony RN) * 2014 (Given - Provider: Rubina Collins LPN) * 0843 (Given - Provider: Madison Spencer RN) * 2004 (Given - Provider: Anushka Tinsley RN) * 0807 (Given - Provider: Duyen Rivas, SHANT) * 2100 (Due) metoprolol succinate XL (Toprol-XL) 24 hr tablet 25 mg 25 mg, oral, Daily, First dose on Tue12/09/23 at 0900, Do not crush or chew. * 1047 (Given - Provider: Padmini Tony RN) * 0843 (Given - Provider: Madison Spencer RN) * 0809 (Given - Provider: Duyen Rivas, SHANT) pantoprazole (ProtoNix) EC tablet 40 mg(Linked Group 1) 40 mg, oral, Daily before breakfast, First dose on 12/11/23 at 0700, Use pantoprazole tablet if patient can take meds orally. Do not crush, chew, or split. * 0800 (Canceled Entry - Provider: Padmini Tony RN) * 0603 (Given - Provider: Anushka Tinsley RN) * 0611 (Given - Provider: Anushka Tinsley RN) pantoprazole (ProtoNix) injection 40 mg(Linked Group 1) 40 mg, intravenous, Daily before breakfast, First dose on 12/11/23 at 0700, Use pantoprazole injection if patient unable to take meds orally or per feeding tube. Reconstitute with 10 mL sodium chloride 0.9% for injection. Push over 2 minutes. * 0800 (See Alternative - Provider: Padmini Tony RN) * 0603 (See Alternative - Provider: Anushka Tinsley RN) * 0611 (See Alternative - Provider: Anushka Tinsley RN) polyethylene glycol (Glycolax, Miralax) packet 17 g 17 g, oral, Daily, First dose on Tue12/08/23 at 1830, Bowel Regimen - for prevention of constipation. * 1047 (Given - Provider: Padmini Tony RN) * 0843 (Given - Provider: Madison Spencer RN) * 0807 (Given - Provider: Duyen Rivas, SHANT) sennosides (Senokot) tablet 8.6 mg 8.6 mg (1 tablet), oral, Nightly, First dose on Tata 12/08/23 at 2099 * 2014 (Given - Provider: Rubina Collins LPN) * 2004 (Given - Provider: Anushka Tinsley RN) * 2099 (Due) simvastatin (Zocor) tablet 20 mg 20 mg, oral, Nightly, First dose on Tata 12/08/23 at 2099 * 2014 (Given - Provider: Rubina Collins LPN) * 2004 (Given - Provider: Anushka Tinsley RN) * 2099 (Due) Medication Order// acetaminophen (Tylenol) tablet 650 mg 650 mg, oral, Every 4 hours PRN, pain mild (1-3), first line, Starting on Tue12/08/23 at 1809, If ordered PRN for pain, nurse is permitted to administer this medication for higher pain scores based onpatient preference? Yes albuterol 90 mcg/actuation inhaler 2 [...] PRN, sleep, Starting on Tue12/09/23 at 2318 * 2151 (Given - Provider: Rubina Collins LPN) * 2100 (Given - Provider: Anushka Tinsley, RN) ondansetron (Zofran) injection 4 mg(Linked Group 2) 4 mg, intravenous, Every 8 hours PRN, nausea/vomiting, second line, Starting on Tata 12/08/23 at 2007,Give IV if patient is unable to take [...] first line, Starting on 12/11/23 at 2053, 1stLine. Give AR if patient is unable to take orally. If inadequate response within 60 minutes, proceed to next-line agent or contact provider if no further options ordered. promethazine (Phenergan) tablet 25 mg(Linked Group 3) 25 mg, oral, Every 6 hours PRN, nausea/vomiting, first line, Starting on Tue12/11/23 at 2053, 1st Line. If inadequate response within 60 minutes, proceed to next-line agent or contact provider if no further options ordered. simethicone (Mylicon) chewable tablet 40 mg 40 mg, oral, 4 times daily PRN, flatulence, Starting on Tue12/09/23 at 1319 sodium chloride (Gem) 0.65 % nasal spray 1 spray 1 spray, Each Nostril, 4 times daily PRN, congestion, Starting on Tue12/13/23 at 1350 Order Group 1: pantoprazole (ProtoNix) EC tablet [...] nausea/vomiting, second line, Starting on Tue12/08/23 at 2006,Give IV if patient is unable to take [...] first line, Starting on 12/11/23 at 2052, 1stLine. Give AR if patient is unable to take orally. [...] Active Start: August 29, 2024 Wilver Garcia DOAttending ProviderActiveStart: August 29, 2024 Team Status: Active Member Role Status Dates Chantal Mart MD Primary Care Provider Active Start: August 31, 2024 Mimi Yao CMAAttending ProviderActiveStart: August 31, 2024 Team MemberRelationshipSpecialtyStart DateEnd Date Chantal Mart [place] [address] PCP - GeneralFainly Medicine12/05/23Team MemberRelationshipSpecialtyStart DateEnd Date Chantal Mart MD [address] [place] [address] PCP - [facility]12/05/23Team MemberRelationshipSpecialtyStart DateEnd Date Chantal Mart MD [address] [place] [address] PCP - [facility]12/05/23Team MemberRelationshipSpecialtyStart DateEnd Date Chantal Mart MD [address] [place] [address] [facility]12/05/23Team MemberRelationshipSpecialtyStart DateEnd Date Chantal Mart MD [address] [place] [address] [facility]12/05/23Team MemberRelationshipSpecialtyStart DateEnd Date Chantal Mart MD [address] [place] [address] [facility]12/05/23 Team Status: Inactive Member Role Status Dates [...] Active Start: July 10, 2024 Evelyn Macdonald MDAttderek ProviderActiveStart: July 10, 2024 Team Status: Inactive Member Role Status Dates Chantal Mart MD Primary Care Provide r, Attending Provider Active Start: July 11, 2024 End: July 11, 2024Team MemberRelationshipSpecialtyStart DateEnd Date Chantal Mart MD [address] [place] [facility] [place] [phone] PCP - GeneralFamily Medicine11/13/24 Rolo Phoenix DO [address] [place] [address] Otolaryngology11/13/24Team MemberRelationshipSpecialtyStart DateEnd Date Chantal Mart MD [address] [place] [facility] [place] [phone] PCP - GeneralFamily Medicine11/13/24 Rolo Phoenix, [address] [place] [address] Otolaryngology11/13/24Team MemberRelationshipSpecialtyStart DateEnd Date Chantal Mart MD [address] [place] [address] PCP - GeneralFamily Medicine12/05/23Team MemberRelationshipSpecialtyStart DateEnd Date Chantal Mart MD [address] [place] [address] PCP - GeneralFamily Medicine12/05/23Team MemberRelationshipSpecialtyStart DateEnd Date Chantal Mart MD [address] [place] [facility] [place] [phone] PCP - GeneralFamily Medicine11/13/24 Rolo Phoenix, [address] [place] [address] Otolaryngology11/13/24Team MemberRelationshipSpecialtyStart DateEnd Date Chantal Mart MD [address] [place] [address] PCP - GeneralFamily Medicine11/13/24 Rolo Phoenix, [address] [place] [address] Otolaryngology11/13/24 Team Status: Inactive Member Role Status Dates Chantal Mart MD Primary Care Provide r, Attending Provider Active Start: December 27, 2024 End: December 27, 2024Team MemberRelationshipSpecialtyStart DateEnd Date Chantal Mart MD [address] [place] [address] PCP - GeneralFamily Medicine11/13/24 Rolo Phoenix, [address] [place] [address] Otolaryngology11/13/24Team MemberRelationshipSpecialtyStart DateEnd Date Chantal Mart MD [address] [place] [phone] PCP - GeneralFamily Medicine11/13/24 Rolo Phoenix, [address] [place] [address] Otolaryngology11/13/24Team MemberRelationshipSpecialtyStart DateEnd Date Chantal Mart MD [address] [place] [facility] [address] PCP - GeneralFamily Medicine11/13/24 Rolo Phoenix DO [address] [place] [address] Otolaryngology11/13/24Team MemberRelationshipSpecialtyStart DateEnd Date Chantal Mart MD [address] [place] [facility] [address] PCP - GeneralFamily Medicine11/13/24 Rolo Phoenix DO [address] [place] [address] Otolaryngology11/13/24 Team Status: Inactive Member Role Status Dates Chantal Mart MD Primary Care Provider Active Start: November 30, 2024 End: November 30, 2024Derek Caceres ProviderActiveStart: November 30, 2024 End: November 30, 2024 Team Status: Inactive Member Role Status Dates Chantal Mart MD Primary Care Provider Active Start: December 27, 2024 End: December 27, 2024Derek Caceres ProviderActiveStart: December 27, 2024 End: December 27, 2024 Team Status: Inactive Member Role Status Dates Chantal Mart MD Primary Care Provider Active Start: February 21, 2025 End: February 21, 2025Derek Caceres ProviderActiveStart: February 21, 2025 End: February 21, 2025Team MemberRelationshipSpecialtyStart DateEnd Date Chantal Mart MD [address] [place] [facility] [place] [phone] PCP - GeneralFamily Medicine11/13/24 Rolo Phoenix DO [address] [place] [address] Otolaryngology11/13/24 Goals (unrecognized section and content) Goals may [...] BE BASED ON THE PRIMARY CLINICAL RECORDS. [employer] [facility]. provides no warranty or guarantee of the accuracy or completeness of information in this document.
--- NOTE | 2025-06-10 15:19 | PM.CN ---
Consult Note: HPI Data of Consult Patient: known to practice within the last 3 years Consult date: 06/10/25 Requesting Physician: Portia Clark MD Primary Care Provider: Jaymie Haas MD Consult Narrative Reason for consult: low back, bilateral leg, right shoulder pain Narrative: 49yom who presents for assessment. notes persistence of right shoulder pain. also notes worsening low back pain with radiation into bilateral lower extremities. imaging of lumbar spine reviewed, significant for marked stenosis at l5-s1. has continued in a series of provider directed home exericses >6 weeks, without lasting benefit. uses percocet as needed. denies adverse med side effects. cc:: CC: Portia Clark MD Review of Systems ROS Status of ROS 10 or more systems reviewed and unremarkable except as noted in history and below [facility] Medical History Lumbar back pain ?M54.50 - Low back pain, unspecified (ICD-10) High cholesterol ?E78.00 - Pure hypercholesterolemia, unspecified (ICD-10) Glenoid cavity and neck of scapula fracture ?S42.143A - Displaced fracture of glenoid cavity of scapula, unspecified shoulder, initial encounter for closed fracture (ICD-10) ?S42.153A - Displaced fracture of neck of scapula, unspecified shoulder, initial encounter for closed fracture (ICD-10) Subdural hematoma ?S06.5XAA - Traumatic subdural hemorrhage with loss of consciousness status unknown, initial encounter (ICD-10) Osteoarthritis ?M19.90 - Unspecified osteoarthritis, unspecified site (ICD-10) Asthma ?J45.909 - Unspecified asthma, uncomplicated (ICD-10) HTN (hypertension) ?I10 - Essential (primary) hypertension (ICD-10) Surgical History S/P ORIF (open reduction internal fixation) fracture ?Z98.890 - Other specified postprocedural states (ICD-10) ?Z87.81 - Personal history of (healed) traumatic fracture (ICD-10) History of facial surgery ?Z98.890 - Other specified postprocedural states (ICD-10) Hx of colonoscopy ?Z98.890 - Other specified postprocedural states (ICD-10) S/P correction of deviated nasal septum ?Z98.890 - Other specified postprocedural states (ICD-10) Social History Little interest or pleasure in doing things: not at all Feeling down, depressed, or hopeless: not at all Meds Home Medications and Allergies Home Medications ?Medication ?Instructions ?Recorded ?Confirmed ?Type albuterol sulfate 90 mcg/actuation 2 inh inhalation Q3H PRN shortness 03/22/23 07/16/24 History aerosol inhaler of breath or wheezing lisinopril 20 mg tablet 10 mg PO DAILY 03/22/23 02/14/25 History simvastatin 20 mg tablet 20 mg PO DAILY 03/22/23 08/29/24 History sumatriptan succinate 50 mg tablet See Rx Instructions PO .COMPLEX 03/22/23 07/16/24 History diclofenac sodium 50 mg 50 mg PO BID PRN pain #60 tabs 02/29/24 08/29/24 Rx tablet,delayed release baclofen 10 mg tablet 10 mg PO TID PRN muscle spasm #90 04/26/24 08/29/24 Rx tabs naloxone 4 mg/actuation nasal 4 mg intranasal Q3M PRN opioid 07/04/24 07/16/24 Rx spray (Narcan) overdose #2 ea Glucosamine chondroitin 1 tab PO BID 08/29/24 08/29/24 History multivitamin 1 tab PO DAILY 08/29/24 08/29/24 History gabapentin 600 mg tablet 600 mg PO BID #60 tabs 04/04/25 Rx oxycodone-acetaminophen 5 mg-325 1 tab PO TID PRN pain #90 tabs 04/29/25 Rx mg tablet (Percocet) gabapentin 600 mg tablet 600 mg PO BID #60 tabs 05/09/25 Rx oxycodone-acetaminophen 5 mg-325 1 tab PO BID PRN pain #60 tabs 05/30/25 Rx mg tablet (Percocet) Allergies Allergy/AdvReac Type Severity Reaction Status Date / Time tramadol Allergy Nausea Verified 08/29/24 21:22 nalbuphine (From Nubain) AdvReac Unknown Nausea Verified 08/29/24 21:22 Exam Narrative Exam Narrative: Psych-alert and oriented x 3. Attentive and appropriate, constitutionally normal, displays normal mood and affect per situation. There are no obvious deficits in memory, reasoning, or intellect.? Skin-no obvious rashes, bruising, erythema noted to the patient's area of pain.? Extremities- extremities are warm with minimal edema and palpable pulses. Shoulder - tender to palpation in right shoulder. pain elicited with abduction, external rotation of right shoulder. Lumbar-tenderness to palpation noted in the lumbar spine and paraspinal musculature. Pain is elicited with flexion, extension, and lateral rotation of the lumbar spine. Range of motion is diminished with these motions. Facet loading maneuvers are positive.? Strength-noted to be unremarkable with the exception of decreased strength rated at 4 out of 5 in bilateral quadriceps femoris, anterior tibialis. Sensory-no notable sensory deficits in the bilateral lower extremities to touch or pinprick in all dermatomal distributions with the exception to decreased sensation to the bilateral L4, 5 dermatomal distribution Coordination remains intact.? Gait remains non-antalgic. Assessment and Plan Assessment and Plan (1) Osteoarthritis of right shoulder: Qualifiers: Osteoarthritis type: primary Qualified Code(s): M19.011 - Primary osteoarthritis, right shoulder (2) Lumbar stenosis with neurogenic claudication: Plan 49yom who presents for assessment. failed conservative measures, as noted. imaging reviewed, as noted. given symptoms of low back and leg pain, coupled with imaging, prudent to attempt bilateral l5-s1 transforaminal epidural steroid injection under fluoroscopic guidance. he is in agreement. in terms of right shoulder pain, will proceed with right shoulder injection. meds reviewed, no changes. follow up after procedure. procedure: right shoulder injection medications: bupivacaine 0.25% 4cc, depomedrol 40mg I explained the details of the procedure to the patient including the risks, benefits, and alternatives.? We had an informed discussion.? The patient verbalized understanding and signed the consent form.? All questions were answered appropriately.? A time-out was performed.? After obtaining a comfortable seated position, the skin overlying the right shoulder was prepped with alcohol 3 times.? The sulcus between the head of the humerus and the acromion was identified.? The needle was inserted in a sterile manner 2 cm inferior and medial to the posterolateral corner of the acromion and was directed anteriorly toward the coracoid process. The contents of the syringe were gently injected without any resistance into the joint space after negative aspiration for blood or other bodily fluids.? The needle was removed and pressure was applied at the injection site to decrease the incidence of ecchymosis and hematoma formation.? A sterile bandage was applied.
== END 2025-06-10 14:56 | disposition home or self-care (01) ==
LOC: PM 14:56
PROVIDERS: PCP Family Medicine; Visit Provider Anesthesiology
DX: M19.011 Primary osteoarthritis, right shoulder (principal); M48.062 Spinal stenosis, lumbar region with neurogenic claudication
CPT/HCPCS: 20610; J0665; J1010

== ENCOUNTER 2025-06-24 07:37 | Day surgery (SDC) | payer BC, SELFPAY ==
--- OUTSIDE RECORDS SUMMARY | 2025-06-24 07:43 | XMS_ITS | Clinical Summary ---
Author Organization [facility] Address [address], [address] [place] [address] Care Team Providers Care Production Tech Name Role Phone Jaymie Haas MD Primary Care Provider [phone] Allergies Active AllergyReactionsCriticalityNoted TrerGeomihfeFdrbrfhmtt30/02/2017Tramadol Nausea And OparsymiMuf80/15/2021 Medications MedicationSigDispense QuantityRefillsLast FilledStart DateEnd DateStatus lisinopril (PRINIVIL;ZESTRIL) 10 MG tablet Take 10 mg by mouth dailyActive simvastatin (ZOCOR) 20 MG tablet Take 20 mg by mouth nightlyActive meloxicam (MOBIC) 15 MG tablet TAKE 1 TABLET BY MOUTH EVERY DAY11/16/2020ctive tiZANidine (ZANAFLEX) 4 MG tablet TAKE 1 TABLET BY MOUTH 3 TIMES A DAY OXAYML0711/20/2020ctive gabapentin (NEURONTIN) 100 MG capsule TAKE 2 PILLS THREE TIMES PER DAY 180 capsule 02/27/2021ctive Active Problems ProblemNoted DateDiagnosed DateLumbar mooaeynuykroi77/15/2021umbar spondylosis 02/19/2021ciatica, left side11/20/2020ontact with and (suspected) exposure to covid-19008/26/2020 Family History Medical HistoryRelationNameCommentsCancerFatherDiabetesFatherArthritisMother DiabetesMotherRelationNameStatusCommentsFatherMother Social History Tobacco UseTypesPacks/DayYears UsedDateSmoking Tobacco: NeverSmokeless Tobacco: NeverSex and Gender InformationValueDate RecordedSex Assigned at BirthMale 03/09/2021 8:38 PM EDTLegal XdcCqrr2509/17/2012 10:57 AM ESTGender IdentityMale 03/09/2021 8:38 PM EDTSexual CsnkrymfcqlCfdwxbot43/02/2021 8:38 PM EDT Last Filed Vital Signs Vital SignReadingTime TakenCommentsBlood Xogvsbgi709/90002/25/2021 2:30 PM EDT Filqr563902/25/2021 2:30 PM EBFSmmydthgfds88.1 ??C (96.9 ??F)02/27/2021 9:03 AM EDTRespiratory Ikan082302/25/2021 2:30 PM EDTOxygen Ypcaodrpsp96%02/25/2021 2:30 PM EDTInhaled Oxygen Concentration--Builky384.9 kg (260 lb)02/27/2021 9:03 AM KGIPcscyy337.3 cm (5' 11 )02/27/2021 9:03 AM EDTBody Mass Index36.26002/27/2021 9:03 AM EDT Plan of Treatment Not on file Insurance Care Teams Team MemberRelationshipSpecialtyStart DateEnd Date Jaymie Haas MD [address] [place] [address] PCP - GeneralFamily Medicine01/30/21
--- OUTSIDE RECORDS SUMMARY | 2025-06-24 07:43 | XMS_ITS | Clinical Summary ---
Author Organization [facility] Address [address] [place] [address] Care Team Providers Care It Architecture Consultant Name Role Phone Unavailable Primary Care Provider Unavailabl e Social History Tobacco UseTypesPacks/DayYears UsedDateSmoking Tobacco: Never AssessedSex and Gender InformationValueDate RecordedSex Assigned at BirthNot on fileLegal Sex Male07/09/2012 8:26 AM ESTGender IdentityNot on fileSexual OrientationNot on file Plan of Treatment Health MaintenanceDue DateLast DoneCommentsAnxiety Qpflqniry89/05/1994Depression Zyttpwhel21/05/1994HIV Hqqxielve03/05/1994Hepatitis C Lkfdluivv46/05/1994 DTaP,Tdap,Td Vaccine (1 - Tdap)1994Hepatitis B Vaccine (1 of 3 - 19+ 3- dose series)1994Lipid Yqaoifqbb91/05/2011CT Nhxemjovrvni21/05/2021 Cologuard (FIT-DNA)08/12/20208841Anifejnvjzr96/05/2021olorectal Cancer Screening 1Diabetes Mipewonmc69/05/2021Fecal Occult Blood2020igmoidoscopy 1Covid-19 Vaccine ( season)2025Influenza Vaccine (#1) 2025 Insurance * Guarantor: Prosper Pineda EAccount TypeRelation to PatientDate of BirthPhone Billing JqpfyogMaugqCyyx72/05/1976 [address] [place] [address]
--- OUTSIDE RECORDS SUMMARY | 2025-06-24 07:43 | XMS_ITS | Clinical Summary ---
Author Organization [facility] Address [address] [place] [address] Phone Care Team Providers Care Mortgage Loan Interviewer Name Role Phone Jaymie Haas MD Primary Care Provider [phone] Allergies Active AllergyReactionsCriticalityNoted ZbahVvxxgjdlLyyhsdubglRpelk63/02/2017 TramadolNausea And Vomiting,TfnivqiSlq14/10/2016 Medications MedicationSigDispense QuantityRefillsLast FilledStart DateEnd DateStatus magnesium [...] 12/14/2023ctive Active Problems ProblemNoted DateDiagnosed DateHTN (hypertension)12/08/2023Hyperlipidemia 12/08/20236706Hdqorl29/02/0504Yepuvra23/02/2024ilateral hip pain11/30/2023Lumbar pain11/30/2023Scrotum pain11/30/2023elvic pain11/30/2023Lumbar radiculopathy 02/19/2021umbar ycrctewydzo48/15/2021ciatica, left side11/20/2020ontact with and (suspected) exposure to [...] (1 standard drink = 0.6 oz pure alcohol)[facility] UtilitiesAnswerDate RecordedIn the past 12 months has [...] hard at all12/08/2023HQ-2AnswerDate RecordedPatient Health Questionnaire-2 Score0 02/29/2024[facility] - Occupational Stress QuestionnaireAnswerDate [...] steady place to sleep or slept in cogswellelter (including now)?No12/11/2023Sex and Gender InformationValueDate RecordedSex Assigned at DmvimInov10/24/2024 9:24 PM EDT Legal DfmVisw8811/04/2023 11:58 AM EDTGender ThvowlgpTyur71/24/2024 9:24 PM EDT Sexual BqfyikkexwxSfmjqosl09/24/2024 9:24 PM EDT Last Filed Vital Signs Vital SignReadingTime TakenCommentsBlood Zvyztkxm667/8005 8:13 AM EDT Jhfzq391312/21/2023 8:13 AM MUZOpoqhevjdbm41.4 ??C (97.5 ??F)12/21/2023 8:13 AM EDTRespiratory Kpml347312/21/2023 8:13 AM EDTOxygen Bspxcdocfc61%12/21/2023 8:13 AM EDTInhaled Oxygen Concentration--Eikgwq158 kg (277 lb 12.5 oz)12/11/2023 8:33 AM FQRIeuqkn129.3 cm (5' 10.98 )12/11/2023 8:33 AM EDTBody Mass Index38.76 12/11/2023 8:33 AM EDT Plan of Treatment Health MaintenanceDue DateLast DoneCommentsCT Dxajpgmtrlvy65/05/1976Colonoscopy 1975Colorectal Cancer Dkngwscul09/05/1976FIT-DNA (Cologuard)1975FIT 1975HIV Mzlixwhmn47/05/1976Lipid Panel1975 6695Bpnwkvyyahgob40/05/1976 Yearly Adult Atnxxsri20/05/1976MMR Vaccines (1 of 1 - Standard series)1976 Hepatitis C Gmhvdtkyg33/05/1994Hepatitis B Vaccines (1 of 3 - 19+ 3-dose series) 1994Pneumococcal Vaccine: Pediatrics and At-Risk Adult Patients (1 of 2 - PCV)1994Influenza Vaccine (#1)COVID-19 Vaccine (4 - season)/, 10/17/2021, 09/19/2021Zoster Vaccines (1 of 2)2025Diabetes Dpjysxjej17/03/2024, 12/13/2023, 12/12/2023, Additional history existsDTaP/Tdap/Td Vaccines (2 [...] / Serial / LotAllograft, Gabriel 5.5cc - [id number] - [id number] Implanted:Qty: 1 on 12/08/2023 [facility]: AcetabulumROYAL KRBEQHLOS41/07/2024MG-5 / [id number] / Power Mix, Mini Ingite, 4cc - [id number] - [id number] Implanted:Qty: 1 on 12/08/2023 [facility]plantN/A: AcetabulumWRIGHT MEDICAL TECHNOLOGY [id number] / [id number] / [id number] Elite Implant Kit 89a96ve 2 Legs Implanted:Qty: 1 on 12/08/2023 [facility] ImplantN/A: JkkkhoJLYADEP98EL-[id number] / NA / [id number]:Per oracle jdr 5/3Screw, Cortical, Self-Tapping, 3.5 X 32 Mm, Stainless Steel - [id number] Implanted:Qty: 1 on 12/08/20[facility]: IkngzhqqjiKAUZWYD514.832 / / Screw, 7.3mm Geoff, Full Thread, 165mm, Sterile - [id number] Implanted:Qty: 1 on 12/08/2023 [facility]: IxqtevJQIIFIV55/31/[id number] / / [id number], 7.3mm Geoff, Full Thread, 145mm, Sterile - [id number] Implanted:Qty: 1 on 12/08/2023 [facility]: CmgfuhOABDTPI13/31/[id number] / / [id number], Cortical, Self-Tapping, 3.5 X 36 Mm, Stainless Steel - [id number] Implanted:Qty: 1 on 12/08/2023 [facility]: LtwmxjhfxlOWSBFCU730.836 / / Plate, 3.5 X 6h Pubic Symphysis - Sna - [id number] Implanted:Qty: 1 on 12/08/2023 [facility]: TvspaeSPGWVBA94/02/[id number] / NA / Screw, Cortical, Self-Tapping, 3.5 X 30 Mm, Stainless Steel - Sna - [id number] Implanted:Qty: 1 on 12/08/2023 [facility]: QqyaafZEQKUBW40/02/[id number] / NA / Screw, Cortical, Self-Tapping, 3.5 X 24 Mm, Stainless Steel - Sna - [id number] Implanted:Qty: 1 on 12/08/2023 [facility]: IqkxnqHBGNGIF21/02/2024204.824 / NA / Screw Cortex 3.5 X 70 - Sna - [id number] Implanted:Qty: 2 on 12/08/2023 by [facility]: AaigxaJMTWRJM12/02/2024204.870 / NA / Screw, Cortical, Self-Tapping, 3.5 X 34 Mm, Stainless Steel - Sna - [id number] Implanted:Qty: 1 on 12/08/2023 by [facility]: JacjrcXTOZTDK94/02/2024204.834 / NA / Screw, Cortical, Self-Tapping, 3.5 X 75 Mm, Stainless Steel - Sna - [id number] Implanted:Qty: 2 on 12/08/2023 by [facility]: JdkwbkEQWNFPN09/02/2024204.875 / NA / Washer, F/Large Screws, 13 Mm, Stainless Steel - [id number] Implanted:Qty: 2 on 12/08/2023 by [facility]: UotnisrqwoZDBIWVH978.99 / / Procedures Procedure NamePriorityDate/TimeAssociated DiagnosisCommentsBASIC METABOLIC PANEL Nxxplkt1112/14/2023 6:41 AM EDT from Last 3 Months or Most Recently Relevant to Health Maintenance Results * (ABNORMAL) Basic metabolic panel (12/14/2023 6:41 AM EDT)ComponentValueRef RangeTest MethodAnalysis TimePerformed AtPathologist FkasmkhprBsihlcd532(H)74 - 99 mg/dL LAB CHEMISTRY METHOD 12/14/2023 7:45 [facility] MVPJtejtu480777 - 145 mmol/L LAB CHEMISTRY METHOD 12/14/2023 7:45 AM [facility] LABPotassium3.63.5 - 5.3 mmol/L LAB CHEMISTRY METHOD 12/14/2023 7:45 AM [facility] BOEPyoxuval77646 - 107 mmol/L LAB CHEMISTRY METHOD 12/14/2023 7:45 AM [facility] UYFMretmhtetvx6562 - 32 mmol/L LAB CHEMISTRY METHOD 12/14/2023 7:45 AM [facility] LABAnion Hiw7918 - 20 mmol/L LAB CHEMISTRY METHOD 12/14/2023 7:45 AM [facility] LABUrea Qwnvplxz945 - 23 mg/dL LAB CHEMISTRY METHOD 12/14/2023 7:45 AM [facility] LABCreatinine0.820.50 - 1.30 mg/dL LAB CHEMISTRY METHOD 12/14/2023 7:45 AM [facility] LABeGFR>90>60 mL/min/1.73m*2 LAB CHEMISTRY METHOD 12/14/2023 7:45 AM [facility] LABComment: Calculations of estimated GFR are performed using the 2020 CKD-EPI Study Refit equation without therace variable for the IDMS-Traceable creatinine methods. https://jasn.asnjournals.org/content//ASN.1887708570 Calcium8.3(L)8.6 - 10.6 mg/dL LAB CHEMISTRY METHOD 12/14/2023 7:45 AM [facility] LABSpecimen (Source)Anatomical Location / Laterality Collection Method / VolumeCollection TimeReceived TimeBloodVenous blood specimen / UnknownVenipuncture / Jykvlas8612/14/2023 6:41 AM EDT12/14/2023 7:12 AM EDT Narrative Authorizing ProviderResult TypeResult StatusJodarrius ODOM BLOOD ORDERABLESFinal ResultPerforming OrganizationAddressCity/State/ZIP CodePhone Number [facility] [address] [place], [place] [id number] from Last 3 Months or Most Recently Relevant to Health Maintenance Insurance Advance Directives For more information, please contact: [phone] (Available ) * Full Code (Latest Code Status on File) Date ActivatedDate InactivatedComchoate [facility] hospital12/08/2023 8:25 AMQuestionAnswerCommentsPlan of Care:* Code Status Discussion Completed Decision Maker:* Patient Care Teams Team MemberRelationshipSpecialtyStart DateEnd Date Jaymie Haas MD PCP - GeneralFamily Medicine12/05/23
--- OUTSIDE RECORDS SUMMARY | 2025-06-24 07:44 | XMS_ITS | Patient Health Record ---
Author Organization [facility] Address [address] [place] [address] Care Team Providers Care Low Pressure Firer Name Role Phone Seng Paez [phone] Allergies Allergen (clinical drug ingredient) Drug/Non Drug [...] containging alcohol in the last year? Yes Rdksrw5TwmklxaaazpjsaNzdfgutzDdr often did you have six or more [...] Start Date Coverage End Date [address] [place] [address] [id number] SUSHILA YATES Self - patient is the [...]
--- OUTSIDE RECORDS SUMMARY | 2025-06-24 07:53 | XMS_ITS | CCD ---
Author Organization [facility] Care Team Providers Care Web Designer Developer Name Role Phone Chantal Mart MD Primary Care Provider HAMILTON ELDER Referring Unavailable CHANTAL MART Primary Care Unavailable CHANTAL MART Primary Care Unavailable HAMILTON ELDER Referring Unavailable Chantal Mart Unavailable Austin Barahona Unavailable SCARLETT ., DR ALLYSON Tellez Attending Unavailable PANTOJA ., DR ALLYSON Tellez Admitting Unavailable MA .HANNA Consulting Unavailable BARRON, DR [...] PANTOJA ., DR ALLYSON Tellez Attending Unavailable FRANCESCA .HANNA Consulting Unavailable BARRON, DR CHANTAL Gonzalez Primary Care Unavailable SCARLETT ., DR ALLYSON Tellez Admitting Unavailable PANTOJA [...] Unavailable ALFONZO FERNANDEZ Consulting Unavailable MART, DR CHANTAL Gonzalez Primary [...] Consulting Unavailable Unavailable Primary Care Provider UnavailMayela yS Attending Unavailable Chantal Mart MD Primary Care Provider NAPORA, ADAM K Attending Unavailable CHANTAL MART Primary Care Unavailable NAPORA, ADAM K Attending Unavailable CHANTAL MART Primary Care Unavailable SHANICEORA, ADAM K Attending Unavailable Chantal Mart Attending Unavailable Chantal Mart Primary Care Unavailable Chantal Mart Admitting Unavailable CYNDI, BURT Referring Unavailable CYNDI, BURT Referring Unavailable CYNDI, BURT Referring Unavailable CYNDI, BURT Attending Unavailable Chantal Mart MD Primary Care Provider [phone] Chantal Mart MD Attending Provider Chantal Mart MD Primary Care Provider Rolo Phoenix DO Unavailable NAPORA, ADAM K Referring Unavailable NAPORA, ADAM K Admitting Unavailable NAPORA, ADAM K Attending Unavailable CHANTAL MATR Primary Care Unavailable NAPORA, ADAM K Referring Unavailable MARTCHANTAL Primary Care Unavailable NAPORA, ADAM K Referring Unavailable MART, CHANTAL Gonzalez Primary Care Unavailable NAPORA, ADAM K Referring Unavailable MARTCHANTAL Primary Care Unavailable NAPORA, ADAM K Attending Unavailable CHANTAL MART Primary Care Unavailable NAPORA, ADAM K Referring Unavailable CHANTAL MART Primary Care Unavailable NAPORA, ADAM K Attending Unavailable CHANTAL MART Primary Care Unavailable NAPORA, ADAM K Referring Unavailable CHANTAL MART Primary Care Unavailable Chantal Mart MD Primary Care Provider [phone] Chantal Mart MD Primary Care Provider Chantal Mart MD Attending Provider [phone] ROLO PHOENIX Attending Unavailable CHANTAL MART Referring Unavailable LIZETT, ROLO Tellez Referring Unavailable LIZETT, ROLO Tellez Attending Unavailable BARRON, CHANTAL Referring Unavailable LIZETT, ROLO Tellez Attending Unavailable LIZETT, ROLO Tellez Attending Unavailable TOM ZARATE Attending Unavailable Amber ARENAS, Portia Garcia Attending Unavailable Amber ARENAS, Portia Garcia Attending Unavailable Allergies Allergy ClassificationReported Allergen(s)Allergy TypeDate of OnsetReaction(s) FacilityNalbuphine (2 sources)NalbuphineDrug Ygmelmt00-10-9713Fjkxo HealthOpioid Agonists (2 sources)traMADolDrug Higwaix29-52-2527Qfrwme And VomitingMercy Hospital Health (15 sources)Nalbuphine; Translations: [Nubain]Drug Niyfdjo54-82-9591TS [facility] (20 sources)traMADol; Translations: [TRAMADOL]Drug Qbqkqws13-83-7070Nazbvc And Vomiting, UnknownNopemiscot memorial health systems [employer] Other Comment on above:Onset Date: 05/17/2016 (6 sources)Nubain *ANALGESICS - OPIOID*Propensity to adverse reactionsUnknoBlue Ridge Regional Hospital [employer] Other (3 sources)Allergies ReconciledPropensity to adverse reactionsUnknoBuffalo General Medical Center [employer] Other (3 sources)patient allergy list reviewed by nurse or physiciaPropensity to adverse ielmlkrop07-93-0409Rxkvxwl:[facility] [employer] Other (20 sources)Nalbuphine; Translations: [NALBUPHINE]Drug Noutobv96-69-4847OlfhrParkview Health [facility] Hospital (1 source)No Known Medication Allergies; Translations: [No Known Medication Allergies]Propensity to adverse reactions (disorder)[facility] Repository (1 source)NalbuphineDrug Afdbvte43-12-6776AexirsiyySum[facility] (1 source)traMADolDrug Qnujclo40-69-1722LjrebueuxSumma Health [facility] Campus Repository (1 source)ALLERGIES NOT ON FILE; Translations: [ALLERGIES NOT ON FILE]Propensity to adverse reactions (disorder)[facility] Repository Medications Current Medications MedicationDrug Class(es)DatesSig (Normalized)Sig (Original)acetaminophen 325 mg oral tablet (10 sources)Start: 34-24-6174czwf 2 tablets by mouth every six hours for pain acetaminophen (TylenoL) 325 mg tablet Indications: Pelvic pain Take 2 tablets (650 mg) by mouth every 6 hours if needed for mild pain (1 - 3) for up to 30 doses. 30 tablet 12/14/2023 ActiveStart: 51-38-3506omkk 1 tablet by mouth every four hours as tphcvu480 mg, oral, Every 4 hours PRN, pain mild (1-3), first line, Starting on [place] 12/08/23 at 1809, If ordered PRN for pain, nurse is permitted to administer this medication for higher pain scores based onpatient preference? Yesacetaminophen 325 mg / oxyCODONE hydrochloride 5 mg oral tablet (20 sources)Opioid AgonistStart: 58-15-6760kmni 1 tablet by mouth three times daily as needed for painoxyCODONE-acetaminophen (Percocet) 5-325 MG tablet TAKE 1 TABLET BY MOUTH THREE TIMES A DAY NEEDED FOR PAIN 12/03/2024 ActiveStart: 11-29-2022 End: 88-38-7664ntno 1 tablet by mouth every six hours as needed for pain Oxycodone-Acetaminophen (Endocet) 5-325 mg tablet Discontinued 1 TAB PO Every 6 hours as needed forPain November 29, 2022 12:00am July 02, 2024 3:48pm End: 34-41-5306ogwl 1 tablet by mouth three times daily as neededoxyCODONE- acetaminophen (Percocet) 5-325 mg tablet Take 1 tablet by mouth 3 times a day as needed. 12/21/2023 Discontinued (Stop Taking at Discharge)take 1 tablet by mouth every six hoursoxyCODONE-Acetaminophen 5-325 MG 1 tablet as needed Orally every 6 hrs Activealbuterol 0.83 mg/ml inhalation solution (20 sources)beta2-Adrenergic AgonistStart: 42-18-4361cuomysxyu (2.5 MG/3ML) 0.083% nebulizer solution Indications: Acute cough , Chest congestion , Mild intermittent asthmatic bronchitis with acute exacerbation (HCC) Take 3 mL (2.5 mg) by nebulization every 6 (six) hours if needed for wheezing 75 mL 03/11/2025 ActiveStart: 78-20-6550veng 3 mL by inhalation every six hours as needed Albuterol Sulfate 2.5 mg /3 mL (0.083 %) solution for nebulization Active 2.5 MG INHALATION Every 6hours September 24, 2024 1:00am FreeTextSi mL as needed Inhalation every 6 hrs; Note: Source Status: Taking; Provider: Barron Coon ( ) Complies with drug therapyStart: 90-11-4553muliumwzx HFA 90 mcg/act inhaler 05/08/2024 ActiveStart: 83-54-6388ouiw 1 puff(s) by mouth every four hours as neededalbuterol HFA 90 mcg/act inhaler INHALE 1 PUFF BY MOUTH EVERY 4 HOURS NEEDED 05/08/2024 ActiveStart: 03-13-2024 End: 86-19-1909yvea 1 puff(s) by inhalation every four hours as neededAlbuterol Sulfate 90 mcg/actuation HFA aerosol inhaler Active 0 .ROUTE .COMPLEX 8.5 May 08, 2024 8:34am INHALE 1 PUFF INTO THE LUNGS EVERY 4 HOURS NEEDED Complies with drug therapyStart: 03-13-2024 End: 93-54-6568mpvz 1 puff(s) by inhalation every four hours as neededAlbuterol Sulfate 90 mcg/actuation HFA aerosol inhaler Discontinued 1 PUFF INHALATION Every 4 hoursas needed March 13, 2024 12:00am March 13, 2024 9:50amStart: 29-60-8029aazm 2 puff(s) by inhalation every six hours [...] Inhibitor, Nonsteroidal Anti-inflammatory Drug Start: 12-10-2023 End: 41-59-0144vdvg 1 tablet by mouth twice dailyaspirin 81 mg EC tablet Indications: Pelvic pain Take 1 tablet (81 mg) by mouth 2 times a day. 84 tablet 12/14/2023 01/25/2024 ActiveStart: 12-08-2023 End: 64-94-4259hgia 81 mg by mouth twice daily81 mg, oral, 2 times daily, First dose on [facility] 12/08/23 at 2100azithromycin 250 mg oral tablet (14 sources)Macrolide AntimicrobialStart: 60-04-4782jvtftqjozxdr (Zithromax) 250 MG tablet Indications: Acute cough , Chest congestion , Mild intermittent asthmatic bronchitis with acute exacerbation (HCC) Take 1 tablet (250 mg) by mouth Daily Take 2 tabs on day 1 and 1 tab on days 2-5 then stop 6 tablet 03/11/2025 ActiveStart: 09-26-2024 End: 53-40-2265Abykxbbxtqjx 250 mg tablet Discontinued 0 PO .COMPLEX 6 October 15, 2024 11:59am November 30, 2024 8:31am For 250 mg dose pack: take 500 mg today (day 1), then 250 mg for 4 days (days 2-5) POStart: 21-29-5405Lgqrmxlsxfyw 250 MG as directed Orally 2 tabs po today, then 1 tab daily x 4 more days for 5 May, ActiveStart: 94-94-8061Cxogausjypbl 250 MG as directed Orally 2 tabs po today, then 1 tab daily x 4 more days for 5 December, Activebaclofen 10 mg oral tablet (15 sources)gamma-Aminobutyric Acid-ergic AgonistStart: 80-56-4147sylk 1 tablet by mouth in the morning, [...] 100 mg oral capsule (2 sources)Non-narcotic AntitussiveStart: 53-93-9202ilby 1 capsule by mouth three times daily as needed for coughbenzonatate (Tessalon Perles) 100 MG capsule Indications: Acute cough , Chest congestion , Mild intermittent asthmatic bronchitis with acute exacerbation (HCC) Take 1 capsule (100 mg) by mouth 3 (three) times a day as needed for cough Do not crush or chew. 21 capsule 03/11/2025 Activebisacodyl 10 mg rectal suppository (1 source)Stimulant LaxativeStart: 76-36-4303qeud 10 mg rectal route every twenty-four hours as capahi81 mg, rectal, Daily PRN, constipation, first line, Starting on 12/10/23 at 0723calcium carbonate 500 mg chewable tablet (1 source)Start: 99-15-5891bomi 1000 mg by mouth four times daily as needed for gastroesophageal reflux disease1,000 mg, oral, 4 times daily PRN, heartburn, indigestion, Starting on 12/10/23 at 2201calcium carbonate 1500 mg / cholecalciferol 800 unt chewable tablet (3 sources)Vitamin DStart: 12-14-2023 End: 53-64-7551czjhkwd carbonate-vitamin D3 (Calcium 600 with Vitamin D3) 600 mg-10 mcg (400 unit) chewable tabletIndications: Pelvic pain Chew 1 tablet 2 times a day. 60 tablet 12/14/2023 01/13/2024 Activecetirizine hydrochloride 10 mg oral tablet (20 sources)Histamine-1 Receptor AntagonistStart: 19-95-8787otzc 1 tablet by mouth twice dailyCetirizine 10 [...] 0.025 mg oral tablet (20 sources)Vitamin DStart: 16-73-0167waam 5000 [IU] by mouth once daily5,000 Units, oral, Daily, First dose on [place]ata 12/08/23 at 2100Start: 64-39-6044eqlm 1 tablet by mouth once dailyCholecalciferol (Vitamin [...] 10 mg oral tablet (20 sources)Muscle RelaxantStart: 96-49-2630fyva 1 tablet by mouth three times daily as needed for muscle spasmscyclobenzaprine (Flexeril) 10 mg tablet Indications: Pelvic pain Take 1 tablet (10 mg) by mouth 3 times a day as needed for muscle spasms for up to 7 days. 21 tablet 12/14/2023 ActiveStart: 09-17-2023 End: 02-66-7658xucd 1 tablet by mouth three times daily as needed for pain cyclobenzaprine (Flexeril) 10 mg tablet TAKE 1 TABLET BY MOUTH THREE TIMES A DAY NEEDED FOR MUSCLE PAIN 09/17/2023 12/08/2023 Discontinued (Therapy completed)Start: 11-29-2022 End: 33-86-3287wlfx 2 tablets by mouth at bedtimeCyclobenzaprine 10 mg tablet Discontinued 20 MG PO Bedtime November 29, 2022 12:00am June 19, 2024 3:15pmdiclofenac sodium 75 mg delayed release oral tablet (20 sources)Nonsteroidal Anti-inflammatory DrugStart: 00-56-7689pcgl 1 tablet by mouth twice dailyDiclofenac Sodium [...] mg oral capsule (1 source)Histamine-1 Receptor AntagonistStart: 54-05-897891 mg, oral, Nightly PRN, sleep, If melatonin does not work, Starting on Tue12/12/23 at 0310docusate sodium 100 mg oral capsule (4 sources)Start: 12-08-2023 End: 68-79-1349mils 1 capsule by mouth twice dailydocusate sodium (Colace) 100 mg capsule Indications: Pelvic pain Take 1 capsule (100 mg) by mouth 2times a day. 60 capsule 12/14/2023 01/13/2024 Activefluticasone propionate 0.093 mg/actuat metered dose nasal spray (11 sources)CorticosteroidStart: 42-09-1108gsjf 1 puff(s) nasal route in the morningFluticasone Propionate (Xhance) 93 MCG/ACT Exhaler Suspension Indications: Chronic sinusitis, unspecified location , Nasal polyp Administer 1 puff into affected nostril(s) in the morning and 1 puff before bedtime. Samples LOT # [id number] Exp 10/2025. 16 mL 1 12/11/2024 ActiveStart: spray, Each Nostril, Daily, First dose on Tue12/14/23 at 2030, Shake gently. Before first use, prime pump (press 6 times until fine spray appears). After use, clean tip and replace cap.gabapentin 600 mg oral tablet (20 sources)Anti-epileptic AgentStart: 03-49-2149gksq 1 tablet by mouth in the morninggabapentin (Neurontin) 600 MG tablet Take 600 mg by mouth in the morning and 600 mg before bedtime.12/05/2024 ActiveStart: 69-51-4086trib 1 capsule by mouth once daily at bedtimegabapentin (Neurontin) 300 mg capsule Take 1 capsule (300 mg) by mouth once daily at bedtime. 10/27/2023 ActiveStart: 01-30-2021 End: 11-37-2593iliiyzgnso (NEURONTIN) 100 MG capsule TAKE 2 PILLS [...] oral tablet (20 sources)Angiotensin Converting Enzyme InhibitorStart: 14-45-6350twyx 1 tablet by mouth once dailyLisinopril 10 mg tablet Active 10 MG PO Daily December 27, 2024 1:57pm Complies with drug therapyStart: 11-15-2023 End: 34-45-1219eqkc 1 tablet by mouth once dailyLisinopril 20 mg tablet Discontinued 0 .ROUTE .COMPLEX November 08, 2024 9:40am December 27, 2024 1:57pm TAKE 1 TABLET BY MOUTH EVERY DAYStart: 11-29-2022 End: 19-91-5638aycg 1 tablet by mouth once dailyLisinopril 20 mg tablet Discontinued 20 MG PO Daily November 29, 2022 12:00am November 15, 2023 8:41amtake 1 tablet by mouth once dailylisinopril (PRINIVIL;ZESTRIL) 10 MG tablet Take 10 mg by mouth daily 0 Activeloratadine 10 mg oral tablet (2 sources)Start: 52-20-1138lcdt 10 mg by mouth twice daily10 mg, oral, 2 times daily, First dose (after last modification) on Tue12/14/23 at 2115Start: 12-13-2023 End: 70-16-8836eujv 10 mg by mouth once daily10 mg, oral, Daily, First dose on Tue12/13/23 at 2145magnesium oxide 500 mg oral tablet (11 sources)Start: 37-68-1220kcwg 1 tablet by mouth once dailymagnesium oxide 500 mg magnesium tablet Take 1 tablet (500 mg) by mouth once daily. 11/29/2022 Activemeclizine hydrochloride 12.5 mg oral tablet (1 source)AntiemeticStart: 56-41-2346geql 1 tablet by mouth every eight hours as needed for dizzinessMeclizine HCl 12.5 MG 1 tablet as needed Orally every 8 hours as needed for dizziness, may cause sedation for 5 days Oct, Active melatonin 5 mg oral tablet (1 source)Start: 80-38-4405lbbd 5 mg by mouth once daily as needed for sleep5 mg, oral, Nightly PRN, sleep, Starting on Tue12/09/23 at 2318meloxicam 15 mg oral tablet (2 sources)Nonsteroidal Anti-inflammatory DrugStart: 38-57-0699thew 1 tablet by mouth once dailymeloxicam (MOBIC) 15 MG tablet TAKE 1 TABLET BY MOUTH EVERY DAY 0 11/16/2020 ActivemethylPREDNISolone (2 sources)CorticosteroidStart: 03-11-2025 End: 08-87-4589kborrlZMQFCRCpxfkp (Medrol Dospak) 4 MG tablets Indications: Acute cough , Chest congestion , Mild intermittent asthmatic bronchitis with acute exacerbation (HCC) Follow schedule on package instructions 21 tablet 03/11/2025 03/18/2025 Activemultivitamin tablet (9 sources)take 1 tablet by mouth once dailymultivitamin tablet Take 1 tablet by mouth once daily. ActiveMultivitamin Tablet (5 sources)Start: 33-31-3563gmyn 1 tablet by mouth once dailyMultivitamin Tablet Active 1 TAB PO Daily November 29, 2022 12:00am Complies with drug therapyStart: 97-28-7644vpwv 1 tablet by mouth once dailyMultivitamin Tablet Active 1 TAB PO Daily November 29, 2022 12:00amStart: 94-50-0069fubs 1 tablet by mouth once daily Multivitamin Tablet Active 1 TAB PO Daily November 28, 2022 11:00pmomeprazole 40 mg delayed release oral capsule (7 sources)Proton Pump InhibitorStart: 01-03-2025 End: 47-70-9295cbzk 1 capsule by mouth before mealtimeomeprazole (PriLOSEC) [address] capsule Indications: Laryngopharyngeal reflux (LPR) Take 1 capsule (40 mg) by mouth in the morning. Take before meals. Do not crush or chew. 30 capsule 2 01/03/2025 01/03/2026 ActiveoxyCODONE hydrochloride 5 mg oral tablet (3 sources)Opioid AgonistStart: 87-96-0208ctaj 1 tablet by mouth every six hours as kegrmy47 mg, oral, Every 6 hours PRN, pain severe (7-10), first line, Starting on [place] 12/08/23 at 1809, If ordered PRN for pain, nurse is permitted to administer this medication for higher pain scores based on patient preference? YesStart: 12-08-2023 End: 79-94-6672hyvp 1 tablet by mouth every six hoursoxyCODONE (Roxicodone) 5 mg immediate release tablet Indications: Pelvic pain , Acute postoperativepain Take 1 tablet (5 mg) by mouth every 6 hours for 7 days. 28 tablet 12/14/2023 12/21/2023 Activepantoprazole (1 source)Proton Pump InhibitorStart: 22-48-3894hcxorpzkdrxb (ProtoNix) EC tablet 40 mgphenol 14 mg/ml mucosal spray (1 source)Start: 43-57-6928aidl 1 spray(s) by mouth every two hours as needed1 spray, Mouth/Throat, Every 2 hour PRN, sore throat, Starting on [place] 12/11/23 at 1141, Instruct patient to spit out after 15 seconds.polyethylene glycol 3350 20861 mg powder for oral solution (1 source)Osmotic LaxativeStart: g, oral, Daily, First dose on Tue12/08/23 at 1830, Bowel Regimen - for prevention of constipation.predniSONE 20 mg oral tablet (6 sources)Start: 53-53-1835dnmz 2 tablets by mouth every twenty-four hours predniSONE 20 MG 2 tablets Orally Once a day for 5 days Nov, Active Start: 38-18-9302nzxd 2 tablets by mouth every twenty-four hoursPromethazine (1 source)PhenothiazineStart: 85-96-8199nqfq 1 tablet by mouth every six hours as neededpromethazine (Phenergan) tablet 25 mgpromethazine (Phenergan) 12.5 mg in sodium chloride 0.9% 50 mL IV (1 source)Start: 78-25-4201djxi 12.5 mg intravenously every six hours as needed 12.5 mg, intravenous, Administer over 15 Minutes, Every 6 hours PRN, nausea/vomiting, first line, Starting on Tue12/11/23 at 2110sennosides, assisted 8.6 mg oral tablet (1 source)Start: 33-11-1511xfsp 1 tablet by mouth once daily8.6 mg (1 tablet), oral, Nightly, First dose on Tue12/08/23 at 2100sildenafil 100 mg oral tablet (20 sources)Phosphodiesterase 5 InhibitorStart: 01-14-2025 End: 88-15-8260Cplqlofjeg 100 mg tablet Active 100 MG PO Daily as needed for sexual activity February 06, 2025 8:50am administer 30 minutes to 4 hours before activity Complies with drug therapyStart: 84-09-7383tmydxnakrm (Viagra) 50 MG tablet 08/11/2024 ActiveStart: 07-16-2024 End: 80-49-3561Xqsmfacsla (Viagra) 50 mg tablet Discontinued 50 MG PO Daily as needed for sexual activity December 10, 2024 4:05pm January 14, 2025 8:32am administer 30 minutes to 4 hours before activitysimethicone 80 mg chewable tablet (1 source)Start: 71-76-4888vkyo 40 mg by mouth four times daily as ieofup03 mg, oral, 4 times daily PRN, flatulence, Starting on Tue12/09/23 at 1319sodium chloride 0.111 meq/ml nasal spray (1 source)Start: 33-72-8820qovx 1 spray(s) nasal route four times daily as needed for congestion1 spray, Each Nostril, 4 times daily PRN, congestion, Starting on Tue12/13/23 at 1350SUMAtriptan 50 mg oral tablet (10 sources)Serotonin-1b and Serotonin-1d Receptor AgonistStart: 63-14-1334ihnu 1 tablet by mouth every two hours, then take 4 tablets by mouth every hour Sumatriptan Succinate 50 mg tablet Active 0 .ROUTE .COMPLEX January 29, 2025 12:42pm TAKE 1 TABLETBY MOUTH AT ONSET OF HEADACHE. MAY REPEAT IN 2 HOURS IF NO RELIEF. MAX 4 TABS/24 HOURS Complies with drug therapyStart: 12-27-2024 End: 18-42-5444CVNNpatusqn (Imitrex) 50 MG tablet 12/27/2024 ActivetiZANidine 4 mg oral tablet (11 sources)Central alpha-2 Adrenergic AgonistStart: 84-97-0413ijwf 1 tablet by mouth three times daily as neededtiZANidine (ZANAFLEX) 4 MG tablet TAKE 1 TABLET BY MOUTH 3 TIMES A DAY NEEDED 0 11/20/2020 ActivevalACYclovir 1000 mg oral tablet (11 sources)Herpesvirus Nucleoside Analog DNA Polymerase Inhibitor, Herpes Simplex Virus Nucleoside Analog DNA Polymerase Inhibitor, Herpes Zoster Virus Nucleoside Analog DNA Polymerase InhibitorStart: 09-03-2024 End: 42-27-4762Arjkisqwdrev (Valtrex) 1 gram tablet Active 2000 MG [...] meq/ml injectable solution (2 sources)Start: 12-11-2023 End: 25-21-2692lald 75 mL intravenously every hour75 mL/hr, intravenous, Continuous, Starting on Tue12/11/23 at 0000Start: 12-08-2023 End: 47-11-7915aoza 100 mL intravenously every gfmk388 mL/hr, intravenous, Continuous, Starting on Tue12/08/23 at 1500, Recovery (only)ceFAZolin 2000 mg injection (1 source)Cephalosporin AntibacterialStart: 12-09-2023 End: 92-14-1714sizi 2 g intravenously every eight hours2 g, [...] 41 % injection (1 source)Start: 02-25-2021 End: 08-85-1678pfbisixxp (ISOVUE-M 200) 41 % dwrqveggs53 ml lidocaine hydrochloride 20 mg/ml injection (1 source)Antiarrhythmic, Amide Local AnestheticStart: 02-25-2021 End: 11-94-5701jmoyzzabf 2 % injectionMagnesium (5 sources)Start: 11-29-2022 End: 59-33-5129cnch 2 tablets by mouth once dailyMagnesium 250 mg Tablet Discontinued 500 MG PO Daily November 29, 2022 12:00am January 12, 2024 11:00am Start: 11-29-2022 End: 06-08-0615fzdd 2 tablets by mouth once dailyMagnesium 250 mg Tablet Discontinued 500 MG PO Daily November 28, 2022 11:00pm January 12, 2024 10:00am24 hr metoprolol succinate 25 mg extended release oral tablet (20 sources)beta-Adrenergic BlockerStart: 34-57-8789dpmg 1 tablet by mouth once dailymetoprolol succinate XL (Toprol-XL) 25 mg 24 hr tablet Take 1 tablet (25 mg) by mouth once daily. 11/15/2023 ActiveStart: 11-15-2023 End: 27-91-7950mked 1 tablet by mouth once dailyMetoprolol Succinate 25 mg tablet extended release 24 hr Discontinued 0 .ROUTE .COMPLEX 90 November 08, 2024 9:40am November 30, 2024 8:52am TAKE 1 TABLET BY MOUTH EVERY DAYStart: 11-29-2022 End: 78-90-2746pmlr 1 tablet by mouth once dailyMetoprolol Tartrate 25 mg Tablet Discontinued 25 MG PO Daily November 29, 2022 12:00am November 15, 2023 8:41am naproxen 500 mg oral tablet (1 source)Nonsteroidal Anti-inflammatory DrugStart: 09-17-2023 End: 69-44-9643oqvf 1 tablet by mouth twice dailynaproxen (Naprosyn) 500 mg tablet Take 1 tablet (500 mg) by mouth 2 times a day. 09/17/2023 09/24/2023 Expiredondansetron 4 mg disintegrating oral tablet (15 sources)Serotonin-3 Receptor AntagonistStart: 09-26-2024 End: 38-77-3317zleo 1 tablet by mouth every eight hours as needed for nausea and vomitingOndansetron 4 mg tablet,disintegrating Discontinued 4 MG PO Q8H as needed for nausea and vomiting September 26, 2024 1:00am November 30, 2024 8:32amStart: 35-96-7067aohrwzrkrxa (Zofran) 4 mg tablet Indications: Pelvic pain Take 2 tablets (8 mg) by mouth every 8 hours if needed for nausea or vomiting for up to 15 doses. 15 tablet 12/14/2023 ActiveStart: 22-55-5506uwty 1 tablet by mouth every eight hours as neededondansetron (Zofran) tablet 4 mgoxygen (O2) therapy (1 source)Start: 12-08-2023 End: 46-85-2603rlhqaeqnxm, Continuous , First dose on Tue12/08/23 at 1500, Recovery (only), Device: NasalCannula, Rate in liters per minute: 2 LPM, Keep O2 Sat Above: 92%simvastatin 20 mg oral tablet (20 sources)HMG-CoA Reductase InhibitorStart: 86-58-3290kfax 20 mg by mouth once daily20 mg, oral, Nightly, First dose on Tue12/08/23 at 2100Start: 11-15-2023 End: 54-32-1876hnwy 1 tablet by mouth once dailySimvastatin 20 mg tablet Discontinued 0 .ROUTE .COMPLEX 90 May 16, 2024 11:04am November 08, 2024 9:40am TAKE 1 TABLET BY MOUTH EVERY DAYStart: 11-29-2022 End: 77-45-0442gjza 1 tablet by mouth at bedtimeSimvastatin 20 mg tablet Discontinued 20 MG PO Bedtime November 29, 2022 12:00am November 15, 2023 8:41am traZODone hydrochloride 50 mg oral tablet (20 sources)Serotonin Reuptake InhibitorStart: 12-19-2023 End: 65-34-0756dcqo 1 tablet by mouth once daily at bedtimeTrazodone 50 mg tablet Discontinued 0 .ROUTE .COMPLEX 90 April 30, 2024 1:12pm November 05, 2024 9:13am TAKE 1 TABLET BY MOUTH EVERYDAY AT BEDTIMEStart: 07-26-2023 End: 77-33-6877oydj 1 tablet by mouth once daily at bedtimeTrazodone 50 mg tablet Discontinued 50 MG PO Daily at bedtime October 24, 2023 4:41pm October 25, 2023 12:25pm undefined Problems Active Problems Problem ClassificationProblemDateDocumented DateEpisodic/ChronicAcute bronchitis (1 source)Acute bronchitis, unspecifiedEpisodicAnxiety disorders (14 sources)Generalized anxiety disorder; Translations: [Generalized anxiety disorder]Onset: 93-61-7331JbmpbtaLyfhna (20 sources)Reactive airways dysfunction syndrome; Translations: [Unspecified asthma, uncomplicated]Onset: 12-08-2023 Resolved: 543229-48-3472OwyrsalVfsuwki obstructive pulmonary disease and bronchiectasis (3 sources)Acute exacerbation of chronic asthmatic bronchitis; Translations: [Chronic obstructive asthma, with(acute) exacerbation]Onset: 48-64-6791Iuiprzi Chronic obstructive pulmonary disease and bronchiectasis (4 sources)Bronchitis, not specified as acute or chronic; Translations: [BRONCHITIS NOT SPEC ACUTE/CHRON]Onset: 44-52-1064YedslmxkIajvbprvyjdul of surgical procedures or medical care (8 sources)Headache following lumbar puncture; Translations: [Other reaction to spinal and lumbar puncture]79-50-0358ZwsumrzrOdlosdnwxi associated with dizziness or vertigo (3 sources)Benign paroxysmal vertigo, left ear; Translations: [Lightheadedness] EpisodicEsophageal disorders (2 sources)Laryngopharyngeal reflux; Translations: [Gastro-esophageal reflux disease without esophagitis]95-17-4386VfpcjxjAekqrowt; including migraine (20 sources)Complicated migraine; Translations: [Migraine with aura, not intractable, without status migrainosus]ChronicJoint disorders and dislocations; trauma-related (3 sources)Traumatic arthropathy of the shoulder region; Translations: [Traumatic arthropathy, shoulder region]Onset: 39-24-6953MmemjawMqqmzbu and fatigue (19 sources)Fatigue; Translations: [Other fatigue]Onset: 55-45-7925Ixrfpjos Miscellaneous mental health disorders (5 sources)Primary insomnia; Translations: [Primary insomnia]Chronic Noninfectious gastroenteritis (15 sources)Acute gastroenteritis; Translations: [Noninfective gastroenteritis and colitis, unspecified]EpisodicNonspecific chest pain (6 sources)Chest pain, unspecified; Translations: [Chest pain at rest]Onset: 441447-98-2390FcpwhdijPiicmkmwhkbttp (1 source)Unilateral primary osteoarthritis, left hip; Translations: [UNI PRIM OSTEOARTHRITIS LT HIP]Onset: 83-20-7262BpwzchhMnnst acquired deformities (4 sources)Incompetence of nasal valve; 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] 40-85-8351NdzsimsrRkcby circulatory disease (13 sources)Elevated blood-pressure reading without diagnosis of hypertension; Translations: [Elevated blood-pressure reading, without diagnosis of hypertension]EpisodicOther circulatory disease (2 sources)Pulmonary congestion ; Translations: [Other specified symptoms and signs involving the circulatory and respiratory systems]41-19-0116GkyhcoftDlkjs connective tissue disease (4 sources)Cramp and spasm; Translations: [CRAMP AND SPASM]Onset: 09-16-2022 EpisodicOther connective tissue disease (5 sources)Other muscle spasm; Translations: [OTHER MUSCLE SPASM]Onset: 64-46-7244BzuatjjxJtdpm fractures (1 source)Closed fracture dislocation of pelvis ; Translations: [Fracture of unspecified parts of lumbosacralspine and pelvis, subsequent encounter for fracture with routine healing]33-85-2865CrcofeosYciwu fractures (3 sources)Fracture of unspecified parts of lumbosacral spine and pelvis, subsequent encounter for fracture with routine healing; Translations: [Aftercare for healing traumatic fracture of other bone]Onset: 04-91-4125ZfmhopipTgskw fractures (1 source)Fracture of unspecified parts of lumbosacral spine and pelvis, initial encounter for closed fracture; Translations: [Closed unspecified fracture of pelvis]44-06-6983TsrxtopiXvdwq injuries and conditions due to external causes (3 sources)Injury of left lower leg; Translations: [Unspecified injury of left lower leg, initial encounter]EpisodicOther injuries and conditions due to external causes (6 sources)H/O: facial injury; Translations: [Personal history of other (healed) physical injury and trauma]87-14-7563ZuijdxqwSrohm lower respiratory disease (2 sources)Cough; Translations: [Acute cough]19-31-5598ZueuiehdXosah nervous system disorders (1 source)Other chronic pain; Translations: [OTHER CHRONIC PAIN]Onset: 31-36-5578OaufpxcLkozr nervous system disorders (1 source)Acute postoperative pain; Translations: [Other acute postprocedural pain]46-49-4088NcxiwwxcAfhjv non-traumatic joint disorders (18 sources)Shoulder joint pain; Translations: [Pain in right shoulder]Onset: 63-30-7022RtqjqlvfFecxl nutritional; endocrine; and metabolic disorders (10 sources)Body mass index 30+ - obesity; Translations: [Obesity, unspecified] ChronicOther nutritional; endocrine; and metabolic disorders (6 sources)Obese class II; Translations: [Body mass index (BMI) 36.0-36.9, adult]ChronicOther nutritional; endocrine; and metabolic disorders (9 sources)Obese class I; Translations: [Body mass index 32.0-32.9, adult]Onset: 89-53-9951BmwmvpxHmwmk nutritional; endocrine; and metabolic disorders (3 sources)Simple obesity ; Translations: [Other obesity due to excess calories] Onset: 48-64-4814IyxclasYkdqf skin disorders (14 sources)Other hypertrophic disorders of the skin; Translations: [Unspecified hypertrophic and atrophic conditions of skin]45-00-8133RcokcqtoPkucp skin disorders (3 sources)Hypertrophic condition of skin; Translations: [Other hypertrophic disorders of the skin]EpisodicOther skin disorders (5 sources)Skin tag; Translations: [Other hypertrophic disorders of the skin] 23-68-0002XzpwwegaTpczv upper respiratory disease (12 sources)Rhinitis; Translations: [Chronic rhinitis]ChronicOther upper respiratory disease (3 sources)Seasonal allergic rhinitis; Translations: [Other seasonal allergic rhinitis]Onset: 10-30-2730IztcgkkLxufq upper respiratory disease (2 sources)Allergic rhinitis; Translations: [Allergic rhinitis, unspecified] 31-41-7459IbwkxedBhdjl upper respiratory disease (6 sources)Polyp of nasal cavity and/or nasal sinus; Translations: [Nasal polyp, unspecified]90-77-7167AeabtdqfNpcpu upper respiratory disease (6 sources)Deviated nasal septum; Translations: [Deviated nasal septum] 60-52-4322TjwnnuavWaqhk upper respiratory disease (4 sources)Hypertrophy of nasal turbinates; Translations: [Hypertrophy of nasal turbinates]35-66-6920CnsziyagYcrcy upper respiratory infections (20 sources)Chronic maxillary sinusitis; Translations: [Chronic maxillary sinusitis]Onset: 049640-45-3060RrzfappFeziq upper respiratory infections (6 sources)Acute maxillary sinusitis; Translations: [Acute maxillary sinusitis, unspecified]33-18-7514KarkfsxvBvzxvt media and related conditions (3 sources)Non-suppurative otitis media; Translations: [Unspecified nonsuppurative otitis media, right ear]EpisodicResidual codes; unclassified (3 sources)Family history of malignant neoplasm of gastrointestinal tract; Translations: [Family history of malignant neoplasm of digestive organs]Episodic Residual codes; unclassified (4 sources)Family history of prostate cancer; Translations: [Family history of malignant neoplasm of prostate]99-13-6575KlcpglgbHpahfarc codes; unclassified (2 sources)Family history of malignant neoplasm of prostate; Translations: [Family history of malignant neoplasm of prostate]47-93-4008HnjafqtpXsltpprrhke failure; insufficiency; arrest (adult) (12 sources)Chronic respiratory failure; Translations: [Chronic respiratory failure with hypoxia]ChronicSpondylosis; intervertebral disc disorders; other back problems (20 sources)Lumbar spondylosis; Translations: [Spondylosis without myelopathy or radiculopathy, lumbar region]Onset: 113793-24-2464JczfjuuKedbjrh (16 sources)Syncope and collapse; Translations: [Syncope and collapse]Onset: 14-49-4469PegmieosUpzjsojvjzmr (4 sources)LOW BACK PAIN, UNSPECIFIED; Translations: [LOW BACK PAIN, UNSPECIFIED]Onset: 12-70-5450Qrzkjjhvmwxr (3 sources)History of disease caused by Severe acute respiratory syndrome coronavirus 2 (situation); Translations: [Personal history of COVID-19]Viral infection (9 sources)Viral infection, unspecified; Translations: [Recurrent herpes simplex labialis]EpisodicViral infection (3 sources)Disease caused by 2019-nCoV; Translations: [COVID-19] Past or Other Problems Problem ClassificationProblemDateDocumented DateEpisodic/ChronicAbdominal pain (20 sources)Generalized abdominal pain; Translations: [Generalized abdominal pain]Onset: 120725-64-0007TtubfscoIqfkjpid reactions (3 sources)Contact dermatitis; Translations: [Contact dermatitis and other eczema, due to unspecified cause]Onset: 05-24-2341VnzkxfltPdjjncrvj infection; unspecified site (3 sources)Bacterial infectious disease; Translations: [Bacterial infection, unspecified, in conditions classified elsewhere and of unspecified site]Onset: 36-93-8477XlqdepzoHzdssyyrszry of device; implant or graft (2 sources)Fracture of pelvis following insertion of orthopedic implant, joint prosthesis, or bone plate; Translations: [Fracture of pelvis following insertion of orthopedic implant, joint prosthesis, or bone plate]Onset: 05-23-2024 EpisodicDisorders of lipid metabolism (20 sources)Hyperlipidemia; Translations: [Hyperlipidemia, unspecified]Onset: 12-08-2023 Resolved: 882700-28-8651UlryzffCckufwmbn hypertension (20 sources)Benign essential hypertension; Translations: [Essential hypertension, benign]Onset: 01-10-2019 Resolved: 536191-24-0795SfppjahMozhpmk on above:Problem List clean-up per request of Phys. EHR CmteFluid and electrolyte disorders (3 sources)Dehydration; Translations: [Dehydration]Onset: 72-30-1160Thqdicws Headache; including migraine (3 sources)Cough headache syndrome; Translations: [Primary cough headache]Onset: 00-43-0859VbljyconUctupvxlcsoos and screening for infectious disease (20 sources)Contact with or exposure to other viral diseases; Translations: [Contact with and (suspected) exposure to covid-19]Onset: 08-26-2020 Resolved: 042816-55-1461OrxrbxgzAogepnwpg (3 sources)Upper respiratory tract infection due to Influenza; Translations: [Influenza due to unidentified influenza virus with other respiratory manifestations]Onset: 45-45-0960ZovzghlwWmxsv disorders and dislocations; trauma-related (18 sources)Traumatic pubic symphysis separation; Translations: [Traumatic rupture of symphysis pubis, initial encounter]Onset: 08-07-2024 Resolved: 209734-71-8695IqyechltPxnqies (3 sources)Tinea cruris; Translations: [Tinea cruris]Onset: 86-74-6672Qqgqhpst Open wounds of extremities (3 sources)Open wound of hand except fingers without complication; Translations: [Open wound of hand except finger(s) alone, without mention of complication] Onset: 01-68-1163HmeidlblWcqom circulatory disease (2 sources)Elevated blood-pressure reading, without diagnosis of hypertension; Translations: [ELEVATED BP READING W/O DX HTN]Onset: 64-41-8047FxoacgzjEfcvb connective tissue disease (3 sources)Ganglion of joint; Translations: [Ganglion of joint]Onset: 01-10-2019 EpisodicOther connective tissue disease (3 sources)Cramp in limb; Translations: [Cramp of limb]Onset: 30-09-5363Pwtvwhwd Other fractures (20 sources)Fracture of pelvis; Translations: [Fracture of unspecified parts of lumbosacral spine and pelvis, initial encounter for closed fracture]Onset: 08-07-2024 Resolved: 064986-82-9968YihdeolbBfxdt lower respiratory disease (6 sources)Cough; Translations: [Cough, unspecified]Onset: 15-18-9683Vepcttys Other male genital disorders (20 sources)Pain in scrotum ; Translations: [Scrotal pain]Onset: 11-30-2023 Resolved: 106450-73-7452BnbyeehpRcwgx nervous system disorders (2 sources)Other acute postprocedural pain; Translations: [Other acute postprocedural pain]Onset: 89-39-6451VryvfuhvEiggy non-traumatic joint disorders (4 sources)Pain in left hip; Translations: [PAIN IN LEFT HIP]Onset: 04-20-2022 EpisodicOther non-traumatic joint disorders (3 sources)Arthralgia of the ankle and/or foot; Translations: [Pain in joint, ankle and foot]Onset: 77-46-4251FjnsybjnMmsqs non-traumatic joint disorders (20 sources)Hip pain; Translations: [Pain in right hip]Onset: 11-30-2023 Resolved: 220552-30-0259BwuvspwyMksqh nutritional; endocrine; and metabolic disorders (20 sources)Obesity; Translations: [Obesity, unspecified]Onset: 12-08-2023 Resolved: 074987-80-9344EowsyulPatjdctp codes; unclassified (3 sources)Family history of diabetes mellitus; Translations: [Family history of diabetes mellitus]Onset: 25-18-9774GrzairqhAyqxfiar codes; unclassified (3 sources)C/O - a back symptom; Translations: [Other symptoms referable to back]Onset: 38-44-2452PugbvirpLoldvmhp codes; unclassified (3 sources)Insomnia; Translations: [Insomnia, unspecified]Onset: 08-02-2018 EpisodicResidual codes; unclassified (18 sources)Family history of cancer of colon; Translations: [Family history of malignant neoplasm of digestiveorgans]Onset: 08-07-2024 Resolved: 887388-60-6160OjklxzgwUyeozka on above:Problem List clean-up per request of Phys. EHR CmteSpondylosis; intervertebral disc disorders; other back problems (20 sources)Sciatica; Translations: [Sciatica, left side]Onset: 05-08-2018 Resolved: 458742-67-6218DosjevorRixcrey and strains (6 sources)Lumbar sprain; Translations: [Sprain of ligaments of lumbar spine, initial encounter]Onset: 35-65-5502XazlenqpJbyngfqhoxpt (1 source)LOW BACK PAIN, UNSPECIFIED; Translations: [LOW BACK PAIN, UNSPECIFIED] Onset: 65-17-6168Oaquezqrsnew (3 sources)Tetanus-diphtheria [Td] [DT]; Translations: [Tetanus-diphtheria [Td] [DT]]Onset: 58-37-8864Vdxwrvzgiila (1 source)Lumbar pain M54.50 Results Test NameValueInterpretationReference RangeFacilityBasophils Auto (Bld) [#/Vol] on 37-43-3716Ccnqwgeiy (Bld) [#/Vol]Automated basophil count0.0-0.1FMain Campus Medical CenterBasophils (Bld) [#/Vol]0.1 10 3/uL0.0-0.1FMain Campus Medical CenterBasophils/100 WBC Auto (Bld)on 94-79-8648Jjxtdtgtm/100 WBC (Bld)Automated basophil %0.2-2.0[facility] Basophils/100 WBC (Bld)0.8 %0.2-2.0[facility] CampusCT MAXILLOFACIAL WO IV CONTRASTon 01-88-2360NC MAXILLOFACIAL WO IV CONTRASTExam: CT MAXILLOFACIAL WO [...] Keller, DONormalNot AvailableCholesterol in LDL Calc [Mass/Vol]on 40-31-3445Zxobelnavzn in LDL [Mass/Vol]Cholesterol in LDL [Mass/volume] in Serum or Plasma by calculationSumma Health [facility] Campus Comment on above:<100 mg/dl UQWQWDH707-691 mg/dl NEAR OR ABOVE VWKRVFU965-779 mg/dl BORDERLINE WXEF643-041 mg/dl HIGH>190 mg/dl VERY HIGHCholesterol in LDL [Mass/Vol]80.0 mg/dLSumma Health Akron CampusComment on above:<100 mg/dl EAHVFAM853-876 mg/dl NEAR OR ABOVE DRTJUWZ846-972 mg/dl BORDERLINE VOZI219-398 mg/dl HIGH>190 mg/dl VERY HIGHCholesterol in VLDL Calc [Mass/Vol]on 11-30-2024 Cholesterol in VLDL [Mass/Vol]Cholesterol in VLDL [Mass/volume] in Serum or Plasma by calculationSumma Health Akron CampusCholesterol in VLDL [Mass/Vol]17.0 mg/dLSumma Health Akron CampusEosinophils/100 WBC Auto (Bld)on 29-70-3967Kqioqbhawbf/100 WBC (Bld)Automated eosinophil %0.9-7.0 [facility] CampusEosinophils/100 WBC (Bld)3.5 %0.9-7.0[facility] CampusErythrocyte distribution width Auto (RBC) [Ratio]on 96-20-8933Zosneuyzubk distribution width (RBC) [Ratio]Erythrocyte distribution width [Ratio] by Automated count11.0-15.0[facility] Erythrocyte distribution width (RBC) [Ratio]14.3 %11.0-15.0[facility] CampusEstimated glomerular filtration rate (GFR) non- Americanon 82-24-1654BBX/1.73 sq M.predicted among non-blacks MDRD (S/P/Bld) [Vol rate/Area]Estimated glomerular filtration rate (GFR) non->=60 mL/min/1.73m 2FMain Campus Medical CenterGFR/1.73 sq M.predicted among non-blacks MDRD (S/P/Bld) [Vol rate/Area]mL/min/{1.73_m2}>=60 mL/min/1.73m 2 [facility] CampusGlobulin Calc (S) [Mass/Vol]on 11-30-2024 Globulin (S) [Mass/Vol]Serum globulin measurement by calculation (mass/volume) [facility] CampusGlobulin (S) [Mass/Vol]3.0 g/dLSumma Health Akron CampusHematocrit Auto (Bld) [Volume fraction]on 11-30-2024 Hematocrit (Bld) [Volume fraction]Hematocrit [Volume Fraction] of Blood by Automated znfgdJxf66.0-54.0[facility] CampusHematocrit (Bld) [Volume fraction]37.7 %Low42.0-54.0[facility] CampusHemoglobin [Mass/volume] in Bloodon 64-52-2300Kegkvtbuyf (Bld) [Mass/Vol]Hemoglobin [Mass/volume] in CovveSgy45.0-18.0[facility] CampusHemoglobin (Bld) [Mass/Vol]11.8 g/dLLow14.0-18.0[facility] CampusLaboratory - Chemistry and Chemistry - challengeon 24-08-4280Snmsret [Mass/Vol]3.5 g/dL 3.4-5.0[facility] CampusALP [Catalytic activity/Vol]61 U/L46-116 [facility] CampusALT [Catalytic activity/Vol]19 U/L16-63 [facility] CampusAST [Catalytic activity/Vol]16 U/L15-37 [facility] CampusBilirubin [Mass/Vol]0.4 mg/dL0.2-1.0[facility] CampusCalcium [Mass/Vol]8.5 mg/dL8.5-10.1FMain Campus Medical CenterChloride [Moles/Vol]106 mmol/C98-567EukhumrnaSumma Health Akron CampusCholesterol [Mass/Vol]129 mg/dL<=200[facility] Cholesterol in HDL [Mass/Vol]32 mg/mJJlx30-17GrwmnbidlSumma Health [facility] Campus Comment on above:> or =60 mg/dl - LOW CARDIOVASCULAR RISK<40 mg/dl - HIGH CARDIOVASCULAR RISKCO2 [Moles/Vol]28.9 mmol/L21.0-32.0[facility] CampusCreatinine [Mass/Vol]0.93 mg/dL0.70-1.30[facility] GFR/1.73 sq M.predicted MDRD (S/P/Bld) [Vol rate/Area]mL/min/{1.73_m2}>=60 mL/min/1.73m 2FMain Campus Medical CenterGlucose [Mass/Vol]92 mg/aG45-507 [facility] CampusPotassium [Moles/Vol]4.4 mmol/L3.5-5.1FMain Campus Medical CenterProtein [Mass/Vol]6.5 g/dL6.4-8.2FMercy Health Clermont Hospitalodium [Moles/Vol]141 mmol/K915-444RwvvsbzfoSumma Health Akron CampusTriglyceride [Mass/Vol]85 mg/dL<=150[facility] CampusUrea nitrogen [Mass/Vol]10.0 mg/dL7.0-18.0[facility] CampusUrea nitrogen/Creatinine [Mass ratio]10.8 mg/mgSumma Health [facility] Campus Laboratory - Hematology and Cell countson 83-18-0124Lffijfcz granulocytes/100 WBC (Bld)0.3 %0.0-0.5FMain Campus Medical CenterLeukocytes [#/volume] corrected for nucleated erythrocytes in Blood by Automated counon 40-18-6100MVN corrected for nucl RBC Auto (Bld) [#/Vol]Leukocytes [#/volume] corrected for nucleated erythrocytes in Blood by Automated coun4.0-11.0[facility] CampusWBC corrected for nucl RBC Auto (Bld) [#/Vol]7.2 10 3/uL4.0-11.0 [facility] CampusLymphocytes Auto (Bld) [#/Vol]on 11-30-2024 Lymphocytes (Bld) [#/Vol]Lymphocytes [#/volume] in Blood by Automated count 1.2-3.8[facility] CampusLymphocytes (Bld) [#/Vol]1.8 10 3/uL 1.2-3.8[facility] CampusLymphocytes/100 WBC Auto (Bld)on 43-81-4254Nqrnehcvwyi/100 WBC (Bld)Lymphocytes/100 leukocytes in Blood by Automated count20.5-60.0[facility] CampusLymphocytes/100 WBC (Bld)24.7 %20.5-60.0[facility] HospitalH Auto (RBC) [Entitic mass]on 33-61-9846IPI (RBC) [Entitic mass]MCH [Entitic mass] by Automated count Low25.9-34.0[facility] (RBC) [Entitic mass]24.7 pgLow 25.9-34.0[facility] CampusMCHC Auto (RBC) [Mass/Vol]on 42-76-1724LPUI (RBC) [Mass/Vol]MCHC [Mass/volume] by Automated count29.9-35.2 [facility] HospitalHC (RBC) [Mass/Vol]31.3 g/dL29.9-35.2 [facility] HospitalV Auto (RBC) [Entitic vol]on 59-91-6291JSZ (RBC) [Entitic vol]MCV [Entitic volume] by Automated mjiubXme86.0-94.0[facility] HospitalV (RBC) [Entitic vol]79.0 fLLow80.0-94.0[facility] CampusMonocytes Auto (Bld) [#/Vol]on 02-02-0687Ebuudspod (Bld) [#/Vol]Automated blood monocyte count0.3-0.8[facility] Monocytes (Bld) [#/Vol]0.6 10 3/uL0.3-0.8[facility] Monocytes/100 WBC Auto (Bld)on 94-22-3130Tyulpcbvu/100 WBC (Bld)Automated monocyte %1.7-12.0[facility] CampusMonocytes/100 WBC (Bld)8.4 % 1.7-12.0[facility] CampusNeutrophils Auto (Bld) [#/Vol]on 83-22-3626Ekpgubxrlhd (Bld) [#/Vol]Neutrophils [#/volume] in Blood by Automated count1.4-6.5[facility] CenterNeutrophils (Bld) [#/Vol]4.5 10 3/uL1.4-6.5FMain Campus Medical CenterNeutrophils/100 WBC Auto (Bld)on 59-13-9281Camtpxemeyh/100 WBC (Bld)Automated neutrophil %43.0-75.0[facility] CampusNeutrophils/100 WBC (Bld)62.3 %43.0-75.0[facility] CampusNo Panel Informationon 87-05-6307Eynmknlymzi # (Auto)0.3 10 3/uL0.0-0.7FMain Campus Medical CenterImmature Granulocyte # (Auto)0.02 10 3/uL0.00-0.03[facility] CampusProstate Specific Antigen Screen2.52 ng/mL<=4.00[facility] CampusPlatelet mean volume Auto (Bld) [Entitic vol]on 68-61-2438Bwljpwly mean volume (Bld) [Entitic vol] Platelet mean volume [Entitic volume] in Blood by Automated countLow9.5-13.5 [facility] CampusPlatelet mean volume (Bld) [Entitic vol]9.0 fL Low9.5-13.5FMain Campus Medical CenterPlatelets Auto (Bld) [#/Vol]on 78-38-0064Lgwwnczbj (Bld) [#/Vol]Platelets [#/volume] in Blood by Automated rtdhu124-924BedhgrilzSumma Health Akron CampusPlatelets (Bld) [#/Vol]302 10 3/uL 150-450[facility] CampusRBC Auto (Bld) [#/Vol]on 76-65-2025TPH (Bld) [#/Vol]Erythrocytes [#/volume] in Blood by Automated count4.70-6.10 [facility] CampusRBC (Bld) [#/Vol]4.77 10 6/uL4.70-6.10[facility] Hospitalerum or plasma albumin/globulin mass ratioon 11-30-2024 Albumin/Globulin [Mass ratio]Serum or plasma albumin/globulin mass ratio [facility] CampusAlbumin/Globulin [Mass ratio]1.2 {ratio} [facility] Hospitalerum or plasma anion gap determinationon 57-26-6636Cdfti gap [Moles/Vol]Serum or plasma anion gap determinationSumma Health Akron CampusAnion gap [Moles/Vol]10.5 mmol/LFMercy Health Clermont Hospitalerum or plasma total cholesterol/high density lipoprotein (HDL) cholesterol mass nirav 43-52-0349Nguygdtsyxg.total/Cholesterol in HDL [Mass ratio]Serum or plasma total cholesterol/high density lipoprotein (HDL) cholesterol mass [facility] SystemComment on above:3.3 - 4.4 LOW RISK4.4 - 7.1 AVERAGE RISK7.1 - 11.0 MODERATE RISK>11.0 HIGH RISK Cholesterol.total/Cholesterol in HDL [Mass ratio]4.0 {ratio}[facility] CampusComment on above:3.3 - 4.4 LOW RISK4.4 - 7.1 AVERAGE RISK7.1 - 11.0 MODERATE RISK>11.0 HIGH RISKXR PELVIS 3+ VIEWSon 80-08-5238JC PELVIS 3+ VIEWSInterpreted By: Sushma Black, STUDY: Pelvis, 5 views. INDICATION: Signs/Symptoms:pelvis fracture. COMPARISON: 05/23/2024. ACCESSION NUMBER(S): [id number] ORDERING CLINICIAN: ADAM NAVAROR FINDINGS: No acute fracture or malalignment. Posterior [...] Sushma Black 11/22/2024 1:23 PM Dictation workstation: [id number] Behavioral HospitalComment on above:Order Comment: 5 view of the pelvisInfluenza virus B Ag [Presence] in Upper respiratory specimen by Rapid immunoassayon 70-32-1784FYZVS Ag IA.rapid Ql (Nph)Influenza virus B Ag [Presence] in Upper respiratory specimen by Rapid immunoassaySumma Health Akron CampusNo Panel Informationon 96-57-7114Hvwqrgqml Type A (Rapid)NegativeFirelands Regional Medical CenterPOC SARS CoV-2 AntigenNegativeSumma Health [facility] Campus Basophils Auto (Bld) [#/Vol]on 67-86-0084Zjlhqrxch (Bld) [#/Vol]Automated basophil count0.0-0.1FMain Campus Medical CenterBasophils/100 WBC Auto (Bld)on 31-56-7371Iokugfxvz/100 WBC (Bld)Automated basophil %0.2-2.0[facility] CampusEosinophils/100 WBC Auto (Bld)on 08-29-2024 Eosinophils/100 WBC (Bld)Automated eosinophil %0.9-7.0[facility] CampusErythrocyte distribution width Auto (RBC) [Ratio]on 43-45-6659Vxxfdzuquuq distribution width (RBC) [Ratio]Erythrocyte distribution width [Ratio] by Automated count11.0-15.0[facility] CampusEstimated glomerular filtration rate (GFR) non- Americanon 28-20-8477DUZ/1.73 sq M.predicted among non-blacks MDRD (S/P/Bld) [Vol rate/Area]Estimated glomerular filtration rate (GFR) non->=60 mL/min/1.73m 2FMain Campus Medical CenterHematocrit Auto (Bld) [Volume fraction]on 61-95-2494Gkooqfysnu (Bld) [Volume fraction]Hematocrit [Volume Fraction] of Blood by Automated countLow 42.0-54.0[facility] CampusHemoglobin [Mass/volume] in Bloodon 78-15-5756Octaaegfxi (Bld) [Mass/Vol]Hemoglobin [Mass/volume] in BloodLow 14.0-18.0[facility] CampusLaboratory - Chemistry and Chemistry - challengeon 47-51-4583Antvsqi [Mass/Vol]8.7 mg/dL8.5-10.1FMain Campus Medical CenterChloride [Moles/Vol]102 mmol/L91-291CdtqwztcgSumma Health Akron CampusCO2 [Moles/Vol]27.9 mmol/L21.0-32.0[facility] Creatinine [Mass/Vol]1.20 mg/dL0.70-1.30[facility] GFR/1.73 sq M.predicted MDRD (S/P/Bld) [Vol rate/Area]mL/min/{1.73_m2}>=60 mL/min/1.73m 2FMain Campus Medical CenterGlucose [Mass/Vol]113 mg/dLHigh 74-106[facility] CampusPotassium [Moles/Vol]4.0 mmol/L3.5-5.1 [facility] Hospitalodium [Moles/Vol]138 mmol/U972-066BimbvjoleSumma Health Akron CampusUrea nitrogen [Mass/Vol]10.0 mg/dL7.0-18.0[facility] CampusUrea nitrogen/Creatinine [Mass ratio]8.3 mg/mgSumma Health Akron CampusLaboratory - Hematology and Cell countson 08-29-2024 Immature granulocytes/100 WBC (Bld)0.4 %0.0-0.5FMain Campus Medical Center Leukocytes [#/volume] corrected for nucleated erythrocytes in Blood by Automated counon 01-09-4007DTY corrected for nucl RBC Auto (Bld) [#/Vol]Leukocytes [#/volume] corrected for nucleated erythrocytes in Blood by Automated counHigh 4.0-11.0[facility] CampusLymphocytes Auto (Bld) [#/Vol]on 02-94-2931Punlvvinzcv (Bld) [#/Vol]Lymphocytes [#/volume] in Blood by Automated count1.2-3.8[facility] CampusLymphocytes/100 WBC Auto (Bld)on 07-22-3289Dkgtoiixfbs/100 WBC (Bld)Lymphocytes/100 leukocytes in Blood by Automated cbkeuKsl42.5-60.0[facility] CampusMCH Auto (RBC) [Entitic mass]on 85-50-7077HPL (RBC) [Entitic mass]MCH [Entitic mass] by Automated ewseeDqj01.9-34.0[facility] CampusMCHC Auto (RBC) [Mass/Vol]on 64-21-2955UMHM (RBC) [Mass/Vol]MCHC [Mass/volume] by Automated count29.9-35.2FMain Campus Medical CenterMCV Auto (RBC) [Entitic vol]on 63-33-6683QLT (RBC) [Entitic vol]MCV [Entitic volume] by Automated countLow 80.0-94.0[facility] CampusMonocytes Auto (Bld) [#/Vol]on 51-37-0679Jkfvbbwgn (Bld) [#/Vol]Automated blood monocyte count0.3-0.8[facility] CampusMonocytes/100 WBC Auto (Bld)on 03-85-2748Nkawuqrad/100 WBC (Bld)Automated monocyte %1.7-12.0[facility] Neutrophils Auto (Bld) [#/Vol]on 64-32-0043Yastqnkiuhg (Bld) [#/Vol]Neutrophils [#/volume] in Blood by Automated countHigh1.4-6.5FMain Campus Medical CenterNeutrophils/100 WBC Auto (Bld)on 54-59-4176Vvarjeojpwu/100 WBC (Bld) Automated neutrophil %High43.0-75.0[facility] CampusNo Panel Informationon 59-21-2372Hiiwwoysnwx # (Auto)0.1 10 3/uL0.0-0.7FMain Campus Medical CenterImmature Granulocyte # (Auto)0.05 10 3/uLHigh0.00-0.03[facility] CampusPlatelet mean volume Auto (Bld) [Entitic vol]on 71-73-8567Kgjtecuh mean volume (Bld) [Entitic vol]Platelet mean volume [Entitic volume] in Blood by Automated count9.5-13.5FMain Campus Medical Center Platelets Auto (Bld) [#/Vol]on 14-43-9188Axkgsogug (Bld) [#/Vol]Platelets [#/volume] in Blood by Automated vahxz023-572TkfykmvylSumma Health Akron Campus RBC Auto (Bld) [#/Vol]on 35-70-7972TJR (Bld) [#/Vol]Erythrocytes [#/volume] in Blood by Automated count4.70-6.10[facility] Hospitalerum or plasma anion gap determinationon 80-46-8754Bqgzq gap [Moles/Vol]Serum or plasma anion gap determinationSumma Health Akron CampusConsulton 08-07-2024 [id number] Prosper Milian 1975 M Date Provider Department Center 08/07/2024 [facility] SURG [place] Family History Problem Relation Age of Onset Cancer Father Cancer Paternal Grandfather Family Status - Relation Status Age at Father Paternal Grandfather Level of Service:73575 MS OFFICE/OP CONSLTJ NEW/EST PT MOD MDM 40 MINUTES Reason for Visit and Comments: Consult [484]Summa HealthNM beba perf SPECT rest str on 46-19-8164KR beba perf SPECT rest strSELECT [facility] [place] [address] Nuclear Medicine Report Signed Patient: Prosper Milian MR#: [id number] 6 : 1975 Acct:[id number] Age/Sex: 48 / M ADM Date: 07/09/24 Loc: Room: Type: [facility] Attending Dr: Chantal Mart MD [...] Evelyn Macdonald M.D.07/10/2024 2:38 PM Dictation Location: [place] [address] Transcribed By: REBA 07/10/24 1438 Dictated By: Evelyn Macdonald MD 07/10/24 1435 Signed By: 07/10/24 1438[facility] Physician GroupXR PELVIS 3+ VIEWSon 05-23-2024 XR PELVIS 3+ VIEWSInterpreted By: Cesar Solomon, STUDY: XR PELVIS 3+ VIEWS; ; 05/23/2024 1:18 pm INDICATION: Signs/Symptoms:pelvis fracture. ,R10.2 Pelvic and perineal pain COMPARISON: 02/29/2024 ACCESSION NUMBER(S): [id number] ORDERING CLINICIAN: ADAM NAVARRO FINDINGS: Pelvis, five views Postsurgical changes in the pelvis with screw fixation through the sacrum and the plate and screw fixation of the pubic symphysis. No acute fracture seen. Mild degenerative change of the hips IMPRESSION: Postsurgical change about the pelvis without hardware failure. MACRO: None Signed by: Cesar Solomon 05/24/2024 7:08 AM Dictation workstation: [id number] Behavioral HospitalComment on above:Order Comment: 5 view of the pelvisXR PELVIS 3+ VIEWSon 99-63-0825DR PELVIS 3+ VIEWSInterpreted By: Cesar Solomon, STUDY: XR PELVIS 3+ VIEWS; ; 02/29/2024 12:59 pm INDICATION: Signs/Symptoms:pelvis fracture. COMPARISON: 02/01/2020 ACCESSION NUMBER(S): [id number] ORDERING CLINICIAN: ADAM NAVARRO FINDINGS: Pelvis, five views Postsurgical changes in the sacrum and the pubic symphysis with screws and plate and screw fixation respectively. The hardware is intact. There is no malalignment. No significant degenerative changes IMPRESSION: Postsurgical change in the pelvis with intact hardware. No malalignment seen MACRO: None Signed by: Cesar Solomon 03/01/2024 6:55 PM Dictation workstation: [id number]n Behavioral HospitalComment on above:Order Comment: 5 view of the pelvisXR PELVIS 3+ VIEWSon 63-79-3181YU PELVIS 3+ VIEWSInterpreted By: Sushma Black, STUDY: Pelvis, 5 views. INDICATION: Signs/Symptoms:pelvis fracture. COMPARISON: 12/28/2023. ACCESSION NUMBER(S): [id number] ORDERING CLINICIAN: ADAM NAVARRO FINDINGS: No acute [...] Sushma Black 02/02/2024 7:24 PM Dictation workstation: [id number]wn Behavioral HospitalComment on above:Order Comment: 5 view of the pelvisXR PELVIS 3+ VIEWSon 85-81-2983RB PELVIS 3+ VIEWSInterpreted By: Caryn Norman, STUDY: XR PELVIS 3+ VIEWS; ; 12/28/2023 12:54 pm INDICATION: Signs/Symptoms:pain. COMPARISON: Pelvis radiographs dated 12/08/2023. ACCESSION NUMBER(S): [id number] ORDERING CLINICIAN: ADAM NAVARRO FINDINGS: Extensive postsurgical [...] Caryn Norman 12/30/2023 12:52 PM Dictation workstation: [id number]wn Behavioral HospitalComment on above:Order Comment: 5v pelvis (AP/inlet/outlet/Judet's)Basic metabolic 2000 panelon 41-19-1681Oubzy gap [Moles/Vol]12 mmol/L10 - 20 mmol/L [facility] HospitalCalcium [Mass/Vol]8.3 mg/dLLow8.6 - 10.6 mg/dL [facility] HospitalChloride [Moles/Vol]103 mmol/L98 - 107 mmol/L [facility] HospitalCO2 [Moles/Vol]27 mmol/L21 - 32 mmol/L [facility] HospitalCreatinine [Mass/Vol]0.82 mg/dL0.50 - 1.30 mg/dLUnCleveland Clinic Euclid HospitaleGFR- PINFUniMemorial Health System Marietta Memorial HospitalComment on above:Calculations of estimated GFR are performed using the 2020 CKD-EPI Study Refit equation without therace variable for the IDMS- Traceable creatinine methods. https://jasn.asnjournals.org/content//ASN.1531404273 Glucose [Mass/Vol]103 mg/nNOzdm72 - 99 mg/dLUnCleveland Clinic Euclid Hospital Interpretation and review of laboratory resultsAbnoalUAdams County HospitalPotassium [Moles/Vol]3.6 mmol/L3.5 - 5.3 mmol/[facility] HospitalSodium [Moles/Vol]138 mmol/L136 - 145 mmol/[facility] Community HospitalUrea nitrogen [Mass/Vol]14 mg/dL6 - 23 mg/dLUnCleveland Clinic Euclid HospitalAnion gap [Moles/Vol]12 mmol/TRxloop92-65LeivxnfdelSalem Regional Medical CenterComment on above:Performed By: #### 97589-9 ####ANASTACIO Hodge ([id number])[facility] ([facility])[address] [place], [place] [address]Obohfyb [Mass/Vol]8.3 mg/dLLow8.6-10.6UnSalem Regional Medical Center Comment on above:Performed By: #### 43715-5 ####ANASTACIO Hodge ([id number])[facility] ([facility])[address] [place], [place] [address]Afvfhajn [Moles/Vol] 103 mmol/AFuyqva39-475VovszuwybgSalem Regional Medical CenterComment on above:Performed By: #### 42367-6 ####ANASTACIO Hodge ([id number])[facility] ([facility])[address] [place], [place] [address]IM5 [Moles/Vol]27 mmol/NWftfuw01-93 [facility] HospitalComment on above:Performed By: #### 77897-0 ####ANASTACIO Hodge ([id number])[facility] ([facility])[address] [place], [place] [address]Oksrhmiftu [Mass/Vol]0.82 mg/dLNormal0.50-1.30 [facility] HospitalComment on above:Performed By: #### 26353-9 ####ANASTACIO Hodge ([id number])[facility] ([facility])[address] [place], [place] [address]ABN/1.73 sq M.predicted MDRD (S/P/Bld) [Vol rate/Area] mL/min/{1.73_m2}Normal>60UnSalem Regional Medical CenterComment on above:Result Comment: Calculations of estimated GFR are performed using the 2020 CKD-EPI Study Refit equation without the race variable for the IDMS-Traceable creatinine methods. https://jasn.asnjournals.org/content/early//ASN.4708730943Hsadbwzwy By: #### 14595-5 ####ANASTACIO Hodge ([id number])[facility] ([facility])[address] [place], [place] [address]Lebunii [Mass/Vol]103 mg/wNFpxv67-42GytoehaxleSalem Regional Medical CenterComment on above:Performed By: #### 40540-0 ####ANASTACIO Hodge ([id number])[facility] ([facility])[address] [place], [place] [address]Oeymkkzop [Moles/Vol]3.6 mmol/LNormal3.5-5.3UnSalem Regional Medical CenterComment on above:Performed By: #### 13920-0 ####ANASTACIO Hodge ([id number])[facility] ([facility])[address] [place], [place] [address]Xvjbiy [Moles/Vol]138 mmol/JExflzx112-639VamtxzpevpSalem Regional Medical Center Comment on above:Performed By: #### 09210-5 ####ANASTACIO Hodge ([id number])[facility] ([facility])[address] [place], [place] [address]Bubp nitrogen [Mass/Vol]14 mg/dLNormal6-23Henry County HospitalComment on above:Performed By: #### 04746-0 ####ANASTACIO Hodge ([id number])[facility] ([facility])[address] [place], [place] [address]WPZ W Auto Differential panel (Bld)on 00-38-0250Rjutdutan (Bld) [#/Vol]0.05 10*3/[facility] Basophils/100 WBC (Bld)0.6 %0.0 - 2.0 %[facility] Eosinophils (Bld) [#/Vol]0.30 10*3/[facility] Eosinophils/100 WBC (Bld)3.3 %0.0 - 6.0 %[facility] Erythrocyte distribution width (RBC) [Ratio]13.1 %11.5 - 14.5 %[facility] HospitalHematocrit (Bld) [Volume fraction]32.7 %Low41.0 - 52.0 % [facility] HospitalHemoglobin (Bld) [Mass/Vol]10.8 g/dLLow13.5 - 17.5 g/dLUnCleveland Clinic Euclid HospitalImharry [facility] granulocytes (Bld) [#/Vol] 0.13 10*3/[facility]imaImharry [facility] granulocytes/100 WBC (Bld) 1.4 %High0.0 - 0.9 %[facility] HospitalComment on above:Immature Granulocyte Count (IG) includes promyelocytes, myelocytes and metamyelocytes but does not include bands. Percent differential counts (%) should be interpreted in the context of the absolute cell counts (cells/UL).Interpretation and review of laboratory resultsAbnormalUniMemorial Health System Marietta Memorial HospitalLymphocytes (Bld) [#/Vol]1.61 10*3/[facility] LimaLymphocytes/100 WBC (Bld) 17.8 %13.0 - 44.0 %[facility] HospitalMCH (RBC) [Entitic mass]28.1 pg26.0 - 34.0 pgUnMarymount Hospital (RBC) [Mass/Vol]33.0 g/dL 32.0 - 36.0 g/dLDetwiler Memorial HospitalMCV (RBC) [Entitic vol]85 fL80 - 100 fLUniMemorial Health System Marietta Memorial HospitalMonocytes (Bld) [#/Vol]0.71 10*3/uL [facility] HospitalMonocytes/100 WBC (Bld)7.8 %2.0 - 10.0 % [facility] HospitalNeutrophils (Bld) [#/Vol]6.25 10*3/[facility] LimaComment on above:Percent differential counts (%) should be interpreted in the context of the absolute cell counts (cells/uL). Neutrophils/100 WBC (Bld)69.1 %40.0 - 80.0 %[facility] Nucleated RBC/100 WBC (Bld) [Ratio]0.0 %[facility] Platelets (Bld) [#/Vol]280 10*3/[facility] LimaRBC (Bld) [#/Vol]3.85 10*6/uLRegency Hospital CompanyWBC (Bld) [#/Vol]9.1 10*3/[facility] LimaUnC[facility] Clinic [facility] Hospital Basophils (Bld) [#/Vol]0.05 x10*3/uLNormal0.00-0.10UnSalem Regional Medical CenterComment on above:Performed By: #### 76354-4 ####ANASTACIO Hodge ([id number])[facility] ([facility])[address] [place], [place] [address]Ocydhmgbw/100 WBC (Bld)0.6 %Normal0.0-2.0UnSalem Regional Medical CenterComment on above:Performed By: #### 48407-6 ####ANASTACIO Hodge ([id number])[facility] ([facility])[address] [place] [address] Eosinophils (Bld) [#/Vol]0.30 x10*3/uLNormal0.00-0.70[facility] HospitalComment on above:Performed By: #### 95325-6 ####ANASTACIO Hodge ([id number])[facility] ([facility])[address] [place], [place] [address]Twijhswymuw/100 WBC (Bld)3.3 %Normal0.0-6.0[facility] HospitalComment on above:Performed By: #### 20261-7 ####ANASTACIO Hodge ([id number])[facility] ([facility])[address] [place] [address] Erythrocyte distribution width (RBC) [Ratio]13.1 %Lftpjz57.5-14.5UnSalem Regional Medical CenterComment on above:Performed By: #### 72832-0 ####ANASTACIO Hodge ([id number])[facility] ([facility])[address] [place], [place] [address]Rzhjichsnb (Bld) [Volume fraction]32.7 %Low41.0-52.0UnSalem Regional Medical CenterComment on above:Performed By: #### 00372-9 ####ANASTACIO Hodge ([id number])[facility] ([facility])[address] [place], [place] [address]Xnwoqhwxba (Bld) [Mass/Vol]10.8 g/dLLow13.5-17.5UnSalem Regional Medical CenterComment on above:Performed By: #### 70674-9 ####ANASTACIO Hodge ([id number])[facility] ([facility])[address] [place], [place] [address]Hrslygcj granulocytes (Bld) [#/Vol]0.13 x10*3/uLNormal0.00-0.70UnSalem Regional Medical CenterComment on above:Performed By: #### 52008-9 ####ANASTACIO Hodge ([id number])[facility] ([facility])[address] [place], [place] [address]Ansajgcw granulocytes/100 WBC (Bld)1.4 %High0.0-0.9UnSalem Regional Medical CenterComment on above:Result Comment: Immature Granulocyte Count (IG) includes promyelocytes, myelocytes and metamyelocytes but does not include bands. Percent differential counts (%) should be interpreted in the context of the absolute cell counts (cells/UL).Performed By: #### 21037-4 ####ANASTACIO Hodge ([id number])[facility] ([facility])[address] [place], [place] [address]Ywbexbhbrtq (Bld) [#/Vol]1.61 x10*3/uLNormal1.20-4.80[facility] HospitalComment on above:Performed By: #### 39988-1 ####ANASTACIO Hodge ([id number])[facility] ([facility])[address] [place], [place] [address]Blbqurtwauw/100 WBC (Bld)17.8 %Wnsfnc44.0-44.0UnSalem Regional Medical CenterComment on above:Performed By: #### 85989-0 ####ANASTACIO Hodge ([id number])[facility] ([facility])[address] [place], [place] [address]MKB (RBC) [Entitic mass]28.1 fnJgxprj24.0-34.0UnSalem Regional Medical CenterComment on above:Performed By: #### 47097-4 ####ANASTACIO Hodge ([id number])[facility] ([facility])[address] [place], [place] [address]NJGS (RBC) [Mass/Vol]33.0 g/gSJmdilg56.0-36.0UnSalem Regional Medical CenterComment on above:Performed By: #### 12108-2 ####ANASTACIO Hodge ([id number])[facility] ([facility])[address] [place], [place] [address]CDJ (RBC) [Entitic vol]85 pEVzxxdk87-595UogypjmgdfSalem Regional Medical CenterComment on above:Performed By: #### 34913-4 ####ANASTACIO Hodge ([id number])[facility] ([facility])[address] [place], [place] [address]Wrournacp (Bld) [#/Vol]0.71 x10*3/uLNormal0.10-1.00[facility] Comment on above:Performed By: #### 64598-1 ####ANASTACIO Hodge ([id number])[facility] ([facility])[address] [place], [place] [address]Gqxauealb/100 WBC (Bld)7.8 %Normal2.0-10.0UnSalem Regional Medical CenterComment on above:Performed By: #### 29840-8 ####ANASTACIO Hodge ([id number])[facility] ([facility])[address] [place], [place] [address]Ajbzwyniokj (Bld) [#/Vol]6.25 x10*3/uLNormal1.20-7.70UnSalem Regional Medical CenterComment on above:Result Comment: Percent differential counts (%) should be interpreted in the context of the absolute cell counts (cells/uL).Performed By: #### 16865-9 ####ANASTACIO Hodge ([id number])[facility] ([facility])[address] [place], [place] [address]Yvtzloeeymb/100 WBC (Bld)69.1 %Uwrrmy87.0-80.0[facility] HospitalComment on above:Performed By: #### 99579-6 ####ANASTACIO Hodge ([id number])[facility] ([facility])[address] [place], [place] [address]Uyugyrhqi RBC/100 WBC (Bld) [Ratio]0.0 /100 WBCsNormal0.0-0.0[facility] HospitalComment on above:Performed By: #### 04279-6 ####ANASTACIO Hodge ([id number])[facility] ([facility])[address] [place], [place] [address]Qqrmsnznj (Bld) [#/Vol]280 x10*3/dXJyuqnk422-253MxdjthyqdcSalem Regional Medical CenterComment on above:Performed By: #### 82580-7 ####ANASTACIO Hodge ([id number])[facility] ([facility])[address] [place], [place] [address]AJS (Bld) [#/Vol]3.85 x10*6/uLLow4.50-5.90[facility] HospitalComment on above:Performed By: #### 69775-3 ####ANASTACIO Hodge ([id number])[facility] ([facility])[address] [place], [place] [address]URA (Bld) [#/Vol]9.1 x10*3/uLNormal4.4-11.3[facility] HospitalComment on above:Performed By: #### 37627-7 ####ANASTACIO Hodge ([id number])[facility] ([facility])[address] [place], [place] [address]Hpdxzqeonxaqtghcd, 12-lead PRN ACS symptomsOrdered By: Dustin Lyman on 72-74-1102Fwxppx Fweq371WUT [facility] Work Phone: [phone] Wcjg49midxemzLxlugffaopSCCI Hospital Lima Work Phone: [phone] Pqobbr745 [facility] Work Phone: [phone] Fzfct280 [facility] Work Phone: [phone] Sigvcwnu338 [facility] Work Phone: [phone] Pinjq421 [facility] Work Phone: [phone] Tueeu54gndfkYdnhovyukzFranciscan Health Crown Point Work Phone: [phone] Isllvors06 [facility] Work Phone: [phone] Gxlkuodj683 [facility] Work Phone: [phone] Calculation(Bazett)454 [facility] Work Phone: [phone] Hualbdaeok066 [facility] Work Phone: [phone] Afop7dpyplhjLioqjgpwbjSCCI Hospital Lima Work Phone: [phone] Yjma33hvduovgUqzbhdcqxjDetwiler Memorial Hospital Work Phone: T Jbdbzv024 msUnCleveland Clinic Euclid Hospital Work Phone: Ventricular Nxiu643HCODxtilhsswdAdams County Hospital Work Phone: UnCleveland Clinic Euclid Hospital Work Phone: Electrocardiogram, 12-lead PRN ACS symptomson 70-85-1326Keccw tachycardia Minimal voltage criteria for LVH, may be normal variant Borderline ECG No previous ECGs available Confirmed by Dustin Lyman ([id number]) on 12/14/2023 2:58:33 PMDustin Rutledge MD - 12/14/2023 Sinus tachycardia Minimal voltage criteria for LVH, may be normal variant Borderline ECG No previous ECGs available Confirmed by Dustin Lyman ([id number]) on 12/14/2023 2:58:33 PM [facility] Work Phone: Magnesiumon 42-65-5543Wjpfpsjdh [Mass/Vol]2.11 mg/dL 1.60 - 2.40 mg/dLDetwiler Memorial HospitalMagnesium [Mass/Vol]2.11 mg/dL Normal1.60-2.40[facility] HospitalComment on above: Performed By: #### 17815-5 ####ANASTACIO Hodge ([id number])[facility] ([facility])[address] [place] [address]Vutheyeho [Mass/Vol]on 37-23-8140Evuisbsdrfrmnl and review of laboratory resultsNormalUniversFranciscan Health Crown PointNo Panel Informationon 97-58-6154BgaxtejdioCleveland Clinic Euclid HospitalBasic metabolic 2000 panelon 11-40-8882Riesb gap [Moles/Vol]13 mmol/L10 - 20 mmol/[facility] HospitalCalcium [Mass/Vol]8.5 mg/dLLow8.6 - 10.6 mg/dLUnCleveland Clinic Euclid HospitalChloride [Moles/Vol]100 mmol/L98 - 107 mmol/[facility] HospitalCO2 [Moles/Vol]28 mmol/L21 - 32 mmol/[facility] HospitalCreatinine [Mass/Vol]0.92 mg/dL0.50 - 1.30 mg/dLUnCleveland Clinic Euclid HospitaleGFR- PINFUAdams County HospitalComment on above:Calculations of estimated GFR are performed using the 2020 CKD-EPI Study Refit equation without therace variable for the IDMS-Traceable creatinine methods. https://jasn.asnjournals.org/content/early/ASN.6923331719 Glucose [Mass/Vol]101 mg/aRGjwp96 - 99 mg/dLUnCleveland Clinic Euclid Hospital Interpretation and review of laboratory resultsAbnoRegency Hospital CompanyPotassium [Moles/Vol]3.9 mmol/L3.5 - 5.3 mmol/[facility] HospitalSodium [Moles/Vol]137 mmol/L136 - 145 mmol/[facility] HospitalUrea nitrogen [Mass/Vol]16 mg/dL6 - 23 mg/dLUnCleveland Clinic Euclid HospitalAnion gap [Moles/Vol]13 mmol/TMztcyj82-27YzqziulqveSalem Regional Medical CenterComment on above:Performed By: #### 70190-3 ####ANASTACIO Hodge ([id number])[facility] ([facility])[address] [place], [place] [address]Zkotadj [Mass/Vol]8.5 mg/dLLow8.6-10.6UnSalem Regional Medical Center Comment on above:Performed By: #### 48508-4 ####ANASTACIO Hodge ([id number])[facility] ([facility])[address] [place], [place] [address]Ggdbvkcy [Moles/Vol] 100 mmol/STkwcbd96-211PxylvanhqxSalem Regional Medical CenterComment on above:Performed By: #### 47507-5 ####ANASTACIO Hodge ([id number])[facility] ([facility])[address] [place], [place] [address]HE8 [Moles/Vol]28 mmol/ZCgmnlk12-68 [facility] HospitalComment on above:Performed By: #### 84196-3 ####ANASTACIO Hodge ([id number])[facility] ([facility])[address] [place], [place] [address]Xzvcwpeqat [Mass/Vol]0.92 mg/dLNormal0.50-1.30 [facility] HospitalComment on above:Performed By: #### 94446-9 ####ANASTACIO Hodge ([id number])[facility] ([facility])[address] [place], [place] [address]TOB/1.73 sq M.predicted MDRD (S/P/Bld) [Vol rate/Area] mL/min/{1.73_m2}Normal>60UnSalem Regional Medical CenterComment on above:Result Comment: Calculations of estimated GFR are performed using the 2020 CKD-EPI Study Refit equation without the race variable for the IDMS-Traceable creatinine methods. https://jasn.asnjournals.org/content///ASN.2987151300Spopkmjmn By: #### 00050-4 ####ANASTACIO Hodge ([id number])[facility] ([facility])[address] [place], [place] [address]Xuhvefa [Mass/Vol]101 mg/zKNxkh10-45PegnmzjktwSalem Regional Medical CenterComment on above:Performed By: #### 02883-6 ####ANASTACIO Hodge ([id number])[facility] ([facility])[address] [place], [place] [address]Subxhaqox [Moles/Vol]3.9 mmol/LNormal3.5-5.3Henry County HospitalComment on above:Performed By: #### 86682-9 ####ANASTACIO Hodge ([id number])[facility] ([facility])[address] [place], [place] [address]Rqbzpx [Moles/Vol]137 mmol/JEiotai274-180ZsjcoilckjSalem Regional Medical Center Comment on above:Performed By: #### 21176-9 ####ANASTACIO Hodge ([id number])[facility] ([facility])[address] [place], [place] [address]Njgm nitrogen [Mass/Vol]16 mg/dLNormal6-23UnSalem Regional Medical CenterComment on above:Performed By: #### 27306-1 ####ANASTACIO Hodge ([id number])[facility] ([facility])[address] [place], [place] [address]VDH W Auto Differential panel (Bld)on [id number] (Bld) [#/Vol]0.06 10*3/[facility] Basophils/100 WBC (Bld)0.5 %0.0 - 2.0 %[facility] Eosinophils (Bld) [#/Vol]0.40 10*3/[facility] Eosinophils/100 WBC (Bld)3.4 %0.0 - 6.0 %[facility] Erythrocyte distribution width (RBC) [Ratio]13.1 %11.5 - 14.5 %[facility] HospitalHematocrit (Bld) [Volume fraction]36.4 %Low41.0 - 52.0 % [facility] HospitalHemoglobin (Bld) [Mass/Vol]12.0 g/dLLow13.5 - 17.5 g/dLUnCleveland Clinic Euclid HospitalImmamemorial health [facility] granulocytes (Bld) [#/Vol] 0.17 10*3/[facility]Im[facility] granulocytes/100 WBC (Bld) 1.4 %High0.0 - 0.9 %[facility] HospitalCommymichigan medical center west branch on above:Immature Granulocyte Count (IG) includes promyelocytes, myelocytes and metamyelocytes but does not include bands. Percent differential counts (%) should be interpreted in the context of the absolute cell counts (cells/UL).Interpretation and review of laboratory resultsAbnormalUniMemorial Health System Marietta Memorial HospitalLymphocytes (Bld) [#/Vol]2.07 10*3/[facility] LimaLymphocytes/100 WBC (Bld) 17.5 %13.0 - 44.0 %[facility] (RBC) [Entitic mass]28.1 pg26.0 - 34.0 pgUniversity Hospitals of ClevelandMCHC (RBC) [Mass/Vol]33.0 g/dL 32.0 - 36.0 g/dLDetwiler Memorial HospitalMCV (RBC) [Entitic vol]85 fL80 - 100 fLUniMemorial Health System Marietta Memorial HospitalMonocytes (Bld) [#/Vol]0.87 10*3/uL [facility] HospitalMonocytes/100 WBC (Bld)7.3 %2.0 - 10.0 % [facility] HospitalNeutrophils (Bld) [#/Vol]8.28 10*3/uLAdena Pike Medical CenterComment on above:Percent differential counts (%) should be interpreted in the context of the absolute cell counts (cells/uL). Neutrophils/100 WBC (Bld)69.9 %40.0 - 80.0 %[facility] Nucleated RBC/100 WBC (Bld) [Ratio]0.0 %[facility] Platelets (Bld) [#/Vol]307 10*3/[facility] LimaRBC (Bld) [#/Vol]4.27 10*6/[facility] Medical CenterWBC (Bld) [#/Vol]11.9 10*3/[facility] HospitalUnC[facility] Basophils (Bld) [#/Vol]0.06 x10*3/uLNormal0.00-0.10Henry County HospitalComment on above:Performed By: #### 31533-3 ####ANASTACIO Hodge ([id number])[facility] ([facility])[address] [place], [place] [address]Xyxlvkwdp/100 WBC (Bld)0.5 %Normal0.0-2.0UnSalem Regional Medical CenterComment on above:Performed By: #### 53733-9 ####ANASTACIO Hodge ([id number])[facility] ([facility])[address] [place] [address] Eosinophils (Bld) [#/Vol]0.40 x10*3/uLNormal0.00-0.70Henry County HospitalComment on above:Performed By: #### 35377-0 ####ANASTACIO Hodge ([id number])[facility] ([facility])[address] [place], [place] [address]Ftpkcfkhyab/100 WBC (Bld)3.4 %Normal0.0-6.0Henry County HospitalComment on above:Performed By: #### 83430-7 ####ANASTACIO Hodge ([id number])[facility] ([facility])[address] [place] [address] Erythrocyte distribution width (RBC) [Ratio]13.1 %Cuedcv31.5-14.5Henry County HospitalComment on above:Performed By: #### 23001-0 ####ANASTACIO Hodge ([id number])[facility] ([facility])[address] [place] [address]Jtoepawmwy (Bld) [Volume fraction]36.4 %Low41.0-52.0UnSalem Regional Medical CenterComment on above:Performed By: #### 44366-7 ####ANASTACIO Hodge ([id number])[facility] ([facility])[address] [place] [address]Dwskftlabc (Bld) [Mass/Vol]12.0 g/dLLow13.5-17.5Henry County HospitalComment on above:Performed By: #### 65021-6 ####ANASTACIO Hodge ([id number])[facility] ([facility])[address] [place] [address]Lmkevjvt granulocytes (Bld) [#/Vol]0.17 x10*3/uLNormal0.00-0.70Henry County HospitalComment on above:Performed By: #### 07215-5 ####ANASTACIO Hodge ([id number])[facility] ([facility])[address] [place] [address]Rthvcemc granulocytes/100 WBC (Bld)1.4 %High0.0-0.9UnSalem Regional Medical CenterComment on above:Result Comment: Immature Granulocyte Count (IG) includes promyelocytes, myelocytes and metamyelocytes but does not include bands. Percent differential counts (%) should be interpreted in the context of the absolute cell counts (cells/UL).Performed By: #### 93321-8 ####ANASTACIO Hodge ([id number])[facility] ([facility])[address] [place], [place] [address]Ryhwroyybht (Bld) [#/Vol]2.07 x10*3/uLNormal1.20-4.80UnSalem Regional Medical CenterComment on above:Performed By: #### 77851-1 ####ANASTACIO Hodge ([id number])[facility] ([facility])[address] [place], [place] [address]Uyfjiyuytro/100 WBC (Bld)17.5 %Mrgpky94.0-44.0Henry County HospitalComment on above:Performed By: #### 31225-0 ####ANASTACIO Hodge ([id number])[facility] ([facility])[address] [place], [place] [address]KDX (RBC) [Entitic mass]28.1 ieOcgxra79.0-34.0UnSalem Regional Medical CenterComment on above:Performed By: #### 51882-1 ####ANASTACIO Hodge ([id number])[facility] ([facility])[address] [place], [place] [address]ZCAU (RBC) [Mass/Vol]33.0 g/xGSjiikb97.0-36.0Henry County HospitalComment on above:Performed By: #### 88004-8 ####ANASTACIO Hodge ([id number])[facility] ([facility])[address] [place], [place] [address]DSQ (RBC) [Entitic vol]85 uOFcispb62-854MbshbcvryhSalem Regional Medical CenterComment on above:Performed By: #### 88651-4 ####ANASTACIO Hodge ([id number])[facility] ([facility])[address] [place], [place] [address]Szrwpunhw (Bld) [#/Vol]0.87 x10*3/uLNormal0.10-1.00[facility] Comment on above:Performed By: #### 66150-6 ####ANASTACIO Hodge ([id number])[facility] ([facility])[address] [place], [place] [address]Frsbpeizw/100 WBC (Bld)7.3 %Normal2.0-10.0Henry County HospitalComment on above:Performed By: #### 09894-8 ####ANASTACIO Hodge ([id number])[facility] ([facility])[address] [place], [place] [address]Rdxkjkbrtjh (Bld) [#/Vol]8.28 x10*3/uLHigh1.20-7.70UnSalem Regional Medical CenterComment on above:Result Comment: Percent differential counts (%) should be interpreted in the context of the absolute cell counts (cells/uL).Performed By: #### 64567-7 ####ANASTACIO Hodge ([id number])[facility] ([facility])[address] [place], [place] [address]Zjoluetadev/100 WBC (Bld)69.9 %Ojokgf62.0-80.0Henry County HospitalComment on above:Performed By: #### 31036-3 ####ANASTACIO Hodge ([id number])[facility] ([facility])[address] [place], [place] [address]Btwialrdv RBC/100 WBC (Bld) [Ratio]0.0 /100 WBCsNormal0.0-0.0Henry County HospitalComment on above:Performed By: #### 71193-2 ####ANASTACIO Hodge ([id number])[facility] ([facility])[address] [place], [place] [address]Iiisopalz (Bld) [#/Vol]307 x10*3/hBUnnlgg665-334XuyupmnqrfSalem Regional Medical CenterComment on above:Performed By: #### 64797-4 ####ANASTACIO Hodge ([id number])[facility] ([facility])[address] [place], [place] [address]JRY (Bld) [#/Vol]4.27 x10*6/uLLow4.50-5.90UnSalem Regional Medical CenterComment on above:Performed By: #### 25954-5 ####ANASTACIO Hodge ([id number])[facility] ([facility])[address] [place], [place] [address]WJX (Bld) [#/Vol]11.9 x10*3/uLHigh4.4-11.3UnSalem Regional Medical CenterComment on above:Performed By: #### 42016-0 ####ANASTACIO Hodge ([id number])[facility] ([facility])[address] [place] [address]Pvgcopowsjr 74-46-8410Mzgdmcerm [Mass/Vol]2.12 mg/dL1.60 - 2.40 mg/dLUnCleveland Clinic Euclid HospitalMagnesium [Mass/Vol]2.12 mg/dLNormal1.60-2.40UnSalem Regional Medical CenterComment on above:Performed By: #### 95609-9 ####ANASTACIO Hodge ([id number])[facility] ([facility])[address] [place] [address]Whyttwsai [Mass/Vol]on 57-05-7633Tpzfgnrzrbdqnx and review of laboratory resultsNormalUniversFranciscan Health Crown PointNo Panel Informationon 12-13-2023 [facility] HospitalBasi metabolic 2000 panelon 09-38-3402Iagrm gap [Moles/Vol]14 mmol/L10 - 20 mmol/[facility] HospitalCalcium [Mass/Vol]7.8 mg/dLLow8.6 - 10.6 mg/dLDetwiler Memorial HospitalChloride [Moles/Vol]103 mmol/L98 - 107 mmol/[facility] Community HospitalCO2 [Moles/Vol]25 mmol/L21 - 32 mmol/[facility] HospitalCreatinine [Mass/Vol]0.87 mg/dL0.50 - 1.30 mg/dLUnCleveland Clinic Euclid HospitaleGFR- PINF [facility] HospitalComment on above:Calculations of estimated GFR are performed using the 2020 CKD-EPI Study Refit equation without therace variable for the IDMS-Traceable creatinine methods. https://jasn.asnjournals.org/content//ASN.5933975296 Glucose [Mass/Vol]89 mg/dL74 - 99 mg/dLUnCleveland Clinic Euclid Hospital Interpretation and review of laboratory resultsAbnormalUniMemorial Health System Marietta Memorial HospitalPotassium [Moles/Vol]3.4 mmol/LLow3.5 - 5.3 mmol/[facility] HospitalSodium [Moles/Vol]139 mmol/L136 - 145 mmol/[facility] HospitalUrea nitrogen [Mass/Vol]14 mg/dL6 - 23 mg/dLUnCleveland Clinic Euclid HospitalAnion gap [Moles/Vol]14 mmol/GAswgpb66-20SkuhynountSalem Regional Medical CenterComment on above:Performed By: #### 53065-0 ####ANASTACIO Hodge ([id number])[facility] ([facility])[address] [place], [place] [address]Lyuzosg [Mass/Vol]7.8 mg/dLLow8.6-10.6UnSalem Regional Medical Center Comment on above:Performed By: #### 12825-2 ####ANASTACIO Hodge ([id number])[facility] ([facility])[address] [place], [place] [address]Lklggmgh [Moles/Vol] 103 mmol/SFjwjql87-392SjierqfrilSalem Regional Medical CenterComment on above:Performed By: #### 28424-5 ####ANASTACIO Hodge ([id number])[facility] ([facility])[address] [place], [place] [address]UQ6 [Moles/Vol]25 mmol/SVhdfqb42-21 [facility] HospitalComment on above:Performed By: #### 64235-7 ####ANASTACIO Hodge ([id number])[facility] ([facility])[address] [place], [place] [address]Afbjbtmzdy [Mass/Vol]0.87 mg/dLNormal0.50-1.30 [facility] HospitalComment on above:Performed By: #### 81365-6 ####ANASTACIO Hodge ([id number])[facility] ([facility])[address] [place], [place] [address]BIY/1.73 sq M.predicted MDRD (S/P/Bld) [Vol rate/Area] mL/min/{1.73_m2}Normal>60UnSalem Regional Medical CenterComment on above:Result Comment: Calculations of estimated GFR are performed using the 2020 CKD-EPI Study Refit equation without the race variable for the IDMS-Traceable creatinine methods. https://jasn.asnjournals.org/content/early//ASN.8883678752Sdbympouw By: #### 71292-3 ####ANASTACIO Hodge ([id number])[facility] ([facility])[address] [place], [place] [address]Wjviuoh [Mass/Vol]89 mg/tSSuwads89-45UhnxwzhoohSalem Regional Medical CenterComment on above:Performed By: #### 46678-1 ####ANASTACIO Hodge ([id number])[facility] ([facility])[address] [place], [place] [address]Jzmsnnhhf [Moles/Vol]3.4 mmol/LLow3.5-5.3Henry County HospitalComment on above:Performed By: #### 28480-3 ####ANASTACIO Hodge ([id number])[facility] ([facility])[address] [place], [place] [address]Zkeasr [Moles/Vol]139 mmol/UIvrduf872-667DcmesgakvcHenry County Hospital Comment on above:Performed By: #### 28604-9 ####ANASTACIO Hodge ([id number])[facility] ([facility])[address] [place], [place] [address]Bkgq nitrogen [Mass/Vol]14 mg/dLNormal6-23Henry County HospitalComment on above:Performed By: #### 74921-2 ####ANASTACIO Hodge ([id number])[facility] ([facility])[address] [place] [address] W Auto Differential panel (Bld)on 33-65-7548Xtwhsmksg (Bld) [#/Vol]0.07 10*3/[facility] Basophils/100 WBC (Bld)0.5 %0.0 - 2.0 %[facility] Eosinophils (Bld) [#/Vol]0.26 10*3/[facility] Eosinophils/100 WBC (Bld)2.0 %0.0 - 6.0 %[facility] Erythrocyte distribution width (RBC) [Ratio]12.8 %11.5 - 14.5 %[facility] Memorial HospitalHematocrit (Bld) [Volume fraction]34.8 %Low41.0 - 52.0 % [facility] HospitalHemoglobin (Bld) [Mass/Vol]11.8 g/dLLow13.5 - 17.5 g/dLUnCleveland Clinic Euclid HospitalImmamemorial health system [facility] granulocytes (Bld) [#/Vol] 0.10 10*3/[facility]imaImhar[facility] granulocytes/100 WBC (Bld) 0.8 %0.0 - 0.9 %[facility] HospitalCommymichigan medical center west branch on above:Immature Granulocyte Count (IG) includes promyelocytes, myelocytes and metamyelocytes but does not include bands. Percent differential counts (%) should be interpreted in the context of the absolute cell counts (cells/UL).Interpretation and review of laboratory resultsAbnormalUniMemorial Health System Marietta Memorial HospitalLymphocytes (Bld) [#/Vol]1.93 10*3/[facility] LimaLymphocytes/100 WBC (Bld) 14.7 %13.0 - 44.0 %[facility] HospitalH (RBC) [Entitic mass]27.8 pg26.0 - 34.0 pgUnMarymount Hospital (RBC) [Mass/Vol]33.9 g/dL 32.0 - 36.0 g/dLUniversity Hospitals of ClevelandMCV (RBC) [Entitic vol]82 fL80 - 100 fLUniMemorial Health System Marietta Memorial HospitalMonocytes (Bld) [#/Vol]1.09 10*3/[facility] HospitalMonocytes/100 WBC (Bld)8.3 %2.0 - 10.0 % [facility] HospitalNeutrophils (Bld) [#/Vol]9.66 10*3/Marymount HospitalComment on above:Percent differential counts (%) should be interpreted in the context of the absolute cell counts (cells/uL). Neutrophils/100 WBC (Bld)73.7 %40.0 - 80.0 %[facility] Nucleated RBC/100 WBC (Bld) [Ratio]0.0 %[facility] Platelets (Bld) [#/Vol]296 10*3/[facility]imaRBC (Bld) [#/Vol]4.25 10*6/[facility] Medical CenterWBC (Bld) [#/Vol]13.1 10*3/City HospitalUnCleveland Clinic [facility]uclid Hospital Basophils (Bld) [#/Vol]0.07 x10*3/uLNormal0.00-0.10[facility] HospitalComment on above:Performed By: #### 63365-8 #### ANASTACIO Hodge ([id number]) [facility] ([facility]) [address] [place], [place] [address]Rqihpwrzz/100 WBC (Bld)0.5 %Normal0.0-2.0[facility] HospitalComment on above:Performed By: #### 97134-1 #### ANASTACIO Hodge ([id number]) [facility] ([facility]) [address] [place], [place] [address]Asefxgrprng (Bld) [#/Vol]0.26 x10*3/uLNormal0.00-0.70 [facility] HospitalComment on above:Performed By: #### 82068-7 #### ANASTACIO Hodge ([id number]) [facility] ([facility]) [address] [place] [address]Sbhhfagalrk/100 WBC (Bld)2.0 %Normal0.0-6.0UnSalem Regional Medical CenterComment on above:Performed By: #### 97488-1 #### ANASTACIO Hodge ([id number]) [facility] ([facility]) [address] [place] [address]Uwozwktygqq distribution width (RBC) [Ratio]12.8 %Normal 11.5-14.5UnSalem Regional Medical CenterComment on above:Performed By: #### 14454-3 #### ANASTACIO Hodge ([id number]) [facility] ([facility]) [address] [place] [address]Jgpudlumxm (Bld) [Volume fraction]34.8 %Low41.0-52.0 [facility] HospitalComment on above:Performed By: #### 73487-4 #### ANASTACIO Hodge ([id number]) [facility] ([facility]) [address] [place] [address]Kttqbhxamk (Bld) [Mass/Vol]11.8 g/dLLow13.5-17.5UnSalem Regional Medical CenterComment on above:Performed By: #### 47315-3 #### ANASTACIO Hodge ([id number]) [facility] ([facility]) [address] [place] [address]Mcdcmqsd granulocytes (Bld) [#/Vol]0.10 x10*3/uLNormal 0.00-0.70UnSalem Regional Medical CenterComment on above:Performed By: #### 77645-4 #### ANASTACIO Hodge ([id number]) [facility] ([facility]) [address] [place] [address]Dsacavzz granulocytes/100 WBC (Bld)0.8 %Normal0.0-0.9 [facility] HospitalComment on above:Result Comment: Immature Granulocyte Count (IG) includes promyelocytes, myelocytes and metamyelocytes but does not include bands. Percent differential counts (%) should be interpreted in the context of the absolute cell counts (cells/UL). Performed By: #### 98850-1 #### ANASTACIO Hodge ([id number]) [facility] ([facility]) [address] [place], [place] [address]Uhklnrqxyij (Bld) [#/Vol]1.93 x10*3/uLNormal1.20-4.80 [facility] HospitalComment on above:Performed By: #### 36825-9 #### ANASTACIO Hodge ([id number]) [facility] ([facility]) [address] [place], [place] [address]Sozupoiwgsl/100 WBC (Bld)14.7 %Iryuia83.0-44.0[facility] HospitalComment on above:Performed By: #### 41308-9 #### ANASTACIO Hodge (46309) [facility] ([facility]) [address] [place], [place] [address]JZM (RBC) [Entitic mass]27.8 ikCxaufr00.0-34.0UnSalem Regional Medical CenterComment on above:Performed By: #### 73637-7 #### ANASTACIO Hodge ([id number]) [facility] ([facility]) [address] [place], [place] [address]QOVL (RBC) [Mass/Vol]33.9 g/gQAueskk28.0-36.0UnSalem Regional Medical CenterComment on above:Performed By: #### 71766-5 #### ANASTACIO Hodge ([id number]) [facility] ([facility]) [address] [place], [place] [address]MTF (RBC) [Entitic vol]82 uSInwhaj13-288VrvupinsdpSalem Regional Medical CenterComment on above:Performed By: #### 51232-0 #### ANASTACIO Hodge ([id number]) [facility] ([facility]) [address] [place], [place] [address]Rfrwstmcd (Bld) [#/Vol]1.09 x10*3/uLHigh0.10-1.00UnSalem Regional Medical CenterComment on above:Performed By: #### 27049-9 #### ANASTACIO Hodge ([id number]) [facility] ([facility]) [address] [place] [address]Bhzoemych/100 WBC (Bld)8.3 %Normal2.0-10.0[facility] HospitalComment on above:Performed By: #### 32940-4 #### ANASTACIO Hodge ([id number]) [facility] ([facility]) [address] [place] [address]Gcmqpdmyjqy (Bld) [#/Vol]9.66 x10*3/uLHigh1.20-7.70UnSalem Regional Medical CenterComment on above:Result Comment: Percent differential counts (%) should be interpreted in the context of the absolute cell counts (cells/uL).Performed By: #### 82158-9 #### ANASTACIO Hodge ([id number]) [facility] ([facility]) [address] [place] [address]Axbpyuoydym/100 WBC (Bld)73.7 %Nwnmsk63.0-80.0[facility] HospitalComment on above:Performed By: #### 83733-0 #### ANASTACIO Hodge ([id number]) [facility] ([facility]) [address] [place] [address]Ihsjxmjau RBC/100 WBC (Bld) [Ratio]0.0 /100 WBCsNormal0.0-0.0 [facility] HospitalComment on above:Performed By: #### 91357-9 #### ANASTACIO Hodge ([id number]) [facility] ([facility]) [address] [place] [address]Ndukjszlw (Bld) [#/Vol]296 x10*3/yFBxuenl763-062OprhvpeqnlSalem Regional Medical CenterComment on above:Performed By: #### 35510-6 #### ANASTACIO Hodge ([id number]) [facility] ([facility]) [address] [place] [address]TDS (Bld) [#/Vol]4.25 x10*6/uLLow4.50-5.90[facility] HospitalComment on above:Performed By: #### 56986-4 #### ANASTACIO Hodge ([id number]) [facility] ([facility]) [address] [place] [address]PSN (Bld) [#/Vol]13.1 x10*3/uLHigh4.4-11.3[facility] HospitalComment on above:Performed By: #### 95231-3 #### ANASTACIO Hodge ([id number]) [facility] ([facility]) [address] [place] [address]Raxoqmgrcov 51-66-1469Iejahetel [Mass/Vol]1.81 mg/dL1.60 - 2.40 mg/dLDetwiler Memorial HospitalMagnesium [Mass/Vol]1.81 mg/dLNormal 1.60-2.40[facility] HospitalComment on above:Performed By: #### 17575-0 #### ANASTACIO Hodge ([id number]) [facility] ([facility]) [address] [place] [address]Opqwsagvk [Mass/Vol]on 74-56-8817Fgdcjywsanavcu and review of laboratory resultsNormalUniMemorial Health System Marietta Memorial HospitalNo Panel Informationon 61-93-0448AvrwkuysmeDetwiler Memorial HospitalECG 12-LEADon 47-91-0761UBR 12-LEAD Ventricular Rate 104 Atrial Rate 104 P-R Interval 154 QRS Duration 94 Q-T Interval 346 QTC Calculation(Bazett) 454 P Peshtigo 43 R Peshtigo 9 T Peshtigo 27 QRS Count 17 Q Onset 216 P Onset 139 P Offset 196 T Offset 389 QTC Fredericia 415 Diagnosis Sinus tachycardia Minimal voltage criteria for LVH, may be normal variant Borderline ECG No previous ECGs available Confirmed by Dustin Lyman ([id number]) on 12/14/2023 2:58:33 PMNChildren's MinnesotaXR ABDOMEN 1 VIEWon 66-84-4194DO ABDOMEN 1 VIEWInterpreted By: Victoriano Warren and Liller Gregory STUDY: XR ABDOMEN 1 VIEW; 12/11/2023 12:18 pm INDICATION: Signs/Symptoms:Confirm NG tube placement. COMPARISON: 12/10/2023 ACCESSION NUMBER(S): [id number] ORDERING CLINICIAN: MARY GRACE TAVAREZVED FINDINGS: Interval [...] Benny Matamoros. The study was interpreted at [facility] in [facility]. MACRO: none Signed by: Victoriano Warren 12/11/2023 4:14 PM Dictation workstation: [id number] Behavioral HospitalXR Abdomen Single viewon . Enteric tube projects over the expected location of the gastric antrum/proximal duodenum. 2. Similar gaseous distention of multiple loops of small bowel when compared to prior exam. I personally reviewed the images/study and I agree with the findings as stated above by resident physician, Dr. Benny Matamoros. The study was interpreted at [facility] in [facility]. MACRO: none Signed by: Victoriano Warren 12/11/2023 4:14 PM Dictation workstation: [id number] MMODALInterpreted By: Victoriano Warren and Liller Gregory STUDY: XR ABDOMEN 1 VIEW; 12/11/2023 12:18 pm INDICATION: Signs/Symptoms:Confirm NG tube placement. COMPARISON: 12/10/2023 ACCESSION NUMBER(S): [id number] ORDERING CLINICIAN: MARY GRACE CAI FINDINGS: Interval placement of enteric tube which projects over the expected location of the gastric antrum/proximal duodenum. Similar gaseous distention of multiple loops of bowel when compared to prior exam measuring up to 4.7 cm. No evidence to suggest pneumoperitoneum. Visualized lungs are clear. No acute osseous injury. MMODALGiLaci zimmerman MD - 12/11/2023 Interpreted By: Victoriano Warren and Liller Gregory STUDY: XR ABDOMEN 1 VIEW; 12/11/2023 12:18 pm INDICATION: Signs/Symptoms:Confirm NG tube placement. COMPARISON: 12/10/2023 ACCESSION NUMBER(S): [id number] ORDERING CLINICIAN: MARY GRACE CAI FINDINGS: Interval [...] Benny Matamoros. The study was interpreted at [facility] in [facility]. MACRO: none Signed by: Victoriano Warren 12/11/2023 4:14 PM Dictation workstation: [id number] [facility] Work Phone: [facility] Work Phone: Radiology Study observation (narrative)[facility] Work Phone: [phone]. Gaseous distention of multiple loops of bowel throughout the abdomen with overall nonobstructive bowel gas pattern. Findings compatible with postoperative ileus. 2. Postsurgical changes as described above. I personally reviewed the images/study and I agree with Leti Dumont DO's (residential living assistant) findings as stated. This study was interpreted at [place], [place]. MACRO: None Signed by: Victoriano Warren 12/11/2023 11:13 AM Dictation workstation: [id number] MMODALInterpreted By: Victoriano Warren and Stephens Katherine STUDY: XR ABDOMEN 1 VIEW; 12/10/2023 11:52 pm INDICATION: Signs/Symptoms:c/f postop ileus. COMPARISON: Pelvic radiographs 12/08/2023 ACCESSION NUMBER(S): [id number] ORDERING CLINICIAN: ROXANNA BERMAN FINDINGS: Postsurgical changes [...] structures demonstrate no acute bony changes. Laci Toussaint MD - 12/11/2023 Interpreted By: Victoriano Warren and Stephens Katherine STUDY: XR ABDOMEN 1 VIEW; 12/10/2023 11:52 pm INDICATION: Signs/Symptoms:c/f postop ileus. COMPARISON: Pelvic radiographs 12/08/2023 ACCESSION NUMBER(S): [id number] ORDERING CLINICIAN: ROXANNA BERMAN FINDINGS: Postsurgical changes [...] and I agree with Leti Dumont DO's (residential living assistant) findings as stated. This study was interpreted at [place], [place]. MACRO: None Signed by: Victoriano Warren 12/11/2023 11:13 AM Dictation workstation: [id number] [facility] Work Phone: XR Abdomen Single viewOrdered By: Laci Warren on 70-36-1383GerzgydqokCleveland Clinic Euclid Hospital Work Phone: Basic metabolic 2000 panelon 68-50-4289Lsxzz gap [Moles/Vol]14 mmol/L10 - 20 mmol/[facility] HospitalCalcium [Mass/Vol]9.3 mg/dL8.6 - 10.6 mg/dLDetwiler Memorial HospitalChloride [Moles/Vol]95 mmol/LLow98 - 107 mmol/[facility] HospitalCO2 [Moles/Vol]31 mmol/L21 - 32 mmol/[facility] HospitalCreatinine [Mass/Vol]1.01 mg/dL0.50 - 1.30 mg/dLUnCleveland Clinic Euclid HospitaleGFR- PINMercy Health St. Elizabeth Youngstown HospitalComment on above:Calculations of estimated GFR are performed using the 2020 CKD-EPI Study Refit equation without therace variable for the IDMS-Traceable creatinine methods. https://jasn.asnjournals.org/content//ASN.8702214145 Glucose [Mass/Vol]109 mg/wZLpqs21 - 99 mg/dLUnCleveland Clinic Euclid Hospital Interpretation and review of laboratory resultsAbnormalUniMemorial Health System Marietta Memorial HospitalPotassium [Moles/Vol]4.2 mmol/L3.5 - 5.3 mmol/[facility] HospitalSodium [Moles/Vol]136 mmol/L136 - 145 mmol/[facility] HospitalUrea nitrogen [Mass/Vol]12 mg/dL6 - 23 mg/dLUnCleveland Clinic Euclid HospitalUnCleveland Clinic Euclid HospitalAnion gap [Moles/Vol]14 mmol/LNormal 10-20UnSalem Regional Medical CenterComment on above:Performed By: #### 11714-8 #### ANASTACIO Hodge ([id number]) [facility] ([facility]) [address] [place], [place] [address]Ktjqasu [Mass/Vol]9.3 mg/dLNormal8.6-10.6UnSalem Regional Medical CenterComment on above:Performed By: #### 14902-0 #### ANASTACIO Hodge ([id number]) [facility] ([facility]) [address] [place], [place] [address]Cxrfilyu [Moles/Vol]95 mmol/KFmc92-715XoxsissazvSalem Regional Medical CenterComment on above:Performed By: #### 58307-1 #### ANASTACIO Hodge ([id number]) [facility] ([facility]) [address] [place], [place] [address]HI3 [Moles/Vol]31 mmol/TWfcxqb18-24BeigxojoprHenry County HospitalComment on above:Performed By: #### 47059-5 #### ANASTACIO Hodge ([id number]) [facility] ([facility]) [address] [place] [address]Ugqaekxtoc [Mass/Vol]1.01 mg/dLNormal0.50-1.30UnSalem Regional Medical CenterComment on above:Performed By: #### 25605-0 #### ANASTACIO Hodge ([id number]) [facility] ([facility]) [address] [place] [address]OKU/1.73 sq M.predicted MDRD (S/P/Bld) [Vol rate/Area] mL/min/{1.73_m2}Normal>60UnSalem Regional Medical CenterComment on above:Result Comment: Calculations of estimated GFR are performed using the 2020 CKD-EPI Study Refit equation without the race variable for the IDMS-Traceable creatinine methods. https://jasn.asnjournals.org/content//ASN.8717845970Dgabxhugq By: #### 69515-2 #### ANASTACIO Hodge ([id number]) [facility] ([facility]) [address] [place], [place] [address]Prcvhma [Mass/Vol]109 mg/zCSlxc70-37ZeiozmrpliSalem Regional Medical CenterComment on above:Performed By: #### 40044-8 #### ANASTACIO Hodge ([id number]) [facility] ([facility]) [address] [place] [address]Aobcoluro [Moles/Vol]4.2 mmol/LNormal3.5-5.3Henry County HospitalComment on above:Performed By: #### 93496-2 #### ANASTACIO Hodge ([id number]) [facility] ([facility]) [address] [place], [place] [address]Yjjdmq [Moles/Vol]136 mmol/XXrrrqm390-665WrkcrcqcgqHenry County HospitalComment on above:Performed By: #### 65494-4 #### ANASTACIO Hodge (46848) [facility] ([facility]) [address] [place], [place] [address]Aklx nitrogen [Mass/Vol]12 mg/dLNormal6-23Henry County HospitalComment on above:Performed By: #### 06850-4 #### ANASTACIO Hodge ([id number]) [facility] ([facility]) [address] [place], [place] [address]OIF W Auto Differential panel (Bld)on 48-09-1593Gegilhsek (Bld) [#/Vol]0.08 10*3/[facility] Hospital LimaBasophils/100 WBC (Bld)0.7 %0.0 - 2.0 %[facility] HospitalEosinophils (Bld) [#/Vol] 0.17 10*3/[facility] Hospital LimaEosinophils/100 WBC (Bld)1.4 %0.0 - 6.0 %[facility] HospitalErythrocyte distribution width (RBC) [Ratio]13.1 %11.5 - 14.5 %[facility] HospitalHematocrit (Bld) [Volume fraction]40.2 %Low41.0 - 52.0 %[facility] Hemoglobin (Bld) [Mass/Vol]12.9 g/dLLow13.5 - 17.5 g/dLDetwiler Memorial HospitalImharry s. tr[facility] hospital granulocytes (Bld) [#/Vol]0.11 10*3/[facility] Hospital LimaImharry s. truman [facility] veterans' hospital granulocytes/100 WBC (Bld)0.9 %0.0 - 0.9 %[facility] HospitalCommymichigan medical center west branch on above:Immature Granulocyte Count (IG) includes promyelocytes, myelocytes and metamyelocytes but does not include bands. Percent differential counts (%) should be interpreted in the context of the absolute c ell counts (cells/UL).Interpretation and review of laboratory resultsAbnormal [facility] HospitalLymphocytes (Bld) [#/Vol]1.82 10*3/uLDetwiler Memorial HospitalLymphocytes/100 WBC (Bld)15.4 %13.0 - 44.0 %[facility] Memorial HospitalH (RBC) [Entitic mass]27.6 pg26.0 - 34.0 pgUnAvita Health SystemHC (RBC) [Mass/Vol]32.1 g/dL32.0 - 36.0 g/dLFayette County Memorial HospitalV (RBC) [Entitic vol]86 fL80 - 100 fLUniMemorial Health System Marietta Memorial HospitalMonocytes (Bld) [#/Vol]0.86 10*3/[facility] Hospital LimaMonocytes/100 WBC (Bld)7.3 %2.0 - 10.0 %[facility] HospitalNeutrophils (Bld) [#/Vol]8.78 10*3/uLSouthern [place] Medical CenterComment on above:Percent differential counts (%) should be interpreted in the context of the absolute cell counts (cells/uL).Neutrophils/100 WBC (Bld) 74.3 %40.0 - 80.0 %[facility] HospitalNucleated RBC/100 WBC (Bld) [Ratio]0.0 %[facility] HospitalPlatelets (Bld) [#/Vol]286 10*3/uL [facility]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 [facility] CarePfnvbpvmnm15-65-8760 15:58-0400Systolic blood zbwpkijz289 mm[Hg]Tom Georges [employer] Work Phone: [facility] CareHuzdkxqrjw83-30-9435 09:59-0400Body dnavpi248.88 cmChantal Mart MD Work Phone: [facility]07-17-2025 09:59-0400 Body mass index (BMI) [Ratio]33.7 kg/u5ArsmdmChantal Mart MD Work Phone: [phone]07-17-2025 09:59-0400 Body .94 kgChantal Mart MD Work Phone: [phone]32[facility]07-17-2025 09:59-0400 Diastolic blood ifmbwsvo78 mm[Hg]Chantal Mart MD Work Phone: [phone]07-17-2025 09:59-0400 Heart rate67 /minChantal Mart MD Work Phone: [phone]07-17-2025 09:59-0400 Systolic blood wbivnsbz831 mm[Hg]Chantal Mart MD Work Phone: [phone]07-10-2025 15:14-0400 Body ypdkpx187.9 cmPaul Biedenbach DO Work Phone: [facility] CareGwvkmmsbrw52-77-7023 15:14-0400Body mass index (BMI) [Ratio]31.19 kg/m2Paul Biedenbach DO Work Phone: [facility] CareExlewxnhai61-49-9347 15:14-0400Body .33 kgPaul Biedenbach DO Work Phone: [facility] CareTojxgxeoxv70-16-1362 13:43-0400Body bsvuws554.9 cmPaul Biedenbach DO Work Phone: [facility] CareNhtcpiwind28-82-1762 13:43-0400Body mass index (BMI) [Ratio]31.19 kg/m2Paul Biedenbach DO Work Phone: [phone]-[facility] CareLdeplwkhoj35-74-8859 13:43-0400Body quvlra791.33 kgPaul Biedenbach DO Work Phone: [phone])[facility] CareAkggrwlgru89-47-8888 13:23-0400Body rrccre821.88 cmSum[facility]05-22-2025 13:23-0400Body mass index (BMI) [Ratio]31.4 kg/b2FphdxsrmbSumma Health [facility]05-22-2025 13:23-0400Body ducstj813 kgSumma [facility]05-22-2025 13:23-0400Diastolic blood vodfcrve63 mm[Hg][facility]05-22-2025 13:23-0400 Heart rate91 /minSumma Health Akron Campus05-22-2025 13:23-0400Systolic blood qnopwsdd176 mm[Hg][facility]05-06-2025 13:37-0400 Body igiwct002.9 cmPaul Biedenbach DO Work Phone: [phone] [place], [place] 5810505-06-2025 13:37-0400Body mass index (BMI) [Ratio]31.19 kg/m2Paul Biedenbach DO Work Phone: [phone]05-06-2025 13:37-0400Body gjeywh118.33 kgPaul Biedenbach DO Work Phone: [phone])[address] [place], [place] 5810504-25-2025 08:27-0400Body .88 cmSum[facility]04-25-2025 08:27-0400Body mass index (BMI) [Ratio]32.1 kg/n5ClotjjtjtSumma Health [facility] Campus04-25-2025 08:27-0400Body .5 kgSumma Health [facility]04-25-2025 08:27-0400Diastolic blood mm[Hg][facility]04-25-2025 08:27-0400 Heart rate87 /[facility]04-25-2025 08:27-0400Systolic blood rsdxwbip459 mm[Hg][facility]04-08-2025 14:01-0400 Body jcovzr309.9 cmPaul Biedenbach DO Work Phone: [facility] CareGnochincfw97-81-3319 14:01-0400Body mass index (BMI) [Ratio]31.46 kg/m2Paul Biedenbach DO Work Phone: [facility] CareJcgjtakvbj43-27-3982 14:01-0400Body .23 kgPaul Biedenbach DO Work Phone: [facility] CareWtzendpejm74-67-7845 08:25-0400Body qgnmsi374.88 cmSum[facility]03-14-2025 08:25-0400Body mass index (BMI) [Ratio]31.4 kg/g7AvzskemmrSumma Health [facility]ron Campus03-14-2025 08:25-0400Body buznjiysckc62.2 [degF][facility]03-14-2025 08:25-0400Body kvestm209.23 kgSumma Health [facility]03-14-2025 08:25-0400Diastolic blood rxypiegd87 mm[Hg][facility]03-14-2025 08:25-0400 Heart rate76 /[facility]03-14-2025 08:25-0400Systolic blood tdoapuzb097 mm[Hg][facility]02-19-2025 10:56-0500 Body tcwypg214.88 cmChantal Mart MD Work Phone: [facility]02-19-2025 10:56-0500 Body mass index (BMI) [Ratio]32.3 kg/h8AomoasChantal Mart MD Work Phone: [facility]02-19-2025 10:56-0500 Body yatdqarjzfd46.9 [degF]Chantal Mart MD Work Phone: [facility]02-19-2025 10:56-0500 Body edklqn480.95 kgChantal Mart MD Work Phone: [phone]02-19-2025 10:56-0500 Diastolic blood ikwkxobg47 mm[Hg]Chantal Mart MD Work Phone: [phone])[address] [place], [place] 6104402-19-2025 10:56-0500 Heart rate76 /Desi Mart MD Work Phone: [phone] [place], [place] 6104402-19-2025 10:56-0500 SaO2% (BldA) [Mass fraction]97 %Chantal Mart MD Work Phone: [phone])[address] [place], [place] 6104402-19-2025 10:56-0500 Systolic blood uognlrfv435 mm[Hg]Chantal Mart MD Work Phone: 1(152)[address] [place], [place] 6104401-27-2025 15:05-0500 Body tgnepz008.88 cmChantal Mart MD Work Phone: [phone])[address] [place], [place] 6104401-27-2025 15:05-0500 Body mass index (BMI) [Ratio]32 kg/u7BaxupuChantal Mart MD Work Phone: 1(916)[address] [place], [place] 610[address]01-27-2025 15:05-0500 Body mkurcs124.04 kgChantal Mart MD Work Phone: [phone])[address] [place], [place] 610[address]01-27-2025 15:05-0500 Diastolic blood rztopzva73 mm[Hg]Chantal Mart MD Work Phone: 1(759)[address] [place], [place] 610[address]01-27-2025 15:05-0500 Heart rate90 /Desi Mart MD Work Phone: 1(959)[address] [place], [place] 6104401-27-2025 15:05-0500 Systolic blood hhifylet493 mm[Hg]Chantal Mart MD Work Phone: 1(822)[address] [place], [place] 6104412-04-2024 11:53-0500 Body mobsap443.88 cmChantal Mart MD Work Phone: [phone])[address] [place], [place] 610[address]12-04-2024 11:53-0500 Body mass index (BMI) [Ratio]33 kg/j4Ypcwok Mart MD Work Phone: [phone])[address]12-04-2024 11:53-0500 Body cjierb063.67 kgChantal Mart MD Work Phone: [phone])[address]12-04-2024 11:53-0500 Diastolic blood dbsvocmm60 mm[Hg]Chantal Mart MD Work Phone: 1(729)[address]12-04-2024 11:53-0500 Heart rate83 /Desi Mart MD Work Phone: 1(263)[address]12-04-2024 11:53-0500 Systolic blood ufacfunl104 mm[Hg]Chantal Mart MD Work Phone: [phone])[address]11-25-2024 14:38-0500 Body wczvad145.88 cmChantal Mart MD Work Phone: [phone])[address]11-25-2024 14:38-0500 Body mass index (BMI) [Ratio]33.2 kg/c7UatzjuChantal Mart MD Work Phone: [phone])[address]11-25-2024 14:38-0500 Body mdgjic971.13 kgChantal Mart MD Work Phone: 1(032)[address]11-25-2024 14:38-0500 Diastolic blood oixhfsou23 mm[Hg]Chantal Mart MD Work Phone: [phone])[address]11-25-2024 14:38-0500 Heart rate89 /Desi Mart MD Work Phone: 1(781)563-[address] [place], [place] 3387211-25-2024 14:38-0500 Systolic blood mm[Hg]Chantal Mart MD Work Phone: [phone])[address]05-15-2024 08:13-0400 Body cqgupwxwqzk62.5 [degF]Adam Navarro MD Work Phone: [facility]05-15-2024 08:13-0400 Diastolic blood lziaoaeu26 mm[Hg]Adam Navarro MD Work Phone: 1(216)832-[address] [place], [place] [address]5-15-2024 08:13-0400 Heart rate85 /Aida Navarro MD Work Phone: 1(216)[address] [place], [place] 2212505-15-2024 08:13-0400 Respiratory rate16 /Aida Navarro MD Work Phone: 1(216)[address] [place], [place] 2212505-15-2024 08:13-0400 SaO2% (BldA) [Mass fraction]97 %Adam Navarro MD Work Phone: 1(216)[address]05-15-2024 08:13-0400 Systolic blood hmluyuuj621 mm[Hg]Adam Navarro MD Work Phone: 1(216)[address]05-05-2024 08:33-0400 Body koldaf157.3 cmAdam Navarro MD Work Phone: 1(216)[address] [place], [place] 2212505-05-2024 08:33-0400 Body mass index (BMI) [Ratio]38.76 kg/a3SeygitAdam Navarro MD Work Phone: 1(216)[address] [place], [place] 2212505-05-2024 08:33-0400 Body bydgyh081 kgAdam Navarro MD Work Phone: [phone])[address] [place], [place] 2212504-24-2024 13:53-0400 Body .3 cmAdam Navarro MD Work Phone: 1(216)[address]04-24-2024 13:53-0400 Body mass index (BMI) [Ratio]37.66 kg/o3EziialAdam Navarro MD Work Phone: 1(148)[address]04-24-2024 13:53-0400 Body okktyu252.47 kgAdam Navarro MD Work Phone: 1(515)1-[address] [place], [place] [address]2-12-2024 11:45-0500 Body yzgmqd255.88 cmChantal Mart Other [employer] Other 02-12-2024 11:45-0500Body mass index (BMI) [Ratio] 37.29 kg/s7LeavudChantal Mart Other [employer] Other 02-12-2024 11:45-0500Body smyqsj447.74 kgChantal Mart Other [employer] Other 02-12-2024 11:45-0500Diastolic blood ykpowtgo78 mm[Hg] Chantal Mart Other [employer] Other 02-12-2024 11:45-0500Systolic blood ecwfhjri982 mm[Hg] Chantal Mart Other [employer] Other 12-19-2023 10:45-0500Body .88 cmChantal Mart Other [employer] Other 12-19-2023 10:45-0500Body mass index (BMI) [Ratio] 37.24 kg/o3JfbfzrChantal Mart Other [employer] Other 12-19-2023 10:45-0500Body oohdng588.56 kgChantal Mart Other [employer] Other 12-19-2023 10:45-0500Diastolic blood itehncze08 mm[Hg] Chantal Mart Other [employer] Other 12-19-2023 10:45-0500Systolic blood fhmafowh921 mm[Hg] Chantal Mart Other [employer] Other 10-27-2023 15:00-0400Body mrouxs939.88 cmChantal Mart Other [employer] Other 10-27-2023 15:00-0400Body mass index (BMI) [Ratio] 37.81 kg/m0IndtivChantal Mart Other [employer] Other 10-27-2023 15:00-0400Body ogdjnfxvkre71 [degF]Chantal Mart Other [employer] Other 10-27-2023 15:00-0400Body fmcywa735.46 kgTamararigoberto Mart Other [employer] Other 10-27-2023 15:00-0400Diastolic blood kvqfkoaj24 mm[Hg] Chantal Mart Other [employer] Other 10-27-2023 15:00-9242WxE1% (BldA) [Mass fraction]98 % Chantal Mart Other [employer] Other 10-27-2023 15:00-0400Systolic blood vcvlzicx003 mm[Hg] Chantal Mart Other [employer] Other 07-07-2023 10:30-0400Body ncgizs201.88 cmChantal Mart Other [employer] Other 07-07-2023 10:30-0400Body mass index (BMI) [Ratio] 37.16 kg/g5GzxjyfChantal Mart Other [employer] Other 07-07-2023 10:30-0400Body ldmrar885.29 kgChantal Mart Other [employer] Other 07-07-2023 10:30-0400Diastolic blood oyegeoks19 mm[Hg] Chantal Barron Other [employer] Other 07-07-2023 10:30-0400Systolic blood cyholpcg495 mm[Hg] Chantal Barron Other [employer] Other 03-28-2023 16:15-0400Body .88 cmBenjamin Ball Other [facility] Other 03-28-2023 16:15-0400Body mass index (BMI) [Ratio] 37.05 kg/o8Derufsyt Ball Other [facility] Other 03-28-2023 16:15-0400Body lufizi131.92 kgBenjamin Ball Other [facility] Other 03-28-2023 16:15-0400Diastolic blood fgwwpros16 mm[Hg] Austin Ball Other [employer] Other 03-28-2023 16:15-0400Respiratory rate16 /minBenjamin Ball Other [facility] Other 03-28-2023 16:15-0400Systolic blood sizecluw685 mm[Hg] Austin Ball Other [facility] Other 03-22-2023 11:30-0400Body .88 cmChantal Mart Other [facility] Other 03-22-2023 11:30-0400Body mass index (BMI) [Ratio] 37.29 kg/i7IpnpdcChantal Mart Other [facility] Other 03-22-2023 11:30-0400Body .74 kgTamararigoberto Barron Other [facility] Other 03-22-2023 11:30-0400Diastolic blood kbbheuys47 mm[Hg] Chantal Mart Other [facility]. Other 03-22-2023 11:30-9752JqV7% (BldA) [Mass fraction]97 % Chantal Mart Other noDaVincian [facility]. Other 03-22-2023 11:30-0400Systolic blood zkkogeds434 mm[Hg] Chantal Mart Other [employer] Other 07-21-2021 14:30-0400Diastolic blood bidxzgum34 mm[Hg] [place] [employer] Work Phone: 1(814) 750-352807-21-2021 14:30-0400Heart rate79 /minLorain 1[facility] Work Phone: 1(609) 622-454507-21-2021 14:30-0400Respiratory rate16 /minLorain 1 [facility] Work Phone: 1(393) 731-853207-21-2021 14:30-8033AsH8% (BldA) [Mass fraction]97 % [place] [facility] Work Phone: 1(183) 820-145207-21-2021 14:30-0400Systolic blood ohmazxcv844 mm[Hg] [place] [facility] Work Phone: 1(791) 158-797407-21-2021 10:43-0400Body dyruxp015.3 cmLorain 1[facility] Work Phone: 1(274) 843-687507-21-2021 10:43-0400Body mass index (BMI) [Ratio] 36.54 kg/d3Fnqgjv [employer] Work Phone: 1(368) 701-770007-21-2021 10:43-0400Body cfkpuo281.84 kgLorain 1[facility] Work Phone: Encounters Encounter DateEncounter TypeCare ProviderFacilityStart: 06-10-2025 End: 80-92-2210ejtsginjfdGnoltsmGiorgio Clark MDFacility:TERRY Killian Start: 03-11-2025 End: 67-06-9555Aiijin outpatient visit 25 minutesTom Zarate [employer] Work Phone: [facility]oms [facility] CareComment on above:Acute cough (Primary Dx); Chest congestion; Mild intermittent asthmatic bronchitis with acute exacerbation (HCC)Start: 03-11-2025 End: 99-82-0801fbhizmkkohHVMLZHG N AUSTINNot AvailableStart: 02-21-2025 End: 30-41-8330jlmseewcffJifxht E Braun MD Work Phone: [facility] Work Phone: Start: 02-21-2025 End: 55-26-2229Cgqzros encounter procedureChantal Mart [facility]DLicking [facility] Work Phone: Start: 02-14-2025 End: 46-60-5846Gycmmk outpatient visit 25 minutesPaul S Biedenbach DO Work Phone: [facility] NORWALKComment on above:History of facial trauma (Primary Dx); Nasal septal deviation; Nasal valve collapse; Chronic sinusitis, unspecified locationStart: 02-14-2025 End: 58-05-3553tevlaktvgrTXAK S BIEDENBACHNot AvailableStart: 02-14-2025 End: 93-21-3690Xahjuq flowsheetPaul S Biedenbach DO Work Phone: [facility] NORWALKStart: 02-14-2025 End: 66-70-7032Azvnoi flowsheetPaul S Biedenbach DO Work Phone: [facility] NORWALKStart: 01-03-2025 End: 19-20-3476Iwawtl flowsheetPaul S Biedenbach DO Work Phone: [facility] NORWALKStart: 01-03-2025 End: 52-91-1452Aafbms flowsheetPaul S Biedenbach DO Work Phone: [facility] NORWALKStart: 01-03-2025 End: 20-99-3636Beqail outpatient visit 25 minutesPaul S Biedenbach DO Work Phone: [facility] NORGREGKComment on above:Chronic sinusitis, unspecified location (Primary Dx); Laryngopharyngeal reflux (LPR); Hypertrophy of nasal turbinates; History of facial trauma; Nasal septal deviationStart: 01-03-2025 End: 25-23-6920gwmdcwfmeqVWWC S BIEDENBACHNot AvailableStart: 12-27-2024 End: 72-70-9793ivxgljkvzsJqymumkkhGuernsey Memorial Hospital Work Phone: Start: 12-27-2024 End: 51-37-4503Ojykrut encounter Rehabilitation [facility] Work Phone: Start: 12-11-2024 End: 96-22-0245Yeecaf flowsheetPaul S Biedenbach DO Work Phone: [facility] NORWALKStart: 12-11-2024 End: 83-14-1885Aylncz flowsheetPaul S Biedenbach DO Work Phone: [facility] NORWALKStart: 12-11-2024 End: 01-66-8005Crhwqu outpatient visit 25 minutesPaul S Biedenbach DO Work Phone: [facility] ENT NORWALKComment on above:Nasal valve collapse (Primary Dx); Chronic sinusitis, unspecified location; Nasal polyp; Hypertrophy of nasal turbinatesStart: 12-11-2024 End: 40-57-0295lksbzrtpbiYYLO S BIEDENBACHNot AvailableStart: 11-30-2024 End: 59-89-9990uyvntznbiuGPTC S BIEDENBACHNot AvailableStart: 11-30-2024 End: 14-88-3893znfmwfwpujDxzilwmxhGuernsey Memorial Hospital Work Phone: Start: 11-30-2024 End: 83-50-3740Zhnudrpwb for general adult medical examination without abnormal findingsLicking Memorial Hospitaltart: 11-30-2024 End: 72-33-5481Gepjzhs encounter procedureSampson [facility] Work Phone: Start: 11-30-2024 End: 61-81-2269Diwsfyj encounter Pili Mart MDLicking Memorial Hospitaltart: 11-21-2024 End: 95-86-2890Qkbzbn outpatient visit 25 minutesAdam Navarro MD Work Phone: [facility] CenterComment on above: Closed fracture dislocation of pelvis with routine healing (Primary Dx)Start: 11-21-2024 End: 38-48-9158Kdvlliyxaa hospital visit by physicianyessy Muniz5f X-Ray 2[facility] BolwellComment on above:Pelvic painStart: 11-21-2024 End: 30-37-6488qffpbffmbiJCDOLK K [facility] Hospitaltart: 11-13-2024 End: 61-15-4950asttyuavzgBCQY S BIEDENBACHNot AvailableStart: 11-13-2024 End: 92-10-9920Vgkase flowsheetPaul S Biedenbach DO Work Phone: [facility] NORWALKStart: 11-13-2024 End: 88-12-0039Hzsuga flowsheetPaul S Biedenbach DO Work Phone: [facility] NORWALKStart: 11-13-2024 End: 79-46-5188Urbgmr outpatient new 45 minutesPaul S Biedenbach DO Work Phone: [facility] NORWALKComment on above:History of facial trauma (Primary Dx); Chronic sinusitis, unspecified location; Nasal polyp; Nasal septal deviation; Allergic rhinitis, unspecified seasonality, unspecified triggerStart: 10-19-2024 End: 53-65-7357xhabykmkihXrdclgmcgGuernsey Memorial Hospital Work Phone: Start: 10-19-2024 End: 81-67-0644Crtloos encounter procedureFirsam [facility] Work Phone: Start: 09-26-2024 End: 95-83-6762cuzjogwbsvTfjrrd E Braun MD Work Phone: [facility] Work Phone: Start: 09-26-2024 End: 92-63-1993Ukbpmgv encounter procedureChantal Mart MD Work Phone: [facility] Work Phone: Start: 09-04-2024 End: 56-57-4890ctwrieefgeATLTESBGDetwiler Memorial Hospitaltart: 09-03-2024 End: 81-92-0415Blsqyir encounter procedureChantal Mart MD Work Phone: [facility] Work Phone: Start: 77-87-0620Kbb-patient / Non-visitChantal Mart MD Work Phone: [facility] Work Phone: Start: 28-22-0076Pox-patient / Non-visitChantal Mart MD Work Phone: [facility] Work Phone: Start: 08-07-2024 End: 53-55-2176ouhiophnbqEBFYVDMMDetwiler Memorial Hospitaltart: 07-16-2024 End: 03-86-7229gcfkmcdbtfBtfbsriGiorgio Clark MDFacility:TERRY Killian Start: 07-11-2024 End: 11-13-6260Cbdlvwh encounter procedureChantal Mart MD Work Phone: [facility] Work Phone: Start: 94-35-9721Wos-patient / Non-visitChantal Mart MD Work Phone: [facility] Work Phone: Start: 07-09-2024 End: 36-25-7592Ifdpqau encounter procedureChantal Mart MD Work Phone: [facility] Work Phone: Start: 07-09-2024 End: 20-19-2815ivrmhggtolMblpsv E BraunFacility:[facility] Hospitaltart: 07-02-2024 End: 89-27-5591Ijosthj encounter procedureChantal Mart MD Work Phone: [facility] Physician GroupLicking Memorial Hospital Work Phone: Start: 06-22-2024 End: 93-91-3009ttwzajxkehDTFCDROXDetwiler Memorial Hospitaltart: 06-22-2024 End: 34-38-1814qekhljeofhPYMUDBJUDetwiler Memorial Hospitaltart: 05-23-2024 End: 68-81-9446Ivzyrx outpatient visit 25 minutesAdam Navarro MD Work Phone: [facility] CenterComment on above: Pelvic pain (Primary Dx)Start: 05-23-2024 End: 21-72-6507Syqxyuhfqm [facility] Flavio5f X-Ray 2[facility] BolfirsthealthComment on above:Pelvic painStart: 05-23-2024 End: 52-58-0945jkkgogqitbFTXLNL K [facility] Hospitaltart: 02-29-2024 End: 77-80-1811wbkaagcxpjJJLKPE K [facility] Hospitaltart: 02-01-2024 End: 87-03-2009Ppgqxb follow up visit related to original Daryl Navarro MD Work Phone: [facility] HospitalComment on above:Pelvic pain (Primary Dx)Start: 02-01-2024 End: 17-05-8665Ulnmfmlcbu hospital visit by physicianFranklin County Memorial Hospital1200 X-Ray 2[facility] DakotasComment on above:Pelvic painStart: 02-01-2024 End: 81-78-0696whzqcvjnchSYMRILAdventHealth Murray AmbulatoryStart: 12-28-2023 End: 04-74-9963Nwpxji follow up visit related to original Daryl Navarro MD Work Phone: [facility] Lafayette CountyComment on above:Pelvic painStart: 12-28-2023 End: 64-30-5554Enqihasvmq hospital visit by physicianFranklin County Memorial Hospital1200 X-Ray 3[facility] DakotasComment on above:Pelvic painStart: 12-28-2023 End: 55-65-5655igzgmtzyttWKFJNFAdventHealth Murray AmbulatoryStart: 12-08-2023 End: 44-66-2085Dpjujsfcgk and management of inpatientAdam Navarro MD Work Phone: [facility] Darrian [place] 6Comment on above:Pelvic pain (Primary Dx); Acute postoperative painStart: 11-30-2023 End: 45-81-8528Pghxpu outpatient new 60 minutesAdam Navarro MD Work Phone: [facility] Lafayette CountyComment on above:Pelvic pain (Primary Dx)Start: 11-30-2023 End: 29-33-8550Fnitrrbmpr hospital visit by physicianFranklin County Memorial Hospital1200 X-Ray 2[facility] Central DakotasComment on above:Pelvic painStart: 11-30-2023 End: 73-48-7022sxsnerzsudDETUBPChildren's Healthcare of Atlanta Egleston AmbulatoryStart: 09-19-2023 End: 19-61-2365geexeeqorqAwewhm Braun Other [facility]emisc[facility] [employer]Sh[employer] Other Start: 46-92-7892Nzgzyg outpatient visit 15 minutes Chantal Rodriguez [facility] ClinicStart: 09-16-2023 End: 12-94-9180Zemcurxxx department patient visitKaylinn A DokkenFacility:[facility] Start: 08-17-2023 End: 93-00-4796smssswkpsvNbxsdu Mart Other noDaVincian Healthcare. Other Start: 94-15-8462Hfgevrfsb encounterMarcia Jennifer [facility] ClinicStart: 07-26-2023 End: 91-44-4787uvkhozfcyoXelyzp Mart Other noDaVincian Healthcare. Other Start: 88-55-4344Kgodfr outpatient visit 15 minutes Chantal [facility] ClinicStart: 07-18-2023 End: 62-39-5222ikofkjhhmmPpbtnu Mart Other noDaVincian Healthcare. Other Start: 01-34-1780Knricqcls encounterMarcia Jennifer [facility] Medical ClinicStart: 06-03-2023 End: 54-94-9995mgqombzemoSxbspb Mart Other noDaVincian Healthcare. Other Start: 30-28-3331Anrqne outpatient visit 15 minutes Chantal [facility] ClinicStart: 05-27-2023 End: 40-25-8922bjjasnirxrYhtdsg Mart Other noDaVincian Healthcare. Other Start: 05-85-6374Kprdcrced encounterMarcia Jennifer [facility] Medical ClinicStart: 02-11-2023 End: 83-95-1523lxgmcgztdvCuldca Mart Other noDaVincian Healthcare. Other Start: 66-84-3586Rczdcc outpatient visit 15 minutes Chantal [facility] ClinicStart: 11-46-9342Aqalyzyei encounterMarcia Jennifer [facility] ClinicStart: 12-10-2022 End: 92-63-2448lxprhoqnkrTT CHANTAL Gonzalez [employer] ClinicLumiy InstallSh[employer] Other Start: 12-02-2022(Televisit) TelevisitChantal [facility] ClinicStart: 12-02-2022 End: 12-28-7307eilxspxtlsKkmiyh Mart Other noLumiy [employer]Sh[employer] Other Start: 11-02-2022 End: 21-17-6936sskznurgxrEfgtyvvh Ball Other noLumiy InstallSh[employer] Other Start: 86-52-0719Wyhrpo outpatient visit 15 minutes Austin [facility] ClinicStart: 10-29-2022 End: 18-79-5297vdefobjdijYhlilc Mart Other noLumiy [employer]Sh[employer] Other Start: 05-70-0606Ipplgcixt encounterChantal [facility] ClinicStart: 10-27-2022 End: 04-14-8123qqwfztjrrzQlqmob Mart Other nopemiscot memorial health systems InstallSh[employer] Other Start: 53-49-7428Pepwjr outpatient visit 15 minutes Chantal [facility] ClinicStart: 09-16-2022 End: 55-23-6313micfuavhhzEG ALLYSON S PANTOJA .Facility:Z8Zwkcz: 07-06-2022 End: 54-52-5126lloioxkuqaJB CHANTAL Crawfordcility:A7Rpwym: 06-24-2022 End: 27-49-1935vvczxblpogFF ALLYSON S PANTOJA .Facility:B2Xomiz: 06-01-2022 End: 42-51-8812szjnggleglRH ALLYSON S PANTOJA .Facility:N2Hcvpr: 05-13-2022 End: 85-45-5572beqldosfaeEK ALLYSON S PANTOJA .Facility:L0Lotyx: 04-20-2022 End: 03-27-4606audinlaqvhPO ALLYSON S PANTOJA .Facility:Y1Qvyyd: 04-01-2022 End: 85-73-0703ebluhwyidkCGOM SOLIS .Facility:Y9Xttou: 03-31-2022 End: 75-92-4035akmcvxqzraER MARCIA E BRAUNFacility:P7Bgafs: 12-24-2021 End: 05-38-2862oxpzievaojLTMiranda MARTFacility:C5Inkma: 02-25-2021 End: 44-88-9464hfcfchwlmbKNHPPG [facility] Pueblotart: 02-25-2021 End: 51-66-3444Ybhxnwgagx hospital visit by Cash Shah MD Work Phone: [facility] CT ScanComment on above:Arrived Lumbar radiculopathy; Lumbar spondylosis; Bilateral low back pain with sciatica, sciatica laterality unspecified, unspecified chronicity Procedures DateProcedureProcedure DetailPerforming ClinicianStart: 19-71-1147Hsouyvszxhad myocardial perfusion stress studyChantal Mart MD Work Phone: Start: 09-67-2364KPMBQNNSQ PATIENTJOEDITH NOURSE ROGERS [facility] VETERANS HOSPITALStart: 43-59-0870ENIERHIR CERTIFICATIONJOEDITH NOURSE R[facility]ANS HOSPITALStart: 76-27-4394MZJIO DISCHARGE DIETJOEDITH NOURSE ROGERS MEM[facility]IAL VETERANS HOSPITALStart: 34-99-4564JIQLADLERH ADMINISTRATIONJOEDITH NOURSE R[facility]ETERANS HOSPITALStart: 41-89-7114QDOIQY PROVIDER (DO NOT PROMPT FOR PARAMETERS)[facility]ENTERStart: 87-67-2789ZCP DISCHARGE POTENTIALAUSTEN RIGGS CENTERStart: 82-33-9719YVK LEVEL OF CARE [facility] CENTERStart: 28-74-2805AEQ RECEIVING AGENCY STANDING ORDERSAUSTEN RIGGS CENTER Start: 70-69-3850DBR REHAB POTENTIALJOEDITH NOURSE ROGERS [facility]ET[facility]ANS HOSPITALStart: 14-54-7323WGGLI SIGNS [facility]ENTERStart: 16-73-4037Zcvdg metabolic 2000 panel - Serum or PlasmaAUSTEN RIGGS CENTERStart: 74-05-5814QPN W Auto Differential panel - BloodAUSTEN RIGGS CENTERStart: 83-21-9204Yvxiuzacy [Mass/volume] in Serum or PlasmaJOEDITH NOURSE ROGERS MEMORIAL VETERANS HOSPITALStart: 85-58-4343Vrphl metabolic panel calcium Gerda Zendejas MD Work Phone: Start: 19-44-1232Gggvz metabolic 2000 panel - Serum or PlasmaJOSHUA NAPORAStart: 46-97-7268BBG W Auto Differential panel - BloodJOSHUA NAPORAStart: 60-00-7978Xglpflzhd [Mass/volume] in Serum or PlasmaJOSHUA NAPORA Start: 38-82-0159Wczha metabolic panel calcium totalRywilmar Zendejas MD Work Phone: Start: 90-85-9107JLF 12-LEADJOSHUA NAPORAStart: 36-00-7750Vninw metabolic 2000 panel - Serum or PlasmaJOSHUA NAPORAStart: 45-73-0170AMK W Auto Differential panel - BloodJOSHUA Start: 12-12-2023 Magnesium [Mass/volume] in Serum or PlasmaJOSHUA NAPORAStart: 38-20-6055Qhfcz metabolic panel calcium Gerda Zendejas MD Work Phone: Start: 84-94-2499IIJ 12-LEADJOSHUA NAPORAStart: 61-56-3285Ysz routine ecg w/least 12 lds trcg only w/o i&rRomeo Marie-Jose Guadalupe DPM Work Phone: Start: 97-65-7750VZ ABDOMEN 1 VIEWTRIHEALTHStart: 10-23-7182Jcffdaewuu exam abdomen 1 Jeanette Cai MD Work Phone: Start: 04-29-2907CPMKSGRADSK TUBE INSERTIONJOMISSOURI REHABILITATION CENTER Start: 27-34-0990LN ABDOMEN 1 VIEWTRIHEALTHStart: 17-87-9059Whvpnhyane exam abdomen 1 Sigrid Berman MD Work Phone: Start: 36-56-7138Pdcnl metabolic 2000 panel - Serum or PlasmaJOSHUA NAPORAStart: 90-40-6347DVW W Auto Differential panel - BloodJOSHUA NAPORAStart: 69-49-6785Cddfe metabolic panel calcium shiraRywilmar Zendejas MD Work Phone: Start: 77-22-9937CMBKE OXIMETRY, CONTINUOUSJOSHUA NAPORAStart: 83-57-4417IKJVA OXIMETRY, CONTINUOUSRomeo Marie-Jose Guadalupe DPM Work Phone: Start: 79-40-2189BBLWA TO INPATIENTEncompass Health Rehabilitation Hospital of Sewickleyart: 77-00-6300UN FLUORO IMAGES NO CHARGEEncompass Health Rehabilitation Hospital of Sewickleyart: 01-80-1823AU PELVIS 1-2 VIEWSAUSTEN RIGGS CENTERStart: 25-02-8276WZ tomography Unspecified body regionAdam Navarro MD Work Phone: Start: 68-98-6092Ducszpfuex examination pelvis 1/2 viewsdarrius Navarro MD Work Phone: Start: 85-14-4236LIFYT/VERIFY ABORHEncompass Health Rehabilitation Hospital of Sewickleyart: 08-02-8783KOVC AND SCREENEncompass Health Rehabilitation Hospital of Sewickleyart: 78-00-2169Ozjrx typing serologic rh (d)Benny Dacosta DO Work Phone: Start: 12-08-2023 End: 14-41-0568Dgue ant pelvic bone fx&/dislc int fixj if pfrJodarrius Navarro MD Work Phone: Start: 14-80-0795NCBFD IN OUTPATIENT/HOSPITAL AMBULATORY SURGERYEncompass Health Rehabilitation Hospital of Sewickleyart: 83-63-9030WLWY CODECape Cod Hospital: 85-71-6649FQRN REQUEST OPERATING ROOMEncompass Health Rehabilitation Hospital of Sewickleyart: 35-27-0281QY PELVIS 3+ [facility] Hospitalart: 16-82-5836Hu lumbar spine w/contrast materialJoni Shellie Elder APRN - COSMETOLOGY INSTRUCTOR Work Phone: start: 71-32-0311Jqetqeewd procedure myelography/ct lumbarJoni Shellie Vogt CNP Work Phone: Plan of Treatment DateCare ActivityDetailAuthorStart: 45-77-0052JAvQ/Tdap/Td Vaccines (2 - Td or Tdap)DTaP/Tdap/Td Vaccines (2 - Td or Tdap)[facility] Start: 61-02-0440Iixjiw Vaccines (1 of 2)Zoster Vaccines (1 of 2)[facility] HospitalStart: 53-92-6163Ynnpbhdhf vaccinationNOFL Healthcare Start: 02-14-2025 End: 95-18-0684Miegada encounter procedureNOMS ENT NORWALKComment on above: ArrivedStart: 01-03-2025 End: 09-72-8021Sncanhv encounter procedureNOMS ENT NORWALKComment on above: ArrivedStart: 12-11-2024 End: 44-32-1473Nruffid encounter procedureNOMS ENT NORWALKComment on above: ArrivedStart: 11-28-2024 End: 37-57-2899Ayfyyoiykabi / ancillary services hwhddhvxii57/23/2025 9:00 AM EDT Ancillary Procedure [facility] CT [address] [place] [address] [address]Start: 11-21-2024 End: 31-76-2702WG Pelvis 3 [facility] Service Area Work Phone: Comment on above:Expected: 11/21/2024, Expires: 05/23/2025Once for 1 Occurrences starting 11/21/2024 until 11/21/2024Start: 11-21-2024 End: 48-37-6011Cjusoeh encounter /16/2025 1:30 PM EDT Office Visit [facility] [address] [facility] [address] [place] [address] [place] [address] Department [place] [address] [facility] CenterStart: 07-27-9071Eljxwbgvwg hospital visit by sapxnffgm86/16/2025 1:00 PM EDT Hospital Encounter [facility] [address] [facility] 5th [place] [address] Pelvic painWilliamson Medical CenterComment on above:Pelvic painStart: 11-13-2024 End: 81-13-2230ET Maxillofacial region WO and W contrast IVCT maxillofacial wo IV contrast Imaging Routine Chronic sinusitis, unspecified location Nasal polyp Expected: 11/13/2024, Expires: 11/13/2025NOFL [facility] Work Phone: comment on above:Expected: 11/13/2024, Expires: 11/13/2025Start: 06-17-1935Snqhnorkdn hospital visit by xdldqnniu73/16/2024 12:59 PM EDT Hospital Encounter [facility] [address] [facility] 5th [place] [address] Pelvic painWilliamson Medical CenterComment on above:Pelvic painStart: 04-08-2024 COVID-19 Vaccine ( season)COVID-19 Vaccine ( season) [facility] HospitalStart: 36-14-1217Csjspzizu vaccination [facility] HospitalStart: 03-02-2024 End: 65-98-9598RC Pelvis 3 ViewsXR pelvis 3+ views Imaging Routine Pelvic pain Expected: 03/02/2024, Expires: 01/31/2025[facility] Work Phone: Comment on above:Expected: 03/02/2024, Expires: 01/31/2025Start: 02-29-2024 End: 56-96-1409Qotqqfy encounter afqdjfjxg92/24/2024 1:15 PM EDT Office Visit [facility] [address] [place] [address] [place] [address] Department [place] [address] [facility] Campustart: 02-01-2024 End: 65-26-9986Ztelkrl encounter gqndislck78/26/2024 1:30 PM EDT Office Visit [facility] [address] [place] [address] [place] [address] Department [place] [address] [facility] CenterStart: 01-28-2024 End: 39-39-4158NI Pelvis 3 ViewsXR pelvis 3+ views Imaging Routine Pelvic pain Expected: 01/28/2024, Expires: 12/27/2024UnCleveland Clinic Euclid Hospital Work Phone: Comment on above:Expected: 01/28/2024, Expires: 12/27/2024Start: 12-28-2023 End: 12-97-8279NF Pelvis 3 ViewsLOVELACE WOMEN'S [facility] Service Area Work Phone: Comment on above:Expected: 12/28/2023, Expires: 12/26/2024Once for 1 Occurrences starting 12/28/2023 until 12/28/2023Start: 51-31-3885Uidxrvwvxw hospital visit by uxujdctbh28/02/2024 Hospital Encounter [facility] [address] [place] [address] [place] [address] Department [place] [address] [facility]villeer ORStart: 11-30-2023 End: 21-98-2126NO Pelvis 3 ViewsLOVELACE WOMEN'S [facility]OSPITAL Service Area Work Phone: Comment on above:Expected: 11/30/2023, Expires: 11/29/2024Once for 1 Occurrences starting 11/30/2023 until 11/30/2023Start: 06-66-7716LXCCS-19 Vaccine ( season)COVID-19 Vaccine ( season)[facility] HospitalStart: 16-82-8032kpatgmvmfgIrjqevvnvb Facility:H1Roorc: 18-05-9126Pohnfmkyoj measurementKettering Health Greene Memorialatinine [facility] Work Phone: start: 61-91-2949Ykjgoyyoz monitoringPotassium monitoringMercy Hospital Agilys Phone: start: 86-85-6456Tscrjrvvk vaccinationFlu vaccine (#1) [facility] Phone: start: 35-52-2546Hstnytpdc for malignant neoplasm of colonColon cancer screen colonoscopyMercy Hospital Agilys Phone: start: 60-04-9955PAhC/Tdap/Td vaccine (1 - Tdap) DTaP/Tdap/Td vaccine (1 - Tdap)[facility] Phone: start: 77-74-3433Igmzwaxfc B Vaccines (1 of 3 - 19+ 3- dose series)Hepatitis B Vaccines (1 of 3 - 19+ 3-dose series)[facility]: 13-25-1181Bunarrasvogm Vaccine: Pediatrics and At- Risk Adult Patients (1 of 2 - PCV)Pneumococcal Vaccine: Pediatrics and At-Risk Adult Patients (1 of 2 - PCV)[facility]: 1993 Diabetes mellitus screeningDiabetes ScreeningDetwiler Memorial Hospital Start: 87-29-7895Duusfxsyj C screeningHepatitis C ScreeningAccess Hospital [facility]: 67-48-7906VJS screeningHIV [facility] Phone: start: 03-32-4509BDZER-19 Vaccine (1)COVID-19 Vaccine (1)[facility] Phone: start: 91-49-0150Jhpkj panelLipid [facility] [employer] [facility] Phone: start: 17-72-1639Fqyznjpvuzcw Vaccine: Pediatrics (0 to 5 Years) and At-Risk Patients (6 to 64 Years) (1 of 2 - PCV)Pneumococcal Vaccine: Pediatrics (0 to 5 Years) and At-Risk Patients (6 to 64 Years) (1 of 2 - PCV)[facility]: 77-16-9296WJE Vaccines (1 of 1 - Standard series)MMR Vaccines (1 of 1 - Standard series)[facility]: 79-18-9507Krometylz C screeningHepatitis C screenMercy Health Work Phone: start: 10-69-7057VRE screeningHIV ScreeningUnTriHealth: 25-65-9679Wkewh panelLipid PanelUnTriHealth: 53-95-5806Bigxsghsu for malignant neoplasm of colon [facility]: 28-06-1636Jpmwjw Adult PhysicalYearly Adult PhysicalUnCleveland Clinic Euclid HospitalComprehensive metabolic 2000 panel - Serum or PlasmaSumma Health Akron Campus End: 33-14-6705Veqvsrcuba Pulse oximetry, In Phase 1Continuous Pulse oximetry, In Phase 1 Respiratory Care Routine Continuous until discontinued starting 12/08/2023[facility] Service Area Work Phone: Comment on above:Continuous until discontinued starting 12/08/2023Electrocardiogram, 12-lead PRN ACS symptomsElectrocardiogram, 12-lead PRN ACS symptoms ECG Routine As needed until discontinued starting 12/08/2023, 1 completedLOVELACE WOMEN'S [facility]OSPITAL Service Area Work Phone: Comment on above:As needed until discontinued starting 12/08/2023, 1 completedElectrocardiogram, 12-lead PRN ACS symptoms Electrocardiogram, 12-lead PRN ACS symptoms ECG Routine 12/12/2023 12:34 PM EDT [facility] Work Phone: Optx ant pelvic bone fx&/dislc int fixj if pfrOpen Reduction Internal Fixation Pelvis Pelvic painVirtual [facility] End: 80-95-1931Fzovsdrd Catheter RemovalUrethral Catheter Removal Procedures Routine Once for 1 Occurrences starting 12/09/2023 until 12/09/2023UnCleveland Clinic Euclid Hospital Work Phone: Comment on above:Once for 1 Occurrences starting 12/09/2023 until 12/09/2023 End: 73-03-8566Njvzet ABO/Rh Group Test (VERAB)[facility] Work Phone: Comment on above:STAT (Lab) for 1 Occurrences starting 12/08/2023 until 12/08/2023 End: 19-44-8899OS Pelvis 3 [facility] Service Area Work Phone: Comment on above:Once for 1 Occurrences starting 05/23/2024 until 05/23/2024 End: 04-50-8325WS Pelvis 3 [facility] Service Area Work Phone: Comment on above:Once for 1 Occurrences starting 02/01/2024 until 02/01/2024[facility] Immunizations Immunization DateImmunizationNotesCare BkqmudrgZkibffis18-51-2042fpjunuv toxoid, reduced diphtheria toxoid, and acellular pertussis vaccine, adsorbedAdam Navarro MD Work Phone: [facility]10-16-2019influenza, injectable, quadrivalent, preservative freeRolo HunterBradford Regional Medical Center Work Phone: [facility] CareWuywawtwxc02-34-3030spziyurdz virus vaccine, unspecified formulationAdam Navarro MD Work Phone: [facility] Work Phone: [phone] and diphtheria toxoids, adsorbed, preservative free, for adult use (5 Lf of tetanus toxoid and 2 Lf of diphtheria toxoid)Adam Navarro MD Work Phone: [facility] Work Phone: [phone] toxoid, reduced diphtheria toxoid, and acellular pertussis vaccine, adsorbedTamaracia Mart Other [employer] Other Payers DatePayer CategoryPayerPolicy [id number] Clinic Lutheran HospitalBS Member Subscriber Plan / Payer (Effective 2020-Present) Name: Prosper Milian Relation to Subscriber: Self Name: Prosper Milian PayerID: Not on file Type: Not on file Address: [address] [place] [id number] Hospital - [facility] 1.2.840.255121.1.13.647.2.7.9.197710.349102.28551-15-6100Hgtfumq 1.2.840.382420.1.13.647.2.7.3.090[id number] 2..1.442010.3.57[id number] 2.0.1.550227.3.57[id number] 2.0.1.572225.3.57[id number] 2.0.1.134683.3.57[id number] 2.0.1.919476.3.57[id number] 2.0.1.623000.3.57[id number] 2.16.840.1.583608.3.57[id number] 2.16.840.1.071172.3.57[id number] 2.16.840.1.706131.3.57[id number] 2.16840.1.843906.3.57[id number] 2.840.1.395814.3.57[id number] 2.840.1.377644.3.57[id number] 2.840.1.290582.3.57[id number] 2.0.1.953878.3.57[id number] 2.840.1.698067.3.57[id number] 2.840.1.760483.3.57[id number] 2.840.1.743958.3.57[id number] 2.840.1.034914.3.57[id number] 2.840.1.812256.3.579.[id number] 2.840.1.599221.3.57[id number] 2.840.1.926978.3.57[id number] 2.16.840.1.847785.3.57[id number] 2.16.840.1.323826.3.57[id number] 2.16.840.1.462696.3.579.[id number] 2.840.1.669616.3.57[id number] 2.840.1.776336.3.579.2.[id number] 2.840.1.183302.3.57[id number] 2.0.1.678622.3.579.2.[id number] 2.0.1.744692.3.579.2.4[id number] 2.0.1.891780.3.579.[id number] 2.840.1.243244.3.579.[id number] 2.0.1.010203.3.579.2.441393-59-9383Orvdxdw4738916 2.840.1.688948.3.579.[id number] 2.840.1.970322.3.579.2.[id number] 2.840.1.398423.3.579.2.18499-18-0873AbkvyljQHA621I93064 1.2.840.636571.1.13.239.[id number] 2.16.840.1.888179.3.579.2.531UnknownAnthem /[id number] 59du26o5-v9e6-597w-rm93-52t0kxqky609 Social History DateTypeDetailFacilityStart: 02-25-2021 End: 50-68-3864Toqeerl smoking status NHISNever smokerUc Medical CenterDaptiv Phone: start: 02-25-2021 End: 48-77-7573Xxtkrqp use and exposureNever usedAwarenessHubStart: 1975 Sex Assigned At BirthNot on [facility]In[facility] Phone: start: 11-20-2023 End: 11-90-2791Lpsoduqb to SARS-CoV-2 (event)Not sureIntronis Phone: Start: 12-11-2023 End: 77-40-1563Kaj Assigned At BirthUnCleveland Clinic Euclid HospitalStart: 11-30-2023 End: 76-20-7369Smxduxyje beverage intakeEx-drinker (finding)[facility] Work Phone: Start: 95-12-7110Mvo assigned at birthMaleUniMemorial Health System Marietta Memorial HospitalStart: 79-46-2400Kbiukw identityIdentifies as male gender (finding)[facility] Work Phone: Start: 87-59-0476Wovlwz orientationHeterosexual (finding)[facility] Work Phone: Start: 12-11-2023 End: 68-88-5805Lnuwuby of Social functionUnCleveland Clinic Euclid HospitalHa the Mempile, gas, oil, or water company threatened to shut off services in your home in past 12MoNoUnCleveland Clinic Euclid HospitalHow often to you have a drink containing alcohol?NeverUnCleveland Clinic Euclid HospitalHow many standard drinks containing alcohol do you have on a typical day?Patient does not drink [facility] Work Phone: Do you feel stress - tense, restless, nervous, or anxious, or unable to sleep at night because yourmind is troubled all the time - these days [OSQ]Not at allDetwiler Memorial Hospital Work Phone: (I/We) worried whether (my/our) food would run out before (I/we) got money to buy more.Never trueUnCleveland Clinic Euclid Hospital Work Phone: Start: 09-26-2024 End: 40-58-1904UlyJios (finding)[facility] CampusTobaoklahoma city [facility] [place] smoking status NHISTobacco smoking consumption unknownNOMS Healthcare Medical Equipment Procedure CodeEquipment CodeEquipment Original TextEquipment IdentifierDates Gabriel Manzano 5.5cc - [id number] - [id number]: 12-08-2023 Power Mix, Mini Ingite, [facility] - [id number] - [id number], [id number] FDAStart: 20-38-6886Ero Elite Implant Kit 31c93yc 2 [id number]: 11-75-6554Lbvwslj on above:Description: Per oracle jdr 5/3Screw, Cortical, Self-Tapping, 3.5 X 32 Mm, Stainless Steel - [id number]: 12-18-5942Bssgu, 7.3mm Geoff, Full Thread, 165mm, Sterile - [id number]: 01-72-1756Iwdzw, 7.3mm Geoff, Full Thread, 145mm, Sterile - [id number]: 49-76-1073Hhnsb, Cortical, Self-Tapping, 3.5 X 36 Mm, Stainless Steel - [id number]_zzy Start: 98-06-9248Pxieo, 3.5 X 6h Pubic Symphysis - Sna - [id number]_bba Start: 16-81-2371Adnfo, Cortical, Self-Tapping, 3.5 X 30 Mm, Stainless Steel - Sna - [id number]_vpaJjynz: 39-55-1296Zrehg, Cortical, Self-Tapping, 3.5 X 24 Mm, Stainless Steel - Sna - [id number]_mefXvviq: 90-06-6468Upxao Cortex 3.5 X 70 - Sna - [id number]_acxBbqim: 24-93-8661Trsjt, Cortical, Self- Tapping, 3.5 X 34 Mm, Stainless Steel - Sna - [id number]_oghAcgpr: 24-49-8693Ttxen, Cortical, Self-Tapping, 3.5 X 75 Mm, Stainless Steel - Sna - [id number]_qkrLuhjy: 83-31-0810Qwnjxe, F/Large Screws, 13 Mm, Stainless Steel - [id number]_mzyTjlha: 12-08-2023 Clinical Notes 04-08-2016 to 03-11-2025 Note Date & QumfKbqlPpkjxiil64-89-2426 History of Present illness Narrative* Tom Zarate, BRIGIDA - 03/11/2025 3:55 PM EDT Images from the original note were not included. [address] , [address] [facility], [address] P: [phone] F: [phone] [facility]: patient Prosper Milian is a 49 y.o. [...] ear normal. Nose: Nose normal. Mouth/Throat: Lips: Bonham. Mouth: Mucous membranes are moist. Pharynx: Oropharynx [...] 75 mL; Refill: 0 documented in this [place] [facility]07-10-2025 History of Present illness Narrative* Rolo Phoenix, [...] 1 puff before bedtime. Samples LOT # [id number] Exp 10/2025., Disp: 16 mL, Rfl:1 gabapentin [...] Resource Strain: Low Risk (12/08/2023) Received from [facility] Overall Financial Resource Strain (CARDIA) Difficulty of Paying Living Expenses: Not hard at all Food Insecurity: No Food Insecurity (12/08/2023) Received from [facility] Hunger Vital Sign Worried About Running Out of Food in the Last Year: Never true Ran Out of Food in the Last Year: Never true Transportation Needs: No Transportation Needs (12/08/2023) Received from [facility] PRAPARE - Transportation Lack of Transportation (Medical): No Lack of Transportation (Non-Medical): No Physical Activity: Insufficiently Active (12/08/2023) Received from [facility] Exercise Vital Sign Days of Exercise per Week: 3 days Minutes of Exercise per Session: 30 min Stress: No Stress Concern Present (12/08/2023) Received from [facility] [place] [facility] [place] [employer] - Occupational Stress Questionnaire Feeling of Stress : Not at all Social Connections: Not on file Intimate Partner Violence: Unknown (08/07/2024) Received from [facility] Humiliation, Afraid, Rape, and Kick questionnaire Fear of Current or Ex-Partner: Patient unable to answer Emotionally Abused: Not on file Physically Abused: Not on file Sexually Abused: Not on file Housing Stability: Low Risk (12/11/2023) Received from [facility] Housing Stability Vital Sign Unable to [...] serous disability, and . documented in this encounterUniversity of Missouri Health CareReqlpemqyu87-68-7951 History of Present illness Narrative* Rolo Phoenix [...] 1 puff before bedtime. Samples LOT # [id number] Exp 10/2025., Disp: 16 mL, Rfl:1 gabapentin [...] Resource Strain: Low Risk (12/08/2023) Received from [facility] Overall Financial Resource Strain (CARDIA) Difficulty of Paying Living Expenses: Not hard at all Food Insecurity: No Food Insecurity (12/08/2023) Received from [facility] Hunger Vital Sign Worried About Running Out of Food in the Last Year: Never true Ran Out of Food in the Last Year: Never true Transportation Needs: No Transportation Needs (12/08/2023) Received from [facility] PRAPARE - Transportation Lack of Transportation (Medical): No Lack of Transportation (Non-Medical): No Physical Activity: Insufficiently Active (12/08/2023) Received from [facility] Exercise Vital Sign Days of Exercise per Week: 3 days Minutes of Exercise per Session: 30 min Stress: No Stress Concern Present (12/08/2023) Received from [facility] [place] [facility] [employer] - Occupational Stress Questionnaire Feeling of Stress : Not at all Social Connections: Not on file Intimate Partner Violence: Unknown (08/07/2024) Received from [facility] Humiliation, Afraid, Rape, and Kick questionnaire Fear of Current or Ex-Partner: Patient unable to answer Emotionally Abused: Not on file Physically Abused: Not on file Sexually Abused: Not on file Housing Stability: Low Risk (12/11/2023) Received from [facility] Housing Stability Vital Sign Unable to [...] worsening symptoms, consider septoplasty documented in this encounterUniversity of Missouri Health CareDddmndsmso31-61-6597 History of Present illness Narrative* Rolo Phoenix [...] screening colonoscopy 08/07/2024 Fracture of left pelvis ([facility]) 08/07/2024 HTN (hypertension) ([facility]) 12/08/2023 Hyperlipidemia (CMS/HCC) 12/08/2023 Lumbar pain 11/30/2023 [...] 1 puff before bedtime. Samples LOT # [id number] Exp 10/2025., Disp: 16 mL, Rfl:1 Past [...] Resource Strain: Low Risk (12/08/2023) Received from [facility] Overall Financial Resource Strain (CARDIA) Difficulty of Paying Living Expenses: Not hard at all Food Insecurity: No Food Insecurity (12/08/2023) Received from [facility] Hunger Vital Sign Worried About Running Out of Food in the Last Year: Never true Ran Out of Food in the Last Year: Never true Transportation Needs: No Transportation Needs (12/08/2023) Received from [facility] PRAPARE - Transportation Lack of Transportation (Medical): No Lack of Transportation (Non-Medical): No Physical Activity: Insufficiently Active (12/08/2023) Received from [facility] Exercise Vital Sign Days of Exercise per Week: 3 days Minutes of Exercise per Session: 30 min Stress: No Stress Concern Present (12/08/2023) Re[facility] from [facility] - Occupational Stress Questionnaire Feeling of Stress : Not at all Social Connections: Not on file Intimate Partner Violence: Unknown (08/07/2024) Received from [facility] Humiliation, Afraid, Rape, and Kick questionnaire Fear of Current or Ex-Partner: Patient unable to answer Emotionally Abused: Not on file Physically Abused: Not on file Sexually Abused: Not on file Housing Stability: Low Risk (12/11/2023) Received from [facility] Housing Stability Vital Sign Unable to [...] 1 puff before bedtime. Samples LOT # [id number] Exp 10/2025. Nasal polyp Comments: we will see how this patient response to Xhance. No evidence of sinus involvement of the nasal polyps Orders: - Fluticasone Propionate (Xhance) 93 MCG/ACT Exhaler Suspension; Administer 1 puff into affected nostril(s) in the morning and 1 puff before bedtime. Samples LOT # [id number] Exp 10/2025. Hypertrophy of nasal turbinates Comments: continue topical steroid treatment for the nose. Consider inferior turbinate reduction documented in this encounterUniversity of Missouri Health CareUcguwouslq54-08-2357 Evaluation note* Diagnosis Onset Date Resolution Status Admit Date Family history of prostate cancer in fat her acuteApril 2024 8:26amFracture of left pelvis with routine healingacute November 30, 2024 8:26amHypertensionacuteApril 2024 8:26amWellness examinationacuteApr2024 8:26amHypertensionacuteMay 2024 1:16pm Migraine headacheacuteMay 2024 1:16pmLight-headednessacuteJuly 2024 9:58am [facility] Work Phone: 1(735) 574-682504-08-2025 History of Present illness Narrative* Rolo Phoenix [...] Resource Strain: Low Risk (12/08/2023) Received from [facility] Overall Financial Resource Strain (CARDIA) Difficulty of Paying Living Expenses: Not hard at all Food Insecurity: No Food Insecurity (12/08/2023) Received from [facility] Hunger Vital Sign Worried About Running Out of Food in the Last Year: Never true Ran Out of Food in the Last Year: Never true Transportation Needs: No Transportation Needs (12/08/2023) Received from [facility] PRAPARE - Transportation Lack of Transportation (Medical): No Lack of Transportation (Non-Medical): No Physical Activity: Insufficiently Active (12/08/2023) Received from [facility] Exercise Vital Sign Days of Exercise per Week: 3 days Minutes of Exercise per Session: 30 min Stress: No Stress Concern Present (12/08/2023) Received from [facility] [place] [facility] [employer] - Occupational Stress Questionnaire Feeling of Stress : Not at all Social Connections: Not on file Intimate Partner Violence: Unknown (08/07/2024) Received from [facility] Humiliation, Afraid, Rape, and Kick questionnaire Fear of Current or Ex-Partner: Patient unable to answer Emotionally Abused: Not on file Physically Abused: Not on file Sexually Abused: Not on file Housing Stability: Low Risk (12/11/2023) Received from [facility] Housing Stability Vital Sign Unable to [...] steroid nasal spray b.i.d.. documented in this encounterUniversity of Missouri Health CareDevagairky83-14-8454 Evaluation note* Diagnosis Onset Date Resolution Status Admit Date Recurrent sinus infections acuteMarch 2024 8:19amFamily history of prostate cancer in fatheracute November 30, 2024 8:26amFracture of left pelvis with routine healingacuteApril 2024 8:26amHypertensionacuteApril 2024 8:26amWellness examination acuteApril 2024 8:26am [facility] Work Phone: 1(348) 513-321401-27-2025 Evaluation note* Diagnosis Onset Date Resolution Status Admit Date Recurrent cold sores acuteJanuary 2024 2:39pmSpinal headacheacuteJanuary 2024 2:39pm Sinusitis, acute maxillaryacuteFebruary 2024 10:41am [facility] Work Phone: 1(346) 820-169201-27-2025 Evaluation note* Diagnosis Onset Date Resolution Status Admit Date Recurrent cold sores acuteJanuary 2024 2:39pmSpinal headacheacuteJanuary 2024 2:39pm Sinusitis, acute maxillaryacuteFebruary 2024 10:41amRecurrent sinus infectionsacuteMarch 2024 8:19amFamily history of prostate cancer in fatheracuteNovember 30, 2024 8:26amFracture of left pelvisacuteApr2024 8:26amHypertensionacuteApril 2024 8:26amWellness examinationacuteApril 2024 8:26am [facility] Work Phone: 1(829) 834-332212-31-2024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 Otolaryngology11/13/24Team MemberRelationshipSpecialtyStart DateEnd Date Chantal Mart MD [address] [facility] [phone] PCP - GeneralFamily Medicine11/13/24 Rolo Phoenix DO [address] [place] [address] Otolaryngology11/13/24 Team Status: Inactive Member Role Status [...] DateEnd Date Chantal Mart MD [address] [place] [address] PCP - GeneralFamily Medicine11/13/24 Rolo Phoenix DO [address] [place] [place] [address] Otolaryngology11/13/24 Goals (unrecognized section and content) Goals [...] BE BASED ON THE PRIMARY CLINICAL RECORDS. [facility] [facility]. provides no warranty or guarantee of the accuracy or completeness of information in this document.
[2025-06-24 08:01] VITALS: BP 142/87; PULSE 71; TEMP 36.9; O2SAT 95
[2025-06-24 08:31] VITALS: PULSE 62; O2SAT 97
[2025-06-24 08:32] VITALS: BP 131/77; PULSE 62; O2SAT 97
[2025-06-24 08:33] VITALS: BP 125/76
[2025-06-24] MEDS: 0.9 % SODIUM CHLORIDE 10 ML SYRINGE - SALINE FLUSH INJ (08:33)
[2025-06-24] MEDS: IOHEXOL 240 MG/ML - 10 ML VIAL 24 MG INJ (08:34)
[2025-06-24] MEDS: LIDOCAINE HCL 2% 400 MG/20 ML MDV 3 ML INJ (08:34)
[2025-06-24] MEDS: BUPIVACAINE HCL 0.25% PF 25 MG/10 ML VIAL INJ (08:34)
[2025-06-24] MEDS: METHYLPREDNISOLONE ACETATE 80 MG/ML VIAL INJ (08:34)
--- NOTE | 2025-06-24 08:39 | W.PM.PROCNOT ---
Date of procedure: 06/24/25 Pre-op diagnosis: Pain due to lumbar stenosis with neurogenic claudication Post-op diagnosis: same as pre-op Procedure: Procedure: Bilateral L5-S1 transforaminal epidural steroid injection Medications: Bupivacaine 0.25% 2cc, lidocaine 2% 1cc, depomedrol 80mg The patient was seen and examined in the preoperative holding area.? Informed consent was obtained and placed on the chart.? Patient was brought to the medical procedure unit and placed in the prone position where a timeout was completed verifying the correct patient, procedure site, position, and planned special equipment using sterile aseptic technique.? Under direct fluoroscopic visualization a 25-gauge Quincke tipped spinal needle was advanced at level left L5-S1 to the designated neural foramen where contrast dye was injected to show adequate spread.? There was no evidence of vascular or adverse uptake.? Epidural spread was appreciated.? The above-mentioned injectate was then placed in a 1.5 mL aliquot preceded by negative aspiration.? The needle was removed. The same procedure, at the same level, was completed on the opposite side. ? Patient was taken to the postprocedural recovery area and monitored for an appropriate length of time before found suitable for discharge in the accompaniment of a responsible adult. Anesthesia: Local Surgeon: Portia Clark Pathology: none sent Condition: stable Disposition: no change
== END 2025-06-24 08:42 | disposition home or self-care (01) ==
PROVIDERS: PCP Family Medicine; Visit Provider Anesthesiology
DX: M48.062 Spinal stenosis, lumbar region with neurogenic claudication (principal)
CPT/HCPCS: 64483; J0665; J1010; Q9966

== ENCOUNTER 2025-07-03 12:38 | Outpatient (OUT) | payer BC, SELFPAY ==
--- NOTE | 2025-07-03 12:36 | PM.CN ---
Consult Note: HPI Data of Consult Patient: known to practice within the last 3 years Consult date: 07/03/25 Requesting Physician: Cheryl Arango NP Primary Care Provider: Jaymie Haas MD Consult Narrative Reason for consult: low back pain Narrative: 49yom who presents for assessment. continues to use diclofenac, baclofen, percocet and gabapentin. denies adverse med side effects. Pain today 6/10, increasing with standing, walking, activity, weather changes. notes improvement with sitting, lying, heat. CHAPARRITA remains unchanged at 48% despite recent increase in percocet back to TID PRN dosing. pt underwent right shoulder injection with less than 50% improvement and bilateral L5-S1 TFESI with less than 50% improvement. previously pt has declined scs trial for lumbosacral pain. cc:: CC: Cheryl Arango NP Review of Systems ROS Musculoskeletal Reports: back pain and joint pain PFSH PFS Medical History Lumbar back pain ?M54.50 - Low back pain, unspecified (ICD-10) High cholesterol ?E78.00 - Pure hypercholesterolemia, unspecified (ICD-10) Glenoid cavity and neck of scapula fracture ?S42.143A - Displaced fracture of glenoid cavity of scapula, unspecified shoulder, initial encounter for closed fracture (ICD-10) ?S42.153A - Displaced fracture of neck of scapula, unspecified shoulder, initial encounter for closed fracture (ICD-10) Subdural hematoma ?S06.5XAA - Traumatic subdural hemorrhage with loss of consciousness status unknown, initial encounter (ICD-10) Osteoarthritis ?M19.90 - Unspecified osteoarthritis, unspecified site (ICD-10) Asthma ?J45.909 - Unspecified asthma, uncomplicated (ICD-10) HTN (hypertension) ?I10 - Essential (primary) hypertension (ICD-10) Surgical History S/P ORIF (open reduction internal fixation) fracture ?Z98.890 - Other specified postprocedural states (ICD-10) ?Z87.81 - Personal history of (healed) traumatic fracture (ICD-10) History of facial surgery ?Z98.890 - Other specified postprocedural states (ICD-10) Hx of colonoscopy ?Z98.890 - Other specified postprocedural states (ICD-10) S/P correction of deviated nasal septum ?Z98.890 - Other specified postprocedural states (ICD-10) Social History Little interest or pleasure in doing things: not at all Feeling down, depressed, or hopeless: not at all Meds Home Medications and Allergies Home Medications ?Medication ?Instructions ?Recorded ?Confirmed ?Type albuterol sulfate 90 mcg/actuation 2 inh inhalation Q3H PRN shortness 03/22/23 06/24/25 History aerosol inhaler of breath or wheezing lisinopril 20 mg tablet 10 mg PO DAILY 03/22/23 06/24/25 History simvastatin 20 mg tablet 20 mg PO DAILY 03/22/23 06/24/25 History sumatriptan succinate 50 mg tablet See Rx Instructions PO .COMPLEX 03/22/23 06/24/25 History diclofenac sodium 50 mg 50 mg PO BID PRN pain #60 tabs 02/29/24 06/24/25 Rx tablet,delayed release baclofen 10 mg tablet 10 mg PO TID PRN muscle spasm #90 04/26/24 06/24/25 Rx tabs naloxone 4 mg/actuation nasal 4 mg intranasal Q3M PRN opioid 07/04/24 06/24/25 Rx spray (Narcan) overdose #2 ea Glucosamine chondroitin 1 tab PO BID 08/29/24 06/24/25 History multivitamin 1 tab PO DAILY 08/29/24 06/24/25 History gabapentin 600 mg tablet 600 mg PO BID #60 tabs 04/04/25 06/24/25 Rx oxycodone-acetaminophen 5 mg-325 1 tab PO TID PRN pain #90 tabs 04/29/25 06/24/25 Rx mg tablet (Percocet) gabapentin 600 mg tablet 600 mg PO BID #60 tabs 05/09/25 06/24/25 Rx oxycodone-acetaminophen 5 mg-325 1 tab PO BID PRN pain #60 tabs 05/30/25 06/24/25 Rx mg tablet (Percocet) cetirizine 10 mg tablet 10 mg PO BID PRN allergy symptoms 06/24/25 06/24/25 History ferrous sulfate 325 mg (65 mg 325 mg PO DAILY 06/24/25 06/24/25 History iron) tablet (Feosol) oxycodone-acetaminophen 5 mg-325 1 tab PO TID PRN pain #90 tabs 06/24/25 Rx mg tablet (Percocet) Allergies Allergy/AdvReac Type Severity Reaction Status Date / Time tramadol Allergy Nausea Verified 06/24/25 08:03 nalbuphine (From Nubain) AdvReac Unknown Nausea Verified 06/24/25 08:03 Exam Constitutional Documenting provider has reviewed patient's vital signs: yes Common normals: no apparent distress, oriented x3 and alert General appearance: cooperative HENMT Common normals: normocephalic, hearing grossly normal bilaterally and moist oral mucous membranes Head and scalp: normocephalic Eye Common normals: PERRL Pupil: PERRL Neck & C-Spine Common normals: full ROM General: normal visual inspection Chest Common normals: inspection of chest normal Respiratory Common normals: normal respiratory effort, no retractions and no use of accessory muscles Back & Pelvis Lumbar spine/lower back: ROM limited and pain with ROM Sacroiliac joints: SI joint(s) abnormal Other: bilateral sij positive ivy(patricks), gaenslens, thigh thrust, compression test left greater than right strength 5/5 in BLE sensation intact BLE Extremity Right upper extremity: shoulder joint Other: positive empty can and posterior liftoff, increased pain in right AC joint with crossbody adduction. limited ROM with overhead reach Neuro Common normals: oriented x3 Sensorium/orientation: alert Motor exam: strength 5/5 throughout and no movement abnormalities noted Psych Common normals: mental status grossly normal, thought process normal, cooperative, affect normal, speech normal and activity/motor behavior normal Speech: normal speech Thought process: normal thought process Results Additional Findings Additional findings: If on a controlled substance or opioids, I have checked an [place] report on this patient and there are no aberrancies noted in the prescribing history.??If on a controlled substance or opioid a drug screen was completed and reviewed within the last year, and if there has not been a drug screen completed we ordered one today to monitor higher risk, state monitored pain medication use. As part of providing excellent, safe, comprehensive care, the following was completed at our patient's visit: 1. A medication reconciliation and review to ensure accurate knowledge of current/active medications, including asking our patients to inform us about any yyht-rqf-rtsdbnh medications or herbal remedies/nutritional supplements/alternative remedies. 2. A review to specifically ensure our patients have had annual screening for screening for depression, screening for tobacco use, and screening for unhealthy alcohol use. For concerning screenings had a discussion with the patient, provided patient education, and recommended follow-up with primary care provider when appropriate. If patient noted with a risk of falling, they received education on strength, gait, and balance training to prevent future risk of falling. Portions of this note may have been carried over from the previous visit and updated as appropriate. Please note this office utilizes paper charting in addition to the electronic medical record. A list of current medications, vitals, and PMH is available there as the clinical staff outside of myself do not have access to [employer] charting during the clinic day operations. As part of providing quality comprehensive care the current medications, vitals, and PMH were reviewed in the paper chart. Assessment and Plan Assessment and Plan (1) Sacroiliitis: (2) Lumbar stenosis with neurogenic claudication: (3) Lumbar degenerative disc disease: (4) Osteoarthritis of right shoulder: Qualifiers: Osteoarthritis type: primary Qualified Code(s): M19.011 - Primary osteoarthritis, right shoulder (5) Chronic right shoulder pain: (6) Chronic prescription opiate use: Assessment and Plan: oarrs reviewed, no concerns patient utilizing percocet 5-325mg tid prn moderate to severe pain with benefit per patient without side effects (7) Lumbar spondylosis: (8) Myofascial pain: Plan The patient has had over 3 months of moderate to severe lumbosacral pain with functional impairment and inadequate response to conservative care including NSAIDS (unless there are contraindication such as concurrent blood thinners), multiple oral or topical pain medications, and home exercise program/physical therapy.? Patient has completed >6 weeks of guided home exercise program and/or formal physical therapy program without relief of their symptoms.? I have reviewed the imaging of the lumbosacral spine and no red flags were identified. The Oswestry Disability Index was completed, and the patient scored a 48%.? proceed with bilateral SIJ injection under fluoroscopy for chronic bilateral SIJ pain and sacroilitis maintain gabapentin 600mg bid, baclofen 10mg tid prn pain/spasms, diclofenac 50mg bid prn pain take with food, percocet 5-325mg tid prn moderate to severe pain f/u after injection
--- OUTSIDE RECORDS SUMMARY | 2025-07-03 12:42 | XMS_ITS | Clinical Summary ---
Author Organization [facility] Address [address] [place] [address] Care Team Providers Care [employer] Name Role Phone Jaymie Haas MD Primary Care Provider [phone] Allergies Active AllergyReactionsCriticalityNoted DwyhEyysqhidNebegxomkqZcpap78/02/2017 TramadolNausea And Vomiting,OqrxyyaKda48/10/2016 Medications MedicationSigDispense QuantityRefillsLast FilledStart DateEnd DateStatus metoprolol [...] DateFamily history of colon cancer requiring screening reiknkuxcgt80/31/2024Fracture of left xgwxdw4508/07/2024Sacroiliac joint dysfunction of both sides08/07/2024Traumatic separation of pubic symphysis 08/07/20241410Oitwng34/02/2024HTN (hypertension)12/08/20235562Uqzujmgduhuejr82/02/2024 Utjtlfg1712/08/2023ilateral hip pain11/30/2023elvic pain11/30/2023Lumbar pain 11/30/2023Scrotum pain11/30/2023Lumbar morerbgduzerf97/15/2021umbar spondylosis 02/19/2021ciatica, left side11/20/2020ontact with and (suspected) [...] of your partner or ex-partner?Patient unable to adhsoi2108/07/2024Emotionally AbusedNot on file08/07/2024hysically AbusedNot on file08/07/2024Sexually AbusedNot on file08/07/2024HQ-2AnswerDate RecordedPatient Health Questionnaire-2 Smain351Sex and Gender InformationValueDate RecordedSex Assigned at BirthNot on fileLegal SexMale 06/22/2024 11:36 AM ESTGender IdentityNot on fileSexual OrientationNot on file Last Filed Vital Signs Vital SignReadingTime TakenCommentsBlood Nqogmmvv134/7808/07/2024 1:36 PM EST Rrxsr392008/07/2024 1:36 PM BQCGrtnrlnjaio81.8 ??C (98.2 ??F)08/07/2024 1:36 PM ESTRespiratory Rate--Oxygen Saturation--Inhaled Oxygen Concentration--Sqdcll915 kg (240 lb)08/07/2024 1:36 PM UPFUkporl497.9 cm (6')08/07/2024 1:36 PM ESTBody Mass Index32.5508/07/2024 1:36 PM EST Plan of Treatment Health MaintenanceDue DateLast DoneCommentsCT Atbazuxfgnez06/05/1976Colonoscopy 1975Colorectal Cancer Gdfenyhjx30/05/1976FIT-DNA1975FIT1975 FOBT1975 8818Dotydjpqzrkjg33/05/1976Hepatitis B Vaccines (1 of 3 - 19+ 3-dose series)1994Pneumococcal Vaccine: Pediatrics (0 to 5 Years) and At-Risk Patients (6 to 64 Years) (1 of 2 - PCV)1994COVID-19 Vaccine (4 - season)/, 10/17/2021, 09/19/2021Influenza Vaccine (#1) /Depression Apqmwfluw03Zoster Vaccines (1 of 2)2025dult Gwadwmg16/04/2024, 08/25/2015HIB VaccinesAged Out No longer eligible based [...] Team MemberRelationshipSpecialtyStart DateEnd Date Jaymie Haas MD [facility] [place] [address] PCP - Hkxapaa49/15/24
--- OUTSIDE RECORDS SUMMARY | 2025-07-03 12:42 | XMS_ITS | Clinical Summary ---
Author Organization [facility] Address [address] [place] [id number] Care Team Providers Care [employer] Name Role Phone Unavailable Primary Care Provider Unavailabl e Social History Tobacco UseTypesPacks/DayYears UsedDateSmoking Tobacco: Never AssessedSex and Gender InformationValueDate RecordedSex Assigned at BirthNot on fileLegal Sex Male07/09/2012 8:26 AM ESTGender IdentityNot on fileSexual OrientationNot on file Plan of Treatment Health MaintenanceDue DateLast DoneCommentsAnxiety Tkhqwyclm13/05/1994Depression Oszmngbhq88/05/1994HIV Bmknprptv82/05/1994Hepatitis C Wgdfgqxjc89/05/1994 DTaP,Tdap,Td Vaccine (1 - Tdap)1994Hepatitis B Vaccine (1 of 3 - 19+ 3- dose series)1994Lipid Rgwnbetuq05/05/2011CT Qnwhokjjions62/05/2021 Cologuard (FIT-DNA)08/12/20206124Fvhumbtvroz40/05/2021olorectal Cancer Screening 1Diabetes Winesfguq62/05/2021Fecal Occult Blood2020igmoidoscopy 1Covid-19 Vaccine ( season)2025Influenza Vaccine (#1) 2025 Insurance * Guarantor: Prosper Pineda EAccount TypeRelation to PatientDate of BirthPhone Billing PcovzoqVbtinNkom76/05/1976 [address] [place] [address]
--- OUTSIDE RECORDS SUMMARY | 2025-07-03 12:45 | XMS_ITS | CCD ---
Author Organization [facility] Care Team Providers Care Java Programmer Name Role Phone Chanatl Mart MD Primary Care Provider [phone] HAMILTON ELDER Referring Unavailable CHANTAL MART Primary [...] ALLYSON Tellez Admitting Unavailable PANTOJA ., DR ALYLSON Tellez Consulting Unavailable PANTOJA ., DR ALLYSON [...] Care Provider Chantal Mart MD Attending Provider [phone] Chantal Mart MD Primary Care Provider Rolo [...] Unavailable Chantal Mart MD Primary Care Provider [phone] Chantal Mart MD Primary Care Provider Chantal Mart MD Attending Provider ROLO PHOENIX Attending Unavailable CHANTAL MART Referring Unavailable LIZETT, ROLO Tellez Referring Unavailable LIZETT, ROLO Tellez Attending Unavailable BARRON, CHANTAL Referring Unavailable LIZETT, ROLO Tellez Attending Unavailable LIZETT, ROLO Tellez Attending Unavailable TOM ZARATE Attending Unavailable Amber ARENAS, Portia Garcia Attending Unavailable Amber ARENAS, Portia Garcia Attending Unavailable Allergies Allergy ClassificationReported Allergen(s)Allergy TypeDate of OnsetReaction(s) FacilityNalbuphine (2 sources)NalbuphineDrug Vgrvpeb28-96-9606Hhgfs HealthOpioid Agonists (2 sources)traMADolDrug Knjsxdn55-45-0763Zgtzgy And VomitingPromedica [facility] (15 sources)Nalbuphine; Translations: [Nubain]Drug [id number] [facility] Repository (20 sources)traMADol; Translations: [TRAMADOL]Drug Qelwkwm12-66-0249Siigva And Vomiting, UnknownNosaint luke's hospital Shoop Other Comment on above:Onset Date: 05/17/2016 (6 sources)Nubain *ANALGESICS - OPIOID*Propensity to adverse reactionsUnknoDosher Memorial Hospital [facility]ib[facility] Other (3 sources)Allergies ReconciledPropensity to adverse reactionsUnknoNorth Shore University Hospital [place] Other (3 sources)patient allergy list reviewed by nurse or physiciaPropensity to adverse yhtqscjal73-97-2670Hyzbgtd:[facility] Shoop Other (20 sources)Nalbuphine; Translations: [NALBUPHINE]Drug Qwffavn47-25-3970BqrqpSt. [facility] (1 source)No Known Medication Allergies; Translations: [No Known Medication Allergies]Propensity to adverse reactions (disorder)[facility] Repository (1 source)NalbuphineDrug Nigrhbk73-46-9462TnyklakrdOhiohealth [facility] Rep[facility] (1 source)traMADolDrug Pbhvfoc03-37-1689RyrjkvnvlOhiohealth [facility] Repository (1 source)ALLERGIES NOT ON FILE; Translations: [ALLERGIES NOT ON FILE]Propensity to adverse reactions (disorder)[facility] Repository Medications Current Medications MedicationDrug Class(es)DatesSig (Normalized)Sig (Original)acetaminophen 325 mg oral tablet (10 sources)Start: 75-13-9950gndr 2 tablets by mouth every six hours for pain acetaminophen (TylenoL) 325 mg tablet Indications: Pelvic pain Take 2 tablets (650 mg) by mouth every 6 hours if needed for mild pain (1 - 3) for up to 30 doses. 30 tablet 12/14/2023 ActiveStart: 84-48-0972ozmu 1 tablet by mouth every four hours as rntypa172 mg, oral, Every 4 hours PRN, pain mild (1-3), first line, Starting on [employer] 12/08/23 at 1809, If ordered PRN for pain, nurse is permitted to administer this medication for higher pain scores based onpatient preference? Yesacetaminophen 325 mg / oxyCODONE hydrochloride 5 mg oral tablet (20 sources)Opioid AgonistStart: 15-73-9846tszp 1 tablet by mouth three times daily as needed for painoxyCODONE-acetaminophen (Percocet) 5-325 MG tablet TAKE 1 TABLET BY MOUTH THREE TIMES A DAY NEEDED FOR PAIN 12/03/2024 ActiveStart: 11-29-2022 End: 14-59-9412zsbt 1 tablet by mouth every six hours as needed for pain Oxycodone-Acetaminophen (Endocet) 5-325 mg tablet Discontinued 1 TAB PO Every 6 hours as needed forPain November 29, 2022 12:00am July 02, 2024 3:48pm End: 11-44-7459uvja 1 tablet by mouth three times daily as neededoxyCODONE- acetaminophen (Percocet) 5-325 mg tablet Take 1 tablet by mouth 3 times a day as needed. 12/21/2023 Discontinued (Stop Taking at Discharge)take 1 tablet by mouth every six hoursoxyCODONE-Acetaminophen 5-325 MG 1 tablet as needed Orally every 6 hrs Activealbuterol 0.83 mg/ml inhalation solution (20 sources)beta2-Adrenergic AgonistStart: 27-87-6516yrjgktruf (2.5 MG/3ML) 0.083% nebulizer solution Indications: Acute cough , Chest congestion , Mild intermittent asthmatic bronchitis with acute exacerbation (HCC) Take 3 mL (2.5 mg) by nebulization every 6 (six) hours if needed for wheezing 75 mL 03/11/2025 ActiveStart: 84-74-1591lsce 3 mL by inhalation every six hours as needed Albuterol Sulfate 2.5 mg /3 mL (0.083 %) solution for nebulization Active 2.5 MG INHALATION Every 6hours September 24, 2024 1:00am FreeTextSi mL as needed Inhalation every 6 hrs; Note: Source Status: Taking; Provider: Barron Coon ( ) Complies with drug therapyStart: 69-07-3241fjwfiualg HFA 90 mcg/act inhaler 05/08/2024 ActiveStart: 35-50-2949suxi 1 puff(s) by mouth every four hours as neededalbuterol HFA 90 mcg/act inhaler INHALE 1 PUFF BY MOUTH EVERY 4 HOURS NEEDED 05/08/2024 ActiveStart: 03-13-2024 End: 52-81-0891zzxe 1 puff(s) by inhalation every four hours as neededAlbuterol Sulfate 90 mcg/actuation HFA aerosol inhaler Active 0 .ROUTE .COMPLEX 8.5 May 08, 2024 8:34am INHALE 1 PUFF INTO THE LUNGS EVERY 4 HOURS NEEDED Complies with drug therapyStart: 03-13-2024 End: 31-18-6003huad 1 puff(s) by inhalation every four hours as neededAlbuterol Sulfate 90 mcg/actuation HFA aerosol inhaler Discontinued 1 PUFF INHALATION Every 4 hoursas needed March 13, 2024 12:00am March 13, 2024 9:50amStart: 98-34-2906tybo 2 puff(s) by inhalation every six hours [...] Inhibitor, Nonsteroidal Anti-inflammatory Drug Start: 12-10-2023 End: 65-42-1163kyzp 1 tablet by mouth twice dailyaspirin 81 mg EC tablet Indications: Pelvic pain Take 1 tablet (81 mg) by mouth 2 times a day. 84 tablet 12/14/2023 01/25/2024 ActiveStart: 12-08-2023 End: 64-82-2234saoo 81 mg by mouth twice daily81 mg, oral, 2 times daily, First dose on [facility] 12/08/23 at 2100azithromycin 250 mg oral tablet (14 sources)Macrolide AntimicrobialStart: 05-38-4401muhemidhigau (Zithromax) 250 MG tablet Indications: Acute cough , Chest congestion , Mild intermittent asthmatic bronchitis with acute exacerbation (HCC) Take 1 tablet (250 mg) by mouth Daily Take 2 tabs on day 1 and 1 tab on days 2-5 then stop 6 tablet 03/11/2025 ActiveStart: 09-26-2024 End: 91-40-0950Huaezxvaqmca 250 mg tablet Discontinued 0 PO .COMPLEX 6 October 15, 2024 11:59am November 30, 2024 8:31am For 250 mg dose pack: take 500 mg today (day 1), then 250 mg for 4 days (days 2-5) POStart: 16-33-7199Zxqmnbbmyarb 250 MG as directed Orally 2 tabs po today, then 1 tab daily x 4 more days for 5 May, ActiveStart: 45-28-1456Bpjtnnkatciy 250 MG as directed Orally 2 tabs po today, then 1 tab daily x 4 more days for 5 December, Activebaclofen 10 mg oral tablet (15 sources)gamma-Aminobutyric Acid-ergic AgonistStart: 17-91-9780mlxg 1 tablet by mouth in the morning, [...] 100 mg oral capsule (2 sources)Non-narcotic AntitussiveStart: 84-72-7699ohzf 1 capsule by mouth three times daily as needed for coughbenzonatate (Tessalon Perles) 100 MG capsule Indications: Acute cough , Chest congestion , Mild intermittent asthmatic bronchitis with acute exacerbation (HCC) Take 1 capsule (100 mg) by mouth 3 (three) times a day as needed for cough Do not crush or chew. 21 capsule 03/11/2025 Activebisacodyl 10 mg rectal suppository (1 source)Stimulant LaxativeStart: 35-70-0334rlvd 10 mg rectal route every twenty-four hours as mg, rectal, Daily PRN, constipation, first line, Starting on 12/10/23 at 0723calcium carbonate 500 mg chewable tablet (1 source)Start: 99-18-6069dhpb 1000 mg by mouth four times daily as needed for gastroesophageal reflux disease1,000 mg, oral, 4 times daily PRN, heartburn, indigestion, Starting on 12/10/23 at 2201calcium carbonate 1500 mg / cholecalciferol 800 unt chewable tablet (3 sources)Vitamin DStart: 12-14-2023 End: 07-82-9538ciafdfm carbonate-vitamin D3 (Calcium 600 with Vitamin D3) 600 mg-10 mcg (400 unit) chewable tabletIndications: Pelvic pain Chew 1 tablet 2 times a day. 60 tablet 12/14/2023 01/13/2024 Activecetirizine hydrochloride 10 mg oral tablet (20 sources)Histamine-1 Receptor AntagonistStart: 52-10-4294lqrq 1 tablet by mouth twice dailyCetirizine 10 [...] 0.025 mg oral tablet (20 sources)Vitamin DStart: 43-48-0676kqxi 5000 [IU] by mouth once daily5,000 Units, oral, Daily, First dose on [employer] 12/08/23 at 2100Start: 31-23-7923ursa 1 tablet by mouth once dailyCholecalciferol (Vitamin [...] 10 mg oral tablet (20 sources)Muscle RelaxantStart: 98-33-4227jjpp 1 tablet by mouth three times daily as needed for muscle spasmscyclobenzaprine (Flexeril) 10 mg tablet Indications: Pelvic pain Take 1 tablet (10 mg) by mouth 3 times a day as needed for muscle spasms for up to 7 days. 21 tablet 12/14/2023 ActiveStart: 09-17-2023 End: 91-04-6067ttss 1 tablet by mouth three times daily as needed for pain cyclobenzaprine (Flexeril) 10 mg tablet TAKE 1 TABLET BY MOUTH THREE TIMES A DAY NEEDED FOR MUSCLE PAIN 09/17/2023 12/08/2023 Discontinued (Therapy completed)Start: 11-29-2022 End: 56-75-8489btsn 2 tablets by mouth at bedtimeCyclobenzaprine 10 mg tablet Discontinued 20 MG PO Bedtime November 29, 2022 12:00am June 19, 2024 3:15pmdiclofenac sodium 75 mg delayed release oral tablet (20 sources)Nonsteroidal Anti-inflammatory DrugStart: 66-50-5871tjmc 1 tablet by mouth twice dailyDiclofenac Sodium [...] mg oral capsule (1 source)Histamine-1 Receptor AntagonistStart: 46-78-896600 mg, oral, Nightly PRN, sleep, If melatonin does not work, Starting on Tue12/12/23 at 0310docusate sodium 100 mg oral capsule (4 sources)Start: 12-08-2023 End: 29-61-1318yvxo 1 capsule by mouth twice dailydocusate sodium (Colace) 100 mg capsule Indications: Pelvic pain Take 1 capsule (100 mg) by mouth 2times a day. 60 capsule 12/14/2023 01/13/2024 Activefluticasone propionate 0.093 mg/actuat metered dose nasal spray (11 sources)CorticosteroidStart: 30-31-6678xyql 1 puff(s) nasal route in the morningFluticasone Propionate (Xhance) 93 MCG/ACT Exhaler Suspension Indications: Chronic sinusitis, unspecified location , Nasal polyp Administer 1 puff into affected nostril(s) in the morning and 1 puff before bedtime. Samples LOT # [id number] Exp 10/2025. 16 mL 1 12/11/2024 ActiveStart: spray, Each Nostril, Daily, First dose on Tue12/14/23 at 2030, Shake gently. Before first use, prime pump (press 6 times until fine spray appears). After use, clean tip and replace cap.gabapentin 600 mg oral tablet (20 sources)Anti-epileptic AgentStart: 78-61-7109fmer 1 tablet by mouth in the morninggabapentin (Neurontin) 600 MG tablet Take 600 mg by mouth in the morning and 600 mg before bedtime.12/05/2024 ActiveStart: 22-79-4819iroq 1 capsule by mouth once daily at bedtimegabapentin (Neurontin) 300 mg capsule Take 1 capsule (300 mg) by mouth once daily at bedtime. 10/27/2023 ActiveStart: 01-30-2021 End: 84-48-8339ffscqgkqnu (NEURONTIN) 100 MG capsule TAKE 2 PILLS [...] oral tablet (20 sources)Angiotensin Converting Enzyme InhibitorStart: 83-58-3061aian 1 tablet by mouth once dailyLisinopril 10 mg tablet Active 10 MG PO Daily December 27, 2024 1:57pm Complies with drug therapyStart: 11-15-2023 End: 04-58-9663pbge 1 tablet by mouth once dailyLisinopril 20 mg tablet Discontinued 0 .ROUTE .COMPLEX November 08, 2024 9:40am December 27, 2024 1:57pm TAKE 1 TABLET BY MOUTH EVERY DAYStart: 11-29-2022 End: 57-53-0215mjqq 1 tablet by mouth once dailyLisinopril 20 mg tablet Discontinued 20 MG PO Daily November 29, 2022 12:00am November 15, 2023 8:41amtake 1 tablet by mouth once dailylisinopril (PRINIVIL;ZESTRIL) 10 MG tablet Take 10 mg by mouth daily 0 Activeloratadine 10 mg oral tablet (2 sources)Start: 60-05-5438crqs 10 mg by mouth twice daily10 mg, oral, 2 times daily, First dose (after last modification) on Tue12/14/23 at 2115Start: 12-13-2023 End: 02-73-0966nqss 10 mg by mouth once daily10 mg, oral, Daily, First dose on Tue12/13/23 at 2145magnesium oxide 500 mg oral tablet (11 sources)Start: 12-07-2015qbhm 1 tablet by mouth once dailymagnesium oxide 500 mg magnesium tablet Take 1 tablet (500 mg) by mouth once daily. 11/29/2022 Activemeclizine hydrochloride 12.5 mg oral tablet (1 source)AntiemeticStart: 49-63-0703rpxs 1 tablet by mouth every eight hours as needed for dizzinessMeclizine HCl 12.5 MG 1 tablet as needed Orally every 8 hours as needed for dizziness, may cause sedation for 5 days Oct, Active melatonin 5 mg oral tablet (1 source)Start: 38-60-9804hmdy 5 mg by mouth once daily as needed for sleep5 mg, oral, Nightly PRN, sleep, Starting on Tue12/09/23 at 2318meloxicam 15 mg oral tablet (2 sources)Nonsteroidal Anti-inflammatory DrugStart: 45-46-9487bmru 1 tablet by mouth once dailymeloxicam (MOBIC) 15 MG tablet TAKE 1 TABLET BY MOUTH EVERY DAY 0 11/16/2020 ActivemethylPREDNISolone (2 sources)CorticosteroidStart: 03-11-2025 End: 81-65-1147mnfpwzKSCOHHZufoht (Medrol Dospak) 4 MG tablets Indications: Acute cough , Chest congestion , Mild intermittent asthmatic bronchitis with acute exacerbation (HCC) Follow schedule on package instructions 21 tablet 03/11/2025 03/18/2025 Activemultivitamin tablet (9 sources)take 1 tablet by mouth once dailymultivitamin tablet Take 1 tablet by mouth once daily. ActiveMultivitamin Tablet (5 sources)Start: 64-63-1802taxi 1 tablet by mouth once dailyMultivitamin Tablet Active 1 TAB PO Daily November 29, 2022 12:00am Complies with drug therapyStart: 02-91-5896asqb 1 tablet by mouth once dailyMultivitamin Tablet Active 1 TAB PO Daily November 29, 2022 12:00amStart: 49-73-8677afhd 1 tablet by mouth once daily Multivitamin Tablet Active 1 TAB PO Daily November 28, 2022 11:00pmomeprazole 40 mg delayed release oral capsule (7 sources)Proton Pump InhibitorStart: 01-03-2025 End: 84-71-8850nlqk 1 capsule by mouth before mealtimeomeprazole (PriLOSEC) [address] capsule Indications: Laryngopharyngeal reflux (LPR) Take 1 capsule (40 mg) by mouth in the morning. Take before meals. Do not crush or chew. 30 capsule 2 01/03/2025 01/03/2026 ActiveoxyCODONE hydrochloride 5 mg oral tablet (3 sources)Opioid AgonistStart: 41-58-9121atlh 1 tablet by mouth every six hours as rkupwp74 mg, oral, Every 6 hours PRN, pain severe (7-10), first line, Starting on [employer] 12/08/23 at 1809, If ordered PRN for pain, nurse is permitted to administer this medication for higher pain scores based on patient preference? YesStart: 12-08-2023 End: 58-01-5486ymdb 1 tablet by mouth every six hoursoxyCODONE (Roxicodone) 5 mg immediate release tablet Indications: Pelvic pain , Acute postoperativepain Take 1 tablet (5 mg) by mouth every 6 hours for 7 days. 28 tablet 12/14/2023 12/21/2023 Activepantoprazole (1 source)Proton Pump InhibitorStart: 31-01-0612dawdhpvehzld (ProtoNix) EC tablet 40 mgphenol 14 mg/ml mucosal spray (1 source)Start: 77-84-5649dkxb 1 spray(s) by mouth every two hours as needed1 spray, Mouth/Throat, Every 2 hour PRN, sore throat, Starting on [place] 12/11/23 at 1141, Instruct patient to spit out after 15 seconds.polyethylene glycol 3350 54403 mg powder for oral solution (1 source)Osmotic LaxativeStart: g, oral, Daily, First dose on Tue12/08/23 at 1830, Bowel Regimen - for prevention of constipation.predniSONE 20 mg oral tablet (6 sources)Start: 76-20-0387wqff 2 tablets by mouth every twenty-four hours predniSONE 20 MG 2 tablets Orally Once a day for 5 days Nov, Active Start: 57-86-5554ewso 2 tablets by mouth every twenty-four hoursPromethazine (1 source)PhenothiazineStart: 23-63-4428ukwe 1 tablet by mouth every six hours as neededpromethazine (Phenergan) tablet 25 mgpromethazine (Phenergan) 12.5 mg in sodium chloride 0.9% 50 mL IV (1 source)Start: 98-76-7252uuio 12.5 mg intravenously every six hours as needed 12.5 mg, intravenous, Administer over 15 Minutes, Every 6 hours PRN, nausea/vomiting, first line, Starting on Tue12/11/23 at 2110sennosides, senior care 8.6 mg oral tablet (1 source)Start: 22-35-9455sllh 1 tablet by mouth once daily8.6 mg (1 tablet), oral, Nightly, First dose on Tue12/08/23 at 2100sildenafil 100 mg oral tablet (20 sources)Phosphodiesterase 5 InhibitorStart: 01-14-2025 End: 83-72-7283Vtqwjokmlb 100 mg tablet Active 100 MG PO Daily as needed for sexual activity February 06, 2025 8:50am administer 30 minutes to 4 hours before activity Complies with drug therapyStart: 08-97-0272kzjylxusjj (Viagra) 50 MG tablet 08/11/2024 ActiveStart: 07-16-2024 End: 02-92-0757Cfzdtvezyj (Viagra) 50 mg tablet Discontinued 50 MG PO Daily as needed for sexual activity December 10, 2024 4:05pm January 14, 2025 8:32am administer 30 minutes to 4 hours before activitysimethicone 80 mg chewable tablet (1 source)Start: 94-16-5653tcby 40 mg by mouth four times daily as mg, oral, 4 times daily PRN, flatulence, Starting on Tue12/09/23 at 1319sodium chloride 0.111 meq/ml nasal spray (1 source)Start: 88-13-0894daja 1 spray(s) nasal route four times daily as needed for congestion1 spray, Each Nostril, 4 times daily PRN, congestion, Starting on Tue12/13/23 at 1350SUMAtriptan 50 mg oral tablet (10 sources)Serotonin-1b and Serotonin-1d Receptor AgonistStart: 89-45-1996mvrk 1 tablet by mouth every two hours, then take 4 tablets by mouth every hour Sumatriptan Succinate 50 mg tablet Active 0 .ROUTE .COMPLEX January 29, 2025 12:42pm TAKE 1 TABLETBY MOUTH AT ONSET OF HEADACHE. MAY REPEAT IN 2 HOURS IF NO RELIEF. MAX 4 TABS/24 HOURS Complies with drug therapyStart: 12-27-2024 End: 17-81-6249IBJLgxbxxdv (Imitrex) 50 MG tablet 12/27/2024 ActivetiZANidine 4 mg oral tablet (11 sources)Central alpha-2 Adrenergic AgonistStart: 24-71-0039trdg 1 tablet by mouth three times daily as neededtiZANidine (ZANAFLEX) 4 MG tablet TAKE 1 TABLET BY MOUTH 3 TIMES A DAY NEEDED 0 11/20/2020 ActivevalACYclovir 1000 mg oral tablet (11 sources)Herpesvirus Nucleoside Analog DNA Polymerase Inhibitor, Herpes Simplex Virus Nucleoside Analog DNA Polymerase Inhibitor, Herpes Zoster Virus Nucleoside Analog DNA Polymerase InhibitorStart: 09-03-2024 End: 94-65-1334Esxcklynfdwk (Valtrex) 1 gram tablet Active 2000 MG [...] meq/ml injectable solution (2 sources)Start: 12-11-2023 End: 32-41-4895esqy 75 mL intravenously every hour75 mL/hr, intravenous, Continuous, Starting on Tue12/11/23 at 0000Start: 12-08-2023 End: 35-05-9587pdvw 100 mL intravenously every pwzy334 mL/hr, intravenous, Continuous, Starting on Tue12/08/23 at 1500, Recovery (only)ceFAZolin 2000 mg injection (1 source)Cephalosporin AntibacterialStart: 12-09-2023 End: 59-86-9124zsiw 2 g intravenously every eight hours2 g, [...] 41 % injection (1 source)Start: 02-25-2021 End: 20-33-8151fwnahughb (ISOVUE-M 200) 41 % wdpienwiq06 ml lidocaine hydrochloride 20 mg/ml injection (1 source)Antiarrhythmic, Amide Local AnestheticStart: 02-25-2021 End: 64-62-3279hmyqoxdmg 2 % injectionMagnesium (5 sources)Start: 11-29-2022 End: 56-58-5155ayiw 2 tablets by mouth once dailyMagnesium 250 mg Tablet Discontinued 500 MG PO Daily November 29, 2022 12:00am January 12, 2024 11:00am Start: 11-29-2022 End: 96-22-5618psdh 2 tablets by mouth once dailyMagnesium 250 mg Tablet Discontinued 500 MG PO Daily November 28, 2022 11:00pm January 12, 2024 10:00am24 hr metoprolol succinate 25 mg extended release oral tablet (20 sources)beta-Adrenergic BlockerStart: 74-97-3845uvka 1 tablet by mouth once dailymetoprolol succinate XL (Toprol-XL) 25 mg 24 hr tablet Take 1 tablet (25 mg) by mouth once daily. 11/15/2023 ActiveStart: 11-15-2023 End: 72-11-4442sbsi 1 tablet by mouth once dailyMetoprolol Succinate 25 mg tablet extended release 24 hr Discontinued 0 .ROUTE .COMPLEX 90 November 08, 2024 9:40am November 30, 2024 8:52am TAKE 1 TABLET BY MOUTH EVERY DAYStart: 11-29-2022 End: 27-77-9610djss 1 tablet by mouth once dailyMetoprolol Tartrate 25 mg Tablet Discontinued 25 MG PO Daily November 29, 2022 12:00am November 15, 2023 8:41am naproxen 500 mg oral tablet (1 source)Nonsteroidal Anti-inflammatory DrugStart: 09-17-2023 End: 74-33-9532pfdt 1 tablet by mouth twice dailynaproxen (Naprosyn) 500 mg tablet Take 1 tablet (500 mg) by mouth 2 times a day. 09/17/2023 09/24/2023 Expiredondansetron 4 mg disintegrating oral tablet (15 sources)Serotonin-3 Receptor AntagonistStart: 09-26-2024 End: 46-15-7618jpsl 1 tablet by mouth every eight hours as needed for nausea and vomitingOndansetron 4 mg tablet,disintegrating Discontinued 4 MG PO Q8H as needed for nausea and vomiting September 26, 2024 1:00am November 30, 2024 8:32amStart: 60-13-4512pjtqzeuwbcm (Zofran) 4 mg tablet Indications: Pelvic pain Take 2 tablets (8 mg) by mouth every 8 hours if needed for nausea or vomiting for up to 15 doses. 15 tablet 12/14/2023 ActiveStart: 34-21-4232kwbx 1 tablet by mouth every eight hours as neededondansetron (Zofran) tablet 4 mgoxygen (O2) therapy (1 source)Start: 12-08-2023 End: 90-11-3222ebajlodrdm, Continuous , First dose on Tue12/08/23 at 1500, Recovery (only), Device: NasalCannula, Rate in liters per minute: 2 LPM, Keep O2 Sat Above: 92%simvastatin 20 mg oral tablet (20 sources)HMG-CoA Reductase InhibitorStart: 60-00-3475vtqj 20 mg by mouth once daily20 mg, oral, Nightly, First dose on Tue12/08/23 at 2100Start: 11-15-2023 End: 84-51-4927smih 1 tablet by mouth once dailySimvastatin 20 mg tablet Discontinued 0 .ROUTE .COMPLEX 90 May 16, 2024 11:04am November 08, 2024 9:40am TAKE 1 TABLET BY MOUTH EVERY DAYStart: 11-29-2022 End: 56-90-0642qope 1 tablet by mouth at bedtimeSimvastatin 20 mg tablet Discontinued 20 MG PO Bedtime November 29, 2022 12:00am November 15, 2023 8:41am traZODone hydrochloride 50 mg oral tablet (20 sources)Serotonin Reuptake InhibitorStart: 12-19-2023 End: 07-70-0753hsth 1 tablet by mouth once daily at bedtimeTrazodone 50 mg tablet Discontinued 0 .ROUTE .COMPLEX 90 April 30, 2024 1:12pm November 05, 2024 9:13am TAKE 1 TABLET BY MOUTH EVERYDAY AT BEDTIMEStart: 07-26-2023 End: 78-57-6755qsax 1 tablet by mouth once daily at bedtimeTrazodone 50 mg tablet Discontinued 50 MG PO Daily at bedtime October 24, 2023 4:41pm October 25, 2023 12:25pm undefined Problems Active Problems Problem ClassificationProblemDateDocumented DateEpisodic/ChronicAcute bronchitis (1 source)Acute bronchitis, unspecifiedEpisodicAnxiety disorders (14 sources)Generalized anxiety disorder; Translations: [Generalized anxiety disorder]Onset: 88-97-7987HykkbsrVkgsmn (20 sources)Reactive airways dysfunction syndrome; Translations: [Unspecified asthma, uncomplicated]Onset: 12-08-2023 Resolved: 245400-66-4621GoifrgoKnbeeov obstructive pulmonary disease and bronchiectasis (3 sources)Acute exacerbation of chronic asthmatic bronchitis; Translations: [Chronic obstructive asthma, with(acute) exacerbation]Onset: 72-95-7055Wfwpbil Chronic obstructive pulmonary disease and bronchiectasis (4 sources)Bronchitis, not specified as acute or chronic; Translations: [BRONCHITIS NOT SPEC ACUTE/CHRON]Onset: 50-86-9693KsltuyeeWxwwyxolnblnw of surgical procedures or medical care (8 sources)Headache following lumbar puncture; Translations: [Other reaction to spinal and lumbar puncture]33-17-3992MamgqixpXpnofsqrjd associated with dizziness or vertigo (3 sources)Benign paroxysmal vertigo, left ear; Translations: [Lightheadedness] EpisodicEsophageal disorders (2 sources)Laryngopharyngeal reflux; Translations: [Gastro-esophageal reflux disease without esophagitis]15-95-0555ChiyhzmSmbycrlh; including migraine (20 sources)Complicated migraine; Translations: [Migraine with aura, not intractable, without status migrainosus]ChronicJoint disorders and dislocations; trauma-related (3 sources)Traumatic arthropathy of the shoulder region; Translations: [Traumatic arthropathy, shoulder region]Onset: 80-57-4089DvcckjiUbluoxt and fatigue (19 sources)Fatigue; Translations: [Other fatigue]Onset: 04-10-4550Qssjolzb Miscellaneous mental health disorders (5 sources)Primary insomnia; Translations: [Primary insomnia]Chronic Noninfectious gastroenteritis (15 sources)Acute gastroenteritis; Translations: [Noninfective gastroenteritis and colitis, unspecified]EpisodicNonspecific chest pain (6 sources)Chest pain, unspecified; Translations: [Chest pain at rest]Onset: [id number]uiwkdblwql (1 source)Unilateral primary osteoarthritis, left hip; Translations: [UNI PRIM OSTEOARTHRITIS LT HIP]Onset: 54-87-0301ErgrahqDbemv acquired deformities (4 sources)Incompetence of nasal valve; 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] 94-03-2794IzlndzhcHveia circulatory disease (13 sources)Elevated blood-pressure reading without diagnosis of hypertension; Translations: [Elevated blood-pressure reading, without diagnosis of hypertension]EpisodicOther circulatory disease (2 sources)Pulmonary congestion ; Translations: [Other specified symptoms and signs involving the circulatory and respiratory systems]12-08-7064DohkmejkNebsl connective tissue disease (4 sources)Cramp and spasm; Translations: [CRAMP AND SPASM]Onset: 09-16-2022 EpisodicOther connective tissue disease (5 sources)Other muscle spasm; Translations: [OTHER MUSCLE SPASM]Onset: 81-09-8195GauyolfjLfqvh fractures (1 source)Closed fracture dislocation of pelvis ; Translations: [Fracture of unspecified parts of lumbosacralspine and pelvis, subsequent encounter for fracture with routine healing]63-75-3763HgkxbmifZvkim fractures (3 sources)Fracture of unspecified parts of lumbosacral spine and pelvis, subsequent encounter for fracture with routine healing; Translations: [Aftercare for healing traumatic fracture of other bone]Onset: 46-58-7700AbiqtmetFgjbf fractures (1 source)Fracture of unspecified parts of lumbosacral spine and pelvis, initial encounter for closed fracture; Translations: [Closed unspecified fracture of pelvis]02-21-6795ZzeoyyixLdrjs injuries and conditions due to external causes (3 sources)Injury of left lower leg; Translations: [Unspecified injury of left lower leg, initial encounter]EpisodicOther injuries and conditions due to external causes (6 sources)H/O: facial injury; Translations: [Personal history of other (healed) physical injury and trauma]58-57-6543TabnxrzaJtrnk lower respiratory disease (2 sources)Cough; Translations: [Acute cough]39-38-0681LtdjrjdpNslrz nervous system disorders (1 source)Other chronic pain; Translations: [OTHER CHRONIC PAIN]Onset: 29-87-1602HtntvmoKoxug nervous system disorders (1 source)Acute postoperative pain; Translations: [Other acute postprocedural pain]20-81-5418XkgbodjfIkomq non-traumatic joint disorders (18 sources)Shoulder joint pain; Translations: [Pain in right shoulder]Onset: 49-33-0244FczhfadeElzvc nutritional; endocrine; and metabolic disorders (10 sources)Body mass index 30+ - obesity; Translations: [Obesity, unspecified] ChronicOther nutritional; endocrine; and metabolic disorders (6 sources)Obese class II; Translations: [Body mass index (BMI) 36.0-36.9, adult]ChronicOther nutritional; endocrine; and metabolic disorders (9 sources)Obese class I; Translations: [Body mass index 32.0-32.9, adult]Onset: 06-24-9886JfjpchjEjqmi nutritional; endocrine; and metabolic disorders (3 sources)Simple obesity ; Translations: [Other obesity due to excess calories] Onset: 23-20-2317CljlrcaFifwd skin disorders (14 sources)Other hypertrophic disorders of the skin; Translations: [Unspecified hypertrophic and atrophic conditions of skin]57-13-6266JibcvfdxSilri skin disorders (3 sources)Hypertrophic condition of skin; Translations: [Other hypertrophic disorders of the skin]EpisodicOther skin disorders (5 sources)Skin tag; Translations: [Other hypertrophic disorders of the skin] 91-55-6052PzbbzxdkRnzoe upper respiratory disease (12 sources)Rhinitis; Translations: [Chronic rhinitis]ChronicOther upper respiratory disease (3 sources)Seasonal allergic rhinitis; Translations: [Other seasonal allergic rhinitis]Onset: 31-17-9360VomzdfmMajmv upper respiratory disease (2 sources)Allergic rhinitis; Translations: [Allergic rhinitis, unspecified] 28-50-1716BtqyryaEpusr upper respiratory disease (6 sources)Polyp of nasal cavity and/or nasal sinus; Translations: [Nasal polyp, unspecified]93-29-6791MsvwjkqsXlxih upper respiratory disease (6 sources)Deviated nasal septum; Translations: [Deviated nasal septum] 15-19-3280ClidatkuAwkdh upper respiratory disease (4 sources)Hypertrophy of nasal turbinates; Translations: [Hypertrophy of nasal turbinates]73-63-2140NewqgkpuCykzs upper respiratory infections (20 sources)Chronic maxillary sinusitis; Translations: [Chronic maxillary sinusitis]Onset: 528077-53-7120GozmhbyKaxnk upper respiratory infections (6 sources)Acute maxillary sinusitis; Translations: [Acute maxillary sinusitis, unspecified]93-10-0972ZeslwnlzBqjmzk media and related conditions (3 sources)Non-suppurative otitis media; Translations: [Unspecified nonsuppurative otitis media, right ear]EpisodicResidual codes; unclassified (3 sources)Family history of malignant neoplasm of gastrointestinal tract; Translations: [Family history of malignant neoplasm of digestive organs]Episodic Residual codes; unclassified (4 sources)Family history of prostate cancer; Translations: [Family history of malignant neoplasm of prostate]26-75-0931PcjwcehhEspbwoyc codes; unclassified (2 sources)Family history of malignant neoplasm of prostate; Translations: [Family history of malignant neoplasm of prostate]08-46-0311PvmimqlkPttthwmxnfp failure; insufficiency; arrest (adult) (12 sources)Chronic respiratory failure; Translations: [Chronic respiratory failure with hypoxia]ChronicSpondylosis; intervertebral disc disorders; other back problems (20 sources)Lumbar spondylosis; Translations: [Spondylosis without myelopathy or radiculopathy, lumbar region]Onset: 287695-98-5866FofikaeSecbwkb (16 sources)Syncope and collapse; Translations: [Syncope and collapse]Onset: 63-62-0009IcxpthapBfwtnuweqbdn (4 sources)LOW BACK PAIN, UNSPECIFIED; Translations: [LOW BACK PAIN, UNSPECIFIED]Onset: 28-46-0382Qqiipjgiuudo (3 sources)History of disease caused by Severe acute respiratory syndrome coronavirus 2 (situation); Translations: [Personal history of COVID-19]Viral infection (9 sources)Viral infection, unspecified; Translations: [Recurrent herpes simplex labialis]EpisodicViral infection (3 sources)Disease caused by 2019-nCoV; Translations: [COVID-19] Past or Other Problems Problem ClassificationProblemDateDocumented DateEpisodic/ChronicAbdominal pain (20 sources)Generalized abdominal pain; Translations: [Generalized abdominal pain]Onset: 380048-38-3924KtcmcwgcHrrbwspl reactions (3 sources)Contact dermatitis; Translations: [Contact dermatitis and other eczema, due to unspecified cause]Onset: 91-02-0074OumkonosJpszwedmn infection; unspecified site (3 sources)Bacterial infectious disease; Translations: [Bacterial infection, unspecified, in conditions classified elsewhere and of unspecified site]Onset: 56-43-0646XjmiswdbYxwhszermufp of device; implant or graft (2 sources)Fracture of pelvis following insertion of orthopedic implant, joint prosthesis, or bone plate; Translations: [Fracture of pelvis following insertion of orthopedic implant, joint prosthesis, or bone plate]Onset: 05-23-2024 EpisodicDisorders of lipid metabolism (20 sources)Hyperlipidemia; Translations: [Hyperlipidemia, unspecified]Onset: 12-08-2023 Resolved: 982477-60-4447ZmdzfigOytndtvyo hypertension (20 sources)Benign essential hypertension; Translations: [Essential hypertension, benign]Onset: 01-10-2019 Resolved: 100430-97-7955LgbcieqWcqtkva on above:Problem List clean-up per request of Phys. EHR CmteFluid and electrolyte disorders (3 sources)Dehydration; Translations: [Dehydration]Onset: 51-84-3083Aqsrfplu Headache; including migraine (3 sources)Cough headache syndrome; Translations: [Primary cough headache]Onset: 16-92-7774ZqtibvpaWsqlnfasgkifv and screening for infectious disease (20 sources)Contact with or exposure to other viral diseases; Translations: [Contact with and (suspected) exposure to covid-19]Onset: 08-26-2020 Resolved: 839782-68-1145NpgvmvdtRvmoitjnp (3 sources)Upper respiratory tract infection due to Influenza; Translations: [Influenza due to unidentified influenza virus with other respiratory manifestations]Onset: 68-63-9870HusazhuuYvjbl disorders and dislocations; trauma-related (18 sources)Traumatic pubic symphysis separation; Translations: [Traumatic rupture of symphysis pubis, initial encounter]Onset: 08-07-2024 Resolved: 357116-48-0811YyfsedimEulrwqi (3 sources)Tinea cruris; Translations: [Tinea cruris]Onset: 14-28-9862Gyhneivy Open wounds of extremities (3 sources)Open wound of hand except fingers without complication; Translations: [Open wound of hand except finger(s) alone, without mention of complication] Onset: 96-79-9869FraipgbdDgwnq circulatory disease (2 sources)Elevated blood-pressure reading, without diagnosis of hypertension; Translations: [ELEVATED BP READING W/O DX HTN]Onset: 75-88-3830EbncitqlIcdop connective tissue disease (3 sources)Ganglion of joint; Translations: [Ganglion of joint]Onset: 01-10-2019 EpisodicOther connective tissue disease (3 sources)Cramp in limb; Translations: [Cramp of limb]Onset: 35-69-2792Uikgcxbq Other fractures (20 sources)Fracture of pelvis; Translations: [Fracture of unspecified parts of lumbosacral spine and pelvis, initial encounter for closed fracture]Onset: 08-07-2024 Resolved: 118183-49-5297PzymkdaeGsaay lower respiratory disease (6 sources)Cough; Translations: [Cough, unspecified]Onset: 18-32-4693Xkpekxoq Other male genital disorders (20 sources)Pain in scrotum ; Translations: [Scrotal pain]Onset: 11-30-2023 Resolved: 503096-00-1894BppgshrnKtklr nervous system disorders (2 sources)Other acute postprocedural pain; Translations: [Other acute postprocedural pain]Onset: 67-21-0256YsffabxhCqymv non-traumatic joint disorders (4 sources)Pain in left hip; Translations: [PAIN IN LEFT HIP]Onset: 04-20-2022 EpisodicOther non-traumatic joint disorders (3 sources)Arthralgia of the ankle and/or foot; Translations: [Pain in joint, ankle and foot]Onset: 46-91-0241QleqbyhlZzfiz non-traumatic joint disorders (20 sources)Hip pain; Translations: [Pain in right hip]Onset: 11-30-2023 Resolved: 659824-42-6699HxtglawhDfdhh nutritional; endocrine; and metabolic disorders (20 sources)Obesity; Translations: [Obesity, unspecified]Onset: 12-08-2023 Resolved: 968731-29-8767FifadlxJuffmqyt codes; unclassified (3 sources)Family history of diabetes mellitus; Translations: [Family history of diabetes mellitus]Onset: 94-25-6767ZzgaprxwZtgekqpz codes; unclassified (3 sources)C/O - a back symptom; Translations: [Other symptoms referable to back]Onset: 79-88-5622OwzcokwsJtjvsoqp codes; unclassified (3 sources)Insomnia; Translations: [Insomnia, unspecified]Onset: 08-02-2018 EpisodicResidual codes; unclassified (18 sources)Family history of cancer of colon; Translations: [Family history of malignant neoplasm of digestiveorgans]Onset: 08-07-2024 Resolved: 921024-27-2274TxwppinkFytbxgr on above:Problem List clean-up per request of Phys. EHR CmteSpondylosis; intervertebral disc disorders; other back problems (20 sources)Sciatica; Translations: [Sciatica, left side]Onset: 05-08-2018 Resolved: 176335-16-6443IwuswolzAsevzsd and strains (6 sources)Lumbar sprain; Translations: [Sprain of ligaments of lumbar spine, initial encounter]Onset: 42-48-2028VrqbfpvlAhkvfeulrlfw (1 source)LOW BACK PAIN, UNSPECIFIED; Translations: [LOW BACK PAIN, UNSPECIFIED] Onset: 54-92-3601Rhnkmxdgavpd (3 sources)Tetanus-diphtheria [Td] [DT]; Translations: [Tetanus-diphtheria [Td] [DT]]Onset: 65-26-6910Ylfilimbdlva (1 source)Lumbar pain M54.50 Results Test NameValueInterpretationReference RangeFacilityBasophils Auto (Bld) [#/Vol] on 63-66-5153Zhxriwjyi (Bld) [#/Vol]Automated basophil count0.0-0.1FWhite HospitalBasophils (Bld) [#/Vol]0.1 10 3/uL0.0-0.1FWhite HospitalBasophils/100 WBC Auto (Bld)on 49-29-7516Pquuqbede/100 WBC (Bld)Automated basophil %0.2-2.0[facility] Basophils/100 WBC (Bld)0.8 %0.2-2.0[facility] CenterCT MAXILLOFACIAL WO IV CONTRASTon 88-29-0094AI MAXILLOFACIAL WO IV CONTRASTExam: CT MAXILLOFACIAL WO [...] Keller, DONormalNot AvailableCholesterol in LDL Calc [Mass/Vol]on 00-52-8304Frxqtuiqqkp in LDL [Mass/Vol]Cholesterol in LDL [Mass/volume] in Serum or Plasma by calculationOhiohealth Arthur G.[facility]. [facility], [facility], [facility] Center Comment on above:<100 mg/dl VJWBKHI757-804 mg/dl NEAR OR ABOVE LIZUQEZ885-610 mg/dl BORDERLINE QZBK772-055 mg/dl HIGH>190 mg/dl VERY HIGHCholesterol in LDL [Mass/Vol]80.0 mg/dLOhiohealth Arthur G.H. Bing, Md, Cancer CenterComment on above:<100 mg/dl BBPKZNO671-447 mg/dl NEAR OR ABOVE UCKRQAN919-157 mg/dl BORDERLINE VVAJ271-329 mg/dl HIGH>190 mg/dl VERY HIGHCholesterol in VLDL Calc [Mass/Vol]on 11-30-2024 Cholesterol in VLDL [Mass/Vol]Cholesterol in VLDL [Mass/volume] in Serum or Plasma by calculationOhiohealth Arthur G.[facility]. [facility], Md, Cancer CenterCholesterol in VLDL [Mass/Vol]17.0 mg/dLOhiohealth Arthur G.H. Bing, Md, Cancer CenterEosinophils/100 WBC Auto (Bld)on 91-01-1523Zoceieagbbk/100 WBC (Bld)Automated eosinophil %0.9-7.0 [facility] CenterEosinophils/100 WBC (Bld)3.5 %0.9-7.0[facility] Cancer CenterErythrocyte distribution width Auto (RBC) [Ratio]on 00-37-6089Whbilirwoqw distribution width (RBC) [Ratio]Erythrocyte distribution width [Ratio] by Automated count11.0-15.0[facility] Erythrocyte distribution width (RBC) [Ratio]14.3 %11.0-15.0[facility] CenterEstimated glomerular filtration rate (GFR) non- Americanon 85-51-2888GRC/1.73 sq M.predicted among non-blacks MDRD (S/P/Bld) [Vol rate/Area]Estimated glomerular filtration rate (GFR) non->=60 mL/min/1.73m 2FWhite HospitalGFR/1.73 sq M.predicted among non-blacks MDRD (S/P/Bld) [Vol rate/Area]mL/min/{1.73_m2}>=60 mL/min/1.73m 2 [facility] CenterGlobulin Calc (S) [Mass/Vol]on 11-30-2024 Globulin (S) [Mass/Vol]Serum globulin measurement by calculation (mass/volume) [facility] CenterGlobulin (S) [Mass/Vol]3.0 g/dLOhiohealth Arthur G.H. Bing, Md, Cancer CenterHematocrit Auto (Bld) [Volume fraction]on 11-30-2024 Hematocrit (Bld) [Volume fraction]Hematocrit [Volume Fraction] of Blood by Automated rqtgbLmb32.0-54.0[facility] Cancer CenterHematocrit (Bld) [Volume fraction]37.7 %Low42.0-54.0[facility] CenterHemoglobin [Mass/volume] in Bloodon 79-19-9213Rzyardvjgh (Bld) [Mass/Vol]Hemoglobin [Mass/volume] in TalkzXws40.0-18.0[facility] CenterHemoglobin (Bld) [Mass/Vol]11.8 g/dLLow14.0-18.0[facility] CenterLaboratory - Chemistry and Chemistry - challengeon 65-09-7919Sfeqhsl [Mass/Vol]3.5 g/dL 3.4-5.0[facility] CenterALP [Catalytic activity/Vol]61 U/L46-116 [facility] CenterALT [Catalytic activity/Vol]19 U/L16-63 [facility] CenterAST [Catalytic activity/Vol]16 U/L15-37 [facility] CenterBilirubin [Mass/Vol]0.4 mg/dL0.2-1.0[facility] CenterCalcium [Mass/Vol]8.5 mg/dL8.5-10.1FWhite HospitalChloride [Moles/Vol]106 mmol/H57-789WvrzfrscpOhiohealth Arthur G.H. Bing, Md, Cancer CenterCholesterol [Mass/Vol]129 mg/dL<=200[facility] Cholesterol in HDL [Mass/Vol]32 mg/gUPup96-16SmrwsyzwmOhiohealth Arthur G.[facility]. [facility] Comment on above:> or =60 mg/dl - LOW CARDIOVASCULAR RISK<40 mg/dl - HIGH CARDIOVASCULAR RISKCO2 [Moles/Vol]28.9 mmol/L21.0-32.0[facility] CenterCreatinine [Mass/Vol]0.93 mg/dL0.70-1.30[facility] GFR/1.73 sq M.predicted MDRD (S/P/Bld) [Vol rate/Area]mL/min/{1.73_m2}>=60 mL/min/1.73m 2FWhite HospitalGlucose [Mass/Vol]92 mg/mC68-574 [facility] CenterPotassium [Moles/Vol]4.4 mmol/L3.5-5.1FWhite HospitalProtein [Mass/Vol]6.5 g/dL6.4-8.2FAshtabula County Medical Centerodium [Moles/Vol]141 mmol/H658-648IwhldbctiOhiohealth Arthur G.H. Bing, Md, Cancer CenterTriglyceride [Mass/Vol]85 mg/dL<=150[facility] Cancer CenterUrea nitrogen [Mass/Vol]10.0 mg/dL7.0-18.0[facility] Cancer CenterUrea nitrogen/Creatinine [Mass ratio]10.8 mg/mgOhiohealth Arthur G.H. [facility], Md, Cancer Center Laboratory - Hematology and Cell countson 66-74-1427Vmjcgokx granulocytes/100 WBC (Bld)0.3 %0.0-0.5FWhite HospitalLeukocytes [#/volume] corrected for nucleated erythrocytes in Blood by Automated counon 51-58-9976VGJ corrected for nucl RBC Auto (Bld) [#/Vol]Leukocytes [#/volume] corrected for nucleated erythrocytes in Blood by Automated coun4.0-11.0[facility] Cancer CenterWBC corrected for nucl RBC Auto (Bld) [#/Vol]7.2 10 3/uL4.0-11.0 [facility] CenterLymphocytes Auto (Bld) [#/Vol]on 11-30-2024 Lymphocytes (Bld) [#/Vol]Lymphocytes [#/volume] in Blood by Automated count 1.2-3.8[facility], Cancer CenterLymphocytes (Bld) [#/Vol]1.8 10 3/uL 1.2-3.8[facility] Cancer CenterLymphocytes/100 WBC Auto (Bld)on 61-75-0404Hadnhgqjkdr/100 WBC (Bld)Lymphocytes/100 leukocytes in Blood by Automated count20.5-60.0[facility] Cancer CenterLymphocytes/100 WBC (Bld)24.7 %20.5-60.0[facility] HospitalH Auto (RBC) [Entitic mass]on 06-61-1424BKN (RBC) [Entitic mass]MCH [Entitic mass] by Automated count Low25.9-34.0[facility] (RBC) [Entitic mass]24.7 pgLow 25.9-34.0[facility] Cancer CenterMCHC Auto (RBC) [Mass/Vol]on 13-05-7529IWSA (RBC) [Mass/Vol]MCHC [Mass/volume] by Automated count29.9-35.2 [facility] HospitalHC (RBC) [Mass/Vol]31.3 g/dL29.9-35.2 [facility] HospitalV Auto (RBC) [Entitic vol]on 77-75-7015KGL (RBC) [Entitic vol]MCV [Entitic volume] by Automated lvtuaZdh53.0-94.0[facility] HospitalV (RBC) [Entitic vol]79.0 fLLow80.0-94.0[facility] Cancer CenterMonocytes Auto (Bld) [#/Vol]on 44-99-6840Djtadtyqr (Bld) [#/Vol]Automated blood monocyte count0.3-0.8[facility] Monocytes (Bld) [#/Vol]0.6 10 3/uL0.3-0.8[facility] Monocytes/100 WBC Auto (Bld)on 90-47-7479Ogvcpvife/100 WBC (Bld)Automated monocyte %1.7-12.0[facility] CenterMonocytes/100 WBC (Bld)8.4 % 1.7-12.0[facility] Cancer CenterNeutrophils Auto (Bld) [#/Vol]on 62-61-4578Rgheajqezmy (Bld) [#/Vol]Neutrophils [#/volume] in Blood by Automated count1.4-6.5[facility] CenterNeutrophils (Bld) [#/Vol]4.5 10 3/uL1.4-6.5FWhite HospitalNeutrophils/100 WBC Auto (Bld)on 39-39-0406Bxbnkqqbmag/100 WBC (Bld)Automated neutrophil %43.0-75.0[facility] CenterNeutrophils/100 WBC (Bld)62.3 %43.0-75.0[facility] CenterNo Panel Informationon 38-92-9531Uygzcrpoxmo # (Auto)0.3 10 3/uL0.0-0.7FWhite HospitalImmature Granulocyte # (Auto)0.02 10 3/uL0.00-0.03[facility] CenterProstate Specific Antigen Screen2.52 ng/mL<=4.00[facility], Cancer CenterPlatelet mean volume Auto (Bld) [Entitic vol]on 75-97-9213Zcttuudn mean volume (Bld) [Entitic vol] Platelet mean volume [Entitic volume] in Blood by Automated countLow9.5-13.5 [facility] CenterPlatelet mean volume (Bld) [Entitic vol]9.0 fL Low9.5-13.5FWhite HospitalPlatelets Auto (Bld) [#/Vol]on 33-19-1501Odhbuarze (Bld) [#/Vol]Platelets [#/volume] in Blood by Automated awxzk307-542HbytltyuuOhiohealth Arthur G.H. Bing, Md, Cancer CenterPlatelets (Bld) [#/Vol]302 10 3/uL 150-450[facility], Cancer CenterRBC Auto (Bld) [#/Vol]on 93-80-1233ZDL (Bld) [#/Vol]Erythrocytes [#/volume] in Blood by Automated count4.70-6.10 [facility], Cancer CenterRBC (Bld) [#/Vol]4.77 10 6/uL4.70-6.10[facility] Hospitalerum or plasma albumin/globulin mass ratioon 11-30-2024 Albumin/Globulin [Mass ratio]Serum or plasma albumin/globulin mass ratio [facility] CenterAlbumin/Globulin [Mass ratio]1.2 {ratio} [facility] Hospitalerum or plasma anion gap determinationon 00-87-5362Odcxz gap [Moles/Vol]Serum or plasma anion gap determinationOhiohealth Arthur G.H. Bing, Md, Cancer CenterAnion gap [Moles/Vol]10.5 mmol/LFAshtabula County Medical Centererum or plasma total cholesterol/high density lipoprotein (HDL) cholesterol mass nirav 01-52-2839Nyrmrfgffvb.total/Cholesterol in HDL [Mass ratio]Serum or plasma total cholesterol/high density lipoprotein (HDL) cholesterol mass Cherrington HospitalComment on above:3.3 - 4.4 LOW RISK4.4 - 7.1 AVERAGE RISK7.1 - 11.0 MODERATE RISK>11.0 HIGH RISK Cholesterol.total/Cholesterol in HDL [Mass ratio]4.0 {ratio}[facility], Cancer CenterComment on above:3.3 - 4.4 LOW RISK4.4 - 7.1 AVERAGE RISK7.1 - 11.0 MODERATE RISK>11.0 HIGH RISKXR PELVIS 3+ VIEWSon 72-60-4494XH PELVIS 3+ VIEWSInterpreted By: Sushma Black, STUDY: Pelvis, 5 views. INDICATION: Signs/Symptoms:pelvis fracture. COMPARISON: 05/23/2024. ACCESSION NUMBER(S): [id number] ORDERING CLINICIAN: ADAM NAVARRO FINDINGS: No acute [...] Sushma Black 11/22/2024 1:23 PM Dictation workstation: [id number] Community HospitalComment on above:Order Comment: 5 view of the pelvisInfluenza virus B Ag [Presence] in Upper respiratory specimen by Rapid immunoassayon 08-39-2829LVUAC Ag IA.rapid Ql (Nph)Influenza virus B Ag [Presence] in Upper respiratory specimen by Rapid immunoassayOhiohealth Arthur G.H. Bing, Md, Cancer CenterNo Panel Informationon 08-88-6407Jezvneukm Type A (Rapid)NegativeFirelands Regional Medical CenterPOC SARS CoV-2 AntigenNegativeOhiohealth Arthur [facility] Basophils Auto (Bld) [#/Vol]on 31-78-2836Plmzjdjpo (Bld) [#/Vol]Automated basophil count0.0-0.1FWhite HospitalBasophils/100 WBC Auto (Bld)on 78-23-5745Bqycoijkm/100 WBC (Bld)Automated basophil %0.2-2.0[facility] CenterEosinophils/100 WBC Auto (Bld)on 08-29-2024 Eosinophils/100 WBC (Bld)Automated eosinophil %0.9-7.0[facility] Cancer CenterErythrocyte distribution width Auto (RBC) [Ratio]on 84-31-6131Yrtrxhjgkva distribution width (RBC) [Ratio]Erythrocyte distribution width [Ratio] by Automated count11.0-15.0[facility] CenterEstimated glomerular filtration rate (GFR) non- Americanon 21-02-6314DHT/1.73 sq M.predicted among non-blacks MDRD (S/P/Bld) [Vol rate/Area]Estimated glomerular filtration rate (GFR) non->=60 mL/min/1.73m 2FWhite HospitalHematocrit Auto (Bld) [Volume fraction]on 94-44-7777Ehlzmcjwqh (Bld) [Volume fraction]Hematocrit [Volume Fraction] of Blood by Automated countLow 42.0-54.0[facility], Cancer CenterHemoglobin [Mass/volume] in Bloodon 17-32-1258Zpejifydvc (Bld) [Mass/Vol]Hemoglobin [Mass/volume] in BloodLow 14.0-18.0[facility] CenterLaboratory - Chemistry and Chemistry - challengeon 47-00-1101Oejcuvo [Mass/Vol]8.7 mg/dL8.5-10.1FWhite HospitalChloride [Moles/Vol]102 mmol/O12-375FeyjykhmvOhiohealth Arthur G.H. Bing, Md, Cancer CenterCO2 [Moles/Vol]27.9 mmol/L21.0-32.0[facility] Creatinine [Mass/Vol]1.20 mg/dL0.70-1.30[facility] GFR/1.73 sq M.predicted MDRD (S/P/Bld) [Vol rate/Area]mL/min/{1.73_m2}>=60 mL/min/1.73m 2FWhite HospitalGlucose [Mass/Vol]113 mg/dLHigh 74-106[facility] CenterPotassium [Moles/Vol]4.0 mmol/L3.5-5.1 [facility] Hospitalodium [Moles/Vol]138 mmol/I686-135ItcnyafayOhiohealth Arthur G.H. Bing, Md, Cancer CenterUrea nitrogen [Mass/Vol]10.0 mg/dL7.0-18.0[facility] Cancer CenterUrea nitrogen/Creatinine [Mass ratio]8.3 mg/mgOhiohealth Arthur G.H. Bing, Md, Cancer CenterLaboratory - Hematology and Cell countson 08-29-2024 Immature granulocytes/100 WBC (Bld)0.4 %0.0-0.5FWhite Hospital Leukocytes [#/volume] corrected for nucleated erythrocytes in Blood by Automated counon 55-84-2816QPR corrected for nucl RBC Auto (Bld) [#/Vol]Leukocytes [#/volume] corrected for nucleated erythrocytes in Blood by Automated counHigh 4.0-11.0[facility], Cancer CenterLymphocytes Auto (Bld) [#/Vol]on 39-03-3080Xympdrgfbix (Bld) [#/Vol]Lymphocytes [#/volume] in Blood by Automated count1.2-3.8[facility], Cancer CenterLymphocytes/100 WBC Auto (Bld)on 56-30-5038Gjfzxvwsuzt/100 WBC (Bld)Lymphocytes/100 leukocytes in Blood by Automated lzdivExc27.5-60.0[facility] Cancer CenterMCH Auto (RBC) [Entitic mass]on 82-79-9626GLL (RBC) [Entitic mass]MCH [Entitic mass] by Automated xlbunSzu87.9-34.0[facility] CenterMCHC Auto (RBC) [Mass/Vol]on 56-92-6528ZSGB (RBC) [Mass/Vol]MCHC [Mass/volume] by Automated count29.9-35.2FWhite HospitalMCV Auto (RBC) [Entitic vol]on 97-22-1341RED (RBC) [Entitic vol]MCV [Entitic volume] by Automated countLow 80.0-94.0[facility] CenterMonocytes Auto (Bld) [#/Vol]on 74-16-2398Qoyiirkyh (Bld) [#/Vol]Automated blood monocyte count0.3-0.8[facility] Cancer CenterMonocytes/100 WBC Auto (Bld)on 35-79-3057Ytzxhafqe/100 WBC (Bld)Automated monocyte %1.7-12.0[facility] Neutrophils Auto (Bld) [#/Vol]on 22-02-0917Ipxdyclcnhs (Bld) [#/Vol]Neutrophils [#/volume] in Blood by Automated countHigh1.4-6.5FWhite HospitalNeutrophils/100 WBC Auto (Bld)on 24-42-1204Bymkiblnlrd/100 WBC (Bld) Automated neutrophil %High43.0-75.0[facility] CenterNo Panel Informationon 94-73-7658Lnqcyobxctm # (Auto)0.1 10 3/uL0.0-0.7FWhite HospitalImmature Granulocyte # (Auto)0.05 10 3/uLHigh0.00-0.03[facility] Cancer CenterPlatelet mean volume Auto (Bld) [Entitic vol]on 29-32-3032Masmzile mean volume (Bld) [Entitic vol]Platelet mean volume [Entitic volume] in Blood by Automated count9.5-13.5FWhite Hospital Platelets Auto (Bld) [#/Vol]on 80-21-0434Avacfmros (Bld) [#/Vol]Platelets [#/volume] in Blood by Automated glkuz492-399NbnijahsfOhiohealth Arthur G.H. [facility], [facility], Cancer Center RBC Auto (Bld) [#/Vol]on 58-72-7186ADL (Bld) [#/Vol]Erythrocytes [#/volume] in Blood by Automated count4.70-6.10[facility]. Ruby Memorial Hospitalerum or plasma anion gap determinationon 34-31-1753Dzdtp gap [Moles/Vol]Serum or plasma anion gap determinationOhiohealth Arthur G.H. Bing, Md, Cancer CenterConsulton 08-07-2024 [id number] Prosper Milian 1975 M Date Provider Department Center 08/07/2024 [facility] SURG Second Fl Family History Problem Relation Age of Onset Cancer Father Cancer Paternal Grandfather Family Status - Relation Status Age at Father Paternal Grandfather Level of Service:08588 [place] OFFICE/OP CONSLTJ NEW/EST PT MOD MDM 40 MINUTES Reason for Visit and Comments: Consult [484][facility] TroyNM beba perf SPECT rest str on 43-34-6298NR beba perf SPECT rest strGALION [place] [address] Nuclear Medicine Report Signed Patient: Prosper Milian MR#: [id number] 6 : 1975 Acct:[id number] Age/Sex: 48 / M ADM Date: 07/09/24 Loc: Room: Type: [facility] Attending Dr: Chantal Mart MD [...] Evelyn Macdonald M.D.07/10/2024 2:38 PM Dictation Location: [place] [address] Transcribed By: REBA 07/10/24 1438 Dictated By: Evelyn Macdonald MD 07/10/24 1435 Signed By: 07/10/24 1438[facility] Physician GroupXR PELVIS 3+ VIEWSon 05-23-2024 XR PELVIS 3+ VIEWSInterpreted By: Cesar Solomon, STUDY: XR PELVIS 3+ VIEWS; ; 05/23/2024 1:18 pm INDICATION: Signs/Symptoms:pelvis fracture. ,R10.2 Pelvic and perineal pain COMPARISON: 02/29/2024 ACCESSION NUMBER(S): [id number] ORDERING CLINICIAN: ADAM NAVARRO FINDINGS: Pelvis, five views Postsurgical changes in the pelvis with screw fixation through the sacrum and the plate and screw fixation of the pubic symphysis. No acute fracture seen. Mild degenerative change of the hips IMPRESSION: Postsurgical change about the pelvis without hardware failure. MACRO: None Signed by: Cesar Solomon 05/24/2024 7:08 AM Dictation workstation: [id number] Community HospitalComment on above:Order Comment: 5 view of the pelvisXR PELVIS 3+ VIEWSon 48-79-2386NW PELVIS 3+ VIEWSInterpreted By: Cesar Solomon, STUDY: XR PELVIS 3+ VIEWS; ; 02/29/2024 12:59 pm INDICATION: Signs/Symptoms:pelvis fracture. COMPARISON: 02/01/2020 ACCESSION NUMBER(S): [id number] ORDERING CLINICIAN: ADAM NAVARRO FINDINGS: Pelvis, five views Postsurgical changes in the sacrum and the pubic symphysis with screws and plate and screw fixation respectively. The hardware is intact. There is no malalignment. No significant degenerative changes IMPRESSION: Postsurgical change in the pelvis with intact hardware. No malalignment seen MACRO: None Signed by: Cesar Solomon 03/01/2024 6:55 PM Dictation workstation: [id number] Community HospitalComment on above:Order Comment: 5 view of the pelvisXR PELVIS 3+ VIEWSon 65-17-2364GO PELVIS 3+ VIEWSInterpreted By: Sushma Black, STUDY: Pelvis, 5 views. INDICATION: Signs/Symptoms:pelvis fracture. COMPARISON: 12/28/2023. ACCESSION NUMBER(S): [id number] ORDERING CLINICIAN: ADAM NAVARRO FINDINGS: No acute [...] Sushma Black 02/02/2024 7:24 PM Dictation workstation: [id number] Community HospitalComment on above:Order Comment: 5 view of the pelvisXR PELVIS 3+ VIEWSon 18-48-6906VF PELVIS 3+ VIEWSInterpreted By: Caryn Norman, STUDY: XR PELVIS 3+ VIEWS; ; 12/28/2023 12:54 pm INDICATION: Signs/Symptoms:pain. COMPARISON: Pelvis radiographs dated 12/08/2023. ACCESSION NUMBER(S): [id number] ORDERING CLINICIAN: ADAM NAVARRO FINDINGS: Extensive postsurgical [...] Caryn Norman 12/30/2023 12:52 PM Dictation workstation: [id number] Community HospitalComment on above:Order Comment: 5v pelvis (AP/inlet/outlet/Judet's)Basic metabolic 2000 panelon 88-91-8284Xghff gap [Moles/Vol]12 mmol/L10 - 20 mmol/L [facility] HospitalCalcium [Mass/Vol]8.3 mg/dLLow8.6 - 10.6 mg/dL [facility] HospitalChloride [Moles/Vol]103 mmol/L98 - 107 mmol/L [facility] HospitalCO2 [Moles/Vol]27 mmol/L21 - 32 mmol/L [facility] HospitalCreatinine [Mass/Vol]0.82 mg/dL0.50 - 1.30 mg/dLUnWayne HospitaleGFR- PINFUniBucyrus Community HospitalComment on above:Calculations of estimated GFR are performed using the 2020 CKD-EPI Study Refit equation without therace variable for the IDMS- Traceable creatinine methods. https://jasn.asnjournals.org/content//ASN.2057812060 Glucose [Mass/Vol]103 mg/yYVcny33 - 99 mg/dLUnWayne Hospital Interpretation and review of laboratory resultsAbnoalUMetroHealth Main Campus Medical CenterPotassium [Moles/Vol]3.6 mmol/L3.5 - 5.3 mmol/[facility]riners HospitalSodium [Moles/Vol]138 mmol/L136 - 145 mmol/[facility]riners HospitalUrea nitrogen [Mass/Vol]14 mg/dL6 - 23 mg/dLUnWayne HospitalAnion gap [Moles/Vol]12 mmol/FItmxhl76-86HaadgymazoMcCullough-Hyde Memorial HospitalComment on above:Performed By: #### 28609-8 ####ANASTACIO Hodge ([id number])[facility] ([facility])[address] [place], [place] [address]Hpetzjv [Mass/Vol]8.3 mg/dLLow8.6-10.6UnMcCullough-Hyde Memorial Hospital Comment on above:Performed By: #### 15463-0 ####ANASTACIO Hodge ([id number])[facility] ([facility])[address] [place], [place] [address]Gtgwznvj [Moles/Vol] 103 mmol/PXwiark96-554YtrtjxbaiaMcCullough-Hyde Memorial HospitalComment on above:Performed By: #### 49624-2 ####ANASTACIO Hodge ([id number])[facility] ([facility])[address] [place], [place] [address]FI8 [Moles/Vol]27 mmol/TLtiyae83-74 [facility]ina HospitalComment on above:Performed By: #### 14675-6 ####ANASTACIO Hodge ([id number])[facility] ([facility])[address] [place], [place] [address]Zndlhfloiy [Mass/Vol]0.82 mg/dLNormal0.50-1.30 [facility] HospitalComment on above:Performed By: #### 86450-2 ####ANASTACIO Hodge ([id number])[facility] ([facility])[address] [place], [place] [address]FPA/1.73 sq M.predicted MDRD (S/P/Bld) [Vol rate/Area] mL/min/{1.73_m2}Normal>60UnMcCullough-Hyde Memorial HospitalComment on above:Result Comment: Calculations of estimated GFR are performed using the 2020 CKD-EPI Study Refit equation without the race variable for the IDMS-Traceable creatinine methods. https://jasn.asnjournals.org/content/early//ASN.3273084076Disjmrjdf By: #### 03310-9 ####ANASTACIO Hodge ([id number])[facility] ([facility])[address] [place], [place] [address]Iryqqel [Mass/Vol]103 mg/nVIkdm02-60UyrggmbthbMcCullough-Hyde Memorial HospitalComment on above:Performed By: #### 71235-9 ####ANASTACIO Hodge ([id number])[facility] ([facility])[address] [place], [place] [address]Rpvtslqcr [Moles/Vol]3.6 mmol/LNormal3.5-5.3UnMcCullough-Hyde Memorial HospitalComment on above:Performed By: #### 30149-0 ####ANASTACIO Hodge ([id number])[facility] ([facility])[address] [place], [place] [address]Wjsakd [Moles/Vol]138 mmol/GLacgxm287-051GsjvhaafktMcCullough-Hyde Memorial Hospital Comment on above:Performed By: #### 96968-5 ####ANASTACIO Hodge ([id number])[facility] ([facility])[address] [place], [place] [address]Iotm nitrogen [Mass/Vol]14 mg/dLNormal6-23[facility]ina HospitalComment on above:Performed By: #### 09708-7 ####ANASTACIO Hodge ([id number])[facility] ([facility])[address] [place], [place] [address]FMR W Auto Differential panel (Bld)on 17-72-9969Fxhecjgyu (Bld) [#/Vol]0.05 10*3/[facility] Basophils/100 WBC (Bld)0.6 %0.0 - 2.0 %[facility] Eosinophils (Bld) [#/Vol]0.30 10*3/[facility] Eosinophils/100 WBC (Bld)3.3 %0.0 - 6.0 %[facility] Erythrocyte distribution width (RBC) [Ratio]13.1 %11.5 - 14.5 %[facility] HospitalHematocrit (Bld) [Volume fraction]32.7 %Low41.0 - 52.0 % [facility] HospitalHemoglobin (Bld) [Mass/Vol]10.8 g/dLLow13.5 - 17.5 g/dLUnWayne HospitalImshriners hospitals for children granulocytes (Bld) [#/Vol] 0.13 10*3/[facility] CenterImshriners hospitals for children granulocytes/100 WBC (Bld) 1.4 %High0.0 - 0.9 %[facility] HospitalComment on above:Immature Granulocyte Count (IG) includes promyelocytes, myelocytes and metamyelocytes but does not include bands. Percent differential counts (%) should be interpreted in the context of the absolute cell counts (cells/UL).Interpretation and review of laboratory resultsAbnormalUniBucyrus Community HospitalLymphocytes (Bld) [#/Vol]1.61 10*3/[facility] CenterLymphocytes/100 WBC (Bld) 17.8 %13.0 - 44.0 %[facility] HospitalMCH (RBC) [Entitic mass]28.1 pg26.0 - 34.0 pgUnHighland District Hospital (RBC) [Mass/Vol]33.0 g/dL 32.0 - 36.0 g/dLGeorgetown Behavioral HospitalMCV (RBC) [Entitic vol]85 fL80 - 100 fLUniBucyrus Community HospitalMonocytes (Bld) [#/Vol]0.71 10*3/uL [facility] HospitalMonocytes/100 WBC (Bld)7.8 %2.0 - 10.0 % [facility] HospitalNeutrophils (Bld) [#/Vol]6.25 10*3/[facility] CenterComment on above:Percent differential counts (%) should be interpreted in the context of the absolute cell counts (cells/uL). Neutrophils/100 WBC (Bld)69.1 %40.0 - 80.0 %[facility] Nucleated RBC/100 WBC (Bld) [Ratio]0.0 %[facility] Platelets (Bld) [#/Vol]280 10*3/[facility] CenterRBC (Bld) [#/Vol]3.85 10*6/uLMarietta Memorial HospitalWBC (Bld) [#/Vol]9.1 10*3/[facility] CenterUnWayne Hospital Basophils (Bld) [#/Vol]0.05 x10*3/uLNormal0.00-0.10UnMcCullough-Hyde Memorial HospitalComment on above:Performed By: #### 67778-4 ####ANASTACIO Hodge ([id number])[facility] ([facility])[address] [place], [place] [address]Inkejvoud/100 WBC (Bld)0.6 %Normal0.0-2.0UnMcCullough-Hyde Memorial HospitalComment on above:Performed By: #### 05519-9 ####ANASTACIO Hodge ([id number])[facility] ([facility])[address] [place] [address] Eosinophils (Bld) [#/Vol]0.30 x10*3/uLNormal0.00-0.70[facility] HospitalComment on above:Performed By: #### 09743-1 ####ANASTACIO Hodge ([id number])[facility] ([facility])[address] [place], [place] [address]Sbxllzbegtm/100 WBC (Bld)3.3 %Normal0.0-6.0[facility] HospitalComment on above:Performed By: #### 09449-0 ####ANASTACIO Hodge ([id number])[facility] ([facility])[address] [place] [address] Erythrocyte distribution width (RBC) [Ratio]13.1 %Bfblkj75.5-14.5UnMcCullough-Hyde Memorial HospitalComment on above:Performed By: #### 84269-9 ####ANASTACIO Hodge ([id number])[facility] ([facility])[address] [place], [place] [address]Vnhbqpfati (Bld) [Volume fraction]32.7 %Low41.0-52.0UnMcCullough-Hyde Memorial HospitalComment on above:Performed By: #### 73682-8 ####ANASTACIO Hodge ([id number])[facility] ([facility])[address] [place], [place] [address]Yaokzuiozt (Bld) [Mass/Vol]10.8 g/dLLow13.5-17.5UnMcCullough-Hyde Memorial HospitalComment on above:Performed By: #### 86142-6 ####ANASTACIO Hodge ([id number])[facility] ([facility])[address] [place], [place] [address]Lgycxucg granulocytes (Bld) [#/Vol]0.13 x10*3/uLNormal0.00-0.70UnMcCullough-Hyde Memorial HospitalComment on above:Performed By: #### 89081-0 ####ANASTACIO Hodge ([id number])[facility] ([facility])[address] [place], [place] [address]Mjyygnge granulocytes/100 WBC (Bld)1.4 %High0.0-0.9UnMcCullough-Hyde Memorial HospitalComment on above:Result Comment: Immature Granulocyte Count (IG) includes promyelocytes, myelocytes and metamyelocytes but does not include bands. Percent differential counts (%) should be interpreted in the context of the absolute cell counts (cells/UL).Performed By: #### 70550-4 ####ANASTACIO Hodge ([id number])[facility] ([facility])[address] [place], [place] [address]Vemcfhndslf (Bld) [#/Vol]1.61 x10*3/uLNormal1.20-4.80[facility] HospitalComment on above:Performed By: #### 32501-8 ####ANASTACIO Hodge ([id number])[facility] ([facility])[address] [place], [place] [address]Aawbtrxkdhh/100 WBC (Bld)17.8 %Ahyrjo22.0-44.0UnMcCullough-Hyde Memorial HospitalComment on above:Performed By: #### 16200-3 ####ANASTACIO Hodge ([id number])[facility] ([facility])[address] [place], [place] [address]WGF (RBC) [Entitic mass]28.1 jdZniinv05.0-34.0UnMcCullough-Hyde Memorial HospitalComment on above:Performed By: #### 93833-3 ####ANASTACIO Hodge ([id number])[facility] ([facility])[address] [place], [place] [address]FKSS (RBC) [Mass/Vol]33.0 g/cLVydpzq25.0-36.0UnMcCullough-Hyde Memorial HospitalComment on above:Performed By: #### 78939-5 ####ANASTACIO Hodge (10156)[facility] ([facility])[address] [place], [place] [address]OSB (RBC) [Entitic vol]85 yUJnocfx75-878CvsdejwattMcCullough-Hyde Memorial HospitalComment on above:Performed By: #### 59673-3 ####ANASTACIO Hodge ([id number])[facility] ([facility])[address] [place], [place] [address]Uvseyvhuj (Bld) [#/Vol]0.71 x10*3/uLNormal0.10-1.00[facility] Comment on above:Performed By: #### 89468-8 ####ANASTACIO Hodge ([id number])[facility] ([facility])[address] [place], [place] [address]Pjrfsrufa/100 WBC (Bld)7.8 %Normal2.0-10.0UnMcCullough-Hyde Memorial HospitalComment on above:Performed By: #### 32193-4 ####ANASTACIO Hodge ([id number])[facility] ([facility])[address] [place], [place] [address]Hmshszzzqna (Bld) [#/Vol]6.25 x10*3/uLNormal1.20-7.70UnMcCullough-Hyde Memorial HospitalComment on above:Result Comment: Percent differential counts (%) should be interpreted in the context of the absolute cell counts (cells/uL).Performed By: #### 30453-8 ####ANASTACIO Hodge ([id number])[facility] ([facility])[address] [place], [place] [address]Ynoupmtmefa/100 WBC (Bld)69.1 %Mkqlip78.0-80.0[facility]ina HospitalComment on above:Performed By: #### 48613-0 ####ANASTACIO Hodge ([id number])[facility] ([facility])[address] [place], [place] [address]Akivswmpi RBC/100 WBC (Bld) [Ratio]0.0 /100 WBCsNormal0.0-0.0[facility] HospitalComment on above:Performed By: #### 89053-7 ####ANASTACIO Hodge (35954)[facility] ([facility])[address] [place], [place] [address]Cnukqcjwn (Bld) [#/Vol]280 x10*3/wNYxiroa650-738UceugmzywbMcCullough-Hyde Memorial HospitalComment on above:Performed By: #### 69948-4 ####ANASTACIO Hodge ([id number])[facility] ([facility])[address] [place], [place] [address]EWT (Bld) [#/Vol]3.85 x10*6/uLLow4.50-5.90[facility] HospitalComment on above:Performed By: #### 89116-1 ####AANSTACIO Hodge ([id number])[facility] ([facility])[address] [place], [place] [address]JBD (Bld) [#/Vol]9.1 x10*3/uLNormal4.4-11.3[facility] HospitalComment on above:Performed By: #### 01467-2 ####ANASTACIO Hodge ([id number])[facility] ([facility])[address] [place], [place] [address]Jtqydgwulpxrabbnj, 12-lead PRN ACS symptomsOrdered By: Dustin Lyman on 72-23-6077Hzpxid Pzhh541EZX [facility] Work Phone: [phone] Hjes04kffowijJqdopdixztAultman Hospital Work Phone: [phone] Qzjxuv826 [facility] Work Phone: [phone] Coezj245 [facility] Work Phone: [phone] Zuxxkcka721 [facility] Work Phone: [phone] Rdluw227 [facility] Work Phone: [phone] Dijli12yxgedNxcwjhqlvcSt. [facility] Work Phone: [phone] Jrkqrdlz71 [facility] Work Phone: [phone] Brxntprr802 [facility] Work Phone: [phone] Calculation(Bazett)454 [facility] Work Phone: [phone] Pjehkhjycz688 [facility] Work Phone: [phone] Fmyn0tdipxqxRvtmwcrhmeAultman Hospital Work Phone: [phone] Epug97agfgsugRwzmdryixnGeorgetown [facility]al Hospital Work Phone: T Gpiuru736 msUnWayne Hospital Work Phone: Ventricular Svnr678EXYCsdulnrysxEast [facility] City [facility] Work Phone: UnWayne Hospital Work Phone: Electrocardiogram, 12-lead PRN ACS symptomson 58-33-6558Mghex tachycardia Minimal voltage criteria for LVH, may be normal variant Borderline ECG No previous ECGs available Confirmed by Dustin Lyman ([id number]) on 12/14/2023 2:58:33 PMDustin Rutledge MD - 12/14/2023 Sinus tachycardia Minimal voltage criteria for LVH, may be normal variant Borderline ECG No previous ECGs available Confirmed by Dustin Lyman ([id number]) on 12/14/2023 2:58:33 PM [facility] Work Phone: Magnesiumon [phone] [Mass/Vol]2.11 mg/dL 1.60 - 2.40 mg/dLGeorgetown Behavioral HospitalMagnesium [Mass/Vol]2.11 mg/dL Normal1.60-2.40[facility] HospitalComment on above: Performed By: #### 67427-0 ####ANASTACIO Hodge ([id number])[facility] ([facility])[address] [place] [address]Savkeuegn [Mass/Vol]on 51-28-3675Jnpzzwtvuifllo and review of laboratory resultsNormalUniversSt. Vincent Pediatric Rehabilitation CenterNo Panel Informationon 07-07-9568WekhppngekWayne HospitalBasic metabolic 2000 panelon 73-29-2175Dlbgd gap [Moles/Vol]13 mmol/L10 - 20 mmol/[facility]riners HospitalCalcium [Mass/Vol]8.5 mg/dLLow8.6 - 10.6 mg/dLUnWayne HospitalChloride [Moles/Vol]100 mmol/L98 - 107 mmol/[facility]riners HospitalCO2 [Moles/Vol]28 mmol/L21 - 32 mmol/[facility] HospitalCreatinine [Mass/Vol]0.92 mg/dL0.50 - 1.30 mg/dLUnWayne HospitaleGFR- PINFUMetroHealth Main Campus Medical CenterComment on above:Calculations of estimated GFR are performed using the 2020 CKD-EPI Study Refit equation without therace variable for the IDMS-Traceable creatinine methods. https://jasn.asnjournals.org/content/early/ASN.7855785011 Glucose [Mass/Vol]101 mg/gVMaxb82 - 99 mg/dLUnWayne Hospital Interpretation and review of laboratory resultsAbnoKettering Health HamiltonPotassium [Moles/Vol]3.9 mmol/L3.5 - 5.3 mmol/[facility]riners HospitalSodium [Moles/Vol]137 mmol/L136 - 145 mmol/[facility]riners HospitalUrea nitrogen [Mass/Vol]16 mg/dL6 - 23 mg/dLUnWayne HospitalAnion gap [Moles/Vol]13 mmol/GFoqbgw00-73NdqxzmmwimMcCullough-Hyde Memorial HospitalComment on above:Performed By: #### 63139-7 ####ANASTACIO Hodge ([id number])[facility] ([facility])[address] [place], [place] [address]Kelhgzt [Mass/Vol]8.5 mg/dLLow8.6-10.6UnMcCullough-Hyde Memorial Hospital Comment on above:Performed By: #### 72498-8 ####ANASTACIO Hodge (05963)[facility] ([facility])[address] [place], [place] [address]Gufzuylo [Moles/Vol] 100 mmol/FLlcsie01-917GmnwovvouuMcCullough-Hyde Memorial HospitalComment on above:Performed By: #### 83117-3 ####ANASTACIO Hodge ([id number])[facility] ([facility])[address] [place], [place] [address]YI9 [Moles/Vol]28 mmol/VLgjwqm30-12 [facility] HospitalComment on above:Performed By: #### 63879-2 ####ANASTACIO Hodge ([id number])[facility] ([facility])[address] [place], [place] [address]Idebbtgdym [Mass/Vol]0.92 mg/dLNormal0.50-1.30 [facility] HospitalComment on above:Performed By: #### 64529-4 ####ANASTACIO Hodge ([id number])[facility] ([facility])[address] [place], [place] [address]EZN/1.73 sq M.predicted MDRD (S/P/Bld) [Vol rate/Area] mL/min/{1.73_m2}Normal>60UnMcCullough-Hyde Memorial HospitalComment on above:Result Comment: Calculations of estimated GFR are performed using the 2020 CKD-EPI Study Refit equation without the race variable for the IDMS-Traceable creatinine methods. https://jasn.asnjournals.org/content///ASN.8776066083Eefsyoked By: #### 93714-6 ####ANASTACIO Hodge ([id number])[facility] ([facility])[address] [place], [place] [address]Mkdppoa [Mass/Vol]101 mg/bMGtfu52-52SxxnzittnzMcCullough-Hyde Memorial HospitalComment on above:Performed By: #### 94805-6 ####ANASTACIO Hodge ([id number])[facility] ([facility])[address] [place], [place] [address]Mmvxulola [Moles/Vol]3.9 mmol/LNormal3.5-5.3Medina HospitalComment on above:Performed By: #### 19677-2 ####ANASTACIO Hodge ([id number])[facility] ([facility])[address] [place], [place] [address]Zltexj [Moles/Vol]137 mmol/HRfzozw345-282XnxoltninwMcCullough-Hyde Memorial Hospital Comment on above:Performed By: #### 76077-5 ####ANASTACIO Hodge ([id number])[facility] ([facility])[address] [place], [place] [address]Auen nitrogen [Mass/Vol]16 mg/dLNormal6-23UnMcCullough-Hyde Memorial HospitalComment on above:Performed By: #### 92738-3 ####ANASTACIO Hodge ([id number])[facility] ([facility])[address] [place], [place] [address]WQA W Auto Differential panel (Bld)on [id number] (Bld) [#/Vol]0.06 10*3/[facility] Basophils/100 WBC (Bld)0.5 %0.0 - 2.0 %[facility] Eosinophils (Bld) [#/Vol]0.40 10*3/[facility] Eosinophils/100 WBC (Bld)3.4 %0.0 - 6.0 %[facility] Erythrocyte distribution width (RBC) [Ratio]13.1 %11.5 - 14.5 %[facility] HospitalHematocrit (Bld) [Volume fraction]36.4 %Low41.0 - 52.0 % [facility] HospitalHemoglobin (Bld) [Mass/Vol]12.0 g/dLLow13.5 - 17.5 g/dLUnWayne HospitalImmawadsworth-rittman hospital granulocytes (Bld) [#/Vol] 0.17 10*3/[facility] CenterImshriners hospitals for children granulocytes/100 WBC (Bld) 1.4 %High0.0 - 0.9 %[facility] HospitalCombeaumont hospital on above:Immature Granulocyte Count (IG) includes promyelocytes, myelocytes and metamyelocytes but does not include bands. Percent differential counts (%) should be interpreted in the context of the absolute cell counts (cells/UL).Interpretation and review of laboratory resultsAbnormalUniBucyrus Community HospitalLymphocytes (Bld) [#/Vol]2.07 10*3/[facility] CenterLymphocytes/100 WBC (Bld) 17.5 %13.0 - 44.0 %[facility] (RBC) [Entitic mass]28.1 pg26.0 - 34.0 pgUniversity Hospitals of ClevelandMCHC (RBC) [Mass/Vol]33.0 g/dL 32.0 - 36.0 g/dLGeorgetown Behavioral HospitalMCV (RBC) [Entitic vol]85 fL80 - 100 fLUniBucyrus Community HospitalMonocytes (Bld) [#/Vol]0.87 10*3/uL [facility] HospitalMonocytes/100 WBC (Bld)7.3 %2.0 - 10.0 % [facility] HospitalNeutrophils (Bld) [#/Vol]8.28 10*3/uLOhioHealth Mansfield HospitalComment on above:Percent differential counts (%) should be interpreted in the context of the absolute cell counts (cells/uL). Neutrophils/100 WBC (Bld)69.9 %40.0 - 80.0 %[facility] Nucleated RBC/100 WBC (Bld) [Ratio]0.0 %[facility] Platelets (Bld) [#/Vol]307 10*3/[facility] CenterRBC (Bld) [#/Vol]4.27 10*6/[facility] CenterWBC (Bld) [#/Vol]11.9 10*3/[facility] CenterUnWayne Hospital Basophils (Bld) [#/Vol]0.06 x10*3/uLNormal0.00-0.10Medina HospitalComment on above:Performed By: #### 21156-9 ####ANASTACIO Hodge ([id number])[facility] ([facility])[address] [place], [place] [address]Gmsdofexs/100 WBC (Bld)0.5 %Normal0.0-2.0UnMcCullough-Hyde Memorial HospitalComment on above:Performed By: #### 81509-2 ####ANASTACIO Hodge ([id number])[facility] ([facility])[address] [place] [address] Eosinophils (Bld) [#/Vol]0.40 x10*3/uLNormal0.00-0.70Medina HospitalComment on above:Performed By: #### 44401-0 ####ANASTACIO Hodge ([id number])[facility] ([facility])[address] [place], [place] [address]Ldanraongqs/100 WBC (Bld)3.4 %Normal0.0-6.0Medina HospitalComment on above:Performed By: #### 40109-1 ####ANASTACIO Hodge ([id number])[facility] ([facility])[address] [place] [address] Erythrocyte distribution width (RBC) [Ratio]13.1 %Hwevty15.5-14.5Medina HospitalComment on above:Performed By: #### 86674-2 ####ANASTACIO Hodge ([id number])[facility] ([facility])[address] [place] [address]Nootawcxmw (Bld) [Volume fraction]36.4 %Low41.0-52.0UnMcCullough-Hyde Memorial HospitalComment on above:Performed By: #### 34540-7 ####ANASTACIO Hodge ([id number])[facility] ([facility])[address] [place] [address]Ksshcepzmb (Bld) [Mass/Vol]12.0 g/dLLow13.5-17.5Medina HospitalComment on above:Performed By: #### 03835-3 ####ANASTACIO Hodge ([id number])[facility] ([facility])[address] [place] [address]Aighoabi granulocytes (Bld) [#/Vol]0.17 x10*3/uLNormal0.00-0.70Medina HospitalComment on above:Performed By: #### 23009-2 ####ANASTACIO Hodge ([id number])[facility] ([facility])[address] [place] [address]Wsewpamb granulocytes/100 WBC (Bld)1.4 %High0.0-0.9UnMcCullough-Hyde Memorial HospitalComment on above:Result Comment: Immature Granulocyte Count (IG) includes promyelocytes, myelocytes and metamyelocytes but does not include bands. Percent differential counts (%) should be interpreted in the context of the absolute cell counts (cells/UL).Performed By: #### 41017-1 ####ANASTACIO Hodge ([id number])[facility] ([facility])[address] [place], [place] [address]Wnccrzqqvyy (Bld) [#/Vol]2.07 x10*3/uLNormal1.20-4.80UnMcCullough-Hyde Memorial HospitalComment on above:Performed By: #### 09912-5 ####ANASTACIO Hodge ([id number])[facility] ([facility])[address] [place], [place] [address]Zxufajkwdnj/100 WBC (Bld)17.5 %Dsofbu54.0-44.0Medina HospitalComment on above:Performed By: #### 90662-3 ####ANASTACIO Hodge ([id number])[facility] ([facility])[address] [place], [place] [address]FRD (RBC) [Entitic mass]28.1 sxZmexxf31.0-34.0UnMcCullough-Hyde Memorial HospitalComment on above:Performed By: #### 85117-9 ####ANASTACIO Hodge ([id number])[facility] ([facility])[address] [place], [place] [address]HDJS (RBC) [Mass/Vol]33.0 g/rCNcryay16.0-36.0Medina HospitalComment on above:Performed By: #### 91709-7 ####ANASTACIO Hodge ([id number])[facility] ([facility])[address] [place], [place] [address]QVJ (RBC) [Entitic vol]85 wYYjwsnw89-297UuwckhfjgwMcCullough-Hyde Memorial HospitalComment on above:Performed By: #### 36710-9 ####ANASTACIO Hodge ([id number])[facility] ([facility])[address] [place], [place] [address]Qnqyuhitv (Bld) [#/Vol]0.87 x10*3/uLNormal0.10-1.00[facility] Comment on above:Performed By: #### 95013-8 ####ANASTACIO Hodge ([id number])[facility] ([facility])[address] [place], [place] [address]Uiesabstu/100 WBC (Bld)7.3 %Normal2.0-10.0Medina HospitalComment on above:Performed By: #### 86212-2 ####ANASTACIO Hodge ([id number])[facility] ([facility])[address] [place], [place] [address]Reccjxgxotv (Bld) [#/Vol]8.28 x10*3/uLHigh1.20-7.70UnMcCullough-Hyde Memorial HospitalComment on above:Result Comment: Percent differential counts (%) should be interpreted in the context of the absolute cell counts (cells/uL).Performed By: #### 06734-5 ####ANASTACIO Hodge ([id number])[facility] ([facility])[address] [place], [place] [address]Jazwuxnhcvr/100 WBC (Bld)69.9 %Urticd72.0-80.0Medina HospitalComment on above:Performed By: #### 88004-7 ####ANASTACIO Hodge ([id number])[facility] ([facility])[address] [place], [place] [address]Qdcjjckew RBC/100 WBC (Bld) [Ratio]0.0 /100 WBCsNormal0.0-0.0Medina HospitalComment on above:Performed By: #### 48112-0 ####ANASTACIO Hodge ([id number])[facility] ([facility])[address] [place], [place] [address]Dueecnorh (Bld) [#/Vol]307 x10*3/fZGwmuxv024-242LffhtrbkxeMcCullough-Hyde Memorial HospitalComment on above:Performed By: #### 52024-3 ####ANASTACIO Hodge ([id number])[facility] ([facility])[address] [place], [place] [address]HCD (Bld) [#/Vol]4.27 x10*6/uLLow4.50-5.90UnMcCullough-Hyde Memorial HospitalComment on above:Performed By: #### 18639-2 ####ANASTACIO Hodge ([id number])[facility] ([facility])[address] [place], [place] [address]JSV (Bld) [#/Vol]11.9 x10*3/uLHigh4.4-11.3UnMcCullough-Hyde Memorial HospitalComment on above:Performed By: #### 48704-5 ####ANASTACIO Hodge ([id number])[facility] ([facility])[address] [place] [address]Rwccddqlehs 70-38-1781Tnbzwdnoi [Mass/Vol]2.12 mg/dL1.60 - 2.40 mg/dLUnWayne HospitalMagnesium [Mass/Vol]2.12 mg/dLNormal1.60-2.40UnMcCullough-Hyde Memorial HospitalComment on above:Performed By: #### 33585-5 ####ANASTACIO Hodge ([id number])[facility] ([facility])[address] [place] [address]Xswxwbivu [Mass/Vol]on 43-94-7837Wxucichnbqupqy and review of laboratory resultsNormalUniversSt. Vincent Pediatric Rehabilitation CenterNo Panel Informationon 12-13-2023 [facility] HospitalBasi metabolic 2000 panelon 57-03-3566Kwglw gap [Moles/Vol]14 mmol/L10 - 20 mmol/[facility] HospitalCalcium [Mass/Vol]7.8 mg/dLLow8.6 - 10.6 mg/dLGeorgetown Behavioral HospitalChloride [Moles/Vol]103 mmol/L98 - 107 mmol/[facility] HospitalCO2 [Moles/Vol]25 mmol/L21 - 32 mmol/[facility] HospitalCreatinine [Mass/Vol]0.87 mg/dL0.50 - 1.30 mg/dLUnWayne HospitaleGFR- PINF [facility] HospitalComment on above:Calculations of estimated GFR are performed using the 2020 CKD-EPI Study Refit equation without therace variable for the IDMS-Traceable creatinine methods. https://jasn.asnjournals.org/content//ASN.1228960154 Glucose [Mass/Vol]89 mg/dL74 - 99 mg/dLUnWayne Hospital Interpretation and review of laboratory resultsAbnormalUniBucyrus Community HospitalPotassium [Moles/Vol]3.4 mmol/LLow3.5 - 5.3 mmol/[facility] HospitalSodium [Moles/Vol]139 mmol/L136 - 145 mmol/[facility] HospitalUrea nitrogen [Mass/Vol]14 mg/dL6 - 23 mg/dLUnWayne HospitalAnion gap [Moles/Vol]14 mmol/VLnette66-30JdtlhbkkljMcCullough-Hyde Memorial HospitalComment on above:Performed By: #### 47057-3 ####ANASTACIO Hodge ([id number])[facility] ([facility])[address] [place], [place] [address]Grpgiip [Mass/Vol]7.8 mg/dLLow8.6-10.6UnMcCullough-Hyde Memorial Hospital Comment on above:Performed By: #### 68625-9 ####ANASTACIO Hodge ([id number])[facility] ([facility])[address] [place], [place] [address]Fhbnmres [Moles/Vol] 103 mmol/FHrwmjh52-788CvzmvlxzsxMcCullough-Hyde Memorial HospitalComment on above:Performed By: #### 95201-9 ####ANASTACIO Hodge ([id number])[facility] ([facility])[address] [place], [place] [address]BP7 [Moles/Vol]25 mmol/TBtnxoc89-86 [facility] HospitalComment on above:Performed By: #### 54165-9 ####ANASTACIO Hodge ([id number])[facility] ([facility])[address] [place], [place] [address]Idnhugfybf [Mass/Vol]0.87 mg/dLNormal0.50-1.30 [facility] HospitalComment on above:Performed By: #### 94065-6 ####ANASTACIO Hodge ([id number])[facility] ([facility])[address] [place], [place] [address]ZDV/1.73 sq M.predicted MDRD (S/P/Bld) [Vol rate/Area] mL/min/{1.73_m2}Normal>60UnMcCullough-Hyde Memorial HospitalComment on above:Result Comment: Calculations of estimated GFR are performed using the 2020 CKD-EPI Study Refit equation without the race variable for the IDMS-Traceable creatinine methods. https://jasn.asnjournals.org/content/early//ASN.6374777011Dvnmpnjti By: #### 81000-7 ####ANASTACIO Hodge ([id number])[facility] ([facility])[address] [place], [place] [address]Honzaww [Mass/Vol]89 mg/hMHwuoua14-91MhfaxlhzirMcCullough-Hyde Memorial HospitalComment on above:Performed By: #### 07938-2 ####ANASTACIO Hodge ([id number])[facility] ([facility])[address] [place], [place] [address]Pjnekhiol [Moles/Vol]3.4 mmol/LLow3.5-5.3Medina HospitalComment on above:Performed By: #### 91487-3 ####ANASTACIO Hodge ([id number])[facility] ([facility])[address] [place], [place] [address]Dcsxgv [Moles/Vol]139 mmol/LGpxkkp520-215VkqltcefcaMedina Hospital Comment on above:Performed By: #### 75534-5 ####ANASTACIO Hodge ([id number])[facility] ([facility])[address] [place], [place] [address]Ljvv nitrogen [Mass/Vol]14 mg/dLNormal6-23Medina HospitalComment on above:Performed By: #### 08914-9 ####ANASTACIO Hodge ([id number])[facility] ([facility])[address] [place] [address] W Auto Differential panel (Bld)on 92-80-1902Ggopmyayt (Bld) [#/Vol]0.07 10*3/[facility] Basophils/100 WBC (Bld)0.5 %0.0 - 2.0 %[facility] Eosinophils (Bld) [#/Vol]0.26 10*3/[facility] Eosinophils/100 WBC (Bld)2.0 %0.0 - 6.0 %[facility] Erythrocyte distribution width (RBC) [Ratio]12.8 %11.5 - 14.5 %[facility] HospitalHematocrit (Bld) [Volume fraction]34.8 %Low41.0 - 52.0 % [facility] HospitalHemoglobin (Bld) [Mass/Vol]11.8 g/dLLow13.5 - 17.5 g/dLUnWayne HospitalImmawadsworth-rittman hospital granulocytes (Bld) [#/Vol] 0.10 10*3/[facility] CenterImshriners hospitals for children granulocytes/100 WBC (Bld) 0.8 %0.0 - 0.9 %[facility] HospitalCombeaumont hospital on above:Immature Granulocyte Count (IG) includes promyelocytes, myelocytes and metamyelocytes but does not include bands. Percent differential counts (%) should be interpreted in the context of the absolute cell counts (cells/UL).Interpretation and review of laboratory resultsAbnormalUniBucyrus Community HospitalLymphocytes (Bld) [#/Vol]1.93 10*3/[facility] CenterLymphocytes/100 WBC (Bld) 14.7 %13.0 - 44.0 %[facility]omerene HospitalH (RBC) [Entitic mass]27.8 pg26.0 - 34.0 pgUnHighland District Hospital (RBC) [Mass/Vol]33.9 g/dL 32.0 - 36.0 g/dLUniversity Hospitals of ClevelandMCV (RBC) [Entitic vol]82 fL80 - 100 fLUniBucyrus Community HospitalMonocytes (Bld) [#/Vol]1.09 10*3/[facility] HospitalMonocytes/100 WBC (Bld)8.3 %2.0 - 10.0 % [facility] HospitalNeutrophils (Bld) [#/Vol]9.66 10*3/[facility] Memorial HospitalComment on above:Percent differential counts (%) should be interpreted in the context of the absolute cell counts (cells/uL). Neutrophils/100 WBC (Bld)73.7 %40.0 - 80.0 %[facility] Nucleated RBC/100 WBC (Bld) [Ratio]0.0 %[facility] Platelets (Bld) [#/Vol]296 10*3/[facility] CenterRBC (Bld) [#/Vol]4.25 10*6/[facility] Medical CenterWBC (Bld) [#/Vol]13.1 10*3/[facility] CenterUnWayne Hospital Basophils (Bld) [#/Vol]0.07 x10*3/uLNormal0.00-0.10[facility] HospitalComment on above:Performed By: #### 99065-6 #### ANASTACIO Hodge ([id number]) [facility] ([facility]) [address] [place], [place] [address]Uiwapyswd/100 WBC (Bld)0.5 %Normal0.0-2.0Medina HospitalComment on above:Performed By: #### 76324-1 #### ANASTACIO Hodge (35502) [facility] ([facility]) [address] [place], [place] [address]Rlbpjbpproc (Bld) [#/Vol]0.26 x10*3/uLNormal0.00-0.70 [facility] HospitalComment on above:Performed By: #### 51076-4 #### ANASTACIO Hodge (54496) [facility] ([facility]) [address] [place] [address]Yubgatfuaey/100 WBC (Bld)2.0 %Normal0.0-6.0UnMcCullough-Hyde Memorial HospitalComment on above:Performed By: #### 38193-2 #### ANASTACIO Hodge ([id number]) [facility] ([facility]) [address] [place] [address]Wtbfppsxusd distribution width (RBC) [Ratio]12.8 %Normal 11.5-14.5UnMcCullough-Hyde Memorial HospitalComment on above:Performed By: #### 41965-0 #### ANASTACIO Hodge (46985) [facility] ([facility]) [address] [place] [address]Itzuqmgmtm (Bld) [Volume fraction]34.8 %Low41.0-52.0 [facility] HospitalComment on above:Performed By: #### 01660-3 #### ANASTACIO Hodge (77368) [facility] ([facility]) [address] [place] [address]12[address]Wggialwicm (Bld) [Mass/Vol]11.8 g/dLLow13.5-17.5UnMcCullough-Hyde Memorial HospitalComment on above:Performed By: #### 98792-1 #### ANASTACIO Hodge ([id number]) [facility] ([facility]) [address] [place] [address]Knnjhtwe granulocytes (Bld) [#/Vol]0.10 x10*3/uLNormal 0.00-0.70UnMcCullough-Hyde Memorial HospitalComment on above:Performed By: #### 28756-3 #### ANASTACIO Hodge (27687) [facility] ([facility]) [address] [place] [address]Jqnhriic granulocytes/100 WBC (Bld)0.8 %Normal0.0-0.9 [facility] HospitalComment on above:Result Comment: Immature Granulocyte Count (IG) includes promyelocytes, myelocytes and metamyelocytes but does not include bands. Percent differential counts (%) should be interpreted in the context of the absolute cell counts (cells/UL). Performed By: #### 47108-7 #### ANASTACIO Hodge (90976) [facility] ([facility]) [address] [place], [place] [address]Uyvbfxzvstk (Bld) [#/Vol]1.93 x10*3/uLNormal1.20-4.80 [facility] HospitalComment on above:Performed By: #### 88462-2 #### ANASTACIO Hodge ([id number]) [facility] ([facility]) [address] [place], [place] [address]Mimydlshdvy/100 WBC (Bld)14.7 %Okrrhn08.0-44.0[facility] HospitalComment on above:Performed By: #### 45122-0 #### ANASTACIO Hodge ([id number]) [facility] ([facility]) [address] [place], [place] [address]ISO (RBC) [Entitic mass]27.8 xsMawbux90.0-34.0UnMcCullough-Hyde Memorial HospitalComment on above:Performed By: #### 36657-9 #### ANASTACIO Hodge (85388) [facility] ([facility]) [address] [place], [place] [address]UXTU (RBC) [Mass/Vol]33.9 g/aVAaynwc52.0-36.0UnMcCullough-Hyde Memorial HospitalComment on above:Performed By: #### 96061-3 #### ANASTACIO Hodge (67753) [facility] ([facility]) [address] [place], [place] [address]KSD (RBC) [Entitic vol]82 aSKmbsqx30-775RhjgtjyipnMcCullough-Hyde Memorial HospitalComment on above:Performed By: #### 66354-9 #### ANASTACIO Hodge ([id number]) [facility] ([facility]) [address] [place], [place] [address]Wkwfdgrqx (Bld) [#/Vol]1.09 x10*3/uLHigh0.10-1.00UnMcCullough-Hyde Memorial HospitalComment on above:Performed By: #### 26673-4 #### ANASTACIO Hodge ([id number]) [facility] ([facility]) [address] [place] [address]Qhxymkunn/100 WBC (Bld)8.3 %Normal2.0-10.0[facility] HospitalComment on above:Performed By: #### 48944-3 #### ANASTACIO Hodge ([id number]) [facility] ([facility]) [address] [place] [address]76[address]Thcpnddywud (Bld) [#/Vol]9.66 x10*3/uLHigh1.20-7.70UnMcCullough-Hyde Memorial HospitalComment on above:Result Comment: Percent differential counts (%) should be interpreted in the context of the absolute cell counts (cells/uL).Performed By: #### 76535-3 #### ANASTACIO Hodge ([id number]) [facility] ([facility]) [address] [place] [address]Vlgekrscirk/100 WBC (Bld)73.7 %Hsujow99.0-80.0[facility] HospitalComment on above:Performed By: #### 62400-3 #### ANASTACIO Hodge ([id number]) [facility] ([facility]) [address] [place] [address]Sbsmehcmy RBC/100 WBC (Bld) [Ratio]0.0 /100 WBCsNormal0.0-0.0 [facility] HospitalComment on above:Performed By: #### 56660-2 #### ANASTACIO Hodge ([id number]) [facility] ([facility]) [address] [place] [address]97[address]Igbflxtot (Bld) [#/Vol]296 x10*3/rRNlkwpn373-630YrtncmybiiMcCullough-Hyde Memorial HospitalComment on above:Performed By: #### 94469-1 #### ANASTACIO Hodge ([id number]) [facility] ([facility]) [address] [place] [address] 922[address]YUT (Bld) [#/Vol]4.25 x10*6/uLLow4.50-5.90[facility] HospitalComment on above:Performed By: #### 32979-6 #### ANASTACIO Hodge ([id number]) [facility] ([facility]) [address] [place] [address] 117[address]HUI (Bld) [#/Vol]13.1 x10*3/uLHigh4.4-11.3[facility] HospitalComment on above:Performed By: #### 15391-0 #### ANASTACIO Hodge ([id number]) [facility] ([facility]) [address] [place] [address] 14973Nwhalhwqvzy 13-23-6873Iwjmuytgt [Mass/Vol]1.81 mg/dL1.60 - 2.40 mg/dLGeorgetown Behavioral HospitalMagnesium [Mass/Vol]1.81 mg/dLNormal 1.60-2.40[facility] HospitalComment on above:Performed By: #### 25760-0 #### ANASTACIO Hodge ([id number]) [facility] ([facility]) [address] [place] [address] 912[address]Dwszwqsdw [Mass/Vol]on 43-82-9462Uejiqmdgvkzgqw and review of laboratory resultsNormalUniBucyrus Community HospitalNo Panel Informationon 69-01-3362SdbptzmdsnGeorgetown Behavioral HospitalECG 12-LEADon 04-59-1766PLH 12-LEAD Ventricular Rate 104 Atrial Rate 104 P-R Interval 154 QRS Duration 94 Q-T Interval 346 QTC Calculation(Bazett) 454 P Upland 43 R Upland 9 T Upland 27 QRS Count 17 Q Onset 216 P Onset 139 P Offset 196 T Offset 389 QTC Fredericia 415 Diagnosis Sinus tachycardia Minimal voltage criteria for LVH, may be normal variant Borderline ECG No previous ECGs available Confirmed by Dustin Lyman ([id number]) on 12/14/2023 2:58:33 PMNSt. Elizabeths Medical CenterXR ABDOMEN 1 VIEWon 29-58-6695NO ABDOMEN 1 VIEWInterpreted By: Victoriano Warren and Liller Gregory STUDY: XR ABDOMEN 1 VIEW; 12/11/2023 12:18 pm INDICATION: Signs/Symptoms:Confirm NG tube placement. COMPARISON: 12/10/2023 ACCESSION NUMBER(S): [id number] ORDERING CLINICIAN: MARY GRACE TAVAREZVED FINDINGS: Interval [...] Benny Matamoros. The study was interpreted at [facility] in [facility]. MACRO: none Signed by: Victoriano aWrren 12/11/2023 4:14 PM Dictation workstation: [id number] Community HospitalXR Abdomen Single viewon . Enteric tube projects over the expected location of the gastric antrum/proximal duodenum. 2. Similar gaseous distention of multiple loops of small bowel when compared to prior exam. I personally reviewed the images/study and I agree with the findings as stated above by resident physician, Dr. Benny Matamoros. The study was interpreted at [facility] in [facility]. MACRO: none Signed by: Victoriano Warren 12/11/2023 4:14 PM Dictation workstation: [id number] By: Victoriano Warren and Liller Gregory STUDY: XR ABDOMEN 1 VIEW; 12/11/2023 12:18 pm INDICATION: Signs/Symptoms:Confirm NG tube placement. COMPARISON: 12/10/2023 ACCESSION NUMBER(S): [id number] ORDERING CLINICIAN: MARY GRACE CAI FINDINGS: Interval [...] NG tube placement. COMPARISON: 12/10/2023 ACCESSION NUMBER(S): [id number] ORDERING CLINICIAN: MARY GRACE CAI FINDINGS: Interval [...] Benny Matamoros. The study was interpreted at [facility] in [facility]. MACRO: none Signed by: Victoriano Warren 12/11/2023 4:14 PM Dictation workstation: [id number] [facility] Work Phone: [facility] Work Phone: Radiology Study observation (narrative)[facility] Work Phone: [phone]. Gaseous distention of multiple loops of bowel throughout the abdomen with overall nonobstructive bowel gas pattern. Findings compatible with postoperative ileus. 2. Postsurgical changes as described above. I personally reviewed the images/study and I agree with Leti Dumont DO's (vice president mission integration) findings as stated. This study was interpreted at [place], [place]. MACRO: None Signed by: Victoriano Warren 12/11/2023 11:13 AM Dictation workstation: [id number] By: Victoriano Warren and Stephens Katherine STUDY: XR ABDOMEN 1 VIEW; 12/10/2023 11:52 pm INDICATION: Signs/Symptoms:c/f postop ileus. COMPARISON: Pelvic radiographs 12/08/2023 ACCESSION NUMBER(S): [id number] ORDERING CLINICIAN: ROXANNA BERMAN FINDINGS: Postsurgical changes [...] ileus. COMPARISON: Pelvic radiographs 12/08/2023 ACCESSION NUMBER(S): [id number] ORDERING CLINICIAN: ROXANNA BERMAN FINDINGS: Postsurgical changes [...] agree with Leti Dumont DO's (vice president mission integration) findings as stated. This study was interpreted at [place], [place]. MACRO: None Signed by: Victoriano Warren 12/11/2023 11:13 AM Dictation workstation: [id number] [facility] Work Phone: XR Abdomen Single viewOrdered By: Laci Warren on [id number] Hospital Work Phone: Basic metabolic 2000 panelon [id number] gap [Moles/Vol]14 mmol/L10 - 20 mmol/[facility] HospitalCalcium [Mass/Vol]9.3 mg/dL8.6 - 10.6 mg/dLGeorgetown Behavioral HospitalChloride [Moles/Vol]95 mmol/LLow98 - 107 mmol/[facility] HospitalCO2 [Moles/Vol]31 mmol/L21 - 32 mmol/[facility] HospitalCreatinine [Mass/Vol]1.01 mg/dL0.50 - 1.30 mg/dLUnWayne HospitaleGFR- PINMarymount HospitalComment on above:Calculations of estimated GFR are performed using the 2020 CKD-EPI Study Refit equation without therace variable for the IDMS-Traceable creatinine methods. https://jasn.asnjournals.org/content//ASN.5636018670 Glucose [Mass/Vol]109 mg/bQTdwi70 - 99 mg/dLUnWayne Hospital Interpretation and review of laboratory resultsAbnormalUniBucyrus Community HospitalPotassium [Moles/Vol]4.2 mmol/L3.5 - 5.3 mmol/[facility] HospitalSodium [Moles/Vol]136 mmol/L136 - 145 mmol/[facility] HospitalUrea nitrogen [Mass/Vol]12 mg/dL6 - 23 mg/dLUnWayne HospitalUnWayne HospitalAnion gap [Moles/Vol]14 mmol/LNormal 10-20UnMcCullough-Hyde Memorial HospitalComment on above:Performed By: #### 27087-3 #### ANASTACIO Hodge ([id number]) [facility] ([facility]) [address] [place], [place] [address]Mcmzyma [Mass/Vol]9.3 mg/dLNormal8.6-10.6UnMcCullough-Hyde Memorial HospitalComment on above:Performed By: #### 14283-2 #### ANASTACIO Hodge (94434) [facility] ([facility]) [address] [place], [place] [address]Lkztchlf [Moles/Vol]95 mmol/BBhl64-408LqhwgxtspqMcCullough-Hyde Memorial HospitalComment on above:Performed By: #### 72494-7 #### ANASTACIO Hodge (70432) [facility] ([facility]) [address] [place], [place] [address]JK9 [Moles/Vol]31 mmol/HUrlxze37-96OuxmmaswrzMedina HospitalComment on above:Performed By: #### 61797-1 #### ANASTACIO Hodge ([id number]) [facility] ([facility]) [address] [place] [address] 119[address]Tyopevrqxy [Mass/Vol]1.01 mg/dLNormal0.50-1.30UnMcCullough-Hyde Memorial HospitalComment on above:Performed By: #### 60513-9 #### ANASTACIO Hodge (09058) [facility] ([facility]) [address] [place] [address]DNQ/1.73 sq M.predicted MDRD (S/P/Bld) [Vol rate/Area] mL/min/{1.73_m2}Normal>60UnMcCullough-Hyde Memorial HospitalComment on above:Result Comment: Calculations of estimated GFR are performed using the 2020 CKD-EPI Study Refit equation without the race variable for the IDMS-Traceable creatinine methods. https://jasn.asnjournals.org/content//ASN.3512744831Gbbyefmya By: #### 49423-4 #### ANASTACIO Hodge ([id number]) [facility] ([facility]) [address] [place], [place] [address]Qmlvqwv [Mass/Vol]109 mg/iTBrve73-27EimmzkyvfiMcCullough-Hyde Memorial HospitalComment on above:Performed By: #### 45736-0 #### ANASTACIO Hodge (71641) [facility] ([facility]) [address] [place] [address] 555[address]Oxinhufaz [Moles/Vol]4.2 mmol/LNormal3.5-5.3Medina HospitalComment on above:Performed By: #### 19562-5 #### ANASTACIO Hodge (39782) [facility] ([facility]) [address] [place], [place] [address]Sjstbi [Moles/Vol]136 mmol/UCgzwek183-439OyzjzxxggxMedina HospitalComment on above:Performed By: #### 86902-3 #### ANASTACIO Hodge (87235) [facility] ([facility]) [address] [place], [place] [address]Frld nitrogen [Mass/Vol]12 mg/dLNormal6-23Medina HospitalComment on above:Performed By: #### 99751-8 #### ANASTACIO Hodge (55089) [facility] ([facility]) [address] [place], [place] [address]DFP W Auto Differential panel (Bld)on 04-26-5018Cbhiifpue (Bld) [#/Vol]0.08 10*3/[facility] CenterBasophils/100 WBC (Bld)0.7 %0.0 - 2.0 %[facility] HospitalEosinophils (Bld) [#/Vol] 0.17 10*3/[facility] CenterEosinophils/100 WBC (Bld)1.4 %0.0 - 6.0 %[facility] HospitalErythrocyte distribution width (RBC) [Ratio]13.1 %11.5 - 14.5 %[facility] HospitalHematocrit (Bld) [Volume fraction]40.2 %Low41.0 - 52.0 %[facility] Hemoglobin (Bld) [Mass/Vol]12.9 g/dLLow13.5 - 17.5 g/dLGeorgetown Behavioral HospitalImshriners hospitals for children granulocytes (Bld) [#/Vol]0.11 10*3/[facility] Medical CenterImshriners hospitals for children granulocytes/100 WBC (Bld)0.9 %0.0 - 0.9 %[facility] HospitalCombeaumont hospital on above:Immature Granulocyte Count (IG) includes promyelocytes, myelocytes and metamyelocytes but does not include bands. Percent differential counts (%) should be interpreted in the context of the absolute c ell counts (cells/UL).Interpretation and review of laboratory resultsAbnormal [facility] HospitalLymphocytes (Bld) [#/Vol]1.82 10*3/uLGeorgetown Behavioral HospitalLymphocytes/100 WBC (Bld)15.4 %13.0 - 44.0 %Pomerene HospitalH (RBC) [Entitic mass]27.6 pg26.0 - 34.0 pgUnCleveland Clinic Lutheran HospitalHC (RBC) [Mass/Vol]32.1 g/dL32.0 - 36.0 g/dLPomerene HospitalV (RBC) [Entitic vol]86 fL80 - 100 fLUniBucyrus Community HospitalMonocytes (Bld) [#/Vol]0.86 10*3/[facility] CenterMonocytes/100 WBC (Bld)7.3 %2.0 - 10.0 %[facility] HospitalNeutrophils (Bld) [#/Vol]8.78 10*3/uLBrecksville VA / Crille HospitalComment on above:Percent differential counts (%) should be interpreted in the context of the absolute cell counts (cells/uL).Neutrophils/100 WBC (Bld) 74.3 %40.0 - 80.0 %[facility] HospitalNucleated RBC/100 WBC (Bld) [Ratio]0.0 %[facility] HospitalPlatelets (Bld) [#/Vol]286 10*3/uL [facility] HospitalRBC (Bld) [#/Vol]4.67 10*6/uLGeorgetown Behavioral HospitalWBC (Bld) [#/Vol]11.8 10*3/uLHighGeorgetown Behavioral HospitalUnWayne HospitalBasophils (Bld) [#/Vol]0.08 x10*3/uL Normal0.00-0.10Medina HospitalComment on above: Performed By: #### 82481-8 #### ANASTACIO Hodge (58101) [facility] ([facility]) [address] [place], [place] [address]Tdhftohyu/100 WBC (Bld)0.7 %Normal0.0-2.0UnMcCullough-Hyde Memorial HospitalComment on above:Performed By: #### 19794-7 #### ANASTACIO Hodge (24305) [facility] ([facility]) [address] [place] [address]Njdtvfhrbri (Bld) [#/Vol]0.17 x10*3/uLNormal0.00-0.70 Medina HospitalComment on above:Performed By: #### 35122-5 #### ANASTACIO Hodge (66725) [facility] ([facility]) [address] [place] [address] 386[address]Cwgbulhtipl/100 WBC (Bld)1.4 %Normal0.0-6.0UnMcCullough-Hyde Memorial HospitalComment on above:Performed By: #### 77790-2 #### ANASTACIO Hodge (00695) [facility] ([facility]) [address] [place] [address] 399[address]Igxomsgdfue distribution width (RBC) [Ratio]13.1 %Normal 11.5-14.5UnMcCullough-Hyde Memorial HospitalComment on above:Performed By: #### 48195-0 #### ANASTACIO Hodge (19557) [facility] ([facility]) [address] [place] [address]93[address]Cezldkkdla (Bld) [Volume fraction]40.2 %Low41.0-52.0 Medina HospitalComment on above:Performed By: #### 74255-0 #### ANASTACIO Hodge (87808) [facility] ([facility]) [address] [place] [address] 916[address]Rjoesclkei (Bld) [Mass/Vol]12.9 g/dLLow13.5-17.5UnMcCullough-Hyde Memorial HospitalComment on above:Performed By: #### 53974-7 #### ANASTACIO Hodge (07342) [facility] ([facility]) [address] [place] [address] 90[address]Vasjgryf granulocytes (Bld) [#/Vol]0.11 x10*3/uLNormal 0.00-0.70UnMcCullough-Hyde Memorial HospitalComment on above:Performed By: #### 33473-8 #### ANASTACIO Hodge (05262) [facility] ([facility]) [address] [place] [address] 425[address]Rebbnqal granulocytes/100 WBC (Bld)0.9 %Normal0.0-0.9 Medina HospitalComment on above:Result Comment: Immature Granulocyte Count (IG) includes promyelocytes, myelocytes and metamyelocytes but does not include bands. Percent differential counts (%) should be interpreted in the context of the absolute cell counts (cells/UL). Performed By: #### 12952-7 #### ANASTACIO Hodge (70983) [facility] ([facility]) [address] [place] [address] 765[address]Reydndeawhr (Bld) [#/Vol]1.82 x10*3/uLNormal1.20-4.80 Medina HospitalComment on above:Performed By: #### 20603-1 #### ANASTACIO Hodge (18190) [facility] ([facility]) [address] [place] [address]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 DO Work Phone: [facility] SystemsIqmlqvcuns27-08-3168 13:43-0400Body mass index (BMI) [Ratio]31.19 kg/m2Paul Biedenbach DO Work Phone: [phone]-[facility] SystemsRaowmklgey46-79-6705 13:43-0400Body .33 kgPaul Biedenbach DO Work Phone: [phone])8-[facility] SystemsUtdbzxfdmp23-27-9112 13:23-0400Body jauixs583.88 cmOhio[facility]05-22-2025 13:23-0400Body mass index (BMI) [Ratio]31.4 kg/w8PicnvdrdqOhiohealth [facility]05-22-2025 13:23-0400Body igtvgz193 kgOhiohealth [facility]05-22-2025 13:23-0400Diastolic blood rnlxuoun26 mm[Hg][facility]05-22-2025 13:23-0400 Heart rate91 /minOhiohealth Arthur [facility], [facility], [facility]05-22-2025 13:23-0400Systolic blood xcgmtilb730 mm[Hg][facility]05-06-2025 13:37-0400 Body fzyciq439.9 cmPaul Biedenbach DO Work Phone: [phone] [place], [place] [address]05-06-2025 13:37-0400Body mass index (BMI) [Ratio]31.19 kg/m2Paul Biedenbach DO Work Phone: [phone])[address]05-06-2025 13:37-0400Body jfwsxi849.33 kgPaul Biedenbach DO Work Phone: [phone])[address] [place], [place] [address]04-25-2025 08:27-0400Body rmlkyl724.88 cmOhio[facility]04-25-2025 08:27-0400Body mass index (BMI) [Ratio]32.1 kg/t7PlhbatapaOhiohealth Arthur G.H. [facility], [facility], [facility] Center04-25-2025 08:27-0400Body qscsio726.5 kgOhiohealth [facility]04-25-2025 08:27-0400Diastolic blood joorxllu40 mm[Hg][facility]04-25-2025 08:27-0400 Heart rate87 /[facility]04-25-2025 08:27-0400Systolic blood vqguncdc440 mm[Hg][facility]04-08-2025 14:01-0400 Body urofxz548.9 cmPaul Biedenbach DO Work Phone: [facility] SystemsBcktqctbim80-25-1100 14:01-0400Body mass index (BMI) [Ratio]31.46 kg/m2Paul Biedenbach DO Work Phone: [facility] SystemsEfztajkgrm92-86-0460 14:01-0400Body .23 kgPaul Biedenbach DO Work Phone: [facility] SystemsTdtgrrwzxk18-21-7031 08:25-0400Body lxbyyn913.88 cmOhio[facility]03-14-2025 08:25-0400Body mass index (BMI) [Ratio]31.4 kg/i9JhcpomdbdOhiohealth Arthur [facility]03-14-2025 08:25-0400Body jjynyncbkqi42.2 [degF][facility]03-14-2025 08:25-0400Body .23 kgOhiohealth [facility]. [facility]03-14-2025 08:25-0400Diastolic blood egjhwyoo44 mm[Hg][facility]03-14-2025 08:25-0400 Heart rate76 /[facility]03-14-2025 08:25-0400Systolic blood basbhzwl327 mm[Hg][facility]02-19-2025 10:56-0500 Body gtrolj070.88 cmChantal Mart MD Work Phone: [facility]02-19-2025 10:56-0500 Body mass index (BMI) [Ratio]32.3 kg/p8RnpeygChantal Mart MD Work Phone: [facility]02-19-2025 10:56-0500 Body hyvhiigbiyu20.9 [degF]Chantal Mart MD Work Phone: [facility]02-19-2025 10:56-0500 Body blqofx945.95 kgChantal Mart MD Work Phone: [phone]02-19-2025 10:56-0500 Diastolic blood ppqafnhv61 mm[Hg]Chantal Mart MD Work Phone: [phone])[address] [place], [place] 02[address]402-19-2025 10:56-0500 Heart rate76 /Desi Mart MD Work Phone: [phone])[address] [place], [place] 02[address]402-19-2025 10:56-0500 SaO2% (BldA) [Mass fraction]97 %Chantal Mart MD Work Phone: [phone])[address] [place], [place] 02[address]402-19-2025 10:56-0500 Systolic blood jdtznuof717 mm[Hg]Chantal Mart MD Work Phone: [phone])[address] [place], [place] 02[address]01-27-2025 15:05-0500 Body ctgdsi865.88 cmChantal Mart MD Work Phone: [phone])[address] [place], [place] 02[address]01-27-2025 15:05-0500 Body mass index (BMI) [Ratio]32 kg/f7XcttrsChantal Mart MD Work Phone: 1(421)[address] [place], [place] 02[address]01-27-2025 15:05-0500 Body qedmqf128.04 kgChantal Mart MD Work Phone: 1(740)[address] [place], [place] 02[address]01-27-2025 15:05-0500 Diastolic blood bnowsibw42 mm[Hg]Chantal Mart MD Work Phone: 1(394)[address] [place], [place] 02[address]01-27-2025 15:05-0500 Heart rate90 /Desi Mart MD Work Phone: 1(543)[address] [place], [place] [address]01-27-2025 15:05-0500 Systolic blood zzulgdvo615 mm[Hg]Chantal Mart MD Work Phone: 1(034)[address] [place], [place] 02[address]12-04-2024 11:53-0500 Body cypuzv163.88 cmChantal Mart MD Work Phone: [phone])[address] [place], [place] 02[address]12-04-2024 11:53-0500 Body mass index (BMI) [Ratio]33 kg/f0Avzmto Mart MD Work Phone: [phone])[address]12-04-2024 11:53-0500 Body unoerq179.67 kgChantal Mart MD Work Phone: [phone])[address]12-04-2024 11:53-0500 Diastolic blood ierjgdxz38 mm[Hg]Chantal Mart MD Work Phone: 1([phone])[address]12-04-2024 11:53-0500 Heart rate83 /Desi Mart MD Work Phone: [phone])[address]12-04-2024 11:53-0500 Systolic blood mufnozcj788 mm[Hg]Chantal Mart MD Work Phone: 1(828)[address]11-25-2024 14:38-0500 Body qrcqom102.88 cmChantal Mart MD Work Phone: [phone])[address]11-25-2024 14:38-0500 Body mass index (BMI) [Ratio]33.2 kg/z5VfletbChantal Mart MD Work Phone: [phone])[address]11-25-2024 14:38-0500 Body .13 kgChantal Mart MD Work Phone: [phone])[address]11-25-2024 14:38-0500 Diastolic blood mm[Hg]Chantal Mart MD Work Phone: [phone])[address]11-25-2024 14:38-0500 Heart rate89 /Desi Mart MD Work Phone: 1(525)559-[address] [place], [place] 5[address]111-25-2024 14:38-0500 Systolic blood cebfcoyj007 mm[Hg]Chantal Mart MD Work Phone: [phone])[address]05-15-2024 08:13-0400 Body soedtfnnagx74.5 [degF]Adam Navarro MD Work Phone: [facility]05-15-2024 08:13-0400 Diastolic blood gezngxht53 mm[Hg]Adam Navarro MD Work Phone: 1([phone] [place], [place] 9834905-15-2024 08:13-0400 Heart rate85 /Aida Navarro MD Work Phone: 1(216)[address] [place], [place] 409[address]05-15-2024 08:13-0400 Respiratory rate16 /Aida Navarro MD Work Phone: 1(216)[address] [place], [place] 409[address]05-15-2024 08:13-0400 SaO2% (BldA) [Mass fraction]97 %Adam Navarro MD Work Phone: 1(216)[address]05-15-2024 08:13-0400 Systolic blood mm[Hg]Adam Navarro MD Work Phone: 1(216)[address]05-05-2024 08:33-0400 Body .3 cmAdam Navarro MD Work Phone: 1(216)[address] [place], [place] 409[address]05-05-2024 08:33-0400 Body mass index (BMI) [Ratio]38.76 kg/c3AfritkAdam Navarro MD Work Phone: 1(216)[address] [place], [place] 409[address]05-05-2024 08:33-0400 Body bpqnwa089 kgAdam Navarro MD Work Phone: [phone])[address] [place], [place] 409[address]704-24-2024 13:53-0400 Body .3 cmAdam Navarro MD Work Phone: 1(216)[address]04-24-2024 13:53-0400 Body mass index (BMI) [Ratio]37.66 kg/w7ZejsxtAdam Navarro MD Work Phone: 1(548)[address]04-24-2024 13:53-0400 Body mnetjg127.47 kgAdam Navarro MD Work Phone: 1(786)7-[address] [place], [place] 9834902-12-2024 11:45-0500 Body bmyntg408.88 cmChantal Mart Other [employer] Other 02-12-2024 11:45-0500Body mass index (BMI) [Ratio] 37.29 kg/w9VtrkxpChantal Mart Other [employer] Other 02-12-2024 11:45-0500Body gdhiqj879.74 kgChantal Mart Other [employer] Other 02-12-2024 11:45-0500Diastolic blood rcfsager44 mm[Hg] Chantal Mart Other [employer] Other 02-12-2024 11:45-0500Systolic blood izukxjyr057 mm[Hg] Chantal Mart Other [employer] Other 12-19-2023 10:45-0500Body huhujj692.88 cmChantal Mart Other [employer] Other 12-19-2023 10:45-0500Body mass index (BMI) [Ratio] 37.24 kg/q5UqhzqxChantal Mart Other [employer] Other 12-19-2023 10:45-0500Body cvymnf175.56 kgChantal Mart Other [employer] Other 12-19-2023 10:45-0500Diastolic blood jdjyaysx11 mm[Hg] Chantal Mart Other [employer] Other 12-19-2023 10:45-0500Systolic blood xmrbqudt472 mm[Hg] Chantal Mart Other [employer] Other 10-27-2023 15:00-0400Body jsibmc440.88 cmhCantal Mart Other [employer] Other 10-27-2023 15:00-0400Body mass index (BMI) [Ratio] 37.81 kg/p6HfgclqChantal Mart Other [employer] Other 10-27-2023 15:00-0400Body mkexzmuqktt54 [degF]Chantal Mart Other [employer] Other 10-27-2023 15:00-0400Body zbgeaw123.46 kgTamararigoberto Mart Other [employer] Other 10-27-2023 15:00-0400Diastolic blood ysgfrjdd06 mm[Hg] Chantal Mart Other [employer] Other 10-27-2023 15:00-0427ZwT4% (BldA) [Mass fraction]98 % Chantal Mart Other [employer] Other 10-27-2023 15:00-0400Systolic blood peqxuxpy469 mm[Hg] Chantal Mart Other [employer] Other 07-07-2023 10:30-0400Body .88 cmChantal Mart Other [employer] Other 07-07-2023 10:30-0400Body mass index (BMI) [Ratio] 37.16 kg/s9MsnpxpChantal Mart Other [employer] Other 07-07-2023 10:30-0400Body ehmnfi696.29 kgChantal Mart Other [employer] Other 07-07-2023 10:30-0400Diastolic blood fcboekch14 mm[Hg] Chantal Barron Other [employer] Other 07-07-2023 10:30-0400Systolic blood opcdhwfa337 mm[Hg] Chantal Barron Other [employer] Other 03-28-2023 16:15-0400Body exswqq270.88 cmBenjamin Ball Other [employer] Other 03-28-2023 16:15-0400Body mass index (BMI) [Ratio] 37.05 kg/z8Cqjdntqw Ball Other [employer] Other 03-28-2023 16:15-0400Body wroqim699.92 kgBenjamin Ball Other [employer] Other 03-28-2023 16:15-0400Diastolic blood qyfepnza46 mm[Hg] Austin Ball Other [employer] Other 03-28-2023 16:15-0400Respiratory rate16 /minBenjamin Ball Other [employer] Other 03-28-2023 16:15-0400Systolic blood sadhpuyy941 mm[Hg] Austin Ball Other [employer] Other 03-22-2023 11:30-0400Body buxkfm201.88 cmChantal Mart Other [employer] Other 03-22-2023 11:30-0400Body mass index (BMI) [Ratio] 37.29 kg/s9QjkqwdChantal Mart Other [employer] Other 03-22-2023 11:30-0400Body ozijzx228.74 kgTamararigoberto Barron Other [employer] Other 03-22-2023 11:30-0400Diastolic blood revdbzyf59 mm[Hg] Chantal Mart Other [employer] Other 03-22-2023 11:30-6162AuZ2% (BldA) [Mass fraction]97 % Chantal Mart Other [employer] Other 03-22-2023 11:30-0400Systolic blood mozomukk408 mm[Hg] Chantal Mart Other [employer] Other 07-21-2021 14:30-0400Diastolic blood pdjeqjjb97 mm[Hg] Albia [facility] Work Phone: 1(395) 897-833607-21-2021 14:30-0400Heart rate79 /minLorain 1[facility] Work Phone: 1(357) 973-963207-21-2021 14:30-0400Respiratory rate16 /minLorain 1 [facility] Work Phone: 1(222) 410-245707-21-2021 14:30-0134OoQ0% (BldA) [Mass fraction]97 % [facility]ia [facility] Work Phone: 1(260) 349-214907-21-2021 14:30-0400Systolic blood ebyuopkt062 mm[Hg] [facility]ia [facility] Work Phone: 1(755) 239-836707-21-2021 10:43-0400Body wbkses365.3 cmLorain 1[facility] Work Phone: 1(593) 210-807107-21-2021 10:43-0400Body mass index (BMI) [Ratio] 36.54 kg/k5Zbwapd [facility] Work Phone: 1(539) 373-603107-21-2021 10:43-0400Body aeunlx863.84 kgLorain 1[facility] Work Phone: Encounters Encounter DateEncounter TypeCare ProviderFacilityStart: 06-10-2025 End: 99-22-1554bswdkyvzwxWxviczjGiorgio Clark MDFacility:TERRY Killian Start: 03-11-2025 End: 01-19-1535Sngfmk outpatient visit 25 minutesTom Zarate SWEDGER Work Phone: [facility] CareComment on above:Acute cough (Primary Dx); Chest congestion; Mild intermittent asthmatic bronchitis with acute exacerbation (HCC)Start: 03-11-2025 End: 24-75-9461vxxqgokdtdUVHAPIS N AUSTINNot AvailableStart: 02-21-2025 End: 78-05-9499torzebbncjLandzo E Braun MD Work Phone: [facility] Work Phone: Start: 02-21-2025 End: 77-61-9473Wvvvpfe encounter procedureChantal Mart MDSt[facility] Work Phone: Start: 02-14-2025 End: 20-43-4114Disoms outpatient visit 25 minutesPaul S Biedenbach DO Work Phone: [facility] NORWALKComment on above:History of facial trauma (Primary Dx); Nasal septal deviation; Nasal valve collapse; Chronic sinusitis, unspecified locationStart: 02-14-2025 End: 74-35-2415aoszmdemozCBQK S BIEDENBACHNot AvailableStart: 02-14-2025 End: 24-64-7803Okzsyb flowsheetPaul S Biedenbach DO Work Phone: [facility] NORWALKStart: 02-14-2025 End: 19-58-5096Uhslww flowsheetPaul S Biedenbach DO Work Phone: [facility] NORWALKStart: 01-03-2025 End: 62-23-6099Vpykso flowsheetPaul S Biedenbach DO Work Phone: [facility] NORWALKStart: 01-03-2025 End: 50-30-0498Zyozem flowsheetPaul S Biedenbach DO Work Phone: [facility] NORWALKStart: 01-03-2025 End: 29-76-7426Rpawpy outpatient visit 25 minutesPaul S Biedenbach DO Work Phone: [facility] NORGREGKComment on above:Chronic sinusitis, unspecified location (Primary Dx); Laryngopharyngeal reflux (LPR); Hypertrophy of nasal turbinates; History of facial trauma; Nasal septal deviationStart: 01-03-2025 End: 51-76-9664tcduotcnfhHZZT S BIEDENBACHNot AvailableStart: 12-27-2024 End: 51-17-3854buttvlfpnyEtghfmpdqSouthview Medical Center Work Phone: Start: 12-27-2024 End: 97-08-5239Xkwatvt encounter [facility] Phys[facility] Work Phone: Start: 12-11-2024 End: 23-12-8195Dimdge flowsheetPaul S Biedenbach DO Work Phone: [facility] NORWALKStart: 12-11-2024 End: 24-03-7614Uhedax flowsheetPaul S Biedenbach DO Work Phone: [facility] NORWALKStart: 12-11-2024 End: 37-34-4646Grivjn outpatient visit 25 minutesPaul S Biedenbach DO Work Phone: [facility] NORWALKComment on above:Nasal valve collapse (Primary Dx); Chronic sinusitis, unspecified location; Nasal polyp; Hypertrophy of nasal turbinatesStart: 12-11-2024 End: 88-66-0556lwhatvurruXPMW S BIEDENBACHNot AvailableStart: 11-30-2024 End: 94-02-9386fzvcynprwgXHWO S BIEDENBACHNot AvailableStart: 11-30-2024 End: 75-45-8610grkzytmdccRdqxbrzjtSouthview Medical Center Work Phone: Start: 11-30-2024 End: 16-97-2811Hjvtiwcph for general adult medical examination without abnormal findingsJ.W. Ruby Memorial Hospitaltart: 11-30-2024 End: 59-02-6359Hvmzbie encounter procedureHaywood [facility] Work Phone: Start: 11-30-2024 End: 39-72-8536Iesoumf encounter Pili Mart MDJ.W. Ruby Memorial Hospitaltart: 11-21-2024 End: 59-84-5519Ksedrc outpatient visit 25 minutesAdam Navarro MD Work Phone: [facility] HospitalComment on above: Closed fracture dislocation of pelvis with routine healing (Primary Dx)Start: 11-21-2024 End: 14-48-1032Nuzksybtfi hospital visit by physicianyessy Muniz5f X-Ray 2[facility] BolwellComment on above:Pelvic painStart: 11-21-2024 End: 28-80-7702xgfnqvwfyvHPNUVX K [facility]tart: 11-13-2024 End: 95-50-8559zsyregkgkdBBYT S BIEDENBACHNot AvailableStart: 11-13-2024 End: 33-72-7896Zflpsp flowsheetPaul S Biedenbach DO Work Phone: [facility] NORWALKStart: 11-13-2024 End: 99-53-5385Ovtxdk flowsheetPaul S Biedenbach DO Work Phone: [facility] NORWALKStart: 11-13-2024 End: 29-36-2375Lahhxg outpatient new 45 minutesPaul S Biedenbach DO Work Phone: [facility] NORWALKComment on above:History of facial trauma (Primary Dx); Chronic sinusitis, unspecified location; Nasal polyp; Nasal septal deviation; Allergic rhinitis, unspecified seasonality, unspecified triggerStart: 10-19-2024 End: 79-40-0279ssbpdhfforFhlogzsxlSouthview Medical Center Work Phone: Start: 10-19-2024 End: 86-51-8946Aopelte encounter procedureFirsam [facility] Work Phone: Start: 09-26-2024 End: 28-15-0589shbmmooysoPdqjex E Braun MD Work Phone: [facility] Work Phone: Start: 09-26-2024 End: 79-12-0045Tzfvwgz encounter procedureChantal Mart MD Work Phone: [facility] Work Phone: Start: 09-04-2024 End: 16-40-0164aptczshnygJJFQFWJOUpper Valley Medical Centertart: 09-03-2024 End: 95-58-7579Zexvzvx encounter procedureChantal Mart MD Work Phone: [facility] Work Phone: Start: 33-85-1882Awe-patient / Non-visitChantal Mart MD Work Phone: [facility] Work Phone: Start: 83-18-3509Kiq-patient / Non-visitChantal Mart MD Work Phone: [facility] Work Phone: Start: 08-07-2024 End: 50-14-8207jqwvjmyezqTESUSSLCUpper Valley Medical Centertart: 07-16-2024 End: 12-71-3634atotocozouGrkfptbGiorgio Clark MDFacility:TERRY Killian Start: 07-11-2024 End: 59-08-9645Vxuzret encounter procedureChantal Mart MD Work Phone: [facility] Work Phone: Start: 14-37-5553Woe-patient / Non-visitChantal Mart MD Work Phone: [facility] Work Phone: Start: 07-09-2024 End: 38-47-3199Hekhafd encounter procedureChantal Mart MD Work Phone: [facility] Work Phone: Start: 07-09-2024 End: 85-32-5519jcpfwqzfyeVftfuk E BraunFacility:[facility] Hospitaltart: 07-02-2024 End: 58-80-5260Dkzzkvz encounter procedureChantal Mart MD Work Phone: [facility]St[facility] Work Phone: Start: 06-22-2024 End: 71-87-5323ynpkdttydgGCDVMHESUpper Valley Medical Centertart: 06-22-2024 End: 23-06-3705wsurkbtgfbLWKKDXDOUpper Valley Medical Centertart: 05-23-2024 End: 94-61-4342Txhlas outpatient visit 25 minutesAdam Navarro MD Work Phone: [facility] HospitalComment on above: Pelvic pain (Primary Dx)Start: 05-23-2024 End: 01-77-8810Fzuzzkfzbt hospital [facility] Flavio5f X-Ray 2[facility]langer [facility] hospitalComment on above:Pelvic painStart: 05-23-2024 End: 15-15-4277jdhbhaghzxBNWRIC K [facility]tart: 02-29-2024 End: 42-33-8851izbfsplcxqYBWMYS K [facility] Hospitaltart: 02-01-2024 End: 35-53-3502Okyrzu follow up visit related to original Daryl Navarro MD Work Phone: uh [facility] CenterComment on above:Pelvic pain (Primary Dx)Start: 02-01-2024 End: 56-17-1823Uiiltpjcnp hospital [facility] by physicianMon[facility]1200 X-Ray 2[facility] DakotasComment on above:Pelvic painStart: 02-01-2024 End: 80-14-6867nkehtzmidcVSWXQCHiggins General Hospital AmbulatoryStart: 12-28-2023 End: 35-27-2585Fpshke follow up visit related to original Daryl Navarro MD Work Phone: [facility] HealthComment on above:Pelvic painStart: 12-28-2023 End: 42-69-3454Accrpmrrbj hospital visit by physicianMon[facility] Hospital1200 X-Ray 3[facility] DakotasComment on above:Pelvic painStart: 12-28-2023 End: 02-18-9055cjspziooytDHAYYMHiggins General Hospital AmbulatoryStart: 12-08-2023 End: 14-65-9209Qnbeexsllo and management of inpatientAdam Navarro MD Work Phone: [facility] Darrian Zoe 6Comment on above:Pelvic pain (Primary Dx); Acute postoperative painStart: 11-30-2023 End: 58-42-2479Iecpdk outpatient new 60 minutesAdam Navarro MD Work Phone: [facility] HealthComment on above:Pelvic pain (Primary Dx)Start: 11-30-2023 End: 48-45-8267Ocknocjrya hospital visit by physicianMon[facility] Hospital1200 X-Ray 2[facility] DakotasComment on above:Pelvic painStart: 11-30-2023 End: 27-65-8143ejpokklxmcPGTIIYLifeBrite [facility] AmbulatoryStart: 09-19-2023 End: 46-87-9363blsdtdwaorMrmlat Braun Other [facility] Other Start: 89-81-0753Sfgpml outpatient visit 15 minutes Chantal Rodriguez [facility] ClinicStart: 09-16-2023 End: 73-42-4562Qukgagffp department patient visitKaylinn A DokkenFacility:[facility] Start: 08-17-2023 End: 88-21-8387vbhfescgsyDditds Mart Other [employer] Other Start: 81-20-3868Dgjhffmuj encounterMarcia Jennifer [facility] ClinicStart: 07-26-2023 End: 43-98-6313wanepmarssOoryud Mart Other [employer] Other Start: 28-51-0063Kkxenp outpatient visit 15 minutes Chantal [facility] ClinicStart: 07-18-2023 End: 06-19-7836hlhquxykytOwkrxj Mart Other [employer] Other Start: 12-71-0782Npdhtrwzt encounterMarcia Jennifer [facility] Medical ClinicStart: 06-03-2023 End: 68-80-5305iecidnzxvmGyqnsr Mart Other [employer] Other Start: 52-17-6100Pcaxoq outpatient visit 15 minutes Chantal [facility] ClinicStart: 05-27-2023 End: 55-79-7553psypqbapxoOhvwdk Mart Other [employer] Other Start: 59-32-9740Ukrwbgsbi encounterMarcia Jennifer [facility] Medical ClinicStart: 02-11-2023 End: 70-55-2473fdjhhhzdzdKkynih Mart Other [employer] Other Start: 26-81-6822Nbohyj outpatient visit 15 minutes Chantal [facility] ClinicStart: 86-90-8659Muozptlpy encounterMarcia Jennifer [facility] Medical ClinicStart: 12-10-2022 End: 32-92-8207qplmlginrmAE CHANTAL Gonzalez [facility] CenterBon[facility] Other Start: 12-02-2022(Televisit) TelevisitChantal [facility]ahona [facility] ClinicStart: 12-02-2022 End: 59-98-1925qtgtzfgqfjCiziyg Mart Other [employer] Other Start: 11-02-2022 End: 67-99-3813vvpfittxhdWheraclw Ball Other [employer] Other Start: 61-93-3122Bgrznh outpatient visit 15 minutes Austin [facility] ClinicStart: 10-29-2022 End: 38-32-0727nnwkkljeyyIfrzoe Mart Other [employer] Other Start: 24-62-5957Tdsmpmuhm encounterChantal [facility]ahona [facility] ClinicStart: 10-27-2022 End: 05-16-3126hcahggmlzfLcgbzl Mart Other [facility] Other Start: 93-56-1071Lzifcj outpatient visit 15 minutes Chantal [facility]ahona [facility] ClinicStart: 09-16-2022 End: 26-26-6405biuruxpenqAA ALLYSON S PANTOJA .Facility:E1Wxloh: 07-06-2022 End: 69-61-3458bgxlhulotgHO CHANTAL Crawfordcility:J0Rvglu: 06-24-2022 End: 45-90-1196isjrliwphtEJ ALLYSON S PANTOJA .Facility:F0Tuoyx: 06-01-2022 End: 71-73-1771qotdbpskrdCJ ALLYSON S PANTOJA .Facility:C1Cbuht: 05-13-2022 End: 67-26-1124rrcvpyqujyBJ ALLYSON S PANTOJA .Facility:V3Hdlpo: 04-20-2022 End: 11-40-9493vzhcafjqnmCJ ALLYSON S PANTOJA .Facility:B1Hssdp: 04-01-2022 End: 70-19-6807mlapggpnewBYIQ SOLIS .Facility:M9Pgdvn: 03-31-2022 End: 16-95-0006ufzdceebawJC MARCIA E BRAUNFacility:G1Sehau: 12-24-2021 End: 96-95-0680igljqihnkoPEMiranda MARTFacility:V3Wueed: 02-25-2021 End: 30-94-8006vtxcuwzaeqTLWWKC [facility] Peak Hospitaltart: 02-25-2021 End: 17-87-4160Jlyxiqgmci hospital visit by Cash Shah MD Work Phone: [facility] CT ScanComment on above:Arrived Lumbar radiculopathy; Lumbar spondylosis; Bilateral low back pain with sciatica, sciatica laterality unspecified, unspecified chronicity Procedures DateProcedureProcedure DetailPerforming ClinicianStart: 23-10-4271Yovbhggruidr myocardial perfusion stress studyChantal Mart MD Work Phone: Start: 65-38-5171ADPSBKQDP PATIENTJOCOLLIS P. HUNTINGTON HOSPITALStart: 35-90-9612CSANUDGL CERTIFICATIONJOCOLLIS P. HUNTINGTON HOSPITALStart: 28-00-4396BFCLF DISCHARGE DIETJOCOLLIS P. HUNTINGTON HOSPITALStart: 09-57-4575BRFQJODVQJ ADMINISTRATIONJOCOLLIS P. HUNTINGTON HOSPITALStart: 69-81-3283RTTXJO PROVIDER (DO NOT PROMPT FOR PARAMETERS)[facility]Start: 87-67-8079CHY DISCHARGE POTENTIALSTATE REFORM SCHOOL FOR BOYSStart: 95-28-4601TRC LEVEL OF CARE [facility] BOYSStart: 17-09-6312KID RECEIVING AGENCY STANDING ORDERSSTATE REFORM SCHOOL FOR BOYS Start: 89-09-8120JFA REHAB POTENTIALJOCOLLIS P. HUNTINGTON HOSPITALStart: 86-32-3997GOCRR SIGNS [facility]Start: 71-69-4211Ssigh metabolic 2000 panel - Serum or PlasmaSTATE REFORM SCHOOL FOR BOYSStart: 28-77-5443GLY W Auto Differential panel - BloodSTATE REFORM SCHOOL FOR BOYSStart: 96-58-5267Plvvklunr [Mass/volume] in Serum or PlasmaJOCOLLIS P. HUNTINGTON HOSPITALStart: 38-23-1280Zdudu metabolic panel calcium Gerda Zendejas MD Work Phone: Start: 61-01-7418Ljhrn metabolic 2000 panel - Serum or PlasmaJOSHUA NAPORAStart: 98-68-0348JZH W Auto Differential panel - BloodJOSHUA NAPORAStart: 18-27-3574Tgoorrium [Mass/volume] in Serum or PlasmaJOSHUA NAPORA Start: 01-66-2442Clkxi metabolic panel calcium totalRywilmar Zendejas MD Work Phone: Start: 81-66-5830IXP 12-LEADJOSHUA NAPORAStart: 92-59-0483Rildl metabolic 2000 panel - Serum or PlasmaJOSHUA NAPORAStart: 88-66-7796VHN W Auto Differential panel - BloodJOSHUA Start: 12-12-2023 Magnesium [Mass/volume] in Serum or PlasmaJOSHUA NAPORAStart: 62-82-6569Visan metabolic panel calcium Gerda Zendejas MD Work Phone: Start: 43-12-5547OCE 12-LEADJOSHUA NAPORAStart: 71-48-7655Jgz routine ecg w/least 12 lds trcg only w/o i&rRomeo Marie-Jose Guadalupe DPM Work Phone: Start: 15-04-8957NB ABDOMEN 1 [facility]ITALStart: 34-32-2036Eochybtpid exam abdomen 1 Jeanette Cai MD Work Phone: Start: 11-73-3301TXDUKZBTVSW TUBE INSERTIONJOCOX [place] Start: 23-15-8402UJ ABDOMEN 1 [facility]ITALStart: 73-64-6258Ikklojpojj exam abdomen 1 Sigrid Berman MD Work Phone: Start: 25-28-5816Pqzet metabolic 2000 panel - Serum or PlasmaJOSHUA NAPORAStart: 88-73-4158FWD W Auto Differential panel - BloodJOSHUA NAPORAStart: 85-53-2447Dogxn metabolic panel calcium shiraRywilmar Zendejas MD Work Phone: Start: 57-85-5953WGZYK OXIMETRY, CONTINUOUSJOSHUA NAPORAStart: 40-92-5894APLID OXIMETRY, CONTINUOUSRomeo Marie-Jose Gaudalupe DPM Work Phone: Start: 01-21-7326TXDYJ TO INPATIENTConemaugh Nason Medical Centerart: 33-56-3584RD FLUORO IMAGES NO CHARGEConemaugh Nason Medical Centerart: 00-21-2508UZ PELVIS 1-2 VIEWSSTATE REFORM SCHOOL FOR BOYSStart: 28-64-6529RJ tomography Unspecified body regionAdam Navarro MD Work Phone: Start: 10-91-5274Opzwrtwgsh examination pelvis 1/2 viewsdarrius Navarro MD Work Phone: Start: 80-24-5583GLQHY/VERIFY ABORHConemaugh Nason Medical Centerart: 01-76-4455YXNV AND SCREENConemaugh Nason Medical Centerart: 09-90-1461Leeaw typing serologic rh (d)Benny Dacosta DO Work Phone: Start: 12-08-2023 End: 66-38-0256Kioy ant pelvic bone fx&/dislc int fixj if pfrJodarrius Navarro MD Work Phone: Start: 65-94-6427CRXKT IN OUTPATIENT/HOSPITAL AMBULATORY SURGERYConemaugh Nason Medical Centerart: 37-35-0602SKHH CODEChoate Memorial Hospital: 22-77-5167FEWK REQUEST OPERATING ROOMConemaugh Nason Medical Centerart: 41-96-8353YD PELVIS 3+ [facility] Centerart: 94-31-2371Hs lumbar spine w/contrast materialJoni Shellie Elder APRN - BIOMETRICS SPECIALIST Work Phone: start: 08-97-9433Sfdshafmr procedure myelography/ct lumbarJoni Shellie Vogt CNP Work Phone: Plan of Treatment DateCare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
== END 2025-07-03 12:39 | disposition home or self-care (01) ==
LOC: PM 12:38
PROVIDERS: PCP Family Medicine; Visit Provider Nurse Practitioner
DX: M46.1 Sacroiliitis, not elsewhere classified (principal); M48.062 Spinal stenosis, lumbar region with neurogenic claudication; M51.369 Other intervertebral disc degeneration, lumbar region without mention of lumbar back pain or lower extremity pain; M19.011 Primary osteoarthritis, right shoulder; M25.511 Pain in right shoulder; Z79.891 Long term (current) use of opiate analgesic; M47.816 Spondylosis without myelopathy or radiculopathy, lumbar region; M79.18 Myalgia, other site
CPT/HCPCS: G0463

== ENCOUNTER 2025-07-22 10:53 | Day surgery (SDC) | payer BC, SELFPAY ==
[2025-07-22 11:13] VITALS: BP 138/76; PULSE 66; TEMP 36.5; O2SAT 97
[2025-07-22 11:59] VITALS: BP 149/67; PULSE 74; O2SAT 98
[2025-07-22 12:00] VITALS: BP 150/76; PULSE 70; O2SAT 98
[2025-07-22] MEDS: IOHEXOL 240 MG/ML - 10 ML VIAL 24 MG INJ (12:01)
[2025-07-22] MEDS: BUPIVACAINE HCL 0.25% PF 25 MG/10 ML VIAL 4 ML INJ (12:01)
[2025-07-22] MEDS: METHYLPREDNISOLONE ACETATE 40 MG/ML VIAL 80 MG INJ (12:02)
[2025-07-22] MEDS: LIDOCAINE HCL 2% 400 MG/20 ML MDV INJ (12:02)
--- NOTE | 2025-07-22 12:03 | W.PM.PROCNOT ---
Date of procedure: 07/22/25 Pre-op diagnosis: Pain due to bilateral sacroiliitis Post-op diagnosis: same as pre-op Procedure: Procedure: Bilateral sacroiliac joint injection Medications: Bupivacaine 0.25% 3cc, depomedrol 40mg x2 After informed consent was obtained, the patient was brought to the medical procedure unit and placed in the prone position, when a timeout was completed verifying correct patient, procedure, site, positioning, implant, and/or special equipment.? The skin overlying the area was prepped and draped in standard sterile fashion using alcohol.? A 25-gauge needle was inserted towards the left sacroiliac joint under direct fluoroscopic imaging.? Needle tip was advanced until the joint was encountered.? We instilled a total of 2 mL of solution.? The same procedure was then completed on the right side.? Postoperatively needles were removed.? The patient tolerated the procedure well without complication.? The patient reported reduction in pain symptoms postoperatively. Anesthesia: Local Surgeon: Portia Clark Pathology: none sent Condition: stable Disposition: no change
== END 2025-07-22 12:07 | disposition home or self-care (01) ==
PROVIDERS: PCP Family Medicine; Visit Provider Anesthesiology
DX: M46.1 Sacroiliitis, not elsewhere classified (principal); G89.29 Other chronic pain
CPT/HCPCS: 27096; J0665; J1010; Q9966